=== PATIENT | female | born 1960 | race Caucasian/White ===

== ENCOUNTER 2019-01-18 15:32 | Outpatient (REF) | payer BC, SELFPAY | END 2019-01-18 15:52 | LOC: NCHCN 15:32 | PROVIDERS: PCP Nurse Practitioner Family; Visit Provider Nurse Practitioner Family | DX: R30.0 Dysuria (principal) | CPT/HCPCS: 87077; 87086; 87186 ==

== ENCOUNTER 2019-09-01 17:12 | Emergency (ER) | payer BC, SELFPAY ==
[2019-09-01] VITALS (33 sets, daily range): BP systolic 91–147; BP diastolic 46–89; PULSE 57–96; RESP 11–27; TEMP 37; O2SAT 93–100
--- NOTE | 2019-09-01 17:14 | ED.GENADUL_ITS ---
Discharge Plan Disposition Patient Disposition: HOME Condition: Stable Discharge Details Chief Complaint: GenMedical Clinical Impression: Pneumonia, Hypoglycemia Primary Care Provider: Sara Patterson ED Provider: Derek Dejesus Home Meds and New Rx's Prescriptions: New levofloxacin [Levaquin] 750 mg tablet 750 mg PO DAILY 5 Days Qty: 5 RF: 0 Continued omeprazole 20 MG capsule,delayed release(DR/EC) 20 mg PO DAILY Qty: 30 RF: 0 gabapentin 100 MG capsule 300 mg PO TID RF: 0 atorvastatin 10 mg tablet 10 mg PO DAILY RF: 0 lisinopril 20 mg tablet 20 mg PO DAILY RF: 0 Discharge Instructions Instructions: Pneumonia (ED) Additional Instructions: Take the antibiotics until finished. Drink plenty fluids and get plenty of rest. Eat a well-balanced diet. Refrain from excessive alcohol use. Follow-up with your primary care doctor in 1 week. Return to the emergency department with any worsening or new concerning symptoms. Discharge Data Discharge Physician: Nishi Barber Medical Decision Making <Nishi Barber DO - Last Filed: 09/01/19 19:36> 1720 -- 59-year-old female with a history of alcoholism, chronic renal disease and ascites, COPD pancreatitis and tobacco abuse who presents for generalized weakness and feelings of anxiety. Fingerstick glucose 37 per EMS, increased to 120s after D10. Patient is awake and alert, answering questions, appears mildly intoxicated. No focal deficits. No evidence of trauma. Will check screening labs, urinalysis, CT head and chest x-ray. Will give banana bag and tray of food. 1899 --labs and imaging reviewed. White blood cell count 12. Normal coags. Potassium 3.3. Magnesium 1.4. Bicarb 19.7. Anion gap 17.3. Troponin negative. Alcohol 217. Chest x-ray notes a right middle lobe opacity. CT head negative. In the setting of chronic cough, smoking and alcohol use with elevated with blood cell count, will treat for pneumonia. Will give a dose of potassium p.o. We will continue IV fluids. Awaiting to obtain urine sample. Pt states she would rather go home. She states that she feels much better. Repeat fingerstick 102. We will plan to continue to monitor glucose to ensure it stays within normal range and recheck BMP after additional fluids. 1999 --Case endorsed to Dr. Dejesus to follow-up on repeat BMP and urinalysis and final disposition. Medical Records Medical records reviewed: Yes I reviewed the patient's medical records. Imaging Data Radiologic Study: Radiologist's impression: CT Head Without Contrast Exam date and time: 09/01/2019 5:24 PM Age: 59 years old Clinical indication: Other: Generalized weakness, R/O acute CVA TECHNIQUE: Imaging protocol: Computed tomography of the head without contrast. Radiation optimization: All CT scans at this facility use at least one of these dose optimization techniques: automated exposure control; mA and/or kV adjustment per patient size (includes targeted exams where dose is matched to clinical indication); or iterative reconstruction. COMPARISON: CT HEAD AND CSPINE W/O CONTRAST 02/25/2017 10:14 AM FINDINGS: Brain: Normal. No hemorrhage. Unremarkable white matter. No mass effect. Ventricles: Normal. No ventriculomegaly. Bones/joints: Unremarkable. No acute fracture. Sinuses: Visualized sinuses are unremarkable. No fluid levels. Mastoid air cells: Visualized mastoid air cells are well aerated. Soft tissues: Unremarkable. IMPRESSION: No acute intracranial abnormality. XR Chest, 2 Views Exam date and time: 09/01/2019 6:13 PM Age: 59 years old Clinical indication: Other: Low blood sugar, R/O acute disease TECHNIQUE: Imaging protocol: XR of the chest Views: 2 views. COMPARISON: No relevant prior studies available. FINDINGS: Lungs: There is slight hyperexpansion of the lung brady, suggestive of emphysema. There is a patchy opacity in the right lower lung zone, concerning for pneumonia in the appropriate clinical setting. Pleural space: No pleural effusion. No pneumothorax. Heart/Mediastinum: Unremarkable. No cardiomegaly. Bones/joints: Unremarkable. IMPRESSION: Patchy opacity in the right lower lung zone concerning for pneumonia in the appropriate clinical setting. Lab Data Lab results reviewed: Yes I reviewed the patient's lab results. ECG Data Attestation: I personally reviewed and interpreted this ECG (s) as follows: Interpretation: Rate of 58, sinus, no acute ST elevation or depression. MT 160. QTc 454. QRS 98. <Derek Dejesus MD - Last Filed: 09/01/19 21:12> patient remains stable, ambulating with stable gait unassisted clinically sober without complaints. Second bmp minimal improvement in anion gap, she is requesting d/c as she is tolerating PO and feels well and has capacity to make her own decisions and understands risks of worsening anion gap acidosis including and disability. She will f/u with pcp and return precautions given HPI <Nishi Stanley Barber, DO - Last Filed: 09/01/19 19:36> General Mode of arrival: EMS . Date/Time Provider Initiated Documentation: 09/01/19 17:12 . Limitations to Documentation: no limitations . Information obtained by: patient . HPI Narrative: Patient is a 59-year-old female with a history of chronic alcoholism, tobacco abuse, chronic liver disease and cirrhosis, COPD and pancreatitis who presents with generalized weakness for the past several days. She states she has not been sleeping well due to anxiety and panic attacks from verbal arguments with her neighbors. She drinks alcohol daily and states she had a couple shots of vodka this morning which is not the usual alcohol of choice for her as she usually drinks wine. She states she has not been eating much. She denies any physical injury or trauma. She denies any unilateral weakness or numbness. She states she has a chronic smoker's cough but denies any fever, sputum production, chest pain or shortness of breath. She denies any abdominal pain, vomiting, diarrhea or urinary symptoms. She denies any recent travel. EMS states that her fasting sugar was 37. She was given a dose of D10 and her blood sugar increased to 120s. Related Data Home Medications Medication Instructions Recorded Confirmed gabapentin 300 mg PO TID 12/21/16 09/01/19 omeprazole 20 mg PO DAILY #30 capsule. 08/31/17 09/01/19 atorvastatin 10 mg PO DAILY 09/01/19 09/01/19 levofloxacin [Levaquin] 750 mg PO DAILY 5 Days #5 tab 09/01/19 lisinopril 20 mg PO DAILY 09/01/19 09/01/19 Previous Rx's Medication Instructions Recorded omeprazole 20 mg PO DAILY #30 capsule. 08/31/17 levofloxacin [Levaquin] 750 mg PO DAILY 5 Days #5 tab 09/01/19 Allergies Allergy/AdvReac Type Severity Reaction Status Date / Time bacitracin Allergy Mild localized Verified 09/01/19 17:27 [From Neosporin redness ([id number])] neomycin Allergy Mild localized Verified 09/01/19 17:27 [From Neosporin redness ([id number])] polymyxin B Allergy Mild localized Verified 09/01/19 17:27 [From Neosporin redness ([id number])] Review of Systems <Nishi Barber DO - Last Filed: 09/01/19 19:36> All systems reviewed & are unremarkable except as noted in HPI and below Constitutional Constitutional: Reports as per HPI, Denies chills, Denies fever(s) and Reports weakness Eyes Eyes: Denies blurry vision ENT Ears, Nose, Mouth, and Throat: Denies dizziness, Denies sore throat and Denies throat swelling Cardiovascular Cardiovascular: Denies chest pain and Denies dyspnea Respiratory Respiratory: Denies cough and Denies dyspnea Gastrointestinal Gastrointestinal: Denies abdominal pain, Denies diarrhea and Denies vomiting Genitourinary Genitourinary: Denies hematuria and Denies dysuria Musculoskeletal Musculoskeletal: Denies back pain and Denies numbness Integumentary/Breasts Skin/Breast: Denies lesions and Denies rash Neurologic Neurologic: Denies dizziness, Denies localized weakness, Denies numbness and Reports weakness Allergic/Immunologic Allergic/Immunologic: Denies throat swelling PFSH <Nishi Barber DO - Last Filed: 09/01/19 19:36> Medical History (Updated 09/01/19 @ 19:04 by Nishi Barber DO) Alcohol abuse Ascites Bilateral leg pain Bilateral lower extremity edema Cachexia Chest pain Chronic vomiting COPD (chronic obstructive pulmonary disease) Diastolic dysfunction Folate deficiency anemia Frequent falls Gastroesophageal reflux disease Hair loss Hepatic fibrosis Hx pulmonary embolism Hypomagnesemia Malnutrition Pancreatitis Tobacco dependence syndrome Ulcer of lower extremity Unintentional weight loss Vitamin D deficiency Surgical History (Updated 02/15/18 @ 14:34 by [employer] [place]) ENT/Nasal surgery (~2007) foot surgery (~2000) Ligation of fallopian tube (~1999) punch biopsy, skin of ankle, right lateral (11/24/16) negative for malignancy, sparse inflammation and reactive blood vessels Social History Smoking/Tobacco Use Status: Current every day Alcohol Intake: current Alcohol Intake frequency: 3 or more drinks per day Alcohol type: wine Drug use: Occasionally Substance use type: marijuana Do you feel safe at home: No Do you feel safe in your relationship?: Yes Additional Social history: has a new neighbor that is verbally abusive History History Para 0 Hx # Term Pregnancies Multiple births Hx # Pregnancies Ectopic pregnancies AB induced Hx Number of Living Children AB spontaneous Exam <Nishi Barber DO - Last Filed: 09/01/19 19:36> Const General: ill appearing chronically Orientation: alert and awake HENMT Head: normal to inspection Ears: hearing grossly normal bilaterally and external ears normal General nose exam: external nose normal Face and sinus: normal facial exam Mouth: oral mucosae normal Teeth and gingiva: dentition normal Throat: posterior oropharynx normal Eyes General: appearance normal, both eyes and all related structures Eyelids: eyelids normal Pupils: PERRL EOM: EOM intact bilaterally Neck Neck: normal visual inspection Lymphatic: no lymphadenopathy noted Chest Chest: normal inspection of the chest Resp Effort & Inspection: normal respiratory effort and able to speak in complete sentences Auscultation: clear to auscultation bilaterally Cardio Rate: regular rate Rhythm: regular rhythm GI Inspection: normal to inspection Palpation: soft, not firm, no guarding, no hepatosplenomegaly, no masses and nontender Auscultation: normal bowel sounds Back/Spine/Pelvis Cervical Spine: No cervical spinal tenderness Thoracic/Lumbar Spine: No thoracic spinal tenderness and No lumbar spinal tenderness Skin General skin exam: no rashes or lesions noted Neuro General: patient alert, patient awake and moves all extremities Cognition: normal cognition Speech: speech normal Gait: normal gait Motor: muscle tone normal throughout and strength 5/5 throughout Sensory Exam: no sensory deficits noted Extrem General: normal to inspection, full ROM and capillary refill normal Psych Appearance: disheveled Mental Status: mental status grossly normal Speech and Movement: speech and movement normal Mood: anxious mood Affect: irritable affect Thought Process: normal Sign Out <Nishi Barber DO - Last Filed: 09/01/19 19:36> Sign Out Data: Sign Out Comment: Follow-up on repeat BMP after fluids, urinalysis and final disposition. Patient would prefer to go home. If labs improve and patient continues to improve, ok to go home with family member or friend or RCT. Last updated by Nishi Barber DO at 09/01/19 19:38
--- NOTE | 2019-09-01 17:15 | DI.CT_ITS ---
EXAM: CT HEAD WO CLINICAL HISTORY: generalized weakness, r/o acute cva. TECHNIQUE: Imaging Protocol: Axial computed tomography images with coronal and sagittal reformatted images were created and reviewed COMPARISON: HEAD AND CSPINE W/O CONTRAST from 02/25/2017 FINDINGS: Ventricles and Extra axial spaces: Normal in size and morphology for the patient's age. Hemorrhage: None. Cerebral parenchyma: Normal. Midline shift: None. Brainstem/Cerebellum: Normal. Calvarium: Normal. Visualized Paranasal sinuses/Mastoids: Clear. Soft Tissues: Unremarkable. IMPRESSION: No acute intracranial process. RADIATION DOSE DELIVERED: Total DLP DATA REPOSITORY: All CT scans at this facility are submitted to the National Radiology Data Registry (NRDR) Dose Index Registry (DIR) with the [employer] (ACR). RADIATION OPTIMIZATION: All CT scans at this facility use at least one of these dose optimization te chniques: automated exposure control; mA and/or kV adjustment per patient size (includes targeted exa ms where dose is matched to clinical indication); or iterative reconstruction.
[2019-09-01 17:58] LABS: Abs Immature Grans 0.06 k/cumm (0.0-0.09); Absolute Basophil Count 0.07 k/cumm (0.0-0.2); Absolute Eosinophil Count 0.02 k/cumm (0.0-0.7); Absolute Monocyte Count 0.48 k/cumm (0.11-0.7); Basophils % 0.6; Eosinophils % 0.2; HCT 37.5 % (36.0-46.0); HGB 12.6 g/dL (12.0-15.5); Immature Grans % 0.5 %; Mean Corp. HGB Concentration 33.6 g/dL (32.0-36.0); Mean Corpuscular Hemoglobin 34.2 pg (27.0-33.0); Mean Corpuscular Volume 101.9 fL (80-95); Mean Platelet Volume 10.4 fL (8.0-11.0); Monocytes % 3.9; Neutrophils % 80.8; Platelet Count 346 x1000/uL (130-400); RBC 3.68 m/cumm (4.00-5.20); RBC Distribution Width 16.1 % (11.7-14.6); White Blood Cell Count 12.39 k/cumm (4.4-10.8)
[2019-09-01 18:09] LABS: Absolute Lymphocyte Count 1.73 k/cumm (1.2-3.4); Absolute Neutrophil Count 10.01 k/cumm (1.2-6.7)
[2019-09-01 18:23] LABS: INR 0.9 (0.9-1.1); PTT Activated 24.5 sec (21.0-31.4); Prothrombin Time 9.5 sec (9.3-11.0)
[2019-09-01] MEDS: MAGNESIUM SULFATE 8.12 MEQ, MULTIVITAMIN 10 ML, THIAMINE 100 MG, FOLIC ACID 1 MG in Nor... 168.867 MG IV (18:25)
--- NOTE | 2019-09-01 18:25 | DI.RAD_ITS ---
EXAM: XR CHEST 2V PA LATERAL CLINICAL HISTORY: low blood sugar, r/o acute disease TECHNIQUE: 2D digital imaging was performed. COMPARISON: CHEST 2 VIEWS PA,LAT from 11/28/2016 FINDINGS: Exam is somewhat limited by overlying clothing and/or sheets. There is a question of a right lower lo be infiltrate. There are underlying emphysematous and fibrotic changes. Heart size is within normal l imits. IMPRESSION: Question of a right lower infiltrate.
[2019-09-01] MEDS: Thiamine 200 MG/2 ML VIAL (18:28)
[2019-09-01] MEDS: Folic Acid 50 MG/10 ML VIAL (18:28)
[2019-09-01] MEDS: Normal Saline 1,000 ML 1000 ML IV ×2 (18:29→19:42)
[2019-09-01] MEDS: Normal Saline Flush 10 ML SYR IVP (18:29)
--- NOTE | 2019-09-01 18:30 | DI.VRAD_ITS ---
PROCEDURE INFORMATION: Exam: CT Head Without Contrast Exam date and time: 09/01/2019 5:24 PM Age: 59 years old Clinical indication: Other: Generalized weakness, R/O acute CVA TECHNIQUE: Imaging protocol: Computed tomography of the head without contrast. Radiation optimization: All CT scans at this facility use at least one of these dose optimization techniques: automated exposure control; mA and/or kV adjustment per patient size (includes targeted exams where dose is matched to clinical indication); or iterative reconstruction. COMPARISON: CT HEAD AND CSPINE W/O CONTRAST 02/25/2017 10:14 AM FINDINGS: Brain: Normal. No hemorrhage. Unremarkable white matter. No mass effect. Ventricles: Normal. No ventriculomegaly. Bones/joints: Unremarkable. No acute fracture. Sinuses: Visualized sinuses are unremarkable. No fluid levels. Mastoid air cells: Visualized mastoid air cells are well aerated. Soft tissues: Unremarkable. IMPRESSION: No acute intracranial abnormality. Dictated and Authenticated by: Chery Connell MD. Ordering:ZAY Almodovar MD
--- NOTE | 2019-09-01 18:34 | DI.VRAD_ITS ---
PROCEDURE INFORMATION: Exam: XR Chest, 2 Views Exam date and time: 09/01/2019 6:13 PM Age: 59 years old Clinical indication: Other: Low blood sugar, R/O acute disease TECHNIQUE: Imaging protocol: XR of the chest Views: 2 views. COMPARISON: No relevant prior studies available. FINDINGS: Lungs: There is slight hyperexpansion of the lung brady, suggestive of emphysema. There is a patchy opacity in the right lower lung zone, concerning for pneumonia in the appropriate clinical setting. Pleural space: No pleural effusion. No pneumothorax. Heart/Mediastinum: Unremarkable. No cardiomegaly. Bones/joints: Unremarkable. IMPRESSION: Patchy opacity in the right lower lung zone concerning for pneumonia in the appropriate clinical setting. Dictated and Authenticated by: Chery Connell MD. Ordering:ZAY Almodovar MD
[2019-09-01 18:57] LABS: ALT 62 U/L (14-59); AST 113 U/L (15-37); Albumin 3.8 g/dL (3.4-5.0); Alkaline Phosphatase 80 U/L (46-116); Anion Gap 17.3 mmol/L (3-11); BUN 22 mg/dL (7-18); Bilirubin, Total 0.3 mg/dL (0.2-1.0); CO2 19.7 mmol/L (21.0-32.0); CREATININE 0.88 mg/dL (0.55-1.02); Calcium 8.4 mg/dL (8.5-10.1); Chloride 99 mmol/L (98-107); ETHANOL BLOOD 217.9 mg/dL (<3); Glucose 96 mg/dL (74-106); Magnesium 1.4 mg/dL (1.8-2.4); Potassium 3.3 mmol/L (3.5-5.1); Sodium 136 mmol/L (136-145)
[2019-09-01 19:01] LABS: Troponin I < 0.05 ng/Ml (<0.06)
[2019-09-01] MEDS: levoFLOXacin 500 MG, levoFLOXacin 250 MG 750 MG PO (19:20)
[2019-09-01] MEDS: Potassium Chloride 20 MEQ TABCR 40 MEQ PO (19:20)
[2019-09-01 20:55] LABS: Anion Gap 16.7 mmol/L (3-11); BUN 19 mg/dL (7-18); CO2 16.3 mmol/L (21.0-32.0); Calcium 7.4 mg/dL (8.5-10.1); Chloride 103 mmol/L (98-107); Glucose 155 mg/dL (74-106); Potassium 3.1 mmol/L (3.5-5.1); Sodium 136 mmol/L (136-145)
[2019-09-01 20:57] LABS: Bilirubin Negative (Negative); Blood Negative (Negative); Clarity Clear (Clear); Glucose Negative (Negative); Ketones Trace mg/dL (Negative); Leukocyte Esterase Negative (Negative); Nitrite Negative (Negative); Urobilinogen 0.2 EU/dL (Up TO 0.2); pH 5.5 (5-8)
== END 2019-09-01 21:25 | disposition home or self-care (01) ==
PROVIDERS: Physician Assistant; Emergency Provider Emergency Medicine; PCP Nurse Practitioner Family
DX: J18.9 Pneumonia, unspecified organism (principal); E16.2 Hypoglycemia, unspecified; F10.220 Alcohol dependence with intoxication, uncomplicated; Y90.7 Blood alcohol level of 200-239 mg/100 ml; E87.6 Hypokalemia; R91.1 Solitary pulmonary nodule; K70.31 Alcoholic cirrhosis of liver with ascites; J44.9 Chronic obstructive pulmonary disease, unspecified; F17.210 Nicotine dependence, cigarettes, uncomplicated
CPT/HCPCS: 36415; 36416; 80048; 80053; 82962; 93005; 96361; 96365; 96366; 99285; 70450; 71046; 80320; 81003; 83735; 84484; 85025; 85610; 85730; 93010

== ENCOUNTER 2020-04-18 09:17 | Emergency (ER) | payer BC, SELFPAY ==
--- NOTE | 2020-04-18 09:15 | DI.RAD_ITS ---
EXAM: XR SHOULDER RT COMPLETE 2+V CLINICAL HISTORY: Fall, Pain. TECHNIQUE: 2D digital imaging was performed. COMPARISON: No exams were available for comparison FINDINGS: BONES: No acute fracture is present. No bony destructive lesion is seen. JOINTS: No dislocation present. Mild degenerative changes of the acromioclavicular joint. SOFT TISSUE: Atherosclerosis. IMPRESSION: No acute fracture or dislocation. DATA REPOSITORY: RADIATION DOSE DELIVERED:
--- NOTE | 2020-04-18 09:15 | DI.RAD_ITS ---
EXAM: XR WRIST RT COMPLETE CLINICAL HISTORY: FOOsH injury, R/O fracture. TECHNIQUE: 2D digital imaging was performed. COMPARISON: No exams were available for comparison FINDINGS: BONES: There is an acute mildly comminuted fracture of the ulnar styloid process. On the lateral vie w, there is a lucency seen at the anterior aspect of the distal metaphysis of the radius suspicious f or nondisplaced fracture no bony destructive lesion is seen. JOINTS: The carpal bones are normally aligned. SOFT TISSUE: Soft tissue swelling about the wrist. IMPRESSION: 1. Mildly comminuted acute fracture of the ulnar styloid process. 2. On the lateral view there is a lucency through the at anterior aspect of the distal metaphysis of the radius. This may represent a nondisplaced fracture. CT scan should be considered for further ev aluation. DATA REPOSITORY: RADIATION DOSE DELIVERED:
[2020-04-18 09:23] VITALS: BP 221/124; PULSE 110; RESP 18; TEMP 36.7; O2SAT 97
--- NOTE | 2020-04-18 09:26 | ED.GENADUL_ITS ---
Discharge Plan Disposition Patient Disposition: HOME Condition: Stable Discharge Details Clinical Impression: Right distal ulnar fracture Primary Care Provider: Sara Patterson ED Provider: Whitley Brown Home Meds and New Rx's Prescriptions: Continued omeprazole 20 MG capsule,delayed release(DR/EC) 20 mg PO DAILY Qty: 30 RF: 0 gabapentin 100 MG capsule 300 mg PO TID RF: 0 atorvastatin 10 mg tablet 10 mg PO DAILY RF: 0 lisinopril 20 mg tablet 20 mg PO DAILY RF: 0 Discharge Instructions Instructions: Wrist Fracture in Adults (ED) Additional Instructions: Rest, Ice, Compression, Elevation. Please take Tylenol or Ibuprofen with food every 4-6 hours as needed for pain and swelling. Follow up with Orthopedic clinic in 1-2 weeks. Wear splint as much as possible. Referrals: Jose Alfredo Mejia MD [ [facility] STAFF PHYSICIAN] - Discharge Data Discharge Date/Time-TO BE ENTERED AT DEPARTURE: 04/18/20 10:40 Medical Decision Making 60-year-old female presents to the ED with chief complaint of right wrist and right shoulder pain status post a slip and fall on the ice last night. Patient states that she fell forward with her arms outstretched. She denies any head injuries or loss of consciousness no other injuries or complaints at this time. She did not take any Tylenol or ibuprofen prior to arrival. She does have a history of chronic liver disease, alcoholism, hypokalemia, hypomagnesemia. Her hand is mildly swollen, ring was removed upon arrival to the ER. No obvious deformity noted. X-ray of right wrist and right shoulder ordered. Wrist Xray: FINDINGS: BONES: There is an acute mildly comminuted fracture of the ulnar styloid process. On the lateral view, there is a lucency seen at the anterior aspect of the distal metaphysis of the radius suspicious for nondisplaced fracture no bony destructive lesion is seen. JOINTS: The carpal bones are normally aligned. SOFT TISSUE: Soft tissue swelling about the wrist. IMPRESSION: 1. Mildly comminuted acute fracture of the ulnar styloid process. 2. On the lateral view there is a lucency through the at anterior aspect of the distal metaphysis of the radius. This may represent a nondisplaced fracture. CT scan should be considered for further evaluation. Shoulder Xray: FINDINGS: BONES: No acute fracture is present. No bony destructive lesion is seen. JOINTS: No dislocation present. Mild degenerative changes of the acromioclavicular joint. SOFT TISSUE: Atherosclerosis. IMPRESSION: No acute fracture or dislocation. Patient was placed in a universal wrist splint discussed x-ray results with patient who verbalizes understanding. Discussed home care including rest, ice, compression, elevation taking Tylenol or ibuprofen and following up with orthopedics in 1 to 2 weeks. Patient verbalized understanding. This text was generated using [employer] system, please disregard any oddities of phrase or misspellings. HPI General Mode of arrival: ambulatory . Date/Time Provider Initiated Documentation: 04/18/20 09:18 . Limitations to Documentation: no limitations . Information obtained by: patient . HPI Narrative: 60-year-old female presents to the ED with chief complaint of right wrist and right shoulder pain status post a slip and fall on the ice last night. Patient states that she fell forward with her arms outstretched. She denies any head injuries or loss of consciousness no other injuries or complaints at this time. She did not take any Tylenol or ibuprofen prior to arrival. She does have a history of chronic liver disease, alcoholism, hypokalemia, hypomagnesemia. Her hand is mildly swollen, ring was removed upon arrival to the ER. No obvious deformity noted. Related Data Home Medications Medication Instructions Recorded Confirmed gabapentin 300 mg PO TID 12/21/16 04/18/20 omeprazole 20 mg PO DAILY #30 capsule. 08/31/17 04/18/20 atorvastatin 10 mg PO DAILY 09/01/19 04/18/20 lisinopril 20 mg PO DAILY 09/01/19 04/18/20 Previous Rx's Medication Instructions Recorded omeprazole 20 mg PO DAILY #30 capsule. 08/31/17 Allergies Allergy/AdvReac Type Severity Reaction Status Date / Time bacitracin Allergy Mild localized Verified 04/18/20 09:29 [From Neosporin redness ([id number])] neomycin Allergy Mild localized Verified 04/18/20 09:29 [From Neosporin redness ([id number])] polymyxin B Allergy Mild localized Verified 04/18/20 09:29 [From Neosporin redness ([id number])] General RAHEEM: 3 Review of Systems Narrative: Constitutional: Negative for weight loss, alert and oriented, well groomed, normal body habitus, appears comfortable. HEENT: Denies trauma, headaches, blurry vision, nasal discharge, sore throat, trouble swallowing. Chest: Denies chest pain, palpitations, irregular rhythm, hypertension. Respiratory: Denies Shortness of breath, cough, hemoptysis. GI: Denies abdominal pain, nausea, vomiting, diarrhea, constipation. : Denies dysuria, hematuria, flank pain, rectal bleeding. Musculoskeletal: Right wrist and right shoulder tenderness. Neuro: Denies dizziness, blurry vision, weakness, syncope, headache or facial numbness. Hematologic: Denies easy bruising, intolerance to heat or cold, hair loss. [facility] Medical History Alcohol abuse Ascites Bilateral leg pain Bilateral lower extremity edema Cachexia Chest pain Chronic vomiting COPD (chronic obstructive pulmonary disease) Diastolic dysfunction Folate deficiency anemia Frequent falls Gastroesophageal reflux disease Hair loss Hepatic fibrosis Hx pulmonary embolism Hypomagnesemia Malnutrition Pancreatitis Tobacco dependence syndrome Ulcer of lower extremity Unintentional weight loss Vitamin D deficiency Surgical History ENT/Nasal surgery (~2007) foot surgery (~2000) Ligation of fallopian tube (~1999) punch biopsy, skin of ankle, right lateral (11/24/16) negative for malignancy, sparse inflammation and reactive blood vessels Social History Smoking/Tobacco Use Status: Current every day Tobacco Type: cigarettes Smoking risk assessment performed?: Yes Alcohol Intake: current Alcohol Intake frequency: a few times a week Alcohol type: wine Drug use: Occasionally Substance use type: marijuana Do you feel safe at home: Yes Do you feel safe in your relationship?: Yes History History Para 0 Hx # Term Pregnancies Multiple births Hx # Pregnancies Ectopic pregnancies AB induced Hx Number of Living Children AB spontaneous Exam Narrative Exam Narrative: Constitutional: Alert and oriented x3. Appears stated age. Normal body habitus. Head: Normocephalic, no trauma. Eyes: Pupils PERRLA, Red reflex noted, EOM's intact. Eyelids symmetrical without lesions, discharge, or swelling. ENT: Bilateral TM's WNL, External ear normal to inspection, no mastoid TTP, swelling, or erythema, Nasal turbinates WNL, no nasal discharge. Normal dentition, Posterior pharynx WNL, no exudate. Chest: RRR, Normal S1, S2, distal pulses intact. Resp: Lungs clear to auscultation bilaterally, no wheezes, rales, or rhonchi. Musculoskeletal: Normal gait, complaining of right wrist tenderness. Right shoulder tenderness with palpation. No obvious deformity. Distal radial pulses intact distal CMS intact. Skin: No suspicious rashes or lesions. Capillary refill less than 2 sec. Neurologic: Cranial nerves II-XII intact. Alert and oriented x 3. DTR's intact. Hematologic/Lymphatic: No ecchymosis, no lymphadenopathy.
[2020-04-18] MEDS: Ibuprofen 400 MG TAB PO (09:38)
== END 2020-04-18 10:40 | disposition home or self-care (01) ==
PROVIDERS: Emergency Provider Registered Nurse Emergency; PCP Nurse Practitioner Family
DX: S52.611A Displaced fracture of right ulna styloid process, initial encounter for closed fracture (principal); M25.511 Pain in right shoulder; W00.0XXA Fall on same level due to ice and snow, initial encounter; J44.9 Chronic obstructive pulmonary disease, unspecified; F17.210 Nicotine dependence, cigarettes, uncomplicated
CPT/HCPCS: 25650; 99281; 73030; 73110

== ENCOUNTER 2020-08-12 08:39 | Inpatient (IN) | payer BC, SELFPAY ==
[2020-08-12] VITALS (11 sets, daily range): BP systolic 123–169; BP diastolic 62–124; PULSE 68–98; RESP 15–22; TEMP 36.2–36.6; O2SAT 94–100
--- NOTE | 2020-08-12 08:45 | RT.EKG_ITS ---
APPROVED REPORT Exam: Resting ECG Patient Location: E HR:92 bpm ECG Measurements Heart Rate 92 AXIS MI 138 P 79 QRSd 106 QRS 30 QT 395 T 41 QTc 489 Conclusion Sinus rhythm...normal P axis, V-rate 60- 99
[2020-08-12] MEDS: Normal Saline 1,000 ML 1000 ML IV (09:12)
[2020-08-12 09:15] LABS: Abs Immature Grans 0.04 10^3/uL (0.0-0.06); Absolute Basophil Count 0.05 10^3/uL (0.0-0.2); Absolute Eosinophil Count 0.02 10^3/uL (0.0-0.7); Absolute Neutrophil Count 5.81 10^3/uL (1.2-6.7); Basophils % 0.6; Eosinophils % 0.2; HCT 40.2 % (36.0-46.0); Immature Grans % 0.5; Lymphocytes % 19.2; MCH 32.6 pg (27.0-33.0); MCHC 34.8 % (32.0-36.0); MCV 93.5 fL (80-95); MPV 10.9 fL (8.0-11.0); Monocytes % 9.6; Neutrophils % 69.9; Nucleated RBC 0 %; Platelet Count 220 10^3/uL (130-400); RDW 13.1 % (11.7-14.6); RDW-SD 44.5 fL; WBC 8.32 10^3/uL (4.4-10.8)
[2020-08-12 09:28] LABS: ALT 39 U/L (14-59); AST 51 U/L (15-37); Albumin 3.5 g/dL (3.4-5.0); Alkaline Phosphatase 71 U/L (46-116); Anion Gap 13.6 mmol/L (3-11); BUN 10 mg/dL (7-18); Bilirubin, Total 0.6 mg/dL (0.2-1.0); CO2 23.4 mmol/L (21.0-32.0); CREATININE 0.8 mg/dL (0.55-1.02); Chloride 94 mmol/L (98-107); Glucose 110 mg/dL (74-106); Potassium 3.5 mmol/L (3.5-5.1); Sodium 131 mmol/L (136-145); Total Protein 7.5 g/dL (6.4-8.2)
[2020-08-12 09:33] LABS: Troponin I < 0.05 ng/mL (<0.06)
[2020-08-12] MEDS: Ondansetron 4 MG/2 ML VIAL IVP (09:36)
[2020-08-12] MEDS: Lactated Ringers 1,000 ML 1000 ML IV (09:41)
[2020-08-12] MEDS: Calcium Chloride 1000 MG/10 ML SYR IVP (10:02)
[2020-08-12] MEDS: Normal Saline 100 ML 400 ML (10:06)
--- NOTE | 2020-08-12 10:11 | ED.GENADUL_ITS ---
Discharge Plan Disposition Patient Disposition: [facility] INPATIENT Condition: Stable Discharge Details Clinical Impression: Hypomagnesemia, Hypocalcemia Primary Care Provider: Sara Patterson ED Provider: Juan Strange [place] Meds and New Rx's Prescriptions: No Action omeprazole 20 MG capsule,delayed release(DR/EC) 20 mg PO DAILY Qty: 30 RF: 0 gabapentin 100 MG capsule 300 mg PO TID RF: 0 atorvastatin 10 mg tablet 10 mg PO DAILY RF: 0 lisinopril 20 mg tablet 20 mg PO DAILY RF: 0 Medical Decision Making 60-year-old female with past medical history of alcohol abuse, chronic liver disease, COPD, folate deficiency, GERD, hypomagnesemia, pancreatitis, current smoker, presenting to the ER today for a few day history of nausea, vomiting, and generalized weakness. She reports her last alcoholic drink was on Tuesday, 2 mugs of Baileys cream. Examination reveals positive Trousseau sign. Patient placed on school bus monitor. Will obtain IV access, give IV fluids, Zofran, pursue cardiac work-up and EKG. Laboratory values reveal a white blood cell count of 8.32 hemoglobin 14 hematocrit 14.2 platelet count 220. Sodium 131 potassium 3.5 chloride 94, BUN 10 creatinine 0.8 with a GFR greater than 60. Glucose 110. Calcium 7.0, magnesium critical at 0.2, AST 51, troponin less than 0.05. Alcohol less than 3. Will add on a parathyroid hormone. Case discussed with Dr. Sterling who personally evaluated the patient. Patient medicated with 1 g IV calcium chloride and 2 g magnesium IV. Covid swab pending. Discussed laboratory values with patient, she is agreeable to admission for electrolyte replenishment and stabilization. Case discussed with our hospitalist team, Dr. Squires, who is agreeable to admission. Medical Records Medical records reviewed: Yes I reviewed the patient's medical records. Imaging Data Radiologic Study: Attestation: I personally reviewed and interpreted this imaging study as follows: Imaging: X-Ray Radiologist's impression: Chest x-ray negative Lab Data Lab results reviewed: Yes I reviewed the patient's lab results. Labs: Laboratory Tests Range/Units 08/12/20 08/12/20 08/12/20 09:02 09:02 09:02 WBC (4.4-10.8) 10^3/uL 8.32 RBC (3.93-5.22) 10^6/uL 4.30 Hgb (11.2-15.7) g/dL 14.0 Hct (36.0-46.0) % 40.2 MCV (80-95) fL 93.5 MCH (27.0-33.0) pg 32.6 MCHC (32.0-36.0) % 34.8 RDW (11.7-14.6) % 13.1 Plt Count (130-400) 10^3/uL 220 MPV (8.0-11.0) fL 10.9 Immature Gran % 0.5 Neutrophils % 69.9 Lymphocytes % 19.2 Monocytes % 9.6 Eosinophils % 0.2 Basophils % 0.6 Nucleated RBC % % 0 Absolute Neutrophils (1.2-6.7) 10^3/uL 5.81 Absolute Lymphocytes (1.2-3.4) 10^3/uL 1.60 Absolute Monocytes (0.1-0.8) 10^3/uL 0.80 Absolute Eosinophils (0.0-0.7) 10^3/uL 0.02 Absolute Basophils (0.0-0.2) 10^3/uL 0.05 Sodium (136-145) mmol/L 131 L Potassium (3.5-5.1) mmol/L 3.5 Chloride (98-107) mmol/L 94 L Carbon Dioxide (21.0-32.0) mmol/L 23.4 Anion Gap (3-11) mmol/L 13.6 H BUN (7-18) mg/dL 10 Creatinine (0.55-1.02) mg/dL 0.8 Estimated GFR/1.73 m2 (mL/min/1.73m2) >= 60.00 Glucose (74-106) mg/dL 110 H Calcium (8.5-10.1) mg/dL 7.0 L Magnesium (1.8-2.4) mg/dL 0.2 L* Total Bilirubin (0.2-1.0) mg/dL 0.6 AST (15-37) U/L 51 H ALT (14-59) U/L 39 Alkaline Phosphatase (46-116) U/L 71 Troponin I (<0.06) ng/mL < 0.05 Total Protein (6.4-8.2) g/dL 7.5 Albumin (3.4-5.0) g/dL 3.5 Ethyl Alcohol (<3) mg/dL < 3.0 COVID-19 Source Range/Units 08/12/20 10:15 WBC (4.4-10.8) 10^3/uL RBC (3.93-5.22) 10^6/uL Hgb (11.2-15.7) g/dL Hct (36.0-46.0) % MCV (80-95) fL MCH (27.0-33.0) pg MCHC (32.0-36.0) % RDW (11.7-14.6) % Plt Count (130-400) 10^3/uL MPV (8.0-11.0) fL Immature Gran % Neutrophils % Lymphocytes % Monocytes % Eosinophils % Basophils % Nucleated RBC % % Absolute Neutrophils (1.2-6.7) 10^3/uL Absolute Lymphocytes (1.2-3.4) 10^3/uL Absolute Monocytes (0.1-0.8) 10^3/uL Absolute Eosinophils (0.0-0.7) 10^3/uL Absolute Basophils (0.0-0.2) 10^3/uL Sodium (136-145) mmol/L Potassium (3.5-5.1) mmol/L Chloride (98-107) mmol/L Carbon Dioxide (21.0-32.0) mmol/L Anion Gap (3-11) mmol/L BUN (7-18) mg/dL Creatinine (0.55-1.02) mg/dL Estimated GFR/1.73 m2 (mL/min/1.73m2) Glucose (74-106) mg/dL Calcium (8.5-10.1) mg/dL Magnesium (1.8-2.4) mg/dL Total Bilirubin (0.2-1.0) mg/dL AST (15-37) U/L ALT (14-59) U/L Alkaline Phosphatase (46-116) U/L Troponin I (<0.06) ng/mL Total Protein (6.4-8.2) g/dL Albumin (3.4-5.0) g/dL Ethyl Alcohol (<3) mg/dL COVID-19 Source Nasal/nares ECG Data Attestation: I personally reviewed and interpreted this ECG (s) as follows: Interpretation: Please see official report by Dr. Sterling. Sinus rhythm. Ventricular rate of 92. No STEMI. HPI General Mode of arrival: ambulatory . Date/Time Provider Initiated Documentation: 08/12/20 08:41 . Limitations to Documentation: no limitations . Information obtained by: patient . HPI Narrative: This is a 60-year-old female with past medical history of alcohol abuse, current smoker, macrocytic anemia, chronic liver disease, folate deficiency, hypomagnesemia, hypokalemia, presenting to the ER today reporting generalized weakness and not feeling well for the past 2-3 days. She states that she often gets these spells but they typically only last for a couple of days. This is lasted longer. She has had intermittent nausea and vomiting as well. She denies any pain whatsoever. Denies headache, visual changes, neck pain, chest pain, shortness of breath, back pain abdominal pain, dysuria or hematuria. Denies focal weakness. Does report a couple episodes of loose stool of the past couple of days. Also reports decreased p.o. intake. She states that she drinks alcohol approximately 3 times a week and when she does drink, she reports a couple drinks. She last drink on Tuesday, and drink 2 mugs of Baileys. She denies alcohol withdrawals or any alcohol withdrawal seizures. Related Data Home Medications Medication Instructions Recorded Confirmed gabapentin 300 mg PO TID 12/21/16 08/12/20 omeprazole 20 mg PO DAILY #30 capsule. 08/31/17 08/12/20 atorvastatin 10 mg PO DAILY 09/01/19 08/12/20 lisinopril 20 mg PO DAILY 09/01/19 08/12/20 Previous Rx's Medication Instructions Recorded omeprazole 20 mg PO DAILY #30 capsule. 08/31/17 Allergies Allergy/AdvReac Type Severity Reaction Status Date / Time bacitracin Allergy Mild localized Verified 05/05/20 10:50 [From Neosporin redness ([id number])] neomycin Allergy Mild localized Verified 05/05/20 10:50 [From Neosporin redness ([id number])] polymyxin B Allergy Mild localized Verified 05/05/20 10:50 [From Neosporin redness ([id number])] General Stated Complaint: Dizzy/Sync RAHEEM: 3 Review of Systems Constitutional Constitutional: Reports fatigue, Denies fever(s) and Denies headache(s) Eyes Eyes: Denies change in vision ENT Ears, Nose, Mouth, and Throat: Denies headache(s) and Denies neck pain Cardiovascular Cardiovascular: Denies chest pain and Denies dyspnea Respiratory Respiratory: Denies cough and Denies dyspnea Gastrointestinal Gastrointestinal: Denies abdominal pain, Denies constipation, Reports loose stools, Reports nausea and Reports vomiting Genitourinary Genitourinary: Denies dysuria Musculoskeletal Musculoskeletal: Denies back pain, Denies neck pain, Denies numbness and Denies tingling Integumentary/Breasts Skin/Breast: Denies rash Neurologic Neurologic: Denies headache(s), Denies numbness, Denies tingling and Reports weakness (Generalized) Endocrine Endocrine: Reports fatigue Hematologic/Lymphatic Hematologic/Lymphatic: Denies easy bleeding and Denies easy bruising PFSH Medical History Alcohol abuse Ascites Bilateral leg pain Bilateral lower extremity edema Cachexia Chest pain Chronic vomiting COPD (chronic obstructive pulmonary disease) Diastolic dysfunction Folate deficiency anemia Frequent falls Gastroesophageal reflux disease Hair loss Hepatic fibrosis Hx pulmonary embolism Hypomagnesemia Malnutrition Pancreatitis Tobacco dependence syndrome Ulcer of lower extremity Unintentional weight loss Vitamin D deficiency Surgical History ENT/Nasal surgery (~2007) foot surgery (~2000) Ligation of fallopian tube (~1999) punch biopsy, skin of ankle, right lateral (11/24/16) negative for malignancy, sparse inflammation and reactive blood vessels Social History Smoking/Tobacco Use Status: Current every day Tobacco Type: cigarettes Smoking risk assessment performed?: Yes Alcohol Intake: current Alcohol Intake frequency: a few times a week Alcohol type: wine Drug use: Occasionally Substance use type: marijuana Do you feel safe at home: Yes Do you feel safe in your relationship?: Yes History History Para 0 Hx # Term Pregnancies Multiple births Hx # Pregnancies Ectopic pregnancies AB induced Hx Number of Living Children AB spontaneous Exam Const General: cooperative, healthy appearing, comfortable and no acute distress Orientation: alert, awake and oriented x3 HENMT Head: normal to inspection, normocephalic and atraumatic Mouth: moist mucous membranes abnormal (Slightly dry) Throat: posterior oropharynx normal Eyes General: appearance normal, both eyes and all related structures Alignment and Position: alignment normal Periorbital: periorbital findings normal Eyelids: eyelids normal Conjunctivae: conjunctivae normal Sclera: sclerae normal Cornea: corneas normal Pupils: PERRL EOM: EOM intact bilaterally Direct ophthalmoscopy: normal light reflex Neck Neck: normal visual inspection, full ROM, trachea midline, supple and nontender Resp Effort & Inspection: normal respiratory effort and able to speak in complete sentences Auscultation: clear to auscultation bilaterally Cardio Rate: regular rate Rhythm: regular rhythm GI Palpation: soft, not firm, no guarding and nontender Auscultation: normal bowel sounds Back/Spine/Pelvis Back: No back tenderness Skin General skin exam: no rashes or lesions noted Neuro General: patient alert, patient awake, patient oriented x3, moves all extremities and no focal motor deficits Cranial Nerves: CN's II-XI intact bilaterally Cognition: normal cognition Speech: speech normal Gait: normal gait Motor: muscle tone normal throughout and strength 5/5 throughout Sensory Exam: no sensory deficits noted Other: Positive Trousseau sign Extrem General: normal to inspection, full ROM, capillary refill normal, no pedal edema and no calf tenderness Psych Appearance: grossly normal Mental Status: mental status grossly normal Course Vital Signs Vital signs: Vital Signs Temperature 36.2 C L 08/12/20 08:44 Pulse 98 H 08/12/20 08:44 Respiratory Rate 16 08/12/20 08:44 Blood Pressure 169/93 H 08/12/20 08:44 Pulse Oximetry 100 08/12/20 08:44 Temperature 36.2 C L 08/12/20 08:44 Temperature Source Skin 08/12/20 08:44 Pulse 98 H 08/12/20 08:44 Respiratory Rate 16 08/12/20 08:44 Respiratory Effort Non-Labored 08/12/20 08:51 Respiratory Depth Normal 08/12/20 08:51 Blood Pressure 169/93 H 08/12/20 08:44 Blood Pressure Position Sitting 08/12/20 08:44 Pulse Oximetry 100 08/12/20 08:44 Oxygen Delivery Method Room Air 08/12/20 08:44 Oxygen Flow Rate 0 08/12/20 08:44 Lab/Test Results Lab/Test Results: Laboratory Tests Range/Units 08/12/20 08/12/20 09:02 09:02 WBC (4.4-10.8) 10^3/uL 8.32 RBC (3.93-5.22) 10^6/uL 4.30 Hgb (11.2-15.7) g/dL 14.0 Hct (36.0-46.0) % 40.2 MCV (80-95) fL 93.5 MCH (27.0-33.0) pg 32.6 MCHC (32.0-36.0) % 34.8 RDW (11.7-14.6) % 13.1 Plt Count (130-400) 10^3/uL 220 MPV (8.0-11.0) fL 10.9 Immature Gran % 0.5 Neutrophils % 69.9 Lymphocytes % 19.2 Monocytes % 9.6 Eosinophils % 0.2 Basophils % 0.6 Nucleated RBC % % 0 Absolute Neutrophils (1.2-6.7) 10^3/uL 5.81 Absolute Lymphocytes (1.2-3.4) 10^3/uL 1.60 Absolute Monocytes (0.1-0.8) 10^3/uL 0.80 Absolute Eosinophils (0.0-0.7) 10^3/uL 0.02 Absolute Basophils (0.0-0.2) 10^3/uL 0.05 Sodium (136-145) mmol/L 131 L Potassium (3.5-5.1) mmol/L 3.5 Chloride (98-107) mmol/L 94 L Carbon Dioxide (21.0-32.0) mmol/L 23.4 Anion Gap (3-11) mmol/L 13.6 H BUN (7-18) mg/dL 10 Creatinine (0.55-1.02) mg/dL 0.8 Estimated GFR/1.73 m2 (mL/min/1.73m2) >= 60.00 Glucose (74-106) mg/dL 110 H Calcium (8.5-10.1) mg/dL 7.0 L Magnesium (1.8-2.4) mg/dL 0.2 L* Total Bilirubin (0.2-1.0) mg/dL 0.6 AST (15-37) U/L 51 H ALT (14-59) U/L 39 Alkaline Phosphatase (46-116) U/L 71 Troponin I (<0.06) ng/mL < 0.05 Total Protein (6.4-8.2) g/dL 7.5 Albumin (3.4-5.0) g/dL 3.5
[2020-08-12 10:18] LABS: ETHANOL BLOOD < 3.0 mg/dL (<3)
[2020-08-12 10:21] LABS: Source Nasal/Nares
[2020-08-12] MEDS: MAGNESIUM SULFATE 2 GM/50 ML BAG IVPB (10:24)
--- NOTE | 2020-08-12 10:47 | DI.RAD_ITS ---
EXAM: XR CHEST 2V PA LATERAL CLINICAL HISTORY: weakness TECHNIQUE: 2D digital imaging was performed. COMPARISON: CR,XR XR CHEST 2V PA LATERAL from 09/01/2019 FINDINGS: MEDIASTINUM: Normal. HEART: Normal. PULMONARY VASCULATURE: Normal. LUNGS: Clear. The lungs are hyperexpanded consistent with underlying COPD. PLEURAL SPACE: No pleural effusion or pneumothorax. BONE:Within normal limits for the patient's age. OTHER FINDINGS:Normal. IMPRESSION: No acute pulmonary findings. DATA REPOSITORY: RADIATION DOSE DELIVERED:
[2020-08-12 11:39] LABS: Lipase 202 U/L (73-393)
[2020-08-12 12:05] LABS: COVID-19 PCR Negative (Negative)
--- NOTE | 2020-08-12 12:35 | W.PM.HP.N ---
Date of service: 08/12/20 Time of Service: 12:35 Assessment and Plan Assessment and plan (1) Hypomagnesemia: Status: Acute Assessment and plan: most likely d/t alcoholism but was reporting diarrhea, no stooling since admission will replete and follow no tetany, seizures arrhythmias. likely chronically low. (2) Hypocalcemia: Status: Acute Assessment and plan: received calcium chloride in the ED (3) Alcoholism: Status: Acute Assessment and plan: ciwa protocol. denies issues with withdrawal. plans for discharge tomorrow morning. discussed with DR Squires History of Present Illness History of Present Illness Chief Complaint: generalized weakness Narrative: patient presents to ED with generalized weakness. work up show hypomagnesemia with mag level 0.2. she is a chronic drinker, denies withdrawal issues. Review of Systems All systems reviewed & are unremarkable except as noted in HPI and below Constitutional Constitutional: Denies fever(s) and Reports weakness Cardiovascular Cardiovascular: Denies chest pain and Denies dyspnea Respiratory Respiratory: Denies cough and Denies dyspnea Musculoskeletal Musculoskeletal: Reports muscle weakness Neurologic Neurologic: Denies seizure-like activity and Reports weakness PFSH Medical History Alcohol abuse Ascites Bilateral leg pain Bilateral lower extremity edema Cachexia Chest pain Chronic vomiting COPD (chronic obstructive pulmonary disease) Diastolic dysfunction Folate deficiency anemia Frequent falls Gastroesophageal reflux disease Hair loss Hepatic fibrosis Hx pulmonary embolism Hypomagnesemia Malnutrition Pancreatitis Tobacco dependence syndrome Ulcer of lower extremity Unintentional weight loss Vitamin D deficiency Surgical History ENT/Nasal surgery (~2007) foot surgery (~2000) Ligation of fallopian tube (~1999) punch biopsy, skin of ankle, right lateral (11/24/16) negative for malignancy, sparse inflammation and reactive blood vessels Social History Smoking/Tobacco Use Status: Current every day Tobacco Type: cigarettes Smoking risk assessment performed?: Yes Alcohol Intake: current Alcohol Intake frequency: a few times a week Alcohol type: wine Drug use: Occasionally Substance use type: marijuana Do you feel safe at home: Yes Do you feel safe in your relationship?: Yes History History Para 0 Hx # Term Pregnancies Multiple births Hx # Pregnancies Ectopic pregnancies AB induced Hx Number of Living Children AB spontaneous Meds Allergies and Home Medications Allergies Allergy/AdvReac Type Severity Reaction Status Date / Time bacitracin Allergy Mild localized Verified 05/05/20 10:50 [From Neosporin redness ([id number])] neomycin Allergy Mild localized Verified 05/05/20 10:50 [From Neosporin redness ([id number])] polymyxin B Allergy Mild localized Verified 05/05/20 10:50 [From Neosporin redness ([id number])] Home Medications Medication Instructions Recorded Confirmed Type gabapentin 300 mg PO TID 12/21/16 08/12/20 History omeprazole 20 mg PO DAILY #30 capsule. 08/31/17 08/12/20 Rx atorvastatin 10 mg PO DAILY 09/01/19 08/12/20 History lisinopril 20 mg PO DAILY 09/01/19 08/12/20 History Exam Const General: cooperative, healthy appearing, comfortable and no acute distress Orientation: alert, awake and oriented x3 HENMT Head: normal to inspection, normocephalic and atraumatic Mouth: moist mucous membranes abnormal (Slightly dry) Throat: posterior oropharynx normal Eyes General: appearance normal, both eyes and all related structures Alignment and Position: alignment normal Periorbital: periorbital findings normal Eyelids: eyelids normal Conjunctivae: conjunctivae normal Sclera: sclerae normal Cornea: corneas normal Pupils: PERRL EOM: EOM intact bilaterally Direct ophthalmoscopy: normal light reflex Neck Neck: normal visual inspection, full ROM, trachea midline, supple and nontender Resp Effort & Inspection: normal respiratory effort and able to speak in complete sentences Auscultation: clear to auscultation bilaterally Cardio Rate: regular rate Rhythm: regular rhythm GI Palpation: soft, not firm, no guarding and nontender Auscultation: normal bowel sounds Back/Spine/Pelvis Back: No back tenderness Skin General skin exam: no rashes or lesions noted Neuro General: patient alert, patient awake, patient oriented x3, moves all extremities and no focal motor deficits Cranial Nerves: CN's II-XI intact bilaterally Cognition: normal cognition Speech: speech normal Gait: normal gait Motor: muscle tone normal throughout and strength 5/5 throughout Sensory Exam: no sensory deficits noted Extrem General: normal to inspection, full ROM, capillary refill normal, no pedal edema and no calf tenderness Psych Appearance: grossly normal Mental Status: mental status grossly normal Results Labs Result diagrams: 08/12/20 09:02 08/12/20 09:02 Labs: Laboratory Results - last 24 hr 08/12/20 08/12/20 08/12/20 09:02 09:02 09:02 WBC 8.32 RBC 4.30 Hgb 14.0 Hct 40.2 MCV 93.5 MCH 32.6 MCHC 34.8 RDW 13.1 Plt Count 220 MPV 10.9 Immature Gran % 0.5 Neutrophils % 69.9 Lymphocytes % 19.2 Monocytes % 9.6 Eosinophils % 0.2 Basophils % 0.6 Nucleated RBC % 0 Absolute Neutrophils 5.81 Absolute Lymphocytes 1.60 Absolute Monocytes 0.80 Absolute Eosinophils 0.02 Absolute Basophils 0.05 Sodium 131 L Potassium 3.5 Chloride 94 L Carbon Dioxide 23.4 Anion Gap 13.6 H BUN 10 Creatinine 0.8 Estimated GFR/1.73 m2 >= 60.00 Glucose 110 H Calcium 7.0 L Magnesium 0.2 L* Total Bilirubin 0.6 AST 51 H ALT 39 Alkaline Phosphatase 71 Troponin I < 0.05 Total Protein 7.5 Albumin 3.5 Lipase Ethyl Alcohol < 3.0 COVID-19 Source SARS-CoV-2 (PCR) 08/12/20 08/12/20 09:02 10:15 WBC RBC Hgb Hct MCV MCH MCHC RDW Plt Count MPV Immature Gran % Neutrophils % Lymphocytes % Monocytes % Eosinophils % Basophils % Nucleated RBC % Absolute Neutrophils Absolute Lymphocytes Absolute Monocytes Absolute Eosinophils Absolute Basophils Sodium Potassium Chloride Carbon Dioxide Anion Gap BUN Creatinine Estimated GFR/1.73 m2 Glucose Calcium Magnesium Total Bilirubin AST ALT Alkaline Phosphatase Troponin I Total Protein Albumin Lipase 202 Ethyl Alcohol COVID-19 Source Nasal/nares SARS-CoV-2 (PCR) Negative Last Vital Signs Temp 36.4 C L 08/12/20 11:02 Pulse 79 08/12/20 12:11 Resp 22 08/12/20 12:11 BP 139/81 08/12/20 12:11 Pulse Ox 94 08/12/20 12:11 COVID-19 Screening Have you, or household traveled for leisure in last 14 days?: No Had IN PERSON contact w/suspected or confirmed C-19 person: No
[2020-08-12 12:45] LABS: PTT Activated 23.6 sec (21.0-27.5); Prothrombin Time 10.4 sec (9.3-11.0)
[2020-08-12] MEDS: MAGNESIUM SULFATE 4 GM/100 ML BAG IVPB (12:54)
[2020-08-12] MEDS: Magnesium Chloride 64 MG TABCR 128 MG PO ×2 (12:54→20:07)
[2020-08-12] MEDS: THIAMINE 100 MG in Normal Saline 100 ML 200 MG IVPB (13:15)
[2020-08-12 13:17] LABS: Bilirubin Negative (Negative); Blood Negative (Negative); Clarity Clear (Clear); Glucose Negative (Negative); Ketones Negative (Negative); Leukocyte Esterase Negative (Negative); Nitrite Negative (Negative); Urobilinogen 0.2 EU/dL (Up TO 0.2)
[2020-08-12 15:14] LABS: Magnesium 0.2 mg/dL (1.8-2.4)
[2020-08-12] MEDS: Heparin 5,000 UNITS/ML VIAL 5000 UNITS SC (20:07)
[2020-08-13] VITALS (13 sets, daily range): BP systolic 127–212; BP diastolic 70–104; PULSE 71–88; RESP 16–18; TEMP 36.6–37.7; O2SAT 96–99
[2020-08-13] MEDS: Heparin 5,000 UNITS/ML VIAL 5000 UNITS SC ×3 (04:07→19:42)
[2020-08-13] MEDS: Magnesium Chloride 64 MG TABCR 128 MG PO ×2 (07:44→19:42)
[2020-08-13] MEDS: Multivitamin TAB 1 TAB PO (07:44)
[2020-08-13] MEDS: Thiamine 100 MG TAB PO (07:44)
[2020-08-13] MEDS: Folic Acid 1 MG TAB PO (07:45)
[2020-08-13 08:02] LABS: ALT 32 U/L (14-59); AST 37 U/L (15-37); Albumin 3.1 g/dL (3.4-5.0); Alkaline Phosphatase 61 U/L (46-116); Anion Gap 8.8 mmol/L (3-11); BUN 6 mg/dL (7-18); Bilirubin, Direct 0.1 mg/dL (0.0-0.2); Bilirubin, Total 0.4 mg/dL (0.2-1.0); CO2 27.2 mmol/L (21.0-32.0); CREATININE 0.7 mg/dL (0.55-1.02); Calcium 8.3 mg/dL (8.5-10.1); Chloride 102 mmol/L (98-107); Glucose 87 mg/dL (74-106); Magnesium 1.6 mg/dL (1.8-2.4); Potassium 3.8 mmol/L (3.5-5.1); Sodium 138 mmol/L (136-145); Total Protein 6.8 g/dL (6.4-8.2)
[2020-08-13] MEDS: MAGNESIUM SULFATE 4 GM/100 ML BAG IVPB (08:46)
[2020-08-13 08:48] LABS: Folate 2.9 ng/mL (8.6-20.0); Vitamin B12 428 pg/mL (193-986)
[2020-08-13 09:08] LABS: Parathyroid Hormone,Intact 32 pg/mL (19-88)
[2020-08-13] MEDS: Cyanocobalamin 1000 MCG/ML VIAL IM/SC (11:39)
--- NOTE | 2020-08-13 12:10 | NS.NUTBLAN_ITS ---
Date of service: 08/13/20 Time of Service: 11:45 Nutritional Consult ASSESSMENT: 60 y/o F w/ hx ETOH, malnutrition, Hypo K+ and Mg. Macrocytic anemia. She requested dietitian for concerns r/t vitamin deficiencies, early satiety and spells where I eat too much She reports no chewing/swallowing issues, NKFA. She is currently 92% IBW w/ BMI 19.4 indicating underweight status. CDM reports Fannie is eating ~25% at most meals on her low Na diet. She has been asking for saltier foods. Patient stated that she enjoys cooking, likes most vegetables, slads, home cooked meals like Mac and cheese. She stated that she no longer has s/s NVD. Noted: On B1, B12, Mg, folic acid to cover micro- nutrient needs. NUTRITIONAL DIAGNOSIS: Underweight and at risk for nutritional decline r/t Hx ETOH, AEB: poor PO intake, ABN labs, BMI 19.4. INTERVENTION: Discussed outpatient nutrient appointment with Love David RD post discharge for full assessment, meal planning and to rule out potential eating disorder. Patient may benefit from remeron to help stimulate appetite. Spoke with exhibitions and collections manager regarding aforementioned. MONITORING AND EVALUATION: Patient will get referral for nutritional counseling with RDN from PCP upon discharge with assistance from complex case manager if necessary. Time Spent in Nutritional Counseling and Treatment: 10 Minutes face to face
[2020-08-13] MEDS: Normal Saline Flush 10 ML SYR (14:24)
--- NOTE | 2020-08-13 14:28 | W.PM.PROGNOT ---
Date of Service Date of service: 08/13/20 Time of Service: 14:28 Assessment and Plan Assessment and plan (1) Hypomagnesemia: Status: Acute Assessment and plan: Profound on admission. In addition to EtOH/diarrhea, PPI is a possible culprit. Patient agreed to stay another night. Monitor on tele. Replete PO +IV and recheck in am. (2) Hypocalcemia: Status: Resolved Assessment and plan: Corrected calcium normal. (3) Alcoholism: Status: Acute Assessment and plan: Monitor for EtOH w/d on CIWA. (4) Folate deficiency: Status: Acute Assessment and plan: replete (5) B12 deficiency: Status: Acute Assessment and plan: replete (6) Chronic liver disease: Status: Chronic Assessment and plan: Low sodium diet (7) DVT prophylaxis: Status: Acute Assessment and plan: SC heparin BID (8) Discharge planning issues: Status: Acute Assessment and plan: Full code Likely discharge tomorrow. Advised not to leave AMA for the risk of cardiac arrhythmia, falls, . Subjective Subjective Interval history since last seen: Ms Gallego states she is feeling better today. She wanted to go home. We discussed that her magnesium level is not demonstrating fully redistributed magnesium yet and that she should truly stay until tomorrow. She agrees. Denies dizziness, chest pain, shortness of breath, nausea. Feels stronger. Has her chronic cough. Exam Narrative Exam Narrative: General: Pleasant anxious Cacuasian female who is wearing a very dramatic eyeliner, A&Ox3, does not appear to be withdrawing from alcohol HEENT: EOMI, MMM Heart: RRR, no m/r/g Lungs: CTAB Abdomen: soft, nontender, nondistended Extremities: no edema BLE's Tele: QTc 470 msec Objective Last Vital Signs Temp 37.1 C 08/13/20 12:04 Pulse 71 08/13/20 12:04 Resp 18 08/13/20 12:04 BP 160/100 H 08/13/20 12:32 Pulse Ox 98 08/13/20 12:04 Laboratory Results - last 24 hr 08/12/20 08/12/20 08/13/20 09:02 09:02 06:45 Sodium 138 Potassium 3.8 Chloride 102 Carbon Dioxide 27.2 Anion Gap 8.8 BUN 6 L Creatinine 0.7 Estimated GFR/1.73 m2 >= 60.00 Glucose 87 Calcium 8.3 L Magnesium 0.2 L* 1.6 L Total Bilirubin 0.4 Conjugated Bilirubin 0.1 AST 37 ALT 32 Alkaline Phosphatase 61 Total Protein 6.8 Albumin 3.1 L Vitamin B12 428 Folate 2.9 L PTH Intact 32
--- NOTE | 2020-08-13 15:04 | NUR.NOTE ---
Pt has home meds in purse. Educated pt not to take own home meds and that we will give medications per doctor orders. Pt agrees and states she will leave home meds in purse and not take them. Patient does want to hold onto home meds instead of having them held in pharmacy. Nursing Note:
--- NOTE | 2020-08-13 16:19 | CHAPLAIN ---
Fannie was sitting up in bed when I visited. I introduced myself and explained my role. Fannie was pleasant. She has been in touch with supports by phone. I will visit again if she is here tomorrow.
--- NOTE | 2020-08-13 16:20 | PDOC.CMIN ---
- If Service Date Differs Date of service: 08/13/20 Time of Service: 16:20 Care Management Initial Assess REASON FOR HOSPITALIZATION:: Symptomatic Hypomagnesia, hypocalcemia PAST MEDICAL HISTORY/PAST SURGICAL HISTORY:: Medical History. Alcohol abuse. Ascites. Bilateral leg pain. Bilateral lower extremity edema. Cachexia. Chest pain. Chronic vomiting. COPD (chronic obstructive pulmonary disease). Diastolic dysfunction. Folate deficiency anemia. Frequent falls. Gastroesophageal reflux disease. Hair loss. Hepatic fibrosis. Hx pulmonary embolism. Hypomagnesemia. Malnutrition. Pancreatitis. Tobacco dependence syndrome. Ulcer of lower extremity. Unintentional weight loss. Vitamin D deficiency. Surgical History. ENT/Nasal surgery (~2007). foot surgery (~2000). Ligation of fallopian tube (~1999). punch biopsy, skin of ankle, right lateral (11/24/16). negative for malignancy, sparse inflammation and reactive blood vessels PREVIOUS FUNCTIONAL STATUS/SOCIAL/FAMILY SUPPORTS:: Fannie lives in an apartment in [facility]. Her sister, Elzbieta, lives in [place], [place], and is a source of support for Fannie. She states that she has several friends and family in the area. 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 She is independent at baseline. CURRENT FUNCTIONAL STATUS:: Fannie was sitting up on the side of her bed when CM met with her. She reported that she is feeling much better today, and is hoping to return home. Per provider, she will need a new prescription, which CM verified the cost through [employer] is $16. Per MD, she should be observed again overnight, which Fannie agreed to. CM will continue to follow. ADVANCE DIRECTIVES:: None on file. CM will offer forms. Has patient been provided with info about the portal/API?: Yes Did the patient sign up for the portal?: No CODE STATUS:: Full Code INSURANCE COVERAGE / FINANCIAL ISSUES:: [employer]BS CURRENT HOME/COMMUNITY SERVICES/EQUIPMENT:: No current services or equipment. PRIMARY CARE PHYSICIAN:: Sara Patterson POTENTIAL DISCHARGE NEEDS:: Nutrition follow up, follow up appointments. PATIENT/FAMILY EDUCATION NEEDS:: Review discharge instructions, discussion of self care needs. ANTICIPATED BARRIERS TO DISCHARGE:: None identified. TRANSPORTATION:: Via private vehicle by family/friends. PLAN:: Anticipate Fannie will return home when medically cleared. She will be driven home via private vehicle by family. She will follow up with her PCP and discharge plan of care. CM will continue to follow.
--- NOTE | 2020-08-13 21:25 | NUR.NOTE ---
Nursing Note: Patient requests that she takes her own medications tonight (Gabapentin and Atorvastatin) and will start taking hospital provided medications tomorrow morning
[2020-08-14 03:51] VITALS: BP 160/80; PULSE 74; RESP 18; TEMP 36.6; O2SAT 97
[2020-08-14 07:14] VITALS: BP 196/85; PULSE 70; RESP 18; TEMP 37.1; O2SAT 98
[2020-08-14 07:18] VITALS: BP 196/94
[2020-08-14 07:37] LABS: Anion Gap 7.2 mmol/L (3-11); BUN 8 mg/dL (7-18); CO2 28.8 mmol/L (21.0-32.0); CREATININE 0.7 mg/dL (0.55-1.02); Calcium 8.4 mg/dL (8.5-10.1); Chloride 100 mmol/L (98-107); Glucose 87 mg/dL (74-106); Magnesium 1.8 mg/dL (1.8-2.4); Potassium 4.8 mmol/L (3.5-5.1); Sodium 136 mmol/L (136-145)
[2020-08-14] MEDS: Gabapentin 300 MG CAP PO (08:34)
[2020-08-14] MEDS: Multivitamin TAB 1 TAB PO (08:35)
[2020-08-14] MEDS: Magnesium Chloride 64 MG TABCR 128 MG PO (08:35)
[2020-08-14] MEDS: Cyanocobalamin 500 MCG TAB 1000 MCG PO (08:35)
[2020-08-14] MEDS: Folic Acid 1 MG TAB PO (08:35)
[2020-08-14] MEDS: Lisinopril 20 MG TAB PO (08:35)
[2020-08-14] MEDS: Thiamine 100 MG TAB PO (08:35)
[2020-08-14] MEDS: Heparin 5,000 UNITS/ML VIAL 5000 UNITS SC (08:36)
[2020-08-14] MEDS: Normal Saline Flush 10 ML SYR IVP (08:36)
[2020-08-14] MEDS: MAGNESIUM SULFATE 2 GM/50 ML BAG IVPB (08:36)
[2020-08-14 10:05] VITALS: PULSE 82
--- NOTE | 2020-08-14 10:32 | DSE_ITS ---
Date of service: 08/14/20 Time of Service: 10:32 DS: Diagnosis Discharge Diagnosis (1) Hypomagnesemia: Status: Acute (2) Hypocalcemia: Status: Resolved (3) Alcoholism: Status: Acute (4) Folate deficiency: Status: Acute (5) B12 deficiency: Status: Acute (6) Chronic liver disease: Status: Chronic Discharge Plan Disposition Patient Disposition: HOME Condition: Stable Discharge Details Reason For Visit: SYMPTOMATIC HYOMAGNESMIA, HYPOCALCEMIA Admit Date/Time: 08/12/20 11:07 Admit Provider: Yasmeen Squires Attending Provider: Yasmeen Squires Primary Care Provider: Sara Patterson [facility] Hospital Course: This is a 60 year old female who presents to the ED with a several day history of nausea, vomiting and generalized weakness. She has not had fever, shortness of breath or chest or abdominal pain. she reports she has had diarrhea but that has resolved. no bloody stooling. Work up in the emergency department shows severe hypomagnesemia and hypocalcemia. She received replacement in the ED with IV magnesium and IV calcium chloride. She reportedly drinks alcohol daily and denies any history of withdrawal. She also takes omeprazole daily. Her symptoms have improved and she is stable for discharge to home. Her omeprazole was changed to famotidine and she will be placed on magnesium, folic acid, vit b12, thiamine and multivitamin at discharge. she will have follow up lab outpatient. She was advised to stop smoking and drinking alcohol. Nicotrol inhaler called to pharmacy. discharge discussed with Dr Squires Home Meds and New Rx's Prescriptions: New folic acid 1 mg Tablet 1 mg PO DAILY Qty: 30 RF: 0 magnesium chloride [Mag 64] 64 mg Tablet,Delayed Release (Dr/Ec) 128 mg PO BID Qty: 120 RF: 0 multivitamin [Multiple Vitamins] Tablet 1 tab PO DAILY Qty: 30 RF: 0 Nicotrol 10 mg Cartridge 1 inh inhalation Q4H PRN PRN (Reason: nicotine cravings) Qty: 168 RF: 0 thiamine mononitrate (vit B1) [Vitamin B-1 (mononitrate)] 100 mg Tablet 100 mg PO DAILY Qty: 30 RF: 0 famotidine [Pepcid] 20 mg tablet 20 mg PO BID Qty: 60 RF: 0 cyanocobalamin (vitamin B-12) 1,000 mcg capsule 1,000 mcg PO DAILY Qty: 30 RF: 0 Continued atorvastatin 10 mg tablet 10 mg PO HS RF: 0 lisinopril 20 mg tablet 20 mg PO DAILY RF: 0 gabapentin 300 mg Capsule 300 mg PO TID RF: 0 Discontinued omeprazole 20 MG capsule,delayed release(DR/EC) 20 mg PO DAILY Qty: 30 RF: 0 Discharge Instructions Instructions: Hypomagnesemia (DC) Additional Instructions: take all your medication as prescribed. Stand Alone Forms: Nursing Discharge Form Referrals: Sara Patterson [Primary Care Provider] - 08/27/20 2:15 pm Activity:: Activity as Tolerated Equipment/Supplies:: No Equipment Needed Diet:: As Tolerated Discharge Orders Other Ambulatory Orders: Comprehensive Metabolic Panel (Routine) Timeframe: 1 Week Facility: [facility] - Location: Laboratory Outpatient Ordered By: Yasmeen Squires Magnesium (Routine) Timeframe: 1 Week Facility: [facility] - Location: Laboratory Ordered By: Yasmeen Squires DS: Summary Time Spent with Patient providing and/or coordinating discharge services: Less than 30 minutes Status at Discharge Functional status at discharge: independent ambulation Overall status at discharge: patient is back to baseline Mental Status: mental status grossly normal Speech and Movement: speech and movement normal Mood: congruent mood Affect: normal affect Exam Const General: cooperative, healthy appearing, comfortable and no acute distress Orientation: alert, awake and oriented x3 HENMT Head: normal to inspection, normocephalic and atraumatic Mouth: moist mucous membranes abnormal (Slightly dry) Throat: posterior oropharynx normal Eyes General: appearance normal, both eyes and all related structures Alignment and Position: alignment normal Periorbital: periorbital findings normal Eyelids: eyelids normal Conjunctivae: conjunctivae normal Sclera: sclerae normal Cornea: corneas normal Pupils: PERRL EOM: EOM intact bilaterally Direct ophthalmoscopy: normal light reflex Neck Neck: normal visual inspection, full ROM, trachea midline, supple and nontender Resp Effort & Inspection: normal respiratory effort and able to speak in complete sentences Auscultation: clear to auscultation bilaterally Cardio Rate: regular rate Rhythm: regular rhythm GI Palpation: soft, not firm, no guarding and nontender Auscultation: normal bowel sounds Back/Spine/Pelvis Back: No back tenderness Skin General skin exam: no rashes or lesions noted Neuro General: patient alert, patient awake, patient oriented x3, moves all extremities and no focal motor deficits Cranial Nerves: CN's II-XI intact bilaterally Cognition: normal cognition Speech: speech normal Gait: normal gait Motor: muscle tone normal throughout and strength 5/5 throughout Sensory Exam: no sensory deficits noted Extrem General: normal to inspection, full ROM, capillary refill normal, no pedal edema and no calf tenderness Psych Appearance: grossly normal Mental Status: mental status grossly normal Speech and Movement: speech and movement normal Mood: congruent mood Affect: normal affect DS: Data Vitals/I&O Vitals and I&O: Vital Signs Temperature 37.1 C 08/14/20 07:14 Temperature Source Temporal Artery Scan 08/14/20 07:14 Pulse 70 08/14/20 07:14 Pulse Rhythm Regular 08/14/20 03:19 Respiratory Rate 18 08/14/20 07:14 Respiratory Effort Non-Labored 08/14/20 03:19 Respiratory Depth Normal 08/14/20 03:19 Respiratory Pattern Normal 08/14/20 03:19 Blood Pressure 196/94 H 08/14/20 07:18 Blood Pressure Mean 99 08/12/20 10:07 Blood Pressure Position Sitting 08/12/20 08:44 Pulse Oximetry 98 08/14/20 07:14 Oxygen Delivery Method Room Air 08/14/20 07:14 Oxygen Flow Rate 0 08/14/20 07:14 Pain Level 0 08/14/20 07:14 Comment 08/13/20 12:07 Intake & Output 08/13/20 08/13/20 08/14/20 11:59 23:59 11:59 Intake Total 1240 / 1730 490 / 1730 Output Total 1999 825 / 2825 Balance -760 / -1095 -335 / -1095 Intake: IV 1000 / 1000 Oral 240 / 730 490 / 730 Output: Urine 1999 825 / 2825 Other: Urine Color Yellow Yellow Urine Appearance Clear Clear Clear Urine Odor None None Comment independent voids independantly in toilet or commode. Voiding Methods Toilet Toilet Data Completed and Pending Labs on day of discharge: Labs from last 24 hours 08/14/20 06:48 Sodium 136 Potassium 4.8 D Chloride 100 Carbon Dioxide 28.8 Anion Gap 7.2 BUN 8 Creatinine 0.7 Estimated GFR/1.73 m2 >= 60.00 Glucose 87 Calcium 8.4 L Magnesium 1.8 PFSH Medical History Alcohol abuse Ascites Bilateral leg pain Bilateral lower extremity edema Cachexia Chest pain Chronic vomiting COPD (chronic obstructive pulmonary disease) Diastolic dysfunction Folate deficiency anemia Frequent falls Gastroesophageal reflux disease Hair loss Hepatic fibrosis Hx pulmonary embolism Hypomagnesemia Malnutrition Pancreatitis Tobacco dependence syndrome Ulcer of lower extremity Unintentional weight loss Vitamin D deficiency Surgical History ENT/Nasal surgery (~2007) foot surgery (~2000) Ligation of fallopian tube (~1999) punch biopsy, skin of ankle, right lateral (11/24/16) negative for malignancy, sparse inflammation and reactive blood vessels Social History Smoking/Tobacco Use Status: Current every day Tobacco Type: cigarettes Smoking risk assessment performed?: Yes Alcohol Intake: current Alcohol Intake frequency: a few times a week Alcohol type: wine Drug use: Occasionally Substance use type: marijuana Do you feel safe at home: Yes Do you feel safe in your relationship?: Yes History History 2 Para 0 Hx # Term Pregnancies Multiple births Hx # Pregnancies Ectopic pregnancies AB induced Hx Number of Living Children AB spontaneous
--- NOTE | 2020-08-14 10:56 | RESPIRATORY ---
Spoke with patient concerning medical history listing of COPD and if on any meds for it. Patient stated she's never been told she has COPD and doesn't use any medications for it.
[2020-08-14 11:38] VITALS: BP 186/84; PULSE 73; RESP 18; TEMP 37.1; O2SAT 99
[2020-08-14 13:07] VITALS: PULSE 84
--- NOTE | 2020-08-14 18:27 | PDOC.CMDIS ---
- If Service Date Differs Date of service: 08/14/20 Time of Service: 18:27 LACE Index Scoring Tool - Questions: Length of Stay (in days): 2 Acuity (Admit via E.D.?): Yes Comorbidities: Liver or Renal Disease E.D. Visits: 3 - Answers: Total Score: 13 Risk of Readmission: High Risk Care Management Discharge Reason for Hospitalization: Symptomatic Hypomagnesia, hypocalcemia Discharge Plan: Fannie returned home today with no new services. She was driven home via private vehicle by a friend. She will follow up with her PCP and discharge plan of care. She is happy to be going home. Patient/Family Education Needs: Review discharge instructions regarding activity levels and medications, discussion of self care needs and goals of care.
== END 2020-08-14 13:28 | disposition home or self-care (01) | DRG 640 ==
LOC: ER 11:16 → MS 12:29
PROVIDERS: Admitting Provider Internal Medicine; Emergency Provider Physician Assistant; PCP Nurse Practitioner Family; Visit Provider Internal Medicine
DX: E83.42 Hypomagnesemia (principal); K85.90 Acute pancreatitis without necrosis or infection, unspecified; Z68.1 Body mass index [BMI] 19.9 or less, adult; R18.8 Other ascites; E46 Unspecified protein-calorie malnutrition; E83.51 Hypocalcemia; F10.20 Alcohol dependence, uncomplicated; Z20.822 Contact with and (suspected) exposure to COVID-19; J44.9 Chronic obstructive pulmonary disease, unspecified; E53.8 Deficiency of other specified B group vitamins; R11.11 Vomiting without nausea; R29.6 Repeated falls; K21.9 Gastro-esophageal reflux disease without esophagitis; K74.00 Hepatic fibrosis, unspecified; Z86.711 Personal history of pulmonary embolism; F17.210 Nicotine dependence, cigarettes, uncomplicated; E55.9 Vitamin D deficiency, unspecified
CPT/HCPCS: 36415; 80048; 80053; 80076; 83690; 87635; 93005; 96361; 96365; 96366; 96375; 99222; 99232; 99238; 99285; 71046; 80320; 81003; 82607; 82746; 83735; 83970; 84484; 85025; 85610; 85730; 93010; J1644; J2405; J3420; J3475

== ENCOUNTER 2020-08-20 03:07 | Outpatient (CLI) | payer BC, SELFPAY ==
[2020-08-20 10:32] LABS: ALT 36 U/L (14-59); AST 33 U/L (15-37); Albumin 4.1 g/dL (3.4-5.0); Alkaline Phosphatase 76 U/L (46-116); Anion Gap 9.5 mmol/L (3-11); BUN 8 mg/dL (7-18); Bilirubin, Total 0.4 mg/dL (0.2-1.0); CO2 25.5 mmol/L (21.0-32.0); CREATININE 0.7 mg/dL (0.55-1.02); Chloride 96 mmol/L (98-107); Glucose 95 mg/dL (74-106); Magnesium 1.7 mg/dL (1.8-2.4); Potassium 5.2 mmol/L (3.5-5.1); Sodium 131 mmol/L (136-145); Total Protein 8.2 g/dL (6.4-8.2)
== END 2020-08-20 03:08 | disposition home or self-care (01) ==
LOC: LBO 03:07
PROVIDERS: PCP Nurse Practitioner Family; Visit Provider Internal Medicine
DX: E83.42 Hypomagnesemia (principal); E83.51 Hypocalcemia; E87.6 Hypokalemia
CPT/HCPCS: 36415; 80053; 83735

== ENCOUNTER 2020-09-10 11:20 | Outpatient (REF) | payer BC, SELFPAY ==
[2020-09-10 16:03] LABS: HCT 37.8 % (36.0-46.0); HGB 12.9 g/dL (11.2-15.7); MCH 32.6 pg (27.0-33.0); MCHC 34.1 % (32.0-36.0); MCV 95.5 fL (80-95); MPV 10.2 fL (8.0-11.0); Platelet Count 392 10^3/uL (130-400); RBC 3.96 10^6/uL (3.93-5.22); RDW 13.6 % (11.7-14.6); WBC 10.11 10^3/uL (4.4-10.8)
[2020-09-10 16:55] LABS: Magnesium 1.9 mg/dL (1.8-2.4); Vitamin B12 650 pg/mL (193-986)
[2020-09-10 17:07] LABS: Folate > 20.0 ng/mL (8.6-20.0)
[2020-09-16 07:36] LABS: Thiamine (Vitamin B1), WB 173 nmol/L (70-180)
== END 2020-09-10 11:21 | disposition home or self-care (01) ==
LOC: LBN 11:20
PROVIDERS: PCP Nurse Practitioner Family; Visit Provider Nurse Practitioner Family
DX: D53.1 Other megaloblastic anemias, not elsewhere classified (principal); E83.42 Hypomagnesemia
CPT/HCPCS: 85027; 82607; 82746; 83735; 84425

== ENCOUNTER 2020-12-26 13:14 | Observation (INO) | payer BC, SELFPAY ==
[2020-12-26] VITALS (24 sets, daily range): BP systolic 75–135; BP diastolic 47–97; PULSE 87–109; RESP 12–27; TEMP 36.1–36.5; O2SAT 92–99
--- NOTE | 2020-12-26 13:15 | RT.EKG_ITS ---
APPROVED REPORT Exam: Resting ECG Reason for Exam: weakness Patient Location: E HR:97 bpm ECG Measurements Heart Rate 97 AXIS NJ 149 P 76 QRSd 86 QRS 41 QT 394 T 46 QTc 500 Conclusion Sinus rhythm...normal P axis, V-rate 60- 99 Probable left atrial enlargement...P >50mS, <-0.10mV V1
--- NOTE | 2020-12-26 13:21 | ED.GENADUL_ITS ---
Discharge Plan Disposition Patient Disposition: [facility] INPATIENT Condition: Stable Discharge Details Clinical Impression: Hypotension, Dehydration, Diarrhea, Acute kidney injury, Hypomagnesemia Admit Date/Time: 12/26/20 15:09 Admit Provider: Sesar Pruitt Attending Provider: Sesar Pruitt Primary Care Provider: Sara Patterson ED Provider: Nishi Barber Discharge Data Discharge Date/Time-TO BE ENTERED AT DEPARTURE: 12/26/20 16:10 Medical Decision Making 1330 -- 60-year-old female with a history of chronic alcohol abuse, chronic liver disease, ascites, COPD, chronic folate deficiency, GERD, hypomagnesemia, pancreatitis, current smoker presents with dizziness and neck pain that started prior to arrival with diarrhea over the past few days. EKG notes a rate of 97, sinus with peaked T waves in anterior leads but no WILLIAM DC. Patient appears quite frail and cachectic. Her blood pressure on arrival as low as 75/48. She is afebrile. She has no focal deficits. Differential diagnosis includes acute dehydration, electrolyte abnormality, CVA, carotid dissection, arrhythmia, pneumonia, UTI. Will place an IV, bolus IV fluids, screening labs, urinalysis, CTA head and neck, CTA thorax, abdomen and pelvis. 1430 -- Labs and imaging reviewed. White blood cell count 11. Lactate 2.6. Anion gap 15. Creatinine 1.5. GFR 35. AST 65. ALT 60. Alk phos 137. Lipase within normal limits. Magnesium low at 1.2, will replete. Troponin negative. CTA head and neck notes 50 to 70% stenosis in the right ICA. CTA thorax/abd/pelvis notes severe multifocal atheromatous disease, new RUL lung mass with recommendation for PET scan or tissue sampling, and wall thickening of stomach, gastritis or neoplastic process not excluded, and correlation with endoscopy is suggested when clinically appropriate. 1500 -- Patient's blood pressure fluid responsive. Now 119/67. Patient states she feels much better. Presentation appears likely consistent with acute kidney injury and dehydration which may be in the setting of diarrhea. Attempted to obtain a urine cath specimen but patient is refusing. Discussed that she may have a UTI and cath specimen will be more accurate but she states she would rather give a sample when she can. We will continue IV fluid hydration. Patient was informed of her CT chest and abdomen results. This may require further work-up with [facility] pulmonology outpatient for her right upper lobe lung mass and surgery outpatient for endoscopy for stomach wall thickening if indicated. Case discussed with hospitalist who accepts patient for admission. Informed that patient has not yet given a urine sample but she may have a UTI once we are able to obtain the sample. Medical Records Medical records reviewed: Yes I reviewed the patient's medical records. Imaging Data Radiologic Study: Radiologist's impression: CT BRAIN NECK CTA CLINICAL HISTORY: dizziness, neck pain. TECHNIQUE: Imaging Protocol: Axial CT angiography was performed with multi- slice acquisition and multi-planar and/or 3D reconstructions. CONTRAST MATERIAL: Intravenous: Omnipaque 350 Contrast volume:structured data in ml COMPARISON: CT ABD PELVIS WO CONTRAST from 01/14/2017 FINDINGS: CT angiography of the cervical cranial region was performed according to the usual protocol with intravenous infusion of 85 cc of Omnipaque 350.. Initial noncontrast scanning of the head is unremarkable. Visualized lung apices show marked emphysematous changes. Visualized portions of thoracic aorta and pulmonary arterial circulation are unremarkable except for significant calcific atheromatous plaque in the aortic arch.. There is no evidence of a cervical mass or adenopathy. The tracheal laryngeal structures appear intact. There is calcified plaque of the common carotid arteries without evidence of significant stenosis. Mild calcified plaque also noted in the proximal internal carotid arteries with no significant stenosis. There is a diminutive right vertebral artery. Left vertebral artery is small. No evidence focal dissection or occlusion of the vertebrals in the cervical region. Intracranial portions of the internal carotid arteries show calcified plaque bilaterally, particularly in the cavernous portions period there is stenosis of the cavernous portion of the right internal carotid artery estimated at 50-70 percent luminal diameter period there is stenosis of the left cavernous internal carotid artery estimated at less than 50 percent luminal diameter. The intracranial vertebral arteries are diminutive as is the basilar artery. No focal evidence of occlusion. The posterior circulation within the brain is supplied mainly across the posterior communicating arteries bilaterally. No aneurysm identified in the region of the [id number]. The anterior, middle, and posterior cerebral arteries and major branches appear intact with no evidence of aneurysm, stenosis, or dissection. No enhancing brain lesion identified on 5 minutes delayed images.. IMPRESSION: 50-70 percent luminal diameter stenosis of cavernous portion of right internal carotid artery. No other significant stenosis identified on scanning of the the cervical cranial region. CT THORAX ABD/PEL CTA TECHNIQUE: CT angiography of the chest, abdomen and pelvis was performed with bolus infusion of 100 cc of Omnipaque 350. Axial CT angiography was performed with multi-slice acquisition and multi-planar and/or 3D reconstructions. COMPARISON: CT CHEST FOR PE, ABD PELVIS W from 11/08/2016 CT CHEST FOR PE, ABD PELVIS W from 11/08/2016 CR,XR XR CHEST 2V PA LATERAL from 09/01/2019 CR,XR XR CHEST 2V PA LATERAL from 09/01/[address] BRAIN NECK CTA from 12/26/2020 FINDINGS: There are severe bullous pulmonary emphysematous changes. There is masslike increased radiodensity at the right lung apex posteriorly, significantly more prominent than on prior chest CT of October 2016. Possibility of neoplastic disease not excluded, PET-CT or tissue sampling may be considered if clinically appropriate. No other mass lesion identified. No significant pleural effusion. Pulmonary arterial circulation is not well opacified but there is no gross central pulmonary embolus. Note is made of dilatation of the main pulmonary artery consistent with chronic pulmonary arterial hypertension. No thoracic aortic dissection or aneurysm. Thoracic a aorta and major branches all show marked wall calcification. Proximal left subclavian artery shows probable greater than 50 percent luminal diameter stenosis. Multiple coronary artery calcifications noted. No pleural effusion. No mediastinal or hilar adenopathy. Tracheobronchial tree appears intact. Note is made of wall thickening of the stomach, this is nonspecific but may represent gastritis. Neoplastic process not excluded, correlation with endoscopy recommended. No focal hepatic or renal abnormality seen. Hepatic steatosis noted. Gallbladder and bile ducts are CT normal. Pancreas is unremarkable. Spleen is unremarkable. No evidence of hydronephrosis or nephrolithiasis. No gross renal or adrenal mass. No abdominal aortic aneurysm or dissection. There is severe calcification of abdominal aorta and all major visceral branches. There is occlusion of the origin of the celiac trunk with reconstitution just beyond the proximal trunk period there is greater than 50 percent luminal diameter stenosis of superior mesenteric artery. There is probable greater than 50 percent luminal diameter stenosis of both right and left renal arteries, and a possibly greater than 90 percent luminal diameter stenosis on the right. There is no gross abdominal lymphadenopathy. No evidence of bowel obstruction. No evidence of diverticulitis or appendicitis. No free air seen. IMPRESSION: Severe multi focal atheromatous disease as described above. Findings suspicious for new right upper lobe pulmonary mass. Additional evaluation with PET/CT or tissue sampling should be considered. Wall thickening of the stomach, gastritis or neoplastic process not excluded. Correlation with endoscopy suggested when clinically appropriate. Lab Data Lab results reviewed: Yes I reviewed the patient's lab results. Labs: 12/26/20 14:05 Blood Blood Culture - Pending 12/26/20 13:51 Blood Blood Culture - Pending Laboratory Tests Range/Units 12/26/20 12/26/20 12/26/20 13:35 13:35 13:35 WBC (4.4-10.8) 10^3/uL 11.66 H RBC (3.93-5.22) 10^6/uL 3.64 L Hgb (11.2-15.7) g/dL 12.3 Hct (36.0-46.0) % 37.4 MCV (80-95) fL 102.7 H MCH (27.0-33.0) pg 33.8 H MCHC (32.0-36.0) % 32.9 RDW (11.7-14.6) % 14.4 Plt Count (130-400) 10^3/uL 212 MPV (8.0-11.0) fL 10.3 Immature Gran % 0.4 Neutrophils % 82.3 Lymphocytes % 11.2 Monocytes % 5.7 Eosinophils % 0.1 Basophils % 0.3 Nucleated RBC % % 0 Absolute Neutrophils (1.2-6.7) 10^3/uL 9.60 H Absolute Lymphocytes (1.2-3.4) 10^3/uL 1.31 Absolute Monocytes (0.1-0.8) 10^3/uL 0.66 Absolute Eosinophils (0.0-0.7) 10^3/uL 0.01 Absolute Basophils (0.0-0.2) 10^3/uL 0.03 VBG Lactate (0.6-1.4) mmol/L Sodium (136-145) mmol/L 138 Potassium (3.5-5.1) mmol/L 3.5 Chloride (98-107) mmol/L 101 Carbon Dioxide (21.0-32.0) mmol/L 21.1 Anion Gap (3-11) mmol/L 15.9 H BUN (7-18) mg/dL 15 Creatinine (0.55-1.02) mg/dL 1.5 H Estimated GFR/1.73 m2 (mL/min/1.73m2) 35.54 Glucose (74-106) mg/dL 120 H Calcium (8.5-10.1) mg/dL 7.5 L Magnesium (1.8-2.4) mg/dL Total Bilirubin (0.2-1.0) mg/dL 0.8 AST (15-37) U/L 65 H ALT (14-59) U/L 60 H Alkaline Phosphatase (46-116) U/L 137 H Troponin I (<0.06) ng/mL Total Protein (6.4-8.2) g/dL 6.6 Albumin (3.4-5.0) g/dL 3.2 L Lipase (73-393) U/L 110 Ethyl Alcohol (<3) mg/dL < 3.0 COVID-19 Source Range/Units 12/26/20 12/26/20 12/26/20 13:35 13:35 14:05 WBC (4.4-10.8) 10^3/uL RBC (3.93-5.22) 10^6/uL Hgb (11.2-15.7) g/dL Hct (36.0-46.0) % MCV (80-95) fL MCH (27.0-33.0) pg MCHC (32.0-36.0) % RDW (11.7-14.6) % Plt Count (130-400) 10^3/uL MPV (8.0-11.0) fL Immature Gran % Neutrophils % Lymphocytes % Monocytes % Eosinophils % Basophils % Nucleated RBC % % Absolute Neutrophils (1.2-6.7) 10^3/uL Absolute Lymphocytes (1.2-3.4) 10^3/uL Absolute Monocytes (0.1-0.8) 10^3/uL Absolute Eosinophils (0.0-0.7) 10^3/uL Absolute Basophils (0.0-0.2) 10^3/uL VBG Lactate (0.6-1.4) mmol/L 2.6 H* Sodium (136-145) mmol/L Potassium (3.5-5.1) mmol/L Chloride (98-107) mmol/L Carbon Dioxide (21.0-32.0) mmol/L Anion Gap (3-11) mmol/L BUN (7-18) mg/dL Creatinine (0.55-1.02) mg/dL Estimated GFR/1.73 m2 (mL/min/1.73m2) Glucose (74-106) mg/dL Calcium (8.5-10.1) mg/dL Magnesium (1.8-2.4) mg/dL 1.2 L Total Bilirubin (0.2-1.0) mg/dL AST (15-37) U/L ALT (14-59) U/L Alkaline Phosphatase (46-116) U/L Troponin I (<0.06) ng/mL < 0.05 Total Protein (6.4-8.2) g/dL Albumin (3.4-5.0) g/dL Lipase (73-393) U/L Ethyl Alcohol (<3) mg/dL COVID-19 Source Range/Units 12/26/20 14:40 WBC (4.4-10.8) 10^3/uL RBC (3.93-5.22) 10^6/uL Hgb (11.2-15.7) g/dL Hct (36.0-46.0) % MCV (80-95) fL MCH (27.0-33.0) pg MCHC (32.0-36.0) % RDW (11.7-14.6) % Plt Count (130-400) 10^3/uL MPV (8.0-11.0) fL Immature Gran % Neutrophils % Lymphocytes % Monocytes % Eosinophils % Basophils % Nucleated RBC % % Absolute Neutrophils (1.2-6.7) 10^3/uL Absolute Lymphocytes (1.2-3.4) 10^3/uL Absolute Monocytes (0.1-0.8) 10^3/uL Absolute Eosinophils (0.0-0.7) 10^3/uL Absolute Basophils (0.0-0.2) 10^3/uL VBG Lactate (0.6-1.4) mmol/L Sodium (136-145) mmol/L Potassium (3.5-5.1) mmol/L Chloride (98-107) mmol/L Carbon Dioxide (21.0-32.0) mmol/L Anion Gap (3-11) mmol/L BUN (7-18) mg/dL Creatinine (0.55-1.02) mg/dL Estimated GFR/1.73 m2 (mL/min/1.73m2) Glucose (74-106) mg/dL Calcium (8.5-10.1) mg/dL Magnesium (1.8-2.4) mg/dL Total Bilirubin (0.2-1.0) mg/dL AST (15-37) U/L ALT (14-59) U/L Alkaline Phosphatase (46-116) U/L Troponin I (<0.06) ng/mL Total Protein (6.4-8.2) g/dL Albumin (3.4-5.0) g/dL Lipase (73-393) U/L Ethyl Alcohol (<3) mg/dL COVID-19 Source Nasal/Nares ECG Data Attestation: I personally reviewed and interpreted this ECG (s) as follows: Interpretation: rate of 97, sinus, peaked T waves in anterior leads. MT 149. QRS 86. QTc 500. HPI General Mode of arrival: ambulatory . Date/Time Provider Initiated Documentation: 12/26/20 13:16 . Limitations to Documentation: no limitations . Information obtained by: patient . 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 Patient states she was at the local animal nursing home cleaning the cages when she felt sudden onset of lightheadedness. She states shortly after this she felt sudden onset of neck pain. She denies any known injury but thinks the pain is worse with head movement. She also states she has had a few days of watery brown diarrhea that has been approximately 7 times daily. She denies any recent new medications, recent antibiotics, recent travel, headache, fever, vomiting, chest pain, shortness of breath, abdominal pain. Related Data Home Medications Medication Instructions Recorded Confirmed Nicotrol 1 inh INHALATION Q4H PRN PRN #168 08/13/20 ea famotidine [Pepcid] 20 mg PO BID #60 tab 08/13/20 12/26/20 gabapentin 300 mg PO TID 08/13/20 12/26/20 multivitamin [Multiple Vitamins] 1 tab PO DAILY #30 tab 08/13/20 12/26/20 thiamine mononitrate (vit B1) 100 mg PO DAILY #30 tab 08/13/20 [Vitamin B-1 (mononitrate)] aspirin 81 mg PO DAILY #30 tab 12/27/20 atorvastatin 40 mg PO QHS #30 tab 12/27/20 magnesium oxide 400 mg PO DAILY #30 tab 12/27/20 Previous Rx's Medication Instructions Recorded Nicotrol 1 inh INHALATION Q4H PRN PRN #168 08/13/20 ea famotidine [Pepcid] 20 mg PO BID #60 tab 08/13/20 multivitamin [Multiple Vitamins] 1 tab PO DAILY #30 tab 08/13/20 thiamine mononitrate (vit B1) 100 mg PO DAILY #30 tab 08/13/20 [Vitamin B-1 (mononitrate)] aspirin 81 mg PO DAILY #30 tab 12/27/20 atorvastatin 40 mg PO QHS #30 tab 12/27/20 magnesium oxide 400 mg PO DAILY #30 tab 12/27/20 Allergies Allergy/AdvReac Type Severity Reaction Status Date / Time bacitracin Allergy Mild localized Verified 12/26/20 13:28 [From Neosporin redness ([id number])] neomycin Allergy Mild localized Verified 12/26/20 13:28 [From Neosporin redness ([id number])] polymyxin B Allergy Mild localized Verified 12/26/20 13:28 [From Neosporin redness ([id number])] General RAHEEM: 3 Review of Systems All systems reviewed & are unremarkable except as noted in HPI and below Constitutional Constitutional: Reports as per HPI, Denies chills and Denies fever(s) Eyes Eyes: Denies blurry vision ENT Ears, Nose, Mouth, and Throat: Reports dizziness, Reports neck pain, Denies sore throat and Denies throat swelling Cardiovascular Cardiovascular: Denies chest pain and Denies dyspnea Respiratory Respiratory: Denies cough and Denies dyspnea Gastrointestinal Gastrointestinal: Denies abdominal pain, Reports diarrhea and Denies vomiting Genitourinary Genitourinary: Denies hematuria and Denies dysuria Musculoskeletal Musculoskeletal: Denies back pain, Reports neck pain and Denies numbness Integumentary/Breasts Skin/Breast: Denies lesions and Denies rash Neurologic Neurologic: Reports dizziness, Denies localized weakness and Denies numbness Allergic/Immunologic Allergic/Immunologic: Denies throat swelling PFSH Medical History Alcohol abuse Ascites Bilateral leg pain Bilateral lower extremity edema Cachexia Chest pain Chronic vomiting COPD (chronic obstructive pulmonary disease) Diastolic dysfunction Folate deficiency anemia Frequent falls Gastroesophageal reflux disease Hair loss Hepatic fibrosis Hx pulmonary embolism Hypomagnesemia Malnutrition Pancreatitis Tobacco dependence syndrome Ulcer of lower extremity Unintentional weight loss Vitamin D deficiency Surgical History ENT/Nasal surgery (~2007) foot surgery (~2000) Ligation of fallopian tube (~1999) punch biopsy, skin of ankle, right lateral (11/24/16) negative for malignancy, sparse inflammation and reactive blood vessels Social History Smoking/Tobacco Use Status: Current every day Tobacco Type: cigarettes Smoking risk assessment performed?: Yes Alcohol Intake: current Alcohol Intake frequency: a few times a week Alcohol type: other Drug use: Occasionally Substance use type: marijuana Do you feel safe at home: Yes Do you feel safe in your relationship?: Yes History History Para 0 Hx # Term Pregnancies Multiple births Hx # Pregnancies Ectopic pregnancies AB induced Hx Number of Living Children AB spontaneous Exam Const General: cooperative, no acute distress, frail appearing and ill appearing chronically Nutritional Appearance: cachectic Orientation: alert, awake and oriented x3 HENMT Head: normal to inspection Face and sinus: normal facial exam Eyes General: appearance normal, both eyes and all related structures Pupils: PERRL EOM: EOM intact bilaterally Neck Neck: normal visual inspection and No submandibular swelling Lymphatic: no lymphadenopathy noted Chest Chest: normal inspection of the chest and no tenderness Resp Effort & Inspection: normal respiratory effort and able to speak in complete sentences Auscultation: clear to auscultation bilaterally Cardio Rate: regular rate Rhythm: regular rhythm GI Inspection: normal to inspection Palpation: soft, not firm, not rigid and nontender Auscultation: normal bowel sounds Skin General skin exam: no rashes or lesions noted Neuro General: patient alert, patient awake, patient oriented x3, moves all extremities, no meningeal signs and no focal motor deficits Cranial Nerves: CN's II-XI intact bilaterally Cognition: normal cognition Speech: speech normal Motor: muscle tone normal throughout and strength 5/5 throughout Sensory Exam: no sensory deficits noted Extrem General: normal to inspection, full ROM, capillary refill normal, no calf tenderness bilaterally and no edema Psych Appearance: grossly normal Mental Status: mental status grossly normal Speech and Movement: speech and movement normal Affect: normal affect
--- NOTE | 2020-12-26 13:30 | DI.CT_ITS ---
Exam(s) CT THORAX ABD/PEL CTA EXAM: CT THORAX ABD/PEL CTA TECHNIQUE: CT angiography of the chest, abdomen and pelvis was performed with bolus infusion of 100 cc of Omnipaque 350. Axial CT angiography was performed with multi-slice acquisition and multi-planar and/or 3D reconstruc tions. COMPARISON: CT CHEST FOR PE, ABD PELVIS W from 11/08/2016 CT CHEST FOR PE, ABD PELVIS W from 11/08/2016 CR,XR XR CHEST 2V PA LATERAL from 09/01/2019 CR,XR XR CHEST 2V PA LATERAL from 09/01/[address] BRAIN NECK CTA from 12/26/2020 FINDINGS: There are severe bullous pulmonary emphysematous changes. There is masslike increased radiodensity a t the right lung apex posteriorly, significantly more prominent than on prior chest CT of October 2016. Possibility of neoplastic disease not excluded, PET-CT or tissue sampling may be considered if clini gabby appropriate. No other mass lesion identified. No significant pleural effusion. Pulmonary arterial circulation is not well opacified but there is no gross central pulmonary embolus. Note is made of dilatation of the main pulmonary artery consistent with chronic pulmonary arterial hypertension. No thoracic aortic dissection or aneurysm. Thoracic a aorta and major branches all sh ow marked wall calcification. Proximal left subclavian artery shows probable greater than 50 percent luminal diameter stenosis. Multiple coronary artery calcifications noted. No pleural effusion. No mediastinal or hilar adenopathy. Tracheobronchial tree appears intact. Note is made of wall thickening of the stomach, this is nonspecific but may represent gastritis. Galindo plastic process not excluded, correlation with endoscopy recommended. No focal hepatic or renal abnormality seen. Hepatic steatosis noted. Gallbladder and bile ducts are CT normal. Pancreas is unremarkable. Spleen is unremarkable. No evidence of hydronephrosis or nephrolithiasis. No gross renal or adrenal mass. No abdominal aortic aneurysm or dissection. There is severe calcification of abdominal aorta and all major visceral branches. There is occlusion of the origin of the celiac trunk with reconstitution j ust beyond the proximal trunk period there is greater than 50 percent luminal diameter stenosis of davis perior mesenteric artery. There is probable greater than 50 percent luminal diameter stenosis of bot h right and left renal arteries, and a possibly greater than 90 percent luminal diameter stenosis on the right. There is no gross abdominal lymphadenopathy. No evidence of bowel obstruction. No evidence of diver ticulitis or appendicitis. No free air seen. IMPRESSION: Severe multi focal atheromatous disease as described above. Findings suspicious for new right upper lobe pulmonary mass. Additional evaluation with PET/CT or ti ssue sampling should be considered. Wall thickening of the stomach, gastritis or neoplastic process not excluded. Correlation with endos copy suggested when clinically appropriate. RADIATION DOSE DELIVERED: 604.39mGy.cm Total DLP 604.39mGy.cm Total DLP 8.58mGy CTDIvol DATA REPOSITORY: All CT scans at this facility are submitted to the National Radiology Data Registry (NRDR) Dose Index Registry (DIR) with the [employer] ([employer]). RADIATION OPTIMIZATION: All CT scans at this facility use at least one of these dose optimization te chniques: automated exposure control; mA and/or kV adjustment per patient size (includes targeted exa ms where dose is matched to clinical indication); or iterative reconstruction.
--- NOTE | 2020-12-26 13:30 | DI.CT_ITS ---
Exam(s) CT BRAIN NECK CTA EXAM: CT BRAIN NECK CTA CLINICAL HISTORY: dizziness, neck pain. TECHNIQUE: Imaging Protocol: Axial CT angiography was performed with multi-slice acquisition and mu lti-planar and/or 3D reconstructions. CONTRAST MATERIAL: Intravenous: Omnipaque 350 Contrast volume:structured data in ml COMPARISON: CT ABD PELVIS WO CONTRAST from 01/14/2017 FINDINGS: CT angiography of the cervical cranial region was performed according to the usual protocol with intr avenous infusion of 85 cc of Omnipaque 350.. Initial noncontrast scanning of the head is unremarkable. Visualized lung apices show marked emphysematous changes. Visualized portions of thoracic aorta and pulmonary arterial circulation are unremarkable except for significant calcific atheromatous plaque i n the aortic arch.. There is no evidence of a cervical mass or adenopathy. The tracheal laryngeal st ructures appear intact. There is calcified plaque of the common carotid arteries without evidence of significant stenosis. M ild calcified plaque also noted in the proximal internal carotid arteries with no significant stenosi s. There is a diminutive right vertebral artery. Left vertebral artery is small. No evidence focal dis section or occlusion of the vertebrals in the cervical region. Intracranial portions of the internal carotid arteries show calcified plaque bilaterally, particularl y in the cavernous portions period there is stenosis of the cavernous portion of the right internal c arotid artery estimated at 50-70 percent luminal diameter period there is stenosis of the left cavern ous internal carotid artery estimated at less than 50 percent luminal diameter. The intracranial vertebral arteries are diminutive as is the basilar artery. No focal evidence of oc clusion. The posterior circulation within the brain is supplied mainly across the posterior communic ating arteries bilaterally. No aneurysm identified in the region of the [id number]. The anterior, middle, and posterior cer ebral arteries and major branches appear intact with no evidence of aneurysm, stenosis, or dissection . No enhancing brain lesion identified on 5 minutes delayed images.. IMPRESSION: 50-70 percent luminal diameter stenosis of cavernous portion of right internal carotid artery. No other significant stenosis identified on scanning of the the cervical cranial region. RADIATION DOSE DELIVERED: 1,930.37mGy.cmTotal DLP 1,930.37mGy.cm Total DLP 42.1mGy CTDIvol DATA REPOSITORY: All CT scans at this facility are submitted to the National Radiology Data Registry (NRDR) Dose Index Registry (DIR) with the [employer] (ACR). RADIATION OPTIMIZATION: All CT scans at this facility use at least one of these dose optimization te chniques: automated exposure control; mA and/or kV adjustment per patient size (includes targeted exa ms where dose is matched to clinical indication); or iterative reconstruction.
[2020-12-26] MEDS: Normal Saline 1,000 ML 1000 ML IV (13:35)
[2020-12-26 13:52] LABS: Abs Immature Grans 0.05 10^3/uL (0.0-0.06); Absolute Basophil Count 0.03 10^3/uL (0.0-0.2); Absolute Eosinophil Count 0.01 10^3/uL (0.0-0.7); Absolute Lymphocyte Count 1.31 10^3/uL (1.2-3.4); Basophils % 0.3; Eosinophils % 0.1; HCT 37.4 % (36.0-46.0); HGB 12.3 g/dL (11.2-15.7); Immature Grans % 0.4; Lymphocytes % 11.2; MCH 33.8 pg (27.0-33.0); MCHC 32.9 % (32.0-36.0); MCV 102.7 fL (80-95); MPV 10.3 fL (8.0-11.0); Monocytes % 5.7; Neutrophils % 82.3; Nucleated RBC 0 %; Platelet Count 212 10^3/uL (130-400); RBC 3.64 10^6/uL (3.93-5.22); RDW 14.4 % (11.7-14.6); RDW-SD 54.5 fL; WBC 11.66 10^3/uL (4.4-10.8)
[2020-12-26 13:54] LABS: Absolute Monocyte Count 0.66 10^3/uL (0.1-0.8)
--- NOTE | 2020-12-26 14:08 | NUR.NOTE ---
1405 labs and blood cultures drawn left ac.
[2020-12-26] MEDS: Omnipaque 350 MG/ML 100 ML BTL IJ (14:15)
[2020-12-26 14:19] LABS: Lactate 2.6 mmol/L (0.6-1.4)
[2020-12-26 14:19] LABS: ALT 60 U/L (14-59); AST 65 U/L (15-37); Albumin 3.2 g/dL (3.4-5.0); Alkaline Phosphatase 137 U/L (46-116); Anion Gap 15.9 mmol/L (3-11); BUN 15 mg/dL (7-18); Bilirubin, Total 0.8 mg/dL (0.2-1.0); CO2 21.1 mmol/L (21.0-32.0); CREATININE 1.5 mg/dL (0.55-1.02); Calcium 7.5 mg/dL (8.5-10.1); Chloride 101 mmol/L (98-107); Estimated GFR 35.54 (mL/min/1.73m2); Glucose 120 mg/dL (74-106); Lipase 110 U/L (73-393); Potassium 3.5 mmol/L (3.5-5.1); Sodium 138 mmol/L (136-145); Total Protein 6.6 g/dL (6.4-8.2)
[2020-12-26 14:25] LABS: ETHANOL BLOOD < 3.0 mg/dL (<3)
[2020-12-26 14:56] LABS: Magnesium 1.2 mg/dL (1.8-2.4)
[2020-12-26 14:58] LABS: Source Nasal/Nares
[2020-12-26] MEDS: Ketorolac 30 MG/ML VIAL IVP (15:00)
[2020-12-26 15:05] LABS: Troponin I < 0.05 ng/mL (<0.06)
[2020-12-26] MEDS: MAGNESIUM SULFATE 2 GM/50 ML BAG IVPB (15:06)
[2020-12-26 15:53] LABS: COVID-19 PCR Negative (Negative)
[2020-12-26 16:50] LABS: Bilirubin Negative (Negative); Blood Trace-lysed (Negative); Clarity Sl Cloudy (Clear); Glucose Negative (Negative); Ketones 15 mg/dL (Negative); Leukocyte Esterase Negative (Negative); Nitrite Negative (Negative); Specific Gravity <= 1.005 (1.005-1.025); Urobilinogen 0.2 EU/dL (Up TO 0.2)
[2020-12-26 16:59] LABS: Bacteria Negative HPF (Negative); C & S Indicated? No; Casts 3-5 Hyaline LPF (Negative); Crystals Negative HPF (Negative); Epithelial Cells Few HPF (Negative); Mucus Moderate (Negative); RBC 0-2 HPF (0-2)
[2020-12-26] MEDS: Lactated Ringers 1,000 ML 100 ML IV (17:33)
--- NOTE | 2020-12-26 17:58 | W.PM.HP.N ---
Date of service: 12/26/20 Time of Service: 17:59 Assessment and Plan Assessment and plan (1) Hypotension: Status: Acute Assessment and plan: Resolved with IV hydration. Cont fluids overnight. Encourage po intake. Patient drinking OJ w/o difficulty during my eval. (2) Acute kidney injury: Status: Acute Assessment and plan: Pre-renal d/t volume depletion. Mild. IV and oral hydration. Monitor creatinine. (3) Hypomagnesemia: Status: Acute Assessment and plan: IV replacement. She has had loose stools / diarrhea per her account so did give oral Mg at time of admission. This is a recurrent issue and is likely related to poor caloric intake d/t alcohol abuse. (4) Alcoholism: Status: Acute Assessment and plan: Will likely d/c tomorrow. Last drink was 2 days prior to admission date. She denies h/o withdrawal (5) Tobacco abuse: Status: Acute Assessment and plan: NIcotrol inhaler; she has been using at home. (6) Diarrhea: Status: Acute Assessment and plan: Will monitor to see if this is still occuring. Treat appropriately if noted. History of Present Illness History of Present Illness Chief Complaint: Dizzines. Narrative: This is a 60 yo female with a PMH of chronic liver disease with ascites, COPD, chronic folate def., GERD, recurrent hypomagnesemia, pancreatitis, chronic alcohol abuse, tobacco abuse. 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 No syncope, fall. No vertigo. No CP or palpitations that proceeded the dizziness. 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 The neck pain was worsened with neck movements. She states she had also had several days of watery brown diarrhea; appx 7 episodes daily. No F/C, N/V/abd pain. No SOA/cough. No recent antibiotic use. Covid testing was negative. WBC 11.66. UA negative. Lactate 2.6. BUN 15. Creatinine 1.5; baseline 0.7. CT abd/pelvis showed multifocal atheromatous disease, new R upper lobe pulmonary mass. Additional eval with PET/CT or tissue sampling suggested. Wall thickening of the stomach; gastritis or neoplastic process not excluded. BP 81/47 and pulse in the 90's at time of presentation. With IV fluids, both normalized. She also endorsed feeling much better after IV hydration. Review of Systems All systems reviewed & are unremarkable except as noted in HPI and below PFSH Medical History Alcohol abuse Ascites Bilateral leg pain Bilateral lower extremity edema Cachexia Chest pain Chronic vomiting COPD (chronic obstructive pulmonary disease) Diastolic dysfunction Folate deficiency anemia Frequent falls Gastroesophageal reflux disease Hair loss Hepatic fibrosis Hx pulmonary embolism Hypomagnesemia Malnutrition Pancreatitis Tobacco dependence syndrome Ulcer of lower extremity Unintentional weight loss Vitamin D deficiency Surgical History ENT/Nasal surgery (~2007) foot surgery (~2000) Ligation of fallopian tube (~1999) punch biopsy, skin of ankle, right lateral (11/24/16) negative for malignancy, sparse inflammation and reactive blood vessels Social History Smoking/Tobacco Use Status: Current every day Tobacco Type: cigarettes Smoking risk assessment performed?: Yes Alcohol Intake: current Alcohol Intake frequency: a few times a week Alcohol type: other Drug use: Occasionally Substance use type: marijuana Do you feel safe at home: Yes Do you feel safe in your relationship?: Yes History History Para 0 Hx # Term Pregnancies Multiple births Hx # Pregnancies Ectopic pregnancies AB induced Hx Number of Living Children AB spontaneous Meds Allergies and Home Medications Allergies Allergy/AdvReac Type Severity Reaction Status Date / Time bacitracin Allergy Mild localized Verified 12/26/20 13:28 [From Neosporin redness ([id number])] neomycin Allergy Mild localized Verified 12/26/20 13:28 [From Neosporin redness ([id number])] polymyxin B Allergy Mild localized Verified 12/26/20 13:28 [From Neosporin redness ([id number])] Home Medications Medication Instructions Recorded Confirmed Type atorvastatin 10 mg PO HS 09/01/19 12/26/20 History lisinopril 20 mg PO DAILY 09/01/19 12/26/20 History famotidine [Pepcid] 20 mg PO BID #60 tab 08/13/20 12/26/20 Rx gabapentin 300 mg PO TID 08/13/20 12/26/20 History multivitamin [Multiple Vitamins] 1 tab PO DAILY #30 tab 08/13/20 12/26/20 Rx nicotine [Nicotrol] 1 inh INHALATION Q4H PRN PRN #168 08/13/20 Rx ea thiamine mononitrate (vit B1) 100 mg PO DAILY #30 tab 08/13/20 Rx [Vitamin B-1 (mononitrate)] Exam Const General: cooperative and no acute distress Nutritional Appearance: cachectic Orientation: alert and oriented x3 HENMT Head: normocephalic and atraumatic Neck Neck: full ROM Resp Effort & Inspection: normal respiratory effort Auscultation: clear to auscultation bilaterally Cardio Rate: regular rate Rhythm: regular rhythm Heart Sounds: S1 normal and S2 normal GI Palpation: soft and nontender Skin General skin exam: no rashes or lesions noted Neuro General: no focal motor deficits Cognition: normal cognition Speech: speech normal Extrem General: no pedal edema and no calf tenderness Psych Mental Status: mental status grossly normal Speech and Movement: speech and movement normal Mood: congruent mood Affect: normal affect Results Labs Result diagrams: 12/26/20 13:35 12/26/20 13:35 Labs: Laboratory Results - last 24 hr 12/26/20 12/26/20 12/26/20 13:35 13:35 13:35 WBC 11.66 H RBC 3.64 L Hgb 12.3 Hct 37.4 MCV 102.7 H MCH 33.8 H MCHC 32.9 RDW 14.4 Plt Count 212 MPV 10.3 Immature Gran % 0.4 Neutrophils % 82.3 Lymphocytes % 11.2 Monocytes % 5.7 Eosinophils % 0.1 Basophils % 0.3 Nucleated RBC % 0 Absolute Neutrophils 9.60 H Absolute Lymphocytes 1.31 Absolute Monocytes 0.66 Absolute Eosinophils 0.01 Absolute Basophils 0.03 VBG Lactate Sodium 138 Potassium 3.5 Chloride 101 Carbon Dioxide 21.1 Anion Gap 15.9 H BUN 15 Creatinine 1.5 H Estimated GFR/1.73 m2 35.54 Glucose 120 H Calcium 7.5 L Magnesium Total Bilirubin 0.8 AST 65 H ALT 60 H Alkaline Phosphatase 137 H Troponin I Total Protein 6.6 Albumin 3.2 L Lipase 110 Urine Color Urine Clarity Urine pH Ur Specific [place] Urine Protein Urine Ketones Urine Blood Urine Nitrite Urine Bilirubin Urine Urobilinogen Ur Leukocyte Esterase Urine RBC Urine WBC Ur Epithelial Cells Urine Crystals Urine Bacteria Urine Casts Urine Mucus Ur Culture Indicated? Urine Glucose Ethyl Alcohol < 3.0 COVID-19 Source SARS-CoV-2 (PCR) 12/26/20 12/26/20 12/26/20 13:35 13:35 14:05 WBC RBC Hgb Hct MCV MCH MCHC RDW Plt Count MPV Immature Gran % Neutrophils % Lymphocytes % Monocytes % Eosinophils % Basophils % Nucleated RBC % Absolute Neutrophils Absolute Lymphocytes Absolute Monocytes Absolute Eosinophils Absolute Basophils VBG Lactate 2.6 H* Sodium Potassium Chloride Carbon Dioxide Anion Gap BUN Creatinine Estimated GFR/1.73 m2 Glucose Calcium Magnesium 1.2 L Total Bilirubin AST ALT Alkaline Phosphatase Troponin I < 0.05 Total Protein Albumin Lipase Urine Color Urine Clarity Urine pH Ur Specific [place] Urine Protein Urine Ketones Urine Blood Urine Nitrite Urine Bilirubin Urine Urobilinogen Ur Leukocyte Esterase Urine RBC Urine WBC Ur Epithelial Cells Urine Crystals Urine Bacteria Urine Casts Urine Mucus Ur Culture Indicated? Urine Glucose Ethyl Alcohol COVID-19 Source SARS-CoV-2 (PCR) 12/26/20 12/26/20 14:40 16:50 WBC RBC Hgb Hct MCV MCH MCHC RDW Plt Count MPV Immature Gran % Neutrophils % Lymphocytes % Monocytes % Eosinophils % Basophils % Nucleated RBC % Absolute Neutrophils Absolute Lymphocytes Absolute Monocytes Absolute Eosinophils Absolute Basophils VBG Lactate Sodium Potassium Chloride Carbon Dioxide Anion Gap BUN Creatinine Estimated GFR/1.73 m2 Glucose Calcium Magnesium Total Bilirubin AST ALT Alkaline Phosphatase Troponin I Total Protein Albumin Lipase Urine Color Yellow Urine Clarity Sl Cloudy Urine pH 6.0 Ur Specific [place] <= 1.005 Urine Protein 100 H Urine Ketones 15 H Urine Blood Trace-lysed H Urine Nitrite Negative Urine Bilirubin Negative Urine Urobilinogen 0.2 Ur Leukocyte Esterase Negative Urine RBC 0-2 Urine WBC 3-5 Ur Epithelial Cells Few Urine Crystals Negative Urine Bacteria Negative Urine Casts 3-5 Hyaline Urine Mucus Moderate Ur Culture Indicated? No Urine Glucose Negative Ethyl Alcohol COVID-19 Source Nasal/Nares SARS-CoV-2 (PCR) Negative Last Vital Signs Temp 36.3 C L 12/26/20 16:50 Pulse 100 H 12/26/20 16:50 Resp 16 12/26/20 16:50 BP 119/74 12/26/20 16:50 Pulse Ox 98 12/26/20 16:50
[2020-12-26] MEDS: Normal Saline Flush 10 ML SYR (18:08)
[2020-12-26] MEDS: Atorvastatin 10 MG TAB PO (21:54)
[2020-12-26] MEDS: Gabapentin 300 MG CAP PO (21:54)
[2020-12-27] MEDS: Lactated Ringers 1,000 ML 100 ML IV (03:29)
[2020-12-27 06:45] LABS: Abs Immature Grans 0.03 10^3/uL (0.0-0.06); Absolute Basophil Count 0.04 10^3/uL (0.0-0.2); Absolute Eosinophil Count 0.06 10^3/uL (0.0-0.7); Absolute Lymphocyte Count 1.65 10^3/uL (1.2-3.4); Absolute Monocyte Count 0.72 10^3/uL (0.1-0.8); Absolute Neutrophil Count 7.23 10^3/uL (1.2-6.7); Basophils % 0.4; Eosinophils % 0.6; HCT 32.5 % (36.0-46.0); HGB 10.6 g/dL (11.2-15.7); Immature Grans % 0.3; MCH 33.9 pg (27.0-33.0); MCHC 32.6 % (32.0-36.0); MCV 103.8 fL (80-95); MPV 10.4 fL (8.0-11.0); Monocytes % 7.4; Neutrophils % 74.3; Nucleated RBC 0 %; Platelet Count 172 10^3/uL (130-400); RBC 3.13 10^6/uL (3.93-5.22); RDW 14.8 % (11.7-14.6); RDW-SD 55.6 fL; WBC 9.73 10^3/uL (4.4-10.8)
[2020-12-27 07:09] LABS: Magnesium 1.7 mg/dL (1.8-2.4)
[2020-12-27 07:14] LABS: ALT 45 U/L (14-59); AST 45 U/L (15-37); Albumin 2.5 g/dL (3.4-5.0); Alkaline Phosphatase 107 U/L (46-116); Anion Gap 8.1 mmol/L (3-11); BUN 17 mg/dL (7-18); Bilirubin, Total 0.4 mg/dL (0.2-1.0); CO2 25.9 mmol/L (21.0-32.0); Calcium 6.9 mg/dL (8.5-10.1); Chloride 105 mmol/L (98-107); Estimated GFR 56.75 (mL/min/1.73m2); Glucose 93 mg/dL (74-106); Potassium 3.9 mmol/L (3.5-5.1); Sodium 139 mmol/L (136-145); Total Protein 5.6 g/dL (6.4-8.2)
[2020-12-27 07:25] VITALS: BP 112/72; PULSE 80; RESP 18; TEMP 36.2; O2SAT 97
[2020-12-27] MEDS: Gabapentin 300 MG CAP PO (09:07)
[2020-12-27] MEDS: Thiamine 100 MG TAB PO (09:07)
[2020-12-27] MEDS: Famotidine 20 MG TAB PO (09:08)
[2020-12-27] MEDS: Multivitamin TAB 1 TAB PO (09:08)
[2020-12-27] MEDS: MAGNESIUM SULFATE 2 GM/50 ML BAG IVPB (10:27)
--- NOTE | 2020-12-27 10:53 | W.PM.DS.N ---
Date of service: 12/27/20 Time of Service: 10:53 DS: Diagnosis Discharge Diagnosis (1) Dehydration: Status: Resolved (2) Hypotension: Status: Resolved (3) Acute kidney injury: Status: Resolved (4) Gastroenteritis: Status: Resolved (5) Mass of upper lobe of right lung: Status: Acute (6) Stenosis of right internal carotid artery: Status: Acute (7) Hypomagnesemia: Status: Chronic (8) Tobacco abuse: Status: Chronic (9) Alcohol abuse: Status: Chronic (10) COVID-19 ruled out by laboratory testing: Status: Ruled-out Discharge Plan Disposition Patient Disposition: HOME Condition: Stable Discharge Details Reason For Visit: hypotension/michael/hipomagnemia/lung mass/stomach wal Admit Date/Time: 12/26/20 16:19 Admit Provider: Sesar Pruitt Attending Provider: Sesar Pruitt [facility] Course: Ms Gallego is a 60 year old female with PMHx of hypertension, chronic liver disease, alcohol abuse, tobacco abuse, who was observed on [facility] hospitalist service from 12/26/20 until 12/27/20 after presenting to [facility] ED with dizziness due to dehydration in setting of a diarrheal illness. Her workup did include CT/CTA brain/neck/chest/abdomen/pelvis. These showed a likely new right pulmonary mass as well as 50-70 % percent luminal diameter stenosis of the cavernous portion of right internal carotid artery. Neither of these were felt to be responsible for the patient's symptoms, but warrant outpatient follow up. A referral is being sent to Dr Verdin of pulmology for the lung mass. The patient is advised to stop smoking. Asa is being added to her medication list and atorvastatic dose is increased. She may require vascular surgery follow up - defer to PCP. The patient's dizziness resolved with IV hydration. There were no recurrences of diarrhea during her hospitalization, so no stool studies are available. 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 Testing could be pursued in that case through the PCP's office. The patient is also getting a tick panel drawn on this admission to be followed up on by PCP due to concerns for tick bite exposure. She had no signs of EtOH withdrawal on this admission, is now normotensive and asymptomatic, and is ready for discharge home today. We are holding her lisinopril on discharge until her follow up with PCP. Home Meds and New Rx's Prescriptions: New magnesium oxide 400 mg (241.3 mg magnesium) tablet 400 mg PO DAILY Qty: 30 RF: 0 atorvastatin 40 mg tablet 40 mg PO QHS Qty: 30 RF: 0 aspirin 81 mg tablet,delayed release (DR/EC) 81 mg PO DAILY Qty: 30 RF: 0 Continued multivitamin [Multiple Vitamins] Tablet 1 tab PO DAILY Qty: 30 RF: 0 Nicotrol 10 mg Cartridge 1 inh inhalation Q4H PRN PRN (Reason: nicotine cravings) Qty: 168 RF: 0 thiamine mononitrate (vit B1) [Vitamin B-1 (mononitrate)] 100 mg Tablet 100 mg PO DAILY Qty: 30 RF: 0 famotidine [Pepcid] 20 mg tablet 20 mg PO BID Qty: 60 RF: 0 gabapentin 300 mg Capsule 300 mg PO TID RF: 0 Discontinued atorvastatin 10 mg tablet 10 mg PO HS RF: 0 lisinopril 20 mg tablet 20 mg PO DAILY RF: 0 Discharge Instructions Instructions: Dehydration (DC) Additional Instructions: Decrease your alcohol intake and attempt to stop smoking. Return to the hospital with any fever, bleeding, chest pain, shortness of breath, if you feel dizzy. Drink plenty of fluids. Follow up with your PCP in 1-[address] weeks[address] Follow up with Dr Verdin (pulmonology) for your abnormal CT imaging of the chest. Referrals: Teresa Verdin MD [ [facility] STAFF PHYSICIAN] - (new right upper lobe pulmonary mass) Sara Patterson [Primary Care Provider] - Activity:: Activity as Tolerated Equipment/Supplies:: No Equipment Needed Diet:: As Tolerated Discharge Orders Discharge Orders: Discharge Order (Routine); Ordered 12/27/20 Ordered By: Yasmeen Squires DS: Summary Time Spent with Patient providing and/or coordinating discharge services: Greater than 30 minutes Status at Discharge Functional status at discharge: independent ambulation Overall status at discharge: patient is back to baseline Mental Status: mental status grossly normal Speech and Movement: speech and movement normal Mood: congruent mood Affect: normal affect Exam Narrative Exam Narrative: General: Pleasant middle-aged female who is wearing a striking eye liner, A&Ox3, no acute distress HEENT: EOMI, MMM Heart: RRR, no m/r/g Lungs: CTAB Abdomen: soft, nontender, nondistended Extremities: no edema BLE's Psych Mental Status: mental status grossly normal Speech and Movement: speech and movement normal Mood: congruent mood Affect: normal affect DS: Data Vitals/I&O Vitals and I&O: Vital Signs Temperature 36.2 C L 12/27/20 07:25 Temperature Source Tympanic 12/27/20 07:25 Pulse 80 12/27/20 07:25 Pulse Rhythm Regular 12/27/20 07:52 Pulse 99 H 12/26/20 15:53 Respiratory Rate 18 12/27/20 07:25 Respiratory Effort Non-Labored 12/27/20 07:52 Respiratory Depth Normal 12/27/20 07:52 Respiratory Pattern Normal 12/27/20 07:52 Blood Pressure 112/72 12/27/20 07:25 Blood Pressure Mean 78 12/26/20 15:53 Blood Pressure Position Sitting 12/26/20 13:20 Pulse Oximetry 97 12/27/20 07:25 Oxygen Delivery Method Room Air 12/27/20 07:25 Oxygen Flow Rate 0 12/27/20 07:25 Pain Level 0 12/27/20 07:25 Intake & Output 12/26/20 12/26/20 12/27/20 11:59 23:59 11:59 Intake Total 993.333 / 993.333 Balance 993.333 / 993.333 Weight 50.4 kg Intake: IV 993.333 / 993.333 Other: Urine Appearance Clear Clear Data Completed and Pending Completed studies during hospitalization [Text1]: CT brain/CTA neck; 50-70 percent luminal diameter stenosis of cavernous portion of right internal carotid artery. No other significant stenosis identified on scanning of the the cervical cranial region. CT/CTA chest/abdomen/pelvis:Severe multi focal atheromatous disease as described above. Findings suspicious for new right upper lobe pulmonary mass. Additional evaluation with PET/CT or tissue sampling should be considered. Wall thickening of the stomach, gastritis or neoplastic process not excluded. Correlation with endoscopy suggested when clinically appropriate. Pending studies at discharge: Tick panel Labs on day of discharge: Labs from last 24 hours 12/27/20 12/27/20 12/27/20 12:00 06:30 06:30 WBC 9.73 RBC 3.13 L Hgb Pending 10.6 L Hct Pending 32.5 L MCV 103.8 H MCH 33.9 H MCHC 32.6 RDW 14.8 H Plt Count 172 MPV 10.4 Immature Gran % 0.3 Neutrophils % 74.3 Lymphocytes % 17.0 Monocytes % 7.4 Eosinophils % 0.6 Basophils % 0.4 Nucleated RBC % 0 Absolute Neutrophils 7.23 H Absolute Lymphocytes 1.65 Absolute Monocytes 0.72 Absolute Eosinophils 0.06 Absolute Basophils 0.04 VBG Lactate Sodium Potassium Chloride Carbon Dioxide Anion Gap BUN Creatinine Estimated GFR/1.73 m2 Glucose Calcium Magnesium 1.7 L Total Bilirubin AST ALT Alkaline Phosphatase Troponin I Total Protein Albumin Lipase Urine Color Urine Clarity Urine pH Ur Specific [place] Urine Protein Urine Ketones Urine Blood Urine Nitrite Urine Bilirubin Urine Urobilinogen Ur Leukocyte Esterase Urine RBC Urine WBC Ur Epithelial Cells Urine Crystals Urine Bacteria Urine Casts Urine Mucus Ur Culture Indicated? Urine Glucose Ethyl Alcohol COVID-19 Source SARS-CoV-2 (PCR) 12/27/20 12/26/20 12/26/20 06:30 16:50 14:40 WBC RBC Hgb Hct MCV MCH MCHC RDW Plt Count MPV Immature Gran % Neutrophils % Lymphocytes % Monocytes % Eosinophils % Basophils % Nucleated RBC % Absolute Neutrophils Absolute Lymphocytes Absolute Monocytes Absolute Eosinophils Absolute Basophils VBG Lactate Sodium 139 Potassium 3.9 Chloride 105 Carbon Dioxide 25.9 Anion Gap 8.1 BUN 17 Creatinine 1.0 D Estimated GFR/1.73 m2 56.75 Glucose 93 Calcium 6.9 L Magnesium Total Bilirubin 0.4 AST 45 H ALT 45 Alkaline Phosphatase 107 Troponin I Total Protein 5.6 L Albumin 2.5 L Lipase Urine Color Yellow Urine Clarity Sl Cloudy Urine pH 6.0 Ur Specific [place] <= 1.005 Urine Protein 100 H Urine Ketones 15 H Urine Blood Trace-lysed H Urine Nitrite Negative Urine Bilirubin Negative Urine Urobilinogen 0.2 Ur Leukocyte Esterase Negative Urine RBC 0-2 Urine WBC 3-5 Ur Epithelial Cells Few Urine Crystals Negative Urine Bacteria Negative Urine Casts 3-5 Hyaline Urine Mucus Moderate Ur Culture Indicated? No Urine Glucose Negative Ethyl Alcohol COVID-19 Source Nasal/Nares SARS-CoV-2 (PCR) Negative 12/26/20 12/26/20 12/26/20 14:05 13:35 13:35 WBC RBC Hgb Hct MCV MCH MCHC RDW Plt Count MPV Immature Gran % Neutrophils % Lymphocytes % Monocytes % Eosinophils % Basophils % Nucleated RBC % Absolute Neutrophils Absolute Lymphocytes Absolute Monocytes Absolute Eosinophils Absolute Basophils VBG Lactate 2.6 H* Sodium Potassium Chloride Carbon Dioxide Anion Gap BUN Creatinine Estimated GFR/1.73 m2 Glucose Calcium Magnesium 1.2 L Total Bilirubin AST ALT Alkaline Phosphatase Troponin I < 0.05 Total Protein Albumin Lipase Urine Color Urine Clarity Urine pH Ur Specific [place] Urine Protein Urine Ketones Urine Blood Urine Nitrite Urine Bilirubin Urine Urobilinogen Ur Leukocyte Esterase Urine RBC Urine WBC Ur Epithelial Cells Urine Crystals Urine Bacteria Urine Casts Urine Mucus Ur Culture Indicated? Urine Glucose Ethyl Alcohol COVID-19 Source SARS-CoV-2 (PCR) 12/26/20 12/26/20 12/26/20 13:35 13:35 13:35 WBC 11.66 H RBC 3.64 L Hgb 12.3 Hct 37.4 MCV 102.7 H MCH 33.8 H MCHC 32.9 RDW 14.4 Plt Count 212 MPV 10.3 Immature Gran % 0.4 Neutrophils % 82.3 Lymphocytes % 11.2 Monocytes % 5.7 Eosinophils % 0.1 Basophils % 0.3 Nucleated RBC % 0 Absolute Neutrophils 9.60 H Absolute Lymphocytes 1.31 Absolute Monocytes 0.66 Absolute Eosinophils 0.01 Absolute Basophils 0.03 VBG Lactate Sodium 138 Potassium 3.5 Chloride 101 Carbon Dioxide 21.1 Anion Gap 15.9 H BUN 15 Creatinine 1.5 H Estimated GFR/1.73 m2 35.54 Glucose 120 H Calcium 7.5 L Magnesium Total Bilirubin 0.8 AST 65 H ALT 60 H Alkaline Phosphatase 137 H Troponin I Total Protein 6.6 Albumin 3.2 L Lipase 110 Urine Color Urine Clarity Urine pH Ur Specific [place] Urine Protein Urine Ketones Urine Blood Urine Nitrite Urine Bilirubin Urine Urobilinogen Ur Leukocyte Esterase Urine RBC Urine WBC Ur Epithelial Cells Urine Crystals Urine Bacteria Urine Casts Urine Mucus Ur Culture Indicated? Urine Glucose Ethyl Alcohol < 3.0 COVID-19 Source SARS-CoV-2 (PCR) 12/26/20 15:18 Blood Blood Culture - Pending 12/26/20 14:05 Blood Blood Culture - Pending Preliminary micro results at discharge 12/26/20 15:18 Blood Culture - Pending Blood 12/26/20 14:05 Blood Culture - Pending Blood [facility] Medical History Alcohol abuse Ascites Bilateral leg pain Bilateral lower extremity edema Cachexia Chest pain Chronic vomiting COPD (chronic obstructive pulmonary disease) Diastolic dysfunction Folate deficiency anemia Frequent falls Gastroesophageal reflux disease Hair loss Hepatic fibrosis Hx pulmonary embolism Hypomagnesemia Malnutrition Pancreatitis Tobacco dependence syndrome Ulcer of lower extremity Unintentional weight loss Vitamin D deficiency Surgical History ENT/Nasal surgery (~2007) foot surgery (~2000) Ligation of fallopian tube (~1999) punch biopsy, skin of ankle, right lateral (11/24/16) negative for malignancy, sparse inflammation and reactive blood vessels Social History Smoking/Tobacco Use Status: Current every day Tobacco Type: cigarettes Smoking risk assessment performed?: Yes Alcohol Intake: current Alcohol Intake frequency: a few times a week Alcohol type: other Drug use: Occasionally Substance use type: marijuana Do you feel safe at home: Yes Do you feel safe in your relationship?: Yes History History Para 0 Hx # Term Pregnancies Multiple births Hx # Pregnancies Ectopic pregnancies AB induced Hx Number of Living Children AB spontaneous
[2020-12-27 11:58] LABS: HCT 31.9 % (36.0-46.0); HGB 10.4 g/dL (11.2-15.7)
[2020-12-29 10:36] LABS: Lyme Ab w Rflx to Lyme Confirm Negative (Negative)
--- NOTE | 2020-12-29 11:18 | CMPROGNOTE_ITS ---
Care Management Progress Note Nursing foreman or supervisor and operator coordinated transport for Fannie through [facility] upon discharge. CM sent prior authorization to [facility] to permit [facility] to pay for cost of transport. CM faxed prior auth to [facility], 12/29/20.
--- NOTE | 2020-12-29 11:18 | PDOC.CMPRO ---
Care Management Progress Note Nursing camp maintenance supervisor coordinated transport for Fannie through [facility] upon discharge. CM sent prior authorization to [facility] to permit [facility] to pay for cost of transport. CM faxed prior auth to [facility], 12/29/20.
[2020-12-30] LABS: Anaplasma phagocytophilum Negative (Negative); B. miyamotoi PCR Negative (Negative); Babesia divergens/MO-1 Negative (Negative); Babesia duncani Negative (Negative); Babesia microti Negative (Negative); Ehrlichia chaffeensis Negative (Negative); Ehrlichia ewingii/canis Negative (Negative); Ehrlichia muris eauclairensis Negative (Negative)
== END 2020-12-27 13:28 | disposition home or self-care (01) ==
LOC: ER 15:52 → MS 16:33
PROVIDERS: Internal Medicine; Admitting Provider Family Medicine; Emergency Provider Physician Assistant; PCP Nurse Practitioner Family; Visit Provider Family Medicine
DX: N17.9 Acute kidney failure, unspecified (principal); I95.9 Hypotension, unspecified; E86.0 Dehydration; E83.42 Hypomagnesemia; K52.9 Noninfective gastroenteritis and colitis, unspecified; F17.210 Nicotine dependence, cigarettes, uncomplicated; R91.1 Solitary pulmonary nodule; R18.8 Other ascites; J44.9 Chronic obstructive pulmonary disease, unspecified; K21.9 Gastro-esophageal reflux disease without esophagitis; E53.8 Deficiency of other specified B group vitamins; F10.10 Alcohol abuse, uncomplicated; R60.0 Localized edema; R07.89 Other chest pain; R29.6 Repeated falls; K74.00 Hepatic fibrosis, unspecified; Z86.711 Personal history of pulmonary embolism; E46 Unspecified protein-calorie malnutrition; Z68.1 Body mass index [BMI] 19.9 or less, adult; E55.9 Vitamin D deficiency, unspecified; Z20.822 Contact with and (suspected) exposure to COVID-19
CPT/HCPCS: 36415; 70496; 70498; 74177; 80053; 83690; 87040; 87635; 87798; 93005; 96361; 96365; 96375; 99285; 80320; 81003; 81015; 83605; 83735; 84484; 85014; 85018; 85025; 86618; 93010; 99217; 99219; G0378; J1885; J3490

== ENCOUNTER 2021-08-25 16:49 | Outpatient (REF) | payer BC, SELFPAY ==
[2021-08-25 19:20] LABS: HCT 31.5 % (36.0-46.0); MCH 35.3 pg (27.0-33.0); MCHC 34.9 % (32.0-36.0); MPV 10.1 fL (8.0-11.0); Platelet Count 233 10^3/uL (130-400); RBC 3.12 10^6/uL (3.93-5.22); RDW 11.9 % (11.7-14.6); RDW-SD 43.8 fL; WBC 5.82 10^3/uL (4.4-10.8)
[2021-08-25 19:45] LABS: ALT 27 U/L (14-59); AST 60 U/L (15-37); Albumin 3.6 g/dL (3.4-5.0); Alkaline Phosphatase 52 U/L (46-116); Anion Gap 9.8 mmol/L (3-11); BUN 18 mg/dL (7-18); Bilirubin, Total 0.3 mg/dL (0.2-1.0); CO2 24.2 mmol/L (21.0-32.0); CREATININE 0.6 mg/dL (0.55-1.02); Chloride 92 mmol/L (98-107); Folate 19.1 ng/mL (8.6-20.0); Glucose 72 mg/dL (74-106); Magnesium 1.4 mg/dL (1.8-2.4); Potassium 5.6 mmol/L (3.5-5.1); Sodium 126 mmol/L (136-145); Total Protein 6.9 g/dL (6.4-8.2)
[2021-08-26 05:38] LABS: Vitamin B12 484 pg/mL (193-986)
== END 2021-08-25 16:50 | disposition home or self-care (01) ==
LOC: NCHCN 16:49
PROVIDERS: PCP Nurse Practitioner Family; Visit Provider Nurse Practitioner Family
DX: E83.42 Hypomagnesemia (principal); D53.1 Other megaloblastic anemias, not elsewhere classified
CPT/HCPCS: 80053; 85027; 82607; 82746; 83735

== ENCOUNTER 2021-09-03 12:13 | Emergency (ER) | payer BC, SELFPAY ==
[2021-09-03 12:20] VITALS: BP 88/57; PULSE 93; RESP 16; TEMP 35.9; O2SAT 100
--- NOTE | 2021-09-03 12:42 | ED.GENADUL_ITS ---
Discharge Plan Disposition Patient Disposition: HOME Discharge Details Clinical Impression: Hypomagnesemia Primary Care Provider: Sara Patterson ED Provider: Rod Huber Home Meds and New Rx's Prescriptions: No Action magnesium oxide 400 mg (241.3 mg magnesium) tablet 400 mg PO DAILY Qty: 30 0RF atorvastatin 40 mg tablet 40 mg PO QHS Qty: 30 0RF aspirin 81 mg tablet,delayed release (DR/EC) 81 mg PO DAILY Qty: 30 0RF multivitamin [Multiple Vitamins] Tablet 1 tab PO DAILY Qty: 30 0RF Nicotrol 10 mg Cartridge 1 inh inhalation Q4H PRN PRN (Reason: nicotine cravings) Qty: 168 0RF thiamine mononitrate (vit B1) [Vitamin B-1 (mononitrate)] 100 mg Tablet 100 mg PO DAILY Qty: 30 0RF famotidine [Pepcid] 20 mg tablet 20 mg PO BID Qty: 60 0RF gabapentin 300 mg Capsule 300 mg PO TID 0RF lisinopril 20 mg tablet 20 mg PO DAILY 0RF Label Comments: TAKE 1 TABLET BY MOUTH DAILY Discharge Instructions Instructions: Hypomagnesemia (ED) Additional Instructions: Drink plenty of fluids. Please follow-up with your doctor. Please continue taking all your current medications Medical Decision Making The patient was found to have hypomagnesemia. This was repleted. Patient was given some IV fluids and felt better. She did not want to wait emergency department to give us a urine sample. She was instructed to follow-up with her PCP. HPI General Date/Time Provider Initiated Documentation: 09/03/21 12:42 . HPI Narrative: Patient is 57-year-old who presents to the emergency department with 2 days of generalized weakness. She states yesterday she felt like this her magnesium was low. She states that she has chronic shortness of breath secondary to her COPD/emphysema and that her she denies any other symptomatology. This weakness is graded as moderate in severity. Generalized. No radiation. Slow onset since yesterday. Pain constant. No relieving factors and no exacerbating factors. No associated factors she does not endorse any headaches. No neck pain. No chest pain. She does complain of mild increase in her GERD symptoms for the past week. No diarrhea no nausea no vomiting. No fevers no chills. No back pain. No dysuria. Related Data Home Medications Medication Instructions Recorded Confirmed famotidine 20 mg tablet (Pepcid) 20 mg PO BID #60 tab 08/13/20 09/03/21 gabapentin 300 mg capsule 300 mg PO TID 08/13/20 09/03/21 multivitamin (Multiple Vitamins) 1 tab PO DAILY #30 tab 08/13/20 09/03/21 nicotine 10 mg inhalation 1 inh INHALATION Q4H PRN PRN #168 08/13/20 09/03/21 cartridge (Nicotrol) ea thiamine mononitrate (vit B1) 100 100 mg PO DAILY #30 tab 08/13/20 09/03/21 mg tablet (Vitamin B-1 (mononitrate)) aspirin 81 mg tablet,delayed 81 mg PO DAILY #30 tab 12/27/20 09/03/21 release atorvastatin 40 mg tablet 40 mg PO QHS #30 tab 12/27/20 09/03/21 magnesium oxide 400 mg (241.3 mg 400 mg PO DAILY #30 tab 12/27/20 09/03/21 magnesium) tablet lisinopril 20 mg tablet 20 mg PO DAILY 09/03/21 09/03/21 Previous Rx's Medication Instructions Recorded famotidine 20 mg tablet (Pepcid) 20 mg PO BID #60 tab 08/13/20 multivitamin (Multiple Vitamins) 1 tab PO DAILY #30 tab 08/13/20 nicotine 10 mg inhalation 1 inh INHALATION Q4H PRN PRN #168 08/13/20 cartridge (Nicotrol) ea thiamine mononitrate (vit B1) 100 100 mg PO DAILY #30 tab 08/13/20 mg tablet (Vitamin B-1 (mononitrate)) aspirin 81 mg tablet,delayed 81 mg PO DAILY #30 tab 12/27/20 release atorvastatin 40 mg tablet 40 mg PO QHS #30 tab 12/27/20 magnesium oxide 400 mg (241.3 mg 400 mg PO DAILY #30 tab 12/27/20 magnesium) tablet Allergies Allergy/AdvReac Type Severity Reaction Status Date / Time bacitracin Allergy Mild localized Verified 09/03/21 12:25 [From Neosporin redness ([id number])] neomycin Allergy Mild localized Verified 09/03/21 12:25 [From Neosporin redness ([id number])] polymyxin B Allergy Mild localized Verified 09/03/21 12:25 [From Neosporin redness ([id number])] General Stated Complaint: GenMedical RAHEEM: 3 Review of Systems Narrative: Constitutional negative for fever and chills. Positive for fatigue. Negative for malaise. HEENT negative. No sore throat. No ear pain. No change in voice. Cardiovascular no chest pain. Respiratory chronic COPD . She has been compliant with her medications. Nausea vomiting diarrhea. symptoms. Normal output. MSK generalized weakness. Myalgias arthralgias. Skin no rash. Neuro no headaches. No focal weakness. No tremors. Abdominal pain weight loss. Hematological. She states that she is unable to move. Allergy negative Psych negative PFSH All Active Problems (Updated 09/03/21 @ 15:51 by Rod Huber MD) Emphysema lung (Acute) Nicotine dependence, cigarettes, uncomplicated (Acute) Atherosclerosis (Acute) Gastric wall thickening (Acute) Stenosis of right internal carotid artery (Acute) Mass of upper lobe of right lung (Acute) Alcohol abuse (Chronic) Dehydration (Acute) Diarrhea (Acute) Hypomagnesemia (Chronic) Discharge planning issues (Acute) DVT prophylaxis (Acute) B12 deficiency (Acute) Ascites (Acute) Chronic liver disease (Chronic) Weight loss, non-intentional (Acute) Alcoholism (Acute) Macrocytic anemia (Acute) Early satiety (Acute) Folate deficiency (Acute) Hypomagnesemia (Acute) Hypokalemia (Acute) Leg pain (Acute) Cellulitis (Acute) Bilateral leg ulcer (Acute) Medical History (Updated 09/03/21 @ 15:51 by Rod Huber MD) Alcohol abuse Ascites Bilateral leg pain Bilateral lower extremity edema Cachexia Chest pain Chronic vomiting COPD (chronic obstructive pulmonary disease) Diastolic dysfunction Folate deficiency anemia Frequent falls Gastroesophageal reflux disease Hair loss Hepatic fibrosis Hx pulmonary embolism Hypomagnesemia Malnutrition Pancreatitis Tobacco abuse Tobacco dependence syndrome Ulcer of lower extremity Unintentional weight loss Vitamin D deficiency Surgical History ENT/Nasal surgery (~2007) foot surgery (~2000) Ligation of fallopian tube (~1999) punch biopsy, skin of ankle, right lateral (11/24/16) negative for malignancy, sparse inflammation and reactive blood vessels Social History Smoking/Tobacco Use Status: Current every day Tobacco Type: cigarettes Smoking risk assessment performed?: Yes Alcohol Intake: current Alcohol Intake frequency: a few times a week Alcohol type: other Drug use: Occasionally Substance use type: marijuana Do you feel safe at home: Yes Do you feel safe in your relationship?: Yes History History Para 0 Hx # Term Pregnancies Multiple births Hx # Pregnancies Ectopic pregnancies AB induced Hx Number of Living Children AB spontaneous Exam Narrative Exam Narrative: Narrative Exam Narrative: General: Pleasant middle-aged female who is wearing a striking eye liner, A&Ox3, no acute distress HEENT: EOMI, MMM Heart: RRR, no m/r/g Lungs: CTAB Abdomen: soft, nontender, nondistended Extremities: no edema BLE's Psych Mental Status:?mental status grossly normal Speech and Movement:?speech and movement normal Mood:?congruent mood Affect:?normal affect Course Patient presents with generalized weakness. No focal findings on exam. Exam is normal. Blood work and urine will be obtained. Vital Signs Vital signs: Vital Signs Temperature 35.9 C L 09/03/21 12:20 Pulse 93 H 09/03/21 12:20 Respiratory Rate 16 09/03/21 12:20 Blood Pressure 88/57 L 09/03/21 12:20 Pulse Oximetry 100 09/03/21 12:20 Temperature 35.9 C L 09/03/21 12:20 Temperature Source Skin 09/03/21 12:20 Pulse 93 H 09/03/21 12:20 Respiratory Rate 16 09/03/21 12:20 Respiratory Effort 09/03/21 12:20 Blood Pressure 88/57 L 09/03/21 12:20 Blood Pressure Position Sitting 09/03/21 12:20 Pulse Oximetry 100 09/03/21 12:20 Oxygen Delivery Method Room Air 09/03/21 12:20 Oxygen Flow Rate 0 09/03/21 12:20 Pain Level 0 09/03/21 12:20
[2021-09-03] MEDS: Normal Saline 1,000 ML 1000 ML IV (12:53)
[2021-09-03 13:07] VITALS: RESP 18
[2021-09-03 13:20] LABS: Anion Gap 8.3 mmol/L (3-11); BUN 12 mg/dL (7-18); CO2 26.7 mmol/L (21.0-32.0); CREATININE 0.8 mg/dL (0.55-1.02); Calcium 9.8 mg/dL (8.5-10.1); Chloride 94 mmol/L (98-107); Glucose 106 mg/dL (74-106); Magnesium 1.4 mg/dL (1.8-2.4); Potassium 4.2 mmol/L (3.5-5.1); Sodium 129 mmol/L (136-145)
[2021-09-03] MEDS: MAGNESIUM SULFATE 1 GM/100 ML BAG IVPB (14:41)
--- NOTE | 2021-09-03 14:51 | NUR.NOTE ---
Pt reports unable to give urine sample right now but I can try in a little. Pt informed on need for urine sample and will call RN when able to provide one.
[2021-09-03 15:55] VITALS: BP 131/71; PULSE 71; RESP 18; O2SAT 97
== END 2021-09-03 15:55 | disposition home or self-care (01) ==
PROVIDERS: Emergency Provider Emergency Medicine; PCP Nurse Practitioner Family
DX: E83.42 Hypomagnesemia (principal)
CPT/HCPCS: 36415; 80048; 96361; 96365; 99284; 83735; 99283; J3475

== ENCOUNTER 2021-09-30 20:07 | Emergency (ER) | payer BC, SELFPAY ==
[2021-09-30] VITALS (43 sets, daily range): BP systolic 60–100; BP diastolic 38–64; PULSE 73–99; RESP 10–30; TEMP 36.5; O2SAT 92–100
--- NOTE | 2021-09-30 20:00 | RT.EKG_ITS ---
APPROVED REPORT Exam: Resting ECG Reason for Exam: chest pain Patient Location: E HR:97 bpm ECG Measurements Heart Rate 97 AXIS MT 149 P 77 QRSd 91 QRS 34 QT 362 T 42 QTc 460 Conclusion Sinus rhythm...normal P axis, V-rate 60- 99 Probable left atrial enlargement...P >50mS, <-0.10mV V1
[2021-09-30 20:35] LABS: Abs Immature Grans 0.02 10^3/uL (0.0-0.06); Absolute Basophil Count 0.07 10^3/uL (0.0-0.2); Absolute Eosinophil Count 0.01 10^3/uL (0.0-0.7); Absolute Lymphocyte Count 1.81 10^3/uL (1.2-3.4); Absolute Monocyte Count 1.04 10^3/uL (0.1-0.8); Absolute Neutrophil Count 5.34 10^3/uL (1.2-6.7); Basophils % 0.8; Eosinophils % 0.1; HCT 37.5 % (36.0-46.0); HGB 12.5 g/dL (11.2-15.7); Immature Grans % 0.2; Lymphocytes % 21.8; MCH 33.9 pg (27.0-33.0); MCHC 33.3 % (32.0-36.0); MCV 102 fL (80-95); Monocytes % 12.5; Neutrophils % 64.6; Platelet Count 237 10^3/uL (130-400); RBC 3.69 10^6/uL (3.93-5.22); RDW 11.9 % (11.7-14.6); RDW-SD 44.5 fL; WBC 8.29 10^3/uL (4.4-10.8)
[2021-09-30] MEDS: Lactated Ringers 500 ML 1000 ML IV (20:37)
--- NOTE | 2021-09-30 20:39 | ED.GENADUL_ITS ---
Discharge Plan Disposition Patient Disposition: HOME Condition: Serious Discharge Details Clinical Impression: Acute hypotension, Acute kidney injury, Acute dehydration Primary Care Provider: Sara Patterson ED Provider: Walter Griffiths Home Meds and New Rx's Prescriptions: No Action omeprazole 20 mg capsule,delayed release(DR/EC) 20 mg PO DAILY albuterol sulfate 90 mcg/actuation HFA aerosol inhaler 2 puff inhalation Q6H PRN Spiriva Respimat 2.5 mcg/actuation mist 2 puff inhalation DAILY Qty: 4 12RF magnesium oxide 400 mg (241.3 mg magnesium) tablet 400 mg PO DAILY Qty: 30 0RF atorvastatin 40 mg tablet 40 mg PO QHS Qty: 30 0RF aspirin 81 mg tablet,delayed release (DR/EC) 81 mg PO DAILY Qty: 30 0RF multivitamin [Multiple Vitamins] Tablet 1 tab PO DAILY Qty: 30 0RF thiamine mononitrate (vit B1) [Vitamin B-1 (mononitrate)] 100 mg Tablet 100 mg PO DAILY Qty: 30 0RF gabapentin 300 mg Capsule 300 mg PO TID lisinopril 20 mg tablet 20 mg PO DAILY Label Comments: TAKE 1 TABLET BY MOUTH DAILY Discharge Instructions Instructions: Dehydration (ED) Additional Instructions: Please drink plenty of fluids at home. I would recommend 10 to 12 cups a day of water or electrolyte solution. If you notice any worsening of your symptoms, or any new symptoms such as vomiting, diarrhea, fever, chills, shortness of breath, chest pain, numbness, weakness, or fainting , please return immediately to the emergency department for reevaluation. Please follow up with your primary care provider as soon as possible for reassessment and reevaluation. As always, it was a pleasure participating in your medical care today. Referrals: Sara Patterson [Primary Care Provider] - Discharge Data Discharge Date/Time-TO BE ENTERED AT DEPARTURE: 10/01/21 01:02 Medical Decision Making <Mahesh Ortega MD - Last Filed: 10/08/21 21:31> 2041??61-year-old female with multiple medical problems, prior episodes of lightheadedness with hypomagnesemia, here today with presyncope, found to be hypotensive. Cardiopulmonary exam otherwise unremarkable. Abdominal exam benign. Patient is currently mentating well despite her significant hypotension. IV fluids been initiated by EMS and I will continue with 1 L bolus. Plan to check chemistry to assess for electrolyte abnormalities. Screening EKG to assess for arrhythmia was reviewed and interpreted by me: Sinus rhythm 97 bpm, normal axis, somewhat peaked appearing T waves V3 to V6. 2243-- Labs reviewed and elevated creatinine of 2.1 noted with elevated BUN Patient has mild hypomagnesemia of 1.6. I suspect TAMRA is prerenal secondary to hypovolemia likely secondary to poor intake and chronic diarrhea. Patient has received total 1200 mL of crystalloid. She remains hypotensive, mentating well with no complaint. Plan to complete full 2 L bolus and reassess pressure. <Walter Griffiths, DO - Last Filed: 10/01/21 01:45> 2041??61-year-old female with multiple medical problems, prior episodes of lightheadedness with hypomagnesemia, here today with presyncope, found to be hypotensive. Cardiopulmonary exam otherwise unremarkable. Abdominal exam benign. Patient is currently mentating well despite her significant hypotension. IV fluids been initiated by EMS and I will continue with 1 L bolus. Plan to check chemistry to assess for electrolyte abnormalities. Screening EKG to assess for arrhythmia was reviewed and interpreted by me: Sinus rhythm 97 bpm, normal axis, somewhat peaked appearing T waves V3 to V6. 2243-- Labs reviewed and elevated creatinine of 2.1 noted with elevated BUN Patient has mild hypomagnesemia of 1.6. I suspect TAMRA is prerenal secondary to hypovolemia likely secondary to poor intake and chronic diarrhea. Patient has received total 1200 mL of crystalloid. She remains hypotensive, mentating well with no complaint. Plan to complete full 2 L bolus and reassess pressure. Dr. Griffiths's documentation Case is signed out to me by Dr. Mahesh Ortega. Please refer to his HPI, physical exam, assessment and plan. Plan was for reassessment after fluid bolus. Patient received 2 L of normal saline, and on reassessment she felt excellent. Blood pressure peaked to the low 100s. We did get the patient up, ambulated her around, and she had no syncope or weakness whatsoever. Bedside ultrasound was performed and demonstrated excellent filling with minimal collapse of the IVC. Bedside cardiac echo demonstrated good ejection fraction, with no evidence of pericardial tamponade. On reassessment patient feels well and would like to go home. I did further discuss the scenario with the patient, and she states that for my whole life I have been having these episodes of low blood pressure. She states that it is very normal for her to have the blood pressure below. She also states that she is sensitive whenever she gets dehydrated. I suspect that based on her current physical exam findings, her notable improvement of her symptomatology, and her recent history of the diarrhea, and diminished oral intake, that her supposition is certainly correct. With the resolution of her symptoms, and normal exam at this time, and notable improvement of her blood pressure after rehydration I do feel that the patient stable for discharge, especially in reflection on her history of having a lower blood pressure in general. Repeat basic metabolic panel demonstrates notably normalizing renal function, creatinine is now improved to 1.5. Discussed red flags which to return. Discussed the importance of holding blood pressure medications for the time being. I have extensively reviewed the treatment plan and discharge in structions with the patient. I have addressed all patient concerns at this time. The patient was made aware of what symptoms to monitor for that would warrant a return to the emergency department. Discussed the plan with the patient, they demonstrate verbal understanding and agreement with our assessment and plan at this time. The documentation in this chart was dictated using [employer] dictation software. Please excuse any dictation errors. Of note symptoms at this time are clinically inconsistent with massive PE, pericardial tamponade, aortic dissection, ruptured aortic aneurysm. HPI <Mahesh Ortega MD - Last Filed: 10/08/21 21:31> General Mode of arrival: ambulatory . Date/Time Provider Initiated Documentation: 09/30/21 20:24 . Limitations to Documentation: no limitations . Information obtained by: patient . HPI Narrative: 3-year-old female with multiple medical problems including history of COPD, hypertension in the past, hypomagnesemia in the past, chronic liver disease, alcoholism, hypertension and on JESSICA inhibitor, here with chief complaint of dizziness. Patient notes feeling woozy over the past 2 days. She states she feels like she is going to pass out. Symptoms are severe when she is ambulating and improved with lying down She has no associated chest pain or shortness of breath. No associate abdominal pain. Patient states she has had similar presentation when her magnesium was low in the past. She does note she is taking daily magnesium tablet. EMS was called and found the patient hypotensive. IV fluids initiated and she received 250 mL prior to arrival. Patient notes she has been taking her antihypertensive, lisinopril as prescribed daily AM. Last dose was this morning. Related Data Home Medications Medication Instructions Recorded Confirmed gabapentin 300 mg capsule 300 mg PO TID 08/13/20 09/30/21 multivitamin (Multiple Vitamins 1 tab PO DAILY #30 tabs 08/13/20 09/30/21 tablet) thiamine mononitrate (vit B1) 100 100 mg PO DAILY #30 tabs 08/13/20 09/30/21 mg tablet (Vitamin B-1 (mononitrate)) aspirin 81 mg tablet,delayed 81 mg PO DAILY #30 tabs 12/27/20 09/30/21 release atorvastatin 40 mg tablet 40 mg PO QHS #30 tabs 12/27/20 09/16/21 magnesium oxide 400 mg (241.3 mg 400 mg PO DAILY #30 tabs 12/27/20 09/30/21 magnesium) tablet lisinopril 20 mg tablet 20 mg PO DAILY 09/03/21 09/30/21 albuterol sulfate 90 mcg/actuation 2 puff inhalation Q6H PRN 09/16/21 09/30/21 aerosol inhaler omeprazole 20 mg capsule,delayed 20 mg PO DAILY 09/16/21 09/30/21 release tiotropium bromide 2.5 2 puff inhalation DAILY #4 grams 09/16/21 09/16/21 mcg/actuation mist for inhalation (Spiriva Respimat) Previous Rx's Medication Instructions Recorded multivitamin (Multiple Vitamins 1 tab PO DAILY #30 tabs 08/13/20 tablet) thiamine mononitrate (vit B1) 100 100 mg PO DAILY #30 tabs 08/13/20 mg tablet (Vitamin B-1 (mononitrate)) aspirin 81 mg tablet,delayed 81 mg PO DAILY #30 tabs 12/27/20 release atorvastatin 40 mg tablet 40 mg PO QHS #30 tabs 12/27/20 magnesium oxide 400 mg (241.3 mg 400 mg PO DAILY #30 tabs 12/27/20 magnesium) tablet tiotropium bromide 2.5 2 puff inhalation DAILY #4 grams 09/16/21 mcg/actuation mist for inhalation (Spiriva Respimat) Allergies Allergy/AdvReac Type Severity Reaction Status Date / Time bacitracin Allergy Mild localized Verified 09/30/21 20:19 [From Neosporin redness ([id number])] neomycin Allergy Mild localized Verified 09/30/21 20:19 [From Neosporin redness ([id number])] polymyxin B Allergy Mild localized Verified 09/30/21 20:19 [From Neosporin redness ([id number])] General Stated Complaint: Dizzy/Sync RAHEEM: 3 Review of Systems <Mahesh Ortega MD - Last Filed: 10/08/21 21:31> All systems reviewed & are unremarkable except as noted in HPI and below Constitutional Constitutional: Denies fever(s) Cardiovascular Cardiovascular: Reports as per HPI and Denies chest pain Gastrointestinal Gastrointestinal: Reports diarrhea (Chronic intermittent) PFSH <Mahesh Ortega MD - Last Filed: 10/08/21 21:31> All Active Problems (Updated 10/01/21 @ 01:45 by Walter Griffiths DO) Acute hypotension (Acute) Acute kidney injury (Acute) Acute dehydration (Acute) COPD (chronic obstructive pulmonary disease) (Chronic) Emphysema lung (Acute) Nicotine dependence, cigarettes, uncomplicated (Acute) Atherosclerosis (Acute) Gastric wall thickening (Acute) Stenosis of right internal carotid artery (Acute) Mass of upper lobe of right lung (Acute) Alcohol abuse (Chronic) Dehydration (Acute) Diarrhea (Acute) Hypomagnesemia (Chronic) Discharge planning issues (Acute) DVT prophylaxis (Acute) B12 deficiency (Acute) Ascites (Acute) Chronic liver disease (Chronic) Weight loss, non-intentional (Acute) Alcoholism (Acute) Macrocytic anemia (Acute) Early satiety (Acute) Folate deficiency (Acute) Hypomagnesemia (Acute) Hypokalemia (Acute) Leg pain (Acute) Cellulitis (Acute) Bilateral leg ulcer (Acute) Medical History Alcohol abuse Ascites Bilateral leg pain Bilateral lower extremity edema Cachexia Chest pain Chronic vomiting COPD (chronic obstructive pulmonary disease) Diastolic dysfunction Folate deficiency anemia Frequent falls Gastroesophageal reflux disease Hair loss Hepatic fibrosis Hx pulmonary embolism Hypomagnesemia Malnutrition Pancreatitis Tobacco abuse Tobacco dependence syndrome Ulcer of lower extremity Unintentional weight loss Vitamin D deficiency Surgical History ENT/Nasal surgery (~2007) foot surgery (~2000) Ligation of fallopian tube (~1999) punch biopsy, skin of ankle, right lateral (11/24/16) negative for malignancy, sparse inflammation and reactive blood vessels Family History Father Lung disease Social History Smoking/Tobacco Use Status: Current every day Tobacco Type: cigarettes Tobacco: How many years used: 45 Quit status: considering quitting Second Hand Exposure: Yes Smoking risk assessment performed?: Yes Alcohol Intake: current Alcohol Intake frequency: a few times a week Alcohol type: wine Drug use: Occasionally Substance use type: marijuana Do you feel safe at home: Yes Do you feel safe in your relationship?: Yes History History Para 0 Hx # Term Pregnancies Multiple births Hx # Pregnancies Ectopic pregnancies AB induced Hx Number of Living Children AB spontaneous Exam <Mahesh Ortega MD - Last Filed: 10/08/21 21:31> Const General: cooperative and no acute distress Nutritional Appearance: thin Orientation: alert and awake HENMT Head: normocephalic and atraumatic Eyes Conjunctivae: normal conjunctivae Sclera: normal sclerae Neck Neck: trachea midline and supple Resp Auscultation: clear to auscultation bilaterally, no rales, no rhonchi and no wheezes Cardio Rate: regular rate and not tachycardic Rhythm: regular rhythm Heart Sounds: murmur (2/6) GI Palpation: soft, not firm, no guarding, no masses, not rigid and nontender Skin General skin exam: no rashes or lesions noted Neuro General: patient alert, patient awake, patient oriented x3 and tone normal Extrem General: no edema Psych Appearance: grossly normal Mental Status: mental status grossly normal Speech and Movement: speech and movement normal Course <Mahesh Ortega MD - Last Filed: 10/08/21 21:31> Vital Signs Vital signs: Vital Signs Temperature 36.5 C 09/30/21 20:08 Pulse 99 H 09/30/21 20:08 Respiratory Rate 18 09/30/21 20:08 Blood Pressure 71/47 L 09/30/21 20:08 Pulse Oximetry 100 09/30/21 20:08 Temperature 36.5 C 09/30/21 20:08 Temperature Source Skin 09/30/21 20:08 Pulse 91 H 09/30/21 20:35 Pulse 96 H 09/30/21 20:36 Respiratory Rate 15 09/30/21 20:36 Respiratory Effort 09/30/21 20:16 Respiratory Depth Normal 09/30/21 20:16 Respiratory Pattern Normal 09/30/21 20:16 Blood Pressure 63/47 L 09/30/21 20:35 Blood Pressure Mean 50 09/30/21 20:35 Blood Pressure Position Supine 09/30/21 20:08 Pulse Oximetry 100 09/30/21 20:36 Oxygen Delivery Method Room Air 09/30/21 20:08 Oxygen Flow Rate 0 09/30/21 20:08 Pain Level 0 09/30/21 20:08 Lab/Test Results Lab/Test Results: Laboratory Tests Range/Units 09/30/21 20:28 WBC (4.4-10.8) 10^3/uL 8.29 RBC (3.93-5.22) 10^6/uL 3.69 L Hgb (11.2-15.7) g/dL 12.5 Hct (36.0-46.0) % 37.5 MCV (80-95) fL 102 H MCH (27.0-33.0) pg 33.9 H MCHC (32.0-36.0) % 33.3 RDW (11.7-14.6) % 11.9 Plt Count (130-400) 10^3/uL 237 MPV (8.0-11.0) fL 10.0 Immature Gran % 0.2 Neutrophils % 64.6 Lymphocytes % 21.8 Monocytes % 12.5 Eosinophils % 0.1 Basophils % 0.8 Nucleated RBC % (0.0-0.3) % 0.0 Absolute Neutrophils (1.2-6.7) 10^3/uL 5.34 Absolute Lymphocytes (1.2-3.4) 10^3/uL 1.81 Absolute Monocytes (0.1-0.8) 10^3/uL 1.04 H Absolute Eosinophils (0.0-0.7) 10^3/uL 0.01 Absolute Basophils (0.0-0.2) 10^3/uL 0.07 Sign Out <Mhaesh Ortega MD - Last Filed: 10/08/21 21:31> Sign Out Data: Sign Out Comment: reassess BP and Cr after IVF Last updated by Mahesh Ortega MD at 09/30/21 23:17
[2021-09-30 20:49] LABS: ALT 24 U/L (14-59); AST 48 U/L (15-37); Albumin 3.6 g/dL (3.4-5.0); Alkaline Phosphatase 76 U/L (46-116); Anion Gap 10.1 mmol/L (3-11); BUN 21 mg/dL (7-18); Bilirubin, Total 0.5 mg/dL (0.2-1.0); CO2 25.9 mmol/L (21.0-32.0); CREATININE 2.1 mg/dL (0.55-1.02); Chloride 99 mmol/L (98-107); Estimated GFR 24.02 (mL/min/1.73m2); Glucose 133 mg/dL (74-106); Magnesium 1.6 mg/dL (1.8-2.4); Potassium 3.9 mmol/L (3.5-5.1); Sodium 135 mmol/L (136-145); Total Protein 7.5 g/dL (6.4-8.2); Troponin I < 50 ng/L (<or=60)
[2021-09-30] MEDS: MAGNESIUM SULFATE 1 GM/100 ML BAG IVPB (21:32)
[2021-09-30] MEDS: Lactated Ringers 1,000 ML 1000 ML IV (22:34)
[2021-09-30 23:56] LABS: Anion Gap 8.1 mmol/L (3-11); BUN 21 mg/dL (7-18); CO2 25.9 mmol/L (21.0-32.0); CREATININE 1.5 mg/dL (0.55-1.02); Calcium 8.5 mg/dL (8.5-10.1); Chloride 99 mmol/L (98-107); Estimated GFR 35.42 (mL/min/1.73m2); Glucose 99 mg/dL (74-106); Potassium 3.4 mmol/L (3.5-5.1); Sodium 133 mmol/L (136-145)
[2021-10-01] VITALS (13 sets, daily range): BP systolic 73–110; BP diastolic 13–74; PULSE 76–89; RESP 12–30; O2SAT 97–100
== END 2021-10-01 01:02 | disposition home or self-care (01) ==
PROVIDERS: Student in an Organized Health Care Education/Training Program; Emergency Provider Student in an Organized Health Care Education/Training Program; PCP Nurse Practitioner Family
DX: I95.9 Hypotension, unspecified (principal); N17.9 Acute kidney failure, unspecified; E86.0 Dehydration; E83.42 Hypomagnesemia; R07.9 Chest pain, unspecified
CPT/HCPCS: 80048; 80053; 93005; 96361; 96365; 99284; 83735; 84484; 85025; 93010; J3475

== ENCOUNTER 2021-10-20 13:17 | Emergency (ER) | payer BC, SELFPAY ==
[2021-10-20] VITALS (18 sets, daily range): BP systolic 148–152; BP diastolic 82–98; PULSE 70–100; RESP 10–24; TEMP 36.5–37; O2SAT 98–99
--- NOTE | 2021-10-20 13:45 | ED.GENADUL_ITS ---
Discharge Plan Disposition Patient Disposition: HOME Condition: Improving Discharge Details Clinical Impression: Hypokalemia, Hypomagnesemia Primary Care Provider: Sara Patterson ED Provider: Nishi Barber Home Meds and New Rx's Prescriptions: Continued omeprazole 20 mg capsule,delayed release(DR/EC) 20 mg PO DAILY albuterol sulfate 90 mcg/actuation HFA aerosol inhaler 2 puff inhalation Q6H PRN Spiriva Respimat 2.5 mcg/actuation mist 2 puff inhalation DAILY Qty: 4 12RF magnesium oxide 400 mg (241.3 mg magnesium) tablet 400 mg PO DAILY Qty: 30 0RF aspirin 81 mg tablet,delayed release (DR/EC) 81 mg PO DAILY Qty: 30 0RF multivitamin [Multiple Vitamins] Tablet 1 tab PO DAILY Qty: 30 0RF thiamine mononitrate (vit B1) [Vitamin B-1 (mononitrate)] 100 mg Tablet 100 mg PO DAILY Qty: 30 0RF gabapentin 300 mg Capsule 300 mg PO TID Discharge Instructions Instructions: Hypokalemia (ED), Hypomagnesemia (ED) Additional Instructions: Your lab work today revealed that you have low potassium and low magnesium. You were given potassium and magnesium supplementation in the emergency department. You can supplement potassium and magnesium in her diet with foods such as spinach, kale, or tomatoes, garlic, banana, etc. Follow-up with your scheduled appointment with your primary care doctor tomorrow for reevaluation and for urinalysis testing as you are unable to give a urine sa mple today. Drink plenty of fluids and get plenty of rest. Alternate tylenol and motrin as needed and directed for pain. Return immediately to the emergency department if you develop any worsening or new concerning symptoms. Discharge Data Discharge Physician: Nishi Barber Medical Decision Making 1330 -- 61-year-old female with a history of alcohol abuse, COPD, tobacco dependence, ascites, cachexia, pancreatitis, malnutrition presents for concern for dehydration and hypotension. Also endorses a bruise to her left upper arm with unknown injury and neck pain with head movement. Heart rate low 100. Blood pressure 152/98. Patient appears comfortable and nontoxic. I have seen patient before and she is cachectic at baseline. Lungs clear bilaterally. Bruise to her left arm is healing and there is no bony deformity and suspected fracture, hematoma or cellulitis. No focal deficits. Differential diagnosis includes dehydration, electrolyte abnormality, pneumonia, UTI. History and presentation does not appear consistent with PE, CVA, meningitis. Will obtain screening labs, urinalysis, x-ray and give fluids and toradol. 1410 --labs and imaging reviewed. Potassium 2.8. Magnesium 1.1. Will replete. Troponin negative. Lipase within normal limits. Chest x-ray negative for acute findings. 1730 --repeat potassium now down trended to 2.7 after oral and IV supplementat ion. Will give additional oral potassium. Magnesium slightly up trended to 1.2. Patient assessed at bedside and she states she feels much better and like to go home. She states her neck pain is improved. Discussed with patient that we could observe her a little while longer and recheck her potassium and magnesium but she declined stating she feels much better and would rather go home and supplement potassium and magnesium in her diet. She was also unable to give a urine sample. She has a follow-up appointment with her primary care doctor tomorrow for her neck pain and states she will provide a urine sample at that time. Usual and customary return precautions given prior to discharge. Medical Records Medical records reviewed: Yes I reviewed the patient's medical records. Imaging Data Radiologic Study: Radiologist's impression: ?XR CHEST 2V PA ? LATERAL CLINICAL HISTORY:? heartburn, r/o acute disease TECHNIQUE:? 2D digital imaging was performed. COMPARISON:? CR XR CHEST 2V PA ? LATERAL from 08/12/[address] THORAX ? ABD/PEL CTA from 12/26/2020 FINDINGS: MEDIASTINUM: Normal.? HEART: Normal. PULMONARY VASCULATURE: Normal. LUNGS: Emphysematous changes and scarring in the upper lobes, stable.? Mildly increased interstitial changes. ? PLEURAL SPACE: No pleural effusion or pneumothorax. BONE:Scoliosis and degenerative changes.? No compression fractures.? IMPRESSION: No acute abnormality.? Lab Data Lab results reviewed: Yes I reviewed the patient's lab results. Labs: Laboratory Tests Range/Units 10/20/21 10/20/21 10/20/21 13:44 13:45 13:45 WBC (4.4-10.8) 10^3/uL 7.10 RBC (3.93-5.22) 10^6/uL 3.54 L Hgb (11.2-15.7) g/dL 11.9 Hct (36.0-46.0) % 35.2 L MCV (80-95) fL 99 H MCH (27.0-33.0) pg 33.6 H MCHC (32.0-36.0) % 33.8 RDW (11.7-14.6) % 12.5 Plt Count (130-400) 10^3/uL 246 MPV (8.0-11.0) fL 10.4 Immature Gran % 0.3 Neutrophils % 62.1 Lymphocytes % 28.2 Monocytes % 7.7 Eosinophils % 0.7 Basophils % 1.0 Nucleated RBC % (0.0-0.3) % 0.0 Absolute Neutrophils (1.2-6.7) 10^3/uL 4.41 Absolute Lymphocytes (1.2-3.4) 10^3/uL 2.00 Absolute Monocytes (0.1-0.8) 10^3/uL 0.55 Absolute Eosinophils (0.0-0.7) 10^3/uL 0.05 Absolute Basophils (0.0-0.2) 10^3/uL 0.07 PT (9.3-11.0) sec 10.6 INR (0.9-1.1) 1.1 APTT (21.0-27.5) sec 24.3 Sodium (136-145) mmol/L 133 L Potassium (3.5-5.1) mmol/L 2.8 L* Chloride (98-107) mmol/L 94 L Carbon Dioxide (21.0-32.0) mmol/L 30.1 Anion Gap (3-11) mmol/L 8.9 BUN (7-18) mg/dL 5 L Creatinine (0.55-1.02) mg/dL 0.7 Estimated GFR/1.73 m2 (mL/min/1.73m2) >= 60.00 Glucose (74-106) mg/dL 87 Calcium (8.5-10.1) mg/dL 8.9 Magnesium (1.8-2.4) mg/dL 1.1 L Total Bilirubin (0.2-1.0) mg/dL 0.6 AST (15-37) U/L 75 H ALT (14-59) U/L 42 Alkaline Phosphatase (46-116) U/L 84 Troponin I (<or=60) ng/L < 50 Total Protein (6.4-8.2) g/dL 7.2 Albumin (3.4-5.0) g/dL 3.5 Lipase (73-393) U/L Range/Units 10/20/21 10/20/21 10/20/21 13:45 13:45 16:50 WBC (4.4-10.8) 10^3/uL RBC (3.93-5.22) 10^6/uL Hgb (11.2-15.7) g/dL Hct (36.0-46.0) % MCV (80-95) fL MCH (27.0-33.0) pg MCHC (32.0-36.0) % RDW (11.7-14.6) % Plt Count (130-400) 10^3/uL MPV (8.0-11.0) fL Immature Gran % Neutrophils % Lymphocytes % Monocytes % Eosinophils % Basophils % Nucleated RBC % (0.0-0.3) % Absolute Neutrophils (1.2-6.7) 10^3/uL Absolute Lymphocytes (1.2-3.4) 10^3/uL Absolute Monocytes (0.1-0.8) 10^3/uL Absolute Eosinophils (0.0-0.7) 10^3/uL Absolute Basophils (0.0-0.2) 10^3/uL PT (9.3-11.0) sec INR (0.9-1.1) APTT (21.0-27.5) sec Sodium (136-145) mmol/L 132 L Potassium (3.5-5.1) mmol/L 2.7 L* Chloride (98-107) mmol/L 96 L Carbon Dioxide (21.0-32.0) mmol/L 27.3 Anion Gap (3-11) mmol/L 8.7 BUN (7-18) mg/dL 6 L Creatinine (0.55-1.02) mg/dL 0.7 Estimated GFR/1.73 m2 (mL/min/1.73m2) >= 60.00 Glucose (74-106) mg/dL 95 Calcium (8.5-10.1) mg/dL 8.1 L Magnesium (1.8-2.4) mg/dL 1.2 L Total Bilirubin (0.2-1.0) mg/dL 0.5 AST (15-37) U/L 64 H ALT (14-59) U/L 34 Alkaline Phosphatase (46-116) U/L 75 Troponin I (<or=60) ng/L Total Protein (6.4-8.2) g/dL 6.6 Albumin (3.4-5.0) g/dL 3.1 L Lipase (73-393) U/L 56 ECG Data Attestation: I personally reviewed and interpreted this ECG (s) as follows: Interpretation: rate of 83, sinus, normal axis, peaked T waves in anterolateral leads, seen in previous EKG, no STEMI. HPI General Mode of arrival: ambulatory . Date/Time Provider Initiated Documentation: 10/20/21 13:23 . Limitations to Documentation: no limitations . Information obtained by: patient . HPI Narrative: Patient is a 61-year-old female with a history of alcohol abuse ascites, COPD, pancreatitis presents with concern for dehydration and hypotension. Pt states she has a h/o chronic dehydration and hypotension which causes dizziness and fatigue since she was a young girl. She states since yesterday she has been more fatigued and sleeping more than usual. She states the dizziness feels like lightheadedness and denies any spinning sensation. She also states she has a chronic cough and shortness of breath associated with her COPD. She states she has chronic intermittent diarrhea. She also endorses right-sided neck pain that is worse with head movement. She denies any known injury. She states the pain is improved with neck flexion and worse with extension and rotation. She denies any pain or paresthesias in her bilateral upper extremities. She states for the past 6 weeks she has had heartburn which she has attributed to indigestion for which she has been taking omeprazole. She denies any fever, headache, blurry vision, chest pain, abdominal pain or urinary symptoms or vomiting. She also endorses a bruise to her left upper arm but is unsure of any injury. She denies any pain in this area or blood thinners. Related Data Home Medications Medication Instructions Recorded Confirmed gabapentin 300 mg capsule 300 mg PO TID 08/13/20 10/20/21 multivitamin (Multiple Vitamins 1 tab PO DAILY #30 tabs 08/13/20 10/20/21 tablet) thiamine mononitrate (vit B1) 100 100 mg PO DAILY #30 tabs 08/13/20 10/20/21 mg tablet (Vitamin B-1 (mononitrate)) aspirin 81 mg tablet,delayed 81 mg PO DAILY #30 tabs 12/27/20 10/20/21 release magnesium oxide 400 mg (241.3 mg 400 mg PO DAILY #30 tabs 12/27/20 10/20/21 magnesium) tablet albuterol sulfate 90 mcg/actuation 2 puff inhalation Q6H PRN 09/16/21 10/20/21 aerosol inhaler omeprazole 20 mg capsule,delayed 20 mg PO DAILY 09/16/21 10/20/21 release tiotropium bromide 2.5 2 puff inhalation DAILY #4 grams 09/16/21 10/20/21 mcg/actuation mist for inhalation (Spiriva Respimat) Previous Rx's Medication Instructions Recorded multivitamin (Multiple Vitamins 1 tab PO DAILY #30 tabs 08/13/20 tablet) thiamine mononitrate (vit B1) 100 100 mg PO DAILY #30 tabs 08/13/20 mg tablet (Vitamin B-1 (mononitrate)) aspirin 81 mg tablet,delayed 81 mg PO DAILY #30 tabs 12/27/20 release magnesium oxide 400 mg (241.3 mg 400 mg PO DAILY #30 tabs 12/27/20 magnesium) tablet tiotropium bromide 2.5 2 puff inhalation DAILY #4 grams 09/16/21 mcg/actuation mist for inhalation (Spiriva Respimat) Allergies Allergy/AdvReac Type Severity Reaction Status Date / Time bacitracin Allergy Mild localized Verified 10/20/21 13:22 [From Neosporin redness ([id number])] neomycin Allergy Mild localized Verified 10/20/21 13:22 [From Neosporin redness ([id number])] polymyxin B Allergy Mild localized Verified 10/20/21 13:22 [From Neosporin redness ([id number])] General Stated Complaint: GenMedical RAHEEM: 4 Review of Systems All systems reviewed & are unremarkable except as noted in HPI and below Constitutional Constitutional: Denies chills, Denies excessive sweating, Denies fatigue, Denies fever(s), Reports weakness and Denies weight loss Eyes Eyes: Reports system reviewed and no additional complaints, except as documented and Denies blurry vision ENT Ears, Nose, Mouth, and Throat: Denies vertigo, Reports dizziness, Denies otalgia, Denies nasal congestion, Denies sore throat and Denies throat swelling Cardiovascular Cardiovascular: Denies chest pain, Denies syncope, Denies rapid heart rate and Denies dyspnea Respiratory Respiratory: Denies chest congestion, Denies cough, Denies pain on inspiration and Denies dyspnea Gastrointestinal Gastrointestinal: Denies abdominal pain, Denies diarrhea and Denies vomiting Genitourinary Genitourinary: Denies hematuria, Denies dysuria and Denies flank pain Musculoskeletal Musculoskeletal: Denies back pain and Denies joint swelling Integumentary/Breasts Skin/Breast: Denies lesions and Denies rash Neurologic Neurologic: Denies behavioral changes, Denies confusion, Denies vertigo, Reports dizziness, Denies syncope, Denies localized weakness and Reports weakness Psychiatric Psychiatric: Denies behavioral changes, Denies confusion and Denies depression Endocrine Endocrine: Denies excessive sweating and Denies fatigue Hematologic/Lymphatic Hematologic/Lymphatic: Denies easy bruising and Denies lymphadenopathy Allergic/Immunologic Allergic/Immunologic: Denies throat swelling PFSH All Active Problems (Updated 10/20/21 @ 18:11 by Nishi Barber DO) Acute hypotension (Acute) Acute kidney injury (Acute) Acute dehydration (Acute) Hypokalemia (Acute) Hypomagnesemia (Acute) COPD (chronic obstructive pulmonary disease) (Chronic) Emphysema lung (Acute) Nicotine dependence, cigarettes, uncomplicated (Acute) Atherosclerosis (Acute) Gastric wall thickening (Acute) Stenosis of right internal carotid artery (Acute) Mass of upper lobe of right lung (Acute) Alcohol abuse (Chronic) Dehydration (Acute) Diarrhea (Acute) Hypomagnesemia (Chronic) Discharge planning issues (Acute) DVT prophylaxis (Acute) B12 deficiency (Acute) Ascites (Acute) Chronic liver disease (Chronic) Weight loss, non-intentional (Acute) Alcoholism (Acute) Macrocytic anemia (Acute) Early satiety (Acute) Folate deficiency (Acute) Hypomagnesemia (Acute) Hypokalemia (Acute) Leg pain (Acute) Cellulitis (Acute) Bilateral leg ulcer (Acute) Medical History Alcohol abuse Ascites Bilateral leg pain Bilateral lower extremity edema Cachexia Chest pain Chronic vomiting COPD (chronic obstructive pulmonary disease) Diastolic dysfunction Folate deficiency anemia Frequent falls Gastroesophageal reflux disease Hair loss Hepatic fibrosis Hx pulmonary embolism Hypomagnesemia Malnutrition Pancreatitis Tobacco abuse Tobacco dependence syndrome Ulcer of lower extremity Unintentional weight loss Vitamin D deficiency Surgical History ENT/Nasal surgery (~2007) foot surgery (~2000) Ligation of fallopian tube (~1999) punch biopsy, skin of ankle, right lateral (11/24/16) negative for malignancy, sparse inflammation and reactive blood vessels Family History Father Lung disease Social History Smoking/Tobacco Use Status: Current every day Tobacco Type: cigarettes Tobacco: How many years used: 45 Quit status: considering quitting Second Hand Exposure: Yes Smoking risk assessment performed?: Yes Alcohol Intake: current Alcohol Intake frequency: a few times a week Alcohol type: wine Drug use: Occasionally Substance use type: marijuana Current gender identity: female Do you feel safe at home: Yes Do you feel safe in your relationship?: Yes History History Para 0 Hx # Term Pregnancies Multiple births Hx # Pregnancies Ectopic pregnancies AB induced Hx Number of Living Children AB spontaneous Exam Const General: cooperative and healthy appearing Nutritional Appearance: cachectic (at baseline) Orientation: alert, awake and oriented x3 HENMT Head: normal to inspection Ears: hearing grossly normal bilaterally, external ears normal and TM's normal bilaterally General nose exam: external nose normal Face and sinus: normal facial exam Mouth: oral mucosae normal Teeth and gingiva: dentition normal Throat: posterior oropharynx normal Eyes General: appearance normal, both eyes and all related structures Eyelids: eyelids normal Pupils: PERRL EOM: EOM intact bilaterally Neck Neck: normal visual inspection Lymphatic: no lymphadenopathy noted Chest Chest: normal inspection of the chest Resp Effort & Inspection: normal respiratory effort and able to speak in complete sentences Auscultation: clear to auscultation bilaterally Cardio Rate: regular rate Rhythm: regular rhythm GI Inspection: normal to inspection Palpation: soft, not firm, no guarding, no hepatosplenomegaly, no masses and nontender Auscultation: normal bowel sounds Back/Spine/Pelvis Back: no CVA tenderness Skin General skin exam: no rashes or lesions noted Neuro General: patient alert, patient awake, patient oriented x3, gait normal, moves all extremities and no meningeal signs Cranial Nerves: CN's II-XI intact bilaterally Cognition: normal cognition Speech: speech normal Gait: normal gait Motor: muscle tone normal throughout and strength 5/5 throughout Sensory Exam: no sensory deficits noted Extrem General: full ROM and capillary refill normal Shoulder/upper arm images: 1. 4 x 4 centimeter area of ecchymosis in various stages of healing. Area nontender. No hematoma or abscess noted. No bony deformity. Full range of motion without pain. Other: B/L distal upper extremity pulses intact. Psych Appearance: grossly normal Mental Status: mental status grossly normal Speech and Movement: speech and movement normal Affect: normal affect Thought Process: normal Course Vital Signs Vital signs: Vital Signs Temperature 97.7 F 10/20/21 13:18 Pulse 100 H 10/20/21 13:18 Respiratory Rate 16 10/20/21 13:18 Blood Pressure 152/98 H 10/20/21 13:18 Pulse Oximetry 98 10/20/21 13:18 Temperature 97.7 F 10/20/21 13:18 Temperature Source Temporal Artery Scan 10/20/21 13:18 Pulse 100 H 10/20/21 13:18 Respiratory Rate 16 10/20/21 13:18 Respiratory Effort 10/20/21 13:24 Blood Pressure 152/98 H 10/20/21 13:18 Blood Pressure Position Sitting 10/20/21 13:18 Pulse Oximetry 98 10/20/21 13:18 Oxygen Delivery Method Room Air 10/20/21 13:18 Oxygen Flow Rate 0 10/20/21 13:18 Pain Level 9 10/20/21 13:18
[2021-10-20 13:50] LABS: Abs Immature Grans 0.02 10^3/uL (0.0-0.06); Absolute Basophil Count 0.07 10^3/uL (0.0-0.2); Absolute Eosinophil Count 0.05 10^3/uL (0.0-0.7); Absolute Monocyte Count 0.55 10^3/uL (0.1-0.8); Absolute Neutrophil Count 4.41 10^3/uL (1.2-6.7); Eosinophils % 0.7; HCT 35.2 % (36.0-46.0); HGB 11.9 g/dL (11.2-15.7); Immature Grans % 0.3; Lymphocytes % 28.2; MCH 33.6 pg (27.0-33.0); MCHC 33.8 % (32.0-36.0); MCV 99 fL (80-95); MPV 10.4 fL (8.0-11.0); Monocytes % 7.7; Neutrophils % 62.1; Platelet Count 246 10^3/uL (130-400); RBC 3.54 10^6/uL (3.93-5.22); RDW 12.5 % (11.7-14.6); RDW-SD 45.1 fL
--- NOTE | 2021-10-20 14:00 | DI.RAD_ITS ---
Exam(s) XR CHEST 2V PA LATERAL EXAM: XR CHEST 2V PA LATERAL CLINICAL HISTORY: heartburn, r/o acute disease TECHNIQUE: 2D digital imaging was performed. COMPARISON: CR XR CHEST 2V PA LATERAL from 08/12/[address] THORAX ABD/PEL CTA from 12/26/2020 FINDINGS: MEDIASTINUM: Normal. HEART: Normal. PULMONARY VASCULATURE: Normal. LUNGS: Emphysematous changes and scarring in the upper lobes, stable. Mildly increased interstitial changes. PLEURAL SPACE: No pleural effusion or pneumothorax. BONE:Scoliosis and degenerative changes. No compression fractures. IMPRESSION: No acute abnormality. DATA REPOSITORY: RADIATION DOSE DELIVERED:
[2021-10-20 14:09] LABS: ALT 42 U/L (14-59); AST 75 U/L (15-37); Albumin 3.5 g/dL (3.4-5.0); Alkaline Phosphatase 84 U/L (46-116); Anion Gap 8.9 mmol/L (3-11); BUN 5 mg/dL (7-18); Bilirubin, Total 0.6 mg/dL (0.2-1.0); CO2 30.1 mmol/L (21.0-32.0); CREATININE 0.7 mg/dL (0.55-1.02); Calcium 8.9 mg/dL (8.5-10.1); Chloride 94 mmol/L (98-107); Glucose 87 mg/dL (74-106); Magnesium 1.1 mg/dL (1.8-2.4); Sodium 133 mmol/L (136-145); Total Protein 7.2 g/dL (6.4-8.2); Troponin I < 50 ng/L (<or=60)
[2021-10-20 14:15] LABS: Potassium 2.8 mmol/L (3.5-5.1)
--- NOTE | 2021-10-20 14:15 | RT.EKG_ITS ---
APPROVED REPORT Exam: Resting ECG Reason for Exam: dizziness Patient Location: E HR:83 bpm ECG Measurements Heart Rate 83 AXIS TX 139 P 69 QRSd 99 QRS 42 QT 425 T 51 QTc 495 Conclusion Sinus rhythm...normal P axis, V-rate 60- 99 Atrial premature complexes...SV complexes w/ short R-R intvls Probable left atrial enlargement...P >50mS, <-0.10mV V1. Sinus. Normal axis. Peaked T wavcs in anterolateral leads, seen in previous EKG. I have reviewed and interpreted ECG and agree with software generated interpretation. No STEMI.
[2021-10-20 14:25] LABS: Lipase 56 U/L (73-393)
[2021-10-20] MEDS: POTASSIUM CHLORIDE 20 MEQ/100 ML BAG 50 MEQ IVPB (14:36)
[2021-10-20] MEDS: MAGNESIUM SULFATE 2 GM/50 ML BAG IVPB (14:37)
[2021-10-20] MEDS: Normal Saline 1,000 ML 1000 ML IV (14:37)
[2021-10-20] MEDS: Ketorolac 30 MG/ML VIAL IVP (14:38)
[2021-10-20] MEDS: Potassium Chloride 20 MEQ TABCR 40 MEQ PO ×2 (14:47→18:11)
[2021-10-20 15:09] LABS: INR 1.1 (0.9-1.1); PTT Activated 24.3 sec (21.0-27.5); Prothrombin Time 10.6 sec (9.3-11.0)
[2021-10-20 17:29] LABS: ALT 34 U/L (14-59); AST 64 U/L (15-37); Albumin 3.1 g/dL (3.4-5.0); Alkaline Phosphatase 75 U/L (46-116); Anion Gap 8.7 mmol/L (3-11); BUN 6 mg/dL (7-18); Bilirubin, Total 0.5 mg/dL (0.2-1.0); CO2 27.3 mmol/L (21.0-32.0); CREATININE 0.7 mg/dL (0.55-1.02); Calcium 8.1 mg/dL (8.5-10.1); Chloride 96 mmol/L (98-107); Glucose 95 mg/dL (74-106); Sodium 132 mmol/L (136-145); Total Protein 6.6 g/dL (6.4-8.2)
[2021-10-20 17:40] LABS: Potassium 2.7 mmol/L (3.5-5.1)
[2021-10-20 17:55] LABS: Magnesium 1.2 mg/dL (1.8-2.4)
== END 2021-10-20 18:27 | disposition home or self-care (01) ==
PROVIDERS: Emergency Provider Physician Assistant; PCP Nurse Practitioner Family
DX: E87.6 Hypokalemia (principal); E83.42 Hypomagnesemia; M54.2 Cervicalgia; R42 Dizziness and giddiness; R12 Heartburn
CPT/HCPCS: 36415; 80053; 83690; 93005; 96361; 96365; 96366; 96368; 96375; 99284; 71046; 83735; 84484; 85025; 85610; 85730; 93010; J1885; J3480

== ENCOUNTER 2022-01-29 16:59 | Outpatient (REF) | payer BC, SELFPAY ==
[2022-01-29 15:37] LABS: ALT 51 U/L (14-59); AST 77 U/L (15-37); Albumin 3.6 g/dL (3.4-5.0); Alkaline Phosphatase 110 U/L (46-116); Anion Gap 11.3 mmol/L (3-11); BUN 13 mg/dL (7-18); Bilirubin, Total 0.5 mg/dL (0.2-1.0); CO2 25.7 mmol/L (21.0-32.0); CREATININE 0.9 mg/dL (0.55-1.02); Calcium 9.1 mg/dL (8.5-10.1); Chloride 96 mmol/L (98-107); Estimated GFR 73.19 (mL/min/1.73m2); Glucose 136 mg/dL (74-106); Magnesium 1.4 mg/dL (1.8-2.4); Potassium 4.3 mmol/L (3.5-5.1); Sodium 133 mmol/L (136-145); Total Protein 7.9 g/dL (6.4-8.2)
== END 2022-01-29 17:00 | disposition home or self-care (01) ==
LOC: NCHCN 16:59
PROVIDERS: PCP Nurse Practitioner Family; Visit Provider Nurse Practitioner Family
DX: I10 Essential (primary) hypertension (principal); J44.9 Chronic obstructive pulmonary disease, unspecified; F10.10 Alcohol abuse, uncomplicated; E83.42 Hypomagnesemia; R91.8 Other nonspecific abnormal finding of lung field
CPT/HCPCS: 80053; 83735

== ENCOUNTER 2022-04-10 02:19 | Emergency (ER) | payer BC, SELFPAY ==
[2022-04-10 02:25] VITALS: BP 190/131; PULSE 107; RESP 16; TEMP 36.9; O2SAT 95
--- NOTE | 2022-04-10 02:30 | W.ED.GENAD ---
Discharge Plan Disposition Patient Disposition: Home Condition: Good Discharge Details Clinical Impression: Laceration of right lower leg, Cat bite of right lower leg Primary Care Provider: Sara Patterson ED Provider: Walter Griffiths Home Meds and New Rx's Prescriptions: New amoxicillin-pot clavulanate 875-125 mg tablet 1 tab PO BID Qty: 20 0RF No Action omeprazole 20 mg capsule,delayed release(DR/EC) 20 mg PO DAILY Spiriva Respimat 2.5 mcg/actuation mist 2 puff inhalation DAILY Qty: 4 12RF albuterol sulfate 90 mcg/actuation HFA aerosol inhaler 2 puff inhalation Q6H PRN (Reason: shortness of breath or wheezing) Qty: 8.5 12RF magnesium oxide 400 mg (241.3 mg magnesium) tablet 400 mg PO DAILY Qty: 30 0RF aspirin 81 mg tablet,delayed release (DR/EC) 81 mg PO DAILY Qty: 30 0RF multivitamin [Multiple Vitamins] Tablet 1 tab PO DAILY Qty: 30 0RF thiamine mononitrate (vit B1) [Vitamin B-1 (mononitrate)] 100 mg Tablet 100 mg PO DAILY Qty: 30 0RF gabapentin 300 mg Capsule 300 mg PO TID Discharge Instructions Instructions: Laceration (ED) Additional Instructions: At this point since it has been over 48 hours since the laceration it is no longer safe to sew it back. It will heal with time. Please change the bandages daily. Please take the antibiotic Augmentin as directed. If you notice any worsening of your symptoms, or any new symptoms such as worsening redness, swelling, chills, vomiting, diarrhea, fever, chills, shortness of breath, chest pain, numbness, weakness, or fainting , please return immediately to the emergency department for reevaluation. Please follow up with your primary care provider as soon as possible for reassessment and reevaluation. As always, it was a pleasure participating in your medical care today. Referrals: Sara Patterson [Primary Care Provider] - Medical Decision Making 62-year-old female with a past medical history of alcohol abuse, COPD, GERD, who presents today for evaluation of laceration to her right calf. 2 days ago she was attacked by a cat at the animal custodial. It cut her right leg. She bandaged it up at that time and continued throughout her day. Cat was updated on its rabies vaccinations per the patient. Patient's tetanus shot was updated in 2016. Patient noticed some redness and swelling tonight 48 hours after the initial incident, came in for evaluation. She denies any fever or chills. No other complaints at this time. Exam demonstrates a 5 cm linear laceration on the right calf, mild erythema surrounding this. No bleeding. No involvement of the deep structures. Laceration appears to be from the superficial structures of the skin. Since its 48 hours out, and from a cat I do not think it would be in the patient's best interest to suture it at this point. As this would be contraindicated. We will prescribe Augmentin, give a bottle here and send a prescription to her pharmacy. We washed dried and we bandaged the area. I will heal with secondary intention with time. Discussed red flags which to return. I have extensively reviewed the treatment plan and discharge instructions with the patient. I have addressed all patient concerns at this time. The patient was made aware of what symptoms to monitor for that would warrant a return to the emergency department. Discussed the plan with the patient, they demonstrate verbal understanding and agreement with our assessment and plan at this time. The documentation in this chart was dictated using [employer] dictation software. Please excuse any dictation errors. Sign Out No HPI General Date/Time Provider Initiated Documentation: 04/10/22 02:20. HPI Narrative: 62-year-old female with a past medical history of alcohol abuse, COPD, GERD, who presents today for evaluation of laceration to her right calf. 2 days ago she was attacked by a cat at the animal custodial. It cut her right leg. She bandaged it up at that time and continued throughout her day. Cat was updated on its rabies vaccinations per the patient. Patient's tetanus shot was updated in 2016. Patient noticed some redness and swelling tonight 48 hours after the initial incident, came in for evaluation. She denies any fever or chills. No other complaints at this time. Related Data Home Medications Medication Instructions Recorded Confirmed gabapentin 300 mg capsule 300 mg PO TID 08/13/20 01/18/22 multivitamin (Multiple Vitamins 1 tab PO DAILY #30 tabs 08/13/20 01/18/22 tablet) thiamine mononitrate (vit B1) 100 100 mg PO DAILY #30 tabs 08/13/20 01/18/22 mg tablet (Vitamin B-1 (mononitrate)) aspirin 81 mg tablet,delayed 81 mg PO DAILY #30 tabs 12/27/20 01/18/22 release magnesium oxide 400 mg (241.3 mg 400 mg PO DAILY #30 tabs 12/27/20 01/18/22 magnesium) tablet omeprazole 20 mg capsule,delayed 20 mg PO DAILY 09/16/21 01/18/22 release albuterol sulfate 90 mcg/actuation 2 puff inhalation Q6H PRN 01/18/22 01/18/22 aerosol inhaler shortness of breath or wheezing #8.5 grams tiotropium bromide 2.5 2 puff inhalation DAILY #4 grams 01/18/22 01/18/22 mcg/actuation mist for inhalation (Spiriva Respimat) amoxicillin 875 mg-potassium 1 tab PO BID #20 tabs 04/10/22 clavulanate 125 mg tablet Previous Rx's Medication Instructions Recorded multivitamin (Multiple Vitamins 1 tab PO DAILY #30 tabs 08/13/20 tablet) thiamine mononitrate (vit B1) 100 100 mg PO DAILY #30 tabs 08/13/20 mg tablet (Vitamin B-1 (mononitrate)) aspirin 81 mg tablet,delayed 81 mg PO DAILY #30 tabs 12/27/20 release magnesium oxide 400 mg (241.3 mg 400 mg PO DAILY #30 tabs 12/27/20 magnesium) tablet albuterol sulfate 90 mcg/actuation 2 puff inhalation Q6H PRN 01/18/22 aerosol inhaler shortness of breath or wheezing #8.5 grams tiotropium bromide 2.5 2 puff inhalation DAILY #4 grams 01/18/22 mcg/actuation mist for inhalation (Spiriva Respimat) amoxicillin 875 mg-potassium 1 tab PO BID #20 tabs 04/10/22 clavulanate 125 mg tablet Allergies Allergy/AdvReac Type Severity Reaction Status Date / Time bacitracin Allergy Mild localized Verified 01/18/22 14:35 [From Neosporin redness ([id number])] neomycin Allergy Mild localized Verified 01/18/22 14:35 [From Neosporin redness ([id number])] polymyxin B Allergy Mild localized Verified 01/18/22 14:35 [From Neosporin redness ([id number])] General RAHEEM: 4 Review of Systems All systems reviewed & are unremarkable except as noted in HPI and below PFSH All Active Problems Laceration of right lower leg (Acute) Cat bite of right lower leg (Acute) COPD (chronic obstructive pulmonary disease) (Chronic) Emphysema lung (Acute) Nicotine dependence, cigarettes, uncomplicated (Acute) Atherosclerosis (Acute) Gastric wall thickening (Acute) Stenosis of right internal carotid artery (Acute) Mass of upper lobe of right lung (Acute) Alcohol abuse (Chronic) Dehydration (Acute) Diarrhea (Acute) Hypomagnesemia (Chronic) Discharge planning issues (Acute) DVT prophylaxis (Acute) B12 deficiency (Acute) Ascites (Acute) Chronic liver disease (Chronic) Weight loss, non-intentional (Acute) Alcoholism (Acute) Macrocytic anemia (Acute) Early satiety (Acute) Folate deficiency (Acute) Hypomagnesemia (Acute) Hypokalemia (Acute) Leg pain (Acute) Cellulitis (Acute) Bilateral leg ulcer (Acute) Medical History Alcohol abuse Ascites Bilateral leg pain Bilateral lower extremity edema Cachexia Chest pain Chronic vomiting COPD (chronic obstructive pulmonary disease) Diastolic dysfunction Folate deficiency anemia Frequent falls Gastroesophageal reflux disease Hair loss Hepatic fibrosis Hx pulmonary embolism Hypomagnesemia Malnutrition Pancreatitis Tobacco abuse Tobacco dependence syndrome Ulcer of lower extremity Unintentional weight loss Vitamin D deficiency Surgical History ENT/Nasal surgery (~2007) foot surgery (~2000) Ligation of fallopian tube (~1999) punch biopsy, skin of ankle, right lateral (11/24/16) negative for malignancy, sparse inflammation and reactive blood vessels Family History Father Lung disease Social History Smoking/Tobacco Use Status: Current every day Tobacco Type: cigarettes Tobacco: How many years used: 45 Quit status: considering quitting Second Hand Exposure: Yes Smoking risk assessment performed?: Yes Alcohol Intake: current Alcohol Intake frequency: a few times a week Alcohol type: wine Drug use: Occasionally Substance use type: marijuana Current gender identity: female Do you feel safe at home: Yes Do you feel safe in your relationship?: Yes History History Para 0 Hx # Term Pregnancies Multiple births Hx # Pregnancies Ectopic pregnancies AB induced Hx Number of Living Children AB spontaneous Exam Narrative Exam Narrative: 1.Const: Well-nourished, Well-developed, appearing stated age 2.Eyes: PERRL, no conjunctival injection, and symmetrical lids. 3.ENT: Atraumatic external nose and ears. Moist MM. Neck: Symmetric, trachea midline, No thyromegaly. 4.CVS: +S1/S2, No murmurs or gallops. Peripheral pulses 2+ and equal in all extremities. Brisk capillary refill in all extremities. 5.RESP: Unlabored respiratory effort. Clear to auscultation bilaterally. No wheezes rales or rhonchi 6.GI: Soft, Nontender/Nondistended, No hepatosplenomegaly. No guarding or rebound. 7.MSK: Normocephalic/Atraumatic, Extremities w/o deformity or ttp No cyanosis or clubbing, Normal movement of all extremities 8.Skin: Warm, Dry. Patient's right calf demonstrates a linear laceration about 5 cm in length. It appears to be a superficial skin tear. No significant oozing of blood. Minimal redness surrounding this. No evidence of involvement of deep tissue or structures whatsoever. 9.Neuro: provider relations specialist II-XII grossly intact. Sensation grossly intact, no focal neurologic deficits. 10.Psych: (AAO) x3. Appropriate mood and affect
[2022-04-10] MEDS: Amox. 875/Clav. 125, 2 TABS/BTL 1 TAB PO (02:42)
== END 2022-04-10 02:44 | disposition home or self-care (01) ==
PROVIDERS: Emergency Provider Student in an Organized Health Care Education/Training Program; PCP Nurse Practitioner Family
DX: S81.811A Laceration without foreign body, right lower leg, initial encounter (principal); S81.851A Open bite, right lower leg, initial encounter; W55.01XA Bitten by cat, initial encounter; W55.03XA Scratched by cat, initial encounter
CPT/HCPCS: 99283

== ENCOUNTER 2022-06-23 17:12 | Emergency (ER) | payer BC, SELFPAY ==
[2022-06-23 17:21] VITALS: BP 129/89; PULSE 97; RESP 16; TEMP 36.4; O2SAT 98
--- NOTE | 2022-06-23 18:11 | ED.GENADUL_ITS ---
Discharge Plan Disposition Patient Disposition: Home Condition: Improving Discharge Details Clinical Impression: Neck pain Primary Care Provider: Sara Patterson ED Provider: Juan Strange Home Meds and New Rx's Prescriptions: Continued omeprazole 20 mg capsule,delayed release(DR/EC) 20 mg PO DAILY Spiriva Respimat 2.5 mcg/actuation mist 2 puff inhalation DAILY Qty: 4 12RF albuterol sulfate 90 mcg/actuation HFA aerosol inhaler 2 puff inhalation Q6H PRN (Reason: shortness of breath or wheezing) Qty: 8.5 12RF magnesium oxide 400 mg (241.3 mg magnesium) tablet 400 mg PO DAILY Qty: 30 0RF aspirin 81 mg tablet,delayed release (DR/EC) 81 mg PO DAILY Qty: 30 0RF multivitamin [Multiple Vitamins] Tablet 1 tab PO DAILY Qty: 30 0RF thiamine mononitrate (vit B1) [Vitamin B-1 (mononitrate)] 100 mg Tablet 100 mg PO DAILY Qty: 30 0RF gabapentin 300 mg Capsule 300 mg PO TID Discharge Instructions Instructions: Neck Pain (ED) Additional Instructions: Trigger point injection appears to have essentially completely alleviated your discomfort. As we discussed gentle stretching as tolerated, warm compresses every 2 hours for 20 minutes, and gentle massage. Please watch for new or worsening symptoms and return to the ER for any concerns. Lastly, please contact your primary care provider tomorrow to discuss your ER visit, need for outpatient reevaluation, potential need for outpatient physical therapy if symptoms were to return. Medical Decision Making This is a 62-year-old female who reports a 1 month history of right-sided posterior neck pain that began after sleeping awkwardly. Patient is requesting a shot into her neck for pain control. She states she had a similar episode roughly 6 months ago which resolved with conservative measures. She denies fever, trauma, headache, chest pain, shortness of breath, radiation of her discomfort. Clinically there is a very distinct area of her right inferior neck-trapezius muscle with point tenderness. No signs of abscess. Discussed trigger point injection, patient is agreeable to this. Given there was no trauma or midline point tenderness I do not believe that plain films are likely indicated. This certainly appears to be musculoskeletal in nature. Using a total of 3 cc [id number] mixture of 0.5% bupivacaine and 1% lidocaine with epi I performed a trigger point injection under sterile conditions. Patient tolerated well. Patient was evaluated approximately 10 minutes later and has full range of motion of her neck, reports the pain has resolved completely. Standard discharge and return precautions were provided. Patient understands, is agreeable to this plan, and has no additional questions or concerns upon discharge. This documentation was generated using [employer] system, please disregard any oddities of phrase or misspellings. Medical Records Medical records reviewed: Yes I reviewed the patient's medical records. HPI General Mode of arrival: ambulatory . Date/Time Provider Initiated Documentation: 06/23/22 17:16 . Limitations to Documentation: no limitations . Information obtained by: patient (and friend) . History of Present Illness 62 year old F presents to the emergency department with the chief complaint of R neck pain, described as moderate, with intensity rated at 7. Quality is described as aching, and is localized to the neck. Patient reports no radiation. Patient started experiencing this week(s) (4) and it has been constant. Immobilization improves symptom(s), Movement worsens symptoms (Especially to the right) . Patient notes no other symptoms.. Patient did receive the following treatments prior to arrival, none Related Data Home Medications Medication Instructions Recorded Confirmed gabapentin 300 mg capsule 300 mg PO TID 08/13/20 06/23/22 multivitamin (Multiple Vitamins 1 tab PO DAILY #30 tabs 08/13/20 06/23/22 tablet) thiamine mononitrate (vit B1) 100 100 mg PO DAILY #30 tabs 08/13/20 06/23/22 mg tablet (Vitamin B-1 (mononitrate)) aspirin 81 mg tablet,delayed 81 mg PO DAILY #30 tabs 12/27/20 06/23/22 release magnesium oxide 400 mg (241.3 mg 400 mg PO DAILY #30 tabs 12/27/20 06/23/22 magnesium) tablet omeprazole 20 mg capsule,delayed 20 mg PO DAILY 09/16/21 06/23/22 release albuterol sulfate 90 mcg/actuation 2 puff inhalation Q6H PRN 01/18/22 01/18/22 aerosol inhaler shortness of breath or wheezing #8.5 grams tiotropium bromide 2.5 2 puff inhalation DAILY #4 grams 01/18/22 06/23/22 mcg/actuation mist for inhalation (Spiriva Respimat) Previous Rx's Medication Instructions Recorded multivitamin (Multiple Vitamins 1 tab PO DAILY #30 tabs 08/13/20 tablet) thiamine mononitrate (vit B1) 100 100 mg PO DAILY #30 tabs 08/13/20 mg tablet (Vitamin B-1 (mononitrate)) aspirin 81 mg tablet,delayed 81 mg PO DAILY #30 tabs 12/27/20 release magnesium oxide 400 mg (241.3 mg 400 mg PO DAILY #30 tabs 12/27/20 magnesium) tablet albuterol sulfate 90 mcg/actuation 2 puff inhalation Q6H PRN 01/18/22 aerosol inhaler shortness of breath or wheezing #8.5 grams tiotropium bromide 2.5 2 puff inhalation DAILY #4 grams 01/18/22 mcg/actuation mist for inhalation (Spiriva Respimat) Allergies Allergy/AdvReac Type Severity Reaction Status Date / Time bacitracin Allergy Mild localized Verified 06/23/22 17:28 [From Neosporin redness ([id number])] neomycin Allergy Mild localized Verified 06/23/22 17:28 [From Neosporin redness ([id number])] polymyxin B Allergy Mild localized Verified 06/23/22 17:28 [From Neosporin redness ([id number])] General Stated Complaint: Nk/Back Pain RAHEEM: 4 Review of Systems Constitutional Constitutional: Denies fever(s), Denies headache(s) and Denies weakness ENT Ears, Nose, Mouth, and Throat: Denies headache(s) and Reports neck pain Cardiovascular Cardiovascular: Denies chest pain and Denies dyspnea Respiratory Respiratory: Denies dyspnea Gastrointestinal Gastrointestinal: Denies abdominal pain, Denies nausea and Denies vomiting Musculoskeletal Musculoskeletal: Denies back pain, Reports neck pain, Denies numbness and Denies tingling Integumentary/Breasts Skin/Breast: Denies rash Neurologic Neurologic: Denies headache(s), Denies numbness, Denies tingling and Denies weakness Hematologic/Lymphatic Hematologic/Lymphatic: Denies easy bleeding and Denies easy bruising PFSH All Active Problems (Updated 06/23/22 @ 18:19 by AMIE Ayers) Neck pain (Acute) Pulmonary nodule (Acute) COPD (chronic obstructive pulmonary disease) (Chronic) Emphysema lung (Acute) Nicotine dependence, cigarettes, uncomplicated (Acute) Atherosclerosis (Acute) Gastric wall thickening (Acute) Stenosis of right internal carotid artery (Acute) Mass of upper lobe of right lung (Acute) Alcohol abuse (Chronic) Dehydration (Acute) Diarrhea (Acute) Hypomagnesemia (Chronic) Discharge planning issues (Acute) DVT prophylaxis (Acute) B12 deficiency (Acute) Ascites (Acute) Chronic liver disease (Chronic) Weight loss, non-intentional (Acute) Alcoholism (Acute) Macrocytic anemia (Acute) Early satiety (Acute) Folate deficiency (Acute) Hypomagnesemia (Acute) Hypokalemia (Acute) Leg pain (Acute) Cellulitis (Acute) Bilateral leg ulcer (Acute) Medical History Alcohol abuse Ascites Bilateral leg pain Bilateral lower extremity edema Cachexia Chest pain Chronic vomiting COPD (chronic obstructive pulmonary disease) Diastolic dysfunction Folate deficiency anemia Frequent falls Gastroesophageal reflux disease Hair loss Hepatic fibrosis Hx pulmonary embolism Hypomagnesemia Malnutrition Pancreatitis Tobacco abuse Tobacco dependence syndrome Ulcer of lower extremity Unintentional weight loss Vitamin D deficiency Surgical History ENT/Nasal surgery (~2007) foot surgery (~2000) Ligation of fallopian tube (~1999) punch biopsy, skin of ankle, right lateral (11/24/16) negative for malignancy, sparse inflammation and reactive blood vessels Family History Father Lung disease Social History Smoking/Tobacco Use Status: Current every day Tobacco Type: cigarettes Tobacco: How many years used: 45 Quit status: considering quitting Second Hand Exposure: Yes Smoking risk assessment performed?: Yes Alcohol Intake: current Alcohol Intake frequency: a few times a week Alcohol type: wine Drug use: Rarely Substance use type: marijuana Current gender identity: female Do you feel safe at home: Yes Do you feel safe in your relationship?: Yes Additional Social history: smokes < 1ppd History History Para 0 Hx # Term Pregnancies Multiple births Hx # Pregnancies Ectopic pregnancies AB induced Hx Number of Living Children AB spontaneous Exam Const General: cooperative, healthy appearing, comfortable and no acute distress Orientation: alert, awake and oriented x3 HENMT Head: normal to inspection, normocephalic and atraumatic Face and sinus: normal facial exam Mouth: moist mucous membranes Throat: posterior oropharynx normal Eyes General: appearance normal, both eyes and all related structures Conjunctivae: conjunctivae normal Neck Neck: normal visual inspection, no lymphadenopathy, no meningeal signs, trachea midline, supple and tender Other: Patient prefers to hold her neck in flexion. Full range of motion to the left but reports much more increased pain with any movement to the right. No obvious spasm. Resp Effort & Inspection: normal respiratory effort and able to speak in complete sentences Auscultation: wheezes (Rare scattered expiratory) Cardio Rate: regular rate Rhythm: regular rhythm GI Palpation: soft, no pulsatile masses and nontender Back/Spine/Pelvis Back: no CVA tenderness and No back tenderness Back/spine/pelvis image: 1. Point tenderness at the base of the right side of the neck and into the trapezius with what appears to be a knot. There is no erythema, warmth, fluctuance. Neuro, vascular, tendon intact. Skin General skin exam: no rashes or lesions noted Neuro General: patient alert, patient awake, patient oriented x3, moves all extremities and no focal motor deficits Cognition: normal cognition Speech: speech normal Gait: normal gait Sensory Exam: no sensory deficits noted Extrem General: normal to inspection, full ROM and capillary refill normal Psych Appearance: grossly normal Mental Status: mental status grossly normal Course Vital Signs Vital signs: Vital Signs Temperature 36.4 C L 06/23/22 17:21 Pulse 97 H 06/23/22 17:21 Respiratory Rate 16 06/23/22 17:21 Blood Pressure 129/89 06/23/22 17:21 Pulse Oximetry 98 06/23/22 17:21 Temperature 36.4 C L 06/23/22 17:21 Temperature Source Tympanic 06/23/22 17:21 Pulse 97 H 06/23/22 17:21 Respiratory Rate 16 06/23/22 17:21 Respiratory Effort Normal 06/23/22 17:30 Blood Pressure 129/89 06/23/22 17:21 Blood Pressure Position Sitting 06/23/22 17:21 Pulse Oximetry 98 06/23/22 17:21 Oxygen Delivery Method Room Air 06/23/22 17:21 Oxygen Flow Rate 0 06/23/22 17:21 Pain Level 10 06/23/22 17:32 PAWSS Have you Been Recently Intoxicated or Drunk Within the Last 30 days?: No Have you Ever Experienced Previous Episodes of Alcohol Withdrawal?: No Have you ever Experienced Withdrawal Seizures?: No Have you ever Experienced Delirium Tremens(DT)s?: No Have you ever undergone Alcohol Rehabilitation Treatment (i.e, inpt ot outpatient treatment programs)?: No Have you ever Experienced Blackouts?: No Have you ever Combined Alcohol with other Downers within the last 90 days?: No Have you ever Combined Alcohol with any other Substance of Abuse during the last 90 days?: No Positive Blood Alcohol level on Presentation? [PCS.BAL]: No Evidence of Increased Autonomic Activity (i.e. HR>120, tremor, sweating, agitation, nausea)?: No Result: 0
[2022-06-23] MEDS: Bupivacaine 0.5% Pres-Free 30 ML VIAL (18:26)
[2022-06-23 18:29] VITALS: PULSE 104; O2SAT 95
== END 2022-06-23 18:36 | disposition home or self-care (01) ==
PROVIDERS: Emergency Provider Physician Assistant; PCP Nurse Practitioner Family
DX: M54.2 Cervicalgia (principal)
CPT/HCPCS: 20552

== ENCOUNTER 2022-07-21 12:00 | Emergency (ER) | payer BC, SELFPAY ==
[2022-07-21 12:05] VITALS: BP 123/90; PULSE 110; RESP 18; TEMP 36.6; O2SAT 97
--- NOTE | 2022-07-21 12:15 | DI.RAD_ITS ---
Exam(s) XR SACRUM COCCYX EXAM: XR SACRUM COCCYX CLINICAL HISTORY: fall, pain. TECHNIQUE: 2D digital imaging was performed. Four images were obtained. COMPARISON: No exams were available for comparison FINDINGS: BONES: No acute fracture is present. No bony destructive lesion is seen. JOINTS: No dislocation present. The sacroiliac joints are unremarkable. SOFT TISSUE: Atherosclerosis. IMPRESSION: No acute fracture or dislocation. DATA REPOSITORY: RADIATION DOSE DELIVERED:
--- NOTE | 2022-07-21 12:19 | DI.RAD_ITS ---
Exam(s) XR LUMBAR SPINE COMPLETE EXAM: XR LUMBAR SPINE COMPLETE CLINICAL HISTORY: pain s/p fall. TECHNIQUE: 2D digital imaging was performed of the lumbar spine. Five images were obtained. AP, la teral, right oblique, left oblique and L5-S1 spot views were obtained. COMPARISON: CT CT THORAX ABD/PEL CTA from 12/26/[address] CHEST WO from 10/22/2021 FINDINGS: BONES: There is a superior compression deformity of L1. There is loss of 25 percent of the height of the vertebral body anteriorly. This was not present on the most recent examination of the lumbar sp ine from 10/22/2021. Endplate osteophytes are seen at L2-L3 and L3-L4. Degenerative changes of the fac ets are seen at L5-S1. DISKS: There is disc space narrowing at T12-L1 and L3-L4. ALIGNMENT: Lumbar spinal alignment is within normal limits. No spondylolysis or spondylolisthesis. SOFT TISSUE: Atherosclerosis. IMPRESSION: 1. There is a superior compression fracture deformity at L1 with loss of 25 percent of the height of the vertebral body. 2. Degenerative changes in the lumbar spine. 3. Atherosclerosis. DATA REPOSITORY: RADIATION DOSE DELIVERED:
--- NOTE | 2022-07-21 12:20 | ED.GENADUL_ITS ---
Discharge Plan Disposition Patient Disposition: Home Condition: Stable Discharge Details Clinical Impression: Contusion of sacrum, Lumbar contusion, Closed compression fracture of L1 vertebra Primary Care Provider: Sara Patterson ED Provider: Derek Dejesus Home Meds and New Rx's Prescriptions: Continued omeprazole 20 mg capsule,delayed release(DR/EC) 20 mg PO DAILY fluticasone propion-salmeterol [Advair Diskus] 250-50 mcg/dose blister with device 1 inh inhalation BID Stiolto Respimat 2.5-2.5 mcg/actuation mist 2 puff inhalation Q24H Qty: 4 12RF albuterol sulfate 90 mcg/actuation HFA aerosol inhaler 2 puff inhalation Q6H PRN (Reason: shortness of breath or wheezing) Qty: 8.5 12RF magnesium oxide 400 mg (241.3 mg magnesium) tablet 400 mg PO DAILY Qty: 30 0RF aspirin 81 mg tablet,delayed release (DR/EC) 81 mg PO DAILY Qty: 30 0RF multivitamin [Multiple Vitamins] Tablet 1 tab PO DAILY Qty: 30 0RF thiamine mononitrate (vit B1) [Vitamin B-1 (mononitrate)] 100 mg Tablet 100 mg PO DAILY Qty: 30 0RF gabapentin 300 mg Capsule 300 mg PO TID Discharge Instructions Instructions: Vertebral Compression Fracture (ED), Contusion in Adults (ED) Additional Instructions: follow up with your primary care provider if pain continues in a week if you feel more ill, have severe worsening pain or new pain such as abdominal pain return to the emergency department Medical Decision Making 62 yo female with hx of copd who comes in with lower back pain s/p fall on Tuesday. She states she stood out of bed and her legs slipped and she landed on her buttocks. She denies preceding symptoms such as dizziness, chest pain, dyspnea. She has had some lower back discomfort since and also brusing so came here. She denies head pain, neck pain, upper back pain, abdomen or chest pain. She is ambulating with a normal gait and is caox4 in no distress on exam. She does have ecchymosis of the sacral area of her back with mild tenderness to palpation over the coccyx. She has no upper thoracic, or cevical spine tenderness. She has no stepoffs of the lumbar spine but is tender over l4/l5. No abdominal tenderness. Suspect contusion will obtain xrays to evaluate for fracture imaging shows l1 compression fx and she doesn't have significant pain or tenderness in this area, She is stable for d/c, still ambulatory and no severe pain. She will f/u with pcp, return precautions given Differential Diagnosis Differential Diagnosis: hematoma, contusion, fracture Medical Records Medical records reviewed: Yes I reviewed the patient's medical records. Imaging Data Radiologic Study: Attestation: I personally reviewed and interpreted this imaging study as follows: Imaging: X-Ray Radiologist's impression: l1 compression fx on lumbar xrays Radiologic Study #2: Attestation: I personally reviewed and interpreted this imaging study as follows: Imaging: X-Ray Radiologist's impression: no acute findings sacral/coccyx xray HPI General Mode of arrival: ambulatory . Date/Time Provider Initiated Documentation: 07/21/22 12:01 . Limitations to Documentation: no limitations . Information obtained by: patient . History of Present Illness 62 year old F presents to the emergency department with the chief complaint of pain s/p fall, described as moderate, and it has been constant. No relieving factors improve symptom(s), No exacerbating factors reported . Patient notes no other symptoms.. Patient did receive the following treatments prior to arrival, none Related Data Home Medications Medication Instructions Recorded Confirmed gabapentin 300 mg capsule 300 mg PO TID 08/13/20 07/21/22 multivitamin (Multiple Vitamins 1 tab PO DAILY #30 tabs 08/13/20 07/21/22 tablet) thiamine mononitrate (vit B1) 100 100 mg PO DAILY #30 tabs 08/13/20 07/21/22 mg tablet (Vitamin B-1 (mononitrate)) aspirin 81 mg tablet,delayed 81 mg PO DAILY #30 tabs 12/27/20 07/21/22 release magnesium oxide 400 mg (241.3 mg 400 mg PO DAILY #30 tabs 12/27/20 07/21/22 magnesium) tablet omeprazole 20 mg capsule,delayed 20 mg PO DAILY 09/16/21 07/21/22 release albuterol sulfate 90 mcg/actuation 2 puff inhalation Q6H PRN 01/18/22 07/21/22 aerosol inhaler shortness of breath or wheezing #8.5 grams fluticasone 250 mcg-salmeterol 50 1 inh inhalation BID 07/19/22 07/21/22 mcg/dose blistr powdr for inhalation (Advair Diskus) tiotropium 2.5 mcg-olodaterol 2.5 2 puff inhalation Q24H #4 grams 07/19/22 07/21/22 mcg/actuation mist for inhalation (Stiolto Respimat) Previous Rx's Medication Instructions Recorded multivitamin (Multiple Vitamins 1 tab PO DAILY #30 tabs 08/13/20 tablet) thiamine mononitrate (vit B1) 100 100 mg PO DAILY #30 tabs 08/13/20 mg tablet (Vitamin B-1 (mononitrate)) aspirin 81 mg tablet,delayed 81 mg PO DAILY #30 tabs 12/27/20 release magnesium oxide 400 mg (241.3 mg 400 mg PO DAILY #30 tabs 12/27/20 magnesium) tablet albuterol sulfate 90 mcg/actuation 2 puff inhalation Q6H PRN 01/18/22 aerosol inhaler shortness of breath or wheezing #8.5 grams tiotropium 2.5 mcg-olodaterol 2.5 2 puff inhalation Q24H #4 grams 07/19/22 mcg/actuation mist for inhalation (Stiolto Respimat) Allergies Allergy/AdvReac Type Severity Reaction Status Date / Time bacitracin Allergy Mild localized Verified 07/21/22 13:22 [From Neosporin redness ([id number])] neomycin Allergy Mild localized Verified 07/21/22 13:22 [From Neosporin redness ([id number])] polymyxin B Allergy Mild localized Verified 07/21/22 13:22 [From Neosporin redness ([id number])] General Stated Complaint: Trauma RAHEEM: 3 Review of Systems All systems reviewed & are unremarkable except as noted in HPI and below Constitutional Constitutional: Denies chills, Denies fever(s) and Denies weakness Cardiovascular Cardiovascular: Denies chest pain and Denies dyspnea Respiratory Respiratory: Denies cough and Denies dyspnea Gastrointestinal Gastrointestinal: Denies abdominal pain, Denies nausea and Denies vomiting Musculoskeletal Musculoskeletal: Denies joint swelling Neurologic Neurologic: Denies weakness PFSH All Active Problems (Updated 07/21/22 @ 14:31 by Derek Dejesus MD) Neck pain (Acute) Contusion of sacrum (Acute) Lumbar contusion (Acute) Closed compression fracture of L1 vertebra (Acute) Pulmonary nodule (Acute) COPD (chronic obstructive pulmonary disease) (Chronic) Emphysema lung (Acute) Nicotine dependence, cigarettes, uncomplicated (Acute) Atherosclerosis (Acute) Gastric wall thickening (Acute) Stenosis of right internal carotid artery (Acute) Mass of upper lobe of right lung (Acute) Alcohol abuse (Chronic) Dehydration (Acute) Diarrhea (Acute) Hypomagnesemia (Chronic) Discharge planning issues (Acute) DVT prophylaxis (Acute) B12 deficiency (Acute) Ascites (Acute) Chronic liver disease (Chronic) Weight loss, non-intentional (Acute) Alcoholism (Acute) Macrocytic anemia (Acute) Early satiety (Acute) Folate deficiency (Acute) Hypomagnesemia (Acute) Hypokalemia (Acute) Leg pain (Acute) Cellulitis (Acute) Bilateral leg ulcer (Acute) Medical History Alcohol abuse Ascites Bilateral leg pain Bilateral lower extremity edema Cachexia Chest pain Chronic vomiting COPD (chronic obstructive pulmonary disease) Diastolic dysfunction Folate deficiency anemia Frequent falls Gastroesophageal reflux disease Hair loss Hepatic fibrosis Hx pulmonary embolism Hypomagnesemia Malnutrition Pancreatitis Tobacco abuse Tobacco dependence syndrome Ulcer of lower extremity Unintentional weight loss Vitamin D deficiency Surgical History ENT/Nasal surgery (~2007) foot surgery (~2000) Ligation of fallopian tube (~1999) punch biopsy, skin of ankle, right lateral (11/24/16) negative for malignancy, sparse inflammation and reactive blood vessels Family History Father Lung disease Social History Smoking/Tobacco Use Status: Current every day Tobacco Type: cigarettes Tobacco: How many years used: 45 Quit status: considering quitting Second Hand Exposure: Yes Smoking risk assessment performed?: Yes Alcohol Intake: current Alcohol Intake frequency: a few times a week Alcohol type: wine Drug use: Rarely Substance use type: marijuana Current gender identity: female Do you feel safe at home: Yes Do you feel safe in your relationship?: Yes Additional Social history: smokes < 1ppd History History Para 0 Hx # Term Pregnancies Multiple births Hx # Pregnancies Ectopic pregnancies AB induced Hx Number of Living Children AB spontaneous Exam Const General: no acute distress Orientation: alert HENMT Head: normal to inspection Ears: external ears normal General nose exam: external nose normal Mouth: moist mucous membranes Eyes General: appearance normal, both eyes and all related structures Neck Neck: normal visual inspection Resp Effort & Inspection: normal respiratory effort and able to speak in complete sentences Cardio Rate: regular rate Back/Spine/Pelvis Back: no CVA tenderness Sacrum: ecchymosis Skin General skin exam: no rashes or lesions noted Neuro General: patient alert and patient oriented x3 Extrem General: normal to inspection Psych Mental Status: mental status grossly normal Course Vital Signs Vital signs: Vital Signs Temperature 36.6 C 07/21/22 12:05 Pulse 110 H 07/21/22 12:05 Respiratory Rate 18 07/21/22 12:05 Blood Pressure 123/90 07/21/22 12:05 Pulse Oximetry 97 07/21/22 12:05 Temperature 36.6 C 07/21/22 12:05 Temperature Source Oral 07/21/22 12:05 Pulse 110 H 07/21/22 12:05 Respiratory Rate 18 07/21/22 12:05 Blood Pressure 123/90 07/21/22 12:05 Pulse Oximetry 97 07/21/22 12:05 Oxygen Delivery Method Room Air 07/21/22 12:05 Oxygen Flow Rate 0 07/21/22 12:05 Pain Level 5 07/21/22 12:05
[2022-07-21] MEDS: Acetaminophen 500 MG TAB 1000 MG PO (12:39)
== END 2022-07-21 14:35 | disposition home or self-care (01) ==
PROVIDERS: Emergency Provider Emergency Medicine; PCP Nurse Practitioner Family
DX: S32.019A Unspecified fracture of first lumbar vertebra, initial encounter for closed fracture (principal); J44.9 Chronic obstructive pulmonary disease, unspecified; Z86.711 Personal history of pulmonary embolism; Z79.82 Long term (current) use of aspirin; Z79.51 Long term (current) use of inhaled steroids; W06.XXXA Fall from bed, initial encounter
CPT/HCPCS: 99283; 72110; 72220; 99282

== ENCOUNTER 2022-08-03 11:02 | Emergency (ER) | payer BC, SELFPAY ==
--- NOTE | 2022-08-03 11:04 | ED.GENADUL_ITS ---
Discharge Plan Disposition Patient Disposition: Eloped Condition: Stable Discharge Details Clinical Impression: Eloped from emergency department, Fall at home, Back contusion Primary Care Provider: Sara Patterson ED Provider: Nishi Barber Home Meds and New Rx's Prescriptions: No Action omeprazole 20 mg capsule,delayed release(DR/EC) 20 mg PO DAILY fluticasone propion-salmeterol [Advair Diskus] 250-50 mcg/dose blister with device 1 inh inhalation BID Stiolto Respimat 2.5-2.5 mcg/actuation mist 2 puff inhalation Q24H Qty: 4 12RF albuterol sulfate 90 mcg/actuation HFA aerosol inhaler 2 puff inhalation Q6H PRN (Reason: shortness of breath or wheezing) Qty: 8.5 12RF magnesium oxide 400 mg (241.3 mg magnesium) tablet 400 mg PO DAILY Qty: 30 0RF aspirin 81 mg tablet,delayed release (DR/EC) 81 mg PO DAILY Qty: 30 0RF multivitamin [Multiple Vitamins] Tablet 1 tab PO DAILY Qty: 30 0RF thiamine mononitrate (vit B1) [Vitamin B-1 (mononitrate)] 100 mg Tablet 100 mg PO DAILY Qty: 30 0RF gabapentin 300 mg Capsule 300 mg PO TID Discharge Data Discharge Date/Time-TO BE ENTERED AT DEPARTURE: 08/03/22 12:38 Medical Decision Making 62-year-old female with a history of alcohol and tobacco abuse, frequent falls, COPD, pulmonary embolism, pancreatitis who presents for left-sided lower back pain after mechanical fall last night in the bathroom. She was seen here on July 21 for mechanical fall and diagnosed with a L1 compression fracture. She was also noted to have a hematoma in her left hip at that time which she states has been improving. No cauda equina symptoms. No abdominal pain. She does have tenderness to her left lower back but no midline T or L-spine pain. She has normal range of motion of her hips without pain or deformity or lower extremity shortening. She has a 6 x 6 cm hematoma to her left lateral posterior hip which she states is improving. She has healing ecchymosis noted to her entire proximal left leg extending from her left buttock down to the left posterior knee. She otherwise has no focal deficits and is neurovascular intact. Considering her comorbidities and frequent falls, will obtain CT chest, abdomen and pelvis with thoracic and lumbar spine recons. We will give a dose of Tylenol and Valium p.o. Patient had asked nurse if she can leave to go outside to smoke. Discussed with patient that she has not yet gone to CT imaging and will need to stay in the [facility] department pending imaging and results. Within several minutes, patient eloped from the ED and was noted to be walking down the street from the hospital from the ED hospital camera. Medical Records Medical records reviewed: Yes I reviewed the patient's medical records. Medical records narrative: 07/21/22 XR LUMBAR SPINE COMPLETE CLINICAL HISTORY: ? pain s/p fall.? TECHNIQUE:? 2D digital imaging was performed of the lumbar spine.? Five images were obtained.? AP, lateral, right oblique, left oblique and L5-S1 spot views were obtained. COMPARISON:? CT CT THORAX ? ABD/PEL CTA from 12/26/[address] CHEST WO from 10/22/2021 FINDINGS: BONES: There is a superior compression deformity of L1.? There is loss of 25 percent of the height of the vertebral body anteriorly.? This was not present on the most recent examination of the lumbar spine from 10/22/2021. Endplate osteophytes are seen at L2-L3 and L3-L4. Degenerative changes of the facets are seen at L5-S1. DISKS: There is disc space narrowing at T12-L1 and L3-L4. ALIGNMENT: Lumbar spinal alignment is within normal limits. No spondylolysis or spondylolisthesis. SOFT TISSUE: Atherosclerosis.? IMPRESSION: 1. There is a superior compression fracture deformity at L1 with loss of 25 percent of the height of the vertebral body. 2. Degenerative changes in the lumbar spine. 3. Atherosclerosis.? 07/21/22 XR SACRUM COCCYX CLINICAL HISTORY: ? fall, pain.? TECHNIQUE:? 2D digital imaging was performed.? Four images were obtained. COMPARISON:? No exams were available for comparison FINDINGS: BONES: No acute fracture is present. No bony destructive lesion is seen. JOINTS: No dislocation present. The sacroiliac joints are unremarkable. SOFT TISSUE: Atherosclerosis.? IMPRESSION: No acute fracture or dislocation.? HPI General Mode of arrival: ambulatory . Date/Time Provider Initiated Documentation: 08/03/22 11:03 . Limitations to Documentation: no limitations . Information obtained by: patient . HPI Narrative: Patient is a 62-year-old female with a history of alcohol abuse, COPD, GERD, pulmonary embolism, pancreatitis, tobacco abuse who was recently seen here in the last 2 weeks for fall with back pain and diagnosed with L1 compression fracture presents for reevaluation of worsening back pain after fall last night in bathroom. Patient states she was also diagnosed with a hematoma on her left buttock after her recent fall and states this is overall been improving. She does not use a walker or cane at home she reports. She states last night after her recent fall, she called EMS to help with assistance up from the floor. She states today she was noticing some increasing pain in her left lower back so had a neighbor bring her here for evaluation. She denies any new bowel or bladder incontinence or new saddle anesthesia. She denies any new leg weakness or numbness. Related Data Home Medications Medication Instructions Recorded Confirmed gabapentin 300 mg capsule 300 mg PO TID 08/13/20 07/21/22 multivitamin (Multiple Vitamins 1 tab PO DAILY #30 tabs 08/13/20 07/21/22 tablet) thiamine mononitrate (vit B1) 100 100 mg PO DAILY #30 tabs 08/13/20 07/21/22 mg tablet (Vitamin B-1 (mononitrate)) aspirin 81 mg tablet,delayed 81 mg PO DAILY #30 tabs 12/27/20 07/21/22 release magnesium oxide 400 mg (241.3 mg 400 mg PO DAILY #30 tabs 12/27/20 07/21/22 magnesium) tablet omeprazole 20 mg capsule,delayed 20 mg PO DAILY 09/16/21 07/21/22 release albuterol sulfate 90 mcg/actuation 2 puff inhalation Q6H PRN 01/18/22 07/21/22 aerosol inhaler shortness of breath or wheezing #8.5 grams fluticasone 250 mcg-salmeterol 50 1 inh inhalation BID 07/19/22 07/21/22 mcg/dose blistr powdr for inhalation (Advair Diskus) tiotropium 2.5 mcg-olodaterol 2.5 2 puff inhalation Q24H #4 grams 07/19/22 07/21/22 mcg/actuation mist for inhalation (Stiolto Respimat) Previous Rx's Medication Instructions Recorded multivitamin (Multiple Vitamins 1 tab PO DAILY #30 tabs 08/13/20 tablet) thiamine mononitrate (vit B1) 100 100 mg PO DAILY #30 tabs 08/13/20 mg tablet (Vitamin B-1 (mononitrate)) aspirin 81 mg tablet,delayed 81 mg PO DAILY #30 tabs 12/27/20 release magnesium oxide 400 mg (241.3 mg 400 mg PO DAILY #30 tabs 12/27/20 magnesium) tablet albuterol sulfate 90 mcg/actuation 2 puff inhalation Q6H PRN 01/18/22 aerosol inhaler shortness of breath or wheezing #8.5 grams tiotropium 2.5 mcg-olodaterol 2.5 2 puff inhalation Q24H #4 grams 07/19/22 mcg/actuation mist for inhalation (Stiolto Respimat) Allergies Allergy/AdvReac Type Severity Reaction Status Date / Time bacitracin Allergy Mild localized Verified 07/21/22 13:22 [From Neosporin redness ([id number])] neomycin Allergy Mild localized Verified 07/21/22 13:22 [From Neosporin redness ([id number])] polymyxin B Allergy Mild localized Verified 07/21/22 13:22 [From Neosporin redness ([id number])] General Stated Complaint: Nk/Back Pain RAHEEM: 3 Review of Systems All systems reviewed & are unremarkable except as noted in HPI and below Constitutional Constitutional: Reports as per HPI, Denies chills and Denies fever(s) Eyes Eyes: Denies blurry vision ENT Ears, Nose, Mouth, and Throat: Denies dizziness, Denies sore throat and Denies throat swelling Cardiovascular Cardiovascular: Denies chest pain and Denies dyspnea Respiratory Respiratory: Denies cough and Denies dyspnea Gastrointestinal Gastrointestinal: Denies abdominal pain, Denies diarrhea and Denies vomiting Genitourinary Genitourinary: Denies hematuria and Denies dysuria Musculoskeletal Musculoskeletal: Reports back pain and Denies numbness Integumentary/Breasts Skin/Breast: Denies lesions and Denies rash Neurologic Neurologic: Denies dizziness, Denies localized weakness and Denies numbness Allergic/Immunologic Allergic/Immunologic: Denies throat swelling PFSH All Active Problems (Updated 08/06/22 @ 16:26 by Nishi Barber DO) Contusion of sacrum (Acute) Lumbar contusion (Acute) Closed compression fracture of L1 vertebra (Acute) Eloped from emergency department (Acute) Fall at home (Acute) Back contusion (Acute) Pulmonary nodule (Acute) COPD (chronic obstructive pulmonary disease) (Chronic) Emphysema lung (Acute) Nicotine dependence, cigarettes, uncomplicated (Acute) Atherosclerosis (Acute) Gastric wall thickening (Acute) Stenosis of right internal carotid artery (Acute) Mass of upper lobe of right lung (Acute) Alcohol abuse (Chronic) Dehydration (Acute) Diarrhea (Acute) Hypomagnesemia (Chronic) Discharge planning issues (Acute) DVT prophylaxis (Acute) B12 deficiency (Acute) Ascites (Acute) Chronic liver disease (Chronic) Weight loss, non-intentional (Acute) Alcoholism (Acute) Macrocytic anemia (Acute) Early satiety (Acute) Folate deficiency (Acute) Hypomagnesemia (Acute) Hypokalemia (Acute) Leg pain (Acute) Cellulitis (Acute) Bilateral leg ulcer (Acute) Medical History Alcohol abuse Ascites Bilateral leg pain Bilateral lower extremity edema Cachexia Chest pain Chronic vomiting COPD (chronic obstructive pulmonary disease) Diastolic dysfunction Folate deficiency anemia Frequent falls Gastroesophageal reflux disease Hair loss Hepatic fibrosis Hx pulmonary embolism Hypomagnesemia Malnutrition Pancreatitis Tobacco abuse Tobacco dependence syndrome Ulcer of lower extremity Unintentional weight loss Vitamin D deficiency Surgical History ENT/Nasal surgery (~2007) foot surgery (~2000) Ligation of fallopian tube (~1999) punch biopsy, skin of ankle, right lateral (11/24/16) negative for malignancy, sparse inflammation and reactive blood vessels Family History Father Lung disease Social History Smoking/Tobacco Use Status: Current every day Tobacco Type: cigarettes Tobacco: How many years used: 45 Quit status: considering quitting Second Hand Exposure: Yes Smoking risk assessment performed?: Yes Alcohol Intake: current Alcohol Intake frequency: a few times a week Alcohol type: wine Drug use: Rarely Substance use type: marijuana Current gender identity: female Do you feel safe at home: Yes Do you feel safe in your relationship?: Yes Additional Social history: smokes < 1ppd History History Para 0 Hx # Term Pregnancies Multiple births Hx # Pregnancies Ectopic pregnancies AB induced Hx Number of Living Children AB spontaneous Exam Const General: cooperative and no acute distress Nutritional Appearance: thin Orientation: alert, awake and oriented x3 HENMT Head: normal to inspection Face and sinus: normal facial exam Eyes General: appearance normal, both eyes and all related structures Pupils: PERRL EOM: EOM intact bilaterally Neck Neck: normal visual inspection and No submandibular swelling Lymphatic: no lymphadenopathy noted Chest Chest: normal inspection of the chest and no tenderness Resp Effort & Inspection: normal respiratory effort and able to speak in complete sentences Auscultation: clear to auscultation bilaterally Cardio Rate: tachycardic Rhythm: regular rhythm GI Inspection: normal to inspection and no abdominal wall ecchymosis Palpation: soft, not firm, not rigid and nontender Auscultation: hypoactive bowel sounds Back/Spine/Pelvis Thoracic/Lumbar Spine: thoracic and lumbar spine normal to inspection, No thoracic spinal tenderness and No lumbar spinal tenderness Pelvis: no pain with anterior-posterior compression Back/spine/pelvis image: 1. Location of tenderness. There is a 1 mm x 2 cm superficial abrasion to left lower lumbar paraspinal region. Skin General skin exam: no rashes or lesions noted Neuro General: patient alert, patient awake and patient oriented x3 Cognition: normal cognition Speech: speech normal Motor: muscle tone normal throughout Sensory Exam: no sensory deficits noted Extrem General: full ROM Upper/lower leg/hip images: 1. Ecchymosis in various stages of healing, purple, yellow and green. There is no crepitus, drainage or bleeding. Other: Bilateral DP/PT pulses intact. Full range of motion at hips, knees and ankles bilaterally without pain. Psych Appearance: grossly normal Mental Status: mental status grossly normal Speech and Movement: speech and movement normal Affect: normal affect
[2022-08-03 11:07] VITALS: BP 115/82; PULSE 113; RESP 18; TEMP 36.4; O2SAT 98
[2022-08-03] MEDS: Lidocaine 5% Patch 1 PATCH TP (12:35)
[2022-08-03] MEDS: Acetaminophen 500 MG TAB 1000 MG PO (12:35)
[2022-08-03] MEDS: diazePAM 5 MG TAB PO (12:35)
--- NOTE | 2022-08-03 12:49 | NUR.NOTE ---
Nursing Note: Patient expressed need to smoke. Other ED RN informed patient she would not be able to leave unit to go outside and smoke. Patient informed of timeline and plan of care. Patient collected items and left unit. All belongings with patient. Patient expressed that she would come back inside after cigarette. MD Barber notified. Reiterated that patient room will not be held for her if she left the unit.
== END 2022-08-03 12:38 | disposition left against medical advice (07) ==
LOC: ER 11:08
PROVIDERS: Emergency Provider Physician Assistant; PCP Nurse Practitioner Family
DX: S30.0XXA Contusion of lower back and pelvis, initial encounter (principal); S32.019D Unspecified fracture of first lumbar vertebra, subsequent encounter for fracture with routine healing; S70.02XD Contusion of left hip, subsequent encounter; S80.12XD Contusion of left lower leg, subsequent encounter; J44.9 Chronic obstructive pulmonary disease, unspecified; R00.0 Tachycardia, unspecified; Z79.51 Long term (current) use of inhaled steroids; Z79.82 Long term (current) use of aspirin; Z86.711 Personal history of pulmonary embolism; W19.XXXA Unspecified fall, initial encounter; Y92.002 Bathroom of unspecified non-institutional (private) residence as the place of occurrence of the external cause
CPT/HCPCS: 96372; 99284

== ENCOUNTER 2022-08-16 18:58 | Emergency (ER) | payer BC, SELFPAY ==
[2022-08-16 19:00] VITALS: BP 131/90; PULSE 112; RESP 20; TEMP 36.6; O2SAT 98
--- NOTE | 2022-08-16 19:36 | DI.CT_ITS ---
Exam(s) CT CHEST/ABD/PEL W CT THORACIC LUMBAR SPINE REC EXAM: CT CHEST/ABD/PEL W CLINICAL HISTORY: fall, left pelvic hematoma, left low back pain TECHNIQUE: Imaging Protocol: Axial computed tomography images with coronal and sagittal reformatted images were created and reviewed CONTRAST MATERIAL: Intravenous: Omnipaque 350 contrast volume:100 mL Oral: No COMPARISON: CT CT THORAX ABD/PEL CTA from 12/26/2020 X-ray lumbar spine 07/21/2022 FINDINGS: CHEST: Tracheobronchial tree: Patent where visualized. Pulmonary parenchyma: Marked emphysematous changes are present. Stable masslike area in the right up per lobe. Stable left upper lobe scarring. No focal consolidating infiltrates are seen. There are dependent atelectatic changes in the lung bases, right greater than left. Visualized thyroid gland: Unremarkable. Mediastinum and Gaye: Stable enlarged mediastinal lymph nodes. The esophagus is unremarkable. Pleura: No effusion or pneumothorax. Heart: Mild cardiomegaly. Coronary artery calcification and/or stents are present. No pericardial e ffusion. Pulmonary arteries: No pulmonary emboli are identified. Aorta: Thoracic aorta non-dilated. Atherosclerosis. There is no evidence of dissection. Lymph nodes: Within normal limits. Soft tissues: Unremarkable. Bones:Within normal limits for the patient's age. There are old healed right rib fractures. CT thoracic spine recons: There are age-appropriate degenerative changes seen in the thoracic spine. No acute fractures or subluxations are present. The bones are osteopenic. ABDOMEN: Liver: Normal density. No measurable mass. Portal, Superior Mesenteric, and Splenic Veins: Unremarkable. Gallbladder and Biliary Tract: No radiodense calculus or dilation. Pancreas: Normal density, no abnormal calcifications or inflammatory process. Spleen: Normal. Adrenals: No masses seen. Kidneys: Normal size, contour and axis. No radiodense stones or obstructive uropathy. There is a stab le simple cyst in the right kidney. No follow-up is recommended. Abdominal Aorta: Abdominal portion non-dilated. Atherosclerosis is present. Bowel: There is diverticulosis of the colon, but no evidence of acute diverticulitis. There is no ev idence of bowel obstruction or bowel wall thickening. Appendix is unremarkable. Peritoneal Cavity: No ascites, collection or mesenteric inflammatory response. No free air. Lymph Nodes: Within normal limits. Bones: Within normal limits for the patient's age. Soft Tissues: There is a large hematoma in the subcutaneous fat overlying the left gluteal region. I t measures 11.5 x 4.1 x 8.9 cm. There is no evidence of active hemorrhage. There is no involvement of the gluteal muscles. Lumbar spine CT recons: There are nondisplaced fractures involving the left transverse processes of L 2 through L4. Age-appropriate degenerative changes are seen in the lumbar spine. There is a superio r endplate compression deformity of L1. This was present on the x-ray of the lumbar spine from 2022 and is unchanged. The bones are osteopenic. PELVIS: Bladder: There is diffuse thickening of the wall of the urinary bladder. Reproductive Organs: Unremarkable as visualized. Lymph Nodes: Within normal limits. Bones: Within normal limits. IMPRESSION: 1. No acute thoracic injury. 2. Stable scarring and nodularity in the upper lobes. Stable enlarged mediastinal lymph nodes. 3. No acute abdominal or pelvic organ injury. 4. Acute fractures involving the left transverse processes of L2 through L4. There is mild displacem ent of the L3 transverse process fracture. 5. Large subcutaneous left gluteal hematoma. No evidence of active hemorrhage. RADIATION DOSE DELIVERED: Total DLP DATA REPOSITORY: All CT scans at this facility are submitted to the National Radiology Data Registry (NRDR) Dose Index Registry (DIR) with the [employer] ([employer]). RADIATION OPTIMIZATION: All CT scans at this facility use at least one of these dose optimization te chniques: automated exposure control; mA and/or kV adjustment per patient size (includes targeted exa ms where dose is matched to clinical indication); or iterative reconstruction.
[2022-08-16 19:59] LABS: Abs Immature Grans 0.07 10^3/uL (0.0-0.06); Absolute Basophil Count 0.06 10^3/uL (0.0-0.2); Absolute Eosinophil Count 0.03 10^3/uL (0.0-0.7); Absolute Monocyte Count 0.72 10^3/uL (0.1-0.8); Absolute Neutrophil Count 2.21 10^3/uL (1.2-6.7); Basophils % 1.2; Eosinophils % 0.6; HCT 32.7 % (36.0-46.0); Immature Grans % 1.4; Lymphocytes % 38.1; MCH 36.5 pg (27.0-33.0); MCHC 33.6 % (32.0-36.0); MCV 109 fL (80-95); MPV 9.5 fL (8.0-11.0); Monocytes % 14.4; Neutrophils % 44.3; Platelet Count 289 10^3/uL (130-400); RBC 3.01 10^6/uL (3.93-5.22); RDW 17.3 % (11.7-14.6); RDW-SD 68.1 fL; WBC 4.99 10^3/uL (4.4-10.8)
[2022-08-16] MEDS: Lidocaine 5% Patch 1 PATCH (20:01)
[2022-08-16 20:14] LABS: INR 0.9 (0.9-1.1); PTT Activated 23.4 sec (21.5-31.9); Prothrombin Time 9.6 sec (9.3-11.0)
[2022-08-16 20:16] LABS: ALT 23 U/L (14-59); AST 52 U/L (15-37); Alkaline Phosphatase 107 U/L (46-116); Anion Gap 6.4 mmol/L (3-11); BUN 10 mg/dL (7-18); Bilirubin, Total 0.3 mg/dL (0.2-1.0); CO2 29.6 mmol/L (21.0-32.0); CREATININE 0.6 mg/dL (0.55-1.02); Calcium 8.3 mg/dL (8.5-10.1); Chloride 104 mmol/L (98-107); Estimated GFR 102.06 (mL/min/1.73m2); Glucose 94 mg/dL (74-106); Magnesium 1.8 mg/dL (1.8-2.4); Potassium 3.5 mmol/L (3.5-5.1); Sodium 140 mmol/L (136-145); Total Protein 6.7 g/dL (6.4-8.2)
[2022-08-16 20:18] LABS: Anisocytosis 1+; Diff Comment Diff Reviewed; Macrocytosis 1+
[2022-08-16] MEDS: Normal Saline Flush 10 ML SYR IVP (20:41)
[2022-08-16] MEDS: Normal Saline - Diluent 50 ML VIAL IJ (20:41)
[2022-08-16] MEDS: Omnipaque 350 MG/ML 100 ML BTL IJ (20:42)
--- NOTE | 2022-08-16 21:11 | ED.GENADUL_ITS ---
Discharge Plan Disposition Patient Disposition: Against Medical Advice Discharge Details Chief Complaint: Orthopedic Clinical Impression: Fracture of transverse process of lumbar vertebra, Calcification of coronary artery, Enlarged lymph nodes, Arterial atherosclerosis, Hematoma, Anemia, Hypocalcemia Primary Care Provider: Sara Patterson ED Provider: Mahesh Ortega Home Meds and New Rx's Prescriptions: No Action omeprazole 20 mg capsule,delayed release(DR/EC) 20 mg PO DAILY fluticasone propion-salmeterol [Advair Diskus] 250-50 mcg/dose blister with device 1 inh inhalation BID Stiolto Respimat 2.5-2.5 mcg/actuation mist 2 puff inhalation Q24H Qty: 4 12RF albuterol sulfate 90 mcg/actuation HFA aerosol inhaler 2 puff inhalation Q6H PRN (Reason: shortness of breath or wheezing) Qty: 8.5 12RF magnesium oxide 400 mg (241.3 mg magnesium) tablet 400 mg PO DAILY Qty: 30 0RF aspirin 81 mg tablet,delayed release (DR/EC) 81 mg PO DAILY Qty: 30 0RF multivitamin [Multiple Vitamins] Tablet 1 tab PO DAILY Qty: 30 0RF thiamine mononitrate (vit B1) [Vitamin B-1 (mononitrate)] 100 mg Tablet 100 mg PO DAILY Qty: 30 0RF gabapentin 300 mg Capsule 300 mg PO TID Medical Decision Making 62yo female with multiple medical problems including history of alcoholism, frequent falls, left AMA on 08/03/2022 after being seen for fall with concern for traumatic injury, returns with concern for ecchymosis extending from her pelvic hematoma down her lateral left leg. Concern remains for potential spinal fracture and retroperitoneal hematoma or other now subacute traumatic injury. Plan to obtain CT of the chest abdomen pelvis. I will obtain thoracic and lumbar spinal reconstructions. I had a discussion with the patient about my diagnostic/treatment plan. Patient declines plan and wishes to leave against medical advise. I reiterated my concer ns to the patient and explained the risks of leaving prior to completion of workup and treatment. I specifically emphasized the possibility of life- threatening or lifestyle modifying disease that would not be appropriately treated if they leave. Patient verbalized understanding of my concerns and the potential for life threatening or lifestyle modifying disease. Patient has capacity to make informed decision. She is clinically sober. I again explained my concerns and urged the patient to stay for treatment as outlined. Patient continued to refuse. I then discussed potential less ideal alternatives to diagnostic/treatment plan as outlines and patient refused. I recommended that the patient follow-up with primary care physician FATMATA or return to the Emergency Department at any time for further treatment. 2300 --CT exams resulted after patient left. CT of the chest was interpreted by radiology: IMPRESSION: 1. ? No acute thoracic injuries are identified. 2. ? Moderate bilateral bronchial wall thickening suggesting changes of bronchitis or bronchial edema. No gross pulmonary infiltrates. 3. ? Moderate-severe emphysematous changes in the upper lung brady with chronic nodular scarring and atelectasis in the posterior right upper lobe which is unchanged to mildly regressed since 12/26/2020. 4. ? Mildly enlarged mediastinal nodes, nonspecific. 5. ? Moderate coronary artery calcification. 6. ? Question mild dilatation of the right atrium and ventricle and mild-moderate changes of pulmonary arterial hypertension with moderate mitral valvular thickening, correlate clinically for mitral stenosis. 7. ? Additional nonemergent findings detailed above. CT the abdomen pelvis was interpreted by radiology: IMPRESSION: 1. ? Acute nondisplaced to mildly displaced fractures of the left L2-L4 transverse processes. No paraspinous hematoma. 2. ? Moderate chronic appearing superior endplate compression deformity of L1, although new since 12/26/2020. 3. ? There is a soft tissue hematoma in the left gluteal subcutaneous fat, estimated volume 400 mL. No evidence of active hemorrhage. No deep intramuscular or intrapelvic extension. 4. ? Mild rugal fold thickening in the stomach is chronic and similar to 202, possibly anatomic variation or mild changes of chronic gastritis. 5. ? Mild fatty infiltration of the liver and mild hepatomegaly. 6. ? Moderate-severe distal colonic diverticulosis without diverticulitis. 7. ? 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 Mild stenosis in the proximal SMA unchanged. 8. ? Additional nonemergent findings detailed above. CT of the thoracic spine interpreted by radiology: IMPRESSION: 1. ? No acute thoracic spine injuries. 2. ? Please see chest CT report for additional thoracic findings. CT of the lumbar spine interpreted by radiology: IMPRESSION: 1. ? Acute nondisplaced to mildly displaced fractures of the left L2-L4 transverse processes. No other acute fractures are identified. 2. ? Chronic appearing moderate superior endplate compression deformity of L1. 3. ? Osteopenia and osteoarthritic changes. 4. ? Please see CT abdomen and pelvis report for additional findings. I called patient and relayed results. I encouraged the patient to follow-up with her primary care physician tomorrow. Patient will be sent letter with her CT imaging results. She was instructed to return to the ED at any time for further work-up and treatment. Lab Data Lab results reviewed: Yes I reviewed the patient's lab results. Labs: Laboratory Tests Range/Units 08/16/22 08/16/22 08/16/22 19:51 19:51 19:51 WBC (4.4-10.8) 10^3/uL 4.99 RBC (3.93-5.22) 10^6/uL 3.01 L Hgb (11.2-15.7) g/dL 11.0 L Hct (36.0-46.0) % 32.7 L MCV (80-95) fL 109 H MCH (27.0-33.0) pg 36.5 H MCHC (32.0-36.0) % 33.6 RDW (11.7-14.6) % 17.3 H Plt Count (130-400) 10^3/uL 289 MPV (8.0-11.0) fL 9.5 Immature Gran % 1.4 Neutrophils % 44.3 Lymphocytes % 38.1 Monocytes % 14.4 Eosinophils % 0.6 Basophils % 1.2 Nucleated RBC % (0.0-0.3) % 0.0 Absolute Neutrophils (1.2-6.7) 10^3/uL 2.21 Absolute Lymphocytes (1.2-3.4) 10^3/uL 1.90 Absolute Monocytes (0.1-0.8) 10^3/uL 0.72 Absolute Eosinophils (0.0-0.7) 10^3/uL 0.03 Absolute Basophils (0.0-0.2) 10^3/uL 0.06 RBC Morphology See Below Anisocytosis 1+ Macrocytosis 1+ PT (9.3-11.0) sec 9.6 INR (0.9-1.1) 0.9 APTT (21.5-31.9) sec 23.4 Sodium (136-145) mmol/L 140 Potassium (3.5-5.1) mmol/L 3.5 Chloride (98-107) mmol/L 104 Carbon Dioxide (21.0-32.0) mmol/L 29.6 Anion Gap (3-11) mmol/L 6.4 BUN (7-18) mg/dL 10 Creatinine (0.55-1.02) mg/dL 0.6 Est GFR (CKD-EPI 2020) (mL/min/1.73m2) 102.06 Glucose (74-106) mg/dL 94 Calcium (8.5-10.1) mg/dL 8.3 L Magnesium (1.8-2.4) mg/dL 1.8 Total Bilirubin (0.2-1.0) mg/dL 0.3 AST (15-37) U/L 52 H ALT (14-59) U/L 23 Alkaline Phosphatase (46-116) U/L 107 Total Protein (6.4-8.2) g/dL 6.7 Albumin (3.4-5.0) g/dL 3.0 L HPI General Mode of arrival: ambulatory . Date/Time Provider Initiated Documentation: 08/16/22 19:33 . Limitations to Documentation: no limitations . Information obtained by: patient . HPI Narrative: 62-year-old female with multiple medical problems including history of alcoholism, frequent falls, here with chief complaint of bruising. Patient notes she fell and injured her pelvis and back a few weeks ago. She was seen here in the emergency department and found to have a hematoma and L1 compression fracture 07/21/2022. She was seen here on 08/03/2022 after another fall and there was plan for CT of her chest abdomen pelvis. She left AMA prior to completion of this work-up. Patient returns today with concern that her bruising is now extending down her lateral left leg. No new injury. Related Data Home Medications Medication Instructions Recorded Confirmed gabapentin 300 mg capsule 300 mg PO TID 08/13/20 08/16/22 multivitamin (Multiple Vitamins 1 tab PO DAILY #30 tabs 08/13/20 08/16/22 tablet) thiamine mononitrate (vit B1) 100 100 mg PO DAILY #30 tabs 08/13/20 08/16/22 mg tablet (Vitamin B-1 (mononitrate)) aspirin 81 mg tablet,delayed 81 mg PO DAILY #30 tabs 12/27/20 08/16/22 release magnesium oxide 400 mg (241.3 mg 400 mg PO DAILY #30 tabs 12/27/20 08/16/22 magnesium) tablet omeprazole 20 mg capsule,delayed 20 mg PO DAILY 09/16/21 08/16/22 release albuterol sulfate 90 mcg/actuation 2 puff inhalation Q6H PRN 01/18/22 07/21/22 aerosol inhaler shortness of breath or wheezing #8.5 grams fluticasone 250 mcg-salmeterol 50 1 inh inhalation BID 07/19/22 08/16/22 mcg/dose blistr powdr for inhalation (Advair Diskus) tiotropium 2.5 mcg-olodaterol 2.5 2 puff inhalation Q24H #4 grams 07/19/22 08/16/22 mcg/actuation mist for inhalation (Stiolto Respimat) Previous Rx's Medication Instructions Recorded multivitamin (Multiple Vitamins 1 tab PO DAILY #30 tabs 08/13/20 tablet) thiamine mononitrate (vit B1) 100 100 mg PO DAILY #30 tabs 08/13/20 mg tablet (Vitamin B-1 (mononitrate)) aspirin 81 mg tablet,delayed 81 mg PO DAILY #30 tabs 12/27/20 release magnesium oxide 400 mg (241.3 mg 400 mg PO DAILY #30 tabs 12/27/20 magnesium) tablet albuterol sulfate 90 mcg/actuation 2 puff inhalation Q6H PRN 01/18/22 aerosol inhaler shortness of breath or wheezing #8.5 grams tiotropium 2.5 mcg-olodaterol 2.5 2 puff inhalation Q24H #4 grams 07/19/22 mcg/actuation mist for inhalation (Stiolto Respimat) Allergies Allergy/AdvReac Type Severity Reaction Status Date / Time bacitracin Allergy Mild localized Verified 07/21/22 13:22 [From Neosporin redness ([id number])] neomycin Allergy Mild localized Verified 07/21/22 13:22 [From Neosporin redness ([id number])] polymyxin B Allergy Mild localized Verified 07/21/22 13:22 [From Neosporin redness ([id number])] General Stated Complaint: Orthopedic RAHEEM: 4 Review of Systems All systems reviewed & are unremarkable except as noted in HPI and below Constitutional Constitutional: Denies fever(s) Cardiovascular Cardiovascular: Denies chest pain and Denies dyspnea Respiratory Respiratory: Denies dyspnea Gastrointestinal Gastrointestinal: Denies abdominal pain PFSH All Active Problems (Updated 08/16/22 @ 23:08 by Mahesh Ortega MD) Contusion of sacrum (Acute) Lumbar contusion (Acute) Closed compression fracture of L1 vertebra (Acute) Eloped from emergency department (Acute) Fall at home (Acute) Back contusion (Acute) Fracture of transverse process of lumbar vertebra (Acute) Calcification of coronary artery (Acute) Enlarged lymph nodes (Acute) Arterial atherosclerosis (Acute) Hematoma (Acute) Anemia (Chronic) Hypocalcemia (Acute) Pulmonary nodule (Acute) COPD (chronic obstructive pulmonary disease) (Chronic) Emphysema lung (Acute) Nicotine dependence, cigarettes, uncomplicated (Acute) Atherosclerosis (Acute) Gastric wall thickening (Acute) Stenosis of right internal carotid artery (Acute) Mass of upper lobe of right lung (Acute) Alcohol abuse (Chronic) Dehydration (Acute) Diarrhea (Acute) Hypomagnesemia (Chronic) Discharge planning issues (Acute) DVT prophylaxis (Acute) B12 deficiency (Acute) Ascites (Acute) Chronic liver disease (Chronic) Weight loss, non-intentional (Acute) Alcoholism (Acute) Macrocytic anemia (Acute) Early satiety (Acute) Folate deficiency (Acute) Hypomagnesemia (Acute) Hypokalemia (Acute) Leg pain (Acute) Cellulitis (Acute) Bilateral leg ulcer (Acute) Medical History Alcohol abuse Ascites Bilateral leg pain Bilateral lower extremity edema Cachexia Chest pain Chronic vomiting COPD (chronic obstructive pulmonary disease) Diastolic dysfunction Folate deficiency anemia Frequent falls Gastroesophageal reflux disease Hair loss Hepatic fibrosis Hx pulmonary embolism Hypomagnesemia Malnutrition Pancreatitis Tobacco abuse Tobacco dependence syndrome Ulcer of lower extremity Unintentional weight loss Vitamin D deficiency Surgical History ENT/Nasal surgery (~2007) foot surgery (~2000) Ligation of fallopian tube (~1999) punch biopsy, skin of ankle, right lateral (11/24/16) negative for malignancy, sparse inflammation and reactive blood vessels Family History Father Lung disease Social History Smoking/Tobacco Use Status: Current every day Tobacco Type: cigarettes Tobacco: How many years used: 45 Quit status: considering quitting Second Hand Exposure: Yes Smoking risk assessment performed?: Yes Alcohol Intake: current Alcohol Intake frequency: a few times a week Alcohol type: wine Drug use: Rarely Substance use type: marijuana Current gender identity: female Do you feel safe at home: Yes Do you feel safe in your relationship?: Yes Additional Social history: smokes < 1ppd History History Para 0 Hx # Term Pregnancies Multiple births Hx # Pregnancies Ectopic pregnancies AB induced Hx Number of Living Children AB spontaneous Exam Const General: cooperative and no acute distress HENMT Head: normocephalic and atraumatic Mouth: moist mucous membranes Eyes Conjunctivae: normal conjunctivae Neck Neck: trachea midline Resp Auscultation: clear to auscultation bilaterally, no rales, no rhonchi and no wheezes Cardio Rate: regular rate and not tachycardic Rhythm: regular rhythm GI Palpation: soft, not firm, no guarding, no masses, not rigid and nontender Back/Spine/Pelvis Cervical Spine: No cervical spinal tenderness and No step off deformity Thoracic/Lumbar Spine: paraspinal tenderness, lumbar spinal tenderness and other (swelling left lumbar paraspinal with hematoma) Pelvis: buttock ecchymosis and other (hematoma left pelvis) Coccyx: other (hematoma left pelvis) Skin General skin exam: no rashes or lesions noted Neuro General: patient alert, patient awake and tone normal Speech: speech normal Gait: normal gait Motor: muscle tone normal throughout Extrem General: full ROM and no edema Right lower extremity: hip/thigh Details: ecchymosis (laterally) Psych Appearance: grossly normal Mental Status: mental status grossly normal Course Vital Signs Vital signs: Vital Signs Temperature 36.6 C 08/16/22 19:00 Pulse 112 H 08/16/22 19:00 Respiratory Rate 20 08/16/22 19:00 Blood Pressure 131/90 08/16/22 19:00 Pulse Oximetry 98 08/16/22 19:00 Temperature 36.6 C 08/16/22 19:00 Temperature Source Tympanic 08/16/22 19:00 Pulse 112 H 08/16/22 19:00 Respiratory Rate 20 08/16/22 19:00 Respiratory Effort Normal, Non-Labored 08/16/22 19:10 Blood Pressure 131/90 08/16/22 19:00 Blood Pressure Position Sitting 08/16/22 19:00 Pulse Oximetry 98 08/16/22 19:00 Oxygen Delivery Method Room Air 08/16/22 19:00 Oxygen Flow Rate 0 08/16/22 19:00 Pain Level 10 08/16/22 19:00 Lab/Test Results Lab/Test Results: Laboratory Tests Range/Units 08/16/22 08/16/22 08/16/22 19:51 19:51 19:51 WBC (4.4-10.8) 10^3/uL 4.99 RBC (3.93-5.22) 10^6/uL 3.01 L Hgb (11.2-15.7) g/dL 11.0 L Hct (36.0-46.0) % 32.7 L MCV (80-95) fL 109 H MCH (27.0-33.0) pg 36.5 H MCHC (32.0-36.0) % 33.6 RDW (11.7-14.6) % 17.3 H Plt Count (130-400) 10^3/uL 289 MPV (8.0-11.0) fL 9.5 Immature Gran % 1.4 Neutrophils % 44.3 Lymphocytes % 38.1 Monocytes % 14.4 Eosinophils % 0.6 Basophils % 1.2 Nucleated RBC % (0.0-0.3) % 0.0 Absolute Neutrophils (1.2-6.7) 10^3/uL 2.21 Absolute Lymphocytes (1.2-3.4) 10^3/uL 1.90 Absolute Monocytes (0.1-0.8) 10^3/uL 0.72 Absolute Eosinophils (0.0-0.7) 10^3/uL 0.03 Absolute Basophils (0.0-0.2) 10^3/uL 0.06 RBC Morphology See Below Anisocytosis 1+ Macrocytosis 1+ PT (9.3-11.0) sec 9.6 INR (0.9-1.1) 0.9 APTT (21.5-31.9) sec 23.4 Sodium (136-145) mmol/L 140 Potassium (3.5-5.1) mmol/L 3.5 Chloride (98-107) mmol/L 104 Carbon Dioxide (21.0-32.0) mmol/L 29.6 Anion Gap (3-11) mmol/L 6.4 BUN (7-18) mg/dL 10 Creatinine (0.55-1.02) mg/dL 0.6 Est GFR (CKD-EPI 2020) (mL/min/1.73m2) 102.06 Glucose (74-106) mg/dL 94 Calcium (8.5-10.1) mg/dL 8.3 L Magnesium (1.8-2.4) mg/dL 1.8 Total Bilirubin (0.2-1.0) mg/dL 0.3 AST (15-37) U/L 52 H ALT (14-59) U/L 23 Alkaline Phosphatase (46-116) U/L 107 Total Protein (6.4-8.2) g/dL 6.7 Albumin (3.4-5.0) g/dL 3.0 L
--- NOTE | 2022-08-16 21:53 | DI.VRAD_ITS ---
PROCEDURE INFORMATION: Exam: CT Chest With Contrast; Diagnostic Exam date and time: 08/16/2022 8:39 PM Age: 62 years old Clinical indication: Other: Fall, left pelvic hematoma, left low back pain; Patient HX: Known lung mass-diagnosed in June TECHNIQUE: Imaging protocol: Diagnostic computed tomography of the chest with contrast. Radiation optimization: All CT scans at this facility use at least one of these dose optimization techniques: automated exposure control; mA and/or kV adjustment per patient size (includes targeted exams where dose is matched to clinical indication); or iterative reconstruction. Contrast material: OMNIPAQUE 350; Contrast volume: 100 ml; Contrast route: INTRAVENOUS (IV); COMPARISON: CT THORAX ABD/PEL CTA 12/26/2020 2:30 PM FINDINGS: Thyroid: The visualized thyroid gland is unremarkable. Lungs: Moderate-severe emphysematous changes in the upper lung brady, right greater than left. Chronic pleural/parenchymal nodular scarring in the posterior right upper lobe is unchanged to mildly regressed from 12/26/2020. Moderate bilateral bronchial wall thickening consistent with bronchitis or bronchial edema. No bronchiectasis. No bronchial occlusions. No infiltrates or edema. Mild dependent atelectasis in the lung bases. Pleural spaces: No pleural effusions. No pneumothorax. Heart: Question mild dilatation of the right atrium and ventricle. Moderate coronary artery calcification. Moderate mitral annular calcification, question mild mitral valvular thickening. Correlate clinically for evidence of mitral stenosis. Mediastinal space: The esophagus is largely contracted without gross abnormality. Lymph nodes: No supraclavicular or axillary adenopathy. Mildly enlarged mediastinal nodes in the AP window measuring up to 11 mm short axis. Borderline enlarged subcarinal node at 11 mm short axis. These are nonspecific. Vasculature: Moderate aortic ectasia/tortuosity and calcific atherosclerosis. No mediastinal hematoma. Mild-moderate dilatation of the central pulmonary arteries suggesting pulmonary arterial hypertension. Bones/joints: Chronic healed right lower posterior rib fractures. Osteopenia. No acute osseous abnormalities. Soft tissues: Soft tissues of the thoracic wall demonstrate no acute abnormality. IMPRESSION: 1. No acute thoracic injuries are identified. 2. Moderate bilateral bronchial wall thickening suggesting changes of bronchitis or bronchial edema. No gross pulmonary infiltrates. 3. Moderate-severe emphysematous changes in the upper lung brady with chronic nodular scarring and atelectasis in the posterior right upper lobe which is unchanged to mildly regressed since 12/26/2020. 4. Mildly enlarged mediastinal nodes, nonspecific. 5. Moderate coronary artery calcification. 6. Question mild dilatation of the right atrium and ventricle and mild-moderate changes of pulmonary arterial hypertension with moderate mitral valvular thickening, correlate clinically for mitral stenosis. 7. Additional nonemergent findings detailed above. PROCEDURE INFORMATION: Exam: CT Abdomen And Pelvis With Contrast Exam date and time: 08/16/2022 8:39 PM Age: 62 years old Clinical indication: Other: Fall, left pelvic hematoma, left low back pain; Patient HX: Known lung mass-diagnosed in June TECHNIQUE: Imaging protocol: Computed tomography of the abdomen and pelvis with contrast. Radiation optimization: All CT scans at this facility use at least one of these dose optimization techniques: automated exposure control; mA and/or kV adjustment per patient size (includes targeted exams where dose is matched to clinical indication); or iterative reconstruction. Contrast material: OMNIPAQUE 350; Contrast volume: 100 ml; Contrast route: INTRAVENOUS (IV); COMPARISON: CT THORAX ABD/PEL CTA 12/26/2020 2:30 PM FINDINGS: Mediastinal space: The visualized distal esophagus is largely contracted without gross abnormality. Liver: Mild generalized fatty infiltration of the liver. Mild hepatomegaly measuring 19.5 cm craniocaudal. Normal contour. No mass lesions. No intrahepatic biliary ductal dilatation. Gallbladder and bile ducts: Gallbladder is moderately distended but otherwise normal in appearance. Nondilated bile ducts for age. Pancreas: Moderate pancreatic atrophy with no acute pancreatic abnormalities. Spleen: Normal. No splenomegaly. Adrenal glands: Normal. No adrenal mass. Kidneys and ureters: No acute abnormalities. No hydronephrosis or hydroureter. No urinary tract stones are identified. There is a low-density circumscribed right renal cortical lesion suggesting renal cyst for which no further imaging evaluation is required. Stomach and bowel: Stomach is largely contracted. Nonspecific rugal fold thickening in the stomach is similar to 12/26/2020, possibly anatomic variation or changes of chronic gastritis. No ulcer crater. The small bowel is nondilated with no gross abnormality. The colon is largely contracted with no acute abnormality. Moderate-severe distal colonic diverticulosis with no changes of diverticulitis. Appendix: The appendix is normal in caliber and demonstrates no evidence of appendicitis. Intraperitoneal space: No free fluid or air. Vasculature: Moderate-severe calcific atherosclerosis. No acute vascular abnormalities. 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 Mild post ostial stenosis in the proximal SMA unchanged, less than 50%. Lymph nodes: No acute adenopathy. Chronic calcified nodes in the periportal region unchanged. Urinary bladder: The urinary bladder is partially contracted without gross abnormality. Reproductive: Unremarkable as visualized. Bones/joints: Acute nondisplaced fracture left L2 transverse process. Acute mildly displaced fracture left L3 transverse process. Acute nondisplaced fracture left L4 transverse process. Moderate anterior wedge compression deformity of the L1 superior endplate with 40% loss of anterior vertebral body height is new since 12/26/2020 but demonstrates chronic features currently, with anterior superior spurring and no paraspinous swelling. No hematoma or retropulsion. Moderate disc degenerative changes L3-L4. Slight degenerative retrolisthesis L5-S1 with mild disc space narrowing unchanged. Soft tissues: There is an 11.5 x 4.1 by 8.9 cm hematoma in the left gluteal subcutaneous fat, estimated volume 400 mL. No evidence of active hemorrhage. No deep intramuscular or intrapelvic extension. IMPRESSION: 1. Acute nondisplaced to mildly displaced fractures of the left L2-L4 transverse processes. No paraspinous hematoma. 2. Moderate chronic appearing superior endplate compression deformity of L1, although new since 12/26/2020. 3. There is a soft tissue hematoma in the left gluteal subcutaneous fat, estimated volume 400 mL. No evidence of active hemorrhage. No deep intramuscular or intrapelvic extension. 4. Mild rugal fold thickening in the stomach is chronic and similar to 202, possibly anatomic variation or mild changes of chronic gastritis. 5. Mild fatty infiltration of the liver and mild hepatomegaly. 6. Moderate-severe distal colonic diverticulosis without diverticulitis. 7. 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 Mild stenosis in the proximal SMA unchanged. 8. Additional nonemergent findings detailed above. Dictated and Authenticated by: Nikunj Sánchez MD. Ordering:BRIE Aragon MD
--- NOTE | 2022-08-16 21:59 | DI.VRAD_ITS ---
PROCEDURE INFORMATION: Exam: CT Thoracic Spine Without Contrast Exam date and time: 08/16/2022 8:39 PM Age: 62 years old Clinical indication: Other: Fall, l1 compression on xray, pain TECHNIQUE: Imaging protocol: Computed tomography of the thoracic spine without contrast. Radiation optimization: All CT scans at this facility use at least one of these dose optimization techniques: automated exposure control; mA and/or kV adjustment per patient size (includes targeted exams where dose is matched to clinical indication); or iterative reconstruction. COMPARISON: CT THORAX ABD/PEL CTA 12/26/2020 2:30 PM FINDINGS: Bones/joints: Osteopenia. No acute thoracic spine fractures. Thoracic spine alignment is normal. Multilevel minor disc space narrowing and chronic Schmorl's node formation in the mid and lower thoracic spine with multilevel mild anterior spurring. No canal stenosis. No significant foraminal stenosis. No paraspinous hematoma. Soft tissues: Unremarkable. Other findings: Please see chest CT report for additional thoracic findings. IMPRESSION: 1. No acute thoracic spine injuries. 2. Please see chest CT report for additional thoracic findings. PROCEDURE INFORMATION: Exam: CT Lumbar Spine Without Contrast Exam date and time: 08/16/2022 8:39 PM Age: 62 years old Clinical indication: Other: Fall, l1 compression on xray, pain TECHNIQUE: Imaging protocol: Computed tomography of the lumbar spine without contrast. Radiation optimization: All CT scans at this facility use at least one of these dose optimization techniques: automated exposure control; mA and/or kV adjustment per patient size (includes targeted exams where dose is matched to clinical indication); or iterative reconstruction. COMPARISON: CR XR LUMBAR SPINE COMPLETE 07/21/2022 12:53 PM FINDINGS: Bones/joints: Acute nondisplaced fracture left L2 transverse process. Acute mildly displaced fracture left L3 transverse process. Acute nondisplaced fracture left L4 transverse process. No other acute fractures are identified. There is moderate superior endplate anterior wedge compression deformity of L1 which is chronic in appearance with no definite acute fracture lines and no paraspinous swelling/edema. No retropulsion. Moderate disc degenerative changes with endplate sclerosis and vacuum disc formation L3-L4. Chronic mild disc space narrowing with 3 mm degenerative retrolisthesis and 3 mm annular disc bulge at L5-S1, unchanged. Mild posterior annular disc bulges L2-L3 through L4-L5 also noted. No canal stenosis. Mild left foraminal stenosis L5-S1 and L4-L5. Mild leftward convexity lumbar scoliotic curvature. Soft tissues: Left gluteal subcutaneous hematoma again noted. IMPRESSION: 1. Acute nondisplaced to mildly displaced fractures of the left L2-L4 transverse processes. No other acute fractures are identified. 2. Chronic appearing moderate superior endplate compression deformity of L1. 3. Osteopenia and osteoarthritic changes. 4. Please see CT abdomen and pelvis report for additional findings. Dictated and Authenticated by: Nikunj Sánchez MD. Ordering:BRIE Aragon MD
== END 2022-08-16 21:20 | disposition left against medical advice (07) ==
PROVIDERS: Emergency Provider Student in an Organized Health Care Education/Training Program; PCP Nurse Practitioner Family
DX: S32.020A Wedge compression fracture of second lumbar vertebra, initial encounter for closed fracture (principal); S32.030A Wedge compression fracture of third lumbar vertebra, initial encounter for closed fracture; S32.040A Wedge compression fracture of fourth lumbar vertebra, initial encounter for closed fracture; W19.XXXA Unspecified fall, initial encounter; Z53.20 Procedure and treatment not carried out because of patient's decision for unspecified reasons; J44.9 Chronic obstructive pulmonary disease, unspecified; S30.0XXA Contusion of lower back and pelvis, initial encounter
CPT/HCPCS: 74177; 80053; 99285; 71260; 83735; 85025; 85610; 85730; 99284; J3490

== ENCOUNTER 2022-10-12 10:10 | Emergency (ER) | payer BC, SELFPAY ==
[2022-10-12 10:10] VITALS: BP 134/91; PULSE 97; RESP 18; TEMP 36.9; O2SAT 100
--- NOTE | 2022-10-12 10:15 | DI.RAD_ITS ---
Exam(s) XR PORTABLE CHEST AP EXAM: XR PORTABLE CHEST AP CLINICAL HISTORY: dyspnea. TECHNIQUE: 2D digital imaging was performed. COMPARISON: CR XR CHEST 2V PA LATERAL from 10/20/2021 FINDINGS: Single AP portable view. Heart size is upper normal. The mediastinum is not widened. Lungs are clear. No infiltrates nor obvious pleural effusions. IMPRESSION: No acute pulmonary findings on this single AP portable view of the chest. DATA REPOSITORY: RADIATION DOSE DELIVERED:
--- NOTE | 2022-10-12 10:15 | RT.EKG_ITS ---
APPROVED REPORT Exam: Resting ECG Reason for Exam: dyspnea Patient Location: E HR:93 bpm ECG Measurements Heart Rate 93 AXIS [place] 140 P 65 QRSd 89 QRS 17 QT 428 T 39 QTc 533 Conclusion Sinus rhythm...normal P axis, V-rate 60- 99 Prolonged QT interval...QTc >500mS
[2022-10-12 10:35] LABS: Abs Immature Grans 0.03 10^3/uL (0.0-0.06); Absolute Basophil Count 0.05 10^3/uL (0.0-0.2); Absolute Eosinophil Count 0.01 10^3/uL (0.0-0.7); Absolute Lymphocyte Count 1.29 10^3/uL (1.2-3.4); Absolute Monocyte Count 0.56 10^3/uL (0.1-0.8); Absolute Neutrophil Count 5.06 10^3/uL (1.2-6.7); Basophils % 0.7; Eosinophils % 0.1; HGB 11.1 g/dL (11.2-15.7); Immature Grans % 0.4; Lymphocytes % 18.4; MCH 35.8 pg (27.0-33.0); MCHC 33.6 % (32.0-36.0); MCV 107 fL (80-95); MPV 10.2 fL (8.0-11.0); Neutrophils % 72.4; Platelet Count 220 10^3/uL (130-400); RDW 14.8 % (11.7-14.6); RDW-SD 57.2 fL
[2022-10-12 10:51] LABS: ALT 23 U/L (14-59); AST 66 U/L (15-37); Albumin 2.3 g/dL (3.4-5.0); Alkaline Phosphatase 127 U/L (46-116); Anion Gap 6.7 mmol/L (3-11); BUN 6 mg/dL (7-18); Bilirubin, Total 0.9 mg/dL (0.2-1.0); CO2 29.3 mmol/L (21.0-32.0); Calcium 6.8 mg/dL (8.5-10.1); Chloride 98 mmol/L (98-107); Estimated GFR 64.09 (mL/min/1.73m2); Glucose 99 mg/dL (74-106); Potassium 3.3 mmol/L (3.5-5.1); Sodium 134 mmol/L (136-145); Total Protein 5.9 g/dL (6.4-8.2)
[2022-10-12 10:58] LABS: Magnesium 0.7 mg/dL (1.8-2.4)
[2022-10-12 11:03] LABS: ETHANOL BLOOD < 3.0 mg/dL (<10)
--- NOTE | 2022-10-12 11:09 | ED.GENADUL_ITS ---
Discharge Plan Disposition Patient Disposition: Home Discharge Details Clinical Impression: Hypomagnesemia Primary Care Provider: Sara Patterson ED Provider: Dank Blanco Home Meds and New Rx's Prescriptions: Continued omeprazole 20 mg capsule,delayed release(DR/EC) 20 mg PO DAILY fluticasone propion-salmeterol [Advair Diskus] 250-50 mcg/dose blister with device 1 inh inhalation BID Stiolto Respimat 2.5-2.5 mcg/actuation mist 2 puff inhalation Q24H Qty: 4 12RF albuterol sulfate 90 mcg/actuation HFA aerosol inhaler 2 puff inhalation Q6H PRN (Reason: shortness of breath or wheezing) Qty: 8.5 12RF magnesium oxide 400 mg (241.3 mg magnesium) tablet 400 mg PO DAILY Qty: 30 0RF aspirin 81 mg tablet,delayed release (DR/EC) 81 mg PO DAILY Qty: 30 0RF multivitamin [Multiple Vitamins] Tablet 1 tab PO DAILY Qty: 30 0RF thiamine mononitrate (vit B1) [Vitamin B-1 (mononitrate)] 100 mg Tablet 100 mg PO DAILY Qty: 30 0RF gabapentin 300 mg Capsule 300 mg PO TID Discharge Instructions Instructions: Hypomagnesemia (ED) Additional Instructions: Please contact your primary care provider for additional follow-up instructions. Specifically on proper nutrition to prevent future episodes of hypomagnesemia. Referrals: Sara Patterson [Primary Care Provider] - Medical Decision Making Patient with an acute episode of weakness associate with anxiety and possibly high heart rate. Patient with a known history of hypomagnesemia and this could certainly explain the symptoms. At the time of presentation she does not appear short of breath. COPD exacerbation and pneumonia certainly are possible but the patient has no fever. And at this time she demonstrates no signs of significant COPD exacerbation she has no wheezing. EKG was obtained and shows no significant ectopy or dysrhythmia. Patient now appears resting comfortably with stable vitals. Will replete magnesium and have discussed with the patient proper nutritional intake and alcohol reduction to abstention. Differential Diagnosis Differential Diagnosis: COPD/hypomagnesemia/cardiac dysrhythmia Medical Records Medical records reviewed: Yes I reviewed the patient's medical records. Imaging Data Radiologic Study: Attestation: I personally reviewed and interpreted this imaging study as follows: Imaging: X-Ray My impression: No acute cardiopulmonary finding Lab Data Lab results reviewed: Yes I reviewed the patient's lab results. Lab results narrative: Hypomagnesemia ECG Data Attestation: I personally reviewed and interpreted this ECG (s) as follows: (No significant dysrhythmia no ST changes consistent with ischemia) Prior ECG tracings: available for review HPI General Date/Time Provider Initiated Documentation: 10/12/22 10:16 . HPI Narrative: Patient with a history of COPD and chronic alcoholism went to the urgent care center and reported difficulty breathing and she was noted to have a high heart rate. EMS was contacted to transport patient to the emergency department. Upon EMS arrival the patient's heart rate was 90 and she had an oxygen saturation that was acceptable on room air. Patient is a current every day smoker. Reports that she has some dyspnea on exertion but not at rest. She continues to smoke. She denies any chest pain. She has a chronic cough but is not worse than normal and she denies any fevers. She is also a current daily consumer of alcohol. Patient smokes multiple cigarettes a day. She drinks about 3 martinis a day. Denies any history of alcohol withdrawal syndrome or withdrawal seizures. She uses albuterol through an MDI but not through a nebulizer machine. States that she has a history of hypomagnesemia and poor nutritional intake. States all she had for dinner yesterday with some fruit. Patient states that she was walking from her house to the urgent care center which is just across the street and she felt anxious that she was short of breath and would not get better so she presented to the urgent care center. Related Data Home Medications Medication Instructions Recorded Confirmed gabapentin 300 mg capsule 300 mg PO TID 08/13/20 10/12/22 multivitamin (Multiple Vitamins 1 tab PO DAILY #30 tabs 08/13/20 10/12/22 tablet) thiamine mononitrate (vit B1) 100 100 mg PO DAILY #30 tabs 08/13/20 10/12/22 mg tablet (Vitamin B-1 (mononitrate)) aspirin 81 mg tablet,delayed 81 mg PO DAILY #30 tabs 12/27/20 10/12/22 release magnesium oxide 400 mg (241.3 mg 400 mg PO DAILY #30 tabs 12/27/20 10/12/22 magnesium) tablet omeprazole 20 mg capsule,delayed 20 mg PO DAILY 09/16/21 10/12/22 release albuterol sulfate 90 mcg/actuation 2 puff inhalation Q6H PRN 01/18/22 10/12/22 aerosol inhaler shortness of breath or wheezing #8.5 grams fluticasone 250 mcg-salmeterol 50 1 inh inhalation BID 07/19/22 10/12/22 mcg/dose blistr powdr for inhalation (Advair Diskus) tiotropium 2.5 mcg-olodaterol 2.5 2 puff inhalation Q24H #4 grams 07/19/22 10/12/22 mcg/actuation mist for inhalation (Stiolto Respimat) Previous Rx's Medication Instructions Recorded multivitamin (Multiple Vitamins 1 tab PO DAILY #30 tabs 08/13/20 tablet) thiamine mononitrate (vit B1) 100 100 mg PO DAILY #30 tabs 08/13/20 mg tablet (Vitamin B-1 (mononitrate)) aspirin 81 mg tablet,delayed 81 mg PO DAILY #30 tabs 12/27/20 release magnesium oxide 400 mg (241.3 mg 400 mg PO DAILY #30 tabs 12/27/20 magnesium) tablet albuterol sulfate 90 mcg/actuation 2 puff inhalation Q6H PRN 01/18/22 aerosol inhaler shortness of breath or wheezing #8.5 grams tiotropium 2.5 mcg-olodaterol 2.5 2 puff inhalation Q24H #4 grams 07/19/22 mcg/actuation mist for inhalation (Stiolto Respimat) Allergies Allergy/AdvReac Type Severity Reaction Status Date / Time bacitracin Allergy Mild localized Verified 10/12/22 10:14 [From Neosporin redness ([id number])] neomycin Allergy Mild localized Verified 10/12/22 10:14 [From Neosporin redness ([id number])] polymyxin B Allergy Mild localized Verified 10/12/22 10:14 [From Neosporin redness ([id number])] General Stated Complaint: [facility] RAHEEM: 3 Review of Systems Narrative: REVIEW OF SYSTEMS: CONST: Negative for fever, body aches and chills. HENT: Negative for neck pain/stiffness, headache, congestion, sore throat, swelling. EYES: Negative for discharge/pain or vision changes. RESP: + for cough/no hemoptysis and mild shortness of breath. CV: Negative chest pain, + difficulty breathing, palpitations. ABD: Negative pain, nausea, vomiting. : Negative increase frequency, dysuria, blood in urine or stool. MUSC: Negative for muscle aches, edema. SKIN: Negative rash, lesions/sores. NEURO: Negative headache, dizziness, weakness. PFSH All Active Problems (Updated 10/12/22 @ 12:51 by Dank Blanco MD) Pulmonary nodule (Acute) COPD (chronic obstructive pulmonary disease) (Chronic) Emphysema lung (Acute) Nicotine dependence, cigarettes, uncomplicated (Acute) Atherosclerosis (Acute) Gastric wall thickening (Acute) Stenosis of right internal carotid artery (Acute) Mass of upper lobe of right lung (Acute) Alcohol abuse (Chronic) Dehydration (Acute) Diarrhea (Acute) Hypomagnesemia (Chronic) Discharge planning issues (Acute) DVT prophylaxis (Acute) B12 deficiency (Acute) Ascites (Acute) Chronic liver disease (Chronic) Weight loss, non-intentional (Acute) Alcoholism (Acute) Macrocytic anemia (Acute) Early satiety (Acute) Folate deficiency (Acute) Hypomagnesemia (Acute) Hypokalemia (Acute) Leg pain (Acute) Cellulitis (Acute) Bilateral leg ulcer (Acute) Medical History Alcohol abuse Ascites Bilateral leg pain Bilateral lower extremity edema Cachexia Chest pain Chronic vomiting COPD (chronic obstructive pulmonary disease) Diastolic dysfunction Folate deficiency anemia Frequent falls Gastroesophageal reflux disease Hair loss Hepatic fibrosis Hx pulmonary embolism Hypomagnesemia Malnutrition Pancreatitis Tobacco abuse Tobacco dependence syndrome Ulcer of lower extremity Unintentional weight loss Vitamin D deficiency Surgical History ENT/Nasal surgery (~2007) foot surgery (~2000) Ligation of fallopian tube (~1999) punch biopsy, skin of ankle, right lateral (11/24/16) negative for malignancy, sparse inflammation and reactive blood vessels Family History Father Lung disease Social History Smoking/Tobacco Use Status: Current every day Tobacco Type: cigarettes Tobacco: How many years used: 45 Quit status: considering quitting Second Hand Exposure: Yes Smoking risk assessment performed?: Yes Alcohol Intake: current Alcohol Intake frequency: a few times a week Alcohol type: wine Drug use: Rarely Substance use type: marijuana Current gender identity: female Do you feel safe at home: Yes Do you feel safe in your relationship?: Yes Additional Social history: smokes < 1ppd History History Para 0 Hx # Term Pregnancies Multiple births Hx # Pregnancies Ectopic pregnancies AB induced Hx Number of Living Children AB spontaneous Exam Narrative Exam Narrative: GENERAL APPEARANCE NAD, activity normal for age, well developed/ well nourished, no cyanosis, pallor, or diaphoresis. EYES lids/conjunctiva normal. EARS/NOSE/THROAT Mucous membranes moist, nares normal, lips/teeth normal uvula midline without oral pharyngeal erythema, exudate or swelling TMs normal bilaterally. No lymphangitis/lymphedema. HEAD/NECK normocephalic atraumatic, no facial trauma, neck is supple. RESPIRATORY respiratory effort normal, speaks in full sentences, no tripod position, no accessory muscle use. Lungs clear to auscultation + diffuse rhonchi, no wheezes, rales CARDIAC Regular rate and rhythm, no edema. ABDOMINAL Soft, ND/NT. No evidence of fluid wave. No pulsatile masses on exam, rebound tenderness, Ling sign or pain over Mcburney's point. MUSCLES/EXTREMITIES No abnormal range of motion, no swelling. SKIN Warm, pink and dry. No rashes, dermatoses, petechiae or lesions. NEUROLOGICAL Speech is clear and appropriate. Normal level of consciousness. Gait and coordination are normal. 5/5 strength in all extremities. PSYCH Normal mood and affect. Judgement/competence is appropriate Course Reevaluation(s) Time: 12:02 Reevaluation: Patient ambulatory in ED with no shortness of breath no difficulty ambulating. Plan is to DC after magnesium infusion follow-up as an outpatient PCP Vital Signs Vital signs: Vital Signs Temperature 36.9 C 10/12/22 10:10 Pulse 97 H 10/12/22 10:10 Respiratory Rate 18 10/12/22 10:10 Blood Pressure 134/91 H 10/12/22 10:10 Pulse Oximetry 100 10/12/22 10:10 Temperature 36.9 C 10/12/22 10:10 Pulse 97 H 10/12/22 10:10 Respiratory Rate 18 10/12/22 10:10 Respiratory Effort Normal 10/12/22 10:29 Respiratory Depth Normal 10/12/22 10:29 Respiratory Pattern Normal 10/12/22 10:29 Blood Pressure 134/91 H 10/12/22 10:10 Blood Pressure Position Sitting 10/12/22 10:10 Pulse Oximetry 100 10/12/22 10:10 Oxygen Delivery Method Room Air 10/12/22 10:10 Oxygen Flow Rate 0 10/12/22 10:10 Pain Level 0 10/12/22 10:10 Lab/Test Results Lab/Test Results: Laboratory Tests Range/Units 10/12/22 10/12/22 10/12/22 10:23 10:23 10:23 WBC (4.4-10.8) 10^3/uL 7.00 RBC (3.93-5.22) 10^6/uL 3.10 L Hgb (11.2-15.7) g/dL 11.1 L Hct (36.0-46.0) % 33.0 L MCV (80-95) fL 107 H MCH (27.0-33.0) pg 35.8 H MCHC (32.0-36.0) % 33.6 RDW (11.7-14.6) % 14.8 H Plt Count (130-400) 10^3/uL 220 MPV (8.0-11.0) fL 10.2 Immature Gran % 0.4 Neutrophils % 72.4 Lymphocytes % 18.4 Monocytes % 8.0 Eosinophils % 0.1 Basophils % 0.7 Nucleated RBC % (0.0-0.3) % 0.0 Absolute Neutrophils (1.2-6.7) 10^3/uL 5.06 Absolute Lymphocytes (1.2-3.4) 10^3/uL 1.29 Absolute Monocytes (0.1-0.8) 10^3/uL 0.56 Absolute Eosinophils (0.0-0.7) 10^3/uL 0.01 Absolute Basophils (0.0-0.2) 10^3/uL 0.05 Sodium (136-145) mmol/L 134 L Potassium (3.5-5.1) mmol/L 3.3 L Chloride (98-107) mmol/L 98 Carbon Dioxide (21.0-32.0) mmol/L 29.3 Anion Gap (3-11) mmol/L 6.7 BUN (7-18) mg/dL 6 L Creatinine (0.55-1.02) mg/dL 1.0 Est GFR (CKD-EPI 2020) (mL/min/1.73m2) 64.09 Glucose (74-106) mg/dL 99 Calcium (8.5-10.1) mg/dL 6.8 L Magnesium (1.8-2.4) mg/dL 0.7 L Total Bilirubin (0.2-1.0) mg/dL 0.9 AST (15-37) U/L 66 H ALT (14-59) U/L 23 Alkaline Phosphatase (46-116) U/L 127 H Total Protein (6.4-8.2) g/dL 5.9 L Albumin (3.4-5.0) g/dL 2.3 L Ethyl Alcohol Cancelled < 3.0 PAWSS Pt Consumed Any Amount of Alcohol Within the Last 30 days OR had positive NAYA Upon Admission: Yes Have you Been Recently Intoxicated or Drunk Within the Last 30 days?: Yes Have you Ever Experienced Previous Episodes of Alcohol Withdrawal?: No Have you ever Experienced Withdrawal Seizures?: No Have you ever Experienced Delirium Tremens(DT)s?: No Have you ever undergone Alcohol Rehabilitation Treatment (i.e, inpt ot outpatient treatment programs)?: No Have you ever Experienced Blackouts?: No Have you ever Combined Alcohol with other Downers within the last 90 days?: No Have you ever Combined Alcohol with any other Substance of Abuse during the last 90 days?: No Positive Blood Alcohol level on Presentation? [PCS.BAL]: No Evidence of Increased Autonomic Activity (i.e. HR>120, tremor, sweating, agitation, nausea)?: No Result: 1
[2022-10-12] MEDS: MAGNESIUM SULFATE 1 GM/100 ML BAG IVPB (11:24)
[2022-10-12 12:34] VITALS: BP 158/81; PULSE 98; RESP 18; O2SAT 99
--- NOTE | 2022-10-13 12:23 | NUR.NOTE ---
Nursing Note: Accessed pt chart to determine number of EKG orders. One EKG order was deleted.
== END 2022-10-12 12:58 | disposition home or self-care (01) ==
PROVIDERS: Emergency Provider Emergency Medicine; PCP Nurse Practitioner Family
DX: E83.42 Hypomagnesemia (principal); R53.1 Weakness; R11.0 Nausea
CPT/HCPCS: 80053; 93005; 96365; 99284; 71045; 80320; 83735; 85025; 93010; J3475

== ENCOUNTER 2022-11-09 09:57 | Emergency (ER) | payer BC, SELFPAY ==
[2022-11-09] VITALS (31 sets, daily range): BP systolic 101–161; BP diastolic 75–111; PULSE 87–110; RESP 10–22; TEMP 37; O2SAT 92–99
--- NOTE | 2022-11-09 10:45 | RT.EKG_ITS ---
APPROVED REPORT Exam: Resting ECG Reason for Exam: weakness Patient Location: E HR:97 bpm ECG Measurements Heart Rate 97 AXIS LA 171 P 61 QRSd 122 QRS 40 QT 423 T 27 QTc 534 Conclusion Sinus rhythm...normal P axis, V-rate 60- 99 Ventricular premature complex...V complex w/ short R-R interval Probable left atrial enlargement...P >50mS, <-0.10mV V1 Right bundle branch block...QRSd>120, terminal axis(90,270) Probable anterolateral infarct, old...Q>35mS, abnrm ST-T, V2-V6,I,aVL
[2022-11-09 11:11] LABS: Abs Immature Grans 0.05 10^3/uL (0.0-0.06); Absolute Basophil Count 0.05 10^3/uL (0.0-0.2); Absolute Eosinophil Count 0.02 10^3/uL (0.0-0.7); Absolute Lymphocyte Count 1.01 10^3/uL (1.2-3.4); Absolute Monocyte Count 0.71 10^3/uL (0.1-0.8); Basophils % 0.6; Eosinophils % 0.3; HCT 36.4 % (36.0-46.0); HGB 12.5 g/dL (11.2-15.7); Immature Grans % 0.6; Lymphocytes % 12.7; MCH 36.3 pg (27.0-33.0); MCHC 34.3 % (32.0-36.0); MCV 106 fL (80-95); MPV 10.2 fL (8.0-11.0); Monocytes % 8.9; Neutrophils % 76.9; Platelet Count 242 10^3/uL (130-400); RBC 3.44 10^6/uL (3.93-5.22); RDW 15.2 % (11.7-14.6); RDW-SD 59.1 fL; WBC 7.94 10^3/uL (4.4-10.8)
[2022-11-09] MEDS: LORazepam 2 MG/ML VIAL 1 MG IVP (11:13)
[2022-11-09] MEDS: Lactated Ringers 1,000 ML 1000 ML IV (11:13)
[2022-11-09 11:23] LABS: Ammonia 46 umol/L (11-32)
[2022-11-09 11:29] LABS: ALT 35 U/L (14-59); AST 85 U/L (15-37); Alkaline Phosphatase 133 U/L (46-116); Anion Gap 10.5 mmol/L (3-11); BUN 8 mg/dL (7-18); Bilirubin, Total 0.9 mg/dL (0.2-1.0); CO2 29.5 mmol/L (21.0-32.0); CREATININE 0.8 mg/dL (0.55-1.02); Calcium 8.3 mg/dL (8.5-10.1); Chloride 93 mmol/L (98-107); Estimated GFR 83.78 (mL/min/1.73m2); Glucose 112 mg/dL (74-106); Lipase 34 U/L (16-77); Magnesium 1.3 mg/dL (1.8-2.4); Sodium 133 mmol/L (136-145); Total Protein 7.2 g/dL (6.4-8.2)
[2022-11-09 11:31] LABS: PHOSPHORUS 3.5 mg/dL (2.6-4.7); Troponin I < 50 ng/L (<or=60)
[2022-11-09 11:33] LABS: Potassium 2.7 mmol/L (3.5-5.1)
[2022-11-09 11:35] LABS: ETHANOL BLOOD < 3.0 mg/dL (<10)
[2022-11-09] MEDS: MAGNESIUM SULFATE 2 GM/50 ML BAG IVPB (12:07)
[2022-11-09] MEDS: Potassium Chloride 20 MEQ TABCR 40 MEQ PO (12:07)
[2022-11-09] MEDS: POTASSIUM CHLORIDE 10 MEQ/100 ML BAG 100 MEQ IVPB (12:19)
--- NOTE | 2022-11-09 13:25 | DI.RAD_ITS ---
Exam(s) XR CHEST 2V PA LATERAL EXAM: XR CHEST 2V PA LATERAL CLINICAL HISTORY: weakness. TECHNIQUE: 2D digital imaging was performed. COMPARISON: CR XR PORTABLE CHEST AP from 10/12/2022 FINDINGS: 2 views: Heart size is normal. The mediastinum is not widened. Lungs are clear. No infiltrates nor pleural effusions. Right upper lobe scarring noted. Platelike atelectasis in the right lung base posterior basal segmen t. Mild scoliosis convex right in the thoracic spine noted. No compression fractures. IMPRESSION: No acute pulmonary infiltrates.Right upper lobe scarring. Platelike atelectasis in the right lung ba se. DATA REPOSITORY: RADIATION DOSE DELIVERED:
--- NOTE | 2022-11-09 13:30 | RT.EKG_ITS ---
APPROVED REPORT Exam: Resting ECG Reason for Exam: weakness Patient Location: E HR:89 bpm ECG Measurements Heart Rate 89 AXIS MS 170 P 59 QRSd 112 QRS 48 QT 422 T 32 QTc 515 Conclusion Sinus rhythm...normal P axis, V-rate 60- 99 Probable left atrial enlargement...P >50mS, <-0.10mV V1 Incomplete right bundle branch block...QRSd >112, terminal axis(90,270)no major chANGE VS PRIOR Prolonged QT interval...QTc >500mS
[2022-11-09 13:38] LABS: Bilirubin Negative (Negative); Blood Negative (Negative); Clarity Sl Cloudy (Clear); Glucose Negative (Negative); Ketones Negative (Negative); Leukocyte Esterase Trace (Negative); Nitrite Positive (Negative); Specific Gravity 1.015 (1.005-1.025); Urobilinogen 0.2 mg/dL (Up to 0.2); pH 8.5 (5-8)
[2022-11-09 13:43] LABS: Bacteria Many HPF (Negative); C & S Indicated? Yes; Casts Negative LPF (Negative); Crystals Negative HPF (Negative); Epithelial Cells Rare HPF (Negative); Mucus Negative (Negative); RBC 0-2 HPF (0-2)
--- NOTE | 2022-11-10 17:23 | ED.GENADUL_ITS ---
Discharge Plan Disposition Patient Disposition: Home Discharge Details Clinical Impression: Hypomagnesemia, Hypokalemia, Alcoholism, UTI (urinary tract infection) Primary Care Provider: MARIANO KEARNEY ED Provider: Leanna Wang Home Meds and New Rx's Prescriptions: New magnesium 250 mg tablet 250 mg PO DAILY Qty: 20 0RF potassium chloride 10 mEq capsule, extended release 10 meq PO BID Qty: 20 0RF thiamine HCl (vitamin B1) 100 mg tablet 100 mg PO DAILY Qty: 30 0RF lactulose 10 gram packet 20 g PO BID Qty: 15 0RF cephalexin 500 mg capsule 500 mg PO BID 7 Days Qty: 14 0RF Continued omeprazole 20 mg capsule,delayed release(DR/EC) 20 mg PO DAILY fluticasone propion-salmeterol [Advair Diskus] 250-50 mcg/dose blister with device 1 inh inhalation BID Stiolto Respimat 2.5-2.5 mcg/actuation mist 2 puff inhalation Q24H Qty: 4 12RF albuterol sulfate 90 mcg/actuation HFA aerosol inhaler 2 puff inhalation Q6H PRN (Reason: shortness of breath or wheezing) Qty: 8.5 12RF magnesium oxide 400 mg (241.3 mg magnesium) tablet 400 mg PO DAILY Qty: 30 0RF aspirin 81 mg tablet,delayed release (DR/EC) 81 mg PO DAILY Qty: 30 0RF multivitamin [Multiple Vitamins] Tablet 1 tab PO DAILY Qty: 30 0RF thiamine mononitrate (vit B1) [Vitamin B-1 (mononitrate)] 100 mg Tablet 100 mg PO DAILY Qty: 30 0RF gabapentin 300 mg Capsule 300 mg PO TID Discharge Instructions Instructions: Urinary Tract Infection in Women (ED), Hypokalemia (ED), Hypomagn esemia (ED) Additional Instructions: Please take the potassium as prescribed, take the magnesium as prescribed, take the antibiotic for urinary tract infection, Keflex Take the magnesium and potassium, your levels are low Take the thiamine daily Take your lactulose daily If you would like to consider detoxing yourself off alcohol, I recommend by doing decreasing by 1 drink daily Return immediately should you have new or worsening complaints Do not stop drinking alcohol abruptly Referrals: MARIANO KEARNEY, [employer] [Primary Care Provider] - Discharge Data Discharge Date/Time-TO BE ENTERED AT DEPARTURE: 11/09/22 14:05 Medical Decision Making 62-year-old female, known to this facility, history of alcoholism, no evidence of significant alcohol withdrawal on exam, no leukocytosis potassium of 2.7, magnesium of 1.3, supplemented with IV potassium, 20 mEq and 40 p.o. of potassium Alert and oriented x4, GCS 15, dry mucous membranes, cardiac rate rhythm regular, mild QTc prolongation, not significantly changed from prior Given 2 g of IV mag Given 2 L of IV fluid resuscitation, I did order an ammonia, slightly elevated, will place patient on lactulose, it also looks like she might have a urinary tract infection we will start on Keflex empirically, patient is feeling marked improvement, she is requesting discharge home, I think this is reasonable at this time, she will need close outpatient reassessment She is placed on follow-up list She will be started on magnesium, potassium, Keflex, lactulose, and she will need recheck in 24 to 48 hours She is discharged home alert, oriented, of decisional capacity, in no acute distress with no evidence of alcohol withdrawal at time of discharge home, ambulatory with steady gait, with improved vital signs HPI General Date/Time Provider Initiated Documentation: 11/09/22 10:37 . HPI Narrative: This 62-year-old female with history of alcoholism, hypomagnesemia, ascites, alcohol abuse, cachexia, COPD presents with report of weakness for the past several days. She states she has been drinking less, she has 4-5 lemon drops with vodka every other day per patient. Her last drink was approximately 24 hours ago. She denies any withdrawal signs or symptoms. She states she awoke this morning and felt quite weak and had trouble walking which is why she presents. She denies any change in medications. Related Data Home Medications Medication Instructions Recorded Confirmed gabapentin 300 mg capsule 300 mg PO TID 08/13/20 11/09/22 multivitamin (Multiple Vitamins 1 tab PO DAILY #30 tabs 08/13/20 11/09/22 tablet) thiamine mononitrate (vit B1) 100 100 mg PO DAILY #30 tabs 08/13/20 11/09/22 mg tablet (Vitamin B-1 (mononitrate)) aspirin 81 mg tablet,delayed 81 mg PO DAILY #30 tabs 12/27/20 11/09/22 release magnesium oxide 400 mg (241.3 mg 400 mg PO DAILY #30 tabs 12/27/20 11/09/22 magnesium) tablet omeprazole 20 mg capsule,delayed 20 mg PO DAILY 09/16/21 11/09/22 release albuterol sulfate 90 mcg/actuation 2 puff inhalation Q6H PRN 01/18/22 11/09/22 aerosol inhaler shortness of breath or wheezing #8.5 grams fluticasone 250 mcg-salmeterol 50 1 inh inhalation BID 07/19/22 11/09/22 mcg/dose blistr powdr for inhalation (Advair Diskus) tiotropium 2.5 mcg-olodaterol 2.5 2 puff inhalation Q24H #4 grams 07/19/22 11/09/22 mcg/actuation mist for inhalation (Stiolto Respimat) cephalexin 500 mg capsule 500 mg PO BID 7 days #14 caps 11/09/22 lactulose 10 gram oral packet 20 g PO BID #15 ea 11/09/22 magnesium 250 mg tablet 250 mg PO DAILY #20 tabs 11/09/22 potassium chloride 10 mEq 10 meq PO BID #20 caps 11/09/22 capsule,extended release thiamine HCl (vitamin B1) 100 mg 100 mg PO DAILY #30 tabs 11/09/22 tablet Previous Rx's Medication Instructions Recorded multivitamin (Multiple Vitamins 1 tab PO DAILY #30 tabs 08/13/20 tablet) thiamine mononitrate (vit B1) 100 100 mg PO DAILY #30 tabs 08/13/20 mg tablet (Vitamin B-1 (mononitrate)) aspirin 81 mg tablet,delayed 81 mg PO DAILY #30 tabs 12/27/20 release magnesium oxide 400 mg (241.3 mg 400 mg PO DAILY #30 tabs 12/27/20 magnesium) tablet albuterol sulfate 90 mcg/actuation 2 puff inhalation Q6H PRN 01/18/22 aerosol inhaler shortness of breath or wheezing #8.5 grams tiotropium 2.5 mcg-olodaterol 2.5 2 puff inhalation Q24H #4 grams 07/19/22 mcg/actuation mist for inhalation (Stiolto Respimat) cephalexin 500 mg capsule 500 mg PO BID 7 days #14 caps 11/09/22 lactulose 10 gram oral packet 20 g PO BID #15 ea 11/09/22 magnesium 250 mg tablet 250 mg PO DAILY #20 tabs 11/09/22 potassium chloride 10 mEq 10 meq PO BID #20 caps 11/09/22 capsule,extended release thiamine HCl (vitamin B1) 100 mg 100 mg PO DAILY #30 tabs 11/09/22 tablet Allergies Allergy/AdvReac Type Severity Reaction Status Date / Time bacitracin Allergy Mild localized Verified 11/09/22 10:10 [From Neosporin redness ([id number])] neomycin Allergy Mild localized Verified 11/09/22 10:10 [From Neosporin redness ([id number])] polymyxin B Allergy Mild localized Verified 11/09/22 10:10 [From Neosporin redness ([id number])] General Stated Complaint: [facility] RAHEEM: 3 PFSH All Active Problems (Updated 11/09/22 @ 13:51 by AMIE Smallwood) UTI (urinary tract infection) (Acute) Pulmonary nodule (Acute) COPD (chronic obstructive pulmonary disease) (Chronic) Emphysema lung (Acute) Nicotine dependence, cigarettes, uncomplicated (Acute) Atherosclerosis (Acute) Gastric wall thickening (Acute) Stenosis of right internal carotid artery (Acute) Mass of upper lobe of right lung (Acute) Alcohol abuse (Chronic) Dehydration (Acute) Diarrhea (Acute) Hypomagnesemia (Chronic) Discharge planning issues (Acute) DVT prophylaxis (Acute) B12 deficiency (Acute) Ascites (Acute) Chronic liver disease (Chronic) Weight loss, non-intentional (Acute) Alcoholism (Acute) Macrocytic anemia (Acute) Early satiety (Acute) Folate deficiency (Acute) Hypomagnesemia (Acute) Hypokalemia (Acute) Leg pain (Acute) Cellulitis (Acute) Bilateral leg ulcer (Acute) Medical History Alcohol abuse Ascites Bilateral leg pain Bilateral lower extremity edema Cachexia Chest pain Chronic vomiting COPD (chronic obstructive pulmonary disease) Diastolic dysfunction Folate deficiency anemia Frequent falls Gastroesophageal reflux disease Hair loss Hepatic fibrosis Hx pulmonary embolism Hypomagnesemia Malnutrition Pancreatitis Tobacco abuse Tobacco dependence syndrome Ulcer of lower extremity Unintentional weight loss Vitamin D deficiency Surgical History ENT/Nasal surgery (~2007) foot surgery (~2000) Ligation of fallopian tube (~1999) punch biopsy, skin of ankle, right lateral (11/24/16) negative for malignancy, sparse inflammation and reactive blood vessels Family History Father Lung disease Social History Smoking/Tobacco Use Status: Current every day Tobacco Type: cigarettes Tobacco: How many years used: 45 Quit status: considering quitting Second Hand Exposure: Yes Smoking risk assessment performed?: Yes Alcohol Intake: current Alcohol Intake frequency: a few times a week Alcohol type: wine Drug use: Rarely Substance use type: marijuana Housing: apartment Current gender identity: female Do you feel safe at home: Yes Do you feel safe in your relationship?: Yes Additional Social history: smokes < 1ppd History History Para 0 Hx # Term Pregnancies Multiple births Hx # Pregnancies Ectopic pregnancies AB induced Hx Number of Living Children AB spontaneous Course Vital Signs Vital signs: Vital Signs Temperature 37.0 C 11/09/22 10:05 Pulse 109 H 11/09/22 10:05 Respiratory Rate 14 11/09/22 10:05 Blood Pressure 128/111 H 11/09/22 10:05 Pulse Oximetry 96 11/09/22 10:05 Temperature 37.0 C 11/09/22 10:05 Temperature Source Temporal Artery Scan 11/09/22 10:05 Pulse 87 11/09/22 13:56 Pulse 88 11/09/22 13:56 Respiratory Rate 19 11/09/22 13:56 Respiratory Effort Normal 11/09/22 10:36 Respiratory Depth Normal 11/09/22 10:36 Respiratory Pattern Normal 11/09/22 10:47 Blood Pressure 117/80 11/09/22 13:56 Blood Pressure Mean 90 11/09/22 13:55 Blood Pressure Position Sitting 11/09/22 10:05 Pulse Oximetry 99 11/09/22 13:56 Oxygen Delivery Method Room Air 11/09/22 10:05 Oxygen Flow Rate 0 11/09/22 10:05 Pain Level 0 11/09/22 10:05 Lab/Test Results Lab/Test Results: 11/09/22 13:15 Urine - Reflex from Ua Urine Culture - Preliminary Escherichia coli Laboratory Tests Range/Units 11/09/22 11/09/22 11/09/22 11:05 11:05 11:05 WBC (4.4-10.8) 10^3/uL 7.94 RBC (3.93-5.22) 10^6/uL 3.44 L Hgb (11.2-15.7) g/dL 12.5 Hct (36.0-46.0) % 36.4 MCV (80-95) fL 106 H MCH (27.0-33.0) pg 36.3 H MCHC (32.0-36.0) % 34.3 RDW (11.7-14.6) % 15.2 H Plt Count (130-400) 10^3/uL 242 MPV (8.0-11.0) fL 10.2 Immature Gran % 0.6 Neutrophils % 76.9 Lymphocytes % 12.7 Monocytes % 8.9 Eosinophils % 0.3 Basophils % 0.6 Nucleated RBC % (0.0-0.3) % 0.0 Absolute Neutrophils (1.2-6.7) 10^3/uL 6.10 Absolute Lymphocytes (1.2-3.4) 10^3/uL 1.01 L Absolute Monocytes (0.1-0.8) 10^3/uL 0.71 Absolute Eosinophils (0.0-0.7) 10^3/uL 0.02 Absolute Basophils (0.0-0.2) 10^3/uL 0.05 Sodium (136-145) mmol/L 133 L Potassium (3.5-5.1) mmol/L 2.7 L* Chloride (98-107) mmol/L 93 L Carbon Dioxide (21.0-32.0) mmol/L 29.5 Anion Gap (3-11) mmol/L 10.5 BUN (7-18) mg/dL 8 Creatinine (0.55-1.02) mg/dL 0.8 Est GFR (CKD-EPI 2020) (mL/min/1.73m2) 83.78 Glucose (74-106) mg/dL 112 H Calcium (8.5-10.1) mg/dL 8.3 L Phosphorus (2.6-4.7) mg/dL 3.5 Magnesium (1.8-2.4) mg/dL 1.3 L Total Bilirubin (0.2-1.0) mg/dL 0.9 AST (15-37) U/L 85 H ALT (14-59) U/L 35 Alkaline Phosphatase (46-116) U/L 133 H Ammonia (11-32) umol/L Troponin I (<or=60) ng/L < 50 Total Protein (6.4-8.2) g/dL 7.2 Albumin (3.4-5.0) g/dL 3.0 L Lipase (16-77) U/L 34 Urine Color (Yellow) Urine Clarity (Clear) Urine pH (5-8) Ur Specific [place] (1.005-1.025) Urine Protein (Negative) mg/dL Urine Ketones (Negative) mg/dL Urine Blood (Negative) Urine Nitrite (Negative) Urine Bilirubin (Negative) Urine Urobilinogen (Up to 0.2) mg/dL Ur Leukocyte Esterase (Negative) Urine RBC (0-2) HPF Urine WBC (0-5) HPF Ur Epithelial Cells (Negative) HPF Urine Crystals (Negative) HPF Urine Bacteria (Negative) HPF Urine Casts (Negative) LPF Urine Mucus (Negative) Ur Culture Indicated? Urine Glucose (Negative) mg/dL Ethyl Alcohol (<10) mg/dL < 3.0 Range/Units 11/09/22 11/09/22 11/09/22 11:05 13:15 13:48 WBC (4.4-10.8) 10^3/uL RBC (3.93-5.22) 10^6/uL Hgb (11.2-15.7) g/dL Hct (36.0-46.0) % MCV (80-95) fL MCH (27.0-33.0) pg MCHC (32.0-36.0) % RDW (11.7-14.6) % Plt Count (130-400) 10^3/uL MPV (8.0-11.0) fL Immature Gran % Neutrophils % Lymphocytes % Monocytes % Eosinophils % Basophils % Nucleated RBC % (0.0-0.3) % Absolute Neutrophils (1.2-6.7) 10^3/uL Absolute Lymphocytes (1.2-3.4) 10^3/uL Absolute Monocytes (0.1-0.8) 10^3/uL Absolute Eosinophils (0.0-0.7) 10^3/uL Absolute Basophils (0.0-0.2) 10^3/uL Sodium (136-145) mmol/L Potassium (3.5-5.1) mmol/L Chloride (98-107) mmol/L Carbon Dioxide (21.0-32.0) mmol/L Anion Gap (3-11) mmol/L BUN (7-18) mg/dL Creatinine (0.55-1.02) mg/dL Est GFR (CKD-EPI 2020) (mL/min/1.73m2) Glucose (74-106) mg/dL Calcium (8.5-10.1) mg/dL Phosphorus (2.6-4.7) mg/dL Magnesium (1.8-2.4) mg/dL Total Bilirubin (0.2-1.0) mg/dL AST (15-37) U/L ALT (14-59) U/L Alkaline Phosphatase (46-116) U/L Ammonia (11-32) umol/L 46 H Troponin I (<or=60) ng/L Cancelled Total Protein (6.4-8.2) g/dL Albumin (3.4-5.0) g/dL Lipase (16-77) U/L Urine Color (Yellow) Yellow Urine Clarity (Clear) Sl Cloudy Urine pH (5-8) 8.5 H Ur Specific [place] (1.005-1.025) 1.015 Urine Protein (Negative) mg/dL Negative Urine Ketones (Negative) mg/dL Negative Urine Blood (Negative) Negative Urine Nitrite (Negative) Positive H Urine Bilirubin (Negative) Negative Urine Urobilinogen (Up to 0.2) mg/dL 0.2 Ur Leukocyte Esterase (Negative) Trace H Urine RBC (0-2) HPF 0-2 Urine WBC (0-5) HPF 3-5 Ur Epithelial Cells (Negative) HPF Rare Urine Crystals (Negative) HPF Negative Urine Bacteria (Negative) HPF Many Urine Casts (Negative) LPF Negative Urine Mucus (Negative) Negative Ur Culture Indicated? Yes Urine Glucose (Negative) mg/dL Negative Ethyl Alcohol (<10) mg/dL Critical Care Time Critical Care Time Attestation: Approximately 35 minutes of critical care time secondary to IV magnesium and potassium administration, IV fluid resuscitation, telemetry monitoring, PAWSS Have you Been Recently Intoxicated or Drunk Within the Last 30 days?: No Have you Ever Experienced Previous Episodes of Alcohol Withdrawal?: No Have you ever Experienced Withdrawal Seizures?: No Have you ever Experienced Delirium Tremens(DT)s?: No Have you ever undergone Alcohol Rehabilitation Treatment (i.e, inpt ot outpatient treatment programs)?: No Have you ever Experienced Blackouts?: No Have you ever Combined Alcohol with other Downers within the last 90 days?: No Have you ever Combined Alcohol with any other Substance of Abuse during the last 90 days?: No Result: 0
== END 2022-11-09 14:05 | disposition home or self-care (01) ==
PROVIDERS: Emergency Provider Physician Assistant; PCP Nurse Practitioner Family
DX: E83.42 Hypomagnesemia (principal); E87.6 Hypokalemia; N39.0 Urinary tract infection, site not specified; F10.20 Alcohol dependence, uncomplicated
CPT/HCPCS: 80053; 83690; 87077; 93005; 96361; 96365; 96366; 96367; 96375; 99284; 71046; 80320; 81003; 81015; 82140; 83735; 84100; 84484; 85025; 87086; 87186; 93010; J2060; J3480

== ENCOUNTER 2023-02-05 12:06 | Emergency (ER) | payer BC, SELFPAY ==
[2023-02-05] VITALS (17 sets, daily range): BP systolic 93–122; BP diastolic 60–110; PULSE 78–137; RESP 12–29; TEMP 37.1; O2SAT 93–100
--- NOTE | 2023-02-05 12:15 | RT.EKG_ITS ---
APPROVED REPORT Exam: Resting ECG Reason for Exam: SOB Patient Location: E HR:149 bpm ECG Measurements Heart Rate 149 AXIS IA 143 P 105 QRSd 109 QRS 0 QT [id number] T 200 QTc 0 Conclusion Sinus tachycardia...rate> [address] segment or T wave abnormalities to suggest occlusive [place]
[2023-02-05 12:51] LABS: BE (Venous) 4 mmol/L (-2-3); HCO3 (Venous) 25 mmol/L (23-28); O2 Sat (Venous) 31 %; TCO2 (Venous) 22 mmol/L (24-29); pCO2 (Venous) 26 mmHg (41-51); pO2 (Venous) 20 mmHg
[2023-02-05 12:53] LABS: Abs Immature Grans 0.02 10^3/uL (0.0-0.06); Absolute Basophil Count 0.03 10^3/uL (0.0-0.2); Absolute Eosinophil Count 0.02 10^3/uL (0.0-0.7); Absolute Lymphocyte Count 1.23 10^3/uL (1.2-3.4); Absolute Monocyte Count 0.63 10^3/uL (0.1-0.8); Absolute Neutrophil Count 5.97 10^3/uL (1.2-6.7); Basophils % 0.4; Eosinophils % 0.3; HCT 39.6 % (36.0-46.0); HGB 13.6 g/dL (11.2-15.7); Immature Grans % 0.3; Lymphocytes % 15.6; MCH 34.5 pg (27.0-33.0); MCHC 34.3 % (32.0-36.0); MCV 101 fL (80-95); MPV 10.2 fL (8.0-11.0); Neutrophils % 75.4; Platelet Count 208 10^3/uL (130-400); RBC 3.94 10^6/uL (3.93-5.22); RDW 13.1 % (11.7-14.6); RDW-SD 48.5 fL
[2023-02-05 13:11] LABS: ALT 21 U/L (14-59); AST 57 U/L (15-37); Albumin 2.6 g/dL (3.4-5.0); Alkaline Phosphatase 141 U/L (46-116); Anion Gap 12.4 mmol/L (3-11); BUN 8 mg/dL (7-18); Bilirubin, Total 1.3 mg/dL (0.2-1.0); CO2 23.6 mmol/L (21.0-32.0); CREATININE 0.9 mg/dL (0.55-1.02); Calcium 8.4 mg/dL (8.5-10.1); Chloride 98 mmol/L (98-107); Estimated GFR 72.73 (mL/min/1.73m2); Glucose 115 mg/dL (74-106); Magnesium 1.2 mg/dL (1.8-2.4); Potassium 3.8 mmol/L (3.5-5.1); Sodium 134 mmol/L (136-145); Total Protein 6.6 g/dL (6.4-8.2); Troponin I < 50 ng/L (<or=60)
[2023-02-05] MEDS: Albuterol/Ipratropium 3 ML UPD VIAL UPD (13:13)
--- NOTE | 2023-02-05 13:23 | W.ED.GENAD ---
Discharge Plan Disposition Patient Disposition: Home Condition: Good Discharge Details Clinical Impression: Acid reflux Primary Care Provider: MARIANO KEARNEY ED Provider: Emmie Alanis Home Meds and New Rx's Prescriptions: New sucralfate [Carafate] 1 gram tablet 1 g PO BID PRN (Reason: acid reflux) Qty: 10 0RF No Action omeprazole 20 mg capsule,delayed release(DR/EC) 20 mg PO DAILY fluticasone propion-salmeterol [Advair Diskus] 250-50 mcg/dose blister with device 1 inh inhalation BID Stiolto Respimat 2.5-2.5 mcg/actuation mist 2 puff inhalation Q24H Qty: 4 12RF albuterol sulfate 90 mcg/actuation HFA aerosol inhaler 2 puff inhalation Q6H PRN (Reason: shortness of breath or wheezing) Qty: 8.5 12RF magnesium oxide 400 mg (241.3 mg magnesium) tablet 400 mg PO DAILY Qty: 30 0RF aspirin 81 mg tablet,delayed release (DR/EC) 81 mg PO DAILY Qty: 30 0RF multivitamin [Multiple Vitamins] Tablet 1 tab PO DAILY Qty: 30 0RF thiamine mononitrate (vit B1) [Vitamin B-1 (mononitrate)] 100 mg Tablet 100 mg PO DAILY Qty: 30 0RF gabapentin 300 mg Capsule 300 mg PO TID magnesium 250 mg tablet 250 mg PO DAILY Qty: 20 0RF potassium chloride 10 mEq capsule, extended release 10 meq PO BID Qty: 20 0RF thiamine HCl (vitamin B1) 100 mg tablet 100 mg PO DAILY Qty: 30 0RF lactulose 10 gram packet 20 g PO BID Qty: 15 0RF Discharge Instructions Instructions: GERD (Gastroesophageal Reflux Disease) (ED) Additional Instructions: You can take carafate up to twice a day as needed for symptoms. You can also use over the counter antacids such as Tums or Mylanta. Call your primary care doctor today to schedule an appointment for early next week to follow up on your visit here. Discuss whether you should take a magnesium supplement at home. Return to the emergency department for new or worsening symptoms, including difficultly breathing, chest pain, abdominal pain, or if you have any other concerns. Referrals: MARIANO KEARNEY, [employer] COUNSELOR [Primary Care Provider] - Medical Decision Making 62yo F with hx of COPD, ETOH abuse, liver disease, GERD, presenting with two days of burning substernal discomfort and associated shortness of breath; states feels like when my acid is bad. Associated nausea and dry heaving. Normal vital signs on arrival, reassuring physical exam with no respiratory distress and no abdominal tenderness including no epigastric tenderness. Not septic. No tachycardia or hypoxia to suggest pulmonary embolism. Not concerned for surgical intrabdominal process or pancreatitis. Will try carafate for symptoms and given duoneb for subjective shortness of breath. -EKG sinus tachycardia, no ST segment or T wave abnormalities to suggest occluisve [place], no concernign changes from prior 11/09/22. -Labs reviewed as below, CBC reassuring with no leukoocytosis, CMP with slightly elevated T-bili at 1.3, AST/ALT/ALP at recent baseline on [facility] record review. No RUQ tenderness on exam. Magnesium low; will give PO here and advise home supplementation. VBG with respiratory alkalosis, suspect 2/t hyperventilation in the setting of subjective shortness of breath and discomfort. Initial troponin negative. -CXR with no focal pneumonia or pneumothorax on my view, agree with radiology read below. On reassessment patient reports feeling much better. Breathing feels normal and substernal discomfort has resolved. Requesting discharge home; I encouraged her to wait for repeat troponin which she agreed to. Repeat troponin negative. Likely reflux; prescribed carafate for home and advised to followup with PCP. Discharged home; discharge instructions including return precautions were reviewed with patient who verbalized understanding. All questions were answered and they are in full agreement with the plan. Imaging Data Radiologic Study: Imaging: X-Ray Radiologist's impression: IMPRESSION: Stable patchy opacities in the right apex and mid lung regions may represent atelectasis or scar. Given the chronicity pneumonia less likely. Lab Data Lab results reviewed: Yes I reviewed the patient's lab results. Labs: Laboratory Tests Range/Units 02/05/23 02/05/23 02/05/23 12:30 12:30 12:30 WBC (4.4-10.8) 10^3/uL 7.90 RBC (3.93-5.22) 10^6/uL 3.94 Hgb (11.2-15.7) g/dL 13.6 Hct (36.0-46.0) % 39.6 MCV (80-95) fL 101 H MCH (27.0-33.0) pg 34.5 H MCHC (32.0-36.0) % 34.3 RDW (11.7-14.6) % 13.1 Plt Count (130-400) 10^3/uL 208 MPV (8.0-11.0) fL 10.2 Immature Gran % 0.3 Neutrophils % 75.4 Lymphocytes % 15.6 Monocytes % 8.0 Eosinophils % 0.3 Basophils % 0.4 Nucleated RBC % (0.0-0.3) % 0.0 Absolute Neutrophils (1.2-6.7) 10^3/uL 5.97 Absolute Lymphocytes (1.2-3.4) 10^3/uL 1.23 Absolute Monocytes (0.1-0.8) 10^3/uL 0.63 Absolute Eosinophils (0.0-0.7) 10^3/uL 0.02 Absolute Basophils (0.0-0.2) 10^3/uL 0.03 VBG pH (7.31-7.41) 7.60 H VBG pCO2 (41-51) mmHg 26 L VBG pO2 mmHg 20 VBG HCO3 (23-28) mmol/L 25 VBG Total CO2 (24-29) mmol/L 22 L VBG O2 Saturation % 31 VBG Base Excess (-2-3) mmol/L 4 H Sodium (136-145) mmol/L 134 L Potassium (3.5-5.1) mmol/L 3.8 Chloride (98-107) mmol/L 98 Carbon Dioxide (21.0-32.0) mmol/L 23.6 Anion Gap (3-11) mmol/L 12.4 H BUN (7-18) mg/dL 8 Creatinine (0.55-1.02) mg/dL 0.9 Est GFR (CKD-EPI 2020) (mL/min/1.73m2) 72.73 Glucose (74-106) mg/dL 115 H Calcium (8.5-10.1) mg/dL 8.4 L Magnesium (1.8-2.4) mg/dL 1.2 L Total Bilirubin (0.2-1.0) mg/dL 1.3 H AST (15-37) U/L 57 H ALT (14-59) U/L 21 Alkaline Phosphatase (46-116) U/L 141 H Troponin I (<or=60) ng/L < 50 Total Protein (6.4-8.2) g/dL 6.6 Albumin (3.4-5.0) g/dL 2.6 L Range/Units 02/05/23 16:02 WBC (4.4-10.8) 10^3/uL RBC (3.93-5.22) 10^6/uL Hgb (11.2-15.7) g/dL Hct (36.0-46.0) % MCV (80-95) fL MCH (27.0-33.0) pg MCHC (32.0-36.0) % RDW (11.7-14.6) % Plt Count (130-400) 10^3/uL MPV (8.0-11.0) fL Immature Gran % Neutrophils % Lymphocytes % Monocytes % Eosinophils % Basophils % Nucleated RBC % (0.0-0.3) % Absolute Neutrophils (1.2-6.7) 10^3/uL Absolute Lymphocytes (1.2-3.4) 10^3/uL Absolute Monocytes (0.1-0.8) 10^3/uL Absolute Eosinophils (0.0-0.7) 10^3/uL Absolute Basophils (0.0-0.2) 10^3/uL VBG pH (7.31-7.41) VBG pCO2 (41-51) mmHg VBG pO2 mmHg VBG HCO3 (23-28) mmol/L VBG Total CO2 (24-29) mmol/L VBG O2 Saturation % VBG Base Excess (-2-3) mmol/L Sodium (136-145) mmol/L Potassium (3.5-5.1) mmol/L Chloride (98-107) mmol/L Carbon Dioxide (21.0-32.0) mmol/L Anion Gap (3-11) mmol/L BUN (7-18) mg/dL Creatinine (0.55-1.02) mg/dL Est GFR (CKD-EPI 2020) (mL/min/1.73m2) Glucose (74-106) mg/dL Calcium (8.5-10.1) mg/dL Magnesium (1.8-2.4) mg/dL Total Bilirubin (0.2-1.0) mg/dL AST (15-37) U/L ALT (14-59) U/L Alkaline Phosphatase (46-116) U/L Troponin I (<or=60) ng/L < 50 Total Protein (6.4-8.2) g/dL Albumin (3.4-5.0) g/dL HPI General Mode of arrival: ambulatory. Date/Time Provider Initiated Documentation: 02/05/23 12:10. Limitations to Documentation: no limitations. Information obtained by: patient. HPI Narrative: 62yo F with hx of COPD, ETOH abuse, liver disease, GERD, presenting with two days of burning substernal discomfort and associated shortness of breath. Sensation is constant, non-radiating, and unrelieved by home omeprazole. States feels like when my acid is bad. Assoicated [place] and dry heaving with decreased PO. No vomiting. One episode of loose stool this morning, nonbloody. Shortness of breath is constant, slightly improved with home breathing treatments. She is otherwise in her usual state of health with no fevers, chills, rash, malaise, abdominal pain, palpations, LE edema, or other concerns. Related Data Home Medications Medication Instructions Recorded Confirmed gabapentin 300 mg capsule 300 mg PO TID 08/13/20 02/05/23 multivitamin (Multiple Vitamins 1 tab PO DAILY #30 tabs 08/13/20 02/05/23 tablet) thiamine mononitrate (vit B1) 100 100 mg PO DAILY #30 tabs 08/13/20 02/05/23 mg tablet (Vitamin B-1 (mononitrate)) aspirin 81 mg tablet,delayed 81 mg PO DAILY #30 tabs 12/27/20 02/05/23 release magnesium oxide 400 mg (241.3 mg 400 mg PO DAILY #30 tabs 12/27/20 02/05/23 magnesium) tablet omeprazole 20 mg capsule,delayed 20 mg PO DAILY 09/16/21 02/05/23 release albuterol sulfate 90 mcg/actuation 2 puff inhalation Q6H PRN 01/18/22 02/05/23 aerosol inhaler shortness of breath or wheezing #8.5 grams fluticasone 250 mcg-salmeterol 50 1 inh inhalation BID 07/19/22 02/05/23 mcg/dose blistr powdr for inhalation (Advair Diskus) tiotropium 2.5 mcg-olodaterol 2.5 2 puff inhalation Q24H #4 grams 07/19/22 02/05/23 mcg/actuation mist for inhalation (Stiolto Respimat) lactulose 10 gram oral packet 20 g PO BID #15 ea 11/09/22 02/05/23 magnesium 250 mg tablet 250 mg PO DAILY #20 tabs 11/09/22 02/05/23 potassium chloride 10 mEq 10 meq PO BID #20 caps 11/09/22 02/05/23 capsule,extended release thiamine HCl (vitamin B1) 100 mg 100 mg PO DAILY #30 tabs 11/09/22 02/05/23 tablet sucralfate 1 gram tablet (Carafate) 1 g PO BID PRN acid reflux #10 tabs 02/05/23 Previous Rx's Medication Instructions Recorded multivitamin (Multiple Vitamins 1 tab PO DAILY #30 tabs 08/13/20 tablet) thiamine mononitrate (vit B1) 100 100 mg PO DAILY #30 tabs 08/13/20 mg tablet (Vitamin B-1 (mononitrate)) aspirin 81 mg tablet,delayed 81 mg PO DAILY #30 tabs 12/27/20 release magnesium oxide 400 mg (241.3 mg 400 mg PO DAILY #30 tabs 12/27/20 magnesium) tablet albuterol sulfate 90 mcg/actuation 2 puff inhalation Q6H PRN 01/18/22 aerosol inhaler shortness of breath or wheezing #8.5 grams tiotropium 2.5 mcg-olodaterol 2.5 2 puff inhalation Q24H #4 grams 07/19/22 mcg/actuation mist for inhalation (Stiolto Respimat) lactulose 10 gram oral packet 20 g PO BID #15 ea 11/09/22 magnesium 250 mg tablet 250 mg PO DAILY #20 tabs 11/09/22 potassium chloride 10 mEq 10 meq PO BID #20 caps 11/09/22 capsule,extended release thiamine HCl (vitamin B1) 100 mg 100 mg PO DAILY #30 tabs 11/09/22 tablet sucralfate 1 gram tablet (Carafate) 1 g PO BID PRN acid reflux #10 tabs 02/05/23 Allergies Allergy/AdvReac Type Severity Reaction Status Date / Time bacitracin Allergy Mild localized Verified 02/05/23 12:15 [From Neosporin redness ([id number])] neomycin Allergy Mild localized Verified 02/05/23 12:15 [From Neosporin redness ([id number])] polymyxin B Allergy Mild localized Verified 02/05/23 12:15 [From Neosporin redness ([id number])] General Stated Complaint: GenMedical RAHEEM: 3 Review of Systems Narrative: see HPI PFSH All Active Problems (Updated 02/05/23 @ 16:39 by Emmie Alanis MD) Acid reflux (Chronic) Pulmonary nodule (Acute) COPD (chronic obstructive pulmonary disease) (Chronic) Emphysema lung (Acute) Nicotine dependence, cigarettes, uncomplicated (Acute) Atherosclerosis (Acute) Gastric wall thickening (Acute) Stenosis of right internal carotid artery (Acute) Mass of upper lobe of right lung (Acute) Alcohol abuse (Chronic) Dehydration (Acute) Diarrhea (Acute) Hypomagnesemia (Chronic) Discharge planning issues (Acute) DVT prophylaxis (Acute) B12 deficiency (Acute) Ascites (Acute) Chronic liver disease (Chronic) Weight loss, non-intentional (Acute) Alcoholism (Acute) Macrocytic anemia (Acute) Early satiety (Acute) Folate deficiency (Acute) Hypomagnesemia (Acute) Hypokalemia (Acute) Leg pain (Acute) Cellulitis (Acute) Bilateral leg ulcer (Acute) Medical History Alcohol abuse Ascites Bilateral leg pain Bilateral lower extremity edema Cachexia Chest pain Chronic vomiting COPD (chronic obstructive pulmonary disease) Diastolic dysfunction Folate deficiency anemia Frequent falls Gastroesophageal reflux disease Hair loss Hepatic fibrosis Hx pulmonary embolism Hypomagnesemia Malnutrition Pancreatitis Tobacco abuse Tobacco dependence syndrome Ulcer of lower extremity Unintentional weight loss Vitamin D deficiency Surgical History ENT/Nasal surgery (~2007) foot surgery (~2000) Ligation of fallopian tube (~1999) punch biopsy, skin of ankle, right lateral (11/24/16) negative for malignancy, sparse inflammation and reactive blood vessels Family History Father Lung disease Social History Smoking/Tobacco Use Status: Current every day Tobacco Type: cigarettes Tobacco: How many years used: 45 Quit status: considering quitting Second Hand Exposure: Yes Smoking risk assessment performed?: Yes Alcohol Intake: current Alcohol Intake frequency: a few times a week Alcohol type: wine Drug use: Rarely Substance use type: marijuana Housing: apartment Current gender identity: female Do you feel safe at home: Yes Do you feel safe in your relationship?: Yes Additional Social history: smokes < 1ppd History History Para 0 Hx # Term Pregnancies Multiple births Hx # Pregnancies Ectopic pregnancies AB induced Hx Number of Living Children AB spontaneous Exam Narrative Exam Narrative: General: Alert, well appearing, well nourished, in no acute distress. Head: Normocephalic, atraumatic Neck: Trachea midline, Neck supple. ENT: MMM. No oropharygeal lesions or exudate. Cardiac: RRR, no murmurs appreciated Resp: No respiratory distress. CTAB. Abd: Soft, non-distended, nontender No epigastric tenderness. : No suprapubic tenderness. Extremities: No deformities. No peripheral edema. Neurologic: GCS 15. Moves all extremities freely against gravity Course Vital Signs Vital signs: Vital Signs Temperature 37.1 C 02/05/23 12:12 Pulse 82 02/05/23 12:12 Respiratory Rate 20 02/05/23 12:12 Blood Pressure 117/90 02/05/23 12:12 Pulse Oximetry 100 02/05/23 12:12 Temperature 37.1 C 02/05/23 12:12 Temperature Source Oral 02/05/23 12:12 Pulse 78 02/05/23 12:47 Pulse 89 02/05/23 12:50 Respiratory Rate 13 02/05/23 12:50 Respiratory Effort Normal 02/05/23 12:38 Respiratory Depth Normal 02/05/23 12:38 Respiratory Pattern Normal 02/05/23 12:38 Blood Pressure 111/72 02/05/23 12:47 Blood Pressure Mean 83 02/05/23 12:47 Blood Pressure Position Sitting 02/05/23 12:12 Pulse Oximetry 99 02/05/23 12:50 Oxygen Delivery Method Room Air 02/05/23 12:12 Oxygen Flow Rate 0 02/05/23 12:12 Lab/Test Results Lab/Test Results: Laboratory Tests Range/Units 02/05/23 02/05/23 02/05/23 12:30 12:30 12:30 WBC (4.4-10.8) 10^3/uL 7.90 RBC (3.93-5.22) 10^6/uL 3.94 Hgb (11.2-15.7) g/dL 13.6 Hct (36.0-46.0) % 39.6 MCV (80-95) fL 101 H MCH (27.0-33.0) pg 34.5 H MCHC (32.0-36.0) % 34.3 RDW (11.7-14.6) % 13.1 Plt Count (130-400) 10^3/uL 208 MPV (8.0-11.0) fL 10.2 Immature Gran % 0.3 Neutrophils % 75.4 Lymphocytes % 15.6 Monocytes % 8.0 Eosinophils % 0.3 Basophils % 0.4 Nucleated RBC % (0.0-0.3) % 0.0 Absolute Neutrophils (1.2-6.7) 10^3/uL 5.97 Absolute Lymphocytes (1.2-3.4) 10^3/uL 1.23 Absolute Monocytes (0.1-0.8) 10^3/uL 0.63 Absolute Eosinophils (0.0-0.7) 10^3/uL 0.02 Absolute Basophils (0.0-0.2) 10^3/uL 0.03 VBG pH (7.31-7.41) 7.60 H VBG pCO2 (41-51) mmHg 26 L VBG pO2 mmHg 20 VBG HCO3 (23-28) mmol/L 25 VBG Total CO2 (24-29) mmol/L 22 L VBG O2 Saturation % 31 VBG Base Excess (-2-3) mmol/L 4 H Sodium (136-145) mmol/L 134 L Potassium (3.5-5.1) mmol/L 3.8 Chloride (98-107) mmol/L 98 Carbon Dioxide (21.0-32.0) mmol/L 23.6 Anion Gap (3-11) mmol/L 12.4 H BUN (7-18) mg/dL 8 Creatinine (0.55-1.02) mg/dL 0.9 Est GFR (CKD-EPI 2020) (mL/min/1.73m2) 72.73 Glucose (74-106) mg/dL 115 H Calcium (8.5-10.1) mg/dL 8.4 L Magnesium (1.8-2.4) mg/dL 1.2 L Total Bilirubin (0.2-1.0) mg/dL 1.3 H AST (15-37) U/L 57 H ALT (14-59) U/L 21 Alkaline Phosphatase (46-116) U/L 141 H Troponin I (<or=60) ng/L < 50 Total Protein (6.4-8.2) g/dL 6.6 Albumin (3.4-5.0) g/dL 2.6 L
--- NOTE | 2023-02-05 13:34 | DI.RAD_ITS ---
Exam(s) XR CHEST 2V PA LATERAL EXAM: XR CHEST 2V PA LATERAL CLINICAL HISTORY: shortness of breath TECHNIQUE: 2D digital imaging was performed of the chest. Two images were obtained. PA and lateral views were obtained. COMPARISON: CR XR CHEST 2V PA LATERAL from 11/09/2022 FINDINGS: MEDIASTINUM: Normal. HEART: Normal. Mitral valve calcifications are present. PULMONARY VASCULATURE: There is atherosclerosis of the thoracic aorta. LUNGS: The lungs are hyperinflated with flattened diaphragms suggesting underlying COPD. There again seen biapical opacities which appears stable. These likely reflect scarring. Acute pneumonia is co nsidered less likely. No focal consolidating infiltrates. PLEURAL SPACE: No pleural effusion or pneumothorax. BONE:Within normal limits for the patient's age. OTHER FINDINGS:Nipple shadows are present. IMPRESSION: Stable opacities in the lung apex, right greater than left likely reflecting atelectasis or scarring. Pneumonia is considered less likely. DATA REPOSITORY: RADIATION DOSE DELIVERED:
[2023-02-05] MEDS: Sucralfate 1 GM TAB 2 GM PO (13:41)
--- NOTE | 2023-02-05 13:51 | DI.VRAD_ITS ---
PROCEDURE INFORMATION: Exam: XR Chest Exam date and time: 02/05/2023 1:29 PM Age: 62 years old Clinical indication: Shortness of breath TECHNIQUE: Imaging protocol: Radiologic exam of the chest. Views: 2 views. COMPARISON: CR XR CHEST 2V PA LATERAL 11/09/2022 1:24 PM FINDINGS: Lungs: Hyperexpanded lung brady consistent with COPD. Stable patchy opacities in the right apex and mid lung regions may represent atelectasis or scar. Given the chronicity pneumonia less likely. Pleural spaces: Unremarkable. No pleural effusion. No pneumothorax. Heart/Mediastinum: Unremarkable. No cardiomegaly. Bones/joints: Unremarkable. IMPRESSION: Stable patchy opacities in the right apex and mid lung regions may represent atelectasis or scar. Given the chronicity pneumonia less likely. Dictated and Authenticated by: Abdirahman Andrews MD. Ordering:MARY KATE Olea MD
[2023-02-05] MEDS: Magnesium Gluconate 500 MG TAB PO (14:21)
[2023-02-05 16:24] LABS: Troponin I < 50 ng/L (<or=60)
== END 2023-02-05 16:54 | disposition home or self-care (01) ==
PROVIDERS: Emergency Provider Student in an Organized Health Care Education/Training Program; PCP Nurse Practitioner Family
DX: K21.9 Gastro-esophageal reflux disease without esophagitis (principal); R06.02 Shortness of breath
CPT/HCPCS: 80053; 82805; 93005; 94640; 99283; 71046; 83735; 84484; 85025; 93010; 99284; J7620

== ENCOUNTER 2023-03-14 16:27 | Emergency (ER) | payer BC, SELFPAY ==
[2023-03-14] VITALS (30 sets, daily range): BP systolic 124–152; BP diastolic 58–73; PULSE 102–117; RESP 12–22; TEMP 37; O2SAT 92–100
--- NOTE | 2023-03-14 16:30 | DI.RAD_ITS ---
Exam(s) XR PORTABLE CHEST AP EXAM: XR PORTABLE CHEST AP CLINICAL HISTORY: chest pain TECHNIQUE: 2D digital imaging was performed. COMPARISON: CR,XR XR CHEST 2V PA LATERAL from 02/05/2023 FINDINGS: LUNGS: Upper lobe scarring. Pulmonary artery prominence. Mildly increased interstitial markings. F indings may be chronic. Mild pulmonary edema not excluded. No focal infiltrate. HEART: Normal size. Mitral annular calcification. AORTA: Normal diameter. Calcification at arch. BONES: Unremarkable for age. Soft tissues: Unremarkable. IMPRESSION: Question of mild pulmonary edema. DATA REPOSITORY: RADIATION DOSE DELIVERED:
--- NOTE | 2023-03-14 16:30 | RT.EKG_ITS ---
APPROVED REPORT Exam: Resting ECG Reason for Exam: chest pain Patient Location: E HR:104 bpm ECG Measurements Heart Rate 104 AXIS ID 157 P 74 QRSd 123 QRS 62 QT 394 T 14 QTc 517 Conclusion Sinus tachycardia...rate> 99 Left atrial enlargement...P, P'>60mS, <-0.15mV V1 Right bundle branch block...QRSd>120, terminal axis(90,270) Probable anterolateral infarct, old...Q>35mS, abnrm ST-T, V2-V6,I,aVL
--- NOTE | 2023-03-14 16:39 | ED.GENADUL_ITS ---
Discharge Plan Disposition Patient Disposition: Home Discharge Details Clinical Impression: COPD exacerbation, Hypokalemia, Chest wall muscle strain Primary Care Provider: MARIANO KEARNEY ED Provider: Felipe Dejesus Home Meds and New Rx's Prescriptions: New prednisone 50 mg tablet 50 mg PO DAILY 4 Days Qty: 4 0RF No Action omeprazole 20 mg capsule,delayed release(DR/EC) 20 mg PO DAILY fluticasone propion-salmeterol [Advair Diskus] 250-50 mcg/dose blister with device 1 inh inhalation BID Stiolto Respimat 2.5-2.5 mcg/actuation mist 2 puff inhalation Q24H Qty: 4 12RF albuterol sulfate 90 mcg/actuation HFA aerosol inhaler 2 puff inhalation Q6H PRN (Reason: shortness of breath or wheezing) Qty: 8.5 12RF aspirin 81 mg tablet,delayed release (DR/EC) 81 mg PO DAILY Qty: 30 0RF Hold Instructions: stopped sucralfate [Carafate] 1 gram tablet 1 g PO BID PRN (Reason: acid reflux) Qty: 10 0RF multivitamin [Multiple Vitamins] Tablet 1 tab PO DAILY Qty: 30 0RF thiamine mononitrate (vit B1) [Vitamin B-1 (mononitrate)] 100 mg Tablet 100 mg PO DAILY Qty: 30 0RF gabapentin 300 mg Capsule 300 mg PO TID magnesium 250 mg tablet 250 mg PO DAILY Qty: 20 0RF potassium chloride 10 mEq capsule, extended release 10 meq PO BID Qty: 20 0RF thiamine HCl (vitamin B1) 100 mg tablet 100 mg PO DAILY Qty: 30 0RF lactulose 10 gram packet 20 g PO BID Qty: 15 0RF Discharge Instructions Instructions: Hypokalemia (ED), COPD (Chronic Obstructive Pulmonary Disease) (ED) Additional Instructions: You were seen in the emergency department for shortness of breath and chest pain. We performed labs, EKG, and chest x-ray that were mostly unremarkable. Your potassium was a little bit low and we repleted this with some oral potassium which she can start taking at any local pharmacy with a supplement or just start eating more fresh fruits and vegetables such as bananas. You likely had a COPD exacerbation. Take the prescribed steroids. Take your inhaler as prescribed. Return to the emergency department for worsening symptoms. Otherwise follow-up with your primary care doctor about this visit. Referrals: MARIANO KEARNEY, [employer] [Primary Care Provider] - 1 week Medical Decision Making 62-year-old female presents with shortness of breath and chest pain. She thinks that this is from muscle strain. This is possible but would be a diagnosis of exclusion. EKG is nonischemic. Will check cardiac enzymes though if unremarkable would not pursue the diagnosis of ACS further. Will get chest x- ray to look for pneumonia or pneumothorax. 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 She may need to follow-up with her primary care doctor and maintenance mechanic 2nd shift about this and certainly will see any major changes to the masses or any associated complications such as a pleural effusion on the simple chest x-ray. Will provide some analgesia if this is related to a muscle strain. She has some mild and expiratory wheezing and will give some steroids and a nebulizer treatment to see if this helps with her symptoms. Will await initial testing and reevaluate. 858pm EKG is unremarkable. Troponin and 3-hour troponin are both unremarkable. No recurrent chest pain here. Improved after steroids and nebulizer here. Also feels better with Tylenol and ibuprofen. Now completely complaint free. Labs mostly unremarkable other than chronic hyponatremia and mild hypokalemia that I have repleted. Tolerated IV fluids well. Chest x-ray with no pneumonia and reading possible pulmonary edema. proBNP is mildly elevated but consistent with priors. She does not have orthopnea or any leg swelling or weight gain so I do not think that this represents pulmonary edema at this time. We will treat for COPD exacerbation and tell her to take Tylenol and ibuprofen for any muscle discomfort. Told to return if she has any worsening symptoms. Will discharge with return precautions. Medical Records Medical records reviewed: Yes I reviewed the patient's medical records. Imaging Data Radiologic Study: Attestation: I personally reviewed and interpreted this imaging study as follows: Imaging: X-Ray (chest) Radiologist's impression: Chest x-ray with possible pulmonary edema. Otherwise unremarkable. Lab Data Lab results reviewed: Yes I reviewed the patient's lab results. Labs: Mild hypokalemia. Chronic hyponatremia. Otherwise labs mostly unremarkable. Elevated proBNP but consistent with priors. ECG Data Attestation: I personally reviewed and interpreted this ECG (s) as follows: Prior ECG tracings: available for review Interpretation: Sinus tachycardia. No ischemic or ST/T wave changes. Compared to prior EKG unremarkable. HPI General Date/Time Provider Initiated Documentation: 03/14/23 16:31 . Limitations to Documentation: no limitations . Information obtained by: patient . HPI Narrative: 62-year-old female history of smoking, COPD, alcohol use disorder, GERD, cirrhosis, ascites is now presenting with chest pain. Says 2 days ago she was pulling herself to get up out of bed. Ended up pulling a muscle in her chest and has had chest pain since then. Some small amount of shortness of breath with this. Has some lung masses that she says was normal on her last PET scan and not changing. She denies cough or fever. No belly pain nausea or vomiting. No abdominal distention. She has been treating the chest pain with alcohol. Denies any other medications for pain. Related Data Home Medications Medication Instructions Recorded Confirmed gabapentin 300 mg capsule 300 mg PO TID 08/13/20 03/14/23 multivitamin (Multiple Vitamins 1 tab PO DAILY #30 tabs 08/13/20 03/14/23 tablet) thiamine mononitrate (vit B1) 100 100 mg PO DAILY #30 tabs 08/13/20 03/14/23 mg tablet (Vitamin B-1 (mononitrate)) aspirin 81 mg tablet,delayed 81 mg PO DAILY #30 tabs 12/27/20 03/14/23 release omeprazole 20 mg capsule,delayed 20 mg PO DAILY 09/16/21 03/14/23 release albuterol sulfate 90 mcg/actuation 2 puff inhalation Q6H PRN 01/18/22 03/14/23 aerosol inhaler shortness of breath or wheezing #8.5 grams fluticasone 250 mcg-salmeterol 50 1 inh inhalation BID 07/19/22 03/14/23 mcg/dose blistr powdr for inhalation (Advair Diskus) tiotropium 2.5 mcg-olodaterol 2.5 2 puff inhalation Q24H #4 grams 07/19/22 03/14/23 mcg/actuation mist for inhalation (Stiolto Respimat) lactulose 10 gram oral packet 20 g PO BID #15 ea 11/09/22 03/14/23 magnesium 250 mg tablet 250 mg PO DAILY #20 tabs 11/09/22 03/14/23 potassium chloride 10 mEq 10 meq PO BID #20 caps 11/09/22 03/14/23 capsule,extended release thiamine HCl (vitamin B1) 100 mg 100 mg PO DAILY #30 tabs 11/09/22 03/14/23 tablet sucralfate 1 gram tablet (Carafate) 1 g PO BID PRN acid reflux #10 tabs 02/05/23 03/14/23 prednisone 50 mg tablet 50 mg PO DAILY 4 days #4 tabs 03/14/23 Previous Rx's Medication Instructions Recorded multivitamin (Multiple Vitamins 1 tab PO DAILY #30 tabs 08/13/20 tablet) thiamine mononitrate (vit B1) 100 100 mg PO DAILY #30 tabs 08/13/20 mg tablet (Vitamin B-1 (mononitrate)) aspirin 81 mg tablet,delayed 81 mg PO DAILY #30 tabs 12/27/20 release albuterol sulfate 90 mcg/actuation 2 puff inhalation Q6H PRN 01/18/22 aerosol inhaler shortness of breath or wheezing #8.5 grams tiotropium 2.5 mcg-olodaterol 2.5 2 puff inhalation Q24H #4 grams 07/19/22 mcg/actuation mist for inhalation (Stiolto Respimat) lactulose 10 gram oral packet 20 g PO BID #15 ea 11/09/22 magnesium 250 mg tablet 250 mg PO DAILY #20 tabs 11/09/22 potassium chloride 10 mEq 10 meq PO BID #20 caps 11/09/22 capsule,extended release thiamine HCl (vitamin B1) 100 mg 100 mg PO DAILY #30 tabs 11/09/22 tablet sucralfate 1 gram tablet (Carafate) 1 g PO BID PRN acid reflux #10 tabs 02/05/23 prednisone 50 mg tablet 50 mg PO DAILY 4 days #4 tabs 03/14/23 Allergies Allergy/AdvReac Type Severity Reaction Status Date / Time bacitracin Allergy Mild localized Verified 03/14/23 16:30 [From Neosporin redness ([id number])] neomycin Allergy Mild localized Verified 03/14/23 16:30 [From Neosporin redness ([id number])] polymyxin B Allergy Mild localized Verified 03/14/23 16:30 [From Neosporin redness ([id number])] General Stated Complaint: Chest/Rib RAHEEM: 3 Review of Systems Constitutional Constitutional: Denies chills, Denies fever(s) and Denies headache(s) Eyes Eyes: Denies change in vision ENT Ears, Nose, Mouth, and Throat: Denies headache(s) and Denies odynophagia Cardiovascular Cardiovascular: Reports chest pain and Reports dyspnea Respiratory Respiratory: Reports dyspnea Gastrointestinal Gastrointestinal: Denies abdominal pain, Denies diarrhea, Denies nausea, Denies odynophagia and Denies vomiting Genitourinary Genitourinary: Denies dysuria Musculoskeletal Musculoskeletal: Denies myalgias Integumentary/Breasts Skin/Breast: Denies changing lesions Neurologic Neurologic: Denies behavioral changes and Denies headache(s) Psychiatric Psychiatric: Denies behavioral changes Endocrine Endocrine: Denies heat intolerance Hematologic/Lymphatic Hematologic/Lymphatic: Denies lymphadenopathy PFSH All Active Problems (Updated 03/14/23 @ 21:00 by Felipe Dejesus MD) Chest wall muscle strain (Acute) Hypokalemia (Acute) COPD exacerbation (Acute) Pulmonary nodule (Acute) COPD (chronic obstructive pulmonary disease) (Chronic) Emphysema lung (Acute) Nicotine dependence, cigarettes, uncomplicated (Acute) Atherosclerosis (Acute) Gastric wall thickening (Acute) Stenosis of right internal carotid artery (Acute) Mass of upper lobe of right lung (Acute) Alcohol abuse (Chronic) Dehydration (Acute) Diarrhea (Acute) Hypomagnesemia (Chronic) Discharge planning issues (Acute) DVT prophylaxis (Acute) B12 deficiency (Acute) Ascites (Acute) Chronic liver disease (Chronic) Weight loss, non-intentional (Acute) Alcoholism (Acute) Macrocytic anemia (Acute) Early satiety (Acute) Folate deficiency (Acute) Hypomagnesemia (Acute) Hypokalemia (Acute) Leg pain (Acute) Cellulitis (Acute) Bilateral leg ulcer (Acute) Medical History Hypomagnesemia Cachexia Hepatic fibrosis Ulcer of lower extremity Hair loss Vitamin D deficiency Chest pain Gastroesophageal reflux disease Hx pulmonary embolism COPD (chronic obstructive pulmonary disease) Chronic vomiting Malnutrition Frequent falls Bilateral leg pain Pancreatitis Diastolic dysfunction Folate deficiency anemia Ascites Bilateral lower extremity edema Unintentional weight loss Alcohol abuse Tobacco dependence syndrome Tobacco abuse Surgical History punch biopsy, skin of ankle, right lateral (11/24/16) negative for malignancy, sparse inflammation and reactive blood vessels foot surgery (~2000) Ligation of fallopian tube (~1999) ENT/Nasal surgery (~2007) Family History Father Lung disease Social History Smoking/Tobacco Use Status: Current every day Tobacco Type: cigarettes Tobacco: How many years used: 45 Quit status: considering quitting Second Hand Exposure: Yes Smoking risk assessment performed?: Yes Alcohol Intake: current Alcohol Intake frequency: a few times a week Alcohol type: wine Drug use: Rarely Substance use type: marijuana Housing: apartment Current gender identity: female Do you feel safe at home: Yes Do you feel safe in your relationship?: Yes Additional Social history: smokes < 1ppd History History Para 0 Hx # Term Pregnancies Multiple births Hx # Pregnancies Ectopic pregnancies AB induced Hx Number of Living Children AB spontaneous Exam Const General: cooperative Nutritional Appearance: average body habitus Orientation: alert, awake and oriented x3 HENMT Head: normal to inspection Ears: external ears normal Mouth: moist mucous membranes Eyes Pupils: PERRL EOM: EOM intact bilaterally and No nystagmus Neck Neck: full ROM and no tracheal deviation Chest Chest: normal inspection of the chest Resp Other: Mild and expiratory wheezing bilaterally but no increased work of breathing. Cardio Rate: regular rate Rhythm: regular rhythm GI Inspection: normal to inspection Palpation: soft, no guarding, not rigid and nontender Back/Spine/Pelvis Back: No no CVA tenderness Thoracic/Lumbar Spine: thoracic and lumbar spine normal to inspection Skin General skin exam: no rashes or lesions noted Neuro General: patient alert, patient awake and patient oriented x3 Cranial Nerves: CN's II-XI intact bilaterally, PERRL and no nystagmus Cognition: normal cognition Motor: muscle tone normal throughout and strength 5/5 throughout Sensory Exam: no sensory deficits noted Extrem General: normal to inspection Course Vital Signs Vital signs: Vital Signs Temperature 37.0 C 03/14/23 16:27 Pulse 117 H 03/14/23 16:27 Respiratory Rate 20 03/14/23 16:27 Blood Pressure 150/71 H 03/14/23 16:27 Pulse Oximetry 95 03/14/23 16:27 Temperature 37.0 C 03/14/23 16:27 Temperature Source Oral 03/14/23 16:27 Pulse 117 H 03/14/23 16:27 Respiratory Rate 20 03/14/23 16:27 Blood Pressure 150/71 H 03/14/23 16:27 Blood Pressure Position Sitting 03/14/23 16:27 Pulse Oximetry 95 03/14/23 16:27 Oxygen Delivery Method Room Air 03/14/23 16:27 Oxygen Flow Rate 0 03/14/23 16:27 Pain Level 7 03/14/23 16:27
[2023-03-14] MEDS: Normal Saline 1,000 ML 1000 ML IV (16:48)
[2023-03-14] MEDS: methylPREDNISolone SUCC 125 MG VIAL IVP (16:48)
[2023-03-14] MEDS: Ketorolac 15 MG/ML VIAL IVP (16:48)
[2023-03-14] MEDS: Albuterol/Ipratropium 3 ML UPD VIAL UPD (16:49)
[2023-03-14 17:02] LABS: Abs Immature Grans 0.07 10^3/uL (0.0-0.06); Absolute Basophil Count 0.04 10^3/uL (0.0-0.2); Absolute Eosinophil Count 0.01 10^3/uL (0.0-0.7); Absolute Lymphocyte Count 1.39 10^3/uL (1.2-3.4); Absolute Monocyte Count 0.84 10^3/uL (0.1-0.8); Absolute Neutrophil Count 4.29 10^3/uL (1.2-6.7); Basophils % 0.6; Eosinophils % 0.2; HCT 35.5 % (36.0-46.0); HGB 12.2 g/dL (11.2-15.7); Immature Grans % 1.1; Lymphocytes % 20.9; MCH 34.2 pg (27.0-33.0); MCHC 34.4 % (32.0-36.0); MCV 99 fL (80-95); MPV 10.4 fL (8.0-11.0); Monocytes % 12.7; Neutrophils % 64.5; Platelet Count 227 10^3/uL (130-400); RBC 3.57 10^6/uL (3.93-5.22); RDW 14.4 % (11.7-14.6); WBC 6.64 10^3/uL (4.4-10.8)
[2023-03-14 17:31] LABS: COVID-19 PCR Negative (Negative); Influenza A PCR Negative (Negative); Influenza B PCR Negative (Negative); RSV PCR Negative (Negative)
[2023-03-14 17:33] LABS: Source Nasopharynx
[2023-03-14 17:35] LABS: ETHANOL BLOOD 141.2 mg/dL (<10)
[2023-03-14 17:45] LABS: ALT 34 U/L (14-59); AST 108 U/L (15-37); Albumin 2.7 g/dL (3.4-5.0); Alkaline Phosphatase 165 U/L (46-116); Anion Gap 16.6 mmol/L (3-11); BUN 13 mg/dL (7-18); Bilirubin, Total 0.6 mg/dL (0.2-1.0); CO2 19.4 mmol/L (21.0-32.0); CREATININE 0.8 mg/dL (0.55-1.02); Calcium 8.5 mg/dL (8.5-10.1); Chloride 94 mmol/L (98-107); Estimated GFR 83.78 (mL/min/1.73m2); Glucose 108 mg/dL (74-106); Potassium 3.3 mmol/L (3.5-5.1); Sodium 130 mmol/L (136-145); Total Protein 7.2 g/dL (6.4-8.2); Troponin I < 50 ng/L (<or=60)
[2023-03-14] MEDS: Potassium Chloride Liquid 20 MEQ PKT 40 MEQ PO (17:56)
[2023-03-14] MEDS: MAGNESIUM SULFATE 2 GM/50 ML BAG IVPB (17:57)
[2023-03-14 18:13] LABS: Lab Add On Test DONE
[2023-03-14 18:33] LABS: NT-proBNP 1819 pg/mL (<300)
[2023-03-14] MEDS: Normal Saline 500 ML IV (19:33)
[2023-03-14 20:45] LABS: Anion Gap 15.9 mmol/L (3-11); CO2 19.1 mmol/L (21.0-32.0); Chloride 96 mmol/L (98-107); Potassium 3.5 mmol/L (3.5-5.1); Sodium 131 mmol/L (136-145); Troponin I < 50 ng/L (<or=60)
== END 2023-03-14 21:30 | disposition home or self-care (01) ==
PROVIDERS: Emergency Provider Student in an Organized Health Care Education/Training Program; PCP Nurse Practitioner Family
DX: J44.1 Chronic obstructive pulmonary disease with (acute) exacerbation (principal); S29.011A Strain of muscle and tendon of front wall of thorax, initial encounter; I45.19 Other right bundle-branch block; R00.0 Tachycardia, unspecified; E87.6 Hypokalemia; F17.210 Nicotine dependence, cigarettes, uncomplicated; Z20.822 Contact with and (suspected) exposure to COVID-19
CPT/HCPCS: 36415; 80051; 80053; 87637; 93005; 94640; 96361; 96365; 96366; 96375; 99283; 71045; 80320; 83880; 84484; 85025; 93010; J1885; J2930; J7620

== ENCOUNTER 2023-03-27 17:35 | Emergency (ER) | payer BC, SELFPAY ==
[2023-03-27] VITALS (20 sets, daily range): BP systolic 109–160; BP diastolic 78–120; PULSE 80–98; RESP 10–20; TEMP 36.2; O2SAT 90–100
--- NOTE | 2023-03-27 17:30 | DI.RAD_ITS ---
Exam(s) XR CHEST 2V PA LATERAL EXAM: XR CHEST 2V PA LATERAL CLINICAL HISTORY: chest pain TECHNIQUE: 2D digital imaging was performed of the chest. Two images were obtained. PA and lateral views were obtained. COMPARISON: CR XR PORTABLE CHEST AP from 03/14/2023 FINDINGS: MEDIASTINUM: Normal. HEART: Normal. PULMONARY VASCULATURE: Normal. LUNGS: The lungs are hyperinflated suggesting underlying COPD. There are prominent interstitial lacie ings seen in the lungs bilaterally. No focal consolidating infiltrate is seen. Chronic parenchymal scarring is seen in the apices which appears stable. PLEURAL SPACE: There is blunting of the right costophrenic angle which may represent a small pleural effusion. No pneumothorax. No significant left pleural effusion. BONE:Within normal limits for the patient's age. There is a mild right convex curvature of the thora cic spine. OTHER FINDINGS:Normal. Atherosclerosis is present. IMPRESSION: 1. Diffuse interstitial prominence which may represent acute abnormalities such as edema or pneumonia . Some degree of pulmonary fibrosis cannot be excluded. 2. COPD. DATA REPOSITORY: RADIATION DOSE DELIVERED:
--- NOTE | 2023-03-27 17:30 | RT.EKG_ITS ---
APPROVED REPORT Exam: Resting ECG Reason for Exam: chest pain Patient Location: E HR:81 bpm ECG Measurements Heart Rate 81 AXIS TX 148 P 134 QRSd 115 QRS 79 QT 376 T 58 QTc 436 Conclusion Sinus rhythm...normal P axis, V-rate 60- 99 Atrial premature complexes...SV complexes w/ short R-R intvls Probable left atrial enlargement...P >50mS, <-0.10mV V1 IRBBB and LPFB...RAD, QRSd>120, term axis(90,270) sinus rhythm, normal axis, normal intervals, PAC, non ischemic
--- NOTE | 2023-03-27 17:49 | ED.GENADUL_ITS ---
Discharge Plan Disposition Patient Disposition: Home Condition: Stable Discharge Details Clinical Impression: Chest pain due to GERD, Fluid overload, Hypomagnesemia Primary Care Provider: MARIANO KEARNEY ED Provider: Deanna Weller Home Meds and New Rx's Prescriptions: Continued Stiolto Respimat 2.5-2.5 mcg/actuation mist 2 puff inhalation Q24H Qty: 4 12RF albuterol sulfate 90 mcg/actuation HFA aerosol inhaler 2 puff inhalation Q6H PRN (Reason: shortness of breath or wheezing) Qty: 8.5 12RF multivitamin [Multiple Vitamins] Tablet 1 tab PO DAILY Qty: 30 0RF gabapentin 300 mg Capsule 300 mg PO TID magnesium 250 mg tablet 250 mg PO DAILY Qty: 20 0RF Changed omeprazole 20 mg capsule,delayed release(DR/EC) 40 mg PO BID Qty: 0 0RF Discharge Instructions Instructions: GERD (Gastroesophageal Reflux Disease) (ED) Additional Instructions: * Raise the head of your bed by 6 to 8 inches ? You can do this by putting blocks of wood or rubber under 2 legs of the bed or a foam wedge under the mattress. It is not enough to sleep with your head raised on pillows. * ?Avoid foods that make your symptoms worse ? For some people, these include coffee, chocolate, alcohol, peppermint, and fatty foods. It might help to write down what you ate before having reflux. This can help you figure out if a food is causing your problem. * ?Stop smoking, if you smoke. Your doctor or nurse can help you try to quit. * ?Avoid late meals ? Lying down with a full stomach can make reflux worse. Try to plan meals for at least 2 to 3 hours before bedtime. * ?Avoid tight clothing ? Some people feel better if they wear comfortable clothing that does not squeeze the stomach area. * Your chest x-ray did show some mild pulmonary congestion. You did receive a one-time dose of Lasix. You should follow-up with your primary care provider for further outpatient testing and recommendations Your magnesium level was also found to be low at 1.4 this is likely due to GI losses, your chronic diarrhea, you have been given an extra dose of magnesium and should continue your magnesium as previously scheduled. You should call your primary care provider first thing Tuesday morning for follow-up appointment to be rechecked for these above concerns. Referrals: MARIANO KEARNEY [employer] [Primary Care Provider] - Discharge Data Discharge Date/Time-TO BE ENTERED AT DEPARTURE: 03/27/23 19:30 Medical Decision Making Presents with reports of 2 weeks of substernal/epigastric chest pain she states most consistent with her GERD. its been constant. She has been taking her omeprazole. She drinks alcohol regularly and has not had anything to drink in 3 days secondary to her symptoms. She states she has chronic diarrhea or states there has been no blood or black or tarry stool. She states has been no change in her bowels rectal exam shows no stool in the vault occult negative for blood. EKG is nonischemic her symptoms do not sound cardiac but will check CBC basic metabolic panel and troponin. Also will check magnesium level. magnesium was found to be low at 1.5 probably secondary to chronic diarrhea or GI losses. Will replete with oral magnesium. X-ray also shows some mild pulmonary congestion. I will give her a one-time dose of Lasix. Mild fluid overload may explain low hemoglobin, hemodilution, also she has negative troponin and her EKG is nonischemic. She is oxygenating in the high 90's on room air and denies increased cough, shortness of breath or respiratory symptoms. Last echo on record was 2016. Her BNP is elevated at 5000. she was reambulated with no symptoms and maintaining sats in the high 90's. she should follow-up with her primary care provider outpatient for further outpatient testing and recommendations. she will be advised to increase omeprazole to 40 mg po bid until seen by her pcp. will defer further work up to pcp. Medical Records Medical records reviewed: Yes I reviewed the patient's medical records. Imaging Data Radiologic Study: Imaging: X-Ray Radiologist's impression: Exam(s) PROCEDURE INFORMATION: Exam: XR Chest Exam date and time: 03/27/2023 5:59 PM Age: 62 years old Clinical indication: Other: Chest pain TECHNIQUE: Imaging protocol: Radiologic exam of the chest. Views: 2 views. COMPARISON: CR XR PORTABLE CHEST AP 03/14/2023 5:08 PM FINDINGS: Lungs: There is mild pulmonary venous congestion. There is diffuse interstitial edema. Underlying inflammatory or infectious process not excluded. Emphysematous changes are present at the apex of the lungs greater on the right than the left. Pleural spaces: There bilateral lbmqx-xmlobup-jowm-left pleural effusions present. No evidence of pneumothorax. Heart/Mediastinum: The heart is mildly enlarged. There is prominence of the mediastinum. Bones/joints: The skeletal structures and soft tissues show no evidence of fracture or other acute processes. Soft tissues: The soft tissues of the extrathoracic region are unremarkable. IMPRESSION: 1. Probable congestive heart failure. Underlying inflammatory or infectious process not excluded. 2. There bilateral cohwf-modbgnq-ulal-left pleural effusions present. 3. Emphysematous changes are present at the apex of the lungs greater on the right than the left. Dictated and Authenticated by: All Avalos MD. Ordering:LURDES Huerta MD Lab Data Lab results reviewed: Yes I reviewed the patient's lab results. Lab results narrative: Laboratory Results - last 24 hr 03/27/23 17:43 WBC 7.66 RBC 3.08 L Hgb 10.9 L Hct 33.1 L MCV 108 H MCH 35.4 H MCHC 32.9 RDW 15.3 H Plt Count 350 MPV 9.4 Immature Gran % 0.7 Neutrophils % 77.8 Lymphocytes % 12.0 Monocytes % 8.6 Eosinophils % 0.1 Basophils % 0.8 Nucleated RBC % 0.0 Absolute Neutrophils 5.96 Absolute Lymphocytes 0.92 L Absolute Monocytes 0.66 Absolute Eosinophils 0.01 Absolute Basophils 0.06 RBC Morphology See Below Anisocytosis 1+ Macrocytosis 1+ Sodium 136 Potassium 4.0 Chloride 100 Carbon Dioxide 27.4 Anion Gap 8.6 BUN 8 Creatinine 0.7 Est GFR (CKD-EPI 2020) 98.34 Glucose 152 H Calcium 8.7 Magnesium 1.4 L Total Bilirubin 0.5 AST 43 H ALT 21 Alkaline Phosphatase 136 H Troponin I < 50 Total Protein 6.7 Albumin 2.6 L HPI General Mode of arrival: EMS . Date/Time Provider Initiated Documentation: 03/27/23 17:42 . Limitations to Documentation: no limitations . Information obtained by: patient . HPI Narrative: This is a 62-year-old female patient presented by EMS for complaints of substernal chest pain. She states she has had the symptoms for 2 weeks. There is no aggravating or alleviating factors identified. States is consistent with her GERD. She has been taking omeprazole. Typically drinks daily but has not had a drink for 3 days. Denies symptoms of alcohol withdrawal or alcohol withdrawal issues in the past. She has had no fever or chills. She has a chronic smoker's cough she reports that is unchanged and at baseline Related Data Home Medications Medication Instructions Recorded Confirmed gabapentin 300 mg capsule 300 mg PO TID 08/13/20 03/27/23 multivitamin (Multiple Vitamins 1 tab PO DAILY #30 tabs 08/13/20 03/27/23 tablet) albuterol sulfate 90 mcg/actuation 2 puff inhalation Q6H PRN 01/18/22 03/27/23 aerosol inhaler shortness of breath or wheezing #8.5 grams tiotropium 2.5 mcg-olodaterol 2.5 2 puff inhalation Q24H #4 grams 07/19/22 03/27/23 mcg/actuation mist for inhalation (Stiolto Respimat) magnesium 250 mg tablet 250 mg PO DAILY #20 tabs 11/09/22 03/27/23 omeprazole 20 mg capsule,delayed 40 mg (2 x 20 mg) PO BID #0 caps 03/27/23 03/27/23 release Previous Rx's Medication Instructions Recorded multivitamin (Multiple Vitamins 1 tab PO DAILY #30 tabs 08/13/20 tablet) albuterol sulfate 90 mcg/actuation 2 puff inhalation Q6H PRN 01/18/22 aerosol inhaler shortness of breath or wheezing #8.5 grams tiotropium 2.5 mcg-olodaterol 2.5 2 puff inhalation Q24H #4 grams 07/19/22 mcg/actuation mist for inhalation (Stiolto Respimat) magnesium 250 mg tablet 250 mg PO DAILY #20 tabs 11/09/22 omeprazole 20 mg capsule,delayed 40 mg (2 x 20 mg) PO BID #0 caps 03/27/23 release Allergies Allergy/AdvReac Type Severity Reaction Status Date / Time bacitracin Allergy Mild localized Verified 03/27/23 17:43 [From Neosporin redness ([id number])] neomycin Allergy Mild localized Verified 03/27/23 17:43 [From Neosporin redness ([id number])] polymyxin B Allergy Mild localized Verified 03/27/23 17:43 [From Neosporin redness ([id number])] General Stated Complaint: Chest Pain RAHEEM: 3 Review of Systems All systems reviewed & are unremarkable except as noted in HPI and below PFSH All Active Problems (Updated 03/27/23 @ 19:22 by Deanna Weller NP) Hypomagnesemia (Acute) Fluid overload (Acute) Chest pain due to GERD (Acute) Chest wall muscle strain (Acute) Hypokalemia (Acute) COPD exacerbation (Acute) Pulmonary nodule (Acute) COPD (chronic obstructive pulmonary disease) (Chronic) Emphysema lung (Acute) Nicotine dependence, cigarettes, uncomplicated (Acute) Atherosclerosis (Acute) Gastric wall thickening (Acute) Stenosis of right internal carotid artery (Acute) Mass of upper lobe of right lung (Acute) Alcohol abuse (Chronic) Dehydration (Acute) Diarrhea (Acute) Hypomagnesemia (Chronic) Discharge planning issues (Acute) DVT prophylaxis (Acute) B12 deficiency (Acute) Ascites (Acute) Chronic liver disease (Chronic) Weight loss, non-intentional (Acute) Alcoholism (Acute) Macrocytic anemia (Acute) Early satiety (Acute) Folate deficiency (Acute) Hypomagnesemia (Acute) Hypokalemia (Acute) Leg pain (Acute) Cellulitis (Acute) Bilateral leg ulcer (Acute) Medical History Hypomagnesemia Cachexia Hepatic fibrosis Ulcer of lower extremity Hair loss Vitamin D deficiency Chest pain Gastroesophageal reflux disease Hx pulmonary embolism COPD (chronic obstructive pulmonary disease) Chronic vomiting Malnutrition Frequent falls Bilateral leg pain Pancreatitis Diastolic dysfunction Folate deficiency anemia Ascites Bilateral lower extremity edema Unintentional weight loss Alcohol abuse Tobacco dependence syndrome Tobacco abuse Surgical History punch biopsy, skin of ankle, right lateral (11/24/16) negative for malignancy, sparse inflammation and reactive blood vessels foot surgery (~2000) Ligation of fallopian tube (~1999) ENT/Nasal surgery (~2007) Family History Father Lung disease Social History Smoking/Tobacco Use Status: Current every day Tobacco Type: cigarettes Tobacco: How many years used: 45 Quit status: considering quitting Second Hand Exposure: Yes Smoking risk assessment performed?: Yes Alcohol Intake: current Alcohol Intake frequency: a few times a week Alcohol type: wine Drug use: Rarely Substance use type: marijuana Housing: apartment Current gender identity: female Do you feel safe at home: Yes Do you feel safe in your relationship?: Yes Additional Social history: smokes < 1ppd History History Para 0 Hx # Term Pregnancies Multiple births Hx # Pregnancies Ectopic pregnancies AB induced Hx Number of Living Children AB spontaneous Exam Const General: comfortable and no acute distress Nutritional Appearance: average body habitus Orientation: alert, awake and oriented x3 HENMT Head: normal to inspection, normocephalic and atraumatic Mouth: oral mucosae normal Neck Neck: no JVD Resp Effort & Inspection: normal respiratory effort Auscultation: diminished lung sounds bilaterally (no wheezing, no rhonchi) Cardio Rate: regular rate Rhythm: regular rhythm GI Inspection: distended Palpation: soft, no guarding and nontender Skin General skin exam: no rashes or lesions noted Neuro General: patient alert, patient awake and patient oriented x3 Course Vital Signs Vital signs: Vital Signs Temperature 36.2 C L 03/27/23 17:37 Pulse 84 03/27/23 17:37 Respiratory Rate 20 03/27/23 17:37 Blood Pressure 160/110 H 03/27/23 17:37 Pulse Oximetry 99 03/27/23 17:37 Temperature 36.2 C L 03/27/23 17:37 Temperature Source Tympanic 03/27/23 17:37 Pulse 94 H 03/27/23 17:40 Pulse 87 03/27/23 17:41 Respiratory Rate 14 03/27/23 17:41 Respiratory Effort Normal 03/27/23 17:41 Respiratory Depth Normal 03/27/23 17:41 Respiratory Pattern Normal 03/27/23 17:41 Blood Pressure 160/110 H 03/27/23 17:40 Blood Pressure Mean 123 03/27/23 17:40 Blood Pressure Position Sitting 03/27/23 17:37 Pulse Oximetry 99 03/27/23 17:41 Oxygen Delivery Method Room Air 03/27/23 17:37 Oxygen Flow Rate 0 03/27/23 17:37
[2023-03-27 17:52] LABS: Abs Immature Grans 0.05 10^3/uL (0.0-0.06); Absolute Basophil Count 0.06 10^3/uL (0.0-0.2); Absolute Eosinophil Count 0.01 10^3/uL (0.0-0.7); Absolute Lymphocyte Count 0.92 10^3/uL (1.2-3.4); Absolute Monocyte Count 0.66 10^3/uL (0.1-0.8); Absolute Neutrophil Count 5.96 10^3/uL (1.2-6.7); Basophils % 0.8; Eosinophils % 0.1; HCT 33.1 % (36.0-46.0); HGB 10.9 g/dL (11.2-15.7); Immature Grans % 0.7; MCH 35.4 pg (27.0-33.0); MCHC 32.9 % (32.0-36.0); MCV 108 fL (80-95); MPV 9.4 fL (8.0-11.0); Monocytes % 8.6; Neutrophils % 77.8; Platelet Count 350 10^3/uL (130-400); RBC 3.08 10^6/uL (3.93-5.22); RDW 15.3 % (11.7-14.6); RDW-SD 60.6 fL; WBC 7.66 10^3/uL (4.4-10.8)
[2023-03-27 18:06] LABS: Anisocytosis 1+; Diff Comment RBC Morph Reviewed; Macrocytosis 1+
[2023-03-27 18:09] LABS: ALT 21 U/L (14-59); AST 43 U/L (15-37); Albumin 2.6 g/dL (3.4-5.0); Alkaline Phosphatase 136 U/L (46-116); Anion Gap 8.6 mmol/L (3-11); BUN 8 mg/dL (7-18); Bilirubin, Total 0.5 mg/dL (0.2-1.0); CO2 27.4 mmol/L (21.0-32.0); CREATININE 0.7 mg/dL (0.55-1.02); Calcium 8.7 mg/dL (8.5-10.1); Chloride 100 mmol/L (98-107); Estimated GFR 98.34 (mL/min/1.73m2); Glucose 152 mg/dL (74-106); Magnesium 1.4 mg/dL (1.8-2.4); Sodium 136 mmol/L (136-145); Total Protein 6.7 g/dL (6.4-8.2); Troponin I < 50 ng/L (<or=60)
--- NOTE | 2023-03-27 18:26 | DI.VRAD_ITS ---
PROCEDURE INFORMATION: Exam: XR Chest Exam date and time: 03/27/2023 5:59 PM Age: 62 years old Clinical indication: Other: Chest pain TECHNIQUE: Imaging protocol: Radiologic exam of the chest. Views: 2 views. COMPARISON: CR XR PORTABLE CHEST AP 03/14/2023 5:08 PM FINDINGS: Lungs: There is mild pulmonary venous congestion. There is diffuse interstitial edema. Underlying inflammatory or infectious process not excluded. Emphysematous changes are present at the apex of the lungs greater on the right than the left. Pleural spaces: There bilateral xfbfv-tabdnwh-vdmy-left pleural effusions present. No evidence of pneumothorax. Heart/Mediastinum: The heart is mildly enlarged. There is prominence of the mediastinum. Bones/joints: The skeletal structures and soft tissues show no evidence of fracture or other acute processes. Soft tissues: The soft tissues of the extrathoracic region are unremarkable. IMPRESSION: 1. Probable congestive heart failure. Underlying inflammatory or infectious process not excluded. 2. There bilateral piigk-gxxibar-lxgi-left pleural effusions present. 3. Emphysematous changes are present at the apex of the lungs greater on the right than the left. Dictated and Authenticated by: All Avalos MD. Ordering:LURDES Huerta MD
[2023-03-27] MEDS: Pantoprazole 40 MG VIAL IVP (18:27)
[2023-03-27] MEDS: Sucralfate 1 GM TAB PO (19:10)
[2023-03-27] MEDS: Furosemide 20 MG TAB PO (19:18)
[2023-03-27 19:51] LABS: NT-proBNP 5403 pg/mL (<300)
== END 2023-03-27 19:30 | disposition home or self-care (01) ==
PROVIDERS: Emergency Provider Nurse Practitioner Acute Care; PCP Nurse Practitioner Family
DX: R07.9 Chest pain, unspecified (principal); K21.9 Gastro-esophageal reflux disease without esophagitis; E83.42 Hypomagnesemia; E87.70 Fluid overload, unspecified; R19.7 Diarrhea, unspecified; R79.89 Other specified abnormal findings of blood chemistry
CPT/HCPCS: 36415; 80053; 93005; 96374; 96375; 99285; 71046; 83735; 83880; 84484; 85025; 93010; 99284

== ENCOUNTER 2023-03-30 16:25 | Emergency (ER) | payer BC, SELFPAY ==
[2023-03-30] VITALS (14 sets, daily range): BP systolic 163–189; BP diastolic 84–101; PULSE 88–102; RESP 14–23; TEMP 36.1; O2SAT 90–97
--- NOTE | 2023-03-30 16:15 | DI.RAD_ITS ---
Exam(s) XR CHEST 2V PA LATERAL EXAM: XR CHEST 2V PA LATERAL CLINICAL HISTORY: chest pain. TECHNIQUE: 2D digital imaging was performed. COMPARISON: CR,XR XR CHEST 2V PA LATERAL from 03/27/2023 FINDINGS: 2 views: Heart size is upper normal. The mediastinum is not widened. There is a bilateral interstitial pattern throughout both lung brady again noted although this appea rs to have slightly improved indicating that there is probably an element of pulmonary edema. In add ition, there is a horizontal Lane B line in the lateral right lung base now evident, consistent wit h fluid in in interlobular septa which was not previously present. No obvious pleural effusions. Calcification both subclavian arteries is noted. IMPRESSION: Bilateral interstitial disease and new Lane B line in the lateral right lung base. Suspect pulmona ry edema as was evident on 03/27/2023. However, the heart size is upper normal and there are no obvi ous pleural effusions. Therefore infectious etiology and other reasons for interstitial disease also to be considered. DATA REPOSITORY: RADIATION DOSE DELIVERED:
--- NOTE | 2023-03-30 16:15 | RT.EKG_ITS ---
APPROVED REPORT Exam: Resting ECG Reason for Exam: chest pain Patient Location: E HR:101 bpm ECG Measurements Heart Rate 101 AXIS TN 159 P 71 QRSd 120 QRS 37 QT 377 T 20 QTc 488 Conclusion Sinus tachycardia...rate> [address]. No [address] segment or T wave abnormalities to suggest occlusive TX
--- NOTE | 2023-03-30 16:28 | W.ED.GENAD ---
Discharge Plan Disposition Patient Disposition: Against Medical Advice Condition: Stable Discharge Details Clinical Impression: Chest pain Primary Care Provider: MARIANO KEARNEY ED Provider: Emmie Alanis Home Meds and New Rx's Prescriptions: No Action Stiolto Respimat 2.5-2.5 mcg/actuation mist 2 puff inhalation Q24H Qty: 4 12RF albuterol sulfate 90 mcg/actuation HFA aerosol inhaler 2 puff inhalation Q6H PRN (Reason: shortness of breath or wheezing) Qty: 8.5 12RF multivitamin [Multiple Vitamins] Tablet 1 tab PO DAILY Qty: 30 0RF gabapentin 300 mg Capsule 300 mg PO TID magnesium 250 mg tablet 250 mg PO DAILY Qty: 20 0RF omeprazole 20 mg capsule,delayed release(DR/EC) 40 mg PO BID Qty: 0 0RF Discharge Instructions Instructions: Chest Pain (ED), Pulmonary Embolism (ED) Additional Instructions: I would like you to get a CT scan to look for blood clots in your lung or at least stay for a repeat cardiac blood test, both blood clots and heart attacks can be fatal. Return to the emergency department if you change your mind and are willing to get a CT scan or start on blood thinners. Please call your primary care doctor tomorrow to schedule an appointment for tomorrow to follow up on your visit today. Return to the emergency department for new or worsening symptoms including new/worse/different pain, feeling like you are going to pass out, difficulty breathing, or if you have any other concerns. Referrals: MARIANO KEARNEY, [facility] [Primary Care Provider] - Medical Decision Making 63yo F with COPD, GERD, ETOH use disorder, chronic liver disease, presenting via EMS for chest pain x 2-3 weeks. History from patient, EM, and [facility] record review. Per EMS, patient c/o of severe right sided chest pain worse with inspiration. Seen in this ED 03/27/23 for similar symptoms, reassuring cardiac workup and diagnosis presumed acid reflux. Pain has persisted and is somewhat worse. Hypertensive on arrival with SBP 180's, slightly tachycardiac to 97. Will treat for GERD with PO meds, revaluate for cardiac pathology, given tachycardia and pleuertic pain will expand work to eval for potential pulmonary embolism though less likely. EKG sinus tachycardia, appropriate intervals, no ST segment or T wave abnormalities to suggest occlusive OH. CBC reassuring, no leukoctyosis or anemia. CMP with mild hypokaelmia and hypomagnesium, oral repletion ordered. Inital troponin negative. BNP again elevated, 5909 (5403 on 03/27/23, 1819 on 03/14/23). Not overtly volume overloaded on exam. Concerning for developing heart failure. CXR independently reviewed, agree with radiology read below, consistent with pulmonary edema. D-dimer elevated. Unable to get contrasted CT here d/t equipment issue, I discussed with patient my concerns that she may be developing heart failure, having a serious cardiac event, or a blood clot in her lungs. I advised her to allow for transfer to another hospital for CT scan, which she refused after verbalizing understanding of the risks including . I encouraged her to stay here for further evaluation including repeat troponin, echocardiogram, which she again refused. We discussed the option of potentially starting anticoagulation empirically which she declined. She states that she feels better after the medication and will return if her symptoms return or worsen, and that she will seek medical care in the morning after I sleep in my own bed. I encouraged her to return at any point should she change her mind. I have no indication to hold her against her will as she expresses understanding of the risks. Left against medical advice. Medical Records Medical records reviewed: Yes I reviewed the patient's medical records. Imaging Data Radiologic Study: Imaging: X-Ray Radiologist's impression: IMPRESSION: Bilateral interstitial disease and new Lane B line in the lateral right lung base. Suspect pulmonary edema as was evident on 03/27/2023. However, the heart size is upper normal and there are no obvious pleural effusions. Therefore infectious etiology and other reasons for interstitial disease also to be considered. HPI General Mode of arrival: EMS. Date/Time Provider Initiated Documentation: 03/30/23 16:25. Limitations to Documentation: no limitations. Information obtained by: patient and EMS. HPI Narrative: 63yo F with COPD, GERD, ETOH use disorder, chronic liver disease, presenting via EMS for chest pain. History from patient, EM, and [facility] record review. Per EMS, patient c/o of severe right sided chest pain worse with inspiration. Patient reports pain has been present for 2-3 weeks, initially intermittent now constant and severe, worse with deep breathing. Unrelieved by home tylenol or tums. Does not radiate, no back pain. Some shortness of breath at baseline, not appreciably worse currently. Occasional lightheadedness with ambulation, no syncope. No LE edema. Reports abdomen is bloated, not any worse than usual. Seen in this ED 03/27/23 for similar symptoms, reassuring cardiac workup and diagnosis presumed acid reflux. She is otherwise in her usual state of health with no fevers, chills, rash, nausea, vomiting, abdominal pain, numbness, weakness, or other concerns. Related Data Home Medications Medication Instructions Recorded Confirmed gabapentin 300 mg capsule 300 mg PO TID 08/13/20 03/30/23 multivitamin (Multiple Vitamins 1 tab PO DAILY #30 tabs 08/13/20 03/30/23 tablet) albuterol sulfate 90 mcg/actuation 2 puff inhalation Q6H PRN 01/18/22 03/30/23 aerosol inhaler shortness of breath or wheezing #8.5 grams tiotropium 2.5 mcg-olodaterol 2.5 2 puff inhalation Q24H #4 grams 07/19/22 03/30/23 mcg/actuation mist for inhalation (Stiolto Respimat) magnesium 250 mg tablet 250 mg PO DAILY #20 tabs 11/09/22 03/30/23 omeprazole 20 mg capsule,delayed 40 mg (2 x 20 mg) PO BID #0 caps 03/27/23 03/30/23 release Previous Rx's Medication Instructions Recorded multivitamin (Multiple Vitamins 1 tab PO DAILY #30 tabs 08/13/20 tablet) albuterol sulfate 90 mcg/actuation 2 puff inhalation Q6H PRN 01/18/22 aerosol inhaler shortness of breath or wheezing #8.5 grams tiotropium 2.5 mcg-olodaterol 2.5 2 puff inhalation Q24H #4 grams 07/19/22 mcg/actuation mist for inhalation (Stiolto Respimat) magnesium 250 mg tablet 250 mg PO DAILY #20 tabs 11/09/22 omeprazole 20 mg capsule,delayed 40 mg (2 x 20 mg) PO BID #0 caps 03/27/23 release Allergies Allergy/AdvReac Type Severity Reaction Status Date / Time bacitracin Allergy Mild localized Verified 03/30/23 17:12 [From Neosporin redness ([id number])] neomycin Allergy Mild localized Verified 03/30/23 17:12 [From Neosporin redness ([id number])] polymyxin B Allergy Mild localized Verified 03/30/23 17:12 [From Neosporin redness ([id number])] General Stated Complaint: Chest Pain RAHEEM: 3 Review of Systems Narrative: see HPI PFSH All Active Problems (Updated 03/30/23 @ 18:10 by Emmie Alanis MD) Chest pain (Acute) Hypomagnesemia (Acute) Fluid overload (Acute) Chest pain due to GERD (Acute) Chest wall muscle strain (Acute) Hypokalemia (Acute) COPD exacerbation (Acute) Pulmonary nodule (Acute) COPD (chronic obstructive pulmonary disease) (Chronic) Emphysema lung (Acute) Nicotine dependence, cigarettes, uncomplicated (Acute) Atherosclerosis (Acute) Gastric wall thickening (Acute) Stenosis of right internal carotid artery (Acute) Mass of upper lobe of right lung (Acute) Alcohol abuse (Chronic) Dehydration (Acute) Diarrhea (Acute) Hypomagnesemia (Chronic) Discharge planning issues (Acute) DVT prophylaxis (Acute) B12 deficiency (Acute) Ascites (Acute) Chronic liver disease (Chronic) Weight loss, non-intentional (Acute) Alcoholism (Acute) Macrocytic anemia (Acute) Early satiety (Acute) Folate deficiency (Acute) Hypomagnesemia (Acute) Hypokalemia (Acute) Leg pain (Acute) Cellulitis (Acute) Bilateral leg ulcer (Acute) Medical History Hypomagnesemia Cachexia Hepatic fibrosis Ulcer of lower extremity Hair loss Vitamin D deficiency Chest pain Gastroesophageal reflux disease Hx pulmonary embolism COPD (chronic obstructive pulmonary disease) Chronic vomiting Malnutrition Frequent falls Bilateral leg pain Pancreatitis Diastolic dysfunction Folate deficiency anemia Ascites Bilateral lower extremity edema Unintentional weight loss Alcohol abuse Tobacco dependence syndrome Tobacco abuse Surgical History punch biopsy, skin of ankle, right lateral (11/24/16) negative for malignancy, sparse inflammation and reactive blood vessels foot surgery (~2000) Ligation of fallopian tube (~1999) ENT/Nasal surgery (~2007) Family History Father Lung disease Social History Smoking/Tobacco Use Status: Current every day Tobacco Type: cigarettes Tobacco: How many years used: 45 Quit status: considering quitting Second Hand Exposure: Yes Smoking risk assessment performed?: Yes Alcohol Intake: current Alcohol Intake frequency: a few times a week Alcohol type: wine Drug use: Rarely Substance use type: marijuana Housing: apartment Current gender identity: female Do you feel safe at home: Yes Do you feel safe in your relationship?: Yes Additional Social history: smokes < 1ppd History History Para 0 Hx # Term Pregnancies Multiple births Hx # Pregnancies Ectopic pregnancies AB induced Hx Number of Living Children AB spontaneous Exam Narrative Exam Narrative: General: Alert, appears distressed Head: Normocephalic, atraumatic Neck: Trachea midline, Neck supple. ENT: MMM. No oropharygeal lesions or exudate. Cardiac: Tachycardiac, regular, no murmurs appreciated Resp: Tachypneic otherwise no increased work of breathing. CTAB. Abd: Soft, nontender. Ascites. : No suprapubic tenderness. Extremities: No deformities. No peripheral edema. Neurologic: GCS 15. Moves all extremities freely against gravity Course Vital Signs Vital signs: Vital Signs Temperature 36.1 C L 03/30/23 16:22 Pulse 97 H 03/30/23 16:22 Respiratory Rate 19 03/30/23 16:22 Blood Pressure 183/101 H 03/30/23 16:22 Pulse Oximetry 97 03/30/23 16:22 Temperature 36.1 C L 03/30/23 16:22 Temperature Source Temporal Artery Scan 03/30/23 16:22 Pulse 97 H 03/30/23 16:22 Respiratory Rate 19 03/30/23 16:22 Blood Pressure 183/101 H 03/30/23 16:22 Blood Pressure Position Supine 03/30/23 16:22 Pulse Oximetry 97 03/30/23 16:22 Oxygen Delivery Method Room Air 03/30/23 16:22 Oxygen Flow Rate 0 03/30/23 16:22 Pain Level 10 03/30/23 16:22
[2023-03-30 16:48] LABS: Abs Immature Grans 0.04 10^3/uL (0.0-0.06); Absolute Basophil Count 0.09 10^3/uL (0.0-0.2); Absolute Eosinophil Count 0.01 10^3/uL (0.0-0.7); Absolute Lymphocyte Count 1.79 10^3/uL (1.2-3.4); Absolute Monocyte Count 0.67 10^3/uL (0.1-0.8); Absolute Neutrophil Count 6.96 10^3/uL (1.2-6.7); Basophils % 0.9; Eosinophils % 0.1; HCT 34.5 % (36.0-46.0); HGB 11.8 g/dL (11.2-15.7); Immature Grans % 0.4; Lymphocytes % 18.7; MCH 34.7 pg (27.0-33.0); MCHC 34.2 % (32.0-36.0); MCV 102 fL (80-95); MPV 9.1 fL (8.0-11.0); Neutrophils % 72.9; Platelet Count 343 10^3/uL (130-400); RDW 14.6 % (11.7-14.6); RDW-SD 54.9 fL; WBC 9.56 10^3/uL (4.4-10.8)
[2023-03-30 17:07] LABS: ALT 21 U/L (14-59); AST 37 U/L (15-37); Albumin 2.7 g/dL (3.4-5.0); Alkaline Phosphatase 144 U/L (46-116); Anion Gap 11.4 mmol/L (3-11); BUN 8 mg/dL (7-18); Bilirubin, Total 0.4 mg/dL (0.2-1.0); CO2 28.6 mmol/L (21.0-32.0); CREATININE 0.6 mg/dL (0.55-1.02); Calcium 11.3 mg/dL (8.5-10.1); Chloride 98 mmol/L (98-107); Estimated GFR 101.42 (mL/min/1.73m2); Glucose 86 mg/dL (74-106); Potassium 3.1 mmol/L (3.5-5.1); Sodium 138 mmol/L (136-145); Total Protein 6.9 g/dL (6.4-8.2); Troponin I < 50 ng/L (<or=60)
[2023-03-30] MEDS: Lidocaine 2% Viscous 1 ML Solution 15 ML MC (17:08)
[2023-03-30] MEDS: Mylanta Suspension 30 ML CUP 10 ML PO (17:08)
[2023-03-30] MEDS: Sucralfate 1 GM TAB 2 GM PO (17:08)
[2023-03-30] MEDS: Hyoscyamine 0.125 MG SL/ORAL/CHEW PO (17:09)
[2023-03-30 17:13] LABS: Magnesium 1.1 mg/dL (1.8-2.4); NT-proBNP 5909 pg/mL (<300)
[2023-03-30 17:25] LABS: D-Dimer 860 ng/mlFEU (<500)
[2023-03-30] MEDS: Potassium Chloride 20 MEQ TABCR 40 MEQ PO (18:10)
[2023-03-30] MEDS: Acetaminophen 500 MG TAB 1000 MG PO (18:10)
[2023-03-30] MEDS: Magnesium Gluconate 500 MG TAB PO (18:12)
[2023-03-30] MEDS: Mylanta Suspension 30 ML CUP (18:56)
== END 2023-03-30 19:14 | disposition left against medical advice (07) ==
PROVIDERS: Emergency Provider Student in an Organized Health Care Education/Training Program; PCP Nurse Practitioner Family
DX: R07.9 Chest pain, unspecified (principal); R79.89 Other specified abnormal findings of blood chemistry; Z53.29 Procedure and treatment not carried out because of patient's decision for other reasons; R91.8 Other nonspecific abnormal finding of lung field; J44.9 Chronic obstructive pulmonary disease, unspecified
CPT/HCPCS: 36415; 80053; 93005; 99285; 71046; 83735; 83880; 84484; 85025; 85379; 93010; J3490

== ENCOUNTER 2023-04-06 08:55 | Inpatient (IN) | payer BC, SELFPAY ==
[2023-04-06] VITALS (13 sets, daily range): BP systolic 106–136; BP diastolic 77–108; PULSE 87–101; RESP 14–20; TEMP 36.7–37.3; O2SAT 95–100
--- NOTE | 2023-04-06 08:45 | RT.EKG_ITS ---
APPROVED REPORT Exam: Resting ECG Reason for Exam: chest pain Patient Location: E HR:90 bpm ECG Measurements Heart Rate 90 AXIS UT 145 P 77 QRSd 117 QRS 63 QT 427 T 33 QTc 521 Conclusion Sinus rhythm...normal P axis, V-rate 60- 99 Probable left atrial enlargement...P >50mS, <-0.10mV V1 Incomplete right bundle branch block...QRSd >112, terminal axis(90,270) Prolonged QT interval...QTc >500mS sinus rhythm, normal axis, normal intervals, RBBB unchanged from march
--- NOTE | 2023-04-06 09:00 | DI.CT_ITS ---
Exam(s) CT CHEST PE CTA EXAM: CT CHEST PE CTA CLINICAL HISTORY: dyspnea, hx of pe, elevated ddimer. TECHNIQUE: Imaging Protocol: CT angiography of the chest was performed using pulmonary embolus tom col. Multi planar reconstructions were performed. CONTRAST MATERIAL: Intravenous: Omnipaque 350 Contrast volume: 100 cc COMPARISON: CT CT CHEST WO from 08/31/2022 FINDINGS: CHEST: PULMONARY ARTERIES: There are no intraluminal filling defects to suggest acute pulmonary emboli. LUNGS: There are COPD changes. Unchanged scarring in the sub apical right upper lobe is again noted, unchanged.. There is subpleural infiltrate in the posterior basal segment of the right lower lobe, not evident on prior CT scan of 08/31/2022 and there is also some infiltrate evident in the posterior segment of the right upper lobe which was also not previously present. A centrally cavitated thick- walled nodular density in the superior segment of the right lower lobe measuring 11 x 12 mm is noted, more prominent than previous. There is minimal amount of right pleural fluid. No pleural fluid on the left side. No confluent infiltrates in the left lung. MEDIASTINUM: There is no obvious hilar adenopathy. No subcarinal adenopathy. There is enlarged lymp h node noted in the left paratracheal region, more so than previous. This measures approximately 1.8 x 1.4 cm. No axillary nor supraclavicular adenopathy evident. CARDIAC: Heart size is upper normal. There is no pericardial effusion.Caliber of the thoracic aorta is within normal limits. There is no significant shift of the interventricular septum. PARTIALLY VISUALIZED UPPERMOST ABDOMEN: No obvious findings OSSEOUS: No significant osseous lesions.Loss of height of superior endplate of L1 is unchanged from p revious. There are multiple healed right-sided rib fractures. No new fractures evident. There is a step-off at the mid cyst sternum which was not previously present. May represent a fracture althoug h may be exaggerated by motion artifact. There is no lytic lesion at this level. IMPRESSION: 1. No evidence of acute pulmonary emboli. However, there is new infiltrate in the right upper and ri ght lower lobes, this in addition to a small cavitated nodule in the superior segment of the right lo wer lobe which measures approximately 1.1 x 1.2 cm and exhibits thicker wall than previous. This is infectious versus malignant. 2. Although there is no obvious hilar adenopathy, there is in increased size left paratracheal lymph node measuring approximately 18 x 14 mm. 3. No obvious lytic bone lesions. Healed lower right rib fractures noted. With no acute nor patholo gic appearing fractures. Also stable loss of height of L1 vertebral body. Sternal fracture at the m id body level. This was not evident on prior CT scan of August 2022. RADIATION DOSE DELIVERED: Total DLP DATA REPOSITORY: All CT scans at this facility are submitted to the National Radiology Data Registry (NRDR) Dose Index Registry (DIR) with the [employer] (A[employer]). RADIATION OPTIMIZATION: All CT scans at this facility use at least one of these dose optimization te chniques: automated exposure control; mA and/or kV adjustment per patient size (includes targeted exa ms where dose is matched to clinical indication); or iterative reconstruction.
--- NOTE | 2023-04-06 09:00 | DI.US_ITS ---
Exam(s) US ABDOMEN EXAM: US ABDOMEN CLINICAL HISTORY: ascites, hx of cirrhosis, diarrhea, nausea, PVT? TECHNIQUE: Ultrasound of complete upper abdomen performed using standard protocol. COMPARISON: US ABDOMEN ULTRASOUND (P) from Prior CT scan July 2016 also reviewed. FINDINGS: There is no ascites evident. LIVER: Liver appears echogenic indicating steatosis. There are no discrete focal hepatic lesions zaira ntified. GALLBLADDER/BILIARY: There are no gallstones. No gallbladder wall edema nor pericholecystic fluid. The common hepatic duct isnot dilated, measuring upper normal-6mm at the level of deon hepatis. PANCREAS: No obvious findings. Overlying bowel gas. SPLEEN: The spleen is not enlarged and there are no intrasplenic lesions evident. KIDNEYS:Kidneys exhibit normal size with no evidence of solid mass, calculus, nor hydronephrosis. No cortical cysts evident. ABDOMINAL AORTA: There is no evidence of abdominal aortic aneurysm. IVC: Normal diameter where visualized. IMPRESSION: 1. No evidence of cholelithiasis nor dilatation of the biliary tree. 2. Liver appears echogenic implying an element of steatosis. There no discrete focal hepatic lesion s. 3. No other ultrasound findings in the right upper quadrant and there is no ascites. DATA REPOSITORY:
[2023-04-06 09:07] LABS: Abs Immature Grans 0.05 10^3/uL (0.0-0.06); Absolute Eosinophil Count 0.11 10^3/uL (0.0-0.7); Absolute Lymphocyte Count 1.17 10^3/uL (1.2-3.4); Absolute Monocyte Count 0.64 10^3/uL (0.1-0.8); Absolute Neutrophil Count 9.91 10^3/uL (1.2-6.7); Basophils % 0.3; Eosinophils % 0.9; HCT 32.3 % (36.0-46.0); Immature Grans % 0.4; Lymphocytes % 9.8; MCH 34.8 pg (27.0-33.0); MCHC 34.1 % (32.0-36.0); MCV 102 fL (80-95); MPV 10.2 fL (8.0-11.0); Monocytes % 5.4; Neutrophils % 83.2; Platelet Count 265 10^3/uL (130-400); RBC 3.16 10^6/uL (3.93-5.22); RDW 14.5 % (11.7-14.6); RDW-SD 54.6 fL; WBC 11.91 10^3/uL (4.4-10.8)
[2023-04-06 09:09] LABS: Absolute Basophil Count 0.04 10^3/uL (0.0-0.2)
[2023-04-06] MEDS: Lactated Ringers 1,000 ML 1000 ML IV (09:10)
--- NOTE | 2023-04-06 09:17 | W.ED.GENAD ---
Discharge Plan Disposition Patient Disposition: Admit to [facility] Discharge Details Clinical Impression: Chronic liver disease, Alcoholism, QT prolongation, Hypokalemia, Hypomagnesemia Admit Date/Time: 04/06/23 12:24 Admit Provider: Yasmeen Squires Attending Provider: Yasmeen Squires Primary Care Provider: MARIANO KEARNEY ED Provider: Leanna Wang Discharge Data Discharge Date/Time-TO BE ENTERED AT DEPARTURE: 04/06/23 13:32 Medical Decision Making 63-year-old female, chronically ill, history of alcoholism, denies alcohol since Tuesday, denies any history of withdrawal, coming in with chest pain and shortness of breath for the past month Afebrile, alert and oriented, dyspnea on exertion, no hypoxia noted in the emergency department at rest, lungs clear to auscultation, cardiac rate rhythm regular, no peripheral edema, distal pulses intact, pupils equal round reactive to light and accommodation, no visible signs of trauma to head or cervical spine, tenderness with palpation to sternal region of chest, no crepitus, no abdominal tenderness, distended abdomen, soft, no rebound or guarding, no abdominal bruit or pulsatile mass Ultrasound was ordered initially secondary to concern for ascites on abdominal exam, no obvious ascites noted on ultrasound and no portal venous thrombus noted No sign of acute alcohol withdrawal throughout this encounter Patient does have pneumonia on CTA, this was ordered secondary to elevated D-dimer on last encounter where CT was not available and patient left the hospital prior to CT being performed Evidence of bilateral lower lobe infiltrate with sternal fracture, patient does not endorse a known fall in the past month The case is discussed with Dr. Mcpherson, he states that he is actually able to repair sternal fracture, however patient has prolongation of her QTc with hypomagnesemia and hypokalemia and will need to be medically cleared for surgical intervention if patient is candidate She in the emergency department had a potassium of 2.7, she was given 20 mEq of IV potassium and 40 of p.o. She was also given 4 g of IV magnesium with a mag of 1.3 She was on telemetry monitoring throughout this encounter use drug No evidence of acute alcohol withdrawal was noted throughout this encounter Case discussed with Dr. Squires, will admit hospital for further evaluation and consultation HPI General Date/Time Provider Initiated Documentation: 04/06/23 08:59. HPI Narrative: This 63-year-old female presents with chest pain, weakness, shortness of breath. States she feels tired and feels like she is having trouble breathing. Denies any urinary symptoms. Has reported diarrhea. Denies any blood in stool. States this is her third visit for similar presentation. States she stopped drinking alcohol on Tuesday. Denies any withdrawal signs or symptoms. States she typically drinks 4 martinis daily. States during her last encounter she was told that she needed a CTA of her chest which she declined at the time secondary to lack of capacity to perform the test at this facility. She declined transfer to [facility]. She states her symptoms have not worsened but have remained constant since that time. Denies any weight gain. Denies any orthopnea. States she also stopped smoking on Tuesday. Related Data Home Medications Medication Instructions Recorded Confirmed gabapentin 300 mg capsule 300 mg PO TID 08/13/20 04/06/23 multivitamin (Multiple Vitamins 1 tab PO DAILY #30 tabs 08/13/20 04/06/23 tablet) albuterol sulfate 90 mcg/actuation 2 puff inhalation Q6H PRN 01/18/22 04/06/23 aerosol inhaler shortness of breath or wheezing #8.5 grams tiotropium 2.5 mcg-olodaterol 2.5 2 puff inhalation Q24H #4 grams 07/19/22 04/06/23 mcg/actuation mist for inhalation (Stiolto Respimat) magnesium 250 mg tablet 250 mg PO DAILY #20 tabs 11/09/22 04/06/23 omeprazole 20 mg capsule,delayed 40 mg (2 x 20 mg) PO BID #0 caps 03/27/23 04/06/23 release Previous Rx's Medication Instructions Recorded multivitamin (Multiple Vitamins 1 tab PO DAILY #30 tabs 08/13/20 tablet) albuterol sulfate 90 mcg/actuation 2 puff inhalation Q6H PRN 01/18/22 aerosol inhaler shortness of breath or wheezing #8.5 grams tiotropium 2.5 mcg-olodaterol 2.5 2 puff inhalation Q24H #4 grams 07/19/22 mcg/actuation mist for inhalation (Stiolto Respimat) magnesium 250 mg tablet 250 mg PO DAILY #20 tabs 11/09/22 omeprazole 20 mg capsule,delayed 40 mg (2 x 20 mg) PO BID #0 caps 03/27/23 release Allergies Allergy/AdvReac Type Severity Reaction Status Date / Time bacitracin Allergy Mild localized Verified 03/30/23 17:12 [From Neosporin redness ([id number])] neomycin Allergy Mild localized Verified 03/30/23 17:12 [From Neosporin redness ([id number])] polymyxin B Allergy Mild localized Verified 03/30/23 17:12 [From Neosporin redness ([id number])] General Stated Complaint: Chest Pain RAHEEM: 2 PFSH All Active Problems (Updated 04/07/23 @ 08:37 by AMIE Smallwood) H/O ETOH abuse (Acute) Tobacco use disorder (Acute 01/28/14) QT prolongation (Acute) Pleural effusion (Acute) Chest pain (Acute) Hypomagnesemia (Acute) Fluid overload (Acute) Chest pain due to GERD (Acute) Chest wall muscle strain (Acute) Hypokalemia (Acute) COPD exacerbation (Acute) Pulmonary nodule (Acute) COPD (chronic obstructive pulmonary disease) (Chronic) Emphysema lung (Acute) Nicotine dependence, cigarettes, uncomplicated (Acute) Atherosclerosis (Acute) Gastric wall thickening (Acute) Stenosis of right internal carotid artery (Acute) Mass of upper lobe of right lung (Acute) Alcohol abuse (Chronic) Dehydration (Acute) Diarrhea (Acute) Hypomagnesemia (Chronic) Discharge planning issues (Acute) DVT prophylaxis (Acute) B12 deficiency (Acute) Ascites (Acute) Chronic liver disease (Chronic) Weight loss, non-intentional (Acute) Alcoholism (Acute) Macrocytic anemia (Acute) Early satiety (Acute) Folate deficiency (Acute) Hypomagnesemia (Acute) Hypokalemia (Acute) Leg pain (Acute) Cellulitis (Acute) Bilateral leg ulcer (Acute) Medical History Hypomagnesemia Cachexia Hepatic fibrosis Ulcer of lower extremity Hair loss Vitamin D deficiency Chest pain Gastroesophageal reflux disease Hx pulmonary embolism COPD (chronic obstructive pulmonary disease) Chronic vomiting Malnutrition Frequent falls Bilateral leg pain Pancreatitis Diastolic dysfunction Folate deficiency anemia Ascites Bilateral lower extremity edema Unintentional weight loss Alcohol abuse Tobacco dependence syndrome Tobacco abuse Surgical History punch biopsy, skin of ankle, right lateral (11/24/16) negative for malignancy, sparse inflammation and reactive blood vessels foot surgery (~2000) Ligation of fallopian tube (~1999) ENT/Nasal surgery (~2007) Family History Father Lung disease Social History Smoking/Tobacco Use Status: Former Tobacco Use Tobacco: How many years used: 45 Quit status: considering quitting Second Hand Exposure: Yes Smoking risk assessment performed?: Yes Alcohol Intake: current Alcohol Intake frequency: a few times a week Alcohol type: wine Drug use: Rarely Substance use type: marijuana Housing: apartment Current gender identity: female Do you feel safe at home: Yes Do you feel safe in your relationship?: Yes Additional Social history: smokes < 1ppd History History Para 0 Hx # Term Pregnancies Multiple births Hx # Pregnancies Ectopic pregnancies AB induced Hx Number of Living Children AB spontaneous Course Vital Signs Vital signs: Vital Signs Temperature 36.7 C 04/06/23 08:49 Pulse 88 04/06/23 08:49 Respiratory Rate 18 04/06/23 08:49 Blood Pressure 107/77 04/06/23 08:49 Pulse Oximetry 100 04/06/23 08:49 Temperature 36.7 C 04/06/23 08:49 Temperature Source Skin 04/06/23 08:49 Pulse 88 04/06/23 08:49 Respiratory Rate 18 04/06/23 08:49 Respiratory Effort Short of Breath 04/06/23 09:07 Blood Pressure 107/77 04/06/23 08:49 Blood Pressure Position Supine 04/06/23 08:49 Pulse Oximetry 100 04/06/23 08:49 Oxygen Delivery Method Room Air 04/06/23 08:49 Oxygen Flow Rate 0 04/06/23 08:49 Pain Level 10 04/06/23 08:49 Lab/Test Results Lab/Test Results: Laboratory Tests Range/Units 04/06/23 08:59 WBC (4.4-10.8) 10^3/uL 11.91 H RBC (3.93-5.22) 10^6/uL 3.16 L Hgb (11.2-15.7) g/dL 11.0 L Hct (36.0-46.0) % 32.3 L MCV (80-95) fL 102 H MCH (27.0-33.0) pg 34.8 H MCHC (32.0-36.0) % 34.1 RDW (11.7-14.6) % 14.5 Plt Count (130-400) 10^3/uL 265 MPV (8.0-11.0) fL 10.2 Immature Gran % 0.4 Neutrophils % 83.2 Lymphocytes % 9.8 Monocytes % 5.4 Eosinophils % 0.9 Basophils % 0.3 Nucleated RBC % (0.0-0.3) % 0.0 Absolute Neutrophils (1.2-6.7) 10^3/uL 9.91 H Absolute Lymphocytes (1.2-3.4) 10^3/uL 1.17 L Absolute Monocytes (0.1-0.8) 10^3/uL 0.64 Absolute Eosinophils (0.0-0.7) 10^3/uL 0.11 Absolute Basophils (0.0-0.2) 10^3/uL 0.04 Lipase Cancelled Ethyl Alcohol Cancelled Critical Care Time Critical Care Time Attestation: Approximately 60 minutes of critical care time was performed secondary to hypomagnesemia, hypokalemia, QTc prolongation, acute pneumonia with telemetry monitoring, EKG review and interpretation, diagnostic lab review and interpretation, IV magnesium bolus, IV potassium, p.o. potassium, monitoring for acute alcohol withdrawal with [facility] protocol CT imaging/diagnostic review, and ultimately admission to the intensive care unit,
[2023-04-06 09:27] LABS: ALT 23 U/L (14-59); AST 54 U/L (15-37); Albumin 2.5 g/dL (3.4-5.0); Alkaline Phosphatase 140 U/L (46-116); Anion Gap 8.7 mmol/L (3-11); BUN 5 mg/dL (7-18); Bilirubin, Total 1.2 mg/dL (0.2-1.0); CO2 29.3 mmol/L (21.0-32.0); CREATININE 0.8 mg/dL (0.55-1.02); Calcium 7.9 mg/dL (8.5-10.1); Chloride 96 mmol/L (98-107); Estimated GFR 83.26 (mL/min/1.73m2); Glucose 110 mg/dL (74-106); Lipase 14 U/L (16-77); Magnesium 1.3 mg/dL (1.8-2.4); Sodium 134 mmol/L (136-145); Total Protein 6.3 g/dL (6.4-8.2); Troponin I < 50 ng/L (<or=60)
[2023-04-06 09:32] LABS: ETHANOL BLOOD < 3.0 mg/dL (<10)
[2023-04-06 09:33] LABS: Potassium 2.7 mmol/L (3.5-5.1)
[2023-04-06 09:35] LABS: Ammonia 23 umol/L (11-32)
[2023-04-06 09:44] LABS: NT-proBNP 8653 pg/mL (<300)
[2023-04-06 09:48] LABS: COVID-19 PCR Negative (Negative); Influenza A PCR Negative (Negative); Influenza B PCR Negative (Negative); RSV PCR Negative (Negative)
[2023-04-06 10:00] LABS: Source Nasopharynx
[2023-04-06] MEDS: MAGNESIUM SULFATE 4 GM/100 ML BAG IVPB (10:13)
[2023-04-06] MEDS: Potassium Chloride 20 MEQ TABCR 40 MEQ PO (10:14)
[2023-04-06] MEDS: POTASSIUM CHLORIDE 20 MEQ/100 ML BAG 50 MEQ IVPB (10:23)
[2023-04-06] MEDS: Normal Saline - Diluent 50 ML VIAL IJ (10:45)
[2023-04-06] MEDS: Omnipaque 350 MG/ML 100 ML BTL IJ (10:49)
--- NOTE | 2023-04-06 12:03 | SCONE_ITS ---
Date of service: 04/06/23 Time of Service: 12:03 Assessment and Plan Assessment and plan (1) Chest pain: Status: Acute Assessment and plan: There are certainly some features on the CT scan that do's and consistent with a midsternal fracture, however, the physical exam would not support that diagnosis. Certainly, there is no significant crepitus, and although she is tender in the area, it does not seem consistent with acute sternal fracture. For now, I would continue with basic therapies to improve pulmonary toileting, which include a multimodal regimen to analgesia. I will see her again tomorrow, and reassess the sternum. Even if there is a fracture, at this point there is no acute indications for surgical repair. Generally, the sternum appears fairly well aligned, and if there is an acute fracture here, I think will heal with a little more time. If there is nonunion, we can always stabilize the sternum with a delayed operation if needed. History of Present Illness History of Present Illness Chief Complaint: Chest pain Narrative: Fannie is 63 years old. She comes to the emergency department with a chief complaint of chest pain. She says it similar in nature to pain that she experienced about 2 weeks ago. This was associated with coughing. Is a sharp pain that radiates across the front of her chest. While in the emergency department, she underwent a CT of the chest that raised concern for sternal fracture. I was asked to see her regarding the fracture. Review of Systems Constitutional Constitutional: Reports fatigue, Denies fever(s) and Reports frequent falls Eyes Eyes: Reports system reviewed and no additional complaints, except as documented Cardiovascular Cardiovascular: Reports chest pain, Denies irregular heart rhythm, Reports dyspnea and Reports dyspnea on exertion Respiratory Respiratory: Reports chest congestion, Reports cough, Reports pain with cough, Reports dyspnea and Reports dyspnea on exertion Gastrointestinal Gastrointestinal: Reports abdominal pain, Reports belching, Reports dyspepsia and Reports heartburn Musculoskeletal Musculoskeletal: Reports back pain and Reports myalgias Neurologic Neurologic: Denies behavioral changes and Reports frequent falls Psychiatric Psychiatric: Denies anxiety and Denies behavioral changes Endocrine Endocrine: Reports fatigue Hematologic/Lymphatic Hematologic/Lymphatic: Denies easy bleeding and Denies easy bruising PFSH All Active Problems (Updated 03/30/23 @ 18:10 by Emmie Alanis MD) Chest pain (Acute) Hypomagnesemia (Acute) Fluid overload (Acute) Chest pain due to GERD (Acute) Chest wall muscle strain (Acute) Hypokalemia (Acute) COPD exacerbation (Acute) Pulmonary nodule (Acute) COPD (chronic obstructive pulmonary disease) (Chronic) Emphysema lung (Acute) Nicotine dependence, cigarettes, uncomplicated (Acute) Atherosclerosis (Acute) Gastric wall thickening (Acute) Stenosis of right internal carotid artery (Acute) Mass of upper lobe of right lung (Acute) Alcohol abuse (Chronic) Dehydration (Acute) Diarrhea (Acute) Hypomagnesemia (Chronic) Discharge planning issues (Acute) DVT prophylaxis (Acute) B12 deficiency (Acute) Ascites (Acute) Chronic liver disease (Chronic) Weight loss, non-intentional (Acute) Alcoholism (Acute) Macrocytic anemia (Acute) Early satiety (Acute) Folate deficiency (Acute) Hypomagnesemia (Acute) Hypokalemia (Acute) Leg pain (Acute) Cellulitis (Acute) Bilateral leg ulcer (Acute) Medical History Hypomagnesemia Cachexia Hepatic fibrosis Ulcer of lower extremity Hair loss Vitamin D deficiency Chest pain Gastroesophageal reflux disease Hx pulmonary embolism COPD (chronic obstructive pulmonary disease) Chronic vomiting Malnutrition Frequent falls Bilateral leg pain Pancreatitis Diastolic dysfunction Folate deficiency anemia Ascites Bilateral lower extremity edema Unintentional weight loss Alcohol abuse Tobacco dependence syndrome Tobacco abuse Surgical History punch biopsy, skin of ankle, right lateral (11/24/16) negative for malignancy, sparse inflammation and reactive blood vessels foot surgery (~2000) Ligation of fallopian tube (~1999) ENT/Nasal surgery (~2007) Family History Father Lung disease Social History Smoking/Tobacco Use Status: Former Tobacco Use Tobacco: How many years used: 45 Quit status: considering quitting Second Hand Exposure: Yes Smoking risk assessment performed?: Yes Alcohol Intake: current Alcohol Intake frequency: a few times a week Alcohol type: wine Drug use: Rarely Substance use type: marijuana Housing: apartment Current gender identity: female Do you feel safe at home: Yes Do you feel safe in your relationship?: Yes Additional Social history: smokes < 1ppd History History 2 Para 0 Hx # Term Pregnancies Multiple births Hx # Pregnancies Ectopic pregnancies AB induced Hx Number of Living Children AB spontaneous Exam Const General: cooperative and comfortable Nutritional Appearance: average body habitus Orientation: alert, awake and oriented x3 HENMT Head: normal to inspection Eyes General: appearance normal, both eyes and all related structures Chest Other: Small amount of ecchymosis on the left upper chest wall. Sternum is stable. There is no crepitus. Mild tenderness. Results Last Vital Signs Temp 98.1 F 04/06/23 08:49 Pulse 88 04/06/23 08:49 Resp 18 04/06/23 08:49 BP 107/77 04/06/23 08:49 Pulse Ox 100 04/06/23 08:49 Labs 04/06/23 08:59 04/06/23 08:59 Labs: Laboratory Results - last 24 hr 04/06/23 04/06/23 04/06/23 08:59 08:59 08:59 WBC 11.91 H RBC 3.16 L Hgb 11.0 L Hct 32.3 L MCV 102 H MCH 34.8 H MCHC 34.1 RDW 14.5 Plt Count 265 MPV 10.2 Immature Gran % 0.4 Neutrophils % 83.2 Lymphocytes % 9.8 Monocytes % 5.4 Eosinophils % 0.9 Basophils % 0.3 Nucleated RBC % 0.0 Absolute Neutrophils 9.91 H Absolute Lymphocytes 1.17 L Absolute Monocytes 0.64 Absolute Eosinophils 0.11 Absolute Basophils 0.04 Sodium 134 L Potassium 2.7 L* Chloride 96 L Carbon Dioxide 29.3 Anion Gap 8.7 BUN 5 L Creatinine 0.8 Est GFR (CKD-EPI 2020) 83.26 Glucose 110 H Calcium 7.9 L Magnesium 1.3 L Total Bilirubin 1.2 H AST 54 H ALT 23 Alkaline Phosphatase 140 H Ammonia Troponin I < 50 NT-Pro-B Natriuret Pep Total Protein 6.3 L Albumin 2.5 L Lipase 14 L Cancelled Ethyl Alcohol < 3.0 Cancelled COVID-19 Source Nasopharynx SARS-CoV-2 (PCR) Negative Influenza Type A (PCR) Negative Influenza Type B (PCR) Negative RSV (PCR) Negative 04/06/23 09:10 WBC RBC Hgb Hct MCV MCH MCHC RDW Plt Count MPV Immature Gran % Neutrophils % Lymphocytes % Monocytes % Eosinophils % Basophils % Nucleated RBC % Absolute Neutrophils Absolute Lymphocytes Absolute Monocytes Absolute Eosinophils Absolute Basophils Sodium Potassium Chloride Carbon Dioxide Anion Gap BUN Creatinine Est GFR (CKD-EPI 2020) Glucose Calcium Magnesium Total Bilirubin AST ALT Alkaline Phosphatase Ammonia 23 Troponin I NT-Pro-B Natriuret Pep 8653 H Total Protein Albumin Lipase Ethyl Alcohol COVID-19 Source SARS-CoV-2 (PCR) Influenza Type A (PCR) Influenza Type B (PCR) RSV (PCR)
--- NOTE | 2023-04-06 12:24 | HPE_ITS ---
Date of service: 04/06/23 Time of Service: 12:24 Assessment and Plan Assessment and plan (1) Chest pain: Status: Acute Assessment and plan: Sternal fracture Pain management: Scheduled APAP, PRN ketorolac, IS (2) Pneumonia: Status: Inactive Assessment and plan: On ceftriaxone and doxycycline Will continue to monitor for fever, hypotension, oxygen requirement and increased leukocytosis Procalcitonin is 0.1 but the patient has a significant pulmonary history and pneumonia as per CTA report and imaging pulmonary consult considered and to be pursued if deterioration of the patient's condition (3) QT prolongation: Status: Acute Assessment and plan: magnesium replete, Telemetry in place mag in AM (4) Pleural effusion: Status: Acute Assessment and plan: Furosemide 20 mg IV BID BNP >8600 Will continue to monitor (5) Hypomagnesemia: Status: Acute Assessment and plan: Replete and on oral magnesium daily Mag in AM (6) Hypokalemia: Status: Acute Assessment and plan: Replete and daily potassium ordered BMP in AM (7) Pulmonary nodule: Status: Acute Assessment and plan: Previously seen on imaging Pulmonary referral outpatient (8) COPD (chronic obstructive pulmonary disease): Status: Chronic Assessment and plan: Home regimen with Stiolto PRN nebs monitoring for exacerbation (9) H/O ETOH abuse: Status: Acute Assessment and plan: CIWA assessement Q4 hours PRN oral lorazepam for CIWA > 10 (10) DVT prophylaxis: Status: Acute Assessment and plan: LMWH SC (11) Tobacco use disorder: Status: Acute Assessment and plan: Nicotine topical patch (12) Discharge planning issues: Status: Acute Assessment and plan: Monitoring chage in needs by CM Discussed with Dr. 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 the patient stated this was her third visit for similar presentation.The patient was afebrile, alert and oriented, dyspnea on exertion,and no hypoxia recorded in the emergency department at rest.The patient also stated that she stopped drinking alcohol on Tuesday and mentioned that during her last encounter she was told that she needed a CTA of her chest which she had declined at the time secondary to lack of capacity to perform the test at this facility. She declined transfer to [facility]. She stated that her symptoms have not worsened but have remained constant since that time. States she also stopped smoking on Tuesday Remarkable labs in the ED showed WBC 11.91, BNP elevated at 8653, potassium 2.7 magnesium 1.3. The patient received 20 mEq of IV potassium and 40 mEq of oral potassiumas well as 4 g of IV magnesium. The D-dimer was elevated at 860 and a CTA completed. CTA :No evidence of acute pulmonary emboli; but new infiltrate in the right upper and right lower lobes, this in addition to a small cavitated nodule in the superior segment of the right lower lobe which measures approximately 1.1 x 1.2 cm and exhibits thicker wall than previous. This is infectious versus malignant Chest XR:Bilateral interstitial disease and new Lane B line in the lateral right lung base/ sternum fracture. The abdominal US only showed element of steatosis. ED provider discussed imitating IV ceftriaxone and doxycycline for pneumonia concerns. EKG showed a QTc of 0.521, but sinus rhythm w/o ST segment elevation or depression- negative for ischemia or STEMI. The hospitalist was consulted and the patient was admitted as medical level of care inpatient with telemetry for evaluation and management of chest pain, sternal fracture, pneumonia, QTc prolongation, hypokalemia and hypomagnesemia. When seen, the patient denied change in vision, dizziness, coughing, hemoptysis, nausea, vomiting, dysuria, and denies diarrhea at this time. The patient report reported mid sternal chest pain increasing with palpation and deep breathing.The patient also reported 3 episodes of diarrhea prior to arrival to the ED today. Review of Systems All systems reviewed & are unremarkable except as noted in HPI and below Constitutional Constitutional: Denies chills, Denies excessive sweating, Reports fatigue, Denies fever(s), Reports frequent falls and Reports weakness Eyes Eyes: Reports system reviewed and no additional complaints, except as documented ENT Ears, Nose, Mouth, and Throat: Reports system reviewed and no additional complaints, except as documented Cardiovascular Cardiovascular: Reports chest pain with activity, Denies rapid heart rate, Denies irregular heart rhythm, Denies lightheadedness, Reports dyspnea and Reports dyspnea on exertion Respiratory Respiratory: Reports dyspnea and Reports dyspnea on exertion Gastrointestinal Gastrointestinal: Reports bloating, Denies hematochezia and Denies constipation Genitourinary Genitourinary: Denies hematuria Musculoskeletal Musculoskeletal: Reports system reviewed and no additional complaints, except as documented Integumentary/Breasts Skin/Breast: Denies rash and Reports other (healing scab to left knee to prior fall ) Neurologic Neurologic: Reports frequent falls and Reports weakness Psychiatric Psychiatric: Reports system reviewed and no additional complaints, except as documented Endocrine Endocrine: Denies excessive sweating and Reports fatigue Hematologic/Lymphatic Hematologic/Lymphatic: Reports system reviewed and no additional complaints, except as documented PFSH All Active Problems (Updated 04/07/23 @ 08:37 by AMIE Smallwood) H/O ETOH abuse (Acute) Tobacco use disorder (Acute 01/28/14) QT prolongation (Acute) Pleural effusion (Acute) Chest pain (Acute) Hypomagnesemia (Acute) Fluid overload (Acute) Chest pain due to GERD (Acute) Chest wall muscle strain (Acute) Hypokalemia (Acute) COPD exacerbation (Acute) Pulmonary nodule (Acute) COPD (chronic obstructive pulmonary disease) (Chronic) Emphysema lung (Acute) Nicotine dependence, cigarettes, uncomplicated (Acute) Atherosclerosis (Acute) Gastric wall thickening (Acute) Stenosis of right internal carotid artery (Acute) Mass of upper lobe of right lung (Acute) Alcohol abuse (Chronic) Dehydration (Acute) Diarrhea (Acute) Hypomagnesemia (Chronic) Discharge planning issues (Acute) DVT prophylaxis (Acute) B12 deficiency (Acute) Ascites (Acute) Chronic liver disease (Chronic) Weight loss, non-intentional (Acute) Alcoholism (Acute) Macrocytic anemia (Acute) Early satiety (Acute) Folate deficiency (Acute) Hypomagnesemia (Acute) Hypokalemia (Acute) Leg pain (Acute) Cellulitis (Acute) Bilateral leg ulcer (Acute) Medical History Hypomagnesemia Cachexia Hepatic fibrosis Ulcer of lower extremity Hair loss Vitamin D deficiency Chest pain Gastroesophageal reflux disease Hx pulmonary embolism COPD (chronic obstructive pulmonary disease) Chronic vomiting Malnutrition Frequent falls Bilateral leg pain Pancreatitis Diastolic dysfunction Folate deficiency anemia Ascites Bilateral lower extremity edema Unintentional weight loss Alcohol abuse Tobacco dependence syndrome Tobacco abuse Surgical History punch biopsy, skin of ankle, right lateral (11/24/16) negative for malignancy, sparse inflammation and reactive blood vessels foot surgery (~2000) Ligation of fallopian tube (~1999) ENT/Nasal surgery (~2007) Family History Father Lung disease Social History Smoking/Tobacco Use Status: Former Tobacco Use Tobacco: How many years used: 45 Quit status: considering quitting Second Hand Exposure: Yes Smoking risk assessment performed?: Yes Alcohol Intake: current Alcohol Intake frequency: a few times a week Alcohol type: wine Drug use: Rarely Substance use type: marijuana Housing: apartment Current gender identity: female Do you feel safe at home: Yes Do you feel safe in your relationship?: Yes Additional Social history: smokes < 1ppd History History 2 Para 0 Hx # Term Pregnancies Multiple births Hx # Pregnancies Ectopic pregnancies AB induced Hx Number of Living Children AB spontaneous Meds Allergies and Home Medications Allergies Allergy/AdvReac Type Severity Reaction Status Date / Time bacitracin Allergy Mild localized Verified 03/30/23 17:12 [From Neosporin redness ([id number])] neomycin Allergy Mild localized Verified 03/30/23 17:12 [From Neosporin redness ([id number])] polymyxin B Allergy Mild localized Verified 03/30/23 17:12 [From Neosporin redness ([id number])] Home Medications Medication Instructions Recorded Confirmed Type gabapentin 300 mg capsule 300 mg PO TID 08/13/20 04/06/23 History multivitamin (Multiple Vitamins 1 tab PO DAILY #30 tabs 08/13/20 04/06/23 Rx tablet) albuterol sulfate 90 mcg/actuation 2 puff inhalation Q6H PRN 01/18/22 04/06/23 Rx aerosol inhaler shortness of breath or wheezing #8.5 grams tiotropium 2.5 mcg-olodaterol 2.5 2 puff inhalation Q24H #4 grams 07/19/22 04/06/23 Rx mcg/actuation mist for inhalation (Stiolto Respimat) magnesium 250 mg tablet 250 mg PO DAILY #20 tabs 11/09/22 04/06/23 Rx omeprazole 40 mg capsule,delayed 40 mg PO DAILY 04/07/23 04/07/23 History release sucralfate 1 gram tablet 1 g PO QID 04/07/23 04/07/23 History Exam Narrative Exam Narrative: Patient in bed, rates pain 10 out of 10 to mid sternum, worse with palpation and deep breathing. Alert and oriented x3, no focal deficits Shallow breathing, speaks in full sentences, no acute respiratory distress. S1-S2 heard no cardiac murmur, pulses are positive to all 4 extremities, capillary refill is less than 3 seconds. Telemetry is showing sinus rhythm. Abdomen is round, slightly distended, remains soft, nontender with positive bowel sounds. CVA tenderness Equal strength to all 4 extremities, pull/push 5/5 Results Labs 04/07/23 06:10 04/07/23 06:10 Labs: Laboratory Results - last 24 hr 04/06/23 04/06/23 04/06/23 08:59 08:59 08:59 WBC 11.91 H RBC 3.16 L Hgb 11.0 L Hct 32.3 L MCV 102 H MCH 34.8 H MCHC 34.1 RDW 14.5 Plt Count 265 MPV 10.2 Immature Gran % 0.4 Neutrophils % 83.2 Lymphocytes % 9.8 Monocytes % 5.4 Eosinophils % 0.9 Basophils % 0.3 Nucleated RBC % 0.0 Absolute Neutrophils 9.91 H Absolute Lymphocytes 1.17 L Absolute Monocytes 0.64 Absolute Eosinophils 0.11 Absolute Basophils 0.04 Sodium 134 L Potassium 2.7 L* Chloride 96 L Carbon Dioxide 29.3 Anion Gap 8.7 BUN 5 L Creatinine 0.8 Est GFR (CKD-EPI 2020) 83.26 Glucose 110 H Calcium 7.9 L Magnesium 1.3 L Total Bilirubin 1.2 H AST 54 H ALT 23 Alkaline Phosphatase 140 H Ammonia Troponin I < 50 NT-Pro-B Natriuret Pep Total Protein 6.3 L Albumin 2.5 L Lipase 14 L Cancelled Ethyl Alcohol < 3.0 Cancelled COVID-19 Source Nasopharynx SARS-CoV-2 (PCR) Negative Influenza Type A (PCR) Negative Influenza Type B (PCR) Negative RSV (PCR) Negative 04/06/23 09:10 WBC RBC Hgb Hct MCV MCH MCHC RDW Plt Count MPV Immature Gran % Neutrophils % Lymphocytes % Monocytes % Eosinophils % Basophils % Nucleated RBC % Absolute Neutrophils Absolute Lymphocytes Absolute Monocytes Absolute Eosinophils Absolute Basophils Sodium Potassium Chloride Carbon Dioxide Anion Gap BUN Creatinine Est GFR (CKD-EPI 2020) Glucose Calcium Magnesium Total Bilirubin AST ALT Alkaline Phosphatase Ammonia 23 Troponin I NT-Pro-B Natriuret Pep 8653 H Total Protein Albumin Lipase Ethyl Alcohol COVID-19 Source SARS-CoV-2 (PCR) Influenza Type A (PCR) Influenza Type B (PCR) RSV (PCR) Last Vital Signs Temp 36.7 C 04/06/23 08:49 Pulse 88 04/06/23 08:49 Resp 18 04/06/23 08:49 BP 107/77 04/06/23 08:49 Pulse Ox 100 04/06/23 08:49 PAWSS Pt Consumed Any Amount of Alcohol Within the Last 30 days OR had positive NAYA Upon Admission: Yes Have you Been Recently Intoxicated or Drunk Within the Last 30 days?: No Have you Ever Experienced Previous Episodes of Alcohol Withdrawal?: No Have you ever Experienced Withdrawal Seizures?: No Have you ever Experienced Delirium Tremens(DT)s?: No Have you ever undergone Alcohol Rehabilitation Treatment (i.e, inpt ot outpatient treatment programs)?: Unable to Obtain Have you ever Experienced Blackouts?: No Have you ever Combined Alcohol with other Downers within the last 90 days?: No Have you ever Combined Alcohol with any other Substance of Abuse during the last 90 days?: No Positive Blood Alcohol level on Presentation? [PCS.BAL]: No Evidence of Increased Autonomic Activity (i.e. HR>120, tremor, sweating, agitation, nausea)?: No Result: 0 Time Spent Time spent with Patient: >75 minutes Time was spent: preparing to see the patient(eg.review tests), obtaining and/or reviewing separately otained hiistory, ordering medications,tests, procedures, referring, communicating with other health group care worker, indepentently interpreting results, counseling the patient and care coordination
[2023-04-06 12:33] LABS: Bilirubin Negative (Negative); Blood Negative (Negative); Clarity Sl Cloudy (Clear); Glucose Negative (Negative); Ketones Negative (Negative); Leukocyte Esterase Small (Negative); Nitrite Positive (Negative); Urobilinogen 0.2 mg/dL (Up to 0.2)
[2023-04-06 12:37] LABS: INR 1.1 (0.9-1.1); Prothrombin Time 11.1 sec (9.1-11.1)
[2023-04-06 12:39] LABS: Bacteria Many HPF (Negative); C & S Indicated? Yes; Casts Negative LPF (Negative); Crystals Negative HPF (Negative); Epithelial Cells Rare HPF (Negative); Mucus Negative (Negative); RBC Negative HPF (0-2)
[2023-04-06 12:54] LABS: Troponin I < 50 ng/L (<or=60)
[2023-04-06 12:59] LABS: Procalcitonin 0.1 ng/mL
[2023-04-06] MEDS: fentaNYL 100 MCG/2 ML VIAL 25 MCG IVP (15:22)
[2023-04-06] MEDS: Enoxaparin 40 MG/0.4 ML SYR SC (15:22)
[2023-04-06] MEDS: cefTRIAXone 2 GM/50 ML BAG IVPB (15:39)
--- NOTE | 2023-04-06 16:09 | PHA.REVIEW2 ---
Pharmacy Admission Review Admission Clinical Review Admission Pharmacy Review: (Updated 03/30/23 @ 18:10 by Emmie Alanis MD) Chest pain (Acute) Hypomagnesemia (Acute) Hypokalemia (Acute) Pulmonary nodule (Acute) Discharge planning issues (Acute) DVT prophylaxis (Acute) bacitracin [From Neosporin ([id number])] Allergy (Mild, Verified 03/30/23 17:12) localized redness neomycin [From Neosporin ([id number])] Allergy (Mild, Verified 03/30/23 17:12) localized redness polymyxin B [From Neosporin ([id number])] Allergy (Mild, Verified 03/30/23 17:12) localized redness Resuscitation Status Full Code Height 5 ft 8 in Weight 54.431 kg Pharmacy Admission Review Renal Dosing Renal Dosing: BUN 5 mg/dL (7-18) L 04/06/23 08:59 Creatinine 0.8 mg/dL (0.55-1.02) 04/06/23 08:59 Medications needing adjustments: Reviewed (CrCl 50.12 mL/min) Anticoagulation Anticoagulation: Hgb 11.0 g/dL (11.2-15.7) L 04/06/23 08:59 Hct 32.3 % (36.0-46.0) L 04/06/23 08:59 Plt Count 265 10^3/uL (130-400) 04/06/23 08:59 INR 1.1 (0.9-1.1) 04/06/23 08:59 Creatinine 0.8 mg/dL (0.55-1.02) 04/06/23 08:59 DVT Prophylaxis: Reviewed Medications: Enoxaparin (40mg q24h. Hgb 11, continue to monitor for any further decrease.) Relevant Labs Relevant Labs: Sodium 134 mmol/L (136-145) L 04/06/23 08:59 Potassium 2.7 mmol/L (3.5-5.1) L* 04/06/23 08:59 Chloride 96 mmol/L (98-107) L 04/06/23 08:59 Magnesium 1.3 mg/dL (1.8-2.4) L 04/06/23 08:59 Electrolytes, C-Reactive P, ESR: Reviewed (K 2.7, provider ordered 30 mEq PO TID. ) Cardiac Review Cardiac Review: Troponin I < 50 ng/L (<or=60) 04/06/23 12:27 NT-Pro-B Natriuret Pep 8653 pg/mL (<300) H 04/06/23 09:10 BP, HR, EF%: Reviewed (BP WNL, HR 91. NT-Pro-B 8653) QTc Review QTc: Reviewed (521 EKG today. Per H+P note, sinus rhythm w/o ST segment elevation or depresssion - negative for ischemia) IV to PO Switch IV Medications: Reviewed Home Meds Home Med List reviewed: Reviewed Relevent Home Meds Not ordered & why?: Gabapentin (has not picked up since 12/21 for 90 DS), magnesium (not filled since 07/15), multivitamin (no history of filling), omeprazole 40mg daily (no current order but does take, will mention to provider), sucralfate 1g QID (no current order but does take, will mention to provider). Current Meds Current Medication Order Review: Reviewed Pharmacy Antibiotic Review Relevant Labs: Relevant Labs 04/06/23 08:59 Procalcitonin 0.1 Pharmacy Antibiotic Activity: Reviewed, no change Comments: Orders given in ED for ceftriaxone and doxycycline were never given, orders were re-timed so that they could start treatment. Afebrile so far, WBC elevated at 11.91. Urine and blood cultures pending.
[2023-04-06] MEDS: Furosemide 20 MG/2 ML VIAL IVP (16:57)
[2023-04-06] MEDS: Magnesium Gluconate 500 MG TAB PO (16:57)
[2023-04-06] MEDS: Acetaminophen 325 MG TAB 650 MG PO ×2 (16:57→21:24)
[2023-04-06] MEDS: MORPHine 2 MG/ML SYR IVP ×2 (16:57→23:55)
[2023-04-06] MEDS: Nicotine 21 MG/24 HR PATCH TD (16:58)
[2023-04-06] MEDS: DOXYCYCLINE 100 MG in Normal Saline 100 ML IVPB (16:58)
[2023-04-06] MEDS: Ketorolac 15 MG/ML VIAL IVP (19:43)
[2023-04-06] MEDS: Lidocaine 5% Patch 1 PATCH TP (21:24)
[2023-04-06] MEDS: POTASSIUM CHLORIDE 20 MEQ, POTASSIUM CHLORIDE 10 MEQ 30 MEQ PO (21:24)
[2023-04-07] VITALS (7 sets, daily range): BP systolic 113–153; BP diastolic 67–88; PULSE 82–99; RESP 16–20; TEMP 36–36.7; O2SAT 96–100
[2023-04-07] MEDS: Ketorolac 15 MG/ML VIAL IVP ×4 (01:58→23:44)
[2023-04-07] MEDS: DOXYCYCLINE 100 MG in Normal Saline 100 ML IVPB ×2 (03:06→16:22)
[2023-04-07] MEDS: Acetaminophen 325 MG TAB 650 MG PO ×4 (03:06→22:23)
[2023-04-07 06:54] LABS: Abs Immature Grans 0.04 10^3/uL (0.0-0.06); Absolute Basophil Count 0.03 10^3/uL (0.0-0.2); Absolute Eosinophil Count 0.05 10^3/uL (0.0-0.7); Absolute Lymphocyte Count 0.97 10^3/uL (1.2-3.4); Absolute Monocyte Count 0.44 10^3/uL (0.1-0.8); Absolute Neutrophil Count 6.22 10^3/uL (1.2-6.7); Basophils % 0.4; Eosinophils % 0.6; Immature Grans % 0.5; Lymphocytes % 12.5; MCH 35.3 pg (27.0-33.0); MCHC 34.4 % (32.0-36.0); MCV 103 fL (80-95); MPV 10.8 fL (8.0-11.0); Monocytes % 5.7; Neutrophils % 80.3; Platelet Count 264 10^3/uL (130-400); RBC 3.12 10^6/uL (3.93-5.22); RDW 14.3 % (11.7-14.6); RDW-SD 54.2 fL; WBC 7.75 10^3/uL (4.4-10.8)
[2023-04-07 07:05] LABS: BUN 7 mg/dL (7-18); CREATININE 0.7 mg/dL (0.55-1.02); Calcium 7.9 mg/dL (8.5-10.1); Chloride 95 mmol/L (98-107); Estimated GFR 97.72 (mL/min/1.73m2); Glucose 93 mg/dL (74-106); Magnesium 1.6 mg/dL (1.8-2.4); Sodium 133 mmol/L (136-145)
[2023-04-07 07:10] LABS: Potassium 2.8 mmol/L (3.5-5.1)
--- NOTE | 2023-04-07 07:30 | RT.EKG_ITS ---
APPROVED REPORT Exam: Resting ECG Reason for Exam: QT prolongation Patient Location: I HR:84 bpm ECG Measurements Heart Rate 84 AXIS CO 149 P 60 QRSd 124 QRS -1 QT 450 T 4 QTc 533 Conclusion Sinus rhythm...normal P axis, V-rate 50- 99 Probable left atrial enlargement...P >50mS, <-0.10mV V1 IVCD, consider atypical RBBB...QRSd>120mS, terminal axis(90,270)
[2023-04-07] MEDS: Tiotropium/Olodaterol 10 PUFF INHALER 2 PUFF IH (07:54)
[2023-04-07] MEDS: MAGNESIUM SULFATE 4 GM/100 ML BAG IVPB (07:57)
[2023-04-07] MEDS: POTASSIUM CHLORIDE 20 MEQ/100 ML BAG 50 MEQ IVPB ×2 (07:58→10:36)
[2023-04-07] MEDS: Magnesium Gluconate 500 MG TAB PO ×2 (07:59→20:23)
[2023-04-07] MEDS: POTASSIUM CHLORIDE 20 MEQ, POTASSIUM CHLORIDE 10 MEQ 30 MEQ PO ×3 (08:00→20:22)
[2023-04-07] MEDS: Furosemide 20 MG/2 ML VIAL IVP ×2 (08:04→16:20)
[2023-04-07] MEDS: Mylanta Suspension 30 ML CUP PO (10:35)
[2023-04-07] MEDS: Patch Removal 1 EACH TD (10:39)
[2023-04-07] MEDS: Omeprazole 20 MG CAPCR PO (11:54)
[2023-04-07] MEDS: Sucralfate 1 GM TAB PO ×3 (11:54→22:23)
[2023-04-07] MEDS: Normal Saline Flush 10 ML SYR IVP ×4 (12:09→17:56)
[2023-04-07] MEDS: LORazepam 1 MG TAB PO/SL (12:19)
[2023-04-07] MEDS: THIAMINE 100 MG in Normal Saline 100 ML 200 MG IVPB (12:40)
--- NOTE | 2023-04-07 13:43 | CHAPLAIN ---
I had a brief visit with Fannie. She told me about her broken sternum and pneumonia and how painful all that was. I left when she got a phone call and will try to visit again later.
--- NOTE | 2023-04-07 14:15 | PDOC.CMIN ---
Date of service: 04/07/23 Time of Service: 14:15 Care Management Initial Assmt Initial Assessment REASON FOR HOSPITALIZATION:: Chest Pain, Pneumonia, Sternal Fracture, Electrolyte abnormalities PREVIOUS FUNCTIONAL STATUS/SOCIAL/FAMILY SUPPORTS:: Resides in [facility], independent at baseline in the community, multiple ED visits in the last 12 months, 4 of which have been in the last month. CURRENT FUNCTIONAL STATUS:: Alert and oriented though scoring on CIWA. ADVANCE DIRECTIVES:: COLST on file Has patient been provided with info about the portal/API?: Yes Did the patient sign up for the portal?: No INSURANCE COVERAGE / FINANCIAL ISSUES:: BC/BS FEP CURRENT HOME/COMMUNITY SERVICES/EQUIPMENT:: None, currently. 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 ANTICIPATED BARRIERS TO DISCHARGE:: History of leaving [facility] TRANSPORTATION:: Via private vehicle. PLAN:: Fannie remains inpatient, on CIWA protocol. CM continues to follow. PFSH All Active Problems (Updated 04/07/23 @ 08:37 by AMIE Smallwood) H/O ETOH abuse (Acute) Tobacco use disorder (Acute 01/28/14) QT prolongation (Acute) Pleural effusion (Acute) Chest pain (Acute) Hypomagnesemia (Acute) Fluid overload (Acute) Chest pain due to GERD (Acute) Chest wall muscle strain (Acute) Hypokalemia (Acute) COPD exacerbation (Acute) Pulmonary nodule (Acute) COPD (chronic obstructive pulmonary disease) (Chronic) Emphysema lung (Acute) Nicotine dependence, cigarettes, uncomplicated (Acute) Atherosclerosis (Acute) Gastric wall thickening (Acute) Stenosis of right internal carotid artery (Acute) Mass of upper lobe of right lung (Acute) Alcohol abuse (Chronic) Dehydration (Acute) Diarrhea (Acute) Hypomagnesemia (Chronic) Discharge planning issues (Acute) DVT prophylaxis (Acute) B12 deficiency (Acute) Ascites (Acute) Chronic liver disease (Chronic) Weight loss, non-intentional (Acute) Alcoholism (Acute) Macrocytic anemia (Acute) Early satiety (Acute) Folate deficiency (Acute) Hypomagnesemia (Acute) Hypokalemia (Acute) Leg pain (Acute) Cellulitis (Acute) Bilateral leg ulcer (Acute) Medical History Hypomagnesemia Cachexia Hepatic fibrosis Ulcer of lower extremity Hair loss Vitamin D deficiency Chest pain Gastroesophageal reflux disease Hx pulmonary embolism COPD (chronic obstructive pulmonary disease) Chronic vomiting Malnutrition Frequent falls Bilateral leg pain Pancreatitis Diastolic dysfunction Folate deficiency anemia Ascites Bilateral lower extremity edema Unintentional weight loss Alcohol abuse Tobacco dependence syndrome Tobacco abuse Surgical History punch biopsy, skin of ankle, right lateral (11/24/16) negative for malignancy, sparse inflammation and reactive blood vessels foot surgery (~2000) Ligation of fallopian tube (~1999) ENT/Nasal surgery (~2007) Family History Father Lung disease Social History Smoking/Tobacco Use Status: Former Tobacco Use Tobacco: How many years used: 45 Quit status: considering quitting Second Hand Exposure: Yes Smoking risk assessment performed?: Yes Alcohol Intake: current Alcohol Intake frequency: a few times a week Alcohol type: wine Drug use: Rarely Substance use type: marijuana Housing: apartment Current gender identity: female Do you feel safe at home: Yes Do you feel safe in your relationship?: Yes Additional Social history: smokes < 1ppd History History Para 0 Hx # Term Pregnancies Multiple births Hx # Pregnancies Ectopic pregnancies AB induced Hx Number of Living Children AB spontaneous
[2023-04-07] MEDS: Enoxaparin 40 MG/0.4 ML SYR SC (14:28)
[2023-04-07] MEDS: cefTRIAXone 2 GM/50 ML BAG IVPB (14:29)
--- NOTE | 2023-04-07 15:57 | W.PM.PROGNOT ---
Date of Service Date of service: 04/07/23 Time of Service: 10:00 Assessment and Plan Assessment and plan (1) Chest pain: Status: Acute Assessment and plan: Sternal fracture Surgical consult: no emergent intervention required Pain management: Continue scheduled Acetaminophen and ketorolac 24-hour course and reassess NSAIDs (2) Pneumonia: Status: Inactive Assessment and plan: On ceftriaxone and doxycycline Will still continue to monitor for fever, hypotension, oxygen requirement and increased leukocytosis Procalcitonin was 0.1 but the patient has a significant pulmonary history and pneumonia as per CTA report and imaging pulmonary consult considered and to be pursued if deterioration of the patient's condition Continue IS, will add vibrapep due to some productive cough legionella L., mycoplasma P. and streptococcus P. studies ordered (3) QT prolongation: Status: Acute Assessment and plan: magnesium replete today again On oral mag mag in AM (4) Pleural effusion: Status: Acute Assessment and plan: Furosemide 20 mg IV BID changed to IV daily BNP >8600 on admit, no trending Will continue to monitor (5) Hypomagnesemia: Status: Acute Assessment and plan: Replete and on oral magnesium daily Mag in AM (6) Hypokalemia: Status: Acute Assessment and plan: Replete and daily potassium ordered BMP in AM (7) Pulmonary nodule: Status: Acute Assessment and plan: Previously seen on imaging Pulmonary referral outpatient for f/u if the patient is willing (8) COPD (chronic obstructive pulmonary disease): Status: Chronic Assessment and plan: Conitune home regimen with Stiolto and PRN nebs Will continue monitoring for exacerbation, no purulence and no increase in the quantity of sputum today (9) H/O ETOH abuse: Status: Acute Assessment and plan: Contiue CIWA assessement Q4 hours, max at 5 Continue PRN oral lorazepam as per order (10) DVT prophylaxis: Status: Acute Assessment and plan: Continue LMWH SC (11) Tobacco use disorder: Status: Acute Assessment and plan: Offer Nicotine topical patch (12) Discharge planning issues: Status: Acute Assessment and plan: Monitoring change in needs by CM Discussed with Dr. Squires Subjective Subjective Interval history since last seen: Patient sitting at the edge of the bed when seen, appears uncomfortable, rates pain 7/10 with movement, otherwise pain is less. Eats well c/o heartburn, PRN antacid ordered.Slept poorly d/t nasal congestion, poor oral intake d/t decrease appetite, denies chills, fevers, night sweat, N/V/D. Exam Narrative Exam Narrative: Patien sitting at tyhe edge of the bed , pain 7/10 mid sternum with movement Alert and oriented x3 Facial structure intact Shallow breathing, speaks in full sentences, no acute respiratory distress. S1-S2 heard, regular , tele SR Abdomen is round,non-distended, remains soft, nontender with positive bowel sounds. No CVA tenderness Equal strength to all 4 extremities, pull/push 5/5 Objective Last Vital Signs Temp 36.3 C L 04/07/23 15:23 Pulse 82 04/07/23 15:23 Resp 16 04/07/23 15:23 BP 141/79 H 04/07/23 15:23 Pulse Ox 100 04/07/23 15:23 Laboratory Results - last 24 hr 04/06/23 04/07/23 12:49 06:10 WBC 7.75 RBC 3.12 L Hgb 11.0 L Hct 32.0 L MCV 103 H MCH 35.3 H MCHC 34.4 RDW 14.3 Plt Count 264 MPV 10.8 Immature Gran % 0.5 Neutrophils % 80.3 Lymphocytes % 12.5 Monocytes % 5.7 Eosinophils % 0.6 Basophils % 0.4 Nucleated RBC % 0.0 Absolute Neutrophils 6.22 Absolute Lymphocytes 0.97 L Absolute Monocytes 0.44 Absolute Eosinophils 0.05 Absolute Basophils 0.03 Sodium 133 L Potassium 2.8 L* Chloride 95 L Carbon Dioxide 26.0 Anion Gap 12.0 H BUN 7 Creatinine 0.7 Est GFR (CKD-EPI 2020) 97.72 Glucose 93 Calcium 7.9 L Magnesium 1.6 L Urine Color Cancelled Urine Clarity Cancelled Urine pH Cancelled Ur Specific [place] Cancelled Urine Protein Cancelled Urine Ketones Cancelled Urine Blood Cancelled Urine Nitrite Cancelled Urine Bilirubin Cancelled Urine Urobilinogen Cancelled Ur Leukocyte Esterase Cancelled Urine Glucose Cancelled PAWSS Pt Consumed Any Amount of Alcohol Within the Last 30 days OR had positive NAYA Upon Admission: Yes Have you Been Recently Intoxicated or Drunk Within the Last 30 days?: No Have you Ever Experienced Previous Episodes of Alcohol Withdrawal?: No Have you ever Experienced Withdrawal Seizures?: No Have you ever Experienced Delirium Tremens(DT)s?: No Have you ever undergone Alcohol Rehabilitation Treatment (i.e, inpt ot outpatient treatment programs)?: Unable to Obtain Have you ever Experienced Blackouts?: No Have you ever Combined Alcohol with other Downers within the last 90 days?: No Have you ever Combined Alcohol with any other Substance of Abuse during the last 90 days?: No Positive Blood Alcohol level on Presentation? [PCS.BAL]: No Evidence of Increased Autonomic Activity (i.e. HR>120, tremor, sweating, agitation, nausea)?: No Result: 0 Time Spent with Patient Time Spent with Patient: >50 minutes Time was spent: preparing to see the patient(eg.review tests), ordering medications,tests, procedures, referring, communicating with other health career services manager, indepentently interpreting results, counseling the patient and care coordination
[2023-04-07] MEDS: Nicotine 21 MG/24 HR PATCH TD (16:26)
[2023-04-07] MEDS: Melatonin 3 MG TAB PO (22:23)
[2023-04-07] MEDS: Lidocaine 5% Patch 1 PATCH TP (22:25)
[2023-04-08 00:14] VITALS: BP 167/89; PULSE 83; PULSE 86; RESP 18; TEMP 36.2; O2SAT 100
[2023-04-08] MEDS: Mylanta Suspension 30 ML CUP PO (03:47)
[2023-04-08] MEDS: Acetaminophen 325 MG TAB 650 MG PO ×2 (03:47→09:04)
[2023-04-08] MEDS: DOXYCYCLINE 100 MG in Normal Saline 100 ML IVPB (03:48)
[2023-04-08 04:16] VITALS: BP 155/89; PULSE 77; RESP 18; TEMP 36.4; O2SAT 97
[2023-04-08] MEDS: Ketorolac 15 MG/ML VIAL IVP (05:56)
[2023-04-08 07:02] LABS: Anion Gap 8.6 mmol/L (3-11); BUN 9 mg/dL (7-18); CO2 22.4 mmol/L (21.0-32.0); CREATININE 0.7 mg/dL (0.55-1.02); Calcium 8.4 mg/dL (8.5-10.1); Chloride 96 mmol/L (98-107); Estimated GFR 97.72 (mL/min/1.73m2); Glucose 82 mg/dL (74-106); Magnesium 2.1 mg/dL (1.8-2.4); Sodium 127 mmol/L (136-145)
[2023-04-08] MEDS: Sucralfate 1 GM TAB PO (07:05)
[2023-04-08] MEDS: Omeprazole 20 MG CAPCR PO (07:05)
[2023-04-08] MEDS: Tiotropium/Olodaterol 10 PUFF INHALER 2 PUFF IH (07:54)
[2023-04-08 08:08] VITALS: BP 184/98; PULSE 89; RESP 17; TEMP 36.4; O2SAT 98
[2023-04-08] MEDS: Magnesium Gluconate 500 MG TAB PO (09:05)
[2023-04-08] MEDS: Thiamine 100 MG TAB PO (09:05)
[2023-04-08] MEDS: Folic Acid 1 MG TAB PO (09:05)
[2023-04-08] MEDS: Multivitamin TAB 1 TAB PO (09:05)
[2023-04-08] MEDS: Normal Saline Flush 10 ML SYR IVP ×2 (09:07→09:24)
--- NOTE | 2023-04-08 09:19 | PDOC.CMPRO ---
Date of service: 04/08/23 Time of Service: 09:19 Care Management Progress Note Progress Note Text Progress Note Text: S/O: A: Fannie is a 63 year old woman admitted on 04/06/23 with pneumonia and chest pain P:Anticipate Fannie will be discharged home with no new services when medically cleared. She will follow up with her PCP and plan of care and transport with family. CM will follow and continue to assess for discharge needs.
[2023-04-08] MEDS: Furosemide 20 MG/2 ML VIAL IVP (09:24)
--- NOTE | 2023-04-08 10:31 | NUR.NOTE ---
Nursing Note: Pt is refusing to wear tele at this time; this pattern chart writer educated patient on importance of wearing tele however the patient does not care.
[2023-04-08] MEDS: Patch Removal 1 EACH TD (10:59)
--- NOTE | 2023-04-08 11:00 | RT.EKG_ITS ---
APPROVED REPORT Exam: Resting ECG Reason for Exam: follow up QT prolongation Patient Location: I HR:92 bpm ECG Measurements Heart Rate 92 AXIS NC 157 P 60 QRSd 113 QRS 25 QT 377 T 3 QTc 467 Conclusion Sinus rhythm...normal P axis, V-rate 50- 99 Probable left atrial enlargement...P >50mS, <-0.10mV V1 right bundle branch block...QRSd >112, terminal axis(90,270)
--- NOTE | 2023-04-08 11:41 | DSE_ITS ---
Date of service: 04/08/23 Time of Service: 11:41 DS: Diagnosis Discharge Diagnosis (1) Chest pain: Status: Acute (2) Pneumonia: Status: Inactive (3) QT prolongation: Status: Acute (4) Pleural effusion: Status: Acute (5) Hypomagnesemia: Status: Acute (6) Hypokalemia: Status: Acute (7) Pulmonary nodule: Status: Acute (8) COPD (chronic obstructive pulmonary disease): Status: Chronic (9) H/O ETOH abuse: Status: Acute (10) DVT prophylaxis: Status: Acute (11) Tobacco use disorder: Status: Acute (12) Discharge planning issues: Status: Acute Discharge Plan Disposition Patient Disposition: Home Condition: Fair Discharge Details Reason For Visit: Chest Pain,Pneumonia,Sternal Fracture,Electrolyte Admit Date/Time: 04/06/23 12:24 Admit Provider: Yasmeen Squires Attending Provider: Yasmeen Squires Primary Care Provider: MARIANO KEARNEY Hospital Course Hospital Course: This 63-year-old female with history COPD, ETOH, tobacco abuse, fatty liver, chronic pancreatitis, GERD, who came to the ED at [facility] via EMS on 04/06with c/o of chest pain starting a month ago, weakness, increased shortness of breath and diarrhea.The patient stated this was her third visit for similar presentation.The patient reported she stopped drinking alcohol and smoking cigarettes on Tuesday. Patient was admitted with abnormal labs, WBC 11.91, BNP elevated at 8653, potassium 2.7 magnesium 1.3. CTA :No evidence of acute pulmonary emboli; but new infiltrate in the right upper and right lower lobes, this in addition to a small cavitated nodule in the superior segment of the right lower lobe which measures approximately 1.1 x 1.2 cm and exhibits thicker wall than previous. Patient was admitted to the medical floor and treated with antibiotics for pneumonia and electrolyte repletion. Today patient requests to go home as she has animals she has to take care of. Patient's vital signs are stable and she is afebrile. Patient was discharged to home stable with oral antibiotics and instruction to follow up with PCP next week. Patient is encouraged to stop smoking and stop drinking alcohol. Patient voiced understanding and agrees with plan of care. Home Meds and New Rx's Prescriptions: New cefpodoxime 200 mg tablet 200 mg PO BID Qty: 6 0RF Rx Instructions: must administer with a meal/food doxycycline hyclate 100 mg tablet 100 mg PO BID Qty: 6 0RF Continued Stiolto Respimat 2.5-2.5 mcg/actuation mist 2 puff inhalation Q24H Qty: 4 12RF albuterol sulfate 90 mcg/actuation HFA aerosol inhaler 2 puff inhalation Q6H PRN (Reason: shortness of breath or wheezing) Qty: 8.5 12RF multivitamin [Multiple Vitamins] Tablet 1 tab PO DAILY Qty: 30 0RF gabapentin 300 mg Capsule 300 mg PO TID magnesium 250 mg tablet 250 mg PO DAILY Qty: 20 0RF sucralfate 1 gram tablet 1 g PO QID Patient Comments: TAKE ONE TABLET BY MOUTH BEFORE MEALS AND AT BEDTIME omeprazole 40 mg capsule,delayed release(DR/EC) 40 mg PO DAILY Patient Comments: TAKE ONE CAPSULE BY MOUTH EVERY DAY Discharge Instructions Instructions: Doxycycline (By mouth), Cefpodoxime Proxetil (By mouth), Pneumonia (IP), Sternal Precautions (GEN) Additional Instructions: Take antibiotics until finished. Follow up [facility] PCP in one week. Stand Alone Forms: Nursing Discharge Form Referrals: MARIANO KEARNEY, SALES PERFORMANCE ANALYST [Primary Care Provider] - (1 week Follow up small cavitated nodule in the superior segment of the right lower lobe which measures approximately 1.1 x 1.2 cm and exhibits thicker wall than previous. Fx Sternum) Activity:: No lifting Equipment/Supplies:: No Equipment Needed Diet:: As Tolerated Discharge Orders Discharge Orders: Discharge Order (Routine); Ordered 04/08/23 Ordered By: Janeth Pierce Discharge Data Discharge Date/Time-TO BE ENTERED AT DEPARTURE: 04/08/23 11:45 DS: Summary Summary Time spent discussing smoking cessation with patient: more than 10 minutes Time Spent with Patient providing and/or coordinating discharge services: Greater than 30 minutes Status at Discharge Functional status at discharge: independent ambulation Overall status at discharge: patient is progressing back to baseline Mental Status: mental status grossly normal Speech and Movement: speech and movement normal Mood: congruent mood Affect: normal affect Exam Narrative Exam Narrative: Patient appears older than stated age, awake alert semi dennis in bed, wearing eye make up and lipstick, pleasant, conversant Facial structure intact Speaks in full sentences, no acute respiratory distress, denies pain at time of exam S1-S2 heard, regular , patient removed tele; was NSR prior to removal with normal QTC Abdomen is round,non-distended, soft, nontender with positive bowel sounds all quad. No CVA tenderness Equal strength to all 4 extremities Psych Mental Status: mental status grossly normal Speech and Movement: speech and movement normal Mood: congruent mood Affect: normal affect DS: Data Vitals/I&O Vitals and I&O: Vital Signs Temperature 36.4 C L 04/08/23 08:08 Temperature Source Tympanic 04/08/23 08:08 Pulse 89 04/08/23 08:08 Pulse Rhythm Regular 04/08/23 07:08 Pulse 91 H 04/06/23 12:49 Respiratory Rate 17 04/08/23 08:08 Respiratory Effort Normal 04/08/23 07:08 Respiratory Depth Normal 04/08/23 07:08 Respiratory Pattern Normal 04/08/23 07:08 Blood Pressure 184/98 H 04/08/23 08:08 Blood Pressure Mean 102 04/06/23 12:49 Blood Pressure Position Supine 04/06/23 08:49 Pulse Oximetry 98 04/08/23 08:08 Oxygen Delivery Method Room Air 04/08/23 08:08 Oxygen Flow Rate 0 04/08/23 08:08 Pain Level 1 04/08/23 10:04 Comment bp called over radio 04/08/23 08:08 Intake & Output 04/07/23 04/07/23 04/08/23 11:59 23:59 11:59 Intake Total 350 / 841 491 / 841 100 / 100 Output Total 600 / 1000 400 / 1000 300 / 300 Balance -250 / -159 91 / -159 -200 / -200 Weight 52.4 kg Intake: IV 200 / 451 251 / 451 100 / 100 Oral 150 / 390 240 / 390 Output: Urine 600 / 1000 400 / 1000 300 / 300 Other: Urine Color Yellow Yellow Yellow Urine Appearance Clear Clear Clear Urine Odor None Comment pt endorsed voiding half an hour ago Stool Size Small Stool Characteristics Liquid Brown Voiding Methods Bedside Commode Bedside Commode Toilet Data Completed and Pending Labs on day of discharge: Labs from last 24 hours 04/08/23 04/08/23 04/07/23 12:00 05:29 13:58 Sodium Pending 127 L Potassium Pending 5.0 D Chloride Pending 96 L Carbon Dioxide Pending 22.4 Anion Gap Pending 8.6 BUN Pending 9 Creatinine Pending 0.7 Est GFR (CKD-EPI 2020) Pending 97.72 Glucose Pending 82 Calcium Pending 8.4 L Magnesium 2.1 Ur Strep pneumoniae Ag Pending Preliminary micro results at discharge 04/06/23 13:05 Blood Culture - Preliminary Blood NO GROWTH 24 HOURS 04/06/23 13:17 Blood Culture - Preliminary Blood NO GROWTH 24 HOURS PFSH All Active Problems (Updated 04/07/23 @ 08:37 by AMIE Smallwood) H/O ETOH abuse (Acute) Tobacco use disorder (Acute 01/28/14) QT prolongation (Acute) Pleural effusion (Acute) Chest pain (Acute) Hypomagnesemia (Acute) Fluid overload (Acute) Chest pain due to GERD (Acute) Chest wall muscle strain (Acute) Hypokalemia (Acute) COPD exacerbation (Acute) Pulmonary nodule (Acute) COPD (chronic obstructive pulmonary disease) (Chronic) Emphysema lung (Acute) Nicotine dependence, cigarettes, uncomplicated (Acute) Atherosclerosis (Acute) Gastric wall thickening (Acute) Stenosis of right internal carotid artery (Acute) Mass of upper lobe of right lung (Acute) Alcohol abuse (Chronic) Dehydration (Acute) Diarrhea (Acute) Hypomagnesemia (Chronic) Discharge planning issues (Acute) DVT prophylaxis (Acute) B12 deficiency (Acute) Ascites (Acute) Chronic liver disease (Chronic) Weight loss, non-intentional (Acute) Alcoholism (Acute) Macrocytic anemia (Acute) Early satiety (Acute) Folate deficiency (Acute) Hypomagnesemia (Acute) Hypokalemia (Acute) Leg pain (Acute) Cellulitis (Acute) Bilateral leg ulcer (Acute) Medical History Hypomagnesemia Cachexia Hepatic fibrosis Ulcer of lower extremity Hair loss Vitamin D deficiency Chest pain Gastroesophageal reflux disease Hx pulmonary embolism COPD (chronic obstructive pulmonary disease) Chronic vomiting Malnutrition Frequent falls Bilateral leg pain Pancreatitis Diastolic dysfunction Folate deficiency anemia Ascites Bilateral lower extremity edema Unintentional weight loss Alcohol abuse Tobacco dependence syndrome Tobacco abuse Surgical History punch biopsy, skin of ankle, right lateral (11/24/16) negative for malignancy, sparse inflammation and reactive blood vessels foot surgery (~2000) Ligation of fallopian tube (~1999) ENT/Nasal surgery (~2007) Family History Father Lung disease Social History Smoking/Tobacco Use Status: Former Tobacco Use Tobacco: How many years used: 45 Quit status: considering quitting Second Hand Exposure: Yes Smoking risk assessment performed?: Yes Alcohol Intake: current Alcohol Intake frequency: a few times a week Alcohol type: wine Drug use: Rarely Substance use type: marijuana Housing: apartment Current gender identity: female Do you feel safe at home: Yes Do you feel safe in your relationship?: Yes Additional Social history: smokes < 1ppd History History Para 0 Hx # Term Pregnancies Multiple births Hx # Pregnancies Ectopic pregnancies AB induced Hx Number of Living Children AB spontaneous Time Spent with Patient Time Spent with Patient: 45-69 minutes Time was spent: ordering medications,tests, procedures, referring, communicating with other health career education teacher, indepentently interpreting results and counseling the patient
--- NOTE | 2023-04-08 11:49 | NUR.NOTE ---
Nursing Note: At this time patient decided she wanted to leave; pt signed AMA paperwork and walked off the floor and into the elevator at this time. All PIV access was removed prior to leaving and patient took all personal belongings at this time.
--- NOTE | 2023-04-08 11:56 | PDOC.CMDIS ---
Date of service: 04/08/23 Time of Service: 11:56 LACE Index Scoring Tool Questions: Length of Stay (in days): 2 Was the patient admitted via the E.D.?: Yes Comorbidities: Chronic Pulmonary Disease and Liver or Renal Disease E.D. Visits: 7 Answers: Total Score: 14 Risk of Readmission: High Risk Care Management Discharge Plan Reason for Hospitalization: Chest Pain, Pneumonia, Sternal Fracture, Electrolyte abnormalities Discharge Plan: Fannie will be discharged home with no new services. She will follow up with her PCP and plan of care and transport with a friend/family member. Patient/Family Education Needs: Review discharge instructions, activity, limitations, follow up plan and discuss Ask Me Three.
[2023-04-09 10:55] LABS: Streptococcus Pneumoniae Ag, U Positive (Negative)
== END 2023-04-08 11:45 | disposition home or self-care (01) | DRG 190 ==
LOC: ER 09:19 → MS 13:32
PROVIDERS: Nurse Practitioner Acute Care; Admitting Provider Internal Medicine; Emergency Provider Physician Assistant; PCP Nurse Practitioner Family; Visit Provider Internal Medicine
DX: J44.0 Chronic obstructive pulmonary disease with (acute) lower respiratory infection (principal); J18.9 Pneumonia, unspecified organism; E46 Unspecified protein-calorie malnutrition; J90 Pleural effusion, not elsewhere classified; Z68.1 Body mass index [BMI] 19.9 or less, adult; K86.1 Other chronic pancreatitis; R94.31 Abnormal electrocardiogram [ECG] [EKG]; E87.6 Hypokalemia; E83.42 Hypomagnesemia; R91.1 Solitary pulmonary nodule; F17.210 Nicotine dependence, cigarettes, uncomplicated; R07.89 Other chest pain; I65.21 Occlusion and stenosis of right carotid artery; I70.90 Unspecified atherosclerosis; K31.89 Other diseases of stomach and duodenum; E86.0 Dehydration; E53.8 Deficiency of other specified B group vitamins; D53.9 Nutritional anemia, unspecified; Z86.711 Personal history of pulmonary embolism; R63.4 Abnormal weight loss; K74.00 Hepatic fibrosis, unspecified; R53.1 Weakness; R19.7 Diarrhea, unspecified; F10.10 Alcohol abuse, uncomplicated; K76.0 Fatty (change of) liver, not elsewhere classified; E87.70 Fluid overload, unspecified
CPT/HCPCS: 00123; 36410; 36415; 71275; 80048; 80053; 83690; 84145; 87040; 87077; 87637; 93005; 94640; 96361; 96365; 96366; 96368; 99291; J1650; 76700; 80320; 81003; 81015; 82140; 83735; 83880; 84484; 85025; 85610; 87086; 87186; 87899; 93010; 94664; 94667; 94668; 99223; 99233; 99239; J1885; J1941; J2270; J3010; J3475; J3480; J3490

== ENCOUNTER 2023-04-20 09:35 | Emergency (ER) | payer BC, SELFPAY ==
[2023-04-20] VITALS (24 sets, daily range): BP systolic 122–174; BP diastolic 76–102; PULSE 105–115; RESP 12–23; TEMP 36.9; O2SAT 89–100
--- NOTE | 2023-04-20 09:15 | RT.EKG_ITS ---
APPROVED REPORT Exam: Resting ECG Reason for Exam: SOB Patient Location: E HR:111 bpm ECG Measurements Heart Rate 111 AXIS FL 139 P 69 QRSd 123 QRS 5 QT 341 T -7 QTc 466 Conclusion Sinus tachycardia...rate> 99 Left atrial enlargement...P, P'>60mS, <-0.15mV V1 Right bundle branch block...QRSd>120, terminal axis(90,270) Some artifact, sinus tach, RBBB, borderline LAD. T wave inversion V1-V3, no acute ST changes, minor changes noted from previous. No STEMI
[2023-04-20] MEDS: Albuterol/Ipratropium 3 ML UPD VIAL UPD (09:48)
--- NOTE | 2023-04-20 10:00 | DI.RAD_ITS ---
Exam(s) XR CHEST 2V PA LATERAL EXAM: XR CHEST 2V PA LATERAL CLINICAL HISTORY: cough, fever, shortness of breath. TECHNIQUE: 2D digital imaging was performed. COMPARISON: CR XR CHEST 2V PA LATERAL from 03/30/2023 FINDINGS: 2 views: heart size upper normal mediastinum is not widened. increased interstitial markings in both lung fie lds again noted. no obvious pleural effusions. calcification in the subclavian arteries noted bilat erally. IMPRESSION: Interstitial lung disease including Lane B lines in the lateral right lung base. Suspect element o f interstitial pulmonary edema despite the upper normal limits heart size. DATA REPOSITORY: RADIATION DOSE DELIVERED:
[2023-04-20 10:09] LABS: Abs Immature Grans 0.12 10^3/uL (0.0-0.06); Absolute Basophil Count 0.05 10^3/uL (0.0-0.2); Absolute Eosinophil Count 0.11 10^3/uL (0.0-0.7); Absolute Lymphocyte Count 0.88 10^3/uL (1.2-3.4); Absolute Monocyte Count 0.94 10^3/uL (0.1-0.8); Absolute Neutrophil Count 8.68 10^3/uL (1.2-6.7); Basophils % 0.5; HCT 30.3 % (36.0-46.0); Immature Grans % 1.1; Lymphocytes % 8.2; MCH 34.7 pg (27.0-33.0); MCV 105 fL (80-95); MPV 10.6 fL (8.0-11.0); Monocytes % 8.7; Neutrophils % 80.5; Platelet Count 246 10^3/uL (130-400); RBC 2.88 10^6/uL (3.93-5.22); RDW 15.6 % (11.7-14.6); RDW-SD 58.7 fL; WBC 10.78 10^3/uL (4.4-10.8)
[2023-04-20 10:22] LABS: Macrocytosis 1+; Polychromasia Present; Stomatocytes 2+
--- NOTE | 2023-04-20 10:31 | ED.GENADUL_ITS ---
Discharge Plan Disposition Patient Disposition: Home Condition: Stable Discharge Details Clinical Impression: Bronchitis, Hypomagnesemia, Pulmonary congestion Primary Care Provider: MARIANO KEARNEY ED Provider: Leanna Wang Home Meds and New Rx's Prescriptions: New prednisone 20 mg tablet 40 mg PO DAILY Qty: 8 0RF furosemide [Lasix] 20 mg tablet 20 mg PO DAILY Qty: 5 0RF Continued Stiolto Respimat 2.5-2.5 mcg/actuation mist 2 puff inhalation Q24H Qty: 4 12RF albuterol sulfate 90 mcg/actuation HFA aerosol inhaler 2 puff inhalation Q6H PRN (Reason: shortness of breath or wheezing) Qty: 8.5 12RF thiamine HCl (vitamin B1) 250 mg tablet 250 mg PO DAILY potassium See Rx Instructions .ROUTE DIRECTED Rx Instructions: as directed; cefpodoxime 200 mg tablet 200 mg PO BID Qty: 14 0RF Rx Instructions: must administer with a meal/food doxycycline hyclate 100 mg tablet 100 mg PO BID Qty: 14 0RF multivitamin [Multiple Vitamins] Tablet 1 tab PO DAILY Qty: 30 0RF gabapentin 300 mg Capsule 300 mg PO TID magnesium 250 mg tablet 250 mg PO DAILY Qty: 20 0RF sucralfate 1 gram tablet 1 g PO QID Patient Comments: TAKE ONE TABLET BY MOUTH BEFORE MEALS AND AT BEDTIME omeprazole 40 mg capsule,delayed release(DR/EC) 40 mg PO DAILY Patient Comments: TAKE ONE CAPSULE BY MOUTH EVERY DAY Discharge Instructions Instructions: Acute Bronchitis (ED), Hypomagnesemia (ED) Additional Instructions: Take your magnesium daily, this is very important Take the doxycycline, you have been given 2 doses, make sure you fill your prescription and take this medicine tomorrow Start taking the steroid tomorrow I recommend recheck with your primary care physician in 48 hours Please return immediately should you have new or worsening complaints Use your inhaler medications daily as prescribed Referrals: MARIANO KEARNEY, [employer] [Primary Care Provider] - 2 days Teresa Verdin MD [ [facility] STAFF PHYSICIAN] - 1 day Discharge Data Discharge Date/Time-TO BE ENTERED AT DEPARTURE: 04/20/23 13:25 Medical Decision Making Alert, oriented, chronically ill-appearing 63-year-old female, rhonchi noted, tachypnea with mild respiratory distress calf patient's or tenderness, distal pulses intact all 4 extremities Speaking in complete sentences Patient is not hypoxic, she is alert and oriented and speaking in complete sentences, she is feeling improvement after DuoNeb administration and steroid administration, she states that pulmonary congestion on her chest x-ray although it does not look markedly changed from her prior 2+ edema to bilateral lower extremities, distal pulses intact, ambulatory with steady gait, no respiratory distress, appears chronically ill moist mucous membranes, pupils equal round active to light and accommodation no visible signs of trauma today I will place her on 5 days of Lasix and she will need an outpatient echocardiogram she does have hypomagnesemia, she has magnesium which she will continue to take at home, she will take 2 doses for the next 5 days, her sodium was also slightly low, she will need to have this rechecked closely Magnesium was supplemented with 2 g of mag in the emergency department She is ambulatory with steady gait, no hypoxia, will place patient on Lasix and prednisone, as patient has significant COPD in addition to history of CHF, will treat with prednisone, patient has prescription for doxycycline from her swaging machine adjuster which she saw yesterday and she will also take 5 days of 20 mg of Lasix Return precautions reviewed and patient expressed understanding, discharged home in stable condition, diagnostic labs reviewed without elevated troponin, BNP is elevated but this appears to be patient's baseline in fact improved from her prior admission HPI General Date/Time Provider Initiated Documentation: 04/20/23 09:52 . HPI Narrative: This 63-year-old female presents with report of shortness of breath and chest pain, patient has a history of chest pain she was diagnosed with sternal fr acture, states predominantly woke up at 3 or shortness of breath, feels like her COPD, denies any additional trauma. Denies any radiation of pain. Denies known fever, wet cough reported. Denies any calf pain or swelling. Used albuterol prior to coming into the emergency department. Related Data Home Medications Medication Instructions Recorded Confirmed gabapentin 300 mg capsule 300 mg PO TID 08/13/20 04/20/23 multivitamin (Multiple Vitamins 1 tab PO DAILY #30 tabs 08/13/20 04/20/23 tablet) albuterol sulfate 90 mcg/actuation 2 puff inhalation Q6H PRN 01/18/22 04/20/23 aerosol inhaler shortness of breath or wheezing #8.5 grams tiotropium 2.5 mcg-olodaterol 2.5 2 puff inhalation Q24H #4 grams 07/19/22 04/20/23 mcg/actuation mist for inhalation (Stiolto Respimat) magnesium 250 mg tablet 250 mg PO DAILY #20 tabs 11/09/22 04/20/23 omeprazole 40 mg capsule,delayed 40 mg PO DAILY 04/07/23 04/20/23 release sucralfate 1 gram tablet 1 g PO QID 04/07/23 04/20/23 cefpodoxime 200 mg tablet 200 mg PO BID #14 tabs 04/19/23 04/20/23 doxycycline hyclate 100 mg tablet 100 mg PO BID #14 tabs 04/19/23 04/20/23 potassium See Rx Instructions .Route 04/19/23 04/20/23 DIRECTED thiamine HCl (vitamin B1) 250 mg 250 mg PO DAILY 04/19/23 04/20/23 tablet prednisone 20 mg tablet 40 mg (2 x 20 mg) PO DAILY #8 tabs 04/20/23 furosemide 20 mg tablet (Lasix) 20 mg PO DAILY #5 tabs 04/21/23 Previous Rx's Medication Instructions Recorded multivitamin (Multiple Vitamins 1 tab PO DAILY #30 tabs 08/13/20 tablet) albuterol sulfate 90 mcg/actuation 2 puff inhalation Q6H PRN 01/18/22 aerosol inhaler shortness of breath or wheezing #8.5 grams tiotropium 2.5 mcg-olodaterol 2.5 2 puff inhalation Q24H #4 grams 07/19/22 mcg/actuation mist for inhalation (Stiolto Respimat) magnesium 250 mg tablet 250 mg PO DAILY #20 tabs 11/09/22 cefpodoxime 200 mg tablet 200 mg PO BID #14 tabs 04/19/23 doxycycline hyclate 100 mg tablet 100 mg PO BID #14 tabs 04/19/23 prednisone 20 mg tablet 40 mg (2 x 20 mg) PO DAILY #8 tabs 04/20/23 furosemide 20 mg tablet (Lasix) 20 mg PO DAILY #5 tabs 04/21/23 Allergies Allergy/AdvReac Type Severity Reaction Status Date / Time bacitracin Allergy Mild localized Verified 04/20/23 09:40 [From Neosporin redness ([id number])] neomycin Allergy Mild localized Verified 04/20/23 09:40 [From Neosporin redness ([id number])] polymyxin B Allergy Mild localized Verified 04/20/23 09:40 [From Neosporin redness ([id number])] General Stated Complaint: SOB RAHEEM: 3 PFSH All Active Problems (Updated 04/21/23 @ 08:25 by AMIE Smallwood) Pulmonary congestion (Acute) Hypomagnesemia (Acute) Bronchitis (Acute) Cavitary lesion of lung (Acute) H/O ETOH abuse (Acute) Tobacco use disorder (Acute 01/28/14) Pleural effusion (Acute) Hypomagnesemia (Acute) Fluid overload (Acute) Chest pain due to GERD (Acute) Chest wall muscle strain (Acute) Hypokalemia (Acute) COPD exacerbation (Acute) Emphysema lung (Acute) Nicotine dependence, cigarettes, uncomplicated (Acute) Atherosclerosis (Acute) Gastric wall thickening (Acute) Stenosis of right internal carotid artery (Acute) Mass of upper lobe of right lung (Acute) Alcohol abuse (Chronic) Dehydration (Acute) Diarrhea (Acute) Hypomagnesemia (Chronic) B12 deficiency (Acute) Ascites (Acute) Chronic liver disease (Chronic) Weight loss, non-intentional (Acute) Macrocytic anemia (Acute) Early satiety (Acute) Folate deficiency (Acute) Hypomagnesemia (Acute) Hypokalemia (Acute) Leg pain (Acute) Cellulitis (Acute) Bilateral leg ulcer (Acute) Medical History Hypomagnesemia Cachexia Hepatic fibrosis Ulcer of lower extremity Hair loss Vitamin D deficiency Chest pain Gastroesophageal reflux disease Hx pulmonary embolism COPD (chronic obstructive pulmonary disease) Chronic vomiting Malnutrition Frequent falls Bilateral leg pain Pancreatitis Diastolic dysfunction Folate deficiency anemia Ascites Bilateral lower extremity edema Unintentional weight loss Alcohol abuse Tobacco dependence syndrome Tobacco abuse Surgical History punch biopsy, skin of ankle, right lateral (11/24/16) negative for malignancy, sparse inflammation and reactive blood vessels foot surgery (~2000) Ligation of fallopian tube (~1999) ENT/Nasal surgery (~2007) Family History Father Lung disease Social History (Reviewed 04/06/23 @ 17:19 by GUS Domingo Smoking/Tobacco Use Status: Former Tobacco Use Tobacco: How many years used: 45 Quit status: considering quitting Second Hand Exposure: Yes Smoking risk assessment performed?: Yes Alcohol Intake: current Alcohol Intake frequency: a few times a week Alcohol type: wine Drug use: Rarely Substance use type: marijuana Housing: apartment Current gender identity: female Do you feel safe at home: Yes Do you feel safe in your relationship?: Yes Additional Social history: smokes < 1ppd History History Para 0 Hx # Term Pregnancies Multiple births Hx # Pregnancies Ectopic pregnancies AB induced Hx Number of Living Children AB spontaneous Course Vital Signs Vital signs: Vital Signs Temperature 36.9 C 04/20/23 09:36 Pulse 111 H 04/20/23 09:36 Respiratory Rate 20 04/20/23 09:36 Blood Pressure 165/98 H 04/20/23 09:36 Pulse Oximetry 94 04/20/23 09:36 Temperature 36.9 C 04/20/23 09:36 Pulse 112 H 04/20/23 10:01 Pulse 107 H 04/20/23 09:50 Respiratory Rate 12 04/20/23 09:50 Respiratory Effort Normal 04/20/23 10:07 Blood Pressure 122/102 H 04/20/23 10:01 Blood Pressure Mean 106 04/20/23 10:01 Pulse Oximetry 100 04/20/23 10:02 Oxygen Delivery Method Room Air 04/20/23 09:48 Oxygen Flow Rate 0 04/20/23 09:48 Lab/Test Results Lab/Test Results: Laboratory Tests Range/Units 04/20/23 10:05 WBC (4.4-10.8) 10^3/uL 10.78 RBC (3.93-5.22) 10^6/uL 2.88 L Hgb (11.2-15.7) g/dL 10.0 L Hct (36.0-46.0) % 30.3 L MCV (80-95) fL 105 H MCH (27.0-33.0) pg 34.7 H MCHC (32.0-36.0) % 33.0 RDW (11.7-14.6) % 15.6 H Plt Count (130-400) 10^3/uL 246 MPV (8.0-11.0) fL 10.6 Immature Gran % 1.1 Neutrophils % 80.5 Lymphocytes % 8.2 Monocytes % 8.7 Eosinophils % 1.0 Basophils % 0.5 Nucleated RBC % (0.0-0.3) % 0.0 Absolute Neutrophils (1.2-6.7) 10^3/uL 8.68 H Absolute Lymphocytes (1.2-3.4) 10^3/uL 0.88 L Absolute Monocytes (0.1-0.8) 10^3/uL 0.94 H Absolute Eosinophils (0.0-0.7) 10^3/uL 0.11 Absolute Basophils (0.0-0.2) 10^3/uL 0.05 RBC Morphology See Below Polychromasia Present Macrocytosis 1+ Stomatocytes 2+ Sodium Cancelled Potassium Cancelled Chloride Cancelled Carbon Dioxide Cancelled Anion Gap Cancelled BUN Cancelled Creatinine Cancelled Est GFR (CKD-EPI 2020) Cancelled Glucose Cancelled Calcium Cancelled Magnesium Cancelled Total Bilirubin Cancelled AST Cancelled ALT Cancelled Alkaline Phosphatase Cancelled Troponin I Cancelled NT-Pro-B Natriuret Pep Cancelled Total Protein Cancelled Albumin Cancelled PAWSS Have you Been Recently Intoxicated or Drunk Within the Last 30 days?: No Have you Ever Experienced Previous Episodes of Alcohol Withdrawal?: No Have you ever Experienced Withdrawal Seizures?: No Have you ever Experienced Delirium Tremens(DT)s?: No Have you ever undergone Alcohol Rehabilitation Treatment (i.e, inpt ot outpatient treatment programs)?: No Have you ever Experienced Blackouts?: No Have you ever Combined Alcohol with other Downers within the last 90 days?: No Have you ever Combined Alcohol with any other Substance of Abuse during the last 90 days?: No Positive Blood Alcohol level on Presentation? [PCS.BAL]: No Evidence of Increased Autonomic Activity (i.e. HR>120, tremor, sweating, agitation, nausea)?: No Result: 0
[2023-04-20 11:06] LABS: ALT 44 U/L (14-59); AST 55 U/L (15-37); Albumin 2.4 g/dL (3.4-5.0); Alkaline Phosphatase 154 U/L (46-116); Anion Gap 8.4 mmol/L (3-11); BUN 11 mg/dL (7-18); Bilirubin, Total 0.8 mg/dL (0.2-1.0); CO2 25.6 mmol/L (21.0-32.0); CREATININE 0.8 mg/dL (0.55-1.02); Calcium 8.3 mg/dL (8.5-10.1); Chloride 98 mmol/L (98-107); Estimated GFR 83.26 (mL/min/1.73m2); Glucose 120 mg/dL (74-106); Magnesium 1.4 mg/dL (1.8-2.4); NT-proBNP 5365 pg/mL (<300); Potassium 4.1 mmol/L (3.5-5.1); Sodium 132 mmol/L (136-145); Total Protein 5.8 g/dL (6.4-8.2); Troponin I < 50 ng/L (<or=60)
[2023-04-20] MEDS: MAGNESIUM SULFATE 2 GM/50 ML BAG IVPB (11:30)
[2023-04-20] MEDS: LORazepam 2 MG/ML VIAL 0.5 MG IVP (11:30)
[2023-04-20] MEDS: Doxycycline Hyclate 100 MG, 2 CAPS/BTL PO (13:18)
[2023-04-20 13:35] LABS: Troponin I < 50 ng/L (<or=60)
--- NOTE | 2023-04-21 08:28 | NUR.NOTE ---
Referral faxed to [facility] for a follow up. Pt needs an Outpatient Echo and her electrolytes rechecked.
== END 2023-04-20 13:25 | disposition home or self-care (01) ==
PROVIDERS: Emergency Provider Physician Assistant; PCP Nurse Practitioner Family
DX: J20.9 Acute bronchitis, unspecified (principal); J44.0 Chronic obstructive pulmonary disease with (acute) lower respiratory infection; I45.19 Other right bundle-branch block; E83.42 Hypomagnesemia; Z86.711 Personal history of pulmonary embolism; Z87.891 Personal history of nicotine dependence
CPT/HCPCS: 36415; 80053; 93005; 94640; 96365; 96366; 96375; 99284; 71046; 83735; 83880; 84484; 85025; 93010; J2060; J7620

== ENCOUNTER 2023-05-09 09:23 | Emergency (ER) | payer BC, SELFPAY ==
[2023-05-09] VITALS (18 sets, daily range): BP systolic 82–126; BP diastolic 59–67; PULSE 92–104; RESP 9–22; TEMP 36.4; O2SAT 95–100
--- NOTE | 2023-05-09 09:15 | RT.EKG_ITS ---
APPROVED REPORT Exam: Resting ECG Reason for Exam: Shortness of breath Patient Location: E HR:100 bpm ECG Measurements Heart Rate 100 AXIS AR 146 P 74 QRSd 119 QRS 35 QT 395 T 45 QTc 510 Conclusion Sinus tachycardia...rate> 99 IRBBB and LPFB...RAD, QRSd>120, term axis(90,270) Probable inferior infarct, old...Q>35mS, II III aVF Prolonged QT interval...QTc >500mS
--- NOTE | 2023-05-09 09:29 | W.ED.GENAD ---
HPI General Stated Complaint: SOB Mode of arrival: EMS. RAHEEM: 3 Date/Time Provider Initiated Documentation: 05/09/23 10:15. Limitations to Documentation: no limitations. Information obtained by: patient and RN notes reviewed. History of Present Illness cough SOB moderate day(s) (2) constant No relieving factors improve symptom(s), No exacerbating factors reported none Related Data Home Medications Medication Instructions Recorded Confirmed gabapentin 300 mg capsule 300 mg PO TID 08/13/20 05/09/23 multivitamin (Multiple Vitamins 1 tab PO DAILY #30 tabs 08/13/20 05/09/23 tablet) albuterol sulfate 90 mcg/actuation 2 puff inhalation Q6H PRN 01/18/22 05/09/23 aerosol inhaler shortness of breath or wheezing #8.5 grams magnesium 250 mg tablet 250 mg PO DAILY #20 tabs 11/09/22 05/09/23 omeprazole 40 mg capsule,delayed 40 mg PO DAILY 04/07/23 05/09/23 release potassium See Rx Instructions .Route 04/19/23 05/09/23 DIRECTED thiamine HCl (vitamin B1) 250 mg 250 mg PO DAILY 04/19/23 05/09/23 tablet prednisone 20 mg tablet 40 mg (2 x 20 mg) PO DAILY #8 tabs 04/20/23 05/09/23 tiotropium 2.5 mcg-olodaterol 2.5 2 puff inhalation Q24H #4 grams 05/04/23 05/09/23 mcg/actuation mist for inhalation (Stiolto Respimat) azithromycin 250 mg tablet 250 mg PO DAILY 4 days #4 tabs 05/09/23 lorazepam 0.5 mg tablet (Ativan) 0.25 mg (1/2 x 0.5 mg) PO BID PRN 05/09/23 anxiety #4 tabs Previous Rx's Medication Instructions Recorded multivitamin (Multiple Vitamins 1 tab PO DAILY #30 tabs 08/13/20 tablet) albuterol sulfate 90 mcg/actuation 2 puff inhalation Q6H PRN 01/18/22 aerosol inhaler shortness of breath or wheezing #8.5 grams magnesium 250 mg tablet 250 mg PO DAILY #20 tabs 11/09/22 prednisone 20 mg tablet 40 mg (2 x 20 mg) PO DAILY #8 tabs 04/20/23 tiotropium 2.5 mcg-olodaterol 2.5 2 puff inhalation Q24H #4 grams 05/04/23 mcg/actuation mist for inhalation (Stiolto Respimat) azithromycin 250 mg tablet 250 mg PO DAILY 4 days #4 tabs 05/09/23 lorazepam 0.5 mg tablet (Ativan) 0.25 mg (1/2 x 0.5 mg) PO BID PRN 05/09/23 anxiety #4 tabs Allergies Allergy/AdvReac Type Severity Reaction Status Date / Time bacitracin Allergy Mild localized Verified 05/09/23 09:27 [From Neosporin redness ([id number])] neomycin Allergy Mild localized Verified 05/09/23 09:27 [From Neosporin redness ([id number])] polymyxin B Allergy Mild localized Verified 05/09/23 09:27 [From Neosporin redness ([id number])] Review of Systems Constitutional Constitutional: Reports chills, Denies fever(s) and Reports malaise Cardiovascular Cardiovascular: Denies chest pain, Reports dyspnea and Reports dyspnea on exertion Respiratory Respiratory: Reports cough (wet), Reports dyspnea and Reports dyspnea on exertion Gastrointestinal Gastrointestinal: Denies abdominal pain, Denies diarrhea, Denies nausea and Denies vomiting Psychiatric Psychiatric: Reports anxiety PFSH All Active Problems (Updated 05/09/23 @ 14:02 by David Renner NP) Anxiety (Chronic) Pulmonary congestion (Acute) Hypomagnesemia (Acute) Bronchitis (Acute) Cavitary lesion of lung (Acute) H/O ETOH abuse (Acute) Tobacco use disorder (Acute 01/28/14) Pleural effusion (Acute) Hypomagnesemia (Acute) Fluid overload (Acute) Chest pain due to GERD (Acute) Chest wall muscle strain (Acute) Hypokalemia (Acute) COPD exacerbation (Acute) Emphysema lung (Acute) Nicotine dependence, cigarettes, uncomplicated (Acute) Atherosclerosis (Acute) Gastric wall thickening (Acute) Stenosis of right internal carotid artery (Acute) Mass of upper lobe of right lung (Acute) Alcohol abuse (Chronic) Dehydration (Acute) Diarrhea (Acute) Hypomagnesemia (Chronic) B12 deficiency (Acute) Ascites (Acute) Chronic liver disease (Chronic) Weight loss, non-intentional (Acute) Macrocytic anemia (Acute) Early satiety (Acute) Folate deficiency (Acute) Hypomagnesemia (Acute) Hypokalemia (Acute) Leg pain (Acute) Cellulitis (Acute) Bilateral leg ulcer (Acute) Medical History Pulmonary nodule COPD (chronic obstructive pulmonary disease) Hypomagnesemia Cachexia Hepatic fibrosis Ulcer of lower extremity Hair loss Vitamin D deficiency Chest pain Gastroesophageal reflux disease Hx pulmonary embolism COPD (chronic obstructive pulmonary disease) Chronic vomiting Malnutrition Frequent falls Bilateral leg pain Pancreatitis Diastolic dysfunction Folate deficiency anemia Ascites Bilateral lower extremity edema Unintentional weight loss Alcohol abuse Tobacco dependence syndrome Tobacco abuse Surgical History punch biopsy, skin of ankle, right lateral (11/24/16) negative for malignancy, sparse inflammation and reactive blood vessels foot surgery (~2000) Ligation of fallopian tube (~1999) ENT/Nasal surgery (~2007) Family History Father Lung disease Social History Smoking/Tobacco Use Status: Former Tobacco Use Tobacco: How many years used: 45 Quit status: considering quitting Second Hand Exposure: Yes Smoking risk assessment performed?: Yes Alcohol Intake: current Alcohol Intake frequency: a few times a week Alcohol type: wine Drug use: Rarely Substance use type: marijuana Housing: apartment Current gender identity: female Do you feel safe at home: Yes Do you feel safe in your relationship?: Yes Additional Social history: smokes < 1ppd History History Para 0 Hx # Term Pregnancies Multiple births Hx # Pregnancies Ectopic pregnancies AB induced Hx Number of Living Children AB spontaneous Exam Const General: cooperative, comfortable, no acute distress and anxious Nutritional Appearance: cachectic Orientation: alert and awake HENMT Head: normal to inspection, normocephalic and atraumatic Ears: hearing grossly normal bilaterally and TM's normal bilaterally General nose exam: external nose normal Face and sinus: no erythema Mouth: oral mucosae normal, no drooling, no muffled voice and no trismus Throat: posterior oropharynx normal Neck Neck: normal visual inspection, full ROM, no lymphadenopathy, no meningeal signs, trachea midline and supple Resp Effort & Inspection: normal respiratory effort and able to speak in complete sentences Auscultation: clear to auscultation bilaterally Cardio Rate: regular rate Rhythm: regular rhythm Heart Sounds: S1 normal, S2 normal, normal S1 and S2, no click, no gallops, no murmurs and no rubs Skin General skin exam: no rashes or lesions noted and dry skin (warm) Neuro General: patient alert, patient awake, patient oriented x3, gait normal and moves all extremities Cognition: normal cognition Speech: speech normal Course Vital Signs Vital signs: Vital Signs Temperature 36.4 C 05/09/23 09:21 Pulse 104 H 05/09/23 09:21 Respiratory Rate 22 05/09/23 09:21 Blood Pressure 126/64 05/09/23 09:21 Pulse Oximetry 100 05/09/23 09:21 Temperature 36.4 C 05/09/23 09:21 Temperature Source Oral 05/09/23 09:21 Pulse 104 H 05/09/23 09:21 Respiratory Rate 22 05/09/23 09:21 Blood Pressure 126/64 05/09/23 09:21 Blood Pressure Position Sitting 05/09/23 09:21 Pulse Oximetry 100 05/09/23 09:21 Oxygen Delivery Method Room Air 05/09/23 09:21 Oxygen Flow Rate 0 05/09/23 09:21 Pain Level 0 05/09/23 09:21 Medical Decision Making Patient presenting to the emergency department for chief complaint of shortness of breath, anxiety, cough, and chills. She reports that cough and chills started on Tuesday. She reports that she lives alone and sometimes when she has some shortness of breath she becomes anxious which makes her symptoms worse. Patient does have history of COPD, panic attacks, low magnesium, low potassium, alcohol abuse, tobacco dependence. Physical exam shows anxious appearing female with slight tachypnea otherwise clear lung sounds, patient has slight tachycardia on vital signs but exam is otherwise unremarkable and noncontributory. Given patient's history will check labs, chest x-ray, and EKG. Pending results will give DuoNeb Please see physician interpretation for full interpretation of EKG but upon my review poor tracing but no obvious acute findings to suggest STEMI Reviewed patient's labs and patient is negative for COVID and influenza, has no significant leukocytosis or anemia no concern, patient has multiple electrolyte abnormalities including slightly low sodium, potassium, chloride, magnesium. Anion gap is elevated at 12.9, glucose 171 and albumin low at 2.9. Labs otherwise nondiagnostic. Troponin is negative. Chest x-ray shows no acute findings. Reassessed patient after DuoNeb and she does state that she is feeling better but is anxious about going home alone. She does report that she feels that a portion of her symptoms are due to her anxiety. Do feel that patient had acute COPD exacerbation so we will treat with azithromycin and first dose given in the emergency department. With her contributing factor of anxiety discussed with patient risk versus benefit of very low-dose Ativan as I did consider Atarax but given her significant need for potassium this is contraindicated. After discussion of risk versus benefit with patient patient given 0.25 mg to use only in severe cases of anxiety and only 4 tablets given. Given otherwise stable vital signs with patient stating significant preoperative symptoms patient I do feel is appropriate for outpatient disposition with follow-up to primary care provider. After discussion of diagnosis and plan of care patient has no further needs, questions, or concerns and states clear understanding to return to the emergency department for any worsening symptoms. This documentation was generated using [facility] dictation system, please disregard any oddities of phrase or misspellings. Imaging Data Radiologic Study: Radiologist's impression: Exam(s) XR CHEST 2V PA LATERAL EXAM: XR CHEST 2V PA LATERAL CLINICAL HISTORY: cough SOB TECHNIQUE: 2D digital imaging was performed of the chest. Two images were obtained. PA and lateral views were obtained. COMPARISON: CR XR CHEST 2V PA LATERAL from 04/20/2023 FINDINGS: MEDIASTINUM: Normal. HEART: Normal. PULMONARY VASCULATURE: Normal. LUNGS: The lungs are hyperinflated consistent with underlying COPD. No focal consolidating infiltrates are seen. There is linear atelectasis in the right lung base. There is stable scarring in the lung apices. PLEURAL SPACE: No pleural effusion or pneumothorax. BONE:Within normal limits for the patient's age. OTHER FINDINGS:Normal. IMPRESSION: No acute pulmonary findings. Lab Data Lab results reviewed: Yes I reviewed the patient's lab results. Quality:SDOH Health Related Social Needs: No Data to Display Discharge Plan Disposition Patient Disposition: Home Discharge Details Clinical Impression: Anxiety, COPD exacerbation, Hypokalemia, Hypomagnesemia Primary Care Provider: MARIANO KEARNEY ED Provider: David Renner Home Meds and New Rx's Prescriptions: New azithromycin 250 mg tablet 250 mg PO DAILY 4 Days Qty: 4 0RF Rx Instructions: start on day 2 of therapy lorazepam [Ativan] 0.5 mg tablet 0.25 mg PO BID PRN (Reason: anxiety) Qty: 4 0RF Continued albuterol sulfate 90 mcg/actuation HFA aerosol inhaler 2 puff inhalation Q6H PRN (Reason: shortness of breath or wheezing) Qty: 8.5 12RF thiamine HCl (vitamin B1) 250 mg tablet 250 mg PO DAILY potassium See Rx Instructions .ROUTE DIRECTED Rx Instructions: as directed; Stiolto Respimat 2.5-2.5 mcg/actuation mist 2 puff inhalation Q24H Qty: 4 12RF prednisone 20 mg tablet 40 mg PO DAILY Qty: 8 0RF multivitamin [Multiple Vitamins] Tablet 1 tab PO DAILY Qty: 30 0RF gabapentin 300 mg Capsule 300 mg PO TID magnesium 250 mg tablet 250 mg PO DAILY Qty: 20 0RF omeprazole 40 mg capsule,delayed release(DR/EC) 40 mg PO DAILY Patient Comments: TAKE ONE CAPSULE BY MOUTH EVERY DAY Discharge Instructions Instructions: COPD (Chronic Obstructive Pulmonary Disease) (ED), Anxiety (ED) Additional Instructions: Please continue to take your medication as prescribed. You were given a very limited quantity of a antianxiety medication. Please take as directed and only as needed for severe anxiety as this medication may be habit-forming as discussed. Please follow-up with your primary care provider for reassessment and return to the emergency department for any new or significant worsening of symptoms. Referrals: MARIANO KEARNEY NP [Primary Care Provider] - 5 days
--- NOTE | 2023-05-09 10:15 | DI.RAD_ITS ---
Exam(s) XR CHEST 2V PA LATERAL EXAM: XR CHEST 2V PA LATERAL CLINICAL HISTORY: cough SOB TECHNIQUE: 2D digital imaging was performed of the chest. Two images were obtained. PA and lateral views were obtained. COMPARISON: CR XR CHEST 2V PA LATERAL from 04/20/2023 FINDINGS: MEDIASTINUM: Normal. HEART: Normal. PULMONARY VASCULATURE: Normal. LUNGS: The lungs are hyperinflated consistent with underlying COPD. No focal consolidating infiltrat es are seen. There is linear atelectasis in the right lung base. There is stable scarring in the maida ng apices. PLEURAL SPACE: No pleural effusion or pneumothorax. BONE:Within normal limits for the patient's age. OTHER FINDINGS:Normal. IMPRESSION: No acute pulmonary findings. DATA REPOSITORY: RADIATION DOSE DELIVERED:
[2023-05-09] MEDS: Albuterol/Ipratropium 3 ML UPD VIAL UPD (10:33)
[2023-05-09 10:36] LABS: Abs Immature Grans 0.02 10^3/uL (0.0-0.06); Absolute Basophil Count 0.04 10^3/uL (0.0-0.2); Absolute Eosinophil Count 0.08 10^3/uL (0.0-0.7); Absolute Lymphocyte Count 0.84 10^3/uL (1.2-3.4); Absolute Monocyte Count 0.46 10^3/uL (0.1-0.8); Basophils % 0.9; Eosinophils % 1.8; HCT 39.1 % (36.0-46.0); HGB 13.1 g/dL (11.2-15.7); Immature Grans % 0.4; Lymphocytes % 18.5; MCH 34.5 pg (27.0-33.0); MCHC 33.5 % (32.0-36.0); MCV 103 fL (80-95); MPV 10.4 fL (8.0-11.0); Monocytes % 10.1; Neutrophils % 68.3; Platelet Count 250 10^3/uL (130-400); RDW 14.8 % (11.7-14.6); RDW-SD 55.7 fL; WBC 4.54 10^3/uL (4.4-10.8)
[2023-05-09 10:54] LABS: ALT 28 U/L (14-59); AST 59 U/L (15-37); Albumin 2.9 g/dL (3.4-5.0); Alkaline Phosphatase 163 U/L (46-116); Anion Gap 12.9 mmol/L (3-11); BUN 11 mg/dL (7-18); Bilirubin, Total 0.8 mg/dL (0.2-1.0); CO2 27.1 mmol/L (21.0-32.0); CREATININE 1.1 mg/dL (0.55-1.02); Calcium 9.4 mg/dL (8.5-10.1); Chloride 94 mmol/L (98-107); Estimated GFR 56.81 (mL/min/1.73m2); Glucose 171 mg/dL (74-106); Magnesium 1.5 mg/dL (1.8-2.4); Potassium 3.1 mmol/L (3.5-5.1); Sodium 134 mmol/L (136-145); Total Protein 6.8 g/dL (6.4-8.2); Troponin I < 50 ng/L (<or=60)
[2023-05-09] MEDS: Potassium Chloride 20 MEQ TABCR 40 MEQ PO (11:10)
[2023-05-09] MEDS: MAGNESIUM SULFATE 1 GM/100 ML BAG IVPB (11:15)
[2023-05-09] MEDS: Normal Saline 1,000 ML 1000 ML IV (11:15)
--- NOTE | 2023-05-09 14:00 | NUR.NOTE ---
Referred to Primary Care for a follow up due to COPD Exacerbation and Panic Attack by the end of the week. Patient was given Low Dose Atavan and Antibiotics
[2023-05-09] MEDS: Azithromycin 250 MG TAB 500 MG PO (14:09)
== END 2023-05-09 14:20 | disposition home or self-care (01) ==
PROVIDERS: Emergency Provider Nurse Practitioner Family; PCP Nurse Practitioner Family
DX: R06.02 Shortness of breath (principal); R05.1 Acute cough; J44.1 Chronic obstructive pulmonary disease with (acute) exacerbation; E87.6 Hypokalemia; E83.42 Hypomagnesemia; F17.200 Nicotine dependence, unspecified, uncomplicated; F41.9 Anxiety disorder, unspecified
CPT/HCPCS: 80053; 93005; 94640; 96361; 96365; 99284; 71046; 83735; 84484; 85025; 93010; 99283; J3475; J7620

== ENCOUNTER 2023-05-18 02:59 | Inpatient (IN) | payer BC, SELFPAY ==
[2023-05-18] VITALS (9 sets, daily range): BP systolic 108–151; BP diastolic 53–96; PULSE 75–111; RESP 17–24; TEMP 36.1–36.7; O2SAT 94–100; BMI 18.3
--- NOTE | 2023-05-18 03:00 | DI.RAD_ITS ---
Exam(s) XR HIP LT COMPLETE AP PELVIS EXAM: XR HIP LT COMPLETE AP PELVIS CLINICAL HISTORY: fall, hip pain. TECHNIQUE: 2D digital imaging was performed. COMPARISON: No exams were available for comparison FINDINGS: 3 views There is an acute intertrochanteric fracture the left hip with mild displacement. There is avulsion of the lesser trochanter. There is no degenerative narrowing of the hip joint space. No osseous les ions. Femoral artery calcification is noted. IMPRESSION: Acute intertrochanteric fracture of the left hip. DATA REPOSITORY: RADIATION DOSE DELIVERED:
--- NOTE | 2023-05-18 03:02 | W.ED.GENAD ---
HPI General Mode of arrival: EMS. Date/Time Provider Initiated Documentation: 05/18/23 03:02. Limitations to Documentation: no limitations. Information obtained by: patient. HPI Narrative: Patient presents to ED status post fall at home with left hip injury. Patient has been drinking tonight. She fell landing on her left side. She denies striking her head and denies any headache, neck pain, syncope, chest pain, shortness of breath. She was unable to get up and had to crawl to get her phone to call 911. She arrives with complaint of left hip pain only. Denies any numbness or weakness distal. Related Data Home Medications Medication Instructions Recorded Confirmed gabapentin 300 mg capsule 300 mg PO TID 08/13/20 05/18/23 multivitamin (Multiple Vitamins 1 tab PO DAILY #30 tabs 08/13/20 05/18/23 tablet) albuterol sulfate 90 mcg/actuation 2 puff inhalation Q6H PRN 01/18/22 05/18/23 aerosol inhaler shortness of breath or wheezing #8.5 grams magnesium 250 mg tablet 250 mg PO DAILY #20 tabs 11/09/22 05/18/23 omeprazole 40 mg capsule,delayed 40 mg PO DAILY 04/07/23 05/18/23 release potassium See Rx Instructions .Route 04/19/23 05/18/23 DIRECTED thiamine HCl (vitamin B1) 250 mg 250 mg PO DAILY 04/19/23 05/18/23 tablet tiotropium 2.5 mcg-olodaterol 2.5 2 puff inhalation Q24H #4 grams 05/04/23 05/18/23 mcg/actuation mist for inhalation (Stiolto Respimat) lorazepam 0.5 mg tablet (Ativan) 0.25 mg (1/2 x 0.5 mg) PO BID PRN 05/09/23 05/18/23 anxiety #4 tabs ipratropium 0.5 mg-albuterol 3 mg 3 ml inhalation Q4H PRN wheezing 05/10/23 05/18/23 (2.5 mg base)/3 mL nebulization #540 mL soln lisinopril 20 mg tablet 20 mg PO DAILY 05/10/23 05/18/23 sucralfate 1 gram tablet 1 g PO BID 05/10/23 05/18/23 Previous Rx's Medication Instructions Recorded multivitamin (Multiple Vitamins 1 tab PO DAILY #30 tabs 08/13/20 tablet) albuterol sulfate 90 mcg/actuation 2 puff inhalation Q6H PRN 01/18/22 aerosol inhaler shortness of breath or wheezing #8.5 grams magnesium 250 mg tablet 250 mg PO DAILY #20 tabs 11/09/22 tiotropium 2.5 mcg-olodaterol 2.5 2 puff inhalation Q24H #4 grams 05/04/23 mcg/actuation mist for inhalation (Stiolto Respimat) lorazepam 0.5 mg tablet (Ativan) 0.25 mg (1/2 x 0.5 mg) PO BID PRN 05/09/23 anxiety #4 tabs ipratropium 0.5 mg-albuterol 3 mg 3 ml inhalation Q4H PRN wheezing 05/10/23 (2.5 mg base)/3 mL nebulization #540 mL soln Allergies Allergy/AdvReac Type Severity Reaction Status Date / Time bacitracin Allergy Mild localized Verified 05/18/23 03:08 [From Neosporin redness ([id number])] neomycin Allergy Mild localized Verified 05/18/23 03:08 [From Neosporin redness ([id number])] polymyxin B Allergy Mild localized Verified 05/18/23 03:08 [From Neosporin redness ([id number])] General RAHEEM: 3 Review of Systems Narrative: Per HPI PFSH All Active Problems (Updated 05/18/23 @ 04:05 by Sukhi Wilson MD) Closed fracture of left hip (Acute) Fall (Acute) Alcohol intoxication (Acute) Anxiety (Chronic) Pulmonary congestion (Acute) Hypomagnesemia (Acute) Bronchitis (Acute) Cavitary lesion of lung (Acute) H/O ETOH abuse (Acute) Tobacco use disorder (Acute 01/28/14) Pleural effusion (Acute) Hypomagnesemia (Acute) Fluid overload (Acute) Chest pain due to GERD (Acute) Chest wall muscle strain (Acute) Hypokalemia (Acute) COPD exacerbation (Acute) Emphysema lung (Acute) Nicotine dependence, cigarettes, uncomplicated (Acute) Atherosclerosis (Acute) Gastric wall thickening (Acute) Stenosis of right internal carotid artery (Acute) Mass of upper lobe of right lung (Acute) Alcohol abuse (Chronic) Dehydration (Acute) Diarrhea (Acute) Hypomagnesemia (Chronic) B12 deficiency (Acute) Ascites (Acute) Chronic liver disease (Chronic) Weight loss, non-intentional (Acute) Macrocytic anemia (Acute) Early satiety (Acute) Folate deficiency (Acute) Hypomagnesemia (Acute) Hypokalemia (Acute) Leg pain (Acute) Cellulitis (Acute) Bilateral leg ulcer (Acute) Medical History Pulmonary nodule COPD (chronic obstructive pulmonary disease) Hypomagnesemia Cachexia Hepatic fibrosis Ulcer of lower extremity Hair loss Vitamin D deficiency Chest pain Gastroesophageal reflux disease Hx pulmonary embolism COPD (chronic obstructive pulmonary disease) Chronic vomiting Malnutrition Frequent falls Bilateral leg pain Pancreatitis Diastolic dysfunction Folate deficiency anemia Ascites Bilateral lower extremity edema Unintentional weight loss Alcohol abuse Tobacco dependence syndrome Tobacco abuse Surgical History punch biopsy, skin of ankle, right lateral (11/24/16) negative for malignancy, sparse inflammation and reactive blood vessels foot surgery (~2000) Ligation of fallopian tube (~1999) ENT/Nasal surgery (~2007) Family History Father Lung disease Social History Smoking/Tobacco Use Status: Former Tobacco Use Tobacco: How many years used: 45 Quit status: considering quitting Second Hand Exposure: Yes Smoking risk assessment performed?: Yes Alcohol Intake: current Alcohol Intake frequency: a few times a week Alcohol type: wine Drug use: Rarely Substance use type: marijuana Housing: apartment Current gender identity: female Do you feel safe at home: Yes Do you feel safe in your relationship?: Yes Additional Social history: smokes < 1ppd History History Para 0 Hx # Term Pregnancies Multiple births Hx # Pregnancies Ectopic pregnancies AB induced Hx Number of Living Children AB spontaneous Exam Narrative Exam Narrative: Const: Thin female in NAD. HEENT: NC/AT. Normal facial exam. Neck: Supple. Trachea midline. No cervical spine tenderness. Lungs: Normal respiratory effort. Lungs are clear. No chest wall tenderness. Cor: RRR without murmur/gallop. Good distal pulses. GI: Soft. NT/ND. Neuro: A+O x 3. Normal speech, mentation. Cranial nerves II - XII grossly intact. No gross motor or sensory deficit. Ext: LLE is held flexed at hip and knee. Tender over the greater trochanteric area. NVI distal, Skin: Warm and dry without laceration. Medical Decision Making 63-year-old female with history of alcohol abuse and frequent falls presenting with a fall resulting in left hip pain. Hip and knee flexed, tender over the greater trochanteric area. IM Toradol given for pain and x-ray of left hip and pelvis obtained. Patient's x-ray read by me as left intertrochanteric hip fracture. Orders placed for IV access, Douglas, laboratory studies, portable chest, EKG. As needed morphine ordered for pain control. Case discussed with orthopedics, Dr. Feliciano. Patient referred to medicine for admission given age, alcoholism, COPD. Case discussed with hospitalist, Dr. Downey. Patient accepted to hospitalist service for clearance and management. Patient's portable chest x-ray with no acute cardiopulmonary process and unchanged from recent x-ray done on the . EKG is sinus rhythm with right bundle branch block also unchanged. Nursing had difficulty getting IV access. Access finally obtained but no lab work could be drawn off the IV. Lab subsequently able to obtain blood prior to patient going upstairs. Review of these labs show an alcohol level of 229. Electrolytes and kidney function, liver function normal. CBC significant for hemoglobin of 8.2 which is a drop from a hemoglobin of 13 on the eighth of this month when she was here in the ED. Patient is already up stairs for admission. I have called and spoke with Dr. Downey to update him on lab findings. Medical Records Medical records reviewed: Yes I reviewed the patient's medical records. Imaging Data Radiologic Study: Attestation: I personally reviewed and interpreted this imaging study as follows: Imaging: X-Ray (Left hip and pelvis) My impression: Intertrochanteric fracture Radiologic Study #2: Attestation: I personally reviewed and interpreted this imaging study as follows: Imaging: X-Ray (Portable chest) My impression: No acute cardiopulmonary disease, no significant change compared to May 09 of this year Lab Data Lab results reviewed: Yes I reviewed the patient's lab results. Lab results narrative: See MDM ECG Data Attestation: I personally reviewed and interpreted this ECG (s) as follows: Prior ECG tracings: available for review Interpretation: See EKG Quality:SDOH Health Related Social Needs: No Data to Display Discharge Plan Disposition Patient Disposition: Admit to [facility] Discharge Details Clinical Impression: Alcohol intoxication, Fall, Closed fracture of left hip Admit Date/Time: 05/18/23 04:00 Admit Provider: Nikunj Downey Attending Provider: Nikunj Downey Primary Care Provider: MARIANO KEARNEY ED Provider: Sukhi Wilson
[2023-05-18] MEDS: Ketorolac 15 MG/ML VIAL IM (03:21)
--- NOTE | 2023-05-18 03:30 | DI.RAD_ITS ---
Exam(s) XR PORTABLE CHEST AP EXAM: XR PORTABLE CHEST AP CLINICAL HISTORY: copd, hip fx,pre-op. TECHNIQUE: 2D digital imaging was performed. COMPARISON: CR XR CHEST 2V PA LATERAL from 05/09/2023 FINDINGS: Single AP portable view. Heart size is upper normal. The mediastinum is not widened. There increased interstitial markings in both lung brady, more so than previous but possibly exagger ated by portable technique. Vascular calcifications again noted in both subclavian arteries extendin g into the axillary arteries both sides. There is platelike atelectasis in the lateral right lung ba se again noted. IMPRESSION: Increased lung markings but normal heart size. Recommend nonportable PA and lateral views when clini gabby possible, this to better compared to the chest x-ray of 05/09/2023. DATA REPOSITORY: RADIATION DOSE DELIVERED:
--- NOTE | 2023-05-18 03:30 | RT.EKG_ITS ---
APPROVED REPORT Exam: Resting ECG Reason for Exam: pre-op Patient Location: E HR:99 bpm ECG Measurements Heart Rate 99 AXIS SC 172 P 73 QRSd 124 QRS 48 QT 384 T 34 QTc 492 Conclusion Sinus rhythm...normal P axis, V-rate 60- 99 Probable left atrial enlargement...P >50mS, <-0.10mV V1 Right bundle branch block...QRSd>120, terminal axis(90,270) I have reviewed and interpreted ECG and agree with software generated interpretation. There are no significant changes compared to prior EKG performed on 05/09/2023 at 09:33.
--- NOTE | 2023-05-18 04:07 | DI.VRAD_ITS ---
PROCEDURE INFORMATION: Exam: XR Left Hip Exam date and time: 05/18/2023 3:27 AM Age: 63 years old Clinical indication: Pain and injury or trauma; Fall; Blunt trauma (contusions or hematomas); Hip pain; Left hip TECHNIQUE: Imaging protocol: Radiologic exam of the left hip. Views: 2 or 3 views hip with pelvis when performed. COMPARISON: CT CHEST/ABD/PEL W 08/16/2022 8:39 PM FINDINGS: Bones/joints: Acute comminuted intertrochanteric left femur fracture. No dislocation. Soft tissues: Unremarkable. IMPRESSION: Acute comminuted intertrochanteric left femur fracture. Dictated and Authenticated by: Jose G Boggs MD. Ordering:SETH Isbell MD
--- NOTE | 2023-05-18 04:08 | DI.VRAD_ITS ---
PROCEDURE INFORMATION: Exam: XR Chest Exam date and time: 05/18/2023 3:48 AM Age: 63 years old Clinical indication: Pre-operative exam; Respiratory screening exam and other: Copd, hip FX, pre-op TECHNIQUE: Imaging protocol: Radiologic exam of the chest. Views: 1 view. COMPARISON: CR XR CHEST 2V PA LATERAL 05/09/2023 10:45 AM FINDINGS: Lungs: Hydrostatic interstitial pulmonary edema/CHF. No focal airspace opacity. Pleural spaces: Unremarkable. No pleural effusion. No pneumothorax. Heart/Mediastinum: Unremarkable. No cardiomegaly. Bones/joints: Unremarkable. IMPRESSION: Hydrostatic interstitial pulmonary edema/CHF. Dictated and Authenticated by: Jose G Boggs MD. Ordering:SETH Isbell MD
[2023-05-18] MEDS: Ondansetron 4 MG/2 ML VIAL IVP (04:41)
[2023-05-18] MEDS: MORPHine 10 MG/ML VIAL 2 MG IVP (04:41)
[2023-05-18 04:53] LABS: HCT 25.1 % (36.0-46.0); HGB 8.2 g/dL (11.2-15.7); MCH 34.7 pg (27.0-33.0); MCHC 32.7 % (32.0-36.0); MPV 9.7 fL (8.0-11.0); Platelet Count 314 10^3/uL (130-400); RBC 2.36 10^6/uL (3.93-5.22); RDW 15.2 % (11.7-14.6); RDW-SD 59.3 fL; WBC 6.61 10^3/uL (4.4-10.8)
[2023-05-18 04:55] LABS: Bilirubin Negative (Negative); Blood Negative (Negative); Clarity Sl Cloudy (Clear); Glucose Negative (Negative); Ketones Trace mg/dL (Negative); Leukocyte Esterase Negative (Negative); Nitrite Negative (Negative); Specific Gravity 1.015 (1.005-1.025); Urobilinogen 0.2 mg/dL (Up to 0.2); pH 6.5 (5-8)
[2023-05-18 05:04] LABS: Magnesium 1.9 mg/dL (1.8-2.4)
[2023-05-18 05:08] LABS: ALT 19 U/L (14-59); AST 38 U/L (15-37); Albumin 2.6 g/dL (3.4-5.0); Alkaline Phosphatase 105 U/L (46-116); Anion Gap 16.3 mmol/L (3-11); BUN 10 mg/dL (7-18); Bilirubin, Total 0.3 mg/dL (0.2-1.0); CO2 20.7 mmol/L (21.0-32.0); CREATININE 0.7 mg/dL (0.55-1.02); Calcium 8.9 mg/dL (8.5-10.1); Chloride 99 mmol/L (98-107); Estimated GFR 97.72 (mL/min/1.73m2); Glucose 77 mg/dL (74-106); Sodium 136 mmol/L (136-145); Total Protein 5.9 g/dL (6.4-8.2)
[2023-05-18 05:12] LABS: MCV 106 fL (80-95)
--- NOTE | 2023-05-18 06:21 | HPE_ITS ---
Date of service: 05/18/23 Time of Service: 06:24 Assessment and Plan Assessment and plan (1) Closed fracture of left hip: Status: Acute Assessment and plan: Case reviewed with Dr. Feliciano. She is NPO and likely will have surgery this afternoon. (2) Alcohol intoxication: Status: Acute Assessment and plan: She denies history of withdrawal, did not experience withdrawal during April hospitalization. Even so, will monitor with CIWA and prn lorazepam. (3) Anemia: Status: Inactive Assessment and plan: Initial hemoglobin was concerning, though repeat more reassuring. She denies any active bleeding though she is high risk for UGI bleed, continue PPI. She may have lost some blood with fracture. Monitor post-op. (4) Diastolic dysfunction: Assessment and plan: Concern for CHF on CXR and some mild rales, she has a history of diastolic dysfunction. EKG is not ischemic and no chest pain. Adding troponin, but unless this is positive I wouldn't postpone surgery for acute cardiac work up. Consider outpatient echocardiogram. (5) COPD (chronic obstructive pulmonary disease): Assessment and plan: Not active clinically today, continue outpatient bronchodilators. (6) Alcohol abuse: Status: Chronic Assessment and plan: Fannie doesn't fully identify as having an alcohol use disorder. We discussed the seriousness of this and she agrees she should stop, though she is still under the influence this morning. Offer medical and behavioral therapy at discharge. I don't think chronic benzo prescription for anxety/air hunger is a good idea given her alcohol use disorder, but she is also getting gabapentin which can help as an adjuvant for AUD and anxiety. (7) Tobacco use disorder: Status: Acute Assessment and plan: she is precontemplative about quitting this, NRT prn (she reqests nicotrol inhalers but we don't have them) (8) Chronic liver disease: Status: Chronic Assessment and plan: THere is a note from 2017 regarding ascites and concern for cirrhosis on CT, but CT in 2020 and since showed no cirrhosis. Her albumin is low but platelets reassuringly normal suggesting no portal hypertension. At this point this looks like mild alcoholic hepatitis rather than advanced fibrosis/cirrhosis. (9) DVT prophylaxis: Status: Acute Assessment and plan: defer to surgery post-op (10) Discharge planning issues: Status: Acute Assessment and plan: PT per orthopedic recommendations post-op. She does live alone and is high fall risk. Plan for managing alcohol use disorder and consideration for fracture prevention as outpatient. History of Present Illness History of Present Illness Chief Complaint: fall, hip pain Narrative: 63 yo F with alcohol use disorder, COPD, and recent admission for pneumonia 6 weeks ago presented to the emergency room early this morning after slipping and falling in her apartment. Fannie was feeling in her normal state of health prior to her fall. She had enjoyed 3 martinis, which is typical for her, and went to urinate and was walking back to her bed with she lost her balance and fell on her left side. She isn't sure but she thinks she tripped on her rug. She had no dizziness, chest pain, palpitations, or focal weakness before or after the fall. She did not hit her head or loose conciousness. She couldn't stand up but crawled to call the ambulance. Review of Systems Constitutional Constitutional: Denies anorexia, Denies chills, Denies fever(s), Denies headache(s), Reports lethargy and Denies weakness Eyes Eyes: Denies change in vision and Denies irritation ENT Ears, Nose, Mouth, and Throat: Denies dizziness, Denies headache(s), Denies nasal congestion, Denies nasal discharge and Denies sore throat Cardiovascular Cardiovascular: Denies chest pain with activity (walks regularly), Denies edema, Denies lightheadedness, Denies palpitations, Reports dyspnea (she has been using inhaler since hospitalization for pneumonia, not worse n) and Denies orthopnea Respiratory Respiratory: Denies cough, Denies excessive phlegm production, Reports dyspnea (she has been using inhaler since hospitalization for pneumonia, not worse n) and Denies wheezing Gastrointestinal Gastrointestinal: Denies abdominal pain, Denies melena, Denies hematochezia, Denies change in bowel habits, Denies dyspepsia, Denies heartburn, Reports loose stools (at times, no recent change), Denies nausea, Denies vomiting and Denies hematemesis Genitourinary Genitourinary: Denies hematuria, Denies dysuria and Denies urinary incontinence Integumentary/Breasts Skin/Breast: Denies rash and Denies skin ulcer Neurologic Neurologic: Denies confusion, Denies dizziness, Denies headache(s), Denies localized weakness, Denies memory loss, Denies seizure-like activity, Denies sensory deficit, Denies tremor(s) and Denies weakness Psychiatric Psychiatric: Reports anxiety (has been getting some anxiety recently), Denies confusion, Denies depression, Denies memory loss and Denies mood swings Endocrine Endocrine: Denies palpitations Hematologic/Lymphatic Hematologic/Lymphatic: Denies easy bleeding Allergic/Immunologic Allergic/Immunologic: Denies wheezing PFSH All Active Problems (Updated 05/18/23 @ 08:18 by Nikunj Downey) Discharge planning issues (Acute) Smoker (Acute) DVT prophylaxis (Acute) Closed fracture of left hip (Acute) Fall (Acute) Alcohol intoxication (Acute) Anxiety (Chronic) Pulmonary congestion (Acute) Hypomagnesemia (Acute) Bronchitis (Acute) Cavitary lesion of lung (Acute) H/O ETOH abuse (Acute) Tobacco use disorder (Acute 01/28/14) Pleural effusion (Acute) Hypomagnesemia (Acute) Fluid overload (Acute) Chest pain due to GERD (Acute) Chest wall muscle strain (Acute) Hypokalemia (Acute) COPD exacerbation (Acute) Emphysema lung (Acute) Nicotine dependence, cigarettes, uncomplicated (Acute) Atherosclerosis (Acute) Gastric wall thickening (Acute) Stenosis of right internal carotid artery (Acute) Mass of upper lobe of right lung (Acute) Alcohol abuse (Chronic) Dehydration (Acute) Diarrhea (Acute) Hypomagnesemia (Chronic) B12 deficiency (Acute) Ascites (Acute) Chronic liver disease (Chronic) Weight loss, non-intentional (Acute) Macrocytic anemia (Acute) Early satiety (Acute) Folate deficiency (Acute) Hypomagnesemia (Acute) Hypokalemia (Acute) Leg pain (Acute) Cellulitis (Acute) Bilateral leg ulcer (Acute) Medical History Pulmonary nodule COPD (chronic obstructive pulmonary disease) Hypomagnesemia Cachexia Hepatic fibrosis Ulcer of lower extremity Hair loss Vitamin D deficiency Chest pain Gastroesophageal reflux disease Hx pulmonary embolism COPD (chronic obstructive pulmonary disease) Chronic vomiting Malnutrition Frequent falls Bilateral leg pain Pancreatitis Diastolic dysfunction Folate deficiency anemia Ascites Bilateral lower extremity edema Unintentional weight loss Alcohol abuse Tobacco dependence syndrome Tobacco abuse Surgical History punch biopsy, skin of ankle, right lateral (11/24/16) negative for malignancy, sparse inflammation and reactive blood vessels foot surgery (~2000) Ligation of fallopian tube (~1999) ENT/Nasal surgery (~2007) Family History (Updated 05/18/23 @ 07:22 by Nikunj Downey) Father Lung disease Cancer Lung Social History (Updated 05/18/23 @ 07:23 by Nikunj Downey) Smoking/Tobacco Use Status: Former Tobacco Use Tobacco: How many years used: 45 Quit status: considering quitting Second Hand Exposure: Yes Smoking risk assessment performed?: Yes Alcohol Intake: current Alcohol Intake frequency: a few times a week Alcohol type: wine Counseling given: Yes Counseling provided: provider counseling Drug use: Rarely Substance use type: marijuana Housing: apartment Current gender identity: female Do you feel safe at home: Yes Do you feel safe in your relationship?: Yes Additional Social history: Lives alone in studio in [facility], 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 Grew up in [facility], sisters in area. History History 2 Para 0 Hx # Term Pregnancies Multiple births Hx # Pregnancies Ectopic pregnancies AB induced Hx Number of Living Children AB spontaneous Meds Allergies and Home Medications Allergies Allergy/AdvReac Type Severity Reaction Status Date / Time bacitracin Allergy Mild localized Verified 05/18/23 03:08 [From Neosporin redness ([id number])] neomycin Allergy Mild localized Verified 05/18/23 03:08 [From Neosporin redness ([id number])] polymyxin B Allergy Mild localized Verified 05/18/23 03:08 [From Neosporin redness ([id number])] Home Medications Medication Instructions Recorded Confirmed Type gabapentin 300 mg capsule 300 mg PO TID 08/13/20 05/18/23 History multivitamin (Multiple Vitamins 1 tab PO DAILY #30 tabs 08/13/20 05/18/23 Rx tablet) albuterol sulfate 90 mcg/actuation 2 puff inhalation Q6H PRN 01/18/22 05/18/23 Rx aerosol inhaler shortness of breath or wheezing #8.5 grams magnesium 250 mg tablet 250 mg PO DAILY #20 tabs 11/09/22 05/18/23 Rx omeprazole 40 mg capsule,delayed 40 mg PO DAILY 04/07/23 05/18/23 History release potassium See Rx Instructions .Route 04/19/23 05/18/23 History DIRECTED thiamine HCl (vitamin B1) 250 mg 250 mg PO DAILY 04/19/23 05/18/23 History tablet tiotropium 2.5 mcg-olodaterol 2.5 2 puff inhalation Q24H #4 grams 05/04/23 05/18/23 Rx mcg/actuation mist for inhalation (Stiolto Respimat) lorazepam 0.5 mg tablet (Ativan) 0.25 mg (1/2 x 0.5 mg) PO BID PRN 05/09/23 05/18/23 Rx anxiety #4 tabs ipratropium 0.5 mg-albuterol 3 mg 3 ml inhalation Q4H PRN wheezing 05/10/23 05/18/23 Rx (2.5 mg base)/3 mL nebulization #540 mL soln lisinopril 20 mg tablet 20 mg PO DAILY 05/10/23 05/18/23 History sucralfate 1 gram tablet 1 g PO BID 05/10/23 05/18/23 History Exam Narrative Exam Narrative: GEN: Alert and oriented, very pleasant and cooperative, gives linear history. No acute distress at rest lying flat in bed. HEENT: Head atraumatic. Conjunctiva clear, no icterus. PEERL, EOMI. no rhinorrhea. MMM, OP benign. Neck is supple with no masses or lymphadenopathy, trachea midline LUNGS: CTAB with normal effort except slight bibasilar rales. no wheeze. CV: RRR. 1/6 systolic murmur at apex. no gallops, or rubs. Coratid 2+ john. no elevation JVP ABD: +BS, soft, NT/ND, no fluid wave or hepatosplenomegaly. EXT: no cyanosis, clubbing, or edema MSK: No joint redness or swelling, left leg externally rotated and shortened. NEURO: CN 2-12 grossly intact. Intact movement of 4 extremities including toes on left. Normal speech and coordination SKIN: Melasma of face. No angiomata or large veins noted. No rashes or open wounds. PSYCH: normal mood and affect, normal thought process Results Imaging Chest x-ray: report reviewed (Hydrostatic interstitial pulmonary edema) and image reviewed Additional studies: Hip: Acute comminuted intertrochanteric left femur fracture. EKG: report reviewed and image reviewed (RBBB (old), no ischemic changes. QTC normalized since previous) Labs 05/18/23 04:42 05/18/23 04:42 Labs: Laboratory Results - last 24 hr 05/18/23 04:42 WBC 6.61 RBC 2.36 L Hgb 8.2 L Hct 25.1 L MCV 106 H MCH 34.7 H MCHC 32.7 RDW 15.2 H Plt Count 314 MPV 9.7 Sodium 136 Potassium 4.0 Chloride 99 Carbon Dioxide 20.7 L Anion Gap 16.3 H BUN 10 Creatinine 0.7 Est GFR (CKD-EPI 2020) 97.72 Glucose 77 Calcium 8.9 Magnesium 1.9 Total Bilirubin 0.3 AST 38 H ALT 19 Alkaline Phosphatase 105 Total Protein 5.9 L Albumin 2.6 L Urine Color Yellow Urine Clarity Sl Cloudy Urine pH 6.5 Ur Specific [place] 1.015 Urine Protein Negative Urine Ketones Trace H Urine Blood Negative Urine Nitrite Negative Urine Bilirubin Negative Urine Urobilinogen 0.2 Ur Leukocyte Esterase Negative Urine Glucose Negative Ethyl Alcohol 229.0 H Patient ABO/Rh A Positive Antibody Screen NEGATIVE Last Vital Signs Temp 36.3 C L 05/18/23 05:21 Pulse 100 H 05/18/23 05:21 Resp 24 05/18/23 05:21 BP 109/68 05/18/23 05:21 Pulse Ox 100 05/18/23 05:21 Time Spent Time spent with Patient: >75 minutes Time was spent: preparing to see the patient(eg.review tests), obtaining and/or reviewing separately otained hiistory, ordering medications,tests, procedures, referring, communicating with other health veterinarian laboratory animal care, indepentently interpreting results and counseling the patient
[2023-05-18 06:44] LABS: HCT 28.2 % (36.0-46.0); HGB 9.4 g/dL (11.2-15.7)
[2023-05-18 06:54] LABS: Prothrombin Time 9.9 sec (9.1-11.1)
[2023-05-18] MEDS: MORPHine 2 MG/ML SYR IVP ×4 (07:00→16:58)
[2023-05-18] MEDS: Normal Saline Flush 10 ML SYR IVP ×4 (07:01→16:59)
--- NOTE | 2023-05-18 07:07 | W.ORTHOCONSU ---
Date of service: 05/18/23 Time of Service: 07:44 History of Present Illness History of Present Illness Chief Complaint: Left hip fracture Narrative: Fannie is a 63-year-old female who tripped at home. She had had a few drinks and stumbled, over a rug per her recollection. She landed on her left side against hardwood floors. She had immediate pain. She crawled and called for emergency services. She was diagnosed with a comminuted intertrochanteric fracture about the left hip in the emergency department. Given her longstanding history of alcoholism and COPD, she was admitted to the medicine service for medical optimization and management in anticipation of hip surgery. She reports pain about the left hip. No pain in the left hip prior to the fall. No reported numbness and tingling. No head trauma. No chest pain or shortness of breath. She was hospitalized 6 weeks ago for pneumonia. She has had a residual occasional cough although otherwise feels to be in her regular health. She was ambulating without assistive device prior to this. Consults Consult date: 05/18/23 Requesting physician: Nikunj Downey Consult Reason Left Hip Fracture Assessment and Plan Assessment and plan (1) Closed intertrochanteric fracture of left hip: Status: Acute Assessment and plan: Fannie is a 63-year-old female who suffered a slip and fall onto the left hip resulting in a comminuted and displaced intertrochanteric fracture about the left hip. Given the nature of the fracture I recommended operative fixation in the form of intramedullary nail. I reviewed this with her. I discussed the technical details. I reviewed the risk to include bleeding, infection, pain, stiffness, malunion, nonunion, hardware prominence, hardware failure, osteonecrosis or acute arthritis, blood clot, cardiopulmonary demise. Despite these risk, she elects to proceed. Qualifiers: Encounter type: initial encounter Fracture alignment: displaced Qualified Code(s): S72.142A - Displaced intertrochanteric fracture of left femur, initial encounter for closed fracture Review of Systems All systems reviewed & are unremarkable except as noted in HPI and below PFSH All Active Problems (Updated 05/18/23 @ 13:29 by Jeronimo Feliciano MD) Closed intertrochanteric fracture of left hip (Acute) Discharge planning issues (Acute) Smoker (Acute) DVT prophylaxis (Acute) Closed fracture of left hip (Acute) Fall (Acute) Alcohol intoxication (Acute) Anxiety (Chronic) Pulmonary congestion (Acute) Hypomagnesemia (Acute) Bronchitis (Acute) Cavitary lesion of lung (Acute) H/O ETOH abuse (Acute) Tobacco use disorder (Acute 01/28/14) Pleural effusion (Acute) Hypomagnesemia (Acute) Fluid overload (Acute) Chest pain due to GERD (Acute) Chest wall muscle strain (Acute) Hypokalemia (Acute) COPD exacerbation (Acute) Emphysema lung (Acute) Nicotine dependence, cigarettes, uncomplicated (Acute) Atherosclerosis (Acute) Gastric wall thickening (Acute) Stenosis of right internal carotid artery (Acute) Mass of upper lobe of right lung (Acute) Alcohol abuse (Chronic) Dehydration (Acute) Diarrhea (Acute) Hypomagnesemia (Chronic) B12 deficiency (Acute) Ascites (Acute) Chronic liver disease (Chronic) Weight loss, non-intentional (Acute) Macrocytic anemia (Acute) Early satiety (Acute) Folate deficiency (Acute) Hypomagnesemia (Acute) Hypokalemia (Acute) Leg pain (Acute) Cellulitis (Acute) Bilateral leg ulcer (Acute) Medical History Pulmonary nodule COPD (chronic obstructive pulmonary disease) Hypomagnesemia Cachexia Hepatic fibrosis Ulcer of lower extremity Hair loss Vitamin D deficiency Chest pain Gastroesophageal reflux disease Hx pulmonary embolism COPD (chronic obstructive pulmonary disease) Chronic vomiting Malnutrition Frequent falls Bilateral leg pain Pancreatitis Diastolic dysfunction Folate deficiency anemia Ascites Bilateral lower extremity edema Unintentional weight loss Alcohol abuse Tobacco dependence syndrome Tobacco abuse Surgical History punch biopsy, skin of ankle, right lateral (11/24/16) negative for malignancy, sparse inflammation and reactive blood vessels foot surgery (~2000) Ligation of fallopian tube (~1999) ENT/Nasal surgery (~2007) Family History Father Lung disease Cancer Lung Social History Smoking/Tobacco Use Status: Former Tobacco Use Tobacco: How many years used: 45 Quit status: considering quitting Second Hand Exposure: Yes Smoking risk assessment performed?: Yes Alcohol Intake: current Alcohol Intake frequency: a few times a week Alcohol type: wine Counseling given: Yes Counseling provided: provider counseling Drug use: Rarely Substance use type: marijuana Housing: apartment Current gender identity: female Do you feel safe at home: Yes Do you feel safe in your relationship?: Yes Additional Social history: 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 Grew up in [facility], sisters in area. History History Para 0 Hx # Term Pregnancies Multiple births Hx # Pregnancies Ectopic pregnancies AB induced Hx Number of Living Children AB spontaneous Exam Narrative Exam Narrative: Laying supine in the hospital bed. Appears to be uncomfortable. Alert and oriented x 3. Breathing comfort without audible wheezing or distress. Able to communicate in full sentences and respond appropriately. Evaluation of left lower extremity shows shortening and some external rotation. There is no defect of the skin seen about the left hip. There is no pain with palpation of the knee, foot, or ankle. Intact sensation over the deep and superficial peroneal nerve and tibial nerve. Palpable DP and PT pulse. Results Last Vital Signs Temp 36.3 C L 05/18/23 05:21 Pulse 100 H 05/18/23 05:21 Resp 24 05/18/23 05:21 BP 109/68 05/18/23 05:21 Pulse Ox 100 05/18/23 05:21 Labs 05/18/23 06:31 05/18/23 04:42 Labs: Laboratory Results - last 24 hr 05/18/23 05/18/23 04:42 06:31 WBC 6.61 RBC 2.36 L Hgb 8.2 L 9.4 L Hct 25.1 L 28.2 L MCV 106 H MCH 34.7 H MCHC 32.7 RDW 15.2 H Plt Count 314 MPV 9.7 PT 9.9 INR 1.0 Sodium 136 Potassium 4.0 Chloride 99 Carbon Dioxide 20.7 L Anion Gap 16.3 H BUN 10 Creatinine 0.7 Est GFR (CKD-EPI 2020) 97.72 Glucose 77 Calcium 8.9 Magnesium 1.9 Total Bilirubin 0.3 AST 38 H ALT 19 Alkaline Phosphatase 105 Total Protein 5.9 L Albumin 2.6 L Urine Color Yellow Urine Clarity Sl Cloudy Urine pH 6.5 Ur Specific [employer] 1.015 Urine Protein Negative Urine Ketones Trace H Urine Blood Negative Urine Nitrite Negative Urine Bilirubin Negative Urine Urobilinogen 0.2 Ur Leukocyte Esterase Negative Urine Glucose Negative Ethyl Alcohol 229.0 H Patient ABO/Rh A Positive Antibody Screen NEGATIVE Imaging Imaging Studies: X-ray of the left hip shows a comminuted fracture of the left proximal femur. There is a primary inotrope fracture at the basicervical region with involvement of the greater trochanter. No suspicious lesions are identified.
[2023-05-18] MEDS: Tiotropium/Olodaterol 10 PUFF INHALER 2 PUFF IH (07:46)
[2023-05-18] MEDS: Ketorolac 15 MG/ML VIAL IVP (08:25)
[2023-05-18] MEDS: Pantoprazole 40 MG VIAL IVP (08:25)
[2023-05-18 08:47] LABS: Lab Add On Test DONE
--- NOTE | 2023-05-18 08:57 | ANES.PREOP_ITS ---
General Info Date of Service Date Performed: 05/18/23 Height: 5 ft 8 in Weight: 54.885 kg Body Mass Index (BMI): 18.3 Surgical Procedure: Operation Date: 05/18/23 14:30 Proposed Procedure Side Surgeon p Hip TFNA Left Jeronimo Feliciano MD Meds Allergies and Home Medications Allergies Allergy/AdvReac Type Severity Reaction Status Date / Time bacitracin Allergy Mild localized Verified 05/18/23 03:08 [From Neosporin redness ([id number])] neomycin Allergy Mild localized Verified 05/18/23 03:08 [From Neosporin redness ([id number])] polymyxin B Allergy Mild localized Verified 05/18/23 03:08 [From Neosporin redness ([id number])] Home Medication Medication Instructions Recorded gabapentin 300 mg capsule 300 mg PO TID 08/13/20 multivitamin (Multiple Vitamins 1 tab PO DAILY #30 tabs 08/13/20 tablet) albuterol sulfate 90 mcg/actuation 2 puff inhalation Q6H PRN 01/18/22 aerosol inhaler shortness of breath or wheezing #8.5 grams magnesium 250 mg tablet 250 mg PO DAILY #20 tabs 11/09/22 omeprazole 40 mg capsule,delayed 40 mg PO DAILY 04/07/23 release potassium See Rx Instructions .Route 04/19/23 DIRECTED thiamine HCl (vitamin B1) 250 mg 250 mg PO DAILY 04/19/23 tablet tiotropium 2.5 mcg-olodaterol 2.5 2 puff inhalation Q24H #4 grams 05/04/23 mcg/actuation mist for inhalation (Stiolto Respimat) lorazepam 0.5 mg tablet (Ativan) 0.25 mg (1/2 x 0.5 mg) PO BID PRN 05/09/23 anxiety #4 tabs ipratropium 0.5 mg-albuterol 3 mg 3 ml inhalation Q4H PRN wheezing 05/10/23 (2.5 mg base)/3 mL nebulization #540 mL soln lisinopril 20 mg tablet 20 mg PO DAILY 05/10/23 sucralfate 1 gram tablet 1 g PO BID 05/10/23 Current Visit Medications: Current Medications Generic Name Dose Route Start Last Admin Trade Name Freq PRN Reason Stop Dose Admin Albuterol Sulfate 2 puff 05/18/23 06:15 Albuterol Hfa 8 Gm 60 Puff Inh IH Q6H PRN PRN shortness of breath or wheezing Albuterol/Ipratropium 3 ml 05/18/23 06:15 Albuterol/Ipratropium 3 Ml Upd Vial IH Q4H PRN PRN wheezing Device 1 each 05/18/23 07:00 Inhaler, Assist Device MC DIRECTED SIVA Multivitamins 10 ml/ Thiamine 1,011.2 mls @ 42 mls/hr 05/18/23 08:30 HCl 100 mg/ Folic Acid 1 mg/ IV Dextrose/Sodium Chloride DAILY SIVA Acetaminophen 1,000 mg in 100 mls @ 400 mls/hr 05/18/23 07:46 Ofirmev IVPB Q8H PRN PRN Tranexamic Acid 1,000 mg/ 60 mls @ 360 mls/hr 05/18/23 08:00 Sodium Chloride IVPB PREOP SIVA Sodium Chloride 500 mls @ 0 mls/hr 05/18/23 08:45 Saline 500ml Bag IV DIRECTED PRN As Directed IV Miscellaneous Supplies 1 each 05/18/23 08:45 Iv Access IV DIRECTED SIVA Lorazepam 3 - 4 mg 05/18/23 06:17 Lorazepam 2 Mg/Ml Vial IVP DIRECTED PRN Morphine Sulfate 2 mg 05/18/23 06:16 05/18/23 07:00 Morphine 2 Mg/Ml Syr IVP 2 mg Q2H PRN PRN Administration Ondansetron HCl 4 mg 05/18/23 03:39 05/18/23 04:41 Ondansetron 4 Mg/2 Ml Vial IVP 4 mg Q4H PRN PRN Administration Pantoprazole Sodium 40 mg 05/18/23 08:30 05/18/23 08:25 Pantoprazole 40 Mg Vial IVP 40 mg DAILY SIVA Administration Sodium Chloride 0 ml 05/18/23 08:30 05/18/23 08:26 Normal Saline Flush 10 Ml Syr IVP 40 ml BID SIVA Administration Sodium Chloride 0 ml 05/18/23 03:39 Normal Saline 10 Ml Vial IJ DIRECTED PRN Sodium Chloride 0 ml 05/18/23 08:45 Normal Saline Flush 10 Ml Syr IVP PRN PRN Tiotropium [place]/Olodaterol 2 puff 05/18/23 08:30 05/18/23 07:46 Tiotropium/Olodaterol 10 Puff Inhaler IH 2 puffs DAILY SIVA Administration PFSH Active Problems Active Problems: Problem Status Onset Code Closed fracture of left hip S72.002A Fall W19.XXXA Alcohol intoxication F10.929 Anxiety F41.9 Pulmonary congestion R09.89 Hypomagnesemia E83.42 Bronchitis J40 Cavitary lesion of lung J98.4 H/O ETOH abuse F10.11 Tobacco use disorder 01/28/14 F17.200 Pleural effusion J90 Hypomagnesemia E83.42 Fluid overload E87.70 Chest pain due to GERD K21.9, R07.9 Chest wall muscle strain S29.011A Hypokalemia E87.6 COPD exacerbation J44.1 Emphysema lung J43.9 Nicotine dependence, cigarettes, uncomplicated F17.210 Atherosclerosis I70.90 Gastric wall thickening K31.89 Stenosis of right internal carotid artery I65.21 Mass of upper lobe of right lung R91.8 Dehydration E86.0 Alcohol abuse F10.10 Gastroenteritis K52.9 Hypotension I95.9 Dehydration E86.0 Diarrhea R19.7 Acute kidney injury N17.9 Hypomagnesemia E83.42 B12 deficiency E53.8 Hypocalcemia E83.51 Ascites R18.8 Chronic liver disease K76.9 Weight loss, non-intentional R63.4 Macrocytic anemia D53.9 Early satiety R68.81 Folate deficiency E53.8 Hypomagnesemia E83.42 Hypokalemia E87.6 Leg pain M79.606 Cellulitis L03.90 Bilateral leg ulcer L97.919, L97.929 Medical History Medical History Pulmonary nodule COPD (chronic obstructive pulmonary disease) Hypomagnesemia Cachexia Hepatic fibrosis Ulcer of lower extremity Hair loss Vitamin D deficiency Chest pain Gastroesophageal reflux disease Hx pulmonary embolism COPD (chronic obstructive pulmonary disease) Chronic vomiting Malnutrition Frequent falls Bilateral leg pain Pancreatitis Diastolic dysfunction Folate deficiency anemia Ascites Bilateral lower extremity edema Unintentional weight loss Alcohol abuse Tobacco dependence syndrome Tobacco abuse Surgical History Surgical History punch biopsy, skin of ankle, right lateral (07/26/17) negative for malignancy, sparse inflammation and reactive blood vessels foot surgery (~2000) Ligation of fallopian tube (~1999) ENT/Nasal surgery (~2007) Tobacco Smoking/Tobacco Use Status: Former Tobacco Use Second hand exposure: Yes Alcohol Alcohol Intake: current Alcohol intake frequency: a few times a week Alcohol type: wine Counseling provided: provider counseling Substance Use Substance use: Rarely Substance use type: marijuana Prental History History 2 Para 0 Hx # Term Pregnancies Multiple births Hx # Pregnancies Ectopic pregnancies AB induced Hx Number of Living Children AB spontaneous Vital Signs and Lab Results Vital Signs Most Recent Vital Signs in EMR: Most Recent Vital Signs Temp Pulse Resp BP Pulse Ox 36.7 C 111 H 24 110/59 L 98 05/18/23 07:38 05/18/23 07:38 05/18/23 05:21 05/18/23 07:38 05/18/23 07:38 Lab Results 05/18/23 06:31 05/18/23 04:42 Blood Type / Crossmatch: 2 Patient ABO/Rh A Positive 05/18/23 Antibody Screen NEGATIVE 05/18/23 Complete Blood Count: 2 White Blood Count 6.61 10^3/uL (4.4-10.8) 05/18/23 04:42 Red Blood Count 2.36 10^6/uL (3.93-5.22) L 05/18/23 04:42 Hemoglobin 9.4 g/dL (11.2-15.7) L 05/18/23 06:31 Hematocrit 28.2 % (36.0-46.0) L 05/18/23 06:31 Platelet Count 314 10^3/uL (130-400) 05/18/23 04:42 Complete Metabolic Panel: 2 Sodium 136 mmol/L (136-145) 05/18/23 04:42 Potassium 4.0 mmol/L (3.5-5.1) 05/18/23 04:42 Chloride 99 mmol/L (98-107) 05/18/23 04:42 Carbon Dioxide 20.7 mmol/L (21.0-32.0) L 05/18/23 04:42 BUN 10 mg/dL (7-18) 05/18/23 04:42 Creatinine 0.7 mg/dL (0.55-1.02) 05/18/23 04:42 Est GFR (CKD-EPI 2020) 97.72 (mL/min/1.73m2) 05/18/23 04:42 Magnesium 1.9 mg/dL (1.8-2.4) 05/18/23 04:42 Calcium 8.9 mg/dL (8.5-10.1) 05/18/23 04:42 Albumin 2.6 g/dL (3.4-5.0) L 05/18/23 04:42 Glucose 77 mg/dL (74-106) 05/18/23 04:42 Liver Function Panel: 2 Alanine Aminotransferase (ALT/SGPT) 19 U/L (14-59) 05/18/23 04: 42 Aspartate Amino Transf (AST/SGOT) 38 U/L (15-37) H 05/18/23 04: 42 Coagulation Panel: 2 INR International Normalized Ratio 1.0 (0.9-1.1) 05/18/23 06:3 1 Prothrombin Time 9.9 sec (9.1-11.1) 05/18/23 06:31 Cardiac Panel: 2 Troponin I < 50 ng/L (< or =60) 05/18/23 NT-Pro-B Natriuret Pep 5365 pg/mL (<300) H 04/20/23 Arterial Blood Gas: 2 No Data to Display Venous Blood Gas: 2 No Data to Display Pancreas Panel: 2 No Data to Display Thyroid Panel: 2 No Data to Display Infectious Disease: 2 No Data to Display Blood Cultures: 2 No Data to Display Toxicology Panel: 2 Ethyl Alcohol Level 229.0 mg/dL (<10) H 05/18/23 04:42 Imaging and Studies Imaging and Studies Study information below may be from another EMR and interpreted by another provider. Please see original notes in EMR for more complete details. EKG Summary: 05/25: sinus. RBBB. Echocardiogram Summary: 11/15: mild LVH, LVEF 65-70%, moderate TR. Anesthesia Assessment and Plan Anesthesia History Personal History: No History of Anesthesia Complications Family History: No Family History of Anesthesia Complications Exercise Tolerance Exercise Tolerance: Metabolic Equivalents<4 Pertinent Negatives Pertinent Negatives: No Major Cardiovascular Symptoms or Complaints and No History of CVA/TIA Cardiac & Pulmonary Exam Cardiac Exam: Normal S1/S2 Heart Sounds Pulmonary Exam: Clear Bilateral Breath Sounds Cardiac and Pulmonary Comment:: Pt reports smoker cough and chest pain with anxiety attack recently. Pt takes medication for reflux regularly Implantable Cardiac Device Does patient have a Pacemaker or an ICD?: No Airway Exam Known Difficult Airway: No Mallampati Class: 3 Mouth Opening: Narrow (< 3cm) Thyromental Distance: Greater than 3 cm Neck Range of Motion: Full ROM Neck Circumference: Normal Teeth Condition: Generalized Poor Dentition (mssing teeth ) ASA Classification ASA Score: ASA 3 Emergency Case?: No NPO Status NPO Status: NPO Clears >2 hours, Solids >8 hours Anesthesia Plan Resuscitation Status: Full Code Anesthesia Technique: General Anesthesia Airway Planned: Endotracheal Tube Monitors Used: Standard Monitors and SedLine Preoperative Comments:: 63 yo female for hip fracture. sig PMHx: COPD/emphysema/cavitary lung lesions, hx PE, carotid stenosis (50-70% stenosis right ICA), GERD, etoh abuse, smoker,
[2023-05-18] MEDS: MULTIVITAMIN 10 ML, THIAMINE 100 MG, FOLIC ACID 1 MG in DEXTROSE 5%-0.45% SALINE 1,000 ML 42 ML IV (09:07)
[2023-05-18 09:09] LABS: Troponin I < 50 ng/L (< or =60)
[2023-05-18 09:29] LABS: Vitamin D 25 Total 81.8 ng/mL (30-100)
--- NOTE | 2023-05-18 11:08 | PHA.REVIEW2 ---
Pharmacy Admission Review Admission Clinical Review Admission Pharmacy Review: Discharge planning issues (Acute) DVT prophylaxis (Acute) Closed fracture of left hip (Acute) Fall (Acute) Alcohol intoxication (Acute) Tobacco use disorder (Acute 01/28/14) bacitracin [From Neosporin ([id number])] Allergy (Mild, Verified 05/18/23 03:08) localized redness neomycin [From Neosporin ([id number])] Allergy (Mild, Verified 05/18/23 03:08) localized redness polymyxin B [From Neosporin ([id number])] Allergy (Mild, Verified 05/18/23 03:08) localized redness Resuscitation Status Full Code Height 5 ft 8 in Weight 54.885 kg Comments Comments/Follow Ups: Hip surgery planned for this afternoon. Post surgery watch for addition of home medications. Pharmacy Admission Review Renal Dosing Renal Dosing: BUN 10 mg/dL (7-18) 05/18/23 04:42 Creatinine 0.7 mg/dL (0.55-1.02) 05/18/23 04:42 Medications needing adjustments: Reviewed (CrCl 50.54 mL/min) Anticoagulation Anticoagulation: Hgb 9.4 g/dL (11.2-15.7) L 05/18/23 06:31 Hct 28.2 % (36.0-46.0) L 05/18/23 06:31 Plt Count 314 10^3/uL (130-400) 05/18/23 04:42 INR 1.0 (0.9-1.1) 05/18/23 06:31 Creatinine 0.7 mg/dL (0.55-1.02) 05/18/23 04:42 DVT Prophylaxis: Reviewed (None at this time, going into surgery this afternoon) Opiate Usage Evaluate Pain Scale/Pains Meds: Reviewed (PRN morphine) Scheduled Bowel Reg ordered if on Opiates?: No Relevant Labs Relevant Labs: Sodium 136 mmol/L (136-145) 05/18/23 04:42 Potassium 4.0 mmol/L (3.5-5.1) 05/18/23 04:42 Chloride 99 mmol/L (98-107) 05/18/23 04:42 Magnesium 1.9 mg/dL (1.8-2.4) 05/18/23 04:42 Electrolytes, C-Reactive P, ESR: Reviewed (AST 385, albumin 2.6, Hgb 9.4, ethyl alcohol 229) Cardiac Review Cardiac Review: Troponin I < 50 ng/L (< or =60) 05/18/23 08:43 BP, HR, EF%: Reviewed (BP 110/59, HR 111) QTc Review QTc: Reviewed (449 05/18/23) IV to PO Switch IV Medications: Reviewed (NPO due to surgery today) Home Meds Home Med List reviewed: Reviewed Relevent Home Meds Not ordered & why?: Is currently NPO due to procedure later this afternoon. No orders for PO home meds: Gabapentin, lisinopril, magnesium, multivitamin (receiving banana bag), omeprazole (has order for IVP pantoprazole), sucralfate, thiamine Current Meds Current Medication Order Review: Reviewed Comments Comments/Follow Ups: Hip surgery planned for this afternoon. Post surgery watch for addition of home medications.
--- NOTE | 2023-05-18 13:15 | DI.RAD_ITS ---
Exam(s) XR HIP LT IN OR EXAM: XR HIP LT IN OR CLINICAL HISTORY: Closed fracture of left hip. TECHNIQUE: 2D and realtime digital imaging was performed. COMPARISON: CR,XR XR HIP LT COMPLETE AP PELVIS from 05/18/2023 FINDINGS: Fluoroscopy was provided in the OR for Dr. Feliciano. Hard copy images show placement intramedullary renetta through the proximal femur for fracture fixation. The alignment appears anatomic. Please see procedure note for details. Fluoro time: 56seconds RADIATION DOSE DELIVERED: jessi Tang=5.46 mGy
[2023-05-18] MEDS: Lactated Ringers 1,000 ML 30 ML IV (13:54)
[2023-05-18] MEDS: ceFAZolin 2 GM/50 ML BAG IVPB (14:15)
--- NOTE | 2023-05-18 15:28 | W.PM.OP ---
Date of service: 05/18/23 Time of Service: 14:30 Operative Note Operative Note DATE OF PROCEDURE: 05/18/23 PRE-OP DIAGNOSIS: Left Intertrochanteric Femur Fracture POST-OP DIAGNOSIS: same PROCEDURE: Left Intramedullary Fixation of Proximal Femur Fracture SURGEON: Jeronimo Feliciano ANESTHESIA TYPE: General LMA/ETT Refer to Anesthesia Record ESTIMATED BLOOD LOSS: 50 PATHOLOGY: none sent COMPLICATIONS: None Patient was transported to: PACU Patient's condition: stable Implants: Depuy-Synthes TFNA 11mm x 170mm Indications: Fannie who presented to the Emergency Department after a fall. X-rays confirmed the diagnosis of a intertrochanteric fracture of the proximal femur. I reviewed the possible treatment options and given the fracture of the femur, I recommened operative fixation. I discussed the technical details of the surgery. I reviewed the risks such as bleeding, infection, pain, stiffness, malunion, nonunion, hardware prominence, hardware faiilure, malrotation, avascular necrosis, blood clot. Despite these risks, she agreed to proceed. Findings: There was a fracture of the proximal femur which was able to be reduced with traction and internal rotation and external manipulation. Procedure Description: Fannie was taken back to the operating room. A general anesthestic was then administered. The feet were wrapped with cast padding and Coban and then placed into the boot liners and then into the boots. Care was taken to protect the skin and make sure the heels were fully down and the boots were stable. The patient was then positioned onto the HANA table. Both legs were held in a neutral position. SCDs were applied. The patient was then slid down onto a perineal post. The arm of the operative side was then placed across the chest and secured. The nonoperative leg was scissored. A gentle reduction was then performed with traction and internal rotation and gentle external manipulation. Prophylactic antibiotics in the form of Cefazolin were administered. 1g of Tranxemic Acid was given intravenously within 30 minutes of incision. The left leg was then prepped with Chloraprep and draped in a standard fashion with shower-curtain type drape with Iodine impregnated skin protection. A timeout to confirm correct identity, side and site, procedure, allergies, anesthesia, and medical concerns was performed. Using fluoroscopy, the starting point was marked over the lateral hip, proximal to the tip of the greater trochanter. A 3cm incision was made through skin and the fascia of the gluteus musculature until the tip of the trochanter was palpable. The starting wire was placed onto the tip, just slightly on the media aspect, and centered in the AP plane. Using a kaitlin, the starting guide wire was buried into the bone. A lateral x-ray confirmed appropriate position and the guidewire was advanced to the level of the lesser trochanter. With a tissue protector, the proximal femur was opened with the opening reamer. The short TFNA was chosen for this case and a Synthes TFNA [id number] nail was selected and opened on the back table. The nail was assembled to the aiming arm on the back table and confirmed to be aligned with the triple sleeve for blade insertion. Using manual force the nail was advanced into the femur. However, it was noted not to advance as far as usual and the inner diameter of the canal looked tight on the nail (measured preoperatively at 12mm). Therefore, I decided to ream the femur to avoid iatrogenic fracture. I open the flexible reamer system and reamed up to 12 mm past the isthmus. Then, the nail was reinserted and advanced appropriately. A few light mallet blows advanced the nail to its appropriate, final position. The triple sleeve was inserted through the targeting arm and the skin, soft tissue, and IT band was then incised. The triple sleeve was advanced down to the lateral femur. A guidewire was advanced into the femoral head where it was noted to be centered. A lateral x-ray was used to confirm centered positioning on the lateral. Happy with the length of the guidewire, this was measured. A 95mm helical blade was opened. The lateral cortex was opened and the path of the blade was reamed with a tapered reamer to appropriate depth. The helical blade was malletted into position and confirmed to be appropriately located on fluoroscopy. The set screw was advanced to a half turn shy of fully tightened, allowing for the helical blade to slide. The targeting device was removed. AP and lateral x-rays of the hip confirmed appropriate positioning within the femur and with good alignment of the fracture. Using the targeting arm, the skin was incised for placement of the distal locking screw. The trochar was inserted through the skin and IT band down onto the lateral cortex of the femur. The 4.2mm drill was advanced across the femur and through the nail. This was measured and an appropriately sized 5.0mm screw was placed. The targeting arm was removed. Final x-rays were obtained. The wounds were thoroughly irrigated. A cocktail consisting of 123mg of Ropivacaine, 0.25mg of Epinephrine, 0.04mg of Clonidine, and 15mg of Ketorolac, diluted to 50cc was injected throughout the wounds both deep and superficially. The deep fascia of the proximal two wounds was reapproximated with a 0 Vicryl. The deep tisses were closed with a 2-0 Vicryl and the skin was closed with a running subcuticular Monocryl. The wounds were dressed with a Mepilex silver dressing. At the end of the case, all counts were correct. Fannie tolerated the procedure well without known complication and was taken to the PACU for recovery. Physical therapy will start post-operatively, weigh-bearing as tolerated with assistive devices. Anticoagulation will start within 12-24 hours. 3 doses of post-operative antibiotics for prophylaxis will be administered.
--- NOTE | 2023-05-18 16:24 | W.ANESPOSTOP ---
Postoperative Evaluation Date, Time and Location Date Performed: 05/18/23 Time Performed: 16:24 Patient Location: PACU Vital Signs Most Recent Imported Vital Signs: Most Recent Vital Signs Temp Pulse Resp BP Pulse Ox 36.5 C 93 H 22 135/58 L 94 05/18/23 15:53 05/18/23 15:53 05/18/23 15:53 05/18/23 15:53 05/18/23 15:53 Pain Score Most Recent Pain Score: Most Recent Pain Score Pain Level [Hip] 10 05/18/23 03:04 Pain Level 5 05/18/23 15:53 Assessment Mental Status: Awake (Alert & Oriented to Patient Baseline) Airway and Respiratory Function: Patent airway with normal (patient baseline) respiratory exam Cardiovascular Function: Hemodynamically Stable Hydration Status: Adequately Hydrated Nausea & Vomiting: No Nausea or Vomiting Pain: Pain is tolerable per patient Peripheral Nerve Block: Patient did not receive a nerve block
--- NOTE | 2023-05-18 16:46 | CHAPLAIN ---
Fannie was resting in bed when I visited. She looked a bit harried, but sounded calm. She told me about her fall at home, missing her bed and ending up in the floor and then crawling to her bedside table to call an ambulance. Fannie was pleasant and easily engaged in conversation. She said she expects to have surgery this afternoon as she's broken her hip in three places. She had a friend visiting when I stopped in.
--- NOTE | 2023-05-18 16:55 | PDOC.CMIN ---
Date of service: 05/18/23 Time of Service: 16:55 Care Management Initial Assmt Initial Assessment REASON FOR HOSPITALIZATION:: Left Hip Fx PREVIOUS FUNCTIONAL STATUS/SOCIAL/FAMILY SUPPORTS:: Resides in [facility], independent at baseline in the community, multiple ED visits in the last 12 months CURRENT FUNCTIONAL STATUS:: Brought to OR today. ADVANCE DIRECTIVES:: COLST on file Has patient been provided with info about the portal/API?: Yes Did the patient sign up for the portal?: No CODE STATUS:: Full Code INSURANCE COVERAGE / FINANCIAL ISSUES:: BC/BS FEP CURRENT HOME/COMMUNITY SERVICES/EQUIPMENT:: None, currently. PRIMARY CARE PHYSICIAN:: Shell Hopper POTENTIAL DISCHARGE NEEDS:: Follow up appointments PATIENT/FAMILY EDUCATION NEEDS:: Review discharge instructions, discuss Ask Me Three. TRANSPORTATION:: Dependent on mobility. PLAN:: Fannie was brought to the OR today, she will be closely monitored post surgically and evaluated by PT. CM following. PFSH All Active Problems (Updated 05/18/23 @ 13:29 by Jeronimo Feliciano MD) Closed intertrochanteric fracture of left hip (Acute) Discharge planning issues (Acute) Smoker (Acute) DVT prophylaxis (Acute) Closed fracture of left hip (Acute) Fall (Acute) Alcohol intoxication (Acute) Anxiety (Chronic) Pulmonary congestion (Acute) Hypomagnesemia (Acute) Bronchitis (Acute) Cavitary lesion of lung (Acute) H/O ETOH abuse (Acute) Tobacco use disorder (Acute 01/28/14) Pleural effusion (Acute) Hypomagnesemia (Acute) Fluid overload (Acute) Chest pain due to GERD (Acute) Chest wall muscle strain (Acute) Hypokalemia (Acute) COPD exacerbation (Acute) Emphysema lung (Acute) Nicotine dependence, cigarettes, uncomplicated (Acute) Atherosclerosis (Acute) Gastric wall thickening (Acute) Stenosis of right internal carotid artery (Acute) Mass of upper lobe of right lung (Acute) Alcohol abuse (Chronic) Dehydration (Acute) Diarrhea (Acute) Hypomagnesemia (Chronic) B12 deficiency (Acute) Ascites (Acute) Chronic liver disease (Chronic) Weight loss, non-intentional (Acute) Macrocytic anemia (Acute) Early satiety (Acute) Folate deficiency (Acute) Hypomagnesemia (Acute) Hypokalemia (Acute) Leg pain (Acute) Cellulitis (Acute) Bilateral leg ulcer (Acute) Medical History Pulmonary nodule COPD (chronic obstructive pulmonary disease) Hypomagnesemia Cachexia Hepatic fibrosis Ulcer of lower extremity Hair loss Vitamin D deficiency Chest pain Gastroesophageal reflux disease Hx pulmonary embolism COPD (chronic obstructive pulmonary disease) Chronic vomiting Malnutrition Frequent falls Bilateral leg pain Pancreatitis Diastolic dysfunction Folate deficiency anemia Ascites Bilateral lower extremity edema Unintentional weight loss Alcohol abuse Tobacco dependence syndrome Tobacco abuse Surgical History punch biopsy, skin of ankle, right lateral (11/24/16) negative for malignancy, sparse inflammation and reactive blood vessels foot surgery (~2000) Ligation of fallopian tube (~1999) ENT/Nasal surgery (~2007) Family History Father Lung disease Cancer Lung Social History Smoking/Tobacco Use Status: Former Tobacco Use Tobacco: How many years used: 45 Quit status: considering quitting Second Hand Exposure: Yes Smoking risk assessment performed?: Yes Alcohol Intake: current Alcohol Intake frequency: a few times a week Alcohol type: wine Counseling given: Yes Counseling provided: provider counseling Drug use: Rarely Substance use type: marijuana Housing: apartment Current gender identity: female Do you feel safe at home: Yes Do you feel safe in your relationship?: Yes Additional Social history: Lives alone in studio in [facility], 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 Grew up in [facility], sisters in area. History History Para 0 Hx # Term Pregnancies Multiple births Hx # Pregnancies Ectopic pregnancies AB induced Hx Number of Living Children AB spontaneous SDOH(Care Management) Screening Will the Patient Participate in the Screening?: Yes Do you worry about having a steady place to live?: no Problems where you live: no known problems In the past 12 months, have you had to go without electric, gas, oil or water in your home?: no Have you or anyone in your house had to go without enough food to eat?: no Has lack of transportation kept you from medical appointments or from doing things needed for daily living?: no Has anyone in your support network made you feel unsafe for any reason?: no
--- NOTE | 2023-05-18 17:00 | IN_ITS ---
PT Notes Visit Reasons: left hip fx Physical Therapy Inpatient Initial Evaluation Date: 05/18/2023 Referring Doctor: Jeronimo Feliciano MD PT Orders: PT CONSULT: S/P Ortho surgery. S/P IMN fixation of left hip Frx Precautions: Fall. Standard. WBAT on the left LE with AD. Patient Profile/Admitting Diagnosis: Fannie is a 63-year-old female who sustained an acute intertrochanteric fracture of the left femur with avulsion of the lesser trochanter from a trip and fall at home. She is status post IMN fixation on postoperative day 0. She is also admitted for management of EtOH intoxication, anemia, diastolic dysfunction, tobacco use disorder, and chronic liver disease. PMHX: All Active Problems (Updated 05/18/23 @ 08:18 by Nikunj Downey) Discharge planning issues (Acute) Smoker (Acute) DVT prophylaxis (Acute) Closed fracture of left hip (Acute) Fall (Acute) Alcohol intoxication (Acute) Anxiety (Chronic) Pulmonary congestion (Acute) Hypomagnesemia (Acute) Bronchitis (Acute) Cavitary lesion of lung (Acute) H/O ETOH abuse (Acute) Tobacco use disorder (Acute 01/28/14) Pleural effusion (Acute) Hypomagnesemia (Acute) Fluid overload (Acute) Chest pain due to GERD (Acute) Chest wall muscle strain (Acute) Hypokalemia (Acute) COPD exacerbation (Acute) Emphysema lung (Acute) Nicotine dependence, cigarettes, uncomplicated (Acute) Atherosclerosis (Acute) Gastric wall thickening (Acute) Stenosis of right internal carotid artery (Acute) Mass of upper lobe of right lung (Acute) Alcohol abuse (Chronic) Dehydration (Acute) Diarrhea (Acute) Hypomagnesemia (Chronic) B12 deficiency (Acute) Ascites (Acute) Chronic liver disease (Chronic) Weight loss, non-intentional (Acute) Macrocytic anemia (Acute) Early satiety (Acute) Folate deficiency (Acute) Hypomagnesemia (Acute) Hypokalemia (Acute) Leg pain (Acute) Cellulitis (Acute) Bilateral leg ulcer (Acute) Medical History Pulmonary nodule COPD (chronic obstructive pulmonary disease) Hypomagnesemia Cachexia Hepatic fibrosis Ulcer of lower extremity Hair loss Vitamin D deficiency Chest pain Gastroesophageal reflux disease Hx pulmonary embolism COPD (chronic obstructive pulmonary disease) Chronic vomiting Malnutrition Frequent falls Bilateral leg pain Pancreatitis Diastolic dysfunction Folate deficiency anemia Ascites Bilateral lower extremity edema Unintentional weight loss Alcohol abuse Tobacco dependence syndrome Tobacco abuse Surgical History punch biopsy, skin of ankle, right lateral (11/24/16) negative for malignancy, sparse inflammation and reactive blood vessels foot surgery (~2000) Ligation of fallopian tube (~1999) ENT/Nasal surgery (~2007) Social History/Home Situation: Lives alone in an apartment building with a ramp to enter. No longer drives. Independent with all indoor ambulation using no assistive device. Sister helps with grocery shopping. Oftentimes ruses [employer] for some of her errands. Equipment Owned/DME: Sister has a walker that patient can use at home, SPC Subjective: Reports 5?6/10 pain in the left hip with movement and weight bearing. Agreeable to get up and sit on chair for supper. Objective: General Observation: Resting in bed. IV access through left UE. Mepilex Ag over surgical incision. TDS to be legs. Cold pack over left hip. Sister Maricel present in room throughout evaluation. Mental Status: Alert and oriented as to person, place, time, and purpose. Able to pay attention, focus, and respond appropriately. Pain: As above Vital Signs: Closely monitored by nursing staff ROM: Right Lower Extremity: Hip flexion WFL. Hip abduction WFL. Knee flexion WFL. Ankle dorsiflexion WFL. Ankle plantarflexion WFL. Left Lower Extremity: Hip flexion lacks the last 25% of AROM due to pain and anxiety. Hip abduction last 25% of AROM due to pain and anxiety. Knee flexion 30 degrees to 90 degrees limited by pain and anxiety. Knee extension -30 degrees limited by pain and anxiety. Ankle dorsiflexion WFL. Ankle plantarflexion WFL. Strength: Right Lower Extremity: Hip flexors 4-/5. Hip abductors 4-/5. Knee flexors 4-/5. Knee extensors 4-/5. Ankle dorsiflexors 4-/5. Ankle plantarflexors 4-/5. Left Lower Extremity: Hip flexors 3-/5. Hip abductors 3-/5. Knee flexors 3-/5. Knee extensors 3-/5. Ankle dorsiflexors 4-/5. Ankle plantarflexors 4-/5. Bed Mobility/Transfers: Moderate cueing provided for use of B hands as needed for support, movement sequence, Ad management, and and posture to reduce fall risk and minimize pain report. Supine to sit moderate assist Sit to stand moderate assist Stand to sit minimal assist Bed to reclining chair minimal assist Gait: Facilitated safe and correct performance of short distance in room ambulation 8 steps while holding onto front wheeled walker requiring minimal assistance of 2 with moderate verbal cueing provided for limb advancement and movement sequence, AD management, hand placement, and posture to reduce fall risk and minimize pain report. Balance: Static Sitting: Good Dynamic Sitting: Fair Static Standing: Fair Dynamic Standing: Poor Special Tests: Mobility Limitations Standardized Measure [facility] AM-PAC 6 clicks Basic Mobility Inpatient Short Form: Raw Score: 16 CMS Score: 54% deficit Informed Consent/Education: Patient was instructed in purpose of PT consult and plan of care. Agreeable to proceed with established PT POC to achieve personal goals. ASSESSMENT: Patient requires assistance of 2 people for all transfers and short distance ambulation to maximize safety and reduce fall risk. May need wheelchair follow for the next walking session. Lives alone and needs to be as independent as she is able to be prior to discharge to reduce fall risk. Patient presents with clinical signs and symptoms consistent with current/admitting diagnoses that have resulted to mobility limitations, gait instability, generalized weakness, and overall ADL decline as demonstrated by the following impairment level findings: 1. Decreased strength to B LE major muscle groups 2. Impaired sitting/standing balance 3. Impaired activity tolerance 4. Limitation of joint range of motion in l hip and knee 5. Pain in L hip due to postoperative status Impairments are contributing to the following functional limitations: 1. Decline in bed mobility skills 2. Decline in transfer skills 3. Difficulty with ambulation without assistive device and physical assistance 4. Increased completion time for mobility ADL performance 5. Increased risk for falls 6. Difficulty with managing steps alone safely Patient is assessed as a 00280 moderate complexity based on the following: History: 63-year-old female with past medical history as indicated above Examination: Demonstrable impairment in strength, balance, and mobility level with underlying impairments and functional limitations as exhibited above as well as deficit score of 47% utilizing the [facility] Mobility Inpatient Short Form Presentation: Evolving Decision Makin moderate complexity Goals: Goals X1 week 1. Supine-Sit independent 2. Sit-Supine independent 3. Sit-Stand independent 4. Stand-Sit independent with FWW 5. Bed-Chair independent with FWW 6. Chair-Bed independent with FWW 7. Independent gait on level surface with use of FWW for at least 150 feet without report of pain nor dyspnea 8. Good static and dynamic standing balance/tolerance Plan of Care/Treatment Plan: 1-2x/day, 7 days/week x 1 week. Plan of care has been reviewed with the [employer] REMOTE SENSING SCIENTIST providing the service under Physical Therapy direction. Initiate Physical Therapy intervention for pain management as needed, strengthening, bed mobility, transfers, gait, stairs, balance training, and use of assistive device. DISCHARGE RECOMMENDATIONS: [] Home with no services [] [] Home with services [specify] [] Home with outpatient PT [] [] SNF for continued rehabilitation [] [] [facility] [] [] SNF versus LTC based on ability to participate and progress [] [X] PT vs SNF based on progress towards goals TREATMENT CODE/TIME: 9716 2 x 26 minutes for 1 unit beginning at 17:00 PM Thank you for the opportunity to participate in the care of this patient. Montse Saunders PT, DPT, CLT [facility] [place], [place]
[2023-05-18] MEDS: ceFAZolin 1 GM/50 ML BAG IVPB (23:01)
[2023-05-18] MEDS: traMADol 50 MG TAB PO (23:05)
[2023-05-19] MEDS: ceFAZolin 1 GM/50 ML BAG IVPB ×2 (05:57→13:39)
[2023-05-19] MEDS: traMADol 50 MG TAB PO ×3 (06:06→19:35)
[2023-05-19 06:39] LABS: HCT 27.8 % (36.0-46.0); MCH 34.2 pg (27.0-33.0); MCHC 32.4 % (32.0-36.0); MCV 106 fL (80-95); MPV 10.2 fL (8.0-11.0); Platelet Count 273 10^3/uL (130-400); RBC 2.63 10^6/uL (3.93-5.22); RDW 14.8 % (11.7-14.6); RDW-SD 57.8 fL
[2023-05-19 06:55] LABS: Anion Gap 13.5 mmol/L (3-11); BUN 14 mg/dL (7-18); CO2 22.5 mmol/L (21.0-32.0); CREATININE 0.9 mg/dL (0.55-1.02); Calcium 9.1 mg/dL (8.5-10.1); Chloride 99 mmol/L (98-107); Estimated GFR 72.28 (mL/min/1.73m2); Glucose 132 mg/dL (74-106); Potassium 4.3 mmol/L (3.5-5.1); Sodium 135 mmol/L (136-145)
[2023-05-19 07:54] VITALS: BP 144/85; PULSE 97; RESP 14; TEMP 36.6; O2SAT 96
[2023-05-19] MEDS: Tiotropium/Olodaterol 10 PUFF INHALER 2 PUFF IH (07:55)
[2023-05-19] MEDS: Thiamine 100 MG TAB PO (08:55)
[2023-05-19] MEDS: Multivitamin TAB 1 TAB PO (08:55)
[2023-05-19] MEDS: Pantoprazole 40 MG TABCR PO (08:55)
[2023-05-19] MEDS: Folic Acid 1 MG TAB PO (08:55)
[2023-05-19] MEDS: Normal Saline Flush 10 ML SYR IVP (08:56)
[2023-05-19] MEDS: MORPHine 2 MG/ML SYR IVP (08:56)
--- NOTE | 2023-05-19 10:40 | PTTR_ITS ---
Date of service: 05/19/23 Time of Service: 08:58 PT Notes Visit Reasons: left hip fx Inpatient Physical Therapy Treatment Note [facility] Date: 05/19/23 PRECAUTIONS: Fall. Standard. WBAT on the left LE with AD. SUBJECTIVE: Patient reports feeling ok, hip pain is tolerable at rest. OBJECTIVE: Sitting up in bedside chair. IV in place RUE. Douglas catheter in place. Agreeable to therapy. ? PAIN: yes, left hip. No number given. Patient very vocal about being in pain. VITALS: monitored by nursing staff? Therapeutic Activities (17376y9): Direct one-on-one instruction in dynamic activities to improve functional performance. ? BED MOBILITY/TRANSFERS? Rolling L/R: Not assessed Supine-sit: Not assessed ? Sit-supine: Not assessed ? Sit-stand x5: CGA, verbal and visual cues for limb placement and task sequencing.? Stand-sit: CGA? Bed-Chair: Not assessed ? Chair-bed: Not assessed Patient ambulates 3-4 steps x3, c/o dizziness with ambulation. BP 164/101. RN Zoraida alerted, advises this clinician to wait an hour and come back, as the dizziness could be a response to the particular pain medication given to the patient. Provided skilled cues and instruction on performance and technique throughout. Gait Training ([id number]): Direct one-on-one instruction and skilled instruction in: [x] employing an assistive device [] modified weight-bearing status [x] movement sequencing [x] turning and movement with proper form [x] Provided verbal cues for equipment management and technique [x] Provided instruction in gait pattern [x] Patient education regarding pacing and breathing techniques to maximize activity tolerance? GAIT? Assistive Device: fww? Weight bearing: WBAT LLE with AD Assist: CGA, wheelchair follow, assist with IV pole ? Distance:? 8 feet, approximately 15 steps ? Deviation: Patient demonstrates step-to gait pattern with significant vocalizations. Education provided regarding tension in the breathing muscles increasing fear and pain, consciously relaxing breathing muscles leading to reduction in fear and pain. Instructed patient to breath in through nose, out like a kazoo. Patient reports decreased pain with this technique. Patient also reports feeling suddenly weak at the end of 8 feet, declines to go further even after a rest. ? Therapeutic Exercises (17780s8): Direct one-on-one instruction in therapeutic exercises to develop strength, endurance, range of motion and flexibility. ? Exercises: * LAQ x10 * hip ab/adduction x10 * seated ankle dorsiflexion/plantarflexion x10 Provided skilled instruction in proper exercise performance Provided skilled manual cues to facilitate proper muscle recruitment and/or form. ASSESSMENT:? Patient becomes dizzy, anxious during treatment session. Per GEETA Conway's advise, patient returns to chair, will check back to resume therapy in about an hour. AFTERNOON: No dizziness, however patient does report sudden weakness which resolves for transfer back to bedside chair. PLAN: Continue progressing patient's functional mobility training per plan of care to patient tolerance. Patient will benefit from a subacute rehab placement to further improve outcomes. TREATMENT CODE/TIME: 31 minutes beginning at 8:58 and 28 minutes beginning at 13:53 (plus 30 minutes with DPT Montse Saunders) for a total of 89 minutes today.
--- NOTE | 2023-05-19 10:40 | PTTR_ITS ---
PT Notes Visit Reasons: left hip fx Physical Therapy Inpatient Treatment Note Date: 05/19/2023 Precautions: Fall. Standard. WBAT on the left LE with AD. Subjective: Reports 3-4/10 pain in the left hip with movement and weight bearing. Agreeable to trying out walking this morning. Objective: General Observation: Resting on chair. Mepilex Ag over surgical incision. TDS to be legs. Cold pack over left hip. Mental Status: Alert and oriented as to person, place, time, and purpose. Able to pay attention, focus, and respond appropriately. Pain: As above Vital Signs: Closely monitored by nursing staff Bed Mobility/Transfers: Moderate cueing provided for use of B hands as needed for support, movement sequence, Ad management, and and posture to reduce fall risk and minimize pain report. Sit to stand moderate assist Stand to sit minimal assist Bed to reclining chair minimal assist Gait: Facilitated safe and correct performance of short distance in room ambulation 3- 4 steps x 5 using FWW with minimal assist of PT, needing frequent seated rests due to heightened response to pain despute b=verbalization of 3/10 on VAS. Moderate verbal cueing provided for limb advancement and movement sequence, AD management, hand placement, and posture to reduce fall risk and minimize pain report. Balance: Static Sitting: Good Dynamic Sitting: Fair Static Standing: Fair Dynamic Standing: Poor ASSESSMENT: Patient's anticipation of pain limit her ability to progress. She requires constant encouragement to weight bear on the L LE and may need an extended time to recover based on her acute care stay at the hospital. She lives alone and needs to be as independent as she is able to be prior to discharge to reduce fall risk. Plan of Care/Treatment Plan: 1-2x/day, 7 days/week x 1 week. Plan of care has been reviewed with the QUALITY ENG providing the service under Physical Therapy direction. Initiate Physical Therapy intervention for pain management as needed, strengthening, bed mobility, transfers, gait, stairs, balance training, and use of assistive device. DISCHARGE RECOMMENDATIONS: [] Home with no services [] [] Home with services [specify] [] Home with outpatient PT [] [] SNF for continued rehabilitation [] [] [facility] [] [] SNF versus LTC based on ability to participate and progress [] [X] PT vs SNF based on progress towards goals TREATMENT CODE/TIME: 74578 x 30 minutes for 2 unit beginning at 10:40 AM
--- NOTE | 2023-05-19 13:00 | CMPROGNOTE_ITS ---
Date of service: 05/19/23 Time of Service: 13:00 Care Management Progress Note Progress Note Text Progress Note Text: S/O: Fannie remains inpatient, per PT report she struggled with dizziness during consult today, CM relayed information to Hospitalist. Recommendation for SNF at this time, referrals sent to local facilities for review. Anticipate BC/BS insurance may require prior authorization; awaiting review. CM continues to follow. A: 63 year old female admitted to [facility] 05/18/23 for Left Hip Fx P: At this time, anticipate SNF placement upon discharge. Referrals sent to [facility] for review. CM continues to follow.
--- NOTE | 2023-05-19 13:07 | W.PM.PROGNOT ---
Date of Service Date of service: 05/19/23 Time of Service: 14:15 Assessment and Plan Assessment and plan (1) Closed intertrochanteric fracture of left hip: Status: Acute Assessment and plan: Fannie is a 63-year-old female who is status post intramedullary fixation of the left intertrochanteric hip fracture. He is doing well. No acute complications. She has been able to mobilize. The surgery went well without any issues and her bone was actually of quite good quality. I recommend continued physical therapy with weightbearing as tolerated with assistive devices. May use anticoagulation at this point. Discharge planning per physical therapy. Qualifiers: Encounter type: initial encounter Fracture alignment: displaced Qualified Code(s): S72.142A - Displaced intertrochanteric fracture of left femur, initial encounter for closed fracture Subjective Subjective Interval history since last seen: Fannie is a 63-year-old female who is status post interventional nail fixation of a left comminuted intertrochanteric hip fracture. She is doing well. She has been able to ambulate with physical therapy. She is sitting in a chair. She does have some pain with ambulation but finds it is manageable. She denies numbness or tingling. She denies issues with the left foot. No fevers or chills. She had some mild lightheadedness earlier today which has resolved on its own. Exam Narrative Exam Narrative: Sitting up in the chair. No acute distress. Alert and oriented x 3. Evaluation of the left lower extremity shows some mild swelling about the left thigh. Dressings are clean dry and intact. Thigh soft and compressible. Minimal pain with hip internal and external rotation and flexion. Intact ankle dorsiflexion, plantarflexion, EHL, FHL. Palpable DP and PT pulse. Objective Last Vital Signs Temp 36.6 C 05/19/23 07:54 Pulse 97 H 05/19/23 07:54 Resp 14 05/19/23 07:54 BP 144/85 H 05/19/23 07:54 Pulse Ox 96 05/19/23 07:54 Laboratory Results - last 24 hr 05/19/23 05:38 WBC 10.80 RBC 2.63 L Hgb 9.0 L Hct 27.8 L MCV 106 H MCH 34.2 H MCHC 32.4 RDW 14.8 H Plt Count 273 MPV 10.2 Sodium 135 L Potassium 4.3 Chloride 99 Carbon Dioxide 22.5 Anion Gap 13.5 H BUN 14 Creatinine 0.9 Est GFR (CKD-EPI 2020) 72.28 Glucose 132 H Calcium 9.1 Time Spent with Patient Time Spent with Patient: <25 minutes Time was spent: preparing to see the patient(eg.review tests), obtaining and/or reviewing separately otained hiistory, indepentently interpreting results and counseling the patient
--- NOTE | 2023-05-19 13:45 | W.PM.PROGNOT ---
Date of Service Date of service: 05/19/23 Time of Service: 13:45 Assessment and Plan Assessment and plan (1) Closed intertrochanteric fracture of left hip: Status: Acute Assessment and plan: POD 1 continue routine postoperative care Qualifiers: Encounter type: initial encounter Fracture alignment: displaced Qualified Code(s): S72.142A - Displaced intertrochanteric fracture of left femur, initial encounter for closed fracture (2) DVT prophylaxis: Status: Acute Assessment and plan: enoxaparin (3) Smoker: Status: Acute (4) Discharge planning issues: Status: Acute Assessment and plan: anticipate discharge to skilled rehabilitation prior to returning home discussed with DR Haas Subjective Subjective Patient reports: no new complaints, feels better, pain is less, tolerating liquids well, tolerating a regular diet and afebrile; denies shortness of breath Exam Const General: cooperative Nutritional Appearance: average body habitus Orientation: alert, awake and oriented x3 HENMT Head: normal to inspection Ears: external ears normal Mouth: moist mucous membranes Eyes Pupils: PERRL EOM: EOM intact bilaterally Neck Neck: full ROM and no tracheal deviation Chest Chest: normal inspection of the chest Resp Effort & Inspection: normal respiratory effort Auscultation: clear to auscultation bilaterally Cardio Rate: regular rate Rhythm: regular rhythm GI Inspection: normal to inspection Palpation: soft, no guarding and nontender Back/Spine/Pelvis Thoracic/Lumbar Spine: thoracic and lumbar spine normal to inspection Skin Lesions: other (surgical dressing x2 CDI, no surrounding erythema) Rashes: no rashes Neuro General: patient alert, patient awake and patient oriented x3 Extrem General: normal to inspection Objective Last Vital Signs Temp 36.6 C 05/19/23 07:54 Pulse 97 H 05/19/23 07:54 Resp 14 05/19/23 07:54 BP 144/85 H 05/19/23 07:54 Pulse Ox 96 05/19/23 07:54 Laboratory Results - last 24 hr 05/19/23 05:38 WBC 10.80 RBC 2.63 L Hgb 9.0 L Hct 27.8 L MCV 106 H MCH 34.2 H MCHC 32.4 RDW 14.8 H Plt Count 273 MPV 10.2 Sodium 135 L Potassium 4.3 Chloride 99 Carbon Dioxide 22.5 Anion Gap 13.5 H BUN 14 Creatinine 0.9 Est GFR (CKD-EPI 2020) 72.28 Glucose 132 H Calcium 9.1 Time Spent with Patient Time Spent with Patient: 35-49 minutes Time was spent: preparing to see the patient(eg.review tests), ordering medications,tests, procedures, indepentently interpreting results, counseling the patient and care coordination
[2023-05-19 14:25] VITALS: BP 158/89; PULSE 100; RESP 16; TEMP 37.3; O2SAT 98
--- NOTE | 2023-05-19 14:58 | CHAPLAIN ---
Fannie has surgery on her left hip yesterday after a fall at home. She said she's been up walking today with PT, although it was a painful. She had a visitor in the room with her. I will continue to visit.
[2023-05-19 19:48] VITALS: BP 128/79; PULSE 95; RESP 18; TEMP 36.9; O2SAT 98
[2023-05-20 07:42] VITALS: BP 132/79; PULSE 101; RESP 19; TEMP 37.2; O2SAT 93
[2023-05-20 07:50] VITALS: O2SAT 93
[2023-05-20] MEDS: Tiotropium/Olodaterol 10 PUFF INHALER 2 PUFF IH (08:05)
[2023-05-20] MEDS: Thiamine 100 MG TAB PO (08:06)
[2023-05-20] MEDS: Multivitamin TAB 1 TAB PO (08:06)
[2023-05-20] MEDS: Pantoprazole 40 MG TABCR PO (08:06)
[2023-05-20] MEDS: Folic Acid 1 MG TAB PO (08:06)
[2023-05-20] MEDS: traMADol 50 MG TAB PO (08:07)
--- NOTE | 2023-05-20 08:49 | W.PM.PROGNOT ---
Date of Service Date of service: 05/20/23 Time of Service: 10:59 Assessment and Plan Assessment and plan (1) Closed intertrochanteric fracture of left hip: Status: Acute Assessment and plan: Ms. Gallego is a 63-year-old female who is post op day 2 status post IM nail fixation of a left comminuted intertrochanteric hip fracture on 05/18/23. She has continued to do well without complications. She has been completing recommended PT exercises/ambulation which are going well from patient's perspective. Reviewed yesterday's PT note which reports feeling dizzy following session - she reports this quickly resolved. She will continue to weightbear as tolerated with assistive devices. Case was discussed with hospitalist, Deanna Weller NP - patient had not been receiving pain medication when reporting increased discomfort therefore she recommended scheduled Tylenol. At time of visit patient is doing very well and denies any significant discomfort. Additionally discussed anticoagulation - she was started on enoxaparin but will likely transition to ASA when discharged. Patient will continue to stay inpatient until discharged to skilled rehabilitation facility prior to returning to home - likely later today to [facility] as per hospitalist/based on PT recommendations Will plan to see in orthopedic office in 2 weeks Qualifiers: Encounter type: initial encounter Fracture alignment: displaced Qualified Code(s): S72.142A - Displaced intertrochanteric fracture of left femur, initial encounter for closed fracture Subjective Subjective Interval history since last seen: Ms. Gallego is a 63-year-old female who is post op day 2 status post IM nail fixation of a left comminuted intertrochanteric hip fracture on 05/18/23. She reports doing well since yesterday. She has been ambulating with PT. Reports mild discomfort about her left lower extremity that was worse yesterday but feels improved this morning. Denies numbness or tingling. Denies fevers, chills or discharge. Exam Const General: cooperative, healthy appearing, comfortable and no acute distress Resp Effort & Inspection: normal respiratory effort and able to speak in complete sentences Extrem Other: Left lower extremity examination: Dressings are intact - clean and dry. There is mild edema and ecchymosis noted along length of the lower extremity. Thigh is soft and easily compressible. She is able to tolerate gentle hip ROM without discomfort. Patient is able to demonstrate gentle ankle dorsiflexion plantarflexion without discomfort. She is able to demonstrate gentle toe extension and flexion without discomfort. Palpable DP pulse. Objective Last Vital Signs Temp 99.0 F 05/20/23 07:42 Pulse 101 H 05/20/23 07:42 Resp 19 05/20/23 07:42 BP 132/79 05/20/23 07:42 Pulse Ox 93 05/20/23 07:50 Time Spent with Patient Time Spent with Patient: <25 minutes Time was spent: preparing to see the patient(eg.review tests), obtaining and/or reviewing separately otained hiistory, referring, communicating with other health director of primary care, counseling the patient and care coordination
--- NOTE | 2023-05-20 09:14 | W.PM.PROGNOT ---
Date of Service Date of service: 05/20/23 Time of Service: 09:14 Assessment and Plan Assessment and plan (1) Closed intertrochanteric fracture of left hip: Status: Acute Assessment and plan: POD 2 continue routine postoperative care schedule pain medication, incentive spirometry bowel management discontinue hay Qualifiers: Encounter type: initial encounter Fracture alignment: displaced Qualified Code(s): S72.142A - Displaced intertrochanteric fracture of left femur, initial encounter for closed fracture (2) DVT prophylaxis: Status: Acute Assessment and plan: enoxaparin (3) Alcohol abuse: Status: Chronic Assessment and plan: no signs of withdrawal continue thiamine, folic acid and mvi monitor (4) Smoker: Status: Acute (5) Discharge planning issues: Status: Acute Assessment and plan: anticipate discharge to skilled rehabilitation prior to returning home discussed with DR Haas Subjective Subjective Patient reports: still having pain, tolerating liquids well, tolerating a regular diet, no bowel movement and afebrile; denies shortness of breath Interval history since last seen: patient with c/o pain in hip when ambulating, otherwise feels well. no signs of alcohol withdrawal Exam Const General: cooperative Nutritional Appearance: average body habitus Orientation: alert, awake and oriented x3 HENMT Head: normal to inspection Ears: external ears normal Mouth: moist mucous membranes Eyes Pupils: PERRL EOM: EOM intact bilaterally Neck Neck: full ROM and no tracheal deviation Chest Chest: normal inspection of the chest Resp Effort & Inspection: normal respiratory effort Auscultation: clear to auscultation bilaterally Cardio Rate: regular rate Rhythm: regular rhythm GI Inspection: normal to inspection Palpation: soft, no guarding and nontender Back/Spine/Pelvis Thoracic/Lumbar Spine: thoracic and lumbar spine normal to inspection Skin Lesions: other (surgical dressing x2 CDI, no surrounding erythema) Rashes: no rashes Neuro General: patient alert, patient awake and patient oriented x3 Extrem General: normal to inspection Objective Last Vital Signs Temp 37.2 C 05/20/23 07:42 Pulse 101 H 05/20/23 07:42 Resp 19 05/20/23 07:42 BP 132/79 05/20/23 07:42 Pulse Ox 93 05/20/23 07:50
[2023-05-20] MEDS: Docusate Sodium 100 MG CAP PO (09:48)
[2023-05-20] MEDS: Enoxaparin 40 MG/0.4 ML SYR SC (09:48)
[2023-05-20] MEDS: Polyethylene Glycol 3350 17 GM PACKET PO (09:48)
[2023-05-20] MEDS: Ketorolac 15 MG/ML VIAL IVP (09:48)
--- NOTE | 2023-05-20 10:56 | W.PM.DS.N ---
Date of service: 05/20/23 Time of Service: 10:56 DS: Diagnosis Discharge Diagnosis (1) Closed intertrochanteric fracture of left hip: Status: Acute Discharge Plan Disposition Patient Disposition: Nursing Home Facility(SNF) Condition: Stable Discharge Details Reason For Visit: left hip fx Admit Date/Time: 05/18/23 04:00 Admit Provider: Nikunj Downey Attending Provider: Nikunj Downey Primary Care Provider: MARIANO KEARNEY Hospital Course Hospital Course: This is a 63-year-old female patient who presented to the emergency department after having a mechanical fall at home. Her workup in the emergency department did show a left hip fracture. There was no other injuries noted. On evaluation she was also found to have suspicion of CHF on x-ray but she did not have any complaints of shortness of breath, oxygen requirements or other symptoms of decompensated diastolic heart failure. Does have a history of diastolic heart failure but EKG was nonischemic and again she had no symptoms of heart failure. Outpatient team could consider outpatient echocardiogram but postoperatively she has done well with no need for diuresis or evidence of heart failure. Her blood pressure medication was placed on hold at admission as she states she was not taking it as an outpatient. blood pressures have remained stable postoperatively. Her blood pressure should just continue to be monitored routinely outpatient with medication adjustment if needed. She was also found to be anemic but no source of active bleeding identified. She does take a PPI which should be continued. Her hemoglobin remained stable postoperatively. This should be monitored outpatient. she was monitored for alcohol withdrawal as she reports daily alcohol intake but had no symptoms of alcohol withdrawal. She denies any previous history of alcohol withdrawal. She also does smoke tobacco and has not needed nicotine replacement while hospitalized should she require it she prefers the Nicotrol inhaler but this was not available. Postoperatively pain was managed with Tylenol and Toradol. She did have tramadol available if needed for severe breakthrough pain. She has been safely re-ambulated with physical therapy. She has been eating and drinking, has not had a bowel movement but passing flatus and does not feel constipated. We did start bowel regimen which should be closely monitored outpatient. Douglas has been discontinued and she is voiding well. She is stable for discharge to rehabilitation and will follow-up outpatient with orthopedics. She should stay on aspirin 81 mg twice daily for 30 days for DVT prophylaxis she should also keep her surgical dressing for 1 week or can stay in place until her orthopedic follow-up appointment in 2 weeks. Discharge is discussed with Dr. Squires Monroe Meds and New Rx's Prescriptions: New polyethylene glycol 3350 17 gram Powder In Packet 17 g PO DAILY Qty: 0 0RF acetaminophen 500 mg Tablet 650 mg PO QID Qty: 0 0RF docusate sodium [Colace] 100 mg Capsule 100 mg PO BID Qty: 0 0RF aspirin 81 mg tablet,delayed release (DR/EC) 81 mg PO BID Qty: 60 0RF Rx Instructions: for one month for DVT prophylaxis ibuprofen 600 mg tablet 600 mg PO TID PRNQty: 30 0RF tramadol 50 mg Tablet 50 mg PO Q4H PRN PRNQty: 10 0RF Continued ipratropium-albuterol 0.5 mg-3 mg(2.5 mg base)/3 mL solution for nebulization 3 ml inhalation Q4H PRN (Reason: wheezing) Qty: 540 8RF albuterol sulfate 90 mcg/actuation HFA aerosol inhaler 2 puff inhalation Q6H PRN (Reason: shortness of breath or wheezing) Qty: 8.5 12RF thiamine HCl (vitamin B1) 250 mg tablet 250 mg PO DAILY Stiolto Respimat 2.5-2.5 mcg/actuation mist 2 puff inhalation Q24H Qty: 4 12RF multivitamin [Multiple Vitamins] Tablet 1 tab PO DAILY Qty: 30 0RF magnesium 250 mg tablet 250 mg PO DAILY Qty: 20 0RF omeprazole 40 mg capsule,delayed release(DR/EC) 40 mg PO DAILY Patient Comments: TAKE ONE CAPSULE BY MOUTH EVERY DAY lorazepam [Ativan] 0.5 mg tablet 0.25 mg PO BID PRN (Reason: anxiety) Qty: 4 0RF Changed gabapentin 300 mg Capsule 300 mg PO HS Qty: 0 0RF No Action lisinopril 20 mg tablet 20 mg PO DAILY sucralfate 1 gram tablet 1 g PO BID potassium See Rx Instructions .ROUTE DIRECTED Rx Instructions: as directed; Discharge Instructions Instructions: Hip Fracture (ED) Additional Instructions: use heat or ice to affected hip for comfort. Progressive weight bearing as tolerated, walker for gait safety and stability. aspirin 81 mg twice daily for one month for 30 days for DVT prophylaxis Stand Alone Forms: Nursing Discharge Form Referrals: CAIO,MARIANO B, DIRECTOR OF RESTAURANT [Primary Care Provider] - 05/26/23 2:30 pm Activity:: Activity as Tolerated Equipment/Supplies:: No Equipment Needed Diet:: As Tolerated Discharge Orders Discharge Orders: Discharge Order (Routine); Ordered 05/20/23 Ordered By: Deanna Weller DS: Summary Time Spent with Patient providing and/or coordinating discharge services: Greater than 30 minutes Status at Discharge Functional status at discharge: uses cane/walker Overall status at discharge: patient is not back to baseline Mental Status: mental status grossly normal Speech and Movement: speech and movement normal Mood: congruent mood Affect: normal affect Quality:SDOH Health Related Social Needs: No Data to Display Exam Const General: cooperative Nutritional Appearance: average body habitus Orientation: alert, awake and oriented x3 HENMT Head: normal to inspection Ears: external ears normal Mouth: moist mucous membranes Eyes Pupils: PERRL EOM: EOM intact bilaterally Neck Neck: full ROM and no tracheal deviation Chest Chest: normal inspection of the chest Resp Effort & Inspection: normal respiratory effort Auscultation: clear to auscultation bilaterally Cardio Rate: regular rate Rhythm: regular rhythm GI Inspection: normal to inspection Palpation: soft, no guarding and nontender Back/Spine/Pelvis Thoracic/Lumbar Spine: thoracic and lumbar spine normal to inspection Skin Lesions: other (surgical dressing x2 CDI, no surrounding erythema) Rashes: no rashes Neuro General: patient alert, patient awake and patient oriented x3 Extrem General: normal to inspection Psych Mental Status: mental status grossly normal Speech and Movement: speech and movement normal Mood: congruent mood Affect: normal affect DS: Data Vitals/I&O Vitals and I&O: Vital Signs Temperature 37.2 C 05/20/23 07:42 Temperature Source Tympanic 05/20/23 07:42 Pulse 101 H 05/20/23 07:42 Pulse Rhythm Regular 05/20/23 07:50 Respiratory Rate 19 05/20/23 07:42 Respiratory Effort Normal 05/20/23 07:50 Respiratory Depth Shallow 05/20/23 07:50 Respiratory Pattern Normal 05/20/23 07:50 Blood Pressure 132/79 05/20/23 07:42 Blood Pressure Position Supine 05/18/23 02:57 Pulse Oximetry 93 05/20/23 07:50 Respiratory End-tidal CO2 30 05/18/23 15:53 Oxygen Delivery Method Room Air 05/20/23 07:50 Oxygen Flow Rate 0 05/20/23 07:50 Pain Level 6 05/20/23 09:48 Intake & Output 05/19/23 05/19/23 05/20/23 11:59 23:59 11:59 Intake Total 50 / 825 775 / 825 50 / 50 Output Total 150 / 500 350 / 500 600 / 600 Balance -100 / 325 425 / 325 -550 / -550 Weight 53.2 kg Intake: IV 50 / 100 50 / 100 50 / 50 Oral 725 / 725 Output: Urine 150 / 500 350 / 500 600 / 600 Other: Urine Color Straw Straw Urine Appearance Clear Clear Clear PFSH All Active Problems (Updated 05/18/23 @ 08:18 by Nikunj Downey) Closed intertrochanteric fracture of left hip (Acute) s/p IMN fixation (05/18/23) Discharge planning issues (Acute) Smoker (Acute) DVT prophylaxis (Acute) Closed fracture of left hip (Acute) Fall (Acute) Alcohol intoxication (Acute) Anxiety (Chronic) Pulmonary congestion (Acute) Hypomagnesemia (Acute) Bronchitis (Acute) Cavitary lesion of lung (Acute) H/O ETOH abuse (Acute) Tobacco use disorder (Acute 01/28/14) Pleural effusion (Acute) Hypomagnesemia (Acute) Fluid overload (Acute) Chest pain due to GERD (Acute) Chest wall muscle strain (Acute) Hypokalemia (Acute) COPD exacerbation (Acute) Emphysema lung (Acute) Nicotine dependence, cigarettes, uncomplicated (Acute) Atherosclerosis (Acute) Gastric wall thickening (Acute) Stenosis of right internal carotid artery (Acute) Mass of upper lobe of right lung (Acute) Alcohol abuse (Chronic) Dehydration (Acute) Diarrhea (Acute) Hypomagnesemia (Chronic) B12 deficiency (Acute) Ascites (Acute) Chronic liver disease (Chronic) Weight loss, non-intentional (Acute) Macrocytic anemia (Acute) Early satiety (Acute) Folate deficiency (Acute) Hypomagnesemia (Acute) Hypokalemia (Acute) Leg pain (Acute) Cellulitis (Acute) Bilateral leg ulcer (Acute) Medical History Pulmonary nodule COPD (chronic obstructive pulmonary disease) Hypomagnesemia Cachexia Hepatic fibrosis Ulcer of lower extremity Hair loss Vitamin D deficiency Chest pain Gastroesophageal reflux disease Hx pulmonary embolism COPD (chronic obstructive pulmonary disease) Chronic vomiting Malnutrition Frequent falls Bilateral leg pain Pancreatitis Diastolic dysfunction Folate deficiency anemia Ascites Bilateral lower extremity edema Unintentional weight loss Alcohol abuse Tobacco dependence syndrome Tobacco abuse Surgical History punch biopsy, skin of ankle, right lateral (11/24/16) negative for malignancy, sparse inflammation and reactive blood vessels foot surgery (~2000) Ligation of fallopian tube (~1999) ENT/Nasal surgery (~2007) Family History Father Lung disease Cancer Lung Social History Smoking/Tobacco Use Status: Former Tobacco Use Tobacco: How many years used: 45 Quit status: considering quitting Second Hand Exposure: Yes Smoking risk assessment performed?: Yes Alcohol Intake: current Alcohol Intake frequency: a few times a week Alcohol type: wine Counseling given: Yes Counseling provided: provider counseling Drug use: Rarely Substance use type: marijuana Housing: apartment Current gender identity: female Do you feel safe at home: Yes Do you feel safe in your relationship?: Yes Additional Social history: Lives alone in studio in [facility], 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 Grew up in [facility] [place] [facility], sisters in area. History History Para 0 Hx # Term Pregnancies Multiple births Hx # Pregnancies Ectopic pregnancies AB induced Hx Number of Living Children AB spontaneous Time Spent with Patient Time Spent with Patient: 45-69 minutes Time was spent: preparing to see the patient(eg.review tests), obtaining and/or reviewing separately otained hiistory, ordering medications,tests, procedures, indepentently interpreting results, counseling the patient and care coordination
--- NOTE | 2023-05-20 11:15 | CMDISCH_ITS ---
Date of service: 05/20/23 Time of Service: 11:15 LACE Index Scoring Tool Questions: Length of Stay (in days): 2 Was the patient admitted via the E.D.?: Yes Comorbidities: Chronic Pulmonary Disease E.D. Visits: 7 Answers: Total Score: 11 Risk of Readmission: High Risk Care Management Discharge Plan Reason for Hospitalization: Left Hip Fx Discharge Plan: Fannie will discharge to [facility] for continued short term rehab prior to returning home. She will transport via [facility], coordinated by JASONA. Patient/Family Education Needs: Review discharge instructions, patient choice of SNF, transport considerations. Services Needed at Discharge: Longterm Facility and Transportation SDOH Health Related Social Needs: No Data to Display
[2023-05-20] MEDS: Acetaminophen 325 MG TAB 650 MG PO (12:18)
== END 2023-05-20 13:25 | disposition skilled nursing facility (03) | DRG 482 ==
LOC: ER 05:10 → MS 05:15
PROVIDERS: Family Medicine; Student in an Organized Health Care Education/Training Program; Admitting Provider Family Medicine; Emergency Provider Emergency Medicine; PCP Nurse Practitioner Family; Visit Provider Family Medicine
PROC: 0QS706Z Reposition Left Upper Femur with Intramedullary Internal Fixation Device, Open Approach (ICD-10-PCS; CPT 27245; principal; 2023-05-18 14:00)
DX: S72.142A Displaced intertrochanteric fracture of left femur, initial encounter for closed fracture (principal); D64.9 Anemia, unspecified; F10.929 Alcohol use, unspecified with intoxication, unspecified; I51.89 Other ill-defined heart diseases; J44.9 Chronic obstructive pulmonary disease, unspecified; F17.210 Nicotine dependence, cigarettes, uncomplicated; K70.10 Alcoholic hepatitis without ascites; F41.9 Anxiety disorder, unspecified; K21.9 Gastro-esophageal reflux disease without esophagitis; E87.6 Hypokalemia; I65.21 Occlusion and stenosis of right carotid artery; E86.0 Dehydration; E53.8 Deficiency of other specified B group vitamins; D53.8 Other specified nutritional anemias; R91.1 Solitary pulmonary nodule; E55.9 Vitamin D deficiency, unspecified; Z86.711 Personal history of pulmonary embolism; R29.6 Repeated falls; I45.10 Unspecified right bundle-branch block; W01.0XXA Fall on same level from slipping, tripping and stumbling without subsequent striking against object, initial encounter
CPT/HCPCS: 27245; 00123; 36415; 51702; 80048; 80053; 82306; 85027; 86850; 86900; 86901; 93005; 94640; 96374; 96375; 97116; 97162; 97530; 99285; J1650; 71045; 73501; 73502; 80320; 81003; 83735; 84484; 85014; 85018; 85610; 93010; 94664; 99233; 99239; J0131; J0690; J1100; J1885; J2001; J2270; J2405; J2470; J2704; J3010; J3411

== ENCOUNTER 2023-05-30 17:53 | Outpatient (REF) | payer BC, SELFPAY ==
[2023-05-30 18:59] LABS: Abs Immature Grans 0.03 10^3/uL (0.0-0.06); Absolute Basophil Count 0.09 10^3/uL (0.0-0.2); Absolute Eosinophil Count 0.05 10^3/uL (0.0-0.7); Absolute Lymphocyte Count 1.22 10^3/uL (1.2-3.4); Absolute Monocyte Count 0.57 10^3/uL (0.1-0.8); Absolute Neutrophil Count 4.57 10^3/uL (1.2-6.7); Basophils % 1.4; Eosinophils % 0.8; HCT 29.3 % (36.0-46.0); HGB 9.2 g/dL (11.2-15.7); Immature Grans % 0.5; Lymphocytes % 18.7; MCH 33.5 pg (27.0-33.0); MCHC 31.4 % (32.0-36.0); MCV 107 fL (80-95); MPV 9.9 fL (8.0-11.0); Monocytes % 8.7; Neutrophils % 69.9; RBC 2.75 10^6/uL (3.93-5.22); RDW 14.5 % (11.7-14.6); RDW-SD 56.4 fL; WBC 6.53 10^3/uL (4.4-10.8)
[2023-05-30 19:12] LABS: Diff Comment RBC Morph Reviewed
[2023-05-30 19:13] LABS: Hypochromasia 1+; Macrocytosis 1+; Platelet Count 657 10^3/uL (130-400); Polychromasia Present
[2023-05-30 19:23] LABS: Iron 42 ug/dL (50-170); Total Iron Binding Capacity 269 ug/dL (250-450); Transferrin Sat 16 % (15-50)
[2023-05-30 19:46] LABS: Vitamin D 25 Total 81.7 ng/mL (30-100)
[2023-05-30 19:56] LABS: ALT 24 U/L (14-59); AST 51 U/L (15-37); Alkaline Phosphatase 124 U/L (46-116); BUN 10 mg/dL (7-18); Bilirubin, Total 0.5 mg/dL (0.2-1.0); CREATININE 0.7 mg/dL (0.55-1.02); Calcium 9.7 mg/dL (8.5-10.1); Chloride 94 mmol/L (98-107); Estimated GFR 97.72 (mL/min/1.73m2); Glucose 79 mg/dL (74-106); Magnesium 1.6 mg/dL (1.8-2.4); NT-proBNP 1697 pg/mL (<300); Potassium 5.1 mmol/L (3.5-5.1); Sodium 130 mmol/L (136-145); TSH (W/Ref FT4) 2.63 uIU/mL (0.36-3.74); Total Protein 6.3 g/dL (6.4-8.2)
[2023-05-30 20:04] LABS: Hemoglobin A1C 4.7 % (<5.7)
[2023-05-30 21:09] LABS: Ferritin 623 ng/mL (8-252); Vitamin B12 743 pg/mL (193-986)
--- NOTE | 2023-06-05 22:30 | W.ED.FU ---
Date of service: 06/05/23 Time of Service: 22:30 Follow Up Plan: I was contacted by EMS for refusal/medical control. Patient had taken a fall today. Fire services were called. Upon their arrival patient was ANO x 4 and in no acute distress. She did have a heart rate of 111, but was refusing transport and stated that she just wanted help getting up. Blood sugar per EMS is normal, blood pressure per EMS was 130/86. Oxygenation was within normal limits. Patient otherwise had no complaints and was refusing to be transported to the hospital. I made it clear to the patient and EMS that would be happy to see the patient at any time if she changes her mind or opinion. Patient has refused transfer understanding this.
== END 2023-05-30 17:54 | disposition home or self-care (01) ==
LOC: LBN 17:53
PROVIDERS: PCP Nurse Practitioner Family; Visit Provider Nurse Practitioner Gerontology
DX: G89.4 Chronic pain syndrome (principal); R73.09 Other abnormal glucose; E83.42 Hypomagnesemia; R53.82 Chronic fatigue, unspecified
CPT/HCPCS: 80053; 82306; 82607; 82728; 83036; 83540; 83550; 83735; 83880; 84443; 85025

== ENCOUNTER 2023-06-06 14:07 | Outpatient (CLI) | payer BC, SELFPAY ==
--- NOTE | 2023-06-06 11:00 | DI.RAD_ITS ---
Exam(s) XR HIP LT AP LAT ONLY EXAM: XR HIP LT AP LAT ONLY CLINICAL HISTORY: S/P IM NAIL. TECHNIQUE: 2D digital imaging was performed. Two views. COMPARISON: CR,XR XR HIP LT COMPLETE AP PELVIS from 05/18/2023 XA XR HIP LT IN OR from 05/18/2023 FINDINGS: BONES: There has been no change in fracture or hardware alignment. No bony destructive lesion is see n. JOINTS: No dislocation present. SOFT TISSUE: Vascular calcifications. IMPRESSION: Stable fracture and hardware alignment. DATA REPOSITORY: RADIATION DOSE DELIVERED:
== END 2023-06-06 14:08 | disposition home or self-care (01) ==
LOC: DIORS 14:07
PROVIDERS: PCP Nurse Practitioner Family; Visit Provider Student in an Organized Health Care Education/Training Program
DX: S72.142D Displaced intertrochanteric fracture of left femur, subsequent encounter for closed fracture with routine healing (principal); X58.XXXD Exposure to other specified factors, subsequent encounter
CPT/HCPCS: 73502

== ENCOUNTER 2023-06-12 10:26 | Emergency (ER) | payer BC, SELFPAY ==
[2023-06-12 10:25] VITALS: BP 107/87; PULSE 99; RESP 18; TEMP 36.6; O2SAT 99
--- NOTE | 2023-06-12 10:30 | DI.RAD_ITS ---
Exam(s) XR HIP LT COMPLETE AP PELVIS EXAM: XR HIP LT COMPLETE AP PELVIS CLINICAL HISTORY: fall off toilet, recent surgery. TECHNIQUE: 2D digital imaging was performed. Three views. COMPARISON: CT CT CHEST/ABD/PEL W from 08/16/2022 CR XR HIP LT AP LAT ONLY from 06/06/2023 FINDINGS: BONES: No acute fracture is present. Hardware again noted in proximal femur. No change in intertroc hanteric fracture. No change in position of lesser trochanter fracture fragment. No bony destructiv e lesion is seen. JOINTS: No dislocation present. Mild degenerative changes. SOFT TISSUE: Vascular calcifications. IMPRESSION: Stable appearance of intertrochanteric fracture with hardware in place. No new fractures. DATA REPOSITORY: RADIATION DOSE DELIVERED:
--- NOTE | 2023-06-12 10:38 | ED.GENADUL_ITS ---
HPI General Date/Time Provider Initiated Documentation: 06/12/23 10:35 . Limitations to Documentation: no limitations . Information obtained by: patient, EMS, RN notes reviewed and old records reviewed . History of Present Illness 63 year old F presents to the emergency department with the chief complaint of left sided hip pain, described as severe and similar to prior episodes, Quality is described as stabbing, and is localized to the left and lower extremity. Patient reports no radiation. Patient started experiencing this minute(s) and it has been constant. Immobilization improves symptom(s), Movement worsens symptoms . Patient notes no other symptoms.. Patient did receive the following treatments prior to arrival, none Related Data Home Medications Medication Instructions Recorded Confirmed multivitamin (Multiple Vitamins 1 tab PO DAILY #30 tabs 08/13/20 06/12/23 tablet) albuterol sulfate 90 mcg/actuation 2 puff inhalation Q6H PRN 01/18/22 06/12/23 aerosol inhaler shortness of breath or wheezing #8.5 grams magnesium 250 mg tablet 250 mg PO DAILY #20 tabs 11/09/22 06/12/23 thiamine HCl (vitamin B1) 250 mg 250 mg PO DAILY 04/19/23 06/12/23 tablet tiotropium 2.5 mcg-olodaterol 2.5 2 puff inhalation Q24H #4 grams 05/04/23 06/12/23 mcg/actuation mist for inhalation (Stiolto Respimat) ipratropium 0.5 mg-albuterol 3 mg 3 ml inhalation Q4H PRN wheezing 05/10/23 06/12/23 (2.5 mg base)/3 mL nebulization #540 mL soln ibuprofen 600 mg tablet 600 mg PO TID PRN #30 tabs 05/20/23 06/12/23 gabapentin 300 mg capsule 300 mg PO TID 06/06/23 06/12/23 omeprazole 40 mg capsule,delayed 40 mg PO DAILY 06/12/23 06/12/23 release tramadol 50 mg tablet 50 mg PO Q12H PRN 06/12/23 06/12/23 Previous Rx's Medication Instructions Recorded multivitamin (Multiple Vitamins 1 tab PO DAILY #30 tabs 08/13/20 tablet) albuterol sulfate 90 mcg/actuation 2 puff inhalation Q6H PRN 01/18/22 aerosol inhaler shortness of breath or wheezing #8.5 grams magnesium 250 mg tablet 250 mg PO DAILY #20 tabs 11/09/22 tiotropium 2.5 mcg-olodaterol 2.5 2 puff inhalation Q24H #4 grams 05/04/23 mcg/actuation mist for inhalation (Stiolto Respimat) ipratropium 0.5 mg-albuterol 3 mg 3 ml inhalation Q4H PRN wheezing 05/10/23 (2.5 mg base)/3 mL nebulization #540 mL soln ibuprofen 600 mg tablet 600 mg PO TID PRN #30 tabs 05/20/23 Allergies Allergy/AdvReac Type Severity Reaction Status Date / Time bacitracin Allergy Mild localized Verified 06/12/23 10:33 [From Neosporin redness ([id number])] neomycin Allergy Mild localized Verified 06/12/23 10:33 [From Neosporin redness ([id number])] polymyxin B Allergy Mild localized Verified 06/12/23 10:33 [From Neosporin redness ([id number])] General Stated Complaint: Orthopedic RAHEEM: 3 Review of Systems Constitutional Constitutional: Reports as per HPI, Denies chills, Denies fever(s), Denies headache(s) and Denies weakness ENT Ears, Nose, Mouth, and Throat: Denies headache(s) Cardiovascular Cardiovascular: Reports as per HPI Respiratory Respiratory: Reports as per HPI and Denies cough Musculoskeletal Musculoskeletal: Reports as per HPI and Denies tingling Integumentary/Breasts Skin/Breast: Reports as per HPI, Denies rash and Denies wounds Neurologic Neurologic: Reports as per HPI, Denies headache(s), Denies tingling, Denies paresthesias and Denies weakness Exam Const General: cooperative, comfortable, no acute distress, well developed and ill appearing chronically Nutritional Appearance: average body habitus and well nourished Orientation: alert and awake [facility] Head: normal to inspection, no palpable skull fracture, normocephalic and atraumatic Neck Neck: normal visual inspection and full ROM Chest Chest: normal inspection of the chest and normal palpation of entire chest wall Resp Effort & Inspection: normal respiratory effort, able to speak in complete sentences and no respiratory distress Cardio Rate: regular rate Rhythm: regular rhythm GI Inspection: normal to inspection and non-distended Palpation: soft and nontender Back/Spine/Pelvis Back: no CVA tenderness Cervical Spine: normal cervical lordosis, cervical ROM normal, No cervical spinal tenderness and No step off deformity Thoracic/Lumbar Spine: thoracic and lumbar spine normal to inspection, No thoracic spinal tenderness and No lumbar spinal tenderness Skin General skin exam: ecchymosis (posterior left knee, appears old) Neuro General: patient alert and patient awake Cognition: normal cognition Speech: speech normal Motor: muscle tone normal throughout Sensory Exam: no sensory deficits noted Extrem Upper/lower leg/hip images: 2 1. point tender area, no signficant deformity. 2+ distal pulses, sesnation intact. Incision healing well, no erythema, warmth, discharge. No malrotation. Left leg slightly shorter than contralateral side. No pain with palpation elsewhere about the leg Course Vital Signs Vital signs: Vital Signs Temperature 36.6 C 06/12/23 10:25 Pulse 99 H 06/12/23 10:25 Respiratory Rate 18 06/12/23 10:25 Blood Pressure 107/87 06/12/23 10:25 Pulse Oximetry 99 06/12/23 10:25 Temperature 36.6 C 06/12/23 10:25 Temperature Source Oral 06/12/23 10:25 Pulse 99 H 06/12/23 10:25 Respiratory Rate 18 06/12/23 10:25 Respiratory Effort Normal, Non-Labored 06/12/23 10:29 Blood Pressure 107/87 06/12/23 10:25 Blood Pressure Position Sitting 06/12/23 10:25 Pulse Oximetry 99 06/12/23 10:25 Oxygen Delivery Method Room Air 06/12/23 10:25 Oxygen Flow Rate 0 06/12/23 10:25 Pain Level 10 06/12/23 10:29 Medical Decision Making Patient is a pleasant 63 year old female, brought in via EMS, with c/c of left hip pain. Had IM nail fixation of left comminuted intertrochanteric hip fracture on 05/18/23. She states that she had been doing well with this, no continued pain. This AM, reports that she had 5 martinis after waking. States that she was sitting on the toilet when she slipped off the seat and landed on the left hip. Was not able to ambulate after, having severe pain. Has not taken anything for pain today. Denies striking her head. No loss of conscious. Denies other injury at the time of the incident. On exam, patient appears nontoxic. She appears to be at her baseline, conversing appropriately. No evidence of head injury, full range of her C-spine with no pain on midline palpation. No step-off. No respiratory distress. Lungs are clear. No pain to palpation about the chest, abdomen, pelvis. She is 2+ distal pulses. Sensation is intact. She has pain to palpation over the lateral left hip near the incision. Patient is quite bony over this area, she is unclear if this is acute or chronic. No notable blood deformity. The left leg is slightly shorter than the right but no malrotation. No pain in the knee although she does have large area of ecchymosis in the left knee. Concern for potential fracture or disruption of her recent hardware placement. Will obtain x-ray. Will give IM Toradol to help with discomfort. FINDINGS: Bones/joints: Screw in the left femoral neck and intramedullary renetta in the proximal left femur. Left hip Fracture fragments are in good alignment.. Degenerative changes in both hip joints and sacroiliac joints Soft tissues: Unremarkable. IMPRESSION: Screw and intramedullary renetta in the left femur. Fracture fragments are in good alignment.. Will ambulate the patient, plan for d/c. Patient ambulating well. Uses walker at baseline since surgery. Requesting discharge. Going to be transported home via RCT. Patient feeling improved, pain controlled. Discussed safety at home, reducing fall risk. Advised f/u with PCP. All of her questions and concerns were addressed, she is in agreement with this plan. Quality:SDOH Health Related Social Needs: 2 No Data to Display PFSH All Active Problems (Updated 06/12/23 @ 12:21 by AMIE Pacheco) Contusion of hip (Acute) Closed intertrochanteric fracture of left hip (Acute) s/p IMN fixation (05/18/23) Smoker (Acute) Closed fracture of left hip (Acute) Fall (Acute) Alcohol intoxication (Acute) Anxiety (Chronic) Cavitary lesion of lung (Acute) H/O ETOH abuse (Acute) Tobacco use disorder (Acute 01/28/14) Pleural effusion (Acute) Hypomagnesemia (Acute) Fluid overload (Acute) Chest pain due to GERD (Acute) Chest wall muscle strain (Acute) Hypokalemia (Acute) COPD exacerbation (Acute) Emphysema lung (Acute) Nicotine dependence, cigarettes, uncomplicated (Acute) Atherosclerosis (Acute) Gastric wall thickening (Acute) Stenosis of right internal carotid artery (Acute) Mass of upper lobe of right lung (Acute) Alcohol abuse (Chronic) Dehydration (Acute) Diarrhea (Acute) Hypomagnesemia (Chronic) B12 deficiency (Acute) Ascites (Acute) Chronic liver disease (Chronic) Weight loss, non-intentional (Acute) Macrocytic anemia (Acute) Early satiety (Acute) Folate deficiency (Acute) Hypomagnesemia (Acute) Hypokalemia (Acute) Leg pain (Acute) Cellulitis (Acute) Bilateral leg ulcer (Acute) Medical History Pulmonary nodule COPD (chronic obstructive pulmonary disease) Hypomagnesemia Cachexia Hepatic fibrosis Ulcer of lower extremity Hair loss Vitamin D deficiency Chest pain Gastroesophageal reflux disease Hx pulmonary embolism COPD (chronic obstructive pulmonary disease) Chronic vomiting Malnutrition Frequent falls Bilateral leg pain Pancreatitis Diastolic dysfunction Folate deficiency anemia Ascites Bilateral lower extremity edema Unintentional weight loss Alcohol abuse Tobacco dependence syndrome Tobacco abuse Surgical History punch biopsy, skin of ankle, right lateral (11/24/16) negative for malignancy, sparse inflammation and reactive blood vessels foot surgery (~2000) Ligation of fallopian tube (~1999) ENT/Nasal surgery (~2007) Family History Father Lung disease Cancer Lung Social History Smoking/Tobacco Use Status: Former Tobacco Use Tobacco: How many years used: 45 Quit status: considering quitting Second Hand Exposure: Yes Smoking risk assessment performed?: Yes Alcohol Intake: current Alcohol Intake frequency: a few times a week Alcohol type: wine Counseling given: Yes Counseling provided: provider counseling Drug use: Rarely Substance use type: marijuana Housing: apartment Current gender identity: female Do you feel safe at home: Yes Do you feel safe in your relationship?: Yes Additional Social history: Lives alone in studio in [facility], 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 Grew up in [place] [place], sisters in area. History History 2 Para 0 Hx # Term Pregnancies Multiple births Hx # Pregnancies Ectopic pregnancies AB induced Hx Number of Living Children AB spontaneous PAWSS Have you Been Recently Intoxicated or Drunk Within the Last 30 days?: Yes Have you Ever Experienced Previous Episodes of Alcohol Withdrawal?: No Have you ever Experienced Withdrawal Seizures?: No Have you ever Experienced Delirium Tremens(DT)s?: No Have you ever undergone Alcohol Rehabilitation Treatment (i.e, inpt ot outpatient treatment programs)?: No Have you ever Experienced Blackouts?: Yes Have you ever Combined Alcohol with other Downers within the last 90 days?: No Have you ever Combined Alcohol with any other Substance of Abuse during the last 90 days?: No Evidence of Increased Autonomic Activity (i.e. HR>120, tremor, sweating, agitation, nausea)?: No Result: 2 Discharge Plan Disposition Patient Disposition: Home Condition: Good Discharge Details Clinical Impression: Contusion of hip Primary Care Provider: MARIANO KEARNEY ED Provider: Padmini Perkins Home Meds and New Rx's Prescriptions: Continued ipratropium-albuterol 0.5 mg-3 mg(2.5 mg base)/3 mL solution for nebulization 3 ml inhalation Q4H PRN (Reason: wheezing) Qty: 540 8RF albuterol sulfate 90 mcg/actuation HFA aerosol inhaler 2 puff inhalation Q6H PRN (Reason: shortness of breath or wheezing) Qty: 8.5 12RF thiamine HCl (vitamin B1) 250 mg tablet 250 mg PO DAILY gabapentin 300 mg capsule 300 mg PO TID Stiolto Respimat 2.5-2.5 mcg/actuation mist 2 puff inhalation Q24H Qty: 4 12RF multivitamin [Multiple Vitamins] Tablet 1 tab PO DAILY Qty: 30 0RF magnesium 250 mg tablet 250 mg PO DAILY Qty: 20 0RF ibuprofen 600 mg tablet 600 mg PO TID PRNQty: 30 0RF omeprazole 40 mg capsule,delayed release(DR/EC) 40 mg PO DAILY tramadol 50 mg tablet 50 mg PO Q12H PRN Patient Comments: TAKE ONE TABLET BY MOUTH TWICE A DAY NEEDED FOR PAIN Discharge Instructions Instructions: Contusion in Adults (ED) Additional Instructions: Your x-ray is reassuring here today, fracture is in good alignment as is the hardware. Please continue to use the walker as recommended by physical therapy. Please use the walker provided by them. Cut back on alcohol and slow down when going from sitting to standing or when getting on the toilet. If you develop any new/worsening symptoms, please seek care urgently once again. Otherwise, please follow up with your primary care in 2 weeks for reevaluation. Referrals: MARIANO KEARNEY, HEEL NAILING MACHINE OPERATOR [Primary Care Provider] -
[2023-06-12] MEDS: Ketorolac 30 MG/ML VIAL IM (10:47)
--- NOTE | 2023-06-12 11:56 | DI.VRAD_ITS ---
PROCEDURE INFORMATION: Exam: XR Left Hip Exam date and time: 06/12/2023 11:42 AM Age: 63 years old Clinical indication: Other: Fall off toilet, recent left hip surgery; Prior surgery; Surgery date: 1-6 months; Surgery type: Left hip surgery for FX TECHNIQUE: Imaging protocol: Radiologic exam of the left hip. Views: 2 or 3 views hip with pelvis when performed. COMPARISON: CR XR HIP LT AP LAT ONLY 06/06/2023 11:09 AM FINDINGS: Bones/joints: Screw in the left femoral neck and intramedullary renetta in the proximal left femur. Left hip Fracture fragments are in good alignment.. Degenerative changes in both hip joints and sacroiliac joints Soft tissues: Unremarkable. IMPRESSION: Screw and intramedullary renetta in the left femur. Fracture fragments are in good alignment.. Dictated and Authenticated by: Abdirahman Andrews MD. Ordering:JOE Washington MD
== END 2023-06-12 13:12 | disposition home or self-care (01) ==
PROVIDERS: Emergency Provider Physician Assistant; PCP Nurse Practitioner Family
DX: S70.02XA Contusion of left hip, initial encounter (principal); J44.9 Chronic obstructive pulmonary disease, unspecified; Z98.890 Other specified postprocedural states; Z86.711 Personal history of pulmonary embolism; W18.11XA Fall from or off toilet without subsequent striking against object, initial encounter; Y93.E8 Activity, other personal hygiene; Y92.012 Bathroom of single-family (private) house as the place of occurrence of the external cause
CPT/HCPCS: 96372; 99283; 73502; J1885

== ENCOUNTER 2023-06-23 14:45 | Outpatient (CLI) | payer BC, SELFPAY ==
--- NOTE | 2023-06-23 11:58 | DI.RAD_ITS ---
Exam(s) XR HIP LT AP LAT ONLY EXAM: XR HIP LT AP LAT ONLY CLINICAL HISTORY: S/P IM NAIL. TECHNIQUE: 2D digital imaging was performed. Two images were obtained. AP and lateral views were ob tained. COMPARISON: CR XR HIP LT AP LAT ONLY from 06/06/2023 FINDINGS: BONES: There are stable post operative changes present. There has been internal fixation of the inte rtrochanteric fracture of the left femur. No new fracture or dislocation. JOINTS: The joint spaces are well maintained. SOFT TISSUE: Vascular calcifications are present. IMPRESSION: Stable postoperative changes. DATA REPOSITORY: RADIATION DOSE DELIVERED:
== END 2023-06-23 14:46 | disposition home or self-care (01) ==
LOC: DIORS 14:45
PROVIDERS: PCP Nurse Practitioner Family; Visit Provider Student in an Organized Health Care Education/Training Program
DX: S72.142D Displaced intertrochanteric fracture of left femur, subsequent encounter for closed fracture with routine healing (principal); X58.XXXD Exposure to other specified factors, subsequent encounter; Z98.890 Other specified postprocedural states
CPT/HCPCS: 73502

== ENCOUNTER 2023-06-27 00:27 | Emergency (ER) | payer BC, SELFPAY ==
[2023-06-27] VITALS (50 sets, daily range): BP systolic 79–164; BP diastolic 42–82; PULSE 78–96; RESP 14–18; TEMP 36.4; O2SAT 90–100
--- NOTE | 2023-06-27 00:15 | DI.CT_ITS ---
Exam(s) CT HEAD CERVICAL SPINE WO EXAM: CT HEAD CERVICAL SPINE WO CLINICAL HISTORY: fall, hit superior aspect of Left scalp. TECHNIQUE: Imaging Protocol: Axial computed tomography images with coronal and sagittal reformatted images were created and reviewed COMPARISON: CT CT BRAIN NECK CTA from 12/26/2020 FINDINGS: BRAIN: There is a high left scalp laceration. No large hematoma. There are no skull fractures nor fluid in the visualized paranasal sinuses. There is no evidence of intracranial hemorrhage, mass effect, or shift of midline structures. There are no extra-axial fluid collections. The ventricles are not enlarged or shifted and there is no blo od within the ventricular system nor within the basal cisterns. CERVICAL SPINE: There is no evidence of acute fracture. There is anterolisthesis of C3 upon C4 which is related to a dvanced facet arthrosis. Is also milder anterolisthesis C4 upon C5 also related to facet arthrosis. There is mild there are a nterolisthesis C5 upon C6 also related to facet arthrosis. There is disc space narrowing at C5-6 and C6-7 levels chronic appearing. There is no significant facet joint malalignment. No significant osseous lesions evident. No significant osseous lesions. Incidentally noted is sys extensive atherosclerotic calcification in the common carotid arteries and at the carotid bifurcations calcification also seen in the bilateral subclavian arteries included in the field of view of this study. Also noted is severe COPD changes in the partially visualized lung apices. IMPRESSION: Multilevel advanced degenerative changes and degenerative multilevel listhesis in the cervical spine. However no obvious acute fractures evident in the cervical spine. High left scalp laceration. No evidence of skull fracture or intracranial hemorrhage. Heavily calcified common carotid arteries and carotid bifurcations in the kidneys severe atherosclero tic involvement. RADIATION DOSE DELIVERED: 870.9mGy.cm Total DLP DATA REPOSITORY: All CT scans at this facility are submitted to the National Radiology Data Registry (NRDR) Dose Index Registry (DIR) with the [employer] (A[employer]). RADIATION OPTIMIZATION: All CT scans at this facility use at least one of these dose optimization te chniques: automated exposure control; mA and/or kV adjustment per patient size (includes targeted exa ms where dose is matched to clinical indication); or iterative reconstruction.
--- NOTE | 2023-06-27 00:29 | ED.GENADUL_ITS ---
Discharge Plan Disposition Patient Disposition: Home Condition: Good Discharge Details Chief Complaint: Fall/Non TraumaCriteria Clinical Impression: Chronic left hip pain, Fall, Laceration of scalp Primary Care Provider: MARIANO KEARNEY ED Provider: Walter Griffiths Home Meds and New Rx's Prescriptions: No Action ipratropium-albuterol 0.5 mg-3 mg(2.5 mg base)/3 mL solution for nebulization 3 ml inhalation Q4H PRN (Reason: wheezing) Qty: 540 8RF albuterol sulfate 90 mcg/actuation HFA aerosol inhaler 2 puff inhalation Q6H PRN (Reason: shortness of breath or wheezing) Qty: 8.5 12RF thiamine HCl (vitamin B1) 250 mg tablet 250 mg PO DAILY gabapentin 300 mg capsule 300 mg PO TID Stiolto Respimat 2.5-2.5 mcg/actuation mist 2 puff inhalation Q24H Qty: 4 12RF multivitamin [Multiple Vitamins] Tablet 1 tab PO DAILY Qty: 30 0RF magnesium 250 mg tablet 250 mg PO DAILY Qty: 20 0RF ibuprofen 600 mg tablet 600 mg PO TID PRNQty: 30 0RF omeprazole 40 mg capsule,delayed release(DR/EC) 40 mg PO DAILY tramadol 50 mg tablet 50 mg PO Q12H PRN Patient Comments: TAKE ONE TABLET BY MOUTH TWICE A DAY NEEDED FOR PAIN Discharge Instructions Instructions: Laceration (ED), Staple Care (ED) Additional Instructions: Please return in 7 to 10 days to have the vincent removed. If you notice any worsening of your symptoms, or any new symptoms such as vomiting, diarrhea, fever, chills, shortness of breath, chest pain, numbness, weakness, or fainting , please return immediately to the emergency department for reevaluation. Please follow up with your primary care provider as soon as possible for reassessment and reevaluation. As always, it was a pleasure participating in your medical care today. Referrals: MARIANO KEARNEY, DIE FINISHER [Primary Care Provider] - [facility] General Date/Time Provider Initiated Documentation: 06/27/23 00:27 . HPI Narrative: 63-year-old female with a past medical history of alcohol use, recent hip surgery on the left over a month ago, anxiety, reactive airway disease, GERD, presents today for evaluation of fall. The patient drank some alcohol this evening, was intoxicated, sat on the toilet, and then while on the toilet lost her balance and hit her left scalp. She denies any loss of consciousness. She recalls the event. This has happened in the past multiple times when she becomes intoxicated. EMS was called, she was brought here for further assessment. Patient has no other complaints at this time. No other modifying factors. She admits to chronic mild achiness in her left hip, she did not hit it or make it worse during this episode. She admits to mild achiness in her head. No other complaints at this time. She is not on any blood thinners or anticoagulants. Related Data Home Medications Medication Instructions Recorded Confirmed multivitamin (Multiple Vitamins 1 tab PO DAILY #30 tabs 08/13/20 06/23/23 tablet) albuterol sulfate 90 mcg/actuation 2 puff inhalation Q6H PRN 01/18/22 06/23/23 aerosol inhaler shortness of breath or wheezing #8.5 grams magnesium 250 mg tablet 250 mg PO DAILY #20 tabs 11/09/22 06/23/23 thiamine HCl (vitamin B1) 250 mg 250 mg PO DAILY 04/19/23 06/23/23 tablet tiotropium 2.5 mcg-olodaterol 2.5 2 puff inhalation Q24H #4 grams 05/04/23 06/23/23 mcg/actuation mist for inhalation (Stiolto Respimat) ipratropium 0.5 mg-albuterol 3 mg 3 ml inhalation Q4H PRN wheezing 05/10/23 06/23/23 (2.5 mg base)/3 mL nebulization #540 mL soln ibuprofen 600 mg tablet 600 mg PO TID PRN #30 tabs 05/20/23 06/23/23 gabapentin 300 mg capsule 300 mg PO TID 06/06/23 06/23/23 omeprazole 40 mg capsule,delayed 40 mg PO DAILY 06/12/23 06/23/23 release tramadol 50 mg tablet 50 mg PO Q12H PRN 06/12/23 06/23/23 Previous Rx's Medication Instructions Recorded multivitamin (Multiple Vitamins 1 tab PO DAILY #30 tabs 08/13/20 tablet) albuterol sulfate 90 mcg/actuation 2 puff inhalation Q6H PRN 01/18/22 aerosol inhaler shortness of breath or wheezing #8.5 grams magnesium 250 mg tablet 250 mg PO DAILY #20 tabs 11/09/22 tiotropium 2.5 mcg-olodaterol 2.5 2 puff inhalation Q24H #4 grams 05/04/23 mcg/actuation mist for inhalation (Stiolto Respimat) ipratropium 0.5 mg-albuterol 3 mg 3 ml inhalation Q4H PRN wheezing 05/10/23 (2.5 mg base)/3 mL nebulization #540 mL soln ibuprofen 600 mg tablet 600 mg PO TID PRN #30 tabs 05/20/23 Allergies Allergy/AdvReac Type Severity Reaction Status Date / Time bacitracin Allergy Mild localized Verified 06/23/23 11:10 [From Neosporin redness ([id number])] neomycin Allergy Mild localized Verified 06/23/23 11:10 [From Neosporin redness ([id number])] polymyxin B Allergy Mild localized Verified 06/23/23 11:10 [From Neosporin redness ([id number])] General Stated Complaint: Fall/Non TraumaCriteria RAHEEM: 3 Review of Systems All systems reviewed & are unremarkable except as noted in HPI and below Exam Narrative Exam Narrative: 1.Const: Well-nourished, Well-developed, appearing stated age 2.Eyes: PERRL, no conjunctival injection, and symmetrical lids. 3.ENT: Atraumatic external nose and ears. Moist MM. Neck: Symmetric, trachea midline, No thyromegaly. There is no evidence of raccoon eyes, renee sign, CSF rhinorrhea, mastoid tenderness, cranial crepitus, hemotympanum, exophthalmos, or hyphema. Patient demonstrates intact dentition with no signs of tooth avulsion or fracture, no signs of jaw deformity, no evidence of a LeFort's fracture, with an intact palate, nose and orbital region. There is no evidence of a nasal septal hematoma. No proptosis. Jaw closes symmetrically. Airway is clear. 4.CVS: +S1/S2, No murmurs or gallops. Peripheral pulses 2+ and equal in all extremities. Brisk capillary refill in all extremities. 5.RESP: Unlabored respiratory effort. Clear to auscultation bilaterally. No wheezes rales or rhonchi 6.GI: Soft, Nontender/Nondistended, No hepatosplenomegaly. No guarding or rebound. 7.MSK: Normocephalic/Atraumatic, Extremities w/o deformity or ttp No cyanosis or clubbing, Normal movement of all extremities No midline tenderness to palpation over the CTLS spine. Normal ROM in flexion, extension, side bend, and rotation. Patient has +5 out of 5 strength in the lower extremities in dorsiflexion and plantarflexion, knee flexion and extension, hip flexion and extension. Normal strength for dorsiflexion and plantar flexion of the great toe bilaterally. There is +2 over 2 dorsalis pedis pulses bilaterally. There is normal sensation to the skin with light touch at the foot, knee, and hip. Normal saddle sensation. Good sensation over the deep sural nerve area bilaterally. Rectal exam demonstrates good rectal tone with excellent ivan-rectal sensation. Reflexes are +2 over 4 in the patellar reflex bilaterally. +5 out of 5 strength in the medial, ulnar, radial nerve distribution bilaterally in the hands as well as intact light touch sensation to these dermatomes on the hands 8.Skin: Warm, Dry. Patient has no active bleeding at this time. Small hematoma over the left scalp, very small 30 mm laceration in this area with no active bleeding. 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 Sensation grossly intact, no focal neurologic deficits. 10.Psych: (AAO) x3. Appropriate mood and affect. Mild intoxication. Course Vital Signs Vital signs: Vital Signs Temperature 36.4 C 06/27/23 00:22 Pulse 85 06/27/23 00:22 Respiratory Rate 18 06/27/23 00:22 Blood Pressure 98/69 L 06/27/23 00:22 Pulse Oximetry 96 06/27/23 00:22 Temperature 36.4 C 06/27/23 00:22 Temperature Source Tympanic 06/27/23 00:22 Pulse 85 06/27/23 00:22 Respiratory Rate 18 06/27/23 00:22 Blood Pressure 98/69 L 06/27/23 00:22 Pulse Oximetry 96 06/27/23 00:22 Oxygen Delivery Method Room Air 06/27/23 00:22 Oxygen Flow Rate 0 06/27/23 00:22 Pain Level 2 06/27/23 00:22 Procedures Laceration Laceration 1: Site: scalp Side (If applicable): left Size (cm): 3 Description: linear Depth: simple, single layer Local Anesthetic: Lidocaine 1% and with Epi Amount of anesthesia used (mL): 3 Pre-repair: wound explored, irrigated extensively and deep structures intact Skin layer closed with: other (vincent) Number of sutures: 3 Technique: simple, interrupted Medical Decision Making 63-year-old female with a past medical history of alcohol use, recent hip surgery on the left over a month ago, anxiety, reactive airway disease, GERD, presents today for evaluation of fall. The patient drank some alcohol this evening, was intoxicated, sat on the toilet, and then while on the toilet lost her balance and hit her left scalp. She denies any loss of consciousness. She recalls the event. This has happened in the past multiple times when she becomes intoxicated. EMS was called, she was brought here for further assessment. Patient has no other complaints at this time. No other modifying factors. She admits to chronic mild achiness in her left hip, she did not hit it or make it worse during this episode. She admits to mild achiness in her head. No other complaints at this time. She is not on any blood thinners or anticoagulants. Exam demonstrates a very pleasant but mildly intoxicated female, small hematoma and 30 mm laceration over the left scalp. No history of syncope. Fall appears to be balance and alcohol related. No neurologic deficits or signs of other trauma. No acute tenderness in the left hip. Signs and symptoms appear to be consistent with contusion and small laceration. However because of patient's alcohol use, age, and episode, will get a CT scan of the head to rule out acute bleed. We will monitor closely and reassess. 2:[address] scan of the head is negative for acute process. X-ray of the postoperative hip shows a small linear lucency concerning for nondisplaced fracture. We did have the x-rays reviewed by Dr. Feliciano. He does not feel that this necessarily represents a fracture. Patient is able to ambulate with some mild pain. We will get a CT scan for further visualization. 3 vincent were placed in the patient's scalp. Patient tolerated this well. 6:[address] scan does not show evidence of acute process. Case was discussed with Dr. Feliciano. He sees no indication for surgical intervention. Patient feels well. Repeat assessment FINDINGS: Bones/joints: Osteopenia. Previously fixated intertrochanteric fracture of the left proximal femur again noted with unchanged alignment. No acute hardware complication is evident. Mildly displaced greater and lesser trochanteric fragments unchanged in alignment. On the lateral view there is lucency in the anterior subtrochanteric cortex of the proximal femur which is not seen on the comparison 06/06/2023 and might represent a new nondisplaced fracture component, or may simply relate to the previous fracture with better visualization due to projection or interval aging. SI joints and pubic symphysis unremarkable. Right hip unremarkable. Soft tissues: No gross soft tissue abnormalities. Vasculature: Mild calcific atherosclerosis. IMPRESSION: 1. Linear lucency suspicious for nondisplaced fracture in the anterior subtrochanteric femoral cortex which was not seen on the recent comparison exams and might represent a new nondisplaced fracture in this region, versus a component of the previously identified existing fractures simply better visualized due to projection or interval aging. 2. Exam otherwise unchanged. Thank you for allowing us to participate in the care of your patient. Dictated and Authenticated by: Nikunj Sánchez MD 06/27/2023 2:02 AM Eastern Time ([place] & [place]) FINDINGS: Brain: No acute intracranial hemorrhage, mass-effect, midline shift, or extra- axial collection is seen. The lopez white matter differentiation appears preserved. Cerebral ventricles: The ventricular system and basilar cisterns appear appropriate in size and configuration. Paranasal sinuses: The visualized paranasal sinuses appear well-aerated. Mastoid air cells: The mastoid air cells appear well-aerated. Auditory system: The middle ear cavities appear clear. Bones/joints: The bony calvarium appears intact. No depressed skull fracture is seen. Soft tissues: There is a left scalp laceration near the vertex. No gross focal scalp hematoma is seen. IMPRESSION: No acute intracranial hemorrhage or depressed skull fracture FINDINGS: Bones/joints: No acute cervical fracture is seen. There is mild anterolisthesis of C3 on C4, of C4 on C5, and of C5 on C6. C2-C3: Disc height preserved. Mild posterior osteophytic ridging. Severe left- sided facet arthrosis. No significant cervical stenosis or right-sided foraminal narrowing. Mild-moderate left-sided foraminal narrowing. C3-C4: Grade 1 anterolisthesis of C3 on C4. Severe bilateral facet arthrosis. No significant cervical stenosis. Mild bilateral foraminal narrowing. C4-C5: Mild anterolisthesis of C4 on C5. Moderate-severe left-sided facet arthrosis. No significant cervical stenosis or significant foraminal narrowing. C5-C6: Loss of disc height with mild anterolisthesis of C5 on C6. Anterior osteophytes. Moderate right-sided facet arthrosis. No significant cervical stenosis or significant foraminal narrowing. C6-C7: Loss of disc height. Prominent anterior osteophytes. No significant cervical stenosis or foraminal narrowing. C7-T1: No significant cervical stenosis or foraminal narrowing. Thyroid: The thyroid gland is partially excluded from view but appears grossly unremarkable through its visualized portion. Lungs: There is severe emphysema with bullous changes at the lung apices. Vasculature: There is extensive atherosclerotic calcification with prominent atherosclerotic calcification throughout the common carotid arteries and at the carotid bifurcations. The carotid arteries take an unusually medial course posterior to the hypopharynx. The right jugular vein is dominant and unusually large. The left jugular vein is small. Soft tissues: Within the limits of the exam, no gross soft tissue fluid collection is seen in the neck. IMPRESSION: 1. No acute cervical fracture is seen. 2. Degenerative changes, as detailed level by level above Thank you for allowing us to participate in the care of your patient. Dictated and Authenticated by: Norman Langford MD 06/27/2023 2:31 AM Eastern Time ([place] & [place])\ FINDINGS: Bones/joints: Intramedullary renteta with dynamic hip screw in-situ transfixing a subacute comminuted intertrochanteric fracture through the proximal left femur, apparently acute at the time of the comparison exam from May 18, 2023. No new acute fracture or dislocation seen. No evidence of hardware breakage or loosening. Soft tissues: No gross soft tissue fluid collection demonstrated. Bowel: Sigmoid diverticulosis but no evidence of diverticulitis through the visualized segment. Urinary bladder: Prominent distension of the urinary bladder, nonspecific. IMPRESSION: 1. Intramedullary renetta with dynamic hip screw in-situ transfixing a subacute comminuted intertrochanteric fracture through the proximal left femur, apparently acute at the time of the comparison exam from May 18, 2023. No new acute fracture or dislocation seen. No evidence of hardware breakage or loosening. 2. Prominent distension of the urinary bladder, nonspecific. Thank you for allowing us to participate in the care of your patient. Dictated and Authenticated by: Norman Langford MD 06/27/2023 3:46 AM Eastern Time ([place] & [place]) Quality:SDOH Health Related Social Needs: No Data to Display PFSH All Active Problems (Updated 06/27/23 @ 06:44 by Walter Griffiths DO) Laceration of scalp (Acute) Fall (Acute) Chronic left hip pain (Acute) Contusion of hip (Acute) Closed intertrochanteric fracture of left hip (Acute) s/p IMN fixation (05/18/23) Smoker (Acute) Closed fracture of left hip (Acute) Fall (Acute) Alcohol intoxication (Acute) Anxiety (Chronic) Cavitary lesion of lung (Acute) H/O ETOH abuse (Acute) Tobacco use disorder (Acute 01/28/14) Pleural effusion (Acute) Hypomagnesemia (Acute) Fluid overload (Acute) Chest pain due to GERD (Acute) Chest wall muscle strain (Acute) Hypokalemia (Acute) COPD exacerbation (Acute) Emphysema lung (Acute) Nicotine dependence, cigarettes, uncomplicated (Acute) Atherosclerosis (Acute) Gastric wall thickening (Acute) Stenosis of right internal carotid artery (Acute) Mass of upper lobe of right lung (Acute) Alcohol abuse (Chronic) Dehydration (Acute) Diarrhea (Acute) Hypomagnesemia (Chronic) B12 deficiency (Acute) Ascites (Acute) Chronic liver disease (Chronic) Weight loss, non-intentional (Acute) Macrocytic anemia (Acute) Early satiety (Acute) Folate deficiency (Acute) Hypomagnesemia (Acute) Hypokalemia (Acute) Leg pain (Acute) Cellulitis (Acute) Bilateral leg ulcer (Acute) Medical History Pulmonary nodule COPD (chronic obstructive pulmonary disease) Hypomagnesemia Cachexia Hepatic fibrosis Ulcer of lower extremity Hair loss Vitamin D deficiency Chest pain Gastroesophageal reflux disease Hx pulmonary embolism COPD (chronic obstructive pulmonary disease) Chronic vomiting Malnutrition Frequent falls Bilateral leg pain Pancreatitis Diastolic dysfunction Folate deficiency anemia Ascites Bilateral lower extremity edema Unintentional weight loss Alcohol abuse Tobacco dependence syndrome Tobacco abuse Surgical History punch biopsy, skin of ankle, right lateral (11/24/16) negative for malignancy, sparse inflammation and reactive blood vessels foot surgery (~2000) Ligation of fallopian tube (~1999) ENT/Nasal surgery (~2007) Family History Father Lung disease Cancer Lung Social History Smoking/Tobacco Use Status: Former Tobacco Use Tobacco: How many years used: 45 Quit status: considering quitting Second Hand Exposure: Yes Smoking risk assessment performed?: Yes Alcohol Intake: current Alcohol Intake frequency: a few times a week Alcohol type: wine Counseling given: Yes Counseling provided: provider counseling Drug use: Rarely Substance use type: marijuana Housing: apartment Current gender identity: female Do you feel safe at home: Yes Do you feel safe in your relationship?: Yes Additional Social history: Lives alone in studio in [facility], 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 Grew up in [facility], sisters in area. History History Para 0 Hx # Term Pregnancies Multiple births Hx # Pregnancies Ectopic pregnancies AB induced Hx Number of Living Children AB spontaneous
--- NOTE | 2023-06-27 00:30 | DI.RAD_ITS ---
Exam(s) XR HIP LT COMPLETE AP PELVIS EXAM: XR HIP LT COMPLETE AP PELVIS CLINICAL HISTORY: fall postoperatively, left hip pain. TECHNIQUE: 2D digital imaging was performed. COMPARISON: CR,XR XR HIP LT COMPLETE AP PELVIS from 05/18/2023 XA XR HIP LT IN OR from 05/18/2023 CR XR HIP LT AP LAT ONLY from 06/06/2023 CR XR HIP LT AP LAT ONLY from 06/23/2023 FINDINGS: 3 views Again noted is the recently placed hardware in the left hip across the intertrochanteric fracture sit e. When compared to the images of 06/06/2023 there is now evident a subtle nondisplaced fracture line in the anterior subtrochanteric cortex which was not evident on the prior images and may represent a ne w fracture versus is part of the previous fracture just better visualize due to slight differences in projection. IMPRESSION: Possible subtle new nondisplaced fracture, as described above. DATA REPOSITORY: RADIATION DOSE DELIVERED:
[2023-06-27] MEDS: Lactated Ringers 1,000 ML 1000 ML IV (01:03)
[2023-06-27] MEDS: Hydrogen Peroxide 3% 480 ML BTL (01:03)
[2023-06-27] MEDS: Lidocaine/Epinephri/Tetracaine Topical Gel 3 ML TP (01:03)
[2023-06-27 01:05] LABS: Abs Immature Grans 0.03 10^3/uL (0.0-0.06); Absolute Basophil Count 0.09 10^3/uL (0.0-0.2); Absolute Eosinophil Count 0.07 10^3/uL (0.0-0.7); Absolute Monocyte Count 0.43 10^3/uL (0.1-0.8); Absolute Neutrophil Count 1.93 10^3/uL (1.2-6.7); Eosinophils % 1.6; HCT 27.7 % (36.0-46.0); HGB 9.4 g/dL (11.2-15.7); Immature Grans % 0.7; Lymphocytes % 42.7; MCH 34.1 pg (27.0-33.0); MCHC 33.9 % (32.0-36.0); MCV 100 fL (80-95); MPV 9.1 fL (8.0-11.0); Monocytes % 9.7; Neutrophils % 43.3; Platelet Count 293 10^3/uL (130-400); RBC 2.76 10^6/uL (3.93-5.22); RDW 17.2 % (11.7-14.6); RDW-SD 62.4 fL; WBC 4.45 10^3/uL (4.4-10.8)
[2023-06-27 01:21] LABS: ALT 15 U/L (14-59); AST 33 U/L (15-37); Albumin 2.6 g/dL (3.4-5.0); Alkaline Phosphatase 119 U/L (46-116); Anion Gap 11.8 mmol/L (3-11); BUN 6 mg/dL (7-18); Bilirubin, Total 0.3 mg/dL (0.2-1.0); CO2 27.2 mmol/L (21.0-32.0); CREATININE 0.7 mg/dL (0.55-1.02); Calcium 8.3 mg/dL (8.5-10.1); Chloride 93 mmol/L (98-107); ETHANOL BLOOD 237.4 mg/dL (<10); Estimated GFR 97.72 (mL/min/1.73m2); Glucose 62 mg/dL (74-106); Potassium 3.1 mmol/L (3.5-5.1); Sodium 132 mmol/L (136-145); Total Protein 5.7 g/dL (6.4-8.2)
[2023-06-27] MEDS: POTASSIUM CHLORIDE 10 MEQ/100 ML BAG 100 MEQ IVPB (01:55)
[2023-06-27] MEDS: THIAMINE 500 MG in Normal Saline 100 ML 200 MG IVPB (01:56)
[2023-06-27] MEDS: Potassium Chloride 20 MEQ TABCR 40 MEQ PO (01:57)
--- NOTE | 2023-06-27 02:03 | DI.VRAD_ITS ---
PROCEDURE INFORMATION: Exam: XR Left Hip Exam date and time: 06/27/2023 1:30 AM Age: 63 years old Clinical indication: Injury or trauma; Blunt trauma (contusions or hematomas); Injury date: 06/26/23; Injury details: Fall postoperatively, left hip pain; Prior surgery; Surgery date: <1 month; Surgery type: L hip TECHNIQUE: Imaging protocol: Radiologic exam of the left hip. Views: 2 or 3 views hip with pelvis when performed. COMPARISON: CR XR HIP LT AP LAT ONLY 06/23/2023 11:35 AM FINDINGS: Bones/joints: Osteopenia. Previously fixated intertrochanteric fracture of the left proximal femur again noted with unchanged alignment. No acute hardware complication is evident. Mildly displaced greater and lesser trochanteric fragments unchanged in alignment. On the lateral view there is lucency in the anterior subtrochanteric cortex of the proximal femur which is not seen on the comparison 06/06/2023 and might represent a new nondisplaced fracture component, or may simply relate to the previous fracture with better visualization due to projection or interval aging. SI joints and pubic symphysis unremarkable. Right hip unremarkable. Soft tissues: No gross soft tissue abnormalities. Vasculature: Mild calcific atherosclerosis. IMPRESSION: 1. Linear lucency suspicious for nondisplaced fracture in the anterior subtrochanteric femoral cortex which was not seen on the recent comparison exams and might represent a new nondisplaced fracture in this region, versus a component of the previously identified existing fractures simply better visualized due to projection or interval aging. 2. Exam otherwise unchanged. Dictated and Authenticated by: Nikunj Sánchez MD. Ordering:SARWAT Waston MD
--- NOTE | 2023-06-27 02:15 | DI.CT_ITS ---
Exam(s) CT LOWER EXTREMITY LT WO EXAM: CT LOWER EXTREMITY LT WO CLINICAL HISTORY: eval hip for fx. TECHNIQUE: Imaging Protocol: Axial computed tomography images with coronal and sagittal reformatted images were created and reviewed. CONTRAST MATERIAL: None COMPARISON: CT CT CHEST/ABD/PEL W from 08/16/2022 CR XR HIP LT AP LAT ONLY from 06/23/2023 CR,XR XR HIP LT COMPLETE AP PELVIS from 06/27/2023 Plain films earlier same date FINDINGS: There is an intramedullary renetta supporting adynamic screw across intertrochanteric fracture site, plac ed on 05/18/2023. Avulsed lesser trochanter again noted. There are multiple fracture fragments at t he level of the trochanter but these were probably previously present. There are no fractures of the acetabulum and pubic rami. Incidentally noted is a distended urinary bladder and extensive sigmoid diverticulosis. IMPRESSION: As above but doubtful for acute fracture nor obvious hardware loosening. Distended urinary bladder and extensive sigmoid diverticulosis incidentally noted. RADIATION DOSE DELIVERED: 282.34mGy.cm Total DLP DATA REPOSITORY: All CT scans at this facility are submitted to the National Radiology Data Registry (NRDR) Dose Index Registry (DIR) with the [employer] (A[employer]). RADIATION OPTIMIZATION: All CT scans at this facility use at least one of these dose optimization te chniques: automated exposure control; mA and/or kV adjustment per patient size (includes targeted exa ms where dose is matched to clinical indication); or iterative reconstruction.
--- NOTE | 2023-06-27 02:32 | DI.VRAD_ITS ---
PROCEDURE INFORMATION: Exam: CT Head Without Contrast Exam date and time: 06/27/2023 1:19 AM Age: 63 years old Clinical indication: Injury or trauma; Blunt trauma (contusions or hematomas); Consciousness not specified; Injury date: 06/26/23; Injury details: Fall, hit superior aspect of left scalp TECHNIQUE: Imaging protocol: Computed tomography of the head without contrast. Radiation optimization: All CT scans at this facility use at least one of these dose optimization techniques: automated exposure control; mA and/or kV adjustment per patient size (includes targeted exams where dose is matched to clinical indication); or iterative reconstruction. COMPARISON: CT BRAIN NECK CTA 12/26/2020 2:02 PM FINDINGS: Brain: No acute intracranial hemorrhage, mass-effect, midline shift, or extra-axial collection is seen. The lopez white matter differentiation appears preserved. Cerebral ventricles: The ventricular system and basilar cisterns appear appropriate in size and configuration. Paranasal sinuses: The visualized paranasal sinuses appear well-aerated. Mastoid air cells: The mastoid air cells appear well-aerated. Auditory system: The middle ear cavities appear clear. Bones/joints: The bony calvarium appears intact. No depressed skull fracture is seen. Soft tissues: There is a left scalp laceration near the vertex. No gross focal scalp hematoma is seen. IMPRESSION: No acute intracranial hemorrhage or depressed skull fracture. PROCEDURE INFORMATION: Exam: CT Cervical Spine Without Contrast Exam date and time: 06/27/2023 1:19 AM Age: 63 years old Clinical indication: Injury or trauma; Blunt trauma (contusions or hematomas); Consciousness not specified; Injury date: 06/26/23; Injury details: Fall, hit superior aspect of left scalp TECHNIQUE: Imaging protocol: Computed tomography of the cervical spine without contrast. Radiation optimization: All CT scans at this facility use at least one of these dose optimization techniques: automated exposure control; mA and/or kV adjustment per patient size (includes targeted exams where dose is matched to clinical indication); or iterative reconstruction. COMPARISON: CT HEAD AND CSPINE W/O CONTRAST 02/25/2017 10:14 AM FINDINGS: Bones/joints: No acute cervical fracture is seen. There is mild anterolisthesis of C3 on C4, of C4 on C5, and of C5 on C6. C2-C3: Disc height preserved. Mild posterior osteophytic ridging. Severe left-sided facet arthrosis. No significant cervical stenosis or right-sided foraminal narrowing. Mild-moderate left-sided foraminal narrowing. C3-C4: Grade 1 anterolisthesis of C3 on C4. Severe bilateral facet arthrosis. No significant cervical stenosis. Mild bilateral foraminal narrowing. C4-C5: Mild anterolisthesis of C4 on C5. Moderate-severe left-sided facet arthrosis. No significant cervical stenosis or significant foraminal narrowing. C5-C6: Loss of disc height with mild anterolisthesis of C5 on C6. Anterior osteophytes. Moderate right-sided facet arthrosis. No significant cervical stenosis or significant foraminal narrowing. C6-C7: Loss of disc height. Prominent anterior osteophytes. No significant cervical stenosis or foraminal narrowing. C7-T1: No significant cervical stenosis or foraminal narrowing. Thyroid: The thyroid gland is partially excluded from view but appears grossly unremarkable through its visualized portion. Lungs: There is severe emphysema with bullous changes at the lung apices. Vasculature: There is extensive atherosclerotic calcification with prominent atherosclerotic calcification throughout the common carotid arteries and at the carotid bifurcations. The carotid arteries take an unusually medial course posterior to the hypopharynx. The right jugular vein is dominant and unusually large. The left jugular vein is small. Soft tissues: Within the limits of the exam, no gross soft tissue fluid collection is seen in the neck. IMPRESSION: 1. No acute cervical fracture is seen. 2. Degenerative changes, as detailed level by level above. Dictated and Authenticated by: Norman Langford MD. Ordering:SARWAT Watson MD
[2023-06-27] MEDS: ACETAMINOPHEN 1,000 MG/100 ML BTL 400 MG IVPB (03:00)
--- NOTE | 2023-06-27 03:47 | DI.VRAD_ITS ---
PROCEDURE INFORMATION: Exam: CT Left Lower Extremity Without Contrast, Hip Exam date and time: 06/27/2023 2:56 AM Age: 63 years old Clinical indication: Injury or trauma; Blunt trauma; Left; Injury date: 06/26/23; Injury details: Fall, eval hip for FX; Prior surgery; Surgery date: <1 month; Surgery type: Hip rodding TECHNIQUE: Imaging protocol: CT of the left lower extremity without contrast was performed. Exam focused on the hip. Radiation optimization: All CT scans at this facility use at least one of these dose optimization techniques: automated exposure control; mA and/or kV adjustment per patient size (includes targeted exams where dose is matched to clinical indication); or iterative reconstruction. COMPARISON: CR XR HIP LT COMPLETE AP PELVIS 06/27/2023 1:30 AM, x-ray pelvis and left hip May 18, 2023. FINDINGS: Bones/joints: Intramedullary renetta with dynamic hip screw in-situ transfixing a subacute comminuted intertrochanteric fracture through the proximal left femur, apparently acute at the time of the comparison exam from May 18, 2023. No new acute fracture or dislocation seen. No evidence of hardware breakage or loosening. Soft tissues: No gross soft tissue fluid collection demonstrated. Bowel: Sigmoid diverticulosis but no evidence of diverticulitis through the visualized segment. Urinary bladder: Prominent distension of the urinary bladder, nonspecific. IMPRESSION: 1. Intramedullary renetta with dynamic hip screw in-situ transfixing a subacute comminuted intertrochanteric fracture through the proximal left femur, apparently acute at the time of the comparison exam from May 18, 2023. No new acute fracture or dislocation seen. No evidence of hardware breakage or loosening. 2. Prominent distension of the urinary bladder, nonspecific. Dictated and Authenticated by: Norman Langford MD. Ordering:SARWAT Watson MD
== END 2023-06-27 06:56 | disposition home or self-care (01) ==
PROVIDERS: Emergency Provider Student in an Organized Health Care Education/Training Program; PCP Nurse Practitioner Family
DX: S01.01XA Laceration without foreign body of scalp, initial encounter (principal); M25.552 Pain in left hip; W18.12XA Fall from or off toilet with subsequent striking against object, initial encounter; F10.90 Alcohol use, unspecified, uncomplicated; K21.9 Gastro-esophageal reflux disease without esophagitis; F41.9 Anxiety disorder, unspecified; J44.9 Chronic obstructive pulmonary disease, unspecified; Z98.890 Other specified postprocedural states
CPT/HCPCS: 12002; 36416; 80053; 82962; 90471; 90715; 96365; 96366; 96368; 99285; 70450; 72125; 73502; 73700; 80320; 85025; 99284; J0131; J3411; J3480

== ENCOUNTER 2023-07-05 17:53 | Observation (INO) | payer BC, SELFPAY ==
[2023-07-05] VITALS (59 sets, daily range): BP systolic 62–166; BP diastolic 27–93; PULSE 70–106; RESP 13–30; TEMP 36.5; O2SAT 90–100
--- NOTE | 2023-07-05 17:45 | RT.EKG_ITS ---
APPROVED REPORT Exam: Resting ECG Reason for Exam: low BP one arm Patient Location: E HR:83 bpm ECG Measurements Heart Rate 83 AXIS TN 164 P 70 QRSd 136 QRS 57 QT 454 T -22 QTc 535 Conclusion Sinus rhythm...normal P axis, V-rate 60- 99 Probable left atrial enlargement...P >50mS, <-0.10mV V1 Right bundle branch block...QRSd>120, terminal axis(90,270) no change vs 05/18/23
--- NOTE | 2023-07-05 17:45 | DI.RAD_ITS ---
Exam(s) XR PORTABLE CHEST AP EXAM: XR PORTABLE CHEST AP CLINICAL HISTORY: low bp R arm TECHNIQUE: 2D digital imaging was performed. COMPARISON: CR XR CHEST 2V PA LATERAL from 05/09/2023 CR,XR XR PORTABLE CHEST AP from 05/18/2023 FINDINGS: EKG lie leads overlie the chest. There is a safety pin overlying the cardiac silhouette. LUNGS: Underlying fibrotic changes. Pulmonary vascular prominence and increased interstitial marking s suspicious for CHF. No pleural abnormality seen. HEART: Normal size. Mitral annular calcification. AORTA: Normal diameter. Calcification. BONES: Unremarkable for age. Soft tissues: Unremarkable. IMPRESSION: Findings suspicious for CHF. DATA REPOSITORY: RADIATION DOSE DELIVERED:
[2023-07-05] MEDS: Normal Saline 1,000 ML 1000 ML IV ×2 (18:26→19:22)
[2023-07-05 18:27] LABS: Abs Immature Grans 0.02 10^3/uL (0.0-0.06); Absolute Basophil Count 0.07 10^3/uL (0.0-0.2); Absolute Eosinophil Count 0.01 10^3/uL (0.0-0.7); Absolute Lymphocyte Count 1.46 10^3/uL (1.2-3.4); Absolute Monocyte Count 0.36 10^3/uL (0.1-0.8); Absolute Neutrophil Count 3.26 10^3/uL (1.2-6.7); Basophils % 1.4; Eosinophils % 0.2; HCT 33.9 % (36.0-46.0); HGB 11.2 g/dL (11.2-15.7); Immature Grans % 0.4; Lymphocytes % 28.2; MCH 33.4 pg (27.0-33.0); MCV 101 fL (80-95); MPV 9.5 fL (8.0-11.0); Monocytes % 6.9; Neutrophils % 62.9; Platelet Count 278 10^3/uL (130-400); RBC 3.35 10^6/uL (3.93-5.22); RDW 17.3 % (11.7-14.6); RDW-SD 63.9 fL; WBC 5.18 10^3/uL (4.4-10.8)
[2023-07-05 18:28] LABS: BE (Venous) 1 mmol/L (-2-3); HCO3 (Venous) 25 mmol/L (23-28); O2 Sat (Venous) 83 %; TCO2 (Venous) 23 mmol/L (24-29); pCO2 (Venous) 39 mmHg (41-51); pH (Venous) 7.42 (7.31-7.41); pO2 (Venous) 54 mmHg
[2023-07-05 18:31] LABS: Lactate 3.7 mmol/L (0.6-1.4)
[2023-07-05 18:46] LABS: ALT 24 U/L (14-59); AST 99 U/L (15-37); Albumin 2.7 g/dL (3.4-5.0); Alkaline Phosphatase 137 U/L (46-116); Anion Gap 18.3 mmol/L (3-11); BUN 5 mg/dL (7-18); Bilirubin, Total 0.5 mg/dL (0.2-1.0); CO2 23.7 mmol/L (21.0-32.0); CREATININE 0.6 mg/dL (0.55-1.02); Calcium 7.8 mg/dL (8.5-10.1); Chloride 95 mmol/L (98-107); Estimated GFR 101.42 (mL/min/1.73m2); Magnesium 1.4 mg/dL (1.8-2.4); Sodium 137 mmol/L (136-145); Total Protein 5.9 g/dL (6.4-8.2)
[2023-07-05 18:51] LABS: ETHANOL BLOOD 292.4 mg/dL (<10); Troponin I < 50 ng/L (< or =60)
[2023-07-05 18:52] LABS: Glucose 36 mg/dL (74-106); Potassium 2.3 mmol/L (3.5-5.1)
[2023-07-05] MEDS: Dextrose 50%-Water 25 GM/50 ML SYR (19:01)
--- NOTE | 2023-07-05 19:07 | W.ED.GENAD ---
Discharge Plan Disposition Patient Disposition: Admit to [facility] Discharge Details Clinical Impression: Alcoholic ketoacidosis, Hypomagnesemia, Hypoglycemia, Acute hypokalemia Primary Care Provider: MARIANO KEARNEY ED Provider: Fannie Root Home Meds and New Rx's Prescriptions: No Action ipratropium-albuterol 0.5 mg-3 mg(2.5 mg base)/3 mL solution for nebulization 3 ml inhalation Q4H PRN (Reason: wheezing) Qty: 540 8RF albuterol sulfate 90 mcg/actuation HFA aerosol inhaler 2 puff inhalation Q6H PRN (Reason: shortness of breath or wheezing) Qty: 8.5 12RF thiamine HCl (vitamin B1) 250 mg tablet 250 mg PO DAILY gabapentin 300 mg capsule 300 mg PO TID Stiolto Respimat 2.5-2.5 mcg/actuation mist 2 puff inhalation Q24H Qty: 4 12RF multivitamin [Multiple Vitamins] Tablet 1 tab PO DAILY Qty: 30 0RF magnesium 250 mg tablet 250 mg PO DAILY Qty: 20 0RF ibuprofen 600 mg tablet 600 mg PO TID PRNQty: 30 0RF omeprazole 40 mg capsule,delayed release(DR/EC) 40 mg PO DAILY tramadol 50 mg tablet 50 mg PO Q12H PRN Patient Comments: TAKE ONE TABLET BY MOUTH TWICE A DAY NEEDED FOR PAIN HPI General Date/Time Provider Initiated Documentation: 07/05/23 18:33. HPI Narrative: This 63-year-old female alcoholic presents with a chief complaint of left hip pain. Patient states she was drinking lemon drop martinis at home today and taking a nap in her bed. She woke lying on her left side. She said her hip felt funny and she got afraid so called 911. Her hip was operated on for about 2 months ago and is quite well-healed. The patient denies recent fever or URI symptoms. She has no chest pain or shortness of breath. She has no belly pain, nausea, vomiting, or diarrhea. She has no dysuria. She has no pedal edema or calf pain. There is no headache, sore throat, funny rashes, weakness, or dizziness. She is quite well-known to the emergency department for her pronounced alcohol abuse. She reports that she wanted to take a vacation from her medicines and has not taken them in several days. Related Data Home Medications Medication Instructions Recorded Confirmed multivitamin (Multiple Vitamins 1 tab PO DAILY #30 tabs 08/13/20 07/05/23 tablet) albuterol sulfate 90 mcg/actuation 2 puff inhalation Q6H PRN 01/18/22 07/05/23 aerosol inhaler shortness of breath or wheezing #8.5 grams magnesium 250 mg tablet 250 mg PO DAILY #20 tabs 11/09/22 07/05/23 thiamine HCl (vitamin B1) 250 mg 250 mg PO DAILY 04/19/23 07/05/23 tablet tiotropium 2.5 mcg-olodaterol 2.5 2 puff inhalation Q24H #4 grams 05/04/23 07/05/23 mcg/actuation mist for inhalation (Stiolto Respimat) ipratropium 0.5 mg-albuterol 3 mg 3 ml inhalation Q4H PRN wheezing 05/10/23 07/05/23 (2.5 mg base)/3 mL nebulization #540 mL soln ibuprofen 600 mg tablet 600 mg PO TID PRN #30 tabs 05/20/23 07/05/23 gabapentin 300 mg capsule 300 mg PO TID 06/06/23 07/05/23 omeprazole 40 mg capsule,delayed 40 mg PO DAILY 06/12/23 07/05/23 release tramadol 50 mg tablet 50 mg PO Q12H PRN 06/12/23 07/05/23 Previous Rx's Medication Instructions Recorded multivitamin (Multiple Vitamins 1 tab PO DAILY #30 tabs 08/13/20 tablet) albuterol sulfate 90 mcg/actuation 2 puff inhalation Q6H PRN 01/18/22 aerosol inhaler shortness of breath or wheezing #8.5 grams magnesium 250 mg tablet 250 mg PO DAILY #20 tabs 11/09/22 tiotropium 2.5 mcg-olodaterol 2.5 2 puff inhalation Q24H #4 grams 05/04/23 mcg/actuation mist for inhalation (Stiolto Respimat) ipratropium 0.5 mg-albuterol 3 mg 3 ml inhalation Q4H PRN wheezing 05/10/23 (2.5 mg base)/3 mL nebulization #540 mL soln ibuprofen 600 mg tablet 600 mg PO TID PRN #30 tabs 05/20/23 Allergies Allergy/AdvReac Type Severity Reaction Status Date / Time bacitracin Allergy Mild localized Verified 07/05/23 17:52 [From Neosporin redness ([id number])] neomycin Allergy Mild localized Verified 07/05/23 17:52 [From Neosporin redness ([id number])] polymyxin B Allergy Mild localized Verified 07/05/23 17:52 [From Neosporin redness ([id number])] General Stated Complaint: Orthopedic RAHEEM: 3 Review of Systems Narrative: See HPI Exam Narrative Exam Narrative: General/constitutional: Awake and alert female patient with alcohol on her breath. She is cooperative with questions. She is nontoxic-appearing. Skin: [place] warm dry HEENT: Normocephalic and atraumatic. Well-healed prior scalp lack with vincent intact. Neck: Supple and nontender to palpation Coronary: Regular rate and rhythm with no murmurs or rubs Chest: Nontender to compression Respiratory: Clear to auscultation bilaterally Abdomen: Atraumatic and nontender to palpation, soft with normoactive bowel sounds Pelvis: Stable to compression Extremities: Atraumatic and nontender to palpation with full range of motion. This includes left hip Neuro: Awake and alert, cranial nerves II through XII intact, strength 5 out of 5 all muscle groups, sensation intact, [id number] and Romberg within normal limits Course Vital Signs Vital signs: Vital Signs Temperature 36.5 C 07/05/23 17:48 Pulse 97 H 07/05/23 17:48 Respiratory Rate 18 07/05/23 17:48 Blood Pressure 105/53 L 07/05/23 17:48 Pulse Oximetry 97 07/05/23 17:48 Temperature 36.5 C 07/05/23 17:48 Pulse 97 H 07/05/23 18:19 Pulse 92 H 07/05/23 18:20 Respiratory Rate 18 07/05/23 18:20 Blood Pressure 90/53 L 07/05/23 18:19 Blood Pressure Mean 63 07/05/23 18:19 Pulse Oximetry 98 07/05/23 18:20 Lab/Test Results Lab/Test Results: Laboratory Tests Range/Units 07/05/23 18:20 WBC (4.4-10.8) 10^3/uL 5.18 RBC (3.93-5.22) 10^6/uL 3.35 L Hgb (11.2-15.7) g/dL 11.2 Hct (36.0-46.0) % 33.9 L MCV (80-95) fL 101 H MCH (27.0-33.0) pg 33.4 H MCHC (32.0-36.0) % 33.0 RDW (11.7-14.6) % 17.3 H Plt Count (130-400) 10^3/uL 278 MPV (8.0-11.0) fL 9.5 Immature Gran % 0.4 Neutrophils % 62.9 Lymphocytes % 28.2 Monocytes % 6.9 Eosinophils % 0.2 Basophils % 1.4 Nucleated RBC % (0.0-0.3) % 0.0 Absolute Neutrophils (1.2-6.7) 10^3/uL 3.26 Absolute Lymphocytes (1.2-3.4) 10^3/uL 1.46 Absolute Monocytes (0.1-0.8) 10^3/uL 0.36 Absolute Eosinophils (0.0-0.7) 10^3/uL 0.01 Absolute Basophils (0.0-0.2) 10^3/uL 0.07 VBG pH (7.31-7.41) 7.42 H VBG pCO2 (41-51) mmHg 39 L VBG pO2 mmHg 54 VBG HCO3 (23-28) mmol/L 25 VBG Total CO2 (24-29) mmol/L 23 L VBG O2 Saturation % 83 VBG Base Excess (-2-3) mmol/L 1 VBG Lactate (0.6-1.4) mmol/L 3.7 H* Sodium (136-145) mmol/L 137 Potassium (3.5-5.1) mmol/L 2.3 L* Chloride (98-107) mmol/L 95 L Carbon Dioxide (21.0-32.0) mmol/L 23.7 Anion Gap (3-11) mmol/L 18.3 H BUN (7-18) mg/dL 5 L Creatinine (0.55-1.02) mg/dL 0.6 Est GFR (CKD-EPI 2020) (mL/min/1.73m2) 101.42 Glucose (74-106) mg/dL 36 L* Calcium (8.5-10.1) mg/dL 7.8 L Magnesium (1.8-2.4) mg/dL 1.4 L Total Bilirubin (0.2-1.0) mg/dL 0.5 AST (15-37) U/L 99 H ALT (14-59) U/L 24 Alkaline Phosphatase (46-116) U/L 137 H Troponin I (< or =60) ng/L < 50 Total Protein (6.4-8.2) g/dL 5.9 L Albumin (3.4-5.0) g/dL 2.7 L Ethyl Alcohol (<10) mg/dL 292.4 H Medical Decision Making On arrival to the ED EMS told us the patient's blood pressure was in the 60s. She was mentating clearly, had warm skin, and was looking pretty good. We used a pediatric cuff and were getting similar numbers on the right-hand side. I could palpate a radial pulse on the left-hand side. The cuff was changed to the left-hand side and the patient's systolic blood pressure was 105. We will keep an eye on this. She does not know whether the blood pressures are typically different in 1 arm versus the other. I went back into reevaluate the patient and update her on her test results. This was probably around 2030. Capillary refill is diminished on both sides or both arms and she tells me that she has circulation problems I had a strong radial pulse now on the left-hand side and cannot palpate a radial pulse on the right-hand side. Her right hand is pink and warm with sensation intact. Of note, I saw on an old chest x-ray that it was noted that she has vascular calcifications in both subclavian arteries extending into her axillary arteries. She may need a little bit more of a vascular workup as an outpatient in her right arm. She certainly has some PAD there. 2129. I have told Dr. Gillis that I want to admit her. He is in the ED seeing another patient. I am going ahead and treating her for pneumonia as her Fluvid is negative. Her heart rate was 97 when she arrived and this with an elevated lactate could certainly indicate SIRS. Patient has had 60 mEq of potassium thus far. She is going to need more of this. We did correct her magnesium with a banana bag. The patient's low calcium corrects when you account for her low albumin. Her glucose on arrival was 37. 2210. Repeat lactate is 3.5. I am not crazy about dumping another liter into the patient if she potentially could have a little bit of vascular congestion as noted by the radiologist. Dr. Gillis is seeing the patient now and will decide whether he thinks we should admit her. 2220. Dr. Gillis has agreed to admit the patient. Medical Records Medical records reviewed: Yes I reviewed the patient's medical records. Imaging Data Radiologic Study: Imaging: X-Ray (Chest x-ray: 1. Bilateral perihilar and basilar interstitial and alveolar opacities concerning for pulmonary edema or pneumonia; 2. Central vascular congestive changes; 3. Suspect underlying COPD.4. Moderate to severe calcific atherosclerosis.) Lab Data Lab results reviewed: Yes I reviewed the patient's lab results. Lab results narrative: Patient's CBC is normal except for a crit of 33.9. Patient's potassium is 2.3 and her glucose 36. Anion gap is 18.3. Lactate is 3.7. I suspect this is all from alcoholic ketoacidosis. Patient's magnesium is 1.4 and she is getting this replaced with a banana bag of fluid. Her EtOH is 292. Troponin is normal. LFTs including AST of 99, alk phos of 137, total protein of 5.9, and albumin of 2.7. The remainder of the patient's labs are unremarkable. She did get some IV D50. Labs: Fluvid neg at 2130. Quality:SDOH Health Related Social Needs: Health related social needs risk of homeless PFSH All Active Problems (Updated 07/05/23 @ 22:21 by Fannie Root MD) Acute hypokalemia (Acute) Hypoglycemia (Acute) Hypomagnesemia (Acute) Alcoholic ketoacidosis (Acute) Laceration of scalp (Acute) Fall (Acute) Chronic left hip pain (Acute) Contusion of hip (Acute) Closed intertrochanteric fracture of left hip (Acute) s/p IMN fixation (05/18/23) Smoker (Acute) Closed fracture of left hip (Acute) Fall (Acute) Alcohol intoxication (Acute) Anxiety (Chronic) Cavitary lesion of lung (Acute) H/O ETOH abuse (Acute) Tobacco use disorder (Acute 01/28/14) Pleural effusion (Acute) Hypomagnesemia (Acute) Fluid overload (Acute) Chest pain due to GERD (Acute) Chest wall muscle strain (Acute) Hypokalemia (Acute) COPD exacerbation (Acute) Emphysema lung (Acute) Nicotine dependence, cigarettes, uncomplicated (Acute) Atherosclerosis (Acute) Gastric wall thickening (Acute) Stenosis of right internal carotid artery (Acute) Mass of upper lobe of right lung (Acute) Alcohol abuse (Chronic) Dehydration (Acute) Diarrhea (Acute) Hypomagnesemia (Chronic) B12 deficiency (Acute) Ascites (Acute) Chronic liver disease (Chronic) Weight loss, non-intentional (Acute) Macrocytic anemia (Acute) Early satiety (Acute) Folate deficiency (Acute) Hypomagnesemia (Acute) Hypokalemia (Acute) Leg pain (Acute) Cellulitis (Acute) Bilateral leg ulcer (Acute) Medical History Pulmonary nodule COPD (chronic obstructive pulmonary disease) Hypomagnesemia Cachexia Hepatic fibrosis Ulcer of lower extremity Hair loss Vitamin D deficiency Chest pain Gastroesophageal reflux disease Hx pulmonary embolism COPD (chronic obstructive pulmonary disease) Chronic vomiting Malnutrition Frequent falls Bilateral leg pain Pancreatitis Diastolic dysfunction Folate deficiency anemia Ascites Bilateral lower extremity edema Unintentional weight loss Alcohol abuse Tobacco dependence syndrome Tobacco abuse Surgical History punch biopsy, skin of ankle, right lateral (11/24/16) negative for malignancy, sparse inflammation and reactive blood vessels foot surgery (~2000) Ligation of fallopian tube (~1999) ENT/Nasal surgery (~2007) Family History Father Lung disease Cancer Lung Social History Smoking/Tobacco Use Status: Current every day Tobacco Type: cigarettes Tobacco: How many years used: 45 Quit status: considering quitting Second Hand Exposure: Yes Smoking risk assessment performed?: Yes Alcohol Intake: current Alcohol Intake frequency: 3 or more drinks per day Alcohol type: wine and hard liquor Counseling given: Yes Counseling provided: provider counseling Drug use: Rarely Substance use type: marijuana Housing: apartment Current gender identity: female Do you feel safe at home: Yes Do you feel safe in your relationship?: Yes Additional Social history: Lives alone in studio in [facility], 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 Grew up in [facility], sisters in area. History History Para 0 Hx # Term Pregnancies Multiple births Hx # Pregnancies Ectopic pregnancies AB induced Hx Number of Living Children AB spontaneous
[2023-07-05] MEDS: MAGNESIUM SULFATE 8.12 MEQ, MULTIVITAMIN 10 ML, THIAMINE 100 MG, FOLIC ACID 1 MG in Nor... 168.867 MG IV (19:22)
[2023-07-05] MEDS: POTASSIUM CHLORIDE 10 MEQ/100 ML BAG 100 MEQ IVPB ×2 (19:22→20:25)
[2023-07-05] MEDS: Potassium Chloride 20 MEQ TABCR 40 MEQ PO (19:23)
--- NOTE | 2023-07-05 20:10 | DI.VRAD_ITS ---
PROCEDURE INFORMATION: Exam: XR Chest Exam date and time: 07/05/2023 7:35 PM Age: 63 years old Clinical indication: Other: Low BP R arm TECHNIQUE: Imaging protocol: Radiologic exam of the chest. Views: 1 view. COMPARISON: CR XR PORTABLE CHEST AP 05/18/2023 3:48 AM FINDINGS: Lungs: Mild pulmonary hyperexpansion, suspect underlying changes of COPD. Mild-moderate central vascular congestion. Mild-moderate bilateral perihilar and basilar interstitial and alveolar opacities suggesting pulmonary edema or pneumonitis. Pleural spaces: No pleural effusion. No pneumothorax. Heart/Mediastinum: Heart size within normal limits for portable AP technique. No tracheal/mediastinal shift. Vasculature: Moderate-severe calcific atherosclerosis. Bones/joints: No acute osseous abnormalities are identified. IMPRESSION: 1. Bilateral perihilar and basilar interstitial and alveolar opacities concerning for pulmonary edema or pneumonia. 2. Central vascular congestive changes, possibly an element of CHF. 3. Suspect underlying COPD. 4. Moderate-severe calcific atherosclerosis. Dictated and Authenticated by: Nikunj Sánchez MD. Ordering:SIRISHA Greco MD
[2023-07-05 21:17] LABS: COVID-19 PCR Negative (Negative); Influenza A PCR Negative (Negative); Influenza B PCR Negative (Negative); RSV PCR Negative (Negative)
[2023-07-05 21:18] LABS: Source Nasopharynx
[2023-07-05] MEDS: AZITHROMYCIN 500 MG in Normal Saline 250 ML 250 MG IVPB (22:02)
[2023-07-05] MEDS: cefTRIAXone 1 GM/50 ML BAG IVPB (22:03)
[2023-07-05 22:08] LABS: Lactate 3.5 mmol/L (0.6-1.4)
[2023-07-05 22:09] LABS: Bilirubin Negative (Negative); Blood Negative (Negative); Clarity Clear (Clear); Glucose Negative (Negative); Ketones 40 mg/dL (Negative); Leukocyte Esterase Trace (Negative); Nitrite Negative (Negative); Urobilinogen 0.2 mg/dL (Up to 0.2); pH 5.5 (5-8)
[2023-07-05 22:19] LABS: Bacteria Rare HPF (Negative); C & S Indicated? Yes; Crystals Negative HPF (Negative); Epithelial Cells Rare HPF (Negative); Mucus Negative (Negative); Other Cells Rare Transitional (Negative); RBC Negative HPF (0-2); WBC 0-2 HPF (0-5)
--- NOTE | 2023-07-05 22:20 | HPE_ITS ---
Date of service: 07/05/23 Time of Service: 22:21 Assessment and Plan Assessment and plan (1) Alcohol intoxication: Status: Acute Assessment and plan: Alcoholism, manifesting with acute intoxication, acidosis, and multiple metabolic abnormalities, including hypokalemia, hypomag and hypoglycemia. I do not believe there is an infectious element -- antibiotics were administered to cover for possible pneumonia based on CXR report -- but there is no cough, fever, hypoxia or leukocytosis and (again to my read) the chest film is unchanged; I would not continue antibiotics at this point. Alcohol: CIWA K: replace and trend, Tely Mg: replace and trend Hypoglycemia: D5NS and trend ADs: per prior remains Full Code History of Present Illness History of Present Illness Chief Complaint: hip pain Narrative: 63 female alcoholic -- fell asleep on her left side and awoke with left hip pain. This is what precipitated visit to ER. In ER initial findings of note for BP 60/sys, but it was noted that she has asymmetric pulses and she was eutensive on left (film shows extensive calcifications of great vessels in chest). Lab work up of note for absence of leukocytosis; K 2.3; lactate 3.7; EtOH 292; glucose 36 and Mg 1.4. CXR shows bilateral perihilar, interstitial and alveolaropacities, suggestive of possible CHF vs pneumonia -- but to my read this is not significantly changed from prior. Patient has received K, Mg, D50 , Rocephin and Zithromax. I was asked to evaluate for admission. Note that patient's initial complaint -- hip pain -- is no longer active and she tells me she feels perfectly well. Also, that she has never had any trouble with alcohol withdrawal symptoms. Review of Systems Narrative: per HPI PFSH All Active Problems (Updated 07/05/23 @ 22:31 by Juan Francisco Gillis MD) Alcohol intoxication (Acute) Acute hypokalemia (Acute) Hypoglycemia (Acute) Hypomagnesemia (Acute) Alcoholic ketoacidosis (Acute) Laceration of scalp (Acute) Fall (Acute) Chronic left hip pain (Acute) Contusion of hip (Acute) Closed intertrochanteric fracture of left hip (Acute) s/p IMN fixation (05/18/23) Smoker (Acute) Closed fracture of left hip (Acute) Fall (Acute) Alcohol intoxication (Acute) Anxiety (Chronic) Cavitary lesion of lung (Acute) H/O ETOH abuse (Acute) Tobacco use disorder (Acute 01/28/14) Pleural effusion (Acute) Hypomagnesemia (Acute) Fluid overload (Acute) Chest pain due to GERD (Acute) Chest wall muscle strain (Acute) Hypokalemia (Acute) COPD exacerbation (Acute) Emphysema lung (Acute) Nicotine dependence, cigarettes, uncomplicated (Acute) Atherosclerosis (Acute) Gastric wall thickening (Acute) Stenosis of right internal carotid artery (Acute) Mass of upper lobe of right lung (Acute) Alcohol abuse (Chronic) Dehydration (Acute) Diarrhea (Acute) Hypomagnesemia (Chronic) B12 deficiency (Acute) Ascites (Acute) Chronic liver disease (Chronic) Weight loss, non-intentional (Acute) Macrocytic anemia (Acute) Early satiety (Acute) Folate deficiency (Acute) Hypomagnesemia (Acute) Hypokalemia (Acute) Leg pain (Acute) Cellulitis (Acute) Bilateral leg ulcer (Acute) Medical History Pulmonary nodule COPD (chronic obstructive pulmonary disease) Hypomagnesemia Cachexia Hepatic fibrosis Ulcer of lower extremity Hair loss Vitamin D deficiency Chest pain Gastroesophageal reflux disease Hx pulmonary embolism COPD (chronic obstructive pulmonary disease) Chronic vomiting Malnutrition Frequent falls Bilateral leg pain Pancreatitis Diastolic dysfunction Folate deficiency anemia Ascites Bilateral lower extremity edema Unintentional weight loss Alcohol abuse Tobacco dependence syndrome Tobacco abuse Surgical History punch biopsy, skin of ankle, right lateral (11/24/16) negative for malignancy, sparse inflammation and reactive blood vessels foot surgery (~2000) Ligation of fallopian tube (~1999) ENT/Nasal surgery (~2007) Family History Father Lung disease Cancer Lung Social History Smoking/Tobacco Use Status: Current every day Tobacco Type: cigarettes Tobacco: How many years used: 45 Quit status: considering quitting Second Hand Exposure: Yes Smoking risk assessment performed?: Yes Alcohol Intake: current Alcohol Intake frequency: 3 or more drinks per day Alcohol type: wine and hard liquor Counseling given: Yes Counseling provided: provider counseling Drug use: Rarely Substance use type: marijuana Housing: apartment Current gender identity: female Do you feel safe at home: Yes Do you feel safe in your relationship?: Yes Additional Social history: Lives alone in studio in [facility], 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 Grew up in [facility], sisters in area. History History 2 Para 0 Hx # Term Pregnancies Multiple births Hx # Pregnancies Ectopic pregnancies AB induced Hx Number of Living Children AB spontaneous Meds Allergies and Home Medications Allergies Allergy/AdvReac Type Severity Reaction Status Date / Time bacitracin Allergy Mild localized Verified 07/05/23 17:52 [From Neosporin redness ([id number])] neomycin Allergy Mild localized Verified 07/05/23 17:52 [From Neosporin redness ([id number])] polymyxin B Allergy Mild localized Verified 07/05/23 17:52 [From Neosporin redness ([id number])] Home Medications Medication Instructions Recorded Confirmed Type multivitamin (Multiple Vitamins 1 tab PO DAILY #30 tabs 08/13/20 07/05/23 Rx tablet) albuterol sulfate 90 mcg/actuation 2 puff inhalation Q6H PRN 01/18/22 07/05/23 Rx aerosol inhaler shortness of breath or wheezing #8.5 grams magnesium 250 mg tablet 250 mg PO DAILY #20 tabs 11/09/22 07/05/23 Rx thiamine HCl (vitamin B1) 250 mg 250 mg PO DAILY 04/19/23 07/05/23 History tablet tiotropium 2.5 mcg-olodaterol 2.5 2 puff inhalation Q24H #4 grams 05/04/23 07/05/23 Rx mcg/actuation mist for inhalation (Stiolto Respimat) ipratropium 0.5 mg-albuterol 3 mg 3 ml inhalation Q4H PRN wheezing 05/10/23 07/05/23 Rx (2.5 mg base)/3 mL nebulization #540 mL soln ibuprofen 600 mg tablet 600 mg PO TID PRN #30 tabs 05/20/23 07/05/23 Rx gabapentin 300 mg capsule 300 mg PO TID 06/06/23 07/05/23 History omeprazole 40 mg capsule,delayed 40 mg PO DAILY 06/12/23 07/05/23 History release tramadol 50 mg tablet 50 mg PO Q12H PRN 06/12/23 07/05/23 History Results Labs 07/05/23 18:20 07/05/23 18:20 Labs: Laboratory Results - last 24 hr 07/05/23 07/05/23 07/05/23 18:20 20:37 21:28 WBC 5.18 RBC 3.35 L Hgb 11.2 Hct 33.9 L MCV 101 H MCH 33.4 H MCHC 33.0 RDW 17.3 H Plt Count 278 MPV 9.5 Immature Gran % 0.4 Neutrophils % 62.9 Lymphocytes % 28.2 Monocytes % 6.9 Eosinophils % 0.2 Basophils % 1.4 Nucleated RBC % 0.0 Absolute Neutrophils 3.26 Absolute Lymphocytes 1.46 Absolute Monocytes 0.36 Absolute Eosinophils 0.01 Absolute Basophils 0.07 VBG pH 7.42 H VBG pCO2 39 L VBG pO2 54 VBG HCO3 25 VBG Total CO2 23 L VBG O2 Saturation 83 VBG Base Excess 1 VBG Lactate 3.7 H* 3.5 H* Sodium 137 Potassium 2.3 L* Chloride 95 L Carbon Dioxide 23.7 Anion Gap 18.3 H BUN 5 L Creatinine 0.6 Est GFR (CKD-EPI 2020) 101.42 Glucose 36 L* Calcium 7.8 L Magnesium 1.4 L Total Bilirubin 0.5 AST 99 H ALT 24 Alkaline Phosphatase 137 H Troponin I < 50 Total Protein 5.9 L Albumin 2.7 L Urine Color Yellow Urine Clarity Clear Urine pH 5.5 Ur Specific [place] 1.010 Urine Protein Negative Urine Ketones 40 H Urine Blood Negative Urine Nitrite Negative Urine Bilirubin Negative Urine Urobilinogen 0.2 Ur Leukocyte Esterase Trace H Urine RBC Negative Urine WBC 0-2 Ur Epithelial Cells Rare Urine Crystals Negative Urine Bacteria Rare Urine Mucus Negative Urine Other Rare Transitional Ur Culture Indicated? Yes Urine Glucose Negative Ethyl Alcohol 292.4 H COVID-19 Source Nasopharynx SARS-CoV-2 (PCR) Negative Influenza Type A (PCR) Negative Influenza Type B (PCR) Negative RSV (PCR) Negative Last Vital Signs Temp 36.5 C 07/05/23 17:48 Pulse 88 07/05/23 20:45 Resp 17 07/05/23 20:50 BP 166/75 H 07/05/23 20:45 Pulse Ox 94 07/05/23 20:50 PAWSS Have you Been Recently Intoxicated or Drunk Within the Last 30 days?: Yes Have you Ever Experienced Previous Episodes of Alcohol Withdrawal?: Yes Have you ever Experienced Withdrawal Seizures?: No Have you ever Experienced Delirium Tremens(DT)s?: No Have you ever undergone Alcohol Rehabilitation Treatment (i.e, inpt ot outpatient treatment programs)?: No Have you ever Experienced Blackouts?: No Have you ever Combined Alcohol with other Downers within the last 90 days?: No Have you ever Combined Alcohol with any other Substance of Abuse during the last 90 days?: No Positive Blood Alcohol level on Presentation? [PCS.BAL]: Yes Evidence of Increased Autonomic Activity (i.e. HR>120, tremor, sweating, agitation, nausea)?: No Result: 3 Time Spent Time spent with Patient: 40-54 minutes Time was spent: preparing to see the patient(eg.review tests), obtaining and/or reviewing separately otained hiistory, ordering medications,tests, procedures, referring, communicating with other health career information specialist and indepentently interpreting results
--- NOTE | 2023-07-05 23:00 | NUR.NOTE ---
Nursing Note: Discussed with offgoing RN drop in Potassium from 3.9 to 3.3 and was assured that this was discussed with the day hospitalist and no further interventions were necessary.
[2023-07-06] VITALS (9 sets, daily range): BP systolic 101–168; BP diastolic 72–88; PULSE 83–112; RESP 16–20; TEMP 36.9–37.6; O2SAT 93–100
[2023-07-06] MEDS: POTASSIUM CHLORIDE/D5-0.45NACL 1,000 ML 100 MEQ IV ×2 (02:23→16:21)
[2023-07-06 06:58] LABS: Anion Gap 12.4 mmol/L (3-11); BUN 3 mg/dL (7-18); CO2 27.6 mmol/L (21.0-32.0); CREATININE 0.8 mg/dL (0.55-1.02); Calcium 7.9 mg/dL (8.5-10.1); Chloride 95 mmol/L (98-107); Estimated GFR 83.26 (mL/min/1.73m2); Glucose 139 mg/dL (74-106); Magnesium 1.2 mg/dL (1.8-2.4); Sodium 135 mmol/L (136-145)
[2023-07-06 07:13] LABS: Potassium 2.5 mmol/L (3.5-5.1)
[2023-07-06] MEDS: MAGNESIUM SULFATE 2 GM/50 ML BAG IVPB (08:12)
[2023-07-06] MEDS: POTASSIUM CHLORIDE 10 MEQ/100 ML BAG 100 MEQ IVPB (08:30)
[2023-07-06] MEDS: Potassium Chloride 20 MEQ TABCR 40 MEQ PO ×2 (11:31→13:12)
[2023-07-06] MEDS: Pantoprazole 40 MG TABCR PO (12:39)
[2023-07-06 13:03] LABS: Anion Gap 12.7 mmol/L (3-11); BUN 3 mg/dL (7-18); CO2 27.3 mmol/L (21.0-32.0); CREATININE 0.8 mg/dL (0.55-1.02); Calcium 7.8 mg/dL (8.5-10.1); Chloride 92 mmol/L (98-107); Estimated GFR 83.26 (mL/min/1.73m2); Glucose 202 mg/dL (74-106); Magnesium 1.7 mg/dL (1.8-2.4); Sodium 132 mmol/L (136-145)
[2023-07-06 13:06] LABS: Potassium 2.5 mmol/L (3.5-5.1)
--- NOTE | 2023-07-06 15:28 | AC.ASSESS ---
Asthma Clinic Visit
--- NOTE | 2023-07-06 15:28 | CHAPLAIN ---
Fannie was sitting up in bed when I visited. I introduced myself, explained my role and offered support. Fannie was pleasant and engaged in a conversation. She lives in [facility] and has been in touch with family.
--- NOTE | 2023-07-06 17:04 | PDOC.CMIN ---
Date of service: 07/06/23 Time of Service: 17:04 Care Management Initial Assmt Initial Assessment REASON FOR HOSPITALIZATION:: Alcohol Intoxication PREVIOUS FUNCTIONAL STATUS/SOCIAL/FAMILY SUPPORTS:: Fannie resides alone in Senior Housing in [facility], she shares that she has supportive neighbors and utilizes [facility] when able to get in and out of the bus. Currently, she reports she is unable so her older sister is helping transport her to appointments. Fannie shares that she is retired from the [employer] and continues to have FEP BC coverage. CURRENT FUNCTIONAL STATUS:: Fannie was sitting up in bed, fully engaged with this teletypewriter installer. She reported being uninterested in MOW because she is fussy and would not want to waste it. She verbalized understanding of her treatment (stabilize electrolytes) and plan for discharge. She shares that her FWW and W/C are at home and troubleshoots with this teletypewriter installer about getting home safely; opting for [facility]. ADVANCE DIRECTIVES:: None on file. Has patient been provided with info about the portal/API?: No Did the patient sign up for the portal?: No (Refused ) INSURANCE COVERAGE / FINANCIAL ISSUES:: [employer] FEP CURRENT HOME/COMMUNITY SERVICES/EQUIPMENT:: [facility], FWW, W/C PRIMARY CARE PHYSICIAN:: [employer]pper POTENTIAL DISCHARGE NEEDS:: Follow up appointments, supportive transport PATIENT/FAMILY EDUCATION NEEDS:: Review discharge instructions, discuss Ask Me Three. ANTICIPATED BARRIERS TO DISCHARGE:: None identified. TRANSPORTATION:: [facility] PLAN:: Fannie will return home when ready, she will transport via [facility], coordinated by KARL MOSQUERA. She will follow up with her PCP and plan of care as prescribed and resume home health RN and PT (no order needed observation status). [facility] All Active Problems (Updated 07/07/23 @ 07:45 by Ck Haas MD) Alcohol intoxication (Acute) Alcohol intoxication (Acute) Acute hypokalemia (Acute) Hypoglycemia (Acute) Hypomagnesemia (Acute) Alcoholic ketoacidosis (Acute) Laceration of scalp (Acute) Fall (Acute) Chronic left hip pain (Acute) Contusion of hip (Acute) Closed intertrochanteric fracture of left hip (Acute) s/p IMN fixation (05/18/23) Smoker (Acute) Closed fracture of left hip (Acute) Fall (Acute) Alcohol intoxication (Acute) Anxiety (Chronic) Cavitary lesion of lung (Acute) H/O ETOH abuse (Acute) Tobacco use disorder (Acute 01/28/14) Pleural effusion (Acute) Hypomagnesemia (Acute) Fluid overload (Acute) Chest pain due to GERD (Acute) Chest wall muscle strain (Acute) Hypokalemia (Acute) COPD exacerbation (Acute) Emphysema lung (Acute) Nicotine dependence, cigarettes, uncomplicated (Acute) Atherosclerosis (Acute) Gastric wall thickening (Acute) Stenosis of right internal carotid artery (Acute) Mass of upper lobe of right lung (Acute) Alcohol abuse (Chronic) Dehydration (Acute) Diarrhea (Acute) Hypomagnesemia (Chronic) B12 deficiency (Acute) Ascites (Acute) Chronic liver disease (Chronic) Weight loss, non-intentional (Acute) Macrocytic anemia (Acute) Early satiety (Acute) Folate deficiency (Acute) Hypomagnesemia (Acute) Hypokalemia (Acute) Leg pain (Acute) Cellulitis (Acute) Bilateral leg ulcer (Acute) Medical History Pulmonary nodule COPD (chronic obstructive pulmonary disease) Hypomagnesemia Cachexia Hepatic fibrosis Ulcer of lower extremity Hair loss Vitamin D deficiency Chest pain Gastroesophageal reflux disease Hx pulmonary embolism COPD (chronic obstructive pulmonary disease) Chronic vomiting Malnutrition Frequent falls Bilateral leg pain Pancreatitis Diastolic dysfunction Folate deficiency anemia Ascites Bilateral lower extremity edema Unintentional weight loss Alcohol abuse Tobacco dependence syndrome Tobacco abuse Surgical History punch biopsy, skin of ankle, right lateral (11/24/16) negative for malignancy, sparse inflammation and reactive blood vessels foot surgery (~2000) Ligation of fallopian tube (~1999) ENT/Nasal surgery (~2007) Family History Father Lung disease Cancer Lung Social History Smoking/Tobacco Use Status: Current every day Tobacco Type: cigarettes Tobacco: How many years used: 45 Quit status: considering quitting Second Hand Exposure: Yes Smoking risk assessment performed?: Yes Alcohol Intake: current Alcohol Intake frequency: 3 or more drinks per day Alcohol type: wine and hard liquor Counseling given: Yes Counseling provided: provider counseling Drug use: Rarely Substance use type: marijuana Housing: apartment Current gender identity: female Do you feel safe at home: Yes Do you feel safe in your relationship?: Yes Additional Social history: Lives alone in studio in [facility], 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 Grew [place] in [place], sisters in area. History History Para 0 Hx # Term Pregnancies Multiple births Hx # Pregnancies Ectopic pregnancies AB induced Hx Number of Living Children AB spontaneous SDOH(Care Management) Screening Will the Patient Participate in the Screening?: Yes Do you worry about having a steady place to live?: no Problems where you live: Carbon monoxide detectors missing or not working In the past 12 months, have you had to go without electric, gas, oil or water in your home?: no Have you or anyone in your house had to go without enough food to eat?: no Has lack of transportation kept you from medical appointments or from doing things needed for daily living?: no Has anyone in your support network made you feel unsafe for any reason?: no Health Related Social Needs Health related social needs: inadequate housing(Z59.1)
[2023-07-07] MEDS: POTASSIUM CHLORIDE/D5-0.45NACL 1,000 ML 100 MEQ IV (00:35)
[2023-07-07 00:57] VITALS: PULSE 82
[2023-07-07 03:34] VITALS: BP 169/91; PULSE 97; RESP 16; TEMP 36.9; O2SAT 97
[2023-07-07] MEDS: Pantoprazole 40 MG TABCR PO (06:31)
--- NOTE | 2023-07-07 07:43 | PGE_ITS ---
Date of Service Date of service: 07/06/23 Time of Service: 14:00 Assessment and Plan Assessment and plan (1) Acute hypokalemia: Status: Acute Assessment and plan: -Patient initially found to have potassium of 2.5 in the emergency apartment which was repleted -However, this morning her potassium was 2.5 despite IV and p.o. repletion remains 2.5 this afternoon -Will continue to replete potassium and recheck in the morning (2) Hypomagnesemia: Status: Acute Assessment and plan: - Patient's magnesium was also low this morning at 1.2 was repleted -B1.7 this afternoon -Will replete in the interest of assisting and hypokalemia -Follow-up a.m. (3) Alcohol intoxication: Status: Acute Assessment and plan: - Patient was intoxicated on presentation to the emergency department -She does not have any history of alcohol withdrawal -She was sober this morning -Will continue to monitor for withdrawal Subjective Subjective Interval history since last seen: Patient states that she is feeling much better today as compared to admission. She understands that we are continuing to manage her electrolyte imbalance and has no other complaints or concerns Exam Narrative Exam Narrative: Well-appearing female laying in bed in no acute distress, ANO x 4, heart regular rhythm, lungs clear to auscultation bilaterally, abdomen soft, nontender, Objective Last Vital Signs Temp 98.5 F 07/07/23 03:34 Pulse 97 H 07/07/23 03:34 Resp 16 07/07/23 03:34 BP 169/91 H 07/07/23 03:34 Pulse Ox 97 07/07/23 03:34 Laboratory Results - last 24 hr 07/06/23 12:32 Sodium 132 L Potassium 2.5 L* Chloride 92 L Carbon Dioxide 27.3 Anion Gap 12.7 H BUN 3 L Creatinine 0.8 Est GFR (CKD-EPI 2020) 83.26 Glucose 202 H Calcium 7.8 L Magnesium 1.7 L PAWSS Have you Been Recently Intoxicated or Drunk Within the Last 30 days?: Yes Have you Ever Experienced Previous Episodes of Alcohol Withdrawal?: No Have you ever Experienced Withdrawal Seizures?: No Have you ever Experienced Delirium Tremens(DT)s?: No Have you ever undergone Alcohol Rehabilitation Treatment (i.e, inpt ot outpatient treatment programs)?: No Have you ever Experienced Blackouts?: Yes Have you ever Combined Alcohol with other Downers within the last 90 days?: No Have you ever Combined Alcohol with any other Substance of Abuse during the last 90 days?: No Positive Blood Alcohol level on Presentation? [PCS.BAL]: Yes Evidence of Increased Autonomic Activity (i.e. HR>120, tremor, sweating, agitation, nausea)?: No Result: 3 Time Spent with Patient Time Spent with Patient: >50 minutes Time was spent: preparing to see the patient(eg.review tests), obtaining and/or reviewing separately otained hiistory, ordering medications,tests, procedures, referring, communicating with other health health care sanitary technician, indepentently interpreting results, counseling the patient and care coordination
[2023-07-07 07:49] VITALS: BP 140/86; PULSE 90; RESP 16; TEMP 36.6; O2SAT 97
[2023-07-07 07:52] LABS: Anion Gap 8.9 mmol/L (3-11); BUN 1 mg/dL (7-18); CO2 24.1 mmol/L (21.0-32.0); CREATININE 0.6 mg/dL (0.55-1.02); Calcium 8.2 mg/dL (8.5-10.1); Chloride 97 mmol/L (98-107); Estimated GFR 101.42 (mL/min/1.73m2); Glucose 105 mg/dL (74-106); Magnesium 1.4 mg/dL (1.8-2.4); Potassium 3.8 mmol/L (3.5-5.1); Sodium 130 mmol/L (136-145)
--- NOTE | 2023-07-07 08:22 | DSE_ITS ---
Date of service: 07/07/23 Time of Service: 08:23 DS: Diagnosis Discharge Diagnosis (1) Acute hypokalemia: Status: Acute Asessment and Plan: -Patient initially found to have potassium of 2.5 in the emergency apartment which was repleted -However, this morning her potassium was 2.5 despite IV and p.o. repletion remains 2.5 PM 3/6 -K 3.7 am of discharge (2) Hypomagnesemia: Status: Acute Asessment and Plan: -repleated (3) Alcohol intoxication: Status: Acute Discharge Plan Disposition Patient Disposition: Home Condition: Good Discharge Details Reason For Visit: Alcohol Intoxication Admit Date/Time: 07/05/23 22:39 Admit Provider: Juan Francisco Gillis Attending Provider: Juan Francisco Gillis Primary Care Provider: MARIANO KEARNEY Hospital Course Hospital Course: Patient initially presented to the hospital intoxicated complaining of left hip pain. However, shortly after arrival she did not have any complaints of hip pain but was found to have hyperglycemia, hypomagnesemia and hypokalemia likely secondary to alcohol intake. During hospitalization patient had magnesium and potassium repleted, as well as glucose all of which remained stable after patient had repletion and was able to tolerate p.o. intake on her own. She did not exhibit any withdrawal symptoms during hospitalization. Given that her electrolyte abnormalities resolved it was determined that she was stable for discharge home. Home Meds and New Rx's Prescriptions: Continued ipratropium-albuterol 0.5 mg-3 mg(2.5 mg base)/3 mL solution for nebulization 3 ml inhalation Q4H PRN (Reason: wheezing) Qty: 540 8RF albuterol sulfate 90 mcg/actuation HFA aerosol inhaler 2 puff inhalation Q6H PRN (Reason: shortness of breath or wheezing) Qty: 8.5 12RF thiamine HCl (vitamin B1) 250 mg tablet 250 mg PO DAILY gabapentin 300 mg capsule 300 mg PO TID Stiolto Respimat 2.5-2.5 mcg/actuation mist 2 puff inhalation Q24H Qty: 4 12RF multivitamin [Multiple Vitamins] Tablet 1 tab PO DAILY Qty: 30 0RF magnesium 250 mg tablet 250 mg PO DAILY Qty: 20 0RF ibuprofen 600 mg tablet 600 mg PO TID PRNQty: 30 0RF omeprazole 40 mg capsule,delayed release(DR/EC) 40 mg PO DAILY tramadol 50 mg tablet 50 mg PO Q12H PRN Patient Comments: TAKE ONE TABLET BY MOUTH TWICE A DAY NEEDED FOR PAIN Discharge Instructions Instructions: Hypokalemia (DC), Hypomagnesemia (DC) Activity:: Activity as Tolerated Equipment/Supplies:: No Equipment Needed Diet:: As Tolerated Discharge Orders Discharge Orders: Discharge Order (Routine); Ordered 07/07/23 Ordered By: Ck Haas DS: Summary Time Spent with Patient providing and/or coordinating discharge services: Greater than 30 minutes Status at Discharge Functional status at discharge: independent ambulation Overall status at discharge: patient is back to baseline Mental Status: mental status grossly normal Speech and Movement: speech and movement normal Mood: congruent mood Affect: normal affect Quality:SDOH Health Related Social Needs: Health related social needs inadequate housing Exam Narrative Exam Narrative: Well-appearing female laying in bed in no acute distress, ANO x 4, heart regular rhythm, lungs clear to auscultation bilaterally, abdomen soft, nontender, Psych Mental Status: mental status grossly normal Speech and Movement: speech and movement normal Mood: congruent mood Affect: normal affect DS: Data Vitals/I&O Vitals and I&O: Vital Signs Temperature 97.9 F 07/07/23 07:49 Temperature Source Tympanic 07/07/23 07:49 Pulse 90 07/07/23 07:49 Pulse Rhythm Irregular 07/07/23 07:49 Pulse 91 H 07/05/23 23:46 Respiratory Rate 16 07/07/23 07:49 Respiratory Effort Normal, Non-Labored 07/07/23 07:49 Respiratory Depth Normal 07/07/23 07:49 Respiratory Pattern Normal 07/07/23 07:49 Blood Pressure 140/86 07/07/23 07:49 Blood Pressure Mean 66 07/05/23 23:46 Pulse Oximetry 97 07/07/23 07:49 Oxygen Delivery Method Room Air 07/07/23 07:49 Oxygen Flow Rate 0 07/07/23 07:49 Pain Level 0 07/07/23 07:49 Comment Blood pressure in right arm: 116/80. Blood pressure in the left arm: 165/91. 07/06/23 23:39 Intake & Output 07/06/23 07/07/23 07/07/23 17:59 05:59 17:59 Intake Total 1750 / 1750 1000 / 1000 Output Total 750 / 750 800 / 1550 Balance 1000 / 1000 -800 / 200 1000 / 1000 Intake: IV 1150 / 1150 1000 / 1000 Oral 600 / 600 Output: Urine 750 / 750 800 / 1550 Other: Urine Color Yellow Pale Urine Appearance Clear Clear Clear Urine Odor Normal Stool Size Moderate Small Stool Characteristics Soft Liquid Voiding Methods Bedside Commode Bedside Commode Data Completed and Pending Labs on day of discharge: Labs from last 24 hours 07/07/23 07/06/23 07:26 12:32 Sodium 130 L 132 L Potassium 3.8 D 2.5 L* Chloride 97 L 92 L Carbon Dioxide 24.1 27.3 Anion Gap 8.9 12.7 H BUN 1 L 3 L Creatinine 0.6 0.8 Est GFR (CKD-EPI 2020) 101.42 83.26 Glucose 105 202 H Calcium 8.2 L 7.8 L Magnesium 1.4 L 1.7 L 07/05/23 21:28 Urine - Reflex from Urine Culture - Pending Preliminary micro results at discharge 07/05/23 21:28 Urine Culture - Pending Urine - Reflex from [facility] All Active Problems (Updated 07/07/23 @ 07:45 by Ck Haas MD) Alcohol intoxication (Acute) Alcohol intoxication (Acute) Acute hypokalemia (Acute) Hypoglycemia (Acute) Hypomagnesemia (Acute) Alcoholic ketoacidosis (Acute) Laceration of scalp (Acute) Fall (Acute) Chronic left hip pain (Acute) Contusion of hip (Acute) Closed intertrochanteric fracture of left hip (Acute) s/p IMN fixation (05/18/23) Smoker (Acute) Closed fracture of left hip (Acute) Fall (Acute) Alcohol intoxication (Acute) Anxiety (Chronic) Cavitary lesion of lung (Acute) H/O ETOH abuse (Acute) Tobacco use disorder (Acute 01/28/14) Pleural effusion (Acute) Hypomagnesemia (Acute) Fluid overload (Acute) Chest pain due to GERD (Acute) Chest wall muscle strain (Acute) Hypokalemia (Acute) COPD exacerbation (Acute) Emphysema lung (Acute) Nicotine dependence, cigarettes, uncomplicated (Acute) Atherosclerosis (Acute) Gastric wall thickening (Acute) Stenosis of right internal carotid artery (Acute) Mass of upper lobe of right lung (Acute) Alcohol abuse (Chronic) Dehydration (Acute) Diarrhea (Acute) Hypomagnesemia (Chronic) B12 deficiency (Acute) Ascites (Acute) Chronic liver disease (Chronic) Weight loss, non-intentional (Acute) Macrocytic anemia (Acute) Early satiety (Acute) Folate deficiency (Acute) Hypomagnesemia (Acute) Hypokalemia (Acute) Leg pain (Acute) Cellulitis (Acute) Bilateral leg ulcer (Acute) Medical History Pulmonary nodule COPD (chronic obstructive pulmonary disease) Hypomagnesemia Cachexia Hepatic fibrosis Ulcer of lower extremity Hair loss Vitamin D deficiency Chest pain Gastroesophageal reflux disease Hx pulmonary embolism COPD (chronic obstructive pulmonary disease) Chronic vomiting Malnutrition Frequent falls Bilateral leg pain Pancreatitis Diastolic dysfunction Folate deficiency anemia Ascites Bilateral lower extremity edema Unintentional weight loss Alcohol abuse Tobacco dependence syndrome Tobacco abuse Surgical History punch biopsy, skin of ankle, right lateral (11/24/16) negative for malignancy, sparse inflammation and reactive blood vessels foot surgery (~2000) Ligation of fallopian tube (~1999) ENT/Nasal surgery (~2007) Family History Father Lung disease Cancer Lung Social History Smoking/Tobacco Use Status: Current every day Tobacco Type: cigarettes Tobacco: How many years used: 45 Quit status: considering quitting Second Hand Exposure: Yes Smoking risk assessment performed?: Yes Alcohol Intake: current Alcohol Intake frequency: 3 or more drinks per day Alcohol type: wine and hard liquor Counseling given: Yes Counseling provided: provider counseling Drug use: Rarely Substance use type: marijuana Housing: apartment Current gender identity: female Do you feel safe at home: Yes Do you feel safe in your relationship?: Yes Additional Social history: 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 Grew up in [facility], sisters in area. History History Para 0 Hx # Term Pregnancies Multiple births Hx # Pregnancies Ectopic pregnancies AB induced Hx Number of Living Children AB spontaneous Time Spent with Patient Time Spent with Patient: <45 minutes Time was spent: preparing to see the patient(eg.review tests), obtaining and/or reviewing separately otained hiistory, ordering medications,tests, procedures, referring, communicating with other health continuum of care manager, indepentently interpreting results, counseling the patient and care coordination
[2023-07-07] MEDS: Magnesium Lactate-SR 84 MG TABCR PO (09:41)
--- NOTE | 2023-07-07 18:29 | PDOC.CMDIS ---
Date of service: 07/07/23 Time of Service: 18:29 Care Management Discharge Plan Reason for Hospitalization: Alcohol Intoxication Discharge Plan: Fannie will return home when ready, she will transport via [facility], coordinated by KARL MOSQUERA. She will follow up with her PCP and plan of care as prescribed. Patient/Family Education Needs: Review discharge instructions, discuss Ask Me Three. Services Needed at Discharge: Transportation SDOH Health Related Social Needs: Health related social needs inadequate housing Health related social needs: inadequate housing(Z59.1) Referrals and interventions: [facility].
== END 2023-07-07 10:30 | disposition home or self-care (01) ==
LOC: ER 07-06 00:03 → MS 07-06 00:05
PROVIDERS: Family Medicine; Admitting Provider General Practice; Emergency Provider Emergency Medicine; PCP Nurse Practitioner Family; Visit Provider General Practice
DX: E87.6 Hypokalemia (principal); E83.42 Hypomagnesemia; F10.229 Alcohol dependence with intoxication, unspecified; Y90.8 Blood alcohol level of 240 mg/100 ml or more; E16.2 Hypoglycemia, unspecified; E87.29 Other acidosis; M25.552 Pain in left hip; F41.9 Anxiety disorder, unspecified; F17.210 Nicotine dependence, cigarettes, uncomplicated; J43.9 Emphysema, unspecified; I65.21 Occlusion and stenosis of right carotid artery; Z79.899 Other long term (current) drug therapy
CPT/HCPCS: 00123; 36415; 36416; 80048; 80053; 82805; 82962; 87637; 93005; 96365; 96366; 96367; 96368; 96376; 99285; 71045; 80320; 81003; 81015; 83605; 83735; 84484; 85025; 87086; 93010; 99223; 99233; 99238; G0378; J0456; J0696; J3411; J3475; J3480

== ENCOUNTER 2023-07-12 19:37 | Emergency (ER) | payer BC, SELFPAY ==
[2023-07-12 19:35] VITALS: BP 133/98; PULSE 124; RESP 18; TEMP 36.5; O2SAT 97
--- NOTE | 2023-07-12 19:45 | DI.RAD_ITS ---
Exam(s) XR PELVIS AP XR FEMUR LT EXAM: XR PELVIS AP and XR femur LT CLINICAL HISTORY: left hip pain. TECHNIQUE: 2D digital imaging was performed.Five images were obtained. COMPARISON: CR,XR XR HIP LT COMPLETE AP PELVIS from 05/18/2023 CR,XR XR HIP LT COMPLETE AP PELVIS from 06/12/2023 CR,XR XR HIP LT COMPLETE AP PELVIS from 06/27/2023 FINDINGS: BONES: There is again seen an intramedullary renetta transfixing the comminuted intertrochanteric fractur e of the left femur. There is no change in alignment of the fracture components or the orthopedic rajput rdware. No new fracture is identified. No bony destructive lesion is seen. JOINTS: No dislocation present. No joint space narrowing is present. SOFT TISSUE: Vascular calcifications are seen in the soft tissues. IMPRESSION: 1. No change in the internally fixed comminuted left intertrochanteric fracture. 2. No acute fracture or dislocation. DATA REPOSITORY: RADIATION DOSE DELIVERED:
--- NOTE | 2023-07-12 19:55 | W.ED.GENAD ---
Discharge Plan Disposition Patient Disposition: Home Condition: Improving Discharge Details Chief Complaint: Orthopedic Clinical Impression: Hip pain Primary Care Provider: MARIANO KEARNEY ED Provider: Sesar Solomon Home Meds and New Rx's Prescriptions: No Action ipratropium-albuterol 0.5 mg-3 mg(2.5 mg base)/3 mL solution for nebulization 3 ml inhalation Q4H PRN (Reason: wheezing) Qty: 540 8RF albuterol sulfate 90 mcg/actuation HFA aerosol inhaler 2 puff inhalation Q6H PRN (Reason: shortness of breath or wheezing) Qty: 8.5 12RF thiamine HCl (vitamin B1) 250 mg tablet 250 mg PO DAILY gabapentin 300 mg capsule 300 mg PO TID Stiolto Respimat 2.5-2.5 mcg/actuation mist 2 puff inhalation Q24H Qty: 4 12RF multivitamin [Multiple Vitamins] Tablet 1 tab PO DAILY Qty: 30 0RF magnesium 250 mg tablet 250 mg PO DAILY Qty: 20 0RF ibuprofen 600 mg tablet 600 mg PO TID PRNQty: 30 0RF omeprazole 40 mg capsule,delayed release(DR/EC) 40 mg PO DAILY tramadol 50 mg tablet 50 mg PO Q12H PRN Patient Comments: TAKE ONE TABLET BY MOUTH TWICE A DAY NEEDED FOR PAIN Discharge Instructions Instructions: Leg Pain (ED) HPI General Date/Time Provider Initiated Documentation: 07/12/23 19:38. HPI Narrative: 63-year-old female history of left hip replacement, presents with atraumatic left hip pain over the past couple of weeks. Endorses drinking several martinis this evening. Denies trauma. Related Data Home Medications Medication Instructions Recorded Confirmed multivitamin (Multiple Vitamins 1 tab PO DAILY #30 tabs 08/13/20 07/05/23 tablet) albuterol sulfate 90 mcg/actuation 2 puff inhalation Q6H PRN 01/18/22 07/05/23 aerosol inhaler shortness of breath or wheezing #8.5 grams magnesium 250 mg tablet 250 mg PO DAILY #20 tabs 11/09/22 07/05/23 thiamine HCl (vitamin B1) 250 mg 250 mg PO DAILY 04/19/23 07/05/23 tablet tiotropium 2.5 mcg-olodaterol 2.5 2 puff inhalation Q24H #4 grams 05/04/23 07/05/23 mcg/actuation mist for inhalation (Stiolto Respimat) ipratropium 0.5 mg-albuterol 3 mg 3 ml inhalation Q4H PRN wheezing 05/10/23 07/05/23 (2.5 mg base)/3 mL nebulization #540 mL soln ibuprofen 600 mg tablet 600 mg PO TID PRN #30 tabs 05/20/23 07/05/23 gabapentin 300 mg capsule 300 mg PO TID 06/06/23 07/05/23 omeprazole 40 mg capsule,delayed 40 mg PO DAILY 06/12/23 07/05/23 release tramadol 50 mg tablet 50 mg PO Q12H PRN 06/12/23 07/05/23 Previous Rx's Medication Instructions Recorded multivitamin (Multiple Vitamins 1 tab PO DAILY #30 tabs 08/13/20 tablet) albuterol sulfate 90 mcg/actuation 2 puff inhalation Q6H PRN 01/18/22 aerosol inhaler shortness of breath or wheezing #8.5 grams magnesium 250 mg tablet 250 mg PO DAILY #20 tabs 11/09/22 tiotropium 2.5 mcg-olodaterol 2.5 2 puff inhalation Q24H #4 grams 05/04/23 mcg/actuation mist for inhalation (Stiolto Respimat) ipratropium 0.5 mg-albuterol 3 mg 3 ml inhalation Q4H PRN wheezing 05/10/23 (2.5 mg base)/3 mL nebulization #540 mL soln ibuprofen 600 mg tablet 600 mg PO TID PRN #30 tabs 05/20/23 Allergies Allergy/AdvReac Type Severity Reaction Status Date / Time bacitracin Allergy Mild localized Verified 07/05/23 17:52 [From Neosporin redness ([id number])] neomycin Allergy Mild localized Verified 07/05/23 17:52 [From Neosporin redness ([id number])] polymyxin B Allergy Mild localized Verified 07/05/23 17:52 [From Neosporin redness ([id number])] General Stated Complaint: Orthopedic RAHEEM: 3 Review of Systems Narrative: Review of Systems Constitutional: negative Eyes: negative ENT: negative Cardiovascular: negative Respiratory: negative Gastrointestinal: negative : negative Musculoskeletal: Hip pain Skin: negative Neurologic: negative Psych: negative Exam Narrative Exam Narrative: Physical Examination General: alert, awake, cooperative, resting comfortably, no acute distress HEENT: normocephalic, atraumatic; PERRL, EOM intact, conjunctiva normal; no nasal discharge; moist mucous membranes, oral and pharyngeal mucosa normal, tolerating secretions Neck: supple, trachea midline; full ROM Chest: normal to inspection Respiratory: normal respiratory effort, speaking in full sentences Skin: no lesions, rashes or trauma appreciated Neuro: AAOx3, normal speech, moving all extremities Extremities: Able to flex and extend at hip bilateral lower extremities, no point tenderness no crepitus no step-off no deformity, warm well-perfused extremity, DP pulse intact sensate Psych: Appropriate mood and affect Course Vital Signs Vital signs: Vital Signs Temperature 36.5 C 07/12/23 19:35 Pulse 124 H 07/12/23 19:35 Respiratory Rate 18 07/12/23 19:35 Blood Pressure 133/98 H 07/12/23 19:35 Pulse Oximetry 97 07/12/23 19:35 Temperature 36.5 C 07/12/23 19:35 Temperature Source Tympanic 07/12/23 19:35 Pulse 124 H 07/12/23 19:35 Respiratory Rate 18 07/12/23 19:35 Blood Pressure 133/98 H 07/12/23 19:35 Blood Pressure Position Supine 07/12/23 19:35 Pulse Oximetry 97 07/12/23 19:35 Oxygen Delivery Method Room Air 07/12/23 19:35 Oxygen Flow Rate 0 07/12/23 19:35 Medical Decision Making 63-year-old female presents with atraumatic left hip pain over the past several weeks, hip replacement in May, afebrile nontoxic no to be tachycardic on arrival, patient endorses drinking heavily before arrival, denies trauma. Moving all extremities no focality, no external signs of trauma neurovascular exam of limb intact warm well-perfused soft compartments. Will provide nonopiate nonsedated of analgesia. Will obtain x-ray of pelvis and femur. Likely home with close follow-up 21: 57 patient resting comfortably no acute distress. Left hip hardware intact. Patient calling sister for ride home Quality:SDOH Health Related Social Needs: Health related social needs inadequate housing PFSH All Active Problems (Updated 07/12/23 @ 21:57 by Sesar Solomon MD) Hip pain (Acute) Acute hypokalemia (Acute) Hypoglycemia (Acute) Hypomagnesemia (Acute) Alcoholic ketoacidosis (Acute) Laceration of scalp (Acute) Fall (Acute) Chronic left hip pain (Acute) Contusion of hip (Acute) Closed intertrochanteric fracture of left hip (Acute) s/p IMN fixation (05/18/23) Smoker (Acute) Closed fracture of left hip (Acute) Fall (Acute) Alcohol intoxication (Acute) Anxiety (Chronic) Cavitary lesion of lung (Acute) H/O ETOH abuse (Acute) Tobacco use disorder (Acute 01/28/14) Pleural effusion (Acute) Hypomagnesemia (Acute) Fluid overload (Acute) Chest pain due to GERD (Acute) Chest wall muscle strain (Acute) Hypokalemia (Acute) COPD exacerbation (Acute) Emphysema lung (Acute) Nicotine dependence, cigarettes, uncomplicated (Acute) Atherosclerosis (Acute) Gastric wall thickening (Acute) Stenosis of right internal carotid artery (Acute) Mass of upper lobe of right lung (Acute) Alcohol abuse (Chronic) Dehydration (Acute) Diarrhea (Acute) Hypomagnesemia (Chronic) B12 deficiency (Acute) Ascites (Acute) Chronic liver disease (Chronic) Weight loss, non-intentional (Acute) Macrocytic anemia (Acute) Early satiety (Acute) Folate deficiency (Acute) Hypomagnesemia (Acute) Hypokalemia (Acute) Leg pain (Acute) Cellulitis (Acute) Bilateral leg ulcer (Acute) Medical History Pulmonary nodule COPD (chronic obstructive pulmonary disease) Hypomagnesemia Cachexia Hepatic fibrosis Ulcer of lower extremity Hair loss Vitamin D deficiency Chest pain Gastroesophageal reflux disease Hx pulmonary embolism COPD (chronic obstructive pulmonary disease) Chronic vomiting Malnutrition Frequent falls Bilateral leg pain Pancreatitis Diastolic dysfunction Folate deficiency anemia Ascites Bilateral lower extremity edema Unintentional weight loss Alcohol abuse Tobacco dependence syndrome Tobacco abuse Surgical History punch biopsy, skin of ankle, right lateral (11/24/16) negative for malignancy, sparse inflammation and reactive blood vessels foot surgery (~2000) Ligation of fallopian tube (~1999) ENT/Nasal surgery (~2007) Family History Father Lung disease Cancer Lung Social History Smoking/Tobacco Use Status: Current every day Tobacco Type: cigarettes Tobacco: How many years used: 45 Quit status: considering quitting Second Hand Exposure: Yes Smoking risk assessment performed?: Yes Alcohol Intake: current Alcohol Intake frequency: 3 or more drinks per day Alcohol type: wine and hard liquor Counseling given: Yes Counseling provided: provider counseling Drug use: Rarely Substance use type: marijuana Details: daily drinker, presents to [facility] under the influence of ETOH, states I didn't have much, 3 or 4 lemon drop martinis and a couple, maybe three or four hot toddies Housing: apartment Current gender identity: female Do you feel safe at home: Yes Do you feel safe in your relationship?: Yes Additional Social history: 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 Grew up in [facility], sisters in area. History History Para 0 Hx # Term Pregnancies Multiple births Hx # Pregnancies Ectopic pregnancies AB induced Hx Number of Living Children AB spontaneous
[2023-07-12] MEDS: Lidocaine 5% Patch 1 PATCH TP (20:04)
--- NOTE | 2023-07-12 21:53 | DI.VRAD_ITS ---
PROCEDURE INFORMATION: Exam: XR Pelvis Exam date and time: 07/12/2023 8:59 PM Age: 63 years old Clinical indication: Hip pain; Left hip; Prior surgery; Surgery date: 1-6 months; Surgery type: Hip replacement TECHNIQUE: Imaging protocol: Radiologic exam of the pelvis. Views: 1 or 2 view. COMPARISON: CR XR HIP LT COMPLETE AP PELVIS 06/27/2023 1:30 AM FINDINGS: Bones/joints: Status post open reduction internal fixation of the left femoral fracture, medullary renetta and compression screw in place. Soft tissues: Unremarkable. IMPRESSION: Status post open reduction internal fixation of the intertrochanteric fracture of the left femur, hardware in place, similar in appearance to the prior study. Dictated and Authenticated by: Dawit Biggs MD. Ordering:MONICA Kaba MD
--- NOTE | 2023-07-12 21:55 | DI.VRAD_ITS ---
PROCEDURE INFORMATION: Exam: XR Left Femur Exam date and time: 07/12/2023 9:00 PM Age: 63 years old Clinical indication: Pain; Left; Prior surgery; Surgery date: 1-6 months; Surgery type: Hip replacement TECHNIQUE: Imaging protocol: Radiologic exam of the left femur. Views: 2 views. COMPARISON: CT LOWER EXTREMITY LT WO 06/27/2023 2:56 AM FINDINGS: Bones/joints: Status post open reduction internal fixation of the intertrochanteric fracture of the left femur, hardware in place. Soft tissues: Unremarkable. IMPRESSION: Status post open reduction internal fixation of the fracture of the left femur, hardware in place. Dictated and Authenticated by: Dawit Biggs MD. Ordering:MONICA Kaba MD
--- NOTE | 2023-07-12 21:56 | NUR.NOTE ---
report given to GEETA Roman and care relinquished
== END 2023-07-12 22:14 | disposition home or self-care (01) ==
PROVIDERS: Emergency Provider Emergency Medicine; PCP Nurse Practitioner Family
DX: M25.552 Pain in left hip (principal); Z96.642 Presence of left artificial hip joint; F10.90 Alcohol use, unspecified, uncomplicated
CPT/HCPCS: 73552; 99284; 72170; 99283

== ENCOUNTER 2023-08-02 11:54 | Emergency (ER) | payer BC, SELFPAY ==
[2023-08-02] VITALS (41 sets, daily range): BP systolic 82–148; BP diastolic 20–98; PULSE 85–110; RESP 9–23; TEMP 36.4–36.8; O2SAT 89–100
--- NOTE | 2023-08-02 11:45 | RT.EKG_ITS ---
APPROVED REPORT Exam: Resting ECG Reason for Exam: Weakness Patient Location: E HR:93 bpm ECG Measurements Heart Rate 93 AXIS OH 173 P 58 QRSd 126 QRS 37 QT 425 T 19 QTc 530 Conclusion Sinus rhythm...normal P axis, V-rate 60- 99 Probable left atrial enlargement...P >50mS, <-0.10mV V1 Right bundle branch block...QRSd>120, terminal axis(90,270) Probable anterolateral infarct, old...Q>35mS, abnrm ST-T, V2-V6,I,aVL
--- NOTE | 2023-08-02 12:04 | ED.GENADUL_ITS ---
Discharge Plan Disposition Patient Disposition: Home Condition: Stable Discharge Details Clinical Impression: Diarrhea, Hypomagnesemia Primary Care Provider: MARIANO KEARNEY ED Provider: Whitley Brown Home Meds and New Rx's Prescriptions: New loperamide [Imodium A-D] 1 mg/7.5 mL liquid 2 mg PO Q1-4H PRNQty: 120 0RF Rx Instructions: administer after each loose stool until symptoms controlled; do not exceed 16 mg per 24 hrs sucralfate [Carafate] 100 mg/mL suspension 10 ml PO QACHS PRN (Reason: stomach upset) 7 Days Qty: 414 0RF Rx Instructions: Take 10 mils before meals and at bedtime as needed for stomach upset. Continued ipratropium-albuterol 0.5 mg-3 mg(2.5 mg base)/3 mL solution for nebulization 3 ml inhalation Q4H PRN (Reason: wheezing) Qty: 540 8RF albuterol sulfate 90 mcg/actuation HFA aerosol inhaler 2 puff inhalation Q6H PRN (Reason: shortness of breath or wheezing) Qty: 8.5 12RF thiamine HCl (vitamin B1) 250 mg tablet 250 mg PO DAILY gabapentin 300 mg capsule 300 mg PO TID Stiolto Respimat 2.5-2.5 mcg/actuation mist 2 puff inhalation Q24H Qty: 4 12RF multivitamin [Multiple Vitamins] Tablet 1 tab PO DAILY Qty: 30 0RF magnesium 250 mg tablet 250 mg PO DAILY Qty: 20 0RF ibuprofen 600 mg tablet 600 mg PO TID PRNQty: 30 0RF omeprazole 40 mg capsule,delayed release(DR/EC) 40 mg PO DAILY Discharge Instructions Instructions: Acute Diarrhea (ED), Hypomagnesemia (ED) Additional Instructions: Take the anti-diarrheal (Immodium) medication as directed, use the carafate as directed for acid reflux symptoms. Your magnesium level was low today. Follow up with primary care provider in 3-5 days. Return to ED sooner if any worsening or concerns. Referrals: MARIANO KEARNEY, ELECT[employer]ICAL ELECT[employer] TECHNICIAN [Primary Care Provider] - 3 days Discharge Data Discharge Date/Time-TO BE ENTERED AT DEPARTURE: 08/02/23 16:13 HPI General Mode of arrival: EMS . Date/Time Provider Initiated Documentation: 08/02/23 11:55 . Limitations to Documentation: no limitations . Information obtained by: patient, EMS, RN notes reviewed and old records reviewed . HPI Narrative: 63 year old female presents via EMS with chief complaint of Abdominal pain, nausea, vomiting and diarrhea for last few days. Reports last alcohol intake was Tuesday night. She is a chronic alcoholic. She denies noting any blood in her stool or vomitus. Other past medical history includes COPD, hypomagnesemia, hepatic fibrosis, vitamin D deficiency, GERD, malnutrition, pancreatitis and alcohol abuse. Related Data Home Medications Medication Instructions Recorded Confirmed multivitamin (Multiple Vitamins 1 tab PO DAILY #30 tabs 08/13/20 08/02/23 tablet) albuterol sulfate 90 mcg/actuation 2 puff inhalation Q6H PRN 01/18/22 08/02/23 aerosol inhaler shortness of breath or wheezing #8.5 grams magnesium 250 mg tablet 250 mg PO DAILY #20 tabs 11/09/22 08/02/23 thiamine HCl (vitamin B1) 250 mg 250 mg PO DAILY 04/19/23 08/02/23 tablet tiotropium 2.5 mcg-olodaterol 2.5 2 puff inhalation Q24H #4 grams 05/04/23 08/02/23 mcg/actuation mist for inhalation (Stiolto Respimat) ipratropium 0.5 mg-albuterol 3 mg 3 ml inhalation Q4H PRN wheezing 05/10/23 04/0 06/25 (2.5 mg base)/3 mL nebulization #540 mL soln ibuprofen 600 mg tablet 600 mg PO TID PRN #30 tabs 05/20/23 08/02/23 gabapentin 300 mg capsule 300 mg PO TID 06/06/23 08/02/23 omeprazole 40 mg capsule,delayed 40 mg PO DAILY 06/12/23 08/02/23 release loperamide 1 mg/7.5 mL oral liquid 2 mg (15 mL) PO Q1-4H PRN #120 mL 08/02/23 (Imodium A-D) sucralfate 100 mg/mL oral 10 ml PO QACHS PRN stomach upset 7 08/02/23 suspension (Carafate) days #414 mL Previous Rx's Medication Instructions Recorded multivitamin (Multiple Vitamins 1 tab PO DAILY #30 tabs 08/13/20 tablet) albuterol sulfate 90 mcg/actuation 2 puff inhalation Q6H PRN 01/18/22 aerosol inhaler shortness of breath or wheezing #8.5 grams magnesium 250 mg tablet 250 mg PO DAILY #20 tabs 11/09/22 tiotropium 2.5 mcg-olodaterol 2.5 2 puff inhalation Q24H #4 grams 05/04/23 mcg/actuation mist for inhalation (Stiolto Respimat) ipratropium 0.5 mg-albuterol 3 mg 3 ml inhalation Q4H PRN wheezing 05/10/23 (2.5 mg base)/3 mL nebulization #540 mL soln ibuprofen 600 mg tablet 600 mg PO TID PRN #30 tabs 05/20/23 loperamide 1 mg/7.5 mL oral liquid 2 mg (15 mL) PO Q1-4H PRN #120 mL 08/02/23 (Imodium A-D) sucralfate 100 mg/mL oral 10 ml PO QACHS PRN stomach upset 7 08/02/23 suspension (Carafate) days #414 mL Allergies Allergy/AdvReac Type Severity Reaction Status Date / Time bacitracin Allergy Mild localized Verified 08/02/23 12:00 [From Neosporin redness ([id number])] neomycin Allergy Mild localized Verified 08/02/23 12:00 [From Neosporin redness ([id number])] polymyxin B Allergy Mild localized Verified 08/02/23 12:00 [From Neosporin redness ([id number])] General Stated Complaint: Abd Prob RAHEEM: 3 Review of Systems All systems reviewed & are unremarkable except as noted in HPI and below Constitutional Constitutional: Reports as per HPI, Reports chills and Reports weakness Gastrointestinal Gastrointestinal: Reports abdominal pain, Reports diarrhea, Reports nausea and Reports vomiting Neurologic Neurologic: Reports weakness Exam Narrative Exam Narrative: Constitutional: Alert and oriented x3. Appears stated age. thin body habitus. Head: Normocephalic, no trauma. Eyes: Pupils PERRL, Red reflex noted, EOM's intact. Eyelids symmetrical without lesions, discharge, or swelling. ENT: Bilateral TM's WNL, External ear normal to inspection, no mastoid TTP, swelling, or erythema, Nasal turbinates WNL, no nasal discharge. Normal dentition, Posterior pharynx WNL, no exudate. Chest: RRR, Normal S1, S2, distal pulses intact. Resp: Lungs clear to auscultation bilaterally, no wheezes, rales, or rhonchi. Abdomen: Soft, non-distended, Normoactive bowel sounds all 4 quads. Musculoskeletal: Moves all 4 extremities without difficulty Skin: No suspicious rashes or lesions. Capillary refill less than 2 sec. Neurologic: Cranial nerves II-XII intact. Alert and oriented x 3. Motor: No deficits noted. Sensory: Intact bilaterally all 4 extremities. Hematologic/Lymphatic: No ecchymosis, no lymphadenopathy. Course Vital Signs Vital signs: Vital Signs Temperature 36.8 C 08/02/23 11:53 Pulse 88 08/02/23 11:53 Respiratory Rate 18 08/02/23 11:53 Blood Pressure 131/79 08/02/23 11:53 Pulse Oximetry 96 08/02/23 11:53 Temperature 36.8 C 08/02/23 11:53 Temperature Source Oral 08/02/23 11:53 Pulse 88 08/02/23 11:53 Respiratory Rate 18 08/02/23 11:53 Respiratory Effort Normal 08/02/23 11:58 Blood Pressure 131/79 08/02/23 11:53 Blood Pressure Position Supine 08/02/23 11:53 Pulse Oximetry 96 08/02/23 11:53 Oxygen Delivery Method Room Air 08/02/23 11:53 Oxygen Flow Rate 0 08/02/23 11:53 Pain Level 7 08/02/23 11:58 Medical Decision Making 63 year old female presents via EMS with chief complaint of Abdominal pain, nausea, vomiting and diarrhea for last few days. Reports last alcohol intake was Tuesday night. She is a chronic alcoholic. She denies noting any blood in her stool or vomitus. Other past medical history includes COPD, hypomagnesemia, hepatic fibrosis, vitamin D deficiency, GERD, malnutrition, pancreatitis and alcohol abuse. CBC shows no leukocytosis, hemoglobin 10.7 hematocrit 31.5 with the patient's baseline, PT 12.3 INR 1.2, sodium 136 potassium 3.1, BUN 5 calcium 8.0 magnesium is low at 1.2, AST 72 alk phos 164, ammonia level is high at 60, albumin 2.2 lipase is low, Banana bag ordered and 2 g of magnesium IV. Fluids completed patient did have a small amount of diarrhea while here, is tolerating PO without emesis, GI cocktail given. Patient re-evaluated, she reports gerd type symptoms, will give carafate and Imodium, discussed home care and follow up care, she verbalizes understanding. Patient eating meal without difficulty, awaiting ride from sister. She has remained hemodynamically stable, alert and oriented and at baseline throughout the remainder of her stay. Patient gotten up by entry level staff accountant no falls noted. This text was generated using Memeation system, please disregard any oddities of phrase or misspellings. Lab Data Lab results reviewed: Yes I reviewed the patient's lab results. Labs: 08/02/23 12:29 Stool Stool Occult Blood (IFTIKHAR) - Pending Laboratory Tests Range/Units 08/02/23 12:13 WBC (4.4-10.8) 10^3/uL 7.74 RBC (3.93-5.22) 10^6/uL 3.14 L Hgb (11.2-15.7) g/dL 10.7 L Hct (36.0-46.0) % 31.5 L MCV (80-95) fL 100 H MCH (27.0-33.0) pg 34.1 H MCHC (32.0-36.0) % 34.0 RDW (11.7-14.6) % 15.9 H Plt Count (130-400) 10^3/uL 250 MPV (8.0-11.0) fL 9.9 Immature Gran % 0.5 Neutrophils % 79.3 Lymphocytes % 13.2 Monocytes % 5.3 Eosinophils % 1.2 Basophils % 0.5 Nucleated RBC % (0.0-0.3) % 0.0 Absolute Neutrophils (1.2-6.7) 10^3/uL 6.14 Absolute Lymphocytes (1.2-3.4) 10^3/uL 1.02 L Absolute Monocytes (0.1-0.8) 10^3/uL 0.41 Absolute Eosinophils (0.0-0.7) 10^3/uL 0.09 Absolute Basophils (0.0-0.2) 10^3/uL 0.04 PT (9.1-11.1) sec 12.3 H INR (0.9-1.1) 1.2 H Sodium (136-145) mmol/L 136 Potassium (3.5-5.1) mmol/L 3.1 L Chloride (98-107) mmol/L 99 Carbon Dioxide (21.0-32.0) mmol/L 27.1 Anion Gap (3-11) mmol/L 9.9 BUN (7-18) mg/dL 5 L Creatinine (0.55-1.02) mg/dL 0.7 Est GFR (CKD-EPI 2020) (mL/min/1.73m2) 97.72 Glucose (74-106) mg/dL 84 Calcium (8.5-10.1) mg/dL 8.0 L Magnesium (1.8-2.4) mg/dL 1.2 L Total Bilirubin (0.2-1.0) mg/dL 1.0 AST (15-37) U/L 72 H ALT (14-59) U/L 30 Alkaline Phosphatase (46-116) U/L 164 H Ammonia (11-32) umol/L 60 H Troponin I (< or =60) ng/L < 50 Total Protein (6.4-8.2) g/dL 5.2 L Albumin (3.4-5.0) g/dL 2.2 L Lipase (16-77) U/L 11 L Ethyl Alcohol (<10) mg/dL < 3.0 Quality:SDOH Health Related Social Needs: Health related social needs inadequate housing PFSH All Active Problems (Updated 08/02/23 @ 14:58 by Whitley Brown NP) Hypomagnesemia (Acute) Diarrhea (Acute) Hip pain (Acute) Acute hypokalemia (Acute) Hypoglycemia (Acute) Hypomagnesemia (Acute) Alcoholic ketoacidosis (Acute) Laceration of scalp (Acute) Fall (Acute) Chronic left hip pain (Acute) Contusion of hip (Acute) Closed intertrochanteric fracture of left hip (Acute) s/p IMN fixation (05/18/23) Smoker (Acute) Closed fracture of left hip (Acute) Fall (Acute) Alcohol intoxication (Acute) Anxiety (Chronic) Cavitary lesion of lung (Acute) H/O ETOH abuse (Acute) Tobacco use disorder (Acute 01/28/14) Pleural effusion (Acute) Hypomagnesemia (Acute) Fluid overload (Acute) Chest pain due to GERD (Acute) Chest wall muscle strain (Acute) Hypokalemia (Acute) COPD exacerbation (Acute) Emphysema lung (Acute) Nicotine dependence, cigarettes, uncomplicated (Acute) Atherosclerosis (Acute) Gastric wall thickening (Acute) Stenosis of right internal carotid artery (Acute) Mass of upper lobe of right lung (Acute) Alcohol abuse (Chronic) Dehydration (Acute) Diarrhea (Acute) Hypomagnesemia (Chronic) B12 deficiency (Acute) Ascites (Acute) Chronic liver disease (Chronic) Weight loss, non-intentional (Acute) Macrocytic anemia (Acute) Early satiety (Acute) Folate deficiency (Acute) Hypomagnesemia (Acute) Hypokalemia (Acute) Leg pain (Acute) Cellulitis (Acute) Bilateral leg ulcer (Acute) Medical History Pulmonary nodule COPD (chronic obstructive pulmonary disease) Hypomagnesemia Cachexia Hepatic fibrosis Ulcer of lower extremity Hair loss Vitamin D deficiency Chest pain Gastroesophageal reflux disease Hx pulmonary embolism COPD (chronic obstructive pulmonary disease) Chronic vomiting Malnutrition Frequent falls Bilateral leg pain Pancreatitis Diastolic dysfunction Folate deficiency anemia Ascites Bilateral lower extremity edema Unintentional weight loss Alcohol abuse Tobacco dependence syndrome Tobacco abuse Surgical History punch biopsy, skin of ankle, right lateral (11/24/16) negative for malignancy, sparse inflammation and reactive blood vessels foot surgery (~2000) Ligation of fallopian tube (~1999) ENT/Nasal surgery (~2007) Family History Father Lung disease Cancer Lung Social History Smoking/Tobacco Use Status: Current every day Tobacco Type: cigarettes Tobacco: How many years used: 45 Quit status: considering quitting Second Hand Exposure: Yes Smoking risk assessment performed?: Yes Alcohol Intake: current Alcohol Intake frequency: 3 or more drinks per day Alcohol type: wine and hard liquor Counseling given: Yes Counseling provided: provider counseling Drug use: Rarely Substance use type: marijuana Details: daily drinker, presents to [facility] under the influence of ETOH, states I didn't have much, 3 or 4 lemon drop martinis and a couple, maybe three or four hot toddies Housing: apartment Current gender identity: female Do you feel safe at home: Yes Do you feel safe in your relationship?: Yes Additional Social history: Lives alone in studio in [facility], 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 Grew up in [facility], sisters in area. History History Para 0 Hx # Term Pregnancies Multiple births Hx # Pregnancies Ectopic pregnancies AB induced Hx Number of Living Children AB spontaneous PAWSS Have you Been Recently Intoxicated or Drunk Within the Last 30 days?: Yes Have you Ever Experienced Previous Episodes of Alcohol Withdrawal?: No Have you ever Experienced Withdrawal Seizures?: No Have you ever Experienced Delirium Tremens(DT)s?: No Have you ever undergone Alcohol Rehabilitation Treatment (i.e, inpt ot outpatient treatment programs)?: No Have you ever Experienced Blackouts?: No Have you ever Combined Alcohol with other Downers within the last 90 days?: No Have you ever Combined Alcohol with any other Substance of Abuse during the last 90 days?: No Positive Blood Alcohol level on Presentation? [PCS.BAL]: No Evidence of Increased Autonomic Activity (i.e. HR>120, tremor, sweating, agitation, nausea)?: No Result: 1
[2023-08-02 12:22] LABS: Abs Immature Grans 0.04 10^3/uL (0.0-0.06); Absolute Basophil Count 0.04 10^3/uL (0.0-0.2); Absolute Eosinophil Count 0.09 10^3/uL (0.0-0.7); Absolute Lymphocyte Count 1.02 10^3/uL (1.2-3.4); Absolute Monocyte Count 0.41 10^3/uL (0.1-0.8); Absolute Neutrophil Count 6.14 10^3/uL (1.2-6.7); Basophils % 0.5; Eosinophils % 1.2; HCT 31.5 % (36.0-46.0); HGB 10.7 g/dL (11.2-15.7); Immature Grans % 0.5; Lymphocytes % 13.2; MCH 34.1 pg (27.0-33.0); MCV 100 fL (80-95); MPV 9.9 fL (8.0-11.0); Monocytes % 5.3; Neutrophils % 79.3; Platelet Count 250 10^3/uL (130-400); RBC 3.14 10^6/uL (3.93-5.22); RDW 15.9 % (11.7-14.6); WBC 7.74 10^3/uL (4.4-10.8)
[2023-08-02 12:33] LABS: INR 1.2 (0.9-1.1); Prothrombin Time 12.3 sec (9.1-11.1)
[2023-08-02] MEDS: Normal Saline 500 ML IV (12:40)
[2023-08-02 12:41] LABS: Ammonia 60 umol/L (11-32)
[2023-08-02 12:44] LABS: ALT 30 U/L (14-59); AST 72 U/L (15-37); Albumin 2.2 g/dL (3.4-5.0); Alkaline Phosphatase 164 U/L (46-116); Anion Gap 9.9 mmol/L (3-11); BUN 5 mg/dL (7-18); CO2 27.1 mmol/L (21.0-32.0); CREATININE 0.7 mg/dL (0.55-1.02); Chloride 99 mmol/L (98-107); Estimated GFR 97.72 (mL/min/1.73m2); Glucose 84 mg/dL (74-106); Lipase 11 U/L (16-77); Magnesium 1.2 mg/dL (1.8-2.4); Potassium 3.1 mmol/L (3.5-5.1); Sodium 136 mmol/L (136-145); Total Protein 5.2 g/dL (6.4-8.2); Troponin I < 50 ng/L (< or =60)
[2023-08-02 12:45] LABS: ETHANOL BLOOD < 3.0 mg/dL (<10)
[2023-08-02] MEDS: MAGNESIUM SULFATE 8.12 MEQ, MULTIVITAMIN 10 ML, THIAMINE 100 MG, FOLIC ACID 1 MG in Nor... 168.867 MG IV (13:17)
[2023-08-02] MEDS: MAGNESIUM SULFATE 2 GM/50 ML BAG IVPB (13:17)
[2023-08-02] MEDS: Famotidine 20 MG/2 ML VIAL IVP (13:17)
[2023-08-02 13:54] LABS: C Diff PCR Negative (Negative)
[2023-08-02] MEDS: Sucralfate 1 GM TAB PO (15:08)
[2023-08-02] MEDS: Potassium Chloride Liquid 20 MEQ PKT 40 MEQ PO (15:08)
[2023-08-02] MEDS: Loperamide 2 MG CAP 4 MG PO (15:08)
[2023-08-02 15:56] LABS: Troponin I < 50 ng/L (< or =60)
[2023-08-03 10:40] LABS: Campylobacter PCR Negative (Negative); Salmonella PCR Negative (Negative); Shiga Toxin PCR Negative (Negative); Shigella/Enteroinvasive Ecoli Negative (Negative)
== END 2023-08-02 16:13 | disposition home or self-care (01) ==
PROVIDERS: Emergency Provider Registered Nurse Emergency; PCP Nurse Practitioner Family
DX: R19.7 Diarrhea, unspecified (principal); E83.42 Hypomagnesemia; R11.2 Nausea with vomiting, unspecified; I45.19 Other right bundle-branch block; J44.9 Chronic obstructive pulmonary disease, unspecified; K21.9 Gastro-esophageal reflux disease without esophagitis; F17.210 Nicotine dependence, cigarettes, uncomplicated
CPT/HCPCS: 36415; 80053; 83690; 87493; 87505; 93005; 96361; 96365; 96366; 96368; 96375; 99284; 80320; 82140; 82270; 83735; 84484; 85025; 85610; 93010; J3411; J3475

== ENCOUNTER 2023-08-08 13:13 | Outpatient (CLI) | payer BC, SELFPAY ==
--- NOTE | 2023-08-08 10:45 | DI.RAD_ITS ---
Exam(s) XR HIP LT AP LAT ONLY EXAM: XR HIP LT AP LAT ONLY CLINICAL HISTORY: S/P IM NAIL. TECHNIQUE: 2D digital imaging was performed. Two views. COMPARISON: CR,XR XR FEMUR LT from 07/12/2023 FINDINGS: No change in fracture or hardware alignment. No new abnormalities. DATA REPOSITORY: RADIATION DOSE DELIVERED:
== END 2023-08-08 13:14 | disposition home or self-care (01) ==
LOC: DIORS 13:13
PROVIDERS: PCP Nurse Practitioner Family; Visit Provider Student in an Organized Health Care Education/Training Program
DX: S72.142D Displaced intertrochanteric fracture of left femur, subsequent encounter for closed fracture with routine healing (principal); X58.XXXD Exposure to other specified factors, subsequent encounter
CPT/HCPCS: 73502

== ENCOUNTER 2023-08-16 13:43 | Emergency (ER) | payer BC, SELFPAY ==
[2023-08-16 13:43] VITALS: BP 102/74; PULSE 110; RESP 18; TEMP 36.9; O2SAT 95
--- NOTE | 2023-08-16 13:45 | RT.EKG_ITS ---
APPROVED REPORT Exam: Resting ECG Reason for Exam: edema Patient Location: E HR:96 bpm ECG Measurements Heart Rate 96 AXIS UT 150 P 63 QRSd 116 QRS 42 QT 388 T 10 QTc 491 Conclusion Sinus rhythm 96 no stemi
--- NOTE | 2023-08-16 13:58 | DI.CT_ITS ---
Exam(s) CT ABD AORTA CTA W RUNOFF EXAM: CT ABD AORTA CTA W RUNOFF CLINICAL HISTORY: leg swelling ? arterial insuff. TECHNIQUE: Imaging Protocol: Axial CT angiography was performed with multi-slice acquisition and mu lti-planar and/or 3D reconstructions. CONTRAST MATERIAL: Intravenous: Omnipaque 350 Contrast volume:structured data in ml Contrast route:I V - Oral: / no COMPARISON: CT CT CHEST/ABD/PEL W from 08/16/[address] CHEST PE CTA from 04/06/[address] LOWER EXTREMITY LT WO from 06/27/2023 CR,XR XR PORTABLE CHEST AP from 07/05/2023 CR XR HIP LT AP LAT ONLY from 08/08/2023 FINDINGS: Vascular Structures: Heart: Left ventricular and left atrial enlargement. Mitral valvular calcifications. Coronary arter y calcifications. Abdomen: Celiac [place]: Heavy calcification causing severe stenosis at origin. SMA: Calcification at origin causing significant stenosis. Renal Arteries: Heavy calcification at the origin causing stenosis. There is a single renal artery p erfusing each kidney. Aorta: No aneurysm. No dissection. Severe atherosclerotic calcification. Pelvis: Iliac Arteries: Calcific plaque causing less than 50 percent stenosis. Common Femoral Arteries: Mild scattered plaque. No evidence of stenosis. Lower extremities: Right: Common Femoral: Scattered plaque throughout. No evidence of stenosis. Superficial Femoral: Scattered plaque throughout. No evidence of stenosis. Popliteal: No evidence of stenosis. Knee Trifurcation: No evidence of stenosis. Posterior Tibial: Patent Peroneal: Patent Vessels distal to the ankles are too small to characterize. Left: Common Femoral: Mild calcific plaque throughout. No evidence of stenosis. Superficial Femoral: Mild calcific plaque throughout focal calcification causing greater than 50 perc ent stenosis at the bifurcation. Significant stenosis, greater than 50 percent in the upper superfic ial femoral artery. Popliteal: No evidence of stenosis. Knee Trifurcation: No evidence of stenosis. Posterior Tibial: Patent Peroneal: Patent Vessels distal to the ankles are too small to characterize. Soft Tissues: Exam mildly limited by motion. Lungs: Expiratory changes. Liver: Moderate to severe hepatic steatosis. No measurable mass. Gallbladder and biliary tract: No radiodense calculus or dilation. Pancreas: Normal density, no abnormal calcifications or inflammatory process. Spleen: Normal. Kidneys: Somewhat limited evaluation in motion. Normal size, contour and axis. No radiodense stones or obstructive uropathy. No masses seen. Adrenal glands: No masses seen. Bladder: Symmetric distention, no gross wall thickening. Bowel: Diverticulosis of the sigmoid and lower descending colon. No evidence of diverticulitis. No obstruction or bowel wall thickening. Peritoneal cavity: No ascites, collection or mesenteric inflammatory response. Bones: Degenerative changes in the spine. Intramedullary renetta in the left femur. Reproductive: Unremarkable. IMPRESSION: Severe aortic calcification. Severe stenosis at origin of celiac axis. Significant stenosis at the origin of the SMA and bilateral renal arteries. Less than 50 percent stenosis of the common iliac arteries at the bifurcation. Focal calcific plaque causing greater than 50 percent stenosis at the bifurcation of the right common femoral artery and proximal superficial femoral artery.. RADIATION DOSE DELIVERED: 762.24mGy.cm Total DLP DATA REPOSITORY: All CT scans at this facility are submitted to the National Radiology Data Registry (NRDR) Dose Index Registry (DIR) with the [employer] (A[employer]). RADIATION OPTIMIZATION: All CT scans at this facility use at least one of these dose optimization te chniques: automated exposure control; mA and/or kV adjustment per patient size (includes targeted exa ms where dose is matched to clinical indication); or iterative reconstruction.
[2023-08-16 14:13] VITALS: BP 102/74; PULSE 110; RESP 18; TEMP 36.9; O2SAT 95
[2023-08-16 14:25] LABS: Abs Immature Grans 0.08 10^3/uL (0.0-0.06); Absolute Basophil Count 0.07 10^3/uL (0.0-0.2); Absolute Eosinophil Count 0.05 10^3/uL (0.0-0.7); Absolute Lymphocyte Count 1.59 10^3/uL (1.2-3.4); Absolute Monocyte Count 0.61 10^3/uL (0.1-0.8); Absolute Neutrophil Count 3.94 10^3/uL (1.2-6.7); Basophils % 1.1; Eosinophils % 0.8; HCT 33.7 % (36.0-46.0); HGB 11.7 g/dL (11.2-15.7); Immature Grans % 1.3; Lymphocytes % 25.1; MCHC 34.7 % (32.0-36.0); MCV 101 fL (80-95); MPV 9.8 fL (8.0-11.0); Monocytes % 9.6; Neutrophils % 62.1; Platelet Count 268 10^3/uL (130-400); RBC 3.34 10^6/uL (3.93-5.22); RDW 17.6 % (11.7-14.6); RDW-SD 64.3 fL; WBC 6.34 10^3/uL (4.4-10.8)
--- NOTE | 2023-08-16 14:25 | W.ED.GENAD ---
Discharge Plan Disposition Patient Disposition: Home Discharge Details Clinical Impression: Leg swelling, Atherosclerosis of aorta, PVD (peripheral vascular disease), Difficulty walking Primary Care Provider: MARIANO KEARNEY ED Provider: Philly Cisneros Home Meds and New Rx's Prescriptions: No Action ipratropium-albuterol 0.5 mg-3 mg(2.5 mg base)/3 mL solution for nebulization 3 ml inhalation Q4H PRN (Reason: wheezing) Qty: 540 8RF albuterol sulfate 90 mcg/actuation HFA aerosol inhaler 2 puff inhalation Q6H PRN (Reason: shortness of breath or wheezing) Qty: 8.5 12RF thiamine HCl (vitamin B1) 250 mg tablet 250 mg PO DAILY gabapentin 300 mg capsule 300 mg PO TID Stiolto Respimat 2.5-2.5 mcg/actuation mist 2 puff inhalation Q24H Qty: 4 12RF loperamide [Imodium A-D] 1 mg/7.5 mL liquid 2 mg PO Q1-4H PRNQty: 120 0RF Rx Instructions: administer after each loose stool until symptoms controlled; do not exceed 16 mg per 24 hrs multivitamin [Multiple Vitamins] Tablet 1 tab PO DAILY Qty: 30 0RF magnesium 250 mg tablet 250 mg PO DAILY Qty: 20 0RF ibuprofen 600 mg tablet 600 mg PO TID PRNQty: 30 0RF omeprazole 40 mg capsule,delayed release(DR/EC) 40 mg PO DAILY Discharge Instructions Additional Instructions: please keep feet elevated as much as possibl e you may benefit from diuresis, please follow up with your PCP for evaluation of your ongoing medical issues Discharge Data Discharge Date/Time-TO BE ENTERED AT DEPARTURE: 08/16/23 17:26 HPI General Date/Time Provider Initiated Documentation: 08/16/23 13:48. Limitations to Documentation: no limitations. Information obtained by: patient. HPI Narrative: 63-year-old female with past medical history of chronic alcohol abuse, frequent falls, COPD, presents for evaluation of bilateral lower extremity swelling. She reports that her swelling has gotten significantly worse. She denies any shortness of breath or chest pain. Reports that the pain in her lower legs is severe and that it is making it so that she is unable to ambulate around her house. She denies any numbness or tingling. She reports that her legs are very red and that she has never seen them this red before. Related Data Home Medications Medication Instructions Recorded Confirmed multivitamin (Multiple Vitamins 1 tab PO DAILY #30 tabs 08/13/20 08/16/23 tablet) albuterol sulfate 90 mcg/actuation 2 puff inhalation Q6H PRN 01/18/22 08/16/23 aerosol inhaler shortness of breath or wheezing #8.5 grams magnesium 250 mg tablet 250 mg PO DAILY #20 tabs 11/09/22 08/16/23 thiamine HCl (vitamin B1) 250 mg 250 mg PO DAILY 04/19/23 08/16/23 tablet tiotropium 2.5 mcg-olodaterol 2.5 2 puff inhalation Q24H #4 grams 05/04/23 08/16/23 mcg/actuation mist for inhalation (Stiolto Respimat) ipratropium 0.5 mg-albuterol 3 mg 3 ml inhalation Q4H PRN wheezing 05/10/23 08/16/23 (2.5 mg base)/3 mL nebulization #540 mL soln ibuprofen 600 mg tablet 600 mg PO TID PRN #30 tabs 05/20/23 08/16/23 gabapentin 300 mg capsule 300 mg PO TID 06/06/23 08/16/23 omeprazole 40 mg capsule,delayed 40 mg PO DAILY 06/12/23 08/16/23 release loperamide 1 mg/7.5 mL oral liquid 2 mg (15 mL) PO Q1-4H PRN #120 mL 08/02/23 08/16/23 (Imodium A-D) Previous Rx's Medication Instructions Recorded multivitamin (Multiple Vitamins 1 tab PO DAILY #30 tabs 08/13/20 tablet) albuterol sulfate 90 mcg/actuation 2 puff inhalation Q6H PRN 01/18/22 aerosol inhaler shortness of breath or wheezing #8.5 grams magnesium 250 mg tablet 250 mg PO DAILY #20 tabs 11/09/22 tiotropium 2.5 mcg-olodaterol 2.5 2 puff inhalation Q24H #4 grams 05/04/23 mcg/actuation mist for inhalation (Stiolto Respimat) ipratropium 0.5 mg-albuterol 3 mg 3 ml inhalation Q4H PRN wheezing 05/10/23 (2.5 mg base)/3 mL nebulization #540 mL soln ibuprofen 600 mg tablet 600 mg PO TID PRN #30 tabs 05/20/23 loperamide 1 mg/7.5 mL oral liquid 2 mg (15 mL) PO Q1-4H PRN #120 mL 08/02/23 (Imodium A-D) Allergies Allergy/AdvReac Type Severity Reaction Status Date / Time bacitracin Allergy Mild localized Verified 08/16/23 13:47 [From Neosporin redness ([id number])] neomycin Allergy Mild localized Verified 08/16/23 13:47 [From Neosporin redness ([id number])] polymyxin B Allergy Mild localized Verified 08/16/23 13:47 [From Neosporin redness ([id number])] General Stated Complaint: GenMedical RAHEEM: 3 Exam Narrative Exam Narrative: review of Systems: All systems reviewed & are unremarkable except as noted in HPI and below Well-developed, no acute distress IN full hair and make-up NCAT PERRL, normal conjunctiva tachycardic Unlabored respiratory effort, clear bilaterally Nondistended abdomen , nontender Bilateral lower extremities with 2+ pitting edema below the knee, there is significant erythema, the legs are cool to touch there are some discoloration particularly in the right foot. Sensation is intact. There is a palpable left DP pulse, there is no palpable pulse on the right, but I am able to get a Doppler signal no focal neurologic deficits Appropriate mood and affect Course Vital Signs Vital signs: Vital Signs Temperature 36.9 C 08/16/23 13:43 Pulse 110 H 08/16/23 13:43 Respiratory Rate 18 08/16/23 13:43 Blood Pressure 102/74 08/16/23 13:43 Pulse Oximetry 95 08/16/23 13:43 Temperature 36.9 C 08/16/23 14:13 Temperature Source Oral 08/16/23 14:13 Pulse 110 H 08/16/23 14:13 Respiratory Rate 18 08/16/23 14:13 Respiratory Effort Normal 08/16/23 14:13 Blood Pressure 102/74 08/16/23 14:13 Blood Pressure Position Sitting 08/16/23 14:13 Pulse Oximetry 95 08/16/23 14:13 Oxygen Delivery Method Room Air 08/16/23 14:13 Oxygen Flow Rate 0 08/16/23 14:13 Pain Level 12 08/16/23 14:13 Medical Decision Making Emergent evaluation of leg swelling and pain. Patient has significant lower extremity edema and discoloration. Initial differential includes cellulitis, volume overload, liver failure. Also some concern for arterial insufficiency to the lower extremity, particularly the right though I do not suspect an acute arterial occlusion. Will get lab work and CT of the legs as arterial ultrasound is not available at this facility. labs reviewed, no elevation in WBC. CRP only mildly elevated. CTA demonstates chronic stenosis without significant insuffiencies currently. xc she was given IV lasix and diuresed signifcantly in the ED. given her swelling and leg appearance, recommended admission but patient reports that she has dogs to care for at home and says she is feeling so much better already that she would like to go home home. I recommend that she have close follow up with her PCP for further testing w/u and referral to vascular surgery as needed. Medical Records Medical records reviewed: Yes I reviewed the patient's medical records. Lab Data Lab results reviewed: Yes I reviewed the patient's lab results. Quality:SDOH Health Related Social Needs: Health related social needs inadequate housing PFSH All Active Problems (Updated 08/16/23 @ 16:52 by Philly Cisneros MD) Difficulty walking (Acute) PVD (peripheral vascular disease) (Chronic) Atherosclerosis of aorta (Acute) Leg swelling (Acute) Hypomagnesemia (Acute) Diarrhea (Acute) Acute hypokalemia (Acute) Hypoglycemia (Acute) Alcoholic ketoacidosis (Acute) Laceration of scalp (Acute) Fall (Acute) Chronic left hip pain (Acute) Contusion of hip (Acute) Closed intertrochanteric fracture of left hip (Acute) s/p IMN fixation (05/18/23) Smoker (Acute) Closed fracture of left hip (Acute) Fall (Acute) Alcohol intoxication (Acute) Anxiety (Chronic) Cavitary lesion of lung (Acute) H/O ETOH abuse (Acute) Tobacco use disorder (Acute 01/28/14) Pleural effusion (Acute) Hypomagnesemia (Acute) Fluid overload (Acute) Chest pain due to GERD (Acute) Chest wall muscle strain (Acute) Hypokalemia (Acute) COPD exacerbation (Acute) Emphysema lung (Acute) Nicotine dependence, cigarettes, uncomplicated (Acute) Atherosclerosis (Acute) Gastric wall thickening (Acute) Stenosis of right internal carotid artery (Acute) Mass of upper lobe of right lung (Acute) Alcohol abuse (Chronic) Dehydration (Acute) Diarrhea (Acute) Hypomagnesemia (Chronic) B12 deficiency (Acute) Ascites (Acute) Chronic liver disease (Chronic) Weight loss, non-intentional (Acute) Macrocytic anemia (Acute) Early satiety (Acute) Folate deficiency (Acute) Hypomagnesemia (Acute) Hypokalemia (Acute) Leg pain (Acute) Cellulitis (Acute) Bilateral leg ulcer (Acute) Medical History Pulmonary nodule COPD (chronic obstructive pulmonary disease) Hypomagnesemia Cachexia Hepatic fibrosis Ulcer of lower extremity Hair loss Vitamin D deficiency Chest pain Gastroesophageal reflux disease Hx pulmonary embolism COPD (chronic obstructive pulmonary disease) Chronic vomiting Malnutrition Frequent falls Bilateral leg pain Pancreatitis Diastolic dysfunction Folate deficiency anemia Ascites Bilateral lower extremity edema Unintentional weight loss Alcohol abuse Tobacco dependence syndrome Tobacco abuse Surgical History punch biopsy, skin of ankle, right lateral (11/24/16) negative for malignancy, sparse inflammation and reactive blood vessels foot surgery (~2000) Ligation of fallopian tube (~1999) ENT/Nasal surgery (~2007) Family History Father Lung disease Cancer Lung Social History Smoking/Tobacco Use Status: Current every day Tobacco Type: cigarettes Tobacco: How many years used: 45 Quit status: considering quitting Second Hand Exposure: Yes Smoking risk assessment performed?: Yes Alcohol Intake: current Alcohol Intake frequency: 3 or more drinks per day Alcohol type: wine and hard liquor Counseling given: Yes Counseling provided: provider counseling Drug use: Rarely Substance use type: marijuana Details: daily drinker, presents to [facility] under the influence of ETOH, states I didn't have much, 3 or 4 lemon drop martinis and a couple, maybe three or four hot toddies Housing: apartment Current gender identity: female Do you feel safe at home: Yes Do you feel safe in your relationship?: Yes Additional Social history: Lives alone in studio in [facility], 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 Grew up in [facility], sisters in area. History History Para 0 Hx # Term Pregnancies Multiple births Hx # Pregnancies Ectopic pregnancies AB induced Hx Number of Living Children AB spontaneous PAWSS Have you Been Recently Intoxicated or Drunk Within the Last 30 days?: Yes Have you Ever Experienced Previous Episodes of Alcohol Withdrawal?: No Have you ever Experienced Withdrawal Seizures?: No Have you ever Experienced Delirium Tremens(DT)s?: No Have you ever undergone Alcohol Rehabilitation Treatment (i.e, inpt ot outpatient treatment programs)?: No Have you ever Experienced Blackouts?: Yes Have you ever Combined Alcohol with other Downers within the last 90 days?: No Have you ever Combined Alcohol with any other Substance of Abuse during the last 90 days?: No Evidence of Increased Autonomic Activity (i.e. HR>120, tremor, sweating, agitation, nausea)?: No Result: 2
[2023-08-16 14:29] LABS: ESR 24 mm/hr (0-30)
[2023-08-16 14:32] LABS: C-Reactive Protein 1.93 mg/dL (<or=0.5)
[2023-08-16 14:40] LABS: ALT 18 U/L (14-59); AST 48 U/L (15-37); Albumin 2.3 g/dL (3.4-5.0); Alkaline Phosphatase 202 U/L (46-116); Anion Gap 14.5 mmol/L (3-11); BUN 5 mg/dL (7-18); Bilirubin, Total 0.5 mg/dL (0.2-1.0); CO2 22.5 mmol/L (21.0-32.0); CREATININE 0.5 mg/dL (0.55-1.02); Calcium 7.8 mg/dL (8.5-10.1); Chloride 98 mmol/L (98-107); Estimated GFR 105.98 (mL/min/1.73m2); Glucose 63 mg/dL (74-106); NT-proBNP 1008 pg/mL (<300); Potassium 3.4 mmol/L (3.5-5.1); Sodium 135 mmol/L (136-145); Total Protein 6.1 g/dL (6.4-8.2)
[2023-08-16 14:44] LABS: INR 1.1 (0.9-1.1); Prothrombin Time 10.6 sec (9.1-11.1)
[2023-08-16] MEDS: Omnipaque 350 MG/ML 500 ML BTL-Imaging package IJ (15:11)
[2023-08-16] MEDS: Omnipaque 350 MG/ML 50 ML BTL IJ (15:13)
[2023-08-16] MEDS: Normal Saline - Diluent 50 ML VIAL IJ ×2 (15:14→15:15)
[2023-08-16] MEDS: Furosemide 100 MG/10 ML VIAL 80 MG IVP (15:42)
== END 2023-08-16 17:26 | disposition home or self-care (01) ==
PROVIDERS: Emergency Provider Emergency Medicine; PCP Nurse Practitioner Family
DX: R22.43 Localized swelling, mass and lump, lower limb, bilateral (principal); I70.0 Atherosclerosis of aorta; I73.9 Peripheral vascular disease, unspecified; F10.10 Alcohol abuse, uncomplicated; F17.210 Nicotine dependence, cigarettes, uncomplicated; J44.9 Chronic obstructive pulmonary disease, unspecified; Z86.711 Personal history of pulmonary embolism
CPT/HCPCS: 36415; 75635; 80053; 85652; 93005; 96374; 99285; 83735; 83880; 85025; 85610; 86140; 93010; 99284; J1940; Q9967

== ENCOUNTER 2023-08-31 13:51 | Emergency (ER) | payer BC, SELFPAY ==
[2023-08-31] VITALS (41 sets, daily range): BP systolic 42–148; BP diastolic 20–86; PULSE 88–110; RESP 7–25; TEMP 36.2–36.9; O2SAT 86–100
--- NOTE | 2023-08-31 14:04 | ED.GENADUL_ITS ---
Discharge Plan Discharge Details Chief Complaint: Nausea/Vomit/Diar Primary Care Provider: MARIANO KEARNEY ED Provider: Padmini Perkins Home Meds and New Rx's Prescriptions: No Action ipratropium-albuterol 0.5 mg-3 mg(2.5 mg base)/3 mL solution for nebulization 3 ml inhalation Q4H PRN (Reason: wheezing) Qty: 540 8RF albuterol sulfate 90 mcg/actuation HFA aerosol inhaler 2 puff inhalation Q6H PRN (Reason: shortness of breath or wheezing) Qty: 8.5 12RF thiamine HCl (vitamin B1) 250 mg tablet 250 mg PO DAILY gabapentin 300 mg capsule 300 mg PO TID Stiolto Respimat 2.5-2.5 mcg/actuation mist 2 puff inhalation Q24H Qty: 4 12RF loperamide [Imodium A-D] 1 mg/7.5 mL liquid 2 mg PO Q1-4H PRNQty: 120 0RF Rx Instructions: administer after each loose stool until symptoms controlled; do not exceed 16 mg per 24 hrs furosemide 20 mg tablet 20 mg PO DAILY multivitamin [Multiple Vitamins] Tablet 1 tab PO DAILY Qty: 30 0RF magnesium 250 mg tablet 250 mg PO DAILY Qty: 20 0RF ibuprofen 600 mg tablet 600 mg PO TID PRNQty: 30 0RF omeprazole 40 mg capsule,delayed release(DR/EC) 40 mg PO DAILY HPI General Date/Time Provider Initiated Documentation: 08/31/23 13:51 . Limitations to Documentation: no limitations . Information obtained by: patient, EMS, RN notes reviewed and old records revi ewed . History of Present Illness 63 year old F presents to the emergency department with the chief complaint of fatigue, nausea, vomiting, diarrhea, described as moderate, with intensity rated at 1 (denies any pain at this time). Patient started experiencing this day(s) (2) and it has been constant. No relieving factors improve symptom(s), No exacerbating factors reported . Patient notes loss of appetite, malaise and nausea/vomiting; denies chest pain, cough, diaphoresis, fever/chills, headaches, rash, shortness of breath and weakness. Patient did receive the following treatments prior to arrival, none Related Data Home Medications Medication Instructions Recorded Confirmed multivitamin (Multiple Vitamins 1 tab PO DAILY #30 tabs 08/13/20 08/31/23 tablet) albuterol sulfate 90 mcg/actuation 2 puff inhalation Q6H PRN 01/18/22 08/31/23 aerosol inhaler shortness of breath or wheezing #8.5 grams magnesium 250 mg tablet 250 mg PO DAILY #20 tabs 11/09/22 08/31/23 thiamine HCl (vitamin B1) 250 mg 250 mg PO DAILY 04/19/23 08/31/23 tablet tiotropium 2.5 mcg-olodaterol 2.5 2 puff inhalation Q24H #4 grams 05/04/23 08/31/23 mcg/actuation mist for inhalation (Stiolto Respimat) ipratropium 0.5 mg-albuterol 3 mg 3 ml inhalation Q4H PRN wheezing 05/10/23 (2.5 mg base)/3 mL nebulization #540 mL soln ibuprofen 600 mg tablet 600 mg PO TID PRN #30 tabs 05/20/23 08/31/23 gabapentin 300 mg capsule 300 mg PO TID 06/06/23 08/31/23 omeprazole 40 mg capsule,delayed 40 mg PO DAILY 06/12/23 08/31/23 release loperamide 1 mg/7.5 mL oral liquid 2 mg (15 mL) PO Q1-4H PRN #120 mL 08/02/23 08/31/23 (Imodium A-D) furosemide 20 mg tablet 20 mg PO DAILY 08/31/23 08/31/23 Previous Rx's Medication Instructions Recorded multivitamin (Multiple Vitamins 1 tab PO DAILY #30 tabs 08/13/20 tablet) albuterol sulfate 90 mcg/actuation 2 puff inhalation Q6H PRN 01/18/22 aerosol inhaler shortness of breath or wheezing #8.5 grams magnesium 250 mg tablet 250 mg PO DAILY #20 tabs 11/09/22 tiotropium 2.5 mcg-olodaterol 2.5 2 puff inhalation Q24H #4 grams 05/04/23 mcg/actuation mist for inhalation (Stiolto Respimat) ipratropium 0.5 mg-albuterol 3 mg 3 ml inhalation Q4H PRN wheezing 05/10/23 (2.5 mg base)/3 mL nebulization #540 mL soln ibuprofen 600 mg tablet 600 mg PO TID PRN #30 tabs 05/20/23 loperamide 1 mg/7.5 mL oral liquid 2 mg (15 mL) PO Q1-4H PRN #120 mL 08/02/23 (Imodium A-D) Allergies Allergy/AdvReac Type Severity Reaction Status Date / Time bacitracin Allergy Mild localized Verified 08/16/23 13:47 [From Neosporin redness ([id number])] neomycin Allergy Mild localized Verified 08/16/23 13:47 [From Neosporin redness ([id number])] polymyxin B Allergy Mild localized Verified 08/16/23 13:47 [From Neosporin redness ([id number])] General Stated Complaint: Nausea/Vomit/Diar RAHEEM: 3 Review of Systems Constitutional Constitutional: Reports as per HPI, Denies chills, Denies fever(s) and Denies headache(s) ENT Ears, Nose, Mouth, and Throat: Denies headache(s) Cardiovascular Cardiovascular: Reports as per HPI, Denies chest pain and Denies dyspnea Respiratory Respiratory: Reports as per HPI, Denies cough and Denies dyspnea Gastrointestinal Gastrointestinal: Reports as per HPI Musculoskeletal Musculoskeletal: Reports as per HPI and Denies back pain Integumentary/Breasts Skin/Breast: Reports as per HPI and Denies rash Neurologic Neurologic: Reports as per HPI and Denies headache(s) Exam Const General: cooperative, comfortable, no acute distress, well developed, frail appearing and ill appearing chronically Nutritional Appearance: average body habitus Orientation: alert and awake [facility] Head: normal to inspection Mouth: mucous membranes dry (appears dry) Resp Effort & Inspection: normal respiratory effort, able to speak in complete sentences and no respiratory distress Auscultation: clear to auscultation bilaterally, no rales, no rhonchi and no wheezes Cardio Rate: regular rate Rhythm: regular rhythm Heart Sounds: S1 normal and S2 normal GI Inspection: normal to inspection Palpation: soft, no hepatosplenomegaly, not firm, no guarding, no masses, not rigid, nontender and No ascites Back/Spine/Pelvis Back: no CVA tenderness Skin General skin exam: no rashes or lesions noted Trauma: no lacerations or abrasions Neuro General: patient alert and patient awake Cognition: normal cognition Speech: speech normal Course Vital Signs Vital signs: Vital Signs Pulse 106 H 05/01/24 13:53 Respiratory Rate 18 08/31/23 13:53 Pulse Oximetry 94 08/31/23 13:53 Temperature 36.9 C 08/31/23 14:02 Temperature Source Oral 08/31/23 14:02 Pulse 106 H 08/31/23 13:53 Respiratory Rate 18 08/31/23 13:53 Respiratory Effort Normal, Non-Labored 08/31/23 14:02 Blood Pressure Position Sitting 08/31/23 13:53 Pulse Oximetry 94 08/31/23 13:53 Oxygen Delivery Method Room Air 08/31/23 13:53 Oxygen Flow Rate 0 08/31/23 13:53 Medical Decision Making Patient is a pleasant 63 year old female well known to myself and the department, brought in via EMS with c/c of N/V/D, fatigue and weakness. States has been going on for the past 2 days. Has not had any alcohol today, reports that she typically starts drinking around 3 PM. Yesterday, she reports that she had 6 martinis. Typically drinks like this daily. She denies any fevers or chills. States that she has a cough which is baseline and she is also a smoker. No acute changes. Denies any shortness of breath. No chest pain. Her primary concern seems to be fatigue and feeling overall weak. No blood in her vomit or stool. She reports 1 episode of emesis today. States that she has had small amount of diarrhea, it was just this morning. States she has been trying to hydrate with some water but says that she has had fairly limited p.o. intake. On exam, patient appears to be at her baseline. She is tachycardic but she is normotensive. She is afebrile. Does not appear acutely septic. Her lungs are clear, normal cardiac exam. Abdomen is benign, nontender. She does appear slightly dry. Will hydrate the patient. Concern around the amount of alcohol she has on a daily basis. Considered pancreatitis. Considered infectious etiology versus malabsorption with her chronic alcohol intake. On the monitor, her QTc appears long, will obtain EKG prior to giving her any Zofran or antiemetics. She denies any chest pain or shortness of breath but considered atypical presentation of ACS as well. Also considered electrolyte abnormality given her chronic alcohol use and GI upset. Without antiemetic, patient is now requesting hydration orally. Is drinking and doing well. Labs are delayed secondary to needing repeat draws. Her lactate is elevated at 3.2. Hydrating the patient. Does not seems to be very focal for this patient. She is not having any abdominal pain. I am hesitant to get imaging as this does not seem warranted as of yet, will reevaluate and reconsider based on labs. At the end of my shift, care transition to oncoming PA with remaining labs, reassessment disposition pending. Patient resting and hemodynamically stable. Quality:SDOH Health Related Social Needs: Health related social needs inadequate housing PFSH All Active Problems (Updated 08/16/23 @ 16:52 by Philly Cisneros MD) Difficulty walking (Acute) PVD (peripheral vascular disease) (Chronic) Atherosclerosis of aorta (Acute) Leg swelling (Acute) Hypomagnesemia (Acute) Diarrhea (Acute) Acute hypokalemia (Acute) Hypoglycemia (Acute) Alcoholic ketoacidosis (Acute) Laceration of scalp (Acute) Fall (Acute) Chronic left hip pain (Acute) Contusion of hip (Acute) Closed intertrochanteric fracture of left hip (Acute) s/p IMN fixation (05/18/23) Smoker (Acute) Closed fracture of left hip (Acute) Fall (Acute) Alcohol intoxication (Acute) Anxiety (Chronic) Cavitary lesion of lung (Acute) H/O ETOH abuse (Acute) Tobacco use disorder (Acute 01/28/14) Pleural effusion (Acute) Hypomagnesemia (Acute) Fluid overload (Acute) Chest pain due to GERD (Acute) Chest wall muscle strain (Acute) Hypokalemia (Acute) COPD exacerbation (Acute) Emphysema lung (Acute) Nicotine dependence, cigarettes, uncomplicated (Acute) Atherosclerosis (Acute) Gastric wall thickening (Acute) Stenosis of right internal carotid artery (Acute) Mass of upper lobe of right lung (Acute) Alcohol abuse (Chronic) Dehydration (Acute) Diarrhea (Acute) Hypomagnesemia (Chronic) B12 deficiency (Acute) Ascites (Acute) Chronic liver disease (Chronic) Weight loss, non-intentional (Acute) Macrocytic anemia (Acute) Early satiety (Acute) Folate deficiency (Acute) Hypomagnesemia (Acute) Hypokalemia (Acute) Leg pain (Acute) Cellulitis (Acute) Bilateral leg ulcer (Acute) Medical History Pulmonary nodule COPD (chronic obstructive pulmonary disease) Hypomagnesemia Cachexia Hepatic fibrosis Ulcer of lower extremity Hair loss Vitamin D deficiency Chest pain Gastroesophageal reflux disease Hx pulmonary embolism COPD (chronic obstructive pulmonary disease) Chronic vomiting Malnutrition Frequent falls Bilateral leg pain Pancreatitis Diastolic dysfunction Folate deficiency anemia Ascites Bilateral lower extremity edema Unintentional weight loss Alcohol abuse Tobacco dependence syndrome Tobacco abuse Surgical History punch biopsy, skin of ankle, right lateral (11/24/16) negative for malignancy, sparse inflammation and reactive blood vessels foot surgery (~2000) Ligation of fallopian tube (~1999) ENT/Nasal surgery (~2007) Family History Father Lung disease Cancer Lung Social History Smoking/Tobacco Use Status: Current every day Tobacco Type: cigarettes Tobacco: How many years used: 45 Quit status: considering quitting Second Hand Exposure: Yes Smoking risk assessment performed?: Yes Alcohol Intake: current Alcohol Intake frequency: 3 or more drinks per day Alcohol type: wine and hard liquor Counseling given: Yes Counseling provided: provider counseling Drug use: Rarely Substance use type: marijuana Details: daily drinker, presents to [facility] under the influence of ETOH, states I didn't have much, 3 or 4 lemon drop martinis and a couple, maybe three or four hot toddies Housing: apartment Current gender identity: female Do you feel safe at home: Yes Do you feel safe in your relationship?: Yes Additional Social history: 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 Grew up in [facility], sisters in area. History History Para 0 Hx # Term Pregnancies Multiple births Hx # Pregnancies Ectopic pregnancies AB induced Hx Number of Living Children AB spontaneous PAWSS Have you Been Recently Intoxicated or Drunk Within the Last 30 days?: No Have you Ever Experienced Previous Episodes of Alcohol Withdrawal?: No Have you ever Experienced Withdrawal Seizures?: No Have you ever Experienced Delirium Tremens(DT)s?: No Have you ever undergone Alcohol Rehabilitation Treatment (i.e, inpt ot outpatient treatment programs)?: No Have you ever Experienced Blackouts?: No Have you ever Combined Alcohol with other Downers within the last 90 days?: No Have you ever Combined Alcohol with any other Substance of Abuse during the last 90 days?: No Positive Blood Alcohol level on Presentation? [PCS.BAL]: No Evidence of Increased Autonomic Activity (i.e. HR>120, tremor, sweating, agitation, nausea)?: No Result: 0
[2023-08-31 14:28] LABS: Abs Immature Grans 0.07 10^3/uL (0.0-0.06); Absolute Basophil Count 0.04 10^3/uL (0.0-0.2); Absolute Eosinophil Count 0.01 10^3/uL (0.0-0.7); Absolute Lymphocyte Count 0.97 10^3/uL (1.2-3.4); Absolute Monocyte Count 0.71 10^3/uL (0.1-0.8); Absolute Neutrophil Count 7.02 10^3/uL (1.2-6.7); Basophils % 0.5 %; Eosinophils % 0.1 %; HCT 36.7 % (36.0-46.0); HGB 12.9 g/dL (11.2-15.7); Immature Grans % 0.8 %; MCH 35.4 pg (27.0-33.0); MCHC 35.1 % (32.0-36.0); MCV 101 fL (80-95); MPV 10.3 fL (8.0-11.0); Neutrophils % 79.6 %; Platelet Count 340 10^3/uL (130-400); RBC 3.64 10^6/uL (3.93-5.22); RDW 16.4 % (11.7-14.6); RDW-SD 60.7 fL; WBC 8.82 10^3/uL (4.4-10.8)
[2023-08-31] MEDS: Lactated Ringers 1,000 ML 1000 ML IV ×2 (14:30→16:30)
[2023-08-31] MEDS: THIAMINE 100 MG in Normal Saline 100 ML 200 MG IVPB (15:02)
[2023-08-31 15:44] LABS: Ammonia 31 umol/L (11-32)
[2023-08-31 15:48] LABS: Troponin I < 50 ng/L (< or =60)
[2023-08-31 15:54] LABS: ALT 15 U/L (14-59); AST 41 U/L (15-37); Alkaline Phosphatase 212 U/L (46-116); Anion Gap 6.7 mmol/L (3-11); BUN 4 mg/dL (7-18); Bilirubin, Total 1.1 mg/dL (0.2-1.0); CO2 32.3 mmol/L (21.0-32.0); CREATININE 0.7 mg/dL (0.55-1.02); Chloride 92 mmol/L (98-107); Estimated GFR 97.72 (mL/min/1.73m2); Glucose 93 mg/dL (74-106); Lipase 14 U/L (16-77); Magnesium 1.3 mg/dL (1.8-2.4); Sodium 131 mmol/L (136-145); TSH 1.45 uIU/Ml (0.36-3.74); Total Protein 5.6 g/dL (6.4-8.2)
[2023-08-31 15:56] LABS: Potassium 2.8 mmol/L (3.5-5.1)
--- NOTE | 2023-08-31 15:58 | W.EDPROG ---
Date of service: 08/31/23 Time of Service: 15:58 Medical Decision Making This dictation utilizes [id number] dictation software and may contain unedited grammatical errors. Patient seen in signout from Padmini alberto PA-C, please see her complete note. Essentially, 63 y/o F presents to ED today with a chief complaint of generalized weakness, 2 days of some diarrhea and vomiting. Patient is a chronic alcoholic has about 6 drinks per day of hard liquor, prefers lemon drop martinis. Has known chronic liver dysfunction, chronic alkalosis, many other comorbidities. Vitals have been stable throughout the visit and patient was signed out to me in stable condition, she is resting, doodling art in ED exam room- symptomatically improved. Signed out to me awaiting recheck repletion of potassium, had initial lactate that was elevated but this is noted to be chronic in the past many other visits. Patients' medical history: History of electrolyte derangement, peripheral vascular disease, alcoholic ketoacidosis, chronic left hip pain, COPD, active smoker, GERD, B12 deficiency. Family and social history: Drinks about 6 drinks per day, lives at home, poor diet intake. Differential / pathologies of concern include hypokalemia, hypomagnesemia, liver disease, chronic hepatitis, sepsis. Diagnostic studies of: -Reviewed labs performed by Padmini santiago PA-C, shows low magnesium and potassium which were already in process of repletion, noted elevated lactate of 3.2 which is chronic baseline history. -Recheck of BMP shows potassium of 5.1, lactate increased despite fluid resuscitation but the patient is chronically in a state of elevated lactate Interventions of: -Patient received IV and p.o. potassium, IV and p.o. magnesium, IV thiamine as well as 2 L of fluid. ED Course/Assessment/Plan: Upon receiving fluid and electrolyte repletion the patient noted improved symptoms, generalized weakness was far improved. She was comfortable with discharge home, I see no reason to suspect sepsis as the patient has been afebrile, she did have findings on her lab workup consistent with her mild GI losses, I do suspect she has a chronic alkalosis and I do not think it would be beneficiary to have the patient be admitted at this time, she is comfortable with discharge home. Findings not consistent with sepsis, severe hypokalemia with EKG changes, ACS, serial troponins negative. Disposition of Hypokalemia, Hypomagnesemia. Patient verbalized understanding of the plan and return to ED criteria and engaged in shared decision making. Medical Records Medical records reviewed: Yes I reviewed the patient's medical records. Lab Data Lab results reviewed: Yes I reviewed the patient's lab results. Labs: Laboratory Tests Range/Units 08/31/23 08/31/23 08/31/23 14:17 14:40 15:07 WBC (4.4-10.8) 10^3/uL 8.82 RBC (3.93-5.22) 10^6/uL 3.64 L Hgb (11.2-15.7) g/dL 12.9 Hct (36.0-46.0) % 36.7 MCV (80-95) fL 101 H MCH (27.0-33.0) pg 35.4 H MCHC (32.0-36.0) % 35.1 RDW (11.7-14.6) % 16.4 H Plt Count (130-400) 10^3/uL 340 MPV (8.0-11.0) fL 10.3 Immature Gran % % 0.8 Neutrophils % % 79.6 Lymphocytes % % 11.0 Monocytes % % 8.0 Eosinophils % % 0.1 Basophils % % 0.5 Nucleated RBC % (0.0-0.3) % 0.0 Absolute Neutrophils (1.2-6.7) 10^3/uL 7.02 H Absolute Lymphocytes (1.2-3.4) 10^3/uL 0.97 L Absolute Monocytes (0.1-0.8) 10^3/uL 0.71 Absolute Eosinophils (0.0-0.7) 10^3/uL 0.01 Absolute Basophils (0.0-0.2) 10^3/uL 0.04 VBG pH (7.31-7.41) VBG pCO2 (41-51) mmHg VBG pO2 mmHg VBG HCO3 (23-28) mmol/L VBG Total CO2 (24-29) mmol/L VBG O2 Saturation % VBG Base Excess (-2-3) mmol/L VBG Lactate (0.6-1.4) mmol/L 3.2 H* Sodium Cancelled Cancelled 131 L Potassium Cancelled Cancelled 2.8 L* Chloride Cancelled Cancelled 92 L Carbon Dioxide Cancelled Cancelled 32.3 H Anion Gap Cancelled Cancelled 6.7 BUN Cancelled Cancelled 4 L Creatinine Cancelled Cancelled 0.7 Est GFR (CKD-EPI 2020) Cancelled Cancelled 97.72 Glucose Cancelled Cancelled 93 Calcium Cancelled Cancelled 8.0 L Magnesium Cancelled Cancelled 1.3 L Total Bilirubin Cancelled Cancelled 1.1 H AST Cancelled Cancelled 41 H ALT Cancelled Cancelled 15 Alkaline Phosphatase Cancelled Cancelled 212 H Ammonia Cancelled 31 Troponin I (< or =60) ng/L < 50 < 50 Total Protein Cancelled Cancelled 5.6 L Albumin Cancelled Cancelled 2.0 L Lipase Cancelled Cancelled 14 L Procalcitonin ng/mL TSH Cancelled 1.45 Range/Units 08/31/23 08/31/23 08/31/23 17:03 18:12 19:00 WBC (4.4-10.8) 10^3/uL RBC (3.93-5.22) 10^6/uL Hgb (11.2-15.7) g/dL Hct (36.0-46.0) % MCV (80-95) fL MCH (27.0-33.0) pg MCHC (32.0-36.0) % RDW (11.7-14.6) % Plt Count (130-400) 10^3/uL MPV (8.0-11.0) fL Immature Gran % % Neutrophils % % Lymphocytes % % Monocytes % % Eosinophils % % Basophils % % Nucleated RBC % (0.0-0.3) % Absolute Neutrophils (1.2-6.7) 10^3/uL Absolute Lymphocytes (1.2-3.4) 10^3/uL Absolute Monocytes (0.1-0.8) 10^3/uL Absolute Eosinophils (0.0-0.7) 10^3/uL Absolute Basophils (0.0-0.2) 10^3/uL VBG pH (7.31-7.41) 7.59 H VBG pCO2 (41-51) mmHg 33 L VBG pO2 mmHg 35 VBG HCO3 (23-28) mmol/L 31 H VBG Total CO2 (24-29) mmol/L 28 VBG O2 Saturation % 67 VBG Base Excess (-2-3) mmol/L 9 H VBG Lactate (0.6-1.4) mmol/L 3.5 H* Sodium 127 L Potassium 5.1 D Chloride 94 L Carbon Dioxide 29.7 Anion Gap 3.3 BUN 4 L Creatinine 0.7 Est GFR (CKD-EPI 2020) 97.72 Glucose 93 Calcium 7.6 L Magnesium Total Bilirubin AST ALT Alkaline Phosphatase Ammonia Troponin I (< or =60) ng/L Cancelled Total Protein Albumin Lipase Procalcitonin ng/mL 0.4 TSH Quality:SDOH Health Related Social Needs: Health related social needs inadequate housing Sign Out Sign Out Data: Sign Out Comment: Care transitioned to Cyrus Zheng PA-C, with labs and disposition pending. Receiving hydration. Stable. Elevated lactate, will need repeat. Last updated by Padmini Perkins PA at 08/31/23 15:53 Discharge Plan Disposition Patient Disposition: Home Condition: Stable Discharge Details Clinical Impression: Hypokalemia, Hypomagnesemia Primary Care Provider: MARIANO KEARNEY ED Provider: Walter Zheng Home Meds and New Rx's Prescriptions: Continued ipratropium-albuterol 0.5 mg-3 mg(2.5 mg base)/3 mL solution for nebulization 3 ml inhalation Q4H PRN (Reason: wheezing) Qty: 540 8RF albuterol sulfate 90 mcg/actuation HFA aerosol inhaler 2 puff inhalation Q6H PRN (Reason: shortness of breath or wheezing) Qty: 8.5 12RF thiamine HCl (vitamin B1) 250 mg tablet 250 mg PO DAILY gabapentin 300 mg capsule 300 mg PO TID Stiolto Respimat 2.5-2.5 mcg/actuation mist 2 puff inhalation Q24H Qty: 4 12RF loperamide [Imodium A-D] 1 mg/7.5 mL liquid 2 mg PO Q1-4H PRNQty: 120 0RF Rx Instructions: administer after each loose stool until symptoms controlled; do not exceed 16 mg per 24 hrs furosemide 20 mg tablet 20 mg PO DAILY multivitamin [Multiple Vitamins] Tablet 1 tab PO DAILY Qty: 30 0RF magnesium 250 mg tablet 250 mg PO DAILY Qty: 20 0RF ibuprofen 600 mg tablet 600 mg PO TID PRNQty: 30 0RF omeprazole 40 mg capsule,delayed release(DR/EC) 40 mg PO DAILY Discharge Instructions Instructions: Hypokalemia (ED), Hypomagnesemia (ED) Additional Instructions: You were seen in the emergency department for your complaint of generalized weakness with some diarrhea and vomiting. We found that you had low potassium and low magnesium repleted these. They were rechecked and are normal. We found no other acute abnormalities on her labs, you do have elevated lactate but this has been consistent in the past and is likely due to your chronic liver dysfunction. You also have an acid-base disorder that is chronic and is at its baseline. We found no evidence to suggest severe infection and you are resting comfortably and noted improvement in her symptoms. We are discharging you home, please try to eat a healthy diet and stay well-hydrated. Please return to the ED for any emergent concerns like profound weakness, intractable nausea or vomiting, diarrhea, fever, severe abdominal pain, feelings of near fainting. Referrals: MARIANO KEARNEY, OXYGEN THERAPY TEACHER [Primary Care Provider] -
[2023-08-31 16:26] LABS: Troponin I < 50 ng/L (< or =60)
[2023-08-31] MEDS: MAGNESIUM SULFATE 2 GM/50 ML BAG IVINF (16:40)
[2023-08-31] MEDS: Potassium Chloride 20 MEQ TABCR 40 MEQ PO (16:40)
[2023-08-31] MEDS: Magnesium Oxide 400 MG TAB PO (16:41)
[2023-08-31] MEDS: POTASSIUM CHLORIDE 20 MEQ/100 ML BAG 50 MEQ IVINF ×2 (16:41→19:02)
--- NOTE | 2023-08-31 16:59 | NUR.NOTE ---
Pt rings and c/o burning pain located at IV site. Provider consulted and advised this nurse to reduce speed that K+ is being infused. Rate adjusted from 10 meq to 5 meq/h at this time by this nurse. . Nursing Note:
--- NOTE | 2023-08-31 17:00 | RT.EKG_ITS ---
APPROVED REPORT Exam: Resting ECG Reason for Exam: electrolyte abnormality Patient Location: E HR:90 bpm ECG Measurements Heart Rate 90 AXIS [place] 149 P 72 QRSd 128 QRS 44 QT 435 T 17 QTc 532 Conclusion Sinus rhythm. 90 RBBB no stemi
--- NOTE | 2023-08-31 18:31 | NUR.NOTE ---
PT c/o increased anxiety asks for something just so I can sleep Provider aware. No new orders at this time. PT also states to this nurse if they are going to keep me I just assume go up there so I can get the TV going Nursing Note:
[2023-08-31 19:05] LABS: Lactate 3.5 mmol/L (0.6-1.4)
[2023-08-31 19:07] LABS: Anion Gap 3.3 mmol/L (3-11); BUN 4 mg/dL (7-18); CO2 29.7 mmol/L (21.0-32.0); CREATININE 0.7 mg/dL (0.55-1.02); Calcium 7.6 mg/dL (8.5-10.1); Chloride 94 mmol/L (98-107); Estimated GFR 97.72 (mL/min/1.73m2); Glucose 93 mg/dL (74-106); Sodium 127 mmol/L (136-145)
[2023-08-31 19:12] LABS: Potassium 5.1 mmol/L (3.5-5.1)
[2023-08-31 19:41] LABS: BE (Venous) 9 mmol/L (-2-3); HCO3 (Venous) 31 mmol/L (23-28); O2 Sat (Venous) 67 %; TCO2 (Venous) 28 mmol/L (24-29); pCO2 (Venous) 33 mmHg (41-51); pH (Venous) 7.59 (7.31-7.41); pO2 (Venous) 35 mmHg
[2023-08-31 20:11] LABS: Procalcitonin 0.4 ng/mL
[2023-09-07 09:02] LABS: Lactate 3.2 mmol/L (0.6-1.4)
== END 2023-08-31 20:40 | disposition home or self-care (01) ==
PROVIDERS: Physician Assistant; Emergency Provider Physician Assistant; PCP Nurse Practitioner Family
DX: E87.6 Hypokalemia (principal); E83.42 Hypomagnesemia; I45.19 Other right bundle-branch block; J44.9 Chronic obstructive pulmonary disease, unspecified; Z86.711 Personal history of pulmonary embolism
CPT/HCPCS: 00123; 36415; 80048; 80053; 82805; 83690; 84145; 93005; 96361; 96365; 96366; 96367; 99284; 82140; 83605; 83735; 84443; 84484; 85025; 93010; J3411; J3475; J3480

== ENCOUNTER 2023-09-07 10:54 | Emergency (ER) | payer BC, SELFPAY ==
[2023-09-07] VITALS (25 sets, daily range): BP systolic 75–125; BP diastolic 52–89; PULSE 82–104; RESP 11–21; TEMP 36.3; O2SAT 89–100
--- NOTE | 2023-09-07 11:15 | RT.EKG_ITS ---
APPROVED REPORT Exam: Resting ECG Reason for Exam: bilateral foot pain and redness Patient Location: E HR:83 bpm ECG Measurements Heart Rate 83 AXIS W[place] 135 P 44 QRSd 118 QRS 8 QT 447 T 15 QTc 520 Conclusion Sinus rhythm...normal P axis, V-rate 60- 99 Atrial premature complex...SV complex w/ short R-R interval Probable left atrial enlargement...P >50mS, <-0.10mV V1 Incomplete right bundle branch block...QRSd >112, terminal axis(90,270) Prolonged QT interval...QTc >500mS
[2023-09-07] MEDS: Ketorolac 15 MG/ML VIAL 7.5 MG IVP (11:34)
[2023-09-07] MEDS: Lactated Ringers 1,000 ML 300 ML IV (11:53)
[2023-09-07 11:57] LABS: Abs Immature Grans 0.05 10^3/uL (0.0-0.06); Absolute Basophil Count 0.05 10^3/uL (0.0-0.2); Absolute Eosinophil Count 0.05 10^3/uL (0.0-0.7); Absolute Lymphocyte Count 0.84 10^3/uL (1.2-3.4); Absolute Monocyte Count 0.63 10^3/uL (0.1-0.8); Absolute Neutrophil Count 5.34 10^3/uL (1.2-6.7); Basophils % 0.7 %; Eosinophils % 0.7 %; HCT 33.7 % (36.0-46.0); HGB 11.7 g/dL (11.2-15.7); Immature Grans % 0.7 %; Lymphocytes % 12.1 %; MCH 35.6 pg (27.0-33.0); MCHC 34.7 % (32.0-36.0); MCV 102 fL (80-95); Monocytes % 9.1 %; Neutrophils % 76.7 %; Platelet Count 348 10^3/uL (130-400); RBC 3.29 10^6/uL (3.93-5.22); RDW 16.8 % (11.7-14.6); RDW-SD 62.9 fL; WBC 6.96 10^3/uL (4.4-10.8)
[2023-09-07 12:09] LABS: Magnesium 1.4 mg/dL (1.8-2.4)
[2023-09-07 12:12] LABS: ETHANOL BLOOD < 3.0 mg/dL (<10)
[2023-09-07 12:15] LABS: ALT 76 U/L (14-59); AST 253 U/L (15-37); Albumin 2.2 g/dL (3.4-5.0); Alkaline Phosphatase 192 U/L (46-116); Anion Gap 10.2 mmol/L (3-11); BUN 5 mg/dL (7-18); Bilirubin, Total 0.8 mg/dL (0.2-1.0); CO2 27.8 mmol/L (21.0-32.0); CREATININE 0.6 mg/dL (0.55-1.02); Calcium 8.3 mg/dL (8.5-10.1); Chloride 95 mmol/L (98-107); Estimated GFR 101.42 (mL/min/1.73m2); Glucose 87 mg/dL (74-106); Potassium 3.4 mmol/L (3.5-5.1); Sodium 133 mmol/L (136-145); Total Protein 5.9 g/dL (6.4-8.2)
[2023-09-07 12:18] LABS: C-Reactive Protein < 0.50 mg/dL (<or=0.5)
--- NOTE | 2023-09-07 12:20 | DI.RAD_ITS ---
Exam(s) XR CHEST 2V PA LATERAL EXAM: XR CHEST 2V PA LATERAL CLINICAL HISTORY: peripheral edema TECHNIQUE: 2D digital imaging was performed. Two views. COMPARISON: CR,XR XR PORTABLE CHEST AP from 07/05/[address] ABD AORTA CTA W RUNOFF from 08/16/2023 FINDINGS: HEART: Normal size. Mitral annular calcification. Aorta: Not dilated. PULMONARY VASCULATURE: Normal mildly prominent. Mildly increased interstitial markings could indicat e mild CHF. LUNGS: Clear. PLEURAL SPACE: Small left pleural effusion. BONE:Unremarkable for age. Soft tissues: Unremarkable severe vascular calcifications. IMPRESSION: Small left pleural effusion. Mild CHF DATA REPOSITORY: RADIATION DOSE DELIVERED:
--- NOTE | 2023-09-07 12:22 | DI.RAD_ITS ---
Exam(s) XR FOOT RT COMPLETE EXAM: XR FOOT RT COMPLETE CLINICAL HISTORY: bilateral foot pain and redness. TECHNIQUE: 2D digital imaging was performed. Three views. COMPARISON: CR XR FOOT LT COMPLETE from 09/07/2023 FINDINGS: BONES: No acute fracture is present. No bony destructive lesion is seen. The bones appear osteopenic . JOINTS: No dislocation present. SOFT TISSUE: Significant soft tissue edema. No foreign body or abnormal gas collection. IMPRESSION: Soft tissue swelling. DATA REPOSITORY: RADIATION DOSE DELIVERED:
--- NOTE | 2023-09-07 12:22 | DI.RAD_ITS ---
Exam(s) XR FOOT LT COMPLETE EXAM: XR FOOT LT COMPLETE CLINICAL HISTORY: bilateral foot pain and redness. TECHNIQUE: 2D digital imaging was performed. Three views. COMPARISON: CR RIGHT FOOT COMPLETE from 11/21/2016 FINDINGS: BONES: No acute fracture is present. No bony destructive lesion is seen. Chronic appearing deformity the middle phalanges of the 3rd and 4th toes. Post appear osteoporotic. JOINTS: No dislocation present. SOFT TISSUE: Soft tissue swelling greater over over the dorsum of the foot. No foreign body or abnor mal gas collection. IMPRESSION: Soft tissue swelling. DATA REPOSITORY: RADIATION DOSE DELIVERED:
[2023-09-07] MEDS: Furosemide 20 MG/2 ML VIAL IVP (12:33)
--- NOTE | 2023-09-08 12:14 | W.ED.GENAD ---
Discharge Plan Discharge Details Chief Complaint: Cellulitis Primary Care Provider: MARIANO KEARNEY ED Provider: Leanna Wang Home Meds and New Rx's Prescriptions: New cephalexin 500 mg capsule 500 mg PO Q6H 10 Days Qty: 40 0RF No Action ipratropium-albuterol 0.5 mg-3 mg(2.5 mg base)/3 mL solution for nebulization 3 ml inhalation Q4H PRN (Reason: wheezing) Qty: 540 8RF albuterol sulfate 90 mcg/actuation HFA aerosol inhaler 2 puff inhalation Q6H PRN (Reason: shortness of breath or wheezing) Qty: 8.5 12RF thiamine HCl (vitamin B1) 250 mg tablet 250 mg PO DAILY gabapentin 300 mg capsule 300 mg PO TID Stiolto Respimat 2.5-2.5 mcg/actuation mist 2 puff inhalation Q24H Qty: 4 12RF loperamide [Imodium A-D] 1 mg/7.5 mL liquid 2 mg PO Q1-4H PRNQty: 120 0RF Rx Instructions: administer after each loose stool until symptoms controlled; do not exceed 16 mg per 24 hrs furosemide 20 mg tablet 20 mg PO DAILY multivitamin [Multiple Vitamins] Tablet 1 tab PO DAILY Qty: 30 0RF magnesium 250 mg tablet 250 mg PO DAILY Qty: 20 0RF ibuprofen 600 mg tablet 600 mg PO TID PRNQty: 30 0RF omeprazole 40 mg capsule,delayed release(DR/EC) 40 mg PO DAILY Discharge Data Discharge Date/Time-TO BE ENTERED AT DEPARTURE: 09/07/23 13:50 HPI General Date/Time Provider Initiated Documentation: 09/07/23 11:01. HPI Narrative: This 63-year-old female known to this facility past medical history significant for chronic alcoholism, alcoholic acidosis, hypokalemia, hypomagnesemia, recent hip fracture presents with report recent hip fracture. presents with report of bilateral lower extremity edema and pain. Patient states that she had this intermittent late and has been having difficulty ambulating at her home secondary to discomfort. She continues to consume alcohol her last drink was last evening denies history of prior alcohol withdrawal. Denies fever or chills. States that she cannot do this anymore Related Data Home Medications Medication Instructions Recorded Confirmed multivitamin (Multiple Vitamins 1 tab PO DAILY #30 tabs 08/13/20 09/07/23 tablet) albuterol sulfate 90 mcg/actuation 2 puff inhalation Q6H PRN 01/18/22 09/07/23 aerosol inhaler shortness of breath or wheezing #8.5 grams magnesium 250 mg tablet 250 mg PO DAILY #20 tabs 11/09/22 09/07/23 thiamine HCl (vitamin B1) 250 mg 250 mg PO DAILY 04/19/23 09/07/23 tablet tiotropium 2.5 mcg-olodaterol 2.5 2 puff inhalation Q24H #4 grams 05/04/23 09/07/23 mcg/actuation mist for inhalation (Stiolto Respimat) ipratropium 0.5 mg-albuterol 3 mg 3 ml inhalation Q4H PRN wheezing 05/10/23 09/07/23 (2.5 mg base)/3 mL nebulization #540 mL soln ibuprofen 600 mg tablet 600 mg PO TID PRN #30 tabs 05/20/23 09/07/23 gabapentin 300 mg capsule 300 mg PO TID 06/06/23 09/07/23 omeprazole 40 mg capsule,delayed 40 mg PO DAILY 06/12/23 09/07/23 release loperamide 1 mg/7.5 mL oral liquid 2 mg (15 mL) PO Q1-4H PRN #120 mL 08/02/23 09/07/23 (Imodium A-D) furosemide 20 mg tablet 20 mg PO DAILY 08/31/23 09/07/23 cephalexin 500 mg capsule 500 mg PO Q6H 10 days #40 caps 09/07/23 Previous Rx's Medication Instructions Recorded multivitamin (Multiple Vitamins 1 tab PO DAILY #30 tabs 08/13/20 tablet) albuterol sulfate 90 mcg/actuation 2 puff inhalation Q6H PRN 01/18/22 aerosol inhaler shortness of breath or wheezing #8.5 grams magnesium 250 mg tablet 250 mg PO DAILY #20 tabs 11/09/22 tiotropium 2.5 mcg-olodaterol 2.5 2 puff inhalation Q24H #4 grams 05/04/23 mcg/actuation mist for inhalation (Stiolto Respimat) ipratropium 0.5 mg-albuterol 3 mg 3 ml inhalation Q4H PRN wheezing 05/10/23 (2.5 mg base)/3 mL nebulization #540 mL soln ibuprofen 600 mg tablet 600 mg PO TID PRN #30 tabs 05/20/23 loperamide 1 mg/7.5 mL oral liquid 2 mg (15 mL) PO Q1-4H PRN #120 mL 08/02/23 (Imodium A-D) cephalexin 500 mg capsule 500 mg PO Q6H 10 days #40 caps 09/07/23 Allergies Allergy/AdvReac Type Severity Reaction Status Date / Time bacitracin Allergy Mild localized Verified 09/07/23 11:12 [From Neosporin redness ([id number])] neomycin Allergy Mild localized Verified 09/07/23 11:12 [From Neosporin redness ([id number])] polymyxin B Allergy Mild localized Verified 09/07/23 11:12 [From Neosporin redness ([id number])] General Stated Complaint: Cellulitis RAHEEM: 3 Exam Narrative Exam Narrative: Disheveled 63-year-old female, alert and oriented x 4 no obvious signs of alcohol withdrawal, with negative membranes, pupils equal round reactive to light and accommodation, no midline neck tenderness, lungs clear to auscultation bilaterally, cardiac rate rhythm regular, no abdominal tenderness, bilateral erythema and significant edema to bilateral lower extremities ending just proximal to the knee, 4+ edema, no crepitus, neurovascularly intact. Course Vital Signs Vital signs: Vital Signs Temperature 36.3 C L 09/07/23 10:56 Pulse 89 09/07/23 10:56 Respiratory Rate 16 09/07/23 10:56 Blood Pressure 75/52 L 09/07/23 10:56 Temperature 36.3 C L 09/07/23 13:52 Pulse 90 09/07/23 13:52 Pulse 93 H 09/07/23 13:20 Respiratory Rate 13 09/07/23 13:52 Respiratory Effort Normal 09/07/23 11:02 Blood Pressure 92/69 L 09/07/23 13:52 Blood Pressure Mean 75 09/07/23 13:16 Pulse Oximetry 98 09/07/23 13:52 Oxygen Delivery Method Room Air 09/07/23 13:52 Oxygen Flow Rate 0 09/07/23 10:56 Pain Level 10 09/07/23 13:52 Lab/Test Results Lab/Test Results: Laboratory Tests Range/Units 09/07/23 09/07/23 11:50 13:08 WBC (4.4-10.8) 10^3/uL 6.96 RBC (3.93-5.22) 10^6/uL 3.29 L Hgb (11.2-15.7) g/dL 11.7 Hct (36.0-46.0) % 33.7 L MCV (80-95) fL 102 H MCH (27.0-33.0) pg 35.6 H MCHC (32.0-36.0) % 34.7 RDW (11.7-14.6) % 16.8 H Plt Count (130-400) 10^3/uL 348 MPV (8.0-11.0) fL 10.0 Immature Gran % % 0.7 Neutrophils % % 76.7 Lymphocytes % % 12.1 Monocytes % % 9.1 Eosinophils % % 0.7 Basophils % % 0.7 Nucleated RBC % (0.0-0.3) % 0.0 Absolute Neutrophils (1.2-6.7) 10^3/uL 5.34 Absolute Lymphocytes (1.2-3.4) 10^3/uL 0.84 L Absolute Monocytes (0.1-0.8) 10^3/uL 0.63 Absolute Eosinophils (0.0-0.7) 10^3/uL 0.05 Absolute Basophils (0.0-0.2) 10^3/uL 0.05 VBG Lactate (0.6-1.4) mmol/L 2.0 H Sodium (136-145) mmol/L 133 L Potassium (3.5-5.1) mmol/L 3.4 L Chloride (98-107) mmol/L 95 L Carbon Dioxide (21.0-32.0) mmol/L 27.8 Anion Gap (3-11) mmol/L 10.2 BUN (7-18) mg/dL 5 L Creatinine (0.55-1.02) mg/dL 0.6 Est GFR (CKD-EPI 2020) (mL/min/1.73m2) 101.42 Glucose (74-106) mg/dL 87 Calcium (8.5-10.1) mg/dL 8.3 L Magnesium (1.8-2.4) mg/dL 1.4 L Total Bilirubin (0.2-1.0) mg/dL 0.8 AST (15-37) U/L 253 H ALT (14-59) U/L 76 H Alkaline Phosphatase (46-116) U/L 192 H C-Reactive Protein (<or=0.5) mg/dL < 0.50 Total Protein (6.4-8.2) g/dL 5.9 L Albumin (3.4-5.0) g/dL 2.2 L Cancelled Procalcitonin ng/mL 7.0 Ethyl Alcohol (<10) mg/dL < 3.0 Medical Decision Making 83-year-old female known to this facility presenting for multitude of chronic issues acute exacerbation with significant peripheral edema erythema noted bilaterally without crepitus and neurovascularly intact. Patient has concerning labs and is hypotensive. CBC with without leukocytosis, magnesium of 1.4., alt of 76 , etoh <3 procalcitonin elevated at 7 and lactate of 2.1. Recommended IV fluid resuscitation for hypotensive resuscitation, secondary likely due to dehydration, lower suspicion for acute CHF and suspect peripheral edema in conjunction with peripheral vascular disease pulses are dopplerable in bilateral lower extremities. Mag will be resuscitated with 4 g of IV magnesium, however secondary to hypotension will hold until after 1 L of IV fluids. Patient becomes quite irritated regarding longevity of her stay which really was approximately 90 minutes and is requesting to leave and alert, oriented, and of decisional capacity. Pt is aware that she is leaving against our medical recommendation. pt would benefit from fluid resuscitation, mag repletion, IV antibiotics, IV diuresis, and alcohol cessation. return precautions reviewed and pt expressed understanding. Fannie is aware she is leavning against our medical recommendation and is at risk for further deterioration and even . i spent approximately 5 minutes reviewed pt's last two ED visits including diagnostic labs and dc summaries. prescription for keflex was sent to pt's pharmacy and pt is instructed to take 2x magnesium currently prescribed. Quality:SDOH Health Related Social Needs: Health related social needs inadequate housing PFSH All Active Problems (Updated 09/02/23 @ 00:05 by CODY ZHU) Hypomagnesemia (Acute) Hypokalemia (Acute) Difficulty walking (Acute) PVD (peripheral vascular disease) (Chronic) Atherosclerosis of aorta (Acute) Leg swelling (Acute) Acute hypokalemia (Acute) Hypoglycemia (Acute) Alcoholic ketoacidosis (Acute) Laceration of scalp (Acute) Fall (Acute) Chronic left hip pain (Acute) Contusion of hip (Acute) Closed intertrochanteric fracture of left hip (Acute) s/p IMN fixation (05/18/23) Smoker (Acute) Closed fracture of left hip (Acute) Fall (Acute) Alcohol intoxication (Acute) Anxiety (Chronic) Cavitary lesion of lung (Acute) H/O ETOH abuse (Acute) Tobacco use disorder (Acute 01/28/14) Pleural effusion (Acute) Hypomagnesemia (Acute) Fluid overload (Acute) Chest pain due to GERD (Acute) Chest wall muscle strain (Acute) Hypokalemia (Acute) COPD exacerbation (Acute) Emphysema lung (Acute) Nicotine dependence, cigarettes, uncomplicated (Acute) Atherosclerosis (Acute) Gastric wall thickening (Acute) Stenosis of right internal carotid artery (Acute) Mass of upper lobe of right lung (Acute) Alcohol abuse (Chronic) Dehydration (Acute) Diarrhea (Acute) Hypomagnesemia (Chronic) B12 deficiency (Acute) Ascites (Acute) Chronic liver disease (Chronic) Weight loss, non-intentional (Acute) Macrocytic anemia (Acute) Early satiety (Acute) Folate deficiency (Acute) Hypomagnesemia (Acute) Hypokalemia (Acute) Leg pain (Acute) Cellulitis (Acute) Bilateral leg ulcer (Acute) Medical History Pulmonary nodule COPD (chronic obstructive pulmonary disease) Hypomagnesemia Cachexia Hepatic fibrosis Ulcer of lower extremity Hair loss Vitamin D deficiency Chest pain Gastroesophageal reflux disease Hx pulmonary embolism COPD (chronic obstructive pulmonary disease) Chronic vomiting Malnutrition Frequent falls Bilateral leg pain Pancreatitis Diastolic dysfunction Folate deficiency anemia Ascites Bilateral lower extremity edema Unintentional weight loss Alcohol abuse Tobacco dependence syndrome Tobacco abuse Surgical History punch biopsy, skin of ankle, right lateral (11/24/16) negative for malignancy, sparse inflammation and reactive blood vessels foot surgery (~2000) Ligation of fallopian tube (~1999) ENT/Nasal surgery (~2007) Family History Father Lung disease Cancer Lung Social History Smoking/Tobacco Use Status: Current every day Tobacco Type: cigarettes Tobacco: How many years used: 45 Quit status: considering quitting Second Hand Exposure: Yes Smoking risk assessment performed?: Yes Alcohol Intake: current Alcohol Intake frequency: 3 or more drinks per day Alcohol type: wine and hard liquor Counseling given: Yes Counseling provided: provider counseling Drug use: Rarely Substance use type: marijuana Details: daily drinker, presents to [facility] under the influence of ETOH, states I didn't have much, 3 or 4 lemon drop martinis and a couple, maybe three or four hot toddies Housing: apartment Current gender identity: female Do you feel safe at home: Yes Do you feel safe in your relationship?: Yes Additional Social history: Lives alone in studio in [facility], 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 Grew up in [facility], sisters in area. History History Para 0 Hx # Term Pregnancies Multiple births Hx # Pregnancies Ectopic pregnancies AB induced Hx Number of Living Children AB spontaneous
== END 2023-09-07 13:50 | disposition left against medical advice (07) ==
PROVIDERS: Emergency Provider Physician Assistant; PCP Nurse Practitioner Family
DX: M79.661 Pain in right lower leg (principal); M79.662 Pain in left lower leg; E83.42 Hypomagnesemia; E87.6 Hypokalemia; J44.9 Chronic obstructive pulmonary disease, unspecified; I45.19 Other right bundle-branch block; F10.20 Alcohol dependence, uncomplicated; F17.210 Nicotine dependence, cigarettes, uncomplicated; Z53.29 Procedure and treatment not carried out because of patient's decision for other reasons
CPT/HCPCS: 80053; 84145; 87040; 93005; 96374; 99284; 71046; 73630; 80320; 82040; 83605; 83735; 85025; 86140; 93010; J1885; J1941

== ENCOUNTER 2023-09-13 17:28 | Inpatient (IN) | payer BC, SELFPAY ==
[2023-09-13] VITALS (72 sets, daily range): BP systolic 68–145; BP diastolic 35–85; PULSE 82–111; RESP 18–20; TEMP 36.6–36.7; O2SAT 87–100
--- NOTE | 2023-09-13 17:30 | RT.EKG_ITS ---
APPROVED REPORT Exam: Resting ECG Reason for Exam: sepsis Patient Location: E HR:97 bpm ECG Measurements Heart Rate 97 AXIS [place] 162 P 62 QRSd 115 QRS 40 QT 397 T 32 QTc 504 Conclusion Sinus rhythm...normal P axis, V-rate 60- 99 Probable left atrial enlargement...P >50mS, <-0.10mV V1 Incomplete right bundle branch block...QRSd >112, terminal axis (90,270) Probable lateral infarct, old...Q>35mS, abnormal ST-T, V5-6 I aVL Prolonged QT interval...QTc >500mS no st segment or t wave abnormalities to suggest occlusive MT
--- NOTE | 2023-09-13 17:58 | DI.RAD_ITS ---
Exam(s) XR PORTABLE CHEST AP EXAM: XR PORTABLE CHEST AP CLINICAL HISTORY: sepsis TECHNIQUE: 2D digital imaging was performed of the chest. One image was obtained. An AP view was ob tained. COMPARISON: CT CT CHEST PE CTA from 04/06/2023 CR,XR XR PORTABLE CHEST AP from 07/05/2023 CR XR CHEST 2V PA LATERAL from 09/07/2023 FINDINGS: MEDIASTINUM: Normal. HEART: Mitral calcification is present. Heart size is within normal limits. PULMONARY VASCULATURE: Normal. LUNGS: The lungs are hyperinflated suggesting underlying COPD. No focal consolidating infiltrates ar e present. PLEURAL SPACE: No pleural effusion or pneumothorax. BONE:Within normal limits for the patient's age. Old right rib fractures. OTHER FINDINGS:Vascular calcifications are present. IMPRESSION: No acute pulmonary findings. DATA REPOSITORY: RADIATION DOSE DELIVERED:
--- NOTE | 2023-09-13 18:04 | W.ED.GENAD ---
Discharge Plan Disposition Patient Disposition: Admit to [facility] Condition: Serious Discharge Details Chief Complaint: Cellulitis Clinical Impression: Shock, Sepsis, Leg pain, Respiratory failure, Prolonged QT interval, Hypoglycemia Primary Care Provider: MARIANO KEARNEY ED Provider: Emmie Alanis Home Meds and New Rx's Prescriptions: No Action ipratropium-albuterol 0.5 mg-3 mg(2.5 mg base)/3 mL solution for nebulization 3 ml inhalation Q4H PRN (Reason: wheezing) Qty: 540 8RF albuterol sulfate 90 mcg/actuation HFA aerosol inhaler 2 puff inhalation Q6H PRN (Reason: shortness of breath or wheezing) Qty: 8.5 12RF thiamine HCl (vitamin B1) 250 mg tablet 250 mg PO DAILY gabapentin 300 mg capsule 300 mg PO TID Stiolto Respimat 2.5-2.5 mcg/actuation mist 2 puff inhalation Q24H Qty: 4 12RF loperamide [Imodium A-D] 1 mg/7.5 mL liquid 2 mg PO Q1-4H PRNQty: 120 0RF Rx Instructions: administer after each loose stool until symptoms controlled; do not exceed 16 mg per 24 hrs cephalexin 500 mg capsule 500 mg PO Q6H 10 Days Qty: 40 0RF multivitamin [Multiple Vitamins] Tablet 1 tab PO DAILY Qty: 30 0RF magnesium 250 mg tablet 250 mg PO DAILY Qty: 20 0RF ibuprofen 600 mg tablet 600 mg PO TID PRNQty: 30 0RF omeprazole 40 mg capsule,delayed release(DR/EC) 40 mg PO DAILY HPI General Date/Time Provider Initiated Documentation: 09/13/23 17:30. Limitations to Documentation: no limitations. Information obtained by: patient, EMS and old records reviewed. HPI Narrative: 63yo F with hx COPD, electrolyte derangements, ETOH abuse, PVD, malnutrition, recent hip fracture (May), presenting via EMS for bilateral lower extremity pain. Seen in this ED on 08/31/23 for the same; at that time was hypotensive, elevated procal, concern for cellulitis; was fluid resusitated and then left AMA on PO keflex and magnesium. Today has had worsening LE pain bilaterally and called EMS. No fevers, chills, rash, chest pain, shortness of breath, abdominal pain, nasuea, vomiting, diarrhea, or other concerns. Related Data Home Medications Medication Instructions Recorded Confirmed multivitamin (Multiple Vitamins 1 tab PO DAILY #30 tabs 08/13/20 09/13/23 tablet) albuterol sulfate 90 mcg/actuation 2 puff inhalation Q6H PRN 01/18/22 09/13/23 aerosol inhaler shortness of breath or wheezing #8.5 grams magnesium 250 mg tablet 250 mg PO DAILY #20 tabs 11/09/22 09/13/23 thiamine HCl (vitamin B1) 250 mg 250 mg PO DAILY 04/19/23 09/13/23 tablet tiotropium 2.5 mcg-olodaterol 2.5 2 puff inhalation Q24H #4 grams 05/04/23 09/13/23 mcg/actuation mist for inhalation (Stiolto Respimat) ipratropium 0.5 mg-albuterol 3 mg 3 ml inhalation Q4H PRN wheezing 05/10/23 09/13/23 (2.5 mg base)/3 mL nebulization #540 mL soln ibuprofen 600 mg tablet 600 mg PO TID PRN #30 tabs 05/20/23 09/13/23 gabapentin 300 mg capsule 300 mg PO TID 06/06/23 09/13/23 omeprazole 40 mg capsule,delayed 40 mg PO DAILY 06/12/23 09/13/23 release loperamide 1 mg/7.5 mL oral liquid 2 mg (15 mL) PO Q1-4H PRN #120 mL 08/02/23 09/13/23 (Imodium A-D) cephalexin 500 mg capsule 500 mg PO Q6H 10 days #40 caps 09/07/23 09/13/23 Previous Rx's Medication Instructions Recorded multivitamin (Multiple Vitamins 1 tab PO DAILY #30 tabs 08/13/20 tablet) albuterol sulfate 90 mcg/actuation 2 puff inhalation Q6H PRN 01/18/22 aerosol inhaler shortness of breath or wheezing #8.5 grams magnesium 250 mg tablet 250 mg PO DAILY #20 tabs 11/09/22 tiotropium 2.5 mcg-olodaterol 2.5 2 puff inhalation Q24H #4 grams 05/04/23 mcg/actuation mist for inhalation (Stiolto Respimat) ipratropium 0.5 mg-albuterol 3 mg 3 ml inhalation Q4H PRN wheezing 05/10/23 (2.5 mg base)/3 mL nebulization #540 mL soln ibuprofen 600 mg tablet 600 mg PO TID PRN #30 tabs 05/20/23 loperamide 1 mg/7.5 mL oral liquid 2 mg (15 mL) PO Q1-4H PRN #120 mL 08/02/23 (Imodium A-D) cephalexin 500 mg capsule 500 mg PO Q6H 10 days #40 caps 09/07/23 Allergies Allergy/AdvReac Type Severity Reaction Status Date / Time bacitracin Allergy Mild localized Verified 09/13/23 17:29 [From Neosporin redness ([id number])] neomycin Allergy Mild localized Verified 09/13/23 17:29 [From Neosporin redness ([id number])] polymyxin B Allergy Mild localized Verified 09/13/23 17:29 [From Neosporin redness ([id number])] General Stated Complaint: Cellulitis RAHEEM: 3 Review of Systems Narrative: see HPI Exam Narrative Exam Narrative: General: Alert, chronically ill appearing Head: Normocephalic, atraumatic Neck: Trachea midline, ?Neck supple. ENT: ?MMM.? Cardiac: ?Tachycardiac, regular, no murmurs appreciated Resp: No respiratory distress. CTAB. Abd: ?Soft, non-distended, nontender : ?No suprapubic tenderness. No CVA tenderness. Extremities: ?No deformities.? 1+ symmetric pitting edema BLE. Dopplerable DP pulse bilaterally. Sensation intact and symmetric bilaterally. 4 second capillary refill. Slight erythema and warmth bilaterally, right > left, some peeling to left lateral ankle. No discharge or purulence. Neurologic: GCS 15. ? Moves all extremities freely against gravity Course Vital Signs Vital signs: Vital Signs Temperature 36.7 C 09/13/23 17:23 Pulse 111 H 09/13/23 17:23 Respiratory Rate 20 09/13/23 17:23 Blood Pressure 72/45 L 09/13/23 17:23 Pulse Oximetry 93 09/13/23 17:23 Temperature 36.7 C 09/13/23 17:23 Temperature Source Skin 09/13/23 17:23 Pulse 111 H 09/13/23 17:23 Respiratory Rate 20 09/13/23 17:23 Blood Pressure 72/45 L 09/13/23 17:23 Blood Pressure Position Sitting 09/13/23 17:23 Pulse Oximetry 93 09/13/23 17:23 Oxygen Delivery Method Room Air 09/13/23 17:23 Oxygen Flow Rate 0 09/13/23 17:23 Pain Level 10 09/13/23 17:23 Lab/Test Results Lab/Test Results: 09/13/23 17:33 Blood Blood Culture - Pending 09/13/23 17:33 Blood Blood Culture - Pending Medical Decision Making 63yo F with hx COPD, electrolyte derangements, ETOH abuse, PVD, malnutrition, recent hip fracture (May), presenting via EMS for bilateral lower extremity pain. Seen in this ED on 08/31/23 for the same; at that time was hypotensive, elevated procal, concern for cellulitis; was fluid resusitated and then left AMA on PO keflex and magnesium. Today has had worsening LE pain bilaterally and called EMS. Hypotensive on arrival 72/45, HR 111. Usually has softer blood pressures at baseline however this is low even for her. Given history, will treat empirically for sepsis with IVFB, zosyn, zyvox. Some LE erythema and tenderness on exam bilaterally, dopplerable pulses. Cellulitis possible but exam also consistent with PAD. No acute limb ischemia, would not get CTA of LE. EKG with no indication of occlusive IA, does have mild QT prolongation consistent with baseline. BP improved after fluids. Labs reviewed as below, CBC with no leuckotysosis or anemia, CMP with mild hyponatremia and hypokalemia (oral potassium replacement ordered which patient refused; given 20meq IV), hypocalcemia (orally replacement ordered). Mg normal. Troponin negative. Lactate elevated at 3.3, patient with baseline impaired lactate clearance. Repeat lactate after fluids 2.5. Procal markedly elevated at 15, increased from 7.0 on her prior visit. Borderline hypoglycemia at 56, given PO, fingerstick subsequently in 40's so given amp of dextrose and started on mIVF with dextrose and potassium. +ETOH. Later on became short of breath and nauseated. Repeat EKG unchanged, however now again hypotensive. O2 sat dipping down into mid 80's. Lungs remain clear, no wheeze/rhonchi/crackles. Placed on NC and sats well on 4L. BP normalized without further intervention. CT ordered and independently reviewed, no pulmonary embolism or clear pneumonia on my view, no bowel obstruction or free fluid. Discussed with [facility] hospitalist and accepted to medicine service for further workup and management. Imaging Data Radiologic Study: Imaging: CT Scan Radiologist's impression: 1. Moderate bronchial wall thickening suggesting changes of bronchitis or bronchial edema. 2. Suspect mild-moderate interstitial pulmonary edema. 3. Moderate-severe emphysematous changes in the upper lung brady. 4. Severe calcific plaque in the proximal left subclavian artery with severe stenosis of 80%. Correlate clinically for asymmetric brachial pressures, consider follow-up carotid Doppler to assess for subclavian steal as clinically indicated. 5. Severe abdominal aortic calcific plaque producing severe aortic stenosis in the infrarenal segment estimated at 80%, progressed from 2020. 6. Severe celiac artery ostial stenosis of 90% or greater, unchanged from 2020. 7. SMA severe calcific plaque producing severe 70% post ostial stenosis increased from 2020. 8. Right renal artery severe calcific plaque with severe ostial stenosis of 80-90%, increased from 2020. Associated new moderate right renal cortical thinning probably related to progressing renal artery stenosis. 9. Bowel changes suggestive of enterocolitis and diarrheal state. No evidence of bowel obstruction or perforation. 10. Mitral valve thickening/calcification, correlate clinically for mitral dysfunction. 11. Mildly enlarged AP window nodes, nonspecific. 12. Small left and minimal right basilar pleural effusions. 13. Mild liver contour irregularity, suspect cirrhosis. 14. Rugal fold thickening in the stomach similar to 202, possibly chronic hepatic gastropathy versus chronic or recurrent gastritis. 15. Small gallstones without cholecystitis. Mild chronic dilatation of the common bile duct at 8 mm, unchanged. Consider ultrasound if there is clinical suspicion for biliary obstruction. 16. Chronic fractures of the sternum, ribs, and spine detailed above Quality:SDOH Health Related Social Needs: Health related social needs inadequate housing Critical Care Time Critical Care Time Critical Care Time: Yes Total Critical Care Time: 31 Attestation: Due to a high probability of clinically significant, life threatening deterioration, the patient required my highest level of preparedness to intervene emergently and I personally spent this critical care time directly and personally managing the patient. This critical care time included obtaining a history; examining the patient; pulse oximetry; ordering and review of studies; arranging urgent treatment with development of a management plan; evaluation of patient's response to treatment; frequent reassessment; and, discussions with other providers. This critical care time was performed to assess and manage the high probability of imminent, life-threatening deterioration that could result in multi-organ failure. It was exclusive of separately billable procedures PFSH All Active Problems (Updated 09/13/23 @ 23:13 by Emmie Alanis MD) Prolonged QT interval (Acute) Respiratory failure (Acute) Leg pain (Acute) Sepsis (Acute) Shock (Acute) Hypomagnesemia (Acute) Hypokalemia (Acute) Difficulty walking (Acute) PVD (peripheral vascular disease) (Chronic) Atherosclerosis of aorta (Acute) Leg swelling (Acute) Acute hypokalemia (Acute) Hypoglycemia (Acute) Alcoholic ketoacidosis (Acute) Laceration of scalp (Acute) Fall (Acute) Chronic left hip pain (Acute) Contusion of hip (Acute) Closed intertrochanteric fracture of left hip (Acute) s/p IMN fixation (05/18/23) Smoker (Acute) Closed fracture of left hip (Acute) Fall (Acute) Alcohol intoxication (Acute) Anxiety (Chronic) Cavitary lesion of lung (Acute) H/O ETOH abuse (Acute) Tobacco use disorder (Acute 01/28/14) Pleural effusion (Acute) Hypomagnesemia (Acute) Fluid overload (Acute) Chest pain due to GERD (Acute) Chest wall muscle strain (Acute) Hypokalemia (Acute) COPD exacerbation (Acute) Emphysema lung (Acute) Nicotine dependence, cigarettes, uncomplicated (Acute) Atherosclerosis (Acute) Gastric wall thickening (Acute) Stenosis of right internal carotid artery (Acute) Mass of upper lobe of right lung (Acute) Alcohol abuse (Chronic) Dehydration (Acute) Diarrhea (Acute) Hypomagnesemia (Chronic) B12 deficiency (Acute) Ascites (Acute) Chronic liver disease (Chronic) Weight loss, non-intentional (Acute) Macrocytic anemia (Acute) Early satiety (Acute) Folate deficiency (Acute) Hypomagnesemia (Acute) Hypokalemia (Acute) Leg pain (Acute) Cellulitis (Acute) Bilateral leg ulcer (Acute) Medical History Pulmonary nodule COPD (chronic obstructive pulmonary disease) Hypomagnesemia Cachexia Hepatic fibrosis Ulcer of lower extremity Hair loss Vitamin D deficiency Chest pain Gastroesophageal reflux disease Hx pulmonary embolism COPD (chronic obstructive pulmonary disease) Chronic vomiting Malnutrition Frequent falls Bilateral leg pain Pancreatitis Diastolic dysfunction Folate deficiency anemia Ascites Bilateral lower extremity edema Unintentional weight loss Alcohol abuse Tobacco dependence syndrome Tobacco abuse Surgical History punch biopsy, skin of ankle, right lateral (11/24/16) negative for malignancy, sparse inflammation and reactive blood vessels foot surgery (~2000) Ligation of fallopian tube (~1999) ENT/Nasal surgery (~2007) Family History Father Lung disease Cancer Lung Social History Smoking/Tobacco Use Status: Current every day Tobacco Type: cigarettes Tobacco: How many years used: 45 Quit status: considering quitting Second Hand Exposure: Yes Smoking risk assessment performed?: Yes Alcohol Intake: current Alcohol Intake frequency: 3 or more drinks per day Alcohol type: wine and hard liquor Counseling given: Yes Counseling provided: provider counseling Drug use: Rarely Substance use type: marijuana Details: daily drinker, presents to [facility] under the influence of ETOH, states I didn't have much, 3 or 4 lemon drop martinis and a couple, maybe three or four hot toddies Housing: apartment Current gender identity: female Do you feel safe at home: Yes Do you feel safe in your relationship?: Yes Additional Social history: Lives alone in studio in [facility], 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 Grew up in [place], sisters in area. History History Para 0 Hx # Term Pregnancies Multiple births Hx # Pregnancies Ectopic pregnancies AB induced Hx Number of Living Children AB spontaneous
[2023-09-13] MEDS: Normal Saline 1,000 ML 1000 ML IV ×2 (18:18→19:15)
[2023-09-13] MEDS: PIPERACILLIN/TAZO 4.5 GM in Normal Saline 100 ML IVPB (18:21)
[2023-09-13 18:31] LABS: Lactate 3.3 mmol/L (0.6-1.4)
[2023-09-13 18:32] LABS: Abs Immature Grans 0.09 10^3/uL (0.0-0.06); Absolute Eosinophil Count 0.03 10^3/uL (0.0-0.7); Absolute Lymphocyte Count 2.03 10^3/uL (1.2-3.4); Absolute Monocyte Count 0.51 10^3/uL (0.1-0.8); Absolute Neutrophil Count 4.23 10^3/uL (1.2-6.7); Basophils % 1.4 %; Eosinophils % 0.4 %; HCT 34.7 % (36.0-46.0); HGB 11.8 g/dL (11.2-15.7); Immature Grans % 1.3 %; MCH 35.8 pg (27.0-33.0); MCV 105 fL (80-95); MPV 10.2 fL (8.0-11.0); Monocytes % 7.3 %; Neutrophils % 60.6 %; Platelet Count 380 10^3/uL (130-400); RDW 16.9 % (11.7-14.6); RDW-SD 65.5 fL; WBC 6.99 10^3/uL (4.4-10.8)
[2023-09-13 18:43] LABS: ETHANOL BLOOD 150.1 mg/dL (<10)
[2023-09-13 18:46] LABS: Anisocytosis 1+; Diff Comment RBC Morph Reviewed; Macrocytosis 1+
[2023-09-13 18:49] LABS: ALT 33 U/L (14-59); AST 54 U/L (15-37); Albumin 2.4 g/dL (3.4-5.0); Alkaline Phosphatase 141 U/L (46-116); Anion Gap 12.2 mmol/L (3-11); BUN 9 mg/dL (7-18); Bilirubin, Total 0.5 mg/dL (0.2-1.0); CO2 23.8 mmol/L (21.0-32.0); CREATININE 0.5 mg/dL (0.55-1.02); Chloride 96 mmol/L (98-107); Estimated GFR 105.98 (mL/min/1.73m2); Glucose 56 mg/dL (74-106); Potassium 3.3 mmol/L (3.5-5.1); Sodium 132 mmol/L (136-145); Total Protein 6.2 g/dL (6.4-8.2); Troponin I < 50 ng/L (< or =60)
[2023-09-13] MEDS: LINEZOLID 600 MG/300 ML BAG 300 MG IVPB (18:52)
[2023-09-13] MEDS: Ketorolac 15 MG/ML VIAL IVP (18:54)
[2023-09-13 19:04] LABS: Procalcitonin 15.9 ng/mL
[2023-09-13] MEDS: POTASSIUM CHLORIDE 20 MEQ/100 ML BAG 50 MEQ IVINF (19:24)
--- NOTE | 2023-09-13 19:45 | RT.EKG_ITS ---
APPROVED REPORT Exam: Resting ECG Reason for Exam: short of breath Patient Location: E HR:102 bpm ECG Measurements Heart Rate 102 AXIS MT 158 P 75 QRSd 116 QRS 66 QT 412 T 36 QTc 537 Conclusion Sinus tachycardia...rate> 99 Supraventricular bigeminy...bigeminy string>4 w/ SV complexes Incomplete right bundle branch block...QRSd >112, terminal axis(90,270) Prolonged QT interval...QTc >500mS no ST segment or T wave abnormalities to suggest occlusive OK
--- NOTE | 2023-09-13 19:45 | NUR.NOTE ---
Pt refusing to take any PO meds. aware.
[2023-09-13 19:47] LABS: Magnesium 1.8 mg/dL (1.8-2.4)
--- NOTE | 2023-09-13 20:08 | DI.CT_ITS ---
Exam(s) CT CHEST PE ABD PELVIS W EXAM: CT CHEST PE ABD PELVIS W CLINICAL HISTORY: SOB, tachycardia, vomiting. TECHNIQUE: Imaging Protocol: Axial CT angiography was performed with multi-slice acquisition and mu lti-planar and/or 3D reconstructions. CONTRAST MATERIAL: Intravenous: Omnipaque 350contrast volume:100 mL COMPARISON: CT CT THORACIC LUMBAR SPINE REC from 08/16/[address] CHEST/ABD/PEL W from 08/16/[address] CHEST WO from 08/31/[address] CHEST PE CTA from 04/06/[address] LOWER EXTREMITY LT WO from 06/27/[address] ABD AORTA CTA W RUNOFF from 08/16/2023 FINDINGS: The examination is limited due to patient motion artifact. CHEST: Tracheobronchial tree: There is mild bronchial wall thickening which can be seen with bronchitis. No evidence of bronchiectasis. Pulmonary parenchyma: Moderately severe emphysematous changes are present in the lungs. There is a s table area of scarring in the right upper lobe. There also stable opacity seen in the medial and bas ilar aspect of the left lower lobe in the lateral aspect of the right lower lobe. These findings are stable. These may represent areas of atelectasis or scarring. No new pulmonary infiltrates are see n. No new pulmonary nodules are present. Pulmonary Arteries: No evidence of filling defect to suggest pulmonary emboli. Mediastinum and Gaye: No dominant adenopathy or fluid collection. The esophagus is unremarkable. Visualized thyroid gland: Unremarkable. Pleura: Tiny pleural effusions are seen bilaterally. No pneumothorax. Heart: The heart is not dilated. Coronary artery calcifications are present. There is calcification of the mitral annulus. No pericardial effusion. Aorta: Thoracic aorta non-dilated. No evidence of dissection. Extensive atherosclerosis of the thora cic aorta is noted. There is unchanged significant stenosis of the proximal left subclavian artery ( at least 80 percent). Bones: Within normal limits for the patient's age. Soft tissues: Unremarkable. ABDOMEN: Liver: Normal density. No measurable mass. Portal, Superior Mesenteric, and Splenic Veins: Unremarkable. Gallbladder and Biliary Tract: The gallbladder is distended. There are few small stones seen in the fundus of the gallbladder. The common duct measures 7 mm. Pancreas: Normal density, no abnormal calcifications or inflammatory process. Spleen: Normal. Adrenals: No masses seen. Kidneys: Normal size, contour and axis. No radiodense stones or obstructive uropathy. There is a stab le right renal cyst. No follow-up is recommended. Abdominal Aorta: Abdominal portion non-dilated. Dense atherosclerotic calcification is present throug hout the aorta and its visualized runoff. There is marked narrowing of the mid infrarenal abdominal aorta up to 70 percent. There is severe stenosis at the origin of the celiac artery of at least 90 p ercent which is stable. Marked bilateral renal artery calcification is present resulting in marked s tenosis, right greater than left. Bowel: There is diverticulosis of the colon without evidence of acute diverticulitis. Fluid-filled l oops of small and large bowel are still present which can be seen with a diarrheal illness/entero col itis. There is no evidence of bowel obstruction. No bowel wall thickening is present. There is no pneumatosis. The stomach is incompletely distended limiting evaluation. There is no evidence of sury endicitis. Peritoneal Cavity: No ascites, collection or mesenteric inflammatory response. No free air. Lymph Nodes: Within normal limits. Bones: Old bilateral rib fractures are present. Age-appropriate degenerative changes are seen in the spine. There is an old fracture of the left transverse process of L3. There is an intramedullary r od transfixing a left intertrochanteric fracture. There is an old L1 compression fracture deformity. Soft Tissues: Unremarkable. PELVIS: Bladder: The urinary bladder is distended but otherwise unremarkable. Reproductive Organs: Unremarkable as visualized. Lymph Nodes: Within normal limits. Bones: Within normal limits. IMPRESSION: 1. No evidence pulmonary embolism, thoracic aortic dissection or aneurysm. 2. Mild bronchial wall thickening which can be seen with bronchitis. 3. Extensive atherosclerotic calcific disease in the chest and abdomen as described above. 4. Fluid-filled loops of small and large bowel which can be seen with a diarrheal illness/enterocolit is. 5. Cholelithiasis. No change in the size of the bile ducts.. RADIATION DOSE DELIVERED: 706.2mGy.cm Total DLP DATA REPOSITORY: All CT scans at this facility are submitted to the National Radiology Data Registry (NRDR) Dose Index Registry (DIR) with the [employer] ([employer]). RADIATION OPTIMIZATION: All CT scans at this facility use at least one of these dose optimization te chniques: automated exposure control; mA and/or kV adjustment per patient size (includes targeted exa ms where dose is matched to clinical indication); or iterative reconstruction.
[2023-09-13] MEDS: Metoclopramide 10 MG/2 ML VIAL IVP (20:15)
[2023-09-13] MEDS: Omnipaque 350 MG/ML 100 ML BTL IJ (20:15)
[2023-09-13] MEDS: Normal Saline - Diluent 50 ML VIAL IJ (20:15)
--- NOTE | 2023-09-13 21:03 | NUR.NOTE ---
MD aware of pts BP 70/35, MAP of 46. No new orders at this time.
[2023-09-13 21:17] LABS: Lactate 2.5 mmol/L (0.6-1.4)
[2023-09-13] MEDS: Dextrose 50%-Water 25 GM/50 ML SYR IVP (21:21)
--- NOTE | 2023-09-13 21:23 | NUR.NOTE ---
MD aware BP 88/43 MAP 57, ok with MAP greater than 55.
[2023-09-13 21:36] LABS: Troponin I < 50 ng/L (< or =60)
[2023-09-13 21:55] LABS: BE (Venous) -4 mmol/L (-2-3); HCO3 (Venous) 19 mmol/L (23-28); O2 Sat (Venous) 73 %; TCO2 (Venous) 17 mmol/L (24-29); pCO2 (Venous) 23 mmHg (41-51); pH (Venous) 7.53 (7.31-7.41); pO2 (Venous) 37 mmHg
[2023-09-13 21:59] LABS: Bilirubin Negative (Negative); Blood Negative (Negative); Clarity Clear (Clear); Glucose Negative (Negative); Ketones Negative (Negative); Leukocyte Esterase Negative (Negative); Nitrite Negative (Negative); Urobilinogen 0.2 mg/dL (Up to 0.2)
--- NOTE | 2023-09-13 22:05 | DI.VRAD_ITS ---
PROCEDURE INFORMATION: Exam: CTA Chest With Contrast CTA Abdomen With Contrast Exam date and time: 09/13/2023 8:16 PM Age: 63 years old Clinical indication: Shortness of breath and other: Tachycardia; Other: Vomitting; Additional info: SOB, tachycardia, vomiting TECHNIQUE: Imaging protocol: Computed tomographic angiography of the chest with contrast. Exam focused on the arteries. Computed tomographic angiography of the abdomen with contrast. Exam focused on the arteries. 3D rendering (Not supervised by radiologist): MIP and/or 3D reconstructed images were created by the technologist. Contrast material: OMNI 350; Contrast volume: 100 ml; Contrast route: INTRAVENOUS (IV); COMPARISON: CT CHEST PE CTA 04/06/2023 10:39 AM FINDINGS: VASCULATURE: Pulmonary arteries: The pulmonary arteries enhance appropriately with no evidence of pulmonary embolism. Aorta: Thoracic aortic assessment limited by contrast phase, which was focused on the pulmonary arteries. Moderate aortic ectasia/tortuosity and calcific atherosclerosis. Mild aortic valve calcification. Severe calcific plaque in the proximal left subclavian artery with suspected short segment severe stenosis of 80%, unchanged from 04/06/2023. No mediastinal hematoma. Abdominal aorta demonstrates severe calcific plaque. No aneurysm or dissection. Severe aortic stenosis of 80% in the mid infrarenal segment significantly progressed from 12/26/2020. Celiac trunk and mesenteric arteries: Celiac artery demonstrates severe ostial calcific plaque with severe ostial stenosis estimated at 90% or greater, grossly unchanged from 12/26/2020. SMA demonstrates severe ostial/post ostial calcific plaque producing severe 70% post ostial stenosis which is increased from 12/26/2020. DIONNE is patent. Renal arteries: Right renal artery demonstrates severe ostial/post ostial calcific plaque with severe ostial stenosis of 80-90% which is increased. Left renal artery shows severe ostial/post ostial calcific plaque without significant stenosis. Right iliac arteries: Right iliac arteries demonstrate mild-moderate calcific plaque without stenosis. Left iliac arteries: Left iliac arteries demonstrate mild-moderate calcific plaque without stenosis. Thyroid: The visualized thyroid gland demonstrates no gross abnormality. CHEST: Lungs: Moderate bilateral bronchial wall thickening consistent with bronchitis or bronchial edema. No bronchiectasis. No bronchial occlusions. Moderate-severe centrilobular and panlobular emphysematous changes in the pulmonary apices, right greater than left. Interlobular septal thickening and peripheral juxtapleural interstitial prominence in the lung bases suspicious for an element of interstitial pulmonary edema. Mild atelectasis in the lung bases. Partially calcified bandlike nodular fibrosis in the posterior right apex is unchanged since 12/26/2020 and does not require further assessment. No pulmonary mass lesions are identified. Mild pleuroparenchymal scarring in the pulmonary apices bilaterally. Small left and minimal right dependent basilar pleural effusions. Pleural spaces: No pneumothorax. Heart: Heart size normal. Moderate calcification of the mitral annulus, with suspected mitral valve thickening/calcification as well. Correlate clinically for mitral dysfunction. No pericardial effusion. Coronary arteries: Moderate coronary artery calcification. Esophagus: The esophagus is largely contracted but demonstrates no gross abnormality. ABDOMEN AND PELVIS: Liver: Liver assessment is motion limited. Mild liver contour irregularity suspicious for cirrhosis. No mass lesions. No intrahepatic biliary ductal dilatation. Gallbladder and bile ducts: Gallbladder assessment is motion limited. Moderate gallbladder distension. No wall thickening or adjacent stranding/fluid to suggest cholecystitis. Mild chronic dilatation of the common hepatic duct and common bile duct is not significantly changed from 12/26/2020, maximum 8 mm. Clinical/laboratory correlation recommended regarding evidence of biliary obstruction. Consider sonographic assessment as clinically indicated. Pancreas: Pancreatic assessment motion limited. No acute pancreatic abnormalities. Moderate pancreatic atrophy. No ductal dilatation. Spleen: Splenic assessment motion limited. No acute splenic abnormalities. Adrenal glands: Normal. No adrenal mass. Kidneys and ureters: Renal assessment motion limited. No acute renal abnormalities are identified. No hydronephrosis or hydroureter. No urinary tract stones are identified. There is right renal cortical thinning which has developed since 2020, possibly secondary to renal artery stenosis progression. Stomach and bowel: Rugal fold thickening in the stomach, nonspecific. This is similar to 12/26/2020, which goes against malignancy, possibly changes of chronic hepatic gastropathy versus chronic or recurrent gastritis. There is excessive fluid content in the mid to distal small bowel and throughout the colonwith mildly increased mucosal enhancement, suggesting mild generalized enterocolitis and developing diarrheal state. No small bowel dilatation or transition point suggestive of bowel obstruction was identified. Moderate sigmoid diverticulosis. Mild wall thickening and adjacent stranding in the proximal sigmoid colon suspicious for mild acute diverticulitis. No perforation or abscess. Appendix: The appendix is not definitively identified, potentially tracking at the posterolateral margin of the inferior right hepatic lobe, although motion limited in this region. No gross changes of appendicitis. Intraperitoneal space: No free fluid or air. Urinary bladder: The urinary bladder is moderately distended but otherwise unremarkable. Reproductive: Unremarkable as visualized. Lymph nodes: No supraclavicular or axillary adenopathy. Mildly enlarged nodes in the AP window. No intra-abdominal/intrapelvic adenopathy. Chronic periportal jeanie calcifications unchanged. Bones/joints: Osteopenia. Mildly displaced fracture of the left L3 transverse process shows corticated margins and no local stranding, favor chronic fracture with nonunion. Old healed fractures of the left L2 and L4 transverse process is noted. Chronic appearing moderate superior endplate compression of L1 unchanged from 04/06/2023. Old healed lower right lateral rib fracture again noted. Chronic fracture of the mid sternal body show sclerosis and incomplete bony union suggesting chronic nonunion, with unchanged alignment since 04/06/2023. Hardware fixation of prior left femoral neck fracture noted without gross hardware complication. Soft tissues: Unremarkable. IMPRESSION: 1. Moderate bronchial wall thickening suggesting changes of bronchitis or bronchial edema. 2. Suspect mild-moderate interstitial pulmonary edema. 3. Moderate-severe emphysematous changes in the upper lung brady. 4. Severe calcific plaque in the proximal left subclavian artery with severe stenosis of 80%. Correlate clinically for asymmetric brachial pressures, consider follow-up carotid Doppler to assess for subclavian steal as clinically indicated. 5. Severe abdominal aortic calcific plaque producing severe aortic stenosis in the infrarenal segment estimated at 80%, progressed from 2020. 6. Severe celiac artery ostial stenosis of 90% or greater, unchanged from 2020. 7. SMA severe calcific plaque producing severe 70% post ostial stenosis increased from 2020. 8. Right renal artery severe calcific plaque with severe ostial stenosis of 80-90%, increased from 2020. Associated new moderate right renal cortical thinning probably related to progressing renal artery stenosis. 9. Bowel changes suggestive of enterocolitis and diarrheal state. No evidence of bowel obstruction or perforation. 10. Mitral valve thickening/calcification, correlate clinically for mitral dysfunction. 11. Mildly enlarged AP window nodes, nonspecific. 12. Small left and minimal right basilar pleural effusions. 13. Mild liver contour irregularity, suspect cirrhosis. 14. Rugal fold thickening in the stomach similar to 202, possibly chronic hepatic gastropathy versus chronic or recurrent gastritis. 15. Small gallstones without cholecystitis. Mild chronic dilatation of the common bile duct at 8 mm, unchanged. Consider ultrasound if there is clinical suspicion for biliary obstruction. 16. Chronic fractures of the sternum, ribs, and spine detailed above. Dictated and Authenticated by: Nikunj Sánchez MD. Ordering:MARY KATE Olea MD
--- NOTE | 2023-09-13 22:40 | HPE_ITS ---
Date of service: 09/14/23 Time of Service: 06:37 Assessment and Plan Assessment and plan (1) Severe sepsis: Status: Acute Assessment and plan: - Patient met sepsis criteria on admission with a heart rate of 111, respiratory rate in the 20s, and source of infection being right lower extremity cellulitis and initial lactic acid 3.3 which improved with IV fluid resuscitation -She failed outpatient therapy with p.o. Keflex, though initially presented on August 30 for which she was treated with p.o. Keflex -Was started on linezolid and Zosyn in the emergency department, will continue (2) Cellulitis: Status: Acute Assessment and plan: - Has noted above (3) Acute respiratory failure with hypoxia: Status: Acute Assessment and plan: - Patient was reportedly hypoxic in the emergency department on 4 L nasal cannula -She was given DuoNeb treatments upon presenting to MedSurg unit and has since been on room air (4) COPD exacerbation: Status: Acute Assessment and plan: - Continue as needed albuterol, and remainder of home inhaler regimen (5) Prolonged QT interval: Status: Acute Assessment and plan: - Baseline (6) Hypokalemia: Status: Acute Assessment and plan: - 3.3 in the emergency department, status post IV repletion -Follow-up a.m. BMP (7) PVD (peripheral vascular disease): Status: Chronic (8) Alcoholic ketoacidosis: Status: Acute Assessment and plan: - Alcohol level was 150 in emergency department -It may be a contributing factor to elevated lactic acid in combination with severe sepsis as noted above History of Present Illness History of Present Illness Chief Complaint: leg pain Narrative: 63-year-old female with a past medical history of COPD, alcohol abuse, peripheral vascular disease, recent hip fracture surgery in May, multiple episodes of electrolyte derangements and recent ED visit on August 30 concerns for lower extremity cellulitis presents back to the emergency department with lower extremity pain. Patient was recently seen in the emergency department on August 30 where she was found to be mildly hypotensive without improved with IV fluids, with an elevated Pro-Carl and concern for cellulitis but left AGAINST MEDICAL ADVICE and was sent p.o. Keflex. However, since that time she states that her lower extremity pain has gotten worse. She denies any fevers, lightheadedness, dizziness, shortness of breath, nausea or vomiting. In the emergency department patient was noted as being mildly hypotensive 72/45 with a heart rate of 111 that did improve with IV fluids. Additionally, her bilateral lower extremity erythema appeared worse, though she did have dopplerable pulses alleviating concern for acute limb ischemia. Her EKG was without acute findings though QT prolongation was noted though this is apparently baseline for the patient. CBC was within normal limits but CMP did show potassium of 3.3, and anion gap of 12.2 and an initial lactic acid of 3.3 that improved to 2.5 with initial fluid rehydration. Procalcitonin was checked was 15.9, and patient's alcohol level was found to be 156. Patient then began transiently short of breath and acute toxic respiratory failure necessitating 4 L nasal cannula which prompted a CT chest abdomen pelvis which did not show any acute findings but did have multiple known chronic arterial stenosis and plaques including but not limited to the left subclavian artery, abdominal aorta, celiac artery, SMA, and right renal artery. while in the emergency department patient was given replacement potassium, IV fluids, linezolid and Zosyn. At which time emergency room physician paged hospitalist for admission for patient with severe sepsis secondary to cellulitis, and acute hypoxic respiratory failure Review of Systems All systems reviewed & are unremarkable except as noted in HPI and below PFSH All Active Problems (Updated 09/14/23 @ 06:48 by Ck Haas MD) COPD exacerbation (Acute) Acute respiratory failure with hypoxia (Acute) Cellulitis (Acute) Severe sepsis (Acute) Prolonged QT interval (Acute) Respiratory failure (Acute) Leg pain (Acute) Sepsis (Acute) Shock (Acute) Hypomagnesemia (Acute) Hypokalemia (Acute) Difficulty walking (Acute) PVD (peripheral vascular disease) (Chronic) Atherosclerosis of aorta (Acute) Leg swelling (Acute) Acute hypokalemia (Acute) Hypoglycemia (Acute) Alcoholic ketoacidosis (Acute) Laceration of scalp (Acute) Fall (Acute) Chronic left hip pain (Acute) Contusion of hip (Acute) Closed intertrochanteric fracture of left hip (Acute) s/p IMN fixation (05/18/23) Smoker (Acute) Closed fracture of left hip (Acute) Fall (Acute) Alcohol intoxication (Acute) Anxiety (Chronic) Cavitary lesion of lung (Acute) H/O ETOH abuse (Acute) Tobacco use disorder (Acute 01/28/14) Pleural effusion (Acute) Hypomagnesemia (Acute) Fluid overload (Acute) Chest pain due to GERD (Acute) Chest wall muscle strain (Acute) Hypokalemia (Acute) COPD exacerbation (Acute) Emphysema lung (Acute) Nicotine dependence, cigarettes, uncomplicated (Acute) Atherosclerosis (Acute) Gastric wall thickening (Acute) Stenosis of right internal carotid artery (Acute) Mass of upper lobe of right lung (Acute) Alcohol abuse (Chronic) Dehydration (Acute) Diarrhea (Acute) Hypomagnesemia (Chronic) B12 deficiency (Acute) Ascites (Acute) Chronic liver disease (Chronic) Weight loss, non-intentional (Acute) Macrocytic anemia (Acute) Early satiety (Acute) Folate deficiency (Acute) Hypomagnesemia (Acute) Hypokalemia (Acute) Leg pain (Acute) Cellulitis (Acute) Bilateral leg ulcer (Acute) Medical History Pulmonary nodule COPD (chronic obstructive pulmonary disease) Hypomagnesemia Cachexia Hepatic fibrosis Ulcer of lower extremity Hair loss Vitamin D deficiency Chest pain Gastroesophageal reflux disease Hx pulmonary embolism COPD (chronic obstructive pulmonary disease) Chronic vomiting Malnutrition Frequent falls Bilateral leg pain Pancreatitis Diastolic dysfunction Folate deficiency anemia Ascites Bilateral lower extremity edema Unintentional weight loss Alcohol abuse Tobacco dependence syndrome Tobacco abuse Surgical History punch biopsy, skin of ankle, right lateral (11/24/16) negative for malignancy, sparse inflammation and reactive blood vessels foot surgery (~2000) Ligation of fallopian tube (~1999) ENT/Nasal surgery (~2007) Family History Father Lung disease Cancer Lung Social History Smoking/Tobacco Use Status: Current every day Tobacco Type: cigarettes Tobacco: How many years used: 45 Quit status: considering quitting Second Hand Exposure: Yes Smoking risk assessment performed?: Yes Alcohol Intake: current Alcohol Intake frequency: 3 or more drinks per day Alcohol type: wine and hard liquor Counseling given: Yes Counseling provided: provider counseling Drug use: Rarely Substance use type: marijuana Details: daily drinker, presents to [facility] under the influence of ETOH, states I didn't have much, 3 or 4 lemon drop martinis and a couple, maybe three or four hot toddies Housing: apartment Current gender identity: female Do you feel safe at home: Yes Do you feel safe in your relationship?: Yes Additional Social history: Lives alone in studio in [place] [facility], 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 Grew up in [place], sisters in area. History History 2 Para 0 Hx # Term Pregnancies Multiple births Hx # Pregnancies Ectopic pregnancies AB induced Hx Number of Living Children AB spontaneous Meds Allergies and Home Medications Allergies Allergy/AdvReac Type Severity Reaction Status Date / Time bacitracin Allergy Mild localized Verified 09/13/23 17:29 [From Neosporin redness ([id number])] neomycin Allergy Mild localized Verified 09/13/23 17:29 [From Neosporin redness ([id number])] polymyxin B Allergy Mild localized Verified 09/13/23 17:29 [From Neosporin redness ([id number])] Home Medications Medication Instructions Recorded Confirmed Type multivitamin (Multiple Vitamins 1 tab PO DAILY #30 tabs 08/13/20 09/13/23 Rx tablet) albuterol sulfate 90 mcg/actuation 2 puff inhalation Q6H PRN 01/18/22 09/13/23 Rx aerosol inhaler shortness of breath or wheezing #8.5 grams magnesium 250 mg tablet 250 mg PO DAILY #20 tabs 11/09/22 09/13/23 Rx thiamine HCl (vitamin B1) 250 mg 250 mg PO DAILY 04/19/23 09/13/23 History tablet tiotropium 2.5 mcg-olodaterol 2.5 2 puff inhalation Q24H #4 grams 05/04/23 09/13/23 Rx mcg/actuation mist for inhalation (Stiolto Respimat) ipratropium 0.5 mg-albuterol 3 mg 3 ml inhalation Q4H PRN wheezing 05/10/23 09/13/23 Rx (2.5 mg base)/3 mL nebulization #540 mL soln ibuprofen 600 mg tablet 600 mg PO TID PRN #30 tabs 05/20/23 09/13/23 Rx gabapentin 300 mg capsule 300 mg PO TID 06/06/23 09/13/23 History omeprazole 40 mg capsule,delayed 40 mg PO DAILY 06/12/23 09/13/23 History release loperamide 1 mg/7.5 mL oral liquid 2 mg (15 mL) PO Q1-4H PRN #120 mL 08/02/23 09/13/23 Rx (Imodium A-D) cephalexin 500 mg capsule 500 mg PO Q6H 10 days #40 caps 09/07/23 09/13/23 Rx Exam Narrative Exam Narrative: Cachectic appearing older female appearing older than stated age laying in bed in no acute distress, ANO x 4, no nasal cannula in place, heart regular rate rhythm, lungs clear to auscultation bilaterally, abdomen soft, nontender, nondistended, erythema bilateral lower extremities worse on the right than the left with improved as compared to initial presentation without drainage or fluctuance Results Labs 09/13/23 18:16 09/13/23 18:16 Labs: Laboratory Results - last 24 hr 09/13/23 09/13/23 09/13/23 18:16 21:09 21:33 WBC 6.99 RBC 3.30 L Hgb 11.8 Hct 34.7 L MCV 105 H MCH 35.8 H MCHC 34.0 RDW 16.9 H Plt Count 380 MPV 10.2 Immature Gran % 1.3 Neutrophils % 60.6 Lymphocytes % 29.0 Monocytes % 7.3 Eosinophils % 0.4 Basophils % 1.4 Nucleated RBC % 0.0 Absolute Neutrophils 4.23 Absolute Lymphocytes 2.03 Absolute Monocytes 0.51 Absolute Eosinophils 0.03 Absolute Basophils 0.10 RBC Morphology See Below Anisocytosis 1+ Macrocytosis 1+ VBG pH VBG pCO2 VBG pO2 VBG HCO3 VBG Total CO2 VBG O2 Saturation VBG Base Excess VBG Lactate 3.3 H* 2.5 H* Sodium 132 L Potassium 3.3 L Chloride 96 L Carbon Dioxide 23.8 Anion Gap 12.2 H BUN 9 Creatinine 0.5 L Est GFR (CKD-EPI 2020) 105.98 Glucose 56 L Calcium 8.0 L Magnesium 1.8 Total Bilirubin 0.5 AST 54 H ALT 33 Alkaline Phosphatase 141 H Troponin I < 50 < 50 Total Protein 6.2 L Albumin 2.4 L Procalcitonin 15.9 Urine Color Yellow Urine Clarity Clear Urine pH 7.0 Ur Specific [place] 1.010 Urine Protein Negative Urine Ketones Negative Urine Blood Negative Urine Nitrite Negative Urine Bilirubin Negative Urine Urobilinogen 0.2 Ur Leukocyte Esterase Negative Urine Glucose Negative Ethyl Alcohol 150.1 H 09/13/23 21:40 WBC RBC Hgb Hct MCV MCH MCHC RDW Plt Count MPV Immature Gran % Neutrophils % Lymphocytes % Monocytes % Eosinophils % Basophils % Nucleated RBC % Absolute Neutrophils Absolute Lymphocytes Absolute Monocytes Absolute Eosinophils Absolute Basophils RBC Morphology Anisocytosis Macrocytosis VBG pH 7.53 H VBG pCO2 23 L VBG pO2 37 VBG HCO3 19 L VBG Total CO2 17 L VBG O2 Saturation 73 VBG Base Excess -4 L VBG Lactate Sodium Potassium Chloride Carbon Dioxide Anion Gap BUN Creatinine Est GFR (CKD-EPI 2020) Glucose Calcium Magnesium Total Bilirubin AST ALT Alkaline Phosphatase Troponin I Total Protein Albumin Procalcitonin Urine Color Urine Clarity Urine pH Ur Specific [place] Urine Protein Urine Ketones Urine Blood Urine Nitrite Urine Bilirubin Urine Urobilinogen Ur Leukocyte Esterase Urine Glucose Ethyl Alcohol Last Vital Signs Temp 98.1 F 09/13/23 18:26 Pulse 89 09/13/23 22:15 Resp 20 09/13/23 18:26 BP 142/73 H 09/13/23 22:15 Pulse Ox 100 09/13/23 22:11 PAWSS Have you Been Recently Intoxicated or Drunk Within the Last 30 days?: Yes Have you Ever Experienced Previous Episodes of Alcohol Withdrawal?: No Have you ever Experienced Withdrawal Seizures?: No Have you ever Experienced Delirium Tremens(DT)s?: No Have you ever undergone Alcohol Rehabilitation Treatment (i.e, inpt ot outpatient treatment programs)?: No Have you ever Experienced Blackouts?: No Have you ever Combined Alcohol with other Downers within the last 90 days?: No Have you ever Combined Alcohol with any other Substance of Abuse during the last 90 days?: No Positive Blood Alcohol level on Presentation? [PCS.BAL]: No Evidence of Increased Autonomic Activity (i.e. HR>120, tremor, sweating, agitation, nausea)?: No Result: 1 Time Spent Time spent with Patient: >75 minutes Time was spent: preparing to see the patient(eg.review tests), obtaining and/or reviewing separately otained hiistory, ordering medications,tests, procedures, referring, communicating with other health child care development specialist, indepentently interpreting results, counseling the patient and care coordination
[2023-09-14] VITALS (12 sets, daily range): BP systolic 96–108; BP diastolic 60–73; PULSE 78–102; RESP 2–18; TEMP 36.3–37.5; O2SAT 95–100
[2023-09-14 00:06] LABS: Lactate 1.8 mmol/L (0.6-1.4)
[2023-09-14] MEDS: Tiotropium/Olodaterol 10 PUFF INHALER 2 PUFF IH ×2 (00:45→08:42)
[2023-09-14] MEDS: Albuterol/Ipratropium 3 ML UPD VIAL UPD ×3 (00:50→11:32)
[2023-09-14] MEDS: LINEZOLID 600 MG/300 ML BAG 300 MG IVPB (06:00)
[2023-09-14 06:48] LABS: HCT 32.8 % (36.0-46.0); HGB 10.9 g/dL (11.2-15.7); MCH 35.9 pg (27.0-33.0); MCHC 33.2 % (32.0-36.0); MPV 10.6 fL (8.0-11.0); Platelet Count 358 10^3/uL (130-400); RBC 3.04 10^6/uL (3.93-5.22); RDW 17.2 % (11.7-14.6); RDW-SD 69.1 fL; WBC 9.24 10^3/uL (4.4-10.8)
[2023-09-14 06:49] LABS: MCV 108 fL (80-95)
[2023-09-14 07:13] LABS: BUN 10 mg/dL (7-18); CREATININE 0.6 mg/dL (0.55-1.02); Calcium 7.5 mg/dL (8.5-10.1); Chloride 103 mmol/L (98-107); Estimated GFR 101.42 (mL/min/1.73m2); Glucose 131 mg/dL (74-106); Magnesium 1.3 mg/dL (1.8-2.4); Potassium 3.7 mmol/L (3.5-5.1); Sodium 136 mmol/L (136-145)
[2023-09-14] MEDS: Thiamine 100 MG TAB 250 MG PO (07:55)
[2023-09-14] MEDS: Gabapentin 300 MG CAP PO ×2 (07:56→14:38)
[2023-09-14] MEDS: Magnesium Gluconate 500 MG TAB 250 MG PO (07:56)
[2023-09-14] MEDS: Omeprazole 20 MG CAPCR 40 MG PO (07:56)
[2023-09-14] MEDS: Normal Saline Flush 10 ML SYR IVP (09:12)
[2023-09-14] MEDS: PIPERACILLIN/TAZO 4.5 GM in Normal Saline 100 ML IVPB ×2 (09:12→14:37)
[2023-09-14] MEDS: Enoxaparin 40 MG/0.4 ML SYR SC (09:12)
[2023-09-14] MEDS: MAGNESIUM SULFATE 4 GM/100 ML BAG IVINF (10:16)
[2023-09-14] MEDS: Nicotine 2 MG LOZG SUC ×2 (13:28→15:40)
--- NOTE | 2023-09-14 14:39 | PGE_ITS ---
Date of Service Date of service: 09/14/23 Time of Service: 14:39 Assessment and Plan Assessment and plan (1) Severe sepsis: Status: Acute Assessment and plan: - Patient met sepsis criteria on admission with a heart rate of 111, respiratory rate in the 20s, and source of infection being right lower extremity cellulitis and initial lactic acid 3.3 which improved with IV fluid resuscitation -She failed outpatient therapy with p.o. Keflex, though initially presented on August 30 for which she was treated with p.o. Keflex -continue linezolid and Zosyn day 2 blood cultures pending (2) Cellulitis: Status: Acute Assessment and plan: - Has noted above elevation of legs (3) Acute respiratory failure with hypoxia: Status: Resolved Assessment and plan: - Patient was reportedly hypoxic in the emergency department on 4 L nasal cannula -She was given DuoNeb treatments upon presenting to MedSurg unit and has since been on room air (4) COPD exacerbation: Status: Acute Assessment and plan: - Continue as needed albuterol, and remainder of home inhaler regimen (5) Prolonged QT interval: Status: Acute Assessment and plan: - Baseline (6) Hypokalemia: Status: Acute Assessment and plan: - 3.3 in the emergency department, status post IV repletion -now 3.7 follow and replete as needed. (7) PVD (peripheral vascular disease): Status: Chronic (8) Alcoholic ketoacidosis: Status: Acute Assessment and plan: - Alcohol level was 150 in emergency department -It may be a contributing factor to elevated lactic acid in combination with severe sepsis as noted above (9) DVT prophylaxis: Status: Acute Assessment and plan: enoxaparin daily (10) Discharge planning issues: Status: Acute Assessment and plan: case management following PT consultation\ discussed with DR Altman Subjective Subjective Interval history since last seen: having nicotine withdrawal symptoms, no fever, eating and drinking. Exam Const General: no acute distress, frail appearing (older than stated age) and ill appearing chronically Nutritional Appearance: cachectic Orientation: alert, awake and oriented x3 HENMT Head: normal to inspection, normocephalic and atraumatic Mouth: moist mucous membranes abnormal (dry) Chest Chest: normal inspection of the chest Resp Effort & Inspection: normal respiratory effort Cardio Rate: regular rate and tachycardic (sinus 90-100's) GI Inspection: normal to inspection Skin Rashes: rashes noted Objective Last Vital Signs Temp 36.7 C 09/14/23 14:27 Pulse 100 H 09/14/23 14:27 Resp 12 09/14/23 14:27 BP 96/60 L 09/14/23 14:27 Pulse Ox 99 09/14/23 14:27 Laboratory Results - last 24 hr 09/13/23 09/13/23 09/13/23 18:16 21:09 21:33 WBC 6.99 RBC 3.30 L Hgb 11.8 Hct 34.7 L MCV 105 H MCH 35.8 H MCHC 34.0 RDW 16.9 H Plt Count 380 MPV 10.2 Immature Gran % 1.3 Neutrophils % 60.6 Lymphocytes % 29.0 Monocytes % 7.3 Eosinophils % 0.4 Basophils % 1.4 Nucleated RBC % 0.0 Absolute Neutrophils 4.23 Absolute Lymphocytes 2.03 Absolute Monocytes 0.51 Absolute Eosinophils 0.03 Absolute Basophils 0.10 RBC Morphology See Below Anisocytosis 1+ Macrocytosis 1+ VBG pH VBG pCO2 VBG pO2 VBG HCO3 VBG Total CO2 VBG O2 Saturation VBG Base Excess VBG Lactate 3.3 H* 2.5 H* Sodium 132 L Potassium 3.3 L Chloride 96 L Carbon Dioxide 23.8 Anion Gap 12.2 H BUN 9 Creatinine 0.5 L Est GFR (CKD-EPI 2020) 105.98 Glucose 56 L Calcium 8.0 L Magnesium 1.8 Total Bilirubin 0.5 AST 54 H ALT 33 Alkaline Phosphatase 141 H Troponin I < 50 < 50 Total Protein 6.2 L Albumin 2.4 L Procalcitonin 15.9 Urine Color Yellow Urine Clarity Clear Urine pH 7.0 Ur Specific [place] 1.010 Urine Protein Negative Urine Ketones Negative Urine Blood Negative Urine Nitrite Negative Urine Bilirubin Negative Urine Urobilinogen 0.2 Ur Leukocyte Esterase Negative Urine Glucose Negative Ethyl Alcohol 150.1 H 09/13/23 09/13/23 09/14/23 21:40 23:58 06:16 WBC 9.24 RBC 3.04 L Hgb 10.9 L Hct 32.8 L MCV 108 H MCH 35.9 H MCHC 33.2 RDW 17.2 H Plt Count 358 MPV 10.6 Immature Gran % Neutrophils % Lymphocytes % Monocytes % Eosinophils % Basophils % Nucleated RBC % Absolute Neutrophils Absolute Lymphocytes Absolute Monocytes Absolute Eosinophils Absolute Basophils RBC Morphology Anisocytosis Macrocytosis VBG pH 7.53 H VBG pCO2 23 L VBG pO2 37 VBG HCO3 19 L VBG Total CO2 17 L VBG O2 Saturation 73 VBG Base Excess -4 L VBG Lactate 1.8 H Sodium 136 Potassium 3.7 Chloride 103 Carbon Dioxide 22.0 Anion Gap 11.0 BUN 10 Creatinine 0.6 Est GFR (CKD-EPI 2020) 101.42 Glucose 131 H Calcium 7.5 L Magnesium 1.3 L Total Bilirubin AST ALT Alkaline Phosphatase Troponin I Total Protein Albumin Procalcitonin Urine Color Urine Clarity Urine pH Ur Specific [place] Urine Protein Urine Ketones Urine Blood Urine Nitrite Urine Bilirubin Urine Urobilinogen Ur Leukocyte Esterase Urine Glucose Ethyl Alcohol PAWSS Have you Been Recently Intoxicated or Drunk Within the Last 30 days?: Yes Have you Ever Experienced Previous Episodes of Alcohol Withdrawal?: No Have you ever Experienced Withdrawal Seizures?: No Have you ever Experienced Delirium Tremens(DT)s?: No Have you ever undergone Alcohol Rehabilitation Treatment (i.e, inpt ot outpatient treatment programs)?: No Have you ever Experienced Blackouts?: No Have you ever Combined Alcohol with other Downers within the last 90 days?: No Have you ever Combined Alcohol with any other Substance of Abuse during the last 90 days?: No Positive Blood Alcohol level on Presentation? [PCS.BAL]: No Evidence of Increased Autonomic Activity (i.e. HR>120, tremor, sweating, agitation, nausea)?: No Result: 1
--- NOTE | 2023-09-14 14:49 | PHA.REVIEW2 ---
Pharmacy Admission Review Admission Clinical Review Admission Pharmacy Review: (Updated 09/14/23 @ 14:44 by Deanna Weller NP) Discharge planning issues (Acute) DVT prophylaxis (Acute) COPD exacerbation (Acute) Cellulitis (Acute) Severe sepsis (Acute) Prolonged QT interval (Acute) Hypokalemia (Acute) Alcoholic ketoacidosis (Acute) bacitracin [From Neosporin ([id number])] Allergy (Mild, Verified 09/13/23 17:29) localized redness neomycin [From Neosporin ([id number])] Allergy (Mild, Verified 09/13/23 17:29) localized redness polymyxin B [From Neosporin (iak-[id number])] Allergy (Mild, Verified 09/13/23 17:29) localized redness Resuscitation Status Full Code Height 5 ft 8 in Weight 54.4 kg Pharmacy Admission Review Renal Dosing Renal Dosing: BUN 10 mg/dL (7-18) 09/14/23 06:16 Creatinine 0.6 mg/dL (0.55-1.02) 09/14/23 06:16 Medications needing adjustments: Reviewed (CrCl 50.07 mL/min) List of meds needing interventions: Current medications are okay Anticoagulation Anticoagulation: Hgb 10.9 g/dL (11.2-15.7) L 09/14/23 06:16 Hct 32.8 % (36.0-46.0) L 09/14/23 06:16 Plt Count 358 10^3/uL (130-400) 09/14/23 06:16 Creatinine 0.6 mg/dL (0.55-1.02) 09/14/23 06:16 DVT Prophylaxis: Reviewed Medications: Enoxaparin (40mg daily) Relevant Labs Relevant Labs: Sodium 136 mmol/L (136-145) 09/14/23 06:16 Potassium 3.7 mmol/L (3.5-5.1) 09/14/23 06:16 Chloride 103 mmol/L (98-107) 09/14/23 06:16 Magnesium 1.3 mg/dL (1.8-2.4) L 09/14/23 06:16 Electrolytes, C-Reactive P, ESR: Reviewed (Mg 1.3, Hgb decreased from 11.8 to 10.9, glucose 131) Cardiac Review Cardiac Review: Troponin I < 50 ng/L (< or =60) 09/13/23 21:09 Blood Pressure 96/60 1427 Blood Pressure 96/67 1107 Blood Pressure 108/73 0753 Blood Pressure 100/71 0347 BP, HR, EF%: Reviewed (BP 90/60 and HR 100) QTc Review QTc: Reviewed (537 from 09/13/23 - per progress note this is patients baseline) IV to PO Switch IV Medications: Reviewed (Potassium infusion, Zosyn and linezolid) Home Meds Home Med List reviewed: Reviewed Relevent Home Meds Not ordered & why?: Ibuprofen (PRN), loperamide (PRN) and multivitamin Current Meds Current Medication Order Review: Reviewed Pharmacy Antibiotic Review Relevant Labs: Relevant Labs 09/13/23 18:16 Procalcitonin 15.9 WBC 9.24 10^3/uL (4.4-10.8) 09/14/23 06:16 Procalcitonin 15.9 ng/mL 09/13/23 18:16 Temperature 36.7 C Temperature 37.5 C Temperature 36.3 C Temperature 36.6 C Pharmacy Antibiotic Activity: C/S review and Reviewed, no change Comments: Patient is on day 2 of linezolid and Zosyn for sepsis cellulitis. WBC normal and patient is afebrile. Blood and urine cultures are pending.
--- NOTE | 2023-09-14 15:28 | DSE_ITS ---
Date of service: 09/14/23 Time of Service: 15:28 DS: Diagnosis Discharge Diagnosis (1) Severe sepsis: Status: Acute (2) Cellulitis: Status: Acute (3) Acute respiratory failure with hypoxia: Status: Resolved (4) COPD exacerbation: Status: Acute (5) Prolonged QT interval: Status: Acute (6) Hypokalemia: Status: Acute (7) PVD (peripheral vascular disease): Status: Chronic (8) Alcoholic ketoacidosis: Status: Acute Discharge Plan Disposition Patient Disposition: Home Condition: Stable Discharge Details Reason For Visit: Severe Sepsis Cellulitis Admit Date/Time: 09/13/23 22:40 Admit Provider: Ck Haas Attending Provider: Ck Haas Primary Care Provider: MARIANO KEARNEY Hospital Course Hospital Course: This is a 63-year-old female patient well-known to the hospitalist services admitted with severe sepsis from cellulitis bilateral lower extremities failed outpatient management with cephalexin. She was bolused with IV fluids did not require pressors for stabilization. She was afebrile eating and drinking bowels and bladder functioning feeling markedly improved and ready for discharge to home. She will be discharged on Augmentin as a stepdown from the Zosyn she has been receiving and will continue receiving linezolid to complete a 7-day course. She is being discharged to home with no services and will follow-up outpatient with her primary care provider Discharge discussed with Dr. Estrella Home Meds and New Rx's Prescriptions: New amoxicillin-pot clavulanate 875-125 mg tablet 1 tab PO BID Qty: 14 0RF linezolid 600 mg tablet 600 mg PO Q12H 10 Days Qty: 20 0RF Continued ipratropium-albuterol 0.5 mg-3 mg(2.5 mg base)/3 mL solution for nebulization 3 ml inhalation Q4H PRN (Reason: wheezing) Qty: 540 8RF albuterol sulfate 90 mcg/actuation HFA aerosol inhaler 2 puff inhalation Q6H PRN (Reason: shortness of breath or wheezing) Qty: 8.5 12RF thiamine HCl (vitamin B1) 250 mg tablet 250 mg PO DAILY gabapentin 300 mg capsule 300 mg PO TID Stiolto Respimat 2.5-2.5 mcg/actuation mist 2 puff inhalation Q24H Qty: 4 12RF loperamide [Imodium A-D] 1 mg/7.5 mL liquid 2 mg PO Q1-4H PRNQty: 120 0RF Rx Instructions: administer after each loose stool until symptoms controlled; do not exceed 16 mg per 24 hrs multivitamin [Multiple Vitamins] Tablet 1 tab PO DAILY Qty: 30 0RF magnesium 250 mg tablet 250 mg PO DAILY Qty: 20 0RF ibuprofen 600 mg tablet 600 mg PO TID PRNQty: 30 0RF omeprazole 40 mg capsule,delayed release(DR/EC) 40 mg PO DAILY Discontinued cephalexin 500 mg capsule 500 mg PO Q6H 10 Days Qty: 40 0RF Discharge Instructions Instructions: Cellulitis (DC) Additional Instructions: take antibiotics as prescribed even if you feel better elevate legs periodically throughout the day to help reduce swelling Stand Alone Forms: Nursing Discharge Form Referrals: MARIANO KEARNEY SETTLEMENT WORKER [Primary Care Provider] - 09/15/23 1:30 pm Activity:: Activity as Tolerated Equipment/Supplies:: No Equipment Needed Diet:: As Tolerated Discharge Orders Discharge Orders: Discharge Order (Routine); Ordered 09/14/23 Ordered By: Deanna Weller Discharge Data Discharge Date/Time-TO BE ENTERED AT DEPARTURE: 09/14/23 16:53 DS: Summary Time Spent with Patient providing and/or coordinating discharge services: Less than 30 minutes Status at Discharge Functional status at discharge: independent ambulation Overall status at discharge: patient is progressing back to baseline Mental Status: mental status grossly normal Speech and Movement: speech and movement normal Mood: congruent mood Affect: normal affect Quality:SDOH Health Related Social Needs: Health related social needs transpo insecurity Exam Const General: cooperative, comfortable and no acute distress Orientation: alert, awake and oriented x3 HENMT Head: normal to inspection, normocephalic and atraumatic Mouth: moist mucous membranes abnormal (Slightly dry) Eyes General: appearance normal, both eyes and all related structures Alignment and Position: alignment normal Conjunctivae: conjunctivae normal Sclera: sclerae normal EOM: EOM intact bilaterally Neck Neck: normal visual inspection and full ROM Resp Effort & Inspection: normal respiratory effort and able to speak in complete sentences Auscultation: clear to auscultation bilaterally Cardio Rate: regular rate Rhythm: regular rhythm GI Palpation: soft, not firm, no guarding and nontender Auscultation: normal bowel sounds Back/Spine/Pelvis Back: No back tenderness Skin Lesions: lesion noted (Healing scabs noted to bilateral lower extremities mild erythema no signifi) Rashes: rashes noted Neuro General: patient alert, patient awake, patient oriented x3 and moves all extremities Extrem General: normal to inspection, full ROM and no pedal edema Psych Appearance: grossly normal Mental Status: mental status grossly normal Speech and Movement: speech and movement normal Mood: congruent mood Affect: normal affect DS: Data Vitals/I&O Vitals and I&O: Vital Signs Temperature 36.7 C 09/14/23 14:27 Temperature Source Tympanic 09/14/23 14:27 Pulse 100 H 09/14/23 14:27 Pulse Rhythm Regular 09/14/23 08:00 Pulse 94 H 09/13/23 23:31 Respiratory Rate 12 09/14/23 14:27 Respiratory Effort Normal 09/14/23 08:00 Respiratory Depth Normal 09/14/23 08:00 Respiratory Pattern Normal 09/14/23 08:00 Blood Pressure 96/60 L 09/14/23 14:27 Blood Pressure Mean 84 09/13/23 23:30 Blood Pressure Position Sitting 09/13/23 17:23 Pulse Oximetry 99 09/14/23 14:27 Oxygen Delivery Method Room Air 09/14/23 11:32 Oxygen Flow Rate 0 09/14/23 11:32 Pain Level 0 09/14/23 03:47 Comment BP called over radio 09/14/23 11:07 Intake & Output 09/13/23 09/14/23 09/14/23 23:59 11:59 23:59 Intake Total 2520 / 2520 1320 / 2320 1000 / 2320 Output Total 800 / 800 350 / 550 200 / 550 Balance 1720 / 1720 970 / 1770 800 / 1770 Weight 54.431 kg 54.4 kg Intake: IV 2520 / 2520 1100 / 2100 1000 / 2100 Oral 220 / 220 Output: Urine 800 / 800 350 / 550 200 / 550 Other: Urine Color Pale Yellow Yellow Urine Appearance Clear Clear Clear Stool Size Moderate Stool Characteristics Liquid Data Completed and Pending Labs on day of discharge: Labs from last 24 hours 09/14/23 09/13/23 09/13/23 06:16 23:58 21:40 WBC 9.24 RBC 3.04 L Hgb 10.9 L Hct 32.8 L MCV 108 H MCH 35.9 H MCHC 33.2 RDW 17.2 H Plt Count 358 MPV 10.6 Immature Gran % Neutrophils % Lymphocytes % Monocytes % Eosinophils % Basophils % Nucleated RBC % Absolute Neutrophils Absolute Lymphocytes Absolute Monocytes Absolute Eosinophils Absolute Basophils RBC Morphology Anisocytosis Macrocytosis VBG pH 7.53 H VBG pCO2 23 L VBG pO2 37 VBG HCO3 19 L VBG Total CO2 17 L VBG O2 Saturation 73 VBG Base Excess -4 L VBG Lactate 1.8 H Sodium 136 Potassium 3.7 Chloride 103 Carbon Dioxide 22.0 Anion Gap 11.0 BUN 10 Creatinine 0.6 Est GFR (CKD-EPI 2020) 101.42 Glucose 131 H Calcium 7.5 L Magnesium 1.3 L Total Bilirubin AST ALT Alkaline Phosphatase Troponin I Total Protein Albumin Procalcitonin Urine Color Urine Clarity Urine pH Ur Specific [place] Urine Protein Urine Ketones Urine Blood Urine Nitrite Urine Bilirubin Urine Urobilinogen Ur Leukocyte Esterase Urine Glucose Ethyl Alcohol 09/13/23 09/13/23 09/13/23 21:33 21:09 18:16 WBC 6.99 RBC 3.30 L Hgb 11.8 Hct 34.7 L MCV 105 H MCH 35.8 H MCHC 34.0 RDW 16.9 H Plt Count 380 MPV 10.2 Immature Gran % 1.3 Neutrophils % 60.6 Lymphocytes % 29.0 Monocytes % 7.3 Eosinophils % 0.4 Basophils % 1.4 Nucleated RBC % 0.0 Absolute Neutrophils 4.23 Absolute Lymphocytes 2.03 Absolute Monocytes 0.51 Absolute Eosinophils 0.03 Absolute Basophils 0.10 RBC Morphology See Below Anisocytosis 1+ Macrocytosis 1+ VBG pH VBG pCO2 VBG pO2 VBG HCO3 VBG Total CO2 VBG O2 Saturation VBG Base Excess VBG Lactate 2.5 H* 3.3 H* Sodium 132 L Potassium 3.3 L Chloride 96 L Carbon Dioxide 23.8 Anion Gap 12.2 H BUN 9 Creatinine 0.5 L Est GFR (CKD-EPI 2020) 105.98 Glucose 56 L Calcium 8.0 L Magnesium 1.8 Total Bilirubin 0.5 AST 54 H ALT 33 Alkaline Phosphatase 141 H Troponin I < 50 < 50 Total Protein 6.2 L Albumin 2.4 L Procalcitonin 15.9 Urine Color Yellow Urine Clarity Clear Urine pH 7.0 Ur Specific [place] 1.010 Urine Protein Negative Urine Ketones Negative Urine Blood Negative Urine Nitrite Negative Urine Bilirubin Negative Urine Urobilinogen 0.2 Ur Leukocyte Esterase Negative Urine Glucose Negative Ethyl Alcohol 150.1 H 09/13/23 21:30 Blood Blood Culture - Pending 09/13/23 21:33 Urine - Cath Douglas Indwelling Urine Culture - Pending 09/13/23 21:40 Blood Blood Culture - Pending Preliminary micro results at discharge 09/13/23 21:30 Blood Culture - Pending Blood 09/13/23 21:33 Urine Culture - Pending Urine - Cath Douglas Indwelling 09/13/23 21:40 Blood Culture - Pending Blood PFSH All Active Problems (Updated 09/15/23 @ 00:08 by CODY ZHU) COPD exacerbation (Acute) Cellulitis (Acute) Severe sepsis (Acute) Prolonged QT interval (Acute) Respiratory failure (Acute) Leg pain (Acute) Sepsis (Acute) Shock (Acute) Hypomagnesemia (Acute) Hypokalemia (Acute) Difficulty walking (Acute) PVD (peripheral vascular disease) (Chronic) Atherosclerosis of aorta (Acute) Leg swelling (Acute) Acute hypokalemia (Acute) Hypoglycemia (Acute) Alcoholic ketoacidosis (Acute) Laceration of scalp (Acute) Fall (Acute) Chronic left hip pain (Acute) Contusion of hip (Acute) Closed intertrochanteric fracture of left hip (Acute) s/p IMN fixation (05/18/23) Smoker (Acute) Closed fracture of left hip (Acute) Fall (Acute) Alcohol intoxication (Acute) Anxiety (Chronic) Cavitary lesion of lung (Acute) H/O ETOH abuse (Acute) Tobacco use disorder (Acute 01/28/14) Pleural effusion (Acute) Hypomagnesemia (Acute) Fluid overload (Acute) Chest pain due to GERD (Acute) Chest wall muscle strain (Acute) Hypokalemia (Acute) COPD exacerbation (Acute) Emphysema lung (Acute) Nicotine dependence, cigarettes, uncomplicated (Acute) Atherosclerosis (Acute) Gastric wall thickening (Acute) Stenosis of right internal carotid artery (Acute) Mass of upper lobe of right lung (Acute) Alcohol abuse (Chronic) Dehydration (Acute) Diarrhea (Acute) Hypomagnesemia (Chronic) B12 deficiency (Acute) Ascites (Acute) Chronic liver disease (Chronic) Weight loss, non-intentional (Acute) Macrocytic anemia (Acute) Early satiety (Acute) Folate deficiency (Acute) Hypomagnesemia (Acute) Hypokalemia (Acute) Leg pain (Acute) Cellulitis (Acute) Bilateral leg ulcer (Acute) Medical History Pulmonary nodule COPD (chronic obstructive pulmonary disease) Hypomagnesemia Cachexia Hepatic fibrosis Ulcer of lower extremity Hair loss Vitamin D deficiency Chest pain Gastroesophageal reflux disease Hx pulmonary embolism COPD (chronic obstructive pulmonary disease) Chronic vomiting Malnutrition Frequent falls Bilateral leg pain Pancreatitis Diastolic dysfunction Folate deficiency anemia Ascites Bilateral lower extremity edema Unintentional weight loss Alcohol abuse Tobacco dependence syndrome Tobacco abuse Surgical History punch biopsy, skin of ankle, right lateral (11/24/16) negative for malignancy, sparse inflammation and reactive blood vessels foot surgery (~2000) Ligation of fallopian tube (~1999) ENT/Nasal surgery (~2007) Family History Father Lung disease Cancer Lung Social History Smoking/Tobacco Use Status: Current every day Tobacco Type: cigarettes Tobacco: How many years used: 45 Quit status: considering quitting Second Hand Exposure: Yes Smoking risk assessment performed?: Yes Alcohol Intake: current Alcohol Intake frequency: 3 or more drinks per day Alcohol type: wine and hard liquor Counseling given: Yes Counseling provided: provider counseling Drug use: Rarely Substance use type: marijuana Details: daily drinker, presents to [facility] under the influence of ETOH, states I didn't have much, 3 or 4 lemon drop martinis and a couple, maybe three or four hot toddies Housing: apartment Current gender identity: female Do you feel safe at home: Yes Do you feel safe in your relationship?: Yes Additional Social history: Lives alone in studio in [facility], 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 Grew up in [place] [place], sisters in area. History History Para 0 Hx # Term Pregnancies Multiple births Hx # Pregnancies Ectopic pregnancies AB induced Hx Number of Living Children AB spontaneous Time Spent with Patient Time Spent with Patient: <45 minutes Time was spent: preparing to see the patient(eg.review tests), ordering medications,tests, procedures, indepentently interpreting results and counseling the patient
--- NOTE | 2023-09-15 09:00 | PT.INNT ---
PT Notes Visit Reasons: Severe Sepsis Cellulitis Patient was discharged mid afternoon yesterday at baseline mobility level. No services were provided for this epsiode of care.
== END 2023-09-14 16:53 | disposition home or self-care (01) | DRG 871 ==
LOC: ER 23:13 → MS 23:39
PROVIDERS: Admitting Provider Family Medicine; Emergency Provider Student in an Organized Health Care Education/Training Program; PCP Nurse Practitioner Family; Visit Provider Family Medicine
DX: A41.9 Sepsis, unspecified organism (principal); J96.01 Acute respiratory failure with hypoxia; J44.1 Chronic obstructive pulmonary disease with (acute) exacerbation; L03.115 Cellulitis of right lower limb; K55.1 Chronic vascular disorders of intestine; E87.29 Other acidosis; E46 Unspecified protein-calorie malnutrition; Z68.1 Body mass index [BMI] 19.9 or less, adult; R65.20 Severe sepsis without septic shock; R94.31 Abnormal electrocardiogram [ECG] [EKG]; I73.9 Peripheral vascular disease, unspecified; E87.6 Hypokalemia; F10.10 Alcohol abuse, uncomplicated; E83.42 Hypomagnesemia; I70.0 Atherosclerosis of aorta; F17.210 Nicotine dependence, cigarettes, uncomplicated; I65.21 Occlusion and stenosis of right carotid artery; E53.8 Deficiency of other specified B group vitamins; K21.9 Gastro-esophageal reflux disease without esophagitis; K74.00 Hepatic fibrosis, unspecified; E16.2 Hypoglycemia, unspecified
CPT/HCPCS: 00123; 36415; 36416; 51702; 71275; 74177; 80048; 80053; 82805; 82962; 84145; 85027; 87040; 93005; 94640; 96361; 96365; 96368; 96375; 99291; J1650; 71045; 80320; 81003; 83605; 83735; 84484; 85025; 87086; 93010; 94664; 99223; 99238; J1885; J2020; J2543; J2765; J3475; J3480; J3490; J7620

== ENCOUNTER 2023-09-21 10:46 | Observation (INO) | payer BC, SELFPAY ==
[2023-09-21] VITALS (13 sets, daily range): BP systolic 81–164; BP diastolic 50–95; PULSE 79–115; RESP 14–23; TEMP 36.9–37.1; O2SAT 96–100
--- NOTE | 2023-09-21 11:06 | W.ED.GENAD ---
Discharge Plan Disposition Patient Disposition: Admit to [facility] Condition: Stable Discharge Details Clinical Impression: Congestive heart failure, Edema of both lower legs Primary Care Provider: MARIANO KEARNEY ED Provider: Walter Zheng Home Meds and New Rx's Prescriptions: No Action ipratropium-albuterol 0.5 mg-3 mg(2.5 mg base)/3 mL solution for nebulization 3 ml inhalation Q4H PRN (Reason: wheezing) Qty: 540 8RF albuterol sulfate 90 mcg/actuation HFA aerosol inhaler 2 puff inhalation Q6H PRN (Reason: shortness of breath or wheezing) Qty: 8.5 12RF thiamine HCl (vitamin B1) 250 mg tablet 250 mg PO DAILY gabapentin 300 mg capsule 300 mg PO TID Stiolto Respimat 2.5-2.5 mcg/actuation mist 2 puff inhalation Q24H Qty: 4 12RF loperamide [Imodium A-D] 1 mg/7.5 mL liquid 2 mg PO Q1-4H PRNQty: 120 0RF Rx Instructions: administer after each loose stool until symptoms controlled; do not exceed 16 mg per 24 hrs multivitamin [Multiple Vitamins] Tablet 1 tab PO DAILY Qty: 30 0RF magnesium 250 mg tablet 250 mg PO DAILY Qty: 20 0RF ibuprofen 600 mg tablet 600 mg PO TID PRNQty: 30 0RF omeprazole 40 mg capsule,delayed release(DR/EC) 40 mg PO DAILY amoxicillin-pot clavulanate 875-125 mg tablet 1 tab PO BID Qty: 14 0RF linezolid 600 mg tablet 600 mg PO Q12H 10 Days Qty: 20 0RF HPI General Date/Time Provider Initiated Documentation: 09/21/23 10:54. HPI Narrative: 63 year-old female presents to ED today by POV/ambulating with a chief complaint of increasing leg edema, leg pain, having difficulty with ambulating any more than bedside transfer, positive for ETOH intake, with onset over the long-term. Quality described as very painful, cannot move her toes, no radiation to shortness of breath, cough, headache, abdominal pain, chest pain. Severity is described as severe pain in legs. Palliating factors include nothing specific. Provoking factors include nothing specific. Patient not anticoagulated. Related Data Home Medications Medication Instructions Recorded Confirmed multivitamin (Multiple Vitamins 1 tab PO DAILY #30 tabs 08/13/20 09/21/23 tablet) albuterol sulfate 90 mcg/actuation 2 puff inhalation Q6H PRN 01/18/22 09/21/23 aerosol inhaler shortness of breath or wheezing #8.5 grams magnesium 250 mg tablet 250 mg PO DAILY #20 tabs 11/09/22 09/21/23 thiamine HCl (vitamin B1) 250 mg 250 mg PO DAILY 04/19/23 09/21/23 tablet tiotropium 2.5 mcg-olodaterol 2.5 2 puff inhalation Q24H #4 grams 05/04/23 09/21/23 mcg/actuation mist for inhalation (Stiolto Respimat) ipratropium 0.5 mg-albuterol 3 mg 3 ml inhalation Q4H PRN wheezing 05/10/23 09/21/23 (2.5 mg base)/3 mL nebulization #540 mL soln ibuprofen 600 mg tablet 600 mg PO TID PRN #30 tabs 05/20/23 09/21/23 gabapentin 300 mg capsule 300 mg PO TID 06/06/23 09/21/23 omeprazole 40 mg capsule,delayed 40 mg PO DAILY 06/12/23 09/21/23 release loperamide 1 mg/7.5 mL oral liquid 2 mg (15 mL) PO Q1-4H PRN #120 mL 08/02/23 09/21/23 (Imodium A-D) amoxicillin 875 mg-potassium 1 tab PO BID #14 tabs 09/14/23 09/21/23 clavulanate 125 mg tablet linezolid 600 mg tablet 600 mg PO Q12H 10 days #20 tabs 09/14/23 09/21/23 Previous Rx's Medication Instructions Recorded multivitamin (Multiple Vitamins 1 tab PO DAILY #30 tabs 08/13/20 tablet) albuterol sulfate 90 mcg/actuation 2 puff inhalation Q6H PRN 01/18/22 aerosol inhaler shortness of breath or wheezing #8.5 grams magnesium 250 mg tablet 250 mg PO DAILY #20 tabs 11/09/22 tiotropium 2.5 mcg-olodaterol 2.5 2 puff inhalation Q24H #4 grams 05/04/23 mcg/actuation mist for inhalation (Stiolto Respimat) ipratropium 0.5 mg-albuterol 3 mg 3 ml inhalation Q4H PRN wheezing 05/10/23 (2.5 mg base)/3 mL nebulization #540 mL soln ibuprofen 600 mg tablet 600 mg PO TID PRN #30 tabs 05/20/23 loperamide 1 mg/7.5 mL oral liquid 2 mg (15 mL) PO Q1-4H PRN #120 mL 08/02/23 (Imodium A-D) amoxicillin 875 mg-potassium 1 tab PO BID #14 tabs 09/14/23 clavulanate 125 mg tablet linezolid 600 mg tablet 600 mg PO Q12H 10 days #20 tabs 09/14/23 Allergies Allergy/AdvReac Type Severity Reaction Status Date / Time bacitracin Allergy Mild localized Verified 09/21/23 10:56 [From Neosporin redness ([id number])] neomycin Allergy Mild localized Verified 09/21/23 10:56 [From Neosporin redness ([id number])] polymyxin B Allergy Mild localized Verified 09/21/23 10:56 [From Neosporin redness ([id number])] General Stated Complaint: GenMedical RAHEEM: 3 Review of Systems All systems reviewed & are unremarkable except as noted in HPI and below Exam Narrative Exam Narrative: GENERAL APPEARANCE: Mal-nourished, non-toxic, awake and alert, atraumatic, no acute distress. SKIN: Warm, pink, dry, intact, without rashes/lesions/ulcerations. HEAD: Normocephalic, atraumatic, normal hair distribution for gender/age. EYES: Pupils PERRLA, EOMs intact without nystagmus, normal conjunctiva, no exudates on lids/lashes. ENT: Nares patent, no circumoral cyanosis, no facial swelling NECK: Supple, trachea midline, painless cervical ROM. LUNGS/CHEST: Lungs CTA bilaterally- no overt wheezing or rales at bases, non-labored respirations, normal A/P diameter, symmetrical expansion, no chest wall deformity HEART (CV/PV): Regular rate and rhythm without murmur, mildly tachycardic, 4+ peripheral edema with severe tenderness, no JVD, pedal pulses not palpable ABDOMEN: Soft, distended, no guarding, no tenderness. MSK: Normal ROM, no swelling/deformity to bilateral UEs or LEs, moving all extremities without weakness, no cyanosis, spine midline without tenderness, normal curvature. Bilateral legs edematous, no open lesions, no serous weeping, severe tenderness to palpation, ROM not maintained in toes, coolness to touch in toes, brisk capillary refill in bilateral feet NEURO: Mental Status AAOx4 - alert to person, place, time, events No facial droop, no forehead involvement. Motor: No focal weakness - strength 5/5 in bilateral UEs and LEs, proximal and distal, symmetric. Sensory: sensation intact to light touch globally. Gait normal: patient ambulated without ataxia into ED room. PSYCH: euthymic, cooperative, pleasant, appropriate speech Course Vital Signs Vital signs: Vital Signs Temperature 36.9 C 09/21/23 10:49 Pulse 103 H 09/21/23 10:49 Respiratory Rate 16 09/21/23 10:49 Blood Pressure 98/50 L 09/21/23 10:49 Pulse Oximetry 99 09/21/23 10:49 Temperature 36.9 C 09/21/23 10:49 Pulse 103 H 09/21/23 10:49 Respiratory Rate 16 09/21/23 10:49 Respiratory Effort Normal 09/21/23 10:52 Respiratory Depth Normal 09/21/23 10:52 Respiratory Pattern Normal 09/21/23 10:52 Blood Pressure 98/50 L 09/21/23 10:49 Pulse Oximetry 99 09/21/23 10:49 Oxygen Delivery Method Room Air 09/21/23 10:49 Oxygen Flow Rate 0 09/21/23 10:49 Pain Level 10 09/21/23 10:49 Medical Decision Making This dictation utilizes [id number] dictation software and may contain unedited grammatical errors. 63 y/o F presents to ED today with a chief complaint of leg edema, acute on chronic, states its becoming worse. Patient is well-known to the department and has long-term ETOH use disorder, drinks Lemon Drop martini's daily. Denies history of CHF, denies any other complaint, denies chest pain/shortness of breath, nausea/vomiting, endorses that she is having severe pain, worse with dependency of bilateral LEs, cannot move her toes. Patient does have HomeHealth visits, still failing outpatient therapy. Patients' medical history: COPD, denies known congestive heart failure, has hepatic fibrosis without overt cirrhosis, history of GERD, history of PE, diastolic dysfunction, ascites, tobacco abuse, electrolyte abnormalities, peripheral vascular disease. Family and social history: Drinks hard liquor daily, does not exercise, is having difficulty transferring from bed to bedside commode. Pertinent exam findings / vital signs include hypotensive on arrival 78/50, dropping to as low as mid 60s over 30 per medical staff services coordinator. Spontaneously resolved after norepinephrine ordered but not given. Severe 4+ edema in the lower legs from bilateral feet to bilateral knee, warm to touch in the calf, toes are cool to touch, severe tenderness with any palpation, pedal pulses not palpable. Differential / pathologies of concern include PAD, Hypotension, Sepsis, Cellulitis, Lymphedema, CHF, Hepatic Failure. Diagnostic studies of: -CBC, BMP, ammonia, BNP, lipase, liver panel, procalcitonin, PT, troponin, lactate, magnesium, urinalysis. -CBC shows no leukocytosis, chronic anemia at baseline -Lactate 2.7, has history of high lactates likely does not clear due to liver dysfunction-procalcitonin 12.7 -BMP shows mild hypokalemia 3.3, repleted with 40 mill equivalents p.o. -Normal kidney function -Chronically elevated LFTs -BNP significantly elevated at 2465 -UA is benign with small leuk esterase -PT within normal limits -Magnesium 1.3, need repletion by IV -Ammonia neg Interventions of: -2gm IV magnesium, 40mEq PO potassium > Consult for admission. ED Course/Assessment/Plan: 63-year-old female presents with severe bilateral lower extremity edema acutely worse and chronic in nature, does have significant elevation of procalcitonin and lactate and some erythema to the lower extremities, swelling is 4+ feet to the knees. Pedal pulses are nonpalpable due to level of edema, patient has coolness to touch of the toes, concern for severe worsening and failing outpatient treatment even with home health visits, severely affecting patient's ability to do anything more than transfer from bed to bedside commode. Patient has chronic alcohol issues, possibly having congestive heart failure, consulted with hospitalist for admission for likely echocardiogram, patient may need appliances to help with the swelling in her legs. Patient was open to admission. Dr. Downey accepted at 1444. Findings not consistent with hypoxic respiratory failure, persistent hypotension. Disposition of Congestive Heart Failure, Edema of Both Lower Legs. Patient verbalized understanding of the plan and return to ED criteria and engaged in shared decision making. Medical Records Medical records reviewed: Yes I reviewed the patient's medical records. Lab Data Lab results reviewed: Yes I reviewed the patient's lab results. Labs: Laboratory Tests Range/Units 09/21/23 09/21/23 09/21/23 11:15 12:15 12:18 WBC (4.4-10.8) 10^3/uL 7.10 RBC (3.93-5.22) 10^6/uL 2.95 L Hgb (11.2-15.7) g/dL 10.8 L Hct (36.0-46.0) % 32.3 L MCV (80-95) fL 110 H MCH (27.0-33.0) pg 36.6 H MCHC (32.0-36.0) % 33.4 RDW (11.7-14.6) % 15.6 H Plt Count (130-400) 10^3/uL 313 MPV (8.0-11.0) fL 10.1 Immature Gran % % 0.3 Neutrophils % % 73.7 Lymphocytes % % 19.0 Monocytes % % 3.9 Eosinophils % % 2.1 Basophils % % 1.0 Nucleated RBC % (0.0-0.3) % 0.0 Absolute Neutrophils (1.2-6.7) 10^3/uL 5.23 Absolute Lymphocytes (1.2-3.4) 10^3/uL 1.35 Absolute Monocytes (0.1-0.8) 10^3/uL 0.28 Absolute Eosinophils (0.0-0.7) 10^3/uL 0.15 Absolute Basophils (0.0-0.2) 10^3/uL 0.07 Macrocytosis 1+ PT (9.1-11.1) sec 10.7 INR (0.9-1.1) 1.1 VBG Lactate (0.6-1.4) mmol/L 2.7 H* Sodium (136-145) mmol/L 133 L Potassium (3.5-5.1) mmol/L 3.3 L Chloride (98-107) mmol/L 99 Carbon Dioxide (21.0-32.0) mmol/L 21.3 Anion Gap (3-11) mmol/L 12.7 H BUN (7-18) mg/dL 3 L Creatinine (0.55-1.02) mg/dL 0.4 L Est GFR (CKD-EPI 2020) (mL/min/1.73m2) 111.83 Glucose (74-106) mg/dL 65 L Calcium (8.5-10.1) mg/dL 7.9 L Magnesium (1.8-2.4) mg/dL 1.3 L Total Bilirubin (0.2-1.0) mg/dL 0.4 Conjugated Bilirubin (0.0-0.2) mg/dL 0.2 AST (15-37) U/L 73 H ALT (14-59) U/L 37 Alkaline Phosphatase (46-116) U/L 130 H Ammonia (11-32) umol/L 29 Troponin I (< or =60) ng/L < 50 NT-Pro-B Natriuret Pep (<300) pg/mL 2465 H Total Protein (6.4-8.2) g/dL 5.5 L Albumin (3.4-5.0) g/dL 2.1 L Lipase (16-77) U/L 23 Procalcitonin ng/mL 12.7 Urine Color (Yellow) Straw Urine Clarity (Clear) Clear Urine pH (5-8) 6.5 Ur Specific [place] (1.005-1.025) 1.010 Urine Protein (Neg-Trace) mg/dL Negative Urine Ketones (Negative) mg/dL Negative Urine Blood (Negative) Negative Urine Nitrite (Negative) Negative Urine Bilirubin (Negative) Negative Urine Urobilinogen (Up to 0.2) mg/dL 0.2 Ur Leukocyte Esterase (Negative) Small H Urine RBC (0-2) HPF Negative Urine WBC (0-5) HPF 3-5 Ur Epithelial Cells (Negative) HPF Rare Urine Crystals (Negative) HPF Negative Urine Bacteria (Negative) HPF Negative Urine Casts (Negative) LPF Negative Urine Mucus (Negative) Negative Ur Culture Indicated? No Urine Glucose (Negative) mg/dL Negative Quality:SDOH Health Related Social Needs: Health related social needs transpo insecurity PFSH All Active Problems (Updated 09/21/23 @ 15:42 by AMIE Orellana) Edema of both lower legs (Acute) Congestive heart failure (Chronic) COPD exacerbation (Acute) Cellulitis (Acute) Severe sepsis (Acute) Prolonged QT interval (Acute) Respiratory failure (Acute) Leg pain (Acute) Sepsis (Acute) Shock (Acute) Hypomagnesemia (Acute) Hypokalemia (Acute) Difficulty walking (Acute) PVD (peripheral vascular disease) (Chronic) Atherosclerosis of aorta (Acute) Leg swelling (Acute) Acute hypokalemia (Acute) Hypoglycemia (Acute) Alcoholic ketoacidosis (Acute) Laceration of scalp (Acute) Fall (Acute) Chronic left hip pain (Acute) Contusion of hip (Acute) Closed intertrochanteric fracture of left hip (Acute) s/p IMN fixation (05/18/23) Smoker (Acute) Closed fracture of left hip (Acute) Fall (Acute) Alcohol intoxication (Acute) Anxiety (Chronic) Cavitary lesion of lung (Acute) H/O ETOH abuse (Acute) Tobacco use disorder (Acute 01/28/14) Pleural effusion (Acute) Hypomagnesemia (Acute) Fluid overload (Acute) Chest pain due to GERD (Acute) Chest wall muscle strain (Acute) Hypokalemia (Acute) COPD exacerbation (Acute) Emphysema lung (Acute) Nicotine dependence, cigarettes, uncomplicated (Acute) Atherosclerosis (Acute) Gastric wall thickening (Acute) Stenosis of right internal carotid artery (Acute) Mass of upper lobe of right lung (Acute) Alcohol abuse (Chronic) Dehydration (Acute) Diarrhea (Acute) Hypomagnesemia (Chronic) B12 deficiency (Acute) Ascites (Acute) Chronic liver disease (Chronic) Weight loss, non-intentional (Acute) Macrocytic anemia (Acute) Early satiety (Acute) Folate deficiency (Acute) Hypomagnesemia (Acute) Hypokalemia (Acute) Leg pain (Acute) Cellulitis (Acute) Bilateral leg ulcer (Acute) Medical History Pulmonary nodule COPD (chronic obstructive pulmonary disease) Hypomagnesemia Cachexia Hepatic fibrosis Ulcer of lower extremity Hair loss Vitamin D deficiency Chest pain Gastroesophageal reflux disease Hx pulmonary embolism COPD (chronic obstructive pulmonary disease) Chronic vomiting Malnutrition Frequent falls Bilateral leg pain Pancreatitis Diastolic dysfunction Folate deficiency anemia Ascites Bilateral lower extremity edema Unintentional weight loss Alcohol abuse Tobacco dependence syndrome Tobacco abuse Surgical History punch biopsy, skin of ankle, right lateral (11/24/16) negative for malignancy, sparse inflammation and reactive blood vessels foot surgery (~2000) Ligation of fallopian tube (~1999) ENT/Nasal surgery (~2007) Family History Father Lung disease Cancer Lung Social History Smoking/Tobacco Use Status: Current every day Tobacco Type: cigarettes Tobacco: How many years used: 45 Quit status: considering quitting Second Hand Exposure: Yes Smoking risk assessment performed?: Yes Alcohol Intake: current Alcohol Intake frequency: 3 or more drinks per day Alcohol type: wine and hard liquor Counseling given: Yes Counseling provided: provider counseling Drug use: Rarely Substance use type: marijuana Details: daily drinker, presents to [facility] under the influence of ETOH, states I didn't have much, 3 or 4 lemon drop martinis and a couple, maybe three or four hot toddies Housing: apartment Current gender identity: female Do you feel safe at home: Yes Do you feel safe in your relationship?: Yes Additional Social history: Lives alone in studio in [facility], 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 Grew up in [facility], sisters in area. History History Para 0 Hx # Term Pregnancies Multiple births Hx # Pregnancies Ectopic pregnancies AB induced Hx Number of Living Children AB spontaneous PAWSS Have you Been Recently Intoxicated or Drunk Within the Last 30 days?: No Have you Ever Experienced Previous Episodes of Alcohol Withdrawal?: No Have you ever Experienced Withdrawal Seizures?: No Have you ever Experienced Delirium Tremens(DT)s?: No Have you ever undergone Alcohol Rehabilitation Treatment (i.e, inpt ot outpatient treatment programs)?: No Have you ever Experienced Blackouts?: No Have you ever Combined Alcohol with other Downers within the last 90 days?: No Have you ever Combined Alcohol with any other Substance of Abuse during the last 90 days?: No Positive Blood Alcohol level on Presentation? [PCS.BAL]: Unable to Obtain Evidence of Increased Autonomic Activity (i.e. HR>120, tremor, sweating, agitation, nausea)?: No Result: 0
[2023-09-21] MEDS: Normal Saline 1,000 ML 150 ML IV (11:29)
[2023-09-21] MEDS: Furosemide 40 MG/4 ML VIAL IVP (11:29)
[2023-09-21 11:34] LABS: Lactate 2.7 mmol/L (0.6-1.4)
[2023-09-21 11:56] LABS: NT-proBNP 2465 pg/mL (<300); Troponin I < 50 ng/L (< or =60)
[2023-09-21 12:03] LABS: ALT 37 U/L (14-59); AST 73 U/L (15-37); Albumin 2.1 g/dL (3.4-5.0); Alkaline Phosphatase 130 U/L (46-116); Ammonia 29 umol/L (11-32); Anion Gap 12.7 mmol/L (3-11); BUN 3 mg/dL (7-18); Bilirubin, Direct 0.2 mg/dL (0.0-0.2); Bilirubin, Total 0.4 mg/dL (0.2-1.0); CO2 21.3 mmol/L (21.0-32.0); CREATININE 0.4 mg/dL (0.55-1.02); Calcium 7.9 mg/dL (8.5-10.1); Chloride 99 mmol/L (98-107); Estimated GFR 111.83 (mL/min/1.73m2); Glucose 65 mg/dL (74-106); Lipase 23 U/L (16-77); Magnesium 1.3 mg/dL (1.8-2.4); Potassium 3.3 mmol/L (3.5-5.1); Sodium 133 mmol/L (136-145); Total Protein 5.5 g/dL (6.4-8.2)
[2023-09-21 12:37] LABS: Abs Immature Grans 0.02 10^3/uL (0.0-0.06); Absolute Basophil Count 0.07 10^3/uL (0.0-0.2); Absolute Eosinophil Count 0.15 10^3/uL (0.0-0.7); Absolute Lymphocyte Count 1.35 10^3/uL (1.2-3.4); Absolute Monocyte Count 0.28 10^3/uL (0.1-0.8); Absolute Neutrophil Count 5.23 10^3/uL (1.2-6.7); Eosinophils % 2.1 %; HCT 32.3 % (36.0-46.0); HGB 10.8 g/dL (11.2-15.7); Immature Grans % 0.3 %; MCH 36.6 pg (27.0-33.0); MCHC 33.4 % (32.0-36.0); MCV 110 fL (80-95); MPV 10.1 fL (8.0-11.0); Monocytes % 3.9 %; Neutrophils % 73.7 %; Platelet Count 313 10^3/uL (130-400); RBC 2.95 10^6/uL (3.93-5.22); RDW 15.6 % (11.7-14.6); RDW-SD 62.6 fL
[2023-09-21 12:40] LABS: INR 1.1 (0.9-1.1); Prothrombin Time 10.7 sec (9.1-11.1)
[2023-09-21] MEDS: Potassium Chloride 20 MEQ TABCR 40 MEQ PO ×2 (12:41→22:16)
[2023-09-21] MEDS: MAGNESIUM SULFATE 2 GM/50 ML BAG IVINF (12:41)
[2023-09-21 13:15] LABS: Macrocytosis 1+
[2023-09-21 13:15] LABS: Bilirubin Negative (Negative); Blood Negative (Negative); Clarity Clear (Clear); Glucose Negative (Negative); Ketones Negative (Negative); Leukocyte Esterase Small (Negative); Nitrite Negative (Negative); Urobilinogen 0.2 mg/dL (Up to 0.2); pH 6.5 (5-8)
[2023-09-21 13:26] LABS: Bacteria Negative HPF (Negative); C & S Indicated? No; Casts Negative LPF (Negative); Crystals Negative HPF (Negative); Epithelial Cells Rare HPF (Negative); Mucus Negative (Negative); RBC Negative HPF (0-2)
[2023-09-21 13:42] LABS: Procalcitonin 12.7 ng/mL
--- NOTE | 2023-09-21 14:46 | W.PM.HP.N ---
Date of service: 09/21/23 Time of Service: 14:48 Assessment and Plan Assessment and plan (1) Edema of both lower legs: Status: Acute Assessment and plan: continue diuresis The patient reported not completing her oral antibiotics, will complete (2) Congestive heart failure: Status: Chronic Assessment and plan: Echo in AM Magnesium and potassium replacement BMP in AM (3) Ambulatory dysfunction: Status: Acute Assessment and plan: PT consult discussed with Dr. Downey History of Present Illness History of Present Illness Chief Complaint: Lower extremity swelling, leg pain, difficulty ambulating Narrative: This 63 years old female patient with a past medical history with recent hospitalization for lower extremity cellulitis discharged on 09/13 on uncompleted therapy with Zyvox and Augmentin, chronically elevated LFTs without cirrhosis, COPD, daily alcohol ingestion, peripheral vascular disease, recent hip fracture with surgery in May 2023 presented to the ED at [facility] today with complaints of lower extremity swelling, leg pain, and difficulty ambulating. Initially the provider reported that the patient had a blood pressure in the 60s over 30s but later documented blood pressure were normotensive. The emergency room workup showed elevated BNP at 2465, UA showed small amount of leuk esterase without fever or leukocytosis, magnesium was 1.3 and potassium was 3.3. In the ED the patient received IV Lasix and IV fluids. The hospitalist was called and the patient will be admitted for observation on the medical surgical floor for evaluation and management of lower extremity swelling, elevated BNP, hypomagnesemia and hypokalemia as well as ambulatory dysfunction. The patient reported noticing increased leg swelling this morning causing her to have pain limiting her capacity to ambulate. The patient reported the patient denied dizziness, change in vision, cough, shortness of breath, congestion, chest pain, nausea,vomiting, diarrhea or dysuria. Review of Systems All systems reviewed & are unremarkable except as noted in HPI and below PFSH All Active Problems (Updated 09/21/23 @ 18:04 by Angela Gaming APRN) Ambulatory dysfunction (Acute) Edema of both lower legs (Acute) Congestive heart failure (Chronic) COPD exacerbation (Acute) Cellulitis (Acute) Severe sepsis (Acute) Prolonged QT interval (Acute) Respiratory failure (Acute) Leg pain (Acute) Sepsis (Acute) Shock (Acute) Hypomagnesemia (Acute) Hypokalemia (Acute) Difficulty walking (Acute) PVD (peripheral vascular disease) (Chronic) Atherosclerosis of aorta (Acute) Leg swelling (Acute) Acute hypokalemia (Acute) Hypoglycemia (Acute) Alcoholic ketoacidosis (Acute) Laceration of scalp (Acute) Fall (Acute) Chronic left hip pain (Acute) Contusion of hip (Acute) Closed intertrochanteric fracture of left hip (Acute) s/p IMN fixation (05/18/23) Smoker (Acute) Closed fracture of left hip (Acute) Fall (Acute) Alcohol intoxication (Acute) Anxiety (Chronic) Cavitary lesion of lung (Acute) H/O ETOH abuse (Acute) Tobacco use disorder (Acute 01/28/14) Pleural effusion (Acute) Hypomagnesemia (Acute) Fluid overload (Acute) Chest pain due to GERD (Acute) Chest wall muscle strain (Acute) Hypokalemia (Acute) COPD exacerbation (Acute) Emphysema lung (Acute) Nicotine dependence, cigarettes, uncomplicated (Acute) Atherosclerosis (Acute) Gastric wall thickening (Acute) Stenosis of right internal carotid artery (Acute) Mass of upper lobe of right lung (Acute) Alcohol abuse (Chronic) Dehydration (Acute) Diarrhea (Acute) Hypomagnesemia (Chronic) B12 deficiency (Acute) Ascites (Acute) Chronic liver disease (Chronic) Weight loss, non-intentional (Acute) Macrocytic anemia (Acute) Early satiety (Acute) Folate deficiency (Acute) Hypomagnesemia (Acute) Hypokalemia (Acute) Leg pain (Acute) Cellulitis (Acute) Bilateral leg ulcer (Acute) Medical History Pulmonary nodule COPD (chronic obstructive pulmonary disease) Hypomagnesemia Cachexia Hepatic fibrosis Ulcer of lower extremity Hair loss Vitamin D deficiency Chest pain Gastroesophageal reflux disease Hx pulmonary embolism COPD (chronic obstructive pulmonary disease) Chronic vomiting Malnutrition Frequent falls Bilateral leg pain Pancreatitis Diastolic dysfunction Folate deficiency anemia Ascites Bilateral lower extremity edema Unintentional weight loss Alcohol abuse Tobacco dependence syndrome Tobacco abuse Surgical History punch biopsy, skin of ankle, right lateral (11/24/16) negative for malignancy, sparse inflammation and reactive blood vessels foot surgery (~2000) Ligation of fallopian tube (~1999) ENT/Nasal surgery (~2007) Family History Father Lung disease Cancer Lung Social History Smoking/Tobacco Use Status: Current every day Tobacco Type: cigarettes Tobacco: How many years used: 45 Quit status: considering quitting Second Hand Exposure: Yes Smoking risk assessment performed?: Yes Alcohol Intake: current Alcohol Intake frequency: 3 or more drinks per day Alcohol type: wine and hard liquor Counseling given: Yes Counseling provided: provider counseling Drug use: Rarely Substance use type: marijuana Details: daily drinker, presents to [facility] under the influence of ETOH, states I didn't have much, 3 or 4 lemon drop martinis and a couple, maybe three or four hot toddies Housing: apartment Current gender identity: female Do you feel safe at home: Yes Do you feel safe in your relationship?: Yes Additional Social history: Lives alone in studio in [facility], 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 [place], sisters in area. History History Para 0 Hx # Term Pregnancies Multiple births Hx # Pregnancies Ectopic pregnancies AB induced Hx Number of Living Children AB spontaneous Meds Allergies and Home Medications Allergies Allergy/AdvReac Type Severity Reaction Status Date / Time bacitracin Allergy Mild localized Verified 09/21/23 10:56 [From Neosporin redness ([id number])] neomycin Allergy Mild localized Verified 09/21/23 10:56 [From Neosporin redness ([id number])] polymyxin B Allergy Mild localized Verified 09/21/23 10:56 [From Neosporin redness ([id number])] Home Medications Medication Instructions Recorded Confirmed Type multivitamin (Multiple Vitamins 1 tab PO DAILY #30 tabs 08/13/20 09/21/23 Rx tablet) albuterol sulfate 90 mcg/actuation 2 puff inhalation Q6H PRN 01/18/22 09/21/23 Rx aerosol inhaler shortness of breath or wheezing #8.5 grams magnesium 250 mg tablet 250 mg PO DAILY #20 tabs 11/09/22 09/21/23 Rx thiamine HCl (vitamin B1) 250 mg 250 mg PO DAILY 04/19/23 09/21/23 History tablet tiotropium 2.5 mcg-olodaterol 2.5 2 puff inhalation Q24H #4 grams 05/04/23 09/21/23 Rx mcg/actuation mist for inhalation (Stiolto Respimat) ipratropium 0.5 mg-albuterol 3 mg 3 ml inhalation Q4H PRN wheezing 05/10/23 09/21/23 Rx (2.5 mg base)/3 mL nebulization #540 mL soln ibuprofen 600 mg tablet 600 mg PO TID PRN #30 tabs 05/20/23 09/21/23 Rx gabapentin 300 mg capsule 300 mg PO TID 06/06/23 09/21/23 History omeprazole 40 mg capsule,delayed 40 mg PO DAILY 06/12/23 09/21/23 History release loperamide 1 mg/7.5 mL oral liquid 2 mg (15 mL) PO Q1-4H PRN #120 mL 08/02/23 09/21/23 Rx (Imodium A-D) amoxicillin 875 mg-potassium 1 tab PO BID #14 tabs 09/14/23 09/21/23 Rx clavulanate 125 mg tablet linezolid 600 mg tablet 600 mg PO Q12H 10 days #20 tabs 09/14/23 09/21/23 Rx Exam Narrative Exam Narrative: Constitutional Neuro:alert and oriented to self, person, place and situation but off by 1-2 days . No neurological focal deficit, Chest:Chest is symmetrical and normal appearance Resp: Normal respiratory pattern, speaks in full sentences, unlabored breathing, clear lung bilaterally Cardio: regular rhythm, S1, S2, no murmur, bilateral radial and dorsalis pedis pulses are positive, palpable 4+ pitting edema to LE's w/o skin lesion, LLE cap refill> 3 sec. GI: Abdomen is not distended, soft and non tender, bowel sounds are present : Negative Costovertebral angle tenderness, no bladder distension Back/spine/Pelvis: No back tenderness, normal alignment Integumentary: No skin lesions or rash Extremities: strength 5/5 to bilateral lower and upper extremities, Psych: RASS 0, congruent mood and normal affect. Results Labs 09/21/23 12:15 09/21/23 11:15 Labs: Laboratory Results - last 24 hr 09/21/23 09/21/23 09/21/23 11:15 12:15 12:18 WBC 7.10 RBC 2.95 L Hgb 10.8 L Hct 32.3 L MCV 110 H MCH 36.6 H MCHC 33.4 RDW 15.6 H Plt Count 313 MPV 10.1 Immature Gran % 0.3 Neutrophils % 73.7 Lymphocytes % 19.0 Monocytes % 3.9 Eosinophils % 2.1 Basophils % 1.0 Nucleated RBC % 0.0 Absolute Neutrophils 5.23 Absolute Lymphocytes 1.35 Absolute Monocytes 0.28 Absolute Eosinophils 0.15 Absolute Basophils 0.07 Macrocytosis 1+ PT 10.7 INR 1.1 VBG Lactate 2.7 H* Sodium 133 L Potassium 3.3 L Chloride 99 Carbon Dioxide 21.3 Anion Gap 12.7 H BUN 3 L Creatinine 0.4 L Est GFR (CKD-EPI 2020) 111.83 Glucose 65 L Calcium 7.9 L Magnesium 1.3 L Total Bilirubin 0.4 Conjugated Bilirubin 0.2 AST 73 H ALT 37 Alkaline Phosphatase 130 H Ammonia 29 Troponin I < 50 NT-Pro-B Natriuret Pep 2465 H Total Protein 5.5 L Albumin 2.1 L Lipase 23 Procalcitonin 12.7 Urine Color Straw Urine Clarity Clear Urine pH 6.5 Ur Specific [place] 1.010 Urine Protein Negative Urine Ketones Negative Urine Blood Negative Urine Nitrite Negative Urine Bilirubin Negative Urine Urobilinogen 0.2 Ur Leukocyte Esterase Small H Urine RBC Negative Urine WBC 3-5 Ur Epithelial Cells Rare Urine Crystals Negative Urine Bacteria Negative Urine Casts Negative Urine Mucus Negative Ur Culture Indicated? No Urine Glucose Negative Last Vital Signs Temp 36.9 C 09/21/23 10:49 Pulse 115 H 09/21/23 14:28 Resp 22 09/21/23 14:28 BP 164/95 H 09/21/23 14:28 Pulse Ox 99 09/21/23 13:37 PAWSS Have you Been Recently Intoxicated or Drunk Within the Last 30 days?: No Have you Ever Experienced Previous Episodes of Alcohol Withdrawal?: No Have you ever Experienced Withdrawal Seizures?: No Have you ever Experienced Delirium Tremens(DT)s?: No Have you ever undergone Alcohol Rehabilitation Treatment (i.e, inpt ot outpatient treatment programs)?: No Have you ever Experienced Blackouts?: No Have you ever Combined Alcohol with other Downers within the last 90 days?: No Have you ever Combined Alcohol with any other Substance of Abuse during the last 90 days?: No Positive Blood Alcohol level on Presentation? [PCS.BAL]: Unable to Obtain Evidence of Increased Autonomic Activity (i.e. HR>120, tremor, sweating, agitation, nausea)?: No Result: 0 Time Spent Time spent with Patient: >75 minutes Time was spent: preparing to see the patient(eg.review tests), obtaining and/or reviewing separately otained hiistory, ordering medications,tests, procedures, referring, communicating with other health medication care manager, indepentently interpreting results, counseling the patient and care coordination
[2023-09-21] MEDS: Nicotine 2 MG LOZG SUC ×2 (15:22→22:23)
--- NOTE | 2023-09-21 16:45 | PHA.REVIEW2 ---
Pharmacy Admission Review Admission Clinical Review Admission Pharmacy Review: bacitracin [From Neosporin ([id number])] Allergy (Mild, Verified 09/21/23 10:56) localized redness neomycin [From Neosporin ([id number])] Allergy (Mild, Verified 09/21/23 10:56) localized redness polymyxin B [From Neosporin ([id number])] Allergy (Mild, Verified 09/21/23 10:56) localized redness Resuscitation Status Full Code Height 5 ft 8 in Weight 54.431 kg Pharmacy Admission Review Renal Dosing Renal Dosing: BUN 3 mg/dL (7-18) L 09/21/23 11:15 Creatinine 0.4 mg/dL (0.55-1.02) L 09/21/23 11:15 Medications needing adjustments: Reviewed (CrCl 50.12 mL/min) List of meds needing interventions: Current medications are okay Anticoagulation Anticoagulation: Hgb 10.8 g/dL (11.2-15.7) L 09/21/23 12:15 Hct 32.3 % (36.0-46.0) L 09/21/23 12:15 Plt Count 313 10^3/uL (130-400) 09/21/23 12:15 INR 1.1 (0.9-1.1) 09/21/23 12:15 Creatinine 0.4 mg/dL (0.55-1.02) L 09/21/23 11:15 DVT Prophylaxis: Reviewed Medications: Enoxaparin (40mg daily) Relevant Labs Relevant Labs: Sodium 133 mmol/L (136-145) L 09/21/23 11:15 Potassium 3.3 mmol/L (3.5-5.1) L 09/21/23 11:15 Chloride 99 mmol/L (98-107) 09/21/23 11:15 Magnesium 1.3 mg/dL (1.8-2.4) L 09/21/23 11:15 Electrolytes, C-Reactive P, ESR: Reviewed (Na 133, K 3.3, Mg 1.3, Hgb 10.8, glucose 65) Cardiac Review Cardiac Review: Troponin I < 50 ng/L (< or =60) 09/21/23 11:15 NT-Pro-B Natriuret Pep 2465 pg/mL (<300) H 09/21/23 11:15 BP, HR, EF%: Reviewed (BP WNL, HR 103) QTc Review QTc: Reviewed (537 from 09/13/23) IV to PO Switch IV Medications: Reviewed Home Meds Home Med List reviewed: Reviewed Relevent Home Meds Not ordered & why?: amoxicillin (therapy completed) and linezolid (therapy completed) Current Meds Current Medication Order Review: Reviewed Pharmacy Antibiotic Review Relevant Labs: Relevant Labs 09/21/23 11:15 Procalcitonin 12.7
[2023-09-21] MEDS: Acetaminophen 500 MG TAB 1000 MG PO (17:13)
[2023-09-21] MEDS: Linezolid 600 MG TAB PO (18:29)
[2023-09-21] MEDS: Enoxaparin 40 MG/0.4 ML SYR SC (18:29)
[2023-09-21] MEDS: Ibuprofen 600 MG TAB PO (22:03)
[2023-09-21] MEDS: Amoxicillin 875/Clav. 125 TAB PO (22:07)
[2023-09-21] MEDS: Gabapentin 300 MG CAP PO (22:08)
[2023-09-21] MEDS: Normal Saline Flush 10 ML SYR IVP (22:09)
[2023-09-22] MEDS: Acetaminophen 500 MG TAB 1000 MG PO ×2 (00:42→12:33)
[2023-09-22] MEDS: Mylanta Suspension 30 ML CUP PO (00:51)
[2023-09-22 05:37] VITALS: BP 146/86; PULSE 104; RESP 16; TEMP 36.2; O2SAT 97
[2023-09-22] MEDS: Ibuprofen 600 MG TAB PO (05:43)
[2023-09-22] MEDS: Linezolid 600 MG TAB PO (05:43)
[2023-09-22] MEDS: Nicotine 2 MG LOZG SUC ×2 (05:49→12:33)
[2023-09-22 07:02] LABS: Anion Gap 11.1 mmol/L (3-11); BUN 5 mg/dL (7-18); CO2 24.9 mmol/L (21.0-32.0); CREATININE 0.8 mg/dL (0.55-1.02); Calcium 8.5 mg/dL (8.5-10.1); Chloride 100 mmol/L (98-107); Estimated GFR 83.26 (mL/min/1.73m2); Glucose 103 mg/dL (74-106); Magnesium 1.5 mg/dL (1.8-2.4); Potassium 3.7 mmol/L (3.5-5.1); Sodium 136 mmol/L (136-145)
[2023-09-22 07:06] LABS: Abs Immature Grans 0.02 10^3/uL (0.0-0.06); Absolute Basophil Count 0.05 10^3/uL (0.0-0.2); Absolute Eosinophil Count 0.13 10^3/uL (0.0-0.7); Absolute Monocyte Count 0.63 10^3/uL (0.1-0.8); Absolute Neutrophil Count 4.79 10^3/uL (1.2-6.7); Basophils % 0.7 %; Eosinophils % 1.8 %; HGB 11.9 g/dL (11.2-15.7); Immature Grans % 0.3 %; Lymphocytes % 22.2 %; MCH 36.4 pg (27.0-33.0); MPV 10.7 fL (8.0-11.0); Monocytes % 8.7 %; Neutrophils % 66.3 %; Platelet Count 292 10^3/uL (130-400); RBC 3.27 10^6/uL (3.93-5.22); RDW 15.8 % (11.7-14.6); RDW-SD 62.2 fL; WBC 7.22 10^3/uL (4.4-10.8)
[2023-09-22 07:10] LABS: MCV 107 fL (80-95)
[2023-09-22] MEDS: Gabapentin 300 MG CAP PO ×2 (08:16→14:23)
[2023-09-22] MEDS: Magnesium Oxide 400 MG TAB 200 MG PO (08:16)
[2023-09-22] MEDS: Omeprazole 20 MG CAPCR 40 MG PO (08:16)
[2023-09-22] MEDS: Thiamine 100 MG TAB 250 MG PO (08:17)
[2023-09-22] MEDS: Amoxicillin 875/Clav. 125 TAB PO (08:17)
[2023-09-22] MEDS: Potassium Chloride 20 MEQ TABCR 40 MEQ PO ×2 (08:17→14:23)
[2023-09-22] MEDS: Multivitamin TAB 1 TAB PO (08:18)
[2023-09-22] MEDS: Normal Saline Flush 10 ML SYR IVP (08:19)
[2023-09-22 08:36] VITALS: BP 122/80; PULSE 96; RESP 16; TEMP 37; O2SAT 99
--- NOTE | 2023-09-22 09:29 | DI.US_ITS ---
APPROVED REPORT EXAM: Comprehensive 2D, Doppler, and color-flow Echocardiogram Patient Location: In-Patient Room/Bed: [address] [employer] Developer: [place] RDCS (AE) Indications: Elevated BNP, Low blood pressure Other Information Study Quality: Adequate. Technically limited study due to exam done supine. Conclusion Mild concentric left ventricular hypertrophy. Ejection fraction biplane is 55%. Visually it is 60 t o 65% with normal wall motion Mildly dilated right ventricle. Normal right ventricular systolic function Left atrium is severely dilated. Right atrium is mildly dilated Aortic valve is mildly sclerotic and trileaflet without stenosis or regurgitation Mitral annular calcification, thickened mitral leaflets. There is moderate to severe eccentric soto l regurgitation. There is moderate mitral stenosis Moderate tricuspid regurgitation. Estimated right ventricular systolic pressure is 41 mmHg Wall motion Left Ventricle The left ventricle is normal size. The left ventricular systolic function is normal. The left ventric ular ejection fraction is within the normal range. Mild concentric left ventricular hypertrophy. Ther e is normal LV segmental wall motion. There is no ventricular septal defect visualized. LVEF is 55%. Visually 60 to 65% Right Ventricle Right ventricle is mildly dilated. The right ventricular systolic function is normal. Atria Left atrium is severely dilated. Right atrium is mildly dilated. The interatrial septum is intact wit h no evidence for an atrial septal defect. Aortic Valve The Aortic valve is mildly sclerotic. Aortic valve is trileaflet. There is no aortic valvular stenosi s. No aortic regurgitation is present. Mitral Valve Moderate mitral annular calcification. The mitral valve displays decreased opening. Moderate mitral stenosis. Moderate to severe mitral regurgitation Mitral regurgitation jet is eccentrically directed. Tricuspid Valve The tricuspid valve is normal in structure. There is no tricuspid valve stenosis. Moderate tricuspid regurgitation. The RVSP is 40.9 mmHg. Pulmonic Valve The pulmonary valve is normal in structure. There is no pulmonic valvular stenosis. Trace pulmonic re gurgitation. Great Vessels The aortic root is normal in size. The ascending aorta is borderline dilated. Aortic arch is not well visualized. IVC is normal in size and collapses >50% with inspiration. Pericardium There is no pericardial effusion. 2D Dimensions IVSD d PLAX 1.10 cm F: 0.6-1.0 Ao Root d 2.83 cm F: 2.7 - 3.3 LVPW d PLAX 1.11 cm F: 0.6 - 1.0 Ao Asc Diam d 3.33 cm F: 2.3 - 3.1 LVID d PLAX 3.60 cm F: 3.8 - 5.2 LVDs 2.61 cm F: 2.2 - 3.5 LV EF Teichholz 54.3 % FS 27.43 % LV EDV (Teich) 54.4 mL LV ESV (Teich) 24.9 mL M-Mode TAPSE 2.37 cm (M/F) >1.7 Auto EF LV EDV A4C 56.8 mL LV EDV A2C 79.3 mL LV EDV BP 67.2 mL LV ESV A4C 25.4 mL LV ESV A2C 36.0 mL LV ESV BP 30.7 mL LVEF(%) A4C 55.2 % LVEF(%) A2C 54.5 % LVEF(%) BP 54.3 % LV SV A4C 31.4 ml LV SV A2C 43.3 ml LV SV BP 36.5 ml LV CO A4C 2.7 L/min LV CO A2C 3.8 L/min LV CO BP 3.3 L/min HR A4C 87.38 BPM HR A2C 88.02 BPM LV EDV Index (BP) LA Volume LA Length A4C 6.0 cm LA Length A2C 6.0 cm LA Area A4C s 25.77 cm2 LA Area A2C s 27.35 cm2 LA Vol A4C A-L 94.19 mL LA Vol A2C A-L 106.13 mL LA Vol Biplane A-L 100.0 mL LA Vol/BSA A4C A-L LA Vol/BSA A2C A-L LA Vol/BSA BP A-L 60.6 mL/m2 LA Vol A4C MOD 88.1 mL LA Vol A2C MOD 99.0 mL LA Vol BP MOD 93.3 mL RA Volume RA Area A4C 15.6 cm2 RA ESV A4C (A-L) 37.9mL RA Vol/BSA A4C A-L RA Length A4C 5.5 cm RA ESV A4C (MOD) 35.3mL LV Diastology MV E' lateral 0.048 (>0.1 m/s) MV E Vmax 1.98 (0.4-1.3 m/s) MV E/E' LAT 41.57 (<14) MV A Vmax 2.10 (0.4-1.3 m/s) E/A Ratio 0.9 Aortic Valve AoV Vmax 1.58 m/s LVOT Vmax 0.99 m/s AoV Peak Grad 9.9 mmHg LVOT Peak Grad 3.9 mmHg AoV Area (Vmax) 1.96 cm2 LVOT VTI 0.203 m AoV VTI 0.321 m LVOT Mean Grad 2.2 mmHg AoV Mean Balwinder. 1.13 m/s LVOT SV 63.48 mL AoV Mean Grad 5.6 mmHg LVOT Diam s 1.95 cm AoV Area (VTI) 1.97 cm2 Velocity Ratio 0.63 Mitral Valve MV DT 222 (160-240 msec) MV Vmax TIPS 2.31 m/s MV Mean Grad 12.2 (<2mmHg) MV PHT 75 msec MV Area PHT 2.92 cm2 MV VTI 0.441 m Pulmonary Valve PV Vmax 0.93 (0.5-1.5 m/s) RVOT Vmax 0.65 m/s PV Peak Grad 3.4 mmHg RVOT Peak Gr. 1.7 mmHg PV Mean Balwinder 0.65 m/s RVOT VTI 0.114 m PV Mean Grad 1.9 mmHg RVOT Mean Gr. 1.0 mmHg Tricuspid Valve RA Pressure 3.00 mmHg TR Vmax 3.08 m/s TR Peak Grad 37.8 mmHg RVSP (TR) 40.9 mmHg
--- NOTE | 2023-09-22 09:46 | PDOC.CMIN ---
Date of service: 09/22/23 Time of Service: 09:47 Care Management Initial Assmt Initial Assessment Reason for Hospitalization: ambulatory dysfunction Functional Status/Living Situation Patient Presentation: Fannie was sitting up in a chair, fully dressed, when CM met with her. She informed CM that she is being discharged home and will need transportation. She has her wheelchair with her and requested RCT w/c van. PT has recommended home health PT and the provider has suggested Fannie also have nursing for medication management. CM discussed this with Fannie who is agreeable to both. Town of Residence: [facility] Resides with: Alone Significant Other/Family: Local Natural Supports: Sister Annie Champion Employment Status: Retired (worked for [employer]) Instrumental Activities of Daily Living (ADLs): Independent and Requires support with Transportation Medications Medication Management: No Issues/Barriers identified Physical Functioning/Mobility Assistive Device: wheelchair, walker, RCT for transportation Advance Directives Advance Directives: Do you have an Advance Directive: N 08/15/23 14:16 AD On File at [facility]: N 08/15/23 14:16 Date Asked 09/21/23 09/21/23 10:49 AD Date Reviewed COLST On File at [facility] Yes 08/15/23 14:16 COLST Date Scanned 01/03/21 08/15/23 14:16 Code Status Resuscitation Status Full Code Portal Pt does not currently have a portal and education provided: Yes Insurance Coverage/Financial Issues Insurance: BC/BS Federal ACO Member: No Care Team Visit Care Team Role Provider Type MARIANO KEARNEY NP Primary Care Provider NON-[facility] STAFF PHYSICIAN InPatient Margarito Henning Other Providers OTHER AMIE Orellana Emergency Provider [employer] Nikunj Downey Admit Provider [facility] STAFF PHYSICIAN Attending Provider Discharge Potential Discharge Needs: PT Evaluation and PCP F/U Appt Patient/Family Education Needs: Review discharge instructions, discuss Ask Me Three PFSH All Active Problems (Updated 09/21/23 @ 18:04 by Angela Gaming APRN) Ambulatory dysfunction (Acute) Edema of both lower legs (Acute) Congestive heart failure (Chronic) COPD exacerbation (Acute) Cellulitis (Acute) Severe sepsis (Acute) Prolonged QT interval (Acute) Respiratory failure (Acute) Leg pain (Acute) Sepsis (Acute) Shock (Acute) Hypomagnesemia (Acute) Hypokalemia (Acute) Difficulty walking (Acute) PVD (peripheral vascular disease) (Chronic) Atherosclerosis of aorta (Acute) Leg swelling (Acute) Acute hypokalemia (Acute) Hypoglycemia (Acute) Alcoholic ketoacidosis (Acute) Laceration of scalp (Acute) Fall (Acute) Chronic left hip pain (Acute) Contusion of hip (Acute) Closed intertrochanteric fracture of left hip (Acute) s/p IMN fixation (05/18/23) Smoker (Acute) Closed fracture of left hip (Acute) Fall (Acute) Alcohol intoxication (Acute) Anxiety (Chronic) Cavitary lesion of lung (Acute) H/O ETOH abuse (Acute) Tobacco use disorder (Acute 01/28/14) Pleural effusion (Acute) Hypomagnesemia (Acute) Fluid overload (Acute) Chest pain due to GERD (Acute) Chest wall muscle strain (Acute) Hypokalemia (Acute) COPD exacerbation (Acute) Emphysema lung (Acute) Nicotine dependence, cigarettes, uncomplicated (Acute) Atherosclerosis (Acute) Gastric wall thickening (Acute) Stenosis of right internal carotid artery (Acute) Mass of upper lobe of right lung (Acute) Alcohol abuse (Chronic) Dehydration (Acute) Diarrhea (Acute) Hypomagnesemia (Chronic) B12 deficiency (Acute) Ascites (Acute) Chronic liver disease (Chronic) Weight loss, non-intentional (Acute) Macrocytic anemia (Acute) Early satiety (Acute) Folate deficiency (Acute) Hypomagnesemia (Acute) Hypokalemia (Acute) Leg pain (Acute) Cellulitis (Acute) Bilateral leg ulcer (Acute) Medical History Pulmonary nodule COPD (chronic obstructive pulmonary disease) Hypomagnesemia Cachexia Hepatic fibrosis Ulcer of lower extremity Hair loss Vitamin D deficiency Chest pain Gastroesophageal reflux disease Hx pulmonary embolism COPD (chronic obstructive pulmonary disease) Chronic vomiting Malnutrition Frequent falls Bilateral leg pain Pancreatitis Diastolic dysfunction Folate deficiency anemia Ascites Bilateral lower extremity edema Unintentional weight loss Alcohol abuse Tobacco dependence syndrome Tobacco abuse Surgical History punch biopsy, skin of ankle, right lateral (11/24/16) negative for malignancy, sparse inflammation and reactive blood vessels foot surgery (~2000) Ligation of fallopian tube (~1999) ENT/Nasal surgery (~2007) Family History Father Lung disease Cancer Lung Social History Smoking/Tobacco Use Status: Current every day Tobacco Type: cigarettes Tobacco: How many years used: 45 Quit status: considering quitting Second Hand Exposure: Yes Smoking risk assessment performed?: Yes Alcohol Intake: current Alcohol Intake frequency: 3 or more drinks per day Alcohol type: wine and hard liquor Counseling given: Yes Counseling provided: provider counseling Drug use: Rarely Substance use type: marijuana Details: daily drinker, presents to [facility] under the influence of ETOH, states I didn't have much, 3 or 4 lemon drop martinis and a couple, maybe three or four hot toddies Housing: apartment Current gender identity: female Do you feel safe at home: Yes Do you feel safe in your relationship?: Yes Additional Social history: Lives alone in studio in [facility], 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 Grew up in [facility], sisters in area. History History Para 0 Hx # Term Pregnancies Multiple births Hx # Pregnancies Ectopic pregnancies AB induced Hx Number of Living Children AB spontaneous Readmission Within the Past 30 Days Yes or No: Yes Date of First Admission Date of 1st Admission: 09/13/23 Date of this Admission Date of Admission: 09/21/23 This admission was: Through ED I. Interview patient and/or Family Difficulty reaching your doctor or getting an office appt?: No Have you had trouble purchasing/ or taking medication?: No Describe barriers fpr purchasing or taking medication: did not complete course of antibiotics Have you had trouble with getting meals at home?: No Did you feel ready for discharge when you left the last time: Yes Reason there were no orders at discharge: declined HH Did you call your physician beore you came to the ED?: No Assessment for Readmission Summary of readmission circumstances, based upon interviews: Fannie was discharged after a brief admission (<24 hours) for treatment of sepsis and cellulitis. SDOH(Care Management) Screening Will the Patient Participate in the Screening?: Yes Do you worry about having a steady place to live?: no Problems where you live: no known problems In the past 12 months, have you had to go without electric, gas, oil or water in your home?: no Have you or anyone in your house had to go without enough food to eat?: no Has lack of transportation kept you from medical appointments or from doing things needed for daily living?: no Has anyone in your support network made you feel unsafe for any reason?: no Social Determinants of Health Comments(SDOH Details): Subsidized apartment in [facility] Anticipated HH Services Anticipated HH Services at Discharge [facility] PT and RN. Anticipated Date of Discharge: 09/22/23. Following Provider: Mariano Kearney.
--- NOTE | 2023-09-22 10:29 | PT.INIE ---
PT Notes Visit Reasons: Leg/feet problem Physical Therapy Inpatient Initial Evaluation Date: 09/22/2023 Referring Doctor: Angela Gaming NP PT Orders: PT CONSULT: Safety consult for D/C Precautions: Fall. Standard. Activity as tolerated. Patient Profile/Admitting Diagnosis: Fannie is a 63-year-old female who presented to the ED on 09/21/2023 due to worsening leg edema and redness, leg pain, difficulty with walking, and recent EtOH intake. Patient is admitted for management of cellulitis to the legs, CHF, and ambulatory dysfunction. PMHX: All Active Problems (Updated 09/21/23 @ 18:04 by Angela Gaming APRN) Ambulatory dysfunction (Acute) Edema of both lower legs (Acute) Congestive heart failure (Chronic) COPD exacerbation (Acute) Cellulitis (Acute) Severe sepsis (Acute) Prolonged QT interval (Acute) Respiratory failure (Acute) Leg pain (Acute) Sepsis (Acute) Shock (Acute) Hypomagnesemia (Acute) Hypokalemia (Acute) Difficulty walking (Acute) PVD (peripheral vascular disease) (Chronic) Atherosclerosis of aorta (Acute) Leg swelling (Acute) Acute hypokalemia (Acute) Hypoglycemia (Acute) Alcoholic ketoacidosis (Acute) Laceration of scalp (Acute) Fall (Acute) Chronic left hip pain (Acute) Contusion of hip (Acute) Closed intertrochanteric fracture of left hip (Acute) s/p IMN fixation (05/18/23) Smoker (Acute) Closed fracture of left hip (Acute) Fall (Acute) Alcohol intoxication (Acute) Anxiety (Chronic) Cavitary lesion of lung (Acute) H/O ETOH abuse (Acute) Tobacco use disorder (Acute 01/28/14) Pleural effusion (Acute) Hypomagnesemia (Acute) Fluid overload (Acute) Chest pain due to GERD (Acute) Chest wall muscle strain (Acute) Hypokalemia (Acute) COPD exacerbation (Acute) Emphysema lung (Acute) Nicotine dependence, cigarettes, uncomplicated (Acute) Atherosclerosis (Acute) Gastric wall thickening (Acute) Stenosis of right internal carotid artery (Acute) Mass of upper lobe of right lung (Acute) Alcohol abuse (Chronic) Dehydration (Acute) Diarrhea (Acute) Hypomagnesemia (Chronic) B12 deficiency (Acute) Ascites (Acute) Chronic liver disease (Chronic) Weight loss, non-intentional (Acute) Macrocytic anemia (Acute) Early satiety (Acute) Folate deficiency (Acute) Hypomagnesemia (Acute) Hypokalemia (Acute) Leg pain (Acute) Cellulitis (Acute) Bilateral leg ulcer (Acute) Medical History Pulmonary nodule COPD (chronic obstructive pulmonary disease) Hypomagnesemia Cachexia Hepatic fibrosis Ulcer of lower extremity Hair loss Vitamin D deficiency Chest pain Gastroesophageal reflux disease Hx pulmonary embolism COPD (chronic obstructive pulmonary disease) Chronic vomiting Malnutrition Frequent falls Bilateral leg pain Pancreatitis Diastolic dysfunction Folate deficiency anemia Ascites Bilateral lower extremity edema Unintentional weight loss Alcohol abuse Tobacco dependence syndrome Tobacco abuse Surgical History punch biopsy, skin of ankle, right lateral (11/24/16) negative for malignancy, sparse inflammation and reactive blood vessels foot surgery (~2000) Ligation of fallopian tube (~1999) ENT/Nasal surgery (~2007) Bilateral leg ulcer (Acute) Social History/Home Situation: Lives alone in an apartment building with a ramp to enter. No longer drives. For the past copule of moths have been highly depednent on wheelchair for all mobility due to weakness in B LE. Sister helps with grocery shopping. Oftentimes ruses RCT for some of her errands. Equipment Owned/DME: FWW, SPC, wheelchair Subjective: Reports 7/10 pain in the left hip with movement and weight bearing. indicated that yesterday she was having 15/10 pain level. Agreeable to get up and sit on chair for supper. Objective: General Observation: Resting in bed. IV access through left UE. Erythema to B legs and feet appears to have receded from yesterday's diana by MD. Mental Status: Alert and oriented as to person, place, time, and purpose. Able to pay attention, focus, and respond appropriately. Pain: As above Vital Signs: Closely monitored by nursing staff ROM: Right Lower Extremity: Hip flexion WFL. Hip abduction WFL. Knee flexion WFL. Ankle dorsiflexion WFL. Ankle plantarflexion WFL. Left Lower Extremity: Hip flexion WFL. Hip abduction WFL. Knee flexion WFL. Ankle dorsiflexion WFL. Ankle plantarflexion WFL. Strength: Right Lower Extremity: Hip flexors 4-/5. Hip abductors 4-/5. Knee flexors 4-/5. Knee extensors 4-/5. Ankle dorsiflexors 4-/5. Ankle plantarflexors 4-/5. Left Lower Extremity: Hip flexors 4-/5. Hip abductors 4-/5. Knee flexors 4-/5. Knee extensors 4-/5. Ankle dorsiflexors 4-/5. Ankle plantarflexors 4-/5. Bed Mobility/Transfers: Moderate cueing provided for use of B hands as needed for support, movement sequence, Ad management, and and posture to reduce fall risk and minimize pain report. Supine to sit contact guard assist Sit to stand contact guard assist Stand to sit contact guard assist Bed to reclining chair contact guard assist Gait: Facilitated safe and correct performance of short distance in room ambulation 75 feet using front-wheeled walker requiring contact guard assist with moderate verbal cueing provided for limb advancement and movement sequence, AD management, hand placement, and posture to reduce fall risk and minimize pain report. Balance: Static Sitting: Good Dynamic Sitting: Fair Static Standing: Fair Dynamic Standing: Fair Special Tests: Mobility Limitations Standardized Measure [facility] AM-PAC 6 clicks Basic Mobility Inpatient Short Form: Raw Score: 18 CMS Score: 47% deficit Informed Consent/Education: Patient was instructed in purpose of PT consult and plan of care. Agreeable to proceed with established PT POC to achieve personal goals. ASSESSMENT: Patient requires assistance of 1 person for all transfers and short distance ambulation to maximize safety and reduce fall risk. Lives alone and needs to be as independent as she is able to be prior to discharge to reduce fall risk. Patient presents with clinical signs and symptoms consistent with current/admitting diagnoses that have resulted to mobility limitations, gait instability, generalized weakness, and overall ADL decline as demonstrated by the following impairment level findings: 1. Decreased strength to B LE major muscle groups 2. Impaired sitting/standing balance 3. Impaired activity tolerance Impairments are contributing to the following functional limitations: 1. Decline in bed mobility skills 2. Decline in transfer skills 3. Difficulty with ambulation without assistive device and physical assistance 4. Increased completion time for mobility ADL performance 5. Increased risk for falls Patient is [place] as a [id number] moderate complexity based on the following: History: 63-year-old female with past medical history as indicated above Examination: Demonstrable impairment in strength, balance, and mobility level with underlying impairments and functional limitations as exhibited above as well as deficit score of 47% utilizing the [facility] Mobility Inpatient Short Form Presentation: Evolving Decision Makin moderate complexity Goals: Goals X1 week 1. Supine-Sit independent 2. Sit-Supine independent 3. Sit-Stand independent 4. Stand-Sit independent with FWW 5. Bed-Chair independent with FWW 6. Chair-Bed independent with FWW 7. Independent gait on level surface with use of FWW for at least 150 feet without report of pain nor dyspnea 8. Good static and dynamic standing balance/tolerance Plan of Care/Treatment Plan: 1-2x/day, 7 days/week x 1 week. Plan of care has been reviewed with the EXCEPTIONAL NEEDS TEACHER providing the service under Physical Therapy direction. Initiate Physical Therapy intervention for pain management as needed, strengthening, bed mobility, transfers, gait, stairs, balance training, and use of assistive device. DISCHARGE RECOMMENDATIONS: [] Home with no services [] [X] Home with services. Patient will benefit from home health PT services in order to progress mobility level using least restrictive assistive ambulatory device, assess home safety, identify additional equipment needs, and establish a functional maintenance program that will increase ability of patient to remain at home. [] Home with outpatient PT [] [] SNF for continued rehabilitation [] [] Jail Care [] [] SNF versus LTC based on ability to participate and progress [] TREATMENT CODE/TIME: 23086 x 28 minutes for 1 unit (10:29-10:57). Thank you for the opportunity to participate in the care of this patient. Montse Saunders PT, DPT, CLT [facility] [place], [place]
--- NOTE | 2023-09-22 11:10 | W.PM.DS.N ---
Date of service: 09/22/23 Time of Service: 14:00 DS: Diagnosis Discharge Diagnosis (1) Edema of both lower legs: Status: Acute (2) Congestive heart failure: Status: Chronic (3) Ambulatory dysfunction: Status: Acute Discharge Plan Disposition Patient Disposition: Home W/Home Health Services Condition: Improving Discharge Details Reason For Visit: Leg/feet problem Admit Date/Time: 09/21/23 14:40 Admit Provider: Nikunj Downey Attending Provider: Nikunj Downey Primary Care Provider: MARIANO KEARNEY L[facility] Hospital Course Hospital Course: This is a 63 years old female patient with a past medical history of chronically elevated LFTs without cirrhosis, COPD, daily alcohol ingestion, peripheral vascular disease, recent hip surgery in May 2023 and recent hospitalization with lower extremity cellulitis discharged on oral antibiotics and reporting not having completed them who presented to the ED at [facility] on 09/21/2023 for evaluation of bilateral lower extremity swelling, leg pain, and difficulty ambulating. Initial systolic blood pressure reported to be in the 60s from the ED provider but later documentation showed normotension. The workup in the emergency room showed elevated BNP at 2465, small amount of leuk esterase in UA without fever or leukocytosis, magnesium of 1.3 and potassium of 3.3.Supplementation initiated in the emergency room. The patient also received IV Lasix and IV fluids in the ED. The patient was admitted for observation under the hospitalist service on the medical surgical floor for evaluation and management of lower extremity swelling, elevated BNP, hypomagnesemia, hypokalemia and ambulatory dysfunction. When seen, the patient mentioned that she had not completed her course of antibiotics given at previous discharge. At the time the patient also mentioned that she would like to be revived if her heart was to stop and will try a short period of intubation if needed. The antibiotics were reordered during the stay and patient educated on completing her course of antibiotic once home. Echocardiogram showed a left ventricular ejection fraction of 55% with normal wall motion but mildly dilated right ventricle with normal right ventricular systolic function. Estimated right ventricular systolic pressure was 41 mmHg. The patient will continue to have short course of oral Lasix at home which for further management per her primary care practitioner. This morning, leg swelling has improved. The patient is in no acute respiratory or cardiovascular distress and is ambulating with physical therapy and walker. Physical therapy recommendations are for home health physical therapy and a walker. The patient will require home health nursing for medicine compliance as well as evaluation of worsening condition. The patient will also benefit of the medical records library professor to help assist in coordinating of care as well as finding increased support in the community. The patient will have a CMP prior to the follow-up with her primary care practitioner. Discussed with Dr. Downey Home Meds and New Rx's Prescriptions: New furosemide 20 mg Tablet 10 mg PO BID@0830,1600 Qty: 20 0RF Continued ipratropium-albuterol 0.5 mg-3 mg(2.5 mg base)/3 mL solution for nebulization 3 ml inhalation Q4H PRN (Reason: wheezing) Qty: 540 8RF albuterol sulfate 90 mcg/actuation HFA aerosol inhaler 2 puff inhalation Q6H PRN (Reason: shortness of breath or wheezing) Qty: 8.5 12RF thiamine HCl (vitamin B1) 250 mg tablet 250 mg PO DAILY gabapentin 300 mg capsule 300 mg PO TID Stiolto Respimat 2.5-2.5 mcg/actuation mist 2 puff inhalation Q24H Qty: 4 12RF loperamide [Imodium A-D] 1 mg/7.5 mL liquid 2 mg PO Q1-4H PRNQty: 120 0RF Rx Instructions: administer after each loose stool until symptoms controlled; do not exceed 16 mg per 24 hrs multivitamin [Multiple Vitamins] Tablet 1 tab PO DAILY Qty: 30 0RF magnesium 250 mg tablet 250 mg PO DAILY Qty: 20 0RF ibuprofen 600 mg tablet 600 mg PO TID PRNQty: 30 0RF omeprazole 40 mg capsule,delayed release(DR/EC) 40 mg PO DAILY amoxicillin-pot clavulanate 875-125 mg tablet 1 tab PO BID Qty: 14 0RF linezolid 600 mg tablet 600 mg PO Q12H 10 Days Qty: 20 0RF Discharge Instructions Stand Alone Forms: Nursing Discharge Form Referrals: MARIANO KEARNEY DIRECTOR MBA [Primary Care Provider] - Activity:: Activity as Tolerated Equipment/Supplies:: Walker Diet:: As Tolerated Discharge Orders Other Ambulatory Orders: Comprehensive Metabolic Panel (Routine) Timeframe: 20230926 Facility: [facility] - Location: Laboratory Outpatient - [place] Ordered By: Angela Gaming Magnesium (Routine) Timeframe: [id number] Facility: [facility] - Location: Laboratory Outpatient - [facility] Ordered By: Angela Gaming DS: Summary Time Spent with Patient providing and/or coordinating discharge services: Greater than 30 minutes Status at Discharge Functional status at discharge: uses cane/walker Overall status at discharge: patient is back to baseline Mental Status: mental status grossly normal Speech and Movement: speech and movement normal Mood: congruent mood Affect: normal affect Quality:SDOH Health Related Social Needs: Health related social needs transpo insecurity Exam Narrative Exam Narrative: Constitutional Neuro:alert and oriented to self, person, place and situation, no focal deficit. Resp: Normal respiratory pattern, speaks in full sentences, unlabored breathing, clear lung bilaterally Cardio: regular rhythm, S1, S2, no murmur, bilateral radial and dorsalis pedis pulses are positive, palpable 1+ pitting edema to LE's w/o skin lesion, GI: Abdomen is not distended, soft and non tender, bowel sounds are present Back/spine/Pelvis: No back tenderness, normal alignment Integumentary: No skin lesions or rash Extremities: strength 5/5 to bilateral lower and upper extremities, Psych: RASS 0, congruent mood and normal affect. Psych Mental Status: mental status grossly normal Speech and Movement: speech and movement normal Mood: congruent mood Affect: normal affect DS: Data Vitals/I&O Vitals and I&O: Vital Signs Temperature 37 C 09/22/23 08:36 Temperature Source Tympanic 09/22/23 08:36 Pulse 96 H 09/22/23 08:36 Pulse Rhythm Regular 09/22/23 08:35 Respiratory Rate 16 09/22/23 08:36 Respiratory Effort Normal 09/22/23 08:35 Respiratory Depth Normal 09/22/23 08:35 Respiratory Pattern Normal 09/22/23 08:35 Blood Pressure 122/80 09/22/23 08:36 Pulse Oximetry 99 09/22/23 08:36 Oxygen Delivery Method Room Air 09/22/23 08:36 Oxygen Flow Rate 0 09/22/23 08:36 Pain Level 0 09/22/23 08:36 Intake & Output 09/21/23 09/21/23 09/22/23 11:59 23:59 11:59 Intake Total 1225 / 1225 270 / 270 Output Total 1900 / 1900 Balance -675 / -675 270 / 270 Weight 54.431 kg 54.431 kg Intake: IV 925 / 925 Oral 300 / 300 250 / 250 Output: Urine 1900 / 1900 Other: Urine Color Yellow Urine Appearance Clear Clear Urine Odor None Comment Nurse put pT on the commode. 1 unknown void with bowel movement Stool Size Large Large Stool Characteristics Soft Liquid Voiding Methods Bedside Commode # Voids 2 Data Completed and Pending Labs on day of discharge: Labs from last 24 hours 09/22/23 09/21/23 09/21/23 06:30 12:18 12:15 WBC 7.22 7.10 RBC 3.27 L 2.95 L Hgb 11.9 10.8 L Hct 35.0 L 32.3 L MCV 107 H 110 H MCH 36.4 H 36.6 H MCHC 34.0 33.4 RDW 15.8 H 15.6 H Plt Count 292 313 MPV 10.7 10.1 Immature Gran % 0.3 0.3 Neutrophils % 66.3 73.7 Lymphocytes % 22.2 19.0 Monocytes % 8.7 3.9 Eosinophils % 1.8 2.1 Basophils % 0.7 1.0 Nucleated RBC % 0.0 0.0 Absolute Neutrophils 4.79 5.23 Absolute Lymphocytes 1.60 1.35 Absolute Monocytes 0.63 0.28 Absolute Eosinophils 0.13 0.15 Absolute Basophils 0.05 0.07 Macrocytosis 1+ PT 10.7 INR 1.1 VBG Lactate Sodium 136 Potassium 3.7 Chloride 100 Carbon Dioxide 24.9 Anion Gap 11.1 H BUN 5 L Creatinine 0.8 Est GFR (CKD-EPI 2020) 83.26 Glucose 103 Calcium 8.5 Magnesium 1.5 L Total Bilirubin Conjugated Bilirubin AST ALT Alkaline Phosphatase Ammonia Troponin I NT-Pro-B Natriuret Pep Total Protein Albumin Lipase Procalcitonin Urine Color Straw Urine Clarity Clear Urine pH 6.5 Ur Specific [place] 1.010 Urine Protein Negative Urine Ketones Negative Urine Blood Negative Urine Nitrite Negative Urine Bilirubin Negative Urine Urobilinogen 0.2 Ur Leukocyte Esterase Small H Urine RBC Negative Urine WBC 3-5 Ur Epithelial Cells Rare Urine Crystals Negative Urine Bacteria Negative Urine Casts Negative Urine Mucus Negative Ur Culture Indicated? No Urine Glucose Negative 09/21/23 11:15 WBC RBC Hgb Hct MCV MCH MCHC RDW Plt Count MPV Immature Gran % Neutrophils % Lymphocytes % Monocytes % Eosinophils % Basophils % Nucleated RBC % Absolute Neutrophils Absolute Lymphocytes Absolute Monocytes Absolute Eosinophils Absolute Basophils Macrocytosis PT INR VBG Lactate 2.7 H* Sodium 133 L Potassium 3.3 L Chloride 99 Carbon Dioxide 21.3 Anion Gap 12.7 H BUN 3 L Creatinine 0.4 L Est GFR (CKD-EPI 2020) 111.83 Glucose 65 L Calcium 7.9 L Magnesium 1.3 L Total Bilirubin 0.4 Conjugated Bilirubin 0.2 AST 73 H ALT 37 Alkaline Phosphatase 130 H Ammonia 29 Troponin I < 50 NT-Pro-B Natriuret Pep 2465 H Total Protein 5.5 L Albumin 2.1 L Lipase 23 Procalcitonin 12.7 Urine Color Urine Clarity Urine pH Ur Specific [place] Urine Protein Urine Ketones Urine Blood Urine Nitrite Urine Bilirubin Urine Urobilinogen Ur Leukocyte Esterase Urine RBC Urine WBC Ur Epithelial Cells Urine Crystals Urine Bacteria Urine Casts Urine Mucus Ur Culture Indicated? Urine Glucose PFSH All Active Problems (Updated 09/21/23 @ 18:04 by Angela Gaming APRN) Ambulatory dysfunction (Acute) Edema of both lower legs (Acute) Congestive heart failure (Chronic) COPD exacerbation (Acute) Cellulitis (Acute) Severe sepsis (Acute) Prolonged QT interval (Acute) Respiratory failure (Acute) Leg pain (Acute) Sepsis (Acute) Shock (Acute) Hypomagnesemia (Acute) Hypokalemia (Acute) Difficulty walking (Acute) PVD (peripheral vascular disease) (Chronic) Atherosclerosis of aorta (Acute) Leg swelling (Acute) Acute hypokalemia (Acute) Hypoglycemia (Acute) Alcoholic ketoacidosis (Acute) Laceration of scalp (Acute) Fall (Acute) Chronic left hip pain (Acute) Contusion of hip (Acute) Closed intertrochanteric fracture of left hip (Acute) s/p IMN fixation (05/18/23) Smoker (Acute) Closed fracture of left hip (Acute) Fall (Acute) Alcohol intoxication (Acute) Anxiety (Chronic) Cavitary lesion of lung (Acute) H/O ETOH abuse (Acute) Tobacco use disorder (Acute 01/28/14) Pleural effusion (Acute) Hypomagnesemia (Acute) Fluid overload (Acute) Chest pain due to GERD (Acute) Chest wall muscle strain (Acute) Hypokalemia (Acute) COPD exacerbation (Acute) Emphysema lung (Acute) Nicotine dependence, cigarettes, uncomplicated (Acute) Atherosclerosis (Acute) Gastric wall thickening (Acute) Stenosis of right internal carotid artery (Acute) Mass of upper lobe of right lung (Acute) Alcohol abuse (Chronic) Dehydration (Acute) Diarrhea (Acute) Hypomagnesemia (Chronic) B12 deficiency (Acute) Ascites (Acute) Chronic liver disease (Chronic) Weight loss, non-intentional (Acute) Macrocytic anemia (Acute) Early satiety (Acute) Folate deficiency (Acute) Hypomagnesemia (Acute) Hypokalemia (Acute) Leg pain (Acute) Cellulitis (Acute) Bilateral leg ulcer (Acute) Medical History Pulmonary nodule COPD (chronic obstructive pulmonary disease) Hypomagnesemia Cachexia Hepatic fibrosis Ulcer of lower extremity Hair loss Vitamin D deficiency Chest pain Gastroesophageal reflux disease Hx pulmonary embolism COPD (chronic obstructive pulmonary disease) Chronic vomiting Malnutrition Frequent falls Bilateral leg pain Pancreatitis Diastolic dysfunction Folate deficiency anemia Ascites Bilateral lower extremity edema Unintentional weight loss Alcohol abuse Tobacco dependence syndrome Tobacco abuse Surgical History punch biopsy, skin of ankle, right lateral (11/24/16) negative for malignancy, sparse inflammation and reactive blood vessels foot surgery (~2000) Ligation of fallopian tube (~1999) ENT/Nasal surgery (~2007) Family History Father Lung disease Cancer Lung Social History Smoking/Tobacco Use Status: Current every day Tobacco Type: cigarettes Tobacco: How many years used: 45 Quit status: considering quitting Second Hand Exposure: Yes Smoking risk assessment performed?: Yes Alcohol Intake: current Alcohol Intake frequency: 3 or more drinks per day Alcohol type: wine and hard liquor Counseling given: Yes Counseling provided: provider counseling Drug use: Rarely Substance use type: marijuana Details: daily drinker, presents to [facility] under the influence of ETOH, states I didn't have much, 3 or 4 lemon drop martinis and a couple, maybe three or four hot toddies Housing: apartment Current gender identity: female Do you feel safe at home: Yes Do you feel safe in your relationship?: Yes Additional Social history: Lives alone in studio in [place], 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 Grew up in [place] [facility] [place], sisters in area. History History Para 0 Hx # Term Pregnancies Multiple births Hx # Pregnancies Ectopic pregnancies AB induced Hx Number of Living Children AB spontaneous Time Spent with Patient Time Spent with Patient: 70-84 minutes4 Time was spent: preparing to see the patient(eg.review tests), obtaining and/or reviewing separately otained hiistory, ordering medications,tests, procedures, referring, communicating with other health medicare sales representative, indepentently interpreting results, counseling the patient and care coordination
[2023-09-22 11:24] VITALS: BP 131/68; PULSE 91; RESP 16; TEMP 37.1; O2SAT 100
--- NOTE | 2023-09-22 11:38 | CHAPLAIN ---
Fannie was resting in bed, with her feet up, and easily engaged in conversation. We remembered each other from her admission in June. Fannie said the hospitalists have determined that she has heart failure that is causing the swelling in her legs and feet, and cellulites. All curable, she said. Fannie is supported by her sister who is her DPOA for medical decisions and Fannie trusts her sister completely, she said.
--- NOTE | 2023-09-22 14:09 | CMDISCH_ITS ---
Date of service: 09/22/23 Time of Service: 14:09 LACE Index Scoring Tool Questions: Length of Stay (in days): 1 Was the patient admitted via the E.D.?: Yes Comorbidities: PVD, Congestive Heart Failure, Chronic Pulmonary Disease and Liver or Renal Disease E.D. Visits: 13 Answers: Total Score: 13 Risk of Readmission: High Risk Care Management Discharge Plan Reason for Hospitalization: lower extremity edema Discharge Plan: Fannie will be discharged home with new home health orders for RN and PT. She will follow up with community providers and plan of care and transport via [facility] w[facility]c van. Patient/Family Education Needs: Review discharge instructions, limitations, follow up plan, discuss Ask Me Three Services Needed at Discharge: Home Health Care Services SDOH Health Related Social Needs: Health related social needs transpo insecurity Care Management Referrals: Other (uses [facility] van for transportation)
[2023-09-22] MEDS: Magnesium Oxide 400 MG TAB 800 MG PO (15:07)
[2023-09-22] MEDS: Furosemide 20 MG TAB 10 MG PO (15:07)
--- NOTE | 2023-09-22 15:31 | PDOC.HHF2F ---
Home Health Referral Home Health Orders Clinical synopsis of why skilled professionals are needed: This is a 63 years old female patient with a past medical history of chronically elevated LFTs without cirrhosis, COPD, daily alcohol ingestion, peripheral vascular disease, recent hip surgery in May 2023 and recent hospitalization with lower extremity cellulitis discharged on oral antibiotics and reporting not having completed them who presented to the ED at [facility] on 09/21/2023 for evaluation of bilateral lower extremity swelling, leg pain, and difficulty ambulating. Initial systolic blood pressure reported to be in the 60s from the ED provider but later documentation showed normotension. The workup in the emergency room showed elevated BNP at 2465, small amount of leuk esterase in UA without fever or leukocytosis, magnesium of 1.3 and potassium of 3.3.Supplementation initiated in the emergency room. The patient also received IV Lasix and IV fluids in the ED. The patient was admitted for observation under the hospitalist service on the medical surgical floor for evaluation and management of lower extremity swelling, elevated BNP, hypomagnesemia, hypokalemia and ambulatory dysfunction. When seen, the patient mentioned that she had not completed her course of antibiotics given at previous discharge. At the time the patient also mentioned that she would like to be revived if her heart was to stop and will try a short period of intubation if needed. The antibiotics were reordered during the stay and patient educated on completing her course of antibiotic once home. Echocardiogram showed a left ventricular ejection fraction of 55% with normal wall motion but mildly dilated right ventricle with normal right ventricular systolic function. Estimated right ventricular systolic pressure was 41 mmHg. The patient will continue to have short course of oral Lasix at home which for further management per her primary care practitioner. This morning, leg swelling has improved. The patient is in no acute respiratory or cardiovascular distress and is ambulating with physical therapy and walker. Physical therapy recommendations are for home health physical therapy and a walker. The patient will require home health nursing for medicine compliance as well as evaluation of worsening condition. The patient will have a CMP prior to the follow-up with her primary care practitioner. Registered Nurse: Check all that apply Instruct on new or changed medication(s)/assess compliance: Ordered Assess for exacerbation of medical condition, instruct patient/caregivers on signs and symptoms to report for early detection: Ordered Physical Therapist: Check all that apply Increase strength & endurance for safe mobility at home: Ordered To design/establish home maintenance program: Ordered Fall reduction therapy program for patient with history of frequent falls: Ordered Home safety evaluation and teaching/gait training including stair management (if applicable): Ordered Drafter Directional Survey: Assist with community resources: Ordered Assist with continuous churn buttermaker care planning: Ordered Home Bound Status Requires the aid of supportive device (check all that apply): Walker Use of Special Transportation (Describe transportation and medical necessity): RCT Describe why leaving home would require a considerable and taxing effort: Requires frequent rest periods and Incontinence Encounter Date and Reason: I certify that a FTF encounter for this patient was performed on September 22, 2023 and that such encounter was related to the primary reason the patient requires home health services. The encounter was conducted in the following manner: By me as the certifying physician, RESOURCE MANAGEMENT SPECIALIST, PA or By an inpatient physician, RESOURCE MANAGEMENT SPECIALIST or PA during an inpatient stay who communicated findings to me, Certification And Authentication I certify that I composed the above information based on my clinical judgment relating to this patient's medical condition and, if applicable, clinical findings communicated to me by the NPP or inpatient physician who performed the FTF encounter. Name of Provider that will be monitoring home health services: Shell Hopper
[2023-09-22 15:37] VITALS: BP 144/83; PULSE 89; RESP 16; TEMP 36.4; O2SAT 92
== END 2023-09-22 16:56 | disposition home health service (06) ==
LOC: ER 15:38 → MS 19:40
PROVIDERS: Nurse Practitioner Acute Care; Admitting Provider Family Medicine; Emergency Provider Physician Assistant; PCP Nurse Practitioner Family; Visit Provider Family Medicine
DX: I50.9 Heart failure, unspecified (principal); R60.0 Localized edema; R29.6 Repeated falls; E83.42 Hypomagnesemia; E87.6 Hypokalemia; J44.9 Chronic obstructive pulmonary disease, unspecified; I73.9 Peripheral vascular disease, unspecified; Z79.899 Other long term (current) drug therapy; R94.31 Abnormal electrocardiogram [ECG] [EKG]; I70.0 Atherosclerosis of aorta; F41.9 Anxiety disorder, unspecified; F17.210 Nicotine dependence, cigarettes, uncomplicated; F10.10 Alcohol abuse, uncomplicated; E46 Unspecified protein-calorie malnutrition; K21.9 Gastro-esophageal reflux disease without esophagitis; Z68.1 Body mass index [BMI] 19.9 or less, adult; E53.8 Deficiency of other specified B group vitamins; K76.9 Liver disease, unspecified
CPT/HCPCS: 00123; 36415; 80048; 80076; 83690; 84145; 96361; 96365; 96366; 96372; 96375; 99285; J1650; 81003; 81015; 82140; 83605; 83735; 83880; 84484; 85025; 85610; 93306; 99223; 99239; G0378; J1940; J3475

== ENCOUNTER 2023-09-24 10:25 | Emergency (ER) | payer BC, SELFPAY ==
[2023-09-24] VITALS (19 sets, daily range): BP systolic 90–137; BP diastolic 47–75; PULSE 75–104; RESP 13–24; TEMP 36.8; O2SAT 99–100
--- NOTE | 2023-09-24 10:59 | W.ED.GENAD ---
Discharge Plan Disposition Patient Disposition: Home Discharge Details Clinical Impression: Cellulitis, Leg swelling, PVD (peripheral vascular disease), Fluid overload, Hypomagnesemia Primary Care Provider: MARIANO KEARNEY ED Provider: David Renner Home Meds and New Rx's Prescriptions: No Action ipratropium-albuterol 0.5 mg-3 mg(2.5 mg base)/3 mL solution for nebulization 3 ml inhalation Q4H PRN (Reason: wheezing) Qty: 540 8RF albuterol sulfate 90 mcg/actuation HFA aerosol inhaler 2 puff inhalation Q6H PRN (Reason: shortness of breath or wheezing) Qty: 8.5 12RF thiamine HCl (vitamin B1) 250 mg tablet 250 mg PO DAILY gabapentin 300 mg capsule 300 mg PO TID Stiolto Respimat 2.5-2.5 mcg/actuation mist 2 puff inhalation Q24H Qty: 4 12RF loperamide [Imodium A-D] 1 mg/7.5 mL liquid 2 mg PO Q1-4H PRNQty: 120 0RF Rx Instructions: administer after each loose stool until symptoms controlled; do not exceed 16 mg per 24 hrs furosemide 20 mg Tablet 10 mg PO BID@0830,1600 Qty: 20 0RF multivitamin [Multiple Vitamins] Tablet 1 tab PO DAILY Qty: 30 0RF magnesium 250 mg tablet 250 mg PO DAILY Qty: 20 0RF ibuprofen 600 mg tablet 600 mg PO TID PRNQty: 30 0RF omeprazole 40 mg capsule,delayed release(DR/EC) 40 mg PO DAILY amoxicillin-pot clavulanate 875-125 mg tablet 1 tab PO BID Qty: 14 0RF Discharge Instructions Instructions: Cellulitis (ED), Leg Edema (ED) Additional Instructions: I feel that today your concern is secondary to increased swelling due to not having her medications after discharge. It is very important to take them as prescribed and we have supplied you with enough supply to get you until Tuesday of next week. Please ensure that you receive your medications from the pharmacy or follow-up with your primary care provider for any dosing changes as needed. Your labs look stable otherwise and I do not feel that any interventions or further treatment is required. Return to the emergency department immediately for any significant worsening of condition or further concerns. Referrals: MARIANO KEARNEY, [employer]PERATOR [Primary Care Provider] - 5 days (For reassessment) HPI General Mode of arrival: ambulatory. Date/Time Provider Initiated Documentation: 09/24/23 10:44. Limitations to Documentation: no limitations. Information obtained by: patient and RN notes reviewed. History of Present Illness 63 year old F presents to the emergency department with the chief complaint of Bilateral extremity swelling and redness, described as moderate and similar to prior episodes, and is localized to the lower extremity. Patient started experiencing this month(s) (2) and it has been constant. Medication improves symptom(s), No exacerbating factors reported . Patient notes no other symptoms.. Patient did receive the following treatments prior to arrival, none Related Data Home Medications Medication Instructions Recorded Confirmed multivitamin (Multiple Vitamins 1 tab PO DAILY #30 tabs 08/13/20 09/24/23 tablet) albuterol sulfate 90 mcg/actuation 2 puff inhalation Q6H PRN 01/18/22 09/24/23 aerosol inhaler shortness of breath or wheezing #8.5 grams magnesium 250 mg tablet 250 mg PO DAILY #20 tabs 11/09/22 09/24/23 thiamine HCl (vitamin B1) 250 mg 250 mg PO DAILY 04/19/23 09/24/23 tablet tiotropium 2.5 mcg-olodaterol 2.5 2 puff inhalation Q24H #4 grams 05/04/23 09/24/23 mcg/actuation mist for inhalation (Stiolto Respimat) ipratropium 0.5 mg-albuterol 3 mg 3 ml inhalation Q4H PRN wheezing 05/10/23 09/24/23 (2.5 mg base)/3 mL nebulization #540 mL soln ibuprofen 600 mg tablet 600 mg PO TID PRN #30 tabs 05/20/23 09/24/23 gabapentin 300 mg capsule 300 mg PO TID 06/06/23 09/24/23 omeprazole 40 mg capsule,delayed 40 mg PO DAILY 06/12/23 09/24/23 release loperamide 1 mg/7.5 mL oral liquid 2 mg (15 mL) PO Q1-4H PRN #120 mL 08/02/23 09/24/23 (Imodium A-D) amoxicillin 875 mg-potassium 1 tab PO BID #14 tabs 09/14/23 09/24/23 clavulanate 125 mg tablet furosemide 20 mg tablet 10 mg (1/2 x 20 mg) PO 09/22/23 09/24/23 BID@0830,1600 #20 tabs Previous Rx's Medication Instructions Recorded multivitamin (Multiple Vitamins 1 tab PO DAILY #30 tabs 08/13/20 tablet) albuterol sulfate 90 mcg/actuation 2 puff inhalation Q6H PRN 01/18/22 aerosol inhaler shortness of breath or wheezing #8.5 grams magnesium 250 mg tablet 250 mg PO DAILY #20 tabs 11/09/22 tiotropium 2.5 mcg-olodaterol 2.5 2 puff inhalation Q24H #4 grams 05/04/23 mcg/actuation mist for inhalation (Stiolto Respimat) ipratropium 0.5 mg-albuterol 3 mg 3 ml inhalation Q4H PRN wheezing 05/10/23 (2.5 mg base)/3 mL nebulization #540 mL soln ibuprofen 600 mg tablet 600 mg PO TID PRN #30 tabs 05/20/23 loperamide 1 mg/7.5 mL oral liquid 2 mg (15 mL) PO Q1-4H PRN #120 mL 08/02/23 (Imodium A-D) amoxicillin 875 mg-potassium 1 tab PO BID #14 tabs 09/14/23 clavulanate 125 mg tablet furosemide 20 mg tablet 10 mg (1/2 x 20 mg) PO 09/22/23 BID@0830,1600 #20 tabs Allergies Allergy/AdvReac Type Severity Reaction Status Date / Time bacitracin Allergy Mild localized Verified 09/24/23 10:31 [From Neosporin redness ([id number])] neomycin Allergy Mild localized Verified 09/24/23 10:31 [From Neosporin redness ([id number])] polymyxin B Allergy Mild localized Verified 09/24/23 10:31 [From Neosporin redness ([id number])] General Stated Complaint: Cellulitis RAHEEM: 3 Review of Systems Constitutional Constitutional: Denies chills and Denies fever(s) Cardiovascular Cardiovascular: Denies chest pain, Denies dyspnea, Denies dyspnea on exertion and Denies orthopnea Respiratory Respiratory: Denies dyspnea and Denies dyspnea on exertion Gastrointestinal Gastrointestinal: Denies abdominal pain and Denies nausea Genitourinary Genitourinary: Denies dysuria Musculoskeletal Musculoskeletal: Reports as per HPI Integumentary/Breasts Skin/Breast: Reports as per HPI and Reports erythema Exam Const General: cooperative, no acute distress and not ill appearing Orientation: alert, awake and oriented x3 HENMT Mouth: moist mucous membranes Resp Effort & Inspection: normal respiratory effort, able to speak in complete sentences and no respiratory distress Cardio Rate: regular rate Rhythm: regular rhythm Heart Sounds: S1 normal, S2 normal, no gallops, no murmurs and no rubs Pulses: dorsalis pedis present Neuro General: patient alert, patient awake, patient oriented x3 and moves all extremities Extrem General: pedal edema bilaterally (knee down) pitting and 2+ and other (Bilateral lower extremity erythema within skin marking areas ) Course Vital Signs Vital signs: Vital Signs Temperature 36.8 C 09/24/23 10:29 Pulse 104 H 09/24/23 10:29 Respiratory Rate 16 09/24/23 10:29 Blood Pressure 102/57 L 09/24/23 10:29 Pulse Oximetry 100 09/24/23 10:29 Temperature 36.8 C 09/24/23 10:56 Temperature Source Temporal Artery Scan 09/24/23 10:56 Pulse 104 H 09/24/23 10:56 Pulse 90 09/24/23 10:50 Respiratory Rate 16 09/24/23 10:56 Respiratory Effort Normal, Non-Labored 09/24/23 10:52 Blood Pressure 102/57 L 09/24/23 10:56 Blood Pressure Mean 71 09/24/23 10:45 Blood Pressure Position Sitting 09/24/23 10:56 Pulse Oximetry 100 09/24/23 10:56 Oxygen Delivery Method Room Air 09/24/23 10:56 Oxygen Flow Rate 0 09/24/23 10:56 Pain Level 7 09/24/23 10:56 Medical Decision Making Patient presenting to the emergency department for chief complaint of bilateral pain swelling and redness to her lower extremities. Patient reports this has been going on for approximately 2 months and was recently discharged from the hospital for the same thing. She reports that at inpatient discharge her medications were supposed to be delivered from [facility] but that this never occurred so she has been taking the medication she has had at home but none of the new meds that were prescribed at discharge which included her Lasix. Patient denies any chest pain or shortness of breath, fever or chills, states that redness is within skin marking that was performed at discharge, denies any significant worsening or change in symptoms. Physical exam shows bilateral lower extremity pitting edema from the knees down with erythema noted. No streaking redness proximal to skin markings, pulses are intact, sensation intact, exam otherwise noncontributory. Suspect increase of discomfort and sensation causing patient to come in is secondary to not having her Lasix over the last couple days. Did review discharge note along with previous labs that do show chronic alcoholism with liver dysfunction, anemia, and electrolyte abnormalities. Will plan on giving patient IV Lasix and checking labs. Based on assessment and review of previous records suspect disposition of discharge as long as there is no significant lab abnormalities given the patient states overall improvement of any shortness of breath that she had in the past and no dramatic change from previous presentations. Reviewed patient's labs and patient has a chronic but stable appearing anemia with hemoglobin of 10.5. No significant leukocytosis or shift noted and any subtle changes are for the better and not worse. Sodium slightly low at 135, renal function similar to previous findings, chronic but stable dysfunction of AST and alk phos with no concerning or traumatic changes, total protein and albumin remain low. Potassium within normal range, magnesium slightly low at 1.3. Patient did urinate out approximately 900 mL and states some improvement of discomfort. Was able to arrange patient to receive medications that will last her until mid next week and went with recommendations from discharge instructions. Encourage patient to return for new or worsening symptoms otherwise to follow-up with primary care provider. After discussion of diagnosis and plan of care patient has no further needs, questions, or concerns and states clear understanding to return to the emergency department for any worsening symptoms. This documentation was generated using [employer] system, please disregard any oddities of phrase or misspellings. Lab Data Lab results reviewed: Yes I reviewed the patient's lab results. Quality:SDOH Health Related Social Needs: Health related social needs transpo insecurity PFSH All Active Problems (Updated 09/24/23 @ 12:42 by David Renner NP) Ambulatory dysfunction (Acute) Edema of both lower legs (Acute) Congestive heart failure (Chronic) COPD exacerbation (Acute) Cellulitis (Acute) Severe sepsis (Acute) Prolonged QT interval (Acute) Respiratory failure (Acute) Leg pain (Acute) Sepsis (Acute) Shock (Acute) Hypomagnesemia (Acute) Hypokalemia (Acute) Difficulty walking (Acute) PVD (peripheral vascular disease) (Chronic) Atherosclerosis of aorta (Acute) Leg swelling (Acute) Acute hypokalemia (Acute) Hypoglycemia (Acute) Alcoholic ketoacidosis (Acute) Laceration of scalp (Acute) Fall (Acute) Chronic left hip pain (Acute) Contusion of hip (Acute) Closed intertrochanteric fracture of left hip (Acute) s/p IMN fixation (05/18/23) Smoker (Acute) Closed fracture of left hip (Acute) Fall (Acute) Alcohol intoxication (Acute) Anxiety (Chronic) Cavitary lesion of lung (Acute) H/O ETOH abuse (Acute) Tobacco use disorder (Acute 01/28/14) Pleural effusion (Acute) Hypomagnesemia (Acute) Fluid overload (Acute) Chest pain due to GERD (Acute) Chest wall muscle strain (Acute) Hypokalemia (Acute) COPD exacerbation (Acute) Emphysema lung (Acute) Nicotine dependence, cigarettes, uncomplicated (Acute) Atherosclerosis (Acute) Gastric wall thickening (Acute) Stenosis of right internal carotid artery (Acute) Mass of upper lobe of right lung (Acute) Alcohol abuse (Chronic) Dehydration (Acute) Diarrhea (Acute) Hypomagnesemia (Chronic) B12 deficiency (Acute) Ascites (Acute) Chronic liver disease (Chronic) Weight loss, non-intentional (Acute) Macrocytic anemia (Acute) Early satiety (Acute) Folate deficiency (Acute) Hypomagnesemia (Acute) Hypokalemia (Acute) Leg pain (Acute) Cellulitis (Acute) Bilateral leg ulcer (Acute) Medical History Pulmonary nodule COPD (chronic obstructive pulmonary disease) Hypomagnesemia Cachexia Hepatic fibrosis Ulcer of lower extremity Hair loss Vitamin D deficiency Chest pain Gastroesophageal reflux disease Hx pulmonary embolism COPD (chronic obstructive pulmonary disease) Chronic vomiting Malnutrition Frequent falls Bilateral leg pain Pancreatitis Diastolic dysfunction Folate deficiency anemia Ascites Bilateral lower extremity edema Unintentional weight loss Alcohol abuse Tobacco dependence syndrome Tobacco abuse Surgical History punch biopsy, skin of ankle, right lateral (11/24/16) negative for malignancy, sparse inflammation and reactive blood vessels foot surgery (~2000) Ligation of fallopian tube (~1999) ENT/Nasal surgery (~2007) Family History Father Lung disease Cancer Lung Social History Smoking/Tobacco Use Status: Current every day Tobacco Type: cigarettes Tobacco: How many years used: 45 Quit status: considering quitting Second Hand Exposure: Yes Smoking risk assessment performed?: Yes Alcohol Intake: current Alcohol Intake frequency: 3 or more drinks per day Alcohol type: wine and hard liquor Counseling given: Yes Counseling provided: provider counseling Drug use: Rarely Substance use type: marijuana Details: daily drinker, presents to [facility] under the influence of ETOH, states I didn't have much, 3 or 4 lemon drop martinis and a couple, maybe three or four hot toddies Housing: apartment Current gender identity: female Do you feel safe at home: Yes Do you feel safe in your relationship?: Yes Additional Social history: Lives alone in studio in [facility], 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 Grew up in [facility], sisters in area. History History Para 0 Hx # Term Pregnancies Multiple births Hx # Pregnancies Ectopic pregnancies AB induced Hx Number of Living Children AB spontaneous PAWSS Have you Been Recently Intoxicated or Drunk Within the Last 30 days?: Yes Have you Ever Experienced Previous Episodes of Alcohol Withdrawal?: No Have you ever Experienced Withdrawal Seizures?: No Have you ever Experienced Delirium Tremens(DT)s?: No Have you ever undergone Alcohol Rehabilitation Treatment (i.e, inpt ot outpatient treatment programs)?: No Have you ever Experienced Blackouts?: No Have you ever Combined Alcohol with other Downers within the last 90 days?: No Have you ever Combined Alcohol with any other Substance of Abuse during the last 90 days?: No Positive Blood Alcohol level on Presentation? [PCS.BAL]: Unable to Obtain Evidence of Increased Autonomic Activity (i.e. HR>120, tremor, sweating, agitation, nausea)?: No Result: 1
[2023-09-24] MEDS: Furosemide 20 MG/2 ML VIAL IVP (11:15)
[2023-09-24] MEDS: Amoxicillin 875/Clav. 125 TAB PO (11:15)
[2023-09-24] MEDS: Normal Saline Flush 10 ML SYR IVP (11:33)
[2023-09-24 11:36] LABS: Abs Immature Grans 0.03 10^3/uL (0.0-0.06); Absolute Basophil Count 0.03 10^3/uL (0.0-0.2); Absolute Eosinophil Count 0.18 10^3/uL (0.0-0.7); Absolute Lymphocyte Count 1.59 10^3/uL (1.2-3.4); Absolute Monocyte Count 0.38 10^3/uL (0.1-0.8); Absolute Neutrophil Count 4.18 10^3/uL (1.2-6.7); Basophils % 0.5 %; Eosinophils % 2.8 %; HCT 31.7 % (36.0-46.0); HGB 10.5 g/dL (11.2-15.7); Immature Grans % 0.5 %; Lymphocytes % 24.9 %; MCH 36.6 pg (27.0-33.0); MCHC 33.1 % (32.0-36.0); MPV 9.8 fL (8.0-11.0); Monocytes % 5.9 %; Neutrophils % 65.4 %; Platelet Count 222 10^3/uL (130-400); RBC 2.87 10^6/uL (3.93-5.22); RDW 15.6 % (11.7-14.6); RDW-SD 63.2 fL; WBC 6.39 10^3/uL (4.4-10.8)
[2023-09-24 11:37] LABS: MCV 111 fL (80-95)
[2023-09-24 11:51] LABS: ALT 26 U/L (14-59); AST 44 U/L (15-37); Albumin 2.5 g/dL (3.4-5.0); Alkaline Phosphatase 149 U/L (46-116); Anion Gap 8.3 mmol/L (3-11); BUN 2 mg/dL (7-18); Bilirubin, Total 0.3 mg/dL (0.2-1.0); CO2 25.7 mmol/L (21.0-32.0); CREATININE 0.5 mg/dL (0.55-1.02); Calcium 8.7 mg/dL (8.5-10.1); Chloride 101 mmol/L (98-107); Estimated GFR 105.98 (mL/min/1.73m2); Glucose 70 mg/dL (74-106); Magnesium 1.3 mg/dL (1.8-2.4); Potassium 4.3 mmol/L (3.5-5.1); Sodium 135 mmol/L (136-145); Total Protein 6.3 g/dL (6.4-8.2)
[2023-09-24] MEDS: Magnesium Oxide 400 MG TAB PO (12:39)
== END 2023-09-24 13:04 | disposition home or self-care (01) ==
PROVIDERS: Emergency Provider Nurse Practitioner Family; PCP Nurse Practitioner Family
DX: L03.116 Cellulitis of left lower limb; L03.115 Cellulitis of right lower limb; I73.9 Peripheral vascular disease, unspecified; E87.70 Fluid overload, unspecified; E83.42 Hypomagnesemia; Z79.899 Other long term (current) drug therapy; D64.9 Anemia, unspecified; J44.9 Chronic obstructive pulmonary disease, unspecified
CPT/HCPCS: 36415; 80053; 96374; 99284; 83735; 85025; J1941

== ENCOUNTER 2023-09-28 09:58 | Emergency (ER) | payer BC, SELFPAY ==
[2023-09-28 10:06] VITALS: BP 89/48; PULSE 104; RESP 16; TEMP 36.4; O2SAT 94
--- NOTE | 2023-09-28 10:15 | DI.US_ITS ---
Exam(s) US EXTREMITY VENOUS BI EXAM: US EXTREMITY VENOUS BI CLINICAL HISTORY: leg swelling, eval for clot. TECHNIQUE: Bilateral lower extremity venous ultrasound performed using grayscale, color-flow, and sp ectral Doppler analysis. COMPARISON: No exams were available for comparison FINDINGS: The bilateral common femoral, femoral and popliteal veins demonstrate normal compressibility, augment ation, and color Doppler. The posterior tibial veins on the left were suboptimally visualized but pat ent. Significant subcutaneous edema in both lower legs. IMPRESSION: Right: Negative for DVT Left: Negative for DVT DATA REPOSITORY:
[2023-09-28] MEDS: Furosemide 20 MG TAB PO (10:26)
--- NOTE | 2023-09-28 12:28 | W.ED.GENAD ---
Discharge Plan Disposition Patient Disposition: Home Condition: Good Discharge Details Clinical Impression: Cellulitis of left leg, Edema, peripheral Primary Care Provider: MARIANO KEARNEY ED Provider: Walter Griffiths Home Meds and New Rx's Prescriptions: New cephalexin 500 mg capsule 500 mg PO QID 7 Days Qty: 28 0RF Discontinued amoxicillin-pot clavulanate 875-125 mg tablet 1 tab PO BID Qty: 14 0RF No Action ipratropium-albuterol 0.5 mg-3 mg(2.5 mg base)/3 mL solution for nebulization 3 ml inhalation Q4H PRN (Reason: wheezing) Qty: 540 8RF albuterol sulfate 90 mcg/actuation HFA aerosol inhaler 2 puff inhalation Q6H PRN (Reason: shortness of breath or wheezing) Qty: 8.5 12RF thiamine HCl (vitamin B1) 250 mg tablet 250 mg PO DAILY gabapentin 300 mg capsule 300 mg PO TID Stiolto Respimat 2.5-2.5 mcg/actuation mist 2 puff inhalation Q24H Qty: 4 12RF loperamide [Imodium A-D] 1 mg/7.5 mL liquid 2 mg PO Q1-4H PRNQty: 120 0RF Rx Instructions: administer after each loose stool until symptoms controlled; do not exceed 16 mg per 24 hrs furosemide 20 mg Tablet 10 mg PO BID@0830,1600 Qty: 20 0RF multivitamin [Multiple Vitamins] Tablet 1 tab PO DAILY Qty: 30 0RF magnesium 250 mg tablet 250 mg PO DAILY Qty: 20 0RF ibuprofen 600 mg tablet 600 mg PO TID PRNQty: 30 0RF omeprazole 40 mg capsule,delayed release(DR/EC) 40 mg PO DAILY Discharge Instructions Instructions: Cellulitis (ED) Additional Instructions: At this time you have cellulitis of your left lower extremity. It is mild. Please take the antibiotic as directed. Is been sent to your pharmacy on file. Please double your water pill furosemide for the next 48 hours. Please wear the compression stockings at all time. Avoid salty foods. If you notice any worsening of your symptoms, or any new symptoms such as vomiting, diarrhea, fever, chills, shortness of breath, chest pain, numbness, weakness, or fainting , please return immediately to the emergency department for reevaluation. Please follow up with your primary care provider as soon as possible for reassessment and reevaluation. As always, it was a pleasure participating in your medical care today. Referrals: MARIANO KEARNEY NP [Primary Care Provider] - [facility] General Date/Time Provider Initiated Documentation: 09/28/23 10:12. [facility] Narrative: 63-year-old female with a past medical history of chronic alcohol use, previous left hip surgery, anxiety, reactive airway disease, GERD, chronic baseline low blood pressure, COPD, peripheral vascular disease, chronic peripheral edema, presents today for evaluation of leg swelling. Patient states that she was recently seen, started on a diuretic, and had been doing well in regards to her leg swelling, however starting this morning she noticed that the swelling came back and it got significantly worse. She is uncertain if she has any significant salty foods. She denies missing any doses of her medication. She denies any fever or chills. She denies any chest pain or shortness of breath. She denies any vomiting or diarrhea. Mild achiness in her left calf. No other complaints at this time. No trauma the lower extremities. Related Data Home Medications Medication Instructions Recorded Confirmed multivitamin (Multiple Vitamins 1 tab PO DAILY #30 tabs 08/13/20 09/24/23 tablet) albuterol sulfate 90 mcg/actuation 2 puff inhalation Q6H PRN 01/18/22 09/24/23 aerosol inhaler shortness of breath or wheezing #8.5 grams magnesium 250 mg tablet 250 mg PO DAILY #20 tabs 11/09/22 09/24/23 thiamine HCl (vitamin B1) 250 mg 250 mg PO DAILY 04/19/23 09/24/23 tablet tiotropium 2.5 mcg-olodaterol 2.5 2 puff inhalation Q24H #4 grams 05/04/23 09/24/23 mcg/actuation mist for inhalation (Stiolto Respimat) ipratropium 0.5 mg-albuterol 3 mg 3 ml inhalation Q4H PRN wheezing 05/10/23 09/24/23 (2.5 mg base)/3 mL nebulization #540 mL soln ibuprofen 600 mg tablet 600 mg PO TID PRN #30 tabs 05/20/23 09/24/23 gabapentin 300 mg capsule 300 mg PO TID 06/06/23 09/24/23 omeprazole 40 mg capsule,delayed 40 mg PO DAILY 06/12/23 09/24/23 release loperamide 1 mg/7.5 mL oral liquid 2 mg (15 mL) PO Q1-4H PRN #120 mL 08/02/23 09/24/23 (Imodium A-D) furosemide 20 mg tablet 10 mg (1/2 x 20 mg) PO 09/22/23 09/24/23 BID@0830,1600 #20 tabs cephalexin 500 mg capsule 500 mg PO QID 7 days #28 caps 09/28/23 Previous Rx's Medication Instructions Recorded multivitamin (Multiple Vitamins 1 tab PO DAILY #30 tabs 08/13/20 tablet) albuterol sulfate 90 mcg/actuation 2 puff inhalation Q6H PRN 01/18/22 aerosol inhaler shortness of breath or wheezing #8.5 grams magnesium 250 mg tablet 250 mg PO DAILY #20 tabs 11/09/22 tiotropium 2.5 mcg-olodaterol 2.5 2 puff inhalation Q24H #4 grams 05/04/23 mcg/actuation mist for inhalation (Stiolto Respimat) ipratropium 0.5 mg-albuterol 3 mg 3 ml inhalation Q4H PRN wheezing 05/10/23 (2.5 mg base)/3 mL nebulization #540 mL soln ibuprofen 600 mg tablet 600 mg PO TID PRN #30 tabs 05/20/23 loperamide 1 mg/7.5 mL oral liquid 2 mg (15 mL) PO Q1-4H PRN #120 mL 08/02/23 (Imodium A-D) furosemide 20 mg tablet 10 mg (1/2 x 20 mg) PO 09/22/23 BID@0830,1600 #20 tabs cephalexin 500 mg capsule 500 mg PO QID 7 days #28 caps 09/28/23 Allergies Allergy/AdvReac Type Severity Reaction Status Date / Time bacitracin Allergy Mild localized Verified 09/28/23 10:10 [From Neosporin redness ([id number])] neomycin Allergy Mild localized Verified 09/28/23 10:10 [From Neosporin redness ([id number])] polymyxin B Allergy Mild localized Verified 09/28/23 10:10 [From Neosporin redness ([id number])] General Stated Complaint: GenMedical RAHEEM: 3 Review of Systems All systems reviewed & are unremarkable except as noted in HPI and below Exam Narrative Exam Narrative: 1.Const: Well-nourished, Well-developed, appearing stated age 2.Eyes: PERRL, no conjunctival injection, and symmetrical lids. 3.ENT: Atraumatic external nose and ears. Moist MM. Neck: Symmetric, trachea midline, No thyromegaly. 4.CVS: +S1/S2, No murmurs or gallops. Peripheral pulses 2+ and equal in all extremities. Brisk capillary refill in all extremities. 5.RESP: Unlabored respiratory effort. Clear to auscultation bilaterally. No wheezes rales or rhonchi 6.GI: Soft, Nontender/Nondistended, No hepatosplenomegaly. No guarding or rebound. 7.MSK: Normocephalic/Atraumatic, Extremities w/o deformity. Mild pitting edema +1 in both lower extremities, mild erythema on the left lower lateral component of her left extremity. No lesions, abscesses or other abnormalities otherwise. No focal trauma. Peripheral pulses are +2 bilaterally for [place] pedis posterior tibial pulse. Sensation intact. Brisk capillary refill. 8.Skin: Warm, Dry. No rashes or lesions. 9.Neuro: weight checker II-XII grossly intact. Sensation grossly intact, no focal neurologic deficits. 10.Psych: (AAO) x3. Appropriate mood and affect Course Vital Signs Vital signs: Vital Signs Temperature 36.4 C L 09/28/23 10:06 Pulse 104 H 09/28/23 10:06 Respiratory Rate 16 09/28/23 10:06 Blood Pressure 89/48 L 09/28/23 10:06 Pulse Oximetry 94 09/28/23 10:06 Temperature 36.4 C L 09/28/23 10:06 Temperature Source Skin 09/28/23 10:06 Pulse 104 H 09/28/23 10:06 Respiratory Rate 16 09/28/23 10:06 Respiratory Effort Normal 09/28/23 10:09 Blood Pressure 89/48 L 09/28/23 10:06 Blood Pressure Position Sitting 09/28/23 10:06 Pulse Oximetry 94 09/28/23 10:06 Oxygen Delivery Method Room Air 09/28/23 10:06 Oxygen Flow Rate 0 09/28/23 10:06 Medical Decision Making 63-year-old female with a past medical history of chronic alcohol use, previous left hip surgery, anxiety, reactive airway disease, GERD, chronic baseline low blood pressure, COPD, peripheral vascular disease, chronic peripheral edema, presents today for evaluation of leg swelling. Patient states that she was recently seen, started on a diuretic, and had been doing well in regards to her leg swelling, however starting this morning she noticed that the swelling came back and it got significantly worse. She is uncertain if she has any significant salty foods. She denies missing any doses of her medication. She denies any fever or chills. She denies any chest pain or shortness of breath. She denies any vomiting or diarrhea. Mild achiness in her left calf. No other complaints at this time. No trauma the lower extremities. Exam demonstrates mild +1 pitting edema bilaterally, with mild erythema on the left lower extremity, and mild calf tenderness. Ultrasound was ordered and demonstrates no evidence of acute DVT. I suspect there is minimal cellulitis on the left lower extremity that would benefit from antibacterial therapy. Patient's blood pressure is slightly low however this is her chronic baseline. She feels well, and is talkative interactive with no fever otherwise. Symptoms inconsistent with septic shock. She remains at baseline otherwise. Will give her her morning dose of Lasix, will recommend she double up for the next 24 to 48 hours. Will give Keflex for treatment of mild cellulitis. No other evidence of overt CHF. Lungs are clear, no hypoxemia, no other abnormalities otherwise. Patient stable for discharge. Discussed red flags which to return. Patient ambulated well. I have extensively reviewed the treatment plan and discharge instructions with the patient. I have addressed all patient concerns at this time. The patient was made aware of what symptoms to monitor for that would warrant a return to the emergency department. Discussed the plan with the patient, they demonstrate verbal understanding and agreement with our assessment and plan at this time. The documentation in this chart was dictated using [employer] dictation software. Please excuse any dictation errors. FINDINGS: The bilateral common femoral, femoral and popliteal veins demonstrate normal compressibility, augmentation, and color Doppler. The posterior tibial veins on the left were suboptimally visualized but patent. Significant subcutaneous edema in both lower legs. IMPRESSION: Right: Negative for DVT Left: Negative for DVT Quality:SDOH Health Related Social Needs: Health related social needs transpo insecurity [facility] All Active Problems (Updated 09/28/23 @ 12:29 by Walter Griffiths DO) Edema, peripheral (Acute) Cellulitis of left leg (Acute) Ambulatory dysfunction (Acute) Edema of both lower legs (Acute) Congestive heart failure (Chronic) COPD exacerbation (Acute) Cellulitis (Acute) Severe sepsis (Acute) Prolonged QT interval (Acute) Respiratory failure (Acute) Leg pain (Acute) Sepsis (Acute) Shock (Acute) Hypomagnesemia (Acute) Hypokalemia (Acute) Difficulty walking (Acute) PVD (peripheral vascular disease) (Chronic) Atherosclerosis of aorta (Acute) Leg swelling (Acute) Acute hypokalemia (Acute) Hypoglycemia (Acute) Alcoholic ketoacidosis (Acute) Laceration of scalp (Acute) Fall (Acute) Chronic left hip pain (Acute) Contusion of hip (Acute) Closed intertrochanteric fracture of left hip (Acute) s/p IMN fixation (05/18/23) Smoker (Acute) Closed fracture of left hip (Acute) Fall (Acute) Alcohol intoxication (Acute) Anxiety (Chronic) Cavitary lesion of lung (Acute) H/O ETOH abuse (Acute) Tobacco use disorder (Acute 01/28/14) Pleural effusion (Acute) Hypomagnesemia (Acute) Fluid overload (Acute) Chest pain due to GERD (Acute) Chest wall muscle strain (Acute) Hypokalemia (Acute) COPD exacerbation (Acute) Emphysema lung (Acute) Nicotine dependence, cigarettes, uncomplicated (Acute) Atherosclerosis (Acute) Gastric wall thickening (Acute) Stenosis of right internal carotid artery (Acute) Mass of upper lobe of right lung (Acute) Alcohol abuse (Chronic) Dehydration (Acute) Diarrhea (Acute) Hypomagnesemia (Chronic) B12 deficiency (Acute) Ascites (Acute) Chronic liver disease (Chronic) Weight loss, non-intentional (Acute) Macrocytic anemia (Acute) Early satiety (Acute) Folate deficiency (Acute) Hypomagnesemia (Acute) Hypokalemia (Acute) Leg pain (Acute) Cellulitis (Acute) Bilateral leg ulcer (Acute) Medical History Pulmonary nodule COPD (chronic obstructive pulmonary disease) Hypomagnesemia Cachexia Hepatic fibrosis Ulcer of lower extremity Hair loss Vitamin D deficiency Chest pain Gastroesophageal reflux disease Hx pulmonary embolism COPD (chronic obstructive pulmonary disease) Chronic vomiting Malnutrition Frequent falls Bilateral leg pain Pancreatitis Diastolic dysfunction Folate deficiency anemia Ascites Bilateral lower extremity edema Unintentional weight loss Alcohol abuse Tobacco dependence syndrome Tobacco abuse Surgical History punch biopsy, skin of ankle, right lateral (11/24/16) negative for malignancy, sparse inflammation and reactive blood vessels foot surgery (~2000) Ligation of fallopian tube (~1999) ENT/Nasal surgery (~2007) Family History Father Lung disease Cancer Lung Social History Smoking/Tobacco Use Status: Current every day Tobacco Type: cigarettes Tobacco: How many years used: 45 Quit status: considering quitting Second Hand Exposure: Yes Smoking risk assessment performed?: Yes Alcohol Intake: current Alcohol Intake frequency: 3 or more drinks per day Alcohol type: wine and hard liquor Counseling given: Yes Counseling provided: provider counseling Drug use: Rarely Substance use type: marijuana Details: daily drinker, presents to [facility] under the influence of ETOH, states I didn't have much, 3 or 4 lemon drop martinis and a couple, maybe three or four hot toddies Housing: apartment Current gender identity: female Do you feel safe at home: Yes Do you feel safe in your relationship?: Yes Additional Social history: Lives alone in studio in [facility], 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 Grew up in [facility], sisters in area. History History Para 0 Hx # Term Pregnancies Multiple births Hx # Pregnancies Ectopic pregnancies AB induced Hx Number of Living Children AB spontaneous
--- NOTE | 2023-09-28 12:37 | NUR.NOTE ---
compression stockings applied per MD order Nursing Note:
== END 2023-09-28 12:41 | disposition home or self-care (01) ==
PROVIDERS: Emergency Provider Student in an Organized Health Care Education/Training Program; PCP Nurse Practitioner Family
DX: R22.43 Localized swelling, mass and lump, lower limb, bilateral (principal); L03.116 Cellulitis of left lower limb; I50.9 Heart failure, unspecified; J44.9 Chronic obstructive pulmonary disease, unspecified; I73.9 Peripheral vascular disease, unspecified; F17.210 Nicotine dependence, cigarettes, uncomplicated; Z86.711 Personal history of pulmonary embolism
CPT/HCPCS: 99284; 93970; 99283

== ENCOUNTER 2023-10-04 20:41 | Inpatient (IN) | payer BC, SELFPAY ==
[2023-10-04] VITALS (25 sets, daily range): BP systolic 49–125; BP diastolic 34–67; PULSE 80–96; RESP 12–25; TEMP 36.6; O2SAT 87–97
[2023-10-04 21:54] LABS: Abs Immature Grans 0.05 10^3/uL (0.0-0.06); Absolute Basophil Count 0.03 10^3/uL (0.0-0.2); Absolute Eosinophil Count 0.03 10^3/uL (0.0-0.7); Absolute Lymphocyte Count 1.88 10^3/uL (1.2-3.4); Absolute Monocyte Count 0.48 10^3/uL (0.1-0.8); Absolute Neutrophil Count 3.05 10^3/uL (1.2-6.7); Basophils % 0.5 %; Eosinophils % 0.5 %; HGB 8.7 g/dL (11.2-15.7); Immature Grans % 0.9 %; Lymphocytes % 34.1 %; MCHC 36.3 % (32.0-36.0); MCV 102 fL (80-95); Monocytes % 8.7 %; Neutrophils % 55.3 %; Platelet Count 243 10^3/uL (130-400); RBC 2.35 10^6/uL (3.93-5.22); RDW 14.4 % (11.7-14.6); WBC 5.52 10^3/uL (4.4-10.8)
[2023-10-04 21:57] LABS: Lactate 4.2 mmol/L (0.6-1.4)
--- NOTE | 2023-10-04 22:00 | DI.RAD_ITS ---
Exam(s) XR PORTABLE CHEST AP EXAM: XR PORTABLE CHEST AP CLINICAL HISTORY: Cough, Sepsis TECHNIQUE: 2D digital imaging was performed of the chest. One image was obtained. An AP view was ob tained. COMPARISON: CT CT CHEST PE CTA from 04/06/2023 CR,XR XR PORTABLE CHEST AP from 07/05/2023 CR XR PORTABLE CHEST AP from 09/13/2023 FINDINGS: MEDIASTINUM: Normal. HEART: Normal. Mitral calcification is noted. PULMONARY VASCULATURE: Normal. Extensive atherosclerotic calcification is present. LUNGS: The lungs are hyperinflated suggesting underlying COPD. No focal consolidating infiltrates ar e seen. There is mild prominence of the interstitium diffusely which has a similar appearance to the prior examinations and the CT scan and is likely chronic. An acute interstitial edema or pneumonia cannot be entirely excluded. Please correlate clinically. PLEURAL SPACE: No pleural effusion or pneumothorax. BONE:Within normal limits for the patient's age. OTHER FINDINGS:The nipple shadows are present bilaterally. IMPRESSION: 1. Diffuse prominence of the interstitium in the lungs bilaterally. This has a similar appearance to prior examination and is likely chronic. An acute interstitial edema or pneumonia cannot be entirel y excluded. Please correlate clinically. 2. No focal consolidating infiltrates. 3. Findings of COPD. 4. Extensive atherosclerotic calcification is present. DATA REPOSITORY: RADIATION DOSE DELIVERED:
--- NOTE | 2023-10-04 22:00 | RT.EKG_ITS ---
APPROVED REPORT Exam: Resting ECG Reason for Exam: Hypotension Patient Location: E HR:86 bpm ECG Measurements Heart Rate 86 AXIS MA 150 P 72 QRSd 130 QRS 79 QT 462 T 63 QTc 551 Conclusion Sinus rhythm...normal P axis, V-rate 60- 99 Atrial premature complexes...SV complexes w/ short R-R intvls Right bundle branch block...QRSd>120, terminal axis(90,270) Probable anterolateral infarct, old...Q>35mS, abnrm ST-T, V2-V6,I,aVL There are no significant changes compared to prior EKG performed on 09/13/2023 at 20:02.
[2023-10-04 22:12] LABS: ALT 16 U/L (14-59); AST 36 U/L (15-37); Albumin 2.2 g/dL (3.4-5.0); Alkaline Phosphatase 130 U/L (46-116); Anion Gap 11.6 mmol/L (3-11); BUN 6 mg/dL (7-18); Bilirubin, Total 0.3 mg/dL (0.2-1.0); CO2 29.4 mmol/L (21.0-32.0); CREATININE 0.5 mg/dL (0.55-1.02); Calcium 7.2 mg/dL (8.5-10.1); Chloride 91 mmol/L (98-107); Estimated GFR 105.98 (mL/min/1.73m2); Glucose 70 mg/dL (74-106); Sodium 132 mmol/L (136-145); Total Protein 5.4 g/dL (6.4-8.2)
--- NOTE | 2023-10-04 22:14 | ED.GENADUL_ITS ---
Discharge Plan Discharge Details Chief Complaint: Cellulitis Primary Care Provider: MARIANO KEARNEY ED Provider: Whitley Brown Home Meds and New Rx's Prescriptions: No Action ipratropium-albuterol 0.5 mg-3 mg(2.5 mg base)/3 mL solution for nebulization 3 ml inhalation Q4H PRN (Reason: wheezing) Qty: 540 8RF albuterol sulfate 90 mcg/actuation HFA aerosol inhaler 2 puff inhalation Q6H PRN (Reason: shortness of breath or wheezing) Qty: 8.5 12RF thiamine HCl (vitamin B1) 250 mg tablet 250 mg PO DAILY gabapentin 300 mg capsule 300 mg PO TID Stiolto Respimat 2.5-2.5 mcg/actuation mist 2 puff inhalation Q24H Qty: 4 12RF loperamide [Imodium A-D] 1 mg/7.5 mL liquid 2 mg PO Q1-4H PRNQty: 120 0RF Rx Instructions: administer after each loose stool until symptoms controlled; do not exceed 16 mg per 24 hrs furosemide 20 mg Tablet 10 mg PO BID@0830,1600 Qty: 20 0RF multivitamin [Multiple Vitamins] Tablet 1 tab PO DAILY Qty: 30 0RF magnesium 250 mg tablet 250 mg PO DAILY Qty: 20 0RF ibuprofen 600 mg tablet 600 mg PO TID PRNQty: 30 0RF omeprazole 40 mg capsule,delayed release(DR/EC) 40 mg PO DAILY HPI General Mode of arrival: EMS . Date/Time Provider Initiated Documentation: 10/04/23 21:10 . Limitations to Documentation: altered mental status (Appears to be intoxicated and) . Information obtained by: patient, EMS, RN notes reviewed and old records reviewed . HPI Narrative: 53-year-old female with a history of bilateral lower extremity cellulitis presents to the ER with a chief complaint of leg pain, fatigue hypotension blood pressure per EMS is 89/57, patient took Tylenol around 3 PM this afternoon. Patient does have a history of low blood pressure she is 49 kg. She does endorse chills. PastmedicalhistoryincludespancreatitishypomagnesemiaCOPDsheisacurrentsmoker since, folate deficiency, ascites Related Data Home Medications Medication Instructions Recorded Confirmed multivitamin (Multiple Vitamins 1 tab PO DAILY #30 tabs 08/13/20 10/04/23 tablet) albuterol sulfate 90 mcg/actuation 2 puff inhalation Q6H PRN 01/18/22 10/04/23 aerosol inhaler shortness of breath or wheezing #8.5 grams magnesium 250 mg tablet 250 mg PO DAILY #20 tabs 11/09/22 10/04/23 thiamine HCl (vitamin B1) 250 mg 250 mg PO DAILY 04/19/23 10/04/23 tablet tiotropium 2.5 mcg-olodaterol 2.5 2 puff inhalation Q24H #4 grams 05/04/23 10/04/23 mcg/actuation mist for inhalation (Stiolto Respimat) ipratropium 0.5 mg-albuterol 3 mg 3 ml inhalation Q4H PRN wheezing 05/10/23 10/04/23 (2.5 mg base)/3 mL nebulization #540 mL soln ibuprofen 600 mg tablet 600 mg PO TID PRN #30 tabs 05/20/23 10/04/23 gabapentin 300 mg capsule 300 mg PO TID 06/06/23 10/04/23 omeprazole 40 mg capsule,delayed 40 mg PO DAILY 06/12/23 10/04/23 release loperamide 1 mg/7.5 mL oral liquid 2 mg (15 mL) PO Q1-4H PRN #120 mL 08/02/23 10/04/23 (Imodium A-D) furosemide 20 mg tablet 10 mg (1/2 x 20 mg) PO 09/22/23 09/24/23 BID@0830,1600 #20 tabs Previous Rx's Medication Instructions Recorded multivitamin (Multiple Vitamins 1 tab PO DAILY #30 tabs 08/13/20 tablet) albuterol sulfate 90 mcg/actuation 2 puff inhalation Q6H PRN 01/18/22 aerosol inhaler shortness of breath or wheezing #8.5 grams magnesium 250 mg tablet 250 mg PO DAILY #20 tabs 11/09/22 tiotropium 2.5 mcg-olodaterol 2.5 2 puff inhalation Q24H #4 grams 05/04/23 mcg/actuation mist for inhalation (Stiolto Respimat) ipratropium 0.5 mg-albuterol 3 mg 3 ml inhalation Q4H PRN wheezing 05/10/23 (2.5 mg base)/3 mL nebulization #540 mL soln ibuprofen 600 mg tablet 600 mg PO TID PRN #30 tabs 05/20/23 loperamide 1 mg/7.5 mL oral liquid 2 mg (15 mL) PO Q1-4H PRN #120 mL 08/02/23 (Imodium A-D) furosemide 20 mg tablet 10 mg (1/2 x 20 mg) PO 09/22/23 BID@0830,1600 #20 tabs Allergies Allergy/AdvReac Type Severity Reaction Status Date / Time bacitracin Allergy Mild localized Verified 09/28/23 10:10 [From Neosporin redness ([id number])] neomycin Allergy Mild localized Verified 09/28/23 10:10 [From Neosporin redness ([id number])] polymyxin B Allergy Mild localized Verified 09/28/23 10:10 [From Neosporin redness ([id number])] General Stated Complaint: Cellulitis RAHEEM: 3 Review of Systems All systems reviewed & are unremarkable except as noted in HPI and below Musculoskeletal Musculoskeletal: Reports as per HPI Comments: Bilateral leg pain, warmth redness, swelling Integumentary/Breasts Skin/Breast: Reports erythema, Reports skin pain and Reports skin swelling Exam Narrative Exam Narrative: Constitutional: Slurred speech, appears intoxicated,. Appears stated age. Very thin body habitus. Head: Normocephalic, no trauma. Eyes: Pupils PERRL, Red reflex noted, pupils sluggish, EOM's intact. Eyelids symmetrical without lesions, discharge, or swelling. ENT: Bilateral TM's WNL, External ear normal to inspection, no mastoid TTP, swelling, or erythema, Nasal turbinates WNL, no nasal discharge. Normal dentition, Posterior pharynx WNL, no exudate. Chest: RRR, Normal S1, S2, distal pulses intact. Resp: Lungs clear to auscultation bilaterally, no wheezes, rales, or rhonchi. Abdomen: Soft, non-distended, Normoactive bowel sounds all 4 quads. Musculoskeletal: Unable to assess gait, bilateral lower extremities noted with redness extending up to mid calf bilaterally, warm 2+ edema noted. Skin: Appears to be acute on chronic PVD, capillary refill less than 2 sec. Neurologic: Alert and oriented x 3. Motor: No deficits noted. Sensory: Intact bilaterally all 4 extremities. Course Vital Signs Vital signs: Vital Signs Temperature 36.6 C 10/04/23 20:41 Pulse 90 10/04/23 20:41 Respiratory Rate 18 10/04/23 20:41 Blood Pressure 125/67 10/04/23 20:41 Pulse Oximetry 97 10/04/23 20:41 Temperature 36.6 C 10/04/23 21:10 Temperature Source Oral 10/04/23 21:10 Pulse 85 10/04/23 21:15 Pulse 84 10/04/23 21:15 Respiratory Rate 18 10/04/23 21:15 Respiratory Effort Normal, Non-Labored 10/04/23 20:46 Blood Pressure 85/45 L 10/04/23 21:15 Blood Pressure Mean 58 10/04/23 21:15 Blood Pressure Position Supine 10/04/23 20:41 Pulse Oximetry 95 10/04/23 21:15 Oxygen Delivery Method Room Air 10/04/23 21:10 Oxygen Flow Rate 0 10/04/23 20:41 Pain Level 10 10/04/23 20:41 Lab/Test Results Lab/Test Results: 10/04/23 21:58 Blood Blood Culture - Pending 10/04/23 21:58 Blood Blood Culture - Pending Laboratory Tests Range/Units 10/04/23 10/04/23 21:23 21:47 WBC Cancelled 5.52 RBC Cancelled 2.35 L Hgb Cancelled 8.7 L Hct Cancelled 24.0 L MCV Cancelled 102 H MCH Cancelled 37.0 H MCHC Cancelled 36.3 H RDW Cancelled 14.4 Plt Count Cancelled 243 MPV Cancelled 10.0 Immature Gran % Cancelled 0.9 Neutrophils % Cancelled 55.3 Band Neutrophils % Cancelled Lymphocytes % Cancelled 34.1 Atypical Lymphs % Cancelled Monocytes % Cancelled 8.7 Eosinophils % Cancelled 0.5 Basophils % Cancelled 0.5 Metamyelocytes % Cancelled Myelocytes % Cancelled Promyelocytes % Cancelled Other Cells % Cancelled Nucleated RBC % Cancelled 0.0 Absolute Neutrophils Cancelled 3.05 Absolute Lymphocytes Cancelled 1.88 Absolute Monocytes Cancelled 0.48 Absolute Eosinophils Cancelled 0.03 Absolute Basophils Cancelled 0.03 RBC Morphology Cancelled Polychromasia Cancelled Hypochromasia Cancelled Poikilocytosis Cancelled Basophilic Stippling Cancelled Anisocytosis Cancelled Microcytosis Cancelled Macrocytosis Cancelled Spherocytes Cancelled Tear Drop Cells Cancelled Ovalocytes Cancelled Stomatocytes Cancelled [place] Bodies Cancelled [place] Cells/Echinocytes Cancelled Acanthocytes (Spur) Cancelled Schistocytes Cancelled ESR Cancelled VBG Lactate Cancelled 4.2 H* Sodium Cancelled Potassium Cancelled Chloride Cancelled Carbon Dioxide Cancelled Anion Gap Cancelled BUN Cancelled Creatinine Cancelled Est GFR (CKD-EPI 2020) Cancelled Glucose Cancelled Calcium Cancelled Magnesium Cancelled Total Bilirubin Cancelled AST Cancelled ALT Cancelled Alkaline Phosphatase Cancelled Troponin I Cancelled C-Reactive Protein Cancelled Total Protein Cancelled Albumin Cancelled Medical Decision Making 53-year-old female with a history of bilateral lower extremity cellulitis presents to the ER with a chief complaint of leg pain, fatigue hypotension blood pressure per EMS is 89/57, patient took Tylenol around 3 PM this afternoon. Patient does have a history of low blood pressure she is 49 kg. She does endorse chills. PastmedicalhistoryincludespancreatitishypomagnesemiaCOPDsheisacurrentsmoker since, folate deficiency, ascites. Patient was seen here on 09/28/2023 and was placed on cephalexin 500 mg twice daily x 7 days prior to that she had received a course of Augmentin twice daily x 7 days. Previous blood cultures have shown no growth. Septic workup ordered including CBC CMP blood cultures x 2 normal lactate PT PTT , type and screen, urinalysis EKG serial troponin proBNP alcohol, LR 500 cc bolus 500 cc an hour. CBC shows red blood cells 2.35, hemoglobin 8.7 hematocrit 24.0, lactate 4.2, sodium 132, potassium 2.0, glucose 70, urinalysis 2. alk phos 130 proBNP 1140, Mag is pending at this time, Differential diagnosis includes but not limited to cellulitis, sepsis, peripheral vascular disease, GI bleed Blood pressure at this time is improved to 109/59. Patient is resting in bed. Magnesium is 1.2, and will alcohol 198.3 2 g magnesium IV piggyback ordered, 10 mill equivalents of potassium IV piggyback ordered 40 mill equivalents of p.o. potassium liquid ordered. Will perform digital rectal exam, to rule out occult blood and plan for admission for hypokalemia, Hypomagnesemia, and bilateral LE cellulitis. Inadequate sample obtained for guaiac stool. Faintly positive. No gross blood. Urine obtained with in and out catheter. [id number]: Hospitalist paged. [id number]: Spoke with Dr. Downey regarding patient case and details he agrees to accept patient for admission for hypokalemia hypomagnesemia bilateral lower extremity cellulitis. Will place the holding orders. This text was generated using [employer] system, please disregard any oddities of phrase or misspellings. Medical Records Medical records reviewed: Yes I reviewed the patient's medical records. Medical records narrative: CT from 08-16-23: EXAM: CT ABD AORTA CTA W RUNOFF CLINICAL HISTORY: leg swelling ? arterial insuff. TECHNIQUE: Imaging Protocol: Axial CT angiography was performed with multi- slice acquisition and multi-planar and/or 3D reconstructions. CONTRAST MATERIAL: Intravenous: Omnipaque 350 Contrast volume:structured data in ml Contrast route:IV - IMPRESSION: Severe aortic calcification. Severe stenosis at origin of celiac axis. Significant stenosis at the origin of the SMA and bilateral renal arteries. Less than 50 percent stenosis of the common iliac arteries at the bifurcation. Focal calcific plaque causing greater than 50 percent stenosis at the bifurcation of the right common femoral artery and proximal superficial femoral artery.. Imaging Data Radiologic Study: Imaging: X-Ray Radiologist's impression: Portable CXR: Vrad report IMPRESSION: 1. Vascular calcification consistent with atherosclerotic cerebrovascular, peripheral vascular disease involving the carotid, subclavian arteries and likely the transverse thoracic aorta. 2. There are diffuse interstitial infiltrates present. This may represent cardiogenic versus noncardiogenic edema. An acute inflammatory process and/or infectious process/pneumonia are not excluded. 3. Blunting of left costophrenic angle may represent a small pleural effusion. 4. The lungs are hyperinflated, consistent with underlying small airways disease. Dictated and Authenticated by: All Avalos MD. Lab Data Lab results reviewed: Yes I reviewed the patient's lab results. Labs: 10/04/23 22:40 Blood Blood Culture - Pending 10/04/23 22:15 Blood Blood Culture - Pending Laboratory Tests Range/Units 10/04/23 10/04/23 10/04/23 21:23 21:47 22:15 WBC Cancelled 5.52 RBC Cancelled 2.35 L Hgb Cancelled 8.7 L Hct Cancelled 24.0 L MCV Cancelled 102 H MCH Cancelled 37.0 H MCHC Cancelled 36.3 H RDW Cancelled 14.4 Plt Count Cancelled 243 MPV Cancelled 10.0 Immature Gran % Cancelled 0.9 Neutrophils % Cancelled 55.3 Band Neutrophils % Cancelled Lymphocytes % Cancelled 34.1 Atypical Lymphs % Cancelled Monocytes % Cancelled 8.7 Eosinophils % Cancelled 0.5 Basophils % Cancelled 0.5 Metamyelocytes % Cancelled Myelocytes % Cancelled Promyelocytes % Cancelled Other Cells % Cancelled Nucleated RBC % Cancelled 0.0 Absolute Neutrophils Cancelled 3.05 Absolute Lymphocytes Cancelled 1.88 Absolute Monocytes Cancelled 0.48 Absolute Eosinophils Cancelled 0.03 Absolute Basophils Cancelled 0.03 RBC Morphology Cancelled Polychromasia Cancelled Hypochromasia Cancelled Poikilocytosis Cancelled Basophilic Stippling Cancelled Anisocytosis Cancelled Microcytosis Cancelled Macrocytosis Cancelled Spherocytes Cancelled Tear Drop Cells Cancelled Ovalocytes Cancelled Stomatocytes Cancelled [place] Bodies Cancelled [place] Cells/Echinocytes Cancelled Acanthocytes (Spur) Cancelled Schistocytes Cancelled ESR Cancelled PT (9.1-11.1) sec 11.5 H INR (0.9-1.1) 1.2 H APTT (23.6-32.8) sec 26.0 VBG Lactate Cancelled 4.2 H* Sodium Cancelled 132 L Potassium Cancelled 2.0 L* Chloride Cancelled 91 L Carbon Dioxide Cancelled 29.4 Anion Gap Cancelled 11.6 H BUN Cancelled 6 L Creatinine Cancelled 0.5 L Est GFR (CKD-EPI 2020) Cancelled 105.98 Glucose Cancelled 70 L Calcium Cancelled 7.2 L Magnesium Cancelled 1.2 L Total Bilirubin Cancelled 0.3 AST Cancelled 36 ALT Cancelled 16 Alkaline Phosphatase Cancelled 130 H Troponin I Cancelled < 50 C-Reactive Protein Cancelled NT-Pro-B Natriuret Pep (<300) pg/mL 1140 H Total Protein Cancelled 5.4 L Albumin Cancelled 2.2 L Ethyl Alcohol (<10) mg/dL 198.3 H ABO/Rh A Positive Antibody Screen NEGATIVE Quality:SDOH Health Related Social Needs: Health related social needs transpo insecurity PFSH All Active Problems Edema, peripheral (Acute) Cellulitis of left leg (Acute) Ambulatory dysfunction (Acute) Edema of both lower legs (Acute) Congestive heart failure (Chronic) COPD exacerbation (Acute) Cellulitis (Acute) Severe sepsis (Acute) Prolonged QT interval (Acute) Respiratory failure (Acute) Leg pain (Acute) Sepsis (Acute) Shock (Acute) Hypomagnesemia (Acute) Hypokalemia (Acute) Difficulty walking (Acute) PVD (peripheral vascular disease) (Chronic) Atherosclerosis of aorta (Acute) Leg swelling (Acute) Acute hypokalemia (Acute) Hypoglycemia (Acute) Alcoholic ketoacidosis (Acute) Laceration of scalp (Acute) Fall (Acute) Chronic left hip pain (Acute) Contusion of hip (Acute) Closed intertrochanteric fracture of left hip (Acute) s/p IMN fixation (05/18/23) Smoker (Acute) Closed fracture of left hip (Acute) Fall (Acute) Alcohol intoxication (Acute) Anxiety (Chronic) Cavitary lesion of lung (Acute) H/O ETOH abuse (Acute) Tobacco use disorder (Acute 01/28/14) Pleural effusion (Acute) Hypomagnesemia (Acute) Fluid overload (Acute) Chest pain due to GERD (Acute) Chest wall muscle strain (Acute) Hypokalemia (Acute) COPD exacerbation (Acute) Emphysema lung (Acute) Nicotine dependence, cigarettes, uncomplicated (Acute) Atherosclerosis (Acute) Gastric wall thickening (Acute) Stenosis of right internal carotid artery (Acute) Mass of upper lobe of right lung (Acute) Alcohol abuse (Chronic) Dehydration (Acute) Diarrhea (Acute) Hypomagnesemia (Chronic) B12 deficiency (Acute) Ascites (Acute) Chronic liver disease (Chronic) Weight loss, non-intentional (Acute) Macrocytic anemia (Acute) Early satiety (Acute) Folate deficiency (Acute) Hypomagnesemia (Acute) Hypokalemia (Acute) Leg pain (Acute) Cellulitis (Acute) Bilateral leg ulcer (Acute) Medical History Pulmonary nodule COPD (chronic obstructive pulmonary disease) Hypomagnesemia Cachexia Hepatic fibrosis Ulcer of lower extremity Hair loss Vitamin D deficiency Chest pain Gastroesophageal reflux disease Hx pulmonary embolism COPD (chronic obstructive pulmonary disease) Chronic vomiting Malnutrition Frequent falls Bilateral leg pain Pancreatitis Diastolic dysfunction Folate deficiency anemia Ascites Bilateral lower extremity edema Unintentional weight loss Alcohol abuse Tobacco dependence syndrome Tobacco abuse Surgical History punch biopsy, skin of ankle, right lateral (11/24/16) negative for malignancy, sparse inflammation and reactive blood vessels foot surgery (~2000) Ligation of fallopian tube (~1999) ENT/Nasal surgery (~2007) Family History Father Lung disease Cancer Lung Social History Smoking/Tobacco Use Status: Current every day Tobacco Type: cigarettes Tobacco: How many years used: 45 Quit status: considering quitting Second Hand Exposure: Yes Smoking risk assessment performed?: Yes Alcohol Intake: current Alcohol Intake frequency: 3 or more drinks per day Alcohol type: wine and hard liquor Counseling given: Yes Counseling provided: provider counseling Drug use: Occasionally Substance use type: marijuana Details: daily drinker, presents to [facility] under the influence of ETOH, states I had 4 lemon drop martinis today 10/04/23 Housing: apartment Current gender identity: female Do you feel safe at home: Yes Do you feel safe in your relationship?: Yes Additional Social history: Lives alone in studio in [facility], 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 Grew up in [facility], sisters in area. History History Para 0 Hx # Term Pregnancies Multiple births Hx # Pregnancies Ectopic pregnancies AB induced Hx Number of Living Children AB spontaneous PAWSS Have you Been Recently Intoxicated or Drunk Within the Last 30 days?: Yes Have you Ever Experienced Previous Episodes of Alcohol Withdrawal?: No Have you ever Experienced Withdrawal Seizures?: No Have you ever Experienced Delirium Tremens(DT)s?: No Have you ever undergone Alcohol Rehabilitation Treatment (i.e, inpt ot outpatient treatment programs)?: No Have you ever Experienced Blackouts?: No Have you ever Combined Alcohol with other Downers within the last 90 days?: No Have you ever Combined Alcohol with any other Substance of Abuse during the last 90 days?: No Positive Blood Alcohol level on Presentation? [PCS.BAL]: No Evidence of Increased Autonomic Activity (i.e. HR>120, tremor, sweating, agitation, nausea)?: No Result: 1
[2023-10-04 22:21] LABS: NT-proBNP 1140 pg/mL (<300)
[2023-10-04 22:22] LABS: Troponin I < 50 ng/L (< or =60)
[2023-10-04 22:31] LABS: Magnesium 1.2 mg/dL (1.8-2.4)
[2023-10-04 22:33] LABS: ETHANOL BLOOD 198.3 mg/dL (<10)
[2023-10-04 22:39] LABS: INR 1.2 (0.9-1.1); Prothrombin Time 11.5 sec (9.1-11.1)
[2023-10-04] MEDS: Lactated Ringers 1,000 ML 500 ML IV (22:42)
[2023-10-04] MEDS: Potassium Chloride Liquid 20 MEQ PKT 40 MEQ PO (22:55)
[2023-10-04] MEDS: MAGNESIUM SULFATE 2 GM/50 ML BAG IVINF (22:55)
[2023-10-04] MEDS: POTASSIUM CHLORIDE 10 MEQ/100 ML BAG 100 MEQ IVINF (22:56)
--- NOTE | 2023-10-04 23:03 | DI.VRAD_ITS ---
PROCEDURE INFORMATION: Exam: XR Chest Exam date and time: 10/04/2023 10:25 PM Age: 63 years old Clinical indication: Cough and other: Sepsis; Patient HX: Cough, sepsis TECHNIQUE: Imaging protocol: Radiologic exam of the chest. Views: 1 view. COMPARISON: CT CHEST PE ABD PELVIS W 09/13/2023 8:16 PM FINDINGS: Lungs: There are diffuse interstitial infiltrates present. This may represent cardiogenic versus noncardiogenic edema. An acute inflammatory process and/or infectious process/pneumonia are not excluded. Moderate centrilobular emphysematous changes are present. The lungs are hyperinflated, consistent with underlying small airways disease. Pleural spaces: There is no evidence of pneumothorax. Blunting of left costophrenic angle may represent a small pleural effusion. Heart/Mediastinum: There is moderate cardiomegaly. Likely mitral valvular calcification. Vasculature: Vascular calcification consistent with atherosclerotic cerebrovascular, peripheral vascular disease involving the carotid, subclavian arteries and likely the transverse thoracic aorta. The aorta demonstrates moderate atherosclerotic calcification. Bones/joints: The skeletal structures and soft tissues show no evidence of fracture or other acute processes. Soft tissues: Bilateral nipple shadows present. The soft tissues of the extrathoracic region are unremarkable. IMPRESSION: 1. Vascular calcification consistent with atherosclerotic cerebrovascular, peripheral vascular disease involving the carotid, subclavian arteries and likely the transverse thoracic aorta. 2. There are diffuse interstitial infiltrates present. This may represent cardiogenic versus noncardiogenic edema. An acute inflammatory process and/or infectious process/pneumonia are not excluded. 3. Blunting of left costophrenic angle may represent a small pleural effusion. 4. The lungs are hyperinflated, consistent with underlying small airways disease. Dictated and Authenticated by: All Avalos MD. Ordering:ADRIAN Arreaga MD
[2023-10-04 23:23] LABS: ESR < 1 mm/hr (0-30)
[2023-10-04 23:29] LABS: C-Reactive Protein < 0.50 mg/dL (<or=0.5)
[2023-10-04 23:47] LABS: Bilirubin Negative (Negative); Blood Negative (Negative); Clarity Clear (Clear); Glucose Negative (Negative); Ketones Negative (Negative); Leukocyte Esterase Negative (Negative); Nitrite Negative (Negative); Specific Gravity <= 1.005 (1.005-1.025); Urobilinogen 0.2 mg/dL (Up to 0.2)
[2023-10-05] VITALS (119 sets, daily range): BP systolic 63–154; BP diastolic 38–95; PULSE 70–111; RESP 7–31; TEMP 36.6–37.1; O2SAT 81–100
[2023-10-05] MEDS: ceFAZolin 1 GM/50 ML BAG IVPB (00:04)
[2023-10-05 00:09] LABS: Procalcitonin 0.4 ng/mL
--- NOTE | 2023-10-05 00:51 | W.PM.HP.N ---
Date of service: 10/05/23 Time of Service: 00:57 Assessment and Plan Assessment and plan (1) Edema of both lower legs: Status: Acute Assessment and plan: I am not convinced this is cellulitis. More c/w mixed peripheral artery disease and venous stasis dermatitis in the way it looks with symmetric appearance and edema. 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 Normal procalcitonin and WBC, nl ESR and CRP all speak against significant infection However with lactate up and soft BP, will cover for infection. Was given cefazolin, expand to cefepime until she improves. Not c/w staph infection, MRSA unlikely, defer vanco She states TEDs feel good when on but painful to place (2) Hypotension: Status: Resolved Assessment and plan: BP has run on low end in many admissions. She may be dehydrated with new furosemide and did respond to 500ml bolus in ED, will give another. Exam not c/w cardiogenic shock as she is warm, she had echo 2 weeks ago that was normal. Concern for infection as above, covering with cefepime. (3) Hypokalemia: Status: Acute Assessment and plan: Replaced in the ED, follow and given additional as needed. Will stop the furosemide, see above. (4) Alcohol abuse: Status: Chronic Assessment and plan: She has ongoing alcohol use disorder at the root of her medical conditions, with associate poor nutritional status. Encouraged to seek sobriety, but she is resistant to the idea that alcohol is her problem. When she is ready, review medical and behavioral options for rehabilitation (5) Macrocytic anemia: Status: Acute Assessment and plan: Associated with alcohol. B12 and folate have been low in the past but recently normal. Monitor to make sure not dropping as report of faintly positive guiac in ED. (6) Hypomagnesemia: Status: Acute Assessment and plan: Replaced in ED 2g. She may need more, follow with AM labs. (7) Alcohol intoxication: Status: Acute Assessment and plan: monitor for withdrawal, but she does not have a known history of severe withdrawal. Qualifiers: Complication of substance-induced condition: uncomplicated Qualified Code(s): F10.920 - Alcohol use, unspecified with intoxication, uncomplicated (8) COPD (chronic obstructive pulmonary disease): Assessment and plan: Stable clinically. Question of diffuse edema vs infiltrates on CXR but continue outpatient inhalers. (9) Chronic liver disease: Status: Chronic Assessment and plan: Labs are not c/w advanced fibrosis/cirrhosis on recent labs and imaging, though she is certainly at risk. Monitor liver function. (10) Tobacco use disorder: Status: Acute Assessment and plan: NRT, counseling (11) PVD (peripheral vascular disease): Status: Chronic Assessment and plan: PAD significant on her imaging and likely contributing to her leg pain. This is not critical however as cap refill is good. Smoking cessation emphasized. She may benefit from ASA 81mg and high intensity statin. (12) DVT prophylaxis: Status: Resolved Assessment and plan: report of faint guiac positive stool. Unfortunately not tolerating SCDs with leg pain. Defer, consider LMWH if hemoglobin stable. Otherwise SCDs on arms? History of Present Illness History of Present Illness Chief Complaint: leg swelling Narrative: 63 yo F with chronic active daily alcohol abuse, h/o HFpEF, COPD, and PAD, who was admitted 09/20- for inadequately treated LE cellulitis and sent home to finish another week of amox/clavulonate and linezolid as well as new furosemide is presenting with increased lower extremity pain and general fatigue over the last few days. EMS reports BP was low at 89/57 when first evaluated. She was brought to the ED. She states that both legs are constantly aching, about the same on both sides. No sudden change, but she felt worse today overall. APAP doesn't help much. She is taking gabapentin, thinks helps some. She denies fevers but she does feel a bit chilled. She has been eating and drinking non-alcoholic liquids every day. No n/v or diarrhea. She does have what she refers to as a smokers cough, but no recent change. States she drinks 3 martinis a night and does not want to stop. She was admitted 09/20- as above and sent home on amox/clav and linezolid. She was seen 09/27 in the ED and diagnosed with LE cellulitis and given cephalexin. It isn't clear that she got the linazolid as per 09/27 notes she was just taking amox/clav. She isn't sure any of the antibiotics helped her redness and pain. Review of Systems All systems reviewed & are unremarkable except as noted in HPI and below PFSH All Active Problems Edema, peripheral (Acute) Cellulitis of left leg (Acute) Ambulatory dysfunction (Acute) Edema of both lower legs (Acute) Congestive heart failure (Chronic) COPD exacerbation (Acute) Cellulitis (Acute) Severe sepsis (Acute) Prolonged QT interval (Acute) Respiratory failure (Acute) Leg pain (Acute) Sepsis (Acute) Shock (Acute) Hypomagnesemia (Acute) Hypokalemia (Acute) Difficulty walking (Acute) PVD (peripheral vascular disease) (Chronic) Atherosclerosis of aorta (Acute) Leg swelling (Acute) Acute hypokalemia (Acute) Hypoglycemia (Acute) Alcoholic ketoacidosis (Acute) Laceration of scalp (Acute) Fall (Acute) Chronic left hip pain (Acute) Contusion of hip (Acute) Closed intertrochanteric fracture of left hip (Acute) s/p IMN fixation (05/18/23) Smoker (Acute) Closed fracture of left hip (Acute) Fall (Acute) Alcohol intoxication (Acute) Anxiety (Chronic) Cavitary lesion of lung (Acute) H/O ETOH abuse (Acute) Tobacco use disorder (Acute 01/28/14) Pleural effusion (Acute) Hypomagnesemia (Acute) Fluid overload (Acute) Chest pain due to GERD (Acute) Chest wall muscle strain (Acute) Hypokalemia (Acute) Emphysema lung (Acute) Nicotine dependence, cigarettes, uncomplicated (Acute) Atherosclerosis (Acute) Gastric wall thickening (Acute) Stenosis of right internal carotid artery (Acute) Mass of upper lobe of right lung (Acute) Alcohol abuse (Chronic) Dehydration (Acute) Diarrhea (Acute) Hypomagnesemia (Chronic) B12 deficiency (Acute) Ascites (Acute) Chronic liver disease (Chronic) Weight loss, non-intentional (Acute) Macrocytic anemia (Acute) Early satiety (Acute) Folate deficiency (Acute) Hypomagnesemia (Acute) Hypokalemia (Acute) Leg pain (Acute) Cellulitis (Acute) Bilateral leg ulcer (Acute) Medical History Pulmonary nodule COPD (chronic obstructive pulmonary disease) Hypomagnesemia Cachexia Hepatic fibrosis Ulcer of lower extremity Hair loss Vitamin D deficiency Chest pain Gastroesophageal reflux disease Hx pulmonary embolism COPD (chronic obstructive pulmonary disease) Chronic vomiting Malnutrition Frequent falls Bilateral leg pain Pancreatitis Diastolic dysfunction Folate deficiency anemia Ascites Bilateral lower extremity edema Unintentional weight loss Alcohol abuse Tobacco dependence syndrome Tobacco abuse Surgical History punch biopsy, skin of ankle, right lateral (11/24/16) negative for malignancy, sparse inflammation and reactive blood vessels foot surgery (~2000) Ligation of fallopian tube (~1999) ENT/Nasal surgery (~2007) Family History Father Lung disease Cancer Lung Social History Smoking/Tobacco Use Status: Current every day Tobacco Type: cigarettes Tobacco: How many years used: 45 Quit status: considering quitting Second Hand Exposure: Yes Smoking risk assessment performed?: Yes Alcohol Intake: current Alcohol Intake frequency: 3 or more drinks per day Alcohol type: wine and hard liquor Counseling given: Yes Counseling provided: provider counseling Drug use: Occasionally Substance use type: marijuana Details: daily drinker, presents to [facility] under the influence of ETOH, states I had 4 lemon drop martinis today 10/04/23 Housing: apartment Current gender identity: female Do you feel safe at home: Yes Do you feel safe in your relationship?: Yes Additional Social history: Lives alone in studio in [facility], 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 Grew up in [facility], sisters in area. History History Para 0 Hx # Term Pregnancies Multiple births Hx # Pregnancies Ectopic pregnancies AB induced Hx Number of Living Children AB spontaneous Meds Allergies and Home Medications Allergies Allergy/AdvReac Type Severity Reaction Status Date / Time bacitracin Allergy Mild localized Verified 09/28/23 10:10 [From Neosporin redness ([id number])] neomycin Allergy Mild localized Verified 09/28/23 10:10 [From Neosporin redness ([id number])] polymyxin B Allergy Mild localized Verified 09/28/23 10:10 [From Neosporin redness ([id number])] Home Medications Medication Instructions Recorded Confirmed Type multivitamin (Multiple Vitamins 1 tab PO DAILY #30 tabs 08/13/20 10/04/23 Rx tablet) albuterol sulfate 90 mcg/actuation 2 puff inhalation Q6H PRN 01/18/22 10/04/23 Rx aerosol inhaler shortness of breath or wheezing #8.5 grams magnesium 250 mg tablet 250 mg PO DAILY #20 tabs 11/09/22 10/04/23 Rx thiamine HCl (vitamin B1) 250 mg 250 mg PO DAILY 04/19/23 10/04/23 History tablet tiotropium 2.5 mcg-olodaterol 2.5 2 puff inhalation Q24H #4 grams 05/04/23 10/04/23 Rx mcg/actuation mist for inhalation (Stiolto Respimat) ipratropium 0.5 mg-albuterol 3 mg 3 ml inhalation Q4H PRN wheezing 05/10/23 10/04/23 Rx (2.5 mg base)/3 mL nebulization #540 mL soln ibuprofen 600 mg tablet 600 mg PO TID PRN #30 tabs 05/20/23 10/04/23 Rx gabapentin 300 mg capsule 300 mg PO TID 06/06/23 10/04/23 History omeprazole 40 mg capsule,delayed 40 mg PO DAILY 06/12/23 10/04/23 History release loperamide 1 mg/7.5 mL oral liquid 2 mg (15 mL) PO Q1-4H PRN #120 mL 08/02/23 10/04/23 Rx (Imodium A-D) furosemide 20 mg tablet 10 mg (1/2 x 20 mg) PO 09/22/23 09/24/23 Rx BID@0830,1600 #20 tabs Exam Narrative Exam Narrative: GEN: Alert and oriented x 4, uncomfortable but cooperative, able to give linear history. HEENT: Head atraumatic. Conjunctiva clear, no icterus. PEERL, EOMI. no rhinorrhea. MMM, OP benign. Neck is supple with no masses or lymphadenopathy, trachea midline LUNGS: CTAB but diffusely deminished. I do not appreciate any rales or wheezing. Normal effort, slight cough noted CV: RRR. No murmur, gallops, or rubs. cap refill in toes <1sec ABD: +BS, soft, NT/ND, no fluid wave or hepatosplenomegaly. EXT: no cyanosis, clubbing. 1+ bilateral pitting edema to mid shins MSK: No joint redness or swelling. Diffuse exquisite tenderness of pink area of lower legs NEURO: CN 2-12 grossly intact. Intact movement of 4 extremities. Normal speech and coordination, no tremor. DTRs 1+ john patella john SKIN: Melasma of face. Dry and warm. No angiomata or large veins noted. No rashes or open wounds. Dark bruise left lidno. Skin on both lower legs from calves down pink. Wrinkling of skin of lower legs (looks like skin was previously more distended). PSYCH: normal mood and affect, normal thought process, poor insight, no hallucinations Results Imaging Chest x-ray: report reviewed (1. Vascular calcification consistent with atherosclerotic cerebrovascular, peripheral vascular disease involving the carotid, subclavian arteries and likely the transverse thoracic aorta. 2. There are diffuse interstitial infiltrates present. This may represent cardiogenic versus noncardioge) EKG: report reviewed and image reviewed (sinus rhythm, nl axis. PACs, RBBB, no change form 09/13/23) Labs 10/04/23 21:47 10/04/23 21:47 Labs: Laboratory Results - last 24 hr 10/04/23 10/04/23 10/04/23 21:23 21:47 22:15 WBC Cancelled 5.52 RBC Cancelled 2.35 L Hgb Cancelled 8.7 L Hct Cancelled 24.0 L MCV Cancelled 102 H MCH Cancelled 37.0 H MCHC Cancelled 36.3 H RDW Cancelled 14.4 Plt Count Cancelled 243 MPV Cancelled 10.0 Immature Gran % Cancelled 0.9 Neutrophils % Cancelled 55.3 Band Neutrophils % Cancelled Lymphocytes % Cancelled 34.1 Atypical Lymphs % Cancelled Monocytes % Cancelled 8.7 Eosinophils % Cancelled 0.5 Basophils % Cancelled 0.5 Metamyelocytes % Cancelled Myelocytes % Cancelled Promyelocytes % Cancelled Other Cells % Cancelled Nucleated RBC % Cancelled 0.0 Absolute Neutrophils Cancelled 3.05 Absolute Lymphocytes Cancelled 1.88 Absolute Monocytes Cancelled 0.48 Absolute Eosinophils Cancelled 0.03 Absolute Basophils Cancelled 0.03 RBC Morphology Cancelled Polychromasia Cancelled Hypochromasia Cancelled Poikilocytosis Cancelled Basophilic Stippling Cancelled Anisocytosis Cancelled Microcytosis Cancelled Macrocytosis Cancelled Spherocytes Cancelled Tear Drop Cells Cancelled Ovalocytes Cancelled Stomatocytes Cancelled De Jesus-Mcfarlan Bodies Cancelled Nola Cells/Echinocytes Cancelled Acanthocytes (Spur) Cancelled Schistocytes Cancelled ESR Cancelled < 1 PT 11.5 H INR 1.2 H APTT 26.0 VBG Lactate Cancelled 4.2 H* Sodium Cancelled 132 L Potassium Cancelled 2.0 L* Chloride Cancelled 91 L Carbon Dioxide Cancelled 29.4 Anion Gap Cancelled 11.6 H BUN Cancelled 6 L Creatinine Cancelled 0.5 L Est GFR (CKD-EPI 2020) Cancelled 105.98 Glucose Cancelled 70 L Calcium Cancelled 7.2 L Magnesium Cancelled 1.2 L Total Bilirubin Cancelled 0.3 AST Cancelled 36 ALT Cancelled 16 Alkaline Phosphatase Cancelled 130 H Troponin I Cancelled < 50 C-Reactive Protein Cancelled < 0.50 NT-Pro-B Natriuret Pep 1140 H Total Protein Cancelled 5.4 L Albumin Cancelled 2.2 L Procalcitonin 0.4 Urine Color Urine Clarity Urine pH Ur Specific Entriken Urine Protein Urine Ketones Urine Blood Urine Nitrite Urine Bilirubin Urine Urobilinogen Ur Leukocyte Esterase Urine Glucose Ethyl Alcohol 198.3 H ABO/Rh A Positive Antibody Screen NEGATIVE 10/04/23 23:41 WBC RBC Hgb Hct MCV MCH MCHC RDW Plt Count MPV Immature Gran % Neutrophils % Band Neutrophils % Lymphocytes % Atypical Lymphs % Monocytes % Eosinophils % Basophils % Metamyelocytes % Myelocytes % Promyelocytes % Other Cells % Nucleated RBC % Absolute Neutrophils Absolute Lymphocytes Absolute Monocytes Absolute Eosinophils Absolute Basophils RBC Morphology Polychromasia Hypochromasia Poikilocytosis Basophilic Stippling Anisocytosis Microcytosis Macrocytosis Spherocytes Tear Drop Cells Ovalocytes Stomatocytes De Jesus-Mcfarlan Bodies Nola Cells/Echinocytes Acanthocytes (Spur) Schistocytes ESR PT INR APTT VBG Lactate Sodium Potassium Chloride Carbon Dioxide Anion Gap BUN Creatinine Est GFR (CKD-EPI 2020) Glucose Calcium Magnesium Total Bilirubin AST ALT Alkaline Phosphatase Troponin I C-Reactive Protein NT-Pro-B Natriuret Pep Total Protein Albumin Procalcitonin Urine Color Yellow Urine Clarity Clear Urine pH 6.0 Ur Specific Entriken <= 1.005 Urine Protein Negative Urine Ketones Negative Urine Blood Negative Urine Nitrite Negative Urine Bilirubin Negative Urine Urobilinogen 0.2 Ur Leukocyte Esterase Negative Urine Glucose Negative Ethyl Alcohol ABO/Rh Antibody Screen Last Vital Signs Temp 36.6 C 10/04/23 21:10 Pulse 90 10/04/23 23:01 Resp 21 10/04/23 23:10 BP 100/59 L 10/04/23 23:01 Pulse Ox 97 10/04/23 23:01 PAWSS Have you Been Recently Intoxicated or Drunk Within the Last 30 days?: Yes Have you Ever Experienced Previous Episodes of Alcohol Withdrawal?: No Have you ever Experienced Withdrawal Seizures?: No Have you ever Experienced Delirium Tremens(DT)s?: No Have you ever undergone Alcohol Rehabilitation Treatment (i.e, inpt ot outpatient treatment programs)?: No Have you ever Experienced Blackouts?: No Have you ever Combined Alcohol with other Downers within the last 90 days?: No Have you ever Combined Alcohol with any other Substance of Abuse during the last 90 days?: No Positive Blood Alcohol level on Presentation? [PCS.BAL]: No Evidence of Increased Autonomic Activity (i.e. HR>120, tremor, sweating, agitation, nausea)?: No Result: 1 Time Spent Time spent with Patient: >75 minutes Time was spent: preparing to see the patient(eg.review tests), obtaining and/or reviewing separately otained hiistory, ordering medications,tests, procedures, referring, communicating with other health career development consultant, indepentently interpreting results, counseling the patient and care coordination
[2023-10-05] MEDS: Lactated Ringers 500 ML IV ×2 (01:58→03:30)
[2023-10-05] MEDS: Normal Saline Flush 10 ML SYR IVP ×2 (01:58→20:01)
[2023-10-05 02:17] LABS: Troponin I < 50 ng/L (< or =60)
--- NOTE | 2023-10-05 03:13 | W.EVENT ---
Date of service: 10/05/23 Time of Service: 03:13 Event Note: Called by RN, blood pressure remained in 70s/40s despite second 500ml bolus of LR. Ms. Gallego is still alert and oriented, no new symptoms, not SOB. Other vitals remain stable. She continues to cough. Lung without rales, no JVP evident, slight diffuse wheeze. Will transfer to ICU, give third 500ml bolus to bring today to 30ml/kg. Norepinephrine ordered. Will add doxycycline to cover possible pneumonia given persistent cough and question of diffuse infiltrates on CXR. Time Spent with Patient Time spent in critical care(minutes): 40 Time Spent Included: Chart review, Documenting critically ill care, Time at immediate bedside and Discussing critically ill care with other medical staff
[2023-10-05] MEDS: CEFEPIME 2 GM in Normal Saline 100 ML IVPB ×2 (04:05→14:12)
[2023-10-05] MEDS: Norepinephrine in D5W 8 MG/250 ML BAG 9.375 MG IV (04:20)
[2023-10-05] MEDS: DOXYCYCLINE 100 MG in Normal Saline 100 ML IVPB ×2 (05:01→16:40)
[2023-10-05 06:24] LABS: Lactate 1.8 mmol/L (0.6-1.4)
[2023-10-05 06:25] LABS: Abs Immature Grans 0.05 10^3/uL (0.0-0.06); Absolute Basophil Count 0.04 10^3/uL (0.0-0.2); Absolute Eosinophil Count 0.03 10^3/uL (0.0-0.7); Absolute Monocyte Count 0.57 10^3/uL (0.1-0.8); Absolute Neutrophil Count 5.72 10^3/uL (1.2-6.7); Basophils % 0.5 %; Eosinophils % 0.4 %; HGB 8.9 g/dL (11.2-15.7); Immature Grans % 0.7 %; Lymphocytes % 14.6 %; MCH 36.5 pg (27.0-33.0); MCHC 35.6 % (32.0-36.0); MCV 103 fL (80-95); MPV 10.2 fL (8.0-11.0); Monocytes % 7.6 %; Neutrophils % 76.2 %; Platelet Count 279 10^3/uL (130-400); RBC 2.44 10^6/uL (3.93-5.22); RDW 14.5 % (11.7-14.6); RDW-SD 53.3 fL; WBC 7.51 10^3/uL (4.4-10.8)
[2023-10-05 06:48] LABS: Albumin 2.1 g/dL (3.4-5.0); Alkaline Phosphatase 122 U/L (46-116); BUN 5 mg/dL (7-18); Bilirubin, Total 0.4 mg/dL (0.2-1.0); CREATININE 0.6 mg/dL (0.55-1.02); Calcium 7.6 mg/dL (8.5-10.1); Estimated GFR 101.42 (mL/min/1.73m2); Glucose 90 mg/dL (74-106); Sodium 134 mmol/L (136-145); Total Protein 5.1 g/dL (6.4-8.2)
[2023-10-05 06:49] LABS: ALT 15 U/L (14-59); AST 40 U/L (15-37); Anion Gap 8.3 mmol/L (3-11); CO2 29.7 mmol/L (21.0-32.0); Chloride 96 mmol/L (98-107); Magnesium 1.4 mg/dL (1.8-2.4)
[2023-10-05 06:56] LABS: Potassium 2.5 mmol/L (3.5-5.1)
[2023-10-05] MEDS: Omeprazole 20 MG CAPCR 40 MG PO (07:47)
[2023-10-05] MEDS: Magnesium Oxide 400 MG TAB PO (07:47)
[2023-10-05] MEDS: Thiamine 100 MG TAB 250 MG PO (07:48)
[2023-10-05] MEDS: Multivitamin TAB 1 TAB PO (07:49)
[2023-10-05] MEDS: MAGNESIUM SULFATE 4 GM/100 ML BAG IVINF (07:51)
[2023-10-05] MEDS: POTASSIUM CHLORIDE 20 MEQ/100 ML BAG 50 MEQ IVINF ×2 (07:51→10:38)
[2023-10-05] MEDS: Tiotropium/Olodaterol 10 PUFF INHALER 2 PUFF IH (08:15)
--- NOTE | 2023-10-05 09:08 | PDOC.CMIN ---
Date of service: 10/05/23 Time of Service: 09:08 Care Management Initial Assmt Initial Assessment Reason for Hospitalization: Cellulitis, pneumonia Functional Status/Living Situation Patient Presentation: Bonifacio became very hypotensive during the night and was transferred to the ICU. She was started on a norepinephrine drip but was successfully weaned off of it this afternoon.Bonifacio was sitting up in bed when CM met with he She appeared a bit sleepy and informed CM that she is having difficulty breathing and that her hands are very itchy. She also admitted to being a bit anxious. This information was relayed to the provider who ordered benedryl for her symptoms with improvement in the itching. Bonifacio informed CM that she was given her nickname Bonifacio by her grandfather when she was about 4 years old and she has kept it ever since. CM abbreviated the visit today as Bonifacio stated that talking was making it more difficult for her to breathe. 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 Medications Medication Management: No Issues/Barriers identified Physical Functioning/Mobility Assistive Device: Wheelchair, walker, RCT Advance Directives Advance Directives: Do you have an Advance Directive: N 08/15/23 14:16 AD On File at [facility]: N 08/15/23 14:16 Date Asked 09/24/23 09/24/23 10:27 AD Date Reviewed COLST On File at [facility] Yes 08/15/23 14:16 COLST Date Scanned 01/03/21 08/15/23 14:16 Code Status Resuscitation Status Full Code Portal Pt does not currently have a portal and education provided: Yes Insurance Coverage/Financial Issues Insurance: BC/BS Federal ACO Member: No Care Team Visit Care Team Role Provider Type MARIANO KEARNEY NP Primary Care Provider NON-[facility] STAFF PHYSICIAN Whitley Brown NP Emergency Provider NURSE PRACTITIONER Niuknj Downey Admit Provider [facility] STAFF PHYSICIAN Attending Provider Discharge Potential Discharge Needs: PCP F/U Appt Anticipated Barriers to Discharge: None Identified Patient/Family Education Needs: Review discharge instructions, discuss Ask Me Three Transportation: RCT Plan: Anticipate Bonifacio will be discharged home with a resumption of home health services for RN and PT. She will follow up with her PCP and plan of care and transport via RCT coordinated by CM. CM will follow and continue to assess for discharge needs. [facility] All Active Problems Edema, peripheral (Acute) Cellulitis of left leg (Acute) Ambulatory dysfunction (Acute) Edema of both lower legs (Acute) Congestive heart failure (Chronic) COPD exacerbation (Acute) Cellulitis (Acute) Severe sepsis (Acute) Prolonged QT interval (Acute) Respiratory failure (Acute) Leg pain (Acute) Sepsis (Acute) Shock (Acute) Hypomagnesemia (Acute) Hypokalemia (Acute) Difficulty walking (Acute) PVD (peripheral vascular disease) (Chronic) Atherosclerosis of aorta (Acute) Leg swelling (Acute) Acute hypokalemia (Acute) Hypoglycemia (Acute) Alcoholic ketoacidosis (Acute) Laceration of scalp (Acute) Fall (Acute) Chronic left hip pain (Acute) Contusion of hip (Acute) Closed intertrochanteric fracture of left hip (Acute) s/p IMN fixation (05/18/23) Smoker (Acute) Closed fracture of left hip (Acute) Fall (Acute) Alcohol intoxication (Acute) Anxiety (Chronic) Cavitary lesion of lung (Acute) H/O ETOH abuse (Acute) Tobacco use disorder (Acute 01/28/14) Pleural effusion (Acute) Hypomagnesemia (Acute) Fluid overload (Acute) Chest pain due to GERD (Acute) Chest wall muscle strain (Acute) Hypokalemia (Acute) Emphysema lung (Acute) Nicotine dependence, cigarettes, uncomplicated (Acute) Atherosclerosis (Acute) Gastric wall thickening (Acute) Stenosis of right internal carotid artery (Acute) Mass of upper lobe of right lung (Acute) Alcohol abuse (Chronic) Dehydration (Acute) Diarrhea (Acute) Hypomagnesemia (Chronic) B12 deficiency (Acute) Ascites (Acute) Chronic liver disease (Chronic) Weight loss, non-intentional (Acute) Macrocytic anemia (Acute) Early satiety (Acute) Folate deficiency (Acute) Hypomagnesemia (Acute) Hypokalemia (Acute) Leg pain (Acute) Cellulitis (Acute) Bilateral leg ulcer (Acute) Medical History Pulmonary nodule COPD (chronic obstructive pulmonary disease) Hypomagnesemia Cachexia Hepatic fibrosis Ulcer of lower extremity Hair loss Vitamin D deficiency Chest pain Gastroesophageal reflux disease Hx pulmonary embolism COPD (chronic obstructive pulmonary disease) Chronic vomiting Malnutrition Frequent falls Bilateral leg pain Pancreatitis Diastolic dysfunction Folate deficiency anemia Ascites Bilateral lower extremity edema Unintentional weight loss Alcohol abuse Tobacco dependence syndrome Tobacco abuse Surgical History punch biopsy, skin of ankle, right lateral (11/24/16) negative for malignancy, sparse inflammation and reactive blood vessels foot surgery (~2000) Ligation of fallopian tube (~1999) ENT/Nasal surgery (~2007) Family History Father Lung disease Cancer Lung Social History Smoking/Tobacco Use Status: Current every day Tobacco Type: cigarettes Tobacco: How many years used: 45 Quit status: considering quitting Second Hand Exposure: Yes Smoking risk assessment performed?: Yes Alcohol Intake: current Alcohol Intake frequency: 3 or more drinks per day Alcohol type: wine and hard liquor Counseling given: Yes Counseling provided: provider counseling Drug use: Occasionally Substance use type: marijuana Details: daily drinker, presents to [facility] under the influence of ETOH, states I had 4 lemon drop martinis today 10/04/23 Housing: apartment Current gender identity: female Do you feel safe at home: Yes Do you feel safe in your relationship?: Yes Additional Social history: 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 Grew up in [facility], sisters in area. History History Para 0 Hx # Term Pregnancies Multiple births Hx # Pregnancies Ectopic pregnancies AB induced Hx Number of Living Children AB spontaneous SDOH(Care Management) Screening Will the Patient Participate in the Screening?: Yes Do you worry about having a steady place to live?: no In the past 12 months, have you had to go without electric, gas, oil or water in your home?: no Have you or anyone in your house had to go without enough food to eat?: no Has lack of transportation kept you from medical appointments or from doing things needed for daily living?: no Has anyone in your support network made you feel unsafe for any reason?: no
--- NOTE | 2023-10-05 09:33 | RESPIRATORY ---
0905 Approx. Called by RN for pt desat to 79%. Pt placed on 2L NC, SPO2 98%. Pt weaned back to room air, dropped to 83%. Placed pt back on 1L NC, pt maintaining around 93%. Pt is very drowsy and complaining of a numb lip to RN. RN aware and has contacted MD. Pt has a coarse LLL and a diminished RLL.
[2023-10-05] MEDS: Normal Saline 1,000 ML 100 ML IV ×2 (10:45→19:59)
--- NOTE | 2023-10-05 11:18 | PHA.REVIEW2 ---
Pharmacy Admission Review Admission Clinical Review Admission Pharmacy Review: (Updated 10/05/23 @ 01:12 by Nkiunj Downey) Edema of both lower legs (Acute) Alcohol intoxication (Acute) Tobacco use disorder (Acute 01/28/14) Hypokalemia (Acute) Macrocytic anemia (Acute) Hypomagnesemia (Acute) bacitracin [From Neosporin ([id number])] Allergy (Mild, Verified 09/28/23 10:10) localized redness neomycin [From Neosporin ([id number])] Allergy (Mild, Verified 09/28/23 10:10) localized redness polymyxin B [From Neosporin ([id number])] Allergy (Mild, Verified 09/28/23 10:10) localized redness Resuscitation Status Full Code Height 5 ft 8 in Weight 49.8 kg Pharmacy Admission Review Renal Dosing Renal Dosing: BUN 5 mg/dL (7-18) L 10/05/23 06:09 Creatinine 0.6 mg/dL (0.55-1.02) 10/05/23 06:09 Medications needing adjustments: Intervened (CrCl 45.82 mL/min) List of meds needing interventions: Reached out to provider regarding gabapentin dose. Recommended max daily dose is 900mg if CrCl < 50. Provider was okay with changed order to 300mg TID. Anticoagulation Anticoagulation: Hgb 8.9 g/dL (11.2-15.7) L 10/05/23 06:09 Hct 25.0 % (36.0-46.0) L 10/05/23 06:09 Plt Count 279 10^3/uL (130-400) 10/05/23 06:09 INR 1.2 (0.9-1.1) H 10/04/23 22:15 Creatinine 0.6 mg/dL (0.55-1.02) 10/05/23 06:09 DVT Prophylaxis: Reviewed (No SCDs due to leg pain, per progress note provider will add LMWH if Hgb is stable.) Relevant Labs Relevant Labs: ESR < 1 mm/hr (0-30) 10/04/23 21:47 Sodium 134 mmol/L (136-145) L 10/05/23 06:09 Potassium 2.5 mmol/L (3.5-5.1) L* 10/05/23 06:09 Chloride 96 mmol/L (98-107) L 10/05/23 06:09 Magnesium 1.4 mg/dL (1.8-2.4) L 10/05/23 06:09 C-Reactive Protein < 0.50 mg/dL (<or=0.5) 10/04/23 21:47 Electrolytes, C-Reactive P, ESR: Reviewed (Na 134, K 2.5, Mg 1.4 - electrolytes being repleted, AST increased from 36 to 40) Cardiac Review Cardiac Review: Troponin I < 50 ng/L (< or =60) 10/05/23 01:48 NT-Pro-B Natriuret Pep 1140 pg/mL (<300) H 10/04/23 21:47 Blood Pressure 120/66 0953 Blood Pressure 107/77 0900 Blood Pressure 108/88 0848 Blood Pressure 111/88 0834 Blood Pressure 104/44 0816 Blood Pressure 97/72 0747 Blood Pressure 89/67 0730 Blood Pressure 88/61 0631 Blood Pressure 83/60 0616 Blood Pressure 89/68 0600 Blood Pressure 108/68 0531 Blood Pressure 90/69 0515 BP, HR, EF%: Reviewed (HR/BP WNL, RR 11) QTc Review QTc: Reviewed (551 from 10/04/23) IV to PO Switch IV Medications: Reviewed (Levophed drip, doxycycline and cefepime) Home Meds Home Med List reviewed: Reviewed Relevent Home Meds Not ordered & why?: Furosemide (on hold per H+P) and ibuprofen (PRN) Current Meds Current Medication Order Review: Reviewed Comments: On Levophed drip at 4 mcg/min Per morning meeting, plan to wean off today Pharmacy Antibiotic Review Relevant Labs: Relevant Labs 10/04/23 10/04/23 21:47 21:23 C-Reactive Protein < 0.50 Cancelled Procalcitonin 0.4 WBC 7.51 10^3/uL (4.4-10.8) 10/05/23 06:09 Procalcitonin 0.4 ng/mL 10/04/23 21:47 Temperature 37.1 C Temperature 36.8 C Temperature 37 C Pharmacy Antibiotic Activity: C/S review and Reviewed, no change Comments: Patient is on cefepime (renally adjusted dose) and doxycycline, day 1, for possible pneumonia. Blood cultures are pending.
[2023-10-05] MEDS: Nicotine 2 MG LOZG SUC ×2 (12:21→17:29)
[2023-10-05] MEDS: Gabapentin 300 MG CAP PO ×2 (13:45→20:01)
[2023-10-05] MEDS: diphenhydrAMINE 25 MG CAP PO (13:45)
[2023-10-05 16:18] LABS: Anion Gap 10.2 mmol/L (3-11); BUN 6 mg/dL (7-18); CO2 26.8 mmol/L (21.0-32.0); CREATININE 0.7 mg/dL (0.55-1.02); Calcium 7.5 mg/dL (8.5-10.1); Chloride 96 mmol/L (98-107); Estimated GFR 97.72 (mL/min/1.73m2); Glucose 137 mg/dL (74-106); Sodium 133 mmol/L (136-145)
[2023-10-06] VITALS (22 sets, daily range): BP systolic 74–137; BP diastolic 48–76; PULSE 72–96; RESP 10–29; TEMP 36–37.3; O2SAT 84–98
[2023-10-06] MEDS: Nicotine 2 MG LOZG SUC ×2 (00:10→08:31)
[2023-10-06] MEDS: CEFEPIME 2 GM in Normal Saline 100 ML IVPB (02:16)
[2023-10-06] MEDS: DOXYCYCLINE 100 MG in Normal Saline 100 ML IVPB (04:11)
[2023-10-06 07:31] LABS: HCT 23.6 % (36.0-46.0); HGB 8.2 g/dL (11.2-15.7); MCH 36.6 pg (27.0-33.0); MCHC 34.7 % (32.0-36.0); Platelet Count 231 10^3/uL (130-400); RBC 2.24 10^6/uL (3.93-5.22); RDW 15.9 % (11.7-14.6); RDW-SD 60.8 fL
[2023-10-06] MEDS: Tiotropium/Olodaterol 10 PUFF INHALER 2 PUFF IH (07:33)
[2023-10-06 07:42] LABS: Anion Gap 7.2 mmol/L (3-11); BUN 6 mg/dL (7-18); CO2 28.8 mmol/L (21.0-32.0); CREATININE 0.6 mg/dL (0.55-1.02); Calcium 7.2 mg/dL (8.5-10.1); Chloride 100 mmol/L (98-107); Estimated GFR 101.42 (mL/min/1.73m2); Glucose 98 mg/dL (74-106); Sodium 136 mmol/L (136-145)
[2023-10-06 07:43] LABS: Potassium 2.9 mmol/L (3.5-5.1)
[2023-10-06 07:50] LABS: MCV 105 fL (80-95)
[2023-10-06] MEDS: Gabapentin 300 MG CAP PO (08:13)
[2023-10-06] MEDS: Omeprazole 20 MG CAPCR 40 MG PO (08:13)
[2023-10-06] MEDS: Thiamine 100 MG TAB 250 MG PO (08:14)
[2023-10-06] MEDS: Multivitamin TAB 1 TAB PO (08:14)
[2023-10-06] MEDS: Magnesium Oxide 400 MG TAB PO (08:14)
--- NOTE | 2023-10-06 08:47 | PDOC.CMPRO ---
Date of service: 10/06/23 Time of Service: 08:47 Care Management Progress Note Progress Note Text Progress Note Text: S/O: A: Bonifacio is a 63 year old woman admitted on 10/05/23 with hypokalemia and cellulitis Discharge Potential Discharge Needs: PCP F/U Appt Anticipated Barriers to Discharge: Medical Status Patient/Family Education Needs: Review discharge instructions, discuss Ask Me Three and Other (activity, medications, diet, limitations, follow up plan) Transportation: Private vehicle Plan: Anticipate Bonifacio will be discharged home with a resumption of home health services for RN and PT. She will follow up with her PCP and plan of care and transport via RCT coordinated by CM. CM will follow and continue to assess for discharge needs. SDOH(Care Management) Screening Will the Patient Participate in the Screening?: Yes Do you worry about having a steady place to live?: no In the past 12 months, have you had to go without electric, gas, oil or water in your home?: no Have you or anyone in your house had to go without enough food to eat?: no Has lack of transportation kept you from medical appointments or from doing things needed for daily living?: no Has anyone in your support network made you feel unsafe for any reason?: no
[2023-10-06] MEDS: Potassium Chloride 20 MEQ TABCR 40 MEQ PO (09:17)
--- NOTE | 2023-10-06 10:10 | W.PM.DS.N ---
Date of service: 10/06/23 Time of Service: 10:10 DS: Diagnosis Discharge Diagnosis (1) Edema of both lower legs: Status: Acute Asessment and Plan: Patient initially presented hospital complaining of increased lower extremity pain, generalized fatigue over the last few days. She does not have any fevers, and bilateral lower extremities look similar to previous and without any significant signs of infection. She previously been admitted on 09/01/2023 to 09/22/2023 and sent home on Augmentin and linezolid. She was subsequently seen again in the emergency department on 09/28/2023 where she was again diagnosed with lower extremity cellulitis and given Keflex. While the patient has had over lower extremity cellulitis in the past, this time it appears that she does not have any worsening redness or swelling this is likely ongoing peripheral vascular disease. However, shortly after admission patient did have significant episode of hypotension requiring transfer to the ICU and about 12 hours of Levophed. As previously noted patient is chronically hypotensive likely due to poor p.o. fluid intake. P.o. fluid intake was encouraged and she was given IV fluids which significantly improved her blood pressure. Additionally, she was found to have hypokalemia and hypomagnesemia which were replaced. Ultimately, was determined the patient was stable for discharge home. (2) Hypotension: Status: Resolved Asessment and Plan: -as noted above (3) Hypokalemia: Status: Acute Asessment and Plan: -as noted above (4) Alcohol abuse: Status: Chronic (5) Macrocytic anemia: Status: Acute (6) Hypomagnesemia: Status: Acute (7) Alcohol intoxication: Status: Acute (8) COPD (chronic obstructive pulmonary disease): (9) Chronic liver disease: Status: Chronic (10) Tobacco use disorder: Status: Acute (11) PVD (peripheral vascular disease): Status: Chronic (12) DVT prophylaxis: Status: Resolved Discharge Plan Disposition Patient Disposition: Home Condition: Good Discharge Details Reason For Visit: Hypokalemia, Hypomagnesemia, BLE cellulitis Admit Date/Time: 10/05/23 00:00 Admit Provider: Nikunj Downey Attending Provider: Nikunj Downey Primary Care Provider: MARIANO KEARNEY Hospital Course Hospital Course: Patient initially presented hospital complaining of increased lower extremity pain, generalized fatigue over the last few days. She does not have any fevers, and bilateral lower extremities look similar to previous and without any significant signs of infection. She previously been admitted on 09/01/2023 to 09/22/2023 and sent home on Augmentin and linezolid. She was subsequently seen again in the emergency department on 09/28/2023 where she was again diagnosed with lower extremity cellulitis and given Keflex. While the patient has had over lower extremity cellulitis in the past, this time it appears that she does not have any worsening redness or swelling this is likely ongoing peripheral vascular disease. However, shortly after admission patient did have significant episode of hypotension requiring transfer to the ICU and about 12 hours of Levophed. As previously noted patient is chronically hypotensive likely due to poor p.o. fluid intake. P.o. fluid intake was encouraged and she was given IV fluids which significantly improved her blood pressure. Additionally, she was found to have hypokalemia and hypomagnesemia which were replaced. Ultimately, was determined the patient was stable for discharge home. Home Meds and New Rx's Prescriptions: New potassium chloride [Klor-Con M20] 20 mEq Tablet,Er Particles/Crystals 40 meq PO DAILY Qty: 90 0RF magnesium oxide 400 mg (241.3 mg magnesium) Tablet 400 mg PO DAILY Qty: 90 0RF Continued ipratropium-albuterol 0.5 mg-3 mg(2.5 mg base)/3 mL solution for nebulization 3 ml inhalation Q4H PRN (Reason: wheezing) Qty: 540 8RF albuterol sulfate 90 mcg/actuation HFA aerosol inhaler 2 puff inhalation Q6H PRN (Reason: shortness of breath or wheezing) Qty: 8.5 12RF thiamine HCl (vitamin B1) 250 mg tablet 250 mg PO DAILY gabapentin 300 mg capsule 300 mg PO TID Stiolto Respimat 2.5-2.5 mcg/actuation mist 2 puff inhalation Q24H Qty: 4 12RF loperamide [Imodium A-D] 1 mg/7.5 mL liquid 2 mg PO Q1-4H PRNQty: 120 0RF Rx Instructions: administer after each loose stool until symptoms controlled; do not exceed 16 mg per 24 hrs multivitamin [Multiple Vitamins] Tablet 1 tab PO DAILY Qty: 30 0RF ibuprofen 600 mg tablet 600 mg PO TID PRNQty: 30 0RF omeprazole 40 mg capsule,delayed release(DR/EC) 40 mg PO DAILY Discontinued furosemide 20 mg Tablet 10 mg PO BID@0830,1600 Qty: 20 0RF magnesium 250 mg tablet 250 mg PO DAILY Qty: 20 0RF Discharge Instructions Activity:: Activity as Tolerated Equipment/Supplies:: No Equipment Needed Diet:: As Tolerated Discharge Orders Discharge Orders: Discharge Order (Routine); Ordered 10/06/23 Ordered By: Ck Haas DS: Summary Time Spent with Patient providing and/or coordinating discharge services: Greater than 30 minutes Status at Discharge Functional status at discharge: independent ambulation Overall status at discharge: patient is back to baseline Mental Status: mental status grossly normal Speech and Movement: speech and movement normal Mood: congruent mood Affect: normal affect Quality:SDOH Health Related Social Needs: Health related social needs transpo insecurity Exam Narrative Exam Narrative: Chronically ill-appearing older female sitting up in the chair no acute distress, ANO x 4, heart regular rate and rhythm, lungs clear to auscultation bilaterally, abdomen soft, nontender, nondistended, bilateral lower extremities without significant erythema or edema, signs consistent with peripheral vascular disease and chronic skin changes Psych Mental Status: mental status grossly normal Speech and Movement: speech and movement normal Mood: congruent mood Affect: normal affect DS: Data Vitals/I&O Vitals and I&O: Vital Signs Temperature 99.1 F 10/06/23 07:40 Temperature Source Temporal Artery Scan 10/06/23 07:40 Pulse 89 10/06/23 09:53 Pulse Rhythm Regular 10/05/23 01:34 Pulse 90 10/06/23 09:53 Respiratory Rate 14 10/06/23 09:53 Respiratory Effort Normal 10/06/23 07:40 Respiratory Depth Normal 10/06/23 07:40 Respiratory Pattern Normal 10/06/23 07:40 Blood Pressure 128/76 10/06/23 09:53 Blood Pressure Mean 90 10/06/23 09:53 Blood Pressure Position Sitting 10/06/23 03:48 Pulse Oximetry 93 10/06/23 08:00 Oxygen Delivery Method Room Air 10/06/23 07:40 Oxygen Flow Rate 0 10/06/23 07:40 Pain Level 0 10/06/23 03:48 Comment Blood pressure checked manually after several low readings with autocuff. 10/05/23 21:25 Intake & Output 10/05/23 10/06/23 10/06/23 17:59 05:59 17:59 Intake Total 1248.875 / 2045.206 4649.333 / 2622.208 1100 / 1100 Output Total 200 / 200 400 / 600 Balance 1048.875 / 1048.875 973.333 / 2.208 1100 / 1100 Weight 118 lb 2.684 oz Intake: IV 548.875 / 180.150 0773.333 / 4139.817 0437 / 1100 Oral 700 / 700 240 / 940 Output: Urine 200 / 200 400 / 600 Other: Urine Color Yellow Comment Occasional stress incontinence per patient. Brief in place. Stool Occult Blood Negative Stool Size Smear Stool Characteristics Soft Data Completed and Pending Labs on day of discharge: Labs from last 24 hours 10/06/23 10/06/23 10/05/23 12:00 07:24 15:55 WBC 7.50 RBC 2.24 L Hgb 8.2 L Hct 23.6 L MCV 105 H MCH 36.6 H MCHC 34.7 RDW 15.9 H Plt Count 231 MPV 10.0 Sodium Cancelled 136 133 L Potassium Cancelled 2.9 L* 3.0 L Chloride Cancelled 100 96 L Carbon Dioxide Cancelled 28.8 26.8 Anion Gap Cancelled 7.2 10.2 BUN Cancelled 6 L 6 L Creatinine Cancelled 0.6 0.7 Est GFR (CKD-EPI 2020) Cancelled 101.42 97.72 Glucose Cancelled 98 137 H Calcium Cancelled 7.2 L 7.5 L Magnesium Cancelled Preliminary micro results at discharge 10/04/23 22:40 Blood Culture - Preliminary Blood NO GROWTH 24 HOURS 10/04/23 22:15 Blood Culture - Preliminary Blood NO GROWTH 24 HOURS PFSH All Active Problems Edema, peripheral (Acute) Cellulitis of left leg (Acute) Ambulatory dysfunction (Acute) Edema of both lower legs (Acute) Congestive heart failure (Chronic) COPD exacerbation (Acute) Cellulitis (Acute) Severe sepsis (Acute) Prolonged QT interval (Acute) Respiratory failure (Acute) Leg pain (Acute) Sepsis (Acute) Shock (Acute) Hypomagnesemia (Acute) Hypokalemia (Acute) Difficulty walking (Acute) PVD (peripheral vascular disease) (Chronic) Atherosclerosis of aorta (Acute) Leg swelling (Acute) Acute hypokalemia (Acute) Hypoglycemia (Acute) Alcoholic ketoacidosis (Acute) Laceration of scalp (Acute) Fall (Acute) Chronic left hip pain (Acute) Contusion of hip (Acute) Closed intertrochanteric fracture of left hip (Acute) s/p IMN fixation (05/18/23) Smoker (Acute) Closed fracture of left hip (Acute) Fall (Acute) Alcohol intoxication (Acute) Anxiety (Chronic) Cavitary lesion of lung (Acute) H/O ETOH abuse (Acute) Tobacco use disorder (Acute 01/28/14) Pleural effusion (Acute) Hypomagnesemia (Acute) Fluid overload (Acute) Chest pain due to GERD (Acute) Chest wall muscle strain (Acute) Hypokalemia (Acute) Emphysema lung (Acute) Nicotine dependence, cigarettes, uncomplicated (Acute) Atherosclerosis (Acute) Gastric wall thickening (Acute) Stenosis of right internal carotid artery (Acute) Mass of upper lobe of right lung (Acute) Alcohol abuse (Chronic) Dehydration (Acute) Diarrhea (Acute) Hypomagnesemia (Chronic) B12 deficiency (Acute) Ascites (Acute) Chronic liver disease (Chronic) Weight loss, non-intentional (Acute) Macrocytic anemia (Acute) Early satiety (Acute) Folate deficiency (Acute) Hypomagnesemia (Acute) Hypokalemia (Acute) Leg pain (Acute) Cellulitis (Acute) Bilateral leg ulcer (Acute) Medical History Pulmonary nodule COPD (chronic obstructive pulmonary disease) Hypomagnesemia Cachexia Hepatic fibrosis Ulcer of lower extremity Hair loss Vitamin D deficiency Chest pain Gastroesophageal reflux disease Hx pulmonary embolism COPD (chronic obstructive pulmonary disease) Chronic vomiting Malnutrition Frequent falls Bilateral leg pain Pancreatitis Diastolic dysfunction Folate deficiency anemia Ascites Bilateral lower extremity edema Unintentional weight loss Alcohol abuse Tobacco dependence syndrome Tobacco abuse Surgical History punch biopsy, skin of ankle, right lateral (11/24/16) negative for malignancy, sparse inflammation and reactive blood vessels foot surgery (~2000) Ligation of fallopian tube (~1999) ENT/Nasal surgery (~2007) Family History Father Lung disease Cancer Lung Social History Smoking/Tobacco Use Status: Current every day Tobacco Type: cigarettes Tobacco: How many years used: 45 Quit status: considering quitting Second Hand Exposure: Yes Smoking risk assessment performed?: Yes Alcohol Intake: current Alcohol Intake frequency: 3 or more drinks per day Alcohol type: wine and hard liquor Counseling given: Yes Counseling provided: provider counseling Drug use: Occasionally Substance use type: marijuana Details: daily drinker, presents to [facility] under the influence of ETOH, states I had 4 lemon drop martinis today 10/04/23 Housing: apartment Current gender identity: female Do you feel safe at home: Yes Do you feel safe in your relationship?: Yes Additional Social history: Lives alone in studio in [facility], 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 Grew up in [place], sisters in area. History History Para 0 Hx # Term Pregnancies Multiple births Hx # Pregnancies Ectopic pregnancies AB induced Hx Number of Living Children AB spontaneous Time Spent with Patient Time Spent with Patient: <45 minutes Time was spent: preparing to see the patient(eg.review tests), obtaining and/or reviewing separately otained hiistory, ordering medications,tests, procedures, referring, communicating with other health personal care worker, indepentently interpreting results, counseling the patient and care coordination
--- NOTE | 2023-10-06 10:33 | PDOC.HHF2F ---
Home Health Referral Home Health Orders Clinical synopsis of why skilled professionals are needed: PVD, hypotension, recurrent LE cellulitis, hypokalemia, hypomagnesemia, alcohol use disorder Registered Nurse: Check all that apply Instruct on new or changed medication(s)/assess compliance: Ordered Assess for exacerbation of medical condition, instruct patient/caregivers on signs and symptoms to report for early detection: Ordered Physical Therapist: Check all that apply Increase strength & endurance for safe mobility at home: Ordered To design/establish home maintenance program: Ordered Fall reduction therapy program for patient with history of frequent falls: Ordered Home safety evaluation and teaching/gait training including stair management (if applicable): Ordered Restaurant Cashier: Assist with community resources: Ordered Assist with termite helper care planning: Ordered Home Bound Status Requires the aid of supportive device (check all that apply): Walker Encounter Date and Reason: I certify that a FTF encounter for this patient was performed on October 06, 2023 and that such encounter was related to the primary reason the patient requires home health services. The encounter was conducted in the following manner: By me as the certifying physician, RETIREMENT ASSISTANT, PA or By an inpatient physician, RETIREMENT ASSISTANT or PA during an inpatient stay who communicated findings to me, Certification And Authentication I certify that I composed the above information based on my clinical judgment relating to this patient's medical condition and, if applicable, clinical findings communicated to me by the NPP or inpatient physician who performed the FTF encounter. Name of Provider that will be monitoring home health services: MARIANO KEARNEY
--- NOTE | 2023-10-06 12:33 | PDOC.CMDIS ---
Date of service: 10/06/23 Time of Service: 12:34 LACE Index Scoring Tool Questions: Length of Stay (in days): 1 Was the patient admitted via the E.D.?: Yes Comorbidities: PVD, Congestive Heart Failure, Chronic Pulmonary Disease and Liver or Renal Disease E.D. Visits: 15 Answers: Total Score: 13 Risk of Readmission: High Risk Care Management Discharge Plan Reason for Hospitalization: cellulitis and hypotension Discharge Plan: Bonifacio will be discharged home with a resumption of home health services for RN and PT. She will follow up with her PCP and plan of care and transport via RCT coordinated by CM. Patient/Family Education Needs: Review discharge instructions, discuss Ask Me Three Services Needed at Discharge: Home Health Care Services SDOH Health Related Social Needs: Health related social needs transpo insecurity
== END 2023-10-06 11:07 | disposition hospice, home (50) | DRG 315 ==
LOC: ER 10-05 00:23 → MS 10-05 01:09 → ICU 10-05 03:08
PROVIDERS: Family Medicine; Admitting Provider Family Medicine; Emergency Provider Registered Nurse Emergency; PCP Nurse Practitioner Family; Visit Provider Family Medicine
DX: I95.9 Hypotension, unspecified (principal); I50.30 Unspecified diastolic (congestive) heart failure; Z68.1 Body mass index [BMI] 19.9 or less, adult; R60.0 Localized edema; E87.6 Hypokalemia; E83.42 Hypomagnesemia; J44.9 Chronic obstructive pulmonary disease, unspecified; F17.210 Nicotine dependence, cigarettes, uncomplicated; I73.9 Peripheral vascular disease, unspecified; D53.8 Other specified nutritional anemias; F10.129 Alcohol abuse with intoxication, unspecified; K76.9 Liver disease, unspecified; R26.9 Unspecified abnormalities of gait and mobility; F41.9 Anxiety disorder, unspecified; R63.4 Abnormal weight loss; E53.8 Deficiency of other specified B group vitamins; K21.9 Gastro-esophageal reflux disease without esophagitis; Z86.711 Personal history of pulmonary embolism; Y90.6 Blood alcohol level of 120-199 mg/100 ml; R53.83 Other fatigue
CPT/HCPCS: 00123; 36415; 80048; 80053; 84145; 85027; 85652; 86850; 86900; 86901; 87040; 93005; 94640; 96365; 96367; 99285; 71045; 80320; 81003; 83605; 83735; 83880; 84484; 85025; 85610; 85730; 86140; 93010; 94664; 99223; 99238; 99291; J0690; J0692; J3475; J3480

== ENCOUNTER 2023-10-10 08:30 | Inpatient (IN) | payer BC, SELFPAY ==
[2023-10-10] VITALS (91 sets, daily range): BP systolic 70–150; BP diastolic 31–95; PULSE 85–117; RESP 10–25; TEMP 36.4–37.1; O2SAT 89–100
--- NOTE | 2023-10-10 08:58 | ED.GENADUL_ITS ---
Discharge Plan Disposition Patient Disposition: Admit to [facility] Condition: Fair Discharge Details Clinical Impression: CHF exacerbation, Septic shock, Pneumonia Primary Care Provider: MARIANO KEARNEY ED Provider: Walter Zheng Home Meds and New Rx's Prescriptions: No Action ipratropium-albuterol 0.5 mg-3 mg(2.5 mg base)/3 mL solution for nebulization 3 ml inhalation Q4H PRN (Reason: wheezing) Qty: 540 8RF albuterol sulfate 90 mcg/actuation HFA aerosol inhaler 2 puff inhalation Q6H PRN (Reason: shortness of breath or wheezing) Qty: 8.5 12RF thiamine HCl (vitamin B1) 250 mg tablet 250 mg PO DAILY gabapentin 300 mg capsule 300 mg PO TID Stiolto Respimat 2.5-2.5 mcg/actuation mist 2 puff inhalation Q24H Qty: 4 12RF loperamide [Imodium A-D] 1 mg/7.5 mL liquid 2 mg PO Q1-4H PRNQty: 120 0RF Rx Instructions: administer after each loose stool until symptoms controlled; do not exceed 16 mg per 24 hrs multivitamin [Multiple Vitamins] Tablet 1 tab PO DAILY Qty: 30 0RF ibuprofen 600 mg tablet 600 mg PO TID PRNQty: 30 0RF omeprazole 40 mg capsule,delayed release(DR/EC) 40 mg PO DAILY potassium chloride [Klor-Con M20] 20 mEq Tablet,Er Particles/Crystals 40 meq PO DAILY Qty: 90 0RF magnesium oxide 400 mg (241.3 mg magnesium) Tablet 400 mg PO DAILY Qty: 90 0RF HPI General Date/Time Provider Initiated Documentation: 10/10/23 08:42 . HPI Narrative: 63 year-old female presents to ED today by POV/wheelchair from a welfare check from her sister, with a chief complaint of nausea/vomiting x2 yesterday, itching, large welts to her back and legs with onset yesterday. Patient is well- known to the department and has chronic alcohol use disorder, usually having a few to several martini's per day. Frequently seen with hypotension. Quality described as itching to her body, feels cold, has welts all over, no radiation to chest pain, shortness of breath, cough, fever, abdominal pain, confusion, neck stiffness, sick contacts. Severity is described as severe. Palliating factors include had some gatorade today. Provoking factors include nothing specific. Events leading up to the incident/Associated Symptoms: Patient denies any ETOH today, states had less than 6 or 7 martinis yesterday. Patient not anticoagulated. Related Data Home Medications Medication Instructions Recorded Confirmed multivitamin (Multiple Vitamins 1 tab PO DAILY #30 tabs 08/13/20 10/10/23 tablet) albuterol sulfate 90 mcg/actuation 2 puff inhalation Q6H PRN 01/18/22 10/10/23 aerosol inhaler shortness of breath or wheezing #8.5 grams thiamine HCl (vitamin B1) 250 mg 250 mg PO DAILY 04/19/23 10/10/23 tablet tiotropium 2.5 mcg-olodaterol 2.5 2 puff inhalation Q24H #4 grams 05/04/23 10/10/23 mcg/actuation mist for inhalation (Stiolto Respimat) ipratropium 0.5 mg-albuterol 3 mg 3 ml inhalation Q4H PRN wheezing 05/10/23 10/10/23 (2.5 mg base)/3 mL nebulization #540 mL soln ibuprofen 600 mg tablet 600 mg PO TID PRN #30 tabs 05/20/23 10/10/23 gabapentin 300 mg capsule 300 mg PO TID 06/06/23 10/10/23 omeprazole 40 mg capsule,delayed 40 mg PO DAILY 06/12/23 10/10/23 release loperamide 1 mg/7.5 mL oral liquid 2 mg (15 mL) PO Q1-4H PRN #120 mL 08/02/23 10/10/23 (Imodium A-D) magnesium oxide 400 mg (241.3 mg 400 mg PO DAILY #90 tabs 10/06/23 10/10/23 magnesium) tablet potassium chloride 20 mEq 40 meq (2 x 20 mEq) PO DAILY #90 10/06/23 10/10/23 tablet,extended tabs release(part/cryst) (Klor-Con M) Previous Rx's Medication Instructions Recorded multivitamin (Multiple Vitamins 1 tab PO DAILY #30 tabs 08/13/20 tablet) albuterol sulfate 90 mcg/actuation 2 puff inhalation Q6H PRN 01/18/22 aerosol inhaler shortness of breath or wheezing #8.5 grams tiotropium 2.5 mcg-olodaterol 2.5 2 puff inhalation Q24H #4 grams 05/04/23 mcg/actuation mist for inhalation (Stiolto Respimat) ipratropium 0.5 mg-albuterol 3 mg 3 ml inhalation Q4H PRN wheezing 05/10/23 (2.5 mg base)/3 mL nebulization #540 mL soln ibuprofen 600 mg tablet 600 mg PO TID PRN #30 tabs 05/20/23 loperamide 1 mg/7.5 mL oral liquid 2 mg (15 mL) PO Q1-4H PRN #120 mL 08/02/23 (Imodium A-D) magnesium oxide 400 mg (241.3 mg 400 mg PO DAILY #90 tabs 10/06/23 magnesium) tablet potassium chloride 20 mEq 40 meq (2 x 20 mEq) PO DAILY #90 10/06/23 tablet,extended tabs release(part/cryst) (Klor-Con M) Allergies Allergy/AdvReac Type Severity Reaction Status Date / Time bacitracin Allergy Mild localized Verified 10/10/23 08:58 [From Neosporin redness ([id number])] neomycin Allergy Mild localized Verified 10/10/23 08:58 [From Neosporin redness ([id number])] polymyxin B Allergy Mild localized Verified 10/10/23 08:58 [From Neosporin redness ([id number])] General Stated Complaint: GenMedical RAHEEM: 3 Review of Systems All systems reviewed & are unremarkable except as noted in HPI and below Exam Narrative Exam Narrative: GENERAL APPEARANCE: Cachexic, toxic, awake and semi-alert, confused over yesterday vs. today timeline of events, atraumatic, moderate acute distress. SKIN: Warm, pink, dry, intact, diffuse welts and urticarial skin changes to bilateral legs and back, possible ringworm on anterior stomach HEAD: Normocephalic, atraumatic, normal hair distribution for gender/age. EYES: Pupils PERRLA, EOMs intact without nystagmus, normal conjunctiva, no exudates on lids/lashes. ENT: Nares patent, no circumoral cyanosis, no facial swelling NECK: Supple, trachea midline, painless cervical ROM. LUNGS/CHEST: Lungs- rales at bases bilaterally, mildly labored respirations, normal A/P diameter, symmetrical expansion, no chest wall deformity HEART (CV/PV): Regular rate and rhythm without murmur, 1+ peripheral edema in lower extremities- baseline, no JVD. ABDOMEN: Soft, non-distended, no guarding, no overt tenderness, Ling's sign negative, no McBurney's point tenderness, no Wick/Melrose's sign. MSK: Normal ROM, no swelling/deformity to bilateral UEs or LEs, moving all extremities without weakness, no cyanosis, spine midline without tenderness, normal curvature. NEURO: Mental Status AAOx4 - alert to person, place, time, events No facial droop, no forehead involvement, no asterixis Motor: No focal weakness - strength 4+/5 in bilateral UEs and LEs, proximal and distal, symmetric. Sensory: sensation intact to light touch globally. Gait NT. PSYCH: dysthymic, cooperative, pleasant, appropriate speech Course Vital Signs Vital signs: Vital Signs Temperature 36.4 C L 10/10/23 08:45 Pulse 111 H 10/10/23 08:45 Respiratory Rate 20 10/10/23 08:45 Blood Pressure 74/48 L 10/10/23 08:45 Pulse Oximetry 97 10/10/23 08:45 Temperature 36.4 C L 10/10/23 08:45 Temperature Source Oral 10/10/23 08:45 Pulse 111 H 10/10/23 08:45 Respiratory Rate 20 10/10/23 08:45 Blood Pressure 74/48 L 10/10/23 08:45 Blood Pressure Position Sitting 10/10/23 08:45 Pulse Oximetry 97 10/10/23 08:45 Oxygen Delivery Method Room Air 10/10/23 08:45 Oxygen Flow Rate 0 10/10/23 08:45 Pain Level 10 10/10/23 08:45 Medical Decision Making This dictation utilizes [id number] dictation software and may contain unedited grammatical errors. 63 year-old female presents to ED today by POV/wheelchair from a welfare check from her sister, with a chief complaint of nausea/vomiting x2 yesterday, itching, large welts to her back and legs with onset yesterday. Patient is well-known to the department and has chronic alcohol use disorder, usually having a few to several martini's per day. Frequently seen with hypotension. Quality described as itching to her body, feels cold, has welts all over, no radiation to chest pain, shortness of breath, cough, fever, abdominal pain, confusion, neck stiffness, sick contacts. Severity is described as severe. Palliating factors include had some gatorade today. Provoking factors include nothing specific. Events leading up to the incident/Associated Symptoms: Patient denies any ETOH today, states had less than 6 or 7 martinis yesterday. Patients' medical history: COPD, CHF, cachexia, hepatic fibrosis, history of pulmonary embolism, malnutrition, frequent falls, pancreatitis, ascites, bilateral lower extremity edema, alcohol abuse disorder, prolonged QT interval, chronic electrolyte abnormalities, PVD lung mass upper lobe of right lung. Family and social history: Daily hard alcohol use, nicotine dependence, poor nutrition, no exercise. Pertinent exam findings / vital signs include baseline peripheral edema, Accu- Chek sick, mild labored respirations without overt hypoxia, Rales at bases of lungs, no large ascites, has urticarial changes to back and lower extremities some bruising of different ages possibly due to falls. Differential / pathologies of concern include volume overload, anasarca, sepsis, septic shock, viral syndrome, liver failure, biliary cholangitis, pancreatitis, EtOH withdrawal. Diagnostic studies of: -CBC, BMP, lactate, procalcitonin, VBG, CRP/ESR, ammonia, CK, TSH, PT/INR, liver panel, lipase, magnesium, COVID/flu/RSV PCR, BNP, troponin I, blood cultures, urinalysis, EKG, XR chest portable. -Initial lactate 5.6 > due to patients history of CHF, volume overload - will not be giving large bolus of fluids at this time > XR portable chest called down -Procalcitonin 0.2, likely PNA -VBG otherwise benign, CO2 23, normal pH -CBC shows no leukocytosis, low lymphocytes, consider viral syndrome - HgB 10.7 on baseline of ~8-9, likely hemoconcentrated though -CRP 2.1 / ESR 3 -BMP shows mild hyponatremia at 134, normal potassium, anion gap of 12.9, no TAMRA, glucose 108, mildly low calcium at 8.2 -Liver panel unremarkable and baseline with mildly elevated alk phos, mildly elevated conjugated bilirubin, do not suspect obstructive pathology -Magnesium 1.4, will replete IV -Lipase neg -Albumin 2.3 -TSH wnl -PT 11.8, INR 1.2 -Covid/Flu/RSV neg -Blood Cx's pending -UA pending at time of admission -BNP is significantly elevated at 22,000 270 up from 1140 - 6 days ago -Trop <50 -Portable CXR shofws pulmonary edema diffusely, possibly loculated L lower lobe infiltrate, will give ABX empirically. -EKG shows sinus tachycardia at 101 bpm with P waves followed by narrow complex QRS with normal axis, low voltage, slightly prolonged QT QTc, less than 500, T wave inversions in the anterior leads, ST depressions V3 V4, no reciprocal elevations, right bundle branch block- consistent with priors, though ST depression may be more prominent today. Interventions of: -IVF Banana Bag, Albumin 25% infusion, -IV 5mg Valium PRN for EtOH withdrawal symptoms (low stock on IV Ativan) - 1 dose given in ED - CIWA was 17 -Holding NorEpi for response to fluids, patient has history of baseline hypotension -Giving 100mg IV hydrocortisone -Patient placed in Esteban Hugger for warmth -2gm IV Magnesium ordered -roselyn order Lasix when SBP > 95, 40mg IVP - will have NorEpi hung at the ready to push this. If SpO2 <85% suddenly, will pause other infusions to push Lasix & support BP. -Consider 250mL bolus if not responding to all other infusions for some fluid resus. -Discussed case with EM Attending Dr. Solomon for possible central line placement. -Consult hospitalist for ICU admission for septic shock, PNA, CHF exacerbation @1015 - accepted for ICU admission @ 1045. ED Course/Assessment/Plan: 63-year-old female well-known to the department presents today after a welfare check this morning with hypotension, she is a daily drinker of heavy alcohol use, she frequently presents with hypotension. She is quite hypotensive today 74/48, Rales to auscultation likely has pulmonary edema in the setting of chronic CHF. She has chills but no overt fever, I am suspicious for septic etiology. Initial lactate was 5.6, portable chest x-ray shows significant pulmonary edema with a possible loculated left lower lobe infiltrate that is new from last study. Her BNP is acutely elevated from 11 100-22,000 over the last 6 days. She will require careful fluid resuscitation and diuresis, I am not givi ng her 30 cc/kg fluid bolus with her evidence of pulmonary edema on chest x-ray, patient will likely have alcohol withdrawal but in brief record review has not had acute severe EtOH withdrawal seizures. Presented the patient to Dr. Downey for ICU admission for septic shock, pneumonia, CHF exacerbation which was accepted @1045. She has many infusions running including a banana bag, albumin infusion, she received 100 mg of hydrocortisone for possible cortisol suppression as cause of her hypotension due to her many chronic comorbidities-she also has some diffuse welts and hives and reports itching all over, is receiving 2 g of magnesium for mag of 1.4, 2 g of cefepime with vancomycin pending dosed by pharmacy. Her blood pressure improved to a systolic of 95 and I did advise staff radiographer to push 40 mg of IV Lasix only with norepinephrine hanging at bedside in case of hypotension. -Did have discussion with the patient, she was refusing to be on the monitor, she agrees for monitoring. I reviewed code status with her and she wishes to be FULL CODE. Disposition of Septic Shock, Pneumonia, CHF Exacerbation. Patient verbalized understanding of the plan and return to ED criteria and engaged in shared decision making. Medical Records Medical records reviewed: Yes I reviewed the patient's medical records. Imaging Data Radiologic Study: Attestation: I personally reviewed and interpreted this imaging study as follows: Imaging: X-Ray My impression: Pulmonary Edema Radiologist's impression: EXAM: XR PORTABLE CHEST AP CLINICAL HISTORY: tachy, CHF history, ?edema. TECHNIQUE: 2D digital imaging was performed. COMPARISON: CT CT CHEST PE ABD PELVIS W from 09/13/2023 FINDINGS: Single AP portable view. Heart size is upper normal. The mediastinum is not widened. Bilateral interstitial pulmonary venous hypertension pattern noted, possibly an element of pulmonary edema. There is also some increased markings-area of infiltrate in the left lower lobe posterior basal segment. There is now a moderate sized left pleural effusion which was not evident on the prior study 6 days ago nor on this CT scan of 09/13/2023.. IMPRESSION: Left lower lobe infiltrate and left pleural effusion, possibly loculated. This was not evident 1 week ago. Bilateral interstitial disease again noted which may be element of interstitial pulmonary edema. There is no pleural effusion on the right side. Lab Data Lab results reviewed: Yes I reviewed the patient's lab results. Labs: 10/10/23 09:49 Blood Blood Culture - Pending 10/10/23 09:30 Blood Blood Culture - Pending Laboratory Tests Range/Units 10/10/23 10/10/23 10/10/23 08:50 08:55 09:30 WBC (4.4-10.8) 10^3/uL 5.92 RBC (3.93-5.22) 10^6/uL 3.01 L Hgb (11.2-15.7) g/dL 10.7 L Hct (36.0-46.0) % 32.8 L MCV (80-95) fL 109 H D MCH (27.0-33.0) pg 35.5 H MCHC (32.0-36.0) % 32.6 D RDW (11.7-14.6) % 15.8 H Plt Count (130-400) 10^3/uL 357 MPV (8.0-11.0) fL 10.0 Immature Gran % % 0.7 Neutrophils % % 70.9 Lymphocytes % % 15.7 Monocytes % % 11.8 Eosinophils % % 0.2 Basophils % % 0.7 Nucleated RBC % (0.0-0.3) % 0.0 Absolute Neutrophils (1.2-6.7) 10^3/uL 4.20 Absolute Lymphocytes (1.2-3.4) 10^3/uL 0.93 L Absolute Monocytes (0.1-0.8) 10^3/uL 0.70 Absolute Eosinophils (0.0-0.7) 10^3/uL 0.01 Absolute Basophils (0.0-0.2) 10^3/uL 0.04 ESR (0-30) mm/hr 3 PT (9.1-11.1) sec 11.8 H INR (0.9-1.1) 1.2 H VBG pH (7.31-7.41) 7.37 VBG pCO2 (41-51) mmHg 43 VBG pO2 mmHg 31 VBG HCO3 (23-28) mmol/L 25 VBG Total CO2 (24-29) mmol/L 23 L VBG O2 Saturation % 46 VBG Base Excess (-2-3) mmol/L -1 VBG Lactate (0.6-1.4) mmol/L 5.6 H* Sodium (136-145) mmol/L 134 L Potassium (3.5-5.1) mmol/L 3.6 Chloride (98-107) mmol/L 96 L Carbon Dioxide (21.0-32.0) mmol/L 25.1 Anion Gap (3-11) mmol/L 12.9 H BUN (7-18) mg/dL 5 L Creatinine (0.55-1.02) mg/dL 1.0 Est GFR (CKD-EPI 2020) (mL/min/1.73m2) 63.70 Glucose (74-106) mg/dL 108 H Calcium (8.5-10.1) mg/dL 8.2 L Magnesium (1.8-2.4) mg/dL 1.4 L Total Bilirubin (0.2-1.0) mg/dL 0.8 Conjugated Bilirubin (0.0-0.2) mg/dL 0.3 H AST (15-37) U/L 61 H ALT (14-59) U/L 22 Alkaline Phosphatase (46-116) U/L 156 H Ammonia (11-32) umol/L 52 H Creatine Kinase (26-192) U/L 47 Troponin I (< or =60) ng/L < 50 C-Reactive Protein (<or=0.5) mg/dL 2.10 H NT-Pro-B Natriuret Pep (<300) pg/mL 40531 H Total Protein (6.4-8.2) g/dL 6.0 L Albumin (3.4-5.0) g/dL 2.3 L Lipase (16-77) U/L 13 L Procalcitonin ng/mL 0.2 TSH (0.36-3.74) uIU/mL 1.93 Quality:SDOH Health Related Social Needs: Health related social needs transpo insecurity Critical Care Time Critical Care Time Critical Care Time: Yes Total Critical Care Time: 30 Attestation: I have personally spent 30 minutes of critical care time, exclusive of time spent on any procedures, in evaluation and management of this critically ill patient?s condition of septic shock with hypotension, pulmonary edema, need for hemodynamic support in conjunction with diuresis. I provided the following critical care treatment time spent at bedside urgently evaluating the patients hemodynamics, cardiopulmonary status. PFSH All Active Problems (Updated 10/10/23 @ 10:53 by AMIE Orellana) Pneumonia (Acute) Septic shock (Acute) CHF exacerbation (Acute) Edema, peripheral (Acute) Cellulitis of left leg (Acute) Ambulatory dysfunction (Acute) Edema of both lower legs (Acute) Congestive heart failure (Chronic) COPD exacerbation (Acute) Cellulitis (Acute) Severe sepsis (Acute) Prolonged QT interval (Acute) Respiratory failure (Acute) Leg pain (Acute) Sepsis (Acute) Shock (Acute) Hypomagnesemia (Acute) Hypokalemia (Acute) Difficulty walking (Acute) PVD (peripheral vascular disease) (Chronic) Atherosclerosis of aorta (Acute) Leg swelling (Acute) Acute hypokalemia (Acute) Hypoglycemia (Acute) Alcoholic ketoacidosis (Acute) Laceration of scalp (Acute) Fall (Acute) Chronic left hip pain (Acute) Contusion of hip (Acute) Closed intertrochanteric fracture of left hip (Acute) s/p IMN fixation (05/18/23) Smoker (Acute) Closed fracture of left hip (Acute) Fall (Acute) Anxiety (Chronic) Cavitary lesion of lung (Acute) H/O ETOH abuse (Acute) Tobacco use disorder (Acute 01/28/14) Pleural effusion (Acute) Hypomagnesemia (Acute) Fluid overload (Acute) Chest pain due to GERD (Acute) Chest wall muscle strain (Acute) Hypokalemia (Acute) Emphysema lung (Acute) Nicotine dependence, cigarettes, uncomplicated (Acute) Atherosclerosis (Acute) Gastric wall thickening (Acute) Stenosis of right internal carotid artery (Acute) Mass of upper lobe of right lung (Acute) Alcohol abuse (Chronic) Dehydration (Acute) Diarrhea (Acute) Hypomagnesemia (Chronic) B12 deficiency (Acute) Ascites (Acute) Chronic liver disease (Chronic) Weight loss, non-intentional (Acute) Macrocytic anemia (Acute) Early satiety (Acute) Folate deficiency (Acute) Hypomagnesemia (Acute) Hypokalemia (Acute) Leg pain (Acute) Cellulitis (Acute) Bilateral leg ulcer (Acute) Medical History Pulmonary nodule COPD (chronic obstructive pulmonary disease) Hypomagnesemia Cachexia Hepatic fibrosis Ulcer of lower extremity Hair loss Vitamin D deficiency Chest pain Gastroesophageal reflux disease Hx pulmonary embolism COPD (chronic obstructive pulmonary disease) Chronic vomiting Malnutrition Frequent falls Bilateral leg pain Pancreatitis Diastolic dysfunction Folate deficiency anemia Ascites Bilateral lower extremity edema Unintentional weight loss Alcohol abuse Tobacco dependence syndrome Tobacco abuse Surgical History punch biopsy, skin of ankle, right lateral (11/24/16) negative for malignancy, sparse inflammation and reactive blood vessels foot surgery (~2000) Ligation of fallopian tube (~1999) ENT/Nasal surgery (~2007) Family History Father Lung disease Cancer Lung Social History Smoking/Tobacco Use Status: Current every day Tobacco Type: cigarettes Tobacco: How many years used: 45 Quit status: considering quitting Second Hand Exposure: Yes Smoking risk assessment performed?: Yes Alcohol Intake: current Alcohol Intake frequency: 3 or more drinks per day Alcohol type: wine and hard liquor Counseling given: Yes Counseling provided: provider counseling Drug use: Never Substance use type: marijuana Housing: apartment Current gender identity: female Do you feel safe at home: Yes Do you feel safe in your relationship?: Yes Additional Social history: Lives alone in studio in [facility], 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 Grew up in [facility], sisters in area. History History Para 0 Hx # Term Pregnancies Multiple births Hx # Pregnancies Ectopic pregnancies AB induced Hx Number of Living Children AB spontaneous
--- NOTE | 2023-10-10 09:00 | RT.EKG_ITS ---
APPROVED REPORT Exam: Resting ECG Reason for Exam: baseline/screening, tachy Patient Location: E HR:101 bpm ECG Measurements Heart Rate 101 AXIS RI 143 P 39 QRSd 114 QRS 33 QT 381 T 0 QTc 494 Conclusion Sinus tachycardia...rate> 99 Probable left atrial enlargement...P >50mS, <-0.10mV V1 Incomplete right bundle branch block...QRSd >112, terminal axis(90,270) sinus tachycardia, normal axis, RBBB
[2023-10-10 09:08] LABS: BE (Venous) -1 mmol/L (-2-3); HCO3 (Venous) 25 mmol/L (23-28); O2 Sat (Venous) 46 %; TCO2 (Venous) 23 mmol/L (24-29); pCO2 (Venous) 43 mmHg (41-51); pH (Venous) 7.37 (7.31-7.41); pO2 (Venous) 31 mmHg
[2023-10-10 09:09] LABS: Abs Immature Grans 0.04 10^3/uL (0.0-0.06); Absolute Basophil Count 0.04 10^3/uL (0.0-0.2); Absolute Eosinophil Count 0.01 10^3/uL (0.0-0.7); Absolute Lymphocyte Count 0.93 10^3/uL (1.2-3.4); Basophils % 0.7 %; Eosinophils % 0.2 %; HCT 32.8 % (36.0-46.0); HGB 10.7 g/dL (11.2-15.7); Immature Grans % 0.7 %; Lactate 5.6 mmol/L (0.6-1.4); Lymphocytes % 15.7 %; MCH 35.5 pg (27.0-33.0); MCHC 32.6 % (32.0-36.0); MCV 109 fL (80-95); Monocytes % 11.8 %; Neutrophils % 70.9 %; Platelet Count 357 10^3/uL (130-400); RBC 3.01 10^6/uL (3.93-5.22); RDW 15.8 % (11.7-14.6); WBC 5.92 10^3/uL (4.4-10.8)
[2023-10-10 09:12] LABS: ESR 3 mm/hr (0-30)
--- NOTE | 2023-10-10 09:28 | DI.RAD_ITS ---
Exam(s) XR PORTABLE CHEST AP EXAM: XR PORTABLE CHEST AP CLINICAL HISTORY: tachy, CHF history, ?edema. TECHNIQUE: 2D digital imaging was performed. COMPARISON: CT CT CHEST PE ABD PELVIS W from 09/13/2023 FINDINGS: Single AP portable view. Heart size is upper normal. The mediastinum is not widened. Bilateral interstitial pulmonary venous hypertension pattern noted, possibly an element of pulmonary edema. There is also some increased markings-area of infiltrate in the left lower lobe posterior bas al segment. There is now a moderate sized left pleural effusion which was not evident on the prior study 6 days a go nor on this CT scan of 09/13/2023.. IMPRESSION: Left lower lobe infiltrate and left pleural effusion, possibly loculated. This was not evident 1 wee k ago. Bilateral interstitial disease again noted which may be element of interstitial pulmonary edema. The re is no pleural effusion on the right side. DATA REPOSITORY: RADIATION DOSE DELIVERED:
[2023-10-10 09:36] LABS: ALT 22 U/L (14-59); AST 61 U/L (15-37); Albumin 2.3 g/dL (3.4-5.0); Alkaline Phosphatase 156 U/L (46-116); Anion Gap 12.9 mmol/L (3-11); BUN 5 mg/dL (7-18); Bilirubin, Direct 0.3 mg/dL (0.0-0.2); Bilirubin, Total 0.8 mg/dL (0.2-1.0); CO2 25.1 mmol/L (21.0-32.0); Calcium 8.2 mg/dL (8.5-10.1); Chloride 96 mmol/L (98-107); Creatine Kinase 47 U/L (26-192); Glucose 108 mg/dL (74-106); Lipase 13 U/L (16-77); Magnesium 1.4 mg/dL (1.8-2.4); NT-proBNP 22270 pg/mL (<300); Potassium 3.6 mmol/L (3.5-5.1); Sodium 134 mmol/L (136-145); TSH (W/Ref FT4) 1.93 uIU/mL (0.36-3.74); Troponin I < 50 ng/L (< or =60)
[2023-10-10] MEDS: diazePAM 10 MG/2 ML SYR 5 MG IVP ×2 (09:46→17:45)
[2023-10-10 09:50] LABS: INR 1.2 (0.9-1.1); Prothrombin Time 11.8 sec (9.1-11.1)
[2023-10-10 09:56] LABS: Ammonia 52 umol/L (11-32)
[2023-10-10] MEDS: MAGNESIUM SULFATE 8.12 MEQ, MULTIVITAMIN 10 ML, THIAMINE 100 MG, FOLIC ACID 1 MG in Nor... 168.867 MG IV (10:02)
[2023-10-10] MEDS: ALBUMIN HUMAN 25 GM/100 ML BTL IVPB (10:08)
[2023-10-10] MEDS: Hydrocortisone SOD SUC. 100 MG VIAL IVP ×2 (10:12→17:35)
[2023-10-10] MEDS: CEFEPIME 2 GM in Normal Saline 100 ML IVPB ×2 (10:18→22:00)
[2023-10-10 10:19] LABS: Procalcitonin 0.2 ng/mL
[2023-10-10] MEDS: Calcium Carbonate *TUMS* 500 MG CHEW (10:40)
[2023-10-10] MEDS: MAGNESIUM SULFATE 2 GM/50 ML BAG IVINF (10:44)
[2023-10-10] MEDS: VANCOMYCIN/WATER (PEG) 1.25 GM/250 ML BAG IV (10:52)
[2023-10-10 10:59] LABS: COVID-19 PCR Negative (Negative); Influenza A PCR Negative (Negative); Influenza B PCR Negative (Negative); RSV PCR Negative (Negative); Source Nasopharynx
[2023-10-10] MEDS: Furosemide 40 MG/4 ML VIAL IVP (11:09)
[2023-10-10] MEDS: Enoxaparin 40 MG/0.4 ML SYR SC (12:52)
--- NOTE | 2023-10-10 13:37 | HPE_ITS ---
Date of service: 10/10/23 Time of Service: 12:34 Assessment and Plan Assessment and plan (1) Septic shock: Status: Acute Assessment and plan: Presentation consistent with septic shock with tachycardia, elevated lactate, and hypotension despite initial fluid. broad spectrum antibiotics as above. Norepinephrine ordered but she has not needed it yet with MAPs >65 She only got 1 liter of fluids due to concern for CHF, I think she is still dry, give additional 500ml to bring to 30ml/kg bolus. With new dramatic elevation of BNaP must consider cardiogenic shock, but clinically less consistent, extremities warm, not clearly fluid overloaded. With report of hives in setting of shock, must consider anaphylaxis. However I don't see hives on my exam, and she is often hypotensive, overall picture not c/w anaphylaxis (2) Pneumonia: Status: Acute Assessment and plan: Given recent hospitalizations and signs of severe illness with a new infiltrate on CXR I agree with broad coverage to start, continue cefepime and vancomycin. MRSA swab, stop vanco if negative. Viral screens negative. Get sputum cultures if any sputum production. She is at risk for fungal infection as well as aspiration with her alcohol use disorder. Will consult surgery about possibly sampling the loculated effusion Qualifiers: Laterality: left (3) CHF exacerbation: Status: Acute Assessment and plan: As above BNaP is quite high. CXR with some possible congestion, but less clear. Clinically she is not fluid overloaded. EKG and troponin not c/w ACS. She just had echocardiogram 09/26 with normal ejection fraction. (4) Edema of both lower legs: Status: Acute Assessment and plan: This is similar to her baseline. No signs of active infection. (5) Alcohol abuse: Assessment and plan: For the first time she is interested in treatment for AUD. We luisaifly reviewed rehabilitation placement, possible medical therapy. Coordinate around discharge once she has improved. She did receive diazepam in the ED but has not had significant withdrawal during recent admissions. I don't think loading with phenobarbital is indicated. Monitor clinically. (6) Nicotine dependence, cigarettes, uncomplicated: Status: Acute Assessment and plan: nicotene lozynges prn (7) Hypomagnesemia: Status: Chronic Assessment and plan: recieved magnesium in ED, follow. (8) Chronic liver disease: Status: Chronic Assessment and plan: Associated with alcohol use disorder. She has not been diagnosed with cirrhosis. Monitor. (9) Macrocytic anemia: Status: Acute Assessment and plan: at baseline, follow (10) DVT prophylaxis: Status: Resolved Assessment and plan: enoxaparin History of Present Illness History of Present Illness Chief Complaint: cough, vomiting, itchy rash N arrative: 63 yo F with active daily alcohol use, frequent admissions with hypotension and HFpEF who presented today with 2 days of increasing cough. skin itching, and post-tussive emesis. She states she started coughing the day before the admission. She did vomit twice after coughing fits. Cough is not productive, no blood. No blood or coffee grounds in vomit. Associated with this she has had diffuse itching with welts on her back and legs. She denies fever but she feels cold. She has not had chest pain or shortness of breath. She has not had rhinorrhea, sinus congestion, or sore throat. No diarrhea. She did drink 2-3 gatorade bottles this morning. Her sister checked on her the morning of admission and brought her in to the ED. Her last alcohol was the day prior to admission, 4-5 martinis. She has never been to rehabilitation or taken medication for alcohol use disorder but she thinks it is time now to stop drinking. Review of Systems All systems reviewed & are unremarkable except as noted in HPI and below Constitutional Constitutional: Denies headache(s) ENT Ears, Nose, Mouth, and Throat: Denies headache(s) Neurologic Neurologic: Denies confusion, Denies headache(s) and Denies tremor(s) Psychiatric Psychiatric: Reports anxiety and Denies confusion PFSH All Active Problems (Updated 10/10/23 @ 16:08 by Nikunj Downey) Pneumonia (Acute) Septic shock (Acute) CHF exacerbation (Acute) Edema, peripheral (Acute) Cellulitis of left leg (Acute) Ambulatory dysfunction (Acute) Edema of both lower legs (Acute) Congestive heart failure (Chronic) COPD exacerbation (Acute) Cellulitis (Acute) Severe sepsis (Acute) Prolonged QT interval (Acute) Respiratory failure (Acute) Leg pain (Acute) Sepsis (Acute) Shock (Acute) Hypomagnesemia (Acute) Hypokalemia (Acute) Difficulty walking (Acute) PVD (peripheral vascular disease) (Chronic) Atherosclerosis of aorta (Acute) Leg swelling (Acute) Acute hypokalemia (Acute) Hypoglycemia (Acute) Alcoholic ketoacidosis (Acute) Laceration of scalp (Acute) Fall (Acute) Chronic left hip pain (Acute) Contusion of hip (Acute) Closed intertrochanteric fracture of left hip (Acute) s/p IMN fixation (05/18/23) Smoker (Acute) Closed fracture of left hip (Acute) Fall (Acute) Anxiety (Chronic) Cavitary lesion of lung (Acute) H/O ETOH abuse (Acute) Tobacco use disorder (Acute 01/28/14) Pleural effusion (Acute) Hypomagnesemia (Acute) Fluid overload (Acute) Chest pain due to GERD (Acute) Chest wall muscle strain (Acute) Hypokalemia (Acute) Emphysema lung (Acute) Nicotine dependence, cigarettes, uncomplicated (Acute) Atherosclerosis (Acute) Gastric wall thickening (Acute) Stenosis of right internal carotid artery (Acute) Mass of upper lobe of right lung (Acute) Alcohol abuse (Chronic) Dehydration (Acute) Diarrhea (Acute) Hypomagnesemia (Chronic) B12 deficiency (Acute) Ascites (Acute) Chronic liver disease (Chronic) Weight loss, non-intentional (Acute) Macrocytic anemia (Acute) Early satiety (Acute) Folate deficiency (Acute) Hypomagnesemia (Acute) Hypokalemia (Acute) Leg pain (Acute) Cellulitis (Acute) Bilateral leg ulcer (Acute) Medical History Pulmonary nodule COPD (chronic obstructive pulmonary disease) Hypomagnesemia Cachexia Hepatic fibrosis Ulcer of lower extremity Hair loss Vitamin D deficiency Chest pain Gastroesophageal reflux disease Hx pulmonary embolism COPD (chronic obstructive pulmonary disease) Chronic vomiting Malnutrition Frequent falls Bilateral leg pain Pancreatitis Diastolic dysfunction Folate deficiency anemia Ascites Bilateral lower extremity edema Unintentional weight loss Alcohol abuse Tobacco dependence syndrome Tobacco abuse Surgical History punch biopsy, skin of ankle, right lateral (11/24/16) negative for malignancy, sparse inflammation and reactive blood vessels foot surgery (~2000) Ligation of fallopian tube (~1999) ENT/Nasal surgery (~2007) Family History Father Lung disease Cancer Lung Social History Smoking/Tobacco Use Status: Current every day Tobacco Type: cigarettes Tobacco: How many years used: 45 Quit status: considering quitting Second Hand Exposure: Yes Smoking risk assessment performed?: Yes Alcohol Intake: current Alcohol Intake frequency: 3 or more drinks per day Alcohol type: wine and hard liquor Counseling given: Yes Counseling provided: provider counseling Drug use: Never Substance use type: marijuana Housing: apartment Current gender identity: female Do you feel safe at home: Yes Do you feel safe in your relationship?: Yes Additional Social history: Lives alone in studio in [facility], 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 Grew up in [facility], sisters in area. History History 2 Para 0 Hx # Term Pregnancies Multiple births Hx # Pregnancies Ectopic pregnancies AB induced Hx Number of Living Children AB spontaneous Meds Allergies and Home Medications Allergies Allergy/AdvReac Type Severity Reaction Status Date / Time bacitracin Allergy Mild localized Verified 10/10/23 08:58 [From Neosporin redness ([id number])] neomycin Allergy Mild localized Verified 10/10/23 08:58 [From Neosporin redness ([id number])] polymyxin B Allergy Mild localized Verified 10/10/23 08:58 [From Neosporin redness ([id number])] Home Medications Medication Instructions Recorded Confirmed Type multivitamin (Multiple Vitamins 1 tab PO DAILY #30 tabs 08/13/20 10/10/23 Rx tablet) albuterol sulfate 90 mcg/actuation 2 puff inhalation Q6H PRN 01/18/22 10/10/23 Rx aerosol inhaler shortness of breath or wheezing #8.5 grams thiamine HCl (vitamin B1) 250 mg 250 mg PO DAILY 04/19/23 10/10/23 History tablet tiotropium 2.5 mcg-olodaterol 2.5 2 puff inhalation Q24H #4 grams 05/04/23 10/10/23 Rx mcg/actuation mist for inhalation (Stiolto Respimat) ipratropium 0.5 mg-albuterol 3 mg 3 ml inhalation Q4H PRN wheezing 05/10/23 10/10/23 Rx (2.5 mg base)/3 mL nebulization #540 mL soln ibuprofen 600 mg tablet 600 mg PO TID PRN #30 tabs 05/20/23 10/10/23 Rx gabapentin 300 mg capsule 300 mg PO TID 06/06/23 10/10/23 History omeprazole 40 mg capsule,delayed 40 mg PO DAILY 06/12/23 10/10/23 History release loperamide 1 mg/7.5 mL oral liquid 2 mg (15 mL) PO Q1-4H PRN #120 mL 08/02/23 10/10/23 Rx (Imodium A-D) magnesium oxide 400 mg (241.3 mg 400 mg PO DAILY #90 tabs 10/06/23 10/10/23 Rx magnesium) tablet potassium chloride 20 mEq 40 meq (2 x 20 mEq) PO DAILY #90 10/06/23 10/10/23 Rx tablet,extended tabs release(part/cryst) (Klor-Con M) Exam Narrative Exam Narrative: GEN: Alert and oriented x 4, uncomfortable but cooperative, able to give linear history. HEENT: Head atraumatic. Conjunctiva clear, no icterus. PEERL, EOMI. no rhinorrhea. MMM, OP benign. Neck is supple with no masses or lymphadenopathy, trachea midline LUNGS: Mild basilar rales on right, diminished breath sounds on left. No wheezing. Normal effort, slight cough noted CV: RRR. No murmur, gallops, or rubs. cap refill in toes <1sec ABD: +BS, soft, NT/ND, no fluid wave or hepatosplenomegaly. EXT: no cyanosis, clubbing. 1+ bilateral pitting edema to mid shins MSK: No joint redness or swelling. Diffuse tenderness of pink area of lower legs NEURO: CN 2-12 grossly intact. Intact movement of 4 extremities. Normal speech and coordination, no tremor. DTRs 1+ john patella john SKIN: Melasma of face. Dry and warm. No angiomata or large veins noted. I do not appreciate hives/welts on her back, legs, or elsewhere. or open wounds. Dark bruise left lindo. Skin on both lower legs from calves down slightly pink, diffusely tender, no cords. PSYCH: normal mood and affect, normal thought process, no hallucinations Results Imaging Chest x-ray: report reviewed (Left lower lobe infiltrate and left pleural effusion, possibly loculated. This was not evident 1 week ago. Bilateral interstitial disease again noted which may be element of interstitial pulmonary edema. There is no pleural effusion on the right side.) and image reviewed EKG: report reviewed and image reviewed (sinus tachycardia 100bpm, nl axis. incomplete RBBB. no ischemic changes.) Labs 10/10/23 08:55 10/10/23 08:55 Labs: Laboratory Results - last 24 hr 10/10/23 10/10/23 10/10/23 08:50 08:55 09:18 WBC 5.92 RBC 3.01 L Hgb 10.7 L Hct 32.8 L MCV 109 H D MCH 35.5 H MCHC 32.6 D RDW 15.8 H Plt Count 357 MPV 10.0 Immature Gran % 0.7 Neutrophils % 70.9 Lymphocytes % 15.7 Monocytes % 11.8 Eosinophils % 0.2 Basophils % 0.7 Nucleated RBC % 0.0 Absolute Neutrophils 4.20 Absolute Lymphocytes 0.93 L Absolute Monocytes 0.70 Absolute Eosinophils 0.01 Absolute Basophils 0.04 ESR 3 PT INR VBG pH 7.37 VBG pCO2 43 VBG pO2 31 VBG HCO3 25 VBG Total CO2 23 L VBG O2 Saturation 46 VBG Base Excess -1 VBG Lactate 5.6 H* Sodium 134 L Potassium 3.6 Chloride 96 L Carbon Dioxide 25.1 Anion Gap 12.9 H BUN 5 L Creatinine 1.0 Est GFR (CKD-EPI 2020) 63.70 Glucose 108 H Calcium 8.2 L Magnesium 1.4 L Total Bilirubin 0.8 Conjugated Bilirubin 0.3 H AST 61 H ALT 22 Alkaline Phosphatase 156 H Ammonia Creatine Kinase 47 Troponin I < 50 C-Reactive Protein 2.10 H NT-Pro-B Natriuret Pep 89970 H Total Protein 6.0 L Albumin 2.3 L Lipase 13 L Procalcitonin 0.2 TSH 1.93 COVID-19 Source Nasopharynx SARS-CoV-2 (PCR) Negative Influenza Type A (PCR) Negative Influenza Type B (PCR) Negative RSV (PCR) Negative 10/10/23 09:30 WBC RBC Hgb Hct MCV MCH MCHC RDW Plt Count MPV Immature Gran % Neutrophils % Lymphocytes % Monocytes % Eosinophils % Basophils % Nucleated RBC % Absolute Neutrophils Absolute Lymphocytes Absolute Monocytes Absolute Eosinophils Absolute Basophils ESR PT 11.8 H INR 1.2 H VBG pH VBG pCO2 VBG pO2 VBG HCO3 VBG Total CO2 VBG O2 Saturation VBG Base Excess VBG Lactate Sodium Potassium Chloride Carbon Dioxide Anion Gap BUN Creatinine Est GFR (CKD-EPI 2020) Glucose Calcium Magnesium Total Bilirubin Conjugated Bilirubin AST ALT Alkaline Phosphatase Ammonia 52 H Creatine Kinase Troponin I C-Reactive Protein NT-Pro-B Natriuret Pep Total Protein Albumin Lipase Procalcitonin TSH COVID-19 Source SARS-CoV-2 (PCR) Influenza Type A (PCR) Influenza Type B (PCR) RSV (PCR) Last Vital Signs Temp 36.8 C 10/10/23 12:57 Pulse 94 H 10/10/23 12:57 Resp 18 10/10/23 12:57 BP 98/74 L 10/10/23 12:57 Pulse Ox 98 10/10/23 12:57 PAWSS Have you Been Recently Intoxicated or Drunk Within the Last 30 days?: Yes Have you Ever Experienced Previous Episodes of Alcohol Withdrawal?: No Have you ever Experienced Withdrawal Seizures?: No Have you ever Experienced Delirium Tremens(DT)s?: No Have you ever undergone Alcohol Rehabilitation Treatment (i.e, inpt ot outpatient treatment programs)?: No Have you ever Experienced Blackouts?: No Have you ever Combined Alcohol with other Downers within the last 90 days?: Yes Have you ever Combined Alcohol with any other Substance of Abuse during the last 90 days?: Yes Positive Blood Alcohol level on Presentation? [PCS.BAL]: No Evidence of Increased Autonomic Activity (i.e. HR>120, tremor, sweating, agitation, nausea)?: No Result: 3 Time Spent Time spent with Patient: >75 minutes Time was spent: preparing to see the patient(eg.review tests), obtaining and/or reviewing separately otained hiistory, ordering medications,tests, procedures, referring, communicating with other health acute care certified nursing assistant, indepentently interpreting results, counseling the patient and care coordination
--- NOTE | 2023-10-10 14:04 | W.PC.ACHO ---
Registration Status: ADM IN Primary Language: Preferred Language: Yoruba ED Information & Data Chief Complaint GenMedical 10/10/23 11:38 Chief Complaint GenMedical 10/10/23 08:59 Triage Note pt feels terrible, entire 10/10/23 08:45 body itches, completely covered in huge welts, incontinent of stool in the night and vomited x 2. Did not answer phone so sister called a welfare check on her Medical / Surgical History (Last Reviewed 10/05/23 @ 01:19 by Nikunj Downey) Pulmonary nodule COPD (chronic obstructive pulmonary disease) Hypomagnesemia Cachexia Hepatic fibrosis Ulcer of lower extremity Hair loss Vitamin D deficiency Chest pain Gastroesophageal reflux disease Hx pulmonary embolism COPD (chronic obstructive pulmonary disease) Chronic vomiting Malnutrition Frequent falls Bilateral leg pain Pancreatitis Diastolic dysfunction Folate deficiency anemia Ascites Bilateral lower extremity edema Unintentional weight loss Alcohol abuse Tobacco dependence syndrome Tobacco abuse (Last Reviewed 10/05/23 @ 01:19 by Nikunj Downey) punch biopsy, skin of ankle, right lateral (11/24/16) foot surgery (~2000) Ligation of fallopian tube (~1999) ENT/Nasal surgery (~2007) Most Recent Vital Signs Temperature 36.8 C 10/10/23 12:57 Temperature Source Temporal Artery Scan 10/10/23 12:57 Pulse 94 H 10/10/23 12:57 Pulse 97 H 10/10/23 11:31 Respiratory Rate 18 10/10/23 12:57 Respiratory Effort Normal, Non-Labored 10/10/23 12:57 Respiratory Depth Normal 10/10/23 12:57 Respiratory Pattern Normal 10/10/23 12:57 Blood Pressure 98/74 L 10/10/23 12:57 Blood Pressure Mean 82 10/10/23 12:57 Blood Pressure Position Supine 10/10/23 12:57 Pulse Oximetry 98 10/10/23 12:57 Oxygen Delivery Method Room Air 10/10/23 12:57 Oxygen Flow Rate 0 10/10/23 12:57 Pain Level 8 10/10/23 12:57 Allergies bacitracin [From Neosporin ([id number])] Allergy (Mild, Verified 10/10/23 08:58) localized redness neomycin [From Neosporin ([id number])] Allergy (Mild, Verified 10/10/23 08:58) localized redness polymyxin B [From Neosporin ([id number])] Allergy (Mild, Verified 10/10/23 08:58) localized redness Precautions Isolation Standard precaution 10/10/23 11:38 Active Medications Generic Name Dose Route Start Last Admin Trade Name Freq PRN Reason Stop Dose Admin Diazepam 5 mg 10/10/23 09:27 10/10/23 09:46 Diazepam 10 Mg/2 Ml Syr IVP 5 mg Q2H PRN PRN Administration Enoxaparin Sodium 40 mg 10/10/23 12:00 10/10/23 12:52 Enoxaparin 40 Mg/0.4 Ml Syr SC 40 mg Q24H SIVA Administration Magnesium Sulfate 8.12 meq/ 1,013.2 mls @ 168.867 mls/hr 10/10/23 09:02 10/10/23 10:42 Multivitamins 10 ml/ Thiamine IV 10/10/23 15:01 167 mls/hr HCl 100 mg/ Folic Acid 1 mg/ INFUSION ONE Infusion Sodium Chloride IV IV Catheter Type [Left Forearm Peripheral IV ] IV Catheter Type [Right Nexiva Diffusics Forearm] IV Catheter Gauge [Left 20 Forearm] IV Catheter Gauge [Right 20 Forearm] Diet Orders Category Date Time Status Heart Healthy Eating [DIET] Nutrition 10/10/23 Lunch Active Diagnostics 10/10/23 10/10/23 10/10/23 Range/Units 09:30 09:18 08:55 WBC 5.92 (4.4-10.8) 10^3/uL RBC 3.01 L (3.93-5.22) 10^6/uL Hgb 10.7 L (11.2-15.7) g/dL Hct 32.8 L (36.0-46.0) % MCV 109 H D (80-95) fL MCH 35.5 H (27.0-33.0) pg MCHC 32.6 D (32.0-36.0) % RDW 15.8 H (11.7-14.6) % Plt Count 357 (130-400) 10^3/uL MPV 10.0 (8.0-11.0) fL Immature Gran % 0.7 % Neutrophils % 70.9 % Lymphocytes % 15.7 % Monocytes % 11.8 % Eosinophils % 0.2 % Basophils % 0.7 % Nucleated RBC % 0.0 (0.0-0.3) % Absolute Neutrophils 4.20 (1.2-6.7) 10^3/uL Absolute Lymphocytes 0.93 L (1.2-3.4) 10^3/uL Absolute Monocytes 0.70 (0.1-0.8) 10^3/uL Absolute Eosinophils 0.01 (0.0-0.7) 10^3/uL Absolute Basophils 0.04 (0.0-0.2) 10^3/uL ESR 3 (0-30) mm/hr PT 11.8 H (9.1-11.1) sec INR 1.2 H (0.9-1.1) VBG pH 7.37 (7.31-7.41) VBG pCO2 43 (41-51) mmHg VBG pO2 31 mmHg VBG HCO3 25 (23-28) mmol/L VBG Total CO2 23 L (24-29) mmol/L VBG O2 Saturation 46 % VBG Base Excess -1 (-2-3) mmol/L VBG Lactate 5.6 H* (0.6-1.4) mmol/L Sodium 134 L (136-145) mmol/L Potassium 3.6 (3.5-5.1) mmol/L Chloride 96 L (98-107) mmol/L Carbon Dioxide 25.1 (21.0-32.0) mmol/L Anion Gap 12.9 H (3-11) mmol/L BUN 5 L (7-18) mg/dL Creatinine 1.0 (0.55-1.02) mg/dL Est GFR (CKD-EPI 2020) 63.70 (mL/min/1.73m2) Glucose 108 H (74-106) mg/dL Calcium 8.2 L (8.5-10.1) mg/dL Magnesium 1.4 L (1.8-2.4) mg/dL Total Bilirubin 0.8 (0.2-1.0) mg/dL Conjugated Bilirubin 0.3 H (0.0-0.2) mg/dL AST 61 H (15-37) U/L ALT 22 (14-59) U/L Alkaline Phosphatase 156 H (46-116) U/L Ammonia 52 H (11-32) umol/L Creatine Kinase 47 (26-192) U/L Troponin I < 50 (< or =60) ng/L C-Reactive Protein (<or=0.5) mg/dL NT-Pro-B Natriuret Pep 98898 H (<300) pg/mL Total Protein 6.0 L (6.4-8.2) g/dL Albumin 2.3 L (3.4-5.0) g/dL Lipase 13 L (16-77) U/L Procalcitonin 0.2 ng/mL TSH 1.93 (0.36-3.74) uIU/mL COVID-19 Source Nasopharynx SARS-CoV-2 (PCR) Negative (Negative) Influenza Type A (PCR) Negative (Negative) Influenza Type B (PCR) Negative (Negative) RSV (PCR) Negative (Negative) 10/10/23 Range/Units 08:50 WBC (4.4-10.8) 10^3/uL RBC (3.93-5.22) 10^6/uL Hgb (11.2-15.7) g/dL Hct (36.0-46.0) % MCV (80-95) fL MCH (27.0-33.0) pg MCHC (32.0-36.0) % RDW (11.7-14.6) % Plt Count (130-400) 10^3/uL MPV (8.0-11.0) fL Immature Gran % % Neutrophils % % Lymphocytes % % Monocytes % % Eosinophils % % Basophils % % Nucleated RBC % (0.0-0.3) % Absolute Neutrophils (1.2-6.7) 10^3/uL Absolute Lymphocytes (1.2-3.4) 10^3/uL Absolute Monocytes (0.1-0.8) 10^3/uL Absolute Eosinophils (0.0-0.7) 10^3/uL Absolute Basophils (0.0-0.2) 10^3/uL ESR (0-30) mm/hr PT (9.1-11.1) sec INR (0.9-1.1) VBG pH (7.31-7.41) VBG pCO2 (41-51) mmHg VBG pO2 mmHg VBG HCO3 (23-28) mmol/L VBG Total CO2 (24-29) mmol/L VBG O2 Saturation % VBG Base Excess (-2-3) mmol/L VBG Lactate (0.6-1.4) mmol/L Sodium (136-145) mmol/L Potassium (3.5-5.1) mmol/L Chloride (98-107) mmol/L Carbon Dioxide (21.0-32.0) mmol/L Anion Gap (3-11) mmol/L BUN (7-18) mg/dL Creatinine (0.55-1.02) mg/dL Est GFR (CKD-EPI 2020) (mL/min/1.73m2) Glucose (74-106) mg/dL Calcium (8.5-10.1) mg/dL Magnesium (1.8-2.4) mg/dL Total Bilirubin (0.2-1.0) mg/dL Conjugated Bilirubin (0.0-0.2) mg/dL AST (15-37) U/L ALT (14-59) U/L Alkaline Phosphatase (46-116) U/L Ammonia (11-32) umol/L Creatine Kinase (26-192) U/L Troponin I (< or =60) ng/L C-Reactive Protein 2.10 H (<or=0.5) mg/dL NT-Pro-B Natriuret Pep (<300) pg/mL Total Protein (6.4-8.2) g/dL Albumin (3.4-5.0) g/dL Lipase (16-77) U/L Procalcitonin ng/mL TSH (0.36-3.74) uIU/mL COVID-19 Source SARS-CoV-2 (PCR) (Negative) Influenza Type A (PCR) (Negative) Influenza Type B (PCR) (Negative) RSV (PCR) (Negative) 10/10/23 09:49 Blood Culture - Pending Blood 10/10/23 09:30 Blood Culture - Pending Blood Intake and Output - 24 Hour Total 10/10/23 08:30 thru 10/10/23 12:57 Intake Total 295.031 Output Total 400 Balance -104.969 Weight 52.7 kg Intake: IV 295.031 Output: Urine 400 Other: Comment pt refusing indwelling catheter at this time, purewick in place for I&O's Falls Risk Assessment History of Falls Previous History 10/10/23 12:57 Contributing Factors Impairments 10/10/23 12:57 Ambulatory Aids Uses ambulatory device + 10/10/23 12:57 Tubes/Lines With any additional score 10/10/23 12:57 Gait Evaluation W/any additional score 10/10/23 12:57 Cognition No cognitive impairment 10/10/23 12:57 Fall Total Score 88 10/10/23 12:57 Level of Risk Maximum Risk 10/10/23 12:57 v v v v v v v v v Sending and/or Receiving Nurses: Please use comment section below to note any information pertinent to the patient hand-off not included above. Information / Comments:All questions answered. Report received from:Abida Baron RN
[2023-10-10] MEDS: Lactated Ringers 500 ML IV (16:56)
[2023-10-10] MEDS: Nicotine 2 MG LOZG SUC ×2 (17:35→22:48)
[2023-10-10 19:12] LABS: Bilirubin Negative (Negative); Blood Negative (Negative); Clarity Clear (Clear); Glucose Negative (Negative); Ketones Negative (Negative); Leukocyte Esterase Negative (Negative); Nitrite Negative (Negative); Urobilinogen 0.2 mg/dL (Up to 0.2)
[2023-10-10] MEDS: DOXYCYCLINE 100 MG in Normal Saline 100 ML IVPB (19:35)
[2023-10-10 20:06] LABS: MRSA PCR Negative (Negative)
[2023-10-10] MEDS: guaiFENesin 600 MG TABCR PO (20:09)
[2023-10-11] VITALS (15 sets, daily range): BP systolic 140–160; BP diastolic 87–99; PULSE 87–108; RESP 12–25; TEMP 36.9–37.4; O2SAT 93–99
[2023-10-11] MEDS: diphenhydrAMINE 25 MG CAP PO ×2 (00:15→13:43)
[2023-10-11] MEDS: Hydrocortisone SOD SUC. 100 MG VIAL IVP (02:01)
[2023-10-11] MEDS: Normal Saline Flush 10 ML SYR IVP (02:03)
[2023-10-11] MEDS: DOXYCYCLINE 100 MG in Normal Saline 100 ML IVPB (06:09)
[2023-10-11 06:33] LABS: Abs Immature Grans 0.02 10^3/uL (0.0-0.06); Absolute Basophil Count 0.01 10^3/uL (0.0-0.2); Absolute Lymphocyte Count 0.53 10^3/uL (1.2-3.4); Absolute Monocyte Count 0.18 10^3/uL (0.1-0.8); Absolute Neutrophil Count 3.93 10^3/uL (1.2-6.7); Basophils % 0.2 %; HCT 25.3 % (36.0-46.0); HGB 8.6 g/dL (11.2-15.7); Immature Grans % 0.4 %; Lymphocytes % 11.3 %; MCH 36.3 pg (27.0-33.0); MCV 107 fL (80-95); MPV 10.7 fL (8.0-11.0); Monocytes % 3.9 %; Neutrophils % 84.2 %; Platelet Count 287 10^3/uL (130-400); RBC 2.37 10^6/uL (3.93-5.22); RDW 15.6 % (11.7-14.6); RDW-SD 60.4 fL; WBC 4.67 10^3/uL (4.4-10.8)
[2023-10-11 06:53] LABS: Vancomycin, Random 7.7 ug/mL
[2023-10-11 06:55] LABS: ALT 17 U/L (14-59); AST 34 U/L (15-37); Albumin 2.3 g/dL (3.4-5.0); Alkaline Phosphatase 115 U/L (46-116); Anion Gap 11.2 mmol/L (3-11); BUN 7 mg/dL (7-18); Bilirubin, Total 0.5 mg/dL (0.2-1.0); CO2 24.8 mmol/L (21.0-32.0); CREATININE 0.6 mg/dL (0.55-1.02); Calcium 7.9 mg/dL (8.5-10.1); Chloride 101 mmol/L (98-107); Estimated GFR 101.42 (mL/min/1.73m2); Glucose 138 mg/dL (74-106); Sodium 137 mmol/L (136-145); Total Protein 5.2 g/dL (6.4-8.2)
[2023-10-11 07:01] LABS: Potassium 2.9 mmol/L (3.5-5.1)
--- NOTE | 2023-10-11 08:16 | INITIAL_ITS ---
Date of service: 10/11/23 Time of Service: 08:16 Care Management Initial Assmt Initial Assessment Reason for Hospitalization: Septic shock Functional Status/Living Situation Patient Presentation: Fannie was lying in bed brushing her hair when CM met with her. Pt easily engages in conversation for the purpose of this interview. Fannie shared that she is ready to stop drinking and smoking and excepts information on 802 Quits, Declines Referral to [employer] 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 cats Medications Medication Management: No Issues/Barriers identified Physical Functioning/Mobility Assistive Device: Walker, wheelchair, RCT Advance Directives Advance Directives: Do you have an Advance Directive: N 08/15/23 14:16 AD On File at [facility]: N 08/15/23 14:16 Date Asked 10/10/23 10/10/23 13:03 AD Date Reviewed COLST On File at [facility] Yes 08/15/23 14:16 COLST Date Scanned 01/03/21 08/15/23 14:16 Code Status Resuscitation Status Full Code Portal Pt does not currently have a portal and education provided: Yes Insurance Coverage/Financial Issues Insurance: BC/BS Federal ACO Member: No Care Team Visit Care Team Role Provider Type MARIANO HOPPER NP Primary Care Provider NON-[facility] STAFF PHYSICIAN Archana Huerta MD Other Providers NON-[facility] STAFF PHYSICIAN AMIE Lara Other Providers PHYSICIANS ASSISTANT Benji Valenzuela MD Other Providers CONSULTING PHYSICIAN Suhki Hammer, DO Other Providers CONSULTING PHYSICIAN Arcenio Gamino MD Other Providers [facility] STAFF PHYSICIAN Dino Cedillo Other Providers CONSULTING PHYSICIAN Delio Ty MD Other Providers CONSULTING PHYSICIAN Jessenia Damon, DO Other Providers OSTEOPATHIC DOCTOR Mandi Lombardi, DO Other Providers CONSULTING PHYSICIAN Carson Alves MD Other Providers CONSULTING PHYSICIAN Bar Goldstein, DO Other Providers CONSULTING PHYSICIAN Brianna Silveira Other Providers NON-[facility] STAFF PHYSICIAN Dionicio Mcpherson MD Other Providers [facility] STAFF PHYSICIAN Julisa Burrell, DO Other Providers OSTEOPATHIC DOCTOR Marin Pan, DO Other Providers OSTEOPATHIC DOCTOR Jennifer Freeman MD Other Providers [facility] STAFF PHYSICIAN AMIE Orellana Emergency Provider PHYSICIANS FOREST ECONOMIST Nikunj Downey Admit Provider [facility] STAFF PHYSICIAN Attending Provider Discharge Potential Discharge Needs: Consult Consult Services Needed: Other (Surgical) and PCP F/U Appt Anticipated Barriers to Discharge: None Identified Patient/Family Education Needs: Review discharge instructions, discuss Ask Me Three Transportation: RCT Plan: Anticipate Bonifacio will be discharged home with a resumption of home health services for RN and PT. She will follow up with her PCP and plan of care and transport via RCT coordinated by CM. CM will follow and continue to assess for discharge needs. PFSH All Active Problems (Updated 10/10/23 @ 16:08 by Nikunj Downey) Pneumonia (Acute) Septic shock (Acute) CHF exacerbation (Acute) Edema, peripheral (Acute) Cellulitis of left leg (Acute) Ambulatory dysfunction (Acute) Edema of both lower legs (Acute) Congestive heart failure (Chronic) COPD exacerbation (Acute) Cellulitis (Acute) Severe sepsis (Acute) Prolonged QT interval (Acute) Respiratory failure (Acute) Leg pain (Acute) Sepsis (Acute) Shock (Acute) Hypomagnesemia (Acute) Hypokalemia (Acute) Difficulty walking (Acute) PVD (peripheral vascular disease) (Chronic) Atherosclerosis of aorta (Acute) Leg swelling (Acute) Acute hypokalemia (Acute) Hypoglycemia (Acute) Alcoholic ketoacidosis (Acute) Laceration of scalp (Acute) Fall (Acute) Chronic left hip pain (Acute) Contusion of hip (Acute) Closed intertrochanteric fracture of left hip (Acute) s/p IMN fixation (05/18/23) Smoker (Acute) Closed fracture of left hip (Acute) Fall (Acute) Anxiety (Chronic) Cavitary lesion of lung (Acute) H/O ETOH abuse (Acute) Tobacco use disorder (Acute 01/28/14) Pleural effusion (Acute) Hypomagnesemia (Acute) Fluid overload (Acute) Chest pain due to GERD (Acute) Chest wall muscle strain (Acute) Hypokalemia (Acute) Emphysema lung (Acute) Nicotine dependence, cigarettes, uncomplicated (Acute) Atherosclerosis (Acute) Gastric wall thickening (Acute) Stenosis of right internal carotid artery (Acute) Mass of upper lobe of right lung (Acute) Alcohol abuse (Chronic) Dehydration (Acute) Diarrhea (Acute) Hypomagnesemia (Chronic) B12 deficiency (Acute) Ascites (Acute) Chronic liver disease (Chronic) Weight loss, non-intentional (Acute) Macrocytic anemia (Acute) Early satiety (Acute) Folate deficiency (Acute) Hypomagnesemia (Acute) Hypokalemia (Acute) Leg pain (Acute) Cellulitis (Acute) Bilateral leg ulcer (Acute) Medical History Pulmonary nodule COPD (chronic obstructive pulmonary disease) Hypomagnesemia Cachexia Hepatic fibrosis Ulcer of lower extremity Hair loss Vitamin D deficiency Chest pain Gastroesophageal reflux disease Hx pulmonary embolism COPD (chronic obstructive pulmonary disease) Chronic vomiting Malnutrition Frequent falls Bilateral leg pain Pancreatitis Diastolic dysfunction Folate deficiency anemia Ascites Bilateral lower extremity edema Unintentional weight loss Alcohol abuse Tobacco dependence syndrome Tobacco abuse Surgical History punch biopsy, skin of ankle, right lateral (11/24/16) negative for malignancy, sparse inflammation and reactive blood vessels foot surgery (~2000) Ligation of fallopian tube (~1999) ENT/Nasal surgery (~2007) Family History Father Lung disease Cancer Lung Social History Smoking/Tobacco Use Status: Current every day Tobacco Type: cigarettes Tobacco: How many years used: 45 Quit status: considering quitting Second Hand Exposure: Yes Smoking risk assessment performed?: Yes Alcohol Intake: current Alcohol Intake frequency: 3 or more drinks per day Alcohol type: wine and hard liquor Counseling given: Yes Counseling provided: provider counseling Drug use: Never Substance use type: marijuana Housing: apartment Current gender identity: female Do you feel safe at home: Yes Do you feel safe in your relationship?: Yes Additional Social history: Lives alone in studio in [facility], 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 Grew up in [facility], sisters in area. History History Para 0 Hx # Term Pregnancies Multiple births Hx # Pregnancies Ectopic pregnancies AB induced Hx Number of Living Children AB spontaneous Readmission Within the Past 30 Days Yes or No: Yes Date of First Admission Date of 1st Admission: 10/05/23 Date of this Admission Date of Admission: 10/10/23 This admission was: Through ED Office Visit Since 1st Admission Have you seen your PCP in the office since discharge?: No Had an appointment Been Scheduled?: No ED visits How many ED visits in the past 12 months: 15 Assessment for Readmission Summary of readmission circumstances, based upon interviews: Per H&P: 63 yo F with active daily alcohol use, frequent admissions with hypotension and HFpEF who presented today with 2 days of increasing cough. skin itching, and post-tussive emesis. She states she started coughing the day before the admission. She did vomit twice after coughing fits. Cough is not productive, no blood. No blood or coffee grounds in vomit. Associated with this she has had diffuse itching with welts on her back and legs. She denies fever but she feels cold. She has not had chest pain or shortness of breath. She has not had rhinorrhea, sinus congestion, or sore throat. No diarrhea. She did drink 2-3 gatorade bottles this morning. Her sister checked on her the morning of admission and brought her in to the ED. Her last alcohol was the day prior to admission, 4-5 martinis. She has never been to rehabilitation or taken medication for alcohol use disorder but she thinks it is time now to stop drinking. SDOH(Care Management) Screening Will the Patient Participate in the Screening?: Yes Do you worry about having a steady place to live?: no In the past 12 months, have you had to go without electric, gas, oil or water in your home?: no Have you or anyone in your house had to go without enough food to eat?: no Has lack of transportation kept you from medical appointments or from doing things needed for daily living?: no Has anyone in your support network made you feel unsafe for any reason?: no Anticipated HH Services Anticipated HH Services at Discharge [facility], PT and RN. Anticipated Date of Discharge: 10/12/23. Following Provider: PCP: Mariano Hopper.
[2023-10-11 08:46] LABS: Lab Add On Test DONE
[2023-10-11 09:07] LABS: Magnesium 1.6 mg/dL (1.8-2.4)
[2023-10-11] MEDS: POTASSIUM CHLORIDE 20 MEQ/100 ML BAG 50 MEQ IVINF ×2 (09:28→13:42)
[2023-10-11] MEDS: guaiFENesin 600 MG TABCR PO (09:29)
[2023-10-11] MEDS: predniSONE 20 MG TAB 40 MG PO (09:29)
[2023-10-11 10:23] LABS: Lactate 1.8 mmol/L (0.6-1.4)
[2023-10-11] MEDS: CEFEPIME 2 GM in Normal Saline 100 ML IVPB (10:47)
--- NOTE | 2023-10-11 11:47 | PGE_ITS ---
Date of Service Date of service: 10/11/23 Time of Service: 11:50 Assessment and Plan Assessment and plan (1) Septic shock: Status: Acute Assessment and plan: Presentated with septic shock with tachycardia, elevated lactate, and hypotension despite initial fluid. Did not need pressors overnight. BP has been high for her and stable. Can transfer to floor status. Antibiotics for pneumonia as below. (2) Pneumonia: Status: Acute Assessment and plan: Given recent hospitalizations and signs of severe illness on admission she was given cefepime and vancomycin, doxycyline added to fully cover pneumonia. MRSA swab negative, given improvement vancomycin stopped. Viral screens negative, antigens for bacteria are still pending. Discussed possibly sampling the loculated effusion with surgery, but given clinical improvement I don't think risk of pneumothorax worth the benefit. Plan to repeat CXR 10/11 to reassess effusion. Was started on IV hydrocortisone in ED, has some COPD. Clinical picture not c/w adrenal insufficiency. Transition to oral prednisone. Qualifiers: Laterality: left (3) CHF exacerbation: Status: Acute Assessment and plan: As above BNaP is quite high. CXR with some possible congestion, but less clear. EKG and troponin not c/w ACS. She just had echocardiogram 09/26 with normal ejection fraction. Clinically she is still not fluid overloaded. Monitor clinically (4) Edema of both lower legs: Status: Acute Assessment and plan: This is similar or better than her baseline. No signs of active infection. (5) Alcohol abuse: Assessment and plan: For the first time she expressed interest in treatment for AUD. Herber reviewed rehabilitation placement, possible medical therapy, but now less sure, declining resource recovery engineer. Continue to try to engage. No signs overt alcohol withdrawal. (6) Nicotine dependence, cigarettes, uncomplicated: Status: Acute Assessment and plan: nicotene lozynges prn (7) Hypomagnesemia: Status: Chronic Assessment and plan: received magnesium in ED, Additional dose today along with potassium. follow (8) Chronic liver disease: Status: Chronic Assessment and plan: Associated with alcohol use disorder. She has not been diagnosed with cirrhosis. Monitor. (9) Macrocytic anemia: Status: Acute Assessment and plan: at baseline, follow (10) DVT prophylaxis: Status: Resolved Assessment and plan: enoxaparin Subjective Subjective Patient reports: feels better, tolerating a regular diet and voiding w/o difficulty; denies diarrhea, nausea, vomiting, shortness of breath or fever Interval history since last seen: Feels better. Still some cough but not getting anything up. Thinks she chokes on saliva when she isn't sitting up some times. Exam Narrative Exam Narrative: GEN: Alert and oriented, no acute distress LUNGS: Breath sounds clear bilaterally, but slightly diminished breath sounds on left. No wheezing. Normal effort, mild cough noted CV: RRR. No murmur, gallops, or rubs. c ABD: +BS, soft, NT/ND EXT: warm, no cyanosis, clubbing. trace to 1+ bilateral pitting edema to mid shins, skin on legs less pink NEURO: no tremor SKIN: Melasma of face. Dry and warm. No hives PSYCH: normal mood and affect, normal thought process, no hallucinations Objective Last Vital Signs Temp 37.4 C 10/11/23 11:17 Pulse 91 H 10/11/23 10:00 Resp 12 10/11/23 10:00 BP 155/96 H 10/11/23 10:00 Pulse Ox 98 10/11/23 10:00 Laboratory Results - last 24 hr 10/10/23 10/11/23 10/11/23 18:25 06:05 10:15 WBC 4.67 RBC 2.37 L Hgb 8.6 L D Hct 25.3 L MCV 107 H MCH 36.3 H MCHC 34.0 RDW 15.6 H Plt Count 287 MPV 10.7 Immature Gran % 0.4 Neutrophils % 84.2 Lymphocytes % 11.3 Monocytes % 3.9 Eosinophils % 0.0 Basophils % 0.2 Nucleated RBC % 0.0 Absolute Neutrophils 3.93 Absolute Lymphocytes 0.53 L Absolute Monocytes 0.18 Absolute Eosinophils 0.00 Absolute Basophils 0.01 VBG Lactate 1.8 H Sodium 137 Potassium 2.9 L* Chloride 101 Carbon Dioxide 24.8 Anion Gap 11.2 H BUN 7 Creatinine 0.6 Est GFR (CKD-EPI 2020) 101.42 Glucose 138 H Calcium 7.9 L Magnesium 1.6 L Total Bilirubin 0.5 AST 34 ALT 17 Alkaline Phosphatase 115 Total Protein 5.2 L Albumin 2.3 L Urine Color Yellow Urine Clarity Clear Urine pH 7.0 Ur Specific [place] 1.020 Urine Protein Negative Urine Ketones Negative Urine Blood Negative Urine Nitrite Negative Urine Bilirubin Negative Urine Urobilinogen 0.2 Ur Leukocyte Esterase Negative Urine Glucose Negative Random Vancomycin 7.7 MRSA (TEM-PCR) Negative Add-On Test Request DONE PAW Have you Been Recently Intoxicated or Drunk Within the Last 30 days?: Yes Have you Ever Experienced Previous Episodes of Alcohol Withdrawal?: No Have you ever Experienced Withdrawal Seizures?: No Have you ever Experienced Delirium Tremens(DT)s?: No Have you ever undergone Alcohol Rehabilitation Treatment (i.e, inpt ot outpatient treatment programs)?: No Have you ever Experienced Blackouts?: No Have you ever Combined Alcohol with other Downers within the last 90 days?: Yes Have you ever Combined Alcohol with any other Substance of Abuse during the last 90 days?: Yes Positive Blood Alcohol level on Presentation? [PCS.BAL]: No Evidence of Increased Autonomic Activity (i.e. HR>120, tremor, sweating, agitation, nausea)?: No Result: 3 Time Spent with Patient Time Spent with Patient: >50 minutes Time was spent: preparing to see the patient(eg.review tests), obtaining and/or reviewing separately otained hiistory, ordering medications,tests, procedures, referring, communicating with other health primary care md, indepentently interpreting results, counseling the patient and care coordination
[2023-10-11] MEDS: Enoxaparin 40 MG/0.4 ML SYR SC (12:34)
[2023-10-11] MEDS: MAGNESIUM SULFATE 2 GM/50 ML BAG IVINF (12:48)
[2023-10-11] MEDS: Gabapentin 300 MG CAP PO (13:44)
[2023-10-11] MEDS: Nicotine 2 MG LOZG SUC (14:30)
--- NOTE | 2023-10-11 15:24 | W.PALLCONSUL ---
Date of service: 10/11/23 Time of Service: 15:24 History of Present Illness Narrative: Fannie Gallego is a 63 YO woman from [facility], [place] who was admitted to [facility] yesterday with pneumonia, pleural effusion and possible sepsis with low blood pressure. She was scheduled to have outpatient palliative care consult next week with Alfreda Frederick NP to review advance care planning at her request. Hospitalist team requested that we consult with her to discuss goals of care and any limitations of life-sustaining treatment. Patient's additional medical problems include active alcohol use disorder, active nicotine dependence, recurrent cellulitis and chronic leg edema, diastolic heart failure (normal ejection fraction a month ago), frequent hypotension, COPD, chronic liver disease (past notes mention ascites not recently). This is her fourth [facility] admission in the last month for either respiratory difficulties or recurrent leg cellulitis and hypotension/sepsis . She often leaves the hospital within 24 hours. I met with patient today and shortly after my interview with her, she signed herself out AMA from the [facility] ICU. By staff report, she was pleasant and cooperative earlier today. She mentions to several nurses and hospitalist that she was interested in enrolling in outpatient substance abuse treatment. This afternoon she is more reluctant with conversations and is telling me now that she just wants to go home and wants to think about other options. She is reticent historian today. Some of her answers are tangential. Many of her answers are I do not want to think about that today. I want to come to your office next week and discussed that . She also mentions several times that she got Benadryl last night and she thinks it might be making her confused. Advance care planning: See assessment/plan. Wants to go home. Food is awful here. Does not want to eat. Pain: Legs have a constant pain. Constant jolts to ankle and legs. She reports that she was on hospice 6 years ago. They gave me 6 months to live. Her whole body had shut down and she had sores on her legs. I was totally vitamin depleted. The COLST on file is from that period. She was started on gabapentin at that time and continues on it for leg nerve pain. 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 Does not watch TV. Declines to share what she does like to do. Support: Do you have anyone to help you out? Not really. Has neighbors, but does not ask them for help, they never helped when she asked. Additional Services: Home Health has been coming after each admission. (WIll get PT and nursing for a few visits after each admission). She finds the PT helpful. Impression of currents health status: Thumbs Down, I don't want to talk about it. What bothers you the most: I am sick of being in the hospital. What worries you the most: Legs and feet. Goals: That I in my sleep. Declines to share any other goals with me. THey can't get me better. Current information preferences: Function: Ambulation: Using WC at home for the past few months because of fluid. Has walker if she needs to get around. Prior to that walking independently. ADLs: Independent. iADLs: Independent (No MOW), does own finances. Hearing: Good Vision: Good Cognition: SHe thinks her memory is good. Falls: Denies falls in last few months. Driving: Stopped years ago. Uses [employer] for shopping and to get around. Palliative Performance Scale % Ambulation Activity and Evidence of Disease Self Care Intake Level of Consciousness 100 Full Normal activity, no evidence of disease Full Normal Full 90 Full Normal activity, some evidence of disease Full Normal Full 80 Full Normal activity with effort, some evidence of disease Full Normal or reduced Full 70 Reduced Unable to do normal work, some evidence of disease Full Normal or reduced Full 60 Reduced Unable to do hobby or some housework, significant disease Occasional assist necessary Normal or reduced Full or confusion 50 Mainly sit/lie Unable to do any work, extensive disease Considerable assistance required Normal or reduced Full or confusion 40 Mainly in bed Unable to do any work, extensive disease Mainly assistance Normal or reduced Full, drowsy, or confusion 30 Totally bed bound Unable to do any work, extensive disease Total care Reduced Full, drowsy, or confusion 20 Totally bed bound Unable to do any work, extensive disease Total care Minimal sips Full, drowsy, or confusion 10 Totally bed bound Unable to do any work, extensive disease Total care Mouth care only Drowsy or coma 0 - - - - Patient Score: This is aghast based on scant history today: 60 Spiritual history: Spiritual on her own. Prays for others, does not ask him to help her (he has his plan for me). Palliative review of systems: Pain: See HPI Dyspnea: Not queried GI symptoms: Appetite: Eats her own food but hates hospital food Depression: Not queried Anxiety: None Emotional Distress: Spiritual/Existential Distress: Labs: Cr: 0.6 Liver panel: NL Albumin: 2.3 CBC: Hgb 8.6 INR 1.2 Advanced Care Planning: Advanced Directive: Health Care Agent: Sister Annie Champion, [place], [place] COLST: 2017 COLST on file, this says Limitations: Assessment and Plan Assessment and plan (1) Pneumonia: Status: Acute Assessment and plan: Patient is a 63-year-old woman with ongoing active alcohol use (declines to quantitate today) who is having frequent ED visits and inpatient admissions for leg cellulitis and respiratory issues (CHF, pneumonia). She often signs herself out after 24 to 36 hours in the hospital. Seems to be somewhat unreliable historian. Unfortunately due to her very brief admissions, not well-known to staff available in the hospital today to help me with history. I declined to call her sister, health surrogate today without her permission to get additional history but will consider doing so in the future. Patient is either evasive or perhaps slightly confused historian today. Based on her signing out AMA shortly after my visit, I think her biggest concern was leaving the hospital. Advance care planning: Patient reports that she had a form limiting life-sustaining treatment from 6 years ago when she was on hospice and only given 6 months to live. This would seem to correlate well with the 2017 COLST we have on file which was completed by staff at [facility] and rehab. COLST at that time DNR/DNI, comfort measures only. Since then patient has returned to living independently in her apartment. Patient had called our office because she heard there was this form and she Think she wants to change it. Today she repeatedly tells me that she cannot discuss COLST status. But I need to and want to come to your office next week...but cannot do it right now...they gave me benedryl and I just can't think. Cannot give me any hint of what she would like to do. SHe is clear that she is happy to be treated in the hospital and even in ICU and not upset that she got pressors recently. I explained to her that there appears to be a disconnect between what is written on the 2017 document (Over 5 years old) and the treatment she requests when she comes to the ED. She admits that she really does need to revise that form, but again refuses to discuss even now on CPR/intubation types subjects. I told her that as it currently stands, she is full code and if her heart stop we would do CPR. She says I do not know... You should do what ever is written down.... But she will not tell me what she thinks is written down. She is evasive about goals and hopes. Her only answers I hope I in my sleep . When I ask her if she is thinking of hurting herself she says no . She price snot seem obviously encephalopathic, but declines to participate in orientation testing. Please, let's do this in your office next week. Based on patient's ambivalence and the hx of this 2017 COLST (pt was told she only had 6 months to live), I agree with making patient's CODE STATUS full code. It sounds like she is in a different place than she was in 2017. She is repeatedly coming back to the hospital asking for treatment and agreeing to ICU admission, IV antibiotics, imaging and blood draws. When I asked her if she would come back to the hospital again if she was sick again, she says she would. She does have appt with [facility] NP [facility] at 10:15. Of course, she did asked to be treated aggressively and then left the hospital after my visit with her AGAINST MEDICAL ADVICE. Plan/recommendations: -For now, agree with full CODE STATUS. -At her request, she is given a copy of the 3 page 2017 COLST. Hopefully patient will come to her appointment in our office with Alfreda Frederick NP next week and Be willing to discuss this with our team. Explained that this is not something she feels out but it is in order. She is not interested in advanced directive. -If patient is readmitted, please reconsult palliative care. At that time, I would try to involve Sister Annie (healthcare surrogate) and discussion. -Patient will also be discussed at Interdisciplinary Palliative Care Meeting later this week (with PCP chronic home care and home health aides teacher, home health team). Qualifiers: Laterality: left (2) Chronic liver disease: Status: Chronic (3) Malnutrition: (4) COPD (chronic obstructive pulmonary disease): (5) Pleural effusion: Status: Acute PFSH All Active Problems (Updated 10/11/23 @ 16:29 by Pily Hazel MD) Advanced care planning/counseling discussion (Acute) Palliative care patient (Acute) Tobacco dependence syndrome (Acute) Pneumonia (Acute) Septic shock (Acute) CHF exacerbation (Acute) Edema, peripheral (Acute) Cellulitis of left leg (Acute) Ambulatory dysfunction (Acute) Edema of both lower legs (Acute) Congestive heart failure (Chronic) COPD exacerbation (Acute) Cellulitis (Acute) Severe sepsis (Acute) Prolonged QT interval (Acute) Respiratory failure (Acute) Leg pain (Acute) Sepsis (Acute) Shock (Acute) Hypomagnesemia (Acute) Hypokalemia (Acute) Difficulty walking (Acute) PVD (peripheral vascular disease) (Chronic) Atherosclerosis of aorta (Acute) Leg swelling (Acute) Acute hypokalemia (Acute) Hypoglycemia (Acute) Alcoholic ketoacidosis (Acute) Laceration of scalp (Acute) Fall (Acute) Chronic left hip pain (Acute) Contusion of hip (Acute) Closed intertrochanteric fracture of left hip (Acute) s/p IMN fixation (05/18/23) Smoker (Acute) Closed fracture of left hip (Acute) Fall (Acute) Anxiety (Chronic) Cavitary lesion of lung (Acute) H/O ETOH abuse (Acute) Tobacco use disorder (Acute 01/28/14) Pleural effusion (Acute) Hypomagnesemia (Acute) Fluid overload (Acute) Chest pain due to GERD (Acute) Chest wall muscle strain (Acute) Hypokalemia (Acute) Emphysema lung (Acute) Nicotine dependence, cigarettes, uncomplicated (Acute) Atherosclerosis (Acute) Gastric wall thickening (Acute) Stenosis of right internal carotid artery (Acute) Mass of upper lobe of right lung (Acute) Alcohol abuse (Chronic) Dehydration (Acute) Diarrhea (Acute) Hypomagnesemia (Chronic) B12 deficiency (Acute) Ascites (Acute) Chronic liver disease (Chronic) Weight loss, non-intentional (Acute) Macrocytic anemia (Acute) Early satiety (Acute) Folate deficiency (Acute) Hypomagnesemia (Acute) Hypokalemia (Acute) Leg pain (Acute) Cellulitis (Acute) Bilateral leg ulcer (Acute) Medical History Pulmonary nodule COPD (chronic obstructive pulmonary disease) Hypomagnesemia Cachexia Hepatic fibrosis Ulcer of lower extremity Hair loss Vitamin D deficiency Chest pain Gastroesophageal reflux disease Hx pulmonary embolism COPD (chronic obstructive pulmonary disease) Chronic vomiting Malnutrition Frequent falls Bilateral leg pain Pancreatitis Diastolic dysfunction Folate deficiency anemia Ascites Bilateral lower extremity edema Unintentional weight loss Alcohol abuse Tobacco dependence syndrome Tobacco abuse Surgical History punch biopsy, skin of ankle, right lateral (11/24/16) negative for malignancy, sparse inflammation and reactive blood vessels foot surgery (~2000) Ligation of fallopian tube (~1999) ENT/Nasal surgery (~2007) Family History Father Lung disease Cancer Lung Social History Smoking/Tobacco Use Status: Current every day Tobacco Type: cigarettes Tobacco: How many years used: 45 Quit status: considering quitting Second Hand Exposure: Yes Smoking risk assessment performed?: Yes Alcohol Intake: current Alcohol Intake frequency: 3 or more drinks per day Alcohol type: wine and hard liquor Counseling given: Yes Counseling provided: provider counseling Drug use: Never Substance use type: marijuana Housing: apartment Current gender identity: female Do you feel safe at home: Yes Do you feel safe in your relationship?: Yes Additional Social history: Lives alone in studio in [facility], 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 Grew up in [facility], sisters in area. History History Para 0 Hx # Term Pregnancies Multiple births Hx # Pregnancies Ectopic pregnancies AB induced Hx Number of Living Children AB spontaneous Exam Narrative Exam Narrative: Thin pleasant woman appearing older than stated age. Not jaundiced. No respiratory distress. She is talkative and speaks in complete sentences. Her make-up is somewhat miss applied. However her hair is well combed. Laying in bed with her legs elevated. She has trace edema of both lower legs with wrinkled skin suggesting resolution of leg edema. Formal orientation is not queried. Patient declines to answer multiple questions today. Results Last Vital Signs Temp 37.4 C 10/11/23 11:17 Pulse 91 H 10/11/23 10:00 Resp 21 10/11/23 14:00 BP 155/96 H 10/11/23 10:00 Pulse Ox 97 10/11/23 14:00 Labs 10/11/23 06:05 10/11/23 06:05 Labs: Laboratory Results - last 24 hr 10/10/23 10/11/23 10/11/23 18:25 06:05 10:15 WBC 4.67 RBC 2.37 L Hgb 8.6 L D Hct 25.3 L MCV 107 H MCH 36.3 H MCHC 34.0 RDW 15.6 H Plt Count 287 MPV 10.7 Immature Gran % 0.4 Neutrophils % 84.2 Lymphocytes % 11.3 Monocytes % 3.9 Eosinophils % 0.0 Basophils % 0.2 Nucleated RBC % 0.0 Absolute Neutrophils 3.93 Absolute Lymphocytes 0.53 L Absolute Monocytes 0.18 Absolute Eosinophils 0.00 Absolute Basophils 0.01 VBG Lactate 1.8 H Sodium 137 Potassium 2.9 L* Chloride 101 Carbon Dioxide 24.8 Anion Gap 11.2 H BUN 7 Creatinine 0.6 Est GFR (CKD-EPI 2020) 101.42 Glucose 138 H Calcium 7.9 L Magnesium 1.6 L Total Bilirubin 0.5 AST 34 ALT 17 Alkaline Phosphatase 115 Total Protein 5.2 L Albumin 2.3 L Urine Color Yellow Urine Clarity Clear Urine pH 7.0 Ur Specific [place] 1.020 Urine Protein Negative Urine Ketones Negative Urine Blood Negative Urine Nitrite Negative Urine Bilirubin Negative Urine Urobilinogen 0.2 Ur Leukocyte Esterase Negative Urine Glucose Negative Random Vancomycin 7.7 MRSA (TEM-PCR) Negative Add-On Test Request DONE
[2023-10-11] MEDS: Tiotropium/Olodaterol 10 PUFF INHALER 2 PUFF IH (17:24)
--- NOTE | 2023-10-11 17:27 | SCONE_ITS ---
Date of service: 10/11/23 Time of Service: 17:27 Assessment and Plan Assessment and plan (1) Pleural effusion: Status: Acute Assessment and plan: (a) Patient may be working on developing a pneumonia and I would suspect that the effusion is likely reactive and TRANSUDATIVE. (b) If patient does not sign-out AMA, would recommend treating the pneumonia and provide pulmonary toilet. (c) She is right, in that a potential risk of thoracentesis could be pneumothorax, for which she would then require insertion of a thoracostomy tube. (d) Support patient's medical needs and follow serial chest x-rays and clinical exam. She is presently without SOB or major symptoms. (e) Remain available is needed; call. Sukhi Hammer D.O. History of Present Illness History of Present Illness Chief Complaint: Left lower lobe infiltrate w/ plural effusion, possibly loculated. Narrative: This 63y/o female with history of alcholism presents to hospital with septic shock, tachycardia, exacerabation of CHF, and pneumonia. New (compared to about 2 weeks ago) left lower lobe infiltrate and plural effusion, possibly loculated. General Surgery service is asked to evaluate and consider thoracentesis. Upon my arrival to bedside, patient was having a conversation with her nurse regarding signing out Against Medical Advice (AMA). I introduced myself. And in the course of a brief encounter, the patient stated that the procedure could collapse her lung and that she wanted no part of that. She did not appear tachypneic or dyspneic. I was permitted to auscultate her chest, anteriorly. Review of Systems Narrative: Alcholism CHF See medical record that is quite complete regarding past medical history and includes a long list of medical problems. Constitutional Comments: Almost cachetic in appearance. Eyes Comments: Non-icteric. EOMI. PFSH All Active Problems (Updated 10/11/23 @ 16:29 by Pily Hazel MD) Advanced care planning/counseling discussion (Acute) Palliative care patient (Acute) Tobacco dependence syndrome (Acute) Pneumonia (Acute) Septic shock (Acute) CHF exacerbation (Acute) Edema, peripheral (Acute) Cellulitis of left leg (Acute) Ambulatory dysfunction (Acute) Edema of both lower legs (Acute) Congestive heart failure (Chronic) COPD exacerbation (Acute) Cellulitis (Acute) Severe sepsis (Acute) Prolonged QT interval (Acute) Respiratory failure (Acute) Leg pain (Acute) Sepsis (Acute) Shock (Acute) Hypomagnesemia (Acute) Hypokalemia (Acute) Difficulty walking (Acute) PVD (peripheral vascular disease) (Chronic) Atherosclerosis of aorta (Acute) Leg swelling (Acute) Acute hypokalemia (Acute) Hypoglycemia (Acute) Alcoholic ketoacidosis (Acute) Laceration of scalp (Acute) Fall (Acute) Chronic left hip pain (Acute) Contusion of hip (Acute) Closed intertrochanteric fracture of left hip (Acute) s/p IMN fixation (05/18/23) Smoker (Acute) Closed fracture of left hip (Acute) Fall (Acute) Anxiety (Chronic) Cavitary lesion of lung (Acute) H/O ETOH abuse (Acute) Tobacco use disorder (Acute 01/28/14) Pleural effusion (Acute) Hypomagnesemia (Acute) Fluid overload (Acute) Chest pain due to GERD (Acute) Chest wall muscle strain (Acute) Hypokalemia (Acute) Emphysema lung (Acute) Nicotine dependence, cigarettes, uncomplicated (Acute) Atherosclerosis (Acute) Gastric wall thickening (Acute) Stenosis of right internal carotid artery (Acute) Mass of upper lobe of right lung (Acute) Alcohol abuse (Chronic) Dehydration (Acute) Diarrhea (Acute) Hypomagnesemia (Chronic) B12 deficiency (Acute) Ascites (Acute) Chronic liver disease (Chronic) Weight loss, non-intentional (Acute) Macrocytic anemia (Acute) Early satiety (Acute) Folate deficiency (Acute) Hypomagnesemia (Acute) Hypokalemia (Acute) Leg pain (Acute) Cellulitis (Acute) Bilateral leg ulcer (Acute) Medical History Pulmonary nodule COPD (chronic obstructive pulmonary disease) Hypomagnesemia Cachexia Hepatic fibrosis Ulcer of lower extremity Hair loss Vitamin D deficiency Chest pain Gastroesophageal reflux disease Hx pulmonary embolism COPD (chronic obstructive pulmonary disease) Chronic vomiting Malnutrition Frequent falls Bilateral leg pain Pancreatitis Diastolic dysfunction Folate deficiency anemia Ascites Bilateral lower extremity edema Unintentional weight loss Alcohol abuse Tobacco dependence syndrome Tobacco abuse Surgical History punch biopsy, skin of ankle, right lateral (11/24/16) negative for malignancy, sparse inflammation and reactive blood vessels foot surgery (~2000) Ligation of fallopian tube (~1999) ENT/Nasal surgery (~2007) Family History Father Lung disease Cancer Lung Social History Smoking/Tobacco Use Status: Current every day Tobacco Type: cigarettes Tobacco: How many years used: 45 Quit status: considering quitting Second Hand Exposure: Yes Smoking risk assessment performed?: Yes Alcohol Intake: current Alcohol Intake frequency: 3 or more drinks per day Alcohol type: wine and hard liquor Counseling given: Yes Counseling provided: provider counseling Drug use: Never Substance use type: marijuana Housing: apartment Current gender identity: female Do you feel safe at home: Yes Do you feel safe in your relationship?: Yes Additional Social history: Lives alone in studio in [facility], 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 Grew [place] in [place] [email or web address] sisters in area. History History 2 Para 0 Hx # Term Pregnancies Multiple births Hx # Pregnancies Ectopic pregnancies AB induced Hx Number of Living Children AB spontaneous Exam Narrative Exam Narrative: Cachetic in appearance. Eyes Other: EOMI, Non-icteric Neck Other: Supple Resp Other: Chest is clear to auscultation in the upper anterior brady. There are some crackles at the left lower lateral chest wall where the effusion is seen on chest x-ray. Results Last Vital Signs Temp 99.3 F 10/11/23 11:17 Pulse 91 H 10/11/23 10:00 Resp 21 10/11/23 14:00 BP 155/96 H 10/11/23 10:00 Pulse Ox 97 10/11/23 14:00 Labs 10/11/23 06:05 10/11/23 06:05 Labs: Laboratory Results - last 24 hr 10/10/23 10/11/23 10/11/23 18:25 06:05 10:15 WBC 4.67 RBC 2.37 L Hgb 8.6 L D Hct 25.3 L MCV 107 H MCH 36.3 H MCHC 34.0 RDW 15.6 H Plt Count 287 MPV 10.7 Immature Gran % 0.4 Neutrophils % 84.2 Lymphocytes % 11.3 Monocytes % 3.9 Eosinophils % 0.0 Basophils % 0.2 Nucleated RBC % 0.0 Absolute Neutrophils 3.93 Absolute Lymphocytes 0.53 L Absolute Monocytes 0.18 Absolute Eosinophils 0.00 Absolute Basophils 0.01 VBG Lactate 1.8 H Sodium 137 Potassium 2.9 L* Chloride 101 Carbon Dioxide 24.8 Anion Gap 11.2 H BUN 7 Creatinine 0.6 Est GFR (CKD-EPI 2020) 101.42 Glucose 138 H Calcium 7.9 L Magnesium 1.6 L Total Bilirubin 0.5 AST 34 ALT 17 Alkaline Phosphatase 115 Total Protein 5.2 L Albumin 2.3 L Urine Color Yellow Urine Clarity Clear Urine pH 7.0 Ur Specific [place] 1.020 Urine Protein Negative Urine Ketones Negative Urine Blood Negative Urine Nitrite Negative Urine Bilirubin Negative Urine Urobilinogen 0.2 Ur Leukocyte Esterase Negative Urine Glucose Negative Random Vancomycin 7.7 MRSA (TEM-PCR) Negative Add-On Test Request DONE Imaging Chest x-ray: report reviewed and image reviewed
--- NOTE | 2023-10-11 17:36 | CHAPLAIN ---
Fannie was sitting up in bed when I visited. She said she wants to go home, doesn't want to spend another night here, but no one will get her her things so she can leave. In previous visits she's talked about her sister helping her out, but when I asked if she's been in touch with her sister, she said no, I'm done with that. Fannie shared some personal history, telling me about working for the [employer] for more than 20 years, serving in 10 different town, moving to each [place] [facility] for advancement. 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 Fannie said she lives on [address]. I will continue to visit if Fannie stays.
[2023-10-11] MEDS: levoFLOXacin 500 MG, levoFLOXacin 250 MG 750 MG PO (18:10)
--- NOTE | 2023-10-11 18:19 | W.PM.DS.N ---
Date of service: 10/11/23 Time of Service: 18:19 DS: Diagnosis Discharge Diagnosis (1) Pleural effusion: Status: Acute Discharge Plan Disposition Patient Disposition: Against Medical Advice Condition: Serious Discharge Details Reason For Visit: Septic shock Admit Date/Time: 10/10/23 11:29 Admit Provider: Nikunj Downey Attending Provider: Nikunj Downey Primary Care Provider: MARIANO KEARNEY Hospital Course Hospital Course: 63 yo with active alcohol use disorder, admitted with hypotension and a new pneumonia with loculated pleural effusion. She was admitted and started on cefepime, vanco, and doxycycline. Blood pressure stabilized with fluid and she did not need pressors. Vanco was stopped after nasal PCR was negative and she improved. She had an elevated BNaP but was not fluid overloaded clinically. She was given steroid IV, then transitioned to oral. She had a welt-like rash in the ED and was itchy, this did not recur, itch resolved after some benadryl. Surgery was consulted about thoracentesis but we decided the benefit was not greater than the risk. She initially indicated she wanted to stop drinking, but then declined medication and pyridine recovery operator. She was seen by palliative care. She left AMA on hospital day 2. She was given a dose of levofloxacin before discharge and given 3 more days of this and prednisone for her lung infection. She should have a follow up chest x-ray to assess the effusion. Home Meds and New Rx's Prescriptions: New prednisone 20 mg Tablet 40 mg PO DAILY Qty: 6 0RF diphenhydramine HCl 25 mg Capsule 25 mg PO Q4H PRN PRNQty: 0 0RF nicotine (polacrilex) 2 mg Lozenge 2 mg SUC Q2H PRN PRNQty: 120 3RF levofloxacin 750 mg tablet 750 mg PO Q24H Qty: 3 0RF Rx Instructions: take every afternoon starting 10/12/23 for 3 days Continued ipratropium-albuterol 0.5 mg-3 mg(2.5 mg base)/3 mL solution for nebulization 3 ml inhalation Q4H PRN (Reason: wheezing) Qty: 540 8RF albuterol sulfate 90 mcg/actuation HFA aerosol inhaler 2 puff inhalation Q6H PRN (Reason: shortness of breath or wheezing) Qty: 8.5 12RF thiamine HCl (vitamin B1) 250 mg tablet 250 mg PO DAILY gabapentin 300 mg capsule 300 mg PO TID Stiolto Respimat 2.5-2.5 mcg/actuation mist 2 puff inhalation Q24H Qty: 4 12RF loperamide [Imodium A-D] 1 mg/7.5 mL liquid 2 mg PO Q1-4H PRNQty: 120 0RF Rx Instructions: administer after each loose stool until symptoms controlled; do not exceed 16 mg per 24 hrs multivitamin [Multiple Vitamins] Tablet 1 tab PO DAILY Qty: 30 0RF omeprazole 40 mg capsule,delayed release(DR/EC) 40 mg PO DAILY potassium chloride [Klor-Con M20] 20 mEq Tablet,Er Particles/Crystals 40 meq PO DAILY Qty: 90 0RF magnesium oxide 400 mg (241.3 mg magnesium) Tablet 400 mg PO DAILY Qty: 90 0RF Discontinued ibuprofen 600 mg tablet 600 mg PO TID PRNQty: 30 0RF Discharge Instructions Referrals: MARIANO KEARNEY INNOVATION ANALYST [Primary Care Provider] - (Please call Wilfredo Kearney for a follow up appointment needed for within the next 10 days.) Activity:: Activity as Tolerated Equipment/Supplies:: No Equipment Needed Diet:: As Tolerated Discharge Orders Discharge Orders: Discharge Order (Routine); Ordered 10/11/23 Ordered By: Nikunj Downey Other Ambulatory Orders: XR chest 2V PA & lateral (Routine) Timeframe: 1 Week Facility: [facility] - Location: DIAGNOSTIC IMAGING DEPT Ordered By: Nikunj Downey DS: Summary Time Spent with Patient providing and/or coordinating discharge services: Greater than 30 minutes Status at Discharge Functional status at discharge: uses cane/walker Overall status at discharge: patient is not back to baseline Mental Status: mental status grossly normal Speech and Movement: speech and movement normal Mood: congruent mood Affect: normal affect Quality:SDOH Health Related Social Needs: Health related social needs transpo insecurity Exam Narrative Exam Narrative: GEN: Alert and oriented, no acute distress LUNGS: Breath sounds clear bilaterally, but slightly diminished breath sounds on left. No wheezing. Normal effort, mild cough noted CV: RRR. No murmur, gallops, or rubs. ABD: +BS, soft, NT/ND EXT: warm, no cyanosis, clubbing. trace bilateral pitting edema to mid shins, skin on legs less pink NEURO: no tremor SKIN: Melasma of face. Dry and warm. No hives PSYCH: normal mood and affect, normal thought process, no hallucinations Psych Mental Status: mental status grossly normal Speech and Movement: speech and movement normal Mood: congruent mood Affect: normal affect DS: Data Vitals/I&O Vitals and I&O: Vital Signs Temperature 37.4 C 10/11/23 11:17 Temperature Source Temporal Artery Scan 10/11/23 11:17 Pulse 91 H 10/11/23 10:00 Pulse 95 H 10/11/23 14:00 Respiratory Rate 21 10/11/23 14:00 Respiratory Effort Normal 10/11/23 11:17 Respiratory Depth Normal 10/11/23 11:17 Respiratory Pattern Normal 10/11/23 11:17 Blood Pressure 155/96 H 10/11/23 10:00 Blood Pressure Mean 113 10/11/23 10:00 Blood Pressure Position Supine 10/10/23 15:31 Pulse Oximetry 97 10/11/23 14:00 Oxygen Delivery Method Room Air 10/11/23 03:28 Oxygen Flow Rate 0 10/11/23 03:28 Pain Level 8 10/10/23 15:31 Intake & Output 10/10/23 10/11/23 10/11/23 23:59 11:59 23:59 Intake Total 2138.169 / 2383.200 350 / 750 400 / 750 Output Total 400 / 400 1375 / 1375 Balance 1738.169 / 1983.200 -1025 / -625 400 / -625 Weight 52.7 kg 52.1 kg Intake: IV 2018.169 / 2263.200 100 / 400 300 / 400 Oral 120 / 120 250 / 350 100 / 350 Output: Urine 400 / 400 1375 / 1375 Other: Urine Color Yellow Light Marlene Urine Appearance Clear Clear Urine Odor Normal Strong Comment Unmeasured output d/t external catheter displacement. Diaper appeared very full Refused to get up and use the rest room. Stool Size Smear Stool Characteristics Formed Voiding Methods Diaper Bedside Commode Data Completed and Pending Labs on day of discharge: Labs from last 24 hours 10/11/23 10/11/23 10/10/23 10:15 06:05 18:25 WBC 4.67 RBC 2.37 L Hgb 8.6 L D Hct 25.3 L MCV 107 H MCH 36.3 H MCHC 34.0 RDW 15.6 H Plt Count 287 MPV 10.7 Immature Gran % 0.4 Neutrophils % 84.2 Lymphocytes % 11.3 Monocytes % 3.9 Eosinophils % 0.0 Basophils % 0.2 Nucleated RBC % 0.0 Absolute Neutrophils 3.93 Absolute Lymphocytes 0.53 L Absolute Monocytes 0.18 Absolute Eosinophils 0.00 Absolute Basophils 0.01 VBG Lactate 1.8 H Sodium 137 Potassium 2.9 L* Chloride 101 Carbon Dioxide 24.8 Anion Gap 11.2 H BUN 7 Creatinine 0.6 Est GFR (CKD-EPI 2020) 101.42 Glucose 138 H Calcium 7.9 L Magnesium 1.6 L Total Bilirubin 0.5 AST 34 ALT 17 Alkaline Phosphatase 115 Total Protein 5.2 L Albumin 2.3 L Urine Color Yellow Urine Clarity Clear Urine pH 7.0 Ur Specific [place] 1.020 Urine Protein Negative Urine Ketones Negative Urine Blood Negative Urine Nitrite Negative Urine Bilirubin Negative Urine Urobilinogen 0.2 Ur Leukocyte Esterase Negative Urine Glucose Negative Random Vancomycin 7.7 Urine Legionella Ag Pending MRSA (TEM-PCR) Negative Ur Strep pneumoniae Ag Pending Add-On Test Request DONE Preliminary micro results at discharge 10/10/23 09:49 Blood Culture - Preliminary Blood NO GROWTH 24 HOURS 10/10/23 09:30 Blood Culture - Preliminary Blood NO GROWTH 24 HOURS PFSH All Active Problems (Updated 10/11/23 @ 16:29 by Pily Hazel MD) Advanced care planning/counseling discussion (Acute) Palliative care patient (Acute) Tobacco dependence syndrome (Acute) Pneumonia (Acute) Septic shock (Acute) CHF exacerbation (Acute) Edema, peripheral (Acute) Cellulitis of left leg (Acute) Ambulatory dysfunction (Acute) Edema of both lower legs (Acute) Congestive heart failure (Chronic) COPD exacerbation (Acute) Cellulitis (Acute) Severe sepsis (Acute) Prolonged QT interval (Acute) Respiratory failure (Acute) Leg pain (Acute) Sepsis (Acute) Shock (Acute) Hypomagnesemia (Acute) Hypokalemia (Acute) Difficulty walking (Acute) PVD (peripheral vascular disease) (Chronic) Atherosclerosis of aorta (Acute) Leg swelling (Acute) Acute hypokalemia (Acute) Hypoglycemia (Acute) Alcoholic ketoacidosis (Acute) Laceration of scalp (Acute) Fall (Acute) Chronic left hip pain (Acute) Contusion of hip (Acute) Closed intertrochanteric fracture of left hip (Acute) s/p IMN fixation (05/18/23) Smoker (Acute) Closed fracture of left hip (Acute) Fall (Acute) Anxiety (Chronic) Cavitary lesion of lung (Acute) H/O ETOH abuse (Acute) Tobacco use disorder (Acute 01/28/14) Pleural effusion (Acute) Hypomagnesemia (Acute) Fluid overload (Acute) Chest pain due to GERD (Acute) Chest wall muscle strain (Acute) Hypokalemia (Acute) Emphysema lung (Acute) Nicotine dependence, cigarettes, uncomplicated (Acute) Atherosclerosis (Acute) Gastric wall thickening (Acute) Stenosis of right internal carotid artery (Acute) Mass of upper lobe of right lung (Acute) Alcohol abuse (Chronic) Dehydration (Acute) Diarrhea (Acute) Hypomagnesemia (Chronic) B12 deficiency (Acute) Ascites (Acute) Chronic liver disease (Chronic) Weight loss, non-intentional (Acute) Macrocytic anemia (Acute) Early satiety (Acute) Folate deficiency (Acute) Hypomagnesemia (Acute) Hypokalemia (Acute) Leg pain (Acute) Cellulitis (Acute) Bilateral leg ulcer (Acute) Medical History Pulmonary nodule COPD (chronic obstructive pulmonary disease) Hypomagnesemia Cachexia Hepatic fibrosis Ulcer of lower extremity Hair loss Vitamin D deficiency Chest pain Gastroesophageal reflux disease Hx pulmonary embolism COPD (chronic obstructive pulmonary disease) Chronic vomiting Malnutrition Frequent falls Bilateral leg pain Pancreatitis Diastolic dysfunction Folate deficiency anemia Ascites Bilateral lower extremity edema Unintentional weight loss Alcohol abuse Tobacco dependence syndrome Tobacco abuse Surgical History punch biopsy, skin of ankle, right lateral (11/24/16) negative for malignancy, sparse inflammation and reactive blood vessels foot surgery (~2000) Ligation of fallopian tube (~1999) ENT/Nasal surgery (~2007) Family History Father Lung disease Cancer Lung Social History Smoking/Tobacco Use Status: Current every day Tobacco Type: cigarettes Tobacco: How many years used: 45 Quit status: considering quitting Second Hand Exposure: Yes Smoking risk assessment performed?: Yes Alcohol Intake: current Alcohol Intake frequency: 3 or more drinks per day Alcohol type: wine and hard liquor Counseling given: Yes Counseling provided: provider counseling Drug use: Never Substance use type: marijuana Housing: apartment Current gender identity: female Do you feel safe at home: Yes Do you feel safe in your relationship?: Yes Additional Social history: Lives alone in studio in [facility], 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 Grew up in [facility], sisters in area. History History Para 0 Hx # Term Pregnancies Multiple births Hx # Pregnancies Ectopic pregnancies AB induced Hx Number of Living Children AB spontaneous Time Spent with Patient Time Spent with Patient: <45 minutes Time was spent: preparing to see the patient(eg.review tests), obtaining and/or reviewing separately otained hiistory, ordering medications,tests, procedures, referring, communicating with other health managed care director, indepentently interpreting results, counseling the patient and care coordination
[2023-10-11 21:54] LABS: Legionella Ag Detection Urine Negative (Negative)
[2023-10-12 21:58] LABS: Streptococcus Pneumoniae Ag, U Negative (Negative)
== END 2023-10-11 18:30 | disposition left against medical advice (07) | DRG 871 ==
LOC: ER 12:04 → ICU 12:44
PROVIDERS: Internal Medicine; Admitting Provider Family Medicine; Emergency Provider Physician Assistant; PCP Nurse Practitioner Family; Visit Provider Family Medicine
DX: A41.9 Sepsis, unspecified organism (principal); I50.33 Acute on chronic diastolic (congestive) heart failure; J18.9 Pneumonia, unspecified organism; R65.21 Severe sepsis with septic shock; E46 Unspecified protein-calorie malnutrition; Z68.1 Body mass index [BMI] 19.9 or less, adult; J44.0 Chronic obstructive pulmonary disease with (acute) lower respiratory infection; J44.1 Chronic obstructive pulmonary disease with (acute) exacerbation; F10.10 Alcohol abuse, uncomplicated; E83.42 Hypomagnesemia; D53.9 Nutritional anemia, unspecified; K70.9 Alcoholic liver disease, unspecified; F17.200 Nicotine dependence, unspecified, uncomplicated; E87.6 Hypokalemia; F41.9 Anxiety disorder, unspecified; K21.9 Gastro-esophageal reflux disease without esophagitis; I65.21 Occlusion and stenosis of right carotid artery; E53.8 Deficiency of other specified B group vitamins; R29.6 Repeated falls; Z86.711 Personal history of pulmonary embolism
CPT/HCPCS: 00123; 36415; 80048; 80053; 80076; 82550; 82805; 83690; 84145; 85652; 87040; 87449; 87637; 87641; 93005; 96365; 96366; 96367; 96375; 99291; J1650; 71045; 80202; 81003; 82140; 83605; 83735; 83880; 84443; 84484; 85025; 85610; 86140; 87899; 93010; 94667; 99223; 99238; J0692; J1720; J1940; J3360; J3372; J3411; J3475; J3480; J7512; P9047

== ENCOUNTER 2023-10-17 09:15 | Emergency (ER) | payer BC, SELFPAY ==
[2023-10-17] VITALS (29 sets, daily range): BP systolic 75–129; BP diastolic 55–106; PULSE 66–130; RESP 15–29; TEMP 36.7; O2SAT 93–98
--- NOTE | 2023-10-17 09:00 | RT.EKG_ITS ---
APPROVED REPORT Exam: Resting ECG Reason for Exam: difficulty breathing Patient Location: E HR:109 bpm ECG Measurements Heart Rate 109 AXIS CO 146 P 60 QRSd 112 QRS 8 QT 381 T -1 QTc 514 Conclusion Sinus tachycardia with irregular rate...V-rate 85-150, variation>10% Incomplete right bundle branch block...QRSd >112, terminal axis(90,270) Nonspecific ST depression, anterior leads...ST <-0.10mV, V2-V4 Prolonged QT interval...QTc >500mS
--- NOTE | 2023-10-17 09:20 | W.ED.GENAD ---
Discharge Plan Disposition Patient Disposition: Home Condition: Stable Discharge Details Clinical Impression: Shortness of breath, Hypomagnesemia, Anxiety, Hypokalemia Primary Care Provider: MARIANO KEARNEY ED Provider: Derek Dejesus Home Meds and New Rx's Prescriptions: Continued ipratropium-albuterol 0.5 mg-3 mg(2.5 mg base)/3 mL solution for nebulization 3 ml inhalation Q4H PRN (Reason: wheezing) Qty: 540 8RF albuterol sulfate 90 mcg/actuation HFA aerosol inhaler 2 puff inhalation Q6H PRN (Reason: shortness of breath or wheezing) Qty: 8.5 12RF thiamine HCl (vitamin B1) 250 mg tablet 250 mg PO DAILY gabapentin 300 mg capsule 300 mg PO TID Stiolto Respimat 2.5-2.5 mcg/actuation mist 2 puff inhalation Q24H Qty: 4 12RF loperamide [Imodium A-D] 1 mg/7.5 mL liquid 2 mg PO Q1-4H PRNQty: 120 0RF Rx Instructions: administer after each loose stool until symptoms controlled; do not exceed 16 mg per 24 hrs multivitamin [Multiple Vitamins] Tablet 1 tab PO DAILY Qty: 30 0RF omeprazole 40 mg capsule,delayed release(DR/EC) 40 mg PO DAILY potassium chloride [Klor-Con M20] 20 mEq Tablet,Er Particles/Crystals 40 meq PO DAILY Qty: 90 0RF magnesium oxide 400 mg (241.3 mg magnesium) Tablet 400 mg PO DAILY Qty: 90 0RF prednisone 20 mg Tablet 40 mg PO DAILY Qty: 6 0RF nicotine (polacrilex) 2 mg Lozenge 2 mg SUC Q2H PRN PRNQty: 120 3RF levofloxacin 750 mg tablet 750 mg PO Q24H Qty: 3 0RF Rx Instructions: take every afternoon starting 10/12/23 for 3 days Discharge Instructions Instructions: Hypokalemia, Hypomagnesemia Additional Instructions: You can double the dose of your potassium and magnesium supplements Follow-up with your primary care provider or earth science laboratory technician within 1 week If you feel more ill or have new symptoms such as high fevers return to the emergency department for reevaluation HPI General Mode of arrival: EMS. Date/Time Provider Initiated Documentation: 10/17/23 09:15. Limitations to Documentation: no limitations. Information obtained by: patient. History of Present Illness 63 year old F presents to the emergency department with the chief complaint of dyspnea and anxiety, described as moderate, Patient started experiencing this day(s) (3) and it has been constant. No relieving factors improve symptom(s), No exacerbating factors reported . Patient notes denies chest pain, fever/chills and nausea/vomiting. Patient did receive the following treatments prior to arrival, none Related Data Home Medications Medication Instructions Recorded Confirmed multivitamin (Multiple Vitamins 1 tab PO DAILY #30 tabs 08/13/20 10/17/23 tablet) albuterol sulfate 90 mcg/actuation 2 puff inhalation Q6H PRN 01/18/22 10/17/23 aerosol inhaler shortness of breath or wheezing #8.5 grams thiamine HCl (vitamin B1) 250 mg 250 mg PO DAILY 04/19/23 10/17/23 tablet tiotropium 2.5 mcg-olodaterol 2.5 2 puff inhalation Q24H #4 grams 05/04/23 10/17/23 mcg/actuation mist for inhalation (Stiolto Respimat) ipratropium 0.5 mg-albuterol 3 mg 3 ml inhalation Q4H PRN wheezing 05/10/23 10/17/23 (2.5 mg base)/3 mL nebulization #540 mL soln gabapentin 300 mg capsule 300 mg PO TID 06/06/23 10/17/23 omeprazole 40 mg capsule,delayed 40 mg PO DAILY 06/12/23 10/17/23 release loperamide 1 mg/7.5 mL oral liquid 2 mg (15 mL) PO Q1-4H PRN #120 mL 08/02/23 10/17/23 (Imodium A-D) magnesium oxide 400 mg (241.3 mg 400 mg PO DAILY #90 tabs 10/06/23 10/17/23 magnesium) tablet potassium chloride 20 mEq 40 meq (2 x 20 mEq) PO DAILY #90 10/06/23 10/17/23 tablet,extended tabs release(part/cryst) (Klor-Con M) levofloxacin 750 mg tablet 750 mg PO Q24H #3 tabs 10/11/23 10/17/23 nicotine (polacrilex) 2 mg buccal 2 mg SUC Q2H PRN PRN #120 ea 10/11/23 10/17/23 lozenge prednisone 20 mg tablet 40 mg (2 x 20 mg) PO DAILY #6 tabs 10/11/23 10/17/23 Previous Rx's Medication Instructions Recorded multivitamin (Multiple Vitamins 1 tab PO DAILY #30 tabs 08/13/20 tablet) albuterol sulfate 90 mcg/actuation 2 puff inhalation Q6H PRN 01/18/22 aerosol inhaler shortness of breath or wheezing #8.5 grams tiotropium 2.5 mcg-olodaterol 2.5 2 puff inhalation Q24H #4 grams 05/04/23 mcg/actuation mist for inhalation (Stiolto Respimat) ipratropium 0.5 mg-albuterol 3 mg 3 ml inhalation Q4H PRN wheezing 05/10/23 (2.5 mg base)/3 mL nebulization #540 mL soln loperamide 1 mg/7.5 mL oral liquid 2 mg (15 mL) PO Q1-4H PRN #120 mL 08/02/23 (Imodium A-D) magnesium oxide 400 mg (241.3 mg 400 mg PO DAILY #90 tabs 10/06/23 magnesium) tablet potassium chloride 20 mEq 40 meq (2 x 20 mEq) PO DAILY #90 10/06/23 tablet,extended tabs release(part/cryst) (Klor-Con M) levofloxacin 750 mg tablet 750 mg PO Q24H #3 tabs 10/11/23 nicotine (polacrilex) 2 mg buccal 2 mg SUC Q2H PRN PRN #120 ea 10/11/23 lozenge prednisone 20 mg tablet 40 mg (2 x 20 mg) PO DAILY #6 tabs 10/11/23 Allergies Allergy/AdvReac Type Severity Reaction Status Date / Time bacitracin Allergy Mild localized Verified 10/17/23 11:15 [From Neosporin redness ([id number])] neomycin Allergy Mild localized Verified 10/17/23 11:15 [From Neosporin redness ([id number])] polymyxin B Allergy Mild localized Verified 10/17/23 11:15 [From Neosporin redness ([id number])] General RAHEEM: 3 Review of Systems All systems reviewed & are unremarkable except as noted in HPI and below Constitutional Constitutional: Denies chills and Denies fever(s) Cardiovascular Cardiovascular: Denies chest pain and Reports dyspnea Respiratory Respiratory: Reports cough and Reports dyspnea Gastrointestinal Gastrointestinal: Denies abdominal pain, Denies nausea and Denies vomiting Musculoskeletal Musculoskeletal: Denies joint swelling Exam Const General: no acute distress Orientation: alert HENVT Head: normal to inspection Ears: external ears normal General nose exam: external nose normal Mouth: moist mucous membranes Eyes General: appearance normal, both eyes and all related structures Neck Neck: normal visual inspection Resp Effort & Inspection: normal respiratory effort and able to speak in complete sentences Auscultation: wheezes Cardio Jugular venous pressure: no JVD Rate: regular rate GI Palpation: soft and nontender Skin General skin exam: no rashes or lesions noted Neuro General: patient alert and patient oriented x3 Extrem General: normal to inspection Psych Mental Status: mental status grossly normal Medical Decision Making 63-year-old female with a history of COPD, alcohol abuse, peripheral vascular disease who recently was admitted for hypotension in setting of pneumonia and left AMA the next day. She comes in with several days of worsening shortness of breath and feeling anxious. She denies any fevers, chest pain, states her cough is at her baseline and not worse. She says she finished levofloxacin that was prescribed to her when she left AMA. She is alert and oriented on arrival does appear anxious. She is wheezing at the apices bilaterally otherwise clear lung sounds. No significant pitting edema or legs or calf tenderness. Given her history we will check a CBC, CMP, troponin, chest x-ray and also treat her symptoms with oral Ativan and DuoNeb and reassess. Has no pericardial effusion on bedside ultrasound and she had a negative PE study in August so doubt PE at this time. Patient's labs show chronically low magnesium and potassium level. Her white count is 12 that she did just finish a course of prednisone. She has a decrease in size of her pleural effusion. She is hemodynamically stable eating and drinking in no distress. Discussed results with her and she feels significantly better after Ativan and 1 DuoNeb. She is stable for discharge, given she has not had an increased cough and just came off prednisone do not feel steroids or antibiotics indicated. She will follow-up with her PCP and return precautions given Differential Diagnosis Differential Diagnosis: Anxiety, COPD, pneumonia Medical Records Medical records reviewed: Yes I reviewed the patient's medical records. Imaging Data Radiologic Study: Attestation: I personally reviewed and interpreted this imaging study as follows: Imaging: X-Ray Radiologist's impression: Patient Name: Fannie Gallego Unit #: [id number] Loc: ER Ordering Provider: Derek Dejesus M.D. Status: REG ER Primary Care Provider: MARIANO KEARNEY NP Date of Exam: 10/17/23 Sex: F Admission Date: 10/17/23 : 1960 Age: 63 Exam(s) XR PORTABLE CHEST AP EXAM: XR PORTABLE CHEST AP CLINICAL HISTORY: shortness of breath TECHNIQUE: 2D digital imaging was performed. COMPARISON: CT CT CHEST PE ABD PELVIS W from 09/13/2023 CR,XR XR PORTABLE CHEST AP from 10/04/2023 CR XR PORTABLE CHEST AP from 10/10/2023 FINDINGS: Exam is limited by under penetration, overlying monitoring leads and respiratory motion. LUNGS: Decreased size left pleural effusion. Increased densities again noted at left lung base. Slight blunting of right costophrenic angle common not significantly changed. Emphysematous and fibrotic changes. HEART: Mildly enlarged. AORTA: Normal diameter. Calcified. Subclavian and axillary artery calcifications. BONES: Degenerative changes and scoliosis. Soft tissues: Unremarkable. IMPRESSION: Decrease in size of left pleural effusion. Lab Data Lab results reviewed: Yes I reviewed the patient's lab results. ECG Data Attestation: I personally reviewed and interpreted this ECG (s) as follows: Prior ECG tracings: available for review Interpretation: sinus tachcyardia rate of 109 pr 145 no stemi Quality:SDOH Health Related Social Needs: Health related social needs transpo insecurity PFSH All Active Problems (Updated 10/17/23 @ 11:47 by Derek Dejesus MD) Hypokalemia (Acute) Anxiety (Chronic) Hypomagnesemia (Acute) Shortness of breath (Acute) Tobacco dependence syndrome (Acute) Pneumonia (Acute) Edema, peripheral (Acute) Cellulitis of left leg (Acute) Ambulatory dysfunction (Acute) Edema of both lower legs (Acute) Congestive heart failure (Chronic) COPD exacerbation (Acute) Cellulitis (Acute) Severe sepsis (Acute) Prolonged QT interval (Acute) Respiratory failure (Acute) Leg pain (Acute) Sepsis (Acute) Shock (Acute) Hypomagnesemia (Acute) Hypokalemia (Acute) Difficulty walking (Acute) PVD (peripheral vascular disease) (Chronic) Atherosclerosis of aorta (Acute) Acute hypokalemia (Acute) Hypoglycemia (Acute) Alcoholic ketoacidosis (Acute) Laceration of scalp (Acute) Fall (Acute) Chronic left hip pain (Acute) Contusion of hip (Acute) Closed intertrochanteric fracture of left hip (Acute) s/p IMN fixation (05/18/23) Smoker (Acute) Closed fracture of left hip (Acute) Fall (Acute) Anxiety (Chronic) Cavitary lesion of lung (Acute) H/O ETOH abuse (Acute) Tobacco use disorder (Acute 01/28/14) Pleural effusion (Acute) Hypomagnesemia (Acute) Fluid overload (Acute) Chest pain due to GERD (Acute) Chest wall muscle strain (Acute) Hypokalemia (Acute) Emphysema lung (Acute) Nicotine dependence, cigarettes, uncomplicated (Acute) Atherosclerosis (Acute) Gastric wall thickening (Acute) Stenosis of right internal carotid artery (Acute) Mass of upper lobe of right lung (Acute) Alcohol abuse (Chronic) Dehydration (Acute) Diarrhea (Acute) Hypomagnesemia (Chronic) B12 deficiency (Acute) Ascites (Acute) Chronic liver disease (Chronic) Weight loss, non-intentional (Acute) Macrocytic anemia (Acute) Early satiety (Acute) Folate deficiency (Acute) Hypomagnesemia (Acute) Hypokalemia (Acute) Leg pain (Acute) Cellulitis (Acute) Bilateral leg ulcer (Acute) Medical History Pulmonary nodule COPD (chronic obstructive pulmonary disease) Hypomagnesemia Cachexia Hepatic fibrosis Ulcer of lower extremity Hair loss Vitamin D deficiency Chest pain Gastroesophageal reflux disease Hx pulmonary embolism COPD (chronic obstructive pulmonary disease) Chronic vomiting Malnutrition Frequent falls Bilateral leg pain Pancreatitis Diastolic dysfunction Folate deficiency anemia Ascites Bilateral lower extremity edema Unintentional weight loss Alcohol abuse Tobacco dependence syndrome Tobacco abuse Surgical History punch biopsy, skin of ankle, right lateral (11/24/16) negative for malignancy, sparse inflammation and reactive blood vessels foot surgery (~2000) Ligation of fallopian tube (~1999) ENT/Nasal surgery (~2007) Family History Father Lung disease Cancer Lung Social History Smoking/Tobacco Use Status: Current every day Tobacco Type: cigarettes Tobacco: How many years used: 45 Quit status: considering quitting Second Hand Exposure: Yes Smoking risk assessment performed?: Yes Alcohol Intake: current Alcohol Intake frequency: 3 or more drinks per day Alcohol type: wine and hard liquor Counseling given: Yes Counseling provided: provider counseling Drug use: Never Substance use type: marijuana Housing: apartment Current gender identity: female Do you feel safe at home: Yes Do you feel safe in your relationship?: Yes Additional Social history: Lives alone in studio in [facility], 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 Grew up in [facility], sisters in area. History History Para 0 Hx # Term Pregnancies Multiple births Hx # Pregnancies Ectopic pregnancies AB induced Hx Number of Living Children AB spontaneous POCUS Exam (ED) Limited Cardiac Exam REASON FOR EXAM: Dyspnea VIEW OBTAINED: Parasternal long-axis PERTINENT FINDINGS/IMPRESSION: No pericardial effusion Exam complete
[2023-10-17] MEDS: LORazepam 0.5 MG TAB PO (09:38)
[2023-10-17] MEDS: Albuterol/Ipratropium 3 ML UPD VIAL UPD (09:38)
[2023-10-17 10:06] LABS: COVID-19 PCR Negative (Negative); Influenza A PCR Negative (Negative); Influenza B PCR Negative (Negative); RSV PCR Negative (Negative)
[2023-10-17 10:09] LABS: Source Nasopharynx
[2023-10-17 10:55] LABS: BE (Venous) 6 mmol/L (-2-3); HCO3 (Venous) 30 mmol/L (23-28); O2 Sat (Venous) 52 %; TCO2 (Venous) 28 mmol/L (24-29); pCO2 (Venous) 44 mmHg (41-51); pH (Venous) 7.44 (7.31-7.41); pO2 (Venous) 31 mmHg
--- NOTE | 2023-10-17 11:10 | DI.RAD_ITS ---
Exam(s) XR PORTABLE CHEST AP EXAM: XR PORTABLE CHEST AP CLINICAL HISTORY: shortness of breath TECHNIQUE: 2D digital imaging was performed. COMPARISON: CT CT CHEST PE ABD PELVIS W from 09/13/2023 CR,XR XR PORTABLE CHEST AP from 10/04/2023 CR XR PORTABLE CHEST AP from 10/10/2023 FINDINGS: Exam is limited by under penetration, overlying monitoring leads and respiratory motion. LUNGS: Decreased size left pleural effusion. Increased densities again noted at left lung base. Sli ght blunting of right costophrenic angle common not significantly changed. Emphysematous and fibrotic changes. HEART: Mildly enlarged. AORTA: Normal diameter. Calcified. Subclavian and axillary artery calcifications. BONES: Degenerative changes and scoliosis. Soft tissues: Unremarkable. IMPRESSION: Decrease in size of left pleural effusion. DATA REPOSITORY: RADIATION DOSE DELIVERED:
[2023-10-17 11:11] LABS: INR 1.2 (0.9-1.1); PTT Activated 23.7 sec (23.6-32.8); Prothrombin Time 11.7 sec (9.1-11.1)
[2023-10-17 11:12] LABS: Abs Immature Grans 0.13 10^3/uL (0.0-0.06); Absolute Basophil Count 0.02 10^3/uL (0.0-0.2); Absolute Eosinophil Count 0.01 10^3/uL (0.0-0.7); Absolute Lymphocyte Count 1.19 10^3/uL (1.2-3.4); Absolute Monocyte Count 0.75 10^3/uL (0.1-0.8); Basophils % 0.2 %; Eosinophils % 0.1 %; HCT 35.5 % (36.0-46.0); HGB 11.9 g/dL (11.2-15.7); Immature Grans % 1.1 %; Lymphocytes % 9.7 %; MCH 36.4 pg (27.0-33.0); MCHC 33.5 % (32.0-36.0); MCV 109 fL (80-95); MPV 10.2 fL (8.0-11.0); Monocytes % 6.1 %; Neutrophils % 82.8 %; Platelet Count 260 10^3/uL (130-400); RBC 3.27 10^6/uL (3.93-5.22); RDW 16.2 % (11.7-14.6); RDW-SD 63.7 fL; WBC 12.24 10^3/uL (4.4-10.8)
[2023-10-17 11:13] LABS: Absolute Neutrophil Count 10.13 10^3/uL (1.2-6.7)
[2023-10-17] MEDS: Nicotine 4 MG LOZG SUC (11:23)
[2023-10-17 11:26] LABS: ALT 30 U/L (14-59); AST 44 U/L (15-37); Albumin 2.3 g/dL (3.4-5.0); Alkaline Phosphatase 129 U/L (46-116); Anion Gap 9.4 mmol/L (3-11); BUN 2 mg/dL (7-18); Bilirubin, Direct 0.3 mg/dL (0.0-0.2); Bilirubin, Total 0.7 mg/dL (0.2-1.0); CO2 29.6 mmol/L (21.0-32.0); CREATININE 0.6 mg/dL (0.55-1.02); Calcium 7.2 mg/dL (8.5-10.1); Chloride 99 mmol/L (98-107); Estimated GFR 101.42 (mL/min/1.73m2); Glucose 75 mg/dL (74-106); Magnesium 0.8 mg/dL (1.8-2.4); NT-proBNP 11861 pg/mL (<300); Sodium 138 mmol/L (136-145); Total Protein 5.3 g/dL (6.4-8.2); Troponin I < 50 ng/L (< or =60)
[2023-10-17 11:33] LABS: ETHANOL BLOOD < 3.0 mg/dL (<10)
[2023-10-17 11:36] LABS: Procalcitonin < 0.1 ng/mL
[2023-10-17] MEDS: Potassium Chloride 20 MEQ TABCR 40 MEQ PO (11:56)
[2023-10-17] MEDS: Magnesium Oxide 400 MG TAB 800 MG PO (11:56)
== END 2023-10-17 12:01 | disposition home or self-care (01) ==
PROVIDERS: Emergency Provider Emergency Medicine; PCP Nurse Practitioner Family
DX: R06.02 Shortness of breath (principal); E83.42 Hypomagnesemia; E87.6 Hypokalemia; I45.19 Other right bundle-branch block; J44.9 Chronic obstructive pulmonary disease, unspecified; Z86.711 Personal history of pulmonary embolism; F41.9 Anxiety disorder, unspecified
CPT/HCPCS: 36415; 80053; 82805; 84145; 87637; 93005; 93308; 94640; 99285; 71045; 80320; 82248; 83735; 83880; 84484; 85025; 85610; 85730; 93010; 99284; J7620

== ENCOUNTER → 2023-10-18 01:08 | Outpatient (CLI) | payer BC, SELFPAY ==
--- NOTE | 2023-10-18 14:00 | DI.RAD_ITS ---
Exam(s) XR CHEST 2V PA LATERAL EXAM: XR CHEST 2V PA LATERAL CLINICAL HISTORY: follow up effusion, J90 TECHNIQUE: 2D digital imaging was performed. Two views. COMPARISON: CR XR PORTABLE CHEST AP from 10/17/2023 FINDINGS: The patient declined to remove safety pins as well as jacket. HEART: Normal size. Aorta: Not dilated. PULMONARY VASCULATURE: Normal. LUNGS: Fibrotic changes. No evidence of focal consolidation. PLEURAL SPACE: There has been continued decrease in the left pleural effusion. There is minimal blun ting at the right costophrenic angle. BONE:Unremarkable for age. Soft tissues: Unremarkable. IMPRESSION: Continued improvement in pleural effusions. DATA REPOSITORY: RADIATION DOSE DELIVERED:
== END ==
PROVIDERS: PCP Nurse Practitioner Family; Visit Provider Family Medicine
DX: J90 Pleural effusion, not elsewhere classified (principal)
CPT/HCPCS: 71046

== ENCOUNTER 2023-10-21 19:06 | Emergency (ER) | payer BC, SELFPAY ==
[2023-10-21] VITALS (23 sets, daily range): BP systolic 124–162; BP diastolic 60–80; PULSE 91–99; RESP 15; TEMP 37; O2SAT 92–100
--- NOTE | 2023-10-21 19:30 | RT.EKG_ITS ---
APPROVED REPORT Exam: Resting ECG Reason for Exam: weak, lightheaded Patient Location: E HR:96 bpm ECG Measurements Heart Rate 96 AXIS WY 149 P 83 QRSd 109 QRS 104 QT 413 T 63 QTc 523 Conclusion Sinus rhythm...normal P axis, V-rate 60- 99 Atrial premature complexes...SV complexes w/ short R-R intvls Prolonged QT interval...QTc >500mS Normal sinus rhythm at a rate of 96 with interventricular conduction delay. Prolonged QTc at 5 or 23 ms. WY within normal limits. Normal axis. Low volume. No ST segment abnormalities. T wave suzette ening in aVL. Compared to prior dated earlier this week QTc slightly more prolonged. T wave flatten ing in aVL is new.
[2023-10-21 19:48] LABS: HCT 32.3 % (36.0-46.0); HGB 10.8 g/dL (11.2-15.7); MCH 36.2 pg (27.0-33.0); MCHC 33.4 % (32.0-36.0); MCV 108 fL (80-95); MPV 9.7 fL (8.0-11.0); Platelet Count 312 10^3/uL (130-400); RBC 2.98 10^6/uL (3.93-5.22); RDW 16.8 % (11.7-14.6); WBC 9.65 10^3/uL (4.4-10.8)
[2023-10-21 20:06] LABS: ALT 24 U/L (14-59); AST 33 U/L (15-37); Albumin 2.6 g/dL (3.4-5.0); Alkaline Phosphatase 178 U/L (46-116); Anion Gap 12.1 mmol/L (3-11); BUN 5 mg/dL (7-18); Bilirubin, Total 0.83 mg/dL (0.2-1.0); CO2 23.9 mmol/L (21.0-32.0); CREATININE 0.6 mg/dL (0.55-1.02); Calcium 7.9 mg/dL (8.5-10.1); Chloride 102 mmol/L (98-107); ETHANOL BLOOD 6.2 mg/dL (<10); Estimated GFR 101.42 (mL/min/1.73m2); Glucose 68 mg/dL (74-106); Magnesium 1.5 mg/dL (1.8-2.4); Sodium 138 mmol/L (136-145); Total Protein 6.2 g/dL (6.4-8.2); Troponin I < 50 ng/L (< or =60)
--- NOTE | 2023-10-21 21:12 | ED.GENADUL_ITS ---
Discharge Plan Discharge Details Chief Complaint: [facility]Medical Primary Care Provider: MARIANO KEARNEY ED Provider: Bette Mistry Home Meds and New Rx's Prescriptions: No Action ipratropium-albuterol 0.5 mg-3 mg(2.5 mg base)/3 mL solution for nebulization 3 ml inhalation Q4H PRN (Reason: wheezing) Qty: 540 8RF albuterol sulfate 90 mcg/actuation HFA aerosol inhaler 2 puff inhalation Q6H PRN (Reason: shortness of breath or wheezing) Qty: 8.5 12RF thiamine HCl (vitamin B1) 250 mg tablet 250 mg PO DAILY gabapentin 300 mg capsule 300 mg PO TID Stiolto Respimat 2.5-2.5 mcg/actuation mist 2 puff inhalation Q24H Qty: 4 12RF loperamide [Imodium A-D] 1 mg/7.5 mL liquid 2 mg PO Q1-4H PRNQty: 120 0RF Rx Instructions: administer after each loose stool until symptoms controlled; do not exceed 16 mg per 24 hrs multivitamin [Multiple Vitamins] Tablet 1 tab PO DAILY Qty: 30 0RF omeprazole 40 mg capsule,delayed release(DR/EC) 40 mg PO DAILY potassium chloride [Klor-Con M20] 20 mEq Tablet,Er Particles/Crystals 40 meq PO DAILY Qty: 90 0RF magnesium oxide 400 mg (241.3 mg magnesium) Tablet 400 mg PO DAILY Qty: 90 0RF prednisone 20 mg Tablet 40 mg PO DAILY Qty: 6 0RF nicotine (polacrilex) 2 mg Lozenge 2 mg SUC Q2H PRN PRNQty: 120 3RF levofloxacin 750 mg tablet 750 mg PO Q24H Qty: 3 0RF Rx Instructions: take every afternoon starting 10/12/23 for 3 days HPI General Date/Time Provider Initiated Documentation: 10/21/23 19:21 . HPI Narrative: Fannie is a 63-year-old female with history of COPD, CHF, hypokalemia, hypomagnesemia, EtOH abuse who presents to the emergency department today for evaluation of not feeling well. She reports that she got bitten up last night by insects while she was outside. This afternoon at around 1500 she took 2 tablets of Benadryl because that was said to take on the package for itching. Half an hour after taking the Benadryl she started feeling generalized fatigue and weakness. She reports she has otherwise been feeling well, denies fever/chills, lightheadedness, chest pain, shortness of breath, nausea/vomiting, abdominal pain, change in bowel or bladder function, change in baseline pedal edema. She does take her COPD medications as prescribed, says that she feels like her nebulizers are working well. Related Data Home Medications Medication Instructions Recorded Confirmed multivitamin (Multiple Vitamins 1 tab PO DAILY #30 tabs 08/13/20 10/17/23 tablet) albuterol sulfate 90 mcg/actuation 2 puff inhalation Q6H PRN 01/18/22 10/17/23 aerosol inhaler shortness of breath or wheezing #8.5 grams thiamine HCl (vitamin B1) 250 mg 250 mg PO DAILY 04/19/23 10/17/23 tablet tiotropium 2.5 mcg-olodaterol 2.5 2 puff inhalation Q24H #4 grams 05/04/23 10/17/23 mcg/actuation mist for inhalation (Stiolto Respimat) ipratropium 0.5 mg-albuterol 3 mg 3 ml inhalation Q4H PRN wheezing 05/10/23 10/17/23 (2.5 mg base)/3 mL nebulization #540 mL soln gabapentin 300 mg capsule 300 mg PO TID 06/06/23 10/17/23 omeprazole 40 mg capsule,delayed 40 mg PO DAILY 06/12/23 10/17/23 release loperamide 1 mg/7.5 mL oral liquid 2 mg (15 mL) PO Q1-4H PRN #120 mL 08/02/23 10/17/23 (Imodium A-D) magnesium oxide 400 mg (241.3 mg 400 mg PO DAILY #90 tabs 10/06/23 10/17/23 magnesium) tablet potassium chloride 20 mEq 40 meq (2 x 20 mEq) PO DAILY #90 10/06/23 10/17/23 tablet,extended tabs release(part/cryst) (Klor-Con M) levofloxacin 750 mg tablet 750 mg PO Q24H #3 tabs 10/11/23 10/17/23 nicotine (polacrilex) 2 mg buccal 2 mg SUC Q2H PRN PRN #120 ea 10/11/23 10/17/23 lozenge prednisone 20 mg tablet 40 mg (2 x 20 mg) PO DAILY #6 tabs 10/11/23 10/17/23 Previous Rx's Medication Instructions Recorded multivitamin (Multiple Vitamins 1 tab PO DAILY #30 tabs 08/13/20 tablet) albuterol sulfate 90 mcg/actuation 2 puff inhalation Q6H PRN 01/18/22 aerosol inhaler shortness of breath or wheezing #8.5 grams tiotropium 2.5 mcg-olodaterol 2.5 2 puff inhalation Q24H #4 grams 05/04/23 mcg/actuation mist for inhalation (Stiolto Respimat) ipratropium 0.5 mg-albuterol 3 mg 3 ml inhalation Q4H PRN wheezing 05/10/23 (2.5 mg base)/3 mL nebulization #540 mL soln loperamide 1 mg/7.5 mL oral liquid 2 mg (15 mL) PO Q1-4H PRN #120 mL 08/02/23 (Imodium A-D) magnesium oxide 400 mg (241.3 mg 400 mg PO DAILY #90 tabs 10/06/23 magnesium) tablet potassium chloride 20 mEq 40 meq (2 x 20 mEq) PO DAILY #90 10/06/23 tablet,extended tabs release(part/cryst) (Klor-Con M) levofloxacin 750 mg tablet 750 mg PO Q24H #3 tabs 10/11/23 nicotine (polacrilex) 2 mg buccal 2 mg SUC Q2H PRN PRN #120 ea 10/11/23 lozenge prednisone 20 mg tablet 40 mg (2 x 20 mg) PO DAILY #6 tabs 10/11/23 Allergies Allergy/AdvReac Type Severity Reaction Status Date / Time bacitracin Allergy Mild localized Verified 10/17/23 11:15 [From Neosporin redness ([id number])] neomycin Allergy Mild localized Verified 10/17/23 11:15 [From Neosporin redness ([id number])] polymyxin B Allergy Mild localized Verified 10/17/23 11:15 [From Neosporin redness ([id number])] General Stated Complaint: [facility]Medical RAHEEM: 3 Review of Systems Narrative: see HPI Exam Const General: cooperative, healthy appearing, comfortable, no acute distress and well developed Nutritional Appearance: average body habitus Orientation: alert and oriented x3 Resp Effort & Inspection: normal respiratory effort and able to speak in complete sentences Auscultation: clear to auscultation bilaterally Cardio Rate: regular rate Rhythm: regular rhythm GI Inspection: normal to inspection Palpation: soft and nontender Auscultation: normal bowel sounds Neuro General: moves all extremities and no focal motor deficits Cranial Nerves: CN's II-XI intact bilaterally Speech: speech normal Motor: muscle tone normal throughout Extrem General: no pedal edema Course Vital Signs Vital signs: Vital Signs Temperature 37.0 C 10/21/23 19:03 Pulse 99 H 10/21/23 19:03 Respiratory Rate 15 10/21/23 19:03 Blood Pressure 159/75 H 10/21/23 19:03 Pulse Oximetry 96 10/21/23 19:03 Temperature 37.0 C 10/21/23 19:03 Temperature Source Tympanic 10/21/23 19:03 Pulse 99 H 10/21/23 19:03 Respiratory Rate 15 10/21/23 19:03 Blood Pressure 159/75 H 10/21/23 19:03 Blood Pressure Position Sitting 10/21/23 19:03 Pulse Oximetry 96 10/21/23 19:03 Oxygen Delivery Method Room Air 10/21/23 19:03 Oxygen Flow Rate 0 10/21/23 19:03 Lab/Test Results Lab/Test Results: Laboratory Tests Range/Units 10/21/23 19:40 WBC (4.4-10.8) 10^3/uL 9.65 RBC (3.93-5.22) 10^6/uL 2.98 L Hgb (11.2-15.7) g/dL 10.8 L Hct (36.0-46.0) % 32.3 L MCV (80-95) fL 108 H MCH (27.0-33.0) pg 36.2 H MCHC (32.0-36.0) % 33.4 RDW (11.7-14.6) % 16.8 H Plt Count (130-400) 10^3/uL 312 MPV (8.0-11.0) fL 9.7 Sodium (136-145) mmol/L 138 Potassium (3.5-5.1) mmol/L 3.0 L Chloride (98-107) mmol/L 102 Carbon Dioxide (21.0-32.0) mmol/L 23.9 Anion Gap (3-11) mmol/L 12.1 H BUN (7-18) mg/dL 5 L Creatinine (0.55-1.02) mg/dL 0.6 Est GFR (CKD-EPI 2020) (mL/min/1.73m2) 101.42 Glucose (74-106) mg/dL 68 L Calcium (8.5-10.1) mg/dL 7.9 L Magnesium (1.8-2.4) mg/dL 1.5 L Total Bilirubin (0.2-1.0) mg/dL 0.83 AST (15-37) U/L 33 ALT (14-59) U/L 24 Alkaline Phosphatase (46-116) U/L 178 H Troponin I (< or =60) ng/L < 50 Total Protein (6.4-8.2) g/dL 6.2 L Albumin (3.4-5.0) g/dL 2.6 L Ethyl Alcohol (<10) mg/dL 6.2 Medical Decision Making Fannie is a 63-year-old female with history of COPD, CHF, hypokalemia, hypomagnesemia, EtOH abuse who presents to the emergency department today for evaluation of not feeling well. She reports that she got bitten up last night by insects while she was outside. This afternoon at around 1500 she took 2 tablets of Benadryl because that was said to take on the package for itching. Half an hour after taking the Benadryl she started feeling generalized fatigue and weakness. She reports she has otherwise been feeling well, denies fever/chills, lightheadedness, chest pain, shortness of breath, nausea/vomiting, abdominal pain, change in bowel or bladder function, change in baseline pedal edema. She does take her COPD medications as prescribed, says that she feels like her nebulizers are working well. Physical exam reassuring. Fannie is alert and oriented, in no acute distress. She is Napping comfortably, easily arousable. Moving all extremities equally. Easy work of breathing, lung sounds clear bilaterally. Normal heart sounds. Abdomen is soft, nondistended, nontender to palpation. No obvious pedal edema. History and presentation consistent with medication side effect from diphehydramine use. Labs ordered to rule out hypoglycemia, acute electrolyte abnormality or cardiac etiology of sudden onset of fatigue. I independently interpreted the following tests: EKG reassuring, normal sinus rhythm with rate 96. Occasional PACs noted. QTc prolonged (523; this is noted on previous EKG 10/04/23). CBC reassuring, anemia relatively unchanged from previous. Hypokalemia unchanged from previous, 3.0 today. Mild hypoglycemia, glucose 68. Hypomagnesemia improved from previous, 1.5 today. Serial troponins negative. While in the emergency department Fannie was given apple juice, as well as potassium and magnesium supplementation. Blood glucose improved from 68 to 76. After resting and metabolizing diphenhydramine (8 hours post-ingestion), Fannie is feeling significantly better, says she feels like her usual self. Overall workup today very reassuring. Likely medication side effect from diphenhydramine use. Advised avoiding Benadryl and switching to second- generation antihistamine, as this has less drowsy effects. Reviewed red flags indicating need for return to emergency care. She will follow-up with PCP on Tuesday. Quality:SDOH Health Related Social Needs: Health related social needs transpo insecurity PFSH All Active Problems (Updated 10/17/23 @ 11:47 by Derek Dejesus MD) Hypokalemia (Acute) Anxiety (Chronic) Hypomagnesemia (Acute) Shortness of breath (Acute) Tobacco dependence syndrome (Acute) Pneumonia (Acute) Edema, peripheral (Acute) Cellulitis of left leg (Acute) Ambulatory dysfunction (Acute) Edema of both lower legs (Acute) Congestive heart failure (Chronic) COPD exacerbation (Acute) Cellulitis (Acute) Severe sepsis (Acute) Prolonged QT interval (Acute) Respiratory failure (Acute) Leg pain (Acute) Sepsis (Acute) Shock (Acute) Hypomagnesemia (Acute) Hypokalemia (Acute) Difficulty walking (Acute) PVD (peripheral vascular disease) (Chronic) Atherosclerosis of aorta (Acute) Acute hypokalemia (Acute) Hypoglycemia (Acute) Alcoholic ketoacidosis (Acute) Laceration of scalp (Acute) Fall (Acute) Chronic left hip pain (Acute) Contusion of hip (Acute) Closed intertrochanteric fracture of left hip (Acute) s/p IMN fixation (05/18/23) Smoker (Acute) Closed fracture of left hip (Acute) Fall (Acute) Anxiety (Chronic) Cavitary lesion of lung (Acute) H/O ETOH abuse (Acute) Tobacco use disorder (Acute 01/28/14) Pleural effusion (Acute) Hypomagnesemia (Acute) Fluid overload (Acute) Chest pain due to GERD (Acute) Chest wall muscle strain (Acute) Hypokalemia (Acute) Emphysema lung (Acute) Nicotine dependence, cigarettes, uncomplicated (Acute) Atherosclerosis (Acute) Gastric wall thickening (Acute) Stenosis of right internal carotid artery (Acute) Mass of upper lobe of right lung (Acute) Alcohol abuse (Chronic) Dehydration (Acute) Diarrhea (Acute) Hypomagnesemia (Chronic) B12 deficiency (Acute) Ascites (Acute) Chronic liver disease (Chronic) Weight loss, non-intentional (Acute) Macrocytic anemia (Acute) Early satiety (Acute) Folate deficiency (Acute) Hypomagnesemia (Acute) Hypokalemia (Acute) Leg pain (Acute) Cellulitis (Acute) Bilateral leg ulcer (Acute) Medical History Pulmonary nodule COPD (chronic obstructive pulmonary disease) Hypomagnesemia Cachexia Hepatic fibrosis Ulcer of lower extremity Hair loss Vitamin D deficiency Chest pain Gastroesophageal reflux disease Hx pulmonary embolism COPD (chronic obstructive pulmonary disease) Chronic vomiting Malnutrition Frequent falls Bilateral leg pain Pancreatitis Diastolic dysfunction Folate deficiency anemia Ascites Bilateral lower extremity edema Unintentional weight loss Alcohol abuse Tobacco dependence syndrome Tobacco abuse Surgical History punch biopsy, skin of ankle, right lateral (11/24/16) negative for malignancy, sparse inflammation and reactive blood vessels foot surgery (~2000) Ligation of fallopian tube (~1999) ENT/Nasal surgery (~2007) Family History Father Lung disease Cancer Lung Social History Smoking/Tobacco Use Status: Current every day Tobacco Type: cigarettes Tobacco: How many years used: 45 Quit status: considering quitting Second Hand Exposure: Yes Smoking risk assessment performed?: Yes Alcohol Intake: current Alcohol Intake frequency: 3 or more drinks per day Alcohol type: wine and hard liquor Counseling given: Yes Counseling provided: provider counseling Drug use: Never Substance use type: marijuana Housing: apartment Current gender identity: female Do you feel safe at home: Yes Do you feel safe in your relationship?: Yes Additional Social history: Lives alone in studio in [facility], 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 Grew up in [facility], sisters in area. History History Para 0 Hx # Term Pregnancies Multiple births Hx # Pregnancies Ectopic pregnancies AB induced Hx Number of Living Children AB spontaneous
[2023-10-21] MEDS: Magnesium Oxide 400 MG TAB PO (23:03)
[2023-10-21] MEDS: Potassium Bicarbonate/Cit AC 25 MEQ TABLET.EFF PO (23:18)
[2023-10-21 23:20] LABS: Troponin I < 50 ng/L (< or =60)
== END 2023-10-22 00:26 | disposition home or self-care (01) ==
PROVIDERS: Emergency Provider Nurse Practitioner Family; PCP Nurse Practitioner Family
DX: L29.9 Pruritus, unspecified (principal); R42 Dizziness and giddiness; R53.83 Other fatigue
CPT/HCPCS: 36415; 36416; 80053; 82962; 85027; 93005; 99283; 80320; 83735; 84484; 93010

== ENCOUNTER 2023-10-24 13:14 | Emergency (ER) | payer BC, SELFPAY ==
[2023-10-24] VITALS (46 sets, daily range): BP systolic 68–150; BP diastolic 43–83; PULSE 61–126; RESP 12–26; TEMP 36.3; O2SAT 98–99
--- NOTE | 2023-10-24 13:00 | RT.EKG_ITS ---
APPROVED REPORT Exam: Resting ECG Reason for Exam: SOB Patient Location: E HR:120 bpm ECG Measurements Heart Rate 120 AXIS [place] 144 P 80 QRSd 100 QRS 0 QT 384 T 51 QTc 544 Conclusion Sinus tachycardia [address] seg depressions, new from prior, concern for posterior ID STEMI Called.
--- NOTE | 2023-10-24 13:15 | DI.RAD_ITS ---
Exam(s) XR PORTABLE CHEST AP EXAM: XR PORTABLE CHEST AP CLINICAL HISTORY: sob TECHNIQUE: 2D digital imaging was performed of the chest. One image was obtained. An AP view was ob tained. COMPARISON: CR XR PORTABLE CHEST AP from 10/17/2023 CR XR CHEST 2V PA LATERAL from 10/18/2023 FINDINGS: MEDIASTINUM: Normal. HEART: Normal. PULMONARY VASCULATURE: Normal. LUNGS: The lungs are hyperinflated with flattened diaphragms suggesting underlying COPD. Linear infi ltrate are seen in the lung bases medially which may represent atelectasis. Pneumonitis cannot be ex cluded. PLEURAL SPACE: No pleural effusion or pneumothorax. BONE:Within normal limits for the patient's age. OTHER FINDINGS:Extensive vascular calcification is present. IMPRESSION: 1. Small bilateral basilar infiltrates medially which may represent atelectasis, scarring or possible pneumonitis. Please correlate clinically. 2. Extensive vascular calcification. DATA REPOSITORY: RADIATION DOSE DELIVERED:
--- NOTE | 2023-10-24 13:15 | RT.EKG_ITS ---
APPROVED REPORT Exam: Resting ECG Reason for Exam: sob Patient Location: E HR:125 bpm ECG Measurements Heart Rate 125 AXIS [place] [id number] P [id number] QRSd 101 QRS 208 QT 352 T 55 QTc [address] depressions no stemi qtc >500
--- NOTE | 2023-10-24 13:30 | RT.EKG_ITS ---
APPROVED REPORT Exam: Resting ECG Reason for Exam: sob - posterior EKG Patient Location: E HR:121 bpm ECG Measurements Heart Rate 121 AXIS [place] [id number] P [id number] QRSd 102 QRS 139 QT 345 T 7 QTc 490 Conclusion posterior EKG no stemi
[2023-10-24] MEDS: diphenhydrAMINE 50 MG/ML VIAL 25 MG IVP (13:33)
[2023-10-24] MEDS: Aspirin 325 MG TAB PO (13:34)
[2023-10-24] MEDS: Famotidine 20 MG/2 ML VIAL IVP (14:12)
[2023-10-24] MEDS: MAGNESIUM SULFATE 2 GM/50 ML BAG IVINF (14:14)
[2023-10-24 14:20] LABS: Abs Immature Grans 0.17 10^3/uL (0.0-0.06); Absolute Basophil Count 0.08 10^3/uL (0.0-0.2); Absolute Eosinophil Count 0.03 10^3/uL (0.0-0.7); Absolute Lymphocyte Count 1.72 10^3/uL (1.2-3.4); Absolute Monocyte Count 0.82 10^3/uL (0.1-0.8); Absolute Neutrophil Count 11.09 10^3/uL (1.2-6.7); Basophils % 0.6 %; Eosinophils % 0.2 %; HCT 37.7 % (36.0-46.0); HGB 12.8 g/dL (11.2-15.7); Immature Grans % 1.2 %; Lymphocytes % 12.4 %; MCH 36.5 pg (27.0-33.0); MCV 107 fL (80-95); MPV 10.5 fL (8.0-11.0); Monocytes % 5.9 %; Neutrophils % 79.7 %; Nucleated RBC 0.2 % (0.0-0.3); Platelet Count 458 10^3/uL (130-400); RBC 3.51 10^6/uL (3.93-5.22); RDW 16.5 % (11.7-14.6); RDW-SD 64.2 fL; WBC 13.91 10^3/uL (4.4-10.8)
[2023-10-24 15:08] LABS: ALT 16 U/L (14-59); AST 27 U/L (15-37); Albumin 2.3 g/dL (3.4-5.0); Alkaline Phosphatase 158 U/L (46-116); Anion Gap 12.3 mmol/L (3-11); BUN 2 mg/dL (7-18); Bilirubin, Total 0.81 mg/dL (0.2-1.0); CO2 24.7 mmol/L (21.0-32.0); CREATININE 0.7 mg/dL (0.55-1.02); Calcium 7.7 mg/dL (8.5-10.1); Chloride 99 mmol/L (98-107); Estimated GFR 97.72 (mL/min/1.73m2); Glucose 94 mg/dL (74-106); Magnesium 2.7 mg/dL (1.8-2.4); NT-proBNP 4413 pg/mL (<300); Sodium 136 mmol/L (136-145); Total Protein 5.7 g/dL (6.4-8.2); Troponin I < 50 ng/L (< or =60)
[2023-10-24 15:10] LABS: Potassium 2.8 mmol/L (3.5-5.1)
[2023-10-24] MEDS: POTASSIUM CHLORIDE 10 MEQ/100 ML BAG 100 MEQ IVINF ×2 (15:21→16:27)
[2023-10-24] MEDS: Nicotine 2 MG LOZG SUC (15:30)
--- NOTE | 2023-10-24 15:46 | ED.GENADUL_ITS ---
Discharge Plan Discharge Details Chief Complaint: RespSymp Clinical Impression: Shortness of breath, Urticaria, Acute electrocardiogram changes Primary Care Provider: MAIRANO KEARNEY ED Provider: Philly Cisneros Home Meds and New Rx's Prescriptions: No Action ipratropium-albuterol 0.5 mg-3 mg(2.5 mg base)/3 mL solution for nebulization 3 ml inhalation Q4H PRN (Reason: wheezing) Qty: 540 8RF albuterol sulfate 90 mcg/actuation HFA aerosol inhaler 2 puff inhalation Q6H PRN (Reason: shortness of breath or wheezing) Qty: 8.5 12RF thiamine HCl (vitamin B1) 250 mg tablet 250 mg PO DAILY gabapentin 300 mg capsule 300 mg PO TID Stiolto Respimat 2.5-2.5 mcg/actuation mist 2 puff inhalation Q24H Qty: 4 12RF loperamide [Imodium A-D] 1 mg/7.5 mL liquid 2 mg PO Q1-4H PRNQty: 120 0RF Rx Instructions: administer after each loose stool until symptoms controlled; do not exceed 16 mg per 24 hrs multivitamin [Multiple Vitamins] Tablet 1 tab PO DAILY Qty: 30 0RF omeprazole 40 mg capsule,delayed release(DR/EC) 40 mg PO DAILY potassium chloride [Klor-Con M20] 20 mEq Tablet,Er Particles/Crystals 40 meq PO DAILY Qty: 90 0RF magnesium oxide 400 mg (241.3 mg magnesium) Tablet 400 mg PO DAILY Qty: 90 0RF prednisone 20 mg Tablet 40 mg PO DAILY Qty: 6 0RF nicotine (polacrilex) 2 mg Lozenge 2 mg SUC Q2H PRN PRNQty: 120 3RF HPI General Date/Time Provider Initiated Documentation: 10/24/23 13:26 . Limitations to Documentation: no limitations . Information obtained by: patient . HPI Narrative: 63-year-old female with past medical history of alcohol abuse, CHF, COPD, tobacco dependence presents for evaluation of shortness of breath. She reports that a few days ago she got a bunch of insect bites and has been very itchy since then. She states that she feels like she cannot breathe. She denies any chest pain. EMS reports that when they picked her up, there is no signs of respiratory distress or hypoxia, despite the patient stating that she could not breathe. Related Data Home Medications Medication Instructions Recorded Confirmed multivitamin (Multiple Vitamins 1 tab PO DAILY #30 tabs 08/13/20 10/24/23 tablet) albuterol sulfate 90 mcg/actuation 2 puff inhalation Q6H PRN 01/18/22 10/24/23 aerosol inhaler shortness of breath or wheezing #8.5 grams thiamine HCl (vitamin B1) 250 mg 250 mg PO DAILY 04/19/23 10/24/23 tablet tiotropium 2.5 mcg-olodaterol 2.5 2 puff inhalation Q24H #4 grams 05/04/23 10/24/23 mcg/actuation mist for inhalation (Stiolto Respimat) ipratropium 0.5 mg-albuterol 3 mg 3 ml inhalation Q4H PRN wheezing 05/10/23 10/24/23 (2.5 mg base)/3 mL nebulization #540 mL soln gabapentin 300 mg capsule 300 mg PO TID 06/06/23 10/24/23 omeprazole 40 mg capsule,delayed 40 mg PO DAILY 06/12/23 10/24/23 release loperamide 1 mg/7.5 mL oral liquid 2 mg (15 mL) PO Q1-4H PRN #120 mL 08/02/23 10/24/23 (Imodium A-D) magnesium oxide 400 mg (241.3 mg 400 mg PO DAILY #90 tabs 10/06/23 10/24/23 magnesium) tablet potassium chloride 20 mEq 40 meq (2 x 20 mEq) PO DAILY #90 10/06/23 10/24/23 tablet,extended tabs release(part/cryst) (Klor-Con M) nicotine (polacrilex) 2 mg buccal 2 mg SUC Q2H PRN PRN #120 ea 10/11/23 10/24/23 lozenge prednisone 20 mg tablet 40 mg (2 x 20 mg) PO DAILY #6 tabs 10/11/23 10/24/23 Previous Rx's Medication Instructions Recorded multivitamin (Multiple Vitamins 1 tab PO DAILY #30 tabs 08/13/20 tablet) albuterol sulfate 90 mcg/actuation 2 puff inhalation Q6H PRN 01/18/22 aerosol inhaler shortness of breath or wheezing #8.5 grams tiotropium 2.5 mcg-olodaterol 2.5 2 puff inhalation Q24H #4 grams 05/04/23 mcg/actuation mist for inhalation (Stiolto Respimat) ipratropium 0.5 mg-albuterol 3 mg 3 ml inhalation Q4H PRN wheezing 05/10/23 (2.5 mg base)/3 mL nebulization #540 mL soln loperamide 1 mg/7.5 mL oral liquid 2 mg (15 mL) PO Q1-4H PRN #120 mL 08/02/23 (Imodium A-D) magnesium oxide 400 mg (241.3 mg 400 mg PO DAILY #90 tabs 10/06/23 magnesium) tablet potassium chloride 20 mEq 40 meq (2 x 20 mEq) PO DAILY #90 10/06/23 tablet,extended tabs release(part/cryst) (Klor-Con M) nicotine (polacrilex) 2 mg buccal 2 mg SUC Q2H PRN PRN #120 ea 10/11/23 lozenge prednisone 20 mg tablet 40 mg (2 x 20 mg) PO DAILY #6 tabs 10/11/23 Allergies Allergy/AdvReac Type Severity Reaction Status Date / Time bacitracin Allergy Mild localized Verified 10/24/23 13:18 [From Neosporin redness ([id number])] neomycin Allergy Mild localized Verified 10/24/23 13:18 [From Neosporin redness ([id number])] polymyxin B Allergy Mild localized Verified 10/24/23 13:18 [From Neosporin redness ([id number])] General Stated Complaint: RespSymp RAHEEM: 3 Exam Narrative Exam Narrative: Review of Systems: All systems reviewed & are unremarkable except as noted in HPI and below Well-developed, disheveled NCAT PERRL, normal conjunctiva Tachycardia, no murmur Unlabored respiratory effort, no tachypnea, no hypoxia Nondistended abdomen Extremities w/o deformity, no cyanosis, no edema Multiple sites of urticarial lesions, prominently on extremities, no focal neurologic deficits Appropriate mood and affect Course Vital Signs Vital signs: Vital Signs Temperature 36.3 C L 10/24/23 13:13 Pulse 104 H 10/24/23 13:13 Respiratory Rate 20 10/24/23 13:13 Blood Pressure 68/45 L 10/24/23 13:13 Pulse Oximetry 99 10/24/23 13:13 Temperature 36.3 C L 10/24/23 14:13 Temperature Source Tympanic 10/24/23 14:13 Pulse 92 H 10/24/23 15:14 Pulse 96 H 10/24/23 15:20 Respiratory Rate 16 10/24/23 15:20 Respiratory Effort Short of Breath 10/24/23 14:13 Respiratory Depth Deep 10/24/23 14:13 Blood Pressure 97/67 L 10/24/23 15:14 Blood Pressure Mean 76 10/24/23 15:01 Blood Pressure Position Supine 10/24/23 13:13 Pulse Oximetry 98 10/24/23 14:19 Oxygen Delivery Method Room Air 10/24/23 14:19 Oxygen Flow Rate 0 10/24/23 14:19 Pain Level 0 10/24/23 14:13 Lab/Test Results Lab/Test Results: Laboratory Tests Range/Units 10/24/23 10/24/23 14:11 14:40 WBC (4.4-10.8) 10^3/uL 13.91 H RBC (3.93-5.22) 10^6/uL 3.51 L Hgb (11.2-15.7) g/dL 12.8 D Hct (36.0-46.0) % 37.7 MCV (80-95) fL 107 H MCH (27.0-33.0) pg 36.5 H MCHC (32.0-36.0) % 34.0 RDW (11.7-14.6) % 16.5 H Plt Count (130-400) 10^3/uL 458 H MPV (8.0-11.0) fL 10.5 Immature Gran % % 1.2 Neutrophils % % 79.7 Lymphocytes % % 12.4 Monocytes % % 5.9 Eosinophils % % 0.2 Basophils % % 0.6 Nucleated RBC % (0.0-0.3) % 0.2 Absolute Neutrophils (1.2-6.7) 10^3/uL 11.09 H Absolute Lymphocytes (1.2-3.4) 10^3/uL 1.72 Absolute Monocytes (0.1-0.8) 10^3/uL 0.82 H Absolute Eosinophils (0.0-0.7) 10^3/uL 0.03 Absolute Basophils (0.0-0.2) 10^3/uL 0.08 Sodium Cancelled 136 Potassium Cancelled 2.8 L* Chloride Cancelled 99 Carbon Dioxide Cancelled 24.7 Anion Gap Cancelled 12.3 H BUN Cancelled 2 L Creatinine Cancelled 0.7 Est GFR (CKD-EPI 2020) Cancelled 97.72 Glucose Cancelled 94 Calcium Cancelled 7.7 L Magnesium Cancelled 2.7 H Total Bilirubin Cancelled 0.81 AST Cancelled 27 ALT Cancelled 16 Alkaline Phosphatase Cancelled 158 H Troponin I Cancelled < 50 NT-Pro-B Natriuret Pep Cancelled 4413 H Total Protein Cancelled 5.7 L Albumin Cancelled 2.3 L Medical Decision Making Emergent evaluation of acute shortness of breath. The patient is mostly complaining of shortness of breath as well as itching from insect bites. On initial evaluation, the patient does have sites of excoriation and urticaria. Although she is complaining of shortness of breath, I do not feel that the patient has signs of anaphylaxis. She received an EKG on arrival which was concerning for some significant ST depressions, possible posterior STEMI. I compared this with prior EKG obtained on October 20. These changes do appear to be new from then. Again the patient is not complaining of chest pain. A STEMI was called at 1318 after the EKG was obtained. However after further discussion with the patient and repeat EKG, I feel less likely that this is a STEMI given her symptoms. 1350 posterior EKG reviewed, no evidence of STEMI. Patient feels better after IV Benadryl. IV Pepcid was also given for antihistamine. 1530 Patient is requesting a popsicle and nicotine lozenge. Regarding her itchiness and shortness of breath this seems to have resolved. I reviewed her lab work. Noted slight leukocytosis. No significant anemia. Her magnesium is noted to be slightly above normal level. Her potassium level is 2.8. This was repleted with IV medication. Her BNP is slightly elevated at just over 4000, which is not significant for the patient, her chest x-ray does not reveal pleural effusion or acute infiltrates. She does not have an elevated troponin. 1615 Patient continues to do well in the emergency department. Plan for repeat troponin and repeat BMP to ensure improvement in her potassium level prior to final disposition. Medical Records Medical records reviewed: Yes I reviewed the patient's medical records. Lab Data Lab results reviewed: Yes I reviewed the patient's lab results. Quality:SDOH Health Related Social Needs: Health related social needs transpo insecurity PFSH All Active Problems (Updated 10/24/23 @ 16:14 by Philly Cisneros MD) Acute electrocardiogram changes (Acute) Urticaria (Acute) Shortness of breath (Acute) Diphenhydramine adverse reaction (Acute) Hypokalemia (Acute) Anxiety (Chronic) Hypomagnesemia (Acute) Shortness of breath (Acute) Tobacco dependence syndrome (Acute) Pneumonia (Acute) Edema, peripheral (Acute) Cellulitis of left leg (Acute) Ambulatory dysfunction (Acute) Edema of both lower legs (Acute) Congestive heart failure (Chronic) COPD exacerbation (Acute) Cellulitis (Acute) Severe sepsis (Acute) Prolonged QT interval (Acute) Respiratory failure (Acute) Leg pain (Acute) Sepsis (Acute) Shock (Acute) Hypomagnesemia (Acute) Hypokalemia (Acute) Difficulty walking (Acute) PVD (peripheral vascular disease) (Chronic) Atherosclerosis of aorta (Acute) Acute hypokalemia (Acute) Hypoglycemia (Acute) Alcoholic ketoacidosis (Acute) Laceration of scalp (Acute) Fall (Acute) Chronic left hip pain (Acute) Contusion of hip (Acute) Closed intertrochanteric fracture of left hip (Acute) s/p IMN fixation (05/18/23) Smoker (Acute) Closed fracture of left hip (Acute) Fall (Acute) Anxiety (Chronic) Cavitary lesion of lung (Acute) H/O ETOH abuse (Acute) Tobacco use disorder (Acute 01/28/14) Pleural effusion (Acute) Hypomagnesemia (Acute) Fluid overload (Acute) Chest pain due to GERD (Acute) Chest wall muscle strain (Acute) Hypokalemia (Acute) Emphysema lung (Acute) Nicotine dependence, cigarettes, uncomplicated (Acute) Atherosclerosis (Acute) Gastric wall thickening (Acute) Stenosis of right internal carotid artery (Acute) Mass of upper lobe of right lung (Acute) Alcohol abuse (Chronic) Dehydration (Acute) Diarrhea (Acute) Hypomagnesemia (Chronic) B12 deficiency (Acute) Ascites (Acute) Chronic liver disease (Chronic) Weight loss, non-intentional (Acute) Macrocytic anemia (Acute) Early satiety (Acute) Folate deficiency (Acute) Hypomagnesemia (Acute) Hypokalemia (Acute) Leg pain (Acute) Cellulitis (Acute) Bilateral leg ulcer (Acute) Medical History Advanced care planning/counseling discussion Palliative care patient Pulmonary nodule COPD (chronic obstructive pulmonary disease) Hypomagnesemia Cachexia Hepatic fibrosis Ulcer of lower extremity Hair loss Vitamin D deficiency Chest pain Gastroesophageal reflux disease Hx pulmonary embolism COPD (chronic obstructive pulmonary disease) Chronic vomiting Malnutrition Frequent falls Bilateral leg pain Pancreatitis Diastolic dysfunction Folate deficiency anemia Ascites Bilateral lower extremity edema Unintentional weight loss Alcohol abuse Tobacco abuse Surgical History punch biopsy, skin of ankle, right lateral (11/24/16) negative for malignancy, sparse inflammation and reactive blood vessels foot surgery (~2000) Ligation of fallopian tube (~1999) ENT/Nasal surgery (~2007) Family History Father Lung disease Cancer Lung Social History Smoking/Tobacco Use Status: Current every day Tobacco Type: cigarettes Tobacco: How many years used: 45 Quit status: considering quitting Second Hand Exposure: Yes Smoking risk assessment performed?: Yes Alcohol Intake: current Alcohol Intake frequency: 3 or more drinks per day Alcohol type: wine and hard liquor Counseling given: Yes Counseling provided: provider counseling Drug use: Never Substance use type: marijuana Housing: apartment Current gender identity: female Do you feel safe at home: Yes Do you feel safe in your relationship?: Yes Additional Social history: Lives alone in studio in [facility], 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 Grew up in [facility], sisters in area. History History Para 0 Hx # Term Pregnancies Multiple births Hx # Pregnancies Ectopic pregnancies AB induced Hx Number of Living Children AB spontaneous PAWSS Have you Been Recently Intoxicated or Drunk Within the Last 30 days?: Yes Have you Ever Experienced Previous Episodes of Alcohol Withdrawal?: No Have you ever Experienced Withdrawal Seizures?: No Have you ever Experienced Delirium Tremens(DT)s?: No Have you ever undergone Alcohol Rehabilitation Treatment (i.e, inpt ot outpatient treatment programs)?: No Have you ever Experienced Blackouts?: No Have you ever Combined Alcohol with other Downers within the last 90 days?: No Have you ever Combined Alcohol with any other Substance of Abuse during the last 90 days?: No Positive Blood Alcohol level on Presentation? [PCS.BAL]: Unable to Obtain Evidence of Increased Autonomic Activity (i.e. HR>120, tremor, sweating, agitation, nausea)?: No Result: 1
--- NOTE | 2023-10-24 17:09 | W.EDPROG ---
Date of service: 10/24/23 Time of Service: 17:10 Medical Decision Making I received signout on this 63-year-old female pending a repeat troponin and repeat basic metabolic panel in the setting of shortness of breath and hypokalemia. Will reassess following repeat troponin. At baseline patient has low blood pressures. 5:15 PM Repeat basic metabolic panel showing improved hypokalemia with a serum potassium of 3.3. Repeat troponin also negative. Will repeat ECG. 5:48 PM Given ECG changes I was planning on admitting the patient. She felt improved. She wanted to go home. Given her abnormal ECG and her shortness of breath I felt that she would be benefited from hospitalization for repeat troponins. She felt that she was safe to go home. I advised her that the risks of going home including syncope arrhythmia and myocardial infarction. She had no signs of anaphylaxis on my reassessment. No shortness of breath. No hypoxia. Her breathing was nonlabored when I reassessed her. She understood these risks. 1. I explained the current situation and condition to the patient. 2. I explained the recommended treatment for this condition -hospitalization for repeat troponins 3. I explained the risk of not having the recommended treatment -syncope doubt arrhythmia myocardial infarction 4. The patient understands this information has no questions, and repeated back this information. 5. The patient states that they need to leave and will return if symptoms worsen and follow-up with primary care provider. 6. Mental status is lucid and the patient has decision-making capacity. 7. Patient is withdrawing consent for care Quality:SDOH Health Related Social Needs: Health related social needs transpo insecurity Sign Out Sign Out Data: Sign Out Comment: 63 y F with SOB, no CP. Did have EKG changes, but negative trop. hypoK, repleated with IV 10 meq x2 Pending: repeat trop, BMP, repeat EKG if all normal and patient wants to go home, ok to DC if abnormal would tele obs Last updated by Philly Cisneros MD at 10/24/23 16:28 Discharge Plan Disposition Patient Disposition: Against Medical Advice Discharge Details Clinical Impression: Shortness of breath, Urticaria, Acute electrocardiogram changes, Acute hypokalemia Primary Care Provider: MARIANO KEARNEY ED Provider: Nikunj Sanchez Home Meds and New Rx's Prescriptions: Continued ipratropium-albuterol 0.5 mg-3 mg(2.5 mg base)/3 mL solution for nebulization 3 ml inhalation Q4H PRN (Reason: wheezing) Qty: 540 8RF albuterol sulfate 90 mcg/actuation HFA aerosol inhaler 2 puff inhalation Q6H PRN (Reason: shortness of breath or wheezing) Qty: 8.5 12RF thiamine HCl (vitamin B1) 250 mg tablet 250 mg PO DAILY gabapentin 300 mg capsule 300 mg PO TID Stiolto Respimat 2.5-2.5 mcg/actuation mist 2 puff inhalation Q24H Qty: 4 12RF loperamide [Imodium A-D] 1 mg/7.5 mL liquid 2 mg PO Q1-4H PRNQty: 120 0RF Rx Instructions: administer after each loose stool until symptoms controlled; do not exceed 16 mg per 24 hrs multivitamin [Multiple Vitamins] Tablet 1 tab PO DAILY Qty: 30 0RF omeprazole 40 mg capsule,delayed release(DR/EC) 40 mg PO DAILY potassium chloride [Klor-Con M20] 20 mEq Tablet,Er Particles/Crystals 40 meq PO DAILY Qty: 90 0RF magnesium oxide 400 mg (241.3 mg magnesium) Tablet 400 mg PO DAILY Qty: 90 0RF prednisone 20 mg Tablet 40 mg PO DAILY Qty: 6 0RF nicotine (polacrilex) 2 mg Lozenge 2 mg SUC Q2H PRN PRNQty: 120 3RF Discharge Instructions Additional Instructions: You were seen in the emergency department for your shortness of breath. Your blood work showed no sign of heart attack. You are advised to stay in the hospital but he declined. Please return to the emergency department if you develop recurrent shortness of breath chest pain or if you pass out. Discharge Data Discharge Date/Time-TO BE ENTERED AT DEPARTURE: 10/24/23 18:12
[2023-10-24 17:12] LABS: Anion Gap 9.5 mmol/L (3-11); BUN 2 mg/dL (7-18); CO2 23.5 mmol/L (21.0-32.0); CREATININE 0.6 mg/dL (0.55-1.02); Calcium 7.1 mg/dL (8.5-10.1); Chloride 103 mmol/L (98-107); Estimated GFR 101.42 (mL/min/1.73m2); Glucose 85 mg/dL (74-106); Potassium 3.3 mmol/L (3.5-5.1); Sodium 136 mmol/L (136-145)
--- NOTE | 2023-10-24 17:15 | RT.EKG_ITS ---
APPROVED REPORT Exam: Resting ECG Reason for Exam: Shortness of breath Patient Location: E HR:95 bpm ECG Measurements Heart Rate 95 AXIS MN 154 P 69 QRSd 112 QRS 22 QT 395 T 31 QTc 498 Conclusion Sinus rhythm...normal P axis, V-rate 60- 99 Probable left atrial enlargement...P >50mS, <-0.10mV V1 Incomplete right bundle branch block...QRSd >112, terminal axis(90,270) Normal sinus rhythm at a rate of 95 with incomplete right bundle branch block. With ST segment depre ssions T wave inversions in the right chest wall leads which appear more pronounced compared to prior .
[2023-10-24 17:24] LABS: Troponin I < 50 ng/L (< or =60)
== END 2023-10-24 18:12 | disposition left against medical advice (07) ==
PROVIDERS: Emergency Medicine; Emergency Provider Emergency Medicine; PCP Nurse Practitioner Family
DX: F41.9 Anxiety disorder, unspecified; J44.9 Chronic obstructive pulmonary disease, unspecified; F10.20 Alcohol dependence, uncomplicated; Z79.899 Other long term (current) drug therapy
CPT/HCPCS: 00123; 36415; 80048; 80053; 93005; 96365; 96367; 96375; 99285; 71045; 83735; 83880; 84484; 85025; 93010; 99284; J1200; J3475; J3480

== ENCOUNTER 2023-10-26 20:41 | Emergency (ER) | payer BC, SELFPAY ==
[2023-10-26 20:43] VITALS: BP 81/51; PULSE 107; RESP 16; TEMP 36.5; O2SAT 98
--- NOTE | 2023-10-26 20:50 | ED.GENADUL_ITS ---
Discharge Plan Disposition Patient Disposition: Home Condition: Improving Discharge Details Chief Complaint: Anxiety Clinical Impression: Itching Primary Care Provider: MARIANO KEARNEY ED Provider: Sesar Solomon Home Meds and New Rx's Prescriptions: No Action ipratropium-albuterol 0.5 mg-3 mg(2.5 mg base)/3 mL solution for nebulization 3 ml inhalation Q4H PRN (Reason: wheezing) Qty: 540 8RF albuterol sulfate 90 mcg/actuation HFA aerosol inhaler 2 puff inhalation Q6H PRN (Reason: shortness of breath or wheezing) Qty: 8.5 12RF thiamine HCl (vitamin B1) 250 mg tablet 250 mg PO DAILY gabapentin 300 mg capsule 300 mg PO TID Stiolto Respimat 2.5-2.5 mcg/actuation mist 2 puff inhalation Q24H Qty: 4 12RF loperamide [Imodium A-D] 1 mg/7.5 mL liquid 2 mg PO Q1-4H PRNQty: 120 0RF Rx Instructions: administer after each loose stool until symptoms controlled; do not exceed 16 mg per 24 hrs multivitamin [Multiple Vitamins] Tablet 1 tab PO DAILY Qty: 30 0RF omeprazole 40 mg capsule,delayed release(DR/EC) 40 mg PO DAILY potassium chloride [Klor-Con M20] 20 mEq Tablet,Er Particles/Crystals 40 meq PO DAILY Qty: 90 0RF magnesium oxide 400 mg (241.3 mg magnesium) Tablet 400 mg PO DAILY Qty: 90 0RF prednisone 20 mg Tablet 40 mg PO DAILY Qty: 6 0RF nicotine (polacrilex) 2 mg Lozenge 2 mg SUC Q2H PRN PRNQty: 120 3RF Discharge Instructions Instructions: Itchy Skin HPI General Date/Time Provider Initiated Documentation: 10/26/23 20:49 . HPI Narrative: 63-year-old female history of COPD, alcoholism presents brought in by ambulance for possible panic attack, felt anxious and short of breath resolved spontaneously, no chest pain, saturating 99% on room air per EMS, normal vital signs, no trauma, patient endorses some itching lesions on her arms and her legs. Related Data Home Medications Medication Instructions Recorded Confirmed multivitamin (Multiple Vitamins 1 tab PO DAILY #30 tabs 08/13/20 10/26/23 tablet) albuterol sulfate 90 mcg/actuation 2 puff inhalation Q6H PRN 01/18/22 10/26/23 aerosol inhaler shortness of breath or wheezing #8.5 grams thiamine HCl (vitamin B1) 250 mg 250 mg PO DAILY 04/19/23 10/26/23 tablet tiotropium 2.5 mcg-olodaterol 2.5 2 puff inhalation Q24H #4 grams 05/04/23 10/26/23 mcg/actuation mist for inhalation (Stiolto Respimat) ipratropium 0.5 mg-albuterol 3 mg 3 ml inhalation Q4H PRN wheezing 05/10/23 10/26/23 (2.5 mg base)/3 mL nebulization #540 mL soln gabapentin 300 mg capsule 300 mg PO TID 06/06/23 10/26/23 omeprazole 40 mg capsule,delayed 40 mg PO DAILY 06/12/23 10/26/23 release loperamide 1 mg/7.5 mL oral liquid 2 mg (15 mL) PO Q1-4H PRN #120 mL 08/02/23 10/26/23 (Imodium A-D) magnesium oxide 400 mg (241.3 mg 400 mg PO DAILY #90 tabs 10/06/23 10/26/23 magnesium) tablet potassium chloride 20 mEq 40 meq (2 x 20 mEq) PO DAILY #90 10/06/23 10/26/23 tablet,extended tabs release(part/cryst) (Klor-Con M) nicotine (polacrilex) 2 mg buccal 2 mg SUC Q2H PRN PRN #120 ea 10/11/23 10/26/23 lozenge prednisone 20 mg tablet 40 mg (2 x 20 mg) PO DAILY #6 tabs 10/11/23 10/26/23 Previous Rx's Medication Instructions Recorded multivitamin (Multiple Vitamins 1 tab PO DAILY #30 tabs 08/13/20 tablet) albuterol sulfate 90 mcg/actuation 2 puff inhalation Q6H PRN 01/18/22 aerosol inhaler shortness of breath or wheezing #8.5 grams tiotropium 2.5 mcg-olodaterol 2.5 2 puff inhalation Q24H #4 grams 05/04/23 mcg/actuation mist for inhalation (Stiolto Respimat) ipratropium 0.5 mg-albuterol 3 mg 3 ml inhalation Q4H PRN wheezing 05/10/23 (2.5 mg base)/3 mL nebulization #540 mL soln loperamide 1 mg/7.5 mL oral liquid 2 mg (15 mL) PO Q1-4H PRN #120 mL 08/02/23 (Imodium A-D) magnesium oxide 400 mg (241.3 mg 400 mg PO DAILY #90 tabs 10/06/23 magnesium) tablet potassium chloride 20 mEq 40 meq (2 x 20 mEq) PO DAILY #90 10/06/23 tablet,extended tabs release(part/cryst) (Klor-Con M) nicotine (polacrilex) 2 mg buccal 2 mg SUC Q2H PRN PRN #120 ea 10/11/23 lozenge prednisone 20 mg tablet 40 mg (2 x 20 mg) PO DAILY #6 tabs 10/11/23 Allergies Allergy/AdvReac Type Severity Reaction Status Date / Time bacitracin Allergy Mild localized Verified 10/26/23 20:50 [From Neosporin redness ([id number])] neomycin Allergy Mild localized Verified 10/26/23 20:50 [From Neosporin redness ([id number])] polymyxin B Allergy Mild localized Verified 10/26/23 20:50 [From Neosporin redness ([id number])] General Stated Complaint: Anxiety RAHEEM: 5 Review of Systems Narrative: Review of Systems Constitutional: negative Eyes: negative ENT: negative Cardiovascular: negative Respiratory: negative Gastrointestinal: negative : negative Musculoskeletal: negative Skin: Itching Neurologic: negative Psych: negative Exam Narrative Exam Narrative: Physical Examination General: alert, awake, cooperative, resting comfortably, no acute distress HEENT: normocephalic, atraumatic; PERRL, EOM intact, conjunctiva normal; no nasal discharge; moist mucous membranes, oral and pharyngeal mucosa normal, tolerating secretions Neck: supple, trachea midline; full ROM Chest: normal to inspection Respiratory: normal respiratory effort, speaking in full sentences, clear to auscultation, no wheezing, rales or rhonchi Cardiac: regular rate, regular rhythm, S1S2 intact, no murmurs rubs or gallops GI: abdomen soft, non-tender, non-distended; no palpable mass or hepatosplenomegaly Skin: no lesions, rashes or trauma appreciated Neuro: AAOx3, normal speech, moving all extremities Extremities:No peripheral edema Psych: Appropriate mood and affect Course Vital Signs Vital signs: Vital Signs Temperature 36.5 C 10/26/23 20:43 Pulse 107 H 10/26/23 20:43 Respiratory Rate 16 10/26/23 20:43 Blood Pressure 81/51 L 10/26/23 20:43 Pulse Oximetry 98 10/26/23 20:43 Temperature 36.5 C 10/26/23 20:43 Pulse 107 H 10/26/23 20:43 Respiratory Rate 16 10/26/23 20:43 Blood Pressure 81/51 L 10/26/23 20:43 Pulse Oximetry 98 10/26/23 20:43 Pain Level 8 10/26/23 20:43 Medical Decision Making 63-year-old female history of COPD alcoholism, presents with resolved anxiety symptoms, felt anxious and short of breath briefly then resolved, no chest pain no shortness of breath currently afebrile nontoxic speaking full sentences not hypoxic, alert oriented moving all extremities, no signs of trauma or infection. Consider panic attack for his anxiety low suspicion for alcohol withdrawal patient endorses itching lesions on arms and legs consider bug bites versus dry skin. Soft blood pressure and tachycardia consistent with patient's prior baseline. Will provide p.o. Ativan for anxiolysis, p.o. challenge with snack and fluids, topical anti-itch cream. Low suspicion for serious bacterial infection electrolyte derangement PE ACS or aortic pathology, no evidence of COPD exacerbation currently. 21: 48 patient resting comfortably no acute distress feeling much better after diphenhydramine and topical cream. Alert oriented interactive. No respiratory distress Quality:SDOH Health Related Social Needs: Health related social needs transpo insecurity PFSH All Active Problems (Updated 10/26/23 @ 21:49 by Sesar Solomon MD) Itching (Acute) Acute hypokalemia (Acute) Acute electrocardiogram changes (Acute) Urticaria (Acute) Shortness of breath (Acute) Diphenhydramine adverse reaction (Acute) Hypokalemia (Acute) Anxiety (Chronic) Hypomagnesemia (Acute) Shortness of breath (Acute) Tobacco dependence syndrome (Acute) Pneumonia (Acute) Edema, peripheral (Acute) Cellulitis of left leg (Acute) Ambulatory dysfunction (Acute) Edema of both lower legs (Acute) Congestive heart failure (Chronic) COPD exacerbation (Acute) Cellulitis (Acute) Severe sepsis (Acute) Prolonged QT interval (Acute) Respiratory failure (Acute) Leg pain (Acute) Sepsis (Acute) Shock (Acute) Hypomagnesemia (Acute) Hypokalemia (Acute) Difficulty walking (Acute) PVD (peripheral vascular disease) (Chronic) Atherosclerosis of aorta (Acute) Acute hypokalemia (Acute) Hypoglycemia (Acute) Alcoholic ketoacidosis (Acute) Laceration of scalp (Acute) Fall (Acute) Chronic left hip pain (Acute) Contusion of hip (Acute) Closed intertrochanteric fracture of left hip (Acute) s/p IMN fixation (05/18/23) Smoker (Acute) Closed fracture of left hip (Acute) Fall (Acute) Anxiety (Chronic) Cavitary lesion of lung (Acute) H/O ETOH abuse (Acute) Tobacco use disorder (Acute 01/28/14) Pleural effusion (Acute) Hypomagnesemia (Acute) Fluid overload (Acute) Chest pain due to GERD (Acute) Chest wall muscle strain (Acute) Hypokalemia (Acute) Emphysema lung (Acute) Nicotine dependence, cigarettes, uncomplicated (Acute) Atherosclerosis (Acute) Gastric wall thickening (Acute) Stenosis of right internal carotid artery (Acute) Mass of upper lobe of right lung (Acute) Alcohol abuse (Chronic) Dehydration (Acute) Diarrhea (Acute) Hypomagnesemia (Chronic) B12 deficiency (Acute) Ascites (Acute) Chronic liver disease (Chronic) Weight loss, non-intentional (Acute) Macrocytic anemia (Acute) Early satiety (Acute) Folate deficiency (Acute) Hypomagnesemia (Acute) Hypokalemia (Acute) Leg pain (Acute) Cellulitis (Acute) Bilateral leg ulcer (Acute) Medical History Advanced care planning/counseling discussion Palliative care patient Pulmonary nodule COPD (chronic obstructive pulmonary disease) Hypomagnesemia Cachexia Hepatic fibrosis Ulcer of lower extremity Hair loss Vitamin D deficiency Chest pain Gastroesophageal reflux disease Hx pulmonary embolism COPD (chronic obstructive pulmonary disease) Chronic vomiting Malnutrition Frequent falls Bilateral leg pain Pancreatitis Diastolic dysfunction Folate deficiency anemia Ascites Bilateral lower extremity edema Unintentional weight loss Alcohol abuse Tobacco abuse Surgical History punch biopsy, skin of ankle, right lateral (11/24/16) negative for malignancy, sparse inflammation and reactive blood vessels foot surgery (~2000) Ligation of fallopian tube (~1999) ENT/Nasal surgery (~2007) Family History Father Lung disease Cancer Lung Social History Smoking/Tobacco Use Status: Current every day Tobacco Type: cigarettes Tobacco: How many years used: 45 Quit status: considering quitting Second Hand Exposure: Yes Smoking risk assessment performed?: Yes Alcohol Intake: current Alcohol Intake frequency: 3 or more drinks per day Alcohol type: wine and hard liquor Counseling given: Yes Counseling provided: provider counseling Drug use: Never Substance use type: marijuana Housing: apartment Current gender identity: female Do you feel safe at home: Yes Do you feel safe in your relationship?: Yes Additional Social history: Lives alone in studio in [facility], 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 Grew up in [facility], sisters in area. History History Para 0 Hx # Term Pregnancies Multiple births Hx # Pregnancies Ectopic pregnancies AB induced Hx Number of Living Children AB spontaneous
[2023-10-26] MEDS: LORazepam 0.5 MG TAB PO (20:55)
[2023-10-26] MEDS: diphenhydrAMINE /ZINC ACET CR 30 GM TUBE TP (21:25)
[2023-10-26 21:53] VITALS: BP 92/45; PULSE 102; RESP 18; TEMP 36.6; O2SAT 99
== END 2023-10-26 22:26 | disposition home or self-care (01) ==
PROVIDERS: Emergency Provider Emergency Medicine; PCP Nurse Practitioner Family
DX: L29.9 Pruritus, unspecified (principal); F41.9 Anxiety disorder, unspecified
CPT/HCPCS: 99283

== ENCOUNTER 2023-11-11 12:56 | Emergency (ER) | payer BC, SELFPAY ==
[2023-11-11] VITALS (25 sets, daily range): BP systolic 73–124; BP diastolic 22–99; PULSE 100–115; RESP 9–35; TEMP 37.2; O2SAT 95–99
--- NOTE | 2023-11-11 12:45 | RT.EKG_ITS ---
APPROVED REPORT Exam: Resting ECG Reason for Exam: Dyspnea Patient Location: E HR:108 bpm ECG Measurements Heart Rate 108 AXIS OR 144 P 70 QRSd 107 QRS 194 QT 379 T 49 QTc 506 Conclusion Sinus tachycardia...rate> 99 Atrial premature complexes...SV complexes w/ short R-R intvls Probable left atrial enlargement...P >50mS, <-0.10mV V1 Prolonged QT interval...QTc >500mS
--- NOTE | 2023-11-11 13:45 | DI.RAD_ITS ---
Exam(s) XR CHEST 2V PA LATERAL EXAM: XR CHEST 2V PA LATERAL CLINICAL HISTORY: shortness of breath TECHNIQUE: 2D digital imaging was performed. Two views. COMPARISON: CT CT CHEST PE ABD PELVIS W from 09/13/2023 CR XR PORTABLE CHEST AP from 10/17/2023 CR XR CHEST 2V PA LATERAL from 10/18/2023 CR XR PORTABLE CHEST AP from 10/24/2023 FINDINGS: HEART: Normal size. Aorta: Not dilated. PULMONARY VASCULATURE: Normal. MEDIASTINUM: Unremarkable. LUNGS: Emphysematous changes. Scarring right upper lobe. No focal infiltrate PLEURAL SPACE: No pleural effusion or pneumothorax. BONE:Unremarkable for age. SOFT TISSUES: Unremarkable. IMPRESSION: No acute abnormality. DATA REPOSITORY: RADIATION DOSE DELIVERED:
--- NOTE | 2023-11-11 14:00 | ED.GENADUL_ITS ---
Discharge Plan Disposition Patient Disposition: Home Condition: Stable Discharge Details Clinical Impression: Shortness of breath, Hypomagnesemia, COPD (chronic obstructive pulmonary disease) Primary Care Provider: MARIANO KEARNEY ED Provider: Derek Dejesus Home Meds and New Rx's Prescriptions: Continued ipratropium-albuterol 0.5 mg-3 mg(2.5 mg base)/3 mL solution for nebulization 3 ml inhalation Q4H PRN (Reason: wheezing) Qty: 540 8RF albuterol sulfate 90 mcg/actuation HFA aerosol inhaler 2 puff inhalation Q6H PRN (Reason: shortness of breath or wheezing) Qty: 8.5 12RF thiamine HCl (vitamin B1) 250 mg tablet 250 mg PO DAILY gabapentin 300 mg capsule 300 mg PO TID Stiolto Respimat 2.5-2.5 mcg/actuation mist 2 puff inhalation Q24H Qty: 4 12RF loperamide [Imodium A-D] 1 mg/7.5 mL liquid 2 mg PO Q1-4H PRNQty: 120 0RF Rx Instructions: administer after each loose stool until symptoms controlled; do not exceed 16 mg per 24 hrs multivitamin [Multiple Vitamins] Tablet 1 tab PO DAILY Qty: 30 0RF omeprazole 40 mg capsule,delayed release(DR/EC) 40 mg PO DAILY potassium chloride [Klor-Con M20] 20 mEq Tablet,Er Particles/Crystals 40 meq PO DAILY Qty: 90 0RF magnesium oxide 400 mg (241.3 mg magnesium) Tablet 400 mg PO DAILY Qty: 90 0RF prednisone 20 mg Tablet 40 mg PO DAILY Qty: 6 0RF nicotine (polacrilex) 2 mg Lozenge 2 mg SUC Q2H PRN PRNQty: 120 3RF Discharge Instructions Additional Instructions: Follow-up with your primary care provider within 1 week If you feel more ill or have severe worsening shortness of breath return to the emergency department for reevaluation HPI General Mode of arrival: ambulatory . Date/Time Provider Initiated Documentation: 11/11/23 13:08 . Limitations to Documentation: no limitations . Information obtained by: patient . History of Present Illness 63 year old F presents to the emergency department with the chief complaint of shortness of breath, described as moderate, Patient started experiencing this day(s) (3) and it has been constant. No relieving factors improve symptom(s), No exacerbating factors reported . Patient notes cough; denies chest pain and fever/chills. Patient did receive the following treatments prior to arrival, none Related Data Home Medications ?Medication ?Instructions ?Recorded ?Confirmed multivitamin (Multiple Vitamins 1 tab PO DAILY #30 tabs 08/13/20 11/11/23 tablet) albuterol sulfate 90 mcg/actuation 2 puff inhalation Q6H PRN 01/18/22 11/11/23 aerosol inhaler shortness of breath or wheezing #8.5 grams thiamine HCl (vitamin B1) 250 mg 250 mg PO DAILY 04/19/23 11/11/23 tablet tiotropium 2.5 mcg-olodaterol 2.5 2 puff inhalation Q24H #4 grams 05/04/23 11/11/23 mcg/actuation mist for inhalation (Stiolto Respimat) ipratropium 0.5 mg-albuterol 3 mg 3 ml inhalation Q4H PRN wheezing 05/10/23 11/11/23 (2.5 mg base)/3 mL nebulization #540 mL soln gabapentin 300 mg capsule 300 mg PO TID 06/06/23 11/11/23 omeprazole 40 mg capsule,delayed 40 mg PO DAILY 06/12/23 11/11/23 release loperamide 1 mg/7.5 mL oral liquid 2 mg (15 mL) PO Q1-4H PRN #120 mL 08/02/23 11/11/23 (Imodium A-D) magnesium oxide 400 mg (241.3 mg 400 mg PO DAILY #90 tabs 10/06/23 11/11/23 magnesium) tablet potassium chloride 20 mEq 40 meq (2 x 20 mEq) PO DAILY #90 10/06/23 11/11/23 tablet,extended tabs release(part/cryst) (Klor-Con M) nicotine (polacrilex) 2 mg buccal 2 mg SUC Q2H PRN PRN #120 ea 10/11/23 11/11/23 lozenge prednisone 20 mg tablet 40 mg (2 x 20 mg) PO DAILY #6 tabs 10/11/23 11/11/23 Previous Rx's ?Medication ?Instructions ?Recorded multivitamin (Multiple Vitamins 1 tab PO DAILY #30 tabs 08/13/20 tablet) albuterol sulfate 90 mcg/actuation 2 puff inhalation Q6H PRN 01/18/22 aerosol inhaler shortness of breath or wheezing #8.5 grams tiotropium 2.5 mcg-olodaterol 2.5 2 puff inhalation Q24H #4 grams 05/04/23 mcg/actuation mist for inhalation (Stiolto Respimat) ipratropium 0.5 mg-albuterol 3 mg 3 ml inhalation Q4H PRN wheezing 05/10/23 (2.5 mg base)/3 mL nebulization #540 mL soln loperamide 1 mg/7.5 mL oral liquid 2 mg (15 mL) PO Q1-4H PRN #120 mL 08/02/23 (Imodium A-D) magnesium oxide 400 mg (241.3 mg 400 mg PO DAILY #90 tabs 10/06/23 magnesium) tablet potassium chloride 20 mEq 40 meq (2 x 20 mEq) PO DAILY #90 10/06/23 tablet,extended tabs release(part/cryst) (Klor-Con M) nicotine (polacrilex) 2 mg buccal 2 mg SUC Q2H PRN PRN #120 ea 10/11/23 lozenge prednisone 20 mg tablet 40 mg (2 x 20 mg) PO DAILY #6 tabs 10/11/23 Allergies Allergy/AdvReac Type Severity Reaction Status Date / Time bacitracin (From Neosporin Allergy Mild localized Verified 10/26/23 20:50 ([id number])) redness neomycin (From Neosporin Allergy Mild localized Verified 10/26/23 20:50 ([id number])) redness polymyxin B (From Neosporin Allergy Mild localized Verified 10/26/23 20:50 ([id number])) redness General Stated Complaint: RespSymp RAHEEM: 3 Review of Systems All systems reviewed & are unremarkable except as noted in HPI and below Constitutional Constitutional: Denies chills and Denies fever(s) Cardiovascular Cardiovascular: Denies chest pain and Reports dyspnea Respiratory Respiratory: Reports cough and Reports dyspnea Gastrointestinal Gastrointestinal: Denies abdominal pain, Denies nausea and Denies vomiting Integumentary/Breasts Skin/Breast: Reports rash Exam Const General: no acute distress Orientation: alert HENMT Head: normal to inspection Ears: external ears normal General nose exam: external nose normal Mouth: moist mucous membranes Eyes General: appearance normal, both eyes and all related structures Neck Neck: normal visual inspection Resp Effort & Inspection: normal respiratory effort and able to speak in complete sentences Auscultation: wheezes Cardio Jugular venous pressure: no JVD Rate: regular rate Skin General skin exam: no rashes or lesions noted Neuro General: patient alert and patient oriented x3 Extrem General: normal to inspection Psych Mental Status: mental status grossly normal Course Vital Signs Vital signs: Vital Signs Pulse 107 H 11/11/23 12:55 Respiratory Rate 18 11/11/23 12:55 Blood Pressure 106/80 11/11/23 12:55 Pulse Oximetry 98 11/11/23 12:55 Pulse 107 H 11/11/23 12:55 Respiratory Rate 18 11/11/23 12:55 Blood Pressure 106/80 11/11/23 12:55 Blood Pressure Position Sitting 11/11/23 12:55 Pulse Oximetry 98 11/11/23 12:55 Oxygen Delivery Method Nasal Cannula 11/11/23 12:55 Oxygen Flow Rate 3 11/11/23 12:55 Medical Decision Making 63-year-old female with multiple medical problems including alcohol abuse, COPD, is chronic smoker, who comes in with shortness of breath for the last 3 days and also intermittent which she says is hives on her abdomen and chest. She was seen for a similar rash in September and also admitted in September for a pleural effusion that was found not amenable to drainage. She says she is also in a wet cough for the last 3 days. She is alert and oriented x 4 and arrival speaking clearly. She has wheezing in both lung brady in all lobes. No JVD, no leg swelling, no calf tenderness. She denies any chest pain. I suspect COPD but given her recent pleural effusion will obtain a CBC, CMP, troponin and proBNP along with procalcitonin and a chest x-ray. She has no evidence of DVT on exam so doubt PE. Will treat her likely COPD exacerbation with dexamethasone and a DuoNeb. Patient stable, room air saturation is 94%. Workup shows no significant acute findings, has chronically low magnesium and mild leukocytosis which she normally has and is likely due to being on steroids frequently. She has a negative x- ray. Given stable vital signs and reassuring workup do not feel she requires inpatient admission. Advised to follow-up with her PCP and return precautions given Differential Diagnosis Differential Diagnosis: COPD, pneumonia, pleural effusion Imaging Data Radiologic Study: Attestation: I personally reviewed and interpreted this imaging study as follows: Imaging: X-Ray Radiologist's impression: no acute findings Lab Data Lab results reviewed: Yes I reviewed the patient's lab results. ECG Data Attestation: I personally reviewed and interpreted this ECG (s) as follows: Prior ECG tracings: available for review Interpretation: Sinus tachycardia, rate of 108, NC 144, no STEMI Quality:SDOH Health Related Social Needs: Health related social needs transpo insecurity PFSH All Active Problems (Updated 11/11/23 @ 16:45 by Derek Dejesus MD) COPD (chronic obstructive pulmonary disease) (Chronic) Hypomagnesemia (Acute) Shortness of breath (Acute) Itching (Acute) Acute hypokalemia (Acute) Acute electrocardiogram changes (Acute) Urticaria (Acute) Shortness of breath (Acute) Diphenhydramine adverse reaction (Acute) Hypokalemia (Acute) Anxiety (Chronic) Hypomagnesemia (Acute) Shortness of breath (Acute) Tobacco dependence syndrome (Acute) Edema, peripheral (Acute) Cellulitis of left leg (Acute) Ambulatory dysfunction (Acute) Edema of both lower legs (Acute) Congestive heart failure (Chronic) COPD exacerbation (Acute) Cellulitis (Acute) Severe sepsis (Acute) Prolonged QT interval (Acute) Respiratory failure (Acute) Leg pain (Acute) Sepsis (Acute) Shock (Acute) Hypomagnesemia (Acute) Hypokalemia (Acute) Difficulty walking (Acute) PVD (peripheral vascular disease) (Chronic) Atherosclerosis of aorta (Acute) Acute hypokalemia (Acute) Hypoglycemia (Acute) Alcoholic ketoacidosis (Acute) Laceration of scalp (Acute) Fall (Acute) Chronic left hip pain (Acute) Contusion of hip (Acute) Closed intertrochanteric fracture of left hip (Acute) s/p IMN fixation (05/18/23) Smoker (Acute) Closed fracture of left hip (Acute) Fall (Acute) Anxiety (Chronic) Cavitary lesion of lung (Acute) H/O ETOH abuse (Acute) Tobacco use disorder (Acute 01/28/14) Pleural effusion (Acute) Hypomagnesemia (Acute) Fluid overload (Acute) Chest pain due to GERD (Acute) Chest wall muscle strain (Acute) Hypokalemia (Acute) Emphysema lung (Acute) Nicotine dependence, cigarettes, uncomplicated (Acute) Atherosclerosis (Acute) Gastric wall thickening (Acute) Stenosis of right internal carotid artery (Acute) Mass of upper lobe of right lung (Acute) Alcohol abuse (Chronic) Dehydration (Acute) Diarrhea (Acute) Hypomagnesemia (Chronic) B12 deficiency (Acute) Ascites (Acute) Chronic liver disease (Chronic) Weight loss, non-intentional (Acute) Macrocytic anemia (Acute) Early satiety (Acute) Folate deficiency (Acute) Hypomagnesemia (Acute) Hypokalemia (Acute) Leg pain (Acute) Cellulitis (Acute) Bilateral leg ulcer (Acute) Medical History Advanced care planning/counseling discussion Palliative care patient Pulmonary nodule COPD (chronic obstructive pulmonary disease) Hypomagnesemia Cachexia Hepatic fibrosis Ulcer of lower extremity Hair loss Vitamin D deficiency Chest pain Gastroesophageal reflux disease Hx pulmonary embolism COPD (chronic obstructive pulmonary disease) Chronic vomiting Malnutrition Frequent falls Bilateral leg pain Pancreatitis Diastolic dysfunction Folate deficiency anemia Ascites Bilateral lower extremity edema Unintentional weight loss Alcohol abuse Tobacco abuse Surgical History punch biopsy, skin of ankle, right lateral (11/24/16) negative for malignancy, sparse inflammation and reactive blood vessels foot surgery (~2000) Ligation of fallopian tube (~1999) ENT/Nasal surgery (~2007) Family History Father Lung disease Cancer Lung Social History Smoking/Tobacco Use Status: Current every day Tobacco Type: cigarettes Tobacco: How many years used: 45 Quit status: considering quitting Second Hand Exposure: Yes Smoking risk assessment performed?: Yes Alcohol Intake: current Alcohol Intake frequency: 3 or more drinks per day Alcohol type: wine and hard liquor Counseling given: Yes Counseling provided: provider counseling Drug use: Never Substance use type: marijuana Housing: apartment Current gender identity: female Do you feel safe at home: Yes Do you feel safe in your relationship?: Yes Additional Social history: Lives alone in studio in [facility], 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 Grew up in [facility], sisters in area. History History Para 0 Hx # Term Pregnancies Multiple births Hx # Pregnancies Ectopic pregnancies AB induced Hx Number of Living Children AB spontaneous
[2023-11-11] MEDS: Dexamethasone 10 MG/ML VIAL IVP (15:10)
[2023-11-11] MEDS: Albuterol/Ipratropium 3 ML UPD VIAL UPD (15:10)
[2023-11-11 15:24] LABS: ALT 18 U/L (14-59); AST 34 U/L (15-37); Albumin 2.1 g/dL (3.4-5.0); Alkaline Phosphatase 143 U/L (46-116); Anion Gap 8.5 mmol/L (3-11); BUN 6 mg/dL (7-18); CO2 28.5 mmol/L (21.0-32.0); CREATININE 0.7 mg/dL (0.55-1.02); Calcium 8.3 mg/dL (8.5-10.1); Chloride 95 mmol/L (98-107); Estimated GFR 97.72 (mL/min/1.73m2); Glucose 84 mg/dL (74-106); Magnesium 1.3 mg/dL (1.8-2.4); NT-proBNP 3244 pg/mL (<300); Potassium 3.6 mmol/L (3.5-5.1); Sodium 132 mmol/L (136-145); Total Protein 5.4 g/dL (6.4-8.2); Troponin I < 50 ng/L (< or =60)
[2023-11-11 15:38] LABS: Procalcitonin < 0.1 ng/mL
[2023-11-11 15:39] LABS: COVID-19 PCR Negative (Negative); Influenza A PCR Negative (Negative); Influenza B PCR Negative (Negative); RSV PCR Negative (Negative)
[2023-11-11 15:42] LABS: Source Nasopharynx
[2023-11-11 16:20] LABS: Abs Immature Grans 0.07 10^3/uL (0.0-0.06); Absolute Basophil Count 0.06 10^3/uL (0.0-0.2); Absolute Eosinophil Count 0.01 10^3/uL (0.0-0.7); Absolute Lymphocyte Count 1.04 10^3/uL (1.2-3.4); Absolute Monocyte Count 0.72 10^3/uL (0.1-0.8); Absolute Neutrophil Count 10.31 10^3/uL (1.2-6.7); Basophils % 0.5 %; Eosinophils % 0.1 %; HCT 34.2 % (36.0-46.0); HGB 11.6 g/dL (11.2-15.7); Immature Grans % 0.6 %; Lymphocytes % 8.5 %; MCH 35.5 pg (27.0-33.0); MCHC 33.9 % (32.0-36.0); MCV 105 fL (80-95); MPV 10.1 fL (8.0-11.0); Monocytes % 5.9 %; Neutrophils % 84.4 %; Platelet Count 299 10^3/uL (130-400); RBC 3.27 10^6/uL (3.93-5.22); RDW 14.6 % (11.7-14.6); RDW-SD 56.2 fL; WBC 12.21 10^3/uL (4.4-10.8)
== END 2023-11-11 17:25 | disposition home or self-care (01) ==
LOC: ER 16:45 → RED 17:24 → ER 17:24
PROVIDERS: Emergency Provider Emergency Medicine; PCP Nurse Practitioner Family
DX: R06.02 Shortness of breath (principal); E83.42 Hypomagnesemia; J44.9 Chronic obstructive pulmonary disease, unspecified; R00.0 Tachycardia, unspecified; F17.210 Nicotine dependence, cigarettes, uncomplicated
CPT/HCPCS: 80053; 84145; 87637; 93005; 94640; 96374; 99285; 71046; 83735; 83880; 84484; 85025; 93010; 99284; J1100; J7620

== ENCOUNTER 2023-11-25 15:29 | Emergency (ER) | payer BC, SELFPAY ==
[2023-11-25] VITALS (31 sets, daily range): BP systolic 70–164; BP diastolic 50–103; PULSE 81–120; RESP 12–27; TEMP 36.7; O2SAT 100
--- NOTE | 2023-11-25 15:30 | RT.EKG_ITS ---
APPROVED REPORT Exam: Resting ECG Reason for Exam: sob Patient Location: E HR:117 bpm ECG Measurements Heart Rate 117 AXIS AR 133 P 77 QRSd 109 QRS 106 QT 350 T 21 QTc 475 Conclusion Sinus tachycardia...rate> 99 Atrial premature complexes...SV complexes w/ short R-R intvls Posterior infarct, acute...ST<-0.1 V1-V3 or ST>.05 V7-V9 Sinus tachycardia rate of 117 with interventricular conduction delay and a QRS of 100 ms. Normal axi s. Anterior ST segment depressions appear similar to prior. Given concern for possibility of public address servicer ior [place] posterior ECG was obtained.
--- NOTE | 2023-11-25 15:34 | ED.GENADUL_ITS ---
Discharge Plan Disposition Patient Disposition: Home Discharge Details Clinical Impression: COPD with acute exacerbation Primary Care Provider: MARIANO KEARNEY ED Provider: Nikunj Sanchez Home Meds and New Rx's Prescriptions: New doxycycline hyclate 100 mg capsule 100 mg PO BID Qty: 10 0RF prednisone 20 mg tablet 20 mg PO DAILY Qty: 4 0RF No Action ipratropium-albuterol 0.5 mg-3 mg(2.5 mg base)/3 mL solution for nebulization 3 ml inhalation Q4H PRN (Reason: wheezing) Qty: 540 8RF albuterol sulfate 90 mcg/actuation HFA aerosol inhaler 2 puff inhalation Q6H PRN (Reason: shortness of breath or wheezing) Qty: 8.5 12RF thiamine HCl (vitamin B1) 250 mg tablet 250 mg PO DAILY gabapentin 300 mg capsule 300 mg PO TID Stiolto Respimat 2.5-2.5 mcg/actuation mist 2 puff inhalation Q24H Qty: 4 12RF loperamide [Imodium A-D] 1 mg/7.5 mL liquid 2 mg PO Q1-4H PRNQty: 120 0RF Rx Instructions: administer after each loose stool until symptoms controlled; do not exceed 16 mg per 24 hrs multivitamin [Multiple Vitamins] Tablet 1 tab PO DAILY Qty: 30 0RF omeprazole 40 mg capsule,delayed release(DR/EC) 40 mg PO DAILY potassium chloride [Klor-Con M20] 20 mEq Tablet,Er Particles/Crystals 40 meq PO DAILY Qty: 90 0RF magnesium oxide 400 mg (241.3 mg magnesium) Tablet 400 mg PO DAILY Qty: 90 0RF prednisone 20 mg Tablet 40 mg PO DAILY Qty: 6 0RF nicotine (polacrilex) 2 mg Lozenge 2 mg SUC Q2H PRN PRNQty: 120 3RF hydrocortisone 2.5 % cream 1 applic TOPICAL Patient Comments: APPLY TAKE OAA TWO TIMES A DAY NEEDED FOR 14 DAYS Discharge Instructions Instructions: COPD Exacerbation, Adult ED Additional Instructions: You were seen in the emergency department for your shortness of breath. You are diagnosed with a COPD exacerbation for which you should take steroids as directed. Please return to the emergency department if you develop worsening shortness of breath chest pain or if you have any other concerns. HPI General Date/Time Provider Initiated Documentation: 07/26/24 15:31 . HPI Narrative: MDM This is a cachectic normothermic but tachycardic 63-year-old female with history of COPD with prolonged expiratory phase concern for possibility of COPD exacerbation. Given shortness of breath I obtain a proBNP however the patient had no significant signs of volume overload on exam so I did not feel that she required diuresis. PE is certainly in the differential so we will obtain a D- dimer. Will obtain troponin to assess for myocardial injury. No pain out of proportion to suggest necrotizing soft tissue infection. No chest pain to suggest aortic dissection. No rash to chest to suggest zoster. Patient does have diffuse hives but these have been ongoing for the past approximately 1 month and stopped in the absence of any wheezes tongue swelling nausea or vomiting I am not concerned for anaphylaxis I did not feel the patient required epinephrine. No black nor bloody stools so doubt anemia. 4:55 PM CBC lacks anemia thrombocytopenia and leukocytosis. Venous blood gas shows no acidemia nor hypercarbia. 5:10 PM Negative initial troponin. Basic metabolic panel showing no TAMRA. Marked hypokalemia for which patient will receive IV repletion. Mild hypocalcemia. CXR concerning for the possibility of infiltrate for which patient will receive IV antibiotics. 8:48 PM Mildly elevated proBNP. Mild hypomagnesemia. Patient had slight improvement in her potassium and magnesium status post repletion. She felt improved and wanted to be discharged home. I ordered her for doxycycline and prednisone. We discussed return to the ED for worsening difficulty breathing chest pain or any syncope. Patient's vitals were notable during her emergency department stay for multiple episodes of hypotension and tachycardia. She had been using her albuterol prehospital and this certainly could have caused her tachycardia. She is not on any beta-blockade. I considered whether or not to stress dose the patient however she reported that she only recently been started on prednisone so I did not feel she required stress dose of steroids. We discussed return to the emergency department for any worsening shortness of breath any chest pain or any episodes of syncope. Chronic conditions affecting the care of the patient: COPD CHF History obtained from an outside historian: N/A External record review: [facility] [place] EMR Diagnostic interpretations performed by me: Per my independent interpretation chest x-ray shows: No acute cardiopulmonary process Per my independent interpretation EKG shows: Sinus tachycardia with anterior ST segment depressions V2 V3 ]Medications: Diphenhydramine prednisone dexamethasone Social determinants of health affecting disposition: N/A Management discussed with: N/A Treatment/interventions considered: N/A Response to therapies provided: Improved symptoms in the ED HPI This is a 61-year-old female history of COPD and CHF arrives emergency department via EMS in the setting of difficulty breathing for the past several days. Patient says that she did not have hives for the past month. She has been using her inhaler [id number] and this has not improved her symptoms. She is a daily tobacco user. She has not been vomiting. She denies any chest pain dysuria frequency. She was last on steroids she reports 3 weeks ago. She has not had any fevers. She has had some increased production of purulent sputum. Exam General: Chronically-appearing in no acute distress speaking in complete sentences. Head: Normocephalic, atraumatic. Eye:[Pupils equal, round reactive to light.] Extraocular eye movements intact. No conjunctival injection. No scleral icterus. Ear, nose, mouth, throat: Grossly normal inspection. Normal voice, handling secretions normally. Neck: Trachea midline. Cardiovascular: Well-perfused distal extremities. Rapid regular. Respiratory: Nonlabored respiration. Mildly prolonged and expiratory phase. Gastrointestinal: Nondistended abdomen. Soft nontender Musculoskeletal: No edema. Moving all 4 extremities spontaneously. Skin: Normal for age and race, grossly normal temperature and turgor. No acute rash. Neurologic: Alert and appropriate, no apparent acute deficits. Psychiatric: Mood and manner are appropriate. Grooming and personal hygiene are appropriate. Related Data Home Medications ?Medication ?Instructions ?Recorded ?Confirmed multivitamin (Multiple Vitamins 1 tab PO DAILY #30 tabs 08/13/20 11/25/23 tablet) albuterol sulfate 90 mcg/actuation 2 puff inhalation Q6H PRN 01/18/22 11/25/23 aerosol inhaler shortness of breath or wheezing #8.5 grams thiamine HCl (vitamin B1) 250 mg 250 mg PO DAILY 04/19/23 11/25/23 tablet tiotropium 2.5 mcg-olodaterol 2.5 2 puff inhalation Q24H #4 grams 05/04/23 11/25/23 mcg/actuation mist for inhalation (Stiolto Respimat) ipratropium 0.5 mg-albuterol 3 mg 3 ml inhalation Q4H PRN wheezing 05/10/23 11/25/23 (2.5 mg base)/3 mL nebulization #540 mL soln gabapentin 300 mg capsule 300 mg PO TID 06/06/23 11/25/23 omeprazole 40 mg capsule,delayed 40 mg PO DAILY 06/12/23 11/25/23 release loperamide 1 mg/7.5 mL oral liquid 2 mg (15 mL) PO Q1-4H PRN #120 mL 08/02/23 11/25/23 (Imodium A-D) magnesium oxide 400 mg (241.3 mg 400 mg PO DAILY #90 tabs 10/06/23 11/25/23 magnesium) tablet potassium chloride 20 mEq 40 meq (2 x 20 mEq) PO DAILY #90 10/06/23 11/25/23 tablet,extended tabs release(part/cryst) (Klor-Con M) nicotine (polacrilex) 2 mg buccal 2 mg SUC Q2H PRN PRN #120 ea 10/11/23 11/25/23 lozenge prednisone 20 mg tablet 40 mg (2 x 20 mg) PO DAILY #6 tabs 10/11/23 11/25/23 doxycycline hyclate 100 mg capsule 100 mg PO BID #10 caps 11/25/23 hydrocortisone 2.5 % topical cream 1 applic topical 11/25/23 prednisone 20 mg tablet 20 mg PO DAILY #4 tabs 11/25/23 Previous Rx's ?Medication ?Instructions ?Recorded multivitamin (Multiple Vitamins 1 tab PO DAILY #30 tabs 08/13/20 tablet) albuterol sulfate 90 mcg/actuation 2 puff inhalation Q6H PRN 01/18/22 aerosol inhaler shortness of breath or wheezing #8.5 grams tiotropium 2.5 mcg-olodaterol 2.5 2 puff inhalation Q24H #4 grams 05/04/23 mcg/actuation mist for inhalation (Stiolto Respimat) ipratropium 0.5 mg-albuterol 3 mg 3 ml inhalation Q4H PRN wheezing 05/10/23 (2.5 mg base)/3 mL nebulization #540 mL soln loperamide 1 mg/7.5 mL oral liquid 2 mg (15 mL) PO Q1-4H PRN #120 mL 08/02/23 (Imodium A-D) magnesium oxide 400 mg (241.3 mg 400 mg PO DAILY #90 tabs 10/06/23 magnesium) tablet potassium chloride 20 mEq 40 meq (2 x 20 mEq) PO DAILY #90 10/06/23 tablet,extended tabs release(part/cryst) (Klor-Con M) nicotine (polacrilex) 2 mg buccal 2 mg SUC Q2H PRN PRN #120 ea 10/11/23 lozenge prednisone 20 mg tablet 40 mg (2 x 20 mg) PO DAILY #6 tabs 10/11/23 doxycycline hyclate 100 mg capsule 100 mg PO BID #10 caps 11/25/23 prednisone 20 mg tablet 20 mg PO DAILY #4 tabs 11/25/23 Allergies Allergy/AdvReac Type Severity Reaction Status Date / Time bacitracin (From Neosporin Allergy Mild localized Verified 10/26/23 20:50 ([id number])) redness neomycin (From Neosporin Allergy Mild localized Verified 10/26/23 20:50 ([id number])) redness polymyxin B (From Neosporin Allergy Mild localized Verified 10/26/23 20:50 ([id number])) redness General RAHEEM: 3 Medical Decision Making Quality:SDOH Health Related Social Needs: Health related social needs transpo insecurity PFSH All Active Problems (Updated 11/25/23 @ 19:48 by Nikunj Sanchez MD) COPD with acute exacerbation (Acute) COPD (chronic obstructive pulmonary disease) (Chronic) Hypomagnesemia (Acute) Shortness of breath (Acute) Itching (Acute) Tobacco dependence syndrome (Acute) Edema, peripheral (Acute) Cellulitis of left leg (Acute) Ambulatory dysfunction (Acute) Edema of both lower legs (Acute) Congestive heart failure (Chronic) COPD exacerbation (Acute) Cellulitis (Acute) Severe sepsis (Acute) Prolonged QT interval (Acute) Respiratory failure (Acute) Leg pain (Acute) Sepsis (Acute) Shock (Acute) Hypomagnesemia (Acute) Hypokalemia (Acute) Difficulty walking (Acute) PVD (peripheral vascular disease) (Chronic) Atherosclerosis of aorta (Acute) Acute hypokalemia (Acute) Hypoglycemia (Acute) Alcoholic ketoacidosis (Acute) Laceration of scalp (Acute) Fall (Acute) Chronic left hip pain (Acute) Contusion of hip (Acute) Closed intertrochanteric fracture of left hip (Acute) s/p IMN fixation (1/17/24) Smoker (Acute) Closed fracture of left hip (Acute) Fall (Acute) Anxiety (Chronic) Cavitary lesion of lung (Acute) H/O ETOH abuse (Acute) Tobacco use disorder (Acute 01/28/14) Pleural effusion (Acute) Hypomagnesemia (Acute) Fluid overload (Acute) Chest pain due to GERD (Acute) Chest wall muscle strain (Acute) Hypokalemia (Acute) Emphysema lung (Acute) Nicotine dependence, cigarettes, uncomplicated (Acute) Atherosclerosis (Acute) Gastric wall thickening (Acute) Stenosis of right internal carotid artery (Acute) Mass of upper lobe of right lung (Acute) Alcohol abuse (Chronic) Dehydration (Acute) Diarrhea (Acute) Hypomagnesemia (Chronic) B12 deficiency (Acute) Ascites (Acute) Chronic liver disease (Chronic) Weight loss, non-intentional (Acute) Macrocytic anemia (Acute) Early satiety (Acute) Folate deficiency (Acute) Hypomagnesemia (Acute) Hypokalemia (Acute) Leg pain (Acute) Cellulitis (Acute) Bilateral leg ulcer (Acute) Medical History Advanced care planning/counseling discussion Palliative care patient Pulmonary nodule COPD (chronic obstructive pulmonary disease) Hypomagnesemia Cachexia Hepatic fibrosis Ulcer of lower extremity Hair loss Vitamin D deficiency Chest pain Gastroesophageal reflux disease Hx pulmonary embolism COPD (chronic obstructive pulmonary disease) Chronic vomiting Malnutrition Frequent falls Bilateral leg pain Pancreatitis Diastolic dysfunction Folate deficiency anemia Ascites Bilateral lower extremity edema Unintentional weight loss Alcohol abuse Tobacco abuse Surgical History punch biopsy, skin of ankle, right lateral (11/24/16) negative for malignancy, sparse inflammation and reactive blood vessels foot surgery (~2000) Ligation of fallopian tube (~1999) ENT/Nasal surgery (~2007) Family History Father Lung disease Cancer Lung Social History Smoking/Tobacco Use Status: Current every day Tobacco Type: cigarettes Tobacco: How many years used: 45 Quit status: considering quitting Second Hand Exposure: Yes Smoking risk assessment performed?: Yes Alcohol Intake: current Alcohol Intake frequency: 3 or more drinks per day Alcohol type: wine and hard liquor Counseling given: Yes Counseling provided: provider counseling Drug use: Never Substance use type: marijuana Housing: apartment Current gender identity: female Do you feel safe at home: Yes Do you feel safe in your relationship?: Yes Additional Social history: Lives alone in studio in [facility], 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 Grew up in [facility], sisters in area. History History Para 0 Hx # Term Pregnancies Multiple births Hx # Pregnancies Ectopic pregnancies AB induced Hx Number of Living Children AB spontaneous POCUS Exam (ED) Limited Cardiac Exam DATE OF EXAM: 11/25/23 TIME OF EXAM: 16:22 PROVIDER THAT PERFORMED THE STUDY: Nikunj Sanchez IS THIS A REPEAT EXAM DURING THIS ENCOUNTER: no REASON FOR EXAM: Chest pain VISUALIZED STRUCTURES: Four Chambers, Left ventricle and LVOT VIEW OBTAINED: Apical 4-Chamber, Parasternal long-axis and Subxiphoid PERTINENT FINDINGS/IMPRESSION: RV dilation and Other; No pericardial effusion DIFFERENTIAL DIAGNOSES: Aortic outflow track less than 4 cm, moderate squeeze, no significant pericardial effusion. Patient could not tolerate apical four-chamber Exam complete
--- NOTE | 2023-11-25 15:45 | RT.EKG_ITS ---
APPROVED REPORT Exam: Resting ECG Reason for Exam: Chest pain Patient Location: E HR:132 bpm ECG Measurements Heart Rate 132 AXIS NC 119 P 79 QRSd 107 QRS 97 QT 356 T 21 QTc 529 Conclusion Sinus tachycardia with irregular rate...V-rate 100-185, variation>10% Anteroseptal infarct, age indeterminate...Q >35mS, T neg, V1-V2 Prolonged QT interval...QTc >500mS Posterior ECG showing no sign of posterior STEMI.
--- NOTE | 2023-11-25 16:15 | DI.RAD_ITS ---
Exam(s) XR PORTABLE CHEST AP EXAM: XR PORTABLE CHEST AP CLINICAL HISTORY: chest pain. TECHNIQUE: 2D digital imaging was performed. COMPARISON: CR XR PORTABLE CHEST AP from 10/24/2023 CR XR CHEST 2V PA LATERAL from 11/11/2023 FINDINGS: Single AP portable view. Heart size is upper normal. The mediastinum is not widened. Increased markings again noted left lower lobe retrocardiac region. These are possibly vascular but cannot exclude small trait. Slight blunting of left costophrenic angle noted which probably represen ts a small amount left pleural fluid. Right lung is clear. No obvious pleural effusion on the right side. Vascular calcifications again noted in the axillary and subclavian arteries. IMPRESSION: Possible mild infiltrate left lower lobe and small amount of left pleural fluid. Right lung is clear. DATA REPOSITORY: RADIATION DOSE DELIVERED:
[2023-11-25 16:43] LABS: BE (Venous) 0 mmol/L (-2-3); HCO3 (Venous) 23 mmol/L (23-28); O2 Sat (Venous) 54 %; TCO2 (Venous) 20 mmol/L (24-29); pCO2 (Venous) 27 mmHg (41-51); pH (Venous) 7.53 (7.31-7.41); pO2 (Venous) 30 mmHg
[2023-11-25 16:45] LABS: Abs Immature Grans 0.02 10^3/uL (0.0-0.06); Absolute Basophil Count 0.02 10^3/uL (0.0-0.2); Absolute Eosinophil Count 0.01 10^3/uL (0.0-0.7); Absolute Lymphocyte Count 1.21 10^3/uL (1.2-3.4); Absolute Neutrophil Count 4.41 10^3/uL (1.2-6.7); Basophils % 0.3 %; Eosinophils % 0.2 %; HCT 39.7 % (36.0-46.0); HGB 13.5 g/dL (11.2-15.7); Immature Grans % 0.3 %; Lymphocytes % 19.9 %; MCV 103 fL (80-95); MPV 10.7 fL (8.0-11.0); Monocytes % 6.6 %; Neutrophils % 72.7 %; Platelet Count 311 10^3/uL (130-400); RBC 3.86 10^6/uL (3.93-5.22); RDW 14.3 % (11.7-14.6); RDW-SD 54.2 fL; WBC 6.07 10^3/uL (4.4-10.8)
[2023-11-25] MEDS: Aspirin 81 MG CHEW 324 MG CH (16:48)
[2023-11-25] MEDS: diphenhydrAMINE 25 MG CAP PO (16:51)
[2023-11-25 17:05] LABS: Anion Gap 14.4 mmol/L (3-11); BUN 4 mg/dL (7-18); CO2 24.6 mmol/L (21.0-32.0); CREATININE 0.7 mg/dL (0.55-1.02); Chloride 94 mmol/L (98-107); Estimated GFR 97.72 (mL/min/1.73m2); Glucose 82 mg/dL (74-106); Sodium 133 mmol/L (136-145); Troponin I < 50 ng/L (< or =60)
[2023-11-25 17:07] LABS: Potassium 2.5 mmol/L (3.5-5.1)
[2023-11-25 17:10] LABS: Magnesium 1.1 mg/dL (1.8-2.4); NT-proBNP 3921 pg/mL (<300)
[2023-11-25 17:14] LABS: D-Dimer 4040 ng/mlFEU (<500)
[2023-11-25] MEDS: Omnipaque 350 MG/ML 100 ML BTL IJ (18:35)
[2023-11-25] MEDS: Normal Saline - Diluent 50 ML VIAL IJ (18:36)
--- NOTE | 2023-11-25 18:40 | DI.CT_ITS ---
Exam(s) CT CHEST PE CTA EXAM: CT CHEST PE CTA CLINICAL HISTORY: Shortness of breath. TECHNIQUE: Imaging Protocol: CT angiography of the chest was performed using pulmonary embolus tom col. Multi planar reconstructions were performed. CONTRAST MATERIAL: Intravenous: Omnipaque 350 Contrast volume: 100 cc COMPARISON: CR XR CHEST 2V PA LATERAL from 09/07/[address] CHEST PE ABD PELVIS W from 09/13/2023 CR,XR XR PORTABLE CHEST AP from 10/04/2023 CR XR CHEST 2V PA LATERAL from 11/11/2023 FINDINGS: CHEST: PULMONARY ARTERIES: There are no intraluminal filling defects to suggest acute pulmonary emboli. LUNGS: COPD findings. There is partially calcified scar-like infiltrate in the posterior aspect of t he right upper lobe. This appears unchanged from CT scan of 09/13/2023 also some scar-like infiltrat e in the posterior basal segment left lower, this corresponding to what is seen on chest x-ray today. This was not evident on the CT scan of 09/13/2023. There are no pleural effusions. No obvious bro nchiectasis.. There are no pleural effusions. MEDIASTINUM: There is no hilar nor mediastinal adenopathy. Visualized thyroid unremarkable. CARDIAC: Heart size is upper normal. There is no pericardial effusion.Caliber of the thoracic aorta is within normal limits. There is no significant shift of the interventricular septum. PARTIALLY VISUALIZED UPPERMOST ABDOMEN: No adrenal masses. No splenomegaly. Calcifications noted in what appears to be the pancreatic head. OSSEOUS: No significant osseous lesions.Degenerative changes noted in the mid sternal joint. Nonacut e appearing compression fracture of L1 noted.. IMPRESSION: 1. No evidence of acute pulmonary emboli. No evidence of pulmonary infarction.No pleural effusions. Advanced COPD emphysematous changes 2. Scar-like infiltrate noted in posterior aspect of the right upper lobe, unchanged and not associat ed with overlying rib destruction nor pleural effusion. There is also some scar-like infiltrate in t he left lower lobe posterior basal segment which was not previously evident on CT scan of 09/13/2023. Report called by myself to ER physician 11/25/2023 at 7:05 p.m. RADIATION DOSE DELIVERED: Total DLP DATA REPOSITORY: All CT scans at this facility are submitted to the National Radiology Data Registry (NRDR) Dose Index Registry (DIR) with the [employer] ([employer]). RADIATION OPTIMIZATION: All CT scans at this facility use at least one of these dose optimization te chniques: automated exposure control; mA and/or kV adjustment per patient size (includes targeted exa ms where dose is matched to clinical indication); or iterative reconstruction.
[2023-11-25] MEDS: CEFEPIME 2 GM in Normal Saline 100 ML IVPB (19:19)
[2023-11-25] MEDS: Calcium Gluconate 4.65 MEQ/10 ML VIAL 4.65 MG IVP (19:20)
[2023-11-25 19:47] LABS: Troponin I < 50 ng/L (< or =60)
[2023-11-25] MEDS: Normal Saline 50 ML (19:51)
[2023-11-25] MEDS: POTASSIUM CHLORIDE 20 MEQ/100 ML BAG 100 MEQ (19:51)
[2023-11-25] MEDS: Nicotine 4 MG LOZG SUC (19:58)
[2023-11-25 20:34] LABS: Anion Gap 6.5 mmol/L (3-11); BUN 3 mg/dL (7-18); CO2 31.5 mmol/L (21.0-32.0); CREATININE 0.8 mg/dL (0.55-1.02); Calcium 7.5 mg/dL (8.5-10.1); Chloride 95 mmol/L (98-107); Estimated GFR 83.26 (mL/min/1.73m2); Glucose 71 mg/dL (74-106); Magnesium 1.3 mg/dL (1.8-2.4); Sodium 133 mmol/L (136-145)
[2023-11-25 20:36] LABS: Potassium 2.7 mmol/L (3.5-5.1)
== END 2023-11-25 21:21 | disposition home or self-care (01) ==
PROVIDERS: Emergency Provider Emergency Medicine; PCP Nurse Practitioner Family
DX: J44.1 Chronic obstructive pulmonary disease with (acute) exacerbation (principal); R06.02 Shortness of breath
CPT/HCPCS: 71275; 80048; 82805; 93005; 93308; 96365; 96375; 99285; 71045; 83735; 83880; 84484; 85025; 85379; 93010; 99283; J0612; J0692; J3480; J3490; J7512

== ENCOUNTER 2023-12-01 19:19 | Inpatient (IN) | payer BC, SELFPAY ==
[2023-12-01] VITALS (40 sets, daily range): BP systolic 74–132; BP diastolic 47–102; PULSE 82–128; RESP 12–30; TEMP 37; O2SAT 82–100
--- NOTE | 2023-12-01 19:00 | RT.EKG_ITS ---
APPROVED REPORT Exam: Resting ECG Reason for Exam: SOB Patient Location: E HR:105 bpm ECG Measurements Heart Rate 105 AXIS NE 143 P 84 QRSd 116 QRS 77 QT 401 T 37 QTc 530 Conclusion Sinus tachycardia...rate> 99 Incomplete right bundle branch block...QRSd >112, terminal axis(90,270) Low voltage, extremity leads...all extremity leads <0.5mV Prolonged QT interval...QTc >500mS
--- NOTE | 2023-12-01 19:30 | DI.RAD_ITS ---
Exam(s) XR PORTABLE CHEST AP EXAM: XR PORTABLE CHEST AP CLINICAL HISTORY: SOB, weakness TECHNIQUE: 2D digital imaging was performed. COMPARISON: CR XR CHEST 2V PA LATERAL from 11/11/[address] CHEST PE CTA from 11/25/2023 CR XR PORTABLE CHEST AP from 11/25/2023 FINDINGS: LUNGS: Clear. Stable blunting at the left costophrenic angle. HEART: Normal size. Mitral annular calcification. AORTA: Normal diameter. Prominent vascular calcifications. BONES: Scoliosis and degenerative changes. Soft tissues: Unremarkable. IMPRESSION: Blunting of the left costophrenic angle could indicate tiny effusion versus pleural scarring. DATA REPOSITORY: RADIATION DOSE DELIVERED:
--- NOTE | 2023-12-01 19:30 | RT.EKG_ITS ---
APPROVED REPORT Exam: Resting ECG Reason for Exam: SOB, weakness Patient Location: E HR:105 bpm ECG Measurements Heart Rate 105 AXIS MD 150 P 71 QRSd 111 QRS 119 QT 394 T 28 QTc 521 Conclusion Sinus tachycardia...rate> 99 Probable left atrial enlargement...P >50mS, <-0.10mV V1 Borderline ST depression, anterior leads...ST <-0.07mV, V2-V4 Prolonged QT interval...QTc >500mS
[2023-12-01 19:53] LABS: Abs Immature Grans 0.01 10^3/uL (0.0-0.06); Absolute Basophil Count 0.01 10^3/uL (0.0-0.2); Absolute Neutrophil Count 3.77 10^3/uL (1.2-6.7); Basophils % 0.2 %; HCT 36.4 % (36.0-46.0); HGB 12.5 g/dL (11.2-15.7); Immature Grans % 0.2 %; Lymphocytes % 11.4 %; MCH 34.3 pg (27.0-33.0); MCHC 34.3 % (32.0-36.0); MCV 100 fL (80-95); MPV 11.1 fL (8.0-11.0); Monocytes % 2.3 %; Neutrophils % 85.9 %; Platelet Count 221 10^3/uL (130-400); RBC 3.64 10^6/uL (3.93-5.22); RDW 14.3 % (11.7-14.6); RDW-SD 52.1 fL; WBC 4.39 10^3/uL (4.4-10.8)
[2023-12-01 20:06] LABS: Lipase 16 U/L (16-77)
[2023-12-01 20:16] LABS: ALT 34 U/L (14-59); AST 126 U/L (15-37); Albumin 2.6 g/dL (3.4-5.0); Alkaline Phosphatase 207 U/L (46-116); Anion Gap 13.3 mmol/L (3-11); BUN 6 mg/dL (7-18); Bilirubin, Total 1.74 mg/dL (0.2-1.0); CO2 25.7 mmol/L (21.0-32.0); CREATININE 0.9 mg/dL (0.55-1.02); Calcium 7.9 mg/dL (8.5-10.1); Chloride 92 mmol/L (98-107); Estimated GFR 72.28 (mL/min/1.73m2); Glucose 122 mg/dL (74-106); Magnesium 1.1 mg/dL (1.8-2.4); NT-proBNP 5360 pg/mL (<300); Potassium 3.5 mmol/L (3.5-5.1); Sodium 131 mmol/L (136-145); Total Protein 6.1 g/dL (6.4-8.2); Troponin I < 50 ng/L (< or =60)
--- NOTE | 2023-12-01 20:16 | W.ED.GENAD ---
Discharge Plan Discharge Details Chief Complaint: SOB Primary Care Provider: MARIANO KEARNEY ED Provider: Bette Mistry Home Meds and New Rx's Prescriptions: No Action ipratropium-albuterol 0.5 mg-3 mg(2.5 mg base)/3 mL solution for nebulization 3 ml inhalation Q4H PRN (Reason: wheezing) Qty: 540 8RF albuterol sulfate 90 mcg/actuation HFA aerosol inhaler 2 puff inhalation Q6H PRN (Reason: shortness of breath or wheezing) Qty: 8.5 12RF thiamine HCl (vitamin B1) 250 mg tablet 250 mg PO DAILY gabapentin 300 mg capsule 300 mg PO TID Stiolto Respimat 2.5-2.5 mcg/actuation mist 2 puff inhalation Q24H Qty: 4 12RF loperamide [Imodium A-D] 1 mg/7.5 mL liquid 2 mg PO Q1-4H PRNQty: 120 0RF Rx Instructions: administer after each loose stool until symptoms controlled; do not exceed 16 mg per 24 hrs multivitamin [Multiple Vitamins] Tablet 1 tab PO DAILY Qty: 30 0RF omeprazole 40 mg capsule,delayed release(DR/EC) 40 mg PO DAILY potassium chloride [Klor-Con M20] 20 mEq Tablet,Er Particles/Crystals 40 meq PO DAILY Qty: 90 0RF magnesium oxide 400 mg (241.3 mg magnesium) Tablet 400 mg PO DAILY Qty: 90 0RF prednisone 20 mg Tablet 40 mg PO DAILY Qty: 6 0RF nicotine (polacrilex) 2 mg Lozenge 2 mg SUC Q2H PRN PRNQty: 120 3RF hydrocortisone 2.5 % cream 1 applic TOPICAL DAILY Patient Comments: APPLY TAKE OAA TWO TIMES A DAY NEEDED FOR 14 DAYS prednisone 20 mg tablet 20 mg PO DAILY Qty: 4 0RF HPI General Date/Time Provider Initiated Documentation: 12/01/23 19:34. HPI Narrative: Fannie is a 63-year-old female with history of COPD, electrolyte abnormalities such as hypokalemia and hypomagnesemia, EtOH abuse who presents to the emergency department today for evaluation of generalized weakness and shortness of breath. She reports this has been ongoing for 1 month, says she has been evaluated multiple times and not offered anything for this. She says that she has been laying in bed for the last couple of days and has not eaten anything or drinking much during this time.. She denies fever/chills, congestion, cough, abdominal pain other than due to hunger, nausea/vomiting, change in bowel or bladder function. She does states she has had black/tarry stools today. She denies alcohol use. She does report that a TV fell on her bilateral legs 4 days ago, she did not seek care after this happened. Physical exam remarkable for cachectic patient. She is low energy, very weak, laying in bed. Abdomen is soft, nondistended, nontender to palpation with normal active bowel sounds. Rectal exam faintly positive, a stool sample was later to be obtained and was frankly bloody, positive for blood. Normal heart sounds. Easy work of breathing, lung sounds clear bilaterally, diminished lung sounds throughout. Moist mucous membranes. Moving all extremities equally, extremities are warm to touch. Lacerations noted to bilateral anterior shins, approximately 8 to 10 cm in length. Flap laceration also noted to left lateral lindo. No active bleeding, pus drainage, or surrounding erythema/tenderness. DDx includes but is not limited to: Cardiac arrhythmia, dehydration, electrolyte imbalance, PE, viral illness, occult infection such as urosepsis or pneumonia, alcohol intoxication, malnourishment I independently interpreted the following tests: EKG notable for sinus tachycardia, heart rate 105, prolonged QTc, unchanged from previous. CBC, coags, procalcitonin, alcohol, troponin reassuring. CMP noted for hyponatremia with sodium 131, hypochloremia with chloride 92, hypomagnesemia with magnesium 1.1. BNP is elevated today at 5360. UA reassuring, no findings consistent with UTI. CTA chest and abdomen reassuring, mild wall thickening consistent with possible gastritis noted, no acute findings or pulmonary embolism. As Fannie has had some emesis with flecks of blood in the urine and hemoccult positive brown diarrhea. The emergency department, PPI given as well as Zofran. Gentle IV hydration provided. Magnesium replenished. As it is outside window for laceration repair (4 days), wounds on legs were cleansed with ChloraPrep, bacitracin and nonstick dressings applied to allow for healing by secondary intention. Discussed case with Dr. Bennett, [facility] hospitalist physician; pt to be admitted for generalized weakness and hypomagnesemia. Related Data Home Medications ?Medication ?Instructions ?Recorded ?Confirmed multivitamin (Multiple Vitamins 1 tab PO DAILY #30 tabs 08/13/20 12/01/23 tablet) albuterol sulfate 90 mcg/actuation 2 puff inhalation Q6H PRN 01/18/22 12/01/23 aerosol inhaler shortness of breath or wheezing #8.5 grams thiamine HCl (vitamin B1) 250 mg 250 mg PO DAILY 04/19/23 12/01/23 tablet tiotropium 2.5 mcg-olodaterol 2.5 2 puff inhalation Q24H #4 grams 05/04/23 12/01/23 mcg/actuation mist for inhalation (Stiolto Respimat) ipratropium 0.5 mg-albuterol 3 mg 3 ml inhalation Q4H PRN wheezing 05/10/23 12/01/23 (2.5 mg base)/3 mL nebulization #540 mL soln gabapentin 300 mg capsule 300 mg PO TID 06/06/23 12/01/23 omeprazole 40 mg capsule,delayed 40 mg PO DAILY 06/12/23 12/01/23 release loperamide 1 mg/7.5 mL oral liquid 2 mg (15 mL) PO Q1-4H PRN #120 mL 08/02/23 12/01/23 (Imodium A-D) magnesium oxide 400 mg (241.3 mg 400 mg PO DAILY #90 tabs 10/06/23 12/01/23 magnesium) tablet potassium chloride 20 mEq 40 meq (2 x 20 mEq) PO DAILY #90 10/06/23 12/01/23 tablet,extended tabs release(part/cryst) (Klor-Con M) nicotine (polacrilex) 2 mg buccal 2 mg SUC Q2H PRN PRN #120 ea 10/11/23 12/01/23 lozenge prednisone 20 mg tablet 40 mg (2 x 20 mg) PO DAILY #6 tabs 10/11/23 12/01/23 hydrocortisone 2.5 % topical cream 1 applic topical DAILY 11/25/23 12/01/23 prednisone 20 mg tablet 20 mg PO DAILY #4 tabs 11/25/23 12/01/23 Previous Rx's ?Medication ?Instructions ?Recorded multivitamin (Multiple Vitamins 1 tab PO DAILY #30 tabs 08/13/20 tablet) albuterol sulfate 90 mcg/actuation 2 puff inhalation Q6H PRN 01/18/22 aerosol inhaler shortness of breath or wheezing #8.5 grams tiotropium 2.5 mcg-olodaterol 2.5 2 puff inhalation Q24H #4 grams 05/04/23 mcg/actuation mist for inhalation (Stiolto Respimat) ipratropium 0.5 mg-albuterol 3 mg 3 ml inhalation Q4H PRN wheezing 05/10/23 (2.5 mg base)/3 mL nebulization #540 mL soln loperamide 1 mg/7.5 mL oral liquid 2 mg (15 mL) PO Q1-4H PRN #120 mL 08/02/23 (Imodium A-D) magnesium oxide 400 mg (241.3 mg 400 mg PO DAILY #90 tabs 10/06/23 magnesium) tablet potassium chloride 20 mEq 40 meq (2 x 20 mEq) PO DAILY #90 10/06/23 tablet,extended tabs release(part/cryst) (Klor-Con M) nicotine (polacrilex) 2 mg buccal 2 mg SUC Q2H PRN PRN #120 ea 10/11/23 lozenge prednisone 20 mg tablet 40 mg (2 x 20 mg) PO DAILY #6 tabs 10/11/23 prednisone 20 mg tablet 20 mg PO DAILY #4 tabs 11/25/23 Allergies Allergy/AdvReac Type Severity Reaction Status Date / Time bacitracin (From Neosporin Allergy Mild localized Verified 10/26/23 20:50 ([id number])) redness neomycin (From Neosporin Allergy Mild localized Verified 10/26/23 20:50 ([id number])) redness polymyxin B (From Neosporin Allergy Mild localized Verified 10/26/23 20:50 ([id number])) redness General Stated Complaint: SOB RAHEEM: 3 Review of Systems Narrative: see HPI Exam Const General: cooperative, no acute distress, disheveled and frail appearing Nutritional Appearance: cachectic HENWV Head: normal to inspection General nose exam: external nose normal Face and sinus: dry mucous membranes Resp Effort & Inspection: prolonged expiratory phase Auscultation: clear to auscultation bilaterally and diminished lung sounds Cardio Rate: tachycardic Rhythm: regular rhythm GI Inspection: normal to inspection and non-distended Palpation: soft, not rigid and nontender Auscultation: normal bowel sounds Rectal Exam - female: visual inspection normal and heme positive stool Extrem General: normal to inspection, full ROM and no calf tenderness Right lower extremity: lower leg (approx 5 cm flap lac to lateral lindo, approx 9 cm liner lac to lindo) Left lower extremity: lower leg (10 cm linear vertical laceration to anterior lindo) Course Vital Signs Vital signs: Vital Signs Temperature 37.0 C 12/01/23 19:05 Respiratory Rate 20 12/01/23 19:05 Blood Pressure 99/62 L 12/01/23 19:05 Temperature 37.0 C 12/01/23 19:05 Pulse 105 H 12/01/23 19:11 Pulse 105 H 12/01/23 19:50 Respiratory Rate 30 H 12/01/23 19:50 Respiratory Effort Normal 12/01/23 19:47 Respiratory Depth Normal 12/01/23 19:47 Respiratory Pattern Normal 12/01/23 19:47 Blood Pressure 99/62 L 12/01/23 19:05 Blood Pressure Position Sitting 12/01/23 19:05 Pulse Oximetry 100 12/01/23 19:48 Lab/Test Results Lab/Test Results: Laboratory Tests Range/Units 12/01/23 19:45 WBC (4.4-10.8) 10^3/uL 4.39 L RBC (3.93-5.22) 10^6/uL 3.64 L Hgb (11.2-15.7) g/dL 12.5 Hct (36.0-46.0) % 36.4 MCV (80-95) fL 100 H MCH (27.0-33.0) pg 34.3 H MCHC (32.0-36.0) % 34.3 RDW (11.7-14.6) % 14.3 Plt Count (130-400) 10^3/uL 221 MPV (8.0-11.0) fL 11.1 H Immature Gran % % 0.2 Neutrophils % % 85.9 Lymphocytes % % 11.4 Monocytes % % 2.3 Eosinophils % % 0.0 Basophils % % 0.2 Nucleated RBC % (0.0-0.3) % 0.0 Absolute Neutrophils (1.2-6.7) 10^3/uL 3.77 Absolute Lymphocytes (1.2-3.4) 10^3/uL 0.50 L Absolute Monocytes (0.1-0.8) 10^3/uL 0.10 Absolute Eosinophils (0.0-0.7) 10^3/uL 0.00 Absolute Basophils (0.0-0.2) 10^3/uL 0.01 Lipase (16-77) U/L 16 Medical Decision Making Quality:SDOH Health Related Social Needs: Health related social needs transpo insecurity PFSH All Active Problems (Updated 11/26/23 @ 00:00 by CODY ZHU) COPD with acute exacerbation (Acute) COPD (chronic obstructive pulmonary disease) (Chronic) Hypomagnesemia (Acute) Shortness of breath (Acute) Tobacco dependence syndrome (Acute) Edema, peripheral (Acute) Cellulitis of left leg (Acute) Ambulatory dysfunction (Acute) Edema of both lower legs (Acute) Congestive heart failure (Chronic) COPD exacerbation (Acute) Cellulitis (Acute) Severe sepsis (Acute) Prolonged QT interval (Acute) Respiratory failure (Acute) Leg pain (Acute) Sepsis (Acute) Shock (Acute) Hypomagnesemia (Acute) Hypokalemia (Acute) Difficulty walking (Acute) PVD (peripheral vascular disease) (Chronic) Atherosclerosis of aorta (Acute) Acute hypokalemia (Acute) Hypoglycemia (Acute) Alcoholic ketoacidosis (Acute) Laceration of scalp (Acute) Fall (Acute) Chronic left hip pain (Acute) Contusion of hip (Acute) Closed intertrochanteric fracture of left hip (Acute) s/p IMN fixation (05/18/23) Smoker (Acute) Closed fracture of left hip (Acute) Fall (Acute) Anxiety (Chronic) Cavitary lesion of lung (Acute) H/O ETOH abuse (Acute) Tobacco use disorder (Acute 01/28/14) Pleural effusion (Acute) Hypomagnesemia (Acute) Fluid overload (Acute) Chest pain due to GERD (Acute) Chest wall muscle strain (Acute) Hypokalemia (Acute) Emphysema lung (Acute) Nicotine dependence, cigarettes, uncomplicated (Acute) Atherosclerosis (Acute) Gastric wall thickening (Acute) Stenosis of right internal carotid artery (Acute) Mass of upper lobe of right lung (Acute) Alcohol abuse (Chronic) Dehydration (Acute) Diarrhea (Acute) Hypomagnesemia (Chronic) B12 deficiency (Acute) Ascites (Acute) Chronic liver disease (Chronic) Weight loss, non-intentional (Acute) Macrocytic anemia (Acute) Early satiety (Acute) Folate deficiency (Acute) Hypomagnesemia (Acute) Hypokalemia (Acute) Leg pain (Acute) Cellulitis (Acute) Bilateral leg ulcer (Acute) Medical History Advanced care planning/counseling discussion Palliative care patient Pulmonary nodule COPD (chronic obstructive pulmonary disease) Hypomagnesemia Cachexia Hepatic fibrosis Ulcer of lower extremity Hair loss Vitamin D deficiency Chest pain Gastroesophageal reflux disease Hx pulmonary embolism COPD (chronic obstructive pulmonary disease) Chronic vomiting Malnutrition Frequent falls Bilateral leg pain Pancreatitis Diastolic dysfunction Folate deficiency anemia Ascites Bilateral lower extremity edema Unintentional weight loss Alcohol abuse Tobacco abuse Surgical History punch biopsy, skin of ankle, right lateral (11/24/16) negative for malignancy, sparse inflammation and reactive blood vessels foot surgery (~2000) Ligation of fallopian tube (~1999) ENT/Nasal surgery (~2007) Family History Father Lung disease Cancer Lung Social History Smoking/Tobacco Use Status: Current every day Tobacco Type: cigarettes Tobacco: How many years used: 45 Quit status: considering quitting Second Hand Exposure: Yes Smoking risk assessment performed?: Yes Alcohol Intake: current Alcohol Intake frequency: 3 or more drinks per day Alcohol type: wine and hard liquor Counseling given: Yes Counseling provided: provider counseling Drug use: Never Substance use type: marijuana Housing: apartment Current gender identity: female Do you feel safe at home: Yes Do you feel safe in your relationship?: Yes Additional Social history: Lives alone in studio in [facility], 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 Grew up in [facility], sisters in area. History History Para 0 Hx # Term Pregnancies Multiple births Hx # Pregnancies Ectopic pregnancies AB induced Hx Number of Living Children AB spontaneous
[2023-12-01 20:24] LABS: Procalcitonin < 0.1 ng/mL
[2023-12-01] MEDS: Normal Saline Flush 10 ML SYR IVP (20:24)
[2023-12-01] MEDS: Albuterol/Ipratropium 3 ML UPD VIAL UPD (20:24)
[2023-12-01 20:28] LABS: ETHANOL BLOOD < 3.0 mg/dL (<10)
[2023-12-01 20:47] LABS: D-Dimer 2286 ng/mlFEU (<500)
--- NOTE | 2023-12-01 21:31 | DI.CT_ITS ---
Exam(s) CT CHEST PE ABD PELVIS W EXAM: CT CHEST PE ABD PELVIS W CLINICAL HISTORY: SOB, elevated d-dimer. TECHNIQUE: Imaging Protocol: Axial CT angiography was performed with multi-slice acquisition and mu lti-planar and/or 3D reconstructions. CONTRAST MATERIAL: Intravenous: Omnipaque 350 Contrast volume:100 ml COMPARISON: CT CHEST FOR PE, ABD PELVIS W from 11/08/[address] CHEST PE CTA from 11/25/2023 FINDINGS: CHEST: Pulmonary Arteries: No evidence of filling defects to suggest pulmonary emboli. Tracheobronchial tree: No bronchiectasis or mucus plugging. Mediastinum and Gaye: No dominant adenopathy or fluid collection. Pulmonary parenchyma: No consolidation. Moderate to severe emphysematous changes greater in the uppe r lobes. Stable air scarring right upper lobe. Pleura: No effusion. No pneumothorax. Heart: The heart is notdilated. Moderate coronary artery calcifications are seen. Mitral annular c alcification. Aorta: Thoracic aorta non-dilated. Severe atherosclerotic changes. Bones: Old mid sternal fracture. Tubes, Catheters, and Lines: None. Soft tissues: Unremarkable. ABDOMEN and PELVIS: Liver: Normal size. Normal density. No suspicious measurable mass. Portal, Superior Mesenteric, and Splenic Veins: Unremarkable. Gallbladder and Biliary Tract: No radiodense calculus. No biliary dilatation. Pancreas: Atrophic. Normal density, no abnormal calcifications or inflammatory process. Spleen: Normal. Adrenals: No masses seen. Kidneys: Normal size, contour and axis. No radiodense stones. No obstructive uropathy. No masses seen . Vasculature: Abdominal aorta non-dilated. Severe atherosclerotic changes causing severe narrowing at the mid to distal aorta. No significant iliac or common femoral stenosis. Severe calcification at the origin of both renal arteries, causing severe stenosis. Heavy calcification at the celiac axis a nd SMA, causing severe stenosis. Bowel: Stomach empty, not well evaluated. No evidence of small bowel ischemia or inflammatory change s.. Diverticulosis. No obstruction or bowel wall thickening. Appendix is unremarkable. The colon is mostly free of stool. Peritoneal Cavity: No ascites, collection or mesenteric inflammatory response. Lymph Nodes: Within normal limits. Soft Tissues: Unremarkable. Bladder: Douglas catheter decompresses urinary bladder. Reproductive Organs: Unremarkable as visualized. Bones: Stable L1 compression fracture. Hardware and left hip. IMPRESSION: 1. No evidence of pulmonary embolism. Moderate to severe emphysematous changes. 2. No acute abdominal or pelvic process. Severe atherosclerotic changes of the abdominal aorta and b ranch vessels. Severe stenosis at the origins of the celiac axis, SMA and both renal arteries. Aliya re stenosis mid to distal abdominal aorta. RADIATION DOSE DELIVERED: Total DLP DATA REPOSITORY: All CT scans at this facility are submitted to the National Radiology Data Registry (NRDR) Dose Index Registry (DIR) with the [employer] (ACR). RADIATION OPTIMIZATION: All CT scans at this facility use at least one of these dose optimization te chniques: automated exposure control; mA and/or kV adjustment per patient size (includes targeted exa ms where dose is matched to clinical indication); or iterative reconstruction.
[2023-12-01] MEDS: Ondansetron 4 MG/2 ML VIAL IVP (21:46)
[2023-12-01] MEDS: Pantoprazole 40 MG VIAL IVP (21:46)
[2023-12-01] MEDS: diphenhydrAMINE 50 MG/ML VIAL (21:46)
[2023-12-01] MEDS: MAGNESIUM SULFATE 2 GM/50 ML BAG IVINF (21:46)
[2023-12-01] MEDS: Normal Saline 500 ML IV (21:46)
--- NOTE | 2023-12-01 21:46 | DI.VRAD_ITS ---
PROCEDURE INFORMATION: Exam: XR Chest Exam date and time: 12/01/2023 8:32 PM Age: 63 years old Clinical indication: Shortness of breath TECHNIQUE: Imaging protocol: Radiologic exam of the chest. Views: 1 view. Other technique: Portable exam. COMPARISON: CT CHEST PE CTA 11/25/2023 6:22 PM FINDINGS: Lungs: Unremarkable. No consolidation. Pleural spaces: Possible trace left pleural effusion. Heart/Mediastinum: Unremarkable. No cardiomegaly. Vasculature: Atherosclerotic change noted in the vasculature. Bones/joints: Unremarkable. IMPRESSION: Possible trace left pleural effusion. Dictated and Authenticated by: Tea Acevedo MD. Ordering:RONALD Amos MD
[2023-12-01 22:06] LABS: BE (Venous) 1 mmol/L (-2-3); HCO3 (Venous) 24 mmol/L (23-28); O2 Sat (Venous) 70 %; TCO2 (Venous) 22 mmol/L (24-29); pCO2 (Venous) 27 mmHg (41-51); pH (Venous) 7.55 (7.31-7.41); pO2 (Venous) 36 mmHg
[2023-12-01 22:09] LABS: Lactate 4.3 mmol/L (0.6-1.4)
[2023-12-01 22:26] LABS: Troponin I < 50 ng/L (< or =60)
[2023-12-01] MEDS: Normal Saline - Diluent 50 ML VIAL IJ (22:29)
[2023-12-01] MEDS: Omnipaque 350 MG/ML 100 ML BTL IJ (22:30)
[2023-12-01 22:41] LABS: Bilirubin Small (Negative); Blood Negative (Negative); Clarity Clear (Clear); Glucose Negative (Negative); Ketones Trace mg/dL (Negative); Leukocyte Esterase Negative (Negative); Nitrite Negative (Negative); pH 8.5 (5-8)
[2023-12-01 22:48] LABS: Epithelial Cells Few HPF (Negative); RBC Negative HPF (0-2); WBC 0-2 HPF (0-5)
[2023-12-01 22:49] LABS: Bacteria Few HPF (Negative); C & S Indicated? No; Casts Negative LPF (Negative); Crystals Negative HPF (Negative); Mucus Trace (Negative)
--- NOTE | 2023-12-01 23:11 | DI.VRAD_ITS ---
PROCEDURE INFORMATION: Exam: CTA Chest With Contrast CTA Abdomen With Contrast Exam date and time: 12/01/2023 10:38 PM Age: 63 years old Clinical indication: Other: SOB, elevated d-dimer; Other: Hemoptysis, melena TECHNIQUE: Imaging protocol: Computed tomographic angiography of the chest with contrast. Exam focused on the arteries. Computed tomographic angiography of the abdomen with contrast. Exam focused on the arteries. 3D rendering (Not supervised by radiologist): MIP and/or 3D reconstructed images were created by the technologist. Contrast material: 350; Contrast volume: 100 ml; Contrast route: INTRAVENOUS (IV); COMPARISON: CT CHEST PE CTA 11/25/2023 6:22 PM FINDINGS: VASCULATURE: Pulmonary arteries: Severe atherosclerotic change present in the vasculature. Aorta: Severe atherosclerotic change noted in the aorta. Celiac trunk and mesenteric arteries: Severe atherosclerotic change involves the hepatic arteries. Renal arteries: There is severe atherosclerotic change involving the renal arteries bilaterally. CHEST: Lungs: Severe COPD. There is a slightly spiculated lesion with calcification in the right upper lobe 1.1 cm, unchanged from recent exam. Pleural spaces: Unremarkable. No pneumothorax. No pleural effusion. Heart: Unremarkable. No cardiomegaly. No pericardial effusion. ABDOMEN AND PELVIS: Liver: No mass. Gallbladder and biliary ducts: Unremarkable. No calcified stones. No ductal dilation. Pancreas: Unremarkable. No mass. No ductal dilation. Spleen: Unremarkable. No splenomegaly. Adrenal glands: Unremarkable. No mass. Kidneys and ureters: Right renal cyst. Renal perfusion symmetric. Stomach and bowel: There may be some mild wall thickening involving the gastric cardia. Diverticulosis without evidence for acute diverticulitis. Intraperitoneal space: Unremarkable. No free air. No significant fluid collection. Urinary bladder: Douglas catheter drains the bladder. Lymph nodes: Unremarkable. No enlarged lymph nodes. Bones/joints: L1 compression deformity is unchanged compared to prior exam, nonacute. Left dynamic hip screw with femoral greater trochanter fracture. Soft tissues: Unremarkable. IMPRESSION: Possible gastritis. Dictated and Authenticated by: Tea Acevedo MD. Ordering:RONALD Amos MD
[2023-12-01 23:42] LABS: Lactate 2.9 mmol/L (0.6-1.4)
[2023-12-01 23:44] LABS: INR 1.3 (0.9-1.1); PTT Activated 25.6 sec (23.6-32.8); Prothrombin Time 12.7 sec (9.1-11.1)
[2023-12-01 23:47] LABS: Lab Add On Test DONE
[2023-12-02] VITALS (32 sets, daily range): BP systolic 62–139; BP diastolic 34–105; PULSE 58–107; RESP 9–28; TEMP 35.2–36.9; O2SAT 89–100; BMI 17.2
[2023-12-02 00:21] LABS: COVID-19 PCR Negative (Negative); Influenza A PCR Negative (Negative); Influenza B PCR Negative (Negative); RSV PCR Negative (Negative); Source NASOPHARYNX
--- NOTE | 2023-12-02 01:36 | W.PM.HP.N ---
Date of service: 12/02/23 Time of Service: 01:37 Assessment and Plan Assessment and plan (1) Weakness: Start date: 12/02/23 Status: Acute Assessment and plan: This is a 63-year-old lady who lives alone and is severely debilitated by or lifestyle habits including drinking alcohol, smoking tobacco and poor nutrition. She chronically is ill and has frequent visits to the ED with similar issues such as weakness and falling. She did not come to the ED with recent lacerations over her legs which are clean and does not look infected. She cannot stand or take care of self and requires admission for gentle rehydration and further evaluation for abdominal symptoms with fluid nausea and vomiting with possible gastritis on CT imaging. She also has exam consistent with possible gallbladder issues and will have an ultrasound for gallbladder CT exam unrevealing. She is not requiring IV antibiotics at this time will be watched closely as we treat her hypomagnesemia with repletion and further evaluate her abdominal symptoms. She may be a candidate for cervical consultation and EGD to assist the patient having hematemesis admitted heme positive brown stools. Lovenox is not indicated because of possibility of active bleeding, patient will have compression stockings over her lower extremities which are sore from her recent lacerations. Nursing care for wound care and wound care team to evaluate patient if needed. PT and OT will evaluate patient for safety with assisted ambulation with her frequent falls. She will be evaluated by case management for possible placement as a level level to care at local facility patient previously been at [facility]. She is a full code. (2) Gastritis: Start date: 12/02/23 Status: Acute Assessment and plan: With witnessed hematemesis and heme positive brown stool, DVT prophylaxis will be withheld except for compression stocking. Patient will be on Protonix 40 mg daily. If persistent symptoms consider EGD with surgical consultation which can be done as an outpatient. Patient is not anemic but will be trended. No alcohol intake and continue PPI would be best. Qualifiers: Chronicity: acute Gastritis bleeding: without bleeding Gastritis type: alcoholic Qualified Code(s): K29.20 - Alcoholic gastritis without bleeding (3) Right upper quadrant abdominal pain: Start date: 12/02/23 Status: Acute Assessment and plan: Patient does have elevated 6 months test and ultrasound of gallbladder will be obtained. He still has active gallbladder and some of the symptoms may be consistent with gallbladder colic and gastritis. She is on IV Protonix for treatment for gastritis. Diet will be advanced as tolerated. (4) Hypomagnesemia: Start date: 12/02/23 Status: Acute Assessment and plan: Replete and follow-up lab. Continue oral supplements. Patient should stop alcohol use. (5) COPD (chronic obstructive pulmonary disease): Status: Chronic Assessment and plan: Aggressive nebulizer treatments and outpatient medical therapy as before. Patient does not require steroids at this is not having active expiratory wheeze or respiratory failure. Qualifiers: COPD type: chronic bronchitis Chronic bronchitis type: mixed simple and mucopurulent Qualified Code(s): J41.8 - Mixed simple and mucopurulent chronic bronchitis (6) Alcohol abuse: Status: Chronic Assessment and plan: Patient needs to stop regular alcohol altogether with her electrolyte abnormalities and liver functions abnormal with history of alcoholic cirrhosis. She needs to advance regular diet for better nutrition. (7) Hyponatremia: Status: Chronic Assessment and plan: Secondary to chronic alcohol use and poor nutrition, patient will be advanced diet as tolerated and she should avoid alcohol use in the future. Unlikely and poor prognosis for change. If she is admitted to level 2 facility this is more likely. No fluid restrictions at this time patient has been being slightly dehydrated clinically though her labs are stable. (8) Hypocalcemia: Status: Chronic Assessment and plan: Secondary to chronic alcohol use and poor nutrition, patient will be advanced diet as tolerated and she should avoid alcohol use in the future. Unlikely and poor prognosis for change. If she is admitted to level 2 facility this is more likely. Continue oral supplementation and advance to regular diet. (9) Tobacco dependence syndrome: Status: Chronic Assessment and plan: Patient advised to stop smoking tobacco long-term. Poor prognosis for change. If she is in a assisted facility, this may be more likely. History of Present Illness History of Present Illness Chief Complaint: Generalized weakness with inability to take care of self at home, dyspnea Narrative: This is a 63-year-old female patient lives at home alone with no family support and frequently visits the ED with generalized complaints mostly associated with poor nutrition, chronic illness with electrolyte abnormalities secondary to alcohol use and recent difficult because of use smoking tobacco. She appears chronically ill and presents to the ED this visit plan with shortness of breath and inability to support self with walking. She does have without services. He does continue to smoke less than a pack a day of cigarettes daily and drinks alcohol intermittently but continuously. She has not had a drink of alcohol for 3 days. She states that she does not go through alcohol withdrawal. She was found to be hypomagnesemic in the ED with low calcium and low sodium which are chronic and less severe. She was repleted with magnesium IV which will be completed at 4 g total. She also has not been eating and drinking well with gastritis and will be placed on IV Protonix gentle IV hydration. She is not on diuretics and her hyponatremia does not appear to need treatment at this time with patient having clear mentation and generalized weakness more from other chronic illness and dehydration with poor intake recently secondary to nausea, vomiting with abdominal discomfort without diarrhea. Liver functions are also elevated with no history of alcoholic cirrhosis but her PT/INR are elevated as well. Because of her abdominal discomfort even though her CT scan did not show abnormal gallbladder, I will ultrasound her abdomen to evaluate the gallbladder and the morning. She will need case management to evaluate her need for placement to at least level 2 facility which patient is requesting as well. The patient has been at [facility] in the past. She is a full code. Review of Systems Narrative: 13 point review of systems otherwise unrevealing or stable. Patient has increased somatic complaints chronically with exaggeration of complaints. PFSH All Active Problems Discharge planning issues (Acute) Contraindication to deep vein thrombosis prophylaxis (Acute) Diverticulosis (Acute) Celiac artery stenosis (Acute) Atherosclerosis of abdominal aorta (Acute) Coronary artery calcification seen on CAT scan (Acute) Acute blood loss anemia (Acute) GI bleeding (Chronic) Right upper quadrant abdominal pain (Acute) Hyponatremia (Chronic) Gastritis (Acute) Lacerations of multiple sites of leg (Acute) Weakness (Acute) COPD with acute exacerbation (Acute) COPD (chronic obstructive pulmonary disease) (Chronic) Hypomagnesemia (Acute) Shortness of breath (Acute) Tobacco dependence syndrome (Chronic) Edema, peripheral (Acute) Cellulitis of left leg (Acute) Ambulatory dysfunction (Acute) Edema of both lower legs (Acute) Congestive heart failure (Chronic) COPD exacerbation (Acute) Cellulitis (Acute) Severe sepsis (Acute) Prolonged QT interval (Acute) Respiratory failure (Acute) Leg pain (Acute) Sepsis (Acute) Shock (Acute) Hypomagnesemia (Acute) Hypokalemia (Acute) Difficulty walking (Acute) PVD (peripheral vascular disease) (Chronic) Atherosclerosis of aorta (Acute) Acute hypokalemia (Acute) Hypoglycemia (Acute) Alcoholic ketoacidosis (Acute) Laceration of scalp (Acute) Fall (Acute) Chronic left hip pain (Acute) Contusion of hip (Acute) Closed intertrochanteric fracture of left hip (Acute) s/p IMN fixation (05/18/23) Smoker (Acute) Closed fracture of left hip (Acute) Fall (Acute) Anxiety (Chronic) Cavitary lesion of lung (Acute) H/O ETOH abuse (Acute) Tobacco use disorder (Acute 01/28/14) Pleural effusion (Acute) Hypomagnesemia (Acute) Fluid overload (Acute) Chest pain due to GERD (Acute) Chest wall muscle strain (Acute) Hypokalemia (Acute) Emphysema lung (Acute) Nicotine dependence, cigarettes, uncomplicated (Acute) Atherosclerosis (Acute) Gastric wall thickening (Acute) Stenosis of right internal carotid artery (Acute) Mass of upper lobe of right lung (Acute) Alcohol abuse (Chronic) Dehydration (Acute) Diarrhea (Acute) Hypomagnesemia (Chronic) B12 deficiency (Acute) Hypocalcemia (Chronic) Ascites (Acute) Chronic liver disease (Chronic) Weight loss, non-intentional (Acute) Macrocytic anemia (Acute) Early satiety (Acute) Folate deficiency (Acute) Hypomagnesemia (Acute) Hypokalemia (Acute) Leg pain (Acute) Cellulitis (Acute) Bilateral leg ulcer (Acute) Medical History Advanced care planning/counseling discussion Palliative care patient Pneumonia Pulmonary nodule COPD (chronic obstructive pulmonary disease) Hypomagnesemia Cachexia Hepatic fibrosis Ulcer of lower extremity Hair loss Vitamin D deficiency Chest pain Gastroesophageal reflux disease Hx pulmonary embolism COPD (chronic obstructive pulmonary disease) Chronic vomiting Malnutrition Frequent falls Bilateral leg pain Pancreatitis Diastolic dysfunction Folate deficiency anemia Ascites Bilateral lower extremity edema Unintentional weight loss Alcohol abuse Tobacco abuse Surgical History punch biopsy, skin of ankle, right lateral (11/24/16) negative for malignancy, sparse inflammation and reactive blood vessels foot surgery (~2000) Ligation of fallopian tube (~1999) ENT/Nasal surgery (~2007) Family History Father Lung disease Cancer Lung Social History Smoking/Tobacco Use Status: Current every day Tobacco Type: cigarettes Tobacco: How many years used: 45 Quit status: considering quitting Second Hand Exposure: Yes Smoking risk assessment performed?: Yes Alcohol Intake: current Alcohol Intake frequency: 3 or more drinks per day Alcohol type: wine and hard liquor Counseling given: Yes Counseling provided: provider counseling Drug use: Never Substance use type: marijuana Housing: apartment Current gender identity: female Do you feel safe at home: Yes Do you feel safe in your relationship?: Yes Additional Social history: Lives alone in studio in [place], 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 Grew up in [place] [facility], sisters in area. History History Para 0 Hx # Term Pregnancies Multiple births Hx # Pregnancies Ectopic pregnancies AB induced Hx Number of Living Children AB spontaneous Meds Allergies and Home Medications Allergies Allergy/AdvReac Type Severity Reaction Status Date / Time bacitracin (From Neosporin Allergy Mild localized Verified 10/26/23 20:50 ([id number])) redness neomycin (From Neosporin Allergy Mild localized Verified 10/26/23 20:50 ([id number])) redness polymyxin B (From Neosporin Allergy Mild localized Verified 10/26/23 20:50 ([id number])) redness Home Medications ?Medication ?Instructions ?Recorded ?Confirmed ?Type multivitamin (Multiple Vitamins 1 tab PO DAILY #30 tabs 08/13/20 12/01/23 Rx tablet) albuterol sulfate 90 mcg/actuation 2 puff inhalation Q6H PRN 01/18/22 12/01/23 Rx aerosol inhaler shortness of breath or wheezing #8.5 grams thiamine HCl (vitamin B1) 250 mg 250 mg PO DAILY 04/19/23 12/01/23 History tablet tiotropium 2.5 mcg-olodaterol 2.5 2 puff inhalation Q24H #4 grams 05/04/23 12/01/23 Rx mcg/actuation mist for inhalation (Stiolto Respimat) ipratropium 0.5 mg-albuterol 3 mg 3 ml inhalation Q4H PRN wheezing 05/10/23 12/01/23 Rx (2.5 mg base)/3 mL nebulization #540 mL soln gabapentin 300 mg capsule 300 mg PO TID 06/06/23 12/01/23 History omeprazole 40 mg capsule,delayed 40 mg PO DAILY 06/12/23 12/01/23 History release loperamide 1 mg/7.5 mL oral liquid 2 mg (15 mL) PO Q1-4H PRN #120 mL 08/02/23 12/01/23 Rx (Imodium A-D) magnesium oxide 400 mg (241.3 mg 400 mg PO DAILY #90 tabs 10/06/23 12/01/23 Rx magnesium) tablet potassium chloride 20 mEq 40 meq (2 x 20 mEq) PO DAILY #90 10/06/23 12/01/23 Rx tablet,extended tabs release(part/cryst) (Klor-Con M) nicotine (polacrilex) 2 mg buccal 2 mg SUC Q2H PRN PRN #120 ea 10/11/23 12/01/23 Rx lozenge hydrocortisone 2.5 % topical cream 1 applic topical DAILY 11/25/23 12/01/23 History prednisone 20 mg tablet 20 mg PO DAILY #4 tabs 11/25/23 12/01/23 Rx Exam Narrative Exam Narrative: General: Patient appears much older than stated age, overdone mascara over face which is finding and patient appearing chronically ill, cachectic with poor eye contact and slowed monotonous tone to speech. She wanders in conversation. She is in no acute distress but chronically complaining of variable somatic symptoms which are inconsistent with chief complaint. She is alert and oriented x 3. HEENT: Normocephalic, coarsened facial features with make-up over done as stated, eyes with pupils equal and reactive to light symmetrically, extraocular movement intact and sclera anicteric. Oropharynx with moist [place] orientation. Neck: Supple without JVD. Back: Kyphotic without CVA tenderness. Lungs: Poor inspiratory effort with poor aeration but no focalizing rales or rhonchi. No expiratory wheeze. Bronchovesicular breath sounds diffusely with no increased expiratory phase. No intercostal retractions with inspiration. Breast: Exam deferred. Heart: Regular rate and rhythm with no appreciable murmur or gallop. Abdomen: Normal contour, soft with slight guarding over right upper quadrant with deep palpation and inspiration and verbal Ling sign which is not reproducible. No palpable hepatosplenomegaly. Bowel sounds positive all quadrants. No guarding or rebound. Genitalia/rectal: Exam deferred. Extremities: Without clubbing, cyanosis or grossly pitting edema. Fair capillary refill. Skin: Pale, warm and dry with rough texture over sun exposed areas with actinic changes. Normal turgor. No bruising noted. Deep, old lacerations over anterior tibialis areas bilaterally with dry wrapping and patient tender to palpation when trying to examine with wrappings left intact. No drainage (patient states that he dropped her flatscreen TV on her legs over the last several days). Neuro: Cranial nerves II to XII grossly intact, no focalizing motor deficits and no tremor. Psych: Anxious affect with little variation, depressed mood with increased matization. No abnormal thought processes. Patient avoids answering questions correctly. Remote and recent memory appear to be grossly intact. Results Imaging Imaging Studies: Exam: CTA Chest With Contrast CTA Abdomen With Contrast Exam date and time: 12/01/2023 10:38 PM Age: 63 years old Clinical indication: Other: SOB, elevated d-dimer; Other: Hemoptysis, melena COMPARISON: CT CHEST PE CTA 11/25/2023 6:22 PM FINDINGS: VASCULATURE: Pulmonary arteries: Severe atherosclerotic change present in the vasculature. Aorta: Severe atherosclerotic change noted in the aorta. Celiac trunk and mesenteric arteries: Severe atherosclerotic change involves the hepatic arteries. Renal arteries: There is severe atherosclerotic change involving the renal arteries bilaterally. CHEST: Lungs: Severe COPD. There is a slightly spiculated lesion with calcification in the right upper lobe 1.1 cm, unchanged from recent exam. Pleural spaces: Unremarkable. No pneumothorax. No pleural effusion. Heart: Unremarkable. No cardiomegaly. No pericardial effusion. ABDOMEN AND PELVIS: Liver: No mass. Gallbladder and biliary ducts: Unremarkable. No calcified stones. No ductal dilation. Pancreas: Unremarkable. No mass. No ductal dilation. Spleen: Unremarkable. No splenomegaly. Adrenal glands: Unremarkable. No mass. Kidneys and ureters: Right renal cyst. Renal perfusion symmetric. Stomach and bowel: There may be some mild wall thickening involving the gastric cardia. Diverticulosis without evidence for acute diverticulitis. Intraperitoneal space: Unremarkable. No free air. No significant fluid collection. Urinary bladder: Douglas catheter drains the bladder. Lymph nodes: Unremarkable. No enlarged lymph nodes. Bones/joints: L1 compression deformity is unchanged compared to prior exam, nonacute. Left dynamic hip screw with femoral greater trochanter fracture. Soft tissues: Unremarkable. IMPRESSION: Possible gastritis. Labs 12/02/23 14:10 12/02/23 14:10 Labs: Laboratory Results - last 24 hr 12/01/23 12/01/23 12/01/23 19:45 22:00 22:32 WBC 4.39 L RBC 3.64 L Hgb 12.5 Hct 36.4 MCV 100 H MCH 34.3 H MCHC 34.3 RDW 14.3 Plt Count 221 MPV 11.1 H Immature Gran % 0.2 Neutrophils % 85.9 Lymphocytes % 11.4 Monocytes % 2.3 Eosinophils % 0.0 Basophils % 0.2 Nucleated RBC % 0.0 Absolute Neutrophils 3.77 Absolute Lymphocytes 0.50 L Absolute Monocytes 0.10 Absolute Eosinophils 0.00 Absolute Basophils 0.01 PT INR APTT D-Dimer 2286 H VBG pH 7.55 H VBG pCO2 27 L VBG pO2 36 VBG HCO3 24 VBG Total CO2 22 L VBG O2 Saturation 70 VBG Base Excess 1 VBG Lactate 4.3 H* Sodium 131 L Potassium 3.5 Chloride 92 L Carbon Dioxide 25.7 Anion Gap 13.3 H BUN 6 L Creatinine 0.9 Est GFR (CKD-EPI 2020) 72.28 Glucose 122 H Calcium 7.9 L Magnesium 1.1 L Total Bilirubin 1.74 H AST 126 H ALT 34 Alkaline Phosphatase 207 H Troponin I < 50 < 50 NT-Pro-B Natriuret Pep 5360 H Total Protein 6.1 L Albumin 2.6 L Lipase 16 Procalcitonin < 0.1 Urine Color Yellow Urine Clarity Clear Urine pH 8.5 H Ur Specific [place] 1.020 Urine Protein 30 H Urine Ketones Trace H Urine Blood Negative Urine Nitrite Negative Urine Bilirubin Small H Urine Urobilinogen 4.0 H Ur Leukocyte Esterase Negative Urine RBC Negative Urine WBC 0-2 Ur Epithelial Cells Few Urine Crystals Negative Urine Bacteria Few Urine Casts Negative Urine Mucus Trace Ur Culture Indicated? No Urine Glucose Negative Ethyl Alcohol < 3.0 COVID-19 Source SARS-CoV-2 (PCR) Influenza Type A (PCR) Influenza Type B (PCR) RSV (PCR) Add-On Test Request DONE 12/01/23 12/01/23 12/01/23 23:20 23:25 23:41 WBC RBC Hgb Hct MCV MCH MCHC RDW Plt Count MPV Immature Gran % Neutrophils % Lymphocytes % Monocytes % Eosinophils % Basophils % Nucleated RBC % Absolute Neutrophils Absolute Lymphocytes Absolute Monocytes Absolute Eosinophils Absolute Basophils PT 12.7 H INR 1.3 H APTT 25.6 D-Dimer VBG pH VBG pCO2 VBG pO2 VBG HCO3 VBG Total CO2 VBG O2 Saturation VBG Base Excess VBG Lactate 2.9 H* Sodium Potassium Chloride Carbon Dioxide Anion Gap BUN Creatinine Est GFR (CKD-EPI 2020) Glucose Calcium Magnesium Total Bilirubin AST ALT Alkaline Phosphatase Troponin I NT-Pro-B Natriuret Pep Total Protein Albumin Lipase Procalcitonin Urine Color Urine Clarity Urine pH Ur Specific [place] Urine Protein Urine Ketones Urine Blood Urine Nitrite Urine Bilirubin Urine Urobilinogen Ur Leukocyte Esterase Urine RBC Urine WBC Ur Epithelial Cells Urine Crystals Urine Bacteria Urine Casts Urine Mucus Ur Culture Indicated? Urine Glucose Ethyl Alcohol COVID-19 Source NASOPHARYNX SARS-CoV-2 (PCR) Negative Influenza Type A (PCR) Negative Influenza Type B (PCR) Negative RSV (PCR) Negative Add-On Test Request Last Vital Signs Temp 37.0 C 12/01/23 19:05 Pulse 105 H 12/01/23 19:11 Resp 13 12/01/23 20:20 BP 99/62 L 12/01/23 19:05 Pulse Ox 100 12/01/23 20:20 Time Spent Time spent with Patient: >75 minutes Time was spent: preparing to see the patient(eg.review tests), obtaining and/or reviewing separately otained hiistory, ordering medications,tests, procedures, indepentently interpreting results, counseling the patient and care coordination
--- NOTE | 2023-12-02 01:47 | W.PC.ACHO ---
Registration Status: Primary Language: Preferred Language: ED Information & Data Chief Complaint SOB 12/01/23 20:18 Triage Note BIBA, Ongoing SOB, weakness. 12/01/23 19:05 States that she is unable to get up to do anything for herself. Leg wounds are wrapped, states that dressings on legs have been on since tuesday Medical / Surgical History (Last Reviewed 10/24/23 @ 16:04 by Philly Cisneros MD) Advanced care planning/counseling discussion Palliative care patient Pneumonia Pulmonary nodule COPD (chronic obstructive pulmonary disease) Hypomagnesemia Cachexia Hepatic fibrosis Ulcer of lower extremity Hair loss Vitamin D deficiency Chest pain Gastroesophageal reflux disease Hx pulmonary embolism COPD (chronic obstructive pulmonary disease) Chronic vomiting Malnutrition Frequent falls Bilateral leg pain Pancreatitis Diastolic dysfunction Folate deficiency anemia Ascites Bilateral lower extremity edema Unintentional weight loss Alcohol abuse Tobacco abuse (Last Reviewed 10/24/23 @ 16:04 by Philly Cisneros MD) punch biopsy, skin of ankle, right lateral (11/24/16) foot surgery (~2000) Ligation of fallopian tube (~1999) ENT/Nasal surgery (~2007) Most Recent Vital Signs Temperature 37.0 C 12/01/23 19:05 Pulse 105 H 12/01/23 19:11 Pulse 105 H 12/01/23 20:20 Respiratory Rate 13 12/01/23 20:20 Respiratory Effort Normal 12/01/23 19:47 Respiratory Depth Normal 12/01/23 19:47 Respiratory Pattern Normal 12/01/23 19:47 Blood Pressure 99/62 L 12/01/23 19:05 Blood Pressure Position Sitting 12/01/23 19:05 Pulse Oximetry 100 12/01/23 20:20 Allergies bacitracin (From Neosporin ([id number])) Allergy (Mild, Verified 10/26/23 20:50) localized redness neomycin (From Neosporin ([id number])) Allergy (Mild, Verified 10/26/23 20:50) localized redness polymyxin B (From Neosporin ([id number])) Allergy (Mild, Verified 10/26/23 20:50) localized redness Precautions Isolation Standard precaution 12/01/23 19:10 Active Medications Generic Name Dose Route Start Last Admin Trade Name Freq PRN Reason Stop Dose Admin Iohexol 100 ml 12/01/23 22:30 12/01/23 22:30 Omnipaque 350 Mg/Ml 100 Ml Btl IJ 12/31/23 23:59 100 ml DIRECTED SIVA Administration Sodium Chloride 0 ml 12/01/23 20:00 12/01/23 20:24 Normal Saline Flush 10 Ml Syr IVP 10 ml BID SIVA Administration Sodium Chloride 50 ml 12/01/23 22:30 12/01/23 22:29 Normal Saline - Diluent 50 Ml Vial IJ 50 ml .FOR DI USE SIVA Administration IV IV Catheter Type [Left Forearm Peripheral IV ] IV Catheter Gauge [Left 20 Forearm] Diet Orders Category Date Time Status Regular/Normal [DIET] Nutrition 12/02/23 Breakfast Active Diagnostics 12/02/23 12/01/23 12/01/23 Range/Units 05:35 23:41 23:25 WBC Pending (4.4-10.8) 10^3/uL RBC Pending (3.93-5.22) 10^6/uL Hgb Pending (11.2-15.7) g/dL Hct Pending (36.0-46.0) % MCV Pending (80-95) fL MCH Pending (27.0-33.0) pg MCHC Pending (32.0-36.0) % RDW Pending (11.7-14.6) % Plt Count Pending (130-400) 10^3/uL MPV Pending (8.0-11.0) fL Immature Gran % % Neutrophils % % Lymphocytes % % Monocytes % % Eosinophils % % Basophils % % Nucleated RBC % (0.0-0.3) % Absolute Neutrophils (1.2-6.7) 10^3/uL Absolute Lymphocytes (1.2-3.4) 10^3/uL Absolute Monocytes (0.1-0.8) 10^3/uL Absolute Eosinophils (0.0-0.7) 10^3/uL Absolute Basophils (0.0-0.2) 10^3/uL PT Pending (9.1-11.1) sec INR Pending (0.9-1.1) APTT (23.6-32.8) sec D-Dimer (<500) ng/mlFEU VBG pH (7.31-7.41) VBG pCO2 (41-51) mmHg VBG pO2 mmHg VBG HCO3 (23-28) mmol/L VBG Total CO2 (24-29) mmol/L VBG O2 Saturation % VBG Base Excess (-2-3) mmol/L VBG Lactate 2.9 H* (0.6-1.4) mmol/L Sodium Pending (136-145) mmol/L Potassium Pending (3.5-5.1) mmol/L Chloride Pending (98-107) mmol/L Carbon Dioxide Pending (21.0-32.0) mmol/L Anion Gap Pending (3-11) mmol/L BUN Pending (7-18) mg/dL Creatinine Pending (0.55-1.02) mg/dL Est GFR (CKD-EPI 2020) Pending (mL/min/1.73m2) Glucose Pending (74-106) mg/dL Calcium Pending (8.5-10.1) mg/dL Magnesium Pending (1.8-2.4) mg/dL Total Bilirubin Pending (0.2-1.0) mg/dL AST Pending (15-37) U/L ALT Pending (14-59) U/L Alkaline Phosphatase Pending (46-116) U/L Troponin I (< or =60) ng/L NT-Pro-B Natriuret Pep (<300) pg/mL Total Protein Pending (6.4-8.2) g/dL Albumin Pending (3.4-5.0) g/dL Lipase (16-77) U/L Procalcitonin ng/mL Urine Color (Yellow) Urine Clarity (Clear) Urine pH (5-8) Ur Specific Dufur (1.005-1.025) Urine Protein (Neg-Trace) mg/dL Urine Ketones (Negative) mg/dL Urine Blood (Negative) Urine Nitrite (Negative) Urine Bilirubin (Negative) Urine Urobilinogen (Up to 0.2) mg/dL Ur Leukocyte Esterase (Negative) Urine RBC (0-2) HPF Urine WBC (0-5) HPF Ur Epithelial Cells (Negative) HPF Urine Crystals (Negative) HPF Urine Bacteria (Negative) HPF Urine Casts (Negative) LPF Urine Mucus (Negative) Ur Culture Indicated? Urine Glucose (Negative) mg/dL Ethyl Alcohol (<10) mg/dL COVID-19 Source NASOPHARYNX SARS-CoV-2 (PCR) Negative (Negative) Influenza Type A (PCR) Negative (Negative) Influenza Type B (PCR) Negative (Negative) RSV (PCR) Negative (Negative) Add-On Test Request 12/01/23 12/01/23 12/01/23 Range/Units 23:20 22:32 22:00 WBC (4.4-10.8) 10^3/uL RBC (3.93-5.22) 10^6/uL Hgb (11.2-15.7) g/dL Hct (36.0-46.0) % MCV (80-95) fL MCH (27.0-33.0) pg MCHC (32.0-36.0) % RDW (11.7-14.6) % Plt Count (130-400) 10^3/uL MPV (8.0-11.0) fL Immature Gran % % Neutrophils % % Lymphocytes % % Monocytes % % Eosinophils % % Basophils % % Nucleated RBC % (0.0-0.3) % Absolute Neutrophils (1.2-6.7) 10^3/uL Absolute Lymphocytes (1.2-3.4) 10^3/uL Absolute Monocytes (0.1-0.8) 10^3/uL Absolute Eosinophils (0.0-0.7) 10^3/uL Absolute Basophils (0.0-0.2) 10^3/uL PT 12.7 H (9.1-11.1) sec INR 1.3 H (0.9-1.1) APTT 25.6 (23.6-32.8) sec D-Dimer (<500) ng/mlFEU VBG pH 7.55 H (7.31-7.41) VBG pCO2 27 L (41-51) mmHg VBG pO2 36 mmHg VBG HCO3 24 (23-28) mmol/L VBG Total CO2 22 L (24-29) mmol/L VBG O2 Saturation 70 % VBG Base Excess 1 (-2-3) mmol/L VBG Lactate 4.3 H* (0.6-1.4) mmol/L Sodium (136-145) mmol/L Potassium (3.5-5.1) mmol/L Chloride (98-107) mmol/L Carbon Dioxide (21.0-32.0) mmol/L Anion Gap (3-11) mmol/L BUN (7-18) mg/dL Creatinine (0.55-1.02) mg/dL Est GFR (CKD-EPI 2020) (mL/min/1.73m2) Glucose (74-106) mg/dL Calcium (8.5-10.1) mg/dL Magnesium (1.8-2.4) mg/dL Total Bilirubin (0.2-1.0) mg/dL AST (15-37) U/L ALT (14-59) U/L Alkaline Phosphatase (46-116) U/L Troponin I < 50 (< or =60) ng/L NT-Pro-B Natriuret Pep (<300) pg/mL Total Protein (6.4-8.2) g/dL Albumin (3.4-5.0) g/dL Lipase (16-77) U/L Procalcitonin ng/mL Urine Color Yellow (Yellow) Urine Clarity Clear (Clear) Urine pH 8.5 H (5-8) Ur Specific Dufur 1.020 (1.005-1.025) Urine Protein 30 H (Neg-Trace) mg/dL Urine Ketones Trace H (Negative) mg/dL Urine Blood Negative (Negative) Urine Nitrite Negative (Negative) Urine Bilirubin Small H (Negative) Urine Urobilinogen 4.0 H (Up to 0.2) mg/dL Ur Leukocyte Esterase Negative (Negative) Urine RBC Negative (0-2) HPF Urine WBC 0-2 (0-5) HPF Ur Epithelial Cells Few (Negative) HPF Urine Crystals Negative (Negative) HPF Urine Bacteria Few (Negative) HPF Urine Casts Negative (Negative) LPF Urine Mucus Trace (Negative) Ur Culture Indicated? No Urine Glucose Negative (Negative) mg/dL Ethyl Alcohol (<10) mg/dL COVID-19 Source SARS-CoV-2 (PCR) (Negative) Influenza Type A (PCR) (Negative) Influenza Type B (PCR) (Negative) RSV (PCR) (Negative) Add-On Test Request DONE 12/01/23 Range/Units 19:45 WBC 4.39 L (4.4-10.8) 10^3/uL RBC 3.64 L (3.93-5.22) 10^6/uL Hgb 12.5 (11.2-15.7) g/dL Hct 36.4 (36.0-46.0) % MCV 100 H (80-95) fL MCH 34.3 H (27.0-33.0) pg MCHC 34.3 (32.0-36.0) % RDW 14.3 (11.7-14.6) % Plt Count 221 (130-400) 10^3/uL MPV 11.1 H (8.0-11.0) fL Immature Gran % 0.2 % Neutrophils % 85.9 % Lymphocytes % 11.4 % Monocytes % 2.3 % Eosinophils % 0.0 % Basophils % 0.2 % Nucleated RBC % 0.0 (0.0-0.3) % Absolute Neutrophils 3.77 (1.2-6.7) 10^3/uL Absolute Lymphocytes 0.50 L (1.2-3.4) 10^3/uL Absolute Monocytes 0.10 (0.1-0.8) 10^3/uL Absolute Eosinophils 0.00 (0.0-0.7) 10^3/uL Absolute Basophils 0.01 (0.0-0.2) 10^3/uL PT (9.1-11.1) sec INR (0.9-1.1) APTT (23.6-32.8) sec D-Dimer 2286 H (<500) ng/mlFEU VBG pH (7.31-7.41) VBG pCO2 (41-51) mmHg VBG pO2 mmHg VBG HCO3 (23-28) mmol/L VBG Total CO2 (24-29) mmol/L VBG O2 Saturation % VBG Base Excess (-2-3) mmol/L VBG Lactate (0.6-1.4) mmol/L Sodium 131 L (136-145) mmol/L Potassium 3.5 (3.5-5.1) mmol/L Chloride 92 L (98-107) mmol/L Carbon Dioxide 25.7 (21.0-32.0) mmol/L Anion Gap 13.3 H (3-11) mmol/L BUN 6 L (7-18) mg/dL Creatinine 0.9 (0.55-1.02) mg/dL Est GFR (CKD-EPI 2020) 72.28 (mL/min/1.73m2) Glucose 122 H (74-106) mg/dL Calcium 7.9 L (8.5-10.1) mg/dL Magnesium 1.1 L (1.8-2.4) mg/dL Total Bilirubin 1.74 H (0.2-1.0) mg/dL AST 126 H (15-37) U/L ALT 34 (14-59) U/L Alkaline Phosphatase 207 H (46-116) U/L Troponin I < 50 (< or =60) ng/L NT-Pro-B Natriuret Pep 5360 H (<300) pg/mL Total Protein 6.1 L (6.4-8.2) g/dL Albumin 2.6 L (3.4-5.0) g/dL Lipase 16 (16-77) U/L Procalcitonin < 0.1 ng/mL Urine Color (Yellow) Urine Clarity (Clear) Urine pH (5-8) Ur Specific D[place]ur (1.005-1.025) Urine Protein (Neg-Trace) mg/dL Urine Ketones (Negative) mg/dL Urine Blood (Negative) Urine Nitrite (Negative) Urine Bilirubin (Negative) Urine Urobilinogen (Up to 0.2) mg/dL Ur Leukocyte Esterase (Negative) Urine RBC (0-2) HPF Urine WBC (0-5) HPF Ur Epithelial Cells (Negative) HPF Urine Crystals (Negative) HPF Urine Bacteria (Negative) HPF Urine Casts (Negative) LPF Urine Mucus (Negative) Ur Culture Indicated? Urine Glucose (Negative) mg/dL Ethyl Alcohol < 3.0 (<10) mg/dL COVID-19 Source SARS-CoV-2 (PCR) (Negative) Influenza Type A (PCR) (Negative) Influenza Type B (PCR) (Negative) RSV (PCR) (Negative) Add-On Test Request [id number] Documentation Fingerstick Glucose Start: 12/01/23 21:17 Freq: Status: Active Protocol: Activity Type Activity Date Activity User E-sign Co-sign Detail Recorded Client Recorded Date Recorded By Document 12/01/23 21:16 CODY ZHU(3) [id number] 12/01/23 21:17 CODY DAJAZZ(4) Intake and Output - 24 Hour Total 12/01/23 18:59 thru 12/01/23 23:07 Intake Total 510 Balance 510 Weight 54.431 kg Intake: IV 510 Other: Urine Color Dark Marlene Urine Appearance Clear Comment pT states they are unable to void. Stool Occult Blood Positive Stool Size Large Stool Characteristics Liquid Falls Risk Assessment History of Falls Previous History 12/01/23 19:11 Contributing Factors Unstable,Impairments 12/01/23 19:11 Ambulatory Aids Uses ambulatory device + 12/01/23 19:11 Tubes/Lines None 12/01/23 19:11 Gait Evaluation W/no contributing factors 12/01/23 19:11 Cognition No cognitive impairment 12/01/23 19:11 Fall Total Score 61 12/01/23 19:11 Level of Risk High Risk 12/01/23 19:11 Problems (Last Reviewed 10/24/23 @ 16:04 by Philly Cisneros MD) Lacerations of multiple sites of leg (Acute) Weakness (Acute) Hypomagnesemia (Acute) v v v v v v v v v Sending and/or Receiving Nurses: Please use comment section below to note any information pertinent to the patient hand-off not included above. Information / Comments: Report received from: [id number] Handoff: Stanislav Adam RN. Weakness, difficulty breathing came in today. RN reports pt has chronic pain. Came in with abdominal pain, hemo stool occult positive, and Hematemesis. x2. Bilateral legs cleaned, with chlorahexadine, xeroform, wrapped extremities with gauze. 20g left forearm. 2g magnesium. Zofran and protonix NO blood pressure on right arm. pts bp is always soft. bp trend 90's over 50's. Douglas in place, that is draining patent. BNP: 5360 D-Dimer elevated Negative covosmin [place] in Urine
[2023-12-02] MEDS: Normal Saline Flush 10 ML SYR IVP ×3 (02:41→23:21)
[2023-12-02] MEDS: Normal Saline 1,000 ML 125 ML IV ×3 (02:44→23:57)
[2023-12-02] MEDS: Acetaminophen 325 MG TAB PO ×3 (03:39→20:32)
[2023-12-02] MEDS: Pantoprazole 40 MG VIAL IVP ×2 (03:40→23:20)
[2023-12-02] MEDS: Melatonin 3 MG TAB 9 MG PO ×2 (03:40→20:32)
[2023-12-02] MEDS: MAGNESIUM SULFATE 2 GM/50 ML BAG IVINF (03:40)
[2023-12-02] MEDS: Nicotine 2 MG LOZG SUC ×3 (05:44→23:20)
[2023-12-02 07:00] LABS: HCT 25.9 % (36.0-46.0); MCH 34.5 pg (27.0-33.0); MCHC 33.6 % (32.0-36.0); MCV 103 fL (80-95); MPV 11.8 fL (8.0-11.0); Platelet Count 170 10^3/uL (130-400); RBC 2.52 10^6/uL (3.93-5.22); RDW-SD 55.1 fL; WBC 6.11 10^3/uL (4.4-10.8)
[2023-12-02 07:09] LABS: HGB 8.7 g/dL (11.2-15.7)
[2023-12-02 07:21] LABS: ALT 25 U/L (14-59); AST 75 U/L (15-37); Albumin 1.7 g/dL (3.4-5.0); Alkaline Phosphatase 139 U/L (46-116); Anion Gap 12.8 mmol/L (3-11); BUN 6 mg/dL (7-18); Bilirubin, Total 0.82 mg/dL (0.2-1.0); CO2 21.2 mmol/L (21.0-32.0); CREATININE 0.9 mg/dL (0.55-1.02); Chloride 94 mmol/L (98-107); Estimated GFR 72.28 (mL/min/1.73m2); Glucose 100 mg/dL (74-106); Magnesium 2.5 mg/dL (1.8-2.4); Sodium 128 mmol/L (136-145); Total Protein 4.3 g/dL (6.4-8.2)
--- NOTE | 2023-12-02 08:00 | DI.US_ITS ---
Exam(s) US ABDOMEN LIMITED EXAM: US ABDOMEN LIMITED CLINICAL HISTORY: Right upper quadrant abdominal pain, elevated LFTs TECHNIQUE: Ultrasound abdomen performed using standard protocol. COMPARISON: CT CT CHEST PE ABD PELVIS W from 12/01/2023 FINDINGS: LIVER: Normal size. Mildly increasedechogenicity, consistent with mild hepatic steatosis.. No focal liver lesions are seen.. GALLBLADDER: No evidence of cholelithiasis. No evidence of wall thickening. No pericholecystic fluid identified. KATZ'S SIGN: Negative. BILIARY SYSTEM: No intrahepatic or extrahepatic biliary ductal dilation. RIGHT KIDNEY: Normal size. No evidence of renal calculi. No evidence of hydronephrosis. No suspicious renal mass. No cyst identified. PANCREAS: Normal where visualized. ABDOMINAL AORTA AND IVC: Visualized portions normal caliber. ASCITES: None seen. IMPRESSION: Mild hepatic steatosis. Gallbladder appears normal. No biliary dilatation.. DATA REPOSITORY:
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
--- NOTE | 2023-12-02 09:13 | PGE_ITS ---
Date of Service Date of service: 12/02/23 Time of Service: 09:13 Assessment and Plan Assessment and plan (1) GI bleeding: Status: Chronic Assessment and plan: apparently had hematemasis prior to admission and found to have melena along w/ abnormal CT of her gastric wall suspicious for gastritis vs ulcer, will keep NPO, continue protonix, I have consulted w/ Dr. Damon for EGD to evaluate for PUD Qualifiers: GI bleed type/associated pathology: gastrointestinal hemorrhage with hematemesis Qualified Code(s): K92.0 - Hematemesis (2) Acute blood loss anemia: Status: Acute Assessment and plan: type and screen and if the Hb is confirmed to have truly dropped 3 gm then she should be transfused. she is agreeable to this. she remains a full code. keep NPO for EGD and increase protonix to 40 mg IV Q12H (3) Right upper quadrant abdominal pain: Status: Acute (4) Hyponatremia: Status: Chronic Assessment and plan: Likely secondary to anasarca from her liver disease. Will monitor serial electrolytes. (5) Hypokalemia: Status: Acute Assessment and plan: will replace parenteral and recheck labs this afternoon along w/ her follow up hemogram (6) COPD (chronic obstructive pulmonary disease): Status: Chronic Assessment and plan: Not experiencing any acute exacerbation. At this time we will continue her on her home inhaler along with as needed albuterol. Qualifiers: COPD type: chronic bronchitis Chronic bronchitis type: mixed simple and mucopurulent Qualified Code(s): J41.8 - Mixed simple and mucopurulent chronic bronchitis (7) Hypomagnesemia: Status: Acute Assessment and plan: Repleted continue to monitor (8) Leg pain: Status: Acute Qualifiers: Laterality: bilateral Qualified Code(s): M79.604 - Pain in right leg; M79.605 - Pain in left leg (9) Pulmonary nodule: Assessment and plan: 1.1 cm spiculated mass right upper lobe will need follow-up with pulmonary services for bronchoscopy and biopsy (10) Hepatic fibrosis: (11) Frequent falls: Assessment and plan: Consult physical therapy to evaluate and treat for generalized weakness and deconditioning. Patient will likely need short-term SNF placement. (12) Weakness: Status: Acute (13) Contraindication to deep vein thrombosis prophylaxis: Status: Acute Assessment and plan: Enoxaparin was initially ordered by the admitting provider but was never given as it was canceled due to her GI bleeding. Patient now on SCDs (14) Discharge planning issues: Status: Acute Assessment and plan: Patient remains a full code per my discussion with her. Will continue to have discussions with her given her multiple comorbidities and new finding of a right upper lobe mass. Patient will likely need SNF upon discharge. Will get physical therapy to work with her while she is an inpatient. Subjective Subjective Interval history since last seen: Patient complains of nausea, no vomiting and has diffuse abdominal pains as well as bilateral lindo pain (had TV fall on her legs last Tuesday). She has no appetite and has been having melena. She continues to drink alcohol and smoke despite her cirrhosis. She was found to have heme positive stools, presumed to be an alcoholic gastritis and was begun on iv protonix last night. However her Hb dropped from 12.5 to 8.7 gm overnight. She has not had any overt hematochezia or hematemesis. CT chest and abdomen done last : no varices noted but has gastric cardia wall thickening suggestive of PUD, she has diverticulosis but no diverticulitis. CT chest w/ 1.1 cm spiculated lung mass RUL and COPD. She has diffuse atherosclerosis of her aorta and her mesenteric vessels. I told her that we would keep her NPO and consult Dr. Damon for EGD. She is ok w/ getting transfusion. Exam Narrative Exam Narrative: Fannie looks much older than her 63, she is jaundiced, she is anxious and in pain from her legs Lungs: diminshed breath sounds at both bases, no rhonchi or rale, or wheezing Heart: RRR Abdomen: ascites present, rounded protuberant abdomen, soft, some epigastric tenderness, hepatomegaly Lower Extremities: she has abrasions over both shins which are bandaged. she would not allow me to examine d/t her pain Objective Last Vital Signs Temp 35.2 C L 12/02/23 09:03 Pulse 78 12/02/23 09:03 Resp 16 12/02/23 09:03 BP 117/68 12/02/23 09:03 Pulse Ox 99 12/02/23 09:03 Laboratory Results - last 24 hr 12/01/23 12/01/23 12/01/23 19:45 22:00 22:32 WBC 4.39 L RBC 3.64 L Hgb 12.5 Hct 36.4 MCV 100 H MCH 34.3 H MCHC 34.3 RDW 14.3 Plt Count 221 MPV 11.1 H Immature Gran % 0.2 Neutrophils % 85.9 Lymphocytes % 11.4 Monocytes % 2.3 Eosinophils % 0.0 Basophils % 0.2 Nucleated RBC % 0.0 Absolute Neutrophils 3.77 Absolute Lymphocytes 0.50 L Absolute Monocytes 0.10 Absolute Eosinophils 0.00 Absolute Basophils 0.01 PT INR APTT D-Dimer 2286 H VBG pH 7.55 H VBG pCO2 27 L VBG pO2 36 VBG HCO3 24 VBG Total CO2 22 L VBG O2 Saturation 70 VBG Base Excess 1 VBG Lactate 4.3 H* Sodium 131 L Potassium 3.5 Chloride 92 L Carbon Dioxide 25.7 Anion Gap 13.3 H BUN 6 L Creatinine 0.9 Est GFR (CKD-EPI 2020) 72.28 Glucose 122 H Calcium 7.9 L Magnesium 1.1 L Total Bilirubin 1.74 H AST 126 H ALT 34 Alkaline Phosphatase 207 H Troponin I < 50 < 50 NT-Pro-B Natriuret Pep 5360 H Total Protein 6.1 L Albumin 2.6 L Lipase 16 Procalcitonin < 0.1 Urine Color Yellow Urine Clarity Clear Urine pH 8.5 H Ur Specific [place] 1.020 Urine Protein 30 H Urine Ketones Trace H Urine Blood Negative Urine Nitrite Negative Urine Bilirubin Small H Urine Urobilinogen 4.0 H Ur Leukocyte Esterase Negative Urine RBC Negative Urine WBC 0-2 Ur Epithelial Cells Few Urine Crystals Negative Urine Bacteria Few Urine Casts Negative Urine Mucus Trace Ur Culture Indicated? No Urine Glucose Negative Ethyl Alcohol < 3.0 COVID-19 Source SARS-CoV-2 (PCR) Influenza Type A (PCR) Influenza Type B (PCR) RSV (PCR) Add-On Test Request DONE 12/01/23 12/01/23 12/01/23 23:20 23:25 23:41 WBC RBC Hgb Hct MCV MCH MCHC RDW Plt Count MPV Immature Gran % Neutrophils % Lymphocytes % Monocytes % Eosinophils % Basophils % Nucleated RBC % Absolute Neutrophils Absolute Lymphocytes Absolute Monocytes Absolute Eosinophils Absolute Basophils PT 12.7 H INR 1.3 H APTT 25.6 D-Dimer VBG pH VBG pCO2 VBG pO2 VBG HCO3 VBG Total CO2 VBG O2 Saturation VBG Base Excess VBG Lactate 2.9 H* Sodium Potassium Chloride Carbon Dioxide Anion Gap BUN Creatinine Est GFR (CKD-EPI 2020) Glucose Calcium Magnesium Total Bilirubin AST ALT Alkaline Phosphatase Troponin I NT-Pro-B Natriuret Pep Total Protein Albumin Lipase Procalcitonin Urine Color Urine Clarity Urine pH Ur Specific [place] Urine Protein Urine Ketones Urine Blood Urine Nitrite Urine Bilirubin Urine Urobilinogen Ur Leukocyte Esterase Urine RBC Urine WBC Ur Epithelial Cells Urine Crystals Urine Bacteria Urine Casts Urine Mucus Ur Culture Indicated? Urine Glucose Ethyl Alcohol COVID-19 Source NASOPHARYNX SARS-CoV-2 (PCR) Negative Influenza Type A (PCR) Negative Influenza Type B (PCR) Negative RSV (PCR) Negative Add-On Test Request 12/02/23 06:08 WBC 6.11 RBC 2.52 L Hgb 8.7 L D Hct 25.9 L MCV 103 H MCH 34.5 H MCHC 33.6 RDW 15.0 H Plt Count 170 MPV 11.8 H Immature Gran % Neutrophils % Lymphocytes % Monocytes % Eosinophils % Basophils % Nucleated RBC % Absolute Neutrophils Absolute Lymphocytes Absolute Monocytes Absolute Eosinophils Absolute Basophils PT INR APTT D-Dimer VBG pH VBG pCO2 VBG pO2 VBG HCO3 VBG Total CO2 VBG O2 Saturation VBG Base Excess VBG Lactate Sodium 128 L Potassium 3.0 L Chloride 94 L Carbon Dioxide 21.2 Anion Gap 12.8 H BUN 6 L Creatinine 0.9 Est GFR (CKD-EPI 2020) 72.28 Glucose 100 Calcium 7.0 L Magnesium 2.5 H Total Bilirubin 0.82 AST 75 H ALT 25 Alkaline Phosphatase 139 H Troponin I NT-Pro-B Natriuret Pep Total Protein 4.3 L Albumin 1.7 L Lipase Procalcitonin Urine Color Urine Clarity Urine pH Ur Specific [place] Urine Protein Urine Ketones Urine Blood Urine Nitrite Urine Bilirubin Urine Urobilinogen Ur Leukocyte Esterase Urine RBC Urine WBC Ur Epithelial Cells Urine Crystals Urine Bacteria Urine Casts Urine Mucus Ur Culture Indicated? Urine Glucose Ethyl Alcohol COVID-19 Source SARS-CoV-2 (PCR) Influenza Type A (PCR) Influenza Type B (PCR) RSV (PCR) Add-On Test Request Time Spent with Patient Time Spent with Patient: 25-34 minutes Time was spent: preparing to see the patient(eg.review tests), ordering m edications,tests, procedures, referring, communicating with other health toddler caregiver, indepentently interpreting results, counseling the patient and care coordination
--- NOTE | 2023-12-02 09:38 | PDOC.CMIN ---
Date of service: 12/02/23 Time of Service: 09:38 Care Management Initial Assmt Initial Assessment Reason for Hospitalization: gastritis Functional Status/Living Situation Patient Presentation: This morning Bonifacio was having a PT evaluation when CM attempted to meet with her and this afternoon she was in the OR for an EGD. Bonifacio was admitted with gastritis and weakness. Her Hgb dropped from 12.5 to 8.7 overnight however it increased throughout the day to 9.5 then 10.3 without receiving any blood products. She has evidence of melena but no hematemesis and is receiving IV Protonix. The EGD confirmed the presence of moderate gastritis with extensive duodenitis with punctate ulceration. No active or old bleeding was noted. Town of Residence: [facility] Resides with: Alone Employment Status: Retired Medications Medication Management: No Issues/Barriers identified Advance Directives Advance Directives: Do you have an Advance Directive: N 08/15/23 14:16 AD On File at [facility]: N 08/15/23 14:16 Date Asked 12/01/23 12/01/23 19:36 AD Date Reviewed COLST On File at [facility] Yes 08/15/23 14:16 COLST Date Scanned 01/03/21 08/15/23 14:16 Code Status Resuscitation Status Full Code Portal Pt does not currently have a portal and education provided: No Insurance Coverage/Financial Issues Insurance: BC/BS Federal Care Team Visit Care Team Role Provider Type MARIANO KEARNEY NP Primary Care Provider NON-[facility] STAFF PHYSICIAN Beatriz Pagan Other Providers REG OCCUPATIONAL THERAPIST Rosalinda Xie Other Providers CAR SALESMAN Gladys Alvarez Other Providers CAR SALESMAN Umm Iyer Other Providers CAR SALESMAN InPatient Margarito Henning Other Providers OTHER Marichuy Alonso RN Other Providers CAR SALESMAN Yaneth Cardona Other Providers RESEARCH PROFESSOR Maggi Chong Other Providers CAR SALESMAN Bette Springer Emergency Provider NURSE PRACTITIONER Juan Francisco Bennett [facility] Attending Provider Discharge Potential Discharge Needs: PCP F/U Appt Anticipated Barriers to Discharge: None Identified Patient/Family Education Needs: Review discharge instructions, discuss Ask Me Three Transportation: RCT Plan: Anticipate Bonifacio will be discharged home with no new services. She will follow up with her PCP and plan of care and transport via RCT vs private vehicle. CM will follow and support discharge planning concerns.. PFSH All Active Problems (Updated 12/02/23 @ 12:10 by Juan Altman MD) Discharge planning issues (Acute) Contraindication to deep vein thrombosis prophylaxis (Acute) Diverticulosis (Acute) Celiac artery stenosis (Acute) Atherosclerosis of abdominal aorta (Acute) Coronary artery calcification seen on CAT scan (Acute) Acute blood loss anemia (Acute) GI bleeding (Chronic) Right upper quadrant abdominal pain (Acute) Hyponatremia (Chronic) Gastritis (Acute) Lacerations of multiple sites of leg (Acute) Weakness (Acute) COPD with acute exacerbation (Acute) COPD (chronic obstructive pulmonary disease) (Chronic) Hypomagnesemia (Acute) Shortness of breath (Acute) Tobacco dependence syndrome (Chronic) Edema, peripheral (Acute) Cellulitis of left leg (Acute) Ambulatory dysfunction (Acute) Edema of both lower legs (Acute) Congestive heart failure (Chronic) COPD exacerbation (Acute) Cellulitis (Acute) Severe sepsis (Acute) Prolonged QT interval (Acute) Respiratory failure (Acute) Leg pain (Acute) Sepsis (Acute) Shock (Acute) Hypomagnesemia (Acute) Hypokalemia (Acute) Difficulty walking (Acute) PVD (peripheral vascular disease) (Chronic) Atherosclerosis of aorta (Acute) Acute hypokalemia (Acute) Hypoglycemia (Acute) Alcoholic ketoacidosis (Acute) Laceration of scalp (Acute) Fall (Acute) Chronic left hip pain (Acute) Contusion of hip (Acute) Closed intertrochanteric fracture of left hip (Acute) s/p IMN fixation (05/18/23) Smoker (Acute) Closed fracture of left hip (Acute) Fall (Acute) Anxiety (Chronic) Cavitary lesion of lung (Acute) H/O ETOH abuse (Acute) Tobacco use disorder (Acute 01/28/14) Pleural effusion (Acute) Hypomagnesemia (Acute) Fluid overload (Acute) Chest pain due to GERD (Acute) Chest wall muscle strain (Acute) Hypokalemia (Acute) Emphysema lung (Acute) Nicotine dependence, cigarettes, uncomplicated (Acute) Atherosclerosis (Acute) Gastric wall thickening (Acute) Stenosis of right internal carotid artery (Acute) Mass of upper lobe of right lung (Acute) Alcohol abuse (Chronic) Dehydration (Acute) Diarrhea (Acute) Hypomagnesemia (Chronic) B12 deficiency (Acute) Hypocalcemia (Chronic) Ascites (Acute) Chronic liver disease (Chronic) Weight loss, non-intentional (Acute) Macrocytic anemia (Acute) Early satiety (Acute) Folate deficiency (Acute) Hypomagnesemia (Acute) Hypokalemia (Acute) Leg pain (Acute) Cellulitis (Acute) Bilateral leg ulcer (Acute) Medical History Advanced care planning/counseling discussion Palliative care patient Pneumonia Pulmonary nodule COPD (chronic obstructive pulmonary disease) Hypomagnesemia Cachexia Hepatic fibrosis Ulcer of lower extremity Hair loss Vitamin D deficiency Chest pain Gastroesophageal reflux disease Hx pulmonary embolism COPD (chronic obstructive pulmonary disease) Chronic vomiting Malnutrition Frequent falls Bilateral leg pain Pancreatitis Diastolic dysfunction Folate deficiency anemia Ascites Bilateral lower extremity edema Unintentional weight loss Alcohol abuse Tobacco abuse Surgical History punch biopsy, skin of ankle, right lateral (11/24/16) negative for malignancy, sparse inflammation and reactive blood vessels foot surgery (~2000) Ligation of fallopian tube (~1999) ENT/Nasal surgery (~2007) Family History Father Lung disease Cancer Lung Social History Smoking/Tobacco Use Status: Current every day Tobacco Type: cigarettes Tobacco: How many years used: 45 Quit status: considering quitting Second Hand Exposure: Yes Smoking risk assessment performed?: Yes Alcohol Intake: current Alcohol Intake frequency: 3 or more drinks per day Alcohol type: wine and hard liquor Counseling given: Yes Counseling provided: provider counseling Drug use: Never Substance use type: marijuana Housing: apartment Current gender identity: female Do you feel safe at home: Yes Do you feel safe in your relationship?: Yes Additional Social history: Lives alone in studio in [facility], 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 Grew up in [facility], sisters in area. History History Para 0 Hx # Term Pregnancies Multiple births Hx # Pregnancies Ectopic pregnancies AB induced Hx Number of Living Children AB spontaneous SDOH(Care Management) Screening Will the Patient Participate in the Screening?: Yes Do you worry about having a steady place to live?: yes Problems where you live: no known problems In the past 12 months, have you had to go without electric, gas, oil or water in your home?: no Have you or anyone in your house had to go without enough food to eat?: no Has lack of transportation kept you from medical appointments or from doing things needed for daily living?: yes Has anyone in your support network made you feel unsafe for any reason?: no Social Determinants of Health Comments(SDOH Details): pt needs help getting groceries. she reports she cannot get her doors open to apartment. Health Related Social Needs Health related social needs: housing instability, housed, with risk of homelessness(Z59.811) and transportation insecurity(Z59.82)
--- NOTE | 2023-12-02 09:53 | SCONE_ITS ---
Date of service: 12/02/23 Time of Service: 15:00 Assessment and Plan Assessment and plan (1) CHF exacerbation: Status: Resolved (2) Closed compression fracture of L1 vertebra: Status: Inactive (3) COPD exacerbation: Status: Resolved (4) Diarrhea: Status: Inactive (5) Fracture of transverse process of lumbar vertebra: Status: Inactive (6) UTI (urinary tract infection): Status: Inactive (7) Gastroesophageal reflux disease: (8) Alcohol abuse: (9) Tobacco use disorder: Status: Acute (10) Emphysema lung: Status: Acute (11) COPD (chronic obstructive pulmonary disease): Status: Chronic Qualifiers: COPD type: chronic bronchitis Chronic bronchitis type: mixed simple and mucopurulent Qualified Code(s): J41.8 - Mixed simple and mucopurulent chronic bronchitis (12) Acute blood loss anemia: Status: Acute Assessment and plan: Continue PPI as previously ordered Plan EGD today Will have anesthesia eval for fitness for anesthesia given her COPD No signs of active hemorrhage or requiring blood products/hemodynamically stable -Will also follow her to evaluate her wounds. The right leg may require debridement. She is not currently on antibiotics. Will check ABIs on her as well. She is definitely going to need some wound care for her lower extremities. Informed consent is obtained for the procedural (explained in simple layman's terms that the pt. and/or family could understand) explaining risks vs benefits and alternatives to the procedure and consequences if we do not do the procedure and need/rational for the procedure. Risks include but are not limited to: bleeding, infection, perforation of esophagus, stomach, colon, small intestines, bronchus or trachea, or PTX. This would necessitate emergency surgery to repair the damage w/ possible ostomy; and other associated complications w/ the required surgery. Also complications of anesthesia including aspiration, MN/CVA/. I did personally review the case with Dr. Altman. I did review all of her labs and imaging This document was created with voice activated software and may contain errors. 20 mins spent in direct pt care and 55 in non face to face time (13) Macrocytic anemia: Status: Acute (14) Chest pain due to GERD: Status: Acute (15) Gastroenteritis: Status: Resolved (16) Right upper quadrant abdominal pain: Status: Acute (17) Hypotension: Status: Resolved (18) Congestive heart failure: Status: Chronic (19) PVD (peripheral vascular disease): Status: Chronic (20) Atherosclerosis: Status: Acute (21) Coronary artery calcification seen on CAT scan: Status: Acute (22) Atherosclerosis of abdominal aorta: Status: Acute (23) Celiac artery stenosis: Status: Acute (24) Diverticulosis: Status: Acute (25) Stenosis of right internal carotid artery: Status: Acute (26) Hepatic fibrosis: (27) Renal artery stenosis: Status: Acute (28) Superior mesenteric artery stenosis: Status: Acute (29) Unintentional weight loss: (30) Malnutrition: (31) Wound of right lower extremity: Status: Acute (32) Portal hypertensive gastropathy: Status: Acute (33) Duodenitis without hemorrhage: Status: Acute (34) Steatosis: Status: Acute (35) Compression fracture of L1 lumbar vertebra: Status: Acute (36) Elevated ferritin: Status: Acute History of Present Illness Narrative: Patient is seen today for EGD. She has an extensive history alcohol and tobacco use. She presented to the ER with failure to ride and significant wounds on both lower extremities. She does not eat and is severely malnourished. Her admitting hemoglobin was 125 and her hemoglobin today is 8.7. She was quite dehydrated at the time of admission so I think this represents her true hemoglobin. She also had a Hemoccult positive stool in the ER. She is not complaining of any abdominal pain today. She is on omeprazole daily. She was on prednisone the last week of October for a COPD exacerbation. Anesthesia was consulted for preop evaluation. Patient recently had all of her hair shaved off. 12/02/23 H&P: This is a 63-year-old lady who lives alone and is severely debilitated by or lifestyle habits including drinking alcohol, smoking tobacco and poor nutrition. She chronically is ill and has frequent visits to the ED with similar issues such as weakness and falling. She did not come to the ED with recent lacerations over her legs which are clean and does not look infected. She cannot stand or take care of self and requires admission for gentle rehydration and further evaluation for abdominal symptoms with fluid nausea and vomiting with possible gastritis on CT imaging. She also has exam consistent with possible gallbladder issues and will have an ultrasound for gallbladder CT exam unrevealing. She is not requiring IV antibiotics at this time will be watched closely as we treat her hypomagnesemia with repletion and further evaluate her abdominal symptoms. She may be a candidate for cervical consultation and EGD to assist the patient having hematemesis admitted heme positive brown stools. Lovenox is not indicated because of possibility of active bleeding, patient will have compression stockings over her lower extremities which are sore from her recent lacerations. Nursing care for wound care and wound care team to evaluate patient if needed. PT and OT will evaluate patient for safety with assisted ambulation with her frequent falls. She will be evaluated by case management for possible placement as a level level to care at local facility patient previously been at the [facility]. She is a full code. Pulmonary Arteries: No evidence of filling defects to suggest pulmonary emboli. Tracheobronchial tree: No bronchiectasis or mucus plugging. Mediastinum and Gaye: No dominant adenopathy or fluid collection. Pulmonary parenchyma: No consolidation. Moderate to severe emphysematous changes greater in the upper lobes. Stable air scarring right upper lobe. Pleura: No effusion. No pneumothorax. Heart: The heart is notdilated. Moderate coronary artery calcifications are seen. Mitral annular calcification. Aorta: Thoracic aorta non-dilated. Severe atherosclerotic changes. Bones: Old mid sternal fracture. Tubes, Catheters, and Lines: None. Soft tissues: Unremarkable. ABDOMEN and PELVIS: Liver: Normal size. Normal density. No suspicious measurable mass. Portal, Superior Mesenteric, and Splenic Veins: Unremarkable. Gallbladder and Biliary Tract: No radiodense calculus. No biliary dilatation. Pancreas: Atrophic. Normal density, no abnormal calcifications or inflammatory process. Spleen: Normal. Adrenals: No masses seen. Kidneys: Normal size, contour and axis. No radiodense stones. No obstructive uropathy. No masses seen. Vasculature: Abdominal aorta non-dilated. Severe atherosclerotic changes causing severe narrowing at the mid to distal aorta. No significant iliac or common femoral stenosis. Severe calcification at the origin of both renal arteries, causing severe stenosis. Heavy calcification at the celiac axis and SMA, causing severe stenosis. Bowel: Stomach empty, not well evaluated. No evidence of small bowel ischemia or inflammatory changes.. Diverticulosis. No obstruction or bowel wall thickening. Appendix is unremarkable. The colon is mostly free of stool. Peritoneal Cavity: No ascites, collection or mesenteric inflammatory response. Lymph Nodes: Within normal limits. Soft Tissues: Unremarkable. Bladder: Douglas catheter decompresses urinary bladder. Reproductive Organs: Unremarkable as visualized. Bones: Stable L1 compression fracture. Hardware and left hip. IMPRESSION: 1. No evidence of pulmonary embolism. Moderate to severe emphysematous changes. 2. No acute abdominal or pelvic process. Severe atherosclerotic changes of the abdominal aorta and branch vessels. Severe stenosis at the origins of the celiac axis, SMA and both renal arteries. Severe stenosis mid to distal abdominal aorta. Review of Systems All systems reviewed & are unremarkable except as noted in HPI and below ( Patient is poor historian) PFSH All Active Problems (Updated 12/02/23 @ 22:54 by Jessenia Damon DO) Elevated ferritin (Acute) Compression fracture of L1 lumbar vertebra (Acute) Steatosis (Acute) Mild Duodenitis without hemorrhage (Acute) Portal hypertensive gastropathy (Acute) Wound of right lower extremity (Acute) into the fat layer Superior mesenteric artery stenosis (Acute) Renal artery stenosis (Acute) Discharge planning issues (Acute) Contraindication to deep vein thrombosis prophylaxis (Acute) Diverticulosis (Acute) Celiac artery stenosis (Acute) Atherosclerosis of abdominal aorta (Acute) Severe Coronary artery calcification seen on CAT scan (Acute) Acute blood loss anemia (Acute) GI bleeding (Chronic) Right upper quadrant abdominal pain (Acute) Hyponatremia (Chronic) Gastritis (Acute) Lacerations of multiple sites of leg (Acute) Weakness (Acute) COPD with acute exacerbation (Acute) COPD (chronic obstructive pulmonary disease) (Chronic) Hypomagnesemia (Acute) Shortness of breath (Acute) Tobacco dependence syndrome (Chronic) Edema, peripheral (Acute) Cellulitis of left leg (Acute) Ambulatory dysfunction (Acute) Edema of both lower legs (Acute) Congestive heart failure (Chronic) COPD exacerbation (Acute) Cellulitis (Acute) Severe sepsis (Acute) Prolonged QT interval (Acute) Respiratory failure (Acute) Leg pain (Acute) Sepsis (Acute) Shock (Acute) Hypomagnesemia (Acute) Hypokalemia (Acute) Difficulty walking (Acute) PVD (peripheral vascular disease) (Chronic) Acute hypokalemia (Acute) Hypoglycemia (Acute) Alcoholic ketoacidosis (Acute) Laceration of scalp (Acute) Fall (Acute) Chronic left hip pain (Acute) Contusion of hip (Acute) Closed intertrochanteric fracture of left hip (Acute) s/p IMN fixation (05/18/23) Smoker (Acute) Closed fracture of left hip (Acute) Anxiety (Chronic) Cavitary lesion of lung (Acute) Tobacco use disorder (Acute 01/28/14) Pleural effusion (Acute) Hypomagnesemia (Acute) Fluid overload (Acute) Chest pain due to GERD (Acute) Chest wall muscle strain (Acute) Hypokalemia (Acute) Emphysema lung (Acute) Nicotine dependence, cigarettes, uncomplicated (Acute) Atherosclerosis (Acute) Gastric wall thickening (Acute) Stenosis of right internal carotid artery (Acute) Mass of upper lobe of right lung (Acute) Alcohol abuse (Chronic) Dehydration (Acute) Diarrhea (Acute) Hypomagnesemia (Chronic) B12 deficiency (Acute) Hypocalcemia (Chronic) Ascites (Acute) Chronic liver disease (Chronic) Weight loss, non-intentional (Acute) Macrocytic anemia (Acute) Early satiety (Acute) Folate deficiency (Acute) Hypomagnesemia (Acute) Hypokalemia (Acute) Leg pain (Acute) Bilateral leg ulcer (Acute) Medical History Advanced care planning/counseling discussion Palliative care patient Pneumonia Pulmonary nodule COPD (chronic obstructive pulmonary disease) Hypomagnesemia Cachexia Hepatic fibrosis Ulcer of lower extremity Hair loss Vitamin D deficiency Chest pain Gastroesophageal reflux disease Hx pulmonary embolism COPD (chronic obstructive pulmonary disease) Chronic vomiting Malnutrition Frequent falls Bilateral leg pain Pancreatitis Diastolic dysfunction Folate deficiency anemia Ascites Bilateral lower extremity edema Unintentional weight loss Alcohol abuse Tobacco abuse Surgical History punch biopsy, skin of ankle, right lateral (11/24/16) negative for malignancy, sparse inflammation and reactive blood vessels foot surgery (~2000) Ligation of fallopian tube (~1999) ENT/Nasal surgery (~2007) Family History Father Lung disease Cancer Lung Social History Smoking/Tobacco Use Status: Current every day Tobacco Type: cigarettes Tobacco: How many years used: 45 Quit status: considering quitting Second Hand Exposure: Yes Smoking risk assessment performed?: Yes Alcohol Intake: current Alcohol Intake frequency: 3 or more drinks per day Alcohol type: wine and hard liquor Counseling given: Yes Counseling provided: provider counseling Drug use: Never Substance use type: marijuana Housing: apartment Current gender identity: female Do you feel safe at home: Yes Do you feel safe in your relationship?: Yes Additional Social history: Lives alone in studio in [facility], 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 Grew up in [facility], sisters in area. History History 2 Para 0 Hx # Term Pregnancies Multiple births Hx # Pregnancies Ectopic pregnancies AB induced Hx Number of Living Children AB spontaneous Exam Const General: cooperative, comfortable and frail appearing Nutritional Appearance: malnourished and underweight Orientation: alert, awake and oriented x3 HENMT Ears: hearing grossly normal bilaterally Teeth and gingiva: multiple restorations Eyes Cornea: corneas normal Resp Effort & Inspection: normal respiratory effort Auscultation: bronchial breath sounds Cardio Rate: regular rate Rhythm: regular rhythm GI Other: Patient is not complaining of any abdominal pain today. There is no pain with palpation. She does have good sounds. No surgical scars. Extrem Other: She has multiple punctate ulcerations on bilateral lower extremities. She has a large area of hematoma/ecchymosis on her right medial lindo. This does go all the way down to the fat layer. This is questionably if this is viable and may need to be debrided. -She is moving all her extremities independently Results Last Vital Signs Temp 35.2 C L 12/02/23 09:03 Pulse 78 12/02/23 09:03 Resp 16 12/02/23 09:03 BP 117/68 12/02/23 09:03 Pulse Ox 99 12/02/23 09:03 Labs 12/02/23 20:05 12/02/23 14:10 Labs: Laboratory Results - last 24 hr 12/01/23 12/01/23 12/01/23 19:45 22:00 22:32 WBC 4.39 L RBC 3.64 L Hgb 12.5 Hct 36.4 MCV 100 H MCH 34.3 H MCHC 34.3 RDW 14.3 Plt Count 221 MPV 11.1 H Immature Gran % 0.2 Neutrophils % 85.9 Lymphocytes % 11.4 Monocytes % 2.3 Eosinophils % 0.0 Basophils % 0.2 Nucleated RBC % 0.0 Absolute Neutrophils 3.77 Absolute Lymphocytes 0.50 L Absolute Monocytes 0.10 Absolute Eosinophils 0.00 Absolute Basophils 0.01 PT INR APTT D-Dimer 2286 H VBG pH 7.55 H VBG pCO2 27 L VBG pO2 36 VBG HCO3 24 VBG Total CO2 22 L VBG O2 Saturation 70 VBG Base Excess 1 VBG Lactate 4.3 H* Sodium 131 L Potassium 3.5 Chloride 92 L Carbon Dioxide 25.7 Anion Gap 13.3 H BUN 6 L Creatinine 0.9 Est GFR (CKD-EPI 2020) 72.28 Glucose 122 H Calcium 7.9 L Magnesium 1.1 L Total Bilirubin 1.74 H AST 126 H ALT 34 Alkaline Phosphatase 207 H Troponin I < 50 < 50 NT-Pro-B Natriuret Pep 5360 H Total Protein 6.1 L Albumin 2.6 L Lipase 16 Procalcitonin < 0.1 Urine Color Yellow Urine Clarity Clear Urine pH 8.5 H Ur Specific [place] 1.020 Urine Protein 30 H Urine Ketones Trace H Urine Blood Negative Urine Nitrite Negative Urine Bilirubin Small H Urine Urobilinogen 4.0 H Ur Leukocyte Esterase Negative Urine RBC Negative Urine WBC 0-2 Ur Epithelial Cells Few Urine Crystals Negative Urine Bacteria Few Urine Casts Negative Urine Mucus Trace Ur Culture Indicated? No Urine Glucose Negative Ethyl Alcohol < 3.0 COVID-19 Source SARS-CoV-2 (PCR) Influenza Type A (PCR) Influenza Type B (PCR) RSV (PCR) Add-On Test Request DONE 12/01/23 12/01/23 12/01/23 23:20 23:25 23:41 WBC RBC Hgb Hct MCV MCH MCHC RDW Plt Count MPV Immature Gran % Neutrophils % Lymphocytes % Monocytes % Eosinophils % Basophils % Nucleated RBC % Absolute Neutrophils Absolute Lymphocytes Absolute Monocytes Absolute Eosinophils Absolute Basophils PT 12.7 H INR 1.3 H APTT 25.6 D-Dimer VBG pH VBG pCO2 VBG pO2 VBG HCO3 VBG Total CO2 VBG O2 Saturation VBG Base Excess VBG Lactate 2.9 H* Sodium Potassium Chloride Carbon Dioxide Anion Gap BUN Creatinine Est GFR (CKD-EPI 2020) Glucose Calcium Magnesium Total Bilirubin AST ALT Alkaline Phosphatase Troponin I NT-Pro-B Natriuret Pep Total Protein Albumin Lipase Procalcitonin Urine Color Urine Clarity Urine pH Ur Specific [place] Urine Protein Urine Ketones Urine Blood Urine Nitrite Urine Bilirubin Urine Urobilinogen Ur Leukocyte Esterase Urine RBC Urine WBC Ur Epithelial Cells Urine Crystals Urine Bacteria Urine Casts Urine Mucus Ur Culture Indicated? Urine Glucose Ethyl Alcohol COVID-19 Source NASOPHARYNX SARS-CoV-2 (PCR) Negative Influenza Type A (PCR) Negative Influenza Type B (PCR) Negative RSV (PCR) Negative Add-On Test Request 12/02/23 06:08 WBC 6.11 RBC 2.52 L Hgb 8.7 L D Hct 25.9 L MCV 103 H MCH 34.5 H MCHC 33.6 RDW 15.0 H Plt Count 170 MPV 11.8 H Immature Gran % Neutrophils % Lymphocytes % Monocytes % Eosinophils % Basophils % Nucleated RBC % Absolute Neutrophils Absolute Lymphocytes Absolute Monocytes Absolute Eosinophils Absolute Basophils PT INR APTT D-Dimer VBG pH VBG pCO2 VBG pO2 VBG HCO3 VBG Total CO2 VBG O2 Saturation VBG Base Excess VBG Lactate Sodium 128 L Potassium 3.0 L Chloride 94 L Carbon Dioxide 21.2 Anion Gap 12.8 H BUN 6 L Creatinine 0.9 Est GFR (CKD-EPI 2020) 72.28 Glucose 100 Calcium 7.0 L Magnesium 2.5 H Total Bilirubin 0.82 AST 75 H ALT 25 Alkaline Phosphatase 139 H Troponin I NT-Pro-B Natriuret Pep Total Protein 4.3 L Albumin 1.7 L Lipase Procalcitonin Urine Color Urine Clarity Urine pH Ur Specific [place] Urine Protein Urine Ketones Urine Blood Urine Nitrite Urine Bilirubin Urine Urobilinogen Ur Leukocyte Esterase Urine RBC Urine WBC Ur Epithelial Cells Urine Crystals Urine Bacteria Urine Casts Urine Mucus Ur Culture Indicated? Urine Glucose Ethyl Alcohol COVID-19 Source SARS-CoV-2 (PCR) Influenza Type A (PCR) Influenza Type B (PCR) RSV (PCR) Add-On Test Request
--- NOTE | 2023-12-02 10:48 | DI.RAD_ITS ---
Exam(s) XR TIB/FIB LT XR TIB/FIB RT EXAM: XR TIB/FIB RT CLINICAL HISTORY: s/p leg contusion from TV. TECHNIQUE: 2D digital imaging was performed. Two views. COMPARISON: CR XR TIB/FIB LT from 12/02/2023 FINDINGS: BONES: No acute fracture is present. No bony destructive lesion is seen. Visualized portion of knee a nd ankle joints are unremarkable. Bones appear osteopenic. SOFT TISSUE: Swelling over right lateral distal 3rd of the leg. No significant left-sided swelling. IMPRESSION: soft tissue swelling at the lower lateral right leg. No evidence of fracture. DATA REPOSITORY: RADIATION DOSE DELIVERED:
[2023-12-02] MEDS: POTASSIUM CHLORIDE 20 MEQ/100 ML BAG 50 MEQ IVINF ×2 (10:54→13:26)
[2023-12-02] MEDS: HYDROmorphone 2 MG/ML SYR 0.5 MG IVP (11:15)
[2023-12-02 11:23] LABS: Lab Add On Test DONE
[2023-12-02 11:42] LABS: HCT 27.6 % (36.0-46.0); HGB 9.5 g/dL (11.2-15.7)
[2023-12-02 11:53] LABS: INR 1.3 (0.9-1.1); Prothrombin Time 12.5 sec (9.1-11.1)
[2023-12-02 12:02] LABS: Ferritin 366 ng/mL (8-252); Folate 5.8 ng/mL (8.6-20.0); Vitamin B12 1581 pg/mL (193-986)
--- NOTE | 2023-12-02 12:21 | ANES.PREOP_ITS ---
General Info Date of Service Date Performed: 12/02/23 Height: 5 ft 8 in Weight: 51.2 kg Body Mass Index (BMI): 17.2 Surgical Procedure: Operation Date: 12/02/23 14:35 Proposed Procedure Side Surgeon p Gastroscopy Jessenia Damon, DO Meds Allergies and Home Medications Allergies Allergy/AdvReac Type Severity Reaction Status Date / Time bacitracin (From Neosporin Allergy Mild localized Verified 10/26/23 20:50 ([id number])) redness neomycin (From Neosporin Allergy Mild localized Verified 10/26/23 20:50 ([id number])) redness polymyxin B (From Neosporin Allergy Mild localized Verified 10/26/23 20:50 ([id number])) redness Home Medication ?Medication ?Instructions ?Recorded multivitamin (Multiple Vitamins 1 tab PO DAILY #30 tabs 08/13/20 tablet) albuterol sulfate 90 mcg/actuation 2 puff inhalation Q6H PRN 01/18/22 aerosol inhaler shortness of breath or wheezing #8.5 grams thiamine HCl (vitamin B1) 250 mg 250 mg PO DAILY 04/19/23 tablet tiotropium 2.5 mcg-olodaterol 2.5 2 puff inhalation Q24H #4 grams 05/04/23 mcg/actuation mist for inhalation (Stiolto Respimat) ipratropium 0.5 mg-albuterol 3 mg 3 ml inhalation Q4H PRN wheezing 05/10/23 (2.5 mg base)/3 mL nebulization #540 mL soln gabapentin 300 mg capsule 300 mg PO TID 06/06/23 omeprazole 40 mg capsule,delayed 40 mg PO DAILY 06/12/23 release loperamide 1 mg/7.5 mL oral liquid 2 mg (15 mL) PO Q1-4H PRN #120 mL 08/02/23 (Imodium A-D) magnesium oxide 400 mg (241.3 mg 400 mg PO DAILY #90 tabs 10/06/23 magnesium) tablet potassium chloride 20 mEq 40 meq (2 x 20 mEq) PO DAILY #90 10/06/23 tablet,extended tabs release(part/cryst) (Klor-Con M) nicotine (polacrilex) 2 mg buccal 2 mg SUC Q2H PRN PRN #120 ea 10/11/23 lozenge hydrocortisone 2.5 % topical cream 1 applic topical DAILY 11/25/23 prednisone 20 mg tablet 20 mg PO DAILY #4 tabs 11/25/23 Current Visit Medications: Current Medications Generic Name Dose Route Start Last Admin Trade Name Freq PRN Reason Stop Dose Admin Acetaminophen 325 - 650 mg 12/02/23 01:23 12/02/23 03:39 Acetaminophen 325 Mg Tab PO 650 mg Q4H PRN PRN Administration Al Hydrox/Mg Hydrox/Simethicone 15 ml 12/02/23 01:23 Mylanta Double Strength Suspension 30 Ml Cup PO Q2H PRN PRN Albuterol Sulfate 2.5 mg 12/02/23 01:18 Albuterol 2.5 Mg/3 Ml Inh Soln Vial UPD Q2H PRN PRN Albuterol/Ipratropium 3 ml 12/02/23 06:00 12/02/23 07:06 Albuterol/Ipratropium 3 Ml Upd Vial UPD Not Given Q6H SIVA Calcium Carbonate 1,000 mg 12/02/23 01:28 Calcium Carbonate *Tums* 500 Mg Chew PO TID PRN PRN Docusate Sodium 100 mg 12/02/23 01:23 Docusate Sodium 100 Mg Cap PO TID PRN PRN Gabapentin 300 mg 12/02/23 08:30 12/02/23 09:55 Gabapentin 300 Mg Cap PO Not Given TID SIVA Hydrocortisone 0 gm 12/02/23 08:30 Hydrocortisone 2.5% Cr 30 Gm Tube TP BID PRN PRN Hydromorphone HCl 0.5 mg 12/02/23 09:24 12/02/23 11:15 Hydromorphone 2 Mg/Ml Syr IVP 0.5 mg Q6H PRN PRN Administration Sodium Chloride 1,000 mls @ 125 mls/hr 12/02/23 01:30 12/02/23 11:02 Saline 1000ml Bag IV 125 mls/hr INFUSION SIVA Infusion Potassium Chloride 20 meq in 100 mls @ 50 mls/hr 12/02/23 09:30 12/02/23 10:54 IVINF 12/02/23 13:29 50 mls/hr Q2H SIVA Administration IV Miscellaneous Supplies 1 each 12/02/23 01:30 Iv Access IV DIRECTED SIVA Magnesium Hydroxide 30 ml 08/02/24 01:23 Milk Of Magnesia 30 Ml Cup PO DAILY PRN PRN Magnesium Oxide 400 mg 12/02/23 08:30 12/02/23 09:55 Magnesium Oxide 400 Mg Tab PO Not Given DAILY [facility] Melatonin 9 mg 12/02/23 03:00 12/02/23 03:40 Melatonin 3 Mg Tab PO 9 mg HS SIVA Administration Multivitamins 1 tab 12/02/23 08:30 12/02/23 09:55 Multivitamin Tab PO Not Given DAILY [facility] Nicotine 2 mg 12/02/23 01:30 12/02/23 05:44 Nicotine 2 Mg Lozg SUC 2 mg Q2H PRN PRN Administration Ondansetron HCl 4 mg 12/02/23 01:35 Ondansetron 4 Mg/2 Ml Vial IVP Q6H PRN PRN Pantoprazole Sodium 40 mg 12/02/23 10:00 Pantoprazole 40 Mg Vial IVP Q12H [facility] Polyethylene Glycol 17 gm 12/02/23 01:23 Polyethylene Glycol 3350 17 Gm Packet PO DAILY PRN PRN Constipation Potassium Chloride 40 meq 12/02/23 08:30 12/02/23 09:56 Potassium Chloride 20 Meq Tabcr PO Not Given DAILY [facility] Sodium Chloride 0 ml 12/01/23 19:34 12/02/23 02:41 Normal Saline Flush 10 Ml Syr IVP 10 ml PRN PRN Administration Sodium Chloride 0 ml 12/01/23 20:00 12/02/23 09:55 Normal Saline Flush 10 Ml Syr IVP Not Given BID [facility] Sodium Chloride 0 ml 12/01/23 19:34 Normal Saline 10 Ml Vial IJ DIRECTED PRN Thiamine HCl 250 mg 12/02/23 08:30 12/02/23 09:56 Thiamine 100 Mg Tab PO Not Given DAILY [facility] PFSH Active Problems Active Problems: Problem Status Onset Code Discharge planning issues Acute Z02.9 Contraindication to deep vein thrombosis prophylaxis Acute Z53.09 Diverticulosis Acute K57.90 Celiac artery stenosis Acute I77.1 Atherosclerosis of abdominal aorta Acute I70.0 Coronary artery calcification seen on CAT scan Acute I25.10 Acute blood loss anemia Acute D62 GI bleeding Chronic K92.2 Right upper quadrant abdominal pain Acute R10.11 Hyponatremia Chronic E87.1 Gastritis Acute K29.70 Lacerations of multiple sites of leg Acute S81.819A Weakness Acute R53.1 COPD with acute exacerbation Acute J44.1 COPD (chronic obstructive pulmonary disease) Chronic J44.9 Hypomagnesemia Acute E83.42 Shortness of breath Acute R06.02 Tobacco dependence syndrome Chronic Edema, peripheral Acute R60.0 Cellulitis of left leg Acute L03.116 Ambulatory dysfunction Acute R26.2 Edema of both lower legs Acute R60.0 Congestive heart failure Chronic I50.9 COPD exacerbation Acute J44.1 Acute respiratory failure with hypoxia Resolved J96.01 Cellulitis Acute L03.90 Severe sepsis Acute A41.9, R65.20 Prolonged QT interval Acute R94.31 Respiratory failure Acute J96.90 Leg pain Acute M79.606 Sepsis Acute A41.9 Shock Acute R57.9 Hypomagnesemia Acute E83.42 Hypokalemia Acute E87.6 Difficulty walking Acute R26.2 PVD (peripheral vascular disease) Chronic I73.9 Atherosclerosis of aorta Acute I70.0 Acute hypokalemia Acute E87.6 Hypoglycemia Acute E16.2 Alcoholic ketoacidosis Acute E87.29 Laceration of scalp Acute S01.01XA Fall Acute W19.XXXA Chronic left hip pain Acute M25.552, G89.29 Contusion of hip Acute S70.00XA Closed intertrochanteric fracture of left hip Acute S72.142A Smoker Acute F17.200 Closed fracture of left hip Acute S72.002A Fall Acute W19.XXXA Anxiety Chronic F41.9 Cavitary lesion of lung Acute J98.4 H/O ETOH abuse Acute F10.11 Tobacco use disorder Acute 01/28/14 F17.200 Pleural effusion Acute J90 Hypomagnesemia Acute E83.42 Fluid overload Acute E87.70 Chest pain due to GERD Acute K21.9, R07.9 Chest wall muscle strain Acute S29.011A Hypokalemia Acute E87.6 Emphysema lung Acute J43.9 Nicotine dependence, cigarettes, uncomplicated Acute F17.210 Atherosclerosis Acute I70.90 Gastric wall thickening Acute K31.89 Stenosis of right internal carotid artery Acute I65.21 Mass of upper lobe of right lung Acute R91.8 Dehydration Resolved E86.0 Alcohol abuse Chronic F10.10 Gastroenteritis Resolved K52.9 Hypotension Resolved I95.9 Dehydration Acute E86.0 Diarrhea Acute R19.7 Acute kidney injury Resolved N17.9 Hypomagnesemia Chronic E83.42 B12 deficiency Acute E53.8 Hypocalcemia Chronic E83.51 Ascites Acute R18.8 Chronic liver disease Chronic K76.9 Weight loss, non-intentional Acute R63.4 Macrocytic anemia Acute D53.9 Early satiety Acute R68.81 Folate deficiency Acute E53.8 Hypomagnesemia Acute E83.42 Hypokalemia Acute E87.6 Leg pain Acute M79.606 Cellulitis Acute L03.90 Bilateral leg ulcer Acute L97.919, L97.929 Medical History Medical History Advanced care planning/counseling discussion Palliative care patient Pneumonia Pulmonary nodule COPD (chronic obstructive pulmonary disease) Hypomagnesemia Cachexia Hepatic fibrosis Ulcer of lower extremity Hair loss Vitamin D deficiency Chest pain Gastroesophageal reflux disease Hx pulmonary embolism COPD (chronic obstructive pulmonary disease) Chronic vomiting Malnutrition Frequent falls Bilateral leg pain Pancreatitis Diastolic dysfunction Folate deficiency anemia Ascites Bilateral lower extremity edema Unintentional weight loss Alcohol abuse Tobacco abuse Surgical History Surgical History punch biopsy, skin of ankle, right lateral (11/24/16) negative for malignancy, sparse inflammation and reactive blood vessels foot surgery (~2000) Ligation of fallopian tube (~1999) ENT/Nasal surgery (~2007) Tobacco Smoking/Tobacco Use Status: Current every day Tobacco Type: cigarettes Smoking cigarettes per day: 10 Second hand exposure: Yes Alcohol Alcohol Intake: current Alcohol intake frequency: 3 or more drinks per day Alcohol type: wine and hard liquor Counseling provided: provider counseling Substance Use Substance use: Never Substance use type: marijuana Prental History History 2 Para 0 Hx # Term Pregnancies Multiple births Hx # Pregnancies Ectopic pregnancies AB induced Hx Number of Living Children AB spontaneous Vital Signs and Lab Results Vital Signs Most Recent Vital Signs in EMR: Most Recent Vital Signs Temp Pulse Resp BP Pulse Ox 36.9 C 76 18 115/72 94 12/02/23 11:22 12/02/23 11:22 12/02/23 11:22 12/02/23 11:22 12/02/23 11:22 Point of Care Results Point of Care Results: Finger Stick Blood Glucose 121 12/01/23 21:16 Lab Results 12/02/23 11:30 12/02/23 06:08 Blood Type / Crossmatch: 2 Antibody Screen NEGATIVE 12/02/23 Complete Blood Count: 2 White Blood Count 6.11 10^3/uL (4.4-10.8) 12/02/23 06:08 Red Blood Count 2.52 10^6/uL (3.93-5.22) L 12/02/23 06:08 Hemoglobin 9.5 g/dL (11.2-15.7) L 12/02/23 11:30 Hematocrit 27.6 % (36.0-46.0) L 12/02/23 11:30 Platelet Count 170 10^3/uL (130-400) 12/02/23 06:08 Venous Blood Lactate 2.9 mmol/L (0.6-1.4) H* 12/01/23 23:25 Complete Metabolic Panel: 2 Sodium 128 mmol/L (136-145) L 12/02/23 06:08 Potassium 3.0 mmol/L (3.5-5.1) L 12/02/23 06:08 Chloride 94 mmol/L (98-107) L 12/02/23 06:08 Carbon Dioxide 21.2 mmol/L (21.0-32.0) 12/02/23 06:08 BUN 6 mg/dL (7-18) L 12/02/23 06:08 Creatinine 0.9 mg/dL (0.55-1.02) 12/02/23 06:08 Est GFR (CKD-EPI 2020) 72.28 (mL/min/1.73m2) 12/02/23 06:08 Magnesium 2.5 mg/dL (1.8-2.4) H 12/02/23 06:08 Calcium 7.0 mg/dL (8.5-10.1) L 12/02/23 06:08 Albumin 1.7 g/dL (3.4-5.0) L 12/02/23 06:08 Glucose 100 mg/dL (74-106) 12/02/23 06:08 Liver Function Panel: 2 Alanine Aminotransferase (ALT/SGPT) 25 U/L (14-59) 12/02/23 06: 08 Aspartate Amino Transf (AST/SGOT) 75 U/L (15-37) H 12/02/23 06: 08 Coagulation Panel: 2 INR International Normalized Ratio 1.3 (0.9-1.1) H 12/02/23 11 :30 Prothrombin Time 12.5 sec (9.1-11.1) H 12/02/23 11:30 Activated Partial Thromboplast Time 25.6 sec (23.6-32.8) 23:20 D-Dimer 2286 ng/mlFEU (<500) H 12/01/23 19:45 Cardiac Panel: 2 Troponin I < 50 ng/L (< or =60) 12/01/23 NT-Pro-B Natriuret Pep 5360 pg/mL (<300) H 12/01/23 Arterial Blood Gas: 2 No Data to Display Venous Blood Gas: 2 Venous Blood pH 7.55 (7.31-7.41) H 12/01/23 22:00 Venous Blood Partial Pressure O2 36 mmHg 12/01/23 22:00 Venous Blood Partial Pressure CO2 27 mmHg (41-51) L 12/01/23 22 :00 Venous Blood Oxygen Saturation 70 % 12/01/23 22:00 Venous Blood HCO3 24 mmol/L (23-28) 12/01/23 22:00 Venous Blood Base Excess 1 mmol/L (-2-3) 12/01/23 22:00 Venous Blood Total Carbon Dioxide 22 mmol/L (24-29) L 12/01/23 22:00 Pancreas Panel: 2 Lipase 16 U/L (16-77) 12/01/23 19:45 Thyroid Panel: 2 No Data to Display Infectious Disease: 2 Coronavirus (COVID-19)(PCR) Negative (Negative) 12/01/23 23:41 Coronavirus 2019 Source NASOPHARYNX 12/01/23 23:41 Influenza Virus Type A (PCR) Negative (Negative) 12/01/23 23:4 1 Influenza Virus Type B (PCR) Negative (Negative) 12/01/23 23:4 1 Respiratory Syncytial Virus (PCR) Negative (Negative) 12/01/23 23:41 Blood Cultures: 2 No Data to Display Toxicology Panel: 2 Ethyl Alcohol Level < 3.0 mg/dL (<10) 12/01/23 19:45 Imaging and Studies Imaging and Studies Study information below may be from another EMR and interpreted by another provider. Please see original notes in EMR for more complete details. EKG Summary: 05/25: sinus. RBBB. 12/2023 Conclusion Sinus tachycardia...rate> 99 Probable left atrial enlargement...P >50mS, <-0.10mV V1 Borderline ST depression, anterior leads...ST <-0.07mV, V2-V4 Prolonged QT interval...QTc >500mS Echocardiogram Summary: 09/22/23 Indications: Elevated BNP, Low blood pressure Other Information Study Quality: Adequate. Technically limited study due to exam done supine. Conclusion Mild concentric left ventricular hypertrophy. Ejection fraction biplane is 55%. Visually it is 60 to 65% with normal wall motion Mildly dilated right ventricle. Normal right ventricular systolic function Left atrium is severely dilated. Right atrium is mildly dilated Aortic valve is mildly sclerotic and trileaflet without stenosis or regurgitation Mitral annular calcification, thickened mitral leaflets. There is moderate to severe eccentric mitral regurgitation. There is moderate mitral stenosis Moderate tricuspid regurgitation. Estimated right ventricular systolic pressure is 41 mmHg 11/15: mild LVH, LVEF 65-70%, moderate TR. Anesthesia Assessment and Plan Anesthesia History Personal History: No History of Anesthesia Complications, Delayed Emergence and Pseudocholinesterase Deficiency Family History: No Family History of Anesthesia Complications Exercise Tolerance Exercise Tolerance: Metabolic Equivalents<4 Pertinent Negatives Pertinent Negatives: No History of CVA/TIA Cardiac & Pulmonary Exam Cardiac Exam: Normal S1/S2 Heart Sounds Pulmonary Exam: Clear Bilateral Breath Sounds Implantable Cardiac Device Does patient have a Pacemaker or an ICD?: No Airway Exam Known Difficult Airway: No Mallampati Class: 3 Mouth Opening: Narrow (< 3cm) Thyromental Distance: Greater than 3 cm Neck Range of Motion: Full ROM Neck Circumference: Normal Teeth Condition: Generalized Poor Dentition ASA Classification ASA Score: ASA 3 Emergency Case?: No NPO Status NPO Status: NPO Clears >2 hours, Solids >8 hours Anesthesia Plan Resuscitation Status: Full Code Anesthesia Technique: General Anesthesia Airway Planned: Natural Airway Monitors Used: Standard Monitors
[2023-12-02] MEDS: PHYTONADIONE 10 MG in Normal Saline 50 ML 200 MG IVPB (13:06)
--- NOTE | 2023-12-02 13:34 | PHA.REVIEW2 ---
Pharmacy Admission Review Admission Clinical Review Admission Pharmacy Review: Discharge planning issues (Acute) Contraindication to deep vein thrombosis prophylaxis (Acute) Diverticulosis (Acute) Celiac artery stenosis (Acute) Atherosclerosis of abdominal aorta (Acute) Coronary artery calcification seen on CAT scan (Acute) Acute blood loss anemia (Acute) Right upper quadrant abdominal pain (Acute) Gastritis (Acute) Lacerations of multiple sites of leg (Acute) Weakness (Acute) Hypomagnesemia (Acute) Leg pain (Acute) Hypokalemia (Acute) Tobacco use disorder (Acute 01/28/14) Chest pain due to GERD (Acute) Emphysema lung (Acute) Atherosclerosis (Acute) Stenosis of right internal carotid artery (Acute) Macrocytic anemia (Acute) bacitracin (From Neosporin ([id number])) Allergy (Mild, Verified 10/26/23 20:50) localized redness neomycin (From Neosporin ([id number])) Allergy (Mild, Verified 10/26/23 20:50) localized redness polymyxin B (From Neosporin ([id number])) Allergy (Mild, Verified 10/26/23 20:50) localized redness Resuscitation Status Full Code Height 5 ft 8 in Weight 51.2 kg Pharmacy Admission Review Renal Dosing Renal Dosing: BUN 6 mg/dL (7-18) L 12/02/23 06:08 Creatinine 0.9 mg/dL (0.55-1.02) 12/02/23 06:08 Medications needing adjustments: Reviewed (CrCl 47.09 mL/min) List of meds needing interventions: Current medications are okay Anticoagulation Anticoagulation: Hgb 9.5 g/dL (11.2-15.7) L 12/02/23 11:30 Hct 27.6 % (36.0-46.0) L 12/02/23 11:30 Plt Count 170 10^3/uL (130-400) 12/02/23 06:08 INR 1.3 (0.9-1.1) H 12/02/23 11:30 Creatinine 0.9 mg/dL (0.55-1.02) 12/02/23 06:08 DVT Prophylaxis: Reviewed (SCDs - GI bleed, Hgb increased from 8.7 - repeat pending, INR 1.3 - was given IV phytonadione) Opiate Usage Evaluate Pain Scale/Pains Meds: Reviewed (PRN hydromorphone) Scheduled Bowel Reg ordered if on Opiates?: No (PRN Miralax/docusate) Relevant Labs Relevant Labs: Sodium 128 mmol/L (136-145) L 12/02/23 06:08 Potassium 3.0 mmol/L (3.5-5.1) L 12/02/23 06:08 Chloride 94 mmol/L (98-107) L 12/02/23 06:08 Magnesium 2.5 mg/dL (1.8-2.4) H 12/02/23 06:08 Electrolytes, C-Reactive P, ESR: Reviewed (Na 128, K 3 - repleting, Mg 2.5) Cardiac Review Cardiac Review: Troponin I < 50 ng/L (< or =60) 12/01/23 22:00 NT-Pro-B Natriuret Pep 5360 pg/mL (<300) H 12/01/23 19:45 BP, HR, EF%: Reviewed (BP and HR WNL) QTc Review QTc: Reviewed (521 from 12/01/23) IV to PO Switch IV Medications: Reviewed (hydromorphone, ondansetron and pantoprazole - currently NPO) Home Meds Home Med List reviewed: Reviewed Relevent Home Meds Not ordered & why?: loperamide (PRN), omeprazole (has order for pantoprazole) and Stiolto Reached out to provider regarding Stiolto, waiting to hear back Current Meds Current Medication Order Review: Reviewed Pharmacy Antibiotic Review Relevant Labs: Relevant Labs 12/01/23 19:45 Procalcitonin < 0.1
[2023-12-02 14:20] LABS: HGB 10.3 g/dL (11.2-15.7)
[2023-12-02 14:25] LABS: Potassium 3.1 mmol/L (3.5-5.1)
--- NOTE | 2023-12-02 14:27 | PT.INNT ---
PT Notes Visit Reasons: Hypomagnesemia, Gastritis, Generalized weakness... Defer afternoon treat due to absence from floor for medical procedure - see EMR for details.
--- NOTE | 2023-12-02 14:44 | W.PM.ENDDOP ---
Date of service: 12/02/23 Time of Service: 14:44 Endoscopy Report DATE OF PROCEDURE: 12/02/23 PRE-OP DIAGNOSIS: ETOH aabuse/Fe defn anemia POST-OP DIAGNOSIS: other (Portal gastropathy/duodenitis with punctate ulceration/gastritis/small hiatal hernia) SURGEON: Jessenia Damon ANESTHESIA TYPE: General:No Airway ESTIMATED BLOOD LOSS: 1 PATHOLOGY: other COMPLICATIONS: None DISPOSITION: same day PROCEDURE DESCRIPTION: Informed consent was obtained from the pt; explaining the benefits and Risks: bleeding, infections, perforations {which could require surgery or antibiotics and prolonged hospital stay}, or ostomy, and complications of anaesthesia, sara aspiration). The patient was take to the procedure room and placed in a supine position. Monitors were applied and a time out was done. The patients name, date of , procedure type, allergies to medications and metal in their body was reviewed. A bite block was placed and the patient was sedated. Once sedated and comfortable an Olympus gastroscope (see RN notes for scope #) was advanced through the oropharynx which was grossly normal, and passed into the esophagus. The proximal and mid-esophagus were normal. The distal esophagus does not show any: dilation/strictures/varices/erosions or ulcers/bleeding noted. The scope was advanced into the stomach and through the pylorus into the proximal jejunum. A bx is taken for celiac Dx. Biopsies were done of the duodenal bulb. There is extensive duodenitis with punctate ulceration. There is no active or old bleeding noted. The scope was retracted back into the stomach and biopsies were taken of the antrum. There were no ulcers/masses noted. She has moderate portal gastropathy throughout the entirety of the stomach. There is moderate gastritis in the distal third of the stomach. There is no active or old bleeding noted. The scope was retroflexed. The cardia and fundus were noted to be normal. There small sliding type <2cm hiatal hernia noted. The scope was retracted back into the esophagus and biopsies were done of the GE junction (in all 4 quadrants) and distal esophagus (2cm above the GE junction) to rule out Hernandes's. All specimens are retrieved and no bleeding was noted. The Z line was irregular, which may represent hernandes's. The scope was removed and the patient was woken up and taken back to [facility] in stable condition.
[2023-12-02] MEDS: Lactated Ringers 500 ML 30 ML IV (14:50)
--- NOTE | 2023-12-02 15:00 | STOM_PTH ---
PATIENT: Fannie Gallego LOC: [id number] AGE/SX: 63/F ROOM: 229 RE12/02/[address]: Juan Francisco Bennett : 1960 BED: A DIS: 12/05/2023 SPEC #: [id number] RECD: 12/02/23 16:44 STATUS: SOUJoselyn REQ #: [id number] GUERRERO: 12/02/23 15:[address]: Juan Francisco Bennett DEPT: Surgical Specimen RECD BY: Leanna Mcdonnell ENTERED: 12/02/23 16:51 SP TYPE: STOMACH OTHR DR: Rosalinda Leiva RN,Marichuy KEARNEY, MANAGER ARCHITECTURAL Ej,Beatriz Damon,Jessenia Cardona,Yaneth Iyer,Maggi Hoyt Tissues: 1 - BIOPSY BOWEL 2 - BIOPSY BOWEL 3 - STOMACH BIOPSY 4 - STOMACH BIOPSY 5 - ESOPHAGUS BIOPSY 6 - ESOPHAGUS BIOPSY Procedures: GROSS AND MICRO LEVEL 4 Comments: [id number]
[2023-12-02] MEDS: ePHEDrine 25 MG/5 ML Syringe IVP ×2 (15:35→15:52)
--- NOTE | 2023-12-02 16:14 | W.ANESPOSTOP ---
Postoperative Evaluation Date, Time and Location Date Performed: 12/02/23 Time Performed: 16:14 Patient Location: Day Surgery Unit Vital Signs Most Recent Imported Vital Signs: Most Recent Vital Signs Temp Pulse Resp BP Pulse Ox 36.7 C 100 H 21 107/91 H 100 12/02/23 15:55 12/02/23 15:55 12/02/23 15:55 12/02/23 15:55 12/02/23 15:55 Pain Score Most Recent Pain Score: Most Recent Pain Score Pain Level [Bilateral Leg] 10 12/02/23 11:19 Pain Level 3 12/02/23 12:15 Assessment Mental Status: Awake (Alert & Oriented to Patient Baseline) Airway and Respiratory Function: Patent airway with normal (patient baseline) respiratory exam Cardiovascular Function: Hemodynamically Stable Hydration Status: Adequately Hydrated Nausea & Vomiting: No Nausea or Vomiting Pain: Pt. Denies Any Pain Peripheral Nerve Block: Patient did not receive a nerve block
[2023-12-02] MEDS: Sucralfate 1 GM TAB PO ×2 (16:25→23:20)
[2023-12-02] MEDS: Gabapentin 300 MG CAP PO ×2 (16:25→20:33)
[2023-12-02] MEDS: Lactulose 20 GM/30 ML CUP PO (17:05)
[2023-12-02 20:21] LABS: HCT 24.7 % (36.0-46.0)
[2023-12-02 20:24] LABS: HGB 8.3 g/dL (11.2-15.7)
[2023-12-02] MEDS: Midodrine 2.5 MG TAB 5 MG PO (20:32)
[2023-12-03] VITALS (7 sets, daily range): BP systolic 100–118; BP diastolic 65–80; PULSE 75–91; RESP 14–18; TEMP 35.5–36.6; O2SAT 94–100
[2023-12-03] MEDS: Acetaminophen 325 MG TAB PO ×2 (03:28→10:13)
[2023-12-03] MEDS: Nicotine 2 MG LOZG SUC ×2 (03:28→13:07)
[2023-12-03 06:48] LABS: Abs Immature Grans 0.03 10^3/uL (0.0-0.06); Absolute Basophil Count 0.04 10^3/uL (0.0-0.2); Absolute Eosinophil Count 0.11 10^3/uL (0.0-0.7); Absolute Lymphocyte Count 1.55 10^3/uL (1.2-3.4); Absolute Monocyte Count 0.41 10^3/uL (0.1-0.8); Absolute Neutrophil Count 5.19 10^3/uL (1.2-6.7); Basophils % 0.5 %; Eosinophils % 1.5 %; HCT 26.2 % (36.0-46.0); HGB 8.7 g/dL (11.2-15.7); Immature Grans % 0.4 %; Lymphocytes % 21.1 %; MCH 35.1 pg (27.0-33.0); MCHC 33.2 % (32.0-36.0); MCV 106 fL (80-95); MPV 12.3 fL (8.0-11.0); Monocytes % 5.6 %; Neutrophils % 70.9 %; Platelet Count 132 10^3/uL (130-400); RBC 2.48 10^6/uL (3.93-5.22); RDW 15.7 % (11.7-14.6); WBC 7.33 10^3/uL (4.4-10.8)
[2023-12-03 07:15] LABS: ALT 23 U/L (14-59); AST 57 U/L (15-37); Albumin 1.5 g/dL (3.4-5.0); Alkaline Phosphatase 133 U/L (46-116); Bilirubin, Direct 0.3 mg/dL (0.0-0.2); Bilirubin, Total 0.42 mg/dL (0.2-1.0); Total Protein 4.1 g/dL (6.4-8.2)
[2023-12-03 07:26] LABS: ALT 23 U/L (14-59); AST 57 U/L (15-37); Albumin 1.6 g/dL (3.4-5.0); Alkaline Phosphatase 130 U/L (46-116); Anion Gap 7.7 mmol/L (3-11); BUN 4 mg/dL (7-18); Bilirubin, Total 0.43 mg/dL (0.2-1.0); CO2 23.3 mmol/L (21.0-32.0); CREATININE 0.8 mg/dL (0.55-1.02); Calcium 6.8 mg/dL (8.5-10.1); Chloride 102 mmol/L (98-107); Estimated GFR 83.26 (mL/min/1.73m2); GGT 102 U/L (5-55); Glucose 67 mg/dL (74-106); Sodium 133 mmol/L (136-145); Total Protein 4.1 g/dL (6.4-8.2)
[2023-12-03 07:27] LABS: C-Reactive Protein < 0.50 mg/dL (<or=0.5)
[2023-12-03] MEDS: Tiotropium/Olodaterol 10 PUFF INHALER 2 PUFF IH (07:48)
[2023-12-03] MEDS: Midodrine 2.5 MG TAB 5 MG PO ×3 (08:22→19:51)
[2023-12-03] MEDS: Potassium Chloride 20 MEQ TABCR 40 MEQ PO (08:22)
[2023-12-03] MEDS: Thiamine 100 MG TAB 250 MG PO (08:23)
[2023-12-03] MEDS: Normal Saline Flush 10 ML SYR IVP ×3 (08:23→19:52)
[2023-12-03] MEDS: Magnesium Oxide 400 MG TAB PO (08:23)
[2023-12-03] MEDS: Sucralfate 1 GM TAB PO ×2 (08:23→11:09)
[2023-12-03] MEDS: Lactulose 20 GM/30 ML CUP PO (08:23)
[2023-12-03] MEDS: Gabapentin 300 MG CAP PO ×3 (08:23→19:55)
[2023-12-03] MEDS: Multivitamin TAB 1 TAB PO (08:23)
[2023-12-03] MEDS: Potassium Chloride Liquid 20 MEQ PKT 40 MEQ PO (08:30)
[2023-12-03] MEDS: Folic Acid 1 MG TAB 5 MG PO (08:30)
[2023-12-03] MEDS: Pantoprazole 40 MG TABCR PO (08:30)
[2023-12-03] MEDS: POTASSIUM CHLORIDE 20 MEQ/100 ML BAG 50 MEQ IVINF ×2 (08:31→11:11)
--- NOTE | 2023-12-03 11:13 | PT.INTREAT ---
PT Notes Visit Reasons: Hypomagnesemia, Gastritis, Generalized weakness... Inpatient Physical Therapy Treatment Note [facility] Date: 12/03/23 SUBJECTIVE: Johni states that she is feeling much better than she did yesterday. I guess I really needed those IV's. OBJECTIVE: []? VITALS: ? closely monitored by nsg. Therapeutic Activities (30328c9): Direct one-on-one instruction in dynamic activities to improve functional performance. ? BED MOBILITY/TRANSFERS? Supine-sit: S ? Sit-supine: S? Sit-stand: S ? Bed-Chair:SBA? Provided skilled cues and instruction on performance and technique throughout. GAIT? Assistive Device: FWW? Weight bearing:full Assist: SBA? Distance:?30'x2? Therapeutic Exercises (63500a6): Direct one-on-one instruction in therapeutic exercises to develop strength, endurance, range of motion and flexibility. ? Exercises ?seated AP, LAQ, pillow squeeze (ADD) as well as seated marching and hip abd x10 each. Sit to stand x3 from bed.? Provided skilled instruction in proper exercise performance ASSESSMENT:? reports great improvement compared to yesterday. She is reporting feeling much stronger. No noted LOB or SOB during session. Did require reminders for proper breathing techniques during exercise as she tends to hold her breathe. Mild fatigue post ambulation. PLAN: will continue to work on progressing her strength and improving functional mobility as per PT POC. TREATMENT CODE/TIME: 20 min. [id number], [id number] DISCHARGE RECOMMENDATION: home with once medically cleared.
--- NOTE | 2023-12-03 13:04 | PGE_ITS ---
Date of Service Date of service: 12/03/23 Time of Service: 13:05 Assessment and Plan Assessment and plan (1) GI bleeding: Status: Chronic Assessment and plan: Patient presented with hematemesis and melena and was found to have portal gastropathy and duodenitis but no acute bleeding was found on EGD. Beltran no active bleeding was seen on EGD this is the presumed source for blood loss. Dr. Damon is elected not to pursue colonoscopy at this time and this can always be arranged as an outpatient. Patient's had no further hematochezia. Hemoglobin stable overnight at 8.7 g. Patient has not required a transfusion since her admission. Patient has been advised if she wants to prevent further bleeding she needs to quit her alcohol consumption. Patient now on Protonix 40 mg twice a day and Carafate before meals and at bedtime. Blood monitoring decrease to daily Qualifiers: GI bleed type/associated pathology: gastrointestinal hemorrhage with hematemesis Qualified Code(s): K92.0 - Hematemesis (2) Portal hypertensive gastropathy: Status: Acute Assessment and plan: As above (3) Duodenitis without hemorrhage: Status: Acute Assessment and plan: As above (4) Acute blood loss anemia: Status: Acute Assessment and plan: Stable H&H no transfusion has been requiring this admission monitoring decrease to daily (5) Hypokalemia: Status: Acute Assessment and plan: Potassium is 3.0 this morning patient was given both oral and IV supplementation with repeat levels ordered (6) Hypomagnesemia: Status: Acute Assessment and plan: Repleted continue to monitor, patient was placed on supplemental magnesium since she will be on twice daily PPI dosing (7) Hepatic fibrosis: (8) Leg pain: Status: Acute Assessment and plan: Tib-fib x-rays negative for fracture leg pain is secondary to soft tissue trauma from an injury with a TV set Qualifiers: Laterality: bilateral Qualified Code(s): M79.604 - Pain in right leg; M79.605 - Pain in left leg (9) COPD (chronic obstructive pulmonary disease): Status: Chronic Assessment and plan: Not experiencing any acute exacerbation. At this time we will continue her on her home inhaler along with as needed albuterol. Qualifiers: COPD type: chronic bronchitis Chronic bronchitis type: mixed simple and mucopurulent Qualified Code(s): J41.8 - Mixed simple and mucopurulent chronic bronchitis (10) Pulmonary nodule: Assessment and plan: 1.1 cm spiculated mass right upper lobe will need follow-up with pulmonary services for bronchoscopy and biopsy (11) Frequent falls: Assessment and plan: Consult physical therapy to evaluate and treat for generalized weakness and deconditioning. Patient will likely need short-term SNF placement. (12) Weakness: Status: Acute Assessment and plan: Physical therapy currently working with the patient, patient is agreeable to short-term stay at a SNF (13) Contraindication to deep vein thrombosis prophylaxis: Status: Acute Assessment and plan: Enoxaparin was initially ordered by the admitting provider but was never given as it was canceled due to her GI bleeding. Patient now on SCDs (14) Discharge planning issues: Status: Acute Assessment and plan: Patient remains a full code per my discussion with her. Will continue to have discussions with her given her multiple comorbidities and new finding of a right upper lobe mass. Patient will likely need SNF upon discharge. Will get physical therapy to work with her while she is an inpatient. Subjective Subjective Interval history since last seen: Ms Gallego was seen w/ Dr. Pineda, locums surgeon. Patient denies any abdominal pains, She has finally been having bowel movement (liquid, I stopped her lactulose). No nausea. No further GI bleeding. We are going to hold off doing c scope as Dr. Damon feels that her GI bleeding was from portal gastritis and duodenitis. Patient is now on protonix twice a day and carafate. Dr. Cha went over this with her and is signing off for now unless she rebleeds. Fannie is agreeable to seeking SNF for short term reheab. Exam Narrative Exam Narrative: Ms. Gallego is sitting up in her chair she is alert and orient x 3 no acute distress Lungs are clear Heart is regular rate and rhythm Abdomen is protuberant but soft and nontender Lower extremities without peripheral edema Objective Last Vital Signs Temp 36.2 C L 12/03/23 08:13 Pulse 91 H 12/03/23 08:13 Resp 16 12/03/23 08:13 BP 116/68 12/03/23 08:13 Pulse Ox 100 12/03/23 08:13 Laboratory Results - last 24 hr 12/02/23 12/02/23 12/03/23 14:10 20:05 06:37 WBC 7.33 RBC 2.48 L Hgb 10.3 L 8.3 L D 8.7 L Hct 30.0 L 24.7 L 26.2 L MCV 106 H MCH 35.1 H MCHC 33.2 RDW 15.7 H Plt Count 132 MPV 12.3 H Immature Gran % 0.4 Neutrophils % 70.9 Lymphocytes % 21.1 Monocytes % 5.6 Eosinophils % 1.5 Basophils % 0.5 Nucleated RBC % 0.0 Absolute Neutrophils 5.19 Absolute Lymphocytes 1.55 Absolute Monocytes 0.41 Absolute Eosinophils 0.11 Absolute Basophils 0.04 Sodium 133 L Potassium 3.1 L 3.0 L Chloride 102 Carbon Dioxide 23.3 Anion Gap 7.7 BUN 4 L Creatinine 0.8 Est GFR (CKD-EPI 2020) 83.26 Glucose 67 L Calcium 6.8 L Total Bilirubin 0.43 Conjugated Bilirubin GGT AST ALT Alkaline Phosphatase C-Reactive Protein Total Protein Albumin 12/03/23 12/03/23 12/03/23 06:37 06:37 06:37 WBC RBC Hgb Hct MCV MCH MCHC RDW Plt Count MPV Immature Gran % Neutrophils % Lymphocytes % Monocytes % Eosinophils % Basophils % Nucleated RBC % Absolute Neutrophils Absolute Lymphocytes Absolute Monocytes Absolute Eosinophils Absolute Basophils Sodium Potassium Chloride Carbon Dioxide Anion Gap BUN Creatinine Est GFR (CKD-EPI 2020) Glucose Calcium Total Bilirubin 0.42 Conjugated Bilirubin 0.3 H GGT 102 H AST 57 H 57 H ALT 23 23 Alkaline Phosphatase 130 H C-Reactive Protein Total Protein Albumin 12/03/23 12/03/23 12/03/23 06:37 06:37 06:37 WBC RBC Hgb Hct MCV MCH MCHC RDW Plt Count MPV Immature Gran % Neutrophils % Lymphocytes % Monocytes % Eosinophils % Basophils % Nucleated RBC % Absolute Neutrophils Absolute Lymphocytes Absolute Monocytes Absolute Eosinophils Absolute Basophils Sodium Potassium Chloride Carbon Dioxide Anion Gap BUN Creatinine Est GFR (CKD-EPI 2020) Glucose Calcium Total Bilirubin Conjugated Bilirubin GGT AST ALT Alkaline Phosphatase 133 H C-Reactive Protein < 0.50 Total Protein 4.1 L 4.1 L Albumin 1.6 L 1.5 L Time Spent with Patient Time Spent with Patient: 25-34 minutes Time was spent: preparing to see the patient(eg.review tests), ordering medications,tests, procedures, referring, communicating with other health child care provider, indepentently interpreting results, counseling the patient and care coordination
--- NOTE | 2023-12-03 13:43 | PGE_ITS ---
Date of Service Date of service: 12/03/23 Time of Service: 13:43 Assessment and Plan Assessment and plan (1) Gastritis: Status: Acute Assessment and plan: Patient underwent EGD on with Dr. Damon, which showed gastritis and duodenitis without active hemorrhage or evidence of recent hemorrhage. Recommend continuing PPI therapy and carafate, as well as provided counseling to patient to suggest stopping alcohol use. Case discussed with Hospitalist, Dr. Altman. No current general surgery needs at this time. He was in agreement with plans for general surgery to sign off. If further surgical needs develop, they will contact our service and we will be happy to assist where possible. Qualifiers: Gastritis type: alcoholic Chronicity: acute Gastritis bleeding: without bleeding Qualified Code(s): K29.20 - Alcoholic gastritis without bleeding (2) Duodenitis without hemorrhage: Status: Acute Subjective Subjective Patient reports: no new complaints, feels better, pain is less, tolerating liquids well and bowel movement Exam Const General: cooperative, comfortable and no acute distress Eyes Sclera: sclerae normal Resp Effort & Inspection: normal respiratory effort GI Inspection: normal to inspection Palpation: soft, not firm, no guarding, not rigid and nontender Percussion: tympanic to percussion Neuro General: patient alert, patient awake and patient oriented x3 Psych Appearance: grossly normal Objective Last Vital Signs Temp 36.2 C L 12/03/23 08:13 Pulse 91 H 12/03/23 08:13 Resp 16 12/03/23 08:13 BP 116/68 12/03/23 08:13 Pulse Ox 100 12/03/23 08:13 Laboratory Results - last 24 hr 12/02/23 12/02/23 12/03/23 14:10 20:05 06:37 WBC 7.33 RBC 2.48 L Hgb 10.3 L 8.3 L D 8.7 L Hct 30.0 L 24.7 L 26.2 L MCV 106 H MCH 35.1 H MCHC 33.2 RDW 15.7 H Plt Count 132 MPV 12.3 H Immature Gran % 0.4 Neutrophils % 70.9 Lymphocytes % 21.1 Monocytes % 5.6 Eosinophils % 1.5 Basophils % 0.5 Nucleated RBC % 0.0 Absolute Neutrophils 5.19 Absolute Lymphocytes 1.55 Absolute Monocytes 0.41 Absolute Eosinophils 0.11 Absolute Basophils 0.04 Sodium 133 L Potassium 3.1 L 3.0 L Chloride 102 Carbon Dioxide 23.3 Anion Gap 7.7 BUN 4 L Creatinine 0.8 Est GFR (CKD-EPI 2020) 83.26 Glucose 67 L Calcium 6.8 L Total Bilirubin 0.43 Conjugated Bilirubin GGT AST ALT Alkaline Phosphatase C-Reactive Protein Total Protein Albumin Add-On Test Request 12/03/23 12/03/23 12/03/23 06:37 06:37 06:37 WBC RBC Hgb Hct MCV MCH MCHC RDW Plt Count MPV Immature Gran % Neutrophils % Lymphocytes % Monocytes % Eosinophils % Basophils % Nucleated RBC % Absolute Neutrophils Absolute Lymphocytes Absolute Monocytes Absolute Eosinophils Absolute Basophils Sodium Potassium Chloride Carbon Dioxide Anion Gap BUN Creatinine Est GFR (CKD-EPI 2020) Glucose Calcium Total Bilirubin 0.42 Conjugated Bilirubin 0.3 H GGT 102 H AST 57 H 57 H ALT 23 23 Alkaline Phosphatase 130 H C-Reactive Protein Total Protein Albumin Add-On Test Request 12/03/23 12/03/23 12/03/23 06:37 06:37 06:37 WBC RBC Hgb Hct MCV MCH MCHC RDW Plt Count MPV Immature Gran % Neutrophils % Lymphocytes % Monocytes % Eosinophils % Basophils % Nucleated RBC % Absolute Neutrophils Absolute Lymphocytes Absolute Monocytes Absolute Eosinophils Absolute Basophils Sodium Potassium Chloride Carbon Dioxide Anion Gap BUN Creatinine Est GFR (CKD-EPI 2020) Glucose Calcium Total Bilirubin Conjugated Bilirubin GGT AST ALT Alkaline Phosphatase 133 H C-Reactive Protein < 0.50 Total Protein 4.1 L 4.1 L Albumin 1.6 L 1.5 L Add-On Test Request 12/03/23 13:16 WBC RBC Hgb Hct MCV MCH MCHC RDW Plt Count MPV Immature Gran % Neutrophils % Lymphocytes % Monocytes % Eosinophils % Basophils % Nucleated RBC % Absolute Neutrophils Absolute Lymphocytes Absolute Monocytes Absolute Eosinophils Absolute Basophils Sodium Potassium Chloride Carbon Dioxide Anion Gap BUN Creatinine Est GFR (CKD-EPI 2020) Glucose Calcium Total Bilirubin Conjugated Bilirubin GGT AST ALT Alkaline Phosphatase C-Reactive Protein Total Protein Albumin Add-On Test Request TNP Time Spent with Patient Time Spent with Patient: <25 minutes Time was spent: preparing to see the patient(eg.review tests), obtaining and/or reviewing separately otained hiistory, referring, communicating with other health director of career services and counseling the patient
[2023-12-03 13:56] LABS: Ammonia 24 umol/L (11-32)
[2023-12-03] MEDS: Protein Nutritional Supplement 16 GM 1 OUNCE PACKET PO (14:19)
[2023-12-03 14:24] LABS: Potassium 5.4 mmol/L (3.5-5.1)
[2023-12-03] MEDS: IRON SUCROSE COMPLEX 400 MG in Normal Saline 250 ML 100 MG IVPB (14:51)
[2023-12-03] MEDS: HYDROmorphone 2 MG/ML SYR 0.5 MG IVP (20:49)
[2023-12-03] MEDS: Melatonin 3 MG TAB 9 MG PO (23:35)
[2023-12-04 03:28] VITALS: BP 106/76; PULSE 87; RESP 18; TEMP 36.8; O2SAT 95
[2023-12-04 06:46] LABS: Abs Immature Grans 0.06 10^3/uL (0.0-0.06); Absolute Basophil Count 0.04 10^3/uL (0.0-0.2); Absolute Eosinophil Count 0.01 10^3/uL (0.0-0.7); Absolute Lymphocyte Count 2.02 10^3/uL (1.2-3.4); Absolute Monocyte Count 0.45 10^3/uL (0.1-0.8); Absolute Neutrophil Count 11.85 10^3/uL (1.2-6.7); Basophils % 0.3 %; Eosinophils % 0.1 %; HCT 32.8 % (36.0-46.0); HGB 10.6 g/dL (11.2-15.7); Immature Grans % 0.4 %; MCH 35.3 pg (27.0-33.0); MCHC 32.3 % (32.0-36.0); MCV 109 fL (80-95); MPV 12.2 fL (8.0-11.0); Monocytes % 3.1 %; Neutrophils % 82.1 %; Nucleated RBC 0.2 % (0.0-0.3); Platelet Count 161 10^3/uL (130-400); RDW 16.5 % (11.7-14.6); RDW-SD 63.4 fL; WBC 14.43 10^3/uL (4.4-10.8)
[2023-12-04 06:59] LABS: Ammonia 38 umol/L (11-32); Magnesium 1.5 mg/dL (1.8-2.4)
[2023-12-04 07:16] LABS: ALT 21 U/L (14-59); AST 49 U/L (15-37); Albumin 1.4 g/dL (3.4-5.0); Alkaline Phosphatase 130 U/L (46-116); Anion Gap 6.5 mmol/L (3-11); BUN 7 mg/dL (7-18); Bilirubin, Total 0.58 mg/dL (0.2-1.0); CO2 20.5 mmol/L (21.0-32.0); CREATININE 0.8 mg/dL (0.55-1.02); Calcium 7.1 mg/dL (8.5-10.1); Chloride 103 mmol/L (98-107); Estimated GFR 83.26 (mL/min/1.73m2); Glucose 79 mg/dL (74-106); Potassium 5.7 mmol/L (3.5-5.1); Sodium 130 mmol/L (136-145); Total Protein 3.8 g/dL (6.4-8.2)
[2023-12-04] MEDS: Acetaminophen 325 MG TAB PO ×2 (07:30→14:45)
[2023-12-04 08:30] VITALS: O2SAT 90
[2023-12-04] MEDS: Tiotropium/Olodaterol 10 PUFF INHALER 2 PUFF IH (08:30)
[2023-12-04] MEDS: Sucralfate 1 GM TAB PO ×3 (08:58→17:37)
[2023-12-04] MEDS: Pantoprazole 40 MG TABCR PO ×2 (09:00→19:43)
[2023-12-04] MEDS: Magnesium Oxide 400 MG TAB PO (09:02)
[2023-12-04] MEDS: Thiamine 100 MG TAB 250 MG PO (09:06)
[2023-12-04] MEDS: Folic Acid 1 MG TAB 5 MG PO (09:07)
[2023-12-04] MEDS: Gabapentin 300 MG CAP PO ×3 (09:08→19:43)
[2023-12-04] MEDS: Midodrine 2.5 MG TAB 5 MG PO ×3 (09:08→19:42)
[2023-12-04] MEDS: Normal Saline Flush 10 ML SYR IVP ×6 (09:10→19:44)
[2023-12-04] MEDS: Multivitamin TAB 1 TAB PO (09:13)
[2023-12-04 09:31] VITALS: BP 90/52; PULSE 89; RESP 22; TEMP 36.3; O2SAT 89
--- NOTE | 2023-12-04 11:44 | PT.INTREAT ---
PT Notes Visit Reasons: Hypomagnesemia, Gastritis, Generalized weakness... Inpatient Physical Therapy Treatment Note [facility] Date: 12/03/23 SUBJECTIVE: Tugi states that she is feeling better with exception of her belly feeling heavy OBJECTIVE: []? VITALS: ? closely monitored by nsg. ? BED MOBILITY/TRANSFERS? Supine-sit: S ? Sit-supine: S? Sit-stand: S ? Bed-Chair:SBA? Provided skilled cues and instruction on performance and technique throughout. ? Therapeutic Exercises ([id number]): Direct one-on-one instruction in therapeutic exercises to develop strength, endurance, range of motion and flexibility. ? Exercises ?held on ex due to increased intense pain in her abdominal region which occured after ambulation. GAIT? Assistive Device: FWW? Weight bearing:full Assist: SBA? Distance:?60'x2? ASSESSMENT:? significant lower abdominal pain noted post ambulation. Nurse reports that she has had many meds for BM and she also had her catheter removed yesterday. She has not voided in 15 hours. She reported feeling a little better after sitting in recliner with warm pad on belly. They are aware of the increased pain and are monitoring it. PLAN: will continue to work on progressing her strength and improving functional mobility as per PT POC. TREATMENT CODE/TIME: 20 min. [id number] DISCHARGE RECOMMENDATION: home with once medically cleared.
[2023-12-04] MEDS: IRON SUCROSE COMPLEX 400 MG in Normal Saline 250 ML 100 MG IVPB (12:22)
[2023-12-04 12:44] VITALS: BP 108/65; PULSE 84; RESP 16; TEMP 36.6; O2SAT 89
[2023-12-04] MEDS: Ondansetron 4 MG/2 ML VIAL IVP (14:45)
--- NOTE | 2023-12-04 14:56 | W.PM.PROGNOT ---
Date of Service Date of service: 12/04/23 Time of Service: 14:56 Assessment and Plan Assessment and plan (1) GI bleeding: Status: Chronic Assessment and plan: presented with hematemesis and melena and was found to have portal gastropathy and duodenitis but no acute bleeding on EGD. no active bleeding was seen on EGD this is the presumed source for blood loss. Dr. Damon elected not to pursue colonoscopy at this time and this can always be arranged as an outpatient. Patient's had no further hematochezia. Hemoglobin stable and up to 10.6 Patient has not required a transfusion since her admission. Patient has been advised if she wants to prevent further bleeding she needs to quit her alcohol consumption. Patient now on Protonix 40 mg twice a day and Carafate before meals and at bedtime. Qualifiers: GI bleed type/associated pathology: gastrointestinal hemorrhage with hematemesis Qualified Code(s): K92.0 - Hematemesis (2) Portal hypertensive gastropathy: Status: Acute Assessment and plan: As above (3) Duodenitis without hemorrhage: Status: Acute Assessment and plan: As above (4) Acute blood loss anemia: Status: Acute Assessment and plan: Stable H&H no transfusion has been requiring this admission (5) Hypokalemia: Status: Acute Assessment and plan: potassium elevated at 5.7 after receiving repletion. stop supplemental K (6) Hypomagnesemia: Status: Acute Assessment and plan: Repleted continue to monitor, patient was placed on supplemental magnesium since she will be on twice daily PPI dosing (7) Hepatic fibrosis: (8) Leg pain: Status: Acute Assessment and plan: Tib-fib x-rays negative for fracture leg pain is secondary to soft tissue trauma from an injury with a TV set Qualifiers: Laterality: bilateral Qualified Code(s): M79.604 - Pain in right leg; M79.605 - Pain in left leg (9) COPD (chronic obstructive pulmonary disease): Status: Chronic Assessment and plan: Not experiencing any acute exacerbation. At this time we will continue her on her home inhaler along with as needed albuterol. Qualifiers: COPD type: chronic bronchitis Chronic bronchitis type: mixed simple and mucopurulent Qualified Code(s): J41.8 - Mixed simple and mucopurulent chronic bronchitis (10) Pulmonary nodule: Assessment and plan: 1.1 cm spiculated mass right upper lobe will need follow-up with pulmonary services for bronchoscopy and biopsy (11) Frequent falls: Assessment and plan: Consult physical therapy to evaluate and treat for generalized weakness and deconditioning. Patient will likely need short-term SNF placement. (12) Weakness: Status: Acute Assessment and plan: Physical therapy currently working with the patient, patient is agreeable to short-term stay at a SNF (13) Contraindication to deep vein thrombosis prophylaxis: Status: Acute Assessment and plan: Enoxaparin was initially ordered by the admitting provider but was never given as it was canceled due to her GI bleeding. Patient now on SCDs (14) Discharge planning issues: Status: Acute Assessment and plan: Patient remains a full code Will continue to have discussions with her given her multiple comorbidities and new finding of a right upper lobe mass. home with services vs rehab. continue physical therapy discussed with DR Haas Subjective Subjective Patient reports: no new complaints, feels better, tolerating liquids well, tolerating a regular diet and afebrile Exam Const General: cooperative, comfortable and no acute distress Orientation: alert, awake and oriented x3 HENHI Head: normal to inspection, normocephalic and atraumatic Mouth: moist mucous membranes abnormal (Slightly dry) Eyes General: appearance normal, both eyes and all related structures Alignment and Position: alignment normal Conjunctivae: conjunctivae normal Sclera: sclerae normal EOM: EOM intact bilaterally Neck Neck: normal visual inspection and full ROM Resp Effort & Inspection: normal respiratory effort and able to speak in complete sentences Auscultation: clear to auscultation bilaterally Cardio Rate: regular rate Rhythm: regular rhythm GI Palpation: soft, not firm, no guarding and nontender Auscultation: normal bowel sounds Back/Spine/Pelvis Back: No back tenderness Skin Rashes: rashes noted Neuro General: patient alert, patient awake, patient oriented x3 and moves all extremities Extrem General: normal to inspection, full ROM and no pedal edema Psych Appearance: grossly normal Mental Status: mental status grossly normal Speech and Movement: speech and movement normal Mood: congruent mood Affect: normal affect Objective Last Vital Signs Temp 36.6 C 12/04/23 12:44 Pulse 84 12/04/23 12:44 Resp 16 12/04/23 12:44 BP 108/65 12/04/23 12:44 Pulse Ox 89 L 12/04/23 12:44 Laboratory Results - last 24 hr 12/04/23 06:35 WBC 14.43 H RBC 3.00 L Hgb 10.6 L Hct 32.8 L MCV 109 H MCH 35.3 H MCHC 32.3 RDW 16.5 H Plt Count 161 MPV 12.2 H Immature Gran % 0.4 Neutrophils % 82.1 Lymphocytes % 14.0 Monocytes % 3.1 Eosinophils % 0.1 Basophils % 0.3 Nucleated RBC % 0.2 Absolute Neutrophils 11.85 H Absolute Lymphocytes 2.02 Absolute Monocytes 0.45 Absolute Eosinophils 0.01 Absolute Basophils 0.04 Sodium 130 L Potassium 5.7 H Chloride 103 Carbon Dioxide 20.5 L Anion Gap 6.5 BUN 7 Creatinine 0.8 Est GFR (CKD-EPI 2020) 83.26 Glucose 79 Calcium 7.1 L Magnesium 1.5 L Total Bilirubin 0.58 AST 49 H ALT 21 Alkaline Phosphatase 130 H Ammonia 38 H Total Protein 3.8 L Albumin 1.4 L Time Spent with Patient Time Spent with Patient: 35-49 minutes Time was spent: preparing to see the patient(eg.review tests), obtaining and/or reviewing separately otained hiistory, ordering medications,tests, procedures, indepentently interpreting results and counseling the patient
[2023-12-04 16:00] VITALS: BP 108/65; PULSE 84; RESP 18; TEMP 36.6; O2SAT 89
[2023-12-04 16:10] LABS: Potassium 5.5 mmol/L (3.5-5.1)
--- NOTE | 2023-12-04 19:19 | DI.RAD_ITS ---
Exam(s) XR ABDOMEN FLAT UPRIGHT EXAM: XR ABDOMEN FLAT UPRIGHT CLINICAL HISTORY: abd pain. TECHNIQUE: 2D digital imaging was performed. COMPARISON: CT CT CHEST PE CTA from 11/25/2023 FINDINGS: Two views-supine and upright There is infiltrate in the left lung base and moderate sized left pleural effusion which was not evid ent on CT scan of 11/25/2023. Small amount of right pleural fluid noted. Calcified mitral valve jared ulus noted. Abdominal aorta is calcified. There is ORIF hardware across a left hip intertrochanteric fracture, There are air-filled dilated bowel loops in the abdomen without typical appearance of obstruction and no free air seen. Probable I ileus. Stomach is also slightly distended with air. There is a E 6 mm calcification slightly right of center at the L2 level. There is possibly that thi s may represent a urinary tract calculus. Other calculus seen on the opposite-left side which may be in the kidney. Only vascular calcifications noted in the pelvis. IMPRESSION: Highly is pattern. Given the calcified appearance of the abdominal aorta cannot exclude possibility of ischemic bowel. Bilateral calcification as described above. Correlate with any urinary tract symptoms recommended. There is significant infiltrate and pleural effusion in the left lung base which was not evident on t he chest CT scan of 11/25/2023. DATA REPOSITORY: RADIATION DOSE DELIVERED:
[2023-12-04] MEDS: Melatonin 3 MG TAB 9 MG PO (19:43)
[2023-12-04] MEDS: Protein Nutritional Supplement 16 GM 1 OUNCE PACKET PO (19:43)
[2023-12-04 20:15] VITALS: BP 98/66; PULSE 90; RESP 18; TEMP 36.4; O2SAT 96
--- NOTE | 2023-12-04 20:44 | DI.VRAD_ITS ---
PROCEDURE INFORMATION: Exam: XR Abdomen Exam date and time: 12/04/2023 6:38 PM Age: 63 years old Clinical indication: Abdominal pain; Generalized; Patient HX: Abd pain TECHNIQUE: Imaging protocol: Radiologic exam of the abdomen. Views: 2 Views. Upright and supine views. COMPARISON: CT CHEST PE ABD PELVIS W 12/01/2023 10:38 PM FINDINGS: Pleural spaces: Small left pleural effusion with atelectasis. Gastrointestinal tract: There are scattered air-fluid levels on the upright exam. Gas is present in small and large bowel. There is prominent central gas collection, possibly distended stomach. Intraperitoneal space: Normal. No free air. Bones/joints: Left dynamic hip screw noted with ununited fracture of the lesser trochanter. IMPRESSION: Nonspecific bowel pattern. Suspect ileus. Pattern not typical for obstruction. Dictated and Authenticated by: Tea Acevedo MD. Ordering:LURDES Huerta MD
[2023-12-05 00:40] VITALS: BP 124/79; PULSE 84; RESP 18; TEMP 36.5
[2023-12-05] MEDS: Acetaminophen 325 MG TAB PO ×2 (01:26→08:07)
[2023-12-05] MEDS: HYDROmorphone 2 MG/ML SYR 0.5 MG IVP ×2 (03:46→08:11)
[2023-12-05] MEDS: Normal Saline Flush 10 ML SYR IVP ×2 (03:47→08:09)
[2023-12-05 04:19] VITALS: BP 102/60; PULSE 100; RESP 18; TEMP 36.6; O2SAT 94
[2023-12-05] MEDS: Tiotropium/Olodaterol 10 PUFF INHALER 2 PUFF IH (07:52)
[2023-12-05 07:54] VITALS: O2SAT 93
[2023-12-05 08:00] VITALS: BP 110/70; PULSE 107; RESP 22; TEMP 36.2; O2SAT 91
[2023-12-05] MEDS: Gabapentin 300 MG CAP PO (08:07)
[2023-12-05] MEDS: Thiamine 100 MG TAB 250 MG PO (08:08)
[2023-12-05] MEDS: Folic Acid 1 MG TAB 5 MG PO (08:08)
[2023-12-05] MEDS: Multivitamin TAB 1 TAB PO (08:08)
[2023-12-05] MEDS: Sucralfate 1 GM TAB PO (08:09)
[2023-12-05] MEDS: Nicotine 2 MG LOZG SUC (09:11)
--- NOTE | 2023-12-05 09:58 | W.NUTCONSULT ---
Date of service: 12/05/23 Time of Service: 09:58 Nutritional Consult ASSESSMENT: Pt admitted from ER 12/02/23 with weakness, SOB and reports of inability to get up and do anything for herself. Pt anemic/blood loss anemia and hyponatremic, hypokalemic. Was NPO and had GI evaluation and found to have duodenitis without hemorrhage and portal hypertensive gastropathy. She has wound to RLE. Hx of COPD with current tobacco use and etoh abuse. At visit pt reports 8lb weight loss x 2 weeks with dark/runny stools and some vomiting. Electrolyte imbalances, dehydration and anemia being addressed clinically. Pt receiving folic acid and thiamine along with MVI. Liquid protein concentrate ordered TID. PT with low po intake at meals - mostly 25% or less. pt weight history shows pretty consistent weight at 42-56kg over the last 8 years - she is currently towards the high end of this weight range. Pt offered ONS for nutrition support of micro and macronutrient intake and relayed that she does not like the regular ensure types of ONS that are thick and milk based, but open to try boost breeze clear liquid ONS along with the protein concentrate ordered. Estimated energy needs : 1400kcals, 66-82g protein, 1400mL fluid NUTRITIONAL DIAGNOSIS: Involuntary weight loss (NC-3.2) related to deteriorated physical condition, etoh abuse, comorbidities such as COPD increasing her metabolic burden, as evidenced by reported 8lb wt loss over the last 2weeks with demonstrated low po intake this admission. INTERVENTION: pt educated on high kcal/protein menu choices and encouraged to avoid water with meals to avoid early fullness. PT educated on lower residue diet until tolerated, then working to increase fiber slowly to goal of 20g fiber minimum per day PT ordered for liquid protein TID for daily 45g protein PT receiving boost breeze at breakfast and dinner meals, which provide additional 18g protein and 500kcals per day MONITORING AND EVALUATION: will monitor po intake, labs, weight pt offered card to contact for outpatient support in meeting her nutrition needs Time Spent in Nutritional Counseling and Treatment: 15 min
[2023-12-05 11:14] VITALS: BP 111/69; PULSE 89; RESP 18; TEMP 36.7; O2SAT 92
[2023-12-05 11:53] VITALS: BP 108/73; RESP 13; TEMP 36.8; O2SAT 74
--- NOTE | 2023-12-05 11:53 | W.PM.PROGNOT ---
Date of Service Date of service: 12/05/23 Time of Service: 11:53 Assessment and Plan Assessment and plan (1) GI bleeding: Status: Chronic Assessment and plan: presented with hematemesis and melena and was found to have portal gastropathy and duodenitis but no acute bleeding on EGD. no active bleeding was seen on EGD this is the presumed source for blood loss. Dr. Damon elected not to pursue colonoscopy at this time and this can always be arranged as an outpatient. Patient's had no further hematochezia. Hemoglobin stable and up to 10.6 Patient has not required a transfusion since her admission. Patient has been advised if she wants to prevent further bleeding she needs to quit her alcohol consumption. Patient now on Protonix 40 mg twice a day and Carafate before meals and at bedtime. Qualifiers: GI bleed type/associated pathology: gastrointestinal hemorrhage with hematemesis Qualified Code(s): K92.0 - Hematemesis (2) Portal hypertensive gastropathy: Status: Acute Assessment and plan: As above (3) Duodenitis without hemorrhage: Status: Acute Assessment and plan: As above (4) Acute blood loss anemia: Status: Acute Assessment and plan: Stable H&H no transfusion has been requiring this admission (5) Hypokalemia: Status: Acute Assessment and plan: potassium elevated at 5.7 after receiving repletion. stop supplemental K (6) Hypomagnesemia: Status: Acute Assessment and plan: Repleted continue to monitor, patient was placed on supplemental magnesium since she will be on twice daily PPI dosing (7) Hepatic fibrosis: (8) Leg pain: Status: Acute Assessment and plan: Tib-fib x-rays negative for fracture leg pain is secondary to soft tissue trauma from an injury with a TV set Qualifiers: Laterality: bilateral Qualified Code(s): M79.604 - Pain in right leg; M79.605 - Pain in left leg (9) COPD (chronic obstructive pulmonary disease): Status: Chronic Assessment and plan: Not experiencing any acute exacerbation. At this time we will continue her on her home inhaler along with as needed albuterol. Qualifiers: COPD type: chronic bronchitis Chronic bronchitis type: mixed simple and mucopurulent Qualified Code(s): J41.8 - Mixed simple and mucopurulent chronic bronchitis (10) Pulmonary nodule: Assessment and plan: 1.1 cm spiculated mass right upper lobe will need follow-up with pulmonary services for bronchoscopy and biopsy (11) Frequent falls: Assessment and plan: Consult physical therapy to evaluate and treat for generalized weakness and deconditioning. Patient will likely need short-term SNF placement. (12) Weakness: Status: Acute Assessment and plan: Physical therapy currently working with the patient, patient is agreeable to short-term stay at a SNF (13) Contraindication to deep vein thrombosis prophylaxis: Status: Acute Assessment and plan: Enoxaparin was initially ordered by the admitting provider but was never given as it was canceled due to her GI bleeding. Patient now on SCDs (14) Discharge planning issues: Status: Acute Assessment and plan: Patient remains a full code Will continue to have discussions with her given her multiple comorbidities and new finding of a right upper lobe mass. home with services vs rehab. continue physical therapy discussed with DR Haas Exam Narrative Exam Narrative: Constitutional The patient is sitting in chair/ lying in bed comfortable and cooperative during the interview. The patient is well groomed without acute distress and has average body habitus/is obese/ is thin. HENMT: Head is atraumatic, normocephalic, no lymphadenopathy. Facial structures with normal appearance Eyes: Well aligned, intact ROM Neck: Normal ROM, no meningeal signs Neuro:alert and oriented to self, person, place time and situation. No neurological focal deficit, PERRLA Chest:Chest is symmetrical and normal appearance Resp: Normal respiratory pattern, speaks in full sentences, unlabored breathing, clear lung bilaterally Cardio: regular rhythm, S1, S2, no murmur, capillary refill<3 sec., bilateral radial and dorsalis pedis pulses are positive, palpable GI: Abdomen is not distended, soft and non tender, bowel sounds are present : Negative Costovertebral angle tenderness, no bladder distension Back/spine/Pelvis: No back tenderness, normal alignment Integumentary: No skin lesions or rash Extremities: strength 5/5 to bilateral lower and upper extremities Psych: RASS 0, congruent mood and normal affect. Objective Last Vital Signs Temp 36.7 C 12/05/23 11:14 Pulse 89 12/05/23 11:14 Resp 18 12/05/23 11:14 BP 111/69 12/05/23 11:14 Pulse Ox 92 12/05/23 11:14 Laboratory Results - last 24 hr 12/04/23 15:57 Potassium 5.5 H
[2023-12-05 12:34] LABS: Abs Immature Grans 0.13 10^3/uL (0.0-0.06); Absolute Basophil Count 0.05 10^3/uL (0.0-0.2); Absolute Eosinophil Count 0.02 10^3/uL (0.0-0.7); Absolute Lymphocyte Count 1.22 10^3/uL (1.2-3.4); Basophils % 0.3 %; Eosinophils % 0.1 %; HCT 32.8 % (36.0-46.0); HGB 10.8 g/dL (11.2-15.7); Immature Grans % 0.8 %; Lymphocytes % 7.3 %; MCH 35.3 pg (27.0-33.0); MCHC 32.9 % (32.0-36.0); MCV 107 fL (80-95); MPV 12.3 fL (8.0-11.0); Monocytes % 4.1 %; Neutrophils % 87.4 %; Nucleated RBC 0.2 % (0.0-0.3); Platelet Count 225 10^3/uL (130-400); RBC 3.06 10^6/uL (3.93-5.22); RDW 17.2 % (11.7-14.6); RDW-SD 67.5 fL; WBC 16.67 10^3/uL (4.4-10.8)
[2023-12-05 12:45] LABS: Anion Gap 7.4 mmol/L (3-11); BUN 6 mg/dL (7-18); CO2 21.6 mmol/L (21.0-32.0); CREATININE 0.9 mg/dL (0.55-1.02); Calcium 7.9 mg/dL (8.5-10.1); Chloride 98 mmol/L (98-107); Estimated GFR 72.28 (mL/min/1.73m2); Glucose 86 mg/dL (74-106); Potassium 4.6 mmol/L (3.5-5.1); Sodium 127 mmol/L (136-145)
[2023-12-05 12:58] LABS: Absolute Monocyte Count 0.68 10^3/uL (0.1-0.8); Absolute Neutrophil Count 14.57 10^3/uL (1.2-6.7)
[2023-12-05 12:59] LABS: Basophilic Stippling Present; Macrocytosis 1+; Polychromasia Present
--- NOTE | 2023-12-05 13:31 | OT.INNT ---
Occupational Therapy Notes 12/05/23 OT consult received and pts chart was reviewed, OT attempted to consult with pt and was informed that pt has left AMA. Beatriz Pagan, OTR/L
--- NOTE | 2023-12-05 13:59 | PT.INTREAT ---
PT Notes Visit Reasons: Hypomagnesemia,Gastritis,Generalized Weakness with Inpatient Physical Therapy Treatment Note [facility] Date: 12/05/23 SUBJECTIVE: Bonifacio states that she is struggling with vomiting today, although doesn't feel particularly bad. She is agreeable to walking, but nothing more. OBJECTIVE: ? BED MOBILITY/TRANSFERS? Supine-sit: independent? Sit-supine: independent ? Sit-stand: independent ? Bed-Chair:SBA with FWW ? Provided skilled cues and instruction on performance and technique throughout. ? Therapeutic Exercises ([id number]): Direct one-on-one instruction in therapeutic exercises to develop strength, endurance, range of motion and flexibility. ? GAIT? Assistive Device: FWW? Weight bearing:full Assist: SBA? Distance:?50'x1? ? Deviation: upon return to room, patient requests to sit. She vomits 2x. Nursing notified. ? ASSESSMENT:? Demonstrating good safety, although with limitations in activity tolerance due to vomiting. PLAN: Continue. TREATMENT CODE/TIME: 10 min. [id number] DISCHARGE RECOMMENDATION: home with HH once medically cleared.
--- NOTE | 2023-12-05 16:19 | PDOC.CMPRO ---
Date of service: 12/05/23 Time of Service: 16:19 Care Management Progress Note Progress Note Text Progress Note Text: Fannie left AMA today, after several staff members discussed with her the risks/benefits of leaving vs remaining hospitalized. She requested to leave, paperwork was signed, and she transported via [facility] bus. SDOH(Care Management) Screening Will the Patient Participate in the Screening?: Yes Do you worry about having a steady place to live?: yes Problems where you live: no known problems In the past 12 months, have you had to go without electric, gas, oil or water in your home?: no Have you or anyone in your house had to go without enough food to eat?: no Has lack of transportation kept you from medical appointments or from doing things needed for daily living?: yes Has anyone in your support network made you feel unsafe for any reason?: no Social Determinants of Health Comments(SDOH Details): pt needs help getting groceries. she reports she cannot get her doors open to apartment. Health Related Social Needs Health related social needs: housing instability, housed, with risk of homelessness(Z59.811) and transportation insecurity(Z59.82)
--- NOTE | 2023-12-05 17:20 | W.PM.DS.N ---
Date of service: 12/05/23 Time of Service: 17:20 DS: Diagnosis Discharge Diagnosis (1) GI bleeding: (2) Portal hypertensive gastropathy: Status: Acute (3) Duodenitis without hemorrhage: Status: Acute (4) Acute blood loss anemia: Status: Acute (5) Hypokalemia: (6) Hypomagnesemia: Status: Acute (7) Hepatic fibrosis: (8) Leg pain: (9) COPD (chronic obstructive pulmonary disease): Status: Chronic (10) Pulmonary nodule: (11) Frequent falls: (12) Weakness: Status: Acute (13) Contraindication to deep vein thrombosis prophylaxis: Status: Acute Discharge Plan Disposition Patient Disposition: Against Medical Advice Condition: Improving Discharge Details Reason For Visit: Hypomagnesemia,Gastritis,Generalized Weakness with Admit Date/Time: 12/02/23 01:18 Admit Provider: Juan Francisco Bennett Attending Provider: Juan Francisco Bennett Primary Care Provider: MARIANO KEARNEY [facility] Hospital Course: This 64-year-old female patient living alone with severe debilitation by or lifestyle habits including drinking alcohol, smoking tobacco and poor nutritional intake presented to the ED at [facility] on 12/01/2023 for evaluation of weakness, falling, recent laceration over her legs. The patient has a past medical history of COPD, electrolyte abnormalities, EtOH abuse. On arrival the patient complained of generalized weakness and shortness of breath starting about a month prior to presentation with multiple evaluations without any resolution of the problem. EKG in the ED showed sinus tachycardia with heart rate of 105 with prolonged QTc which was comparable to her previous EKG. The patient was unable to stand or take care of herself on presentation and required admission to the medical surgical floor for gentle rehydration and further evaluation for abdominal symptoms such as nausea and vomiting with possible gastritis on CT imaging. Other significant findings in the ED are for low calcium, low sodium, low magnesium, and repletion was ordered. BNP was 5360. Upon findings of heme positive stool in the setting of reported hematemesis was started on Protonix 40 mg IV and received ondansetron as well. Magnesium supplementation was initiated. During the stay, hemoglobin dropped from to 8.7 g overnight without overt hematochezia or hematemesis. Surgery consult was initiated. Surgery elected to complete an EGD with findings of extensive duodenitis with punctate ulceration with moderate gastritis in the distal third of the stomach; multiple biopsies were taken. The patient is to have a colonoscopy as an outpatient as per surgeon. Patient was advised to prevent further bleeding she would need to quit alcohol consumption. Protonix IV every 12 hours and Carafate before meals and at bedtime were ongoing. The patient did not have any other episode of hematemesis. No further hematochezia or melena were reported. Today the patient stated that she was going to go home despite being advised that it would be AGAINST MEDICAL ADVICE. The patient stated that she wanted to go smoke and remain evasive when asked when was the last drink; patient stated I do not know and I do not keep count of how much I drink. As reported by nursing the patient also stated that she wanted to go home and asked to drink. Patient again advised that blood work results were not ready and that going home at this time would not only be AGAINST MEDICAL ADVICE but unsafe due to potential low levels of electrolytes and other pending results. Patient stated I am going home no matter what. Patient left AGAINST MEDICAL ADVICE. Discussed with Dr. Haas Home Meds and New Rx's Prescriptions: No Action ipratropium-albuterol 0.5 mg-3 mg(2.5 mg base)/3 mL solution for nebulization 3 ml inhalation Q4H PRN (Reason: wheezing) Qty: 540 8RF albuterol sulfate 90 mcg/actuation HFA aerosol inhaler 2 puff inhalation Q6H PRN (Reason: shortness of breath or wheezing) Qty: 8.5 12RF thiamine HCl (vitamin B1) 250 mg tablet 250 mg PO DAILY gabapentin 300 mg capsule 300 mg PO TID Stiolto Respimat 2.5-2.5 mcg/actuation mist 2 puff inhalation Q24H Qty: 4 12RF loperamide [Imodium A-D] 1 mg/7.5 mL liquid 2 mg PO Q1-4H PRNQty: 120 0RF Rx Instructions: administer after each loose stool until symptoms controlled; do not exceed 16 mg per 24 hrs multivitamin [Multiple Vitamins] Tablet 1 tab PO DAILY Qty: 30 0RF omeprazole 40 mg capsule,delayed release(DR/EC) 40 mg PO DAILY potassium chloride [Klor-Con M20] 20 mEq Tablet,Er Particles/Crystals 40 meq PO DAILY Qty: 90 0RF magnesium oxide 400 mg (241.3 mg magnesium) Tablet 400 mg PO DAILY Qty: 90 0RF nicotine (polacrilex) 2 mg Lozenge 2 mg SUC Q2H PRN PRNQty: 120 3RF hydrocortisone 2.5 % cream 1 applic TOPICAL DAILY Patient Comments: APPLY TAKE OAA TWO TIMES A DAY NEEDED FOR 14 DAYS prednisone 20 mg tablet 20 mg PO DAILY Qty: 4 0RF Discharge Orders Discharge Orders: Discharge Order (Routine); Ordered 12/05/23 Ordered By: Angela Gaming Discharge Data Discharge Date/Time-TO BE ENTERED AT DEPARTURE: 12/05/23 13:11 DS: Summary Time Spent with Patient providing and/or coordinating discharge services: Greater than 30 minutes Status at Discharge Functional status at discharge: wheelchair bound Overall status at discharge: patient is not back to baseline Mental Status: other Speech and Movement: agitated Mood: anxious mood, irritable mood and other Affect: labile affect Quality:SDOH Health Related Social Needs: Health related social needs risk of homeless, transpo insecurity Exam Narrative Exam Narrative: Constitutional Neuro:alert and oriented to self and time and situation. No neurological focal deficit Resp:Clear lung bilaterally Cardio: regular rhythm, S1, S2, positive pulses to all ext. GI: Abdomen is not distended, soft and non tender, bowel sounds are present : Negative Costovertebral angle tenderness, no bladder distension Back/spine/Pelvis: No back tenderness, normal alignment Integumentary: DCI dry gauze dressing to legs ( the patient mentioned injury her legs [employer]) Extremities: strength 5/5 to bilateral lower and upper extremities Psych: RASS 1, anxious -irritable mood and agitated affect. Psych Mental Status: other Speech and Movement: agitated Mood: anxious mood, irritable mood and other Affect: labile affect DS: Data Vitals/I&O Vitals and I&O: Vital Signs Temperature 36.8 C 12/05/23 11:53 Temperature Source Tympanic 12/05/23 11:14 Pulse 89 12/05/23 11:14 Pulse Rhythm Regular 12/05/23 08:00 Pulse 86 12/02/23 01:40 Respiratory Rate 13 12/05/23 11:53 Respiratory Effort Normal, Non-Labored 12/05/23 08:00 Respiratory Depth Normal 12/05/23 08:00 Respiratory Pattern Normal 12/05/23 08:00 Blood Pressure 108/73 12/05/23 11:53 Blood Pressure Mean 114 12/02/23 01:32 Blood Pressure Position Sitting 12/01/23 19:05 Pulse Oximetry 74 L 12/05/23 11:53 Respiratory End-tidal CO2 23 12/02/23 15:13 Oxygen Delivery Method Room Air 12/05/23 11:53 Oxygen Flow Rate 0 12/05/23 11:53 Pain Level 10 12/05/23 11:53 Comment Unable to obtain accurate O2 with finger pulse oximeter. Used an ear lobe O2 unit from [facility]. 12/04/23 12:44 Intake & Output 12/04/23 12/05/23 12/05/23 23:59 11:59 23:59 Intake Total 270 / 780 260 / 260 Output Total 221 / 221 225 / 225 Balance 49 / 559 35 / 35 Weight 55 kg Intake: IV 270 / 280 20 / 20 Oral 240 / 240 Output: Urine 200 / 200 225 / 225 Post Void Residual Other: Urine Color Dark Marlene Light Marlene Urine Appearance Clear Sediment Urine Odor Strong Strong Voiding Methods Bedside Commode Bedside Commode Data Completed and Pending Labs on day of discharge: Labs from last 24 hours 12/05/23 12:15 WBC 16.67 H RBC 3.06 L Hgb 10.8 L Hct 32.8 L MCV 107 H MCH 35.3 H MCHC 32.9 RDW 17.2 H Plt Count 225 MPV 12.3 H Immature Gran % 0.8 Neutrophils % 87.4 Lymphocytes % 7.3 Monocytes % 4.1 Eosinophils % 0.1 Basophils % 0.3 Nucleated RBC % 0.2 Absolute Neutrophils 14.57 H Absolute Lymphocytes 1.22 Absolute Monocytes 0.68 Absolute Eosinophils 0.02 Absolute Basophils 0.05 RBC Morphology See Below Polychromasia Present Basophilic Stippling Present Macrocytosis 1+ Sodium 127 L Potassium 4.6 Chloride 98 Carbon Dioxide 21.6 Anion Gap 7.4 BUN 6 L Creatinine 0.9 Est GFR (CKD-EPI 2020) 72.28 Glucose 86 Calcium 7.9 L PFSH All Active Problems (Updated 12/06/23 @ 00:08 by CODY ZHU) Elevated ferritin (Acute) Compression fracture of L1 lumbar vertebra (Acute) Steatosis (Acute) Mild Duodenitis without hemorrhage (Acute) Portal hypertensive gastropathy (Acute) Wound of right lower extremity (Acute) into the fat layer Superior mesenteric artery stenosis (Acute) Renal artery stenosis (Acute) Contraindication to deep vein thrombosis prophylaxis (Acute) Diverticulosis (Acute) Celiac artery stenosis (Acute) Atherosclerosis of abdominal aorta (Acute) Severe Coronary artery calcification seen on CAT scan (Acute) Acute blood loss anemia (Acute) Hyponatremia (Chronic) Gastritis (Acute) Lacerations of multiple sites of leg (Acute) Weakness (Acute) COPD with acute exacerbation (Acute) COPD (chronic obstructive pulmonary disease) (Chronic) Hypomagnesemia (Acute) Shortness of breath (Acute) Tobacco dependence syndrome (Chronic) Edema, peripheral (Acute) Cellulitis of left leg (Acute) Ambulatory dysfunction (Acute) Edema of both lower legs (Acute) Congestive heart failure (Chronic) COPD exacerbation (Acute) Cellulitis (Acute) Severe sepsis (Acute) Prolonged QT interval (Acute) Respiratory failure (Acute) Sepsis (Acute) Shock (Acute) Hypomagnesemia (Acute) Difficulty walking (Acute) PVD (peripheral vascular disease) (Chronic) Acute hypokalemia (Acute) Hypoglycemia (Acute) Alcoholic ketoacidosis (Acute) Laceration of scalp (Acute) Fall (Acute) Chronic left hip pain (Acute) Contusion of hip (Acute) Closed intertrochanteric fracture of left hip (Acute) s/p IMN fixation (05/18/23) Smoker (Acute) Closed fracture of left hip (Acute) Anxiety (Chronic) Cavitary lesion of lung (Acute) Tobacco use disorder (Acute 01/28/14) Pleural effusion (Acute) Hypomagnesemia (Acute) Fluid overload (Acute) Chest wall muscle strain (Acute) Hypokalemia (Acute) Emphysema lung (Acute) Nicotine dependence, cigarettes, uncomplicated (Acute) Atherosclerosis (Acute) Gastric wall thickening (Acute) Stenosis of right internal carotid artery (Acute) Mass of upper lobe of right lung (Acute) Alcohol abuse (Chronic) Dehydration (Acute) Diarrhea (Acute) Hypomagnesemia (Chronic) B12 deficiency (Acute) Hypocalcemia (Chronic) Ascites (Acute) Chronic liver disease (Chronic) Weight loss, non-intentional (Acute) Early satiety (Acute) Folate deficiency (Acute) Hypomagnesemia (Acute) Hypokalemia (Acute) Leg pain (Acute) Bilateral leg ulcer (Acute) Medical History (Updated 12/06/23 @ 00:08 by CODY ZHU) GI bleeding Right upper quadrant abdominal pain Leg pain Hypokalemia Chest pain due to GERD Gastroenteritis Hypotension Macrocytic anemia Advanced care planning/counseling discussion Palliative care patient Pneumonia Pulmonary nodule COPD (chronic obstructive pulmonary disease) Hypomagnesemia Cachexia Hepatic fibrosis Ulcer of lower extremity Hair loss Vitamin D deficiency Chest pain Gastroesophageal reflux disease Hx pulmonary embolism COPD (chronic obstructive pulmonary disease) Chronic vomiting Malnutrition Frequent falls Bilateral leg pain Pancreatitis Diastolic dysfunction Folate deficiency anemia Ascites Bilateral lower extremity edema Unintentional weight loss Alcohol abuse Tobacco abuse Surgical History (Updated 12/06/23 @ 00:08 by CODY ZHU) History of esophagogastroduodenoscopy (~12/2023) punch biopsy, skin of ankle, right lateral (11/24/16) negative for malignancy, sparse inflammation and reactive blood vessels foot surgery (~2000) Ligation of fallopian tube (~1999) ENT/Nasal surgery (~2007) Family History Father Lung disease Cancer Lung Social History Smoking/Tobacco Use Status: Current every day Tobacco Type: cigarettes Tobacco: How many years used: 45 Quit status: considering quitting Second Hand Exposure: Yes Smoking risk assessment performed?: Yes Alcohol Intake: current Alcohol Intake frequency: 3 or more drinks per day Alcohol type: wine and hard liquor Counseling given: Yes Counseling provided: provider counseling Drug use: Never Substance use type: marijuana Housing: apartment Current gender identity: female Do you feel safe at home: Yes Do you feel safe in your relationship?: Yes Additional Social history: Lives alone in studio in [facility], 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 Grew up in [facility], sisters in area. History History Para 0 Hx # Term Pregnancies Multiple births Hx # Pregnancies Ectopic pregnancies AB induced Hx Number of Living Children AB spontaneous Time Spent with Patient Time Spent with Patient: >85 minutes Time was spent: preparing to see the patient(eg.review tests), obtaining and/or reviewing separately otained hiistory, ordering medications,tests, procedures, referring, communicating with other health palliative care physician, indepentently interpreting results, counseling the patient and care coordination
== END 2023-12-05 13:11 | disposition left against medical advice (07) | DRG 378 ==
LOC: ER 12-02 01:34 → MS 12-02 09:09
PROVIDERS: Internal Medicine; Nurse Practitioner Acute Care; Surgery; Admitting Provider Family Medicine; Emergency Provider Nurse Practitioner Family; PCP Nurse Practitioner Family; Visit Provider Family Medicine
PROC: 0DJ68ZZ Inspection of Stomach, Via Natural or Artificial Opening Endoscopic (ICD-10-PCS; CPT 43235; principal; 2023-12-02 14:30)
DX: K26.4 Chronic or unspecified duodenal ulcer with hemorrhage (principal); D62 Acute posthemorrhagic anemia; E87.1 Hypo-osmolality and hyponatremia; Z68.1 Body mass index [BMI] 19.9 or less, adult; K76.6 Portal hypertension; K29.81 Duodenitis with bleeding; K29.71 Gastritis, unspecified, with bleeding; K44.9 Diaphragmatic hernia without obstruction or gangrene; R10.11 Right upper quadrant pain; E87.6 Hypokalemia; J41.8 Mixed simple and mucopurulent chronic bronchitis; E83.42 Hypomagnesemia; M79.604 Pain in right leg; M79.605 Pain in left leg; R91.1 Solitary pulmonary nodule; K74.00 Hepatic fibrosis, unspecified; R53.1 Weakness; F10.10 Alcohol abuse, uncomplicated; E83.51 Hypocalcemia; F17.210 Nicotine dependence, cigarettes, uncomplicated; I77.1 Stricture of artery; I70.0 Atherosclerosis of aorta; I73.9 Peripheral vascular disease, unspecified; F41.9 Anxiety disorder, unspecified; I65.21 Occlusion and stenosis of right carotid artery; E53.8 Deficiency of other specified B group vitamins; R63.4 Abnormal weight loss; D53.9 Nutritional anemia, unspecified; R29.6 Repeated falls; K31.89 Other diseases of stomach and duodenum
CPT/HCPCS: 43239; 00123; 36415; 36416; 71275; 74177; 80048; 80053; 80076; 82805; 82962; 83690; 84145; 85027; 86850; 86900; 86901; 87637; 88305; 93005; 94640; 96361; 96365; 96366; 96367; 96375; 96376; 97110; 97162; 99285; 71045; 73590; 74019; 76705; 80320; 81003; 81015; 82140; 82270; 82607; 82728; 82746; 82977; 83605; 83735; 83880; 84132; 84484; 85014; 85018; 85025; 85379; 85610; 85730; 86140; 93010; 94664; 94760; 99223; 99231; 99232; 99239; J1170; J1200; J1756; J2001; J2405; J2470; J2704; J3430; J3475; J3480; J3490; J7620

== ENCOUNTER 2023-12-07 13:20 | Emergency (ER) | payer BC, SELFPAY ==
[2023-12-07 13:25] VITALS: BP 110/91; PULSE 76; RESP 14; TEMP 36.4; O2SAT 96
--- NOTE | 2023-12-07 13:35 | ED.GENADUL_ITS ---
Discharge Plan Disposition Patient Disposition: Home Condition: Good Discharge Details Chief Complaint: Nk/Back Pain Clinical Impression: Weakness of neck Primary Care Provider: MARIANO KEARNEY ED Provider: Walter Griffiths Home Meds and New Rx's Prescriptions: No Action ipratropium-albuterol 0.5 mg-3 mg(2.5 mg base)/3 mL solution for nebulization 3 ml inhalation Q4H PRN (Reason: wheezing) Qty: 540 8RF albuterol sulfate 90 mcg/actuation HFA aerosol inhaler 2 puff inhalation Q6H PRN (Reason: shortness of breath or wheezing) Qty: 8.5 12RF thiamine HCl (vitamin B1) 250 mg tablet 250 mg PO DAILY gabapentin 300 mg capsule 300 mg PO TID Stiolto Respimat 2.5-2.5 mcg/actuation mist 2 puff inhalation Q24H Qty: 4 12RF loperamide [Imodium A-D] 1 mg/7.5 mL liquid 2 mg PO Q1-4H PRNQty: 120 0RF Rx Instructions: administer after each loose stool until symptoms controlled; do not exceed 16 mg per 24 hrs multivitamin [Multiple Vitamins] Tablet 1 tab PO DAILY Qty: 30 0RF omeprazole 40 mg capsule,delayed release(DR/EC) 40 mg PO DAILY potassium chloride [Klor-Con M20] 20 mEq Tablet,Er Particles/Crystals 40 meq PO DAILY Qty: 90 0RF magnesium oxide 400 mg (241.3 mg magnesium) Tablet 400 mg PO DAILY Qty: 90 0RF nicotine (polacrilex) 2 mg Lozenge 2 mg SUC Q2H PRN PRNQty: 120 3RF hydrocortisone 2.5 % cream 1 applic TOPICAL DAILY Patient Comments: APPLY TAKE OAA TWO TIMES A DAY NEEDED FOR 14 DAYS prednisone 20 mg tablet 20 mg PO DAILY Qty: 4 0RF Discharge Instructions Additional Instructions: At this time as your lungs are clear, your oxygenation is excellent, we have rebandaged your wounds on your shins, and we have placed a referral for wound care. If you notice any worsening of your symptoms, or any new symptoms such as vomiting, diarrhea, fever, chills, shortness of breath, chest pain, numbness, weakness, or fainting , please return immediately to the emergency department for reevaluation. Please follow up with your primary care provider as soon as possible for reassessment and reevaluation. As always, it was a pleasure participating in your medical care today. Referrals: MARIANO KEARNEY, AUTOMOTIVE SERVICE MANAGEMENT TEACHER [Primary Care Provider] - [facility] General Date/Time Provider Initiated Documentation: 12/07/23 13:25 . HPI Narrative: 63-year-old female with a past medical history of chronic alcohol use which includes 8+ martinis a day, COPD, congestive heart failure, chronic weakness, coronary artery disease, who presents today for evaluation of neck weakness. Patient states that her neck has been weak for months, and she states that all she wants is a neck collar to help. She denies any falls or trauma. She denies any numbness or tingling. She also does admit to skinning her shins a week or so ago, and has not had them rebandaged yet. She admits to very minimal amount of shortness of breath, but states that this also feels normal for her. She has no other complaints at this time. No other modifying factors. Related Data Home Medications ?Medication ?Instructions ?Recorded ?Confirmed multivitamin (Multiple Vitamins 1 tab PO DAILY #30 tabs 08/13/20 12/07/23 tablet) albuterol sulfate 90 mcg/actuation 2 puff inhalation Q6H PRN 01/18/22 12/07/23 aerosol inhaler shortness of breath or wheezing #8.5 grams thiamine HCl (vitamin B1) 250 mg 250 mg PO DAILY 04/19/23 12/07/23 tablet tiotropium 2.5 mcg-olodaterol 2.5 2 puff inhalation Q24H #4 grams 05/04/23 12/07/23 mcg/actuation mist for inhalation (Stiolto Respimat) ipratropium 0.5 mg-albuterol 3 mg 3 ml inhalation Q4H PRN wheezing 05/10/23 12/07/23 (2.5 mg base)/3 mL nebulization #540 mL soln gabapentin 300 mg capsule 300 mg PO TID 06/06/23 12/07/23 omeprazole 40 mg capsule,delayed 40 mg PO DAILY 06/12/23 12/07/23 release loperamide 1 mg/7.5 mL oral liquid 2 mg (15 mL) PO Q1-4H PRN #120 mL 08/02/23 12/07/23 (Imodium A-D) magnesium oxide 400 mg (241.3 mg 400 mg PO DAILY #90 tabs 10/06/23 12/07/23 magnesium) tablet potassium chloride 20 mEq 40 meq (2 x 20 mEq) PO DAILY #90 10/06/23 12/07/23 tablet,extended tabs release(part/cryst) (Klor-Con M) nicotine (polacrilex) 2 mg buccal 2 mg SUC Q2H PRN PRN #120 ea 10/11/23 12/07/23 lozenge hydrocortisone 2.5 % topical cream 1 applic topical DAILY 11/25/23 12/07/23 prednisone 20 mg tablet 20 mg PO DAILY #4 tabs 11/25/23 12/07/23 Previous Rx's ?Medication ?Instructions ?Recorded multivitamin (Multiple Vitamins 1 tab PO DAILY #30 tabs 08/13/20 tablet) albuterol sulfate 90 mcg/actuation 2 puff inhalation Q6H PRN 01/18/22 aerosol inhaler shortness of breath or wheezing #8.5 grams tiotropium 2.5 mcg-olodaterol 2.5 2 puff inhalation Q24H #4 grams 05/04/23 mcg/actuation mist for inhalation (Stiolto Respimat) ipratropium 0.5 mg-albuterol 3 mg 3 ml inhalation Q4H PRN wheezing 05/10/23 (2.5 mg base)/3 mL nebulization #540 mL soln loperamide 1 mg/7.5 mL oral liquid 2 mg (15 mL) PO Q1-4H PRN #120 mL 08/02/23 (Imodium A-D) magnesium oxide 400 mg (241.3 mg 400 mg PO DAILY #90 tabs 10/06/23 magnesium) tablet potassium chloride 20 mEq 40 meq (2 x 20 mEq) PO DAILY #90 10/06/23 tablet,extended tabs release(part/cryst) (Klor-Con M) nicotine (polacrilex) 2 mg buccal 2 mg SUC Q2H PRN PRN #120 ea 10/11/23 lozenge prednisone 20 mg tablet 20 mg PO DAILY #4 tabs 11/25/23 Allergies Allergy/AdvReac Type Severity Reaction Status Date / Time bacitracin (From Neosporin Allergy Mild localized Verified 12/07/23 13:35 ([id number])) redness neomycin (From Neosporin Allergy Mild localized Verified 12/07/23 13:35 ([id number])) redness polymyxin B (From Neosporin Allergy Mild localized Verified 12/07/23 13:35 ([id number])) redness General Stated Complaint: Nk/Back Pain RAHEEM: 4 Review of Systems All systems reviewed & are unremarkable except as noted in HPI and below Exam Narrative Exam Narrative: 1.Const: Well-nourished, Well-developed, appearing stated age 2.Eyes: PERRL, no conjunctival injection, and symmetrical lids. 3.ENT: Atraumatic external nose and ears. Moist MM. Neck: Symmetric, trachea midline, No thyromegaly. 4.CVS: +S1/S2, No murmurs or gallops. Peripheral pulses 2+ and equal in all extremities. Brisk capillary refill in all extremities. 5.RESP: Unlabored respiratory effort. Clear to auscultation bilaterally. No wheezes rales or rhonchi 6.GI: Soft, Nontender/Nondistended, No hepatosplenomegaly. No guarding or rebound. 7.MSK: Normocephalic, Extremities w/o deformity. No cyanosis or clubbing, Normal movement of all extremities. Patient demonstrates slowly healing lesions to the anterior shins bilaterally, no redness or warmth to suggest acute cellulitis. Chronic granulation tissue is noted. 8.Skin: Warm, Dry. 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 Sensation grossly intact, no focal neurologic deficits. 10.Psych: (AAO) x3. Appropriate mood and affect Course Vital Signs Vital signs: Vital Signs Temperature 36.4 C L 12/07/23 13:25 Pulse 76 12/07/23 13:25 Respiratory Rate 14 12/07/23 13:25 Blood Pressure 110/91 H 12/07/23 13:25 Pulse Oximetry 96 12/07/23 13:25 Temperature 36.4 C L 12/07/23 13:25 Temperature Source Skin 12/07/23 13:25 Pulse 76 12/07/23 13:25 Respiratory Rate 14 12/07/23 13:25 Blood Pressure 110/91 H 12/07/23 13:25 Blood Pressure Position Sitting 12/07/23 13:25 Pulse Oximetry 96 12/07/23 13:25 Oxygen Delivery Method Room Air 12/07/23 13:25 Oxygen Flow Rate 0 12/07/23 13:25 Pain Level 9 12/07/23 13:25 Medical Decision Making 63-year-old female with a past medical history of chronic alcohol use which includes 8+ martinis a day, COPD, congestive heart failure, chronic weakness, coronary artery disease, who presents today for evaluation of neck weakness. Patient states that her neck has been weak for months, and she states that all she wants is a neck collar to help. She denies any falls or trauma. She denies any numbness or tingling. She also does admit to skinning her shins a week or so ago, and has not had them rebandaged yet. She admits to very minimal amount of shortness of breath, but states that this also feels normal for her. She has no other complaints at this time. No other modifying factors. Physical exam demonstrates clear lung sounds, she demonstrates normal strength of the neck for flexion extension and sidebending and rotation. No evidence of weakness, nuchal rigidity or other abnormality. No focal deficits whatsoever, no signs of fracture or midline tenderness. Patient does have 2 chronic scrapes on the anterior shins bilaterally, no evidence of acute cellulitis. Patient was given a breathing treatment although she had no hypoxemia. She states that she feels excellent after this. Lung sounds were appropriate both before and after. Breathing treatment. Clinically and subjectively she feels better. Her shins were rebandaged. She was given a soft neck brace for comfort. No evidence of muscular abnormality, trauma or other concerning etiology. No signs of meningitis. Patient appears notably stable for discharge. Will place a referral for wound care on an outpatient basis. Discussed red flags which to return. I have extensively reviewed the treatment plan and discharge instructions with the patient. I have addressed all patient concerns at this time. The patient was made aware of what symptoms to monitor for that would warrant a return to the emergency department. Discussed the plan with the patient, they demonstrate verbal understanding and agreement with our assessment and plan at this time. The documentation in this chart was dictated using [employer] dictation software. Please excuse any dictation errors. Quality:SDOH Health Related Social Needs: Health related social needs risk of homeless, transpo insecurity PFSH All Active Problems Weakness of neck (Acute) Elevated ferritin (Acute) Compression fracture of L1 lumbar vertebra (Acute) Steatosis (Acute) Mild Duodenitis without hemorrhage (Acute) Portal hypertensive gastropathy (Acute) Wound of right lower extremity (Acute) into the fat layer Superior mesenteric artery stenosis (Acute) Renal artery stenosis (Acute) Contraindication to deep vein thrombosis prophylaxis (Acute) Diverticulosis (Acute) Celiac artery stenosis (Acute) Atherosclerosis of abdominal aorta (Acute) Severe Coronary artery calcification seen on CAT scan (Acute) Acute blood loss anemia (Acute) Hyponatremia (Chronic) Gastritis (Acute) Lacerations of multiple sites of leg (Acute) Weakness (Acute) COPD with acute exacerbation (Acute) COPD (chronic obstructive pulmonary disease) (Chronic) Hypomagnesemia (Acute) Shortness of breath (Acute) Tobacco dependence syndrome (Chronic) Edema, peripheral (Acute) Cellulitis of left leg (Acute) Ambulatory dysfunction (Acute) Edema of both lower legs (Acute) Congestive heart failure (Chronic) COPD exacerbation (Acute) Cellulitis (Acute) Severe sepsis (Acute) Prolonged QT interval (Acute) Respiratory failure (Acute) Sepsis (Acute) Shock (Acute) Hypomagnesemia (Acute) Difficulty walking (Acute) PVD (peripheral vascular disease) (Chronic) Acute hypokalemia (Acute) Hypoglycemia (Acute) Alcoholic ketoacidosis (Acute) Laceration of scalp (Acute) Fall (Acute) Chronic left hip pain (Acute) Contusion of hip (Acute) Closed intertrochanteric fracture of left hip (Acute) s/p IMN fixation (05/18/23) Smoker (Acute) Closed fracture of left hip (Acute) Anxiety (Chronic) Cavitary lesion of lung (Acute) Tobacco use disorder (Acute 01/28/14) Pleural effusion (Acute) Hypomagnesemia (Acute) Fluid overload (Acute) Chest wall muscle strain (Acute) Hypokalemia (Acute) Emphysema lung (Acute) Nicotine dependence, cigarettes, uncomplicated (Acute) Atherosclerosis (Acute) Gastric wall thickening (Acute) Stenosis of right internal carotid artery (Acute) Mass of upper lobe of right lung (Acute) Alcohol abuse (Chronic) Dehydration (Acute) Diarrhea (Acute) Hypomagnesemia (Chronic) B12 deficiency (Acute) Hypocalcemia (Chronic) Ascites (Acute) Chronic liver disease (Chronic) Weight loss, non-intentional (Acute) Early satiety (Acute) Folate deficiency (Acute) Hypomagnesemia (Acute) Hypokalemia (Acute) Leg pain (Acute) Bilateral leg ulcer (Acute) Medical History GI bleeding Right upper quadrant abdominal pain Leg pain Hypokalemia Chest pain due to GERD Gastroenteritis Hypotension Macrocytic anemia Advanced care planning/counseling discussion Palliative care patient Pneumonia Pulmonary nodule COPD (chronic obstructive pulmonary disease) Hypomagnesemia Cachexia Hepatic fibrosis Ulcer of lower extremity Hair loss Vitamin D deficiency Chest pain Gastroesophageal reflux disease Hx pulmonary embolism COPD (chronic obstructive pulmonary disease) Chronic vomiting Malnutrition Frequent falls Bilateral leg pain Pancreatitis Diastolic dysfunction Folate deficiency anemia Ascites Bilateral lower extremity edema Unintentional weight loss Alcohol abuse Tobacco abuse Surgical History History of esophagogastroduodenoscopy (~12/2023) punch biopsy, skin of ankle, right lateral (11/24/16) negative for malignancy, sparse inflammation and reactive blood vessels foot surgery (~2000) Ligation of fallopian tube (~1999) ENT/Nasal surgery (~2007) Family History Father Lung disease Cancer Lung Social History Smoking/Tobacco Use Status: Current every day Tobacco Type: cigarettes Tobacco: How many years used: 45 Quit status: considering quitting Second Hand Exposure: Yes Smoking risk assessment performed?: Yes Alcohol Intake: current Alcohol Intake frequency: 3 or more drinks per day Alcohol type: wine and hard liquor Counseling given: Yes Counseling provided: provider counseling Drug use: Never Substance use type: marijuana Housing: apartment Current gender identity: female Do you feel safe at home: Yes Do you feel safe in your relationship?: Yes Additional Social history: Lives alone in studio in 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 Grew up in [place], sisters in area. History History Para 0 Hx # Term Pregnancies Multiple births Hx # Pregnancies Ectopic pregnancies AB induced Hx Number of Living Children AB spontaneous
[2023-12-07] MEDS: Albuterol/Ipratropium 3 ML UPD VIAL UPD (13:51)
--- NOTE | 2023-12-07 13:54 | NUR.NOTE ---
referral given to care management for pt to been seen by wound care at home in a week. for Nursing Note:
[2023-12-07 14:21] VITALS: BP 110/91; PULSE 76; RESP 14; TEMP 36.4; O2SAT 96
== END 2023-12-07 14:21 | disposition home or self-care (01) ==
PROVIDERS: Emergency Provider Student in an Organized Health Care Education/Training Program; PCP Nurse Practitioner Family
DX: J44.1 Chronic obstructive pulmonary disease with (acute) exacerbation (principal); R06.02 Shortness of breath; M53.82 Other specified dorsopathies, cervical region; S81.801A Unspecified open wound, right lower leg, initial encounter; X58.XXXA Exposure to other specified factors, initial encounter
CPT/HCPCS: 94640; 99283; J7620

== ENCOUNTER 2023-12-17 12:31 | Emergency (ER) | payer BC, SELFPAY ==
[2023-12-17 12:40] VITALS: BP 145/102; PULSE 95; RESP 15; TEMP 36.9; O2SAT 99
[2023-12-17 12:57] VITALS: RESP 18
--- NOTE | 2023-12-17 13:00 | RT.EKG_ITS ---
APPROVED REPORT Exam: Resting ECG Reason for Exam: shortness of breath Patient Location: E HR:95 bpm ECG Measurements Heart Rate 95 AXIS MT 154 P 74 QRSd 115 QRS 61 QT 410 T 14 QTc 514 Conclusion Sinus rhythm...normal P axis, V-rate 60- 99 Probable left atrial enlargement...P >50mS, <-0.10mV V1 Incomplete right bundle branch block...QRSd >112, terminal axis(90,270) Prolonged QT interval...QTc >500mS
--- NOTE | 2023-12-17 13:00 | DI.RAD_ITS ---
Exam(s) XR PORTABLE CHEST AP EXAM: XR PORTABLE CHEST AP CLINICAL HISTORY: shortness of breath TECHNIQUE: 2D digital imaging was performed of the chest. One image was obtained. An AP view was ob tained. COMPARISON: CR XR PORTABLE CHEST AP from 11/25/2023 CR,XR XR PORTABLE CHEST AP from 12/01/2023 CR,XR XR ABDOMEN FLAT UPRIGHT from 12/04/2023 FINDINGS: MEDIASTINUM: Normal. HEART: Normal. PULMONARY VASCULATURE: Normal. LUNGS: The lungs are hyperinflated with flattened diaphragms suggesting underlying COPD. No focal co nsolidating infiltrates. PLEURAL SPACE: There is blunting of the left costophrenic angle which may represent a small pleural e ffusion. No right pleural effusion. No pneumothorax. BONE:Within normal limits for the patient's age. There is an old fracture of the anterolateral aspect of the right 9th rib. OTHER FINDINGS:Extensive vascular calcification is present IMPRESSION: 1. No acute pulmonary findings. 2. Small left pleural effusion. DATA REPOSITORY: RADIATION DOSE DELIVERED:
[2023-12-17 14:09] LABS: Abs Immature Grans 0.02 10^3/uL (0.0-0.06); Absolute Basophil Count 0.07 10^3/uL (0.0-0.2); Absolute Eosinophil Count 0.01 10^3/uL (0.0-0.7); Absolute Lymphocyte Count 0.92 10^3/uL (1.2-3.4); Absolute Monocyte Count 0.53 10^3/uL (0.1-0.8); Absolute Neutrophil Count 6.25 10^3/uL (1.2-6.7); Basophils % 0.9 %; Eosinophils % 0.1 %; HCT 36.4 % (36.0-46.0); Immature Grans % 0.3 %; Lymphocytes % 11.8 %; MCH 34.1 pg (27.0-33.0); MCV 103 fL (80-95); MPV 10.1 fL (8.0-11.0); Monocytes % 6.8 %; Neutrophils % 80.1 %; Platelet Count 401 10^3/uL (130-400); RBC 3.52 10^6/uL (3.93-5.22); RDW 16.6 % (11.7-14.6); RDW-SD 63.1 fL
[2023-12-17 14:21] LABS: C-Reactive Protein 1.06 mg/dL (<or=0.5); Lipase 13 U/L (16-77); Magnesium 1.6 mg/dL (1.8-2.4)
[2023-12-17 14:28] LABS: ALT 28 U/L (14-59); AST 51 U/L (15-37); Albumin 2.2 g/dL (3.4-5.0); Alkaline Phosphatase 212 U/L (46-116); Anion Gap 12.2 mmol/L (3-11); BUN 4 mg/dL (7-18); Bilirubin, Total 1.11 mg/dL (0.2-1.0); CO2 24.8 mmol/L (21.0-32.0); CREATININE 0.7 mg/dL (0.55-1.02); Calcium 8.3 mg/dL (8.5-10.1); Chloride 97 mmol/L (98-107); Estimated GFR 97.72 (mL/min/1.73m2); Glucose 90 mg/dL (74-106); Potassium 3.7 mmol/L (3.5-5.1); Sodium 134 mmol/L (136-145); Total Protein 6.3 g/dL (6.4-8.2); Troponin I < 50 ng/L (< or =60)
[2023-12-17] MEDS: Magnesium Oxide 400 MG TAB 800 MG PO (15:30)
--- NOTE | 2023-12-17 15:34 | DI.VRAD_ITS ---
PROCEDURE INFORMATION: Exam: XR Chest Exam date and time: 12/17/2023 2:27 PM Age: 63 years old Clinical indication: Shortness of breath TECHNIQUE: Imaging protocol: Radiologic exam of the chest. Views: 1 view. COMPARISON: CT CHEST PE ABD PELVIS W 05/09/2023 22:38 FINDINGS: Lungs: Mild increased interstitial markings bilaterally. No focal consolidation. Pleural spaces: Blunted left lateral costophrenic angle. Heart/Mediastinum: Unremarkable. No cardiomegaly. Vasculature: Atherosclerotic disease. Bones/joints: Age indeterminate right 9th lateral rib fracture. Degenerative scoliotic changes of the spine. IMPRESSION: 1. No acute cardiopulmonary findings. 2. Additional findings as discussed above. Dictated and Authenticated by: Britany Marrero MD. Ordering:ELIF Ram MD
--- NOTE | 2023-12-17 17:46 | NUR.NOTE ---
Home Health referral form filled out and sent to Care Management. Nursing Note:
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
== END 2023-12-17 16:13 | disposition home or self-care (01) ==
PROVIDERS: Emergency Provider Physician Assistant; PCP Nurse Practitioner Family
DX: E83.42 Hypomagnesemia (principal); F41.9 Anxiety disorder, unspecified; J44.9 Chronic obstructive pulmonary disease, unspecified; F10.20 Alcohol dependence, uncomplicated; F17.210 Nicotine dependence, cigarettes, uncomplicated; Z99.3 Dependence on wheelchair
CPT/HCPCS: 80053; 83690; 93005; 99284; 71045; 83735; 84484; 85025; 86140; 93010; 99283

== ENCOUNTER 2023-12-20 13:46 | Emergency (ER) | payer BC, SELFPAY ==
[2023-12-20 13:45] VITALS: BP 98/78; PULSE 95; RESP 20; TEMP 36.8; O2SAT 91
[2023-12-20 13:52] VITALS: BP 98/78; PULSE 97
--- NOTE | 2023-12-20 14:10 | ED.GENADUL_ITS ---
Discharge Plan Disposition Patient Disposition: Home Condition: Improving Discharge Details Clinical Impression: Leg pain Primary Care Provider: MARIANO KEARNEY ED Provider: Sesar Solomon Home Meds and New Rx's Prescriptions: New ketorolac 10 mg tablet 10 mg PO Q8H PRN (Reason: severe pain (scale score 7-10)) Qty: 3 0RF No Action ipratropium-albuterol 0.5 mg-3 mg(2.5 mg base)/3 mL solution for nebulization 3 ml inhalation Q4H PRN (Reason: wheezing) Qty: 540 8RF albuterol sulfate 90 mcg/actuation HFA aerosol inhaler 2 puff inhalation Q6H PRN (Reason: shortness of breath or wheezing) Qty: 8.5 12RF thiamine HCl (vitamin B1) 250 mg tablet 250 mg PO DAILY gabapentin 300 mg capsule 300 mg PO TID Stiolto Respimat 2.5-2.5 mcg/actuation mist 2 puff inhalation Q24H Qty: 4 12RF loperamide [Imodium A-D] 1 mg/7.5 mL liquid 2 mg PO Q1-4H PRNQty: 120 0RF Rx Instructions: administer after each loose stool until symptoms controlled; do not exceed 16 mg per 24 hrs esomeprazole magnesium 20 mg capsule,delayed release(DR/EC) 20 mg PO DAILY Qty: 30 0RF sucralfate [Carafate] 1 gram tablet 1 g PO BID Qty: 60 0RF Spiriva Respimat 2.5 mcg/actuation mist 2 puff inhalation DAILY Qty: 4 0RF albuterol sulfate [Ventolin HFA] 90 mcg/actuation HFA aerosol inhaler 2 puff inhalation Q6H PRNQty: 6.7 0RF magnesium 250 mg tablet 250 mg PO DAILY Qty: 30 0RF potassium chloride 20 mEq tablet extended release 20 meq PO DAILY Qty: 14 0RF gabapentin [Neurontin] 300 mg capsule 300 mg PO TID Qty: 90 0RF multivitamin [Multiple Vitamins] Tablet 1 tab PO DAILY Qty: 30 0RF omeprazole 40 mg capsule,delayed release(DR/EC) 40 mg PO DAILY potassium chloride [Klor-Con M20] 20 mEq Tablet,Er Particles/Crystals 40 meq PO DAILY Qty: 90 0RF magnesium oxide 400 mg (241.3 mg magnesium) Tablet 400 mg PO DAILY Qty: 90 0RF nicotine (polacrilex) 2 mg Lozenge 2 mg SUC Q2H PRN PRNQty: 120 3RF hydrocortisone 2.5 % cream 1 applic TOPICAL DAILY Patient Comments: APPLY TAKE OAA TWO TIMES A DAY NEEDED FOR 14 DAYS prednisone 20 mg tablet 20 mg PO DAILY Qty: 4 0RF Discharge Instructions Instructions: Leg Pain (ED) Additional Instructions: Please follow-up with your primary care physician HPI General Date/Time Provider Initiated Documentation: 12/20/23 13:56 . HPI Narrative: 63-year-old female history of smoking, COPD, alcohol abuse, called EMS for shortness of breath, when EMS arrived patient was smoking a cigarette, upon arrival patient's initial complaint is bilateral leg discomfort patient had injured her legs after a TV had abraded and lacerated the soft tissue of bilateral lower extremities, has been healing by secondary intent, requesting pain meds for her leg discomfort. Related Data Home Medications ?Medication ?Instructions ?Recorded ?Confirmed multivitamin (Multiple Vitamins 1 tab PO DAILY #30 tabs 08/13/20 12/20/23 tablet) albuterol sulfate 90 mcg/actuation 2 puff inhalation Q6H PRN 01/18/22 12/20/23 aerosol inhaler shortness of breath or wheezing #8.5 grams thiamine HCl (vitamin B1) 250 mg 250 mg PO DAILY 04/19/23 12/20/23 tablet tiotropium 2.5 mcg-olodaterol 2.5 2 puff inhalation Q24H #4 grams 05/04/23 12/20/23 mcg/actuation mist for inhalation (Stiolto Respimat) ipratropium 0.5 mg-albuterol 3 mg 3 ml inhalation Q4H PRN wheezing 05/10/23 12/20/23 (2.5 mg base)/3 mL nebulization #540 mL soln gabapentin 300 mg capsule 300 mg PO TID 06/06/23 12/20/23 omeprazole 40 mg capsule,delayed 40 mg PO DAILY 06/12/23 12/20/23 release loperamide 1 mg/7.5 mL oral liquid 2 mg (15 mL) PO Q1-4H PRN #120 mL 08/02/23 12/20/23 (Imodium A-D) magnesium oxide 400 mg (241.3 mg 400 mg PO DAILY #90 tabs 10/06/23 12/20/23 magnesium) tablet potassium chloride 20 mEq 40 meq (2 x 20 mEq) PO DAILY #90 10/06/23 12/20/23 tablet,extended tabs release(part/cryst) (Klor-Con M) nicotine (polacrilex) 2 mg buccal 2 mg SUC Q2H PRN PRN #120 ea 10/11/23 12/20/23 lozenge hydrocortisone 2.5 % topical cream 1 applic topical DAILY 11/25/23 12/20/23 prednisone 20 mg tablet 20 mg PO DAILY #4 tabs 11/25/23 12/20/23 albuterol sulfate 90 mcg/actuation 2 puff inhalation Q6H PRN #6.7 12/17/23 12/20/23 aerosol inhaler (Ventolin HFA) grams esomeprazole magnesium 20 mg 20 mg PO DAILY #30 caps 12/17/23 12/20/23 capsule,delayed release gabapentin 300 mg capsule 300 mg PO TID #90 caps 12/17/23 12/20/23 (Neurontin) magnesium 250 mg tablet 250 mg PO DAILY #30 tabs 12/17/23 12/20/23 potassium chloride 20 mEq 20 meq PO DAILY #14 tabs 12/17/23 12/20/23 tablet,extended release sucralfate 1 gram tablet (Carafate) 1 g PO BID #60 tabs 12/17/23 12/20/23 tiotropium bromide 2.5 2 puff inhalation DAILY #4 grams 12/17/23 12/20/23 mcg/actuation mist for inhalation (Spiriva Respimat) ketorolac 10 mg tablet 10 mg PO Q8H PRN severe pain 12/20/23 (scale score 7-10) #3 tabs Previous Rx's ?Medication ?Instructions ?Recorded multivitamin (Multiple Vitamins 1 tab PO DAILY #30 tabs 08/13/20 tablet) albuterol sulfate 90 mcg/actuation 2 puff inhalation Q6H PRN 01/18/22 aerosol inhaler shortness of breath or wheezing #8.5 grams tiotropium 2.5 mcg-olodaterol 2.5 2 puff inhalation Q24H #4 grams 05/04/23 mcg/actuation mist for inhalation (Stiolto Respimat) ipratropium 0.5 mg-albuterol 3 mg 3 ml inhalation Q4H PRN wheezing 05/10/23 (2.5 mg base)/3 mL nebulization #540 mL soln loperamide 1 mg/7.5 mL oral liquid 2 mg (15 mL) PO Q1-4H PRN #120 mL 08/02/23 (Imodium A-D) magnesium oxide 400 mg (241.3 mg 400 mg PO DAILY #90 tabs 10/06/23 magnesium) tablet potassium chloride 20 mEq 40 meq (2 x 20 mEq) PO DAILY #90 10/06/23 tablet,extended tabs release(part/cryst) (Klor-Con M) nicotine (polacrilex) 2 mg buccal 2 mg SUC Q2H PRN PRN #120 ea 10/11/23 lozenge prednisone 20 mg tablet 20 mg PO DAILY #4 tabs 11/25/23 albuterol sulfate 90 mcg/actuation 2 puff inhalation Q6H PRN #6.7 12/17/23 aerosol inhaler (Ventolin HFA) grams esomeprazole magnesium 20 mg 20 mg PO DAILY #30 caps 12/17/23 capsule,delayed release gabapentin 300 mg capsule 300 mg PO TID #90 caps 12/17/23 (Neurontin) magnesium 250 mg tablet 250 mg PO DAILY #30 tabs 12/17/23 potassium chloride 20 mEq 20 meq PO DAILY #14 tabs 12/17/23 tablet,extended release sucralfate 1 gram tablet (Carafate) 1 g PO BID #60 tabs 12/17/23 tiotropium bromide 2.5 2 puff inhalation DAILY #4 grams 12/17/23 mcg/actuation mist for inhalation (Spiriva Respimat) ketorolac 10 mg tablet 10 mg PO Q8H PRN severe pain 12/20/23 (scale score 7-10) #3 tabs Allergies Allergy/AdvReac Type Severity Reaction Status Date / Time bacitracin (From Neosporin Allergy Mild localized Verified 12/07/23 13:35 ([id number])) redness neomycin (From Neosporin Allergy Mild localized Verified 12/07/23 13:35 ([id number])) redness polymyxin B (From Neosporin Allergy Mild localized Verified 12/07/23 13:35 ([id number])) redness General Stated Complaint: [facility] RAHEEM: 3 Exam Narrative Exam Narrative: Alert oriented interactive Moist mucous membranes tongue secretions normal voice Speaking full sentences no respiratory distress lungs clear bilaterally no wheezes rales or rhonchi Moving all extremities without deficit Subacute/chronic appearing wounds to bilateral anterior shins healing by secondary intent well granulated no fluctuance purulence or induration no crepitus, warm well-perfused Alert oriented normal speech no cranial nerve deficits full strength full sensation Course Vital Signs Vital signs: Vital Signs Temperature 36.8 C 12/20/23 13:45 Pulse 95 H 12/20/23 13:45 Respiratory Rate 12/20/23 13:45 Blood Pressure 98/78 L 12/20/23 13:45 Pulse Oximetry 91 L 12/20/23 13:45 Temperature 36.8 C 12/20/23 13:45 Temperature Source Temporal Artery Scan 12/20/23 13:45 Pulse 95 H 12/20/23 13:45 Respiratory Rate 12/20/23 13:45 Blood Pressure 98/78 L 12/20/23 13:45 Blood Pressure Position Sitting 12/20/23 13:45 Pulse Oximetry 91 L 12/20/23 13:45 Oxygen Delivery Method Room Air 12/20/23 13:45 Oxygen Flow Rate 0 12/20/23 13:45 Pain Level 10 12/20/23 13:45 Medical Decision Making 63-year-old female presents endorsing bilateral leg pain related to wounds sustained from an injury from a falling TV, well-healing wounds healing by secondary intent, no signs of infection, patient has no neurologic deficits, neurovascular exam of limbs intact, no respiratory distress speaking full sentences saturating 91% on room air patient is a chronic smoker with history of COPD. Patient requesting pain medication not Tylenol. Will provide analgesia with Toradol will also administer Ativan for anxiolysis and muscle relaxation effect. No evidence of respiratory symptoms to suggest pneumonia pneumothorax PE aortic pathology or ACS. No evidence of DVT or vascular insult to lower extremities no evidence of acute trauma. Patient's vital signs are near her baseline from multiple prior visits. Low suspicion for hypovolemia or infectious process at this time. 16: 00 patient resting comfortably, no acute distress, vital signs greatly improved after rest and p.o. challenge. Home care instructions and return precautions given Quality:SDOH Health Related Social Needs: Health related social needs risk of homeless, transpo insecurity PFSH All Active Problems (Updated 12/20/23 @ 16:02 by Sesar Solomon MD) Leg pain (Acute) COPD (chronic obstructive pulmonary disease) (Chronic) Hypomagnesemia (Acute) Weakness of neck (Acute) Elevated ferritin (Acute) Compression fracture of L1 lumbar vertebra (Acute) Steatosis (Acute) Mild Duodenitis without hemorrhage (Acute) Portal hypertensive gastropathy (Acute) Wound of right lower extremity (Acute) into the fat layer Superior mesenteric artery stenosis (Acute) Renal artery stenosis (Acute) Contraindication to deep vein thrombosis prophylaxis (Acute) Diverticulosis (Acute) Celiac artery stenosis (Acute) Atherosclerosis of abdominal aorta (Acute) Severe Coronary artery calcification seen on CAT scan (Acute) Gastritis (Acute) Lacerations of multiple sites of leg (Acute) Weakness (Acute) COPD with acute exacerbation (Acute) COPD (chronic obstructive pulmonary disease) (Chronic) Shortness of breath (Acute) Tobacco dependence syndrome (Chronic) Edema, peripheral (Acute) Cellulitis of left leg (Acute) Ambulatory dysfunction (Acute) Edema of both lower legs (Acute) Congestive heart failure (Chronic) COPD exacerbation (Acute) Cellulitis (Acute) Severe sepsis (Acute) Prolonged QT interval (Acute) Respiratory failure (Acute) Sepsis (Acute) Shock (Acute) Hypomagnesemia (Acute) Difficulty walking (Acute) PVD (peripheral vascular disease) (Chronic) Acute hypokalemia (Acute) Hypoglycemia (Acute) Alcoholic ketoacidosis (Acute) Laceration of scalp (Acute) Fall (Acute) Chronic left hip pain (Acute) Contusion of hip (Acute) Closed intertrochanteric fracture of left hip (Acute) s/p IMN fixation (05/18/23) Smoker (Acute) Closed fracture of left hip (Acute) Anxiety (Chronic) Cavitary lesion of lung (Acute) Tobacco use disorder (Acute 01/28/14) Pleural effusion (Acute) Hypomagnesemia (Acute) Fluid overload (Acute) Chest wall muscle strain (Acute) Hypokalemia (Acute) Emphysema lung (Acute) Nicotine dependence, cigarettes, uncomplicated (Acute) Atherosclerosis (Acute) Gastric wall thickening (Acute) Stenosis of right internal carotid artery (Acute) Mass of upper lobe of right lung (Acute) Alcohol abuse (Chronic) Dehydration (Acute) Diarrhea (Acute) Hypomagnesemia (Chronic) B12 deficiency (Acute) Hypocalcemia (Chronic) Ascites (Acute) Chronic liver disease (Chronic) Weight loss, non-intentional (Acute) Early satiety (Acute) Folate deficiency (Acute) Hypomagnesemia (Acute) Hypokalemia (Acute) Leg pain (Acute) Bilateral leg ulcer (Acute) Medical History GI bleeding Right upper quadrant abdominal pain Leg pain Hypokalemia Chest pain due to GERD Gastroenteritis Hypotension Macrocytic anemia Advanced care planning/counseling discussion Palliative care patient Pneumonia Pulmonary nodule COPD (chronic obstructive pulmonary disease) Hypomagnesemia Cachexia Hepatic fibrosis Ulcer of lower extremity Hair loss Vitamin D deficiency Chest pain Gastroesophageal reflux disease Hx pulmonary embolism COPD (chronic obstructive pulmonary disease) Chronic vomiting Malnutrition Frequent falls Bilateral leg pain Pancreatitis Diastolic dysfunction Folate deficiency anemia Ascites Bilateral lower extremity edema Unintentional weight loss Alcohol abuse Tobacco abuse Surgical History History of esophagogastroduodenoscopy (~12/2023) punch biopsy, skin of ankle, right lateral (11/24/16) negative for malignancy, sparse inflammation and reactive blood vessels foot surgery (~2000) Ligation of fallopian tube (~1999) ENT/Nasal surgery (~2007) Family History Father Lung disease Cancer Lung Social History Smoking/Tobacco Use Status: Current every day Tobacco Type: cigarettes Tobacco: How many years used: 45 Quit status: considering quitting Second Hand Exposure: Yes Smoking risk assessment performed?: Yes Alcohol Intake: current Alcohol Intake frequency: 3 or more drinks per day Alcohol type: wine and hard liquor Counseling given: Yes Counseling provided: provider counseling Drug use: Never Substance use type: marijuana Housing: apartment Current gender identity: female Do you feel safe at home: Yes Do you feel safe in your relationship?: Yes Additional Social history: Lives alone in studio in [facility], 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 Grew up in [facility], sisters in area. History History Para 0 Hx # Term Pregnancies Multiple births Hx # Pregnancies Ectopic pregnancies AB induced Hx Number of Living Children AB spontaneous
[2023-12-20] MEDS: LORazepam 1 MG TAB PO (14:19)
[2023-12-20] MEDS: Ketorolac 15 MG/ML VIAL IM (14:19)
--- NOTE | 2023-12-20 15:15 | RT.EKG_ITS ---
APPROVED REPORT Exam: Resting ECG Reason for Exam: tachycardia Patient Location: E HR:108 bpm ECG Measurements Heart Rate 108 AXIS ID 161 P 88 QRSd 111 QRS 122 QT 405 T 3 QTc 543 Conclusion Sinus tachycardia with irregular rate...V-rate 84-160, variation>10% Right axis deviation...QRS axis ( 91,269) Low voltage, precordial leads...precordial leads <1.0mV Nonspecific repol abnormality, anterior leads...ST dep, T neg, V2-V4 Prolonged QT interval...QTc >500mS sinus tachy, partial RBBB
[2023-12-20 15:57] VITALS: BP 116/84; PULSE 109; RESP 13; O2SAT 92
[2023-12-20 16:15] VITALS: PULSE 109; RESP 16; TEMP 36.6; O2SAT 98
== END 2023-12-20 17:43 | disposition home or self-care (01) ==
PROVIDERS: Emergency Provider Emergency Medicine; PCP Nurse Practitioner Family
DX: M79.605 Pain in left leg (principal); M79.604 Pain in right leg
CPT/HCPCS: 93005; 96372; 99284; 93010; J1885

== ENCOUNTER 2023-12-23 14:24 | Inpatient (IN) | payer BC, SELFPAY ==
--- NOTE | 2023-12-23 | DI.CT_ITS ---
Exam(s) CT ABD AORTA CTA W RUNOFF EXAM: CT ABD AORTA CTA W RUNOFF CLINICAL HISTORY: bilateral lower ext vascular wounds. TECHNIQUE: Imaging Protocol: Axial CT angiography was performed with multi-slice acquisition and mu lti-planar and/or 3D reconstructions. CONTRAST MATERIAL: Intravenous: Omnipaque 350 Contrast volume:150 ml Contrast route:IV - Oral: yes / no COMPARISON: CT RIGHT LOWER EXTREM W CONTRAST from 12/21/[address] CHEST PE ABD PELVIS W from 12/01/2023 FINDINGS: Vascular Structures: Heart: Normal size. Coronary artery calcifications. Abdomen: Celiac [place]/SMA: Severe atherosclerotic changes. Severe stenosis at origin of celiac artery. Modera te to severe stenosis of the SMA. Distal branches are patent. Severe stenosis of DIONNE at origin. Di stal branches are supply through collaterals. Renal Arteries: Moderate to severe calcification at the proximal right renal artery with greater than 50 percent stenosis. Approximately 50 percent stenosis of the left renal artery. There is a single renal artery perfusing each kidney. Aorta: No aneurysm. No dissection. Moderate to severe atherosclerotic calcification. Some narrowi ng in the mid abdominal aorta. Pelvis: Iliac Arteries: Moderate multifocal calcific plaque without significant stenosis. Common Femoral Arteries: Scattered multifocal plaque. No evidence of stenosis. Lower extremities: Right: Common Femoral: No evidence of stenosis. Superficial Femoral: Focal 50 percent stenosis distally. Popliteal: No significant stenosis. Knee Trifurcation: Moderate atherosclerotic changes. Posterior Tibial: Moderate atherosclerotic changes. Peroneal: Multifocal plaque causing multifocal significant stenosis. Flow is seen to the distal bra nches at the ankle. Anterior tibial: Atherosclerotic changes. Vessels are patent. Left: Common Femoral: No evidence of stenosis. Superficial Femoral: Moderate to severe atherosclerotic changes with greater than 50 percent stenosi s at the origin. 50 percent stenosis at proximal to mid portion. Popliteal: No evidence of stenosis. Knee Trifurcation: Moderate to severe plaque Posterior Tibial: No evidence of stenosis. Peroneal: No evidence of stenosis. Anterior tibial: Severe atherosclerosis. Patent. Soft Tissues: Lungs: No acute findings. Liver: Moderate fatty infiltration. No measurable mass. Gallbladder and biliary tract: No radiodense calculus or dilation. Pancreas: Atrophic. No abnormal calcifications or inflammatory process. Spleen: Normal. Kidneys: Normal size, contour and axis. No radiodense stones or obstructive uropathy. No masses seen. Adrenal glands: No masses seen. Aorta: Abdominal portion non-dilated. Bladder: Symmetric distention, no gross wall thickening. Bowel: Mildly dilated loops of small bowel with air-fluid levels no features to suggest obstruction. Enteritis or mesenteric ischemia could be considered. Prominent diverticulosis of the sigmoid. A ppendix normal. Peritoneal cavity: No ascites, collection or mesenteric inflammatory response. Bones: Left hip prosthesis. Old L1 compression fracture. No change in fracture of the right greater trochanter. Reproductive: Partial hysterectomy. IMPRESSION: Multi focal moderate to severe throw sclerotic changes involving the abdominal aorta with mild stenos is. Moderate to severe stenosis of the SMA. Severe stenosis at origin of celiac artery. Bilateral renal artery stenosis of 50-60 percent. Mildly dilated bowel with fluid levels. Findings could be secondary to mesenteric ischemia or enteri tis. Multifocal atherosclerotic changes of the lower extremities without evidence of occlusion. RADIATION DOSE DELIVERED: Total DLP DATA REPOSITORY: All CT scans at this facility are submitted to the National Radiology Data Registry (NRDR) Dose Index Registry (DIR) with the [employer] (ACR). RADIATION OPTIMIZATION: All CT scans at this facility use at least one of these dose optimization te chniques: automated exposure control; mA and/or kV adjustment per patient size (includes targeted exa ms where dose is matched to clinical indication); or iterative reconstruction.
[2023-12-23 14:22] VITALS: BP 82/58; PULSE 119; RESP 18; TEMP 36.1; O2SAT 99
[2023-12-23 15:27] LABS: Abs Immature Grans 0.02 10^3/uL (0.0-0.06); Absolute Basophil Count 0.04 10^3/uL (0.0-0.2); Absolute Lymphocyte Count 0.66 10^3/uL (1.2-3.4); Absolute Monocyte Count 0.47 10^3/uL (0.1-0.8); Absolute Neutrophil Count 5.48 10^3/uL (1.2-6.7); Basophils % 0.6 %; HCT 35.2 % (36.0-46.0); HGB 12.1 g/dL (11.2-15.7); Immature Grans % 0.3 %; Lymphocytes % 9.9 %; MCH 34.7 pg (27.0-33.0); MCHC 34.4 % (32.0-36.0); MCV 101 fL (80-95); MPV 10.8 fL (8.0-11.0); Neutrophils % 82.2 %; Platelet Count 331 10^3/uL (130-400); RBC 3.49 10^6/uL (3.93-5.22); RDW-SD 59.8 fL; WBC 6.67 10^3/uL (4.4-10.8)
[2023-12-23 15:30] LABS: ESR 33 mm/hr (0-30); Lactate 2.3 mmol/L (0.6-1.4)
--- NOTE | 2023-12-23 15:40 | W.ED.GENAD ---
Discharge Plan Disposition Patient Disposition: Admit to [facility] Condition: Fair Discharge Details Chief Complaint: Cellulitis Clinical Impression: Cellulitis, Hypotension Primary Care Provider: MARIANO KEARNEY ED Provider: Philly Cisneros Home Meds and New Rx's Prescriptions: No Action ipratropium-albuterol 0.5 mg-3 mg(2.5 mg base)/3 mL solution for nebulization 3 ml inhalation Q4H PRN (Reason: wheezing) Qty: 540 8RF albuterol sulfate 90 mcg/actuation HFA aerosol inhaler 2 puff inhalation Q6H PRN (Reason: shortness of breath or wheezing) Qty: 8.5 12RF thiamine HCl (vitamin B1) 250 mg tablet 250 mg PO DAILY gabapentin 300 mg capsule 300 mg PO TID Stiolto Respimat 2.5-2.5 mcg/actuation mist 2 puff inhalation Q24H Qty: 4 12RF loperamide [Imodium A-D] 1 mg/7.5 mL liquid 2 mg PO Q1-4H PRNQty: 120 0RF Rx Instructions: administer after each loose stool until symptoms controlled; do not exceed 16 mg per 24 hrs esomeprazole magnesium 20 mg capsule,delayed release(DR/EC) 20 mg PO DAILY Qty: 30 0RF sucralfate [Carafate] 1 gram tablet 1 g PO BID Qty: 60 0RF Spiriva Respimat 2.5 mcg/actuation mist 2 puff inhalation DAILY Qty: 4 0RF albuterol sulfate [Ventolin HFA] 90 mcg/actuation HFA aerosol inhaler 2 puff inhalation Q6H PRNQty: 6.7 0RF magnesium 250 mg tablet 250 mg PO DAILY Qty: 30 0RF potassium chloride 20 mEq tablet extended release 20 meq PO DAILY Qty: 14 0RF gabapentin [Neurontin] 300 mg capsule 300 mg PO TID Qty: 90 0RF ketorolac 10 mg tablet 10 mg PO Q8H PRN (Reason: severe pain (scale score 7-10)) Qty: 3 0RF multivitamin [Multiple Vitamins] Tablet 1 tab PO DAILY Qty: 30 0RF omeprazole 40 mg capsule,delayed release(DR/EC) 40 mg PO DAILY potassium chloride [Klor-Con M20] 20 mEq Tablet,Er Particles/Crystals 40 meq PO DAILY Qty: 90 0RF magnesium oxide 400 mg (241.3 mg magnesium) Tablet 400 mg PO DAILY Qty: 90 0RF nicotine (polacrilex) 2 mg Lozenge 2 mg SUC Q2H PRN PRNQty: 120 3RF hydrocortisone 2.5 % cream 1 applic TOPICAL DAILY Patient Comments: APPLY TAKE OAA TWO TIMES A DAY NEEDED FOR 14 DAYS prednisone 20 mg tablet 20 mg PO DAILY Qty: 4 0RF HPI General Date/Time Provider Initiated Documentation: 12/23/23 14:33. Limitations to Documentation: no limitations. Information obtained by: patient. HPI Narrative: 63-year-old female with multiple medical comorbidities including chronic alcohol abuse, liver disease, COPD and an ongoing chronic lower extremity cellulitis presents for evaluation of worsening leg pain and wounds. Patient reports that she has severe pain in bilateral legs. She reports that these wounds have gotten worse and that they are draining. She denies any fever. She reports that the pain is so bad that she wants to be admitted to the hospital and promises that she will stay until everyone figures out was going Related Data Home Medications ?Medication ?Instructions ?Recorded ?Confirmed multivitamin (Multiple Vitamins 1 tab PO DAILY #30 tabs 08/13/20 12/20/23 tablet) albuterol sulfate 90 mcg/actuation 2 puff inhalation Q6H PRN 01/18/22 12/20/23 aerosol inhaler shortness of breath or wheezing #8.5 grams thiamine HCl (vitamin B1) 250 mg 250 mg PO DAILY 04/19/23 12/20/23 tablet tiotropium 2.5 mcg-olodaterol 2.5 2 puff inhalation Q24H #4 grams 05/04/23 12/20/23 mcg/actuation mist for inhalation (Stiolto Respimat) ipratropium 0.5 mg-albuterol 3 mg 3 ml inhalation Q4H PRN wheezing 05/10/23 12/20/23 (2.5 mg base)/3 mL nebulization #540 mL soln gabapentin 300 mg capsule 300 mg PO TID 06/06/23 12/20/23 omeprazole 40 mg capsule,delayed 40 mg PO DAILY 06/12/23 12/20/23 release loperamide 1 mg/7.5 mL oral liquid 2 mg (15 mL) PO Q1-4H PRN #120 mL 08/02/23 12/20/23 (Imodium A-D) magnesium oxide 400 mg (241.3 mg 400 mg PO DAILY #90 tabs 10/06/23 12/20/23 magnesium) tablet potassium chloride 20 mEq 40 meq (2 x 20 mEq) PO DAILY #90 10/06/23 12/20/23 tablet,extended tabs release(part/cryst) (Klor-Con M) nicotine (polacrilex) 2 mg buccal 2 mg SUC Q2H PRN PRN #120 ea 10/11/23 12/20/23 lozenge hydrocortisone 2.5 % topical cream 1 applic topical DAILY 11/25/23 12/20/23 prednisone 20 mg tablet 20 mg PO DAILY #4 tabs 11/25/23 12/20/23 albuterol sulfate 90 mcg/actuation 2 puff inhalation Q6H PRN #6.7 12/17/23 12/20/23 aerosol inhaler (Ventolin HFA) grams esomeprazole magnesium 20 mg 20 mg PO DAILY #30 caps 12/17/23 12/20/23 capsule,delayed release gabapentin 300 mg capsule 300 mg PO TID #90 caps 12/17/23 12/20/23 (Neurontin) magnesium 250 mg tablet 250 mg PO DAILY #30 tabs 12/17/23 12/20/23 potassium chloride 20 mEq 20 meq PO DAILY #14 tabs 12/17/23 12/20/23 tablet,extended release sucralfate 1 gram tablet (Carafate) 1 g PO BID #60 tabs 12/17/23 12/20/23 tiotropium bromide 2.5 2 puff inhalation DAILY #4 grams 12/17/23 12/20/23 mcg/actuation mist for inhalation (Spiriva Respimat) ketorolac 10 mg tablet 10 mg PO Q8H PRN severe pain 12/20/23 (scale score 7-10) #3 tabs Previous Rx's ?Medication ?Instructions ?Recorded multivitamin (Multiple Vitamins 1 tab PO DAILY #30 tabs 08/13/20 tablet) albuterol sulfate 90 mcg/actuation 2 puff inhalation Q6H PRN 01/18/22 aerosol inhaler shortness of breath or wheezing #8.5 grams tiotropium 2.5 mcg-olodaterol 2.5 2 puff inhalation Q24H #4 grams 05/04/23 mcg/actuation mist for inhalation (Stiolto Respimat) ipratropium 0.5 mg-albuterol 3 mg 3 ml inhalation Q4H PRN wheezing 05/10/23 (2.5 mg base)/3 mL nebulization #540 mL soln loperamide 1 mg/7.5 mL oral liquid 2 mg (15 mL) PO Q1-4H PRN #120 mL 08/02/23 (Imodium A-D) magnesium oxide 400 mg (241.3 mg 400 mg PO DAILY #90 tabs 10/06/23 magnesium) tablet potassium chloride 20 mEq 40 meq (2 x 20 mEq) PO DAILY #90 10/06/23 tablet,extended tabs release(part/cryst) (Klor-Con M) nicotine (polacrilex) 2 mg buccal 2 mg SUC Q2H PRN PRN #120 ea 10/11/23 lozenge prednisone 20 mg tablet 20 mg PO DAILY #4 tabs 11/25/23 albuterol sulfate 90 mcg/actuation 2 puff inhalation Q6H PRN #6.7 12/17/23 aerosol inhaler (Ventolin HFA) grams esomeprazole magnesium 20 mg 20 mg PO DAILY #30 caps 12/17/23 capsule,delayed release gabapentin 300 mg capsule 300 mg PO TID #90 caps 12/17/23 (Neurontin) magnesium 250 mg tablet 250 mg PO DAILY #30 tabs 12/17/23 potassium chloride 20 mEq 20 meq PO DAILY #14 tabs 12/17/23 tablet,extended release sucralfate 1 gram tablet (Carafate) 1 g PO BID #60 tabs 12/17/23 tiotropium bromide 2.5 2 puff inhalation DAILY #4 grams 12/17/23 mcg/actuation mist for inhalation (Spiriva Respimat) ketorolac 10 mg tablet 10 mg PO Q8H PRN severe pain 12/20/23 (scale score 7-10) #3 tabs Allergies Allergy/AdvReac Type Severity Reaction Status Date / Time bacitracin (From Neosporin Allergy Mild localized Verified 12/07/23 13:35 ([id number])) redness neomycin (From Neosporin Allergy Mild localized Verified 12/07/23 13:35 ([id number])) redness polymyxin B (From Neosporin Allergy Mild localized Verified 12/07/23 13:35 ([id number])) redness General Stated Complaint: Cellulitis RAHEEM: 3 Exam Narrative Exam Narrative: Review of Systems: All systems reviewed & are unremarkable except as noted in HPI and below Well-developed, no acute distress NCAT hypotensive Unlabored respiratory effort, no hypoxia Nondistended abdomen Bilateral lower extremities with erythema, edema and significant tenderness to from the knee down on both legs. There are multiple open ulcerations, particularly worse on the lateral right leg, there are wounds that are weeping Course Vital Signs Vital signs: Vital Signs Temperature 36.1 C L 12/23/23 14:22 Pulse 119 H 12/23/23 14:22 Respiratory Rate 18 12/23/23 14:22 Blood Pressure 82/58 L 12/23/23 14:22 Pulse Oximetry 99 12/23/23 14:22 Temperature 36.1 C L 12/23/23 14:22 Temperature Source Temporal Artery Scan 12/23/23 14:22 Pulse 119 H 12/23/23 14:22 Respiratory Rate 18 12/23/23 14:22 Blood Pressure 82/58 L 12/23/23 14:22 Pulse Oximetry 99 12/23/23 14:22 Oxygen Delivery Method Room Air 12/23/23 14:22 Oxygen Flow Rate 0 12/23/23 14:22 Lab/Test Results Lab/Test Results: 12/23/23 15:17 Blood Blood Culture - Pending 12/23/23 14:57 Blood Blood Culture - Pending Laboratory Tests Range/Units 12/23/23 15:17 WBC (4.4-10.8) 10^3/uL 6.67 RBC (3.93-5.22) 10^6/uL 3.49 L Hgb (11.2-15.7) g/dL 12.1 Hct (36.0-46.0) % 35.2 L MCV (80-95) fL 101 H MCH (27.0-33.0) pg 34.7 H MCHC (32.0-36.0) % 34.4 RDW (11.7-14.6) % 16.0 H Plt Count (130-400) 10^3/uL 331 MPV (8.0-11.0) fL 10.8 Immature Gran % % 0.3 Neutrophils % % 82.2 Lymphocytes % % 9.9 Monocytes % % 7.0 Eosinophils % % 0.0 Basophils % % 0.6 Nucleated RBC % (0.0-0.3) % 0.0 Absolute Neutrophils (1.2-6.7) 10^3/uL 5.48 Absolute Lymphocytes (1.2-3.4) 10^3/uL 0.66 L Absolute Monocytes (0.1-0.8) 10^3/uL 0.47 Absolute Eosinophils (0.0-0.7) 10^3/uL 0.00 Absolute Basophils (0.0-0.2) 10^3/uL 0.04 ESR (0-30) mm/hr 33 H VBG Lactate (0.6-1.4) mmol/L 2.3 H* Medical Decision Making Emergent evaluation of bilateral lower extremity cellulitis and wounds. Initial concern for significant cellulitis, patient is well-known to the department and comes frequently. Her blood pressure is typically very low. However she has also noted to be tachycardic as well. Concern for possible developing sepsis in this setting of significant worsening of her lower extremity wounds. Lab work obtained. White blood cell count is not significantly elevated. Her lactic acid is 2.3 which is not as high as her baseline. Likely chronic lactic acidosis due to poor clearing from her liver dysfunction. Sodium back down at 129 today. Renal functions normal. Her procalcitonin is not elevated, but ESR and CRP are elevated. Blood cultures have been sent. Vancomycin has been ordered. Her inflammatory markers are fairly elevated which is new for the patient. A wound culture has also been obtained. Given the worsening of her clinical condition I have discussed with the hospitalist and the patient will be admitted to his service for further management. Quality:[facility] Health Related Social Needs: Health related social needs risk of homeless, transpo insecurity [facility] All Active Problems (Updated 12/23/23 @ 16:47 by Philly Cisneros MD) Hypotension (Acute) Cellulitis (Acute) Discharge planning issues (Acute) Leg pain (Acute) COPD (chronic obstructive pulmonary disease) (Chronic) Hypomagnesemia (Acute) Weakness of neck (Acute) Elevated ferritin (Acute) Compression fracture of L1 lumbar vertebra (Acute) Steatosis (Acute) Mild Duodenitis without hemorrhage (Acute) Portal hypertensive gastropathy (Acute) Wound of right lower extremity (Acute) into the fat layer Superior mesenteric artery stenosis (Acute) Renal artery stenosis (Acute) Contraindication to deep vein thrombosis prophylaxis (Acute) Diverticulosis (Acute) Celiac artery stenosis (Acute) Atherosclerosis of abdominal aorta (Acute) Severe Coronary artery calcification seen on CAT scan (Acute) Gastritis (Acute) Lacerations of multiple sites of leg (Acute) Weakness (Acute) COPD with acute exacerbation (Acute) COPD (chronic obstructive pulmonary disease) (Chronic) Shortness of breath (Acute) Tobacco dependence syndrome (Chronic) Edema, peripheral (Acute) Cellulitis of left leg (Acute) Ambulatory dysfunction (Acute) Edema of both lower legs (Acute) Congestive heart failure (Chronic) COPD exacerbation (Acute) Cellulitis (Acute) Severe sepsis (Acute) Prolonged QT interval (Acute) Respiratory failure (Acute) Sepsis (Acute) Shock (Acute) Hypomagnesemia (Acute) Difficulty walking (Acute) PVD (peripheral vascular disease) (Chronic) Acute hypokalemia (Acute) Hypoglycemia (Acute) Alcoholic ketoacidosis (Acute) Laceration of scalp (Acute) Fall (Acute) Chronic left hip pain (Acute) Contusion of hip (Acute) Closed intertrochanteric fracture of left hip (Acute) s/p IMN fixation (05/18/23) Smoker (Acute) Closed fracture of left hip (Acute) Anxiety (Chronic) Cavitary lesion of lung (Acute) Tobacco use disorder (Acute 01/28/14) Pleural effusion (Acute) Hypomagnesemia (Acute) Fluid overload (Acute) Chest wall muscle strain (Acute) Hypokalemia (Acute) Emphysema lung (Acute) Nicotine dependence, cigarettes, uncomplicated (Acute) Atherosclerosis (Acute) Gastric wall thickening (Acute) Stenosis of right internal carotid artery (Acute) Mass of upper lobe of right lung (Acute) Alcohol abuse (Chronic) Dehydration (Acute) Diarrhea (Acute) Hypomagnesemia (Chronic) B12 deficiency (Acute) Hypocalcemia (Chronic) Ascites (Acute) Chronic liver disease (Chronic) Weight loss, non-intentional (Acute) Early satiety (Acute) Folate deficiency (Acute) Hypomagnesemia (Acute) Hypokalemia (Acute) Leg pain (Acute) Bilateral leg ulcer (Acute) Medical History GI bleeding Right upper quadrant abdominal pain Leg pain Hypokalemia Chest pain due to GERD Gastroenteritis Hypotension Macrocytic anemia Advanced care planning/counseling discussion Palliative care patient Pneumonia Pulmonary nodule COPD (chronic obstructive pulmonary disease) Hypomagnesemia Cachexia Hepatic fibrosis Ulcer of lower extremity Hair loss Vitamin D deficiency Chest pain Gastroesophageal reflux disease Hx pulmonary embolism COPD (chronic obstructive pulmonary disease) Chronic vomiting Malnutrition Frequent falls Bilateral leg pain Pancreatitis Diastolic dysfunction Folate deficiency anemia Ascites Bilateral lower extremity edema Unintentional weight loss Alcohol abuse Tobacco abuse Surgical History History of esophagogastroduodenoscopy (~12/2023) punch biopsy, skin of ankle, right lateral (11/24/16) negative for malignancy, sparse inflammation and reactive blood vessels foot surgery (~2000) Ligation of fallopian tube (~1999) ENT/Nasal surgery (~2007) Family History Father Lung disease Cancer Lung Social History Smoking/Tobacco Use Status: Current every day Tobacco Type: cigarettes Tobacco: How many years used: 45 Quit status: considering quitting Second Hand Exposure: Yes Smoking risk assessment performed?: Yes Alcohol Intake: current Alcohol Intake frequency: 3 or more drinks per day Alcohol type: wine and hard liquor Counseling given: Yes Counseling provided: provider counseling Drug use: Never Substance use type: marijuana Housing: apartment Current gender identity: female Do you feel safe at home: Yes Do you feel safe in your relationship?: Yes Additional Social history: Lives alone in studio in [facility], 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 Grew up in [facility], sisters in area. History History Para 0 Hx # Term Pregnancies Multiple births Hx # Pregnancies Ectopic pregnancies AB induced Hx Number of Living Children AB spontaneous
[2023-12-23 15:42] LABS: ALT 21 U/L (14-59); AST 61 U/L (15-37); Albumin 2.2 g/dL (3.4-5.0); Alkaline Phosphatase 210 U/L (46-116); Anion Gap 12.7 mmol/L (3-11); BUN 4 mg/dL (7-18); C-Reactive Protein 2.34 mg/dL (<or=0.5); CO2 26.3 mmol/L (21.0-32.0); CREATININE 0.8 mg/dL (0.55-1.02); Calcium 9.4 mg/dL (8.5-10.1); Chloride 90 mmol/L (98-107); Estimated GFR 83.26 (mL/min/1.73m2); Glucose 88 mg/dL (74-106); Potassium 4.1 mmol/L (3.5-5.1); Sodium 129 mmol/L (136-145); Total Protein 6.5 g/dL (6.4-8.2)
[2023-12-23 16:08] LABS: Procalcitonin < 0.1 ng/mL
--- NOTE | 2023-12-23 16:27 | HPE_ITS ---
Date of service: 12/23/23 Time of Service: 16:27 Assessment and Plan Assessment and plan (1) Cellulitis: Status: Acute Assessment and plan: Continue vancomycin pharmacy dosing Cultures pending Trend lactic acid IV fluid bolus (2) Bilateral leg ulcer: Status: Acute Assessment and plan: Wound care consult placed Did have a trauma to her lower extremities on a television set earlier in November, Bilateral tib-fib x-rays negative for fracture leg on 12/02/2023 with pain secondary to soft tissue trauma from an injury with a TV set and then seen on 2 occasions 12/17 and 12/19 for leg pain with no evidence of infection. (3) GI bleeding: Assessment and plan: Hemoglobin stable with no evidence or symptoms of active bleeding Protonix 40 mg twice a day and Carafate before meals and at bedtime. portal gastropathy and duodenitis but no acute bleeding on recent EGD in early November. Dr. Damon elected not to pursue colonoscopy at that time, arrange as an outpatient if indicated. Of note patient did not required a transfusion on that previous admission. Qualifiers: GI bleed type/associated pathology: gastrointestinal hemorrhage with hematemesis Qualified Code(s): K92.0 - Hematemesis (4) Portal hypertensive gastropathy: Status: Acute Assessment and plan: As above (5) Duodenitis without hemorrhage: Status: Acute Assessment and plan: As above (6) Hepatic fibrosis: (7) COPD (chronic obstructive pulmonary disease): Status: Chronic Assessment and plan: Not experiencing any acute exacerbation. continue home inhaler with as needed albuterol or duoneb. Qualifiers: COPD type: chronic bronchitis Chronic bronchitis type: mixed simple and mucopurulent Qualified Code(s): J41.8 - Mixed simple and mucopurulent chronic bronchitis (8) Pulmonary nodule: Assessment and plan: 1.1 cm spiculated mass right upper lobe will need follow-up with pulmonary services for bronchoscopy and biopsy (9) Frequent falls: Assessment and plan: Consult physical therapy to evaluate and treat for generalized weakness and deconditioning. (10) Contraindication to deep vein thrombosis prophylaxis: Status: Acute Assessment and plan: contraindicated with recent GI bleeding (11) Discharge planning issues: Status: Acute Assessment and plan: Patient remains a full code Will continue to have discussions with her given her multiple comorbidities and new finding of a right upper lobe mass. anticipate home with services vs rehab. physical therapy when medically appropriate discussed with DR Altman History of Present Illness History of Present Illness Chief Complaint: bilateral leg wounds Narrative: This is a 63-year-old female patient well-known to the hospitalist service with frequent admissions for multiple chronic illnesses with history of alcohol use disorder, noncompliance, GI bleed, COPD with ongoing tobacco abuse, heart failure, hypoxic respiratory failure who presents to the emergency department today with bilateral leg ulcers increased erythema and ambulatory dysfunction. Her workup in the emergency department is concerning for cellulitis. She was given vancomycin IV, hospitalist services contacted to admit for further management which she is agreeable to. Review of Systems All systems reviewed & are unremarkable except as noted in HPI and below PFSH All Active Problems (Updated 12/23/23 @ 16:47 by Philly Cisneros MD) Hypotension (Acute) Cellulitis (Acute) Discharge planning issues (Acute) Leg pain (Acute) COPD (chronic obstructive pulmonary disease) (Chronic) Hypomagnesemia (Acute) Weakness of neck (Acute) Elevated ferritin (Acute) Compression fracture of L1 lumbar vertebra (Acute) Steatosis (Acute) Mild Duodenitis without hemorrhage (Acute) Portal hypertensive gastropathy (Acute) Wound of right lower extremity (Acute) into the fat layer Superior mesenteric artery stenosis (Acute) Renal artery stenosis (Acute) Contraindication to deep vein thrombosis prophylaxis (Acute) Diverticulosis (Acute) Celiac artery stenosis (Acute) Atherosclerosis of abdominal aorta (Acute) Severe Coronary artery calcification seen on CAT scan (Acute) Gastritis (Acute) Lacerations of multiple sites of leg (Acute) Weakness (Acute) COPD with acute exacerbation (Acute) COPD (chronic obstructive pulmonary disease) (Chronic) Shortness of breath (Acute) Tobacco dependence syndrome (Chronic) Edema, peripheral (Acute) Cellulitis of left leg (Acute) Ambulatory dysfunction (Acute) Edema of both lower legs (Acute) Congestive heart failure (Chronic) COPD exacerbation (Acute) Cellulitis (Acute) Severe sepsis (Acute) Prolonged QT interval (Acute) Respiratory failure (Acute) Sepsis (Acute) Shock (Acute) Hypomagnesemia (Acute) Difficulty walking (Acute) PVD (peripheral vascular disease) (Chronic) Acute hypokalemia (Acute) Hypoglycemia (Acute) Alcoholic ketoacidosis (Acute) Laceration of scalp (Acute) Fall (Acute) Chronic left hip pain (Acute) Contusion of hip (Acute) Closed intertrochanteric fracture of left hip (Acute) s/p IMN fixation (05/18/23) Smoker (Acute) Closed fracture of left hip (Acute) Anxiety (Chronic) Cavitary lesion of lung (Acute) Tobacco use disorder (Acute 01/28/14) Pleural effusion (Acute) Hypomagnesemia (Acute) Fluid overload (Acute) Chest wall muscle strain (Acute) Hypokalemia (Acute) Emphysema lung (Acute) Nicotine dependence, cigarettes, uncomplicated (Acute) Atherosclerosis (Acute) Gastric wall thickening (Acute) Stenosis of right internal carotid artery (Acute) Mass of upper lobe of right lung (Acute) Alcohol abuse (Chronic) Dehydration (Acute) Diarrhea (Acute) Hypomagnesemia (Chronic) B12 deficiency (Acute) Hypocalcemia (Chronic) Ascites (Acute) Chronic liver disease (Chronic) Weight loss, non-intentional (Acute) Early satiety (Acute) Folate deficiency (Acute) Hypomagnesemia (Acute) Hypokalemia (Acute) Leg pain (Acute) Bilateral leg ulcer (Acute) Medical History GI bleeding Right upper quadrant abdominal pain Leg pain Hypokalemia Chest pain due to GERD Gastroenteritis Hypotension Macrocytic anemia Advanced care planning/counseling discussion Palliative care patient Pneumonia Pulmonary nodule COPD (chronic obstructive pulmonary disease) Hypomagnesemia Cachexia Hepatic fibrosis Ulcer of lower extremity Hair loss Vitamin D deficiency Chest pain Gastroesophageal reflux disease Hx pulmonary embolism COPD (chronic obstructive pulmonary disease) Chronic vomiting Malnutrition Frequent falls Bilateral leg pain Pancreatitis Diastolic dysfunction Folate deficiency anemia Ascites Bilateral lower extremity edema Unintentional weight loss Alcohol abuse Tobacco abuse Surgical History History of esophagogastroduodenoscopy (~12/2023) punch biopsy, skin of ankle, right lateral (11/24/16) negative for malignancy, sparse inflammation and reactive blood vessels foot surgery (~2000) Ligation of fallopian tube (~1999) ENT/Nasal surgery (~2007) Family History Father Lung disease Cancer Lung Social History Smoking/Tobacco Use Status: Current every day Tobacco Type: cigarettes Tobacco: How many years used: 45 Quit status: considering quitting Second Hand Exposure: Yes Smoking risk assessment performed?: Yes Alcohol Intake: current Alcohol Intake frequency: 3 or more drinks per day Alcohol type: wine and hard liquor Counseling given: Yes Counseling provided: provider counseling Drug use: Never Substance use type: marijuana Housing: apartment Current gender identity: female Do you feel safe at home: Yes Do you feel safe in your relationship?: Yes Additional Social history: Lives alone in studio in [facility], 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 Grew up in [facility], sisters in area. History History 2 Para 0 Hx # Term Pregnancies Multiple births Hx # Pregnancies Ectopic pregnancies AB induced Hx Number of Living Children AB spontaneous Meds Allergies and Home Medications Allergies Allergy/AdvReac Type Severity Reaction Status Date / Time bacitracin (From Neosporin Allergy Mild localized Verified 12/07/23 13:35 ([id number])) redness neomycin (From Neosporin Allergy Mild localized Verified 12/07/23 13:35 ([id number])) redness polymyxin B (From Neosporin Allergy Mild localized Verified 12/07/23 13:35 ([id number])) redness Home Medications ?Medication ?Instructions ?Recorded ?Confirmed ?Type multivitamin (Multiple Vitamins 1 tab PO DAILY #30 tabs 08/13/20 12/23/23 Rx tablet) albuterol sulfate 90 mcg/actuation 2 puff inhalation Q6H PRN 01/18/22 12/23/23 Rx aerosol inhaler shortness of breath or wheezing #8.5 grams thiamine HCl (vitamin B1) 250 mg 250 mg PO DAILY 04/19/23 12/23/23 History tablet tiotropium 2.5 mcg-olodaterol 2.5 2 puff inhalation Q24H #4 grams 05/04/23 12/23/23 Rx mcg/actuation mist for inhalation (Stiolto Respimat) ipratropium 0.5 mg-albuterol 3 mg 3 ml inhalation Q4H PRN wheezing 05/10/23 12/23/23 Rx (2.5 mg base)/3 mL nebulization #540 mL soln gabapentin 300 mg capsule 300 mg PO TID 06/06/23 12/23/23 History omeprazole 40 mg capsule,delayed 40 mg PO DAILY 06/12/23 12/23/23 History release loperamide 1 mg/7.5 mL oral liquid 2 mg (15 mL) PO Q1-4H PRN #120 mL 08/02/23 12/23/23 Rx (Imodium A-D) magnesium oxide 400 mg (241.3 mg 400 mg PO DAILY #90 tabs 10/06/23 12/23/23 Rx magnesium) tablet potassium chloride 20 mEq 40 meq (2 x 20 mEq) PO DAILY #90 10/06/23 12/23/23 Rx tablet,extended tabs release(part/cryst) (Klor-Con M) nicotine (polacrilex) 2 mg buccal 2 mg SUC Q2H PRN PRN #120 ea 10/11/23 12/23/23 Rx lozenge hydrocortisone 2.5 % topical cream 1 applic topical DAILY 11/25/23 12/23/23 History prednisone 20 mg tablet 20 mg PO DAILY #4 tabs 11/25/23 12/23/23 Rx albuterol sulfate 90 mcg/actuation 2 puff inhalation Q6H PRN #6.7 12/17/23 12/23/23 Rx aerosol inhaler (Ventolin HFA) grams esomeprazole magnesium 20 mg 20 mg PO DAILY #30 caps 12/17/23 12/23/23 Rx capsule,delayed release gabapentin 300 mg capsule 300 mg PO TID #90 caps 12/17/23 12/23/23 Rx (Neurontin) magnesium 250 mg tablet 250 mg PO DAILY #30 tabs 12/17/23 12/23/23 Rx potassium chloride 20 mEq 20 meq PO DAILY #14 tabs 12/17/23 12/23/23 Rx tablet,extended release sucralfate 1 gram tablet (Carafate) 1 g PO BID #60 tabs 12/17/23 12/23/23 Rx ketorolac 10 mg tablet 10 mg PO Q8H PRN severe pain 12/20/23 12/23/23 Rx (scale score 7-10) #3 tabs Exam Const General: cooperative, comfortable and no acute distress Orientation: alert, awake and oriented x3 HENMT Head: normal to inspection, normocephalic and atraumatic Mouth: moist mucous membranes abnormal (Slightly dry) Eyes General: appearance normal, both eyes and all related structures Alignment and Position: alignment normal Conjunctivae: conjunctivae normal Sclera: sclerae normal EOM: EOM intact bilaterally Neck Neck: normal visual inspection and full ROM Resp Effort & Inspection: normal respiratory effort and able to speak in complete sentences Auscultation: clear to auscultation bilaterally Cardio Rate: regular rate Rhythm: regular rhythm GI Palpation: soft, not firm, no guarding and nontender Auscultation: normal bowel sounds Back/Spine/Pelvis Back: No back tenderness Skin Lesions: lesion noted (bilateral lower extremities, unstageable, see pictures and wound care consu) Rashes: rashes noted (left lower extremity, erythema) Neuro General: patient alert, patient awake, patient oriented x3 and moves all extremities Extrem General: normal to inspection, full ROM and edema (left greater than right) Psych Appearance: grossly normal Mental Status: mental status grossly normal Speech and Movement: speech and movement normal Mood: congruent mood Affect: normal affect Results Labs 12/24/23 09:23 12/24/23 04:00 Labs: Laboratory Results - last 24 hr 12/23/23 15:17 WBC 6.67 RBC 3.49 L Hgb 12.1 Hct 35.2 L MCV 101 H MCH 34.7 H MCHC 34.4 RDW 16.0 H Plt Count 331 MPV 10.8 Immature Gran % 0.3 Neutrophils % 82.2 Lymphocytes % 9.9 Monocytes % 7.0 Eosinophils % 0.0 Basophils % 0.6 Nucleated RBC % 0.0 Absolute Neutrophils 5.48 Absolute Lymphocytes 0.66 L Absolute Monocytes 0.47 Absolute Eosinophils 0.00 Absolute Basophils 0.04 ESR 33 H VBG Lactate 2.3 H* Sodium 129 L Potassium 4.1 Chloride 90 L Carbon Dioxide 26.3 Anion Gap 12.7 H BUN 4 L Creatinine 0.8 Est GFR (CKD-EPI 2020) 83.26 Glucose 88 Calcium 9.4 Total Bilirubin 1.00 AST 61 H ALT 21 Alkaline Phosphatase 210 H C-Reactive Protein 2.34 H Total Protein 6.5 Albumin 2.2 L Procalcitonin < 0.1 Last Vital Signs Temp 36.1 C L 12/23/23 14:22 Pulse 119 H 12/23/23 14:22 Resp 18 12/23/23 14:22 BP 82/58 L 12/23/23 14:22 Pulse Ox 99 12/23/23 14:22 Time Spent Time spent with Patient: 55-74 minutes Time was spent: preparing to see the patient(eg.review tests), obtaining and/or reviewing separately otained hiistory, ordering medications,tests, procedures, indepentently interpreting results and counseling the patient
[2023-12-23 17:01] VITALS: BP 152/59; PULSE 95; RESP 22; O2SAT 100
[2023-12-23 17:40] VITALS: BP 134/81; PULSE 67; RESP 22; TEMP 37.4; O2SAT 99
[2023-12-23] MEDS: ACETAMINOPHEN 1,000 MG/100 ML BTL 400 MG IVPB (17:55)
[2023-12-23] MEDS: Normal Saline Flush 10 ML SYR IVP ×2 (17:58→19:09)
--- NOTE | 2023-12-23 18:31 | W.PC.ACHO ---
Registration Status: Primary Language: Preferred Language: ED Information & Data Chief Complaint Cellulitis 12/23/23 17:17 Chief Complaint Cellulitis 12/23/23 15:43 Triage Note Patient complaining of pain 12/23/23 14:22 to both legs and feet Medical / Surgical History (Last Reviewed 12/23/23 @ 16:41 by Philly Cisneros MD) GI bleeding Right upper quadrant abdominal pain Leg pain Hypokalemia Chest pain due to GERD Gastroenteritis Hypotension Macrocytic anemia Advanced care planning/counseling discussion Palliative care patient Pneumonia Pulmonary nodule COPD (chronic obstructive pulmonary disease) Hypomagnesemia Cachexia Hepatic fibrosis Ulcer of lower extremity Hair loss Vitamin D deficiency Chest pain Gastroesophageal reflux disease Hx pulmonary embolism COPD (chronic obstructive pulmonary disease) Chronic vomiting Malnutrition Frequent falls Bilateral leg pain Pancreatitis Diastolic dysfunction Folate deficiency anemia Ascites Bilateral lower extremity edema Unintentional weight loss Alcohol abuse Tobacco abuse (Last Reviewed 12/23/23 @ 16:41 by Philly Cisneros MD) History of esophagogastroduodenoscopy (~12/2023) punch biopsy, skin of ankle, right lateral (11/24/16) foot surgery (~2000) Ligation of fallopian tube (~1999) ENT/Nasal surgery (~2007) Most Recent Vital Signs Temperature 37.4 C 12/23/23 17:40 Temperature Source Temporal Artery Scan 12/23/23 14:22 Pulse 67 12/23/23 17:40 Pulse Rhythm Regular 12/23/23 17:40 Respiratory Rate 22 12/23/23 17:40 Respiratory Effort Normal, Short of Breath 12/23/23 17:40 Respiratory Depth Normal 12/23/23 17:40 Respiratory Pattern Normal 12/23/23 17:40 Blood Pressure 134/81 12/23/23 17:40 Pulse Oximetry 99 12/23/23 17:40 Oxygen Delivery Method Room Air 12/23/23 17:40 Oxygen Flow Rate 0 12/23/23 17:40 Pain Level 10 12/23/23 17:55 Allergies bacitracin (From Neosporin ([id number])) Allergy (Mild, Verified 12/07/23 13:35) localized redness neomycin (From Neosporin ([id number])) Allergy (Mild, Verified 12/07/23 13:35) localized redness polymyxin B (From Neosporin ([id number])) Allergy (Mild, Verified 12/07/23 13:35) localized redness Active Medications Generic Name Dose Route Start Last Admin Trade Name Nataliia PRN Reason Stop Dose Admin Sodium Chloride 0 ml 12/23/23 14:57 12/23/23 17:58 Normal Saline Flush 10 Ml Syr IVP 10 ml PRN PRN Administration IV IV Catheter Type [Right Peripheral IV Forearm] Diagnostics 12/23/23 Range/Units 15:17 WBC 6.67 (4.4-10.8) 10^3/uL RBC 3.49 L (3.93-5.22) 10^6/uL Hgb 12.1 (11.2-15.7) g/dL Hct 35.2 L (36.0-46.0) % MCV 101 H (80-95) fL MCH 34.7 H (27.0-33.0) pg MCHC 34.4 (32.0-36.0) % RDW 16.0 H (11.7-14.6) % Plt Count 331 (130-400) 10^3/uL MPV 10.8 (8.0-11.0) fL Immature Gran % 0.3 % Neutrophils % 82.2 % Lymphocytes % 9.9 % Monocytes % 7.0 % Eosinophils % 0.0 % Basophils % 0.6 % Nucleated RBC % 0.0 (0.0-0.3) % Absolute Neutrophils 5.48 (1.2-6.7) 10^3/uL Absolute Lymphocytes 0.66 L (1.2-3.4) 10^3/uL Absolute Monocytes 0.47 (0.1-0.8) 10^3/uL Absolute Eosinophils 0.00 (0.0-0.7) 10^3/uL Absolute Basophils 0.04 (0.0-0.2) 10^3/uL ESR 33 H (0-30) mm/hr VBG Lactate 2.3 H* (0.6-1.4) mmol/L Sodium 129 L (136-145) mmol/L Potassium 4.1 (3.5-5.1) mmol/L Chloride 90 L (98-107) mmol/L Carbon Dioxide 26.3 (21.0-32.0) mmol/L Anion Gap 12.7 H (3-11) mmol/L BUN 4 L (7-18) mg/dL Creatinine 0.8 (0.55-1.02) mg/dL Est GFR (CKD-EPI 2020) 83.26 (mL/min/1.73m2) Glucose 88 (74-106) mg/dL Calcium 9.4 (8.5-10.1) mg/dL Total Bilirubin 1.00 (0.2-1.0) mg/dL AST 61 H (15-37) U/L ALT 21 (14-59) U/L Alkaline Phosphatase 210 H (46-116) U/L C-Reactive Protein 2.34 H (<or=0.5) mg/dL Total Protein 6.5 (6.4-8.2) g/dL Albumin 2.2 L (3.4-5.0) g/dL Procalcitonin < 0.1 ng/mL 12/23/23 16:35 Anaerobic Culture - Pending Leg - Left Lower 12/23/23 15:40 Blood Culture - Pending Blood 12/23/23 15:17 Blood Culture - Pending Blood Intake and Output - 24 Hour Total 12/23/23 14:11 thru 12/23/23 17:40 Weight 53.07 kg Other: Urine Appearance Clear Falls Risk Assessment History of Falls Previous History 12/23/23 17:57 Contributing Factors No Factors 12/23/23 17:57 Ambulatory Aids Independent 12/23/23 17:57 Tubes/Lines None 12/23/23 17:57 Gait Evaluation No gait disturbance 12/23/23 17:57 Cognition No cognitive impairment 12/23/23 17:57 Fall Total Score 15 12/23/23 17:57 Level of Risk Standard/Low Risk 12/23/23 17:57 Problems (Last Reviewed 12/23/23 @ 16:41 by Philly Cisneros MD) Hypotension (Acute) Cellulitis (Acute) Discharge planning issues (Acute) Duodenitis without hemorrhage (Acute) Portal hypertensive gastropathy (Acute) Contraindication to deep vein thrombosis prophylaxis (Acute) COPD (chronic obstructive pulmonary disease) (Chronic) Cellulitis (Acute) Bilateral leg ulcer (Acute) v v v v v v v v v Sending and/or Receiving Nurses: Please use comment section below to note any information pertinent to the patient hand-off not included above. Information / Comments: Pt to [facility] floor from ED. Room 226. Orders received from CHIP SEPARATOR. Wound consult at this time. Meds from home to pharmacy. Report received from: GEETA Reed
[2023-12-23] MEDS: Normal Saline 500 ML IV (18:55)
[2023-12-23] MEDS: Ketorolac 15 MG/ML VIAL IVP (19:07)
[2023-12-23] MEDS: HYDROmorphone 2 MG/ML SYR 0.5 MG IVP (19:08)
[2023-12-23] MEDS: VANCOMYCIN/WATER (PEG) 1.5 GM/300 ML BAG IVPB (19:14)
[2023-12-23 19:17] VITALS: BP 119/85; PULSE 116
--- NOTE | 2023-12-23 19:22 | PHA.ACLINAW ---
Renal Dosing Renal Dosing: BUN 4 mg/dL (7-18) L 12/23/23 15:17 Creatinine 0.8 mg/dL (0.55-1.02) 12/23/23 15:17 Anticoagulation Anticoagulation: Hgb 12.1 g/dL (11.2-15.7) 12/23/23 15:17 Hct 35.2 % (36.0-46.0) L 12/23/23 15:17 Plt Count 331 10^3/uL (130-400) 12/23/23 15:17 Creatinine 0.8 mg/dL (0.55-1.02) 12/23/23 15:17 Relevant Labs Relevant Labs: ESR 33 mm/hr (0-30) H 12/23/23 15:17 Sodium 129 mmol/L (136-145) L 12/23/23 15:17 Potassium 4.1 mmol/L (3.5-5.1) 12/23/23 15:17 Chloride 90 mmol/L (98-107) L 12/23/23 15:17 C-Reactive Protein 2.34 mg/dL (<or=0.5) H 12/23/23 15:17 DM Control DM Control: Glucose 88 mg/dL (74-106) 12/23/23 15:17 Pharmacy Antibiotic Review Relevant Labs: Relevant Labs 12/23/23 15:17 C-Reactive Protein 2.34 H Procalcitonin < 0.1 Comments: VANCOMYCIN RANDOM LEVEL ORDERED FOR 12/23@0400 Loading dose: N/A Regimen: 750 mg IV every 12 hours. Start time: 19:17 on 12/23/2023 Exposure target: [id number] mg/L AUC24,ss: 543 mg/L.hr Probability of AUC24 > 400: 82 % Ctrough,ss: 17.5 mg/L Probability of Ctrough,ss > 20: 37 % Probability of nephrotoxicity (Lodise JENARO 2008): 13 %
[2023-12-23] MEDS: Ondansetron O.D.T. 4 MG TABEF PO (20:55)
[2023-12-23] MEDS: diphenhydrAMINE 25 MG CAP PO (20:56)
[2023-12-23 21:11] LABS: Lactate 1.3 mmol/L (0.6-1.4)
[2023-12-23] MEDS: Normal Saline - Diluent 50 ML VIAL IJ ×2 (21:17→21:19)
--- NOTE | 2023-12-23 21:33 | WOUNDCONS_ITS ---
Date of service: 12/23/23 Time of Service: 19:00 Wound Initial Evaluation Narrative Narrative: Pt is a 63 year old female admitted for cellulitis of her lower extremities and of sepsis. Blood pressures in the ED in the 80's systolic with heart rate in the 110-120 range. Pt afebrile. WBC 6.67, ESR 33, Lactate 2.3, CRP 2.34, Procalcitonin <0.1, Na 129, Albumin 2.2. Pt is cachectic and states that she has had difficulty eating. Has heartburn frequently with nausea and vomiting. Pt is a heavy drinker with 6-7 martinis daily and is a smoker. History includes; GI bleed, GERD, COPD, PE, pulmonary nodule, pancreatitis, and ascites. She is seen in the ED frequently for a variety of complaints. First noted to have leg wounds on visit on 12/01/23 where she stated a TV fell on her. Xrays taken on 12/02/23 show soft tissue swelling but no fractures. No further films have been taken. Body Four View: 2 1. Left foot/heel 2. Right foot/heel 3. Right posterior tib/fib 4. Right anterior tib/fib 5. Right lateral tib/fib 6. Left anterior tib/fib 7. Left anterior knee 8. Gluteal cleft Wound Left Foot: Wound Type: Deep Tissue Injury (DTI) Pressure Ulcer Stage: Eschar/Unstageable Wound General Appearance: Open to air and Other (Purple boggy) Wound Bed Greatest Portion: Other (Deep purple) Wound Length: 0.39 in Wound Width: 0.39 in Wound Drainage Amount: None Wound Drainage Odor: None/Absent Wound Debridement Method: Gauze Wound Debridement Result: Pt Unable to Tolerate Wound Debridement Amount of Tissue Removed: None Additional Other Comments: Toes dusky to purple in color, cold to touch. Boggy area lateral foot at 5th metatarsal head. Right Foot: Wound Type: Pressure Ulcer, Deep Tissue Injury (DTI) ([place] great metatarsal head, boggy) and Partial Thickness (heel peeling) Pressure Ulcer Stage: II (heel) Wound General Appearance: Open to air, Draining and Unapproximated Wound Bed Greatest Portion: Pale [place] and Dusky Red Wound Bed Lesser Portion: Dusky Red Wound Surrounding Tissue Appearance: Purple, Shiny, Edematous and Weeping Wound Drainage Amount: Minimal Wound Drainage Odor: None/Absent Wound Drainage Description: Serous Wound Topical Solution/Irrigant: Saline Irrigant Wound Debridement Method: Gauze Wound Debridement Result: Pt Unable to Tolerate and Yellow Sloughing Remains Wound Debridement Amount of Tissue Removed: Minimal Right Posterior Tib/Fib(lower leg): Wound Type: Laceration, Deep Tissue Injury (DTI) and Partial Thickness Pressure Ulcer Stage: Eschar/Unstageable (Area of partial thickness surrounded by deep purple ecchymosis, deep tissue injury) Wound General Appearance: Open to air, Draining, Bleeding, Necrotic and Unapproximated Wound Bed Greatest Portion: Dusky Red and Yellow (Slough) Wound Bed Lesser Portion: Other (deep purple) Wound Surrounding Tissue Appearance: Bright Red, Purple, Edematous and Weeping Percent of Wound Bed Granulated/Red: 10 Percent of Wound Bed Slough/Yellow: 50 Percent of Wound Bed Eschar/Black: 40 Wound Length: 2.36 in Wound Width: 0.79 in Wound Depth: 0.04 in (to deep tissue injury) Wound Drainage Amount: Minimal Wound Drainage Odor: None/Absent Wound Drainage Description: Bloody, Purulent and Green Wound Topical Solution/Irrigant: Saline Irrigant Wound Debridement Method: Gauze Wound Debridement Result: Pt Unable to Tolerate and Yellow Sloughing Remains Wound Debridement Amount of Tissue Removed: Minimal Right Anterior Tib/Fib(lower leg): Wound Type: Laceration and Deep Tissue Injury (DTI) Wound General Appearance: Open to air, Blackened, Necrotic and Unapproximated Wound Bed Greatest Portion: Yellow (Slough) Wound Bed Lesser Portion: Black (Eschar) Wound Surrounding Tissue Appearance: Bright Red (edges, surrounded by pale), Blanched/Dull, Edematous and Edges Rolled Percent of Wound Bed Granulated/Red: 0 Percent of Wound Bed Slough/Yellow: 90 Percent of Wound Bed Eschar/Black: 10 Wound Length: 3.15 in Wound Width: 0.51 in Wound Depth: 0.12 in Wound Drainage Amount: None Wound Drainage Odor: None/Absent Wound Topical Solution/Irrigant: Saline Irrigant Wound Debridement Method: Conservative Sharp (Used a curette to remove and devitalized tissue. ) Wound Debridement Result: Pt Unable to Tolerate and Yellow Sloughing Remains Wound Debridement Amount of Tissue Removed: Moderate Right Lateral Tib/Fib(lower leg): Wound Type: Abrasion, Statis Ulcer and Partial Thickness Wound General Appearance: Open to air and Unapproximated (yellow slough) Wound Bed Greatest Portion: Yellow (Slough) Wound Bed Lesser Portion: Pale [place] Wound Surrounding Tissue Appearance: Purple and Edematous Percent of Wound Bed Granulated/Red: 25 Percent of Wound Bed Slough/Yellow: 75 Wound Length: 2.17 in Wound Width: 1.57 in Wound Depth: 0.04 in Wound Drainage Amount: Minimal Wound Drainage Odor: None/Absent Wound Drainage Description: Green Wound Topical Solution/Irrigant: Saline Irrigant Wound Debridement Method: Gauze Wound Debridement Result: Pt Unable to Tolerate and Yellow Sloughing Remains Wound Debridement Amount of Tissue Removed: Minimal Left Anterior Tib/Fib(lower leg): Wound Type: Abrasion, Statis Ulcer and Partial Thickness Wound General Appearance: Open to air, Draining, Necrotic and Unapproximated Wound Bed Greatest Portion: Yellow (Slough) Wound Bed Lesser Portion: Red (Granulation) and Black (Eschar) Wound Surrounding Tissue Appearance: Bright Red, Shiny and Edematous Percent of Wound Bed Granulated/Red: 10 Percent of Wound Bed Slough/Yellow: 80 Percent of Wound Bed Eschar/Black: 10 Wound Length: 2.56 in Wound Width: 4 ft 6 in Wound Depth: 0.12 in Wound Drainage Amount: Moderate Wound Drainage Odor: None/Absent Wound Drainage Description: Brown and Green Wound Topical Solution/Irrigant: Saline Irrigant Wound Debridement Method: Conservative Sharp (Used a curette to remove and devitalized tissue) Wound Debridement Result: Pt Unable to Tolerate and Yellow Sloughing Remains Wound Debridement Amount of Tissue Removed: Moderate Left Anterior Knee: Wound Type: Abrasion Pressure Ulcer Stage: Eschar/Unstageable Wound General Appearance: Open to air and Other (brown eschar) Wound Bed Greatest Portion: Black (Eschar) Wound Surrounding Tissue Appearance: Blanched/Dull Percent of Wound Bed Granulated/Red: 0 Percent of Wound Bed Slough/Yellow: 0 Percent of Wound Bed Eschar/Black: 100 Wound Length: 0.24 in Wound Width: 0.51 in Wound Drainage Amount: None Wound Drainage Odor: None/Absent Wound Topical Solution/Irrigant: Saline Irrigant Wound Debridement Method: Gauze Wound Debridement Result: Necrotic Remains Wound Debridement Amount of Tissue Removed: None Gluteal cleft and bilateral ischial tuberosities: Wound Type: Abrasion (shearing injury) Pressure Ulcer Stage: I Wound General Appearance: Well Approximated, Open to air and Clean/Dry Wound Bed Greatest Portion: Pale [place] Wound Surrounding Tissue Appearance: Blanched/Dull Wound Length: 4.33 in Wound Width: 2.36 in Wound Depth: 0 in Wound Drainage Amount: None Wound Drainage Odor: None/Absent Wound Topical Solution/Irrigant: Saline Irrigant Wound Debridement Method: Gauze Wound Debridement Result: Healthy Tissue Revealed Wound Debridement Amount of Tissue Removed: Minimal Circulation, Sensation, Motion Edema Degree: 2+ Peripheral Pulse Strength: Weak Capillary Refill: Greater than 3 seconds Sensation Description: Hyperesthesia, Coldness and Pain Skin Temperature: Cold Skin Color: Dusky (purple) DARIN Comment:: Pt unable to tolerate due to pain. Pain Pain Level: 8 Pain Scale Used: Adult Pain Description: Burning, Throbbing, Chronic and Achy Additional Other Comments: Pt was medicated with tylenol IV, toradol, and dilaudid Wound Summary Wound Summary: Pt with multiple wounds from traumatic injury exacerbated by poor circulation and lack in self care to the wounds. Had candid discussion with patient regarding the severity of her wounds and her overall condition with sepsis. Discussed the importance of a good protein intake and abstinence from alcohol. Also discussed the risks if self neglect continues with the potential of loss of limbs. Pt verbalized understanding of information and stated she was shocked by the information of her wounds being so severe. States she was told there was no infection and that they were healing well. Cultures were taken at this time. Photo Photo: Thighs Treatment/Dressing Change Topicals/Ointments: Santyl (Santyl to all open wounds on her bilateral legs.) and Zincoxide ([place] tube to buttocks.) Cleanse With: Betadine ([place] bilateral heels with Betadine.) and Saline (All areas.) Dressing Types: Alginate ([place]) (Alginate to all open wounds on legs.), Kerlix (Gauze Roll) (To feet and legs.) and Mepilex Ag w/Border (Sacral mepilex size small.) Nutrition Education Reviewed Nutrition Education: Yes Note: Discussed good protein intake and alcohol cessation. Recomendation Recomendation:: Gluteal cleft, ischial tuberosities: 1. Wash area with soap and water or saline. Pat dry. 2. Apply [place] tube of zinc oxide. 3. Apply Skin prep to ivan-wound skin. 4. Apply small sacral Mepilex. 5. Change every 3-5 days and prn. Bilateral leg wounds: 1. Pre medicate patient. 2. Apply viscious of lidocaine to wounds and allow to dwell for 10-15 minutes. 3. Cleanse areas with sterile Saline. Wipe dry with gauze. 4. Apply a nickel thin layer of Santyl to all open wounds. 5. Cover with Maxorb II Alginate dressing. 6. [place] heels with betadine. 7. Wrap with kerlix roll starting at the toes and working up the legs until all areas are covered. 8. Change daily and prn. Keep legs elevated to help decrease edema. Foam booties at all times except to ambulate or during care. Physcian/Nurse Practioner Notified: Yes Referrals: Dietary and Other (May need vascular intervention.Possible Podiatry) Treatment Time Time Total Time Spent with Patient: 2.5 hours
[2023-12-23] MEDS: Omnipaque 350 MG/ML 100 ML BTL IJ (21:41)
[2023-12-23] MEDS: Omnipaque 350 MG/ML 50 ML BTL IJ (21:42)
[2023-12-23] MEDS: Pantoprazole 40 MG TABCR PO (21:53)
[2023-12-23] MEDS: Gabapentin 300 MG CAP PO (21:54)
[2023-12-23] MEDS: Nicotine 2 MG LOZG SUC (21:54)
[2023-12-23] MEDS: Lidocaine 2% Viscous 15 ML CUP (22:10)
[2023-12-23 22:45] VITALS: BP 90/54; PULSE 117; RESP 19; TEMP 36.2; O2SAT 99
--- NOTE | 2023-12-23 22:56 | DI.VRAD_ITS ---
PROCEDURE INFORMATION: Exam: CTA Abdominal Aorta and Bilateral Lower Extremities (Run-off) With Contrast Exam date and time: 12/23/2023 9:20 PM Age: 63 years old Clinical indication: Other: Bilateral lower ext vascular wounds TECHNIQUE: Imaging protocol: Computed tomographic angiography of the of the abdominal aorta, pelvis and bilateral lower extremities with contrast. 3D rendering (Not supervised by radiologist): MIP and/or 3D reconstructed images were created by the technologist. Contrast material: OMNI 350; Contrast volume: 150 ml; Contrast route: INTRAVENOUS (IV); COMPARISON: CT CHEST PE ABD PELVIS W 12/01/2023 10:38 PM FINDINGS: Aorta: There is moderate to severe atherosclerosis of the abdominal aorta.The aorta and common iliac arteies are tortous which may represent longstanding hypertension is [place] atherosclerosis within the mid infrarenal abdominal aorta with resultant mild 30-40% stenosis. 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 There is reconstitution of the distal branches of the celiac artery through the arc of [place] and the pancreaticoduodenal arcade. 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 The distal branches of the superior mesenteric artery are widely patent. The inferior mesenteric artery shows severe stenosis at its origin but the proximal and distal inferior mesenteric artery is filled through collaterals. Renal arteries: There is a single renal artery supplying the right kidney with moderate to severe atherosclerotic plaquing and approximately 60-70% stenosis the proximal right renal artery. There is a single renal artery supplying the left kidney. There is severe atherosclerosis involving the left renal artery with approximately 50% stenosis of the left renal artery. Right iliac arteries: Moderate atherosclerosis of the right common iliac, external iliac without significant atherosclerosis of the right internal iliac artery. No evidence of flow limiting stenoses. Right femoral/popliteal arteries: The right common femoral artery shows mild atherosclerosis without flow-limiting stenosis. The right common femoral artery, proximal right deep and superficial femoral arteries are otherwise widely patent without evidence of significant occlusive or aneurysmal disease. There is mild atherosclerosis of the proximal right superficial femoral artery. There is a focal 50% stenosis of the distal right superficial femoral artery. which is otherwise widely patent without evidence of thrombosis, intimal flap/dissection, pseudoaneurysm or aneurysmal dilatation. The right popliteal artery is widely patent without evidence of thrombosis, intimal flap/dissection, pseudoaneurysm or aneurysmal dilatation. Right infrapopliteal arteries: The right anterior tibial artery shows moderate atherosclerosis in its proximal and midportion but seen to flow to its terminal branches, the right common tibioperoneal trunk shows mild atherosclerosis but is seen to flow to its terminal branches, the right posterior tibial artery is mildly disease without evidence of flow-limiting stenosis. The peroneal artery shows segmental occlusions but is seen to flow through its terminal branches at the ankle. Left iliac arteries: Moderate atherosclerosis of the left common iliac and external iliac arteries without evidence of flow limiting stenosis. No significant atherosclerosis of the left internal iliac artery. The left common iliac artery, left internal iliac artery, left external iliac artery are widely patent without evidence of significant occlusive or aneurysmal disease. Left femoral/popliteal arteries: The left common femoral artery, proximal left deep and superficial femoral arteries are widely patent without evidence of significant occlusive or aneurysmal disease. The left superficial femoral artery shows moderate to severe atherosclerosis at its origin proximally within approximately 60 % stenosis and an additional 50% stenosis at the proximal to mid left superficial femoral artery but otherwise is widely patent without evidence of thrombosis, intimal flap/dissection, pseudoaneurysm or aneurysmal dilatation. The left popliteal artery is widely patent without evidence of thrombosis, intimal flap/dissection, pseudoaneurysm or aneurysmal dilatation. Left infrapopliteal arteries: The left anterior tibial artery shows severe atherosclerosis at its proximal portion but the vessel is seen to flow to its terminal branches. There is moderate to severe plaquing of the left common tibioperoneal trunk at its origin and distal portion. The left peroneal artery shows moderate to severe atherosclerosis. The left peroneal artery seen to flow contiguously to its terminal branches The left posterior tibial artery shows mild atherosclerosis and is seen to flow contiguously to its terminal branches.. Veins: The portal, mesenteric and splenic veins are patent.The inferior venacava appears normal. Lungs: There is heterogeneous attenuation of the pulmonary parenchyma, consistent with air trapping from underlying small airways disease. There are diffuse interstitial infiltrates present. This may represent cardiogenic versus noncardiogenic edema. An acute inflammatory process and/or infectious process/pneumonia are not excluded. Liver: There is a diffuse decrease in hepatic parenchymal density, consistent with moderate fatty infiltration. There is no evidence of intrahepatic or extrahepatic biliary ductal dilation. Gallbladder and biliary ducts: The gallbladder is normal. There is no cholelitiasis, wall thickening or pericholecystic fluid to suggest cholecystitis. Pancreas: There is moderate to severe pancreatic atrophy and fatty replacement. Spleen: The spleen is normal. Adrenal glands: The adrenal glands are normal. Kidneys and ureters: The kidneys are normal. Stomach and bowel: There is no evidence of intestinal obstruction. There are fluid-filled loops of small bowel with air-fluid levels. No significant bowel wall thickening or inflammatory changes. No evidence of obstruction. Consider early enteritis. Consider mesenteric ischemia. Appendix: A normal appendix is identified. There is no evidence of distention or periappendiceal inflammation to suggest appendicitis. Urinary bladder: The bladder is moderately distended. Reproductive: There appears to have been a partial hysterectomy. Intraperitoneal space: There is no free intraperitoneal air. There is no evidence of free intraperitoneal or pelvic fluid. Lymph nodes: There is no evidence of lymphadenopathy. Bones/joints: Moderate degenerative changes of the lumbar spine. Anterior compression fracture of L1 is unchanged compared to 12/01/2023. The skeletal structures and soft tissues show no evidence of fracture or other acute processes. There is a fracture of the right greater trochanter which may be acute. Soft tissues: The extra-abdominal soft tissues are normal. There has been a left femoral hip nailing for fracture of the left femur. The lesser and greater trochanters show fragmentation but the remaining portion of the left femur appears intact. The extra-abdominal soft tissues are normal. IMPRESSION: 1. There is a fracture of the right greater trochanter which may be acute. 2. There is heterogeneous attenuation of the pulmonary parenchyma, consistent with air trapping from underlying small airways disease. 3. There are diffuse interstitial infiltrates present. This may represent cardiogenic versus noncardiogenic edema. An acute inflammatory process and/or infectious process/pneumonia are not excluded. 4. There are fluid-filled loops of small bowel with air-fluid levels. No significant bowel wall thickening or inflammatory changes. No evidence of obstruction. Consider early enteritis. Consider mesenteric ischemia. 5. There has been a left femoral hip nailing for fracture of the left femur. The lesser and greater trochanters show fragmentation but the remaining portion of the left femur appears intact. 6. There is moderate to severe atherosclerosis of the abdominal aorta.The aorta and common iliac arteies are tortous which may represent longstanding hypertension is [place] atherosclerosis within the mid infrarenal abdominal aorta with resultant mild 30-40% stenosis. 7. 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 There is reconstitution of the distal branches of the celiac artery through the arc of [place] and the pancreaticoduodenal arcade. 8. 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 9. The inferior mesenteric artery shows severe stenosis at its origin but the proximal and distal inferior mesenteric artery is filled through collaterals. 10. There is a single renal artery supplying the right kidney with moderate to severe atherosclerotic plaquing and approximately 60-70% stenosis the proximal right renal artery. 11. There is a single renal artery supplying the left kidney. There is severe atherosclerosis involving the left renal artery with approximately 50% stenosis of the left renal artery. 12. Moderate arterial inflow disease, moderate to severe outflow disease and moderate runoff disease bilaterally. 13. 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 14. Probable hemodynamically significant right renal artery stenosis. Dictated and Authenticated by: All Avalos MD. Ordering:LURDES Huerta MD
--- NOTE | 2023-12-24 | DI.RAD_ITS ---
Exam(s) XR HIP PELVIS ADULT BL EXAM: XR HIP PELVIS ADULT BL CLINICAL HISTORY: questionable fracture right hip. TECHNIQUE: 2D digital imaging was performed. Three views. COMPARISON: CT CT CHEST PE ABD PELVIS W from 09/13/2023 CR,XR XR ABDOMEN FLAT UPRIGHT from 12/04/2023 FINDINGS: BONES: Nondisplaced fracture of right greater trochanter again noted. This was noted on previous exa minations. Hardware noted proximal left femur. No bony destructive lesion is seen. JOINTS: No dislocation present. SI joints and pubic symphysis are unremarkable. SOFT TISSUE: Residual contrast noted in urinary bladder. IMPRESSION: Stable fracture of the right greater trochanter. Stable appearance of left proximal femur with hardw are in place. DATA REPOSITORY: RADIATION DOSE DELIVERED:
[2023-12-24] MEDS: Acetaminophen 325 MG TAB 650 MG PO ×5 (01:21→22:51)
[2023-12-24 04:08] LABS: Abs Immature Grans 0.03 10^3/uL (0.0-0.06); Absolute Basophil Count 0.05 10^3/uL (0.0-0.2); Absolute Eosinophil Count 0.08 10^3/uL (0.0-0.7); Absolute Lymphocyte Count 1.27 10^3/uL (1.2-3.4); Absolute Monocyte Count 0.68 10^3/uL (0.1-0.8); Absolute Neutrophil Count 5.26 10^3/uL (1.2-6.7); Basophils % 0.7 %; Eosinophils % 1.1 %; HCT 26.8 % (36.0-46.0); HGB 8.9 g/dL (11.2-15.7); Immature Grans % 0.4 %; Lymphocytes % 17.2 %; MCH 34.1 pg (27.0-33.0); MCHC 33.2 % (32.0-36.0); MCV 103 fL (80-95); MPV 10.6 fL (8.0-11.0); Monocytes % 9.2 %; Neutrophils % 71.4 %; Platelet Count 200 10^3/uL (130-400); RBC 2.61 10^6/uL (3.93-5.22); RDW 16.1 % (11.7-14.6); RDW-SD 60.8 fL; WBC 7.37 10^3/uL (4.4-10.8)
[2023-12-24 04:41] LABS: BUN 4 mg/dL (7-18); CREATININE 0.7 mg/dL (0.55-1.02); Calcium 8.1 mg/dL (8.5-10.1); Chloride 96 mmol/L (98-107); Estimated GFR 97.72 (mL/min/1.73m2); Glucose 83 mg/dL (74-106); Sodium 129 mmol/L (136-145); Vancomycin, Random 18.7 ug/mL
[2023-12-24 04:48] LABS: Potassium 2.4 mmol/L (3.5-5.1)
[2023-12-24 04:53] VITALS: BP 102/71; PULSE 86; RESP 16; TEMP 36.1; O2SAT 95
[2023-12-24] MEDS: Potassium Chloride Liquid 20 MEQ PKT 40 MEQ PO (06:11)
[2023-12-24] MEDS: POTASSIUM CHLORIDE/0.9% NACL 1,000 ML 125 MEQ IV ×2 (06:11→16:00)
[2023-12-24 08:00] VITALS: BP 97/51; PULSE 96; RESP 22; TEMP 36.2; O2SAT 100
[2023-12-24] MEDS: Thiamine 100 MG TAB 250 MG PO (09:15)
[2023-12-24] MEDS: Sucralfate 1 GM TAB PO ×3 (09:17→22:46)
[2023-12-24] MEDS: Gabapentin 300 MG CAP PO (09:17)
[2023-12-24] MEDS: Magnesium Oxide 400 MG TAB 200 MG PO (09:17)
[2023-12-24] MEDS: Potassium Chloride 20 MEQ TABCR PO ×2 (09:17→15:49)
[2023-12-24] MEDS: Enoxaparin 40 MG/0.4 ML SYR SC (09:18)
[2023-12-24] MEDS: Pantoprazole 40 MG TABCR PO ×2 (09:18→19:35)
[2023-12-24] MEDS: Normal Saline Flush 10 ML SYR IVP ×3 (09:18→21:42)
[2023-12-24 09:36] LABS: HCT 29.8 % (36.0-46.0); HGB 9.8 g/dL (11.2-15.7)
--- NOTE | 2023-12-24 09:49 | PDOC.CMIN ---
Date of service: 12/24/23 Time of Service: 09:50 Care Management Initial Assmt Initial Assessment Reason for Hospitalization: cellulitis Functional Status/Living Situation Patient Presentation: Bonifacio was lying in bed when CM met with her. She engaged easily with CM, known to her from previous admissions. Bonifacio was complaining of severe pain in her legs. She explained that an old, large, flat screen TV fell on her legs and she has multiple wounds which are very painful. She stated that Jasmyn and Dexter (2 med-Surg nurses) have been working diligently to get her pain under control and she is very appreciative of their efforts. Bonifacio was admitted with cellulitis of both lower extremities and is being treated with IV antibiotics. In addition, she has hypokalemia and hyponatremis, both of which will be repleted. Bonifacio is currently receiving nursing services for wound care.i Town of Residence: [facility] Resides with: Alone Significant Other/Family: Local (has 2 sisters who live locally) Natural Supports: no children, never Employment Status: Retired ([employer]) Instrumental Activities of Daily Living (ADLs): Independent Medications Medication Management: No Issues/Barriers identified Advance Directives Advance Directives: Do you have an Advance Directive: N 08/15/23 14:16 AD On File at [facility]: N 08/15/23 14:16 Date Asked 12/23/23 12/23/23 14:33 AD Date Reviewed COLST On File at [facility] Yes 08/15/23 14:16 COLST Date Scanned 01/03/21 08/15/23 14:16 Code Status Resuscitation Status Full Code Portal Pt does not currently have a portal and education provided: No Insurance Coverage/Financial Issues Insurance: BC/BS Federal Financial Assist 85 Care Team Visit Care Team Role Provider Type MARIANO KEARNEY NP Primary Care Provider NON-[facility] STAFF PHYSICIAN Veronika Oleary RDN, [facility] Other Providers HR ADMINISTRATIVE ASSISTANT Love David Other Providers HR ADMINISTRATIVE ASSISTANTMARIS Muro RDN Other Providers HR ADMINISTRATIVE ASSISTANT Philly Cisneros MD Emergency Provider [facility] STAFF PHYSICIAN Juan Altman MD Admit Provider [facility] STAFF PHYSICIAN Attending Provider Discharge Potential Discharge Needs: PCP F/U Appt Anticipated Barriers to Discharge: None Identified Patient/Family Education Needs: Review discharge instructions, discuss Ask Me Three Transportation: RCT Plan: Anticipate Bonifacio will be discharged home with no new services when medically cleared. She will follow up with her PCP and plan of care and transport via RCT coordinated by CM. CM will follow and continue to assess for discharge needs. [facility] All Active Problems (Updated 12/23/23 @ 16:47 by Philly Cisneros MD) Hypotension (Acute) Cellulitis (Acute) Discharge planning issues (Acute) Leg pain (Acute) COPD (chronic obstructive pulmonary disease) (Chronic) Hypomagnesemia (Acute) Weakness of neck (Acute) Elevated ferritin (Acute) Compression fracture of L1 lumbar vertebra (Acute) Steatosis (Acute) Mild Duodenitis without hemorrhage (Acute) Portal hypertensive gastropathy (Acute) Wound of right lower extremity (Acute) into the fat layer Superior mesenteric artery stenosis (Acute) Renal artery stenosis (Acute) Contraindication to deep vein thrombosis prophylaxis (Acute) Diverticulosis (Acute) Celiac artery stenosis (Acute) Atherosclerosis of abdominal aorta (Acute) Severe Coronary artery calcification seen on CAT scan (Acute) Gastritis (Acute) Lacerations of multiple sites of leg (Acute) Weakness (Acute) COPD with acute exacerbation (Acute) COPD (chronic obstructive pulmonary disease) (Chronic) Shortness of breath (Acute) Tobacco dependence syndrome (Chronic) Edema, peripheral (Acute) Cellulitis of left leg (Acute) Ambulatory dysfunction (Acute) Edema of both lower legs (Acute) Congestive heart failure (Chronic) COPD exacerbation (Acute) Cellulitis (Acute) Severe sepsis (Acute) Prolonged QT interval (Acute) Respiratory failure (Acute) Sepsis (Acute) Shock (Acute) Hypomagnesemia (Acute) Difficulty walking (Acute) PVD (peripheral vascular disease) (Chronic) Acute hypokalemia (Acute) Hypoglycemia (Acute) Alcoholic ketoacidosis (Acute) Laceration of scalp (Acute) Fall (Acute) Chronic left hip pain (Acute) Contusion of hip (Acute) Closed intertrochanteric fracture of left hip (Acute) s/p IMN fixation (05/18/23) Smoker (Acute) Closed fracture of left hip (Acute) Anxiety (Chronic) Cavitary lesion of lung (Acute) Tobacco use disorder (Acute 01/28/14) Pleural effusion (Acute) Hypomagnesemia (Acute) Fluid overload (Acute) Chest wall muscle strain (Acute) Hypokalemia (Acute) Emphysema lung (Acute) Nicotine dependence, cigarettes, uncomplicated (Acute) Atherosclerosis (Acute) Gastric wall thickening (Acute) Stenosis of right internal carotid artery (Acute) Mass of upper lobe of right lung (Acute) Alcohol abuse (Chronic) Dehydration (Acute) Diarrhea (Acute) Hypomagnesemia (Chronic) B12 deficiency (Acute) Hypocalcemia (Chronic) Ascites (Acute) Chronic liver disease (Chronic) Weight loss, non-intentional (Acute) Early satiety (Acute) Folate deficiency (Acute) Hypomagnesemia (Acute) Hypokalemia (Acute) Leg pain (Acute) Bilateral leg ulcer (Acute) Medical History GI bleeding Right upper quadrant abdominal pain Leg pain Hypokalemia Chest pain due to GERD Gastroenteritis Hypotension Macrocytic anemia Advanced care planning/counseling discussion Palliative care patient Pneumonia Pulmonary nodule COPD (chronic obstructive pulmonary disease) Hypomagnesemia Cachexia Hepatic fibrosis Ulcer of lower extremity Hair loss Vitamin D deficiency Chest pain Gastroesophageal reflux disease Hx pulmonary embolism COPD (chronic obstructive pulmonary disease) Chronic vomiting Malnutrition Frequent falls Bilateral leg pain Pancreatitis Diastolic dysfunction Folate deficiency anemia Ascites Bilateral lower extremity edema Unintentional weight loss Alcohol abuse Tobacco abuse Surgical History History of esophagogastroduodenoscopy (~12/2023) punch biopsy, skin of ankle, right lateral (11/24/16) negative for malignancy, sparse inflammation and reactive blood vessels foot surgery (~2000) Ligation of fallopian tube (~1999) ENT/Nasal surgery (~2007) Family History Father Lung disease Cancer Lung Social History Smoking/Tobacco Use Status: Current every day Tobacco Type: cigarettes Tobacco: How many years used: 45 Quit status: considering quitting Second Hand Exposure: Yes Smoking risk assessment performed?: Yes Alcohol Intake: current Alcohol Intake frequency: 3 or more drinks per day Alcohol type: wine and hard liquor Counseling given: Yes Counseling provided: provider counseling Drug use: Never Substance use type: marijuana Housing: apartment Current gender identity: female Do you feel safe at home: Yes Do you feel safe in your relationship?: Yes Additional Social history: Lives alone in studio in [facility], 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 Grew up in [facility] [place], sisters in area. History History Para 0 Hx # Term Pregnancies Multiple births Hx # Pregnancies Ectopic pregnancies AB induced Hx Number of Living Children AB spontaneous SDOH(Care Management) Screening Will the Patient Participate in the Screening?: Declined to provide Anticipated HH Services Anticipated HH Services at Discharge [facility] RN (resume RN for wound care) Anticipated Date of Discharge: 11/30/23..
[2023-12-24] MEDS: Tiotropium/Olodaterol 10 PUFF INHALER 2 PUFF IH (10:11)
[2023-12-24] MEDS: Ketorolac 15 MG/ML VIAL IVP ×2 (10:27→17:01)
--- NOTE | 2023-12-24 10:49 | DI.VRAD_ITS ---
PROCEDURE INFORMATION: Exam: XR Bilateral Hips Exam date and time: 12/24/2023 8:56 AM Age: 63 years old Clinical indication: Other: Questionable FX of right hip TECHNIQUE: Imaging protocol: Radiologic exam of the bilateral hips. Views: 3 or 4 views of hips with pelvis when performed. COMPARISON: 1. CT CHEST PE ABD PELVIS W 12/01/2023 10:[address] ABD AORTA CTA W RUNOFF 12/23/2023 9:20 PM FINDINGS: Bones/joints: Persistent fracture in the right greater trochanter again noted and previously seen on CT of the chest abdomen and pelvis dated 12/01/2023; best visualized on the coronal reconstruction images. Persistent fracture lines in the proximal left femur in this patient status post surgical fixation. The right hip is poorly visualized on the AP view, due to poor radiographic penetration. Pelvis is grossly intact on this single AP view. Soft tissues: Unremarkable. IMPRESSION: 1. Persistent fracture in the right greater trochanter again noted and previously seen on CT of the chest, abdomen, and pelvis dated 12/01/2023. 2. Persistent fracture lines in the proximal left femur in this patient status post surgical fixation. Dictated and Authenticated by: Juan Francisco Ware MD. Ordering:TATUM Martinez MD
[2023-12-24] MEDS: Nicotine 2 MG LOZG SUC ×3 (11:05→17:07)
[2023-12-24] MEDS: VANCOMYCIN/WATER (PEG) 1 GM/200 ML BAG IVPB (11:43)
[2023-12-24] MEDS: oxyCODONE 5 MG TAB PO (11:58)
[2023-12-24] MEDS: Gabapentin 300 MG CAP 600 MG PO ×2 (13:49→19:34)
--- NOTE | 2023-12-24 15:15 | W.PM.PROGNOT ---
Date of Service Date of service: 12/24/23 Time of Service: 15:15 Assessment and Plan Assessment and plan (1) Cellulitis: Status: Acute Assessment and plan: Continue vancomycin pharmacy dosing Cultures pending Trend lactic acid IV fluid bolus (2) Bilateral leg ulcer: Status: Acute Assessment and plan: Wound care consult placed Did have a trauma to her lower extremities on a television set earlier in November, Bilateral tib-fib x-rays negative for fracture leg on 12/02/2023 with pain secondary to soft tissue trauma from an injury with a TV set and then seen on 2 occasions 12/17 and 12/19 for leg pain with no evidence of infection. (3) GI bleeding: Assessment and plan: Hemoglobin stable with no evidence or symptoms of active bleeding Protonix 40 mg twice a day and Carafate before meals and at bedtime. portal gastropathy and duodenitis but no acute bleeding on recent EGD in early November. Dr. Damon elected not to pursue colonoscopy at that time, arrange as an outpatient if indicated. Of note patient did not required a transfusion on that previous admission. Qualifiers: GI bleed type/associated pathology: gastrointestinal hemorrhage with hematemesis Qualified Code(s): K92.0 - Hematemesis (4) Portal hypertensive gastropathy: Status: Acute Assessment and plan: As above (5) Duodenitis without hemorrhage: Status: Acute Assessment and plan: As above (6) Hepatic fibrosis: (7) COPD (chronic obstructive pulmonary disease): Status: Chronic Assessment and plan: Not experiencing any acute exacerbation. continue home inhaler with as needed albuterol or duoneb. Qualifiers: COPD type: chronic bronchitis Chronic bronchitis type: mixed simple and mucopurulent Qualified Code(s): J41.8 - Mixed simple and mucopurulent chronic bronchitis (8) Pulmonary nodule: Assessment and plan: 1.1 cm spiculated mass right upper lobe will need follow-up with pulmonary services for bronchoscopy and biopsy (9) Frequent falls: Assessment and plan: Consult physical therapy to evaluate and treat for generalized weakness and deconditioning. (10) Contraindication to deep vein thrombosis prophylaxis: Status: Acute Assessment and plan: contraindicated with recent GI bleeding (11) Discharge planning issues: Status: Acute Assessment and plan: Patient remains a full code Will continue to have discussions with her given her multiple comorbidities and new finding of a right upper lobe mass. anticipate home with services vs rehab. physical therapy when medically appropriate discussed with DR Altman Subjective Subjective Patient reports: still having pain (bilateral feet pain, ) and afebrile; denies shortness of breath Exam Const General: cooperative, comfortable and no acute distress Orientation: alert, awake and oriented x3 HENMD Head: normal to inspection, normocephalic and atraumatic Mouth: moist mucous membranes abnormal (Slightly dry) Eyes General: appearance normal, both eyes and all related structures Alignment and Position: alignment normal Conjunctivae: conjunctivae normal Sclera: sclerae normal EOM: EOM intact bilaterally Neck Neck: normal visual inspection and full ROM Resp Effort & Inspection: normal respiratory effort and able to speak in complete sentences Auscultation: clear to auscultation bilaterally Cardio Rate: regular rate Rhythm: regular rhythm GI Palpation: soft, not firm, no guarding and nontender Auscultation: normal bowel sounds Back/Spine/Pelvis Back: No back tenderness Skin Lesions: lesion noted (bilateral lower extremities, unstageable, see pictures and wound care consu) Rashes: rashes noted (left lower extremity, erythema) Neuro General: patient alert, patient awake, patient oriented x3 and moves all extremities Extrem General: normal to inspection, full ROM and edema (left greater than right) Psych Appearance: grossly normal Mental Status: mental status grossly normal Speech and Movement: speech and movement normal Mood: congruent mood Affect: normal affect Objective Last Vital Signs Temp 36.2 C L 12/24/23 08:00 Pulse 96 H 12/24/23 08:00 Resp 22 12/24/23 08:00 BP 97/51 L 12/24/23 08:00 Pulse Ox 100 12/24/23 08:00 Laboratory Results - last 24 hr 12/23/23 12/23/23 12/24/23 15:17 21:04 04:00 WBC 6.67 7.37 RBC 3.49 L 2.61 L Hgb 12.1 8.9 L D Hct 35.2 L 26.8 L MCV 101 H 103 H MCH 34.7 H 34.1 H MCHC 34.4 33.2 RDW 16.0 H 16.1 H Plt Count 331 200 MPV 10.8 10.6 Immature Gran % 0.3 0.4 Neutrophils % 82.2 71.4 Lymphocytes % 9.9 17.2 Monocytes % 7.0 9.2 Eosinophils % 0.0 1.1 Basophils % 0.6 0.7 Nucleated RBC % 0.0 0.0 Absolute Neutrophils 5.48 5.26 Absolute Lymphocytes 0.66 L 1.27 Absolute Monocytes 0.47 0.68 Absolute Eosinophils 0.00 0.08 Absolute Basophils 0.04 0.05 ESR 33 H VBG Lactate 2.3 H* 1.3 Sodium 129 L 129 L Potassium 4.1 2.4 L* D Chloride 90 L 96 L Carbon Dioxide 26.3 26.0 Anion Gap 12.7 H 7.0 BUN 4 L 4 L Creatinine 0.8 0.7 Est GFR (CKD-EPI 2020) 83.26 97.72 Glucose 88 83 Calcium 9.4 8.1 L Total Bilirubin 1.00 AST 61 H ALT 21 Alkaline Phosphatase 210 H C-Reactive Protein 2.34 H Total Protein 6.5 Albumin 2.2 L Procalcitonin < 0.1 Random Vancomycin 18.7 ABO/Rh Antibody Screen 12/24/23 09:23 WBC RBC Hgb 9.8 L Hct 29.8 L MCV MCH MCHC RDW Plt Count MPV Immature Gran % Neutrophils % Lymphocytes % Monocytes % Eosinophils % Basophils % Nucleated RBC % Absolute Neutrophils Absolute Lymphocytes Absolute Monocytes Absolute Eosinophils Absolute Basophils ESR VBG Lactate Sodium Potassium Chloride Carbon Dioxide Anion Gap BUN Creatinine Est GFR (CKD-EPI 2020) Glucose Calcium Total Bilirubin AST ALT Alkaline Phosphatase C-Reactive Protein Total Protein Albumin Procalcitonin Random Vancomycin ABO/Rh A Positive Antibody Screen NEGATIVE PAWSS Have you Been Recently Intoxicated or Drunk Within the Last 30 days?: Yes Have you Ever Experienced Previous Episodes of Alcohol Withdrawal?: No Have you ever Experienced Withdrawal Seizures?: No Have you ever Experienced Delirium Tremens(DT)s?: No Have you ever undergone Alcohol Rehabilitation Treatment (i.e, inpt ot outpatient treatment programs)?: No Have you ever Experienced Blackouts?: No Have you ever Combined Alcohol with other Downers within the last 90 days?: No Have you ever Combined Alcohol with any other Substance of Abuse during the last 90 days?: Yes Positive Blood Alcohol level on Presentation? [PCS.BAL]: No Evidence of Increased Autonomic Activity (i.e. HR>120, tremor, sweating, agitation, nausea)?: No Result: 3 Time Spent with Patient Time Spent with Patient: 35-49 minutes Time was spent: preparing to see the patient(eg.review tests), obtaining and/or reviewing separately otained hiistory, ordering medications,tests, procedures, indepentently interpreting results and counseling the patient
[2023-12-24 16:13] VITALS: BP 100/60; PULSE 65; RESP 15; TEMP 36.3; O2SAT 92
[2023-12-24] MEDS: HYDROmorphone 2 MG/ML SYR 0.5 MG IVP (19:34)
[2023-12-24 19:55] VITALS: BP 104/69; PULSE 100; RESP 18; TEMP 36.4; O2SAT 94
[2023-12-24] MEDS: Lidocaine 2% Jelly 6 ML SYR TP (20:40)
[2023-12-24] MEDS: Ondansetron O.D.T. 4 MG TABEF PO (21:04)
[2023-12-25] MEDS: Nicotine 2 MG LOZG SUC ×6 (00:04→20:34)
[2023-12-25] MEDS: Ketorolac 15 MG/ML VIAL IVP ×3 (00:11→12:22)
[2023-12-25] MEDS: Normal Saline Flush 10 ML SYR IVP ×5 (00:12→20:35)
[2023-12-25] MEDS: oxyCODONE 5 MG TAB PO ×4 (02:03→21:53)
[2023-12-25] MEDS: Acetaminophen 325 MG TAB 650 MG PO ×2 (04:14→20:34)
[2023-12-25 06:45] LABS: Abs Immature Grans 0.04 10^3/uL (0.0-0.06); Absolute Basophil Count 0.07 10^3/uL (0.0-0.2); Absolute Lymphocyte Count 0.98 10^3/uL (1.2-3.4); Absolute Monocyte Count 0.48 10^3/uL (0.1-0.8); Absolute Neutrophil Count 6.17 10^3/uL (1.2-6.7); Basophils % 0.9 %; Eosinophils % 1.3 %; HCT 28.3 % (36.0-46.0); HGB 9.1 g/dL (11.2-15.7); Immature Grans % 0.5 %; Lymphocytes % 12.5 %; MCH 34.3 pg (27.0-33.0); MCHC 32.2 % (32.0-36.0); MCV 107 fL (80-95); MPV 11.7 fL (8.0-11.0); Monocytes % 6.1 %; Neutrophils % 78.7 %; Platelet Count 136 10^3/uL (130-400); RBC 2.65 10^6/uL (3.93-5.22); RDW 16.8 % (11.7-14.6); RDW-SD 65.4 fL; WBC 7.84 10^3/uL (4.4-10.8)
[2023-12-25 07:00] LABS: Anion Gap 9.5 mmol/L (3-11); BUN 5 mg/dL (7-18); CO2 17.5 mmol/L (21.0-32.0); CREATININE 0.8 mg/dL (0.55-1.02); Calcium 7.4 mg/dL (8.5-10.1); Chloride 101 mmol/L (98-107); Estimated GFR 83.26 (mL/min/1.73m2); Glucose 68 mg/dL (74-106); Sodium 128 mmol/L (136-145)
[2023-12-25 07:04] LABS: Potassium 5.8 mmol/L (3.5-5.1)
--- NOTE | 2023-12-25 07:14 | W.PM.PROGNOT ---
Date of Service Date of service: 12/25/23 Time of Service: 16:29 Assessment and Plan Assessment and plan (1) Hyperkalemia: Status: Acute Assessment and plan: Potassium level is elevated this morning at 5.8 but this is in the setting of supplemental potassium administration for hypokalemia on admission stop supplemental potassium and follow (2) Cellulitis: Status: Acute Assessment and plan: Continue vancomycin pharmacy dosing Cultures pending in the setting of Severe PAD. lactic acid normalized no further trending (3) Bilateral leg ulcer: Status: Acute Assessment and plan: Wound care consult placed Vascular ulcers. Aorta runoff CTA demonstrates significant stenosis. Will need vascular consultation, (see discussion in problem #4 regarding palliative care consultation) Did have a trauma to her lower extremities on a television set earlier in November, Bilateral tib-fib x-rays negative for fracture leg on 12/02/2023 with pain secondary to soft tissue trauma from an injury with a TV set and then seen on 2 occasions 12/17 and 12/19 for leg pain with no evidence of infection. (4) Atherosclerosis of abdominal aorta: Status: Acute Assessment and plan: Will need vascular consultation has been on hospice prior but revoked it as she is non compliant and multiple AMA departures from the hospital, I feel that palliative care consultation would be beneficial prior to arranging transfer for revascularization to discuss goals and limits of care. (5) Fracture of greater trochanter of right femur: Status: Acute Assessment and plan: Incidental finding on imaging with no reports of pain Orthopedic consultation with previous review of images with fracture seen on imaging from December 03 but not on imaging that was done in August Please see full consultation for details but in brief: this fracture is thought to be 3 to 4 weeks old, will not require any surgical intervention. Recommendations for assistive ambulation using 4 point gait. With her history of frequent falls recommendations are for walker at all times for gait safety and stability. No further outpatient follow-up required. (6) GI bleeding: Assessment and plan: Hemoglobin stable with no evidence or symptoms of active bleeding Protonix 40 mg twice a day and Carafate before meals and at bedtime. portal gastropathy and duodenitis but no acute bleeding on recent EGD in early November. Dr. Damon elected not to pursue colonoscopy at that time, arrange as an outpatient if indicated. Of note patient did not required a transfusion on that previous admission. Qualifiers: GI bleed type/associated pathology: gastrointestinal hemorrhage with hematemesis Qualified Code(s): K92.0 - Hematemesis (7) Portal hypertensive gastropathy: Status: Acute Assessment and plan: As above (8) Duodenitis without hemorrhage: Status: Acute Assessment and plan: As above (9) Hepatic fibrosis: (10) COPD (chronic obstructive pulmonary disease): Status: Chronic Assessment and plan: Not experiencing any acute exacerbation. continue home inhaler with as needed albuterol or duoneb. Qualifiers: COPD type: chronic bronchitis Chronic bronchitis type: mixed simple and mucopurulent Qualified Code(s): J41.8 - Mixed simple and mucopurulent chronic bronchitis (11) Pulmonary nodule: Assessment and plan: 1.1 cm spiculated mass right upper lobe will need follow-up with pulmonary services for bronchoscopy and biopsy (12) Frequent falls: Assessment and plan: Consult physical therapy to evaluate and treat for generalized weakness and deconditioning. (13) Contraindication to deep vein thrombosis prophylaxis: Status: Acute Assessment and plan: contraindicated with recent GI bleeding (14) Discharge planning issues: Status: Acute Assessment and plan: Patient remains a full code Will continue to have discussions with her given her multiple comorbidities and new finding of a right upper lobe mass. anticipate home with HH services vs rehab. physical therapy when medically appropriate discussed with DR Altman Exam Const General: cooperative, comfortable and no acute distress Orientation: alert, awake and oriented x3 HENMT Head: normal to inspection, normocephalic and atraumatic Mouth: moist mucous membranes abnormal (Slightly dry) Eyes General: appearance normal, both eyes and all related structures Alignment and Position: alignment normal Conjunctivae: conjunctivae normal Sclera: sclerae normal EOM: EOM intact bilaterally Neck Neck: normal visual inspection and full ROM Resp Effort & Inspection: normal respiratory effort and able to speak in complete sentences Auscultation: clear to auscultation bilaterally Cardio Rate: regular rate Rhythm: regular rhythm GI Palpation: soft, not firm, no guarding and nontender Auscultation: normal bowel sounds Back/Spine/Pelvis Back: No back tenderness Skin Lesions: lesion noted (bilateral lower extremities, unstageable, see pictures and wound care consu) Rashes: rashes noted (left lower extremity, erythema) Neuro General: patient alert, patient awake, patient oriented x3 and moves all extremities Extrem General: normal to inspection, full ROM and edema (left greater than right) Psych Appearance: grossly normal Mental Status: mental status grossly normal Speech and Movement: speech and movement normal Mood: congruent mood Affect: normal affect Objective Last Vital Signs Temp 36.4 C L 12/24/23 19:55 Pulse 100 H 12/24/23 19:55 Resp 18 12/24/23 19:55 BP 104/69 12/24/23 19:55 Pulse Ox 94 12/24/23 19:55 Laboratory Results - last 24 hr 12/24/23 12/25/23 09:23 06:14 WBC 7.84 RBC 2.65 L Hgb 9.8 L 9.1 L Hct 29.8 L 28.3 L MCV 107 H D MCH 34.3 H MCHC 32.2 RDW 16.8 H Plt Count 136 MPV 11.7 H Immature Gran % 0.5 Neutrophils % 78.7 Lymphocytes % 12.5 Monocytes % 6.1 Eosinophils % 1.3 Basophils % 0.9 Nucleated RBC % 0.0 Absolute Neutrophils 6.17 Absolute Lymphocytes 0.98 L Absolute Monocytes 0.48 Absolute Eosinophils 0.10 Absolute Basophils 0.07 Sodium 128 L Potassium 5.8 H D Chloride 101 Carbon Dioxide 17.5 L Anion Gap 9.5 BUN 5 L Creatinine 0.8 Est GFR (CKD-EPI 2020) 83.26 Glucose 68 L Calcium 7.4 L ABO/Rh A Positive Antibody Screen NEGATIVE PAWSS Have you Been Recently Intoxicated or Drunk Within the Last 30 days?: Yes Have you Ever Experienced Previous Episodes of Alcohol Withdrawal?: No Have you ever Experienced Withdrawal Seizures?: No Have you ever Experienced Delirium Tremens(DT)s?: No Have you ever undergone Alcohol Rehabilitation Treatment (i.e, inpt ot outpatient treatment programs)?: No Have you ever Experienced Blackouts?: No Have you ever Combined Alcohol with other Downers within the last 90 days?: No Have you ever Combined Alcohol with any other Substance of Abuse during the last 90 days?: Yes Positive Blood Alcohol level on Presentation? [PCS.BAL]: No Evidence of Increased Autonomic Activity (i.e. HR>120, tremor, sweating, agitation, nausea)?: No Result: 3 Time Spent with Patient Time Spent with Patient: 35-49 minutes Time was spent: preparing to see the patient(eg.review tests), obtaining and/or reviewing separately otained hiistory, ordering medications,tests, procedures, indepentently interpreting results and counseling the patient
[2023-12-25 07:46] VITALS: BP 98/67; PULSE 101; RESP 19; TEMP 36.4; O2SAT 100
[2023-12-25] MEDS: Magnesium Oxide 400 MG TAB 200 MG PO (08:04)
[2023-12-25] MEDS: Gabapentin 300 MG CAP 600 MG PO ×3 (08:04→20:33)
[2023-12-25] MEDS: Thiamine 100 MG TAB 250 MG PO (08:04)
[2023-12-25] MEDS: Pantoprazole 40 MG TABCR PO ×2 (08:05→20:33)
[2023-12-25] MEDS: Sucralfate 1 GM TAB PO ×4 (08:05→20:35)
[2023-12-25] MEDS: Tiotropium/Olodaterol 10 PUFF INHALER 2 PUFF IH (08:09)
--- NOTE | 2023-12-25 08:40 | OCONE_ITS ---
History of Present Illness Narrative: Bonifacio is a 63-year-old female who I know previously for multiple falls. She is status post intervention nail fixation of a displaced left intertrochanteric fracture suffered in May 2023. She recovered fairly well from this. She was seen in the office which showed minimal healing although clinical improvement with pain. She has had multiple falls since that time. She has been seen on multiple occasions for falling and for her chronic alcohol abuse. She presented most recently, about 2 days ago, to the emergency department for worsening ulcerations and pain about her bilateral lower extremities. There is concern for active cellulitis and she was admitted to the hospital for management. CT scan with runoff was performed to evaluate for vascularity and vascular disease of the lower extremities. This showed what appeared to be a nondisplaced greater trochanteric fracture on the right hip in addition to notable arterial stenosis throughout the pelvis. I was called in consultation for the greater trochanter fracture. She primarily reports pain in her lower extremities from the knee down. She does have some generalized pain about the hips bilaterally but without specific details. She denies any significant setback in regards to the right hip with any of her previous falls. Consults Consult date: 12/24/23 Requesting physician: Deanna Weller Consult Reason Right greater trochanteric fracture Assessment and Plan Assessment and plan (1) Fracture of greater trochanter of right femur: Status: Acute Assessment and plan: Bonifacio is a 63-year-old female who has frequent falls. She has had multiple falls in the recent past but never diagnosed with a right greater trochanteric fracture. On CT scan performed during this hospitalization for leg pain and ulceration she was found to have a fracture of the right greater trochanter. I went back and reviewed through other imaging and actually it seems like she had this back on November 30 as seen on the CT scan of the chest abdomen pelvis performed on November 30. There is another CT of the abdomen pelvis performed on September 12 which I also reviewed where I do not see the fracture of the greater trochanter. Therefore, somewhere between early August and November 30 she fractured her right greater trochanter. At this point, now she is at least 3 to 4 weeks out from the fracture and without any significant complaints. These are usually stable injuries and do not require any surgical intervention. Usually assistive ambulation would be recommended with a 4 point gait although at this point probably is not completely necessary. Just given her history of frequent falls and general deconditioning I would recommend the use of a walker for ambulation. No further follow-up about the right hip is required. (2) Closed intertrochanteric fracture of left hip: Status: Acute Assessment and plan: Continued fracture lines present on the left intertrochanteric hip fracture. Transfix with intramedullary device without signs of failure. At this point continue to follow it. This may go on to a nonunion although that be extremely unlikely but could be related to vascular compromise or nutritional deficits. Qualifiers: Encounter type: initial encounter Fracture alignment: displaced Q ualified Code(s): S72.142A - Displaced intertrochanteric fracture of left femur, initial encounter for closed fracture Review of Systems All systems reviewed & are unremarkable except as noted in HPI and below PFSH All Active Problems (Updated 12/25/23 @ 08:46 by Jeronimo Feliciano MD) Fracture of greater trochanter of right femur (Acute) Hyperkalemia (Acute) Hypotension (Acute) Cellulitis (Acute) Discharge planning issues (Acute) Leg pain (Acute) COPD (chronic obstructive pulmonary disease) (Chronic) Hypomagnesemia (Acute) Weakness of neck (Acute) Elevated ferritin (Acute) Compression fracture of L1 lumbar vertebra (Acute) Steatosis (Acute) Mild Duodenitis without hemorrhage (Acute) Portal hypertensive gastropathy (Acute) Wound of right lower extremity (Acute) into the fat layer Superior mesenteric artery stenosis (Acute) Renal artery stenosis (Acute) Contraindication to deep vein thrombosis prophylaxis (Acute) Diverticulosis (Acute) Celiac artery stenosis (Acute) Atherosclerosis of abdominal aorta (Acute) Severe Coronary artery calcification seen on CAT scan (Acute) Gastritis (Acute) Lacerations of multiple sites of leg (Acute) Weakness (Acute) COPD with acute exacerbation (Acute) COPD (chronic obstructive pulmonary disease) (Chronic) Shortness of breath (Acute) Tobacco dependence syndrome (Chronic) Edema, peripheral (Acute) Cellulitis of left leg (Acute) Ambulatory dysfunction (Acute) Edema of both lower legs (Acute) Congestive heart failure (Chronic) COPD exacerbation (Acute) Cellulitis (Acute) Severe sepsis (Acute) Prolonged QT interval (Acute) Respiratory failure (Acute) Sepsis (Acute) Shock (Acute) Hypomagnesemia (Acute) Difficulty walking (Acute) PVD (peripheral vascular disease) (Chronic) Acute hypokalemia (Acute) Hypoglycemia (Acute) Alcoholic ketoacidosis (Acute) Laceration of scalp (Acute) Fall (Acute) Chronic left hip pain (Acute) Contusion of hip (Acute) Closed intertrochanteric fracture of left hip (Acute) s/p IMN fixation (05/18/23) Smoker (Acute) Closed fracture of left hip (Acute) Anxiety (Chronic) Cavitary lesion of lung (Acute) Tobacco use disorder (Acute 01/28/14) Pleural effusion (Acute) Hypomagnesemia (Acute) Fluid overload (Acute) Chest wall muscle strain (Acute) Hypokalemia (Acute) Emphysema lung (Acute) Nicotine dependence, cigarettes, uncomplicated (Acute) Atherosclerosis (Acute) Gastric wall thickening (Acute) Stenosis of right internal carotid artery (Acute) Mass of upper lobe of right lung (Acute) Alcohol abuse (Chronic) Dehydration (Acute) Diarrhea (Acute) Hypomagnesemia (Chronic) B12 deficiency (Acute) Hypocalcemia (Chronic) Ascites (Acute) Chronic liver disease (Chronic) Weight loss, non-intentional (Acute) Early satiety (Acute) Folate deficiency (Acute) Hypomagnesemia (Acute) Hypokalemia (Acute) Leg pain (Acute) Bilateral leg ulcer (Acute) Medical History GI bleeding Right upper quadrant abdominal pain Leg pain Hypokalemia Chest pain due to GERD Gastroenteritis Hypotension Macrocytic anemia Advanced care planning/counseling discussion Palliative care patient Pneumonia Pulmonary nodule COPD (chronic obstructive pulmonary disease) Hypomagnesemia Cachexia Hepatic fibrosis Ulcer of lower extremity Hair loss Vitamin D deficiency Chest pain Gastroesophageal reflux disease Hx pulmonary embolism COPD (chronic obstructive pulmonary disease) Chronic vomiting Malnutrition Frequent falls Bilateral leg pain Pancreatitis Diastolic dysfunction Folate deficiency anemia Ascites Bilateral lower extremity edema Unintentional weight loss Alcohol abuse Tobacco abuse Surgical History History of esophagogastroduodenoscopy (~12/2023) punch biopsy, skin of ankle, right lateral (11/24/16) negative for malignancy, sparse inflammation and reactive blood vessels foot surgery (~2000) Ligation of fallopian tube (~1999) ENT/Nasal surgery (~2007) Family History Father Lung disease Cancer Lung Social History Smoking/Tobacco Use Status: Current every day Tobacco Type: cigarettes Tobacco: How many years used: 45 Quit status: considering quitting Second Hand Exposure: Yes Smoking risk assessment performed?: Yes Alcohol Intake: current Alcohol Intake frequency: 3 or more drinks per day Alcohol type: wine and hard liquor Counseling given: Yes Counseling provided: provider counseling Drug use: Never Substance use type: marijuana Housing: apartment Current gender identity: female Do you feel safe at home: Yes Do you feel safe in your relationship?: Yes Additional Social history: Lives alone in studio in [facility], 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 Grew up in [facility], sisters in area. History History 2 Para 0 Hx # Term Pregnancies Multiple births Hx # Pregnancies Ectopic pregnancies AB induced Hx Number of Living Children AB spontaneous Exam Narrative Exam Narrative: Sitting up in hospital bed. No acute distress. Alert and orient x 3 per Valuation of the left hip shows a well-healed incision. No significant swelling. No signs of infection. Evaluation of the right hip once again shows no significant swelling. No significant pain to palpation. Results Last Vital Signs Temp 36.4 C L 12/25/23 07:46 Pulse 101 H 12/25/23 07:46 Resp 19 12/25/23 07:46 BP 98/67 L 12/25/23 07:46 Pulse Ox 100 12/25/23 07:46 Labs 12/25/23 06:14 12/25/23 06:14 Labs: Laboratory Results - last 24 hr 12/24/23 12/25/23 09:23 06:14 WBC 7.84 RBC 2.65 L Hgb 9.8 L 9.1 L Hct 29.8 L 28.3 L MCV 107 H D MCH 34.3 H MCHC 32.2 RDW 16.8 H Plt Count 136 MPV 11.7 H Immature Gran % 0.5 Neutrophils % 78.7 Lymphocytes % 12.5 Monocytes % 6.1 Eosinophils % 1.3 Basophils % 0.9 Nucleated RBC % 0.0 Absolute Neutrophils 6.17 Absolute Lymphocytes 0.98 L Absolute Monocytes 0.48 Absolute Eosinophils 0.10 Absolute Basophils 0.07 Sodium 128 L Potassium 5.8 H D Chloride 101 Carbon Dioxide 17.5 L Anion Gap 9.5 BUN 5 L Creatinine 0.8 Est GFR (CKD-EPI 2020) 83.26 Glucose 68 L Calcium 7.4 L ABO/Rh A Positive Antibody Screen NEGATIVE Imaging Imaging Studies: X-ray of the hips with pelvis was performed. This shows intervention nail fixation of a left intertrochanteric fracture. There is been no displacement of the fracture fragments. However, there is no significant signs of healing. On the right side there is some contour abnormality of the greater trochanter seen primarily at the superior lateral aspect of the trunk about the vastus ridge. There is no apparent fracture into the femoral neck. CT scan of the right hip and pelvis was reviewed. This was done for a vascular study and I focused primarily on the bony structures. Once again the intertrochanteric fracture about the left hip is seen without significant healing of the fracture fragments with multiple fragments in place although there is maybe some opacification seen superiorly at the greater trochanter. On the right side there is a fracture of the greater trochanter involving the posterior aspect of the greater trochanter extending down towards the shoulder of the neck junction but not into the femoral neck.
[2023-12-25] MEDS: Enoxaparin 40 MG/0.4 ML SYR SC (08:52)
[2023-12-25 09:05] VITALS: RESP 17
[2023-12-25] MEDS: VANCOMYCIN/WATER (PEG) 1 GM/200 ML BAG IVPB (12:21)
[2023-12-25 16:27] VITALS: BP 90/56; PULSE 102; RESP 18; TEMP 36.6; O2SAT 99
[2023-12-25 19:54] VITALS: BP 90/64; PULSE 83; RESP 18; TEMP 36.3; O2SAT 98
[2023-12-26] MEDS: Acetaminophen 325 MG TAB 650 MG PO ×2 (00:59→10:40)
[2023-12-26] MEDS: Nicotine 2 MG LOZG SUC ×3 (01:00→09:48)
[2023-12-26] MEDS: Ketorolac 15 MG/ML VIAL IVP (01:17)
[2023-12-26] MEDS: Normal Saline Flush 10 ML SYR IVP ×3 (01:18→08:28)
[2023-12-26] MEDS: oxyCODONE 5 MG TAB PO ×2 (03:41→10:40)
--- NOTE | 2023-12-26 05:29 | PCNE_ITS ---
Date of service: 12/26/23 Time of Service: 05:30 History of Present Illness History of Present Illness Chief Complaint: leg wounds and weakness Narrative: From H and P History of Present Illness History of Present Illness Chief Complaint: bilateral leg wounds Narrative: This is a 63-year-old female patient well-known to the hospitalist service with frequent admissions for multiple chronic illnesses with history of alcohol use disorder, noncompliance, GI bleed, COPD with ongoing tobacco abuse, heart failure, hypoxic respiratory failure who presents to the emergency department today with bilateral leg ulcers increased erythema and ambulatory dysfunction. Her workup in the emergency department is concerning for cellulitis. She was given vancomycin IV, hospitalist services contacted to admit for further management which she is agreeable to. Normally a pt of Pily Hazel MD who is not here today Interim Hx: I am meeting with Fannie at the request of hospitalist and care managers. She is a 63-year-old woman who is well acquainted with an [facility]. She stated that she has been having a run of bad luck. She has been in a wheelchair for the last 5 months because of her leg weakness. She also dropped a large TV on the front of her legs and has bruises etc. She recently fractured her hip. She was admitted because of leg wounds and ambulatory dysfunction. Mostly what she wanted to talk about was how she could get outside to smoke a cigarette. There are plans for her to go to [facility] perhaps today. She needs revascularization of her legs and hopefully will be able to help improve her ambulatory and healing after the surgery. Again she reminded me that she wants to go outside to have a cigarette. She is concerned that if she does go outside to have a cigarette that then she will be able to get her pain medications. Assessment and Plan Assessment and plan (1) Alcohol abuse: Status: Chronic Assessment and plan: This admission she did not have an elevated alcohol (2) Tobacco dependence syndrome: Status: Chronic Assessment and plan: Wants to get outside as soon as possible to have a cigarette. She states that nicotine gum does not help (3) Advanced care planning/counseling discussion: Status: Acute Assessment and plan: Advanced care planning?she is interested in getting to [facility] in hopes of having the revascularization which will then allow her to walk again. It has been 5 months since she is wheelchair-bound. We did speak specifically about CPR. She was adamant that she does not want intubation or be hooked up to a machine, nor does she want chest compressions which could result in rib fractures. She did feel that electrical means of resuscitation were acceptable to her. She understands that the risks of resuscitation include rib fractures, prolonged intubation etc. And that the overall success rate of CPR is approximately 10%. COLST was done. Original given to the patient. This will be filed with [facility] [place], [facility]. I was unable to find the hospitalist but the unit nursing stewarding supervisor will be certain that the document is given to the present hospitalist She is normally a patient of Dr. Hazel's. Dr. Hazel was not available today. She will follow-up with Dr. Hazel in the future. She very much liked her interactions with Dr. Hazel Review of Systems Narrative: States that she hurts in many places. The wound dressing which was recently changed as of last evening seems to be causing more pain and comfort. She wants to get outside to smoke a cigarette. PFSH All Active Problems (Updated 12/26/23 @ 08:09 by Bridgett Hearn MD, DC) Advanced care planning/counseling discussion (Acute) Fracture of greater trochanter of right femur (Acute) Hyperkalemia (Acute) Hypotension (Acute) Cellulitis (Acute) Leg pain (Acute) COPD (chronic obstructive pulmonary disease) (Chronic) Hypomagnesemia (Acute) Weakness of neck (Acute) Elevated ferritin (Acute) Compression fracture of L1 lumbar vertebra (Acute) Steatosis (Acute) Mild Duodenitis without hemorrhage (Acute) Portal hypertensive gastropathy (Acute) Wound of right lower extremity (Acute) into the fat layer Superior mesenteric artery stenosis (Acute) Renal artery stenosis (Acute) Contraindication to deep vein thrombosis prophylaxis (Acute) Diverticulosis (Acute) Celiac artery stenosis (Acute) Atherosclerosis of abdominal aorta (Acute) Severe Coronary artery calcification seen on CAT scan (Acute) Gastritis (Acute) Lacerations of multiple sites of leg (Acute) Weakness (Acute) COPD with acute exacerbation (Acute) COPD (chronic obstructive pulmonary disease) (Chronic) Shortness of breath (Acute) Edema, peripheral (Acute) Cellulitis of left leg (Acute) Ambulatory dysfunction (Acute) Edema of both lower legs (Acute) Congestive heart failure (Chronic) COPD exacerbation (Acute) Cellulitis (Acute) Severe sepsis (Acute) Prolonged QT interval (Acute) Respiratory failure (Acute) Sepsis (Acute) Shock (Acute) Hypomagnesemia (Acute) Difficulty walking (Acute) PVD (peripheral vascular disease) (Chronic) Acute hypokalemia (Acute) Hypoglycemia (Acute) Alcoholic ketoacidosis (Acute) Laceration of scalp (Acute) Fall (Acute) Chronic left hip pain (Acute) Contusion of hip (Acute) Closed intertrochanteric fracture of left hip (Acute) s/p IMN fixation (05/18/23) Discharge planning issues (Acute) Smoker (Acute) Closed fracture of left hip (Acute) Anxiety (Chronic) Cavitary lesion of lung (Acute) Tobacco use disorder (Acute 01/28/14) Pleural effusion (Acute) Hypomagnesemia (Acute) Fluid overload (Acute) Chest wall muscle strain (Acute) Hypokalemia (Acute) Emphysema lung (Acute) Nicotine dependence, cigarettes, uncomplicated (Acute) Atherosclerosis (Acute) Gastric wall thickening (Acute) Stenosis of right internal carotid artery (Acute) Mass of upper lobe of right lung (Acute) Alcohol abuse (Chronic) Hypomagnesemia (Chronic) Diarrhea (Acute) Dehydration (Acute) B12 deficiency (Acute) Hypocalcemia (Chronic) Tobacco dependence syndrome (Chronic) Bilateral leg ulcer (Acute) Leg pain (Acute) Hypokalemia (Acute) Hypomagnesemia (Acute) Folate deficiency (Acute) Early satiety (Acute) Weight loss, non-intentional (Acute) Chronic liver disease (Chronic) Ascites (Acute) Medical History GI bleeding Right upper quadrant abdominal pain Leg pain Hypokalemia Chest pain due to GERD Gastroenteritis Hypotension Macrocytic anemia Advanced care planning/counseling discussion Palliative care patient Pneumonia Pulmonary nodule COPD (chronic obstructive pulmonary disease) Hypomagnesemia Cachexia Hepatic fibrosis Ulcer of lower extremity Hair loss Vitamin D deficiency Chest pain Gastroesophageal reflux disease Hx pulmonary embolism COPD (chronic obstructive pulmonary disease) Chronic vomiting Malnutrition Frequent falls Bilateral leg pain Pancreatitis Diastolic dysfunction Folate deficiency anemia Ascites Bilateral lower extremity edema Unintentional weight loss Alcohol abuse Tobacco abuse Surgical History History of esophagogastroduodenoscopy (~12/2023) punch biopsy, skin of ankle, right lateral (07/26/17) negative for malignancy, sparse inflammation and reactive blood vessels foot surgery (~2000) Ligation of fallopian tube (~1999) ENT/Nasal surgery (~2007) Family History Father Lung disease Cancer Lung Social History Smoking/Tobacco Use Status: Current every day Tobacco Type: cigarettes Tobacco: How many years used: 45 Quit status: considering quitting Second Hand Exposure: Yes Smoking risk assessment performed?: Yes Alcohol Intake: current Alcohol Intake frequency: 3 or more drinks per day Alcohol type: wine and hard liquor Counseling given: Yes Counseling provided: provider counseling Drug use: Never Substance use type: marijuana Housing: apartment Current gender identity: female Do you feel safe at home: Yes Do you feel safe in your relationship?: Yes Additional Social history: Lives alone in studio in [facility], 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 Grew up in [facility], sisters in area. History History 2 Para 0 Hx # Term Pregnancies Multiple births Hx # Pregnancies Ectopic pregnancies AB induced Hx Number of Living Children AB spontaneous Exam Narrative Exam Narrative: 63-year-old woman who was sleeping when I arrived but woke up in a very good mood. She was smiling and interactive. She was cooperative although insisted that she get outside to have a cigarette. She was tachycardic. She was easily able to sit up. I did not remove her leg dressings. She had good air movement but some wheezing especially on the right side. She understood why she was in the hospital and had capacity Results Last Vital Signs Temp 97.3 F L 12/25/23 19:54 Pulse 83 12/25/23 19:54 Resp 18 12/25/23 19:54 BP 90/64 L 12/25/23 19:54 Pulse Ox 98 12/25/23 19:54 Labs 12/25/23 06:14 12/26/23 06:28 Labs: Laboratory Results - last 24 hr 12/25/23 06:14 WBC 7.84 RBC 2.65 L Hgb 9.1 L Hct 28.3 L MCV 107 H D MCH 34.3 H MCHC 32.2 RDW 16.8 H Plt Count 136 MPV 11.7 H Immature Gran % 0.5 Neutrophils % 78.7 Lymphocytes % 12.5 Monocytes % 6.1 Eosinophils % 1.3 Basophils % 0.9 Nucleated RBC % 0.0 Absolute Neutrophils 6.17 Absolute Lymphocytes 0.98 L Absolute Monocytes 0.48 Absolute Eosinophils 0.10 Absolute Basophils 0.07 Sodium 128 L Potassium 5.8 H D Chloride 101 Carbon Dioxide 17.5 L Anion Gap 9.5 BUN 5 L Creatinine 0.8 Est GFR (CKD-EPI 2020) 83.26 Glucose 68 L Calcium 7.4 L Laboratory Tests 10/04/23 12/01/23 12/23/23 21:47 19:45 15:17 Hct Sodium Potassium Calcium Albumin 2.2 L Ethyl Alcohol 198.3 H < 3.0 12/24/23 12/25/23 04:00 06:14 Hct 28.3 L Sodium 128 L Potassium 2.4 L* D 5.8 H D Calcium 7.4 L Albumin Ethyl Alcohol IMPRESSION: Stable fracture of the right greater trochanter. Stable appearance of left proximal femur with hardware in place. Time Spent Time Spent with Patient Time Spent(min): 42
[2023-12-26 05:36] VITALS: BP 109/70; PULSE 107; RESP 16; TEMP 36.7; O2SAT 100
[2023-12-26 06:58] LABS: Anion Gap 6.4 mmol/L (3-11); BUN 4 mg/dL (7-18); CO2 19.6 mmol/L (21.0-32.0); CREATININE 0.8 mg/dL (0.55-1.02); Calcium 7.8 mg/dL (8.5-10.1); Chloride 101 mmol/L (98-107); Estimated GFR 83.26 (mL/min/1.73m2); Glucose 85 mg/dL (74-106); Potassium 4.6 mmol/L (3.5-5.1); Sodium 127 mmol/L (136-145)
[2023-12-26 08:01] VITALS: BP 87/59; PULSE 100; RESP 17; TEMP 35.9; O2SAT 93
[2023-12-26] MEDS: Enoxaparin 40 MG/0.4 ML SYR SC (08:24)
[2023-12-26] MEDS: Gabapentin 300 MG CAP 600 MG PO (08:25)
[2023-12-26] MEDS: Sucralfate 1 GM TAB PO ×2 (08:26→11:25)
[2023-12-26] MEDS: Thiamine 100 MG TAB 250 MG PO (08:26)
[2023-12-26] MEDS: Magnesium Oxide 400 MG TAB 200 MG PO (08:26)
[2023-12-26] MEDS: Pantoprazole 40 MG TABCR PO (08:26)
[2023-12-26] MEDS: Tiotropium/Olodaterol 10 PUFF INHALER 2 PUFF IH (08:49)
--- NOTE | 2023-12-26 09:53 | NUR.NOTE ---
Nursing Note: Pt repeatedly wants to wait on her medications and place them on the bedside table. Explained that is is hospital policy that the nurse can not leave medications at bedside and they need to be administered before the nurse leaves the room. Pt did not like this, but took said medications.
--- NOTE | 2023-12-26 10:21 | PGE_ITS ---
Assessment and Plan Assessment and plan (1) Hyperkalemia: Status: Acute Assessment and plan: Potassium level is elevated this morning at 5.8 but this is in the setting of supplemental potassium administration for hypokalemia on admission stop supplemental potassium and follow (2) Cellulitis: Status: Acute Assessment and plan: Continue vancomycin pharmacy dosing Cultures pending in the setting of Severe PAD. lactic acid normalized no further trending (3) Bilateral leg ulcer: Status: Acute Assessment and plan: Wound care consult placed Vascular ulcers. Aorta runoff CTA demonstrates significant stenosis. Will need vascular consultation, (see discussion in problem #4 regarding palliative care consultation) Did have a trauma to her lower extremities on a television set earlier in November, Bilateral tib-fib x-rays negative for fracture leg on 12/02/2023 with pain secondary to soft tissue trauma from an injury with a TV set and then seen on 2 occasions 12/17 and 12/19 for leg pain with no evidence of infection. (4) Atherosclerosis of abdominal aorta: Status: Acute Assessment and plan[place] [facility] [place] wt[place]. Acosta initiated Celiac and SMA stenosis would not assist in lower extremities perfusion and wound healing Right Superficial Femoral: Focal 50 percent stenosis distally Left Superficial Femoral: Moderate to severe atherosclerotic changes with greater than 50 percent stenosis at the origin. 50 percent stenosis at proximal to mid portion has been on hospice prior but revoked it as she is non compliant and multiple AMA departures from the hospital, I feel that palliative care consultation would be beneficial prior to arranging transfer for revascularization to discuss goals and limits of care. (5) Fracture of greater trochanter of right femur: Status: Acute Assessment and plan: Incidental finding on imaging with no reports of pain Orthopedic consultation with previous review of images with fracture seen on imaging from December 03 but not on imaging that was done in August Please see full consultation for details but in brief: this fracture is thought to be 3 to 4 weeks old, will not require any surgical intervention. Recommendations for assistive ambulation using 4 point gait. With her history of frequent falls recommendations are for walker at all times for gait safety and stability. No further outpatient follow-up required. (6) GI bleeding: Assessment and plan: Hemoglobin stable with no evidence or symptoms of active bleeding Protonix 40 mg twice a day and Carafate before meals and at bedtime. portal gastropathy and duodenitis but no acute bleeding on recent EGD in early November. Dr. Damon elected not to pursue colonoscopy at that time, arrange as an outpatient if indicated. Of note patient did not required a transfusion on that previous admission. Qualifiers: GI bleed type/associated pathology: gastrointestinal hemorrhage with hematemesis Qualified Code(s): K92.0 - Hematemesis (7) Portal hypertensive gastropathy: Status: Acute Assessment and plan: As above (8) Duodenitis without hemorrhage: Status: Acute Assessment and plan: As above (9) Hepatic fibrosis: (10) COPD (chronic obstructive pulmonary disease): Status: Chronic Assessment and plan: Not experiencing any acute exacerbation. continue home inhaler with as needed albuterol or duoneb. IS Qualifiers: COPD type: chronic bronchitis Chronic bronchitis type: mixed simple and mucopurulent Qualified Code(s): J41.8 - Mixed simple and mucopurulent chronic bronchitis (11) Pulmonary nodule: Assessment and plan: 1.1 cm spiculated mass right upper lobe will need follow-up with pulmonary services for bronchoscopy and biopsy (12) Frequent falls: Assessment and plan: Consult physical therapy to evaluate and treat for generalized weakness and deconditioning. (13) Contraindication to deep vein thrombosis prophylaxis: Status: Acute Assessment and plan: contraindicated with recent GI bleeding (14) Discharge planning issues: Status: Acute Assessment and plan: Patient remains a full code Will continue to have discussions with her given her multiple comorbidities and new finding of a right upper lobe mass. anticipate home with services vs rehab. physical therapy when medically appropriate discussed with DR Altman Objective Last Vital Signs Temp 35.9 C L 12/26/23 08:01 Pulse 100 H 12/26/23 08:01 Resp 17 12/26/23 08:01 BP 87/59 L 12/26/23 08:01 Pulse Ox 93 12/26/23 08:01 Laboratory Results - last 24 hr 12/26/23 06:28 Sodium 127 L Potassium 4.6 D Chloride 101 Carbon Dioxide 19.6 L Anion Gap 6.4 BUN 4 L Creatinine 0.8 Est GFR (CKD-EPI 2020) 83.26 Glucose 85 Calcium 7.8 L PAWSS Have you Been Recently Intoxicated or Drunk Within the Last 30 days?: Yes Have you Ever Experienced Previous Episodes of Alcohol Withdrawal?: No Have you ever Experienced Withdrawal Seizures?: No Have you ever Experienced Delirium Tremens(DT)s?: No Have you ever undergone Alcohol Rehabilitation Treatment (i.e, inpt ot outpatient treatment programs)?: No Have you ever Experienced Blackouts?: No Have you ever Combined Alcohol with other Downers within the last 90 days?: No Have you ever Combined Alcohol with any other Substance of Abuse during the last 90 days?: Yes Positive Blood Alcohol level on Presentation? [PCS.BAL]: No Evidence of Increased Autonomic Activity (i.e. HR>120, tremor, sweating, a gitation, nausea)?: No Result: 3
--- NOTE | 2023-12-26 10:28 | CMPROGNOTE_ITS ---
Date of service: 12/26/23 Time of Service: 10:29 Care Management Progress Note Progress Note Text Progress Note Text: Bonifacio was sitting up in bed when CM met with her. CM knows Bonifacio from previous encounters. Bonifacio was very pleasant and easily engaged. She stated that her legs are very painful, but she is being well cared for. She was started on a new antibiotic, and was told that would help alleviate her pain. Discharge Potential Discharge Needs: PT Evaluation, Surgical F/U Appt and Other (Bonifacio will need an appointment at [facility] [place]. ) Anticipated Barriers to Discharge: Medical Status (Just started on new antibiotic based on wound cultures.) Patient/Family Education Needs: Review discharge instructions, discuss Ask Me Three Transportation: [facility] Plan: Anticipate Bonifacio will be discharged home with resumption of her HH services for both PT and RN when medically cleared. She will follow up with her PCP , vascular surgery and plan of care. She will transport via [facility] wheelchair van coordinated by CM. CM will follow and continue to assess for discharge needs SDOH(Care Management) Screening Will the Patient Participate in the Screening?: Yes Do you worry about having a steady place to live?: no Problems where you live: no known problems In the past 12 months, have you had to go without electric, gas, oil or water in your home?: no Have you or anyone in your house had to go without enough food to eat?: no Has lack of transportation kept you from medical appointments or from doing things needed for daily living?: yes Has anyone in your support network made you feel unsafe for any reason?: no Social Determinants of Health Comments(SDOH Details): Bonifacio is unable to drive and relies on [facility]. It is sometimes difficult to get errands done. Bonifacio stated being worried about having enough money to pay her medical bills, she still has a bill from the [facility] when she was there earlier in the year. Health Related Social Needs Health related social needs: transportation insecurity(Z59.82) Anticipated HH Services Anticipated HH Services at Discharge [facility] Needed, PT and RN.
[2023-12-26] MEDS: Normal Saline 1,000 ML 1000 ML IV (10:31)
[2023-12-26] MEDS: cefTRIAXone 1 GM/50 ML BAG IVPB (11:04)
--- NOTE | 2023-12-26 11:45 | RT.EKG_ITS ---
APPROVED REPORT Exam: Resting ECG Reason for Exam: QT prolongation Patient Location: I HR:106 bpm ECG Measurements Heart Rate 106 AXIS ND 136 P 49 QRSd 121 QRS 57 QT 379 T -9 QTc 504 Conclusion Sinus tachycardia...rate> 99 Probable left atrial enlargement...P >50mS, <-0.10mV V1 Right bundle branch block...QRSd>120, terminal axis(90,270)
--- NOTE | 2023-12-26 14:17 | NUR.NOTE ---
Nursing Note: Pt has decided that she does not want to stay any longer at [facility] for IV ABX. She [place] [facility] [place] but when it was explained to her that [facility] was not taking her case, she decided she had enough. Nursing got CM involved, she would not listen to reason. She did not even bring her personal belongings with her, she only took her cell phone. She left the building at 1415. Nursing packed up her things and sent them to Security.
--- NOTE | 2023-12-26 14:37 | PDOC.CMDIS ---
Date of service: 12/26/23 Time of Service: 14:37 Care Management Discharge Plan Discharge Plan: Patient left the hospital AMA. She was in full understanding of the risks associated with leaving prior to completion of treatment. SDOH Health Related Social Needs: Health related social needs transpo insecurity Health related social needs: transportation insecurity(Z59.82)
--- NOTE | 2023-12-26 15:16 | W.PM.DS.N ---
Date of service: 12/26/23 Time of Service: 15:16 DS: Diagnosis Discharge Diagnosis (1) Hyperkalemia: Status: Acute (2) Cellulitis: Status: Acute (3) Bilateral leg ulcer: Status: Acute (4) Atherosclerosis of abdominal aorta: Status: Acute (5) Fracture of greater trochanter of right femur: Status: Acute (6) GI bleeding: (7) Portal hypertensive gastropathy: Status: Acute (8) Duodenitis without hemorrhage: Status: Acute (9) Hepatic fibrosis: (10) COPD (chronic obstructive pulmonary disease): Status: Chronic (11) Pulmonary nodule: (12) Frequent falls: (13) Contraindication to deep vein thrombosis prophylaxis: Status: Acute (14) Discharge planning issues: Status: Acute Discharge Plan Disposition Patient Disposition: Against Medical Advice Condition: Poor Discharge Details Reason For Visit: Cellulitis Admit Date/Time: 12/23/23 16:26 Admit Provider: Juan Altman Attending Provider: Juan Altman Primary Care Provider: MARIANO KEARNEY Hospital Course Hospital Course: This 64 years old female patient with multiple chronic illnesses and frequent admissions and a past medical history including alcohol use disorder, tobacco abuse, noncompliance, GI bleed, COPD with ongoing tobacco abuse, heart failure, hypoxic respiratory failure presented to the ED at [facility] on 12/23/2023 for evaluation of bilateral leg ulcer with increased erythema and ambulatory dysfunction. The workup in the emergency department was concerning for cellulitis and she was treated with IV vancomycin. Hospitalist service was contacted and admitted the patient for evaluation and management of bilateral lower extremity cellulitis , hypomagnesemia and ambulatory dysfunction. During the stay, wound culture grew rare yeast, group B strep and gram-negative rods in the morning of 12/26/2023. Blood pressure thsi AM was 87/59 with a sodium of 127 and the patient was treated with NS one liter bolus. The patient was initiated on IV Diflucan 1 dose then oral on subsequent days and due to her history of prolonged QT, an EKG was completed showing QTc of 0.503 seconds. Patient advised the necessity for IV antibiotics while she was expressing the desire to leave. Patient informed that gram-negative rods with differentiate in different species of pathogens. The patient initially to agree to stay but later on asked the nurse to help her sit in wheelchair and attempted to access the elevator to leave. Patient also informed that leaving while needing IV antibiotic could be lethal. The patient stated to care management that she will go home and . As the patient was attempting to leave ,heavy growth of Pseudomonas was obtained from cultures. Consideration given to starting oral levofloxacin as the patient left AGAINST MEDICAL ADVICE, but due to her history of QT prolongation, alcohol use disorder with hypomagnesemia, gender, and being on multiple medicine, the levofloxacin was not ordered after consulting with pharmacist Jessie Rodriguez and discussing the case with Dr. Ck Haas. We will send a prescription for topical yeast treatment to her pharmacy. The PCP's office was contacted and updated with recommendation to reach out to patient for follow-up. Discussed with Dr. Haas Home Meds and New Rx's Prescriptions: New clotrimazole 1 % cream 1 applic topical BID Qty: 15 0RF No Action ipratropium-albuterol 0.5 mg-3 mg(2.5 mg base)/3 mL solution for nebulization 3 ml inhalation Q4H PRN (Reason: wheezing) Qty: 540 8RF albuterol sulfate 90 mcg/actuation HFA aerosol inhaler 2 puff inhalation Q6H PRN (Reason: shortness of breath or wheezing) Qty: 8.5 12RF thiamine HCl (vitamin B1) 250 mg tablet 250 mg PO DAILY gabapentin 300 mg capsule 300 mg PO TID Stiolto Respimat 2.5-2.5 mcg/actuation mist 2 puff inhalation Q24H Qty: 4 12RF loperamide [Imodium A-D] 1 mg/7.5 mL liquid 2 mg PO Q1-4H PRNQty: 120 0RF Rx Instructions: administer after each loose stool until symptoms controlled; do not exceed 16 mg per 24 hrs esomeprazole magnesium 20 mg capsule,delayed release(DR/EC) 20 mg PO DAILY Qty: 30 0RF sucralfate [Carafate] 1 gram tablet 1 g PO BID Qty: 60 0RF albuterol sulfate [Ventolin HFA] 90 mcg/actuation HFA aerosol inhaler 2 puff inhalation Q6H PRNQty: 6.7 0RF magnesium 250 mg tablet 250 mg PO DAILY Qty: 30 0RF potassium chloride 20 mEq tablet extended release 20 meq PO DAILY Qty: 14 0RF gabapentin [Neurontin] 300 mg capsule 300 mg PO TID Qty: 90 0RF ketorolac 10 mg tablet 10 mg PO Q8H PRN (Reason: severe pain (scale score 7-10)) Qty: 3 0RF multivitamin [Multiple Vitamins] Tablet 1 tab PO DAILY Qty: 30 0RF omeprazole 40 mg capsule,delayed release(DR/EC) 40 mg PO DAILY potassium chloride [Klor-Con M20] 20 mEq Tablet,Er Particles/Crystals 40 meq PO DAILY Qty: 90 0RF magnesium oxide 400 mg (241.3 mg magnesium) Tablet 400 mg PO DAILY Qty: 90 0RF nicotine (polacrilex) 2 mg Lozenge 2 mg SUC Q2H PRN PRNQty: 120 3RF hydrocortisone 2.5 % cream 1 applic TOPICAL DAILY Patient Comments: APPLY TAKE OAA TWO TIMES A DAY NEEDED FOR 14 DAYS prednisone 20 mg tablet 20 mg PO DAILY Qty: 4 0RF Discharge Instructions Referrals: MARIANO KEARNEY, [employer] [Primary Care Provider] - (F/u with PCP : Office called and aware that patient needs f/u as she is growing a MDRO ) Discharge Data Discharge Date/Time-TO BE ENTERED AT DEPARTURE: 12/26/23 14:15 DS: Summary Time Spent with Patient providing and/or coordinating discharge services: Greater than 30 minutes Status at Discharge Functional status at discharge: wheelchair bound Overall status at discharge: patient is back to baseline Mental Status: other (agitated) Speech and Movement: agitated and restless Mood: labile mood, angry, irritable mood and other (agitated) Affect: irritable affect Quality:SDOH Health Related Social Needs: Health related social needs transpo insecurity Exam Psych Mental Status: other (agitated) Speech and Movement: agitated and restless Mood: labile mood, angry, irritable mood and other (agitated) Affect: irritable affect DS: Data Vitals/I&O Vitals and I&O: Vital Signs Temperature 35.9 C L 12/26/23 08:01 Temperature Source Temporal Artery Scan 12/26/23 08:01 Pulse 100 H 12/26/23 08:01 Pulse Rhythm Regular 12/26/23 12:39 Respiratory Rate 17 12/26/23 08:01 Respiratory Effort Normal 12/26/23 12:39 Respiratory Depth Normal 12/26/23 12:39 Respiratory Pattern Normal 12/26/23 12:39 Blood Pressure 87/59 L 08/26/24 08:01 Pulse Oximetry 93 12/26/23 08:01 Oxygen Delivery Method Room Air 12/26/23 08:01 Oxygen Flow Rate 0 12/26/23 08:01 Pain Level 10 12/26/23 13:06 Comment will inform RN 12/25/23 16:27 Intake & Output 12/25/23 12/26/23 12/26/23 23:59 11:59 23:59 Intake Total 200 / 1200 700 / 700 Output Total 775 / 975 700 / 700 Balance -575 / 225 0 / 0 Intake: IV 200 / 1200 Oral 700 / 700 Output: Urine 775 / 975 700 / 700 Other: Urine Color Yellow Pale Yellow Urine Appearance Clear Clear Urine Odor Normal Comment foul smelling urine via bed jesus Voiding Methods Bedpan Bedpan Data Completed and Pending Labs on day of discharge: Labs from last 24 hours 12/26/23 06:28 Sodium 127 L Potassium 4.6 D Chloride 101 Carbon Dioxide 19.6 L Anion Gap 6.4 BUN 4 L Creatinine 0.8 Est GFR (CKD-EPI 2020) 83.26 Glucose 85 Calcium 7.8 L Preliminary micro results at discharge 12/23/23 16:35 Anaerobic Culture - Preliminary Leg - Left Lower 12/23/23 20:00 Skin Culture - Preliminary Leg - Right Lower Group B Streptococcus Pseudomonas aeruginosa Gram Negative Ronni#2 Normal Ginny 12/23/23 15:40 Blood Culture - Preliminary Blood NO GROWTH 48 HOURS 12/23/23 15:17 Blood Culture - Preliminary Blood NO GROWTH 48 HOURS PFSH All Active Problems (Updated 12/26/23 @ 08:09 by Bridgett Hearn MD, DC) Advanced care planning/counseling discussion (Acute) Fracture of greater trochanter of right femur (Acute) Hyperkalemia (Acute) Hypotension (Acute) Cellulitis (Acute) Discharge planning issues (Acute) Leg pain (Acute) COPD (chronic obstructive pulmonary disease) (Chronic) Hypomagnesemia (Acute) Weakness of neck (Acute) Elevated ferritin (Acute) Compression fracture of L1 lumbar vertebra (Acute) Steatosis (Acute) Mild Duodenitis without hemorrhage (Acute) Portal hypertensive gastropathy (Acute) Wound of right lower extremity (Acute) into the fat layer Superior mesenteric artery stenosis (Acute) Renal artery stenosis (Acute) Contraindication to deep vein thrombosis prophylaxis (Acute) Diverticulosis (Acute) Celiac artery stenosis (Acute) Atherosclerosis of abdominal aorta (Acute) Severe Coronary artery calcification seen on CAT scan (Acute) Gastritis (Acute) Lacerations of multiple sites of leg (Acute) Weakness (Acute) COPD with acute exacerbation (Acute) COPD (chronic obstructive pulmonary disease) (Chronic) Shortness of breath (Acute) Tobacco dependence syndrome (Chronic) Edema, peripheral (Acute) Cellulitis of left leg (Acute) Ambulatory dysfunction (Acute) Edema of both lower legs (Acute) Congestive heart failure (Chronic) COPD exacerbation (Acute) Cellulitis (Acute) Severe sepsis (Acute) Prolonged QT interval (Acute) Respiratory failure (Acute) Sepsis (Acute) Shock (Acute) Hypomagnesemia (Acute) Difficulty walking (Acute) PVD (peripheral vascular disease) (Chronic) Acute hypokalemia (Acute) Hypoglycemia (Acute) Alcoholic ketoacidosis (Acute) Laceration of scalp (Acute) Fall (Acute) Chronic left hip pain (Acute) Contusion of hip (Acute) Closed intertrochanteric fracture of left hip (Acute) s/p IMN fixation (05/18/23) Smoker (Acute) Closed fracture of left hip (Acute) Anxiety (Chronic) Cavitary lesion of lung (Acute) Tobacco use disorder (Acute 01/28/14) Pleural effusion (Acute) Hypomagnesemia (Acute) Fluid overload (Acute) Chest wall muscle strain (Acute) Hypokalemia (Acute) Emphysema lung (Acute) Nicotine dependence, cigarettes, uncomplicated (Acute) Atherosclerosis (Acute) Gastric wall thickening (Acute) Stenosis of right internal carotid artery (Acute) Mass of upper lobe of right lung (Acute) Alcohol abuse (Chronic) Dehydration (Acute) Diarrhea (Acute) Hypomagnesemia (Chronic) B12 deficiency (Acute) Hypocalcemia (Chronic) Ascites (Acute) Chronic liver disease (Chronic) Weight loss, non-intentional (Acute) Early satiety (Acute) Folate deficiency (Acute) Hypomagnesemia (Acute) Hypokalemia (Acute) Leg pain (Acute) Bilateral leg ulcer (Acute) Medical History GI bleeding Right upper quadrant abdominal pain Leg pain Hypokalemia Chest pain due to GERD Gastroenteritis Hypotension Macrocytic anemia Advanced care planning/counseling discussion Palliative care patient Pneumonia Pulmonary nodule COPD (chronic obstructive pulmonary disease) Hypomagnesemia Cachexia Hepatic fibrosis Ulcer of lower extremity Hair loss Vitamin D deficiency Chest pain Gastroesophageal reflux disease Hx pulmonary embolism COPD (chronic obstructive pulmonary disease) Chronic vomiting Malnutrition Frequent falls Bilateral leg pain Pancreatitis Diastolic dysfunction Folate deficiency anemia Ascites Bilateral lower extremity edema Unintentional weight loss Alcohol abuse Tobacco abuse Surgical History History of esophagogastroduodenoscopy (~12/2023) punch biopsy, skin of ankle, right lateral (11/24/16) negative for malignancy, sparse inflammation and reactive blood vessels foot surgery (~2000) Ligation of fallopian tube (~1999) ENT/Nasal surgery (~2007) Family History Father Lung disease Cancer Lung Social History Smoking/Tobacco Use Status: Current every day Tobacco Type: cigarettes Tobacco: How many years used: 45 Quit status: considering quitting Second Hand Exposure: Yes Smoking risk assessment performed?: Yes Alcohol Intake: current Alcohol Intake frequency: 3 or more drinks per day Alcohol type: wine and hard liquor Counseling given: Yes Counseling provided: provider counseling Drug use: Never Substance use type: marijuana Housing: apartment Current gender identity: female Do you feel safe at home: Yes Do you feel safe in your relationship?: Yes Additional Social history: Lives alone in studio in [facility], 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 Grew up in [place] [facility] [place] [facility], sisters in area. History History Para 0 Hx # Term Pregnancies Multiple births Hx # Pregnancies Ectopic pregnancies AB induced Hx Number of Living Children AB spontaneous Time Spent with Patient Time Spent with Patient: >85 minutes Time was spent: preparing to see the patient(eg.review tests), obtaining and/or reviewing separately otained hiistory, ordering medications,tests, procedures, referring, communicating with other health technical healthcare consultant, indepentently interpreting results, counseling the patient and care coordination
== END 2023-12-26 14:15 | disposition left against medical advice (07) | DRG 602 ==
LOC: ER 16:47 → MS 17:37
PROVIDERS: Nurse Practitioner Acute Care; Admitting Provider Internal Medicine; Emergency Provider Emergency Medicine; PCP Nurse Practitioner Family; Visit Provider Internal Medicine
DX: L03.115 Cellulitis of right lower limb (principal); S72.114A Nondisplaced fracture of greater trochanter of right femur, initial encounter for closed fracture; K76.6 Portal hypertension; K55.1 Chronic vascular disorders of intestine; E46 Unspecified protein-calorie malnutrition; Z68.1 Body mass index [BMI] 19.9 or less, adult; L97.228 Non-pressure chronic ulcer of left calf with other specified severity; L97.218 Non-pressure chronic ulcer of right calf with other specified severity; L03.116 Cellulitis of left lower limb; K74.00 Hepatic fibrosis, unspecified; J41.8 Mixed simple and mucopurulent chronic bronchitis; R91.1 Solitary pulmonary nodule; R29.6 Repeated falls; F17.210 Nicotine dependence, cigarettes, uncomplicated; E78.5 Hyperlipidemia, unspecified; I70.0 Atherosclerosis of aorta; F10.10 Alcohol abuse, uncomplicated; L89.626 Pressure-induced deep tissue damage of left heel; L89.612 Pressure ulcer of right heel, stage 2; K31.89 Other diseases of stomach and duodenum; I70.1 Atherosclerosis of renal artery; I25.10 Atherosclerotic heart disease of native coronary artery without angina pectoris; I65.21 Occlusion and stenosis of right carotid artery; D53.9 Nutritional anemia, unspecified; E55.9 Vitamin D deficiency, unspecified; S72.142D Displaced intertrochanteric fracture of left femur, subsequent encounter for closed fracture with routine healing; Z79.899 Other long term (current) drug therapy; B96.5 Pseudomonas (aeruginosa) (mallei) (pseudomallei) as the cause of diseases classified elsewhere; W19.XXXA Unspecified fall, initial encounter; K29.80 Duodenitis without bleeding
CPT/HCPCS: 00123; 36415; 73521; 75635; 80048; 80053; 84145; 85652; 86850; 86900; 86901; 87040; 87077; 94640; 96365; 96366; 99285; J1650; 80202; 83605; 85014; 85018; 85025; 86140; 87070; 87075; 87186; 93005; 93010; 94664; 99222; 99232; 99239; J0131; J0696; J1170; J1885; J3372; J3490; Q9967

== ENCOUNTER 2023-12-29 21:03 | Inpatient (IN) | payer BC, SELFPAY ==
[2023-12-29] VITALS (9 sets, daily range): BP systolic 99–114; BP diastolic 71–84; PULSE 91–111; RESP 14–20; TEMP 36; O2SAT 100
--- NOTE | 2023-12-29 21:31 | ED.GENADUL_ITS ---
Discharge Plan Disposition Patient Disposition: Home Discharge Details Clinical Impression: Bilateral leg ulcer, Hypoglycemia, Chronic hyponatremia Primary Care Provider: MARIANO KEARNEY ED Provider: Bette Mistry Home Meds and New Rx's Prescriptions: Continued ipratropium-albuterol 0.5 mg-3 mg(2.5 mg base)/3 mL solution for nebulization 3 ml inhalation Q4H PRN (Reason: wheezing) Qty: 540 8RF albuterol sulfate 90 mcg/actuation HFA aerosol inhaler 2 puff inhalation Q6H PRN (Reason: shortness of breath or wheezing) Qty: 8.5 12RF thiamine HCl (vitamin B1) 250 mg tablet 250 mg PO DAILY gabapentin 300 mg capsule 300 mg PO TID Stiolto Respimat 2.5-2.5 mcg/actuation mist 2 puff inhalation Q24H Qty: 4 12RF loperamide [Imodium A-D] 1 mg/7.5 mL liquid 2 mg PO Q1-4H PRNQty: 120 0RF Rx Instructions: administer after each loose stool until symptoms controlled; do not exceed 16 mg per 24 hrs esomeprazole magnesium 20 mg capsule,delayed release(DR/EC) 20 mg PO DAILY Qty: 30 0RF sucralfate [Carafate] 1 gram tablet 1 g PO BID Qty: 60 0RF albuterol sulfate [Ventolin HFA] 90 mcg/actuation HFA aerosol inhaler 2 puff inhalation Q6H PRNQty: 6.7 0RF magnesium 250 mg tablet 250 mg PO DAILY Qty: 30 0RF potassium chloride 20 mEq tablet extended release 20 meq PO DAILY Qty: 14 0RF gabapentin [Neurontin] 300 mg capsule 300 mg PO TID Qty: 90 0RF ketorolac 10 mg tablet 10 mg PO Q8H PRN (Reason: severe pain (scale score 7-10)) Qty: 3 0RF multivitamin [Multiple Vitamins] Tablet 1 tab PO DAILY Qty: 30 0RF omeprazole 40 mg capsule,delayed release(DR/EC) 40 mg PO DAILY potassium chloride [Klor-Con M20] 20 mEq Tablet,Er Particles/Crystals 40 meq PO DAILY Qty: 90 0RF magnesium oxide 400 mg (241.3 mg magnesium) Tablet 400 mg PO DAILY Qty: 90 0RF nicotine (polacrilex) 2 mg Lozenge 2 mg SUC Q2H PRN PRNQty: 120 3RF hydrocortisone 2.5 % cream 1 applic TOPICAL DAILY Patient Comments: APPLY TAKE OAA TWO TIMES A DAY NEEDED FOR 14 DAYS prednisone 20 mg tablet 20 mg PO DAILY Qty: 4 0RF clotrimazole 1 % cream 1 applic topical BID Qty: 15 0RF Discharge Instructions Instructions: Hyponatremia Additional Instructions: Please call your primary care provider first thing in the morning to set up a follow-up appointment. I recommend he discuss having home health regularly in your home aside from just wound care to help you with activities of daily living as needed. [facility] to [facility] been [facility]. I recommend they discuss ways to improve your diet and for help regarding your upcoming eviction. Continue with home health visits for wound care. Elevate your legs above heart level to help with drainage back to your heart and decrease swelling. Please eat regular meals including protein throughout the day, as your blood sugar has been consistently low. Avoid drinking alcohol. Drink plenty of electrolyte rich fluids throughout the day, as well as water. Return to emergency care if you develop new fevers, chest pain, difficulty breathing, worsening redness to your legs, or if you are very worried and need to be rechecked again immediately Referrals: MARIANO KEARNEY, [employer] [Primary Care Provider] - [facility] General Date/Time Provider Initiated Documentation: 12/29/23 21:25 . HPI Narrative: Fannie is a 63-year-old female with frequent admissions for multiple chronic illnesses with history of EtOH use disorder, GI bleed, COPD with ongoing tobacco use, heart failure, and chronic bilateral lower extremity cellulitis who presents to the emergency department today for evaluation of bilateral lower extremity pain attributed to the wounds. She admits that she has not eaten anything today, as had 2 alcoholic drinks this evening. She called the ambulance because her leg pain is unbearable and she cannot stand it anymore. She vomited x 1 this evening, which she attributes to the pain. Denies fever/chills, recent illness such as congestion, sore throat, cough, change in bowel or bladder function. No known recent injuries. She was recently hospitalized from 12/22- for IV antibiotics for treatment of cellulitis, she left A. Wound cultures grew rare yeast, group B strep, gram-negative rods, and Pseudomonas. Consideration was made whether or not to start metformin at home, however this was not ordered after extensive consultation due to risks associated with patient history of QT prolongation with alcohol abuse, and hypomagnesemia. Fannie reports that a home health nurse has been coming for wound care. Physical exam remarkable for large bilateral wounds with moderate amount of whitish-yellow exudate. Surrounding skin is slightly erythematous with pitting edema. Significant tenderness to palpation all over lower legs from the knee down. Brisk cap refill to toes. Sensation is intact to feet and legs. Easy work of breathing, lung sounds clear bilaterally. Normal heart sounds. Moist mucous membranes. History and presentation consistent with cellulitis. Patient does have significant history of electrolyte imbalances, labs drawn. Consideration was made re: sepsis; VS reassuring, no tachycardia compared to previous. Blood pressure 99/84, which is slightly low but in line with patient's baseline. As she does have a history of heart failure and IV access was unable to be obtained, gentle PO hydration provided. I independently interpreted the following tests: Lactate elevated at 2.4, patient does have a history of elevated lactate most likely due to hyperglycemia. EtOH elevated at 86.8. CMP notable for hyponatremia unchanged from previous; hypoglycemia noted (59). CBC, sed rate, procalcitonin reassuring. CRP elevated at 6.35. Overall labs reassuring. Leg wounds and cellulitis greatly improved from previous. No indication at this time for admission. IM toradol given for discomfort. Reviewed discharge instructions with patient, including importance of follow-up with PCP for home health referral for help with activities of daily living. Referral made to PCP and [facility] for help with food insecurity and housing issues. As patient was discharged but not able to get a ride home, she is resting in the emergency department until a ride is available. Related Data Home Medications ?Medication ?Instructions ?Recorded ?Confirmed multivitamin (Multiple Vitamins 1 tab PO DAILY #30 tabs 08/13/20 12/29/23 tablet) albuterol sulfate 90 mcg/actuation 2 puff inhalation Q6H PRN 01/18/22 12/29/23 aerosol inhaler shortness of breath or wheezing #8.5 grams thiamine HCl (vitamin B1) 250 mg 250 mg PO DAILY 04/19/23 12/29/23 tablet tiotropium 2.5 mcg-olodaterol 2.5 2 puff inhalation Q24H #4 grams 05/04/23 12/29/23 mcg/actuation mist for inhalation (Stiolto Respimat) ipratropium 0.5 mg-albuterol 3 mg 3 ml inhalation Q4H PRN wheezing 05/10/23 12/29/23 (2.5 mg base)/3 mL nebulization #540 mL soln gabapentin 300 mg capsule 300 mg PO TID 06/06/23 12/29/23 omeprazole 40 mg capsule,delayed 40 mg PO DAILY 06/12/23 12/29/23 release loperamide 1 mg/7.5 mL oral liquid 2 mg (15 mL) PO Q1-4H PRN #120 mL 08/02/23 12/29/23 (Imodium A-D) magnesium oxide 400 mg (241.3 mg 400 mg PO DAILY #90 tabs 10/06/23 12/29/23 magnesium) tablet potassium chloride 20 mEq 40 meq (2 x 20 mEq) PO DAILY #90 10/06/23 12/29/23 tablet,extended tabs release(part/cryst) (Klor-Con M) nicotine (polacrilex) 2 mg buccal 2 mg SUC Q2H PRN PRN #120 ea 10/11/23 12/29/23 lozenge hydrocortisone 2.5 % topical cream 1 applic topical DAILY 11/25/23 12/29/23 prednisone 20 mg tablet 20 mg PO DAILY #4 tabs 11/25/23 12/29/23 albuterol sulfate 90 mcg/actuation 2 puff inhalation Q6H PRN #6.7 12/17/23 12/29/23 aerosol inhaler (Ventolin HFA) grams esomeprazole magnesium 20 mg 20 mg PO DAILY #30 caps 12/17/23 12/29/23 capsule,delayed release gabapentin 300 mg capsule 300 mg PO TID #90 caps 12/17/23 12/29/23 (Neurontin) magnesium 250 mg tablet 250 mg PO DAILY #30 tabs 12/17/23 12/29/23 potassium chloride 20 mEq 20 meq PO DAILY #14 tabs 12/17/23 12/29/23 tablet,extended release sucralfate 1 gram tablet (Carafate) 1 g PO BID #60 tabs 12/17/23 12/29/23 ketorolac 10 mg tablet 10 mg PO Q8H PRN severe pain 12/20/23 12/29/23 (scale score 7-10) #3 tabs clotrimazole 1 % topical cream 1 applic topical BID #15 grams 12/26/23 12/29/23 Previous Rx's ?Medication ?Instructions ?Recorded multivitamin (Multiple Vitamins 1 tab PO DAILY #30 tabs 08/13/20 tablet) albuterol sulfate 90 mcg/actuation 2 puff inhalation Q6H PRN 01/18/22 aerosol inhaler shortness of breath or wheezing #8.5 grams tiotropium 2.5 mcg-olodaterol 2.5 2 puff inhalation Q24H #4 grams 05/04/23 mcg/actuation mist for inhalation (Stiolto Respimat) ipratropium 0.5 mg-albuterol 3 mg 3 ml inhalation Q4H PRN wheezing 05/10/23 (2.5 mg base)/3 mL nebulization #540 mL soln loperamide 1 mg/7.5 mL oral liquid 2 mg (15 mL) PO Q1-4H PRN #120 mL 08/02/23 (Imodium A-D) magnesium oxide 400 mg (241.3 mg 400 mg PO DAILY #90 tabs 10/06/23 magnesium) tablet potassium chloride 20 mEq 40 meq (2 x 20 mEq) PO DAILY #90 10/06/23 tablet,extended tabs release(part/cryst) (Klor-Con M) nicotine (polacrilex) 2 mg buccal 2 mg SUC Q2H PRN PRN #120 ea 10/11/23 lozenge prednisone 20 mg tablet 20 mg PO DAILY #4 tabs 11/25/23 albuterol sulfate 90 mcg/actuation 2 puff inhalation Q6H PRN #6.7 12/17/23 aerosol inhaler (Ventolin HFA) grams esomeprazole magnesium 20 mg 20 mg PO DAILY #30 caps 12/17/23 capsule,delayed release gabapentin 300 mg capsule 300 mg PO TID #90 caps 12/17/23 (Neurontin) magnesium 250 mg tablet 250 mg PO DAILY #30 tabs 12/17/23 potassium chloride 20 mEq 20 meq PO DAILY #14 tabs 12/17/23 tablet,extended release sucralfate 1 gram tablet (Carafate) 1 g PO BID #60 tabs 12/17/23 ketorolac 10 mg tablet 10 mg PO Q8H PRN severe pain 12/20/23 (scale score 7-10) #3 tabs clotrimazole 1 % topical cream 1 applic topical BID #15 grams 12/26/23 Allergies Allergy/AdvReac Type Severity Reaction Status Date / Time bacitracin (From Neosporin Allergy Mild localized Verified 12/29/23 21:14 ([id number])) redness neomycin (From Neosporin Allergy Mild localized Verified 12/29/23 21:14 ([id number])) redness polymyxin B (From Neosporin Allergy Mild localized Verified 12/29/23 21:14 ([id number])) redness General Stated Complaint: [facility] RAHEEM: 3 Review of Systems Narrative: see HPI Exam Const General: cooperative, disheveled and intoxicated appearing Nutritional Appearance: cachectic HENMT Head: normal to inspection Ears: hearing grossly normal bilaterally General nose exam: external nose normal Mouth: oral mucosae normal and moist mucous membranes Resp Effort & Inspection: normal respiratory effort and able to speak in complete sentences Auscultation: clear to auscultation bilaterally Cardio Rate: regular rate Rhythm: regular rhythm Pulses: dorsalis pedis present GI Inspection: normal to inspection and non-distended Palpation: soft, not firm and nontender Auscultation: normal bowel sounds Skin Wounds: wounds noted (bilateral lower legs, mild surrounding erythema) Other: Course Vital Signs Vital signs: Vital Signs Temperature 36.0 C L 12/29/23 21:09 Pulse 91 H 12/29/23 21:09 Respiratory Rate 18 12/29/23 21:09 Blood Pressure 99/84 L 12/29/23 21:09 Pulse Oximetry 100 12/29/23 21:09 Temperature 36.0 C L 12/29/23 21:09 Temperature Source Temporal Artery Scan 12/29/23 21:09 Pulse 91 H 12/29/23 21:09 Respiratory Rate 18 12/29/23 21:09 Blood Pressure 99/84 L 12/29/23 21:09 Blood Pressure Position Supine 12/29/23 21:09 Pulse Oximetry 100 12/29/23 21:09 Oxygen Delivery Method Room Air 12/29/23 21:09 Oxygen Flow Rate 0 12/29/23 21:09 Pain Level 10 12/29/23 21:09 Medical Decision Making Quality:SDOH Health Related Social Needs: 2 Health related social needs transpo insecurity PFSH All Active Problems (Updated 12/29/23 @ 23:38 by Bette Springer) Chronic hyponatremia (Acute) Fracture of greater trochanter of right femur (Acute) Hypotension (Acute) Cellulitis (Acute) Leg pain (Acute) COPD (chronic obstructive pulmonary disease) (Chronic) Hypomagnesemia (Acute) Weakness of neck (Acute) Elevated ferritin (Acute) Compression fracture of L1 lumbar vertebra (Acute) Steatosis (Acute) Mild Portal hypertensive gastropathy (Acute) Wound of right lower extremity (Acute) into the fat layer Superior mesenteric artery stenosis (Acute) Renal artery stenosis (Acute) Diverticulosis (Acute) Celiac artery stenosis (Acute) Atherosclerosis of abdominal aorta (Acute) Severe Coronary artery calcification seen on CAT scan (Acute) Gastritis (Acute) Lacerations of multiple sites of leg (Acute) Weakness (Acute) COPD with acute exacerbation (Acute) COPD (chronic obstructive pulmonary disease) (Chronic) Shortness of breath (Acute) Tobacco dependence syndrome (Chronic) Edema, peripheral (Acute) Cellulitis of left leg (Acute) Ambulatory dysfunction (Acute) Edema of both lower legs (Acute) Congestive heart failure (Chronic) COPD exacerbation (Acute) Severe sepsis (Acute) Prolonged QT interval (Acute) Respiratory failure (Acute) Sepsis (Acute) Shock (Acute) Hypomagnesemia (Acute) Difficulty walking (Acute) PVD (peripheral vascular disease) (Chronic) Acute hypokalemia (Acute) Hypoglycemia (Acute) Alcoholic ketoacidosis (Acute) Laceration of scalp (Acute) Fall (Acute) Chronic left hip pain (Acute) Contusion of hip (Acute) Smoker (Acute) Closed fracture of left hip (Acute) Anxiety (Chronic) Cavitary lesion of lung (Acute) Tobacco use disorder (Acute 01/28/14) Pleural effusion (Acute) Hypomagnesemia (Acute) Fluid overload (Acute) Chest wall muscle strain (Acute) Hypokalemia (Acute) Emphysema lung (Acute) Nicotine dependence, cigarettes, uncomplicated (Acute) Atherosclerosis (Acute) Gastric wall thickening (Acute) Stenosis of right internal carotid artery (Acute) Mass of upper lobe of right lung (Acute) Alcohol abuse (Chronic) Dehydration (Acute) Diarrhea (Acute) Hypomagnesemia (Chronic) B12 deficiency (Acute) Hypocalcemia (Chronic) Ascites (Acute) Chronic liver disease (Chronic) Weight loss, non-intentional (Acute) Early satiety (Acute) Folate deficiency (Acute) Hypomagnesemia (Acute) Hypokalemia (Acute) Leg pain (Acute) Bilateral leg ulcer (Acute) Medical History GI bleeding Right upper quadrant abdominal pain Leg pain Hypokalemia Chest pain due to GERD Gastroenteritis Hypotension Macrocytic anemia Advanced care planning/counseling discussion Palliative care patient Pneumonia Pulmonary nodule COPD (chronic obstructive pulmonary disease) Hypomagnesemia Cachexia Hepatic fibrosis Ulcer of lower extremity Hair loss Vitamin D deficiency Chest pain Gastroesophageal reflux disease Hx pulmonary embolism COPD (chronic obstructive pulmonary disease) Chronic vomiting Malnutrition Frequent falls Bilateral leg pain Pancreatitis Diastolic dysfunction Folate deficiency anemia Ascites Bilateral lower extremity edema Unintentional weight loss Alcohol abuse Tobacco abuse Surgical History History of esophagogastroduodenoscopy (~12/2023) punch biopsy, skin of ankle, right lateral (11/24/16) negative for malignancy, sparse inflammation and reactive blood vessels foot surgery (~2000) Ligation of fallopian tube (~1999) ENT/Nasal surgery (~2007) Family History Father Lung disease Cancer Lung Social History Smoking/Tobacco Use Status: Current every day Tobacco Type: cigarettes Tobacco: How many years used: 45 Quit status: considering quitting Second Hand Exposure: Yes Smoking risk assessment performed?: Yes Alcohol Intake: current Alcohol Intake frequency: 3 or more drinks per day Alcohol type: wine and hard liquor Counseling given: Yes Counseling provided: provider counseling Drug use: Never Substance use type: marijuana Housing: apartment Current gender identity: female Do you feel safe at home: Yes Do you feel safe in your relationship?: Yes Additional Social history: Lives alone in studio in [facility], 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 Grew up in [place], sisters in area. History History 2 Para 0 Hx # Term Pregnancies Multiple births Hx # Pregnancies Ectopic pregnancies AB induced Hx Number of Living Children AB spontaneous
[2023-12-29 22:22] LABS: Abs Immature Grans 0.04 10^3/uL (0.0-0.06); Absolute Basophil Count 0.06 10^3/uL (0.0-0.2); Absolute Eosinophil Count 0.32 10^3/uL (0.0-0.7); Absolute Lymphocyte Count 0.91 10^3/uL (1.2-3.4); Absolute Monocyte Count 0.41 10^3/uL (0.1-0.8); Absolute Neutrophil Count 3.26 10^3/uL (1.2-6.7); Basophils % 1.2 %; Eosinophils % 6.4 %; HCT 29.6 % (36.0-46.0); HGB 9.9 g/dL (11.2-15.7); Immature Grans % 0.8 %; Lymphocytes % 18.2 %; MCH 33.9 pg (27.0-33.0); MCHC 33.4 % (32.0-36.0); MPV 10.7 fL (8.0-11.0); Monocytes % 8.2 %; Neutrophils % 65.2 %; Platelet Count 206 10^3/uL (130-400); RBC 2.92 10^6/uL (3.93-5.22); RDW-SD 61.2 fL
[2023-12-29 22:23] LABS: Lactate 2.4 mmol/L (0.6-1.4)
[2023-12-29 22:25] LABS: MCV 101 fL (80-95)
[2023-12-29 22:28] LABS: ESR 18 mm/hr (0-30)
[2023-12-29 22:37] LABS: ETHANOL BLOOD 86.8 mg/dL (<10)
[2023-12-29 22:40] LABS: ALT 56 U/L (14-59); AST 53 U/L (15-37); Albumin 1.6 g/dL (3.4-5.0); Alkaline Phosphatase 197 U/L (46-116); Anion Gap 10.9 mmol/L (3-11); BUN 4 mg/dL (7-18); Bilirubin, Total 0.53 mg/dL (0.2-1.0); C-Reactive Protein 6.35 mg/dL (<or=0.5); CO2 19.1 mmol/L (21.0-32.0); CREATININE 0.6 mg/dL (0.55-1.02); Calcium 9.7 mg/dL (8.5-10.1); Chloride 98 mmol/L (98-107); Estimated GFR 101.42 (mL/min/1.73m2); Glucose 59 mg/dL (74-106); Potassium 4.1 mmol/L (3.5-5.1); Sodium 128 mmol/L (136-145); Total Protein 5.2 g/dL (6.4-8.2)
[2023-12-29 22:52] LABS: Procalcitonin 0.2 ng/mL
[2023-12-29] MEDS: Ketorolac 30 MG/ML VIAL IM (23:47)
[2023-12-30] VITALS (23 sets, daily range): BP systolic 110–143; BP diastolic 70–95; PULSE 92–109; RESP 13–22; TEMP 35.9–36.9; O2SAT 98–100
--- NOTE | 2023-12-30 00:01 | ED.PROG_ITS ---
Date of service: 12/30/23 Time of Service: 00:02 Medical Decision Making This patient was signed out to me; please see previous notes for H&P and initial eval. In brief, 63yo F with recent admission for cellulitis from which she left AMA presenting for persistent leg pain. Cellulitis improved from earlier, not septic, lab workup largely at baseline. Planned for patient take PO and discharge home once blood glucose improved, however but no ride available overnight and will likely need remain in the ED awaiting transport. Contingent discharge instructions written. On my assessment patient with continued low blood sugar (59), asymptomatic. She has been refusing PO in the ED I just don't feel like it. Also states I can't walk, I can't get to the bathroom at home (of note, patient with good hygiene on arrival, no indication of urine/feces on clothes). Does have chronic appearing wounds BLE with some surrounding (resolving) cellulitis L >R. After extensive discussion patient agreeable to trying zofran and then possibly PO juice/peanut butter. Took 8oz apple juice and 2 tablespoons peanut butter with constant encouragement from nursing; repeat blood glucose low normal at 70. Unlikely to keep up with PO at home and has not been taking any of her medications. After further extensive discussion with patient she agrees to IV placement which was done under US guidance. Discussed with hospitalist Dr. Bennett; patient accepted to medicine service, awaiting admission orders and transfer to the floor. Quality:SDOH Health Related Social Needs: Health related social needs transpo insecurity Procedures EJ/Peripheral Line Arm R: Time Out Performed: Yes Skin Cleansed in Sterile Fashion: Yes Size (gauge): 18 IV Secured and Dressing Applied: Yes Patient Tolerated Procedure: well Discharge Plan Disposition Patient Disposition: Admit to [facility] Condition: Serious Discharge Details Clinical Impression: Bilateral leg ulcer, Hypoglycemia, Chronic hyponatremia, Cellulitis Primary Care Provider: MARIANO KEARNEY ED Provider: Emmie Alanis Home Meds and New Rx's Prescriptions: Continued ipratropium-albuterol 0.5 mg-3 mg(2.5 mg base)/3 mL solution for nebulization 3 ml inhalation Q4H PRN (Reason: wheezing) Qty: 540 8RF albuterol sulfate 90 mcg/actuation HFA aerosol inhaler 2 puff inhalation Q6H PRN (Reason: shortness of breath or wheezing) Qty: 8.5 12RF thiamine HCl (vitamin B1) 250 mg tablet 250 mg PO DAILY gabapentin 300 mg capsule 300 mg PO TID Stiolto Respimat 2.5-2.5 mcg/actuation mist 2 puff inhalation Q24H Qty: 4 12RF loperamide [Imodium A-D] 1 mg/7.5 mL liquid 2 mg PO Q1-4H PRNQty: 120 0RF Rx Instructions: administer after each loose stool until symptoms controlled; do not exceed 16 mg per 24 hrs esomeprazole magnesium 20 mg capsule,delayed release(DR/EC) 20 mg PO DAILY Qty: 30 0RF sucralfate [Carafate] 1 gram tablet 1 g PO BID Qty: 60 0RF albuterol sulfate [Ventolin HFA] 90 mcg/actuation HFA aerosol inhaler 2 puff inhalation Q6H PRNQty: 6.7 0RF magnesium 250 mg tablet 250 mg PO DAILY Qty: 30 0RF potassium chloride 20 mEq tablet extended release 20 meq PO DAILY Qty: 14 0RF gabapentin [Neurontin] 300 mg capsule 300 mg PO TID Qty: 90 0RF ketorolac 10 mg tablet 10 mg PO Q8H PRN (Reason: severe pain (scale score 7-10)) Qty: 3 0RF multivitamin [Multiple Vitamins] Tablet 1 tab PO DAILY Qty: 30 0RF omeprazole 40 mg capsule,delayed release(DR/EC) 40 mg PO DAILY potassium chloride [Klor-Con M20] 20 mEq Tablet,Er Particles/Crystals 40 meq PO DAILY Qty: 90 0RF magnesium oxide 400 mg (241.3 mg magnesium) Tablet 400 mg PO DAILY Qty: 90 0RF nicotine (polacrilex) 2 mg Lozenge 2 mg SUC Q2H PRN PRNQty: 120 3RF hydrocortisone 2.5 % cream 1 applic TOPICAL DAILY Patient Comments: APPLY TAKE OAA TWO TIMES A DAY NEEDED FOR 14 DAYS prednisone 20 mg tablet 20 mg PO DAILY Qty: 4 0RF clotrimazole 1 % cream 1 applic topical BID Qty: 15 0RF
--- NOTE | 2023-12-30 00:09 | NUR.NOTE ---
Referral faxed to [facility] to f/u week of 01/02/24 for leg wounds, referrals to [facility] and [facility].Nursing Note:
[2023-12-30] MEDS: Ondansetron O.D.T. 4 MG TABEF PO (00:16)
--- NOTE | 2023-12-30 03:33 | HPE_ITS ---
Date of service: 12/30/23 Time of Service: 03:34 Assessment and Plan Assessment and plan (1) Cellulitis: Start date: 12/30/23 Status: Acute Assessment and plan: This is a 63-year-old chronic alcoholic lady poorly nourished living at home alone who had injuries to her legs about a month ago with a large ulceration is not healing well but dry. Recent culture did show mixed jacinto. She left AMA with last hospitalization attempting treatment of these wounds with secondary infection. She represented to the ED because of pain and not being able to ambulate. This has been a similar presentation in fact the patient not being able to eat well and feeling weak not ambulating in her apartment where she lives alone. She does have wound care take care of these wounds and they did see her recently. She did not have a white count or fever and no blood cultures were performed and she did agree to be readmitted for IV antibiotic therapy with vancomycin initiated. She is not on any of her prescribed medications at this time. These will be reviewed with only minimal medications restarted. She does not does have alcohol withdrawal by history and CIWA protocol was not instituted but could be initiated later if patient has any signs or symptoms of alcohol withdrawal. It is uncertain as to her alcohol intake or persistence. She claims she has never had problems with withdrawal. She is a full code. Qualifiers: Laterality: unspecified laterality Site of cellulitis: extremity Site of cellulitis of extremity: lower extremity Qualified Code(s): L03.119 - Cellulitis of unspecified part of limb (2) Alcohol abuse: Status: Chronic Assessment and plan: Exposing probable withdrawal and trend labs with better diet. (3) Chronic hyponatremia: Status: Chronic Assessment and plan: Patient chronically has hyponatremia but it is below 130 at this time but above 125. No specific treatment at this time other than no alcohol intake. Trend labs. (4) Hypoglycemia: Status: Chronic Assessment and plan: Patient most likely has poor stores with chronic liver disease and alcohol intake. Watch for symptomatic hypoglycemia but no trending of glucometers at this time. Encouraged regular diet. (5) PVD (peripheral vascular disease): Status: Chronic Assessment and plan: Patient has history of PVD but not on aspirin which will be held for now. This may impede wound healing in her lower extremities. (6) COPD (chronic obstructive pulmonary disease): Status: Chronic Assessment and plan: Patient is a chronic smoker but does not take inhalers. She will have inhalers ordered for maintenance therapy and as needed HFA therapy. Qualifiers: COPD type: emphysema Emphysema type: other Qualified Code(s): J43.8 - Other emphysema (7) Tobacco use disorder: Status: Chronic Assessment and plan: Nicotine gum as needed. History of Present Illness History of Present Illness Chief Complaint: Leg swelling with redness and pain Narrative: This is a 63-year-old female patient with chronic alcoholism not taking any of her prescribed medications who recently left AMA while being treated for lower extremity cellulitis with ulcerations while at this institution. She was not discharged on any antibiotics. She is at home living alone and recently received a notice of eviction. She was having difficulty ambulating and had increased pain with her chronic ulcerations over both legs from previous recent trauma from fall, prompting return to the ED via EMS. Patient had first refused and IV but as allowed lab evaluation. Labs was reassuring at her baseline but she does have significant pain and redness around her open ulcerations with inability to ambulate. She did finally agree to stay for IV antibiotic therapy for her cellulitis. With continued wound care. She does have an alcohol level showing recent intake and has no history of alcohol withdrawal though she drinks alcohol chronically. The patient denies any chills or fever and states she does have a chronic smoker's cough but no change in that status. She does not use her inhalers. She has had decreased appetite recently and has lost weight. Patient had no confusion or change in mental status which is usually agitated and noncompliant though she does maintain a low-sodium level with her chronic alcohol use. She may have been slightly dehydrated with decreased intake recently though her creatinine is normal with urinalysis pending. She will be initiated on IV vancomycin and gentle IV hydration with pain management and wound care. Cultures have been obtained in the past with mixed jacinto in her wound. Blood cultures were not performed in the ED before initiation of vancomycin. He does not appear septic. She is a full code. Review of Systems Narrative: 13 point review of systems otherwise unrevealing or stable. [facility] All Active Problems (Updated 12/30/23 @ 06:57 by Juan Francisco Bennett) Cellulitis (Acute) Chronic hyponatremia (Chronic) Fracture of greater trochanter of right femur (Acute) Hypotension (Acute) Cellulitis (Acute) Leg pain (Acute) COPD (chronic obstructive pulmonary disease) (Chronic) Hypomagnesemia (Acute) Weakness of neck (Acute) Elevated ferritin (Acute) Compression fracture of L1 lumbar vertebra (Acute) Steatosis (Acute) Mild Portal hypertensive gastropathy (Acute) Wound of right lower extremity (Acute) into the fat layer Superior mesenteric artery stenosis (Acute) Renal artery stenosis (Acute) Diverticulosis (Acute) Celiac artery stenosis (Acute) Atherosclerosis of abdominal aorta (Acute) Severe Coronary artery calcification seen on CAT scan (Acute) Gastritis (Acute) Lacerations of multiple sites of leg (Acute) Weakness (Acute) COPD with acute exacerbation (Acute) COPD (chronic obstructive pulmonary disease) (Chronic) Shortness of breath (Acute) Tobacco dependence syndrome (Chronic) Edema, peripheral (Acute) Cellulitis of left leg (Acute) Ambulatory dysfunction (Acute) Edema of both lower legs (Acute) Congestive heart failure (Chronic) COPD exacerbation (Acute) Severe sepsis (Acute) Prolonged QT interval (Acute) Respiratory failure (Acute) Sepsis (Acute) Shock (Acute) Hypomagnesemia (Acute) Difficulty walking (Acute) PVD (peripheral vascular disease) (Chronic) Acute hypokalemia (Acute) Hypoglycemia (Chronic) Alcoholic ketoacidosis (Acute) Laceration of scalp (Acute) Fall (Acute) Chronic left hip pain (Acute) Contusion of hip (Acute) Smoker (Acute) Closed fracture of left hip (Acute) Anxiety (Chronic) Cavitary lesion of lung (Acute) Tobacco use disorder (Chronic 01/28/14) Pleural effusion (Acute) Hypomagnesemia (Acute) Fluid overload (Acute) Chest wall muscle strain (Acute) Hypokalemia (Acute) Emphysema lung (Acute) Nicotine dependence, cigarettes, uncomplicated (Acute) Atherosclerosis (Acute) Gastric wall thickening (Acute) Stenosis of right internal carotid artery (Acute) Mass of upper lobe of right lung (Acute) Alcohol abuse (Chronic) Dehydration (Acute) Diarrhea (Acute) Hypomagnesemia (Chronic) B12 deficiency (Acute) Hypocalcemia (Chronic) Ascites (Acute) Chronic liver disease (Chronic) Weight loss, non-intentional (Acute) Early satiety (Acute) Folate deficiency (Acute) Hypomagnesemia (Acute) Hypokalemia (Acute) Leg pain (Acute) Bilateral leg ulcer (Acute) Medical History Hyperkalemia Duodenitis without hemorrhage Cellulitis GI bleeding Right upper quadrant abdominal pain Leg pain Hypokalemia Chest pain due to GERD Gastroenteritis Hypotension Macrocytic anemia Advanced care planning/counseling discussion Palliative care patient Pneumonia Pulmonary nodule COPD (chronic obstructive pulmonary disease) Hypomagnesemia Cachexia Hepatic fibrosis Ulcer of lower extremity Hair loss Vitamin D deficiency Chest pain Gastroesophageal reflux disease Hx pulmonary embolism COPD (chronic obstructive pulmonary disease) Chronic vomiting Malnutrition Frequent falls Bilateral leg pain Pancreatitis Diastolic dysfunction Folate deficiency anemia Ascites Bilateral lower extremity edema Unintentional weight loss Alcohol abuse Tobacco abuse Surgical History Closed intertrochanteric fracture of left hip s/p IMN fixation (05/18/23) History of esophagogastroduodenoscopy (~12/2023) punch biopsy, skin of ankle, right lateral (11/24/16) negative for malignancy, sparse inflammation and reactive blood vessels foot surgery (~2000) Ligation of fallopian tube (~1999) ENT/Nasal surgery (~2007) Family History Father Lung disease Cancer Lung Social History Smoking/Tobacco Use Status: Current every day Tobacco Type: cigarettes Tobacco: How many years used: 45 Quit status: considering quitting Second Hand Exposure: Yes Smoking risk assessment performed?: Yes Alcohol Intake: current Alcohol Intake frequency: 3 or more drinks per day Alcohol type: wine and hard liquor Counseling given: Yes Counseling provided: provider counseling Drug use: Never Substance use type: marijuana Housing: apartment Current gender identity: female Do you feel safe at home: Yes Do you feel safe in your relationship?: Yes Additional Social history: Lives alone in studio in [facility], 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 Grew up in [facility], sisters in area. History History 2 Para 0 Hx # Term Pregnancies Multiple births Hx # Pregnancies Ectopic pregnancies AB induced Hx Number of Living Children AB spontaneous Meds Allergies and Home Medications Allergies Allergy/AdvReac Type Severity Reaction Status Date / Time bacitracin (From Neosporin Allergy Mild localized Verified 12/29/23 21:14 ([id number])) redness neomycin (From Neosporin Allergy Mild localized Verified 12/29/23 21:14 ([id number])) redness polymyxin B (From Neosporin Allergy Mild localized Verified 12/29/23 21:14 ([id number])) redness Home Medications ?Medication ?Instructions ?Recorded ?Confirmed ?Type multivitamin (Multiple Vitamins 1 tab PO DAILY #30 tabs 08/13/20 12/29/23 Rx tablet) albuterol sulfate 90 mcg/actuation 2 puff inhalation Q6H PRN 01/18/22 12/29/23 Rx aerosol inhaler shortness of breath or wheezing #8.5 grams thiamine HCl (vitamin B1) 250 mg 250 mg PO DAILY 04/19/23 12/29/23 History tablet tiotropium 2.5 mcg-olodaterol 2.5 2 puff inhalation Q24H #4 grams 05/04/23 12/29/23 Rx mcg/actuation mist for inhalation (Stiolto Respimat) ipratropium 0.5 mg-albuterol 3 mg 3 ml inhalation Q4H PRN wheezing 05/10/23 12/29/23 Rx (2.5 mg base)/3 mL nebulization #540 mL soln gabapentin 300 mg capsule 300 mg PO TID 06/06/23 12/29/23 History omeprazole 40 mg capsule,delayed 40 mg PO DAILY 06/12/23 12/29/23 History release loperamide 1 mg/7.5 mL oral liquid 2 mg (15 mL) PO Q1-4H PRN #120 mL 08/02/23 12/29/23 Rx (Imodium A-D) magnesium oxide 400 mg (241.3 mg 400 mg PO DAILY #90 tabs 10/06/23 12/29/23 Rx magnesium) tablet potassium chloride 20 mEq 40 meq (2 x 20 mEq) PO DAILY #90 10/06/23 12/29/23 Rx tablet,extended tabs release(part/cryst) (Klor-Con M) nicotine (polacrilex) 2 mg buccal 2 mg SUC Q2H PRN PRN #120 ea 10/11/23 12/29/23 Rx lozenge hydrocortisone 2.5 % topical cream 1 applic topical DAILY 11/25/23 12/29/23 History prednisone 20 mg tablet 20 mg PO DAILY #4 tabs 11/25/23 12/29/23 Rx albuterol sulfate 90 mcg/actuation 2 puff inhalation Q6H PRN #6.7 12/17/23 12/29/23 Rx aerosol inhaler (Ventolin HFA) grams esomeprazole magnesium 20 mg 20 mg PO DAILY #30 caps 12/17/23 12/29/23 Rx capsule,delayed release gabapentin 300 mg capsule 300 mg PO TID #90 caps 12/17/23 12/29/23 Rx (Neurontin) magnesium 250 mg tablet 250 mg PO DAILY #30 tabs 12/17/23 12/29/23 Rx potassium chloride 20 mEq 20 meq PO DAILY #14 tabs 12/17/23 12/29/23 Rx tablet,extended release sucralfate 1 gram tablet (Carafate) 1 g PO BID #60 tabs 12/17/23 12/29/23 Rx ketorolac 10 mg tablet 10 mg PO Q8H PRN severe pain 12/20/23 12/29/23 Rx (scale score 7-10) #3 tabs clotrimazole 1 % topical cream 1 applic topical BID #15 grams 12/26/23 12/29/23 Rx Exam Narrative Exam Narrative: General: Patient appears much older than stated age, overdone mascara over face and appearing chronically ill, cachectic with poor eye contact and slowed monotonous tone to speech. She wanders in conversation. She is in no acute distress but chronically complaining of variable somatic symptoms which are inconsistent with chief complaint. She is alert and oriented x 3. HEENT: Normocephalic, coarsened facial features with make-up over done as stated, eyes with pupils equal and reactive to light symmetrically, extraocular movement intact and sclera anicteric. Oropharynx with moist oral mucosa. Neck: Supple without JVD. Back: Kyphotic without CVA tenderness. Lungs: Poor inspiratory effort with poor aeration but no focalizing rales or rhonchi. No expiratory wheeze. Bronchovesicular breath sounds diffusely with no increased expiratory phase. Breast: Exam deferred. Heart: Regular rate and rhythm with no appreciable murmur or gallop. Abdomen: Normal contour, soft and nontender with no focal guarding or rebound. No palpable hepatosplenomegaly. Bowel sounds positive all quadrants. Genitalia/rectal: Exam deferred. Extremities: Without clubbing, cyanosis or grossly pitting edema. Nonpitting edema lower lower extremities surrounding chronic ulcerations over anterior leg below knees which appear clean and dry but atrophic. Fair capillary refill. Skin: Pale, warm and dry with rough texture over sun exposed areas with actinic changes. Normal turgor. No bruising noted. Deep, old lacerations over anterior tibialis areas bilaterally which are dry with granulation tissue, tender to palpation when attempting examination. (These occurred by trauma about a month ago prior to this hospitalization when patient had flatscreen fall onto the legs). Neuro: Cranial nerves II to XII grossly intact, no focalizing motor deficits and no tremor. Psych: Anxious affect with lability, depressed mood with increased somatization and at times animated. No abnormal thought processes. Patient avoids answering questions directly. Remote and recent memory appear to be grossly intact. Results Labs 12/29/23 22:15 12/29/23 22:15 Labs: Laboratory Results - last 24 hr 12/29/23 22:15 WBC 5.00 RBC 2.92 L Hgb 9.9 L Hct 29.6 L MCV 101 H D MCH 33.9 H MCHC 33.4 RDW 17.0 H Plt Count 206 MPV 10.7 Immature Gran % 0.8 Neutrophils % 65.2 Lymphocytes % 18.2 Monocytes % 8.2 Eosinophils % 6.4 Basophils % 1.2 Nucleated RBC % 0.0 Absolute Neutrophils 3.26 Absolute Lymphocytes 0.91 L Absolute Monocytes 0.41 Absolute Eosinophils 0.32 Absolute Basophils 0.06 ESR 18 VBG Lactate 2.4 H* Sodium 128 L Potassium 4.1 Chloride 98 Carbon Dioxide 19.1 L Anion Gap 10.9 BUN 4 L Creatinine 0.6 Est GFR (CKD-EPI 2020) 101.42 Glucose 59 L Calcium 9.7 Total Bilirubin 0.53 AST 53 H ALT 56 Alkaline Phosphatase 197 H C-Reactive Protein 6.35 H Total Protein 5.2 L Albumin 1.6 L Procalcitonin 0.2 Ethyl Alcohol 86.8 H Last Vital Signs Temp 36.5 C 12/30/23 03:12 Pulse 108 H 12/30/23 03:12 Resp 16 12/30/23 03:12 BP 136/70 12/30/23 03:12 Pulse Ox 100 12/30/23 03:12 Time Spent Time spent with Patient: >75 minutes Time was spent: preparing to see the patient(eg.review tests), obtaining and/or reviewing separately otained hiistory, ordering medications,tests, procedures, indepentently interpreting results and care coordination
[2023-12-30] MEDS: Ketorolac 30 MG/ML VIAL IVP (06:06)
[2023-12-30] MEDS: Normal Saline Flush 10 ML SYR IVP ×2 (06:07→08:30)
[2023-12-30] MEDS: Normal Saline 1,000 ML 125 ML IV ×2 (06:28→22:03)
[2023-12-30 06:41] LABS: Lactate 1.3 mmol/L (0.6-1.4)
[2023-12-30 06:55] LABS: INR 1.1 (0.9-1.1); Prothrombin Time 10.8 sec (9.1-11.1)
--- NOTE | 2023-12-30 06:57 | W.PC.ACHO ---
Registration Status: Primary Language: Preferred Language: ED Information & Data Chief Complaint GenMedical 12/29/23 21:42 Triage Note pt arrives via EMS c/o 02/0812/29/23 21:09 bilateral leg pain from knees down. has been present for 2 months. i can't take this anymore! both feel are weeping. pt states shes getting evicted and doesn't know what to do. N/V that started today, has not eaten since yesterday. +ETOH on arrival, last drink this evening. Medical / Surgical History (Last Reviewed 12/30/23 @ 03:36 by Juan Francisco Bennett) Hyperkalemia Duodenitis without hemorrhage Cellulitis GI bleeding Right upper quadrant abdominal pain Leg pain Hypokalemia Chest pain due to GERD Gastroenteritis Hypotension Macrocytic anemia Advanced care planning/counseling discussion Palliative care patient Pneumonia Pulmonary nodule COPD (chronic obstructive pulmonary disease) Hypomagnesemia Cachexia Hepatic fibrosis Ulcer of lower extremity Hair loss Vitamin D deficiency Chest pain Gastroesophageal reflux disease Hx pulmonary embolism COPD (chronic obstructive pulmonary disease) Chronic vomiting Malnutrition Frequent falls Bilateral leg pain Pancreatitis Diastolic dysfunction Folate deficiency anemia Ascites Bilateral lower extremity edema Unintentional weight loss Alcohol abuse Tobacco abuse (Last Reviewed 12/30/23 @ 03:36 by Juan Francisco Bennett) Closed intertrochanteric fracture of left hip History of esophagogastroduodenoscopy (~12/2023) punch biopsy, skin of ankle, right lateral (11/24/16) foot surgery (~2000) Ligation of fallopian tube (~1999) ENT/Nasal surgery (~2007) Most Recent Vital Signs Temperature 36.3 C L 12/30/23 05:27 Temperature Source Temporal Artery Scan 12/30/23 03:12 Pulse 108 H 12/30/23 05:27 Pulse Rhythm Regular 12/30/23 05:27 Pulse 105 H 12/30/23 02:10 Respiratory Rate 22 12/30/23 05:27 Respiratory Effort Normal, Non-Labored 12/30/23 05:27 Respiratory Depth Shallow 12/30/23 05:27 Respiratory Pattern Tachypnea 12/30/23 05:27 Blood Pressure 141/87 H 12/30/23 05:27 Blood Pressure Mean 86 12/29/23 23:39 Blood Pressure Position Supine 12/29/23 21:09 Pulse Oximetry 99 12/30/23 05:27 Oxygen Delivery Method Room Air 12/30/23 05:27 Oxygen Flow Rate 0 12/30/23 05:27 Pain Level 10 12/30/23 06:06 Comment RN aware of HR, pain level 12/30/23 03:12 Allergies bacitracin (From Neosporin ([id number])) Allergy (Mild, Verified 12/29/23 21:14) localized redness neomycin (From Neosporin ([id number])) Allergy (Mild, Verified 12/29/23 21:14) localized redness polymyxin B (From Neosporin ([id number])) Allergy (Mild, Verified 12/29/23 21:14) localized redness Active Medications Generic Name Dose Route Start Last Admin Trade Name Freq PRN Reason Stop Dose Admin Sodium Chloride 1,000 mls @ 125 mls/hr 12/30/23 05:22 12/30/23 06:28 Saline 1000ml Bag IV 125 mls/hr INFUSION SIVA Administration Ketorolac Tromethamine 30 mg 12/30/23 03:55 12/30/23 06:06 Ketorolac 30 Mg/Ml Vial IVP 01/04/24 03:54 30 mg Q6H PRN Administration Sodium Chloride 0 ml 12/30/23 05:22 12/30/23 06:07 Normal Saline Flush 10 Ml Syr IVP 10 ml PRN PRN Administration IV IV Catheter Type [Right Upper Peripheral IV arm] IV Catheter Gauge [Right Upper 18 arm] Diet Orders Category Date Time Status Regular/Normal [DIET] Nutrition 12/30/23 Breakfast Active Diagnostics 12/30/23 12/29/23 Range/Units 06:33 22:15 WBC Pending 5.00 (4.4-10.8) 10^3/uL RBC Pending 2.92 L (3.93-5.22) 10^6/uL Hgb Pending 9.9 L (11.2-15.7) g/dL Hct Pending 29.6 L (36.0-46.0) % MCV Pending 101 H D (80-95) fL MCH Pending 33.9 H (27.0-33.0) pg MCHC Pending 33.4 (32.0-36.0) % RDW Pending 17.0 H (11.7-14.6) % Plt Count Pending 206 (130-400) 10^3/uL MPV Pending 10.7 (8.0-11.0) fL Immature Gran % 0.8 % Neutrophils % 65.2 % Lymphocytes % 18.2 % Monocytes % 8.2 % Eosinophils % 6.4 % Basophils % 1.2 % Nucleated RBC % 0.0 (0.0-0.3) % Absolute Neutrophils 3.26 (1.2-6.7) 10^3/uL Absolute Lymphocytes 0.91 L (1.2-3.4) 10^3/uL Absolute Monocytes 0.41 (0.1-0.8) 10^3/uL Absolute Eosinophils 0.32 (0.0-0.7) 10^3/uL Absolute Basophils 0.06 (0.0-0.2) 10^3/uL ESR 18 (0-30) mm/hr PT Pending INR Pending VBG Lactate 1.3 2.4 H* (0.6-1.4) mmol/L Sodium Pending 128 L (136-145) mmol/L Potassium Pending 4.1 (3.5-5.1) mmol/L Chloride Pending 98 (98-107) mmol/L Carbon Dioxide Pending 19.1 L (21.0-32.0) mmol/L Anion Gap Pending 10.9 (3-11) mmol/L BUN Pending 4 L (7-18) mg/dL Creatinine Pending 0.6 (0.55-1.02) mg/dL Est GFR (CKD-EPI 2020) Pending 101.42 (mL/min/1.73m2) Glucose Pending 59 L (74-106) mg/dL Calcium Pending 9.7 (8.5-10.1) mg/dL Magnesium Pending Total Bilirubin Pending 0.53 (0.2-1.0) mg/dL AST Pending 53 H (15-37) U/L ALT Pending 56 (14-59) U/L Alkaline Phosphatase Pending 197 H (46-116) U/L C-Reactive Protein 6.35 H (<or=0.5) mg/dL Total Protein Pending 5.2 L (6.4-8.2) g/dL Albumin Pending 1.6 L (3.4-5.0) g/dL Procalcitonin 0.2 ng/mL Ethyl Alcohol 86.8 H (<10) mg/dL [id number] Documentation Fingerstick Glucose Start: 12/29/23 23:41 Freq: Status: Active Protocol: Activity Type Activity Date Activity User E-sign Co-sign Detail Recorded Client Recorded Date Recorded By Document 12/30/23 04:55 BKG DAEMON(3) [id number] 12/30/23 04:56 BKG DAEMON(4) Intake and Output - 24 Hour Total 12/29/23 20:59 thru 12/30/23 05:27 Intake Total 20 Balance 20 Weight 50.802 kg Intake: IV 20 Falls Risk Assessment History of Falls Previous History 12/30/23 05:27 Contributing Factors Unstable,Impairments, 12/30/23 05:27 Incontinence Ambulatory Aids Uses ambulatory device + 12/30/23 05:27 Tubes/Lines None 12/30/23 05:27 Gait Evaluation W/any additional score 12/30/23 05:27 Cognition Cognitive impairment 12/30/23 05:27 Fall Total Score 89 12/30/23 05:27 Level of Risk Maximum Risk 12/30/23 05:27 Problems (Last Reviewed 12/30/23 @ 03:36 by Juan Francisco Bennett) Cellulitis (Acute) Chronic hyponatremia (Chronic) COPD (chronic obstructive pulmonary disease) (Chronic) PVD (peripheral vascular disease) (Chronic) Hypoglycemia (Acute) Tobacco use disorder (Chronic 01/28/14) Alcohol abuse (Chronic) Bilateral leg ulcer (Acute) Notes 12/30/23 00:09 Nursing Notes by Tameka Frazier Referral faxed to [facility] to f/u week of 01/02/24 for leg wounds, referrals to [facility].Nursing Note: Initialized on 12/30/23 00:09 - END OF NOTE v v v v v v v v v Sending and/or Receiving Nurses: Please use comment section below to note any information pertinent to the patient hand-off not included above. Information / Comments: Pt complaining of 20/10 pain in BLE. Open wounds to bilateral shins, draining serous fluid; cellulitis to BLE. Pt hypertensive and tachycardic, afebrile. Very poor PO intake. ETOH use, positive blood ETOH at admission to ED. Hypoglycemic; ED nursing provided juice: FSBG increased to 80. Pt refused to mobilize. Pt states that she quit taking her home medications two months ago Pt states that she recent received an eviction notice. Difficult to place IV. US guided PIV placed in RUE Report received from: Zach Hawkins RN @ 0508 on 12/30/23
[2023-12-30 07:06] LABS: HCT 29.3 % (36.0-46.0); HGB 10.1 g/dL (11.2-15.7); MCH 34.5 pg (27.0-33.0); MCHC 34.5 % (32.0-36.0); MCV 100 fL (80-95); MPV 11.4 fL (8.0-11.0); Platelet Count 214 10^3/uL (130-400); RBC 2.93 10^6/uL (3.93-5.22); RDW 16.9 % (11.7-14.6); RDW-SD 60.6 fL; WBC 6.86 10^3/uL (4.4-10.8)
[2023-12-30 07:08] LABS: ALT 58 U/L (14-59); AST 47 U/L (15-37); Albumin 1.6 g/dL (3.4-5.0); Alkaline Phosphatase 205 U/L (46-116); Anion Gap 8.4 mmol/L (3-11); BUN 6 mg/dL (7-18); Bilirubin, Total 0.72 mg/dL (0.2-1.0); CO2 21.6 mmol/L (21.0-32.0); CREATININE 0.7 mg/dL (0.55-1.02); Chloride 99 mmol/L (98-107); Estimated GFR 97.72 (mL/min/1.73m2); Glucose 83 mg/dL (74-106); Magnesium 1.3 mg/dL (1.8-2.4); Sodium 129 mmol/L (136-145)
[2023-12-30] MEDS: VANCOMYCIN/WATER (PEG) 1.25 GM/250 ML BAG IV (08:37)
--- NOTE | 2023-12-30 09:01 | PDOC.CMIN ---
Date of service: 12/30/23 Time of Service: 09:01 Care Management Initial Assmt Initial Assessment Reason for Hospitalization: cellulitis Functional Status/Living Situation Patient Presentation: Bonifacio was lying in bed when CM met with her. She stated that she just woke up shortly before CM arrived. She stated that she is having pain in her legs and feet, where she has wounds, and she asked to talk to her nurse about medication. CM requested her RN, who arrived shortly after. Bonifacio stated that she is worried about housing, as she recently received an eviction notice, which stated that she needs to leave her home by 01/26/24. CM discussed sending a referral to community connections, who can help connect her to community resources regarding housing; she agreed and CM sent the referral. Bonifacio requested a cup of coffee, and stated that it was difficult to talk because she is in a lot of pain; CM provided her with a cup of coffee. Per report, she is being treated with IV antibiotics currently. She was evaluated by PT today, who recommended SNF for short term rehab. CM met with Bonifacio again to discuss this, and she agreed to a referral being sent to the [facility] for short term rehab. She stated that she has been there before and she had a great experience. CM sent the referral to the [facility], as requested. CM will continue to follow. 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) Instrumental Activities of Daily Living (ADLs): Independent Medications Medication Management: No Issues/Barriers identified Physical Functioning/Mobility Assistive Device: Electric w/c, RW, hospital bed Advance Directives Advance Directives: Do you have an Advance Directive: N 08/15/23 14:16 AD [facility]: N 08/15/23 14:16 Date Asked 12/23/23 12/23/23 14:33 AD Date Reviewed COLST [facility] Yes 08/15/23 14:16 COLST Date Scanned 01/03/21 08/15/23 14:16 Code Status Resuscitation Status Full Code Insurance Coverage/Financial Issues Insurance: B/C federal Care Team Visit Care Team Role Provider Type MARIANO KEARNEY NP Primary Care Provider [facility]IC[facility] Emmie Alanis MD Emergency Provider [facility]IC[facility] Juan Francisco Bennett Admit Provider [facility]IC[facility] Attending Provider Discharge Potential Discharge Needs: PT Evaluation and PCP F/U Appt Anticipated Barriers to Discharge: None Identified Patient/Family Education Needs: Review discharge instructions, discuss Ask Me Three Transportation: [facility] Plan: Anticipate Bonifacio will return home once medically cleared with a resumption of services. She will transport via [facility], coordinated by CM. She will follow up with her PCP and discharge plan of care. CM will continue to follow. PFSH All Active Problems (Updated 12/30/23 @ 06:57 by Juan Francisco Bennett) Cellulitis (Acute) Chronic hyponatremia (Chronic) Fracture of greater trochanter of right femur (Acute) Hypotension (Acute) Cellulitis (Acute) Leg pain (Acute) COPD (chronic obstructive pulmonary disease) (Chronic) Hypomagnesemia (Acute) Weakness of neck (Acute) Elevated ferritin (Acute) Compression fracture of L1 lumbar vertebra (Acute) Steatosis (Acute) Mild Portal hypertensive gastropathy (Acute) Wound of right lower extremity (Acute) into the fat layer Superior mesenteric artery stenosis (Acute) Renal artery stenosis (Acute) Diverticulosis (Acute) Celiac artery stenosis (Acute) Atherosclerosis of abdominal aorta (Acute) Severe Coronary artery calcification seen on CAT scan (Acute) Gastritis (Acute) Lacerations of multiple sites of leg (Acute) Weakness (Acute) COPD with acute exacerbation (Acute) COPD (chronic obstructive pulmonary disease) (Chronic) Shortness of breath (Acute) Tobacco dependence syndrome (Chronic) Edema, peripheral (Acute) Cellulitis of left leg (Acute) Ambulatory dysfunction (Acute) Edema of both lower legs (Acute) Congestive heart failure (Chronic) COPD exacerbation (Acute) Severe sepsis (Acute) Prolonged QT interval (Acute) Respiratory failure (Acute) Sepsis (Acute) Shock (Acute) Hypomagnesemia (Acute) Difficulty walking (Acute) PVD (peripheral vascular disease) (Chronic) Acute hypokalemia (Acute) Hypoglycemia (Chronic) Alcoholic ketoacidosis (Acute) Laceration of scalp (Acute) Fall (Acute) Chronic left hip pain (Acute) Contusion of hip (Acute) Smoker (Acute) Closed fracture of left hip (Acute) Anxiety (Chronic) Cavitary lesion of lung (Acute) Tobacco use disorder (Chronic 01/28/14) Pleural effusion (Acute) Hypomagnesemia (Acute) Fluid overload (Acute) Chest wall muscle strain (Acute) Hypokalemia (Acute) Emphysema lung (Acute) Nicotine dependence, cigarettes, uncomplicated (Acute) Atherosclerosis (Acute) Gastric wall thickening (Acute) Stenosis of right internal carotid artery (Acute) Mass of upper lobe of right lung (Acute) Alcohol abuse (Chronic) Dehydration (Acute) Diarrhea (Acute) Hypomagnesemia (Chronic) B12 deficiency (Acute) Hypocalcemia (Chronic) Ascites (Acute) Chronic liver disease (Chronic) Weight loss, non-intentional (Acute) Early satiety (Acute) Folate deficiency (Acute) Hypomagnesemia (Acute) Hypokalemia (Acute) Leg pain (Acute) Bilateral leg ulcer (Acute) Medical History Hyperkalemia Duodenitis without hemorrhage Cellulitis GI bleeding Right upper quadrant abdominal pain Leg pain Hypokalemia Chest pain due to GERD Gastroenteritis Hypotension Macrocytic anemia Advanced care planning/counseling discussion Palliative care patient Pneumonia Pulmonary nodule COPD (chronic obstructive pulmonary disease) Hypomagnesemia Cachexia Hepatic fibrosis Ulcer of lower extremity Hair loss Vitamin D deficiency Chest pain Gastroesophageal reflux disease Hx pulmonary embolism COPD (chronic obstructive pulmonary disease) Chronic vomiting Malnutrition Frequent falls Bilateral leg pain Pancreatitis Diastolic dysfunction Folate deficiency anemia Ascites Bilateral lower extremity edema Unintentional weight loss Alcohol abuse Tobacco abuse Surgical History Closed intertrochanteric fracture of left hip s/p IMN fixation (05/18/23) History of esophagogastroduodenoscopy (~12/2023) punch biopsy, skin of ankle, right lateral (11/24/16) negative for malignancy, sparse inflammation and reactive blood vessels foot surgery (~2000) Ligation of fallopian tube (~1999) ENT/Nasal surgery (~2007) Family History Father Lung disease Cancer Lung Social History Smoking/Tobacco Use Status: Current every day Tobacco Type: cigarettes Tobacco: How many years used: 45 Quit status: considering quitting Second Hand Exposure: Yes Smoking risk assessment performed?: Yes Alcohol Intake: current Alcohol Intake frequency: 3 or more drinks per day Alcohol type: wine and hard liquor Counseling given: Yes Counseling provided: provider counseling Drug use: Never Substance use type: marijuana Housing: apartment Current gender identity: female Do you feel safe at home: Yes Do you feel safe in your relationship?: Yes Additional Social history: Lives alone in studio in [facility], 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 Grew up in [facility], sisters in area. History History Para 0 Hx # Term Pregnancies Multiple births Hx # Pregnancies Ectopic pregnancies AB induced Hx Number of Living Children AB spontaneous Readmission Within the Past 30 Days Yes or No: Yes Date of First Admission Date of 1st Admission: 12/23/23 Date of this Admission Date of Admission: 12/30/23 This admission was: Through ED ED visits How many ED visits in the past 12 months: 33 Assessment for Readmission Summary of readmission circumstances, based upon interviews: Bonifacio left AMA on her last visit, which was earlier this month. On this admission, she stated that she feels that she cannot take care of herself well at home, alone, anymore. She is also concerned about an impending eviction from her apartment. CM discussed alternate discharge plans, and she agreed to SNF placement for short term rehab, which was recommended by PT. CM sent referrals. Bonifacio may have had a more successful transition to the community if she did not leave AMA on her last visit, and completed her course of treatment. She expressed understanding of the importance of completing treatment and remaining in the hospital until medically cleared. CM will continue to follow. SDOH(Care Management) Screening Will the Patient Participate in the Screening?: Yes Do you worry about having a steady place to live?: yes Problems where you live: no known problems In the past 12 months, have you had to go without electric, gas, oil or water in your home?: no Have you or anyone in your house had to go without enough food to eat?: yes Has lack of transportation kept you from medical appointments or from doing things needed for daily living?: no Has anyone in your support network made you feel unsafe for any reason?: no Health Related Social Needs Health related social needs: housing instability, housed, with risk of homelessness(Z59.811) and food insecurity(Z59.41) Health related social needs details: Pt states that she is being evicted from her house and is no longer able to care for self at home. Anticipated HH Services Anticipated HH Services at Discharge [facility] Anticipated Date of Discharge: 01/01/24. Following Provider: Mariano Kearney.
--- NOTE | 2023-12-30 12:50 | NUR.NOTE ---
Nursing Note:Refused meds, states, she can't possibly be expected to take pills, states she stopped taking all her meds months ago, pt moaning, yelling out, ouch, ouch, demanding we give her something for her pain. She was offered Tylenol and refused.
[2023-12-30] MEDS: Acetaminophen 325 MG TAB PO ×2 (13:15→20:20)
--- NOTE | 2023-12-30 13:34 | NUR.NOTE ---
Nursing Note: Physical therapy to room to work with patient. Patient finally willing to take the ordered tylenol. She is slurring her words. She is making demands that are beyond nursings scope. credit manager Umm at bedside. Patient does not understand why we can't get her into a new apartment, cloth her, and keep her until she can get a new apartment. She is being evicted and was given a 30day notice.
--- NOTE | 2023-12-30 14:01 | IN_ITS ---
PT Notes Visit Reasons: Cellulitis Physical Therapy Inpatient Initial Evaluation Date: 12/30/2023 Referring Doctor: Nikunj Downey MD PT Orders: PT CONSULT: fall safety assessment Precautions: Fall. Standard. Activity as tolerated. Patient Profile/Admitting Diagnosis: Fannie is a 63-year-old female who presented to the ED on 12/29/23, left AMA, and represented today due to low blood sugar, difficulty walking, and chronic appearing wounds on B legs. Patient is admitted for management of bilateral lower extremity cellulitis, EtOH abuse, hyponatremia, hypoglycemia, PVD, COPD, and tobacco use disorder. PMHX: All Active Problems Edema, peripheral (Acute) Cellulitis of left leg (Acute) Ambulatory dysfunction (Acute) Edema of both lower legs (Acute) Congestive heart failure (Chronic) COPD exacerbation (Acute) Cellulitis (Acute) Severe sepsis (Acute) Prolonged QT interval (Acute) Respiratory failure (Acute) Leg pain (Acute) Sepsis (Acute) Shock (Acute) Hypomagnesemia (Acute) Hypokalemia (Acute) Difficulty walking (Acute) PVD (peripheral vascular disease) (Chronic) Atherosclerosis of aorta (Acute) Leg swelling (Acute) Acute hypokalemia (Acute) Hypoglycemia (Acute) Alcoholic ketoacidosis (Acute) Laceration of scalp (Acute) Fall (Acute) Chronic left hip pain (Acute) Contusion of hip (Acute) Closed intertrochanteric fracture of left hip (Acute) s/p IMN fixation (05/18/23)Smoker (Acute) Closed fracture of left hip (Acute) Fall (Acute) Alcohol intoxication (Acute) Anxiety (Chronic) Cavitary lesion of lung (Acute) H/O ETOH abuse (Acute) Tobacco use disorder (Acute 01/28/14) Pleural effusion (Acute) Hypomagnesemia (Acute) Fluid overload (Acute) Chest pain due to GERD (Acute) Chest wall muscle strain (Acute) Hypokalemia (Acute) Emphysema lung (Acute) Nicotine dependence, cigarettes, uncomplicated (Acute) Atherosclerosis (Acute) Gastric wall thickening (Acute) Stenosis of right internal carotid artery (Acute) Mass of upper lobe of right lung (Acute) Alcohol abuse (Chronic) Dehydration (Acute) Diarrhea (Acute) Hypomagnesemia (Chronic) B12 deficiency (Acute) Ascites (Acute) Chronic liver disease (Chronic) Weight loss, non-intentional (Acute) Macrocytic anemia (Acute) Early satiety (Acute) Folate deficiency (Acute) Hypomagnesemia (Acute) Hypokalemia (Acute) Leg pain (Acute) Cellulitis (Acute) Bilateral leg ulcer (Acute) Medical History Pulmonary nodule COPD (chronic obstructive pulmonary disease) Hypomagnesemia Cachexia Hepatic fibrosis Ulcer of lower extremity Hair loss Vitamin D deficiency Chest pain Gastroesophageal reflux disease Hx pulmonary embolism COPD (chronic obstructive pulmonary disease) Chronic vomiting Malnutrition Frequent falls Bilateral leg pain Pancreatitis Diastolic dysfunction Folate deficiency anemia Ascites Bilateral lower extremity edema Unintentional weight loss Alcohol abuse Tobacco dependence syndrome Tobacco abuse Surgical History punch biopsy, skin of ankle, right lateral (11/24/16) negative for malignancy, sparse inflammation and reactive blood vessels foot surgery (~2000) Ligation of fallopian tube (~1999) ENT/Nasal surgery (~2007) Social History/Home Situation: Lives alone in an apartment building with a ramp to enter. No longer drives. For the past copule of moths have been highly depednent on wheelchair for all mobility due to weakness in B LE. Sister helps with grocery shopping. Oftentimes ruses [facility] for some of her errands. Equipment Owned/DME: FWW, SPC, wheelchair Subjective: 10/10 pain with movement. Wanted to be sedated before she is moved as pain gets out of control for her. Wants to know if she can get a stronger pain pill than Tylenol. Objective: General Observation: Resting in bed. Erythema and wounds to B LE noted Mental Status: Alert and oriented as to person, place, time, and purpose. Unable to focus due to pain level, tearful Pain: As above Vital Signs: Closely monitored by nursing staff ROM: Right Lower Extremity: Unwilling to move extremity due to pain Left Lower Extremity: Unwilling to move extremity due to pain Strength: Right Lower Extremity: Hip flexors 4-/5. Hip abductors 4-/5. Knee flexors 4-/5. Knee extensors 4-/5. Ankle dorsiflexors 4-/5. Ankle plantarflexors 4-/5. Left Lower Extremity: Hip flexors 4-/5. Hip abductors 4-/5. Knee flexors 4-/5. Knee extensors 4-/5. Ankle dorsiflexors 4-/5. Ankle plantarflexors 4-/5. Bed Mobility/Transfers: Moderate cueing provided for use of B hands as needed for support, movement sequence, Ad management, and and posture to reduce fall risk and minimize pain report. Supine to sit maximal assist with HOB at 30 degrees Sit to stand unable to test Stand to sit unable to test Bed to reclining chair unable to test Gait: Unable to test Balance: Static Sitting: Unable to assume due to pain Dynamic Sitting: Unable to assume due to pain Static Standing: Unable to test Dynamic Standing: Unable to test Special Tests: Mobility Limitations Standardized Measure [facility] AM-PAC 6 clicks Basic Mobility Inpatient Short Form: Raw Score: 8 CMS Score: 87% deficit Informed Consent/Education: Patient was instructed in purpose of PT consult and plan of care. Agreeable to proceed with established PT POC to achieve personal goals. ASSESSMENT: B LE cellulitis compounded by hyperalgesia. Unable to complete transfer and ambulation assessment due to heightened response to pain with movement, patient was adamant about not moving unless her pain level is addressed first. Tried three times to see patient but she was unrelenting even with Tylenol on board half an hour before she was seen for the third time. Mood highly labile because of pain level. Patient presents with clinical signs and symptoms consistent with current/admitting diagnoses that have resulted to mobility limitations, gait instability, generalized weakness, and overall ADL decline as demonstrated by the following impairment level findings: 1. Decreased strength to B LE major muscle groups 2. Impaired sitting/standing balance 3. Impaired activity tolerance 4. Severe pain in B legs and generalized pain at 10/10 with movement or when touched 5. Highly labile mood Impairments are contributing to the following functional limitations: 1. Decline in bed mobility skills 2. Unable to participate in transfer skills 3. Unable to participate in ambulation without assistive device and physical assistance 4. Increased risk for skin breakdown 5. Increased risk for falls Patient is assessed as a 46789 high complexity based on the following: History: 64-year-old female with past medical history as indicated above Examination: Demonstrable impairment in strength, balance, and mobility level with underlying impairments and functional limitations as exhibited above as well as deficit score of 100% utilizing the [facility] Mobility Inpatient Short Form Presentation: Evolving Decision Makin high complexity Goals: Goals X1 week 1. Supine-Sit independent 2. Sit-Supine independent 3. Sit-Stand independent 4. Stand-Sit independent with FWW 5. Bed-Chair independent with FWW 6. Chair-Bed independent with FWW 7. Independent gait on level surface with use of FWW for at least 150 feet without report of pain nor dyspnea 8. Good static and dynamic standing balance/tolerance Plan of Care/Treatment Plan: 1-2x/day, 7 days/week x 1 week. Plan of care has been reviewed with the OIL REFINERY PROCESS TECHNICIAN providing the service under Physical Therapy direction. Initiate Physical Therapy intervention for pain management as needed, strengthening, bed mobility, transfers, gait, stairs, balance training, and use of assistive device. DISCHARGE RECOMMENDATIONS: [] Home with no services [] [] Home with services [] Home with outpatient PT [] [X] SNF for continued rehabilitation. Patient will benefit from [facility] facility placement for continued skilled physical therapy services in order to progress mobility level, strength, and balance in preparation for a safe discharge to home. [] Long-Term Care [] [] SNF versus LTC based on ability to participate and progress [] TREATMENT CODE/TIME: 47738 x 30 minutes for 1 unit (13:05-13:13 and 14:01-14:23). Thank you for the opportunity to participate in the care of this patient. Montse Saunders PT, DPT, CLT [facility] [place], [place]
--- NOTE | 2023-12-30 14:29 | NUR.NOTE ---
Nursing Note: Patient refuses to move, refused therapy, states she needs to be heavily sedated if we expect her to move, MD aware.
[2023-12-30] MEDS: traMADol 50 MG TAB PO (15:52)
[2023-12-30] MEDS: cefTAZidime 2,000 MG in Normal Saline 100 ML 200 MG IVPB (15:52)
[2023-12-30] MEDS: Nicotine 2 MG LOZG SUC (15:58)
--- NOTE | 2023-12-30 16:17 | PHACLINREV_ITS ---
Pharmacy Admission Review Admission Clinical Review Admission Pharmacy Review: Cellulitis (Acute) Bilateral leg ulcer (Acute) bacitracin (From Neosporin ([id number])) Allergy (Mild, Verified 12/29/23 21:14) localized redness neomycin (From Neosporin ([id number])) Allergy (Mild, Verified 12/29/23 21:14) localized redness polymyxin B (From Neosporin ([id number])) Allergy (Mild, Verified 12/29/23 21:14) localized redness Resuscitation Status Full Code Height 5 ft 8 in Weight 50.802 kg Comments Comments/Follow Ups: Watch HR, BP, SCr, sodium, mag, labs and for med changes (possible renal dose adjustments). Pharmacy Admission Review Renal Dosing Renal Dosing: BUN 6 mg/dL (7-18) L 12/30/23 06:33 Creatinine 0.7 mg/dL (0.55-1.02) 12/30/23 06:33 Medications needing adjustments: Intervened (Crcl ~46.8 mL/min) List of meds needing interventions: ketorolac- recommended to use lowest effect young dose for the shortest duration possible (7.6-15 mg Q6H); ceftazidime and pregabalin dosing renally adjusted; other current meds okay Anticoagulation Anticoagulation: Hgb 10.1 g/dL (11.2-15.7) L 12/30/23 06:33 Hct 29.3 % (36.0-46.0) L 12/30/23 06:33 Plt Count 214 10^3/uL (130-400) 12/30/23 06:33 INR 1.1 (0.9-1.1) 12/30/23 06:33 Creatinine 0.7 mg/dL (0.55-1.02) 12/30/23 06:33 DVT Prophylaxis: Reviewed Medications: Enoxaparin Opiate Usage Evaluate Pain Scale/Pains Meds: Reviewed Scheduled Bowel Reg ordered if on Opiates?: No (has PRN meds ordered) Relevant Labs Relevant Labs: ESR 18 mm/hr (0-30) 12/29/23 22:15 Sodium 129 mmol/L (136-145) L 12/30/23 06:33 Potassium 4.0 mmol/L (3.5-5.1) 12/30/23 06:33 Chloride 99 mmol/L (98-107) 12/30/23 06:33 Magnesium 1.3 mg/dL (1.8-2.4) L 12/30/23 06:33 C-Reactive Protein 6.35 mg/dL (<or=0.5) H 12/29/23 22:15 Electrolytes, C-Reactive P, ESR: Intervened (PO mag ordered from home med list, will ask provider about possible additional supplementation) DM Control DM Control: Glucose 83 mg/dL (74-106) 12/30/23 06:33 DM Control: N/A Cardiac Review BP, HR, EF%: Reviewed (BP has been up and down and HR has been elevated most of admission so far.) QTc Review QTc: Reviewed (QTc was 504 on 12/25 (previous admission), no EKG done on this admission) IV to PO Switch IV Medications: Reviewed Home Meds Home Med List reviewed: Reviewed (per H&P patient was not taking prescribed medication, list was to be reviewed with only minimal medications to be restarted.) Current Meds Current Medication Order Review: Reviewed Pharmacy Antibiotic Review Relevant Labs: Relevant Labs 12/29/23 22:15 C-Reactive Protein 6.35 H Procalcitonin 0.2 Pharmacy Antibiotic Activity: Abx regimen adjustment and Renal function adjustment Comments: Vanco changed to ceftazidime based on cultures from last admission. Comments Comments/Follow Ups: Watch HR, BP, SCr, sodium, mag, labs and for med changes (possible renal dose adjustments).
[2023-12-30] MEDS: MAGNESIUM SULFATE 4 GM/100 ML BAG IVINF (17:31)
[2023-12-30] MEDS: Pregabalin 50 MG CAP PO (20:20)
[2023-12-31] MEDS: Ketorolac 15 MG/ML VIAL IVP ×3 (00:41→23:55)
[2023-12-31] MEDS: Normal Saline Flush 10 ML SYR IVP ×3 (00:41→21:06)
[2023-12-31] MEDS: Acetaminophen 325 MG TAB PO ×4 (00:42→23:55)
[2023-12-31 03:27] VITALS: BP 114/76; PULSE 88; RESP 18; TEMP 35.7; O2SAT 99
[2023-12-31] MEDS: cefTAZidime 2,000 MG in Normal Saline 100 ML 200 MG IVPB ×2 (03:38→18:40)
[2023-12-31] MEDS: traMADol 50 MG TAB PO ×3 (04:16→18:36)
[2023-12-31] MEDS: Normal Saline 1,000 ML 125 ML IV (06:25)
[2023-12-31 07:14] LABS: Anion Gap 8.4 mmol/L (3-11); BUN 7 mg/dL (7-18); CO2 23.6 mmol/L (21.0-32.0); CREATININE 0.8 mg/dL (0.55-1.02); Calcium 7.5 mg/dL (8.5-10.1); Chloride 102 mmol/L (98-107); Estimated GFR 83.26 (mL/min/1.73m2); Glucose 102 mg/dL (74-106); Magnesium 2.5 mg/dL (1.8-2.4); Potassium 3.3 mmol/L (3.5-5.1); Sodium 134 mmol/L (136-145)
[2023-12-31] MEDS: Tiotropium/Olodaterol 10 PUFF INHALER 2 PUFF IH (07:50)
[2023-12-31] MEDS: Omeprazole 20 MG CAPCR 40 MG PO (07:54)
[2023-12-31 07:56] VITALS: BP 110/92; PULSE 91; RESP 18; TEMP 36.8; O2SAT 99
[2023-12-31] MEDS: Pregabalin 50 MG CAP PO (08:47)
[2023-12-31] MEDS: Thiamine 100 MG TAB 250 MG PO (08:48)
[2023-12-31] MEDS: Magnesium Oxide 400 MG TAB PO (08:48)
[2023-12-31] MEDS: Multivitamin TAB 1 TAB PO (08:48)
--- NOTE | 2023-12-31 10:17 | PGE_ITS ---
Date of Service Date of service: 12/31/23 Time of Service: 10:18 Assessment and Plan Assessment and plan (1) Cellulitis: Start date: 12/30/23 Status: Acute Assessment and plan: No leukocytosis, afebrile and normotensive On previous admission, microbiology from the wounds showed strep B, Pseudomonas, and yeast. The patient was started on vancomycin and then transitioned to ceftazidime Will add antifungal treatment with oral fluconazole; IV fluconazole considered but due to history of QT prolongation oral formulation was chosen. EKG in AM - Mg now 2.5 s/p supplementation CBC in AM Qualifiers: Laterality: unspecified laterality Site of cellulitis: extremity Site of cellulitis of extremity: lower extremity Qualified Code(s): L03.119 - Cellulitis of unspecified part of limb (2) Alcohol abuse: Status: Chronic Assessment and plan: Exposing probable withdrawal and trend labs with better diet. Patient denies Hx of withdrawal but is irritable and labile this AM Later in PM forgot meeting provider during hygiene care with RN Was on Lyrica and changed to Neurontin 300 mg PO BID after discussion with Dr. Downey CMP in AM (3) Chronic hyponatremia: Status: Chronic Assessment and plan: Patient chronically has hyponatremia initial Na at 129 now 134 IVF stopped No alcohol further alcohol intake recommended . BMP in AM (4) Hypoglycemia: Status: Chronic Assessment and plan: Improved; now glucose 102 fasting Most likely d/t ETOH usage and chronic poor nutritional status with chronic liver disease. Continue to monitor hypoglycemia. Continue to encouraged regular diet; offer snacks (5) PVD (peripheral vascular disease): Status: Chronic Assessment and plan: History of PVD might impede wound healing in her lower extremities. Non-compliant with medicines at home (6) COPD (chronic obstructive pulmonary disease): Status: Chronic Assessment and plan: Chronic smoker- non-compliant with home inhaler regimen Continue maintenance therapy with inhalers and as needed HFA therapy. Continue nicotine replacement patch Qualifiers: COPD type: emphysema Emphysema type: other Qualified Code(s): J43.8 - Other emphysema (7) Hypokalemia: Status: Acute Assessment and plan: K 3.3 , repleted CMP in AM (8) Hypomagnesemia: Status: Acute Assessment and plan: Mg 1.3 on admission, supplementation completed , now 2.5 (9) Traumatic ecchymosis of left hip: Status: Acute Assessment and plan: Patient reports fall on right side, denies fall on left hip- bruising noted and reported by RN Patient showed irritation when questions about falls at home External - internal rotation w left hip completed with minimal discomfort, bruising to left hip but no XR-imaging at this time (10) Tobacco use disorder: Status: Chronic Assessment and plan: Nicotine gum and transdermal as needed. Discussed with Dr. Downey Subjective Subjective Patient reports: tolerating liquids well, tolerating a regular diet, voiding w/o difficulty, flatus and bowel movement; denies blood in stool, nausea, vomiting, shortness of breath or fever Exam Narrative Exam Narrative: Constitutional The patient is in be irritable without acute distress, c/o of leg pain- wants to get up and ambulate HENMT: Facial structures with normal appearance Neuro:alert and oriented to self, person, place, time and situation. No neurological focal deficit Chest:Chest is symmetrical and normal appearance Resp: Normal respiratory pattern, speaks in full sentences, unlabored breathing, clear lung bilaterally Cardio: regular rhythm, S1, S2, no murmur, capillary refill<3 sec., bilateral radial and dorsalis pedis pulses are positive, palpable GI: Abdomen is not distended, soft and non tender, bowel sounds are present : Negative Costovertebral angle tenderness, no bladder distension Back/spine/Pelvis:normal alignment;external - internal rotation w left hip completed, bruising to left hip but no XR at this time Integumentary: Bruising to left hip Extremities: able to move LE's Psych: RASS 0, labile mood and irritable affect. Objective Last Vital Signs Temp 36.8 C 12/31/23 07:56 Pulse 91 H 12/31/23 07:56 Resp 18 12/31/23 07:56 BP 110/92 H 12/31/23 07:56 Pulse Ox 99 12/31/23 07:56 Laboratory Results - last 24 hr 12/31/23 06:25 Sodium 134 L Potassium 3.3 L Chloride 102 Carbon Dioxide 23.6 Anion Gap 8.4 BUN 7 Creatinine 0.8 Est GFR (CKD-EPI 2020) 83.26 Glucose 102 Calcium 7.5 L Magnesium 2.5 H PAWSS Have you Been Recently Intoxicated or Drunk Within the Last 30 days?: Yes Have you Ever Experienced Previous Episodes of Alcohol Withdrawal?: No Have you ever Experienced Withdrawal Seizures?: No Have you ever Experienced Delirium Tremens(DT)s?: No Have you ever undergone Alcohol Rehabilitation Treatment (i.e, inpt ot outpatient treatment programs)?: No Have you ever Experienced Blackouts?: Yes Have you ever Combined Alcohol with other Downers within the last 90 days?: No Have you ever Combined Alcohol with any other Substance of Abuse during the last 90 days?: Yes Positive Blood Alcohol level on Presentation? [PCS.BAL]: Yes Evidence of Increased Autonomic Activity (i.e. HR>120, tremor, sweating, agitation, nausea)?: Yes Result: 6 Time Spent with Patient Time Spent with Patient: >50 minutes Time was spent: preparing to see the patient(eg.review tests), obtaining and/or reviewing separately otained hiistory, ordering medications,tests, procedures, referring, communicating with other health patient care assistant, indepentently interpreting results, counseling the patient and care coordination
[2023-12-31 11:28] VITALS: BP 127/82; PULSE 83; RESP 18; TEMP 36; O2SAT 96
[2023-12-31] MEDS: Fluconazole 100 MG TAB 200 MG PO (12:12)
--- NOTE | 2023-12-31 12:18 | PT.INTREAT ---
Date of service: 12/31/23 Time of Service: 10:35 PT Notes Visit Reasons: Cellulitis Inpatient Physical Therapy Treatment Note [facility] Date: 12/31/2023 PRECAUTIONS: Falls, Standard and Activities as tolerated SUBJECTIVE: Not agreeable to getting out of bed but was willing to do some bed exercises as long as I respected her leg pain. Wanted to make a list of exercises she is able to do on her own, while in bed, every 2-3 hours. Will get up to walk once leg pain is better under control. Has finally found a good way to lay in bed that is comfortable. OBJECTIVE: ? PAIN: Extreme pain in legs if moved. ? Therapeutic Exercises ([id number]- 20')): Direct one-on-one instruction in therapeutic exercises to develop strength, endurance, range of motion and flexibility. ? Exercises ? Worked on bridging, quad sets, rolling knees in and out, UE flexion of shoulders from lap to approximately 70-80 degrees, UE maulik-hum jt abd/add within pain free ROM, wrist flexion/ extension, wrist supination / pronation and digit / toe flexion / extension. Only willing to perform 3-5 reps of each but did write exercises down on her activity book next to her bed to perform independently several times t/o the day. Provided skilled instruction in proper exercise performance Provided skilled manual cues to facilitate proper muscle recruitment ASSESSMENT:? Tolerated bed exercises well, although not willing to do may of any of them. PLAN: Hope to try getting out of bed tomorrow if pain is better under control. TREATMENT CODE/TIME: [id number], 10:35 to 10:55 (20 minutes) DISCHARGE RECOMMENDATION: SNF
[2023-12-31] MEDS: Nicotine 2 MG LOZG SUC (12:22)
[2023-12-31 15:46] VITALS: BP 127/81; PULSE 86; RESP 16; TEMP 36.2; O2SAT 98
[2023-12-31] MEDS: POTASSIUM CHLORIDE 20 MEQ/100 ML BAG 50 MEQ IVINF (16:28)
[2023-12-31] MEDS: Gabapentin 300 MG CAP PO ×2 (16:28→20:23)
[2023-12-31] MEDS: Collagenase 30 GM TUBE TP (18:13)
[2023-12-31 20:20] VITALS: BP 111/75; PULSE 93; RESP 18; TEMP 36.3; O2SAT 97
[2023-12-31] MEDS: Potassium Chloride 20 MEQ TABCR PO (20:23)
[2024-01-01] VITALS (8 sets, daily range): BP systolic 101–123; BP diastolic 67–87; PULSE 88–97; RESP 14–18; TEMP 35.9–36.6; O2SAT 93–99
[2024-01-01] MEDS: cefTAZidime 2,000 MG in Normal Saline 100 ML 200 MG IVPB (04:12)
--- NOTE | 2024-01-01 05:28 | NUR.NOTE ---
Nursing Note: 0528 - PATIENT WAS BLADDER SCANNED DUE TO NO VOID IN 24 HOURS. SCAN REVEALED 480CC URINE IN BLADDER. PATIENT DECLINED BED LOYOLA OR COMMODE. DENIES PAIN OR PRESSURE WHEN ABDOMEN PALPATED.
[2024-01-01] MEDS: Normal Saline Flush 10 ML SYR IVP ×4 (05:33→20:46)
[2024-01-01] MEDS: Nicotine 2 MG LOZG SUC ×2 (06:14→18:01)
[2024-01-01 06:44] LABS: Abs Immature Grans 0.04 10^3/uL (0.0-0.06); Absolute Basophil Count 0.06 10^3/uL (0.0-0.2); Absolute Eosinophil Count 0.62 10^3/uL (0.0-0.7); Absolute Lymphocyte Count 1.08 10^3/uL (1.2-3.4); Absolute Monocyte Count 0.53 10^3/uL (0.1-0.8); Absolute Neutrophil Count 5.72 10^3/uL (1.2-6.7); Basophils % 0.7 %; Eosinophils % 7.7 %; HCT 30.2 % (36.0-46.0); HGB 10.1 g/dL (11.2-15.7); Immature Grans % 0.5 %; Lymphocytes % 13.4 %; MCH 34.8 pg (27.0-33.0); MCHC 33.4 % (32.0-36.0); MCV 104 fL (80-95); MPV 11.7 fL (8.0-11.0); Monocytes % 6.6 %; Neutrophils % 71.1 %; Platelet Count 238 10^3/uL (130-400); RDW 17.5 % (11.7-14.6); RDW-SD 65.5 fL; WBC 8.05 10^3/uL (4.4-10.8)
--- NOTE | 2024-01-01 07:00 | RT.EKG_ITS ---
APPROVED REPORT Exam: Resting ECG Reason for Exam: QT prolongation history Patient Location: I HR:91 bpm ECG Measurements Heart Rate 91 AXIS NJ 160 P 40 QRSd 113 QRS 24 QT 376 T 7 QTc 463 Conclusion Sinus rhythm...normal P axis, V-rate 50- 99 Probable left atrial enlargement...P >50mS, <-0.10mV V1 Incomplete right bundle branch block...QRSd >112, terminal axis(90,270) Low voltage, extremity and precordial leads...extremity<0.5mV, precordial<1.0mV
[2024-01-01 07:03] LABS: ALT 35 U/L (14-59); AST 30 U/L (15-37); Albumin 1.2 g/dL (3.4-5.0); Alkaline Phosphatase 174 U/L (46-116); Anion Gap 7.4 mmol/L (3-11); BUN 5 mg/dL (7-18); Bilirubin, Total 0.39 mg/dL (0.2-1.0); CO2 19.6 mmol/L (21.0-32.0); CREATININE 0.8 mg/dL (0.55-1.02); Calcium 7.2 mg/dL (8.5-10.1); Chloride 104 mmol/L (98-107); Estimated GFR 83.26 (mL/min/1.73m2); Glucose 89 mg/dL (74-106); Potassium 4.5 mmol/L (3.5-5.1); Sodium 131 mmol/L (136-145); Total Protein 4.5 g/dL (6.4-8.2)
[2024-01-01 07:30] LABS: Bilirubin Negative (Negative); Blood Negative (Negative); Clarity Clear (Clear); Glucose Negative (Negative); Ketones 15 mg/dL (Negative); Leukocyte Esterase Small (Negative); Nitrite Negative (Negative); Specific Gravity 1.025 (1.005-1.025); Urobilinogen 0.2 mg/dL (Up to 0.2); pH 5.5 (5-8)
[2024-01-01 07:45] LABS: Bacteria Few HPF (Negative); Crystals Negative HPF (Negative); Epithelial Cells Few HPF (Negative); Mucus Moderate (Negative); RBC 0-2 HPF (0-2)
[2024-01-01 07:46] LABS: C & S Indicated? No
[2024-01-01] MEDS: Tiotropium/Olodaterol 10 PUFF INHALER 2 PUFF IH (07:56)
[2024-01-01] MEDS: Acetaminophen 325 MG TAB PO ×2 (08:14→20:45)
[2024-01-01] MEDS: Ketorolac 15 MG/ML VIAL IVP (08:14)
[2024-01-01] MEDS: Omeprazole 20 MG CAPCR 40 MG PO (08:15)
[2024-01-01] MEDS: Collagenase 30 GM TUBE TP (10:00)
--- NOTE | 2024-01-01 10:09 | PTTR_ITS ---
Date of service: 01/01/24 Time of Service: 09:45 PT Notes Visit Reasons: Cellulitis Inpatient Physical Therapy Treatment Note [facility] Date: 01/01/2024 PRECAUTIONS: Fall, Standard, Activities as tolerated SUBJECTIVE: Stated she is willing to roll and do exercises in bed, but still too painful to try even sitting at edge of bed. Stated she was able to do a little of the exercises we discussed yesterday several times t/o the afternoon yesterday. Neck has been very stiff and sore, this has been a long time issue. Did go to PT for a while but really needs a massage daily. OBJECTIVE: ? PAIN: Reports pain level at 0 when at rest in bed, but if she goes to move legs the pain can increase to a 9/10. ? Therapeutic Exercises ([id number] - 17 minutes): Direct one-on-one instruction in therapeutic exercises to develop strength, endurance, range of motion and flexibility. ? Exercises ? Willing to perform quad sets, glut sets, rolling legs in/ out, UE flex/ ext and abd/ adduction, wrist flex/ ext, forearm supination/ pronation for 10 reps each and gentle cervical spine rotation and side bending within pain free range 2-3 reps. Was able to show me she is able to do a limited SLR to approximately 40 degrees with each leg but indicated this causes sharp pains in her lindo areas. Worked on rolling to right and left side, achieving 3 reps of each with a 5 second hold each time. Patient stated she will add this to her exercises to work on in the afternoon. Advised to count out load during hold times to avoid holdin g her breath. ? Provided skilled instruction in proper exercise performance Provided skilled manual cues to facilitate proper muscle recruitment ASSESSMENT:? Continues to be very adamant about not moving out of supine due to pain. We discussed the importance of using her muscles to avoid atrophy and that movement actually helps to reduce pain. PLAN: Continue to work on mobilization to avoid increased weakness and stiffness. TREATMENT CODE/TIME: [id number], 9:45 to 10:02 am (17 minutes) DISCHARGE RECOMMENDATION: SNF
[2024-01-01] MEDS: Enoxaparin 40 MG/0.4 ML SYR SC (11:56)
[2024-01-01] MEDS: Gabapentin 300 MG CAP PO ×2 (11:57→20:45)
[2024-01-01] MEDS: Multivitamin TAB 1 TAB PO (11:57)
[2024-01-01] MEDS: Fluconazole 100 MG TAB 200 MG PO (11:57)
[2024-01-01] MEDS: Thiamine 100 MG TAB 250 MG PO (11:57)
[2024-01-01] MEDS: Potassium Chloride 20 MEQ TABCR PO ×2 (11:57→20:46)
[2024-01-01] MEDS: traMADol 50 MG TAB PO (11:57)
--- NOTE | 2024-01-01 13:44 | PGE_ITS ---
Date of Service Date of service: 01/01/24 Time of Service: 13:44 Assessment and Plan Assessment and plan (1) Cellulitis: Start date: 12/30/23 Status: Acute Assessment and plan: Remains w/o leukocytosis, afebrile- improving lesions On previous admission, microbiology from the wounds showed strep B, Pseudomonas, and yeast. Initially vancomycin and then ceftazidime - Will stop Initiate Levaquin 750 mg IV Q 24 - EKG to reevaluate QT last on 12/25 was 0.504 which was less than historically; magnesium repleted and other drugs with potential for QT prolongation were modified Telemetry Oral fluconazole stopped Miconazole to legs EKG 01/01/2024 QT 376 ms QTC 463 ms magnesium in AM CBC in AM Qualifiers: Site of cellulitis: extremity Site of cellulitis of extremity: lower extremity Laterality: unspecified laterality Qualified Code(s): L03.119 - Cellulitis of unspecified part of limb (2) Alcohol abuse: Status: Chronic Assessment and plan: Denied history of withdrawal and trend labs with better diet. Stated that she will not drink anymore today as she will need to go to a [facility] after been told to clear apartment d/t smoking by 01/25 Continue Neurontin 300 mg PO BID; might decrease craving for ETOH- AT 30, ALT 35, ALK phos 174 improved from prior CMP in AM (3) Chronic hyponatremia: Status: Chronic Assessment and plan: Patient chronically has hyponatremia initial Na at 129 now 131- will continue to monitor Initially treated with IVF then stopped No alcohol further alcohol intake recommended . CMP in AM (4) Hypoglycemia: Status: Chronic Assessment and plan: Now glucose 89 fasting Most likely d/t ETOH usage and chronic poor nutritional status Continue to monitor hypoglycemia. Continue to encouraged regular diet CMP in AM (5) PVD (peripheral vascular disease): Status: Chronic Assessment and plan: Reporting not taking home meds for over a month and feeling better History of PVD might impede wound healing in her lower extremities. Might need f/u with vascular medicine s/p discussion with outpatient provider (6) COPD (chronic obstructive pulmonary disease): Status: Chronic Assessment and plan: Continue nicotine replacement therapy On maintenance therapy with inhalers and as needed HFA therapy. Qualifiers: COPD type: emphysema Emphysema type: other Qualified Code(s): J43.8 - Other emphysema (7) Hypokalemia: Status: Acute Assessment and plan: K4.5, resolved CMP in AM (8) Hypomagnesemia: Status: Acute Assessment and plan: Mg 1.3 on admission, supplementation completed , now 2.5 magnesium in AM (9) Traumatic ecchymosis of left hip: Status: Acute Assessment and plan: Patient reports fall on right side, denies fall on left hip- bruising noted and reported by RN on 12/30 12/30-External - internal rotation w left hip completed with minimal discomfort, bruising to left hip but no XR-imaging needed then no c/o of pain to hips today (10) Tobacco use disorder: Status: Chronic Assessment and plan: Nicotine gum and transdermal patch PRN (11) Discharge planning issues: Status: Acute Assessment and plan: SNF but only considering [facility] as per discussion with CM The patient reported eviction from apartment d/t rule breaking re:no smoking with 01/25 deadline to remove her belongings Discussed with Dr. Downey Subjective Subjective Patient reports: feels better, still having pain, tolerating liquids well, tolerating a regular diet, voiding w/o difficulty, bowel movement and afebrile; denies diarrhea, nausea, vomiting or shortness of breath Exam Narrative Exam Narrative: Constitutional The patient agreeable and cooperative, c/o of leg pain ongoing from knee to feet Neuro:alert and oriented X 4. No neurological focal deficit Resp: Unlabored breathing, clear lung bilaterally but diminished left base Cardio: regular rhythm, S1, S2, no murmur, weak pedal pulses GI: Abdomen is not distended, soft and non tender, bowel sounds are present : Negative Costovertebral angle tenderness Back/spine/Pelvis:normal alignment Extremities: able to move LE's Psych: RASS 0, congruent mood and normal -sad affect. Objective Last Vital Signs Temp 36.1 C L 01/01/24 11:05 Pulse 97 H 01/01/24 11:05 Resp 18 01/01/24 11:05 BP 111/76 01/01/24 11:05 Pulse Ox 97 01/01/24 11:05 Laboratory Results - last 24 hr 01/01/24 01/01/24 06:20 07:00 WBC 8.05 RBC 2.90 L Hgb 10.1 L Hct 30.2 L MCV 104 H D MCH 34.8 H MCHC 33.4 RDW 17.5 H Plt Count 238 MPV 11.7 H Immature Gran % 0.5 Neutrophils % 71.1 Lymphocytes % 13.4 Monocytes % 6.6 Eosinophils % 7.7 Basophils % 0.7 Nucleated RBC % 0.0 Absolute Neutrophils 5.72 Absolute Lymphocytes 1.08 L Absolute Monocytes 0.53 Absolute Eosinophils 0.62 Absolute Basophils 0.06 Sodium 131 L Potassium 4.5 D Chloride 104 Carbon Dioxide 19.6 L Anion Gap 7.4 BUN 5 L Creatinine 0.8 Est GFR (CKD-EPI 2020) 83.26 Glucose 89 Calcium 7.2 L Total Bilirubin 0.39 AST 30 ALT 35 Alkaline Phosphatase 174 H Total Protein 4.5 L Albumin 1.2 L Urine Color Yellow Urine Clarity Clear Urine pH 5.5 Ur Specific [place] 1.025 Urine Protein Negative Urine Ketones 15 H Urine Blood Negative Urine Nitrite Negative Urine Bilirubin Negative Urine Urobilinogen 0.2 Ur Leukocyte Esterase Small H Urine RBC 0-2 Urine WBC 5-10 Ur Epithelial Cells Few Urine Crystals Negative Urine Bacteria Few Urine Casts Urine Mucus Moderate Ur Culture Indicated? No Urine Glucose Negative PAWSS Have you Been Recently Intoxicated or Drunk Within the Last 30 days?: Yes Have you Ever Experienced Previous Episodes of Alcohol Withdrawal?: No Have you ever Experienced Withdrawal Seizures?: No Have you ever Experienced Delirium Tremens(DT)s?: No Have you ever undergone Alcohol Rehabilitation Treatment (i.e, inpt ot outpatient treatment programs)?: No Have you ever Experienced Blackouts?: Yes Have you ever Combined Alcohol with other Downers within the last 90 days?: No Have you ever Combined Alcohol with any other Substance of Abuse during the last 90 days?: Yes Positive Blood Alcohol level on Presentation? [PCS.BAL]: Yes Evidence of Increased Autonomic Activity (i.e. HR>120, tremor, sweating, agitation, nausea)?: Yes Result: 6 Time Spent with Patient Time Spent with Patient: >50 minutes Time was spent: preparing to see the patient(eg.review tests), obtaining and/or reviewing separately otained hiistory, ordering medications,tests, procedures, referring, communicating with other health healthcare economics consultant, indepentently interpreting results, counseling the patient and care coordination
--- NOTE | 2024-01-01 16:13 | NUR.NOTE ---
[facility] faxed a Home Health Certification and Plan of Care for Leanna Wang to fill out. Leanna filled out the form and it was faxed back to [facility]. The form was then sent to [employer] for scanning. Nursing Note:
[2024-01-01] MEDS: levoFLOXacin 750 MG/150 ML BAG 100 MG IVPB (17:09)
[2024-01-01] MEDS: Prochlorperazine 10 MG/2 ML VIAL 5 MG IVP (17:09)
[2024-01-01] MEDS: oxyCODONE 5 MG TAB PO (20:45)
[2024-01-02] MEDS: Ketorolac 15 MG/ML VIAL IVP ×2 (00:52→08:34)
[2024-01-02] MEDS: Acetaminophen 325 MG TAB PO ×2 (01:05→06:27)
[2024-01-02] MEDS: oxyCODONE 5 MG TAB PO ×3 (03:16→20:33)
[2024-01-02] MEDS: Lidocaine 2% Jelly 6 ML SYR TP (05:18)
[2024-01-02] MEDS: Normal Saline Flush 10 ML SYR IVP ×4 (05:19→16:45)
[2024-01-02 06:54] LABS: Abs Immature Grans 0.03 10^3/uL (0.0-0.06); Absolute Basophil Count 0.04 10^3/uL (0.0-0.2); Absolute Eosinophil Count 0.27 10^3/uL (0.0-0.7); Absolute Lymphocyte Count 1.09 10^3/uL (1.2-3.4); Absolute Monocyte Count 0.36 10^3/uL (0.1-0.8); Absolute Neutrophil Count 3.75 10^3/uL (1.2-6.7); Basophils % 0.7 %; Eosinophils % 4.9 %; HCT 30.8 % (36.0-46.0); HGB 10.4 g/dL (11.2-15.7); Immature Grans % 0.5 %; Lymphocytes % 19.7 %; MCH 34.9 pg (27.0-33.0); MCHC 33.8 % (32.0-36.0); MCV 103 fL (80-95); MPV 12.2 fL (8.0-11.0); Monocytes % 6.5 %; Neutrophils % 67.7 %; Platelet Count 242 10^3/uL (130-400); RBC 2.98 10^6/uL (3.93-5.22); RDW-SD 66.8 fL; WBC 5.54 10^3/uL (4.4-10.8)
[2024-01-02 07:05] LABS: ALT 36 U/L (14-59); AST 40 U/L (15-37); Albumin 0.9 g/dL (3.4-5.0); Alkaline Phosphatase 192 U/L (46-116); Anion Gap 7.3 mmol/L (3-11); BUN 4 mg/dL (7-18); Bilirubin, Total 0.51 mg/dL (0.2-1.0); CO2 17.7 mmol/L (21.0-32.0); CREATININE 0.2 mg/dL (0.55-1.02); Calcium 7.3 mg/dL (8.5-10.1); Chloride 100 mmol/L (98-107); Estimated GFR 132.17 (mL/min/1.73m2); Glucose 64 mg/dL (74-106); Potassium 5.4 mmol/L (3.5-5.1); Sodium 125 mmol/L (136-145); Total Protein 4.4 g/dL (6.4-8.2)
--- NOTE | 2024-01-02 07:20 | W.PM.PROGNOT ---
Date of Service Date of service: 01/02/24 Time of Service: 07:20 Assessment and Plan Assessment and plan (1) Cellulitis: Start date: 12/30/23 Status: Acute Assessment and plan: Remains w/o leukocytosis, afebrile- improving lesions On previous admission, microbiology on 12/23/2023 showed strep B, Pseudomonas, and yeast in wounds Initially on vancomycin and then on ceftazidime which was stopped Now on oral Levaquin 750 mg with telemetry for QT monitoring d/t history of QT prolongation repleted and other drugs with potential for QT prolongation were modified Telemetry; SR QTC 476 ms will contiue to monitor Continue Miconazole topical application to legs EKG 01/01/2024 QT 376 ms QTC 463 ms magnesium pending CBC in AM Qualifiers: Laterality: unspecified laterality Site of cellulitis: extremity Site of cellulitis of extremity: lower extremity Qualified Code(s): L03.119 - Cellulitis of unspecified part of limb (2) Alcohol abuse: Status: Chronic Assessment and plan: Denied history of withdrawal and trend labs with better diet. Stated that she will not drink anymore today as she will need to go to a senior living after been told to clear apartment d/t smoking by 01/25 Neurontin 300 mg PO BID changed to Neurotin to 100 mg in AM and 200 mg in HS d/t Child-Rhodes class B and variation in LFT's AST 30, ALT 36, ALK phos 174 now 192 ; might decrease craving for ETOH- CMP in AM (3) Chronic hyponatremia: Status: Chronic Assessment and plan: Patient chronically has hyponatremia initial Na at 129 up to 131 s/p IV NS Now Na 127 -asymtomatic NS at 100 cc/hr CMP in AM No further Alcohol intake is recommended as it would most likely improve the chronic electrolyte imbalances. (4) Hypoglycemia: Status: Chronic Assessment and plan: Now glucose 89 fasting Most likely d/t ETOH usage and chronic poor nutritional status Continue to monitor hypoglycemia. Continue to encouraged regular diet CMP in AM (5) COPD (chronic obstructive pulmonary disease): Status: Chronic Assessment and plan: Continue nicotine replacement therapy On maintenance therapy with inhalers and as needed HFA therapy. Qualifiers: COPD type: emphysema Emphysema type: other Qualified Code(s): J43.8 - Other emphysema (6) Hypokalemia: Status: Acute Assessment and plan: K4.5, resolved K 5.4 today see point below CMP in AM (7) Hyperkalemia: Assessment and plan: Stopped Oral potassium replacement CMP in AM (8) Hypoproteinemia: Status: Acute Assessment and plan: Most likely d/t chronic poor nutritional status Nutrition consult Oral protein TID (9) Hypomagnesemia: Status: Acute Assessment and plan: Mg 1.3 on admission Hx of chronic hypomagnesemia most likely d/t chronic ETOH abuse Hx Magnesium 1.7 supplementation ordered magnesium in AM (10) Traumatic ecchymosis of left hip: Status: Acute Assessment and plan: Patient reports fall on right side, denies fall on left hip- bruising noted and reported by RN on 12/30 12/30-External - internal rotation w left hip completed with minimal discomfort, bruising to left hip but no XR-imaging needed then no further c/o of hip pain (11) Tobacco use disorder: Status: Chronic Assessment and plan: Nicotine gum and transdermal patch PRN (12) Insomnia: Status: Acute Assessment and plan: melatonin at HS (13) PVD (peripheral vascular disease): Status: Chronic Assessment and plan: Reporting not taking home meds for over a month and feeling better History of PVD might impede wound healing in her lower extremities. Might need f/u with vascular medicine s/p discussion with outpatient provider Bilat pedal pulses positive-weak with doppler (14) Discharge planning issues: Status: Acute Assessment and plan: As previously mentioned , SNF is recommended but the patient is only considering [facility] as per discussion with CM The patient reported eviction from apartment d/t rule breaking re:no smoking with 01/25 deadline to remove her belongings Discussed with Dr. Downey Subjective Subjective Patient reports: feels better (Sleeping well), still having pain, tolerating liquids well, tolerating a regular diet, voiding w/o difficulty, no bowel movement (last on 01/01/2024) and afebrile; denies diarrhea, nausea, vomiting or shortness of breath Exam Narrative Exam Narrative: Constitutional The patient agreeable and cooperative, c/o of leg pain ongoing Neuro:alert and oriented X 4. No neurological focal deficit Resp: Unlabored breathing, clear lung bilaterally with diminished bases Cardio: regular rhythm, S1, S2, no murmur, weak pedal pulses with doppler, R weaker then left, cap refill R toes > 3 sec GI: Abdomen is not distended, soft and non tender, bowel sounds are present Back/spine/Pelvis:normal alignment Extremities: able to move LE's Psych: RASS 0, congruent mood and normal -sad affect. Objective Last Vital Signs Temp 36.5 C 01/01/24 23:22 Pulse 88 01/01/24 23:30 Resp 16 01/01/24 23:22 BP 101/67 01/01/24 23:22 Pulse Ox 96 01/01/24 23:30 Laboratory Results - last 24 hr 01/01/24 01/02/24 07:00 06:24 WBC 5.54 RBC 2.98 L Hgb 10.4 L Hct 30.8 L MCV 103 H MCH 34.9 H MCHC 33.8 RDW 18.0 H Plt Count 242 MPV 12.2 H Immature Gran % 0.5 Neutrophils % 67.7 Lymphocytes % 19.7 Monocytes % 6.5 Eosinophils % 4.9 Basophils % 0.7 Nucleated RBC % 0.0 Absolute Neutrophils 3.75 Absolute Lymphocytes 1.09 L Absolute Monocytes 0.36 Absolute Eosinophils 0.27 Absolute Basophils 0.04 Sodium 125 L Potassium 5.4 H Chloride 100 Carbon Dioxide 17.7 L Anion Gap 7.3 BUN 4 L Creatinine 0.2 L Est GFR (CKD-EPI 2020) 132.17 Glucose 64 L Calcium 7.3 L Total Bilirubin 0.51 AST 40 H ALT 36 Alkaline Phosphatase 192 H Total Protein 4.4 L Albumin 0.9 L Urine Color Yellow Urine Clarity Clear Urine pH 5.5 Ur Specific [place] 1.025 Urine Protein Negative Urine Ketones 15 H Urine Blood Negative Urine Nitrite Negative Urine Bilirubin Negative Urine Urobilinogen 0.2 Ur Leukocyte Esterase Small H Urine RBC 0-2 Urine WBC 5-10 Ur Epithelial Cells Few Urine Crystals Negative Urine Bacteria Few Urine Casts Urine Mucus Moderate Ur Culture Indicated? No Urine Glucose Negative PAWSS Have you Been Recently Intoxicated or Drunk Within the Last 30 days?: Yes Have you Ever Experienced Previous Episodes of Alcohol Withdrawal?: No Have you ever Experienced Withdrawal Seizures?: No Have you ever Experienced Delirium Tremens(DT)s?: No Have you ever undergone Alcohol Rehabilitation Treatment (i.e, inpt ot outpatient treatment programs)?: No Have you ever Experienced Blackouts?: Yes Have you ever Combined Alcohol with other Downers within the last 90 days?: No Have you ever Combined Alcohol with any other Substance of Abuse during the last 90 days?: Yes Positive Blood Alcohol level on Presentation? [PCS.BAL]: Yes Evidence of Increased Autonomic Activity (i.e. HR>120, tremor, sweating, agitation, nausea)?: Yes Result: 6 Time Spent with Patient Time Spent with Patient: >50 minutes Time was spent: preparing to see the patient(eg.review tests), obtaining and/or reviewing separately otained hiistory, ordering medications,tests, procedures, referring, communicating with other health landcare officer, indepentently interpreting results, counseling the patient and care coordination
[2024-01-02 07:42] VITALS: BP 122/75; PULSE 87; RESP 18; TEMP 36.6; O2SAT 98
[2024-01-02 07:44] LABS: Anion Gap 7.2 mmol/L (3-11); BUN 3 mg/dL (7-18); CO2 20.8 mmol/L (21.0-32.0); CREATININE 0.7 mg/dL (0.55-1.02); Calcium 7.5 mg/dL (8.5-10.1); Chloride 99 mmol/L (98-107); Estimated GFR 97.72 (mL/min/1.73m2); Glucose 71 mg/dL (74-106); Potassium 5.3 mmol/L (3.5-5.1); Sodium 127 mmol/L (136-145)
[2024-01-02 07:45] LABS: Magnesium 1.7 mg/dL (1.8-2.4)
[2024-01-02] MEDS: Thiamine 100 MG TAB 250 MG PO (08:33)
[2024-01-02] MEDS: Omeprazole 20 MG CAPCR PO (08:33)
[2024-01-02] MEDS: Gabapentin 300 MG CAP PO (08:33)
[2024-01-02] MEDS: Enoxaparin 40 MG/0.4 ML SYR SC (08:33)
[2024-01-02] MEDS: Multivitamin TAB 1 TAB PO (08:34)
[2024-01-02] MEDS: Tiotropium/Olodaterol 10 PUFF INHALER 2 PUFF IH (08:36)
[2024-01-02] MEDS: MAGNESIUM SULFATE 2 GM/50 ML BAG IVINF (10:11)
[2024-01-02 11:06] VITALS: BP 133/74; PULSE 96; RESP 18; TEMP 36.4; O2SAT 96
--- NOTE | 2024-01-02 12:07 | PT.INTREAT ---
PT Notes Visit Reasons: Cellulitis Date: 01/02/2024 PRECAUTIONS: Fall, Standard, Activities as tolerated SUBJECTIVE: PT in bed when approached for therapy this morning, pleasant and agreeable to participating in PT, OBJECTIVE: ?Resting in bed. Erythema and wounds to B LE noted ? PAIN: Pt reports pain is ok when not doing anything, RLE is very tender to palpation ? ? ? BED MOBILITY/TRANSFERS? Supine-sit: min A ? Sit-supine: min A ? Sit-stand: min A ? Stand-sit: min A ? ASSESSMENT:? Pt requiring time to allow for movement that is manageable to prevent pain, pt able to sit on the EOB fothe entire duration of session, pt able to stand 30secs on the first attempt and 1min on the second attempt, pt situated in bed post therapy session for comfort, alignment and safety. Plan: progression toward baseline level of function. TREATMENT CODE/TIME: [id number] 25mins (11:40-12:05pm)
[2024-01-02] MEDS: Protein Nutritional Supplement 16 GM 1 OUNCE PACKET PO ×2 (13:27→20:35)
[2024-01-02 15:10] VITALS: BP 119/75; PULSE 101; RESP 18; TEMP 36.9; O2SAT 91
[2024-01-02] MEDS: Collagenase 30 GM TUBE TP (15:55)
[2024-01-02] MEDS: Normal Saline 1,000 ML 100 ML IV (15:55)
[2024-01-02] MEDS: levoFLOXacin 750 MG/150 ML BAG 100 MG IVPB (15:56)
[2024-01-02] MEDS: Nicotine 2 MG LOZG SUC (16:22)
[2024-01-02] MEDS: Prochlorperazine 10 MG/2 ML VIAL 5 MG IVP (17:56)
[2024-01-02 19:35] VITALS: BP 106/67; PULSE 100; RESP 18; TEMP 36.2; O2SAT 92
[2024-01-02] MEDS: Melatonin 3 MG TAB PO (20:33)
[2024-01-02 23:35] VITALS: BP 96/78; PULSE 104; RESP 18; TEMP 36; O2SAT 95
--- NOTE | 2024-01-03 | DI.MRI_ITS ---
Exam(s) MR LOWER EXTREMITY LT WO/W EXAM: MR LOWER EXTREMITY LT WO/W CLINICAL HISTORY: Deep wounds ? Osteo TECHNIQUE: Multiplanar multisequence MRI was performed on 1.5 Yudith unit with both pre and post cont rast infused sequences IV contrast infused was 9 mL Dotarem COMPARISON: MR MR LOWER EXTREMITY RT WO/W from 01/03/2024 FINDINGS: MARROW:No evidence of fracture or bone contusion. No significant osseous lesions. No bone infarcts evident. There is no confluent hypointense signal on non fat sat T1 images to suggest osteomyelitis and there is also no abnormal marrow edema evident on STIR sequences. There is no abnormal intraosse ous enhancement following contrast injection. MUSCLES: There is no evidence of abnormal signal nor mass in the visualized muscles. There is some f atty atrophy of the musculature of the calf noted, similar to the opposite side. EXTRAMUSCULAR SOFT TISSUES: There is subcutaneous edema over both sides of the calf, most prominent a nteriorly and medially. OTHER: None. IMPRESSION: 1. Subcutaneous edema, similar to the opposite side. 2. No evidence of osteomyelitis, as per request. 3. Some muscular atrophy evident, similar to the opposite side. DATA REPOSITORY:
--- NOTE | 2024-01-03 | DI.MRI_ITS ---
Exam(s) MR LOWER EXTREMITY RT WO/W EXAM: MR LOWER EXTREMITY RT WO/W CLINICAL HISTORY: Deep wounds ? osteo TECHNIQUE: Multiplanar multisequence MRI was performed on 1.5 mulu unit. Both pre and post contrast infused sequences were performed. Contrast injected was 9 mL Dotarem. Field of view was the lower 2/3 of the tibia-fibula and ankle. COMPARISON: MR MRI - R LOWER EXT WO/W from 11/23/2016 CR XR TIB/FIB RT from 12/02/2023 FINDINGS: MARROW:There is no evidence of fracture nor bone contusion no stress fractures. No significant osseo us lesions. There is no confluent hypointense signal on non fat sat T1 images to suggest osteomyelitis. There is no significant marrow edema on STIR images. There is no significant marrow enhancement following co ntrast injection. MUSCLES: No evidence of abscess. EXTRAMUSCULAR SOFT TISSUES: There is subcutaneous edema-fluid on both sides of the calf, most promine nt anterolaterally, anterior to the extensor tendons. There is fatty musculature change in the muscl es of the calf most prominent in the extensor group consistent with atrophy. There is no obvious ten osynovitis. IMPRESSION: 1. Soft tissue findings as above. No evidence of intramuscular abscess. 2. No evidence of osteomyelitis. 3. See separate MRI report for opposite-left leg. DATA REPOSITORY:
[2024-01-03] MEDS: Normal Saline 1,000 ML 100 ML IV ×3 (02:41→21:28)
[2024-01-03 03:35] VITALS: BP 117/85; PULSE 95; RESP 18; TEMP 36.3; O2SAT 98
[2024-01-03] MEDS: oxyCODONE 5 MG TAB PO (05:36)
[2024-01-03] MEDS: Ketorolac 15 MG/ML VIAL IVP ×2 (05:36→11:23)
[2024-01-03] MEDS: Collagenase 30 GM TUBE TP (05:57)
[2024-01-03 07:11] LABS: Abs Immature Grans 0.03 10^3/uL (0.0-0.06); Absolute Basophil Count 0.03 10^3/uL (0.0-0.2); Absolute Eosinophil Count 0.18 10^3/uL (0.0-0.7); Absolute Lymphocyte Count 1.02 10^3/uL (1.2-3.4); Absolute Monocyte Count 0.31 10^3/uL (0.1-0.8); Absolute Neutrophil Count 4.08 10^3/uL (1.2-6.7); Basophils % 0.5 %; Eosinophils % 3.2 %; HCT 32.7 % (36.0-46.0); HGB 10.6 g/dL (11.2-15.7); Immature Grans % 0.5 %; Lymphocytes % 18.1 %; MCH 33.7 pg (27.0-33.0); MCHC 32.4 % (32.0-36.0); MCV 104 fL (80-95); Monocytes % 5.5 %; Neutrophils % 72.2 %; Platelet Count 275 10^3/uL (130-400); RBC 3.15 10^6/uL (3.93-5.22); RDW 18.1 % (11.7-14.6); WBC 5.65 10^3/uL (4.4-10.8)
[2024-01-03 07:28] LABS: ALT 30 U/L (14-59); AST 36 U/L (15-37); Albumin 1.3 g/dL (3.4-5.0); Alkaline Phosphatase 209 U/L (46-116); Anion Gap 8.1 mmol/L (3-11); BUN 4 mg/dL (7-18); Bilirubin, Total 0.55 mg/dL (0.2-1.0); CO2 19.9 mmol/L (21.0-32.0); CREATININE 0.7 mg/dL (0.55-1.02); Calcium 7.9 mg/dL (8.5-10.1); Chloride 100 mmol/L (98-107); Estimated GFR 97.72 (mL/min/1.73m2); Glucose 88 mg/dL (74-106); Potassium 4.6 mmol/L (3.5-5.1); Sodium 128 mmol/L (136-145); Total Protein 4.8 g/dL (6.4-8.2)
[2024-01-03 07:31] VITALS: BP 120/69; PULSE 88; RESP 15; TEMP 36.1; O2SAT 97
[2024-01-03] MEDS: Tiotropium/Olodaterol 10 PUFF INHALER 2 PUFF IH (07:56)
[2024-01-03] MEDS: Thiamine 100 MG TAB 250 MG PO (08:39)
[2024-01-03] MEDS: Multivitamin TAB 1 TAB PO (08:40)
[2024-01-03] MEDS: Gabapentin 100 MG CAP PO (08:40)
[2024-01-03] MEDS: Omeprazole 20 MG CAPCR PO (08:40)
[2024-01-03] MEDS: Protein Nutritional Supplement 16 GM 1 OUNCE PACKET PO ×3 (08:41→21:29)
[2024-01-03] MEDS: Normal Saline Flush 10 ML SYR IVP ×4 (08:42→17:22)
[2024-01-03] MEDS: Acetaminophen 325 MG TAB PO (08:43)
[2024-01-03] MEDS: Nicotine 2 MG LOZG SUC (08:43)
--- NOTE | 2024-01-03 10:06 | CMPROGNOTE_ITS ---
Date of service: 01/03/24 Time of Service: 10:06 Care Management Progress Note Progress Note Text Progress Note Text: Bonifacio was sitting up in her bed when CM met with her. She stated that she is feeling better today, although she continues to have a lot of pain in her legs. Per PT, Bonifacio has been able to stand, but continues to benefit from skilled services, and their recommendation is for her to go to SNF, which she is agreeable to. CM followed up on the referral to the [facility] this morning, and per admissions, she has a balance of about $3800 from a previous rehab stay, and she will need to pay that amount before being accepted for short term rehab. Admissions also stated that she will have a patient share of $175/day. 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 Bonifacio stated that she does not have the funds to pay for the back balance at this time. She agreed to CM sending referrals to additional SNFs; CM discussed the patient share/balance due potentially being a barrier to admission to other facilities as well. 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 Bonifacio has a wheelchair which she uses at baseline for mobility. CM will continue to follow. Discharge Potential Discharge Needs: Other (possible SNF) Anticipated Barriers to Discharge: None Identified Patient/Family Education Needs: Review discharge instructions, discuss [facility] Me Three Transportation: RCT Plan: Anticipate Bonifacio will transfer to SNF for short term rehab vs return home with a resumption of HH services. She will transport via RCT, coordinated by CM. She will follow up with her PCP and discharge plan of care. CM will continue to follow. SDOH(Care Management) Screening Will the Patient Participate in the Screening?: Yes Do you worry about having a steady place to live?: yes Problems where you live: no known problems In the past 12 months, have you had to go without electric, gas, oil or water in your home?: no Have you or anyone in your house had to go without enough food to eat?: yes Has lack of transportation kept you from medical appointments or from doing things needed for daily living?: no Has anyone in your support network made you feel unsafe for any reason?: no Health Related Social Needs Health related social needs: housing instability, housed, with risk of homelessness(Z59.811) and food insecurity(Z59.41) Health related social needs details: Pt states that she is being evicted from her house and is no longer able to care for self at home.
[2024-01-03] MEDS: Enoxaparin 40 MG/0.4 ML SYR SC (10:24)
--- NOTE | 2024-01-03 11:07 | PT.INTREAT ---
PT Notes Visit Reasons: Cellulitis Physical Therapy Inpatient Treatment Note Date: 01/03/2024 PRECAUTIONS: Fall. Standard. Activity as tolerated SUBJECTIVE: Needed encouragement ot participate in PT. Nurse Jasmyn and preceptee RN came in to give IV Tramadol which the patient appreciated. Anxipus about standing up but was happy that she did for this session. Patient reported 15/10 pain when moved but was willing to work through pain with PT for today's standing activity. OBJECTIVE: ? Resting in bed. Erythema and wounds to B LE noted ? PAIN: As above ? ? ? BED MOBILITY/TRANSFERS: Moderate cueing provided for use of B hands as needed for support, movement sequence, AD management, and posture to reduce fall risk and minimize pain report ? Supine-sit: minimal assist to B LE? Sit-supine: minimal assist to B LE? Sit-stand: moderate assist ? Stand-sit: minimla assist? GAIT: Refused to take a step for this session. Stated that she is willing to try out tomorrow with pain medication.? ASSESSMENT:? Slowly making gains with pain beginning to be under control. Ensure that patient is premedicated for sessions. Anxious and fearful of falling. Plan: Regain PLOF of using SPC for all mobility ADL performance as her wound heals. TREATMENT CODE/TIME: [id number] x 35 mins for 2 units (11:07-11:42 am)
[2024-01-03 11:17] VITALS: BP 139/92; PULSE 99; RESP 16; TEMP 36.3; O2SAT 90
--- NOTE | 2024-01-03 12:51 | W.NUTRFU ---
Date of service: 01/03/24 Time of Service: 12:15 Nutrition Note NOTE: Received nutrition consult regarding: poor nutrition status, ETOH abuse Pt with frequent recent admissions. Her electrolyte imbalances are being treated as well as ordered for liquid collagen protein concentrate TID for low albumin and total protein. She states she just recently consumed the liquid protein pkt and won't be able to drink more than one. She does have interest in ONS (strawberry Boost preferred) and this will be given at 10am and 2pm nourishments. Pt given education on high kcal food choices and high protein diet with recommendations to aim for minimum of 60g per day - reviewed education handout with patient. Pt reports no meat intake usually due to chewing difficulties (has upper plate that seems ill-fitting). She further comments that she has continued lack of interest in eating. Most food makes me gag lately. Visited with her at lunch time and she had ordered mashed potatoes and butter with orange juice and was picking around with it mostly. Pt continues to experience weight loss with probable influence of etoh use. Food doesn't taste good to her and she relates this, at least partially, to her chronic smoking. It appears she is going through housing issues with an eviction from her apt expected later this month. Discharge plan involves short term SNF for rehab and this might be a better environment for getting consistent meals and improving her nutrition and prevention of etoh and tobacco abuse. In addition to the liquid protein she is ordered for and the ONS nourishments BID, I would also recommend: -10,000IU cholecalciferol per day during this admission -10,000IU vitamin A per day during this admission -500mg Vitamin C BID this admission (if diarrhea becomes a concern, 500mg once per day) -220mg Zinc Sulfate daily this admission -Initiate supplemental folate (lab 5.8 on 12/02/23) Will monitor po intake, toleration/acceptance of liquid protein and BID ONS nourishments, weight and nutrition-related labs. Time Spent in Nutritional Counseling and Treatment: 15 minutes
--- NOTE | 2024-01-03 13:24 | W.PM.PROGNOT ---
Date of Service Date of service: 01/03/24 Time of Service: Assessment and Plan Assessment and plan (1) Cellulitis: Start date: 12/30/23 Status: Acute Assessment and plan: Continue oral Levaquin 750 mg with telemetry QT is 410 Discontinue Miconazole topical application to legs (per wound care nurse it cancels out the santel) Dressings per recommendation of wound care nurse Trend labs MRI bilat lower extr to check for osteo Qualifiers: Laterality: unspecified laterality Site of cellulitis: extremity Site of cellulitis of extremity: lower extremity Qualified Code(s): L03.119 - Cellulitis of unspecified part of limb (2) Alcohol abuse: Status: Chronic Assessment and plan: Denied history of withdrawal and trend labs with better diet. old to clear apartment d/t smoking by 01/25 (3) Chronic hyponatremia: Status: Chronic Assessment and plan: Na 128 -asymtomatic Continue NS at 100 cc/hr (4) Hypoglycemia: Status: Resolved Assessment and plan: Trend (5) COPD (chronic obstructive pulmonary disease): Status: Chronic Assessment and plan: Continue nicotine replacement therapy On maintenance therapy with inhalers and as needed HFA therapy. Qualifiers: COPD type: emphysema Emphysema type: other Qualified Code(s): J43.8 - Other emphysema (6) Hypokalemia: Status: Resolved Assessment and plan: Trend (7) Hypoproteinemia: Status: Acute Assessment and plan: Most likely d/t chronic poor nutritional status Nutrition consult - see note Oral protein TID (8) Hypomagnesemia: Status: Acute Assessment and plan: Trend (9) Traumatic ecchymosis of left hip: Status: Resolved Assessment and plan: No hip pain (10) Tobacco use disorder: Status: Chronic Assessment and plan: Nicotine gum or transdermal patch PRN (11) Insomnia: Status: Acute Assessment and plan: melatonin at HS (12) PVD (peripheral vascular disease): Status: Chronic Assessment and plan: Recommend f/u with vascular medicine Bilat pedal pulses positive-weak with doppler (13) Discharge planning issues: Status: Acute Assessment and plan: As previously mentioned , SNF is recommended but the patient is only considering the [facility] as per discussion with CM, however is not accepted at the [facility] The patient reported eviction from apartment d/t rule breaking re:no smoking with 9/26 deadline to remove her belongings Discussed with Dr. Haas Subjective Subjective Interval history since last seen: Awake, alert, semi fowlers in bed. Patient reports significant pain with dressing changes. Exam Const General: cooperative, comfortable and no acute distress Orientation: alert, awake and oriented x3 HENMT Head: normal to inspection, normocephalic and atraumatic Mouth: moist mucous membranes abnormal (Slightly dry) Eyes General: appearance normal, both eyes and all related structures Alignment and Position: alignment normal Conjunctivae: conjunctivae normal Sclera: sclerae normal EOM: EOM intact bilaterally Neck Neck: normal visual inspection and full ROM Resp Effort & Inspection: normal respiratory effort and able to speak in complete sentences Auscultation: clear to auscultation bilaterally Cardio Rate: regular rate Rhythm: regular rhythm GI Palpation: soft, not firm, no guarding and nontender Auscultation: normal bowel sounds Back/Spine/Pelvis Back: No back tenderness Skin Lesions: lesion noted (bilateral lower extremities, unstageable, see pictures and wound care consu) Rashes: rashes noted (left lower extremity, erythema) Neuro General: patient alert, patient awake, patient oriented x3 and moves all extremities Extrem General: normal to inspection, full ROM and edema (left greater than right) Psych Appearance: grossly normal Mental Status: mental status grossly normal Speech and Movement: speech and movement normal Mood: congruent mood Affect: normal affect Objective Last Vital Signs Temp 36.3 C L 01/03/24 11:17 Pulse 99 H 01/03/24 11:17 Resp 16 01/03/24 11:17 BP 139/92 H 01/03/24 11:17 Pulse Ox 90 L 01/03/24 11:17 Laboratory Results - last 24 hr 01/03/24 06:10 WBC 5.65 RBC 3.15 L Hgb 10.6 L Hct 32.7 L MCV 104 H MCH 33.7 H MCHC 32.4 RDW 18.1 H Plt Count 275 MPV 12.0 H Immature Gran % 0.5 Neutrophils % 72.2 Lymphocytes % 18.1 Monocytes % 5.5 Eosinophils % 3.2 Basophils % 0.5 Nucleated RBC % 0.0 Absolute Neutrophils 4.08 Absolute Lymphocytes 1.02 L Absolute Monocytes 0.31 Absolute Eosinophils 0.18 Absolute Basophils 0.03 Sodium 128 L Potassium 4.6 Chloride 100 Carbon Dioxide 19.9 L Anion Gap 8.1 BUN 4 L Creatinine 0.7 Est GFR (CKD-EPI 2020) 97.72 Glucose 88 Calcium 7.9 L Total Bilirubin 0.55 AST 36 ALT 30 Alkaline Phosphatase 209 H Total Protein 4.8 L Albumin 1.3 L PAWSS Have you Been Recently Intoxicated or Drunk Within the Last 30 days?: Yes Have you Ever Experienced Previous Episodes of Alcohol Withdrawal?: No Have you ever Experienced Withdrawal Seizures?: No Have you ever Experienced Delirium Tremens(DT)s?: No Have you ever undergone Alcohol Rehabilitation Treatment (i.e, inpt ot outpatient treatment programs)?: No Have you ever Experienced Blackouts?: Yes Have you ever Combined Alcohol with other Downers within the last 90 days?: No Have you ever Combined Alcohol with any other Substance of Abuse during the last 90 days?: Yes Positive Blood Alcohol level on Presentation? [PCS.BAL]: Yes Evidence of Increased Autonomic Activity (i.e. HR>120, tremor, sweating, agitation, nausea)?: Yes Result: 6 Time Spent with Patient Time Spent with Patient: 25-34 minutes Time was spent: preparing to see the patient(eg.review tests), ordering medications,tests, procedures, referring, communicating with other health home health care coordinator, indepentently interpreting results, counseling the patient and care coordination
[2024-01-03] MEDS: HYDROmorphone 2 MG/ML SYR 1 MG IVP (13:31)
[2024-01-03] MEDS: LORazepam 2 MG/ML VIAL 1 MG IVP (15:27)
[2024-01-03] MEDS: Gadoterate meglumine 20 ML SYRINGE IVP (15:49)
[2024-01-03] MEDS: levoFLOXacin 750 MG/150 ML BAG 100 MG IVPB (17:21)
--- NOTE | 2024-01-03 18:04 | WOUNDCONS_ITS ---
Date of service: 01/03/24 Time of Service: 13:30 Wound Initial Evaluation Narrative Narrative: Pt is a 63 year old woman who was admitted for worsening cellulitis. Pt was in recently and seen by myself for wound consult. She was to have an mri done on that admission but left AMA prior to it being done. An mri was done today which shows no evidence of osteomyelitis in either leg. Pt does have a history of GERD, GI bleeding, COPG, Pulmonary nodule, heavy alcohol abuse, cachexia, PE, CHF, PVD, ascites, chronic liver disease. Labs on this admission WBC 5.65, H&H 10.6, 32.7, NA 128, K+ 4.6, Alk Phos 209, Albumin 1.3. Pt has been seen by nutrition and is taking protein supplemental shakes. Pt is on levofloxacin. Original mechanism of injury was from a TV that fell onto her legs. Extended time for healing related to history of PVD, ETOH use, and self neglect\ non- adherence to medical treatment plan. Body Four View: 2 1. Anterior right tib fib 2. Right lateral leg 3. Right posterior tib fib 4. Sacrum (coccyx, gluteal cleft) 5. Left medial malleolus 6. Left anterior tib fib 7. Right medial malleolus 8. Left foot 9. Left heel 10. Right heel Wound Right Anterior Tib/Fib(lower leg): Wound Type: Laceration and Partial Thickness Wound General Appearance: Bleeding (Bleeding after debridement), Unapproximated and Other (yellow slough covering the wound prior to debridement) Wound Bed Greatest Portion: Red (Granulation) (50%) and Shiny Wound Bed Lesser Portion: Yellow (Slough) (50%) Wound Surrounding Tissue Appearance: Dark Red, Edematous and Edges Rolled Percent of Wound Bed Granulated/Red: 50 Percent of Wound Bed Slough/Yellow: 50 Wound Length: 3.19 in Wound Width: 0.39 in Wound Depth: 0.12 in Wound Drainage Amount: Minimal Wound Drainage Odor: None/Absent Wound Drainage Description: Bloody, Brown and Green Wound Topical Solution/Irrigant: Saline Irrigant and Enzymatic Gel Wound Debridement Method: Conservative Sharp (currette) Wound Debridement Result: Healthy Tissue Revealed Wound Debridement Amount of Tissue Removed: Moderate Additional Other Comments: and devitalized yellow slough removed. Right Lateral Tib/Fib(lower leg): Wound Type: Abrasion, Statis Ulcer and Partial Thickness Wound General Appearance: Unapproximated and Healing Well Wound Bed Greatest Portion: Red (Granulation) Wound Bed Lesser Portion: Yellow (Slough) Wound Surrounding Tissue Appearance: Purple (eccymosis) Percent of Wound Bed Granulated/Red: 50 Percent of Wound Bed Slough/Yellow: 50 Wound Length: 2.28 in Wound Width: 0.71 in Wound Depth: 0.08 in Wound Drainage Amount: Minimal Wound Drainage Odor: None/Absent Wound Drainage Description: Bloody, Brown and Green Wound Topical Solution/Irrigant: Saline Irrigant and Enzymatic Gel Wound Debridement Method: Conservative Sharp (currette) Wound Debridement Result: Healthy Tissue Revealed Wound Debridement Amount of Tissue Removed: Minimal Additional Other Comments: Removed only and devitalized tissue. Right Posterior Tib/Fib(lower leg): Wound Type: Puncture, Statis Ulcer and Partial Thickness Wound General Appearance: Draining, Bleeding and Unapproximated Wound Bed Greatest Portion: Yellow (Slough) Wound Bed Lesser Portion: Red (Granulation) and Black (Eschar) Wound Surrounding Tissue Appearance: Bright Red Percent of Wound Bed Granulated/Red: 10 Percent of Wound Bed Slough/Yellow: 85 Percent of Wound Bed Eschar/Black: 5 Wound Length: 2.36 in Wound Width: 1.57 in Wound Depth: 0.12 in Wound Drainage Amount: Minimal Wound Drainage Odor: None/Absent Wound Drainage Description: Bloody, Brown and Green Wound Topical Solution/Irrigant: Saline Irrigant and Enzymatic Gel Wound Debridement Method: Conservative Sharp (currette) Wound Debridement Result: Yellow Sloughing Remains Wound Debridement Amount of Tissue Removed: Minimal Additional Other Comments: Removed only and devitalized tissue. Coccyx, gluteal cleft: Wound Type: Pressure Ulcer Pressure Ulcer Stage: II Wound General Appearance: Unapproximated Wound Bed Greatest Portion: Pale [place] Wound Bed Lesser Portion: Yellow (Slough) Wound Surrounding Tissue Appearance: [place] Percent of Wound Bed Granulated/Red: 40 Percent of Wound Bed Slough/Yellow: 60 Wound Length: 2.95 in Wound Width: 0.39 in Wound Depth: 0.04 in Wound Drainage Amount: Minimal Wound Drainage Odor: None/Absent Wound Drainage Description: Bloody Wound Topical Solution/Irrigant: Saline Irrigant Wound Debridement Method: Gauze Wound Debridement Result: Yellow Sloughing Remains Wound Debridement Amount of Tissue Removed: None Additional Other Comments: Dry flakey surrounding tissue. Left medial malleolus: Wound Type: Pressure Ulcer Pressure Ulcer Stage: Eschar/Unstageable Wound General Appearance: Open to air and Blackened Wound Bed Greatest Portion: Black (Eschar) Wound Surrounding Tissue Appearance: Bright Red Percent of Wound Bed Eschar/Black: 100 Wound Length: 0.39 in Wound Width: 0.31 in Wound Drainage Amount: None Wound Drainage Odor: None/Absent Wound Topical Solution/Irrigant: Saline Irrigant and Enzymatic Gel Wound Debridement Method: Gauze Wound Debridement Result: Necrotic Remains Wound Debridement Amount of Tissue Removed: None Left Anterior Tib/Fib(lower leg): Wound Type: Abrasion and Statis Ulcer Wound General Appearance: Draining and Unapproximated Wound Bed Greatest Portion: Yellow (Slough) Wound Bed Lesser Portion: Red (Granulation) Wound Surrounding Tissue Appearance: Purple and Edges Rolled Percent of Wound Bed Granulated/Red: 10 Percent of Wound Bed Slough/Yellow: 90 Wound Length: 2.76 in Wound Width: 1.57 in Wound Depth: 0.12 in Wound Drainage Odor: None/Absent Wound Drainage Description: Bloody, Brown and Green Wound Topical Solution/Irrigant: Saline Irrigant and Enzymatic Gel Wound Debridement Method: Conservative Sharp (currette) Wound Debridement Result: Yellow Sloughing Remains Wound Debridement Amount of Tissue Removed: Minimal Additional Other Comments: Removed only and devitalized tissue. Right medial malleolus: Wound Type: Pressure Ulcer Pressure Ulcer Stage: Eschar/Unstageable Wound General Appearance: Open to air and Necrotic Wound Bed Greatest Portion: Black (Eschar) Wound Surrounding Tissue Appearance: Bright Red Percent of Wound Bed Eschar/Black: 100 Wound Length: 0.31 in Wound Width: 0.31 in Wound Drainage Amount: None Wound Drainage Odor: None/Absent Wound Topical Solution/Irrigant: Saline Irrigant and Enzymatic Gel Wound Debridement Method: Gauze Wound Debridement Result: Necrotic Remains Wound Debridement Amount of Tissue Removed: None Circulation, Sensation, Motion Edema Degree: 1+ (1+ In lower extremities. Hips 4+ edema, abd with large amount of ascites. ) Pain Pain Level: 10 (Prior to wound assessment and being medicated.) Pain Scale Used: Adult Pain Duration/Frequency: Constant Additional Other Comments: Pt received good relief with pain medication, level down to a 4 and tolerable. Wound Summary Wound Summary: Wounds look improved from last assessment from 12/23/23. Much less eschar noted. States was being seen by home health while at home. Feet remain dusky with boggy heels but are warm to touch. Of note, pt has since been evicted from her home and is planning on placement in a nursing facility. Photo Photo: Right heel Treatment/Dressing Change Topicals/Ointments: Santyl and Zincoxide (Thaxton tube) Cleanse With: Saline Dressing Types: Kerlix (Gauze Roll), Mepilex w/Border (sacral, small) and Other (Maxabsorb II) Nutrition Education Reviewed Nutrition Education: Yes Recomendation Recomendation:: Gluteal cleft, coccyx 1. Wash area with soap and water or saline. Pat dry. 2. Apply Thaxton tube of zinc oxide. 3. Apply Skin prep to ivan-wound skin. 4. Apply small sacral Mepilex. 5. Change every 3-5 days and prn. Bilateral leg wounds: 1. Pre medicate patient. 2. Apply viscious of lidocaine to wounds and allow to dwell for 10-15 minutes. 3. Cleanse areas with sterile Saline. Wipe dry with gauze. 4. Apply a nickel thin layer of Santyl to all open wounds. 5. Cover with Maxabsorb II Alginate dressing. 6. Valders heels with betadine. 7. Wrap with kerlix roll starting at the toes and working up the legs until all areas are covered. 8. Change daily and prn. Keep legs elevated to help decrease edema. Foam booties at all times except to ambulate or during care. Physcian/Nurse Practioner Notified: Yes (Janeth Pierce) Referrals: Other (Vascular surgery referral may be beneficial.) Treatment Time Time Total Time Spent with Patient: 80 minutes Patient Will be Seen Weekly Treatment: daily For: For:: 2 weeks
--- NOTE | 2024-01-03 19:13 | NUR.NOTE ---
Nursing Note:Bladder scanned for 750mL at 1830. Straight cathed per orders and 750mL out of clear yellow urine. Post void residual 140mL.
[2024-01-03 20:00] VITALS: BP 113/89; PULSE 100; RESP 18; TEMP 36; O2SAT 94
[2024-01-03] MEDS: Gabapentin 100 MG CAP 200 MG PO (20:11)
[2024-01-03] MEDS: Melatonin 3 MG TAB PO (20:11)
[2024-01-03 23:41] VITALS: BP 106/79; PULSE 93; RESP 19; TEMP 36; O2SAT 92
[2024-01-04] MEDS: oxyCODONE 5 MG TAB PO ×3 (00:52→22:40)
[2024-01-04] MEDS: Acetaminophen 325 MG TAB PO ×3 (01:40→20:48)
[2024-01-04] MEDS: Ketorolac 15 MG/ML VIAL IVP (05:38)
[2024-01-04 06:31] LABS: Abs Immature Grans 0.05 10^3/uL (0.0-0.06); Absolute Basophil Count 0.05 10^3/uL (0.0-0.2); Absolute Eosinophil Count 0.24 10^3/uL (0.0-0.7); Absolute Lymphocyte Count 0.93 10^3/uL (1.2-3.4); Absolute Monocyte Count 0.28 10^3/uL (0.1-0.8); Absolute Neutrophil Count 7.59 10^3/uL (1.2-6.7); Basophils % 0.5 %; Eosinophils % 2.6 %; HGB 10.1 g/dL (11.2-15.7); Immature Grans % 0.5 %; Lymphocytes % 10.2 %; MCH 35.4 pg (27.0-33.0); MCHC 34.8 % (32.0-36.0); MCV 102 fL (80-95); MPV 12.9 fL (8.0-11.0); Monocytes % 3.1 %; Neutrophils % 83.1 %; Platelet Count 294 10^3/uL (130-400); RBC 2.85 10^6/uL (3.93-5.22); RDW 18.1 % (11.7-14.6); RDW-SD 66.2 fL; WBC 9.14 10^3/uL (4.4-10.8)
[2024-01-04 07:31] LABS: Anion Gap 3.3 mmol/L (3-11); BUN 6 mg/dL (7-18); C-Reactive Protein 3.46 mg/dL (<or=0.5); CO2 21.7 mmol/L (21.0-32.0); CREATININE 0.6 mg/dL (0.55-1.02); Calcium 7.8 mg/dL (8.5-10.1); Chloride 102 mmol/L (98-107); Estimated GFR 101.42 (mL/min/1.73m2); Glucose 87 mg/dL (74-106); Magnesium 1.6 mg/dL (1.8-2.4); Potassium 4.9 mmol/L (3.5-5.1); Sodium 127 mmol/L (136-145)
[2024-01-04 07:39] VITALS: BP 119/77; PULSE 102; RESP 18; TEMP 36.6; O2SAT 93
[2024-01-04] MEDS: Tiotropium/Olodaterol 10 PUFF INHALER 2 PUFF IH (07:55)
[2024-01-04] MEDS: Thiamine 100 MG TAB 250 MG PO (08:04)
[2024-01-04] MEDS: Gabapentin 100 MG CAP PO (08:04)
[2024-01-04] MEDS: Protein Nutritional Supplement 16 GM 1 OUNCE PACKET PO ×3 (08:04→20:49)
[2024-01-04] MEDS: Collagenase 30 GM TUBE TP (08:05)
[2024-01-04] MEDS: Omeprazole 20 MG CAPCR PO (08:05)
[2024-01-04] MEDS: Multivitamin TAB 1 TAB PO (08:05)
[2024-01-04] MEDS: Normal Saline Flush 10 ML SYR IVP ×4 (08:05→18:17)
[2024-01-04] MEDS: Normal Saline 1,000 ML 100 ML IV ×2 (08:29→21:12)
--- NOTE | 2024-01-04 09:51 | PGE_ITS ---
Date of Service Date of service: 01/04/24 Time of Service: 09:51 Assessment and Plan Assessment and plan (1) Cellulitis: Start date: 12/30/23 Status: Acute Assessment and plan: Continue oral Levaquin 750 mg with telemetry QT is 463 Dressings per recommendation of wound care nurse Trend labs MRI bilat lower extr no evidence of osteomyelititis Qualifiers: Site of cellulitis: extremity Site of cellulitis of extremity: lower extremity Laterality: unspecified laterality Qualified Code(s): L03.119 - Cellulitis of unspecified part of limb (2) Chronic hyponatremia: Status: Chronic Assessment and plan: Na 127 -asymtomatic Add salt tabs Continue NS at 100 cc/hr (3) Hypoglycemia: Status: Resolved Assessment and plan: Trend 87 (4) COPD (chronic obstructive pulmonary disease): Status: Chronic Assessment and plan: Continue nicotine replacement therapy On maintenance therapy with inhalers and as needed HFA therapy. Qualifiers: COPD type: emphysema Emphysema type: other Qualified Code(s): J43.8 - Other emphysema (5) Hypokalemia: Status: Resolved Assessment and plan: Trend 4.9 (6) Hypoproteinemia: Status: Acute Assessment and plan: Most likely d/t chronic poor nutritional status Nutrition consult - see note Oral protein TID (7) Hypomagnesemia: Status: Acute Assessment and plan: Trend 1.6 - repleted (8) Alcohol abuse: Status: Chronic Assessment and plan: Denied history of withdrawal and trend labs with better diet. Told to clear apartment d/t smoking by 01/25 (9) Traumatic ecchymosis of left hip: Status: Resolved Assessment and plan: No hip pain (10) Tobacco use disorder: Status: Chronic Assessment and plan: Nicotine gum or transdermal patch PRN (11) Insomnia: Status: Acute Assessment and plan: melatonin at HS (12) PVD (peripheral vascular disease): Status: Chronic Assessment and plan: Recommend f/u with vascular medicine Bilat pedal pulses positive-weak with doppler (13) Discharge planning issues: Status: Acute Assessment and plan: As previously mentioned , SNF is recommended but the patient is only considering the [facility] as per discussion with CM, however is not accepted at the [facility] The patient reported eviction from apartment d/t rule breaking re:no smoking with 01/25 deadline to remove her belongings Discussed with Dr. Haas Subjective Subjective Patient reports: no new complaints, feels better, tolerating liquids well, tolerating a regular diet, bowel movement and afebrile; denies diarrhea, nausea, vomiting or shortness of breath Interval history since last seen: Comfortable, sitting in bed, semi fowlers, pleasant, conversant. Exam Const General: cooperative, comfortable and no acute distress Orientation: alert, awake and oriented x3 HENMT Head: normal to inspection, normocephalic and atraumatic Mouth: moist mucous membranes abnormal (Slightly dry) Eyes General: appearance normal, both eyes and all related structures Alignment and Position: alignment normal Conjunctivae: conjunctivae normal Sclera: sclerae normal EOM: EOM intact bilaterally Neck Neck: normal visual inspection and full ROM Resp Effort & Inspection: normal respiratory effort and able to speak in complete sentences Auscultation: clear to auscultation bilaterally Cardio Rate: regular rate Rhythm: regular rhythm GI Palpation: soft, not firm, no guarding and nontender Auscultation: normal bowel sounds Back/Spine/Pelvis Back: No back tenderness Skin Lesions: lesion noted (bilateral lower extremities, unstageable, see pictures and wound care consu) Rashes: rashes noted (left lower extremity, erythema) Neuro General: patient alert, patient awake, patient oriented x3 and moves all extremities Extrem General: normal to inspection, full ROM and edema (left greater than right) Psych Appearance: grossly normal Mental Status: mental status grossly normal Speech and Movement: speech and movement normal Mood: congruent mood Affect: normal affect Objective Last Vital Signs Temp 36.6 C 01/04/24 07:39 Pulse 102 H 01/04/24 07:39 Resp 18 01/04/24 07:39 BP 119/77 01/04/24 07:39 Pulse Ox 93 01/04/24 07:39 Laboratory Results - last 24 hr 01/04/24 01/04/24 06:15 06:55 WBC 9.14 RBC 2.85 L Hgb 10.1 L Hct 29.0 L MCV 102 H MCH 35.4 H MCHC 34.8 D RDW 18.1 H Plt Count 294 MPV 12.9 H Immature Gran % 0.5 Neutrophils % 83.1 Lymphocytes % 10.2 Monocytes % 3.1 Eosinophils % 2.6 Basophils % 0.5 Nucleated RBC % 0.0 Absolute Neutrophils 7.59 H Absolute Lymphocytes 0.93 L Absolute Monocytes 0.28 Absolute Eosinophils 0.24 Absolute Basophils 0.05 Sodium 127 L Potassium 4.9 Chloride 102 Carbon Dioxide 21.7 Anion Gap 3.3 BUN 6 L Creatinine 0.6 Est GFR (CKD-EPI 2020) 101.42 Glucose 87 Calcium 7.8 L Magnesium 1.6 L C-Reactive Protein 3.46 H PAWSS Have you Been Recently Intoxicated or Drunk Within the Last 30 days?: Yes Have you Ever Experienced Previous Episodes of Alcohol Withdrawal?: No Have you ever Experienced Withdrawal Seizures?: No Have you ever Experienced Delirium Tremens(DT)s?: No Have you ever undergone Alcohol Rehabilitation Treatment (i.e, inpt ot outpatient treatment programs)?: No Have you ever Experienced Blackouts?: Yes Have you ever Combined Alcohol with other Downers within the last 90 days?: No Have you ever Combined Alcohol with any other Substance of Abuse during the last 90 days?: Yes Positive Blood Alcohol level on Presentation? [PCS.BAL]: Yes Evidence of Increased Autonomic Activity (i.e. HR>120, tremor, sweating, agitation, nausea)?: Yes Result: 6 Time Spent with Patient Time Spent with Patient: 25-34 minutes Time was spent: preparing to see the patient(eg.review tests), ordering medications,tests, procedures, referring, communicating with other health attending ambulatory care, indepentently interpreting results, counseling the patient and care coordination
[2024-01-04] MEDS: MAGNESIUM SULFATE 2 GM/50 ML BAG IVINF (10:06)
[2024-01-04] MEDS: Enoxaparin 40 MG/0.4 ML SYR SC (10:06)
[2024-01-04 11:58] VITALS: BP 117/89; PULSE 101; RESP 18; TEMP 36.3; O2SAT 97
--- NOTE | 2024-01-04 13:57 | NT_ITS ---
Occupational Therapy Notes 01/04/24 OT consult received and pts chart was reviewed. OT went in to see pt who was sitting in the chair. She states that she is too tired to participate in consult. She is willing to wash her face which she is able to do (I) and apply her deodorant (I) as well. She would like to hold on washing up. She did mention that she would like to soak her feet. OT did discuss this with MATERIAL CONTROLLER who notes that pt has her legs wrapped and we should hold on this at this time. OT was not able to perform a good assessment at todays session and will attempt to perform a more thorough assessment tomorrow. Beatriz Pagan, OTR/[facility] [place], [place]
--- NOTE | 2024-01-04 15:27 | CMPROGNOTE_ITS ---
Date of service: 01/04/24 Time of Service: 15:27 Care Management Progress Note Progress Note Text Progress Note Text: Bonifacio was sitting in her recliner talking on the phone unable to be interrupted, each time CM attempted to meet with her today. Per OT, Bonifacio was unable to participate in a consult today due to being tired. PT is planning on meeting with pt this afternoon. No changes to overall plan, SNF referrals are pending at [facility] and [facility]. Discharge Potential Discharge Needs: Other (SNF for STR) Anticipated Barriers to Discharge: Bed availability Patient/Family Education Needs: Review discharge instructions, discuss Ask Me Three Transportation: Other (Dependent on dispo) Plan: Anticipate, Bonifacio will transfer to SNF for short term rehab vs return home with a resumption of services. She will transport via [facility], coordinated by CM. She will follow up with her PCP and discharge plan of care. CM will continue to follow. SDOH(Care Management) Screening Will the Patient Participate in the Screening?: Yes Do you worry about having a steady place to live?: yes Problems where you live: no known problems In the past 12 months, have you had to go without electric, gas, oil or water in your home?: no Have you or anyone in your house had to go without enough food to eat?: yes Has lack of transportation kept you from medical appointments or from doing things needed for daily living?: no Has anyone in your support network made you feel unsafe for any reason?: no Health Related Social Needs Health related social needs: housing instability, housed, with risk of homelessness(Z59.811) and food insecurity(Z59.41) Health related social needs details: Pt states that she is being evicted from her house and is no longer able to care for self at home.
[2024-01-04 15:39] VITALS: BP 110/88; PULSE 106; RESP 18; TEMP 36.2; O2SAT 93
[2024-01-04] MEDS: levoFLOXacin 750 MG/150 ML BAG 100 MG IVPB (16:12)
[2024-01-04] MEDS: Lidocaine 2% Jelly 6 ML SYR TP ×2 (16:13→17:00)
--- NOTE | 2024-01-04 16:13 | PTTR_ITS ---
PT Notes Visit Reasons: Cellulitis Physical Therapy Inpatient Treatment Note Date: 01/04/2024 PRECAUTIONS: Fall. Standard. Activity as tolerated SUBJECTIVE: Patient seems to have better tolerance to pain today compared to yesterday. Willing to get out of bed and do some exercises. 4-5/10 with movement. Prefers to sleep bedside recliner tonight. OBJECTIVE: ? Resting in bed. Erythema and wounds diminishing amd lightening up? PAIN: As above ? ? ? BED MOBILITY/TRANSFERS: Moderate cueing provided for use of B hands as needed for support, movement sequence, AD management, and posture to reduce fall risk and minimize pain report ? Supine-sit: minimal assist to B LE? Sit-supine: minimal assist to B LE? Sit-stand: moderate assist ? Stand-sit: minimal assist? GAIT: Took 4-5 small steps to transfer from edge of bed to bedside recliner requiring minimal assist and front-wheeled walker with minimal increase in pain in B LE. THERA EX: Guided patient with safe and correct performance of seated exercises to assist with edema manegement while optimizing range of motion in B LE joints: Seated marches x 10 Alternate LAQs x 10 Ankle DF x 10 Ankle PF x 10 Sit<>Stand x 2 with standing tolerance up to 1-2 minutes each ASSESSMENT:? Activity tolerance improving with increase in pain tolerance. Slowly making gains with pain beginning to be under control. Ensure that patient is preme dicated for sessions. Anxious and fearful of falling. Plan: Regain PLOF of using SPC for all mobility ADL performance as her wound heals. TREATMENT CODE/TIME: Session 1--[id number] x 34 mins for 2 units (10:53-11:27 am). Session 2-- [id number] x 27 minutes for 2 units (16;14-16:40).
[2024-01-04] MEDS: HYDROmorphone 2 MG/ML SYR 1 MG IVP (16:41)
--- NOTE | 2024-01-04 17:11 | CHAPLAIN ---
Bonifacio was in bed when I visited. She remembered meeting me during a previous admission. She seemed groggy and I asked if she wanted to nap rather than visit, but she said visiting helped distract her from her leg pain. She was recently give some pain meds, so she said she was a bit foggy. Bonifacio shared some personal history, telling me about her jobs with the [employer]. 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 She was raised in [facility] and returned her to care for her mother jannette has since . When I asked about relatives, she told me she is in touch with her sister, and her sister is often busy with a grandchild. Bonifacio said she is frustrated with her sister. After we spoke for a while, Bonifacio said she was going to return to her puzzle book and rest, and asked if I would visit again. I told I would and she could let her nurse know anytime she'd like a visit.
[2024-01-04 18:08] VITALS: TEMP 36.4
[2024-01-04] MEDS: Prochlorperazine 10 MG/2 ML VIAL 5 MG IVP (18:08)
[2024-01-04 19:33] VITALS: BP 108/66; PULSE 103; RESP 17; TEMP 35.9; O2SAT 98
[2024-01-04] MEDS: Melatonin 3 MG TAB PO (20:48)
[2024-01-04] MEDS: Gabapentin 100 MG CAP 200 MG PO (20:48)
[2024-01-04] MEDS: Salt Supplement (BUFFERED) TAB 1 TAB PO (20:48)
[2024-01-04] MEDS: Magnesium Chloride 64 MG TABCR PO (20:48)
[2024-01-04 23:00] VITALS: BP 96/70; PULSE 104; RESP 17; TEMP 36.2; O2SAT 92
[2024-01-05 02:32] VITALS: BP 102/68; PULSE 107; RESP 17; TEMP 36.3; O2SAT 93
[2024-01-05] MEDS: Acetaminophen 325 MG TAB PO ×2 (02:47→08:50)
[2024-01-05 07:02] LABS: Abs Immature Grans 0.04 10^3/uL (0.0-0.06); Absolute Basophil Count 0.05 10^3/uL (0.0-0.2); Absolute Eosinophil Count 0.19 10^3/uL (0.0-0.7); Absolute Monocyte Count 0.28 10^3/uL (0.1-0.8); Absolute Neutrophil Count 5.68 10^3/uL (1.2-6.7); Basophils % 0.7 %; Eosinophils % 2.6 %; HCT 28.1 % (36.0-46.0); HGB 9.2 g/dL (11.2-15.7); Immature Grans % 0.6 %; Lymphocytes % 13.8 %; MCH 33.9 pg (27.0-33.0); MCHC 32.7 % (32.0-36.0); MCV 104 fL (80-95); MPV 11.9 fL (8.0-11.0); Monocytes % 3.9 %; Neutrophils % 78.4 %; Platelet Count 243 10^3/uL (130-400); RBC 2.71 10^6/uL (3.93-5.22); RDW 18.6 % (11.7-14.6); RDW-SD 70.5 fL; WBC 7.24 10^3/uL (4.4-10.8)
[2024-01-05 07:17] LABS: Anion Gap 6.3 mmol/L (3-11); BUN 7 mg/dL (7-18); CO2 19.7 mmol/L (21.0-32.0); CREATININE 0.6 mg/dL (0.55-1.02); Calcium 7.8 mg/dL (8.5-10.1); Chloride 100 mmol/L (98-107); Estimated GFR 101.42 (mL/min/1.73m2); Glucose 76 mg/dL (74-106); Magnesium 1.7 mg/dL (1.8-2.4); Potassium 4.4 mmol/L (3.5-5.1); Sodium 126 mmol/L (136-145)
[2024-01-05] MEDS: Normal Saline 1,000 ML 100 ML IV ×2 (07:25→17:57)
[2024-01-05 07:30] VITALS: BP 144/85; PULSE 98; RESP 17; TEMP 36.1; O2SAT 93
[2024-01-05] MEDS: Tiotropium/Olodaterol 10 PUFF INHALER 2 PUFF IH (07:53)
[2024-01-05] MEDS: Protein Nutritional Supplement 16 GM 1 OUNCE PACKET PO ×3 (08:02→20:21)
[2024-01-05] MEDS: Collagenase 30 GM TUBE TP (08:02)
[2024-01-05] MEDS: Thiamine 100 MG TAB 250 MG PO (08:02)
[2024-01-05] MEDS: Salt Supplement (BUFFERED) TAB 1 TAB PO ×2 (08:03→20:00)
[2024-01-05] MEDS: Magnesium Chloride 64 MG TABCR PO ×2 (08:03→20:00)
[2024-01-05] MEDS: Multivitamin TAB 1 TAB PO (08:03)
[2024-01-05] MEDS: Omeprazole 20 MG CAPCR PO (08:03)
[2024-01-05] MEDS: Gabapentin 100 MG CAP PO (08:03)
[2024-01-05] MEDS: Normal Saline Flush 10 ML SYR IVP ×2 (08:03→20:01)
[2024-01-05] MEDS: Enoxaparin 40 MG/0.4 ML SYR SC (09:37)
[2024-01-05] MEDS: HYDROmorphone 2 MG/ML SYR 1 MG IVP (11:00)
--- NOTE | 2024-01-05 14:14 | OT.INNT ---
Occupational Therapy Notes 01/05/24 OT attempted to consult with pt again today. She notes that she is not able to do this at this time and would like to try again for tomorrow. OT and pt discuss this importance of ADL performance and (I) in ADLs and OT will attempt to consult with pt again tomorrow. Beatriz Pagan, OTR/L
--- NOTE | 2024-01-05 14:57 | CMPROGNOTE_ITS ---
Date of service: 01/05/24 Time of Service: 11:00 Care Management Progress Note Progress Note Text Progress Note Text: Bonifacio was sitting up in bed, sleeping, when CM met with her. She was easily aroused, was pleasant and engaged easily. CM informed Bonifacio that Chavo, from admissions at [facility], is going to visit with her today. She asked CM to give him a call to find out the time. CM did call, but had to leave a message. CM informed Bonifacio of this. Bonifacio is very concerned about where she is going to live. She informed CM that she got myself into this mess. Bonifacio stated that she is in a lot of pain today. She did not get out of bed for either breakfast or lunch today, and she was hesitant to work with PT. Discharge Potential Discharge Needs: Other (SNF for medical terminologist care) Anticipated Barriers to Discharge: Bed availability Patient/Family Education Needs: Review discharge instructions, discuss Ask Me Three Plan: Anticipate that Bonifacio will be discharged to SNF for LTC. Transportation will be dependent upon disposition. SDOH(Care Management) Screening Will the Patient Participate in the Screening?: Yes Do you worry about having a steady place to live?: yes Problems where you live: no known problems In the past 12 months, have you had to go without electric, gas, oil or water in your home?: no Have you or anyone in your house had to go without enough food to eat?: yes Has lack of transportation kept you from medical appointments or from doing things needed for daily living?: no Has anyone in your support network made you feel unsafe for any reason?: no Health Related Social Needs Health related social needs: housing instability, housed, with risk of homelessness(Z59.811) and food insecurity(Z59.41) Health related social needs details: Pt states that she is being evicted from her house and is no longer able to care for self at home.
[2024-01-05 15:00] VITALS: BP 112/78; PULSE 107; RESP 18; TEMP 36.6; O2SAT 93
--- NOTE | 2024-01-05 15:17 | W.PM.PROGNOT ---
Date of Service Date of service: 01/05/24 Time of Service: 15:17 Assessment and Plan Assessment and plan (1) Cellulitis: Status: Acute Assessment and plan: Continue oral Levaquin 750 mg Dressings per recommendation of wound care nurse Trend labs MRI bilat lower extr no evidence of osteomyelititis Qualifiers: Laterality: unspecified laterality Site of cellulitis: extremity Site of cellulitis of extremity: lower extremity Qualified Code(s): L03.119 - Cellulitis of unspecified part of limb (2) Chronic hyponatremia: Status: Chronic Assessment and plan: Na 126 -asymtomatic continue salt tabs Continue NS at 100 cc/hr (3) Hypoglycemia: Status: Resolved Assessment and plan: no further episodes monitor as needed (4) COPD (chronic obstructive pulmonary disease): Status: Chronic Assessment and plan: Continue nicotine replacement therapy On maintenance therapy with inhalers and as needed HFA therapy. Qualifiers: COPD type: emphysema Emphysema type: other Qualified Code(s): J43.8 - Other emphysema (5) Hypokalemia: Status: Resolved Assessment and plan: 4.4 continue to monitor (6) Hypomagnesemia: Status: Acute Assessment and plan: Trend 1.6 - repleted (7) Alcohol abuse: Status: Chronic Assessment and plan: Denied history of withdrawal and trend labs with better diet. Told to clear apartment d/t smoking by 01/25 (8) Tobacco use disorder: Status: Chronic Assessment and plan: Nicotine gum or transdermal patch PRN (9) Insomnia: Status: Acute Assessment and plan: melatonin at HS (10) Protein malnutrition: Status: Acute Assessment and plan: d/t chronic poor nutritional status/alcohol use disorder Nutrition consult - see note Oral protein TID (11) PVD (peripheral vascular disease): Status: Chronic Assessment and plan: Recommend f/u with vascular medicine Bilat pedal pulses positive-weak with doppler (12) Discharge planning issues: Status: Acute Assessment and plan: case management following for discharge planning The patient reported eviction from apartment d/t rule breaking re:no smoking with 01/25 deadline to remove her belongings Discussed with Dr. Haas Subjective Subjective Patient reports: no new complaints, still having pain, tolerating liquids well, tolerating a regular diet and afebrile; denies shortness of breath Exam Const General: cooperative, no acute distress, frail appearing and ill appearing chronically Nutritional Appearance: thin Orientation: alert, awake and oriented x3 HENMT Head: normal to inspection, normocephalic and atraumatic Mouth: moist mucous membranes abnormal (Slightly dry) Eyes General: appearance normal, both eyes and all related structures Alignment and Position: alignment normal Conjunctivae: conjunctivae normal Sclera: sclerae normal EOM: EOM intact bilaterally Neck Neck: normal visual inspection and full ROM Resp Effort & Inspection: normal respiratory effort and able to speak in complete sentences Auscultation: clear to auscultation bilaterally Cardio Rate: regular rate Rhythm: regular rhythm GI Palpation: soft, not firm, no guarding and nontender Auscultation: normal bowel sounds Back/Spine/Pelvis Back: No back tenderness Skin Lesions: other (Dressings intact to bilateral lower extremities no erythema distally or pro) Neuro General: patient alert, patient awake, patient oriented x3 and moves all extremities Extrem General: normal to inspection, full ROM and edema (left greater than right) Psych Appearance: grossly normal Mental Status: mental status grossly normal Speech and Movement: speech and movement normal Mood: congruent mood Affect: normal affect Objective Last Vital Signs Temp 36.1 C L 01/05/24 07:30 Pulse 98 H 01/05/24 07:30 Resp 17 01/05/24 07:30 BP 144/85 H 01/05/24 07:30 Pulse Ox 93 01/05/24 07:30 Laboratory Results - last 24 hr 01/05/24 06:17 WBC 7.24 RBC 2.71 L Hgb 9.2 L Hct 28.1 L MCV 104 H MCH 33.9 H MCHC 32.7 D RDW 18.6 H Plt Count 243 MPV 11.9 H Immature Gran % 0.6 Neutrophils % 78.4 Lymphocytes % 13.8 Monocytes % 3.9 Eosinophils % 2.6 Basophils % 0.7 Nucleated RBC % 0.0 Absolute Neutrophils 5.68 Absolute Lymphocytes 1.00 L Absolute Monocytes 0.28 Absolute Eosinophils 0.19 Absolute Basophils 0.05 Sodium 126 L Potassium 4.4 Chloride 100 Carbon Dioxide 19.7 L Anion Gap 6.3 BUN 7 Creatinine 0.6 Est GFR (CKD-EPI 2020) 101.42 Glucose 76 Calcium 7.8 L Magnesium 1.7 L PAWSS Have you Been Recently Intoxicated or Drunk Within the Last 30 days?: Yes Have you Ever Experienced Previous Episodes of Alcohol Withdrawal?: No Have you ever Experienced Withdrawal Seizures?: No Have you ever Experienced Delirium Tremens(DT)s?: No Have you ever undergone Alcohol Rehabilitation Treatment (i.e, inpt ot outpatient treatment programs)?: No Have you ever Experienced Blackouts?: Yes Have you ever Combined Alcohol with other Downers within the last 90 days?: No Have you ever Combined Alcohol with any other Substance of Abuse during the last 90 days?: Yes Positive Blood Alcohol level on Presentation? [PCS.BAL]: Yes Evidence of Increased Autonomic Activity (i.e. HR>120, tremor, sweating, agitation, nausea)?: Yes Result: 6 Time Spent with Patient Time Spent with Patient: 35-49 minutes Time was spent: preparing to see the patient(eg.review tests), obtaining and/or reviewing separately otained hiistory, ordering medications,tests, procedures, indepentently interpreting results and counseling the patient
[2024-01-05] MEDS: levoFLOXacin 750 MG/150 ML BAG 100 MG IVPB (15:54)
--- NOTE | 2024-01-05 16:05 | PT.INTREAT ---
PT Notes Visit Reasons: Cellulitis Physical Therapy Inpatient Treatment Note Date: 01/04/2024 PRECAUTIONS: Fall. Standard. Activity as tolerated SUBJECTIVE: Patient reports not feeling herself. Stating she thinks she may have too much medicine today. Pt agreeable to get into chair but only if she can get out on the right side of the bed. Patient reported pain in buttocks requesting to have cushion removed from underneath her. She refused to allow the blue float boots to be removed to attempt standing. OBJECTIVE: ? Semireclined in bed bilateral lower extremities with dressing in place and blue float boots on and donut shaped cushion under her buttocks. Once seated at edge of bed noted mottling bilateral lower extremities knees and toes. Unable to visualize under dressing bilaterally. Patient frequently closing her eyes dropping her head forward with chin towards chest frequently stating I am just so weak I cannot stay awake. ? PAIN: patient unable to utilize scale but did report pain in buttocks and lower extremity ? ? ? BED MOBILITY/TRANSFERS: Moderate cueing provided for use of B hands as needed for support, movement sequence, AD management, and posture to reduce fall risk and minimize pain report ? Supine-sit: minimal assist to B LE? Sit-supine: minimal assist to B LE? Sit-stand: moderate assist of 2? ?x 2 trials ? Stand-sit: minimal assist?of 2 ? ?x 2 trials ? Sit to stand trials with mod assist of 2 x 15 seconds with increased forward flexion of trunk and head. ASSESSMENT:? Patient functional ability limited by level of alertness versus pain this session. In sitting patient frequently leaning forward difficulty holding head up reporting she just feels not herself stating I need to stop taking these medications. Patient very insistent to not have boots removed prior to attempts to stand despite education on increased risk for falls. Patient demonstrated no episodes of weepiness or or anxiousness related to fear of falling this session. Level of pain medication and anxiety medication effect patient's ability to participate in skilled PT. nursing notified of level of alertness during session Plan: Regain PLOF of using SPC for all mobility ADL performance as her wound heals. TREATMENT CODE/TIME: -13774 x 35 mins for 2 units ([id number])
--- NOTE | 2024-01-05 16:31 | W.PALLCONSUL ---
Date of service: 01/05/24 Time of Service: 16:33 History of Present Illness Narrative: Fannie Gallego is a 63 YO woman from [facility] who is admitted to [facility] for treatment of leg ulcers and leg cellulitis due to critical peripheral vascular disease. Different members of the palliative care team have met with her briefly during several recent inpatient [facility] admissions. But she has cancelled (and even No-SHowed) for several attempted home visits. The hospitalist and care management teams have asked us to see her again to help with goals of care discussion as well as an additional level of support. There is also question of whether she at times lacks capacity to make medical decisions, given how frequently she changes her mind and also frequently has signed out against AMA when cultures are growing out concerning bacteria. Patient's other medical problems include active alcohol use disorder, active nicotine dependence, recurrent cellulitis and chronic leg edema (due to critical PVD), diastolic heart failure (normal ejection fraction), frequent hypotension, COPD, chronic liver disease (ascites in the past and pt was actually on hospice in the past). Patient seemed very tired today and intermittently complained of pain. She frequently changed the subject or was tangential. However she was more engaged than the previous time I met with her. My goal with today's visit was to establish a relationship with her and to begin to establish trust. Some history is obtained. Reviewing her [facility] chart, historically, patient is frequently in the emergency room, sometimes 2 or 3 times a week. If admission is recommended for treatment of acute condition, she is frequently declined admission. She has agreed to approximately 6 hospital admissions since May 2023). Her usual pattern is to sign out AGAINST MEDICAL ADVICE after 24-48 hours. However, recent change in pattern. At the end of November she remained in the hospital for about 4 days. He briefly went [place], had some ED visits and then readmitted a week ago. For this current admission, she was initially admitted 7 days ago. What is different this time is that she has been served an eviction notice and must vacate her apartment by the end of December. She is overwhelmed by this, I am homeless and feels that she can no linger care for herself, whether she has an apartment to live in or not. What is different this time that you are not rushing home? I can no longer take care of myself. She feels that once she can walk, she can go home. Losing housing: Found out 2 days ago. Told she has to be out be the end of the month. She has no idea how or where to look for new housing. She cannot think of anyone who can help her. NO onsite case manager currently. She lives in [facility] [place] [facility] and reports that she is not welcome to apply to [facility] at this time. Pain: What were you using at home? Tylenol, did not work. What are you getting here for pain? I don't know. It's making me sleepy and groggy, I don't like it. Chart review: Yestserday received 2 doses oral oxycodone 5mg and today received one dose IV hydromorphone 1 mg. SHe cannot tell me if her sleepiness and grogginess were occured after getting pain meds. SHe also can tell me if they helped, even transiently ema pain is so bad. She is written for acetaminophen Q 6h PRN and receiving gabapentin 100mg QAM and 200mg QHS. Alcoholic cirrhosis: Says she has not had anything to drink in a while. Staff reports she does not have withdrawal symptoms when she is admitted. She reports that she was on hospice 6 years ago because of the alcoholic cirrhosis, ascites and hepatic encephalopathy. They gave me 6 months to live. My whole body had shut down and Ihad sores on her legs. I was totally vitamin depleted. At that time she was admitted to hospice and elected DNR/DNI status. Since she has recovered, she has changed her CODE STATUS back to full code. Several years ago she was started on gabapentin at that time and continues on it for leg nerve pain. Nicotine dependence: Discussion with staff, we all feel that when she signs out AMA in the past, that nicotine craving is probably the predominant trigger. She has declined using a nicotine patch while here. Nicotine patch and gum do not work for her, she requests nicotine lozenge when she has a craving. Peripheral vascular disease/chronic leg ulcers/secondary leg pain: Please see hospitalist notes for more complete history. She has not been seen by vascular surgery in the last 7 years (unclear if ever seeing). Has had ABIs done (either [facility] or [facility] within the last 2 years) as well as some venous ultrasounds. Vascular disease also documented in various CT scans done at [facility]. Patient says she would be willing to have vascular surgery done if offered and if it would make her legs feel better. 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 Does not watch TV. Declines to share what she does like to do. Support: Do you have anyone to help you out? Not really. Has neighbors, but does not ask them for help, they never helped when she asked. Who helps you when you need support? I have one sister who cares, lives in [place]. No friends who can help her. Additional Services: Home Health has been coming in for wound care Does not think she has a onsite case manager at any other agency. Impression of currents health status: Legs are very bad, causing a lot of pain. She is trying to let them heal. Also trouble as her nose is plugged. Legs have been bad for a few months . She feels that the bones have to heal.She and her doctors have tried So much stuff, bandaging and wrapping, medications). What bothers you the most: The pain. What worries you the most: Does not answer Goals: Of course I want to get better Changes subject with efforts to explore other goals of care. Importantly, she does say I need to find a new apartment and she does say she woul dbe willing to go to [facility] in order to be able to walk again, get better and then be able to care for herself. Current information preferences: Function: Ambulation: Using WC at home for the past few months because of fluid. Has walker if she needs to get around. Sounds like she has been basically bedriddent for at last the last 3 weeks. ADLs: Currently needs help with dressing and toileting and bathing due to leg pain. Feeds herself iADLs: Was Independent. Not cooking meals because she lost her appetite. Had been doing her own finances. Hearing: Good Vision: Good Cognition: She thinks her memory is good. Falls: Has had falls recently, will no describe or quantitate Driving: Stopped years ago. Uses [employer] for shopping and to get around. Palliative Performance Scale % Ambulation Activity and Evidence of Disease Self Care Intake Level of Consciousness 100 Full Normal activity, no evidence of disease Full Normal Full 90 Full Normal activity, some evidence of disease Full Normal Full 80 Full Normal activity with effort, some evidence of disease Full Normal or reduced Full 70 Reduced Unable to do normal work, some evidence of disease Full Normal or reduced Full 60 Reduced Unable to do hobby or some housework, significant disease Occasional assist necessary Normal or reduced Full or confusion 50 Mainly sit/lie Unable to do any work, extensive disease Considerable assistance required Normal or reduced Full or confusion 40 Mainly in bed Unable to do any work, extensive disease Mainly assistance Normal or reduced Full, drowsy, or confusion 30 Totally bed bound Unable to do any work, extensive disease Total care Reduced Full, drowsy, or confusion 20 Totally bed bound Unable to do any work, extensive disease Total care Minimal sips Full, drowsy, or confusion 10 Totally bed bound Unable to do any work, extensive disease Total care Mouth care only Drowsy or coma 0 - - - - Patient Score: 50 Spiritual history: *from previous visit)Spiritual on her own. Prays for others, does not ask him to help her (he has his plan for me). Palliative review of systems: Pain: See HPI Dyspnea: SOB because one nostril is clogged and she needs nose spray. (denies URI or allergies) GI symptoms: Appetite: Appetite down recently and nothing tastes right. Depression: NQ Anxiety: None Emotional Distress: Yes, see HPI Spiritual/Existential Distress: Labs: Cr: 0.6 Liver panel: NL Albumin: 2.3 CBC: Hgb 8.6 INR 1.2 Advanced Care Planning: Advanced Directive: None on file Health Care Agent: Sister Annie Champion, [place], [place] COLST: Patient wishes to be full code. Confirmed today. However, does not want to be on machines She requests that we not talk about this further today but welcomes discussion at future visit. Limitations: Assessment and Plan Assessment and plan (1) Wound of right lower extremity: Status: Acute Assessment and plan: Patient is a 63-year-old woman with active alcohol use disorder (until the last week), nicotine addiction, vasculopath (extensive atherosclerotic disease and aorta, abdominal vessels, arteries of the leg), chronic leg edema and infected, nonhealing leg ulcers from her peripheral vascular disease, malnutrition who in the past has been challenging to care for when she is acutely ill, due to her pattern of frequently signing out AGAINST MEDICAL ADVICE. Over the last few weeks, Bonifacio's situation and her thoughts about her medical care have changed drastically after she was informed that she has to move out of her apartment by the end of next month. She has now been alcohol and tobacco free for a week. She has stated the hospital, excepting wound care. She is feeling ill and tired and a lot of pain from the leg cellulitis/ulcers (and perhaps also ischemia). Although she was initially resistant when case management strongly suggested subacute rehab stay to have intensive wound care, she, as she Now feels that this would be the best thing for her explains she can no longer care for herself at home, now that the legs are so bad that she cannot cook for herself or care for her apartment. She understands that when she is living in subacute rehab, she will not be able to drink alcohol or smoke and today she tells me that she accepts this. Ms. Gallego does have a pattern of changing her mind, but this does seem to be different than in the past. #Pain: Patient is is having significant pain from infection and ulcers on her legs. Ischemia also possibly component. Likely MRI shows no evidence of osteomyelitis. In this time she is staying in the hospital to get ongoing antibiotics. Although she has a history of alcoholic cirrhosis, INR 1.1 indicates that her liver synthetic function is actually pretty good right now. She is high risk for chronic opiate prescribing given her history of substance abuse, and she is very high risk for resuming drinking alcohol If and when sheis able to live on her own again. However, given the amount of pain she is in,Suggest cautious but compassionate use of low doses of opiates as long as she is in a supervised setting. I would be cautious not to escalate to higher doses unless absolutely needed, again because if she was discharged to living independently, would be high risk for resuming alcohol use. Recommend the followin. Schedule Tylenol 500 mg or 650 mg every 8 hours 2. Continue use of gabapentin. Technically, patient is child?Rhodes class I, and could probably tolerate slightly higher doses of gabapentin (currently at 100 mg every morning and 200 mg every afternoon). Could consider adding an additional 100 mg dose midday to start with. 3. if opioid needed (and before dressing changes/wound care), recommend starting with a very low dose of an oral opiate. Suggest starting with hydromorphone at 1 mg every 4 hours as needed. Oxycodone at lower doses also acceptable. Avoid morphine if possible. 4. If patient ends up returning to nonsupervised setting after discharge, suggest meeting with patient, palliative care team and PCP to discuss risks and benefits, interactions with alcohol, who will prescribe, and how to monitor this, #Goals of care: Patients main goal today is to get better . She was unwilling to discuss her wishes, goals and fears should she becomes sicker. She said she be willing to meet again in the future to discuss this. There are also some concerns she had about being stuck on machines, but also wanted to push off this discussion for another day. When asked if she would go to [facility] to meet with vascular surgery for evaluation or if she would consider surgery if recommended, she said I would do anything they offered to get better . Patient agreed to meet with us in 1 to 2 weeks to resume discussion of goals of care, advance care planning. Today she wishes to remain full code and still wishes her sister to act as healthcare agent if needed. #Discharge planning Throughout my visit today, she seemed to walk on the opportunity to go to subacute rehab to get stronger and get her legs healed. Additional supportive counseling today around abstaining from alcohol, smoking cessation, housing issues. (2) Advanced care planning/counseling discussion: Status: Acute (3) Celiac artery stenosis: Status: Acute (4) Atherosclerosis of abdominal aorta: Status: Acute (5) Superior mesenteric artery stenosis: Status: Acute (6) Smoker: Status: Acute (7) Alcohol abuse: Status: Chronic (8) Alcoholic cirrhosis of liver: Status: Acute (9) Housing instability due to threat of eviction: Status: Acute (10) Chronic pain: Status: Chronic Assessment and plan: 16 to 30 minutes spent today on Advance Care Planning. Patient and family participated voluntarily. Advance care planning may include (not limited to) explanation and discussion of advance directives, choosing and appointing healthcare agents, alternatives to various ACP tools, discussion of (and if indicated, completion of) COLST form, discussion of patient's values and overall goals for treatment, palliative and disease directive care options, ways to avoid hospital readmission including hospice discussions, care preferences should the patient's several other adverse health events.See today's palliative care note for additional information. This note was dictated using speech recognition software. Attempt was made at proofreading, but errors may be present. Please call with questions. PFSH All Active Problems (Updated 01/05/24 @ 20:39 by Pily Hazel MD) Chronic pain (Chronic) Housing instability due to threat of eviction (Acute) Alcoholic cirrhosis of liver (Acute) Advanced care planning/counseling discussion (Acute) Hypoproteinemia (Acute) Insomnia (Acute) Discharge planning issues (Acute) Cellulitis (Acute) Chronic hyponatremia (Chronic) Fracture of greater trochanter of right femur (Acute) Hypotension (Acute) Cellulitis (Acute) Leg pain (Acute) COPD (chronic obstructive pulmonary disease) (Chronic) Hypomagnesemia (Acute) Weakness of neck (Acute) Elevated ferritin (Acute) Compression fracture of L1 lumbar vertebra (Acute) Steatosis (Acute) Mild Portal hypertensive gastropathy (Acute) Wound of right lower extremity (Acute) into the fat layer Superior mesenteric artery stenosis (Acute) Renal artery stenosis (Acute) Diverticulosis (Acute) Celiac artery stenosis (Acute) Atherosclerosis of abdominal aorta (Acute) Severe Coronary artery calcification seen on CAT scan (Acute) Gastritis (Acute) Lacerations of multiple sites of leg (Acute) Weakness (Acute) COPD with acute exacerbation (Acute) COPD (chronic obstructive pulmonary disease) (Chronic) Shortness of breath (Acute) Tobacco dependence syndrome (Chronic) Edema, peripheral (Acute) Cellulitis of left leg (Acute) Ambulatory dysfunction (Acute) Edema of both lower legs (Acute) Congestive heart failure (Chronic) COPD exacerbation (Acute) Severe sepsis (Acute) Prolonged QT interval (Acute) Respiratory failure (Acute) Sepsis (Acute) Shock (Acute) Hypomagnesemia (Acute) Difficulty walking (Acute) PVD (peripheral vascular disease) (Chronic) Acute hypokalemia (Acute) Alcoholic ketoacidosis (Acute) Laceration of scalp (Acute) Fall (Acute) Chronic left hip pain (Acute) Contusion of hip (Acute) Smoker (Acute) Closed fracture of left hip (Acute) Anxiety (Chronic) Cavitary lesion of lung (Acute) Tobacco use disorder (Chronic 01/28/14) Pleural effusion (Acute) Hypomagnesemia (Acute) Fluid overload (Acute) Chest wall muscle strain (Acute) Emphysema lung (Acute) Nicotine dependence, cigarettes, uncomplicated (Acute) Atherosclerosis (Acute) Gastric wall thickening (Acute) Stenosis of right internal carotid artery (Acute) Mass of upper lobe of right lung (Acute) Alcohol abuse (Chronic) Dehydration (Acute) Diarrhea (Acute) Hypomagnesemia (Chronic) B12 deficiency (Acute) Hypocalcemia (Chronic) Ascites (Acute) Chronic liver disease (Chronic) Weight loss, non-intentional (Acute) Early satiety (Acute) Folate deficiency (Acute) Hypomagnesemia (Acute) Hypokalemia (Acute) Leg pain (Acute) Bilateral leg ulcer (Acute) Medical History Hyperkalemia Duodenitis without hemorrhage Cellulitis GI bleeding Right upper quadrant abdominal pain Leg pain Hypokalemia Chest pain due to GERD Gastroenteritis Hypotension Macrocytic anemia Advanced care planning/counseling discussion Palliative care patient Pneumonia Pulmonary nodule COPD (chronic obstructive pulmonary disease) Hypomagnesemia Cachexia Hepatic fibrosis Ulcer of lower extremity Hair loss Vitamin D deficiency Chest pain Gastroesophageal reflux disease Hx pulmonary embolism COPD (chronic obstructive pulmonary disease) Chronic vomiting Malnutrition Frequent falls Bilateral leg pain Pancreatitis Diastolic dysfunction Folate deficiency anemia Ascites Bilateral lower extremity edema Unintentional weight loss Alcohol abuse Tobacco abuse Surgical History Closed intertrochanteric fracture of left hip s/p IMN fixation (05/18/23) History of esophagogastroduodenoscopy (~12/2023) punch biopsy, skin of ankle, right lateral (11/24/16) negative for malignancy, sparse inflammation and reactive blood vessels foot surgery (~2000) Ligation of fallopian tube (~1999) ENT/Nasal surgery (~2007) Family History Father Lung disease Cancer Lung Social History Smoking/Tobacco Use Status: Current every day Tobacco Type: cigarettes Tobacco: How many years used: 45 Quit status: considering quitting Second Hand Exposure: Yes Smoking risk assessment performed?: Yes Alcohol Intake: current Alcohol Intake frequency: 3 or more drinks per day Alcohol type: wine and hard liquor Counseling given: Yes Counseling provided: provider counseling Drug use: Never Substance use type: marijuana Housing: apartment Current gender identity: female Do you feel safe at home: Yes Do you feel safe in your relationship?: Yes Additional Social history: Lives alone in studio in [facility], 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 Grew [place] in [place] [facility], sisters in area. History History Para 0 Hx # Term Pregnancies Multiple births Hx # Pregnancies Ectopic pregnancies AB induced Hx Number of Living Children AB spontaneous Exam Narrative Exam Narrative: Uncomfortable, thin woman appearing older than stated age. Easily distracted. Frequently changes subject or gives tangential answers. Oriented to place. Asks for help with putting head of bed up, adjusting protective booties, settign up meal tray. But then does not eat anything. Results Last Vital Signs Temp 36.6 C 01/05/24 15:00 Pulse 107 H 01/05/24 15:00 Resp 18 01/05/24 15:00 BP 112/78 01/05/24 15:00 Pulse Ox 93 01/05/24 15:00 Labs 01/05/24 06:17 01/05/24 06:17 Labs: Laboratory Results - last 24 hr 01/05/24 06:17 WBC 7.24 RBC 2.71 L Hgb 9.2 L Hct 28.1 L MCV 104 H MCH 33.9 H MCHC 32.7 D RDW 18.6 H Plt Count 243 MPV 11.9 H Immature Gran % 0.6 Neutrophils % 78.4 Lymphocytes % 13.8 Monocytes % 3.9 Eosinophils % 2.6 Basophils % 0.7 Nucleated RBC % 0.0 Absolute Neutrophils 5.68 Absolute Lymphocytes 1.00 L Absolute Monocytes 0.28 Absolute Eosinophils 0.19 Absolute Basophils 0.05 Sodium 126 L Potassium 4.4 Chloride 100 Carbon Dioxide 19.7 L Anion Gap 6.3 BUN 7 Creatinine 0.6 Est GFR (CKD-EPI 2020) 101.42 Glucose 76 Calcium 7.8 L Magnesium 1.7 L Time Spent Time Spent with Patient Time Spent(min): 90
[2024-01-05] MEDS: Sodium Chloride-Nasal SPRAY-ADULT 44 ML BTL NS (17:58)
[2024-01-05] MEDS: Melatonin 3 MG TAB PO (19:59)
[2024-01-05] MEDS: Gabapentin 100 MG CAP 200 MG PO (20:00)
[2024-01-05 20:04] VITALS: BP 108/82; PULSE 115; RESP 18; TEMP 36.3; O2SAT 92
[2024-01-06] VITALS (8 sets, daily range): BP systolic 106–149; BP diastolic 76–113; PULSE 107–121; RESP 15–19; TEMP 36–36.7; O2SAT 90–98
[2024-01-06] MEDS: Prochlorperazine 10 MG/2 ML VIAL 5 MG IVP (00:23)
[2024-01-06] MEDS: Acetaminophen 325 MG TAB PO ×3 (01:04→20:01)
[2024-01-06] MEDS: oxyCODONE 5 MG TAB 2.5 MG PO ×2 (01:06→10:11)
[2024-01-06] MEDS: Normal Saline 1,000 ML 100 ML IV (04:14)
[2024-01-06 07:23] LABS: Abs Immature Grans 0.07 10^3/uL (0.0-0.06); Absolute Basophil Count 0.03 10^3/uL (0.0-0.2); Absolute Eosinophil Count 0.09 10^3/uL (0.0-0.7); Absolute Lymphocyte Count 0.91 10^3/uL (1.2-3.4); Absolute Monocyte Count 0.34 10^3/uL (0.1-0.8); Absolute Neutrophil Count 5.23 10^3/uL (1.2-6.7); Basophils % 0.4 %; Eosinophils % 1.3 %; HCT 30.7 % (36.0-46.0); HGB 10.1 g/dL (11.2-15.7); Lymphocytes % 13.6 %; MCHC 32.9 % (32.0-36.0); MCV 103 fL (80-95); MPV 11.9 fL (8.0-11.0); Monocytes % 5.1 %; Neutrophils % 78.6 %; Platelet Count 275 10^3/uL (130-400); RBC 2.97 10^6/uL (3.93-5.22); RDW 19.1 % (11.7-14.6); RDW-SD 71.5 fL; WBC 6.67 10^3/uL (4.4-10.8)
[2024-01-06 07:51] LABS: Anion Gap 8.2 mmol/L (3-11); BUN 9 mg/dL (7-18); CO2 19.8 mmol/L (21.0-32.0); CREATININE 0.6 mg/dL (0.55-1.02); Calcium 7.8 mg/dL (8.5-10.1); Chloride 102 mmol/L (98-107); Estimated GFR 101.42 (mL/min/1.73m2); Glucose 81 mg/dL (74-106); Potassium 4.5 mmol/L (3.5-5.1); Sodium 130 mmol/L (136-145)
[2024-01-06] MEDS: Tiotropium/Olodaterol 10 PUFF INHALER 2 PUFF IH (08:09)
[2024-01-06] MEDS: Protein Nutritional Supplement 16 GM 1 OUNCE PACKET PO ×3 (08:55→20:01)
[2024-01-06] MEDS: Thiamine 100 MG TAB 250 MG PO (08:55)
[2024-01-06] MEDS: Salt Supplement (BUFFERED) TAB 1 TAB PO ×2 (08:56→20:01)
[2024-01-06] MEDS: Gabapentin 100 MG CAP PO (08:56)
[2024-01-06] MEDS: Magnesium Chloride 64 MG TABCR PO ×2 (08:56→20:02)
[2024-01-06] MEDS: Multivitamin TAB 1 TAB PO (08:57)
[2024-01-06] MEDS: Omeprazole 20 MG CAPCR PO (09:40)
[2024-01-06] MEDS: Enoxaparin 40 MG/0.4 ML SYR SC (10:11)
--- NOTE | 2024-01-06 11:29 | W.PM.PROGNOT ---
Date of Service Date of service: 01/06/24 Time of Service: 11:29 Assessment and Plan Assessment and plan (1) Cellulitis: Status: Acute Assessment and plan: Continue oral Levaquin 750 mg Dressings per recommendation of wound care nurse Trend labs MRI bilat lower extr no evidence of osteomyelititis Qualifiers: Laterality: unspecified laterality Site of cellulitis: extremity Site of cellulitis of extremity: lower extremity Qualified Code(s): L03.119 - Cellulitis of unspecified part of limb (2) Chronic hyponatremia: Status: Chronic Assessment and plan: improved Na 130 continue salt tabs discontinue NS (3) Hypoglycemia: Status: Resolved Assessment and plan: no further episodes monitor as needed (4) COPD (chronic obstructive pulmonary disease): Status: Chronic Assessment and plan: Continue nicotine replacement therapy On maintenance therapy with inhalers and as needed HFA therapy. Qualifiers: COPD type: emphysema Emphysema type: other Qualified Code(s): J43.8 - Other emphysema (5) Hypokalemia: Status: Resolved Assessment and plan: 4.4 continue to monitor (6) Hypomagnesemia: Status: Acute Assessment and plan: Trend 1.6 - repleted (7) Alcohol abuse: Status: Chronic Assessment and plan: Denied history of withdrawal and trend labs with better diet. Told to clear apartment d/t smoking by 01/25 (8) Tobacco use disorder: Status: Chronic Assessment and plan: Nicotine gum or transdermal patch PRN (9) Insomnia: Status: Acute Assessment and plan: melatonin at HS (10) Protein malnutrition: Status: Acute Assessment and plan: d/t chronic poor nutritional status/alcohol use disorder Nutrition consult - see note Oral protein TID (11) PVD (peripheral vascular disease): Status: Chronic Assessment and plan: Recommend f/u with vascular medicine Bilat pedal pulses positive-weak with doppler (12) Discharge planning issues: Status: Acute Assessment and plan: case management following for discharge planning The patient reported eviction from apartment d/t rule breaking re:no smoking with 01/25 deadline to remove her belongings Discussed with Dr. Downey Subjective Subjective Patient reports: no new complaints, tolerating liquids well, tolerating a regular diet and afebrile; denies shortness of breath Exam Const General: cooperative, no acute distress, frail appearing and ill appearing chronically Nutritional Appearance: thin Orientation: alert, awake and oriented x3 HENMT Head: normal to inspection, normocephalic and atraumatic Mouth: moist mucous membranes abnormal (Slightly dry) Eyes General: appearance normal, both eyes and all related structures Alignment and Position: alignment normal Conjunctivae: conjunctivae normal Sclera: sclerae normal EOM: EOM intact bilaterally Neck Neck: normal visual inspection and full ROM Resp Effort & Inspection: normal respiratory effort and able to speak in complete sentences Auscultation: clear to auscultation bilaterally Cardio Rate: regular rate Rhythm: regular rhythm GI Palpation: soft, not firm, no guarding and nontender Auscultation: normal bowel sounds Back/Spine/Pelvis Back: No back tenderness Skin Lesions: other (Dressings intact to bilateral lower extremities no erythema distally or pro) Neuro General: patient alert, patient awake, patient oriented x3 and moves all extremities Extrem General: normal to inspection, full ROM and edema (left greater than right) Psych Appearance: grossly normal Mental Status: mental status grossly normal Speech and Movement: speech and movement normal Mood: congruent mood Affect: normal affect Objective Last Vital Signs Temp 36.4 C L 01/06/24 08:24 Pulse 108 H 01/06/24 08:24 Resp 15 01/06/24 08:24 BP 106/77 01/06/24 08:24 Pulse Ox 97 01/06/24 08:24 Laboratory Results - last 24 hr 01/06/24 06:43 WBC 6.67 RBC 2.97 L Hgb 10.1 L Hct 30.7 L MCV 103 H MCH 34.0 H MCHC 32.9 RDW 19.1 H Plt Count 275 MPV 11.9 H Immature Gran % 1.0 Neutrophils % 78.6 Lymphocytes % 13.6 Monocytes % 5.1 Eosinophils % 1.3 Basophils % 0.4 Nucleated RBC % 0.0 Absolute Neutrophils 5.23 Absolute Lymphocytes 0.91 L Absolute Monocytes 0.34 Absolute Eosinophils 0.09 Absolute Basophils 0.03 Sodium 130 L Potassium 4.5 Chloride 102 Carbon Dioxide 19.8 L Anion Gap 8.2 BUN 9 Creatinine 0.6 Est GFR (CKD-EPI 2020) 101.42 Glucose 81 Calcium 7.8 L PAWSS Have you Been Recently Intoxicated or Drunk Within the Last 30 days?: Yes Have you Ever Experienced Previous Episodes of Alcohol Withdrawal?: No Have you ever Experienced Withdrawal Seizures?: No Have you ever Experienced Delirium Tremens(DT)s?: No Have you ever undergone Alcohol Rehabilitation Treatment (i.e, inpt ot outpatient treatment programs)?: No Have you ever Experienced Blackouts?: Yes Have you ever Combined Alcohol with other Downers within the last 90 days?: No Have you ever Combined Alcohol with any other Substance of Abuse during the last 90 days?: Yes Positive Blood Alcohol level on Presentation? [PCS.BAL]: Yes Evidence of Increased Autonomic Activity (i.e. HR>120, tremor, sweating, agitation, nausea)?: Yes Result: 6 Time Spent with Patient Time Spent with Patient: 35-49 minutes Time was spent: preparing to see the patient(eg.review tests), obtaining and/or reviewing separately otained hiistory, ordering medications,tests, procedures, indepentently interpreting results and counseling the patient
--- NOTE | 2024-01-06 11:41 | PT.INPN ---
PT Notes Visit Reasons: Cellulitis Physical Therapy Inpatient [facility] Note Date: 01/06/2024 Dates of Service: 12/30/2023 through 01/06/2024 Precautions: Fall. Standard. Activity as tolerated. Subjective: Continues to be limited by pain and by anticipation of it. Needs encouragement to participate in PT. Objective: General Observation: Resting in bed. Dressing to B legs and feet. Mental Status: Mildly drowsy today, oriented as to person, place, time, and purpose. Unable to focus due to pain level, tearful Pain: As above Vital Signs: Closely monitored by nursing staff ROM: Right Lower Extremity: Unwilling to move extremity due to pain Left Lower Extremity: Unwilling to move extremity due to pain Strength: Right Lower Extremity: Hip flexors 4-/5. Hip abductors 4-/5. Knee flexors 4-/5. Knee extensors 4-/5. Ankle dorsiflexors 4-/5. Ankle plantarflexors 4-/5. Left Lower Extremity: Hip flexors 4-/5. Hip abductors 4-/5. Knee flexors 4-/5. Knee extensors 4-/5. Ankle dorsiflexors 4-/5. Ankle plantarflexors 4-/5. Bed Mobility/Transfers: Moderate cueing provided for use of B hands as needed for support, movement sequence, Ad management, and and posture to reduce fall risk and minimize pain report. Supine to sit maximal assist with HOB at 30 degrees Sit to stand moderate assist Stand to sit moderate assist Bed to reclining chair moderate assist Gait: Unable to test Balance: Static Sitting: Unable to assume due to pain Dynamic Sitting: Unable to assume due to pain Static Standing: Unable to test Dynamic Standing: Unable to test Special Tests: Mobility Limitations Standardized Measure [facility] AM-PAC 6 clicks Basic Mobility Inpatient Short Form: Raw Score: 8 CMS Score: 87% deficit Informed Consent/Education: Patient was instructed in purpose of PT consult and plan of care. Agreeable to proceed with established PT POC to achieve personal goals. ASSESSMENT: Has needed more help since yesterday. [place] much weaker, needed a second person before she would move. Continues to require encouragement to participate in PT. Patient presents with clinical signs and symptoms consistent with current/admitting diagnoses that have resulted to mobility limitations, gait instability, generalized weakness, and overall ADL decline as demonstrated by the following impairment level findings: 1. Decreased strength to B LE major muscle groups 2. Impaired sitting/standing balance 3. Impaired activity tolerance 4. Severe pain in B legs and generalized pain at 10/10 with movement or when touched 5. Highly labile mood Impairments are contributing to the following functional limitations: 1. Decline in bed mobility skills 2. Unable to participate in transfer skills 3. Unable to participate in ambulation without assistive device and physical assistance 4. Increased risk for skin breakdown 5. Increased risk for falls Patient is assessed as a 49126 moderate complexity based on the following: History: 64-year-old female with past medical history as indicated above Examination: Demonstrable impairment in strength, balance, and mobility level with underlying impairments and functional limitations as exhibited above as well as deficit score of 100% utilizing the [facility] [place] Mobility Inpatient Short Form Presentation: Evolving Decision Makin moderate complexity Goals: Goals X1 week 1. Supine-Sit independent NOT MET, CONTINUE 2. Sit-Supine independent NOT MET, CONTINUE 3. Sit-Stand independent NOT MET, CONTINUE 4. Stand-Sit independent with FWW NOT MET, CONTINUE 5. Bed-Chair independent with FWW NOT MET, CONTINUE 6. Chair-Bed independent with FWW NOT MET, CONTINUE 7. Independent gait on level surface with use of FWW for at least 150 feet without report of pain nor dyspnea NOT MET, CONTINUE 8. Good static and dynamic standing balance/tolerance NOT MET, CONTINUE Plan of Care/Treatment Plan: 1-2x/day, 7 days/week x 1 week. Plan of care has been reviewed with the FIELD SALES TRAINER providing the service under Physical Therapy direction. Initiate Physical Therapy intervention for pain management as needed, strengthening, bed mobility, transfers, gait, stairs, balance training, and use of assistive device. DISCHARGE RECOMMENDATIONS: [] Home with no services [] [] Home with services [] Home with outpatient PT [] [X] SNF for continued rehabilitation. Patient will benefit from senior care facility placement for continued skilled physical therapy services in order to progress mobility level, strength, and balance in preparation for a safe discharge to home. [] [facility] [] [] SNF versus LTC based on ability to participate and progress [] TREATMENT CODE/TIME: 54373 x 26 minutes for 2 units (10:53-11:19). Thank you for the opportunity to participate in the care of this patient. Montse Saunders PT, DPT, CLT [facility] [place]
[2024-01-06] MEDS: Collagenase 30 GM TUBE TP (14:13)
[2024-01-06] MEDS: HYDROmorphone 2 MG/ML SYR 1 MG IVP (14:14)
[2024-01-06] MEDS: Lidocaine 2% Jelly 6 ML SYR TP (14:14)
[2024-01-06] MEDS: Normal Saline Flush 10 ML SYR IVP ×2 (14:14→20:02)
[2024-01-06] MEDS: levoFLOXacin 750 MG/150 ML BAG 100 MG IVPB (16:32)
--- NOTE | 2024-01-06 17:48 | PDOC.CMPRO ---
Date of service: 01/06/24 Time of Service: 17:48 Care Management Progress Note Progress Note Text Progress Note Text: Bonifacio was resting when CM attempted to meet with her; her RN asked not to wake her, as she needed the rest. Jeronimo, admissions from [facility], met with Bonifacio this morning to discuss the possibility of her going there for short term rehab. He indicated to staff that he is considering making a bed offer; CM followed up by phone and email, and have not heard a response. She will likely require a PA from her commercial insurance. CM will continue to follow. Discharge Potential Discharge Needs: Other (SNF placement) Anticipated Barriers to Discharge: Bed availability Patient/Family Education Needs: Review discharge instructions, discuss [facility] Me [facility] Transportation: RCT RCT Transportation: Wheel chair van Plan: Anticipate Boniafcio will transfer to SNF for short term rehab vs return home with a resumption of services. She will transport via RCT, coordinated by CM. She will follow up with her PCP and discharge plan of care. CM will continue to follow. SDOH(Care Management) Screening Will the Patient Participate in the Screening?: Yes Do you worry about having a steady place to live?: yes Problems where you live: no known problems In the past 12 months, have you had to go without electric, gas, oil or water in your home?: no Have you or anyone in your house had to go without enough food to eat?: yes Has lack of transportation kept you from medical appointments or from doing things needed for daily living?: no Has anyone in your support network made you feel unsafe for any reason?: no Health Related Social Needs Health related social needs: housing instability, housed, with risk of homelessness(Z59.811) and food insecurity(Z59.41) Health related social needs details: Pt states that she is being evicted from her house and is no longer able to care for self at home.
[2024-01-06] MEDS: Gabapentin 100 MG CAP 200 MG PO (20:01)
[2024-01-06] MEDS: Melatonin 3 MG TAB PO (20:02)
[2024-01-07] VITALS (14 sets, daily range): BP systolic 112–160; BP diastolic 82–102; PULSE 100–122; RESP 15–20; TEMP 35.7–36.9; O2SAT 92–98
--- NOTE | 2024-01-07 | DI.CT_ITS ---
Exam(s) CT HEAD WO EXAM: CT HEAD WO CLINICAL HISTORY: Altered level of conciousness, Left sided weakness. TECHNIQUE: Imaging Protocol: Axial computed tomography images with coronal and sagittal reformatted images were created and reviewed COMPARISON: CT CT HEAD CERVICAL SPINE WO from 06/27/2023 FINDINGS: Ventricles and Extra axial spaces: Normal in size and morphology for the patient's age. Hemorrhage: None. Cerebral parenchyma: No midline shift. No acute territorial infarct is identified. Midline shift: None. Brainstem/Cerebellum: Normal. Calvarium: Normal. Visualized Paranasal sinuses/Mastoids: Clear. Soft Tissues: Unremarkable. IMPRESSION: No acute intracranial process. RADIATION DOSE DELIVERED: 884.91mGy.cm Total DLP DATA REPOSITORY: All CT scans at this facility are submitted to the National Radiology Data Registry (NRDR) Dose Index Registry (DIR) with the [employer] (ACR). RADIATION OPTIMIZATION: All CT scans at this facility use at least one of these dose optimization te chniques: automated exposure control; mA and/or kV adjustment per patient size (includes targeted exa ms where dose is matched to clinical indication); or iterative reconstruction.
--- NOTE | 2024-01-07 | DI.CT_ITS ---
Exam(s) CT CHEST/ABD/PEL WO EXAM: CT CHEST/ABD/PEL WO CLINICAL HISTORY: Altered Mental Status w/o any clear etiology TECHNIQUE: Imaging Protocol: Axial computed tomography images with coronal and sagittal reformatted images were created and reviewed COMPARISON: CT CT CHEST PE ABD PELVIS W from 09/13/[address] CHEST PE CTA from 11/25/[address] CHEST PE ABD PELVIS W from 12/01/2023 FINDINGS: The examination is limited due to patient motion artifact. CHEST: Tracheobronchial tree: Patent where visualized. Pulmonary parenchyma: Marked centrilobular emphysematous changes are present. There is a stable opac ity in the posterior aspect of the right upper lobe. Ground-glass opacities are seen in the lungs. There are large bilateral pleural effusions. Near complete consolidation/volume loss is seen in the lower lobes bilaterally. These findings were not present on the examination from 12/01/2023. Mediastinum and Gaye: No dominant adenopathy or fluid collection. The esophagus is unremarkable. Thyroid gland: Unremarkable. Pleura: No pneumothorax. Heart: Cardiomegaly. Mitral calcifications are present. Coronary artery calcifications are present. No pericardial effusion. Aorta: Atherosclerotic calcification is present. This does result in marked narrowing of the right s ubclavian artery. Lymph nodes: Within normal limits. Bones:Within normal limits for the patient's age. There is an old sternal fracture present. Old lef t rib fracture. Soft tissues: Unremarkable. ABDOMEN: Liver: Normal density. No measurable mass. Gallbladder and Biliary Tract: Cholelithiasis. No significant biliary ductal dilatation is present. Pancreas: There is pancreatic atrophy. Spleen: Normal. Adrenals: No masses seen. Kidneys: Normal size, contour and axis. No radiodense stones or obstructive uropathy. No masses seen. Abdominal Aorta: Abdominal portion non-dilated. Atherosclerotic calcification is present. Marked danae cification is seen at the origins of the renal arteries causing marked significant stenosis. There i s also some calcification at the origins of both the celiac axis and the superior mesenteric artery. Moderate calcification is seen in the iliac arteries. Bowel: There is diverticulosis present. No definite diverticulitis. There is a moderate amount of s tool seen predominantly in the transverse and ascending colon. There is no evidence of bowel obstruc tion. No pneumatosis is present. No evidence of appendicitis. Peritoneal Cavity: There is a moderate amount of abdominal pelvic ascites. No free air. Lymph Nodes: Within normal limits. Bones: Within normal limits for the patient's age. The patient has an intramedullary renetta transfixing an old left femoral neck fracture. Soft Tissues: There is edema seen in the soft tissues suggesting anasarca. PELVIS: Bladder: The patient has a Douglas catheter. The urinary bladder is incompletely distended. There is a collection of air seen anteriorly on the axial images (series 5, image 112) in the pelvis. On the lateral view, it is air seen within the urinary bladder. This likely reflects catheter placement. Reproductive Organs: Unremarkable as visualized. Lymph Nodes: Within normal limits. Bones: Within normal limits for the patient's age. IMPRESSION: 1. Development of large bilateral pleural effusions and consolidation in the lower lobes which may re present atelectasis or pneumonia. Please correlate clinically. Findings may represent CHF/fluid ove rload. 2. Ground-glass opacities in the lungs which may reflect an infectious or inflammatory process. 3. Stable opacity in the right upper lobe. 4. Moderate amount of abdominal pelvic ascites. 5. Cholelithiasis. 6. Colonic diverticulosis without evidence of acute diverticulitis. 7. Marked centrilobular emphysema. 8. Extensive atherosclerotic calcification as described above. 9. Anasarca. RADIATION DOSE DELIVERED: 591.23mGy.cm Total DLP 591.23mGy.cm Total DLP DATA REPOSITORY: All CT scans at this facility are submitted to the National Radiology Data Registry (NRDR) Dose Index Registry (DIR) with the [employer] (ACR). RADIATION OPTIMIZATION: All CT scans at this facility use at least one of these dose optimization te chniques: automated exposure control; mA and/or kV adjustment per patient size (includes targeted exa ms where dose is matched to clinical indication); or iterative reconstruction.
--- NOTE | 2024-01-07 | DI.CT_ITS ---
Exam(s) CT UPPER EXTREMITY LT CTA EXAM: CT UPPER EXTREMITY LT CTA CLINICAL HISTORY: Swelling, cold, pale TECHNIQUE: Imaging Protocol: Axial computed tomography images with coronal and sagittal reformatted images were created and reviewed. CONTRAST MATERIAL: Intravenous: Omnipaque 350 Contrast volume:100 COMPARISON: There are no priors for comparison. FINDINGS: Bones: The osseous structures and articular surfaces are intact. There is no evidence of fracture or dislocation. Bony alignment is satisfactory. The mid-foot is well maintained. No cellulitic or osteom yelitic changes are identified. There is no evidence of joint space narrowing or cystic degeneration seen. No lytic or sclerotic lesions are identified. Upper extremity arteries: There is marked atherosclerotic calcifications seen in the left subclavian artery resulting in marked stenosis.There is significant atherosclerotic calcification in the left ax illary artery resulting in marked atherosclerosis.Atherosclerotic calcification is seen in the proxim al left brachial artery resulting in [id number] stenosis. The distal left brachial artery is p atent.The proximal left radial artery shows calcification but no significant stenosis.The left ulnar artery is unremarkable. Soft Tissues: There are large bilateral pleural effusions.There is diffuse edema in the soft tissues of the left upper extremity. No focal fluid collection is seen to suggest an abscess. IMPRESSION: 1. 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 There is marked stenosis seen in the left subclavian and left axilla ry arteries. RADIATION DOSE DELIVERED: 180.39mGy.cm Total DLP DATA REPOSITORY: All CT scans at this facility are submitted to the National Radiology Data Registry (NRDR) Dose Index Registry (DIR) with the [employer] (ACR). RADIATION OPTIMIZATION: All CT scans at this facility use at least one of these dose optimization te chniques: automated exposure control; mA and/or kV adjustment per patient size (includes targeted exa ms where dose is matched to clinical indication); or iterative reconstruction.
[2024-01-07] MEDS: LORazepam 1 MG TAB PO (01:56)
[2024-01-07] MEDS: Protein Nutritional Supplement 16 GM 1 OUNCE PACKET PO (08:34)
[2024-01-07] MEDS: Normal Saline Flush 10 ML SYR IVP ×3 (08:43→20:44)
[2024-01-07] MEDS: Lidocaine 2% Jelly 6 ML SYR TP (08:57)
[2024-01-07] MEDS: Collagenase 30 GM TUBE TP (09:20)
[2024-01-07] MEDS: Enoxaparin 40 MG/0.4 ML SYR SC (10:42)
--- NOTE | 2024-01-07 11:02 | NUR.NOTE ---
Nursing Note: Unable to give pt morning medications due to pt appearing somnolent. Provider notified. Will continue to monitor
--- NOTE | 2024-01-07 11:56 | PT.INNT ---
PT Notes Visit Reasons: Cellulitis Pt approached multiple times during the course of the morning, 9am, 10am, 11am pt not able to stay awake.
--- NOTE | 2024-01-07 14:39 | PGE_ITS ---
Date of Service Date of service: 01/07/24 Time of Service: 14:39 Assessment and Plan Assessment and plan (1) Altered level of consciousness: Status: Acute Assessment and plan: Nursing reporting altered level of consciousness and patient. On initial assessment patient was PERRLA but did with initial down gazing bilaterally was most likely thought to be due to lorazepam dose received at 2 AM. On further assessment at 3:00 PM (please see hypoglycemia point). Patient was more awake but showed weakness in withdrawing left upper extremity from noxious stimuli, and no withdrawal from lower left extremity. Patient was able to answer that she was in [place], stated her name but opened her eyes with difficulty when asked. Stat head CT: Negative for acute findings Stat CMP- Na 129 Stat CBC No further lorazepam (2) Cellulitis: Status: Acute Assessment and plan: Stop Levaquin Continue dressings per recommendation of wound care nurse CBC in AM No evidence of osteomyelititis as per MRI will Gallardo Qualifiers: Laterality: unspecified laterality Site of cellulitis: extremity Site of cellulitis of extremity: lower extremity Qualified Code(s): L03.119 - Cellulitis of unspecified part of limb (3) Left upper extremity swelling: Status: Acute Assessment and plan: Positive radial pulse but clear to touch, sensation intact CTA left upper ext. (4) Chronic hyponatremia: Status: Chronic Assessment and plan: Previous sodium as low as 125 improved Na 129 CMP pending Will continue salt tabs BMP in the morning (5) Hypoglycemia: Status: Resolved Assessment and plan: In the setting of previous hypoglycemia and change in mental status stat blood glucose was 69, up to 83 after 4 gm of surgar orally. Patient was also more awake, but not back to baseline Dextrose 50% 25 gm X1 for repeated blood glucose at 70. Fingerstick Q4 H (6) COPD (chronic obstructive pulmonary disease): Status: Chronic Assessment and plan: On nicotine replacement therapy Continue maintenance therapy with inhalers and as needed HFA therapy. Qualifiers: COPD type: emphysema Emphysema type: other Qualified Code(s): J43.8 - Other emphysema (7) Alcohol abuse: Status: Chronic Assessment and plan: Denied history of withdrawal and trend labs with better diet. Nutrition consult Told to clear apartment d/t smoking by 01/25 (8) Tobacco use disorder: Status: Chronic Assessment and plan: Continue Nicotine gum or transdermal patch PRN (9) Insomnia: Status: Acute Assessment and plan: Continue melatonin at HS (10) Protein malnutrition: Status: Acute Assessment and plan: d/t chronic poor nutritional status/alcohol use disorder Nutrition consult - see note Oral protein TID (11) PVD (peripheral vascular disease): Status: Chronic Assessment and plan: Recommend f/u with vascular medicine (12) Discharge planning issues: Status: Acute Assessment and plan: case management following for discharge planning The patient reported eviction from apartment d/t rule breaking re:no smoking with 01/25 deadline to remove her belongings [facility] VS home with HH Discussed with Dr. Haas Subjective Subjective Interval history since last seen: Patient is somnolent, but is well to deny chills, fever, nausea, vomiting. The patient denies pain. The patient is showing irritation when the question is asked twice. Exam Narrative Exam Narrative: Elderly patient looking older than age. In bed somnolent easily arousable with verbal stimuli. The patient received 1 dose of lorazepam overnight around 2 AM and remains sleepy. The patient opened her eyes on multiple demands; she is PERRLA sluggish bilaterally on ambient light. The patient is able to answer questions with short answers while yawning. No acute distress, withdrawal to noxious stimuli , LLE w no w/d. Heart is regular, . Clear upper lung to auscultation with diminished bases.Abdomen semifirm,nonacute no tenderness to palpation with positive bowel sounds. LUE, is swollen , pale and cool to touch appears less mobile than the RUE. Bilateral lower extremity with clean and dry dry dressings. Objective Last Vital Signs Temp 36.9 C 01/07/24 11:44 Pulse 105 H 01/07/24 11:44 Resp 18 01/07/24 11:44 BP 140/96 H 01/07/24 11:44 Pulse Ox 94 01/07/24 12:39 PAWSS Have you Been Recently Intoxicated or Drunk Within the Last 30 days?: Yes Have you Ever Experienced Previous Episodes of Alcohol Withdrawal?: No Have you ever Experienced Withdrawal Seizures?: No Have you ever Experienced Delirium Tremens(DT)s?: No Have you ever undergone Alcohol Rehabilitation Treatment (i.e, inpt ot outpatient treatment programs)?: No Have you ever Experienced Blackouts?: Yes Have you ever Combined Alcohol with other Downers within the last 90 days?: No Have you ever Combined Alcohol with any other Substance of Abuse during the last 90 days?: Yes Positive Blood Alcohol level on Presentation? [PCS.BAL]: Yes Evidence of Increased Autonomic Activity (i.e. HR>120, tremor, sweating, agitation, nausea)?: Yes Result: 6 Time Spent with Patient Time Spent with Patient: >50 minutes Time was spent: preparing to see the patient(eg.review tests), obtaining and/or reviewing separately otained hiistory, ordering medications,tests, procedures, referring, communicating with other health direct support professional caregiver, indepentently interpreting results, counseling the patient and care coordination
[2024-01-07] MEDS: Dextrose 50%-Water 25 GM/50 ML SYR IVP (16:48)
[2024-01-07 17:47] LABS: Abs Immature Grans 0.06 10^3/uL (0.0-0.06); Absolute Basophil Count 0.02 10^3/uL (0.0-0.2); Absolute Eosinophil Count 0.03 10^3/uL (0.0-0.7); Absolute Lymphocyte Count 1.04 10^3/uL (1.2-3.4); Absolute Monocyte Count 0.38 10^3/uL (0.1-0.8); Absolute Neutrophil Count 5.22 10^3/uL (1.2-6.7); Basophils % 0.3 %; Eosinophils % 0.4 %; HCT 35.9 % (36.0-46.0); HGB 11.9 g/dL (11.2-15.7); Immature Grans % 0.9 %; Lymphocytes % 15.4 %; MCH 34.2 pg (27.0-33.0); MCHC 33.1 % (32.0-36.0); MCV 103 fL (80-95); MPV 11.7 fL (8.0-11.0); Monocytes % 5.6 %; Neutrophils % 77.4 %; Platelet Count 337 10^3/uL (130-400); RBC 3.48 10^6/uL (3.93-5.22); RDW 19.2 % (11.7-14.6); RDW-SD 72.7 fL; WBC 6.75 10^3/uL (4.4-10.8)
[2024-01-07 18:07] LABS: ALT 18 U/L (14-59); AST 37 U/L (15-37); Albumin 1.4 g/dL (3.4-5.0); Alkaline Phosphatase 213 U/L (46-116); Anion Gap 10.1 mmol/L (3-11); BUN 10 mg/dL (7-18); Bilirubin, Total 0.62 mg/dL (0.2-1.0); CO2 19.9 mmol/L (21.0-32.0); CREATININE 0.6 mg/dL (0.55-1.02); Calcium 8.5 mg/dL (8.5-10.1); Chloride 99 mmol/L (98-107); Estimated GFR 101.42 (mL/min/1.73m2); Glucose 114 mg/dL (74-106); Sodium 129 mmol/L (136-145); Total Protein 5.5 g/dL (6.4-8.2)
--- NOTE | 2024-01-07 20:28 | W.EVENT ---
Date of service: 01/07/24 Time of Service: 20:29 Event Note: I was notified by nursing as they had concerns with the patient's altered mental status. On reviewing her medical records it is noted that the patient has been awake, alert and oriented x3 on 01/04 and 01/05. Last night she received PO Ativan 1mg x1 (0400). This morning it was noted that the patient was somnolent. On my exam the patient is somnolent and is non-verbal. She does respond to painful stimuli. Her physical exam is significant for pitting edema of all four of her extremities. She did have labs draw recently in the afternoon with unremarkable findings. Her blood counts do not show any leukocytosis and she has mild anemia w/ normal platelets. Her sodium is stable at 129 w/o any significant anion gap. Her alkaline phosphatase is elevated but stable. She does not have elevations of her total bilirubin. Her albumin has been chronically decreased but is most likely playing a significant role in the third spacing of her extremities. Physical Exam: NCAT, PERRLA. Poor dentition, dry oral mucosa No cervical lymphadenopathy RRR S1/S2 Bilateral CTA No pain on palpation, normal BS On exam she has significant pitting edema of all four of her extremities. Echymoses of thighs Due to her AMS a neuro exam cannot be completed Plan: Altered Mental Status: She has developed acute mental status changes from last night when she was given Ativan 1mg x1. Throughout the day it has been noted that she has had increased somnolence and is not at her baseline status. On my exam she is indeed somnolent and only responsive to painful stimuli. She is non-verbal and does not track any movement with her eyes. Her pupils are equally reactive and not blown. She did have a CT Head for AMS and left sided weakness which did not show any evidence of ischemic or hemorrhagic stroke. She has also been hemodynamically stable. Her lab work is unremakable outside of significant decreased albumin most likely resulting in third spacing. Her UA is bland. At this time I would advise to hold all sedating or pain medications. We can obtain blood cultures x2 as well as CT Chest/Abd/Pelvis w/o contrast for workup to ensure there is no other cause for her change in mentation. She has been on Lovenox sq and at this time I suspect a PE is less likely. She does have a history of a Differential Dx - Suspect medication induced, Hospital acquired delirium, Rule out infection, consider withdrawl disorders (Alcohol) but no evidence of DTs -CBC, CMP, Mg, TSH, B12, Folate -Abstain from all sedating and pain medications -R/O any infection w/ Blood Cx x2 -UA is bland - Defer UCx -Obtain CT Chest/Abd/Pelvis w/o contrast for further evaluation for unexplained AMS -If she has no improvement then consider MRI Brain Time Spent with Patient Time spent in critical care(minutes): 45 Time Spent Included: Coordination of care, Chart review, Documenting critically ill care, Time at immediate bedside and Discussing critically ill care with other medical staff
[2024-01-07] MEDS: Omnipaque 350 MG/ML 100 ML BTL IJ (21:11)
[2024-01-07] MEDS: Normal Saline - Diluent 50 ML VIAL IJ (21:12)
[2024-01-07 21:25] LABS: BE (Venous) -8 mmol/L (-2-3); HCO3 (Venous) 16 mmol/L (23-28); pCO2 (Venous) 22 mmHg (41-51); pH (Venous) 7.47 (7.31-7.41); pO2 (Venous) 139 mmHg
[2024-01-07 21:37] LABS: Ammonia 107 umol/L (11-32)
[2024-01-07 21:42] LABS: Lactate 2.4 mmol/L (0.6-1.4)
[2024-01-07 22:21] LABS: INR 1.1 (0.9-1.1); PTT Activated 26.7 sec (23.6-32.8)
[2024-01-07 22:53] LABS: D-Dimer 889 ng/mlFEU (<500)
--- NOTE | 2024-01-07 22:55 | DI.VRAD_ITS ---
PROCEDURE INFORMATION: Exam: CT Chest Without Contrast; Diagnostic Exam date and time: 01/07/2024 9:44 PM Age: 63 years old Clinical indication: Pain; Other: AMS w/o any clear etiology TECHNIQUE: Imaging protocol: Diagnostic computed tomography of the chest without contrast. 3D rendering (Not supervised by radiologist): MIP and/or 3D reconstructed images were created by the technologist. COMPARISON: CT CHEST PE ABD PELVIS W 12/01/2023 10:38 PM FINDINGS: Lungs: Significant volume loss, consolidation air bronchograms within the bilateral lower lobes, new from the prior study. Extensive emphysema within the upper lobes. A somewhat mosaic pattern is seen throughout the bilateral upper lobes, right middle lobe and lingula, new from the prior study. Pleural spaces: Moderate to large sized bilateral pleural effusions, new from the prior study. Heart: The heart is mildly enlarged. Trace pericardial fluid. Coronary arteries: Extensive calcified atherosclerotic plaque and/or stents are seen throughout the coronary arteries. Esophagus: A 10 mm hypodensity focus is seen within the lower esophagus which may represent a swallowed pill. Mild circumferential wall thickening throughout the esophagus extending into the gastroesophageal junction. Lymph nodes: Increased number of small lymph nodes are seen throughout the mediastinum. No pathologically enlarged lymph nodes within the chest. Vasculature: Moderate calcified atherosclerotic plaque throughout the thoracic aorta without aneurysm. Bones/joints: Chronic, [id number] displaced fracture within the proximal to mid sternal body, unchanged. Chronic right lateral 9th rib fracture. Chronic L1 compression fracture. Soft tissues: Moderate anasarca. IMPRESSION: 1. Findings most consistent with volume overload with moderate to large sized pleural effusion resulting in consolidation and volume loss of the bilateral lower lobes and possible pulmonary edema within the bilateral upper lobes, lingula and right middle lobe. Associated moderate anasarca is also present. 2. Probable swallowed pill within the lower esophagus. Probable mild esophagitis. PROCEDURE INFORMATION: Exam: CT Abdomen And Pelvis Without Contrast Exam date and time: 01/07/2024 9:44 PM Age: 63 years old Clinical indication: Pain; Other: AMS w/o any clear etiology TECHNIQUE: Imaging protocol: Computed tomography of the abdomen and pelvis without contrast. 3D rendering (Not supervised by radiologist): MIP and/or 3D reconstructed images were created by the technologist. COMPARISON: CT CHEST PE ABD PELVIS W 12/01/2023 10:38 PM FINDINGS: Tubes, catheters and devices: A catheter is seen within the urinary bladder. Liver: The liver is mildly enlarged and has a lobulated contour suggesting underlying liver disease. Gallbladder and biliary ducts: The gallbladder is moderately distended and contains several tiny calcified stones. No bile duct dilatation. Pancreas: The pancreas is significantly atrophic. No pancreatic ductal dilatation. Spleen: The spleen is small in size. Adrenal glands: The bilateral adrenal glands are slightly thickened suggesting adrenal hyperplasia, unchanged. Kidneys and ureters: The bilateral kidneys are mildly atrophic. No hydronephrosis. A subtle, 1.2 cm simple cyst is seen within the lower pole of the right kidney. Stomach and bowel: Apparent wall thickening throughout the gastric folds. The stomach is nondistended. The small bowel is nondistended and fluid-filled. A moderate amount of stool is seen throughout colon to the level of the rectum. No bowel obstruction. Extensive diverticula are seen throughout the descending and sigmoid colon without evidence for acute diverticulitis. Appendix: No evidence of appendicitis. Intraperitoneal space: A small to moderate amount of free fluid/ascites is seen throughout the abdomen and pelvis. No free air or abscess. Vasculature: Extensive calcified atherosclerotic plaque throughout the abdominal aorta, with extensive calcified plaque seen within the mid to distal abdominal aorta resulting in severe, near occlusive stenosis. This is similar when compared to the prior study. Lymph nodes: Multiple calcified lymph nodes are seen within the right upper quadrant, unchanged. No lymphadenopathy within the abdomen and pelvis. Urinary bladder: The urinary bladder is nondistended with a small bleb of air in minimal circumferential wall thickening. Reproductive: The uterus is atrophic. No adnexal mass. Bones/joints: Intramedullary renetta and dynamic screw is seen within the proximal left femur for treatment of a fracture. This is similar when compared to the prior study. No new fracture. Soft tissues: Extensive, diffuse anasarca. IMPRESSION: 1. Findings most consistent with volume overload, with [id number] ascites and extensive anasarca. This is new from the prior study. 2. Wall thickening within the gastric folds, which may represent gastritis. Colonic diverticulosis without diverticulitis. 3. Mild circumferential wall thickening within the urinary bladder, which may be due to underdistension. Cystitis could have this appearance, in the correct clinical context. 4. Mildly enlarged and lobulated liver consistent with underlying liver disease. Cholelithiasis without evidence for acute cholecystitis. Dictated and Authenticated by: Emmie Veras MD. Ordering:JEANNIE Long MD
--- NOTE | 2024-01-07 23:03 | DI.VRAD_ITS ---
PROCEDURE INFORMATION: Exam: CT Left Upper Extremity With Contrast Exam date and time: 01/07/2024 9:53 PM Age: 63 years old Clinical indication: Swelling and other: Cold, pale; Arm, lower; Left; Patient HX: Swelling, cold, pale TECHNIQUE: Imaging protocol: Computed tomography of the left upper extremity with contrast. 3D rendering (Not supervised by radiologist): MIP and/or 3D reconstructed images were created by the technologist. COMPARISON: CT CHEST/ABD/PEL WO 01/07/2024 9:44 PM FINDINGS: Bones/joints: No osseous destruction to suggest osteomyelitis. No evidence for acute fracture. Soft tissues: Extensive subcutaneous edema is seen throughout the left upper extremity. Vasculature: Extensive calcified and soft atheromatous plaque is seen throughout the left subclavian and axillary arteries, likely resulting in severe stenosis. Patchy calcified atherosclerotic plaque is seen throughout the brachial artery resulting in areas of moderate stenosis proximally. Contrast is seen extending throughout the remaining brachial artery, with contrast extending into the radial and ulnar arteries without occlusion. Pleural space: A partially imaged moderate to large sized left-sided pleural effusion is seen. IMPRESSION: 1. Findings suggestive of high-grade stenosis within the left subclavian and axillary arteries. Contrast is seen distal to the stenosis without occlusion. 2. Extensive, diffuse subcutaneous edema, which may represent volume overload/anasarca. Dictated and Authenticated by: Emmie Veras MD. Ordering:MARGE Miller MD
[2024-01-08] VITALS (98 sets, daily range): BP systolic 62–122; BP diastolic 41–96; PULSE 60–123; RESP 9–28; TEMP 36.4–36.8; O2SAT 82–100
[2024-01-08] MEDS: ALBUMIN HUMAN 25 GM/100 ML BTL IVPB (01:00)
[2024-01-08] MEDS: Furosemide 40 MG/4 ML VIAL IVP (01:52)
[2024-01-08] MEDS: MAGNESIUM SULFATE 2 GM/50 ML BAG IVINF (01:53)
[2024-01-08] MEDS: Lidocaine 5% Patch 1 PATCH TP (02:47)
[2024-01-08] MEDS: Diclofenac 1% Gel 100 GM TUBE TP ×5 (02:48→20:50)
[2024-01-08] MEDS: Normal Saline Flush 10 ML SYR IVP ×3 (03:37→20:51)
[2024-01-08] MEDS: Dextrose 50%-Water 25 GM/50 ML SYR ×5 (03:40→17:17)
[2024-01-08 06:12] LABS: Abs Immature Grans 0.07 10^3/uL (0.0-0.06); Absolute Basophil Count 0.03 10^3/uL (0.0-0.2); Absolute Eosinophil Count 0.23 10^3/uL (0.0-0.7); Absolute Lymphocyte Count 2.09 10^3/uL (1.2-3.4); Absolute Monocyte Count 1.52 10^3/uL (0.1-0.8); Absolute Neutrophil Count 5.54 10^3/uL (1.2-6.7); Basophils % 0.3 %; Eosinophils % 2.4 %; HCT 35.6 % (36.0-46.0); HGB 12.1 g/dL (11.2-15.7); Immature Grans % 0.7 %; MCH 33.6 pg (27.0-33.0); MCV 99 fL (80-95); MPV 10.4 fL (8.0-11.0); Neutrophils % 58.6 %; Platelet Count 170 10^3/uL (130-400); RDW 12.2 % (11.7-14.6); RDW-SD 44.8 fL; WBC 9.48 10^3/uL (4.4-10.8)
[2024-01-08 06:17] LABS: Diff Comment Diff Reviewed; RBC Morphology Normal
--- NOTE | 2024-01-08 06:21 | DI.RAD_ITS ---
Exam(s) XR PORTABLE CHEST AP POST LINE EXAM: XR PORTABLE CHEST AP POST LINE CLINICAL HISTORY: Confirm central line placement TECHNIQUE: 2D digital imaging was performed of the chest. One image was obtained. An AP view was ob tained. COMPARISON: CR,XR XR PORTABLE CHEST AP from 12/17/[address] CHEST/ABD/PEL WO from 01/07/2024 FINDINGS: MEDIASTINUM: Normal. HEART: Normal. PULMONARY VASCULATURE: There is pulmonary venous congestion. LUNGS: There are bilateral hazy pulmonary opacities. PLEURAL SPACE: Moderate size bilateral pleural effusions are seen, left greater than right. BONE:Within normal limits for the patient's age. OTHER FINDINGS:There has been interval placement of a right subclavian central venous catheter. The tip is seen in the superior vena cava. No pneumothorax is identified. Atherosclerotic calcification is present. IMPRESSION: 1. There has been interval placement of a right subclavian central venous catheter. The tip is in go od position in the superior vena cava. 2. Findings suggestive of fluid overload. DATA REPOSITORY: RADIATION DOSE DELIVERED:
--- NOTE | 2024-01-08 06:31 | DI.VRAD_ITS ---
PROCEDURE INFORMATION: Exam: XR Chest Exam date and time: 01/08/2024 6:15 AM Age: 63 years old Clinical indication: Device placement; Other: Central line placement; Patient HX: Confirm placement TECHNIQUE: Imaging protocol: Radiologic exam of the chest. Views: 1 view. 1 view. Other technique: Imaging protocol: Radiologic exam of the chest. COMPARISON: CT CHEST/ABD/PEL WO 01/07/2024 9:44 PM FINDINGS: Tubes, catheters and devices: Right central venous catheter terminates in the expected location of the superior vena cava. Lungs: See below. Pleural spaces: Bilateral pleural effusions. Heart/Mediastinum: No cardiomegaly. Bones/joints: No acute abnormality. IMPRESSION: 1. Right central venous catheter as above. 2. Bilateral pleural effusions. Dictated and Authenticated by: Gladys Broderick MD. Ordering:JEANNIE Long MD
[2024-01-08 07:19] LABS: BUN 10 mg/dL (7-18); CREATININE 0.5 mg/dL (0.55-1.02); Calcium 8.4 mg/dL (8.5-10.1); Chloride 101 mmol/L (98-107); Estimated GFR 105.98 (mL/min/1.73m2); Glucose 75 mg/dL (74-106); Magnesium 1.8 mg/dL (1.8-2.4); Sodium 133 mmol/L (136-145)
[2024-01-08 07:27] LABS: Potassium 2.7 mmol/L (3.5-5.1)
--- NOTE | 2024-01-08 07:36 | W.SURGCON ---
Date of service: 01/08/24 Time of Service: 07:36 Assessment and Plan Assessment and plan (1) Alcohol abuse: Status: Chronic (2) Renal artery stenosis: Status: Acute (3) Hypotension: Status: Acute (4) Congestive heart failure: Status: Chronic (5) Coronary artery calcification seen on CAT scan: Status: Acute (6) Stenosis of right internal carotid artery: Status: Acute (7) Atherosclerosis: Status: Acute (8) PVD (peripheral vascular disease): Status: Chronic (9) Atherosclerosis of abdominal aorta: Status: Acute (10) Celiac artery stenosis: Status: Acute (11) Shock: Status: Acute Assessment and plan: Patient requires central venous venous access for pressors. She is a full code. She is obtunded and there is no family to give consent. Central line was placed About incident. -Bedside POCUS was done-she does have an enlarge and liver with a small amount of ascites. She does have portal venous hypertension. - There is no signs of any active bleeding. She had a small smear of stool that was dark brown. She has not been vomiting. Her hemoglobin has been stable. -Prognosis is poor. -Last time patient was in the hospital she would not address her as CODE STATUS is still a full code -She also has a left hip fracture. Etiology is unknown to this short story writer 60 minutes was spent with the patient today. (12) Weight loss, non-intentional: Status: Acute (13) Folate deficiency: Status: Acute (14) B12 deficiency: Status: Acute (15) Protein malnutrition: Status: Acute (16) Fluid overload: Status: Acute (17) Steatosis: Status: Acute (18) Portal hypertensive gastropathy: Status: Acute (19) Alcoholic cirrhosis of liver: Status: Acute (20) Gastric wall thickening: Status: Acute (21) Superior mesenteric artery stenosis: Status: Acute (22) Acute kidney injury: Status: Resolved (23) Elevated ferritin: Status: Acute (24) Cellulitis of left leg: Status: Acute (25) Severe sepsis: Status: Acute (26) Fracture of greater trochanter of right femur: Status: Acute (27) Cellulitis: Status: Acute (28) Lacerations of multiple sites of leg: Status: Acute (29) Fall: Status: Acute (30) Left upper extremity swelling: Status: Acute (31) Altered level of consciousness: Status: Acute (32) COPD (chronic obstructive pulmonary disease): Status: Chronic Qualifiers: COPD type: chronic bronchitis Chronic bronchitis type: mixed simple and mucopurulent Qualified Code(s): J41.8 - Mixed simple and mucopurulent chronic bronchitis (33) Ambulatory dysfunction: Status: Acute (34) Tobacco dependence syndrome: Status: Chronic History of Present Illness Narrative: Consult emergent for central line placement. Patient is obtunded and cannot give any information. No family available for consent. She is not on any blood thinners. Blood pressure is in the 60s. She does have celiac artery stenosis She is a longtime heavy drinker. On her last admission she was here with a large gastric ulcer and GI bleed. She is extremely edematous and third spaced. Review of Systems Unobtainable due to mental status [facility] All Active Problems (Updated 01/07/24 @ 15:48 by Angela Gaming APRN) Left upper extremity swelling (Acute) Altered level of consciousness (Acute) Protein malnutrition (Acute) Chronic pain (Chronic) Housing instability due to threat of eviction (Acute) Alcoholic cirrhosis of liver (Acute) Advanced care planning/counseling discussion (Acute) Hypoproteinemia (Acute) Insomnia (Acute) Discharge planning issues (Acute) Cellulitis (Acute) Chronic hyponatremia (Chronic) Fracture of greater trochanter of right femur (Acute) Hypotension (Acute) Cellulitis (Acute) Leg pain (Acute) COPD (chronic obstructive pulmonary disease) (Chronic) Hypomagnesemia (Acute) Weakness of neck (Acute) Elevated ferritin (Acute) Compression fracture of L1 lumbar vertebra (Acute) Steatosis (Acute) Mild Portal hypertensive gastropathy (Acute) Wound of right lower extremity (Acute) into the fat layer Superior mesenteric artery stenosis (Acute) Renal artery stenosis (Acute) Diverticulosis (Acute) Celiac artery stenosis (Acute) Atherosclerosis of abdominal aorta (Acute) Severe Coronary artery calcification seen on CAT scan (Acute) Gastritis (Acute) Lacerations of multiple sites of leg (Acute) Weakness (Acute) COPD with acute exacerbation (Acute) COPD (chronic obstructive pulmonary disease) (Chronic) Shortness of breath (Acute) Tobacco dependence syndrome (Chronic) Edema, peripheral (Acute) Cellulitis of left leg (Acute) Ambulatory dysfunction (Acute) Edema of both lower legs (Acute) Congestive heart failure (Chronic) COPD exacerbation (Acute) Severe sepsis (Acute) Prolonged QT interval (Acute) Respiratory failure (Acute) Sepsis (Acute) Shock (Acute) Hypomagnesemia (Acute) Difficulty walking (Acute) PVD (peripheral vascular disease) (Chronic) Acute hypokalemia (Acute) Alcoholic ketoacidosis (Acute) Laceration of scalp (Acute) Fall (Acute) Chronic left hip pain (Acute) Contusion of hip (Acute) Smoker (Acute) Closed fracture of left hip (Acute) Anxiety (Chronic) Cavitary lesion of lung (Acute) Tobacco use disorder (Chronic 01/28/14) Pleural effusion (Acute) Hypomagnesemia (Acute) Fluid overload (Acute) Chest wall muscle strain (Acute) Emphysema lung (Acute) Nicotine dependence, cigarettes, uncomplicated (Acute) Atherosclerosis (Acute) Gastric wall thickening (Acute) Stenosis of right internal carotid artery (Acute) Mass of upper lobe of right lung (Acute) Alcohol abuse (Chronic) Dehydration (Acute) Diarrhea (Acute) Hypomagnesemia (Chronic) B12 deficiency (Acute) Hypocalcemia (Chronic) Ascites (Acute) Chronic liver disease (Chronic) Weight loss, non-intentional (Acute) Early satiety (Acute) Folate deficiency (Acute) Hypomagnesemia (Acute) Hypokalemia (Acute) Leg pain (Acute) Bilateral leg ulcer (Acute) Medical History Hyperkalemia Duodenitis without hemorrhage Cellulitis GI bleeding Right upper quadrant abdominal pain Leg pain Hypokalemia Chest pain due to GERD Gastroenteritis Hypotension Macrocytic anemia Advanced care planning/counseling discussion Palliative care patient Pneumonia Pulmonary nodule COPD (chronic obstructive pulmonary disease) Hypomagnesemia Cachexia Hepatic fibrosis Ulcer of lower extremity Hair loss Vitamin D deficiency Chest pain Gastroesophageal reflux disease Hx pulmonary embolism COPD (chronic obstructive pulmonary disease) Chronic vomiting Malnutrition Frequent falls Bilateral leg pain Pancreatitis Diastolic dysfunction Folate deficiency anemia Ascites Bilateral lower extremity edema Unintentional weight loss Alcohol abuse Tobacco abuse Surgical History Closed intertrochanteric fracture of left hip s/p IMN fixation (05/18/23) History of esophagogastroduodenoscopy (~12/2023) punch biopsy, skin of ankle, right lateral (11/24/16) negative for malignancy, sparse inflammation and reactive blood vessels foot surgery (~2000) Ligation of fallopian tube (~1999) ENT/Nasal surgery (~2007) Family History Father Lung disease Cancer Lung Social History Smoking/Tobacco Use Status: Current every day Tobacco Type: cigarettes Tobacco: How many years used: 45 Quit status: considering quitting Second Hand Exposure: Yes Smoking risk assessment performed?: Yes Alcohol Intake: current Alcohol Intake frequency: 3 or more drinks per day Alcohol type: wine and hard liquor Counseling given: Yes Counseling provided: provider counseling Drug use: Never Substance use type: marijuana Housing: apartment Current gender identity: female Do you feel safe at home: Yes Do you feel safe in your relationship?: Yes Additional Social history: Lives alone in studio in [facility], 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 Grew up in [facility], sisters in area. History History Para 0 Hx # Term Pregnancies Multiple births Hx # Pregnancies Ectopic pregnancies AB induced Hx Number of Living Children AB spontaneous Exam Narrative Exam Narrative: Extremely third spaced and edematous. Lungs are clear and she is able to maintain her airway Systolic blood pressure is in the 60s POCUS exam shows a very enlarged in the liver with some abdominal ascites. Her IVC appears to be full and does not completely collapse with respiration. Extremity shows significant amount of bruising and 3+ pitting edema/anasarca throughout her entire body. She is a high risk for breakdown. I did not see her coccyx Results Last Vital Signs Temp 36.6 C 01/07/24 22:31 Pulse 79 01/08/24 06:57 Resp 10 L 01/08/24 06:57 BP 95/65 L 01/08/24 06:57 Pulse Ox 100 01/08/24 06:44 Labs 01/08/24 05:40 01/08/24 06:54 Labs: Laboratory Results - last 24 hr 01/07/24 01/07/24 01/07/24 17:28 21:10 21:21 WBC 6.75 RBC 3.48 L Hgb 11.9 Hct 35.9 L MCV 103 H MCH 34.2 H MCHC 33.1 RDW 19.2 H Plt Count 337 MPV 11.7 H Immature Gran % 0.9 Neutrophils % 77.4 Lymphocytes % 15.4 Monocytes % 5.6 Eosinophils % 0.4 Basophils % 0.3 Nucleated RBC % 0.0 Absolute Neutrophils 5.22 Absolute Lymphocytes 1.04 L Absolute Monocytes 0.38 Absolute Eosinophils 0.03 Absolute Basophils 0.02 RBC Morphology PT INR APTT D-Dimer VBG pH 7.47 H VBG pCO2 22 L VBG pO2 139 VBG HCO3 16 L VBG Total CO2 Not Applicable VBG O2 Saturation VBG Base Excess -8 L VBG Lactate 2.4 H* Cancelled Sodium 129 L Potassium 4.0 Chloride 99 Carbon Dioxide 19.9 L Anion Gap 10.1 BUN 10 Creatinine 0.6 Est GFR (CKD-EPI 2020) 101.42 Glucose 114 H Calcium 8.5 Magnesium Total Bilirubin 0.62 AST 37 ALT 18 Alkaline Phosphatase 213 H Ammonia 107 H Total Protein 5.5 L Albumin 1.4 L 01/07/24 01/08/24 01/08/24 21:30 05:40 06:54 WBC 9.48 RBC 3.60 L Hgb 12.1 Hct 35.6 L MCV 99 H D MCH 33.6 H MCHC 34.0 RDW 12.2 Plt Count 170 MPV 10.4 Immature Gran % 0.7 Neutrophils % 58.6 Lymphocytes % 22.0 Monocytes % 16.0 Eosinophils % 2.4 Basophils % 0.3 Nucleated RBC % 0.0 Absolute Neutrophils 5.54 Absolute Lymphocytes 2.09 Absolute Monocytes 1.52 H Absolute Eosinophils 0.23 Absolute Basophils 0.03 RBC Morphology Normal PT 11.0 INR 1.1 APTT 26.7 D-Dimer 889 H VBG pH VBG pCO2 VBG pO2 VBG HCO3 VBG Total CO2 VBG O2 Saturation VBG Base Excess VBG Lactate Sodium 133 L Potassium 2.7 L* D Chloride 101 Carbon Dioxide 25.0 Anion Gap 7.0 BUN 10 Creatinine 0.5 L Est GFR (CKD-EPI 2020) 105.98 Glucose 75 Calcium 8.4 L Magnesium 1.8 Total Bilirubin AST ALT Alkaline Phosphatase Ammonia Total Protein Albumin
--- NOTE | 2024-01-08 07:45 | W.PM.OP ---
Date of service: 01/08/24 Time of Service: 06:00 Operative Note Operative Note DATE OF PROCEDURE: 01/08/24 PRE-OP DIAGNOSIS: Sepsis and hypotension POST-OP DIAGNOSIS: same PROCEDURE: Right subclavian triple-lumen insertion SURGEON: Jessenia Damon ANESTHESIA TYPE: Local By Surgeon Refer to Anesthesia Record ESTIMATED BLOOD LOSS: 3 PATHOLOGY: none sent COMPLICATIONS: None Patient was transported to: ICU Patient's condition: critical Procedure Description: Central Line Procedure Note Indication: [_x] Hypotension/Sepsis/Need for Pressors [x_] Vascular Access [_] Dialysis Access [_] Suspected Central Line Infection [_] Line Malfunction [_] Other: Central Line Location: [_x] Right or [_] Left [_] Internal Jugular Vein or [_x] Subclavian Vein or [_] Femoral Vein Consent: [_] Consent was obtained from _ prior to the procedure. Indications, risks and benefits were discussed prior to the procedure. Patient is a full code. Placed under emergency conditions. There is no family for consent. PROCEDURE SUMMARY: A time out was performed. My hands were washed immediately prior to the procedure. I wore a surgical cap, mask with protective eyewear, full gown and sterile gloves throughout the procedure. The patient was placed in Trendelenburg position. The [_] Left [_]xRight [_X] neck [_] chest [_] groin was prepped using [_x] chlorhexidine scrub soln, ?and draped in sterile fashion using a three quarter sheet drape and sterile towels. Skin preparation was allowed to dry prior to skin puncture. Anatomic landmarks were identified. Anesthesia was achieved over the vein using 5cc 1% lidocaine. Using real-time ultrasound, with sterile probe cover and sterile gel, the introducer needle was inserted into the vein under direct ultrasound visualization. Venous blood was withdrawn. The syringe was removed and a guidewire was advanced into the introducer needle. The guidewire was visualized in the appropriate vein by ultrasound. A small incision was made at the skin surface with a scalpel and the introducer needle was exchanged for a dilator over the guidewire. After appropriate dilation was obtained, the dilator was exchanged over the wire for an [antimicrobial coated] _triple-lumen central venous catheter. The wire was removed and the catheter was sutured in place at _13 cm. A biopatch was placed at the insertion site. A sterile op-site was placed over the catheter and biopatch. The patient tolerated the procedure without any hemodynamic compromise. At time of procedure completion, all ports aspirated and flushed properly. Post-procedure chest x-ray : [_] Is pending at this time. [_x] Shows adequate positioning of the catheter for use.
[2024-01-08] MEDS: POTASSIUM CHLORIDE 10 MEQ/100 ML BAG 100 MEQ IVINF ×4 (08:25→12:24)
[2024-01-08] MEDS: Lactulose 20 GM/30 ML CUP 200 GM PR ×2 (10:36→15:00)
[2024-01-08] MEDS: Enoxaparin 40 MG/0.4 ML SYR SC (12:24)
--- NOTE | 2024-01-08 13:10 | PGE_ITS ---
Date of Service Date of service: 01/08/24 Time of Service: 13:10 Assessment and Plan Assessment and plan (1) Hypovolemic shock: Status: Acute Assessment and plan: -overnight 01/06 patient became obtunded and hypotensive which was untimely determined to be due to liver failure and hepatic encephalopathy -prior to hypotension she had anasarca and was given lasix with 2L UOP -however, shed developed hypotension and was placed on phenylepherine and has central line placed -she was on a max of 100mcg of phenylepherine which has since been weaned down to 40mcg with continued improvement in BP/MAP -prolonged discussion with patients sisters (see Subjective) -DNR/DNI but ok to cardiovert/shock if indicated as per patients signed COLST form from late December 2023 -No further escalation of care -if patient condition worsens, or she fails to improve over the next few days they are going to consider transition to CASH APPLICATIONS COORDINATOR (2) Hepatic encephalopathy: Status: Acute Assessment and plan: -secondary to liver failure -ammonia level was 107 PM 01/06 -continue TID rectal laculose (3) Liver failure, acute: Status: Acute Assessment and plan: -cause of hepatic encephalopthy and hypotension as noted above -patient carries history of EtOH cirrhosis and was actually on hospice care 6 years ago for end of life care, however she ended up improving and began drinking again shortly after (4) Alcoholic cirrhosis of liver: Status: Acute Assessment and plan: -as noted above (5) Cellulitis: Status: Acute Assessment and plan: -had been on Levaquin but completed course -Continue dressings per recommendation of wound care nurse -No evidence of osteomyelititis as per MRI bilat LE's Qualifiers: Site of cellulitis: extremity Site of cellulitis of extremity: lower extremity Laterality: unspecified laterality Qualified Code(s): L03.119 - Cellulitis of unspecified part of limb (6) Chronic hyponatremia: Status: Chronic Assessment and plan: -Previous sodium as low as 125 improved Na 129 -f/u AM BMP (7) Hypoglycemia: Status: Resolved Assessment and plan: -In the setting of previous hypoglycemia and change in mental status stat blood glucose was 69, up to 83 after 4 gm of surgar orally. Patient was also more awake, but not back to baseline -Dextrose 50% 25 gm X1 for repeated blood glucose at 70. -Fingerstick Q4 H (8) COPD (chronic obstructive pulmonary disease): Status: Chronic Assessment and plan: -On nicotine replacement therapy -Continue maintenance therapy with inhalers and as needed HFA therapy. Qualifiers: COPD type: emphysema Emphysema type: other Qualified Code(s): J43.8 - Other emphysema (9) Alcohol abuse: Status: Chronic Assessment and plan: -Denied history of withdrawal and trend labs with better diet. -Nutrition consult -Told to clear apartment d/t smoking by 01/25 (10) Tobacco use disorder: Status: Chronic Assessment and plan: -Continue Nicotine gum or transdermal patch PRN (11) Insomnia: Status: Acute Assessment and plan: -Continue melatonin at HS (12) Protein malnutrition: Status: Acute Assessment and plan: -d/t chronic poor nutritional status/alcohol use disorder -Nutrition consult - see note -Oral protein TID (13) PVD (peripheral vascular disease): Status: Chronic Assessment and plan: -Recommend f/u with vascular medicine (14) Discharge planning issues: Status: Acute Assessment and plan: -case management following for discharge planning -The patient reported eviction from apartment d/t rule breaking re:no smoking with 01/25 deadline to remove her belongings Subjective Subjective Interval history since last seen: Patient somnolent this AM. However, prolonged discussion was had with her two sisters, who expressed understanding of her current condition and that overnight she went into acute liver failure with hepatic encephalopathy and shock requiring pressor support. They were made aware of the recent COLST for that the patient had signed, and agreed that DNR/DNI with electrical cardioversion/shock (if indicated) would be within her wishes. Additionally, they said that they would not want any further escalation of care, and if she were to get worse or faile to improve that they would likely want to transition to CASH APPLICATIONS COORDINATOR status. Exam Narrative Exam Narrative: acutely ill female laying in bed appears older then stated age, somnolent, awakes briefly to verbal stimuli, heart RRR, lungs diminished in bilateral bases but otherwise clear, abdomen soft, non-tedner, non-distended, anasarca of b ilateral upper and lower extremities Objective Last Vital Signs Temp 97.5 F L 01/08/24 03:30 Pulse 82 01/08/24 13:01 Resp 13 01/08/24 13:01 BP 99/68 L 01/08/24 13:01 Pulse Ox 100 01/08/24 06:44 Laboratory Results - last 24 hr 01/07/24 01/07/24 01/07/24 17:28 21:10 21:21 WBC 6.75 RBC 3.48 L Hgb 11.9 Hct 35.9 L MCV 103 H MCH 34.2 H MCHC 33.1 RDW 19.2 H Plt Count 337 MPV 11.7 H Immature Gran % 0.9 Neutrophils % 77.4 Lymphocytes % 15.4 Monocytes % 5.6 Eosinophils % 0.4 Basophils % 0.3 Nucleated RBC % 0.0 Absolute Neutrophils 5.22 Absolute Lymphocytes 1.04 L Absolute Monocytes 0.38 Absolute Eosinophils 0.03 Absolute Basophils 0.02 RBC Morphology PT INR APTT D-Dimer VBG pH 7.47 H VBG pCO2 22 L VBG pO2 139 VBG HCO3 16 L VBG Total CO2 Not Applicable VBG O2 Saturation VBG Base Excess -8 L VBG Lactate 2.4 H* Cancelled Sodium 129 L Potassium 4.0 Chloride 99 Carbon Dioxide 19.9 L Anion Gap 10.1 BUN 10 Creatinine 0.6 Est GFR (CKD-EPI 2020) 101.42 Glucose 114 H Calcium 8.5 Magnesium Total Bilirubin 0.62 AST 37 ALT 18 Alkaline Phosphatase 213 H Ammonia 107 H Total Protein 5.5 L Albumin 1.4 L 01/07/24 01/08/24 01/08/24 21:30 05:40 06:54 WBC 9.48 RBC 3.60 L Hgb 12.1 Hct 35.6 L MCV 99 H D MCH 33.6 H MCHC 34.0 RDW 12.2 Plt Count 170 MPV 10.4 Immature Gran % 0.7 Neutrophils % 58.6 Lymphocytes % 22.0 Monocytes % 16.0 Eosinophils % 2.4 Basophils % 0.3 Nucleated RBC % 0.0 Absolute Neutrophils 5.54 Absolute Lymphocytes 2.09 Absolute Monocytes 1.52 H Absolute Eosinophils 0.23 Absolute Basophils 0.03 RBC Morphology Normal PT 11.0 INR 1.1 APTT 26.7 D-Dimer 889 H VBG pH VBG pCO2 VBG pO2 VBG HCO3 VBG Total CO2 VBG O2 Saturation VBG Base Excess VBG Lactate Sodium 133 L Potassium 2.7 L* D Chloride 101 Carbon Dioxide 25.0 Anion Gap 7.0 BUN 10 Creatinine 0.5 L Est GFR (CKD-EPI 2020) 105.98 Glucose 75 Calcium 8.4 L Magnesium 1.8 Total Bilirubin AST ALT Alkaline Phosphatase Ammonia Total Protein Albumin PAWSS Have you Been Recently Intoxicated or Drunk Within the Last 30 days?: Yes Have you Ever Experienced Previous Episodes of Alcohol Withdrawal?: No Have you ever Experienced Withdrawal Seizures?: No Have you ever Experienced Delirium Tremens(DT)s?: No Have you ever undergone Alcohol Rehabilitation Treatment (i.e, inpt ot outpatient treatment programs)?: No Have you ever Experienced Blackouts?: Yes Have you ever Combined Alcohol with other Downers within the last 90 days?: No Have you ever Combined Alcohol with any other Substance of Abuse during the last 90 days?: Yes Positive Blood Alcohol level on Presentation? [PCS.BAL]: Yes Evidence of Increased Autonomic Activity (i.e. HR>120, tremor, sweating, agitation, nausea)?: Yes Result: 6 Time Spent with Patient Time Spent with Patient: >50 minutes Time was spent: preparing to see the patient(eg.review tests), obtaining and/or reviewing separately otained hiistory, ordering medications,tests, procedures, referring, communicating with other health small animal caretaker, indepentently interpreting results, counseling the patient and care coordination
[2024-01-08] MEDS: Patch Removal 1 EACH TP (16:54)
[2024-01-08] MEDS: MORPHine 2 MG/ML SYR 1 MG IVP (17:07)
[2024-01-08] MEDS: Salt Supplement (BUFFERED) TAB 1 TAB PO (20:49)
[2024-01-08] MEDS: Protein Nutritional Supplement 16 GM 1 OUNCE PACKET PO (20:49)
[2024-01-08] MEDS: MORPHine 2 MG/ML SYR IVP (22:43)
[2024-01-08] MEDS: Prochlorperazine 10 MG/2 ML VIAL 5 MG IVP (23:02)
[2024-01-09] VITALS (13 sets, daily range): BP systolic 80–114; BP diastolic 52–91; PULSE 61–95; RESP 10–20; TEMP 35.9–36.4; O2SAT 94
[2024-01-09] MEDS: MORPHine 2 MG/ML SYR IVP ×2 (03:16→08:39)
[2024-01-09] MEDS: Dextrose 50%-Water 25 GM/50 ML SYR (05:51)
[2024-01-09] MEDS: Lidocaine 5% Patch 1 PATCH TP (06:02)
--- NOTE | 2024-01-09 08:21 | CMPROGNOTE_ITS ---
Date of service: 01/09/24 Time of Service: 08:21 Care Management Progress Note Progress Note Text Progress Note Text: Bonifacio was resting comfortably when CM met with her. Per RN, she has been mostly sleeping, and when she wakes up she has been stating that she hurts. Her family was visiting earlier, and discussed comfort measures with staff; Bonifacio was transitioned to comfort measures. She will likely remain at [facility] for end of life care. Palliative is consulted and will meet with her this afternoon. CM will continue to follow. Discharge Potential Discharge Needs: Other (SNF placement) Anticipated Barriers to Discharge: Bed availability and Medical Status Patient/Family Education Needs: Review discharge instructions, discuss Ask Me Three Transportation: Facility Transport Plan: Anticipate Bonifacio will transition to SNF vs return home when medically cleared, although she is currently in the ICU. She may transition to comfort measures, per her wishes, if she does not improve in the next couple of days. Her disposition will depend on her medical status. She will be seen by palliative care today. CM will continue to follow. SDOH(Care Management) Screening Will the Patient Participate in the Screening?: Yes Do you worry about having a steady place to live?: yes Problems where you live: no known problems In the past 12 months, have you had to go without electric, gas, oil or water in your home?: no Have you or anyone in your house had to go without enough food to eat?: yes Has lack of transportation kept you from medical appointments or from doing things needed for daily living?: no Has anyone in your support network made you feel unsafe for any reason?: no Health Related Social Needs Health related social needs: housing instability, housed, with risk of homelessness(Z59.811) and food insecurity(Z59.41) Health related social needs details: Pt states that she is being evicted from her house and is no longer able to care for self at home.
[2024-01-09] MEDS: Normal Saline Flush 10 ML SYR IVP ×2 (08:44→19:55)
[2024-01-09] MEDS: Thiamine 100 MG TAB 250 MG PO (08:45)
[2024-01-09] MEDS: Enoxaparin 40 MG/0.4 ML SYR SC (08:45)
[2024-01-09 10:24] LABS: Potassium 3.1 mmol/L (3.5-5.1)
--- NOTE | 2024-01-09 10:49 | PGE_ITS ---
Date of Service Date of service: 01/09/24 Time of Service: 10:49 Assessment and Plan Assessment and plan (1) Hypovolemic shock: Status: Acute Assessment and plan: -overnight 01/06 patient became obtunded and hypotensive which was untimely determined to be due to liver failure and hepatic encephalopathy -prior to hypotension she had anasarca and was given lasix with 2L UOP -however, shed developed hypotension and was placed on phenylepherine and has central line placed vasopressors have been weaned off, at this point we will not restart them. I will dc telemetry monitoring, dc routine vitals and transition to HUMAN RESOURCES VICE PRESIDENT status. she can be moved out of ICU to med/surg (2) Hepatic encephalopathy: Status: Acute Assessment and plan: -secondary to liver failure -ammonia level was 107 PM 01/06 ammonia level has not been rechecked since 01/06 however she seems to be alert and oriented. she is refusing lactulose; at this point we can stop treatment and allow her liver condition to take its natural course (3) Liver failure, acute: Status: Acute Assessment and plan: -cause of hepatic encephalopthy and hypotension as noted above -patient carries history of EtOH cirrhosis and was actually on hospice care 6 years ago for end of life care, however she ended up improving and began drinking again shortly after While her acute liver decompensation may have been d/t her infection/sepsis superimposed upon chronic malnutrition, but I am in doubt of the dx of cirrhosis (see below under #4) (4) Alcoholic cirrhosis of liver: Status: Suspected Assessment and plan: a curious note is that her admission CTA of her chest/abdomen/pelvis the text of the report reported as normal density w/ no masses. similarly her CT chest/abdomen/pelvis 09/23/23 also reported normal liver density, and her protime has not been that elevated. although protein and albumin levels have been low for quite some time (over a year). She obviously is malnourished d/t her alcoholism. I would not put down alcoholic cirrhosis as a firm diagnosis. She would need either liver bx or fibrosure test or hepatic elastography or MRI of her liver. (5) Cellulitis: Status: Acute Assessment and plan: -had been on Levaquin but completed course -Continue dressings per recommendation of wound care nurse -No evidence of osteomyelititis as per MRI bilat LE's Qualifiers: Site of cellulitis: extremity Site of cellulitis of extremity: lower extremity Laterality: unspecified laterality Qualified Code(s): L03.119 - Cellulitis of unspecified part of limb (6) Chronic hyponatremia: Status: Chronic Assessment and plan: -Previous sodium as low as 125 improved Na 129 -f/u AM BMP (7) Hypoglycemia: Status: Resolved Assessment and plan: -In the setting of previous hypoglycemia and change in mental status stat blood glucose was 69, up to 83 after 4 gm of surgar orally. Patient was also more awake, but not back to baseline -Dextrose 50% 25 gm X1 for repeated blood glucose at 70. -Fingerstick Q4 H (8) COPD (chronic obstructive pulmonary disease): Status: Chronic Assessment and plan: -On nicotine replacement therapy -Continue maintenance therapy with inhalers and as needed HFA therapy. Qualifiers: COPD type: emphysema Emphysema type: other Qualified Code(s): J43.8 - Other emphysema (9) Alcohol abuse: Status: Chronic Assessment and plan: -Denied history of withdrawal and trend labs with better diet. -Nutrition consult -Told to clear apartment d/t smoking by 01/25 (10) Tobacco use disorder: Status: Chronic Assessment and plan: -Continue Nicotine gum or transdermal patch PRN (11) Insomnia: Status: Acute Assessment and plan: -Continue melatonin at HS (12) Protein malnutrition: Status: Acute Assessment and plan: -d/t chronic poor nutritional status/alcohol use disorder -Nutrition consult - see note -Oral protein TID (13) PVD (peripheral vascular disease): Status: Chronic Assessment and plan: -Recommend f/u with vascular medicine (14) Discharge planning issues: Status: Acute Assessment and plan: -case management following for discharge planning -The patient reported eviction from apartment d/t rule breaking re:no smoking with 01/25 deadline to remove her belongings Subjective Subjective Interval history since last seen: Bonifacio states that she hurts all over and is begging for medications to make her comfortable. she no longer wants active pursuit/treatment of her medical problems i.e. her liver disease, cellulitis, ascites etc. She is requesting palliative sedation. I told her that I can not do that but I am willing to put her on HUMAN RESOURCES VICE PRESIDENT status, stop all labs, tests, and work towards new goals of care, i.e. treat her anxiety and pain. I will request Palliative care to remain engaged in her care. Exam Narrative Exam Narrative: Bonifacio is tearful, but she seems oriented, and is engaging in conversation w/ her sister, Maricel. Bonifacio does not want the lacutlose, she does not want further labs or tests and is asking me to just make her comfortable LUngs: clear anteriorly Heart: RRR, rhythm per the monitor shows sinus w/ occasional PAC Abdomen: nontender Legs: no edema but bruising throughout her legs and arms, lower legs and feet are bandaged which I did not take down her dressing to examine this morning Objective Last Vital Signs Temp 35.9 C L 01/09/24 08:00 Pulse 75 01/09/24 08:00 Resp 18 01/09/24 08:00 BP 114/77 01/09/24 08:00 Pulse Ox 94 01/09/24 10:28 Laboratory Results - last 24 hr 01/08/24 01/09/24 08:45 10:10 ABG Sample Site Cancelled ABG pH Cancelled ABG pCO2 Cancelled ABG pO2 Cancelled ABG HCO3 Cancelled ABG Total CO2 Cancelled ABG O2 Saturation Cancelled ABG Base Excess Cancelled Oxygen Liter Flow Cancelled FiO2 Cancelled Potassium 3.1 L PAWSS Have you Been Recently Intoxicated or Drunk Within the Last 30 days?: Yes Have you Ever Experienced Previous Episodes of Alcohol Withdrawal?: No Have you ever Experienced Withdrawal Seizures?: No Have you ever Experienced Delirium Tremens(DT)s?: No Have you ever undergone Alcohol Rehabilitation Treatment (i.e, inpt ot outpatient treatment programs)?: No Have you ever Experienced Blackouts?: Yes Have you ever Combined Alcohol with other Downers within the last 90 days?: No Have you ever Combined Alcohol with any other Substance of Abuse during the last 90 days?: Yes Positive Blood Alcohol level on Presentation? [PCS.BAL]: Yes Evidence of Increased Autonomic Activity (i.e. HR>120, tremor, sweating, agitation, nausea)?: Yes Result: 6 Time Spent with Patient Time Spent with Patient: 35-49 minutes Time was spent: preparing to see the patient(eg.review tests), ordering medications,tests, procedures, referring, communicating with other health day care teacher, indepentently interpreting results, counseling the patient and care coordination
[2024-01-09] MEDS: MORPHine 4 MG/ML SYR IV/SC (12:32)
--- NOTE | 2024-01-09 15:00 | W.PC.ACHO ---
Registration Status: Primary Language: Preferred Language: ED Information & Data Chief Complaint [facility]Medical 12/29/23 21:42 Triage Note pt arrives via EMS c/o 02/0812/29/23 21:09 bilateral leg pain from knees down. has been present for 2 months. i can't take this anymore! both feel are weeping. pt states shes getting evicted and doesn't know what to do. N/V that started today, has not eaten since yesterday. +ETOH on arrival, last drink this evening. Medical / Surgical History (Last Reviewed 12/30/23 @ 03:36 by Juan Francisco Bennett) Hyperkalemia Duodenitis without hemorrhage Cellulitis GI bleeding Right upper quadrant abdominal pain Leg pain Hypokalemia Chest pain due to GERD Gastroenteritis Hypotension Macrocytic anemia Palliative care patient Pneumonia Pulmonary nodule COPD (chronic obstructive pulmonary disease) Hypomagnesemia Cachexia Hepatic fibrosis Ulcer of lower extremity Hair loss Vitamin D deficiency Chest pain Gastroesophageal reflux disease Hx pulmonary embolism COPD (chronic obstructive pulmonary disease) Chronic vomiting Malnutrition Frequent falls Bilateral leg pain Pancreatitis Diastolic dysfunction Folate deficiency anemia Ascites Bilateral lower extremity edema Unintentional weight loss Alcohol abuse Tobacco abuse (Last Reviewed 12/30/23 @ 03:36 by Juan Francisco Bennett) Closed intertrochanteric fracture of left hip History of esophagogastroduodenoscopy (~12/2023) punch biopsy, skin of ankle, right lateral (11/24/16) foot surgery (~2000) Ligation of fallopian tube (~1999) ENT/Nasal surgery (~2007) Most Recent Vital Signs Temperature 35.9 C L 01/09/24 08:00 Temperature Source Temporal Artery Scan 01/09/24 00:50 Pulse 61 01/09/24 12:01 Pulse Rhythm Regular 01/02/24 23:30 Pulse 73 01/09/24 12:01 Respiratory Rate 15 01/09/24 12:01 Respiratory Effort Non-Labored 01/07/24 22:31 Respiratory Depth Normal 01/07/24 22:10 Respiratory Pattern Normal 01/07/24 22:10 Blood Pressure 80/62 L 01/09/24 12:01 Blood Pressure Mean 69 01/09/24 12:01 Blood Pressure Position Supine 01/07/24 22:10 Pulse Oximetry 94 01/09/24 10:28 Oxygen Delivery Method Nasal Cannula 01/09/24 10:28 Oxygen Flow Rate 2 01/09/24 10:28 Pain Level 0 01/09/24 12:46 Comment RN notified of vitals 01/05/24 07:30 Allergies bacitracin (From Neosporin ([id number])) Allergy (Mild, Verified 12/29/23 21:14) localized redness neomycin (From Neosporin ([id number])) Allergy (Mild, Verified 12/29/23 21:14) localized redness polymyxin B (From Neosporin ([id number])) Allergy (Mild, Verified 12/29/23 21:14) localized redness Active Medications Generic Name Dose Route Start Last Admin Trade Name Freq PRN Reason Stop Dose Admin Acetaminophen 325 - 650 mg 12/30/23 05:22 01/06/24 20:01 Acetaminophen 325 Mg Tab PO 650 mg Q4H PRN PRN Administration Collagenase 0 gm 12/31/23 08:30 01/09/24 12:57 Collagenase 30 Gm Tube TP Not Given DAILY [facility] Diclofenac Sodium 0 gm 01/08/24 08:30 01/09/24 11:08 Diclofenac 1% Gel 100 Gm Tube TP Not Given QID SIVA Lidocaine 1 patch 01/08/24 06:00 01/09/24 06:02 Lidocaine 5% Patch TP 1 patch Q24H [facility] Administration Lidocaine HCl 6 ml 01/02/24 03:46 01/07/24 08:57 Lidocaine 2% Jelly 6 Ml Syr TP 6 ml DIRECTED PRN Administration wound care Miscellaneous 1 each 01/08/24 16:00 01/08/24 16:54 Patch Removal TP 1 each DAILY@1800 [facility] Administration Morphine Sulfate 4 mg 01/09/24 12:14 01/09/24 12:32 Morphine 4 Mg/Ml Syr IV/SC 4 mg Q4H PRN PRN Administration Multi-Ingredient Supplement 1 ounce 01/02/24 14:00 01/09/24 09:09 Protein Nutritional Supplement 16 Gm 1 Ounce Packet PO Not Given TID SIVA Nicotine 2 mg 12/30/23 01:24 01/03/24 08:43 Nicotine 2 Mg Lozg SUC 2 mg Q2H PRN PRN Administration Omeprazole 20 mg 01/02/24 07:30 01/09/24 08:47 Omeprazole 20 Mg Capcr PO Not Given DAILY@0730 SIVA Potassium Chloride/Sodium Chloride 1 tab 01/04/24 20:00 01/09/24 09:11 Salt Supplement (Buffered) Tab PO Not Given BID SIVA Prochlorperazine Edisylate 5 mg 01/01/24 15:58 01/08/24 23:02 Prochlorperazine 10 Mg/2 Ml Vial IVP 5 mg Q4H PRN PRN Administration Sodium Chloride 0 ml 12/30/23 05:22 01/08/24 03:37 Normal Saline Flush 10 Ml Syr IVP 20 ml PRN PRN Administration Sodium Chloride 0 ml 12/30/23 08:30 01/09/24 08:44 Normal Saline Flush 10 Ml Syr IVP 30 ml BID SIVA Administration Sodium Chloride 44 ml 01/05/24 17:08 01/05/24 17:58 Sodium Chloride-Nasal [place]-Adult 44 Ml Btl NS 2 spray QID PRN PRN Administration Thiamine HCl 250 mg 12/30/23 08:30 01/09/24 08:45 Thiamine 100 Mg Tab PO 250 mg DAILY SIVA Administration Tiotropium [place]/Olodaterol 2 puff 12/30/23 08:30 01/09/24 08:50 Tiotropium/Olodaterol 10 Puff Inhaler IH Not Given DAILY SIVA IV IV Catheter Type [Right Triple Lumen Subclavian Subclavian] IV Catheter Type [Left Forearm Saline Lock ] IV Catheter Type [Right Saline Lock Forearm] IV Catheter Type [Left Saline Lock Antecubital] IV Catheter Type [Right Upper Peripheral IV arm] IV Catheter Gauge [Right 20 Forearm] IV Catheter Gauge [Left 20 Antecubital] IV Catheter Gauge [Right Upper 18 arm] Diagnostics 01/09/24 01/08/24 Range/Units 10:10 08:45 ABG Sample Site Cancelled ABG pH Cancelled ABG pCO2 Cancelled ABG pO2 Cancelled ABG HCO3 Cancelled ABG Total CO2 Cancelled ABG O2 Saturation Cancelled ABG Base Excess Cancelled Oxygen Liter Flow Cancelled FiO2 Cancelled Potassium 3.1 L (3.5-5.1) mmol/L 01/07/24 22:30 Urine Culture - Preliminary Urine - Cath Hay Indwelling 01/07/24 21:30 Blood Culture - Preliminary Blood NO GROWTH 24 HOURS 01/07/24 21:10 Blood Culture - Preliminary Blood NO GROWTH 24 HOURS [id number] Documentation Fingerstick Glucose Start: 12/29/23 23:41 Freq: Status: Complete Protocol: Activity Type Activity Date Activity User E-sign Co-sign Detail Recorded Client Recorded Date Recorded By Document 12/30/23 04:55 BKG DAEMON(9) [id number] 12/30/23 04:56 BKG DAEMON(10) Fingerstick Glucose Start: 01/05/24 21:09 Freq: Status: Complete Protocol: Activity Type Activity Date Activity User E-sign Co-sign Detail Recorded Client Recorded Date Recorded By Document 01/07/24 15:20 BKG DAEMON(10) [id number] 01/07/24 15:26 BKG DAEMON(10) Fingerstick Glucose Start: 01/07/24 15:39 Freq: Q4H Status: Complete Protocol: Activity Type Activity Date Activity User E-sign Co-sign Detail Recorded Client Recorded Date Recorded By Document 01/07/24 17:06 BKG DAEMON(10) [id number] 01/07/24 17:07 BKG DAEMON(10) Fingerstick Glucose Start: 01/07/24 18:46 Freq: Q4H Status: Complete Protocol: Activity Type Activity Date Activity User E-sign Co-sign Detail Recorded Client Recorded Date Recorded By Document 01/09/24 09:23 BKG DAEMON(10) [id number] 01/09/24 09:24 BKG DAEMON(10) Intake and Output - 24 Hour Total 12/29/23 20:59 thru 01/09/24 12:27 Intake Total 69705.779 Output Total 8875 Balance 09683.779 Weight 64.41 [place]: [place] 11463.779 Oral 4950 Output: Urine 8575 Emesis 300 Other: Urine Color Yellow Urine Appearance Clear Urine Odor None Comment no urine in gravity bag, hay irrigated with 30 mL NS with no resistance, reconnected to bag, no output. bladder scanned for >250mL urine. Stool Size Small Stool Characteristics Soft Formed Brown Emesis Description Undigested Food Voiding Methods Bedpan Urinary Catheter Urinary Catheter Date of 01/07/24 Insertion [Urethral (Hay)] Time of insertion [Urethral ( 18:46 Hay)] Falls Risk Assessment History of Falls Previous History 01/07/24 22:10 Contributing Factors Confusion,Unstable, 01/07/24 22:10 Impairments,Incontinence Ambulatory Aids Uses ambulatory device + 01/07/24 22:10 Tubes/Lines None 01/07/24 22:10 Gait Evaluation W/any additional score 01/07/24 22:10 Cognition Cognitive impairment 01/07/24 22:10 Fall Total Score 92 01/07/24 22:10 Level of Risk Maximum Risk 01/07/24 22:10 Problems (Last Reviewed 12/30/23 @ 03:36 by Juan Francisco Bennett) Hypovolemic shock (Acute) Hepatic encephalopathy (Acute) Liver failure, acute (Acute) Left upper extremity swelling (Acute) Altered level of consciousness (Acute) Protein malnutrition (Acute) Chronic pain (Chronic) Housing instability due to threat of eviction (Acute) Advanced care planning/counseling discussion (Acute) Hypoproteinemia (Acute) Insomnia (Acute) Discharge planning issues (Acute) Cellulitis (Acute) Chronic hyponatremia (Chronic) Fracture of greater trochanter of right femur (Acute) Hypotension (Acute) Cellulitis (Acute) COPD (chronic obstructive pulmonary disease) (Chronic) Hypomagnesemia (Acute) Elevated ferritin (Acute) Steatosis (Acute) Portal hypertensive gastropathy (Acute) Wound of right lower extremity (Acute) Superior mesenteric artery stenosis (Acute) Renal artery stenosis (Acute) Celiac artery stenosis (Acute) Atherosclerosis of abdominal aorta (Acute) Coronary artery calcification seen on CAT scan (Acute) Lacerations of multiple sites of leg (Acute) COPD (chronic obstructive pulmonary disease) (Chronic) Tobacco dependence syndrome (Chronic) Cellulitis of left leg (Acute) Ambulatory dysfunction (Acute) Congestive heart failure (Chronic) Severe sepsis (Acute) Shock (Acute) PVD (peripheral vascular disease) (Chronic) Fall (Acute) Smoker (Acute) Tobacco use disorder (Chronic 01/28/14) Fluid overload (Acute) Atherosclerosis (Acute) Gastric wall thickening (Acute) Stenosis of right internal carotid artery (Acute) Alcohol abuse (Chronic) B12 deficiency (Acute) Weight loss, non-intentional (Acute) Folate deficiency (Acute) Bilateral leg ulcer (Acute) Notes 01/07/24 11:02 Nursing Notes by Mireille Del Real Nursing Note: Unable to give pt morning medications due to pt appearing somnolent. Provider notified. Will continue to monitor Initialized on 01/07/24 11:02 - END OF NOTE 01/03/24 19:13 Nursing Notes by Olena Madrigal Nursing Note:Bladder scanned for 750mL at 1830. Straight cathed per orders and 750mL out of clear yellow urine. Post void residual 140mL. Initialized on 01/03/24 19:13 - END OF NOTE 01/01/24 16:13 Nursing Notes by Moni Heredia [facility] faxed a Home Health Certification and Plan of Care for Leanna Wang to fill out. Leanna filled out the form and it was faxed back to [facility]. The form was then sent to [employer] for scanning. Nursing Note: Initialized on 01/01/24 16:13 - END OF NOTE 01/01/24 05:28 Nursing Notes by Jessie Doherty Nursing Note: 0528 - PATIENT WAS BLADDER SCANNED DUE TO NO VOID IN 24 HOURS. SCAN REVEALED 480CC URINE IN BLADDER. PATIENT DECLINED BED LOYOLA OR COMMODE. DENIES PAIN OR PRESSURE WHEN ABDOMEN PALPATED. Initialized on 01/01/24 05:28 - END OF NOTE 12/30/23 14:29 Nursing Notes by Nancy Dwyer Nursing Note: Patient refuses to move, refused therapy, states she needs to be heavily sedated if we expect her to move, MD aware. Initialized on 12/30/23 14:29 - END OF NOTE 12/30/23 13:34 Nursing Notes by Nancy Dwyer Nursing Note: Physical therapy to room to work with patient. Patient finally willing to take the ordered tylenol. She is slurring her words. She is making demands that are beyond nursings scope. manager money Umm at bedside. Patient does not understand why we can't get her into a new apartment, cloth her, and keep her until she can get a new apartment. She is being evicted and was given a 30day notice. Initialized on 12/30/23 13:34 - END OF NOTE 12/30/23 12:50 Nursing Notes by Nancy Dwyer Nursing Note:Refused meds, states, she can't possibly be expected to take pills, states she stopped taking all her meds months ago, pt moaning, yelling out, ouch, ouch, demanding we give her something for her pain. She was offered Tylenol and refused. Initialized on 12/30/23 12:50 - END OF NOTE 12/30/23 00:09 Nursing Notes by Tameka Frazier Referral faxed to [facility] to f/u week of 01/02/24 for leg wounds, referrals to [facility] and [facility].Nursing Note: Initialized on 12/30/23 00:09 - END OF NOTE v v v v v v v v v Sending and/or Receiving Nurses: Please use comment section below to note any information pertinent to the patient hand-off not included above. Information / Comments: Pt is drowsy oriented to self and place, went [employer] today and is receiving morphine and ativan for comfort, on 2L NC and VS are WNL. Q2 turns for skin care, pt has hya that is patent, poor appetite but is eating jello. pills were not given today due to drowsiness. pt is weak. appears to be able to make needs known at this time. Report received from: GEETA Felder
--- NOTE | 2024-01-09 17:27 | PCPN_ITS ---
Date of service: 01/09/24 Time of Service: 16:00 Assessment and Plan Assessment and plan (1) Hepatic encephalopathy: Status: Acute (2) Altered level of consciousness: Status: Acute (3) Protein malnutrition: Status: Acute (4) Chronic pain: Status: Chronic (5) Housing instability due to threat of eviction: Status: Acute (6) Alcoholic cirrhosis of liver: Status: Suspected (7) Advanced care planning/counseling discussion: Status: Acute Assessment and plan: spent 20 mins w/ACP - reviewing liver disease, sxs, comfort measures, treatment preferences (8) Hypoproteinemia: Status: Acute (9) Discharge planning issues: Status: Acute (10) Steatosis: Status: Acute (11) Celiac artery stenosis: Status: Acute (12) Renal artery stenosis: Status: Acute (13) Superior mesenteric artery stenosis: Status: Acute (14) Atherosclerosis of abdominal aorta: Status: Acute (15) Weakness: Status: Acute (16) Edema, peripheral: Status: Acute (17) Ambulatory dysfunction: Status: Acute (18) Palliative care encounter: Status: Acute (19) Comfort measures only status: Status: Acute Assessment and plan: Bonifacio will remain at [facility] at this time, with comfort focused care; see previous conversations regarding this decision. She confirms this preference today. She is agreeable to returning to the [facility] for EOL care as needed. - At this time her prognosis is difficult to predict, it does not appear she has active cirrhotic disease, however she does meet criteria for hospice with protein calorie malnutrition w/liver disease contributing. The next 48 hours will be telling on her life expectancy. If she remains stable, it is recommended to consider discharge to the [facility] for skilled EOL care. If she continues to decline, she should remain at [facility] through EOL. She is not safe for discharge w/o a primary caregiver. May consider discharge to family member on hospice if willing to sign on for primary caregiver. - CADD pump ordered via hospitalist, consider transition to hydromorphone if pain not well managed w/morphine - Miralax daily to continue BMs, consider rifaximin continuation at this time to reduce hepatic encephalopathy symptoms, which she is agreeable today; however, if confusion/agitation present, please do not shy away from using haldol or lorazepam for her comfort. - her COLST form from 8/26/24 does indicate a preference for NO compressions or intubation if her heart were to stop, this should be honored at this time, and we can reconsider completing a new COLST for DIRECTOR CLINICAL APPLICATIONS, DNR/I in future (if transferred or HCA present) - comfort order set ordered, Vice President Of Finance consult placed FATMATA for visit tonight if possible, left for conditioning room worker child protective investigator Subjective Subjective Interval history since last seen: Bonifacio has transitioned to DIRECTOR CLINICAL APPLICATIONS after several conversations w/providers and family. Her pain is her biggest complaint, it occurs all over, reports a shart burning p ain in abdomen during visit. She has been receiving morphine IV intermittent throughout her course at [facility], she is not completely sure, but does think it has been helping with her pain management She does not have an excess of fluid, she has never had a paracentesis. She has no swelling today. She does bruise easily. She does have an appetite, has been eating Jello most of today. She has reques tre a cheeseburger and fries for dinner tonight, which staff has ordered for her from [employer]. She has been remaining in bed multimedia authoring specialist d/t discomfort w/repositioning. It is her preference to remain there. She is concerned that medications that make her poop increase her need for using the bedpan, causing discomfort. But does agree that she needs to continue moving bowels. She does agree to having some confusion intermittently, forgetting names, etc. She is agreeable to receiving treatment for confusion suspected c/b hepatic encephalopathy be treated w/safest medications, escalating to more sedating medications if needed. She has been moving her bowels daily, small, soft and formed per chart review. Has been receiving Miralax PRN. Her sister Maricel visited earlier today. Her sister Oleg, whom she was estranged from also visited. She does not have any additional visitors scheduled for tonight and this makes her anxious, she would like someone to sit with her and read if possible. She is scared to be alone. She confirms her sister Annie is her HCA. She confirms her preference to focus only on comfort. She does not want ANY treatments aimed at sustaining life, only treatments focused on her comfort and symptom management. She does not want any labs drawn or monitoring of VS. She is happy with the care [facility] has provided to her. Exam Narrative Exam Narrative: General: 63 y/o F older appearing than stated age, lying in bed w/eyes closed, HOB elevated near upright; wakes easily to knock, pleasant. HEENT: hearing grossly WNL, normocephalic, atraumatic Resp: even and unlabored, speaks full sentences w/no resp changes; no cough, no audible wheeze GI: abdomen inspection WNL, non-tender to light palpation, no ascites noted Skin: did not conduct full skin exam; BUE scattered bruising throughout, central line and peripheral IVs present; BLE legs wrapped w/dressing Ext: no swelling to mid-lindo where dressings end; warm to touch Psych: tearful, fearful, MS grossly WNL, able to answer questions appropriately, states I am done a few different times; insight/judgment fair to limited today Objective Last Vital Signs Temp 96.6 F L 01/09/24 08:00 Pulse 61 01/09/24 12:01 Resp 15 01/09/24 12:01 BP 80/62 L 01/09/24 12:01 Pulse Ox 94 01/09/24 10:28 Laboratory Results - last 24 hr 01/09/24 10:10 Potassium 3.1 L
[2024-01-09] MEDS: MORPHine 250 MG in Normal Saline 245 ML IV (17:58)
[2024-01-09] MEDS: Patch Removal 1 EACH TP (18:07)
[2024-01-09] MEDS: LORazepam 1 MG TAB PO (19:17)
[2024-01-09] MEDS: Rifaximin 550 MG TAB PO (19:18)
[2024-01-10] MEDS: Rifaximin 550 MG TAB PO ×2 (09:09→20:20)
[2024-01-10] MEDS: Omeprazole 20 MG CAPCR PO (09:09)
--- NOTE | 2024-01-10 09:16 | W.NUTRFU ---
Date of service: 01/10/24 Time of Service: 09:16 Nutrition Note NOTE: transition to comfort measures noted. ONS nourishment has been discontinued - pt declined most of the time as well. Kitchen staff to support desired food at meals as requested. No significant nutrition intervention planned at this time. Time Spent in Nutritional Counseling and Treatment: 0 min
--- NOTE | 2024-01-10 09:24 | PGE_ITS ---
Date of Service Date of service: 01/10/24 Time of Service: Assessment and Plan Assessment and plan (1) Comfort measures only status: Status: Acute Assessment and plan: patient has opted to not pursue any further active interventions other than comfort measures. Overall her prognosis is poor given her malnutrition state, chronic liver disease (alcoholic steatosis), severe mesenteric and renal atherosclerosis. While I do not consider her imminent, I do consider her prognosis to be a matter of weeks. She should be referred to hospice and if she has no further decline over next 24 hours then she should either return to [facility] w/ hospice on consult or if a family member can provide primary care then dc to home w/ hospice would be appropriate depending on whether or not a family member can provide appropriate care. Palliative consult w/ Alfreda Frederick yesterday was appreciated. She and I did talk over this patient's case yesterday. (2) Hepatic encephalopathy: Status: Acute Assessment and plan: I added rifaxmin yesterday since the patient did not want her lactulose. I still think she ought to have some lactulose daily. (3) Steatosis: Status: Acute Assessment and plan: a diagnosis of cirrhosis was put on her chart. there is no evidence on CT or US for cirrhotic changes however she has evidence for fatty liver changes. She no doubt has alcoholic liver disease but it has not become cirrhotic yet. (4) Protein malnutrition: Status: Acute Assessment and plan: continue protein supplements. (5) Weakness: Status: Acute Assessment and plan: continue P.T. as tolerated. (6) Ambulatory dysfunction: Status: Acute (7) Chronic pain: Status: Chronic Assessment and plan: now on morphine CAD pump going at 1 mg/hr, this seems to be controlling her pain Qualifiers: Chronic pain type: chronic pain syndrome Qualified Code(s): G89.4 - Chronic pain syndrome (8) Celiac artery stenosis: Status: Acute (9) Renal artery stenosis: Status: Acute (10) Superior mesenteric artery stenosis: Status: Acute (11) Atherosclerosis of abdominal aorta: Status: Acute (12) Discharge planning issues: Status: Acute Assessment and plan: either dc to [facility] on hospice or home w/ hospice services depending on whether or not she can be managed by family at home. Subjective Subjective Interval history since last seen: Fannie appears tired but her pain is better controlled. Exam Narrative Exam Narrative: Ree is lying in bed in semi-Gibson position at 30 degrees, she is tired appearing but awakens easily and responds to questions appropriately Lungs: clear but diminished at the bases Heart: regular but w/ loud systolic murmur over the apex Abdomen: soft, nondistended, normal bowel sounds Legs: no edema both lower legs and ankles and feet are bandaged. I have asked nursing to notify me when they do her dressing changes so I can examine her legs more closely. Objective Last Vital Signs Temp 35.9 C L 01/09/24 08:00 Pulse 61 01/09/24 12:01 Resp 15 01/09/24 12:01 BP 80/62 L 01/09/24 12:01 Pulse Ox 94 01/09/24 10:28 Laboratory Results - last 24 hr 01/09/24 10:10 Potassium 3.1 L PAWSS Have you Been Recently Intoxicated or Drunk Within the Last 30 days?: Yes Have you Ever Experienced Previous Episodes of Alcohol Withdrawal?: No Have you ever Experienced Withdrawal Seizures?: No Have you ever Experienced Delirium Tremens(DT)s?: No Have you ever undergone Alcohol Rehabilitation Treatment (i.e, inpt ot outpatient treatment programs)?: No Have you ever Experienced Blackouts?: Yes Have you ever Combined Alcohol with other Downers within the last 90 days?: No Have you ever Combined Alcohol with any other Substance of Abuse during the last 90 days?: Yes Positive Blood Alcohol level on Presentation? [PCS.BAL]: Yes Evidence of Increased Autonomic Activity (i.e. HR>120, tremor, sweating, agitation, nausea)?: Yes Result: 6 Time Spent with Patient Time Spent with Patient: 25-34 minutes Time was spent: preparing to see the patient(eg.review tests), ordering medications,tests, procedures, referring, communicating with other health housekeeper child care, indepentently interpreting results and care coordination
[2024-01-10] MEDS: Normal Saline Flush 10 ML SYR IVP ×2 (09:32→20:16)
--- NOTE | 2024-01-10 10:04 | PDOC.CMPRO ---
Date of service: 01/10/24 Time of Service: 10:04 Care Management Progress Note Progress Note Text Progress Note Text: Bonifacio was semi-reclining in bed eating some soup when CM met with her. She has been started on a morphine infusion and CM asked if her pain was well controlled. At that time Bonifacio stated that she was still uncomfortable and asked if the dose could be increased. CM communicated the conversation to her nurse who went in to assess her. Bonifacio admitted to CM that she does not want to be alone; it makes her fearful. CM sat with her for a while as have several other staff members. Her nurse informed CM that volunteers were on their way to spend time with her as well. Bonifacio expressed a desire to return to [facility] if she is able. She stated she liked it there and would prefer it over other facilities. At this time her course is unclear and she will continue to be treated at [facility] for the time being. There are some financial considerations to transferring her to [facility] that need to be considered as well as her overall health status and needs. Discharge Potential Discharge Needs: Other (possible transfer to a SNF for end of life care) Anticipated Barriers to Discharge: Medical Status Patient/Family Education Needs: Review discharge instructions, discuss Ask Me Three Transportation: EMS Plan: Bonifacio has been transitioned to comfort care and is currently receiving IV morphine by infusion. She will likely either transfer to a SNF for end of life care or remain at [facility], depending on the course of her illness and response to the comfort measure in place. CM will follow and continue to support Bonifacio and her discharge needs. SDOH(Care Management) Screening Will the Patient Participate in the Screening?: Yes Do you worry about having a steady place to live?: yes Problems where you live: no known problems In the past 12 months, have you had to go without electric, gas, oil or water in your home?: no Have you or anyone in your house had to go without enough food to eat?: yes Has lack of transportation kept you from medical appointments or from doing things needed for daily living?: no Has anyone in your support network made you feel unsafe for any reason?: no Health Related Social Needs Health related social needs: housing instability, housed, with risk of homelessness(Z59.811) and food insecurity(Z59.41) Health related social needs details: Pt states that she is being evicted from her house and is no longer able to care for self at home.
[2024-01-10] MEDS: Collagenase 30 GM TUBE TP (13:42)
[2024-01-10] MEDS: Diclofenac 1% Gel 100 GM TUBE TP ×3 (13:42→20:21)
[2024-01-10] MEDS: Protein Nutritional Supplement 16 GM 1 OUNCE PACKET PO ×2 (13:48→20:20)
--- NOTE | 2024-01-10 14:36 | PCPN_ITS ---
Date of service: 01/10/24 Time of Service: 13:45 Assessment and Plan Assessment and plan (1) Palliative care encounter: Status: Acute Assessment and plan: Please see palliative care note for complete past history with palliative care. Hospitalist note for up to the date clinical status and yesterday's palliative care note. Patient appears to have adequate pain control except during dressing changes. She is very afraid to be left alone and this seems to be manifestation of anxiety (likely usually treated with alcohol). Sister confirms that anxiety is a huge issue for her when she is not drinking or smoking. Patient taking p.o. today. But she is refusing most of her oral medications. #Advance care planning/goals of care: Confirmed comfort measures only with percy jc. Patient is somewhat tangential about status and not able to tell me what she is hoping happens from here on. She says she would not want CPR or to be on any sort of machine such as a breathing machine or dialysis. She also tells me that what is most important for her is to have her pain treated. See HPI for discussion with sister. Based on discussion with patient (who is intermittently confused and only seems to have partial capacity today) and sister/surrogate Annie and documentation of [facility] hospitalistsCLAUDIA filled out: DNI/DNR, comfort focused treatment. #Pain: Good control except during dressing changes. Mentation actually slightly better today. But still low threshold for switching to hydromorphone in CADD pump (with hx liver dz) -Suggest: Writing for bolus of 1 mg morphine 30 minutes before dressing changes #ANxiety: Sister points out that this is major symptom for patient. When she is drinking she is fiercely independent. Now that she is not drinking, she is asking again and again not to be left alone. Hospital has arranged for Volunteers to spend time with her when possible and family is visiting as often as they can. Hospitalist understandably wants to avoid BZD's due to delayed clearance with liver disease. However I think anxiety is one of her major lifelong symptoms and has become more apparent now that she is not drinking. -Recommend starting with very low-dose lorazepam scheduled to see if this helps with anxiety (for example oral lorazepam 0.25 Q8H and titrating up as needed from there as needed). Can switch to IV as needed, but she is taking p.o. today. #LINUX UNIX ADMINISTRATOR: -Suggest stopping IV fluid (currently at 30 cc/hour) -If on LINUX UNIX ADMINISTRATOR, consider stopping scheduled thiamine, KCl supplements, multi supplement (patient has been refusing anyhow). Could consider keeping lactulose, rifaximin, MiraLAX (although she continues to refuse these as well) #Follow-up: Sister was asking if she could be present via telephone next time palliative care team met with patient. We will try to schedule this for later this week. PLEASE CALL US WITH QUESTIONS - (2) Comfort measures only status: Status: Acute (3) Hepatic encephalopathy: Status: Acute (4) Chronic pain: Status: Chronic Qualifiers: Chronic pain type: chronic pain syndrome Qualified Code(s): G89.4 - Chronic pain syndrome (5) Alcoholic cirrhosis of liver: Status: Suspected (6) Advanced care planning/counseling discussion: Status: Acute Subjective Subjective Interval history since last seen: Palliative visit with patient: -SHe dozes on and off throughout my 40 minute visit. Requests and eats a cup of soup and toast during my visit. -Staff reports a lot of pain with dressing changes (unclear if iven bolus prior to dressing changes. PC with sister and health surrogate Annie Champion: -She is not sure how much her sister understands. -Most important to her, her sister reports that having her anxiety and pain adequately controlled is the most important. -She notes that her sister says something different about what she wants every time she asks her. -I explained delirium and waxing and waning of confusion. -Sister remembers when she was surrogate back when Fannie was on hospice in 2017. Then Fannie got better and was able to walk out. Annie wonders if pt is going to rally and get better again. -Everyone in her family has seen her during this admission (even some who haven't seen her in a long time). -Sisters will be seeing her in the evenings after they are done babysitting their grandchildren. -We discussed discussion a few days ago when patient was in the ICU. Annie confirms that she and her sister would not want CPR or intubation. For now, continue comfort measures only. Hospitalist had changed status to DNI/DNR/LINUX UNIX ADMINISTRATOR on Tuesday, but did not fill out COLST form. Exam Narrative Exam Narrative: Thin elderly woman appearing older than stated age. Initially asked me to hold both her hands and stay with her I am so lonely do not leave me alone. Doses on and off. But seems to wake up after about 30 seconds. Eventually asked for soup and toast with butter and eats it before I complete my visit. Also request position changing which is done by myself and staff. Seems to be able to make her needs known today. She is not in pain. Oxygen is on, she has no obvious dyspnea or cough. Swal lowing without difficulty. Cannot tell me what day it is, how long she has been in the hospital. Does not recall being in the ICU. Not sure if her sister visited her today (sister says she last visited last night). Not oriented to day or date. Does know she is in the hospital. Objective Last Vital Signs Temp 35.9 C L 01/09/24 08:00 Pulse 61 01/09/24 12:01 Resp 15 01/09/24 12:01 BP 80/62 L 01/09/24 12:01 Pulse Ox 94 01/09/24 10:28
[2024-01-10] MEDS: LORazepam 0.5 MG TAB 0.25 MG PO (17:17)
[2024-01-10] MEDS: Salt Supplement (BUFFERED) TAB 1 TAB PO (20:20)
[2024-01-11] MEDS: LORazepam 0.5 MG TAB 0.25 MG PO ×3 (01:13→16:41)
[2024-01-11] MEDS: Normal Saline 1,000 ML 30 ML IV (03:31)
[2024-01-11] MEDS: Lidocaine 5% Patch 1 PATCH TP (06:22)
[2024-01-11] MEDS: Protein Nutritional Supplement 16 GM 1 OUNCE PACKET PO (07:35)
[2024-01-11] MEDS: Thiamine 100 MG TAB 250 MG PO (07:36)
[2024-01-11] MEDS: Polyethylene Glycol 3350 17 GM PACKET PO (07:36)
[2024-01-11] MEDS: Salt Supplement (BUFFERED) TAB 1 TAB PO (07:36)
[2024-01-11] MEDS: Omeprazole 20 MG CAPCR PO (07:36)
[2024-01-11] MEDS: Rifaximin 550 MG TAB PO (07:36)
[2024-01-11] MEDS: Normal Saline Flush 10 ML SYR IVP ×2 (07:37→21:57)
[2024-01-11] MEDS: Diclofenac 1% Gel 100 GM TUBE TP ×4 (08:26→21:58)
[2024-01-11] MEDS: Collagenase 30 GM TUBE TP (12:51)
[2024-01-11] MEDS: Prochlorperazine 10 MG/2 ML VIAL 5 MG IVP (13:39)
--- NOTE | 2024-01-11 16:32 | W.PALPGNOTE ---
Date of service: 01/11/24 Time of Service: 15:30 Assessment and Plan Assessment and plan (1) Palliative care encounter: Status: Acute Assessment and plan: PC will continue to follow Bonifacio while she remains hospitalized as needed, will plan for follow up check in at [facility] by Dr Hearn (2) Comfort measures only status: Status: Acute Assessment and plan: recommend honoring BUCKLE STRAP PUNCHER by - d/c'ing following orders: thiamine, rifaximim, collagenase, incentive spirometry, sequential device, salt tabs - consider adding potassium supplement (last labs indicated low potassium, could be contributing to discomfort) - changing O2 to PRN for comfort - consider wound care QOD vs daily, or PRN (dirty dressing, odor, patient request) - consider diuretic if fluid volume overloaded - furosemide 20mg PO to start, may increase PRN currently receiving fluids 30mL/hr to keep line patent for IV medications; recommend transition to orals as appropriate and d/c IVF/IVs if able, w/plan for discharge Tuesday w/no IV medications available at [facility] (3) Hepatic encephalopathy: Status: Acute Assessment and plan: continue lorazepam and haldol refused Miralax today; continue to offer daily no bowels in 2 days (4) Protein malnutrition: Status: Acute Assessment and plan: continue offering comfort foods (5) Chronic pain: Status: Chronic Assessment and plan: currently on morphine 1.5mg/hr basal rate w/0.5mg q15m PRN bolus - recommend increase bolus dose to 1mg - current order may be increased as needed, reviewed with nursing Plan to transition to fentanyl patch and oral hydromorphone tomorrow, using last 2 days MME for calculation Qualifiers: Chronic pain type: chronic pain syndrome Qualified Code(s): G89.4 - Chronic pain syndrome (6) Alcoholic cirrhosis of liver: Status: Suspected (7) Advanced care planning/counseling discussion: Status: Acute Assessment and plan: - Bonifacio demonstrated capacity to understanding she needed to pay her medical bill at the [facility] to return there. She would like to return to the [facility] for BUCKLE STRAP PUNCHER style care, and remain there through EOL. She is comfortable w/plan for discharge on Tuesday, to give time to plan safe discharge. Bonifacio has requested to be discharged to the [facility] consistently with several providers and family throughout this inpatient stay - Annie is willing to transport her there on Tuesday, with plan to allow her to have a cigarette on the way - Annie is her financial POA if/when she does not have capacity; she will have Tugi sign check this evening when she visits to pay the [facility] reviewed plan with Annie, Bonifacio, [facility] staff and CM all independently spent 25 mins w/ACP (8) Discharge planning issues: Status: Acute Assessment and plan: see above Plan for Tuesday afternoon, via private vehicle (may need ambulance, pending day of status), discharge to the [facility] to coordinate discharge (9) Cellulitis: Status: Acute Assessment and plan: BLE, sig pain source - continue 1mg bolus prior to woundcare, would recommend 15mins prior recommend reducing dressing changes to QOD for comfort reasons, if patient wishes. recommend d/c collagenase, as these wounds will not heal prior to EOL and is not medically necessary. Qualifiers: Laterality: unspecified laterality Site of cellulitis: extremity Site of cellulitis of extremity: lower extremity Qualified Code(s): L03.119 - Cellulitis of unspecified part of limb (10) Leg pain: Status: Acute Assessment and plan: as above (11) Weakness: Status: Acute Assessment and plan: bedbound per pt preference last few days, previously requiring transfer assistance (12) Edema of both lower legs: Status: Acute Assessment and plan: none present today on assessment consider furosemide 20mg PO PRN (13) PVD (peripheral vascular disease): Status: Chronic (14) Smoker: Status: Acute Assessment and plan: plan for cigarette on transportation to the [facility] I would urge the [place] to consider accommodating her preferenes to continue smoking, for comfort and sxs relief, if possible within the guidelines/policies at their facility (15) Anxiety: Status: Chronic Assessment and plan: continue scheduled lorazepam 0.25mg TID continue lorazepam 0.25mg q6h PRN (16) Fluid overload: Status: Acute Assessment and plan: Douglas catheter in place BUE 2+ pitting consider furosemide 20mg to start, increase PRN (17) Hypokalemia: Status: Acute Assessment and plan: recommend potassium supplementation per labs trends may be contributing to leg pains, discomfort Subjective Subjective Interval history since last seen: Bonifacio remains hospitalized at [facility], on comfort measures only. hospital Reiki and volunteer staff with Bonifacio throughout visit per staff: pain management is largely well controlled, increased pain w/dressing changes, but she seems to be tolerating these okay w/pre-medication and soaking dressings in saline prior to removal. remains on morphine pump, current rate 1.5mg/hr; her bolus dose is at 0.5mg, has only had prior to dressing changes today. - anxiety: she did start scheduled lorazepam 0.2mg q8h, and a 0.25 q6h PRN dose was added after she was having more anxiety. she continues to express that she doesn't want to be left alone, nursing reports increased neediness, wanting people to feed her and help more w/ADLs, bc it feels nice to be taken care of. previously she had been eating and participating in hygiene. - appetite: remains low, eating jello and soup most often, did have [employer] on Tuesday night. - BM: no bowels x2 days - Edema: increased edema, especially in arms; concern for ascites sxs w/swelling to knees earlier today - Douglas catheter in place, repositioned today w/good effect - Activity: has remaind bedbound for previous few days, per patient choice, previously had been transferring w/assistance per volunteer, Bonifacio had complained of stomach itchiness and was grimmacing prior to PC arrival, performing Reiki on abdomen at start of visit, which had seemed to provide comfort. breathing comfortably, speaking full sentces w/o SOB Bonifacio continues to express desire to be discharged to the [facility]. She would like to remain there through EoL. When asked about pain, she is someone tangential, I'm not really in pain, describes as discomfort, but then pain later. full body, legs and abdomen worse. does not wish to have bolus currently. She denies anxiety, feels comfortable at current moment She would like Annie to help her pay her bill at the [facility], Annie visiting [facility] She would like to smoke a cigarette prior to arriving at the [facility], previously was not allowed to smoke there. Call to Annie: she is visiting [facility], will have her sign check to pay bill at [facility]. She will plan on transporting Bonifacio to the [facility] via private vehicle on Tuesday afternoon, she is not available until afternoon Annie reports she is financial POA, if she does not have capacity; she reports her checks are in hospital with Tugi at this time Exam Narrative Exam Narrative: General: 63 y/o F older appearing than stated age, lying in bed throughout visit, Reiki being performed over abdomen on arrival; intermittently closes eyes, wakes easily to voice; grimace/furrowed brow w/light palpation BLE HEENT: hearing grossly WNL, normocephalic, atraumatic; sips 4x through straw WNL Resp: even and unlabored, speaks full sentences w/no resp changes; no cough, no audible wheeze GI: abdomen inspection WNL, non-tender and soft to light palpation, no ascites noted, slightly increased distention compared to Tuesday; Skin: did not conduct full skin exam; BUE scattered bruising throughout, central line and peripheral IVs present; BLE legs wrapped w/dressing Ext: BUE forearms/elbow 2+ pitting edema; legs wrapped, no swelling in toes, tender to light touch, erythemic; no swelling in legs noted Psych: cooperative, fatigued, does not know day of week, aware in hospital; insight/judgment fair; Objective Last Vital Signs Temp 96.6 F L 01/09/24 08:00 Pulse 61 01/09/24 12:01 Resp 15 01/09/24 12:01 BP 80/62 L 01/09/24 12:01 Pulse Ox 94 01/09/24 10:28 Objective Narrative Objective Narrative: Capacity regarding paying bill at [facility] in tact - understands she needs to pay bill prior to returning there, if does not pay bill, cannot go there. Do you want to be discharged to the [facility]? Yes, very much Do you know you have an outstanding bill at the [facility]? Yes What happens if you don't pay your bill? I can't go there Do you want to pay your bill? Yes Why? So I can be at the [facility] Would you like to spend your money to pay this bill? Yes, definitely Would you like Annie to help you pay this bill? Yes, please
--- NOTE | 2024-01-11 16:50 | CMPROGNOTE_ITS ---
Date of service: 01/11/24 Time of Service: 14:00 Care Management Progress Note Progress Note Text Progress Note Text: Bonifacio was lying in bed, eyes closed, and appeared very comfortable when CM met with her this afternoon. Her friend was present, and was performing Reiki on Johni. Bonifacio stated it was ok for CM to stay and talk. Bonifacio stated that she was still having some pain, but not quite as much. Bonifacio stated that her parents are waiting for her, she does not see them yet, but is looking forward to it. Bonifacio is maintaing, and efforts are ongoing for her transfer to [facility], later this week. Discharge Anticipated Barriers to Discharge: Bed availability Patient/Family Education Needs: Review discharge instructions, discuss Ask Me Three Transportation: Private vehicle (Bonifacio will transport in a private vehicle with her sister, Annie, to the [facility]. This was confirmed by Alfreda Frederick.) Plan: Anticipate that Bonifacio will be transferred to the [facility] later this week in a private vehicle with her sister. Bonifacio will continue on comfort measures and per the prescribed plan of care. SDOH(Care Management) Screening Will the Patient Participate in the Screening?: Yes Do you worry about having a steady place to live?: yes Problems where you live: no known problems In the past 12 months, have you had to go without electric, gas, oil or water in your home?: no Have you or anyone in your house had to go without enough food to eat?: yes Has lack of transportation kept you from medical appointments or from doing thi ngs needed for daily living?: no Has anyone in your support network made you feel unsafe for any reason?: no Health Related Social Needs Health related social needs: housing instability, housed, with risk of homelessness(Z59.811) and food insecurity(Z59.41) Health related social needs details: Pt states that she is being evicted from her house and is no longer able to care for self at home.
[2024-01-11] MEDS: Patch Removal 1 EACH TP (17:00)
--- NOTE | 2024-01-11 17:03 | CHAPLAIN ---
I did not visit with Fannie today, but met with her twice yesterday. She continues to be interactive with people when she is awake, and also nods of to sleeping at time during conversations. [facility]fort [facility] volunteers have been in yesterday and today to spend time with her.
--- NOTE | 2024-01-11 17:39 | W.PM.PROGNOT ---
Date of Service Date of service: 01/11/24 Time of Service: 17:39 Assessment and Plan Assessment and plan (1) Comfort measures only status: Status: Acute (2) Hepatic encephalopathy: Status: Acute (3) Steatosis: Status: Acute (4) Protein malnutrition: Status: Acute (5) Weakness: Status: Acute (6) Ambulatory dysfunction: Status: Acute (7) Chronic pain: Status: Chronic Qualifiers: Chronic pain type: chronic pain syndrome Qualified Code(s): G89.4 - Chronic pain syndrome (8) Celiac artery stenosis: Status: Acute (9) Renal artery stenosis: Status: Acute (10) Superior mesenteric artery stenosis: Status: Acute (11) Atherosclerosis of abdominal aorta: Status: Acute (12) Discharge planning issues: Status: Acute Assessment and plan: her morphine drip is being titrated for pain control and tomorrow we will make the conversion to combo of duragesic patch and oral hydromorphone tomorrow based on her 2 days of her MME dosing of morphine. Alfreda Frederick recommended dc a number of meds, all of which I agree are not needed but the rifaximin I think has been the one thing that has kept her hepatic encephalopathy under control and I do not feel this should be stopped. for putting her on K supplements, I think this is a moot point and is not contributing to her comfort and we will not be doing labs to assess adequate levels. However if we can stave off her hepatic encephalopathy, then this would contribute to her quality of life. I have stopped a lot of her other unnecessary treatments including IS, acapella, thiamine, collagenase (although I think this was helping in her wound care) and salt tabs and SCD. Subjective Subjective Interval history since last seen: Bonifacio seems to be in much better spirits today. Pain is controlled. She is visiting w/ one of the nurses from the ED who knows her well. Bonifacio is looking forward to returning to the [facility] on Tuesday which is the plan outlined by Palliative Medicine. See Alfreda Frederick note from today. Exam Narrative Exam Narrative: Bonifacio is sitting up in bed, she is alert and oriented, ask appropriate questions and makes appropriate comments She is smiling and seems cheerful. she denies any pain. Objective Last Vital Signs Temp 35.9 C L 01/09/24 08:00 Pulse 61 01/09/24 12:01 Resp 15 01/09/24 12:01 BP 80/62 L 01/09/24 12:01 Pulse Ox 94 01/09/24 10:28 PAWSS Have you Been Recently Intoxicated or Drunk Within the Last 30 days?: Yes Have you Ever Experienced Previous Episodes of Alcohol Withdrawal?: No Have you ever Experienced Withdrawal Seizures?: No Have you ever Experienced Delirium Tremens(DT)s?: No Have you ever undergone Alcohol Rehabilitation Treatment (i.e, inpt ot outpatient treatment programs)?: No Have you ever Experienced Blackouts?: Yes Have you ever Combined Alcohol with other Downers within the last 90 days?: No Have you ever Combined Alcohol with any other Substance of Abuse during the last 90 days?: Yes Positive Blood Alcohol level on Presentation? [PCS.BAL]: Yes Evidence of Increased Autonomic Activity (i.e. HR>120, tremor, sweating, agitation, nausea)?: Yes Result: 6 Time Spent with Patient Time Spent with Patient: <25 minutes Time was spent: preparing to see the patient(eg.review tests), ordering medications,tests, procedures, referring, communicating with other health medicare sales executive and care coordination
[2024-01-12] MEDS: Rifaximin 550 MG TAB PO ×2 (00:11→10:36)
[2024-01-12] MEDS: LORazepam 0.5 MG TAB 0.25 MG PO ×3 (00:11→10:36)
[2024-01-12] MEDS: Lidocaine 5% Patch 1 PATCH TP (06:00)
--- NOTE | 2024-01-12 10:32 | W.PALPGNOTE ---
Date of service: 01/12/24 Time of Service: 10:05 Assessment and Plan Assessment and plan (1) Palliative care encounter: Status: Acute Assessment and plan: Patient seems stable compared to when I last saw her 2 days ago. My impression is that she appears less anxious. Very hard to prognosticate in patients with liver dz. Dr. Altman has pointed out that her decline is more likely related to her other medical issues (severe valvualar disease, etc) which complicates prognostication. Since she does not appear to be imminently dying, and appears to be tolerating PO, while continuing for now on [employer], she will need to transitioned off IV medications. And I think this is possible. #Pain: Pt is not answering questions about whether pain better or not. She reports that the pain in her legs is [place]. The fact that she is not crying out in pain with any movement (as she was 2 weeks ago) and it is not the first thing she mentions, it appears her pain is better (although perhaps not optimally) controlled. Also, I suspect she is still having some prison EtOH withdrawal causing significant anxiety. Recommend: 1. Stop Morphine Infusion (time Zero) 2. Apply fentanyl patch 25 mcg at Time Zero. Note that this may be underdosing. Pt will need scheduled short acting opioid for the first 8+ hours and then as needed oral opioid. Consider increasing patch to 50 mcg after 72 hours if pain control not adequate or if still needing frequent PRN doses of hydromorphone. 3. Start Hydromorphone 1 mg ORAL at Time Zero, order every 4 hours for total of 2 doses scheduled (this is to cover short term opiate needs as fentanyl drug level slowly comes up to steady state. 4. Also order hydromorphone 1 mg every 2 hours as needed for breakthrough pain. Pt is likely to need theses additional doses, since I am erring on the side of underestimating initial dose of fentanyl and takes 24+ hours to become steady state. #Anxiety: -Recommend increasing lorazepam scheduled to 0.5 mg every 8 hours plus 0.25-0.5 mg every 4 hours as needed. #Nausea: Pt received one dose of prochlorperazine IV in the last 24 hours. Recommend switching to oral antiemetic as needed (oral prochlorperazine reccomedned over ondansetron by pharmacist) If patient is transferred to [facility] tomorrow, we will plan on following up there next week. PLZ call with questions. Discussed with Dr. Altman , who asked me to enter orders, done. (2) Comfort measures only status: Status: Acute (3) Hepatic encephalopathy: Status: Acute (4) Chronic pain: Status: Chronic Qualifiers: Chronic pain type: chronic pain syndrome Qualified Code(s): G89.4 - Chronic pain syndrome (5) Alcoholic cirrhosis of liver: Status: Suspected Subjective Subjective Interval history since last seen: Palliative Followup today: Patient eva historian this morning. She dozes off, almost always seconds after I ask her a question . Yet she is oriented to [facility], month, year. She does not answer most of my questions regarding pain and anxiety. Unable to have conversation with her about her understanding of her illness or her goals today, as she dozes off when I ask her questions. Unclear if this is to avoid answering these questions, as she immediately answers orientation questions and several other questions not pertaining to her health, pdispo plans, prognosis. Nursing staff reports that over the last 24 hours, she continues to seem needy, frequently asking to hold hands when staff in room. NOt appearing otherwise overly anxious. But seemed to sleep well last night. She has not received as extra doses of IV morphine or lorazepam. THey say she is eating and drinking small amounts. Volunteers have been with her for a few hours each evening, as she had asked not to be left alone. CM discussion: Pt will need to be off IV meds before being accepted at [facility]/SNF. See previous Palliative Care notes for additional hx. Objective Last Vital Signs Temp 35.9 C L 01/09/24 08:00 Pulse 61 01/09/24 12:01 Resp 15 01/09/24 12:01 BP 80/62 L 01/09/24 12:01 Pulse Ox 94 01/09/24 10:28
[2024-01-12] MEDS: Omeprazole 20 MG CAPCR PO (10:35)
[2024-01-12] MEDS: Protein Nutritional Supplement 16 GM 1 OUNCE PACKET PO (10:36)
[2024-01-12] MEDS: Polyethylene Glycol 3350 17 GM PACKET PO (10:36)
[2024-01-12] MEDS: Diclofenac 1% Gel 100 GM TUBE TP ×2 (10:37→17:32)
[2024-01-12] MEDS: Normal Saline Flush 10 ML SYR IVP ×2 (10:37→22:41)
--- NOTE | 2024-01-12 13:28 | PDOC.CMPRO ---
Date of service: 01/12/24 Time of Service: 13:29 Care Management Progress Note Progress Note Text Progress Note Text: Bonifacio was resting when CM met with her, and she easily aroused, but conversed minimally with CM. CM reviewed her discharge plan; she will transfer to the [facility] tomorrow for short term rehab. She expressed understanding of this plan, and stated that she is happy, as the [facility] was her first choice, but she will miss the staff at [facility]. CM assisted Bonifacio with a few bites of jello, at her request. CM communicated with admissions at the [facility], who requested an early discharge tomorrow, if possible. Bonifacio's sisters have helped to coordinate, including obtaining a check from Bonifacio to pay the balance she owed the [facility] in order for her to be accepted for admission tomorrow. CM will continue to follow. Discharge Potential Discharge Needs: Other (SNF) Anticipated Barriers to Discharge: Bed availability Patient/Family Education Needs: Review discharge instructions, discuss Ask Me Three Transportation: Private vehicle (sister will transport) Plan: Anticipate Bonifacio will go to the [facility] for short term rehab, which may transition to correction care. exterminator MARYAM is pending. She will likely transport via private vehicle by her sister, Elzbieta. She will follow up with her PCP and discharge plan of care. CM will continue to follow. SDOH(Care Management) Screening Will the Patient Participate in the Screening?: Yes Do you worry about having a steady place to live?: yes Problems where you live: no known problems In the past 12 months, have you had to go without electric, gas, oil or water in your home?: no Have you or anyone in your house had to go without enough food to eat?: yes Has lack of transportation kept you from medical appointments or from doing things needed for daily living?: no Has anyone in your support network made you feel unsafe for any reason?: no Health Related Social Needs Health related social needs: housing instability, housed, with risk of homelessness(Z59.811) and food insecurity(Z59.41) Health related social needs details: Pt states that she is being evicted from her house and is no longer able to care for self at home.
[2024-01-12] MEDS: fentaNYL 25 MCG PATCH TD (14:36)
[2024-01-12] MEDS: HYDROmorphone 2 MG TAB 1 MG PO ×2 (15:42→18:39)
--- NOTE | 2024-01-12 16:24 | PHA.REVIEW2 ---
Pharmacy Admission Review Admission Clinical Review Admission Pharmacy Review: Palliative care encounter (Acute) Comfort measures only status (Acute) Hypovolemic shock (Acute) Hepatic encephalopathy (Acute) Liver failure, acute (Acute) Left upper extremity swelling (Acute) Altered level of consciousness (Acute) Protein malnutrition (Acute) Housing instability due to threat of eviction (Acute) Advanced care planning/counseling discussion (Acute) Hypoproteinemia (Acute) Insomnia (Acute) Discharge planning issues (Acute) Cellulitis (Acute) Fracture of greater trochanter of right femur (Acute) Hypotension (Acute) Cellulitis (Acute) Leg pain (Acute) Hypomagnesemia (Acute) Elevated ferritin (Acute) Steatosis (Acute) Portal hypertensive gastropathy (Acute) Wound of right lower extremity (Acute) Superior mesenteric artery stenosis (Acute) Renal artery stenosis (Acute) Celiac artery stenosis (Acute) Atherosclerosis of abdominal aorta (Acute) Coronary artery calcification seen on CAT scan (Acute) Lacerations of multiple sites of leg (Acute) Weakness (Acute) Edema, peripheral (Acute) Cellulitis of left leg (Acute) Ambulatory dysfunction (Acute) Edema of both lower legs (Acute) Severe sepsis (Acute) Shock (Acute) Fall (Acute) Smoker (Acute) Fluid overload (Acute) Atherosclerosis (Acute) Gastric wall thickening (Acute) Stenosis of right internal carotid artery (Acute) B12 deficiency (Acute) Weight loss, non-intentional (Acute) Folate deficiency (Acute) Hypokalemia (Acute) Bilateral leg ulcer (Acute) bacitracin (From Neosporin ([id number])) Allergy (Mild, Verified 12/29/23 21:14) localized redness neomycin (From Neosporin ([id number])) Allergy (Mild, Verified 12/29/23 21:14) localized redness polymyxin B (From Neosporin ([id number])) Allergy (Mild, Verified 12/29/23 21:14) localized redness Resuscitation Status DNR/DNI Height 5 ft 8 in Weight 64.41 kg Pharmacy Admission Review Renal Dosing Renal Dosing: BUN 10 mg/dL (7-18) 01/08/24 06:54 Creatinine 0.5 mg/dL (0.55-1.02) L 01/08/24 06:54 Medications needing adjustments: Reviewed (crcl = 59, meds ok. pt does have hepatic impairment, monitor for dose adjustments - current meds ok) Anticoagulation Anticoagulation: Hgb 12.1 g/dL (11.2-15.7) 01/08/24 05:40 Hct 35.6 % (36.0-46.0) L 01/08/24 05:40 Plt Count 170 10^3/uL (130-400) 01/08/24 05:40 INR 1.1 (0.9-1.1) 01/07/24 21:30 Creatinine 0.5 mg/dL (0.55-1.02) L 01/08/24 06:54 DVT Prophylaxis: Reviewed (SCDs) Opiate Usage Evaluate Pain Scale/Pains Meds: Reviewed (morphine drip transitioned to fentanyl patch 25 mcg/hr + prn hydromorphone PO ) Scheduled Bowel Reg ordered if on Opiates?: Yes (tod miralax + prn's) Relevant Labs Relevant Labs: ESR 18 mm/hr (0-30) 12/29/23 22:15 Sodium 133 mmol/L (136-145) L 01/08/24 06:54 Potassium 3.1 mmol/L (3.5-5.1) L 01/09/24 10:10 Chloride 101 mmol/L (98-107) 01/08/24 06:54 Magnesium 1.8 mg/dL (1.8-2.4) 01/08/24 06:54 C-Reactive Protein 3.46 mg/dL (<or=0.5) H 01/04/24 06:55 Electrolytes, C-Reactive P, ESR: Reviewed (no daily labs, 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 Hazel) Home Meds Home Med List reviewed: Reviewed Current Meds Current Medication Order Review: Reviewed Comments: lorazepam increased from 0.25 mg q8h to 0.5 mg q8h + 0.25 mg q6h prn. pain meds transitioned to PO/transdermal (may need titration)
[2024-01-12] MEDS: LORazepam 0.5 MG TAB PO (17:32)
[2024-01-12] MEDS: Lidocaine Patch Removal 1 EACH TP (17:33)
[2024-01-12] MEDS: Lidocaine 2% Jelly 6 ML SYR TP (17:45)
[2024-01-12] MEDS: HYDROmorphone 2 MG/ML SYR 0.5 MG IVP (18:03)
--- NOTE | 2024-01-12 18:09 | PGE_ITS ---
Date of Service Date of service: 01/12/24 Time of Service: 18:09 Assessment and Plan Assessment and plan (1) Comfort measures only status: Status: Acute (2) Hepatic encephalopathy: Status: Acute (3) Steatosis: Status: Acute (4) Protein malnutrition: Status: Acute (5) Weakness: Status: Acute (6) Ambulatory dysfunction: Status: Acute (7) Chronic pain: Status: Chronic Qualifiers: Chronic pain type: chronic pain syndrome Qualified Code(s): G89.4 - Chronic pain syndrome (8) Celiac artery stenosis: Status: Acute (9) Renal artery stenosis: Status: Acute (10) Superior mesenteric artery stenosis: Status: Acute (11) Atherosclerosis of abdominal aorta: Status: Acute (12) Discharge planning issues: Status: Acute Assessment and plan: pain control now w/ duragesic patch 25 mcg/h q72, and hydromorphone 1 mg po q4h prn pain. Patient to transfer to [facility] tomorrow. Subjective Subjective Interval history since last seen: Fannie remains cheerful and more upbeat. She is looking forward to going to [facility] tomorrow. Her pain is reasonably controlled. Her pain regimen has been changed from morphine CAD pump to fentanyl patch and prn hydrocodone orally. Exam Narrative Exam Narrative: Patient is sitting up in bed, conversing w/ the child care lead teacher from her PCP practice; nursing is doing her dressing changes which causes her some pain, I asked nursing to medicate her w/ some iv dilaudid. Objective Last Vital Signs Temp 35.9 C L 01/09/24 08:00 Pulse 61 01/09/24 12:01 Resp 15 01/09/24 12:01 BP 80/62 L 01/09/24 12:01 Pulse Ox 94 01/09/24 10:28 PAWSS Have you Been Recently Intoxicated or Drunk Within the Last 30 days?: Yes Have you Ever Experienced Previous Episodes of Alcohol Withdrawal?: No Have you ever Experienced Withdrawal Seizures?: No Have you ever Experienced Delirium Tremens(DT)s?: No Have you ever undergone Alcohol Rehabilitation Treatment (i.e, inpt ot outpatient treatment programs)?: No Have you ever Experienced Blackouts?: Yes Have you ever Combined Alcohol with other Downers within the last 90 days?: No Have you ever Combined Alcohol with any other Substance of Abuse during the last 90 days?: Yes Positive Blood Alcohol level on Presentation? [PCS.BAL]: Yes Evidence of Increased Autonomic Activity (i.e. HR>120, tremor, sweating, agitation, nausea)?: Yes Result: 6 Time Spent with Patient Time Spent with Patient: <25 minutes Time was spent: counseling the patient and care coordination
--- NOTE | 2024-01-12 19:00 | NUR.NOTE ---
Nursing Note: All wound dressings changed per orders at this time, pt tolerated well after being premedicated.
[2024-01-13] MEDS: HYDROmorphone 2 MG TAB 1 MG PO ×2 (03:34→12:26)
[2024-01-13] MEDS: LORazepam 0.5 MG TAB 0.25 MG PO (03:35)
[2024-01-13] MEDS: Nicotine 2 MG LOZG SUC (04:04)
--- NOTE | 2024-01-13 10:14 | CMDISCH_ITS ---
Date of service: 01/13/24 Time of Service: 10:14 LACE Index Scoring Tool Questions: Length of Stay (in days): 14 or more Was the patient admitted via the E.D.?: Yes Comorbidities: Congestive Heart Failure, Chronic Pulmonary Disease and Liver or Renal Disease E.D. Visits: 21 Answers: Total Score: 19 Risk of Readmission: High Risk Care Management Discharge Plan Reason for Hospitalization: cellulitis Discharge Plan: Bonifacio will go to the [facility] for short term rehab for end of life care. She will transport via EMS, as she has not been able to ambulate out of bed. She will follow up with facility providers and her discharge plan of care. Her sister is supportive, and will meet her at the [facility] to assist with the transition. She is happy to be going to the [facility] today, and is appreciative of the care she has received at [facility]. Patient/Family Education Needs: Review discharge instructions and limitations, discussion of self care needs including ask me three and goals of care. Services Needed at Discharge: [facility] Facility ([facility]) and Transportation (EMS) SDOH Health Related Social Needs: Health related social needs risk of homeless, food ins ecurity Health related social needs details Pt states that she is being evicted from her house and is no longer able to care for self at home. Health related social needs: housing instability, housed, with risk of homelessness(Z59.811) and food insecurity(Z59.41) Health related social needs details: Pt states that she is being evicted from her house and is no longer able to care for self at home.
--- NOTE | 2024-01-13 10:15 | DSE_ITS ---
Date of service: 01/13/24 Time of Service: 10:15 DS: Diagnosis Discharge Diagnosis (1) Comfort measures only status: Status: Acute (2) Hepatic encephalopathy: Status: Acute (3) Steatosis: Status: Acute (4) Protein malnutrition: Status: Acute (5) Weakness: Status: Acute (6) Ambulatory dysfunction: Status: Acute (7) Chronic pain: Status: Chronic (8) Celiac artery stenosis: Status: Acute (9) Renal artery stenosis: Status: Acute (10) Superior mesenteric artery stenosis: Status: Acute (11) Atherosclerosis of abdominal aorta: Status: Acute (12) Discharge planning issues: Status: Acute Discharge Plan Disposition Patient Disposition: Nursing Home Facility(SNF) Condition: Deteriorating Discharge Details Reason For Visit: Cellulitis Admit Date/Time: 12/30/23 03:51 Admit Provider: Juan Francisco Benentt Attending Provider: Juan Francisco Bennett Primary Care Provider: MARIANO KEARNEY [place] [facility] Course Hospital Course: This is a 63-year-old female patient with a history of chronic alcoholism and poor nutrition. She presented with painful, non-healing leg ulcers with mixed jacinto infection and was readmitted after an earlier AMA discharge. She had been unable to ambulate, was weak, and had difficulty eating. Upon readmission, she was treated with IV vancomycin for her infections. During her hospital stay, she developed liver failure and hepatic encephalopathy, leading to obtundation and hypotension. Treatment included diuretics and phenylephrine, with her blood pressure improving after adjustment. She did not show acute alcohol withdrawal symptom. Her condition was complex, with significant pain, intermittent confusion, and poor appetite. She met with Palliative care. She expressed a clear preference for comfort-focused care and requested to avoid life-sustaining treatments, focusing instead on symptom management. Her prognosis is poor and the plan is to discharge to the [facility] for end-of-life care. Home Meds and New Rx's Prescriptions: New fentanyl 25 mcg/hr Patch 72 Hour 25 mcg transdermal Q72H Qty: 0 0RF carboxymethylcellulose sodium [Refresh Plus] 0.5 % Dropperette 1 drp OU PRN PRN (Reason: Dry/itchy eyes) Qty: 30 0RF Deep Sea Nasal 0.65 % Aerosol,Brilliant 2 spray NS QID PRN PRNQty: 44 0RF Xifaxan 550 mg Tablet 550 mg PO BID Qty: 0 0RF Phlexy-Vits 15 mg- 700 mcg Powder In Packet 1 packet PO TID Qty: 30 0RF diclofenac sodium 3 % Gel 1 applic topical QID Qty: 100 0RF prochlorperazine maleate 10 mg Tablet 10 mg PO Q12H PRN PRNQty: 0 0RF lorazepam 0.5 mg Tablet 0.5 mg PO Q8H Qty: 0 0RF lidocaine 5 % Adhesive Patch,Medicated 1 patch topical Q24H Qty: 0 0RF nicotine 21 mg/24 hr Patch 24 Hour 21 mg transdermal DAILY PRN PRNQty: 0 0RF nicotine (polacrilex) 2 mg Lozenge 2 mg SUC Q2H PRN PRNQty: 0 0RF Continued ipratropium-albuterol 0.5 mg-3 mg(2.5 mg base)/3 mL solution for nebulization 3 ml inhalation Q4H PRN (Reason: wheezing) Qty: 540 8RF albuterol sulfate 90 mcg/actuation HFA aerosol inhaler 2 puff inhalation Q6H PRN (Reason: shortness of breath or wheezing) Qty: 8.5 12RF thiamine HCl (vitamin B1) 250 mg tablet 250 mg PO DAILY gabapentin 300 mg capsule 300 mg PO TID Stiolto Respimat 2.5-2.5 mcg/actuation mist 2 puff inhalation Q24H Qty: 4 12RF loperamide [Imodium A-D] 1 mg/7.5 mL liquid 2 mg PO Q1-4H PRNQty: 120 0RF Rx Instructions: administer after each loose stool until symptoms controlled; do not exceed 16 mg per 24 hrs esomeprazole magnesium 20 mg capsule,delayed release(DR/EC) 20 mg PO DAILY Qty: 30 0RF sucralfate [Carafate] 1 gram tablet 1 g PO BID Qty: 60 0RF albuterol sulfate [Ventolin HFA] 90 mcg/actuation HFA aerosol inhaler 2 puff inhalation Q6H PRNQty: 6.7 0RF magnesium 250 mg tablet 250 mg PO DAILY Qty: 30 0RF gabapentin [Neurontin] 300 mg capsule 300 mg PO TID Qty: 90 0RF ketorolac 10 mg tablet 10 mg PO Q8H PRN (Reason: severe pain (scale score 7-10)) Qty: 3 0RF multivitamin [Multiple Vitamins] Tablet 1 tab PO DAILY Qty: 30 0RF omeprazole 40 mg capsule,delayed release(DR/EC) 40 mg PO DAILY potassium chloride [Klor-Con M20] 20 mEq Tablet,Er Particles/Crystals 40 meq PO DAILY Qty: 90 0RF magnesium oxide 400 mg (241.3 mg magnesium) Tablet 400 mg PO DAILY Qty: 90 0RF nicotine (polacrilex) 2 mg Lozenge 2 mg SUC Q2H PRN PRNQty: 120 3RF hydrocortisone 2.5 % cream 1 applic TOPICAL DAILY Patient Comments: APPLY TAKE OAA TWO TIMES A DAY NEEDED FOR 14 DAYS clotrimazole 1 % cream 1 applic topical BID Qty: 15 0RF Discontinued potassium chloride 20 mEq tablet extended release 20 meq PO DAILY Qty: 14 0RF prednisone 20 mg tablet 20 mg PO DAILY Qty: 4 0RF Discharge Instructions Referrals: MARIANO KEARNEY, EMPLOYEE RELATIONS SPECIALIST [Primary Care Provider] - Activity:: Activity as Tolerated Equipment/Supplies:: Oxygen (L/min Below) Diet:: As Tolerated Discharge Orders Discharge Orders: Discharge Order (Routine); Ordered 01/13/24 Ordered By: Janeth Pierce DS: Summary Time Spent with Patient providing and/or coordinating discharge services: Greater than 30 minutes Status at Discharge Functional status at discharge: wheelchair bound Overall status at discharge: patient is not back to baseline Mental Status: mental status grossly normal Speech and Movement: speech and movement normal Mood: congruent mood Affect: normal affect Quality:SDOH Health Related Social Needs: Health related social needs risk of homeless, food ins ecurity Health related social needs details Pt states that she is being evicted from her house and is no longer able to care for self at home. Health related social needs details: Pt states that she is being evicted from her house and is no longer able to care for self at home. Exam Const General: cooperative, no acute distress, frail appearing and ill appearing chronically Nutritional Appearance: thin Orientation: alert, awake and oriented x3 HENMT Head: normal to inspection, normocephalic and atraumatic Mouth: moist mucous membranes abnormal (Slightly dry) Eyes General: appearance normal, both eyes and all related structures Alignment and Position: alignment normal Conjunctivae: conjunctivae normal Sclera: sclerae normal EOM: EOM intact bilaterally Neck Neck: normal visual inspection and full ROM Resp Effort & Inspection: normal respiratory effort and able to speak in complete sentences Auscultation: clear to auscultation bilaterally Cardio Rate: regular rate Rhythm: regular rhythm GI Palpation: soft, not firm, no guarding and nontender Auscultation: normal bowel sounds Back/Spine/Pelvis Back: No back tenderness Skin Lesions: other (Dressings intact to bilateral lower extremities no erythema distally or pro) Neuro General: patient alert, patient awake, patient oriented x3 and moves all extremities Extrem General: normal to inspection, full ROM and edema (left greater than right) Psych Appearance: grossly normal Mental Status: mental status grossly normal Speech and Movement: speech and movement normal Mood: congruent mood Affect: normal affect DS: Data Vitals/I&O Vitals and I&O: Vital Signs Temperature 35.9 C L 01/09/24 08:00 Temperature Source Temporal Artery Scan 01/09/24 00:50 Pulse 61 01/09/24 12:01 Pulse Rhythm Regular 01/02/24 23:30 Pulse 73 01/09/24 12:01 Respiratory Rate 15 01/09/24 12:01 Respiratory Effort Non-Labored 01/07/24 22:31 Respiratory Depth Normal 01/07/24 22:10 Respiratory Pattern Normal 01/07/24 22:10 Blood Pressure 80/62 L 01/09/24 12:01 Blood Pressure Mean 69 01/09/24 12:01 Blood Pressure Position Supine 01/07/24 22:10 Pulse Oximetry 94 01/09/24 10:28 Oxygen Delivery Method Nasal Cannula 01/12/24 03:35 Oxygen Flow Rate 2 01/12/24 03:35 Pain Level 0 01/12/24 19:03 Comment RN notified of vitals 01/05/24 07:30 Intake & Output 01/12/24 01/12/24 01/13/24 11:59 23:59 11:59 Intake Total 68.967 / 68.967 230 / 230 Output Total 250 / 250 400 / 400 Balance -250 / -181.033 68.967 / -181.033 -170 / -170 Intake: IV 68.967 / 68.967 30 / 30 Oral 200 / 200 Output: Urine 250 / 250 400 / 400 Other: Urine Color Yellow Yellow Straw Urine Appearance Clear Clear Clear PFSH All Active Problems (Updated 01/10/24 @ 09:29 by Juan Altman MD) Palliative care encounter (Acute) Comfort measures only status (Acute) Hypovolemic shock (Acute) Hepatic encephalopathy (Acute) Liver failure, acute (Acute) Left upper extremity swelling (Acute) Altered level of consciousness (Acute) Protein malnutrition (Acute) Chronic pain (Chronic) Housing instability due to threat of eviction (Acute) Advanced care planning/counseling discussion (Acute) Hypoproteinemia (Acute) Insomnia (Acute) Discharge planning issues (Acute) Cellulitis (Acute) Chronic hyponatremia (Chronic) Fracture of greater trochanter of right femur (Acute) Hypotension (Acute) Cellulitis (Acute) Leg pain (Acute) COPD (chronic obstructive pulmonary disease) (Chronic) Hypomagnesemia (Acute) Weakness of neck (Acute) Elevated ferritin (Acute) Compression fracture of L1 lumbar vertebra (Acute) Steatosis (Acute) Mild Portal hypertensive gastropathy (Acute) Wound of right lower extremity (Acute) into the fat layer Superior mesenteric artery stenosis (Acute) Renal artery stenosis (Acute) Diverticulosis (Acute) Celiac artery stenosis (Acute) Atherosclerosis of abdominal aorta (Acute) Severe Coronary artery calcification seen on CAT scan (Acute) Gastritis (Acute) Lacerations of multiple sites of leg (Acute) Weakness (Acute) COPD with acute exacerbation (Acute) COPD (chronic obstructive pulmonary disease) (Chronic) Shortness of breath (Acute) Tobacco dependence syndrome (Chronic) Edema, peripheral (Acute) Cellulitis of left leg (Acute) Ambulatory dysfunction (Acute) Edema of both lower legs (Acute) Congestive heart failure (Chronic) COPD exacerbation (Acute) Severe sepsis (Acute) Prolonged QT interval (Acute) Respiratory failure (Acute) Sepsis (Acute) Shock (Acute) Hypomagnesemia (Acute) Difficulty walking (Acute) PVD (peripheral vascular disease) (Chronic) Acute hypokalemia (Acute) Alcoholic ketoacidosis (Acute) Laceration of scalp (Acute) Fall (Acute) Chronic left hip pain (Acute) Contusion of hip (Acute) Smoker (Acute) Closed fracture of left hip (Acute) Anxiety (Chronic) Cavitary lesion of lung (Acute) Tobacco use disorder (Chronic 01/28/14) Pleural effusion (Acute) Hypomagnesemia (Acute) Fluid overload (Acute) Chest wall muscle strain (Acute) Emphysema lung (Acute) Nicotine dependence, cigarettes, uncomplicated (Acute) Atherosclerosis (Acute) Gastric wall thickening (Acute) Stenosis of right internal carotid artery (Acute) Mass of upper lobe of right lung (Acute) Alcohol abuse (Chronic) Dehydration (Acute) Diarrhea (Acute) Hypomagnesemia (Chronic) B12 deficiency (Acute) Hypocalcemia (Chronic) Ascites (Acute) Chronic liver disease (Chronic) Weight loss, non-intentional (Acute) Early satiety (Acute) Folate deficiency (Acute) Hypomagnesemia (Acute) Hypokalemia (Acute) Leg pain (Acute) Bilateral leg ulcer (Acute) Medical History Hyperkalemia Duodenitis without hemorrhage Cellulitis GI bleeding Right upper quadrant abdominal pain Leg pain Hypokalemia Chest pain due to GERD Gastroenteritis Hypotension Macrocytic anemia Advanced care planning/counseling discussion Palliative care patient Pneumonia Pulmonary nodule COPD (chronic obstructive pulmonary disease) Hypomagnesemia Cachexia Hepatic fibrosis Ulcer of lower extremity Hair loss Vitamin D deficiency Chest pain Gastroesophageal reflux disease Hx pulmonary embolism COPD (chronic obstructive pulmonary disease) Chronic vomiting Malnutrition Frequent falls Bilateral leg pain Pancreatitis Diastolic dysfunction Folate deficiency anemia Ascites Bilateral lower extremity edema Unintentional weight loss Alcohol abuse Tobacco abuse Surgical History Closed intertrochanteric fracture of left hip s/p IMN fixation (05/18/23) History of esophagogastroduodenoscopy (~12/2023) punch biopsy, skin of ankle, right lateral (11/24/16) negative for malignancy, sparse inflammation and reactive blood vessels foot surgery (~2000) Ligation of fallopian tube (~1999) ENT/Nasal surgery (~2007) Family History Father Lung disease Cancer Lung Social History Smoking/Tobacco Use Status: Current every day Tobacco Type: cigarettes Tobacco: How many years used: 45 Quit status: considering quitting Second Hand Exposure: Yes Smoking risk assessment performed?: Yes Alcohol Intake: current Alcohol Intake frequency: 3 or more drinks per day Alcohol type: wine and hard liquor Counseling given: Yes Counseling provided: provider counseling Drug use: Never Substance use type: marijuana Housing: apartment Current gender identity: female Do you feel safe at home: Yes Do you feel safe in your relationship?: Yes Additional Social history: Lives alone in studio in [facility], 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 Grew up in [place], sisters in area. History History Para 0 Hx # Term Pregnancies Multiple births Hx # Pregnancies Ectopic pregnancies AB induced Hx Number of Living Children AB spontaneous Time Spent with Patient Time Spent with Patient: 45-69 minutes Time was spent: preparing to see the patient(eg.review tests), ordering medications,tests, procedures, referring, communicating with other health health care facility administrator, indepentently interpreting results, counseling the patient and care coordination
--- NOTE | 2024-01-13 12:06 | NUR.NOTE ---
Nursing Note: Called in to the [facility] and gave report to GEETA Soria
[2024-01-13] MEDS: LORazepam 0.5 MG TAB PO (12:25)
[2024-01-13] MEDS: Lidocaine 2% Jelly 6 ML SYR TP (12:32)
[2024-01-13 13:00] VITALS: O2SAT 94
== END 2024-01-13 14:26 | disposition skilled nursing facility (03) | DRG 602 ==
LOC: ER 12-30 04:24 → MS 12-30 05:10 → ICU 01-07 22:11 → MS 01-09 13:44
PROVIDERS: Family Medicine; Internal Medicine; Nurse Practitioner Acute Care; Nurse Practitioner Family; Student in an Organized Health Care Education/Training Program; Admitting Provider Family Medicine; Emergency Provider Student in an Organized Health Care Education/Training Program; PCP Nurse Practitioner Family; Visit Provider Family Medicine
DX: L03.115 Cellulitis of right lower limb (principal); K72.00 Acute and subacute hepatic failure without coma; R57.1 Hypovolemic shock; E87.1 Hypo-osmolality and hyponatremia; K76.6 Portal hypertension; L97.811 Non-pressure chronic ulcer of other part of right lower leg limited to breakdown of skin; L97.821 Non-pressure chronic ulcer of other part of left lower leg limited to breakdown of skin; E72.20 Disorder of urea cycle metabolism, unspecified; J90 Pleural effusion, not elsewhere classified; E46 Unspecified protein-calorie malnutrition; Z59.01 Sheltered homelessness; K55.1 Chronic vascular disorders of intestine; L03.116 Cellulitis of left lower limb; E16.2 Hypoglycemia, unspecified; F17.210 Nicotine dependence, cigarettes, uncomplicated; E83.42 Hypomagnesemia; E87.6 Hypokalemia; J43.8 Other emphysema; W19.XXXA Unspecified fall, initial encounter; S70.02XA Contusion of left hip, initial encounter; I73.9 Peripheral vascular disease, unspecified; K31.89 Other diseases of stomach and duodenum; J43.9 Emphysema, unspecified; F10.10 Alcohol abuse, uncomplicated; E87.5 Hyperkalemia; G47.00 Insomnia, unspecified; E77.8 Other disorders of glycoprotein metabolism; R91.1 Solitary pulmonary nodule; K21.9 Gastro-esophageal reflux disease without esophagitis; S81.811A Laceration without foreign body, right lower leg, initial encounter; I83.018 Varicose veins of right lower extremity with ulcer other part of lower leg; I83.028 Varicose veins of left lower extremity with ulcer other part of lower leg; L89.152 Pressure ulcer of sacral region, stage 2; L89.520 Pressure ulcer of left ankle, unstageable; L89.510 Pressure ulcer of right ankle, unstageable; M79.89 Other specified soft tissue disorders; R41.82 Altered mental status, unspecified; R60.0 Localized edema; K76.82 Hepatic encephalopathy; Z66 Do not resuscitate; K70.31 Alcoholic cirrhosis of liver with ascites; K76.0 Fatty (change of) liver, not elsewhere classified; I77.1 Stricture of artery; I70.1 Atherosclerosis of renal artery; I70.0 Atherosclerosis of aorta; Z51.5 Encounter for palliative care; G89.4 Chronic pain syndrome
CPT/HCPCS: 36556; 36410; 00123; 36415; 36416; 36569; 36592; 71045; 71250; 73206; 80048; 80053; 82805; 82962; 84145; 85027; 85652; 87040; 94640; 97110; 97163; 97530; 99285; J1650; 70450; 73720; 74176; 80320; 81003; 81015; 82140; 83605; 83735; 84132; 85025; 85379; 85610; 85730; 86140; 87086; 93005; 93010; 94664; 99223; 99231; 99232; 99233; 99239; 99291; J0713; J0780; J1170; J1885; J1940; J1956; J2060; J2270; J2371; J3372; J3475; J3480; J3490; P9047